=== PATIENT | male | born 1950 | race African-American/Black ===

== ENCOUNTER 2016-10-20 20:08 | Emergency (ER) | payer MEDICARE, MEDICAID ==
[2016-10-20 20:37] VITALS: BP 167/85
--- NOTE | 2016-10-20 22:05 | ED ---
Throat Pain/Nasal Congestion - HPI Summary HPI Summary: 66 y/o male with multiple comorbities as documented including renal failure presents with dry, itchy "tight" eyes x 3-4 days. patient denies copious drainage, + mild watery drainage. + blurred vision, difficult to open eyes due to pain, itchy sensation. + periorbital dryness of skin. Denies prior occurrance, no new drugs/ medications. Recent fistula formation R wrist, no complications. No other symptoms. - History of Current Complaint Chief Complaint: EDEyeProblem Time Seen by Provider: 10/20/16 21:17 Hx Obtained From: Patient Onset/Duration: Gradual Onset, Lasting Days, Still Present, Worse Since - worsening over time - Allergies/Home Medications Allergies/Adverse Reactions: Allergies Allergy/AdvReac Type Severity Reaction Status Date / Time Aspirin Allergy Unknown See Comment Verified 09/24/16 13:02 Hydromorphone [From Dilaudid] AdvReac Intermediate Nausea And Verified 09/24/16 13:02 Vomiting PMH/Surg Hx/FS Hx/Imm Hx Previously Healthy: No Endocrine/Hematology History: Reports: Hx Blood Transfusions, Hx Sickle Cell Disease - Was told had sickle cell at one point but denies, Hx Anemia Denies: Hx Anticoagulant Therapy, Hx Bone Marrow Disease, Hx Diabetes, Hx Thyroid Disease Cardiovascular History: Reports: Hx Angina, Hx Congestive Heart Failure, Hx Coronary Artery Disease, Hx Hypercholesterolemia, Hx Hypertension, Hx Peripheral Vascular Disease, Hx Syncope, Hx Valvular Heart Disease, Other Cardiovascular Problems/Disorders - IDDM W/DIALYSIS 3XPER WK Denies: Hx Cardiomegaly, Hx Pacemaker/ICD, Hx Rheumatic Fever Respiratory History: Reports: Hx Asthma, Hx Chronic Obstructive Pulmonary Disease (COPD), Hx Pleural Effusion, Hx Pneumonia, Other Respiratory Problems/ Disorders - SOB Denies: Hx Pulmonary Edema, Hx Pulmonary Embolism, Hx Sleep Apnea GI History: Reports: Hx Cirrhosis, Hx Ulcer, Other GI Disorders - peptic ulcer Denies: Hx Crohn's Disease, Hx Gastroesophageal Reflux Disease, Hx Hiatal Hernia, Hx Irritable Bowel, Hx Jaundice History: Reports: Hx Acute Renal Failure, Hx Chronic Renal Failure, Hx Dialysis, Hx Renal Disease - ON DIALYSIS, Other Problems/Disorders - end stage renal disease, on dialysis Denies: Hx Kidney Infection, Hx Kidney Stones Musculoskeletal History: Reports: Hx Arthritis, Hx Back Problems - chronic pain , Hx Orthopedic Injury Denies: Hx Rheumatoid Arthritis, Hx Bursitis, Hx Tendonitis, Other Musculoskeletal History Sensory History: Reports: Hx Contacts or Glasses, Hx Glaucoma, Hx Vision Problem Denies: Hx Cataracts Opthamlomology History: Reports: Hx Contacts or Glasses, Hx Glaucoma, Hx Vision Problem Denies: Hx Cataracts Neurological History: Reports: Hx Headaches, Hx Migraine, Other Neuro Impairments/Disorders - depression Denies: Hx Dementia, Hx Seizures Psychiatric History: Reports: Hx Anxiety, Hx Depression Denies: Hx Eating Disorder, Hx Panic Disorder, Hx of Violent Episodes Against Others, Hx Substance Abuse - Cancer History Hx Chemotherapy: No Hx Radiation Therapy: No Hx Palliative Cancer Treatment: No - Surgical History Surgery Procedure, Year, and Place: HERNIA REPAIR 2012. APPENDECTOMY 2000. LEFT ARM AV FISTULA/CAD - REMOVED. CABG 1 vessel, mitral & tricuspid valve repair March 02, 2014 AT [facility] CONDITIONAL 5 UPTO 3T. POWER PORT. Mitral and tricuspid valve repair Hx Anesthesia Reactions: No - Immunization History Date of Tetanus Vaccine: Unkown Date of Influenza Vaccine: 2015 Infectious Disease History: Yes Infectious Disease History: Reports: Hx Hepatitis, Hx of Known/Suspected MRSA - blood culture, thoracentesis, History Other Infectious Disease - Hepatitis C Denies: Hx Clostridium Difficile, Hx Human Immunodeficiency Virus (HIV), Hx Shingles, Hx Tuberculosis, Hx Known/Suspected VRE, Hx Known/Suspected VRSA, Traveled Outside the in Last 30 Days - Family History Known Family History: Positive: None, Cardiac Disease Family History: R & N/C - Social History Alcohol Use: None Alcohol Amount: former EtOH abuse Hx Substance Use: Yes Substance Use Type: Reports: Marijuana Substance Use Comment - Amount & Last Used: every day smokes one joint to help with back pain Hx Tobacco Use: Yes Smoking Status (MU): Former Smoker Type: Cigarettes Review of Systems Constitutional: Negative Positive: Photophobia, Blurred Vision, Drainage, Erythema ENT: Negative Cardiovascular: Negative Respiratory: Negative Gastrointestinal: Negative Genitourinary: Negative Musculoskeletal: Negative Skin: Negative Neurological: Negative Psychological: Normal All Other Systems Reviewed And Are Negative: Yes Physical Exam - Summary Physical Exam Summary: MCKAY PEN- 10 r EYE, 13 l EYE Fluroscein staining- negative B/L fundoscopic examination- minld AV nicking, no hemmorage, no papillodema Triage Information Reviewed: Yes Vital Signs On Initial Exam: Initial Vitals Temp Pulse Resp BP Pulse Ox 100 F 96 18 167/85 99 10/20/16 20:33 10/20/16 20:33 10/20/16 20:33 10/20/16 20:33 10/20/16 20:33 Vital Signs Reviewed: Yes Appearance: Positive: Well-Appearing, Well-Nourished, Pain Distress - mild Skin: Positive: Warm, Skin Color Reflects Adequate Perfusion Head/Face: Positive: Normal Head/Face Inspection Eyes: Positive: EOMI, KINGS, Conjunctiva Inflammed - diffuse bilateraly ENT: Positive: Hearing grossly normal Neck: Positive: Supple, Nontender, No Lymphadenopathy Diagnostics - Vital Signs Vital Signs Temp Pulse Resp BP Pulse Ox 10/20/16 20:33 100 F 96 18 167/85 99 - Laboratory Lab Statement: Any lab studies that have been ordered have been reviewed, and results considered in the medical decision making process. EENT Course/Dx - Course Course Of Treatment: negative fundo, fluro, mckay pen examination. Discussed with maged Call viral vs allergic conjunctivitis, tx with antihistamines ophtl. due to comorbitities and ophtl. ketoralac. Patient symptoms greatly inproved with medications, vision not blurred. Follow up with PCP within 2-3 days return to ER if symptoms return. - Differential Diagnoses Differential Diagnoses: Allergic Rhinitis, Glaucoma, Keratitis, Other - glaucoma - Diagnoses Provider Diagnoses: Conjunctivitis of both eyes Discharge - Discharge Plan Condition: Improved Disposition: HOME Prescriptions: Azelastine 0.05% (OPHTH)(NF) [Optivar 0.05% (NF)] 1 drop BOTH EYES BID #1 btl Ketorolac Tromethamine (Ophth) [Acuvail] 0.45 % OP Q8H PRN #1 woodrow PRN Reason: pain Patient Education Materials: Conjunctivitis (ED) Referrals: Octaviano Pratt MD [Primary Care Provider] - Additional Instructions: - Continue to use eye drops as directed - If symptoms worsen return to ER of follow up with primary physician - saline solution eye drops as needed for dry eye
[2016-10-21] MEDS ORDERED: KETOROLAC 0.4% BOTH EYES SCH (09:00)
[2016-10-21] MEDS ORDERED: Azelastine 0.05% (OPHTH)(NF) 6 ML BTL BOTH EYES SCH (09:00)
== END 2016-10-20 22:58 | disposition home or self-care (01) ==
LOC: ED 20:08
DX: H10.9 Unspecified conjunctivitis (principal); H53.149 Visual discomfort, unspecified; H53.8 Other visual disturbances; L53.9 Erythematous condition, unspecified; Z86.79 Personal history of other diseases of the circulatory system; Z87.09 Personal history of other diseases of the respiratory system; Z87.891 Personal history of nicotine dependence
CPT/HCPCS: 99282

== ENCOUNTER 2016-11-10 16:31 | Emergency (ER) | payer MEDICARE, MEDICAID ==
--- NOTE | 2016-11-10 17:29 | RAD ---
INDICATION: Short of breath COMPARISON: September 12, 2016 TECHNIQUE: An AP portable view obtained at 1725 hours is submitted. FINDINGS: Bones/Soft Tissues: There are no acute bony findings. There is sternotomy. There is a left-sided cardiac pacemaker. There is a double-lumen right-sided central venous catheter Cardiomediastinal: The cardiac silhouette is mildly prominent. Lungs: There is bibasilar airspace disease with small bilateral pleural effusions with worsening.. Pleura: Small bilateral pleural effusions as noted above.. Other: None IMPRESSION: BIBASILAR AIRSPACE DISEASE WITH SMALL BILATERAL PLEURAL EFFUSIONS. SUGGEST FOLLOW-UP.
[2016-11-10] MEDS ORDERED: hydrALAZINE IV* 20 MG/ML VIAL IV SLOW PU ONE (17:31)
[2016-11-10] MEDS ORDERED: Lisinopril TAB* 10 MG PO ONE (17:32)
[2016-11-10] MEDS ORDERED: Morphine INJ* 10 MG/ML 1 ML CARPUJECT IV ONE (17:32)
[2016-11-10 17:41] LABS: Hematocrit 23 % (42-52); Hemoglobin 7.3 g/dl (14.0-18.0); Mean Corpuscular HGB Conc 32 g/dl (31-36); Mean Corpuscular Hemoglobin 29 pg (27-31); Mean Corpuscular Volume 92 fL (80-94); Mean Platelet Volume 9 um3 (7.4-10.4); Red Cell Distribution Width 17 % (10.5-15); White Blood Count 3.6 10^3/ul (3.5-10.8)
[2016-11-10 17:53] LABS: Albumin 4.1 g/dL (3.2-5.2); BUN/Creatinine Ratio 3.8 (8-20); Calcium 8.9 mg/dL (8.6-10.3); EGFR African American 10.4 (>60); EGFR Non-African American 8.1 (>60); Globulin 3.6 g/dL (2-4); Potassium 4.4 mmol/L (3.5-5.0); Total Bilirubin 0.6 mg/dL (0.2-1.0); Total Protein 7.7 g/dL (6.4-8.9)
[2016-11-10 17:58] LABS: Troponin I 0.05 ng/mL (<0.04)
--- NOTE | 2016-11-10 19:09 | RAD ---
INDICATION: Pain and swelling. Right arm swelling. COMPARISON: None TECHNIQUE: Duplex interrogation of the upperextremity was performed. FINDINGS: Deep veins: The visualized jugular, visualized subclavian, axillary, brachial, radial, and ulnar veins are patent excluding deep venous thrombosis. There is normal compressibility, augmentation, and phasic flow. Superficial veins: There is thrombosis in the cephalic vein. This appears echogenic and may be chronic. The basilic vein is patent. Popliteal fossa:There is no evidence of a popliteal cyst. Soft tissues:There are no soft tissue abnormalities. Other: There is a new radial artery crossover dialysis fistula at the level of the wrist. The entire fistula is not interrogated. IMPRESSION: NO EVIDENCE OF DEEP VENOUS THROMBOSIS. ACUTE VERSUS CHRONIC SUPERFICIAL THROMBOPHLEBITIS.
[2016-11-10 20:03] VITALS: BP 164/112
[2016-11-10] MEDS ORDERED: Meclizine TAB* 12.5 MG PO ONE (20:26)
--- NOTE | 2016-11-10 21:46 | ED ---
Robbin Briones Michael, scribed for Favian Escalona MD on 11/10/16 at 1845 . HPI Chest Pain - HPI Summary HPI Summary: Prior records reviewed consolation with Dr. Messer February 2015 prior cardiac hx was reviewed in detail. CABG 2013 [facility] and cardiac catheterization february 2015. He had multiple admissions for chest pain. 66 y/o male was BIBA to the ED presenting with intermittent episodes of sharp chest pain that started today at 0900. The pt rates the chest pain as a 9 out of 10 on a pain assessment scale. The pain is aggravated with coughing and radiates to the right radial flank. He also c/o SOB, calf swelling and pain, migraine, fatigue, and photophobia. The pt denies bilat UE pain and jaw pain. The PMHx is significant for migraines and HTN. - History of Current Complaint Chief Complaint: EDChestPainROMI Time Seen by Provider: 11/10/16 16:50 Hx Obtained From: Patient, EMS, Medical Records Onset/Duration: Started Hours Ago, Still Present Timing: Intermittent Initial Severity: Moderate Current Severity: Moderate Pain Intensity: 7 Pain Scale Used: 0-10 Numeric Chest Pain Radiates: Yes Chest Pain Radiates To:: Flank Character: Sharp/Stabbing Aggravating Factor(s): Other: - coughing Alleviating Factor(s): Nothing Associated Signs and Symptoms: Positive: Negative - bilat UE pain. jaw pain., Chest Pain, Shortness of Breath, Calf Pain/Swelling, Other: - migraine. fatigue. photophobia. - Additional Pertinent History Primary Care Physician: [id number] - Allergy/Home Medications Allergies/Adverse Reactions: Allergies Allergy/AdvReac Type Severity Reaction Status Date / Time Aspirin Allergy Unknown See Comment Verified 09/24/16 13:02 Hydromorphone [From Dilaudid] AdvReac Intermediate Nausea And Verified 09/24/16 13:02 Vomiting PMH/Surg Hx/FS Hx/Imm Hx Endocrine/Hematology History: Reports: Hx Blood Transfusions, Hx Sickle Cell Disease - Was told had sickle cell at one point but denies, Hx Anemia Denies: Hx Anticoagulant Therapy, Hx Bone Marrow Disease, Hx Diabetes, Hx Thyroid Disease Cardiovascular History: Reports: Hx Angina, Hx Congestive Heart Failure, Hx Coronary Artery Disease, Hx Hypercholesterolemia, Hx Hypertension, Hx Peripheral Vascular Disease, Hx Syncope, Hx Valvular Heart Disease, Other Cardiovascular Problems/Disorders - IDDM W/DIALYSIS 3XPER WK Denies: Hx Cardiomegaly, Hx Pacemaker/ICD, Hx Rheumatic Fever Respiratory History: Reports: Hx Asthma, Hx Chronic Obstructive Pulmonary Disease (COPD), Hx Pleural Effusion, Hx Pneumonia, Other Respiratory Problems/ Disorders - SOB Denies: Hx Pulmonary Edema, Hx Pulmonary Embolism, Hx Sleep Apnea GI History: Reports: Hx Cirrhosis, Hx Ulcer, Other GI Disorders - peptic ulcer Denies: Hx Crohn's Disease, Hx Gastroesophageal Reflux Disease, Hx Hiatal Hernia, Hx Irritable Bowel, Hx Jaundice History: Reports: Hx Acute Renal Failure, Hx Chronic Renal Failure, Hx Dialysis, Hx Renal Disease - ON DIALYSIS, Other Problems/Disorders - end stage renal disease, on dialysis Denies: Hx Kidney Infection, Hx Kidney Stones Musculoskeletal History: Reports: Hx Arthritis, Hx Back Problems - chronic pain , Hx Orthopedic Injury Denies: Hx Rheumatoid Arthritis, Hx Bursitis, Hx Tendonitis, Other Musculoskeletal History Sensory History: Reports: Hx Contacts or Glasses, Hx Glaucoma, Hx Vision Problem Denies: Hx Cataracts Opthamlomology History: Reports: Hx Contacts or Glasses, Hx Glaucoma, Hx Vision Problem Denies: Hx Cataracts Neurological History: Reports: Hx Headaches, Hx Migraine, Other Neuro Impairments/Disorders - depression Denies: Hx Dementia, Hx Seizures Psychiatric History: Reports: Hx Anxiety, Hx Depression Denies: Hx Eating Disorder, Hx Panic Disorder, Hx of Violent Episodes Against Others, Hx Substance Abuse - Cancer History Hx Chemotherapy: No Hx Radiation Therapy: No Hx Palliative Cancer Treatment: No - Surgical History Surgery Procedure, Year, and Place: HERNIA REPAIR 2012. APPENDECTOMY 2000. LEFT ARM AV FISTULA/CAD - REMOVED. CABG 1 vessel, mitral & tricuspid valve repair March 02, 2014 AT [facility] CONDITIONAL 5 UPTO 3T. POWER PORT. Mitral and tricuspid valve repair Hx Anesthesia Reactions: No - Immunization History Date of Tetanus Vaccine: Unkown Date of Influenza Vaccine: 2015 Infectious Disease History: Yes Infectious Disease History: Reports: Hx Hepatitis, Hx of Known/Suspected MRSA - blood culture, thoracentesis, History Other Infectious Disease - Hepatitis C Denies: Hx Clostridium Difficile, Hx Human Immunodeficiency Virus (HIV), Hx Shingles, Hx Tuberculosis, Hx Known/Suspected VRE, Hx Known/Suspected VRSA, Traveled Outside the [place] in Last 30 Days - Family History Known Family History: Positive: Cardiac Disease, Hypertension, Other - CVA - Social History Occupation: Disabled Lives: Alone Alcohol Use: None Alcohol Amount: former EtOH abuse Hx Substance Use: Yes Substance Use Type: Reports: Marijuana Substance Use Comment - Amount & Last Used: every day smokes one joint to help with back pain Hx Tobacco Use: Yes Smoking Status (MU): Former Smoker Type: Cigarettes Review of Systems Positive: Fatigue. Negative: Fever Positive: Photophobia Positive: Chest Pain Positive: Shortness Of Breath Positive: Edema - calf and calf pain Neurological: Other - migraine All Other Systems Reviewed And Are Negative: Yes Physical Exam - Summary Physical Exam Summary: General: Comfortable, pleasant, alert HEENT: Moist mucosa Neck: soft, supple, no adenopathy, no edema Heart: S1, S2, RRR, no murmurs, rubs, or gallops Lungs: Clear to auscultation, breathing comfortable, no wheezes or rales Abdominal: Soft, flat, nontender Extremities: non pinning edema, diffuse right arm swelling-no erythema and not hot no calf tenderness Neuro: Alert and oriented x 3 Psych: Logical, coherent Triage Information Reviewed: Yes Vital Signs On Initial Exam: Initial Vitals Temp Pulse Resp BP Pulse Ox 98.7 F 87 20 166/115 100 11/10/16 16:50 11/10/16 16:50 11/10/16 16:50 11/10/16 16:50 11/10/16 16:50 Vital Signs Reviewed: Yes - [place] Coma Scale Coma Scale Total: 15 Diagnostics - Vital Signs Vital Signs Temp Pulse Resp BP Pulse Ox 11/10/16 17:06 88 20 166/115 100 11/10/16 17:00 88 24 100 11/10/16 16:51 91 21 100 11/10/16 16:50 98.7 F 87 20 166/115 100 - Laboratory Lab Results: Lab Results 11/10/16 11/10/16 Range/Units 16:55 16:55 WBC 3.6 (3.5-10.8) 10^3/ul RBC 2.50 L (4.0-5.4) 10^6/ul Hgb 7.3 L (14.0-18.0) g/dl Hct 23 L (42-52) % MCV 92 (80-94) fL MCH 29 (27-31) pg MCHC 32 (31-36) g/dl RDW 17 H (10.5-15) % Plt Count 112 L (150-450) 10^3/ul MPV 9 (7.4-10.4) um3 Neut % (Auto) 67.3 (38-83) % Lymph % (Auto) 15.5 L (25-47) % Fleming % (Auto) 14.9 H (1-9) % Eos % (Auto) 1.0 (0-6) % Baso % (Auto) 1.3 (0-2) % Absolute Neuts (auto) 2.4 (1.5-7.7) 10^3/ul Absolute Lymphs (auto) 0.6 L (1.0-4.8) 10^3/ul Absolute Monos (auto) 0.5 (0-0.8) 10^3/ul Absolute Eos (auto) 0 (0-0.6) 10^3/ul Absolute Basos (auto) 0 (0-0.2) 10^3/ul Absolute Nucleated RBC 0.01 10^3/ul Nucleated RBC % 0.2 Sodium 136 (133-145) mmol/L Potassium 4.4 (3.5-5.0) mmol/L Chloride 93 L (101-111) mmol/L Carbon Dioxide 35 H (22-32) mmol/L Anion Gap 8 (2-11) mmol/L BUN 26 H (6-24) mg/dL Creatinine 6.93 H (0.67-1.17) mg/dL Est GFR ( Amer) 10.4 (>60) Est GFR (Non-Af Amer) 8.1 (>60) BUN/Creatinine Ratio 3.8 L (8-20) Glucose 95 (70-100) mg/dL Calcium 8.9 (8.6-10.3) mg/dL Total Bilirubin 0.60 (0.2-1.0) mg/dL AST 29 (13-39) U/L ALT 13 (7-52) U/L Alkaline Phosphatase 81 (34-104) U/L Troponin I 0.05 H* (<0.04) ng/mL Total Protein 7.7 (6.4-8.9) g/dL Albumin 4.1 (3.2-5.2) g/dL Globulin 3.6 (2-4) g/dL Albumin/Globulin Ratio 1.1 (1-3) Result Diagrams: 11/10/16 16:55 11/10/16 16:55 Lab Statement: Any lab studies that have been ordered have been reviewed, and results considered in the medical decision making process. - Radiology CXR Xray Interpretation: Positive (See Comments) - BIBASILAR AIRSPACE DISEASE WITH SMALL BILATERAL PLEURAL EFFUSIONS. SUGGEST FOLLOW-UP. Radiology Interpretation Completed By: Radiologist - EKG EKG EKG Interpretation: lateral leads T wave inversion. Consistent with mulitple EKGs in past EKG 1706 EKG Interpretation: EKG is unchanged from previous on 11/10/16 - Additional Comments Diagnostic Additional Comments: Venous Doppler Study: Radiologist: NO EVIDENCE OF DEEP VENOUS THROMBOSIS. ACUTE VERSUS CHRONIC SUPERFICIAL THROMBOPHLEBITIS. Chest Pain Course/Dx - Course Assessment/Plan: presents with right diffuse chest pain and upon further exam and questioning there is diffuse muscular pain. Tender across most of his chest. Two EKGs and two Troponin were unchanged. He is safe for discharge and will follow up with PCP. He presents hypertensive and we are treating but states he is compliant with meds. - Chest Pain Differential Diagnosis/HQI/PQRI: Acute NC, Angina, Aortic Aneurysm, CHF, Lower Respiratory Infection, Pulmonary Edema, Pulmonary Embolism - Diagnoses Provider Diagnoses: Chest pain, HTN (hypertension) Discharge - Discharge Plan Condition: Good Disposition: HOME Patient Education Materials: Chest Wall Pain (ED) Referrals: Octaviano Pratt MD [Primary Care Provider] - The documentation as recorded by the Robbin casey Michael accurately reflects the service I personally performed and the decisions made by me, Favian Escalona MD.
== END 2016-11-10 21:38 | disposition home or self-care (01) ==
LOC: ED 16:31
DX: R07.9 Chest pain, unspecified (principal); I10 Essential (primary) hypertension; R06.02 Shortness of breath; M79.606 Pain in leg, unspecified; M79.89 Other specified soft tissue disorders
CPT/HCPCS: 36415; 71010; 80053; 84484; 85025; 93005; 96374; 96375; 99282; A9270-GY; J0360; J2270

== ENCOUNTER 2016-11-12 10:20 | Inpatient (IN) | payer MEDICARE, MEDICAID ==
[2016-11-12] MEDS ORDERED: Morphine INJ* 4 MG/ML 1 ML CARPUJECT IV ONE (10:29)
[2016-11-12] MEDS ORDERED: Ondansetron INJ* 2 MG/ML VIAL IV ONE (10:30)
[2016-11-12 10:41] LABS: Hematocrit 26 % (42-52); Hemoglobin 8.4 g/dl (14.0-18.0); Mean Corpuscular HGB Conc 32 g/dl (31-36); Mean Corpuscular Hemoglobin 30 pg (27-31); Mean Corpuscular Volume 92 fL (80-94); Mean Platelet Volume 8 um3 (7.4-10.4); Red Blood Count 2.84 10^6/ul (4.0-5.4); Red Cell Distribution Width 17 % (10.5-15); White Blood Count 5.2 10^3/ul (3.5-10.8)
[2016-11-12 11:07] LABS: Troponin I 0.05 ng/mL (<0.04)
--- NOTE | 2016-11-12 11:17 | RAD ---
Indication: Chest pain. Single frontal view of the chest performed at 1045 hours was reviewed. Comparison is made with previous exam dated November 10, 2016. Cardiomegaly is noted. Interstitial edema consistent with fracture congestion is noted. Likely bibasilar atelectasis and small pleural effusions are noted. Overall no changes noted since November 10, 2016. No pneumothorax is noted. IMPRESSION: CARDIOMEGALY AND INTERSTITIAL EDEMA WITHOUT SIGNIFICANT CHANGE SINCE NOVEMBER 10, 2016. BIBASILAR ATELECTASIS AND PLEURAL EFFUSIONS ARE NOTED.
[2016-11-12 11:30] LABS: Total Bilirubin 0.7 mg/dL (0.2-1.0)
[2016-11-12 11:34] LABS: Albumin 4.5 g/dL (3.2-5.2); BUN/Creatinine Ratio 3.2 (8-20); Calcium 9.6 mg/dL (8.6-10.3); EGFR African American 20.7 (>60); EGFR Non-African American 16.1 (>60); Globulin 4.4 g/dL (2-4); Magnesium 2.2 mg/dL (1.9-2.7); Potassium 3.7 mmol/L (3.5-5.0); Total Protein 8.9 g/dL (6.4-8.9)
[2016-11-12 11:40] LABS: TSH (Thyroid Stimulating Horm) 2.89 mcIU/mL (0.34-5.60)
[2016-11-12] MEDS ORDERED: Ondansetron INJ* 2 MG/ML VIAL IV PRN (12:51)
[2016-11-12] MEDS ORDERED: Acetaminophen TAB* 325 MG PO PRN (12:51)
[2016-11-12] MEDS ORDERED: Morphine VIAL* 10 MG/ML 1 ML VIAL IV ONE (13:34)
[2016-11-12] MEDS ORDERED: Zolpidem TAB* 10 MG PO PRN (13:39)
[2016-11-12] MEDS ORDERED: Cyclobenzaprine TAB* 10 MG PO PRN (13:39)
[2016-11-12] MEDS ORDERED: LORazepam TAB(*) 0.5 MG PO PRN (13:39)
[2016-11-12] MEDS ORDERED: Morphine INJ* 4 MG/ML 1 ML CARPUJECT ONE (13:41)
[2016-11-12] MEDS ORDERED: hydrALAZINE IV* 20 MG/ML VIAL IV SLOW PU ONE (15:45)
[2016-11-12] MEDS: Gabapentin CAP(*) 300 MG PO SCH ×2 (16:02→21:07)
[2016-11-12] MEDS: hydrALAZINE TAB* 25 MG PO SCH ×2 (16:03→21:01)
[2016-11-12] MEDS: Calcium Acetate CAP* 667 MG PO SCH ×3 (16:03→21:03)
[2016-11-12] MEDS: Morphine INJ* 2 MG/ML 1 ML CARPUJECT IV PRN ×2 (16:04→20:56)
[2016-11-12] MEDS: Pancrelipase CAP* 5,000 UNITS CAP PO SCH ×3 (16:33→21:04)
[2016-11-12] MEDS: Heparin VIAL(*) 5000 UNITS/ML VIAL (FIVE THOUSAND) SUBCUT SCH ×2 (16:33→21:19)
--- NOTE | 2016-11-12 18:51 | HP ---
ADMISSION HISTORY AND PHYSICAL: DATE OF ADMISSION: 11/12/16 PRIMARY CARE PROVIDER: Dr. Octaviano Pratt. PANEL GLUER: Dr. Dalal. ATTENDING PROVIDER: Erwin Alejandra MD *(DICTATED BY ELEAZAR RUSSELL) CHIEF COMPLAINT: Syncope. HISTORY OF PRESENT ILLNESS: This is a 66-year-old gentleman with history of end - stage renal disease, on hemodialysis 3 times weekly, as well as hypertension, coronary artery disease, peripheral vascular disease, GERD, hepatitis C, anemia , and ischemic cardiomyopathy with last ejection fraction estimated at 35% to 40 %, who was transferred to the emergency department following his dialysis session earlier today. The patient got up after dialysis and was found down on the ground by one of the nurses who initiated CPR. The patient regained consciousness and does not fully remember all of the details. He reports that over the last couple of weeks, he has had decreased exercise tolerance, increased shortness of breath, intermittent lower extremity swelling, and subjective feeling of leg weakness. He reports chronic orthopnea and has been having intermittent chest pain. He is unable to state whether this occurs with just exercise or rest; it seems to be sporadic. The patient states that he had similar symptoms experiencing a syncopal episode after hemodialysis approximately 9 months ago, but he was apparently at home at that time and spent a considerable amount of time on the floor before he was transported to the emergency department. The patient feels that most likely his weakness in his legs that caused his fall. He does not recall any chest pain or difficulty breathing during his dialysis session. Review of his prior admissions shows that he has had frequent admissions for fluid overload after generally associated with missing dialysis. His last admission as such was August 03 of this past year. 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 PAST MEDICAL HISTORY: 1. End-stage renal disease, on hemodialysis 3 times weekly. 2. Hypertension. 3. Coronary artery disease, status post CABG. 4. Peripheral vascular disease. 5. GERD. 6. Hepatitis C. 7. Anemia. PAST SURGICAL HISTORY: 1. CABG. 2. Mitral valve and tricuspid valve repairs. 3. Appendectomy. HOME MEDICATIONS: 1. Acetaminophen 650 mg p.o. q.4 hours as needed for pain. 2. PhosLo capsules 3335 mg p.o. t.i.d. with meals. 3. Albuterol sulfate 2 puffs inhaled q.4 hours as needed for shortness of breath. 4. Nebulized albuterol. 5. Astelin 0.05% ophthalmic drop, 1 drop in both eyes twice daily. 6. Vitamin B complex with folic acid 1 tablet p.o. daily. 7. Carvedilol 25 mg p.o. b.i.d. 8. Sensipar 30 mg p.o. daily. 9. Flexeril 5 mg p.o. t.i.d. as needed. 10. Duloxetine 30 mg p.o. daily. 11. Diclofenac gel 1% applied topically twice daily as needed for pain. 12. Docusate 100 mg p.o. b.i.d. 13. Lexapro 10 mg p.o. daily. 14. Famotidine 20 mg p.o. daily. 15. Folic acid 0.5 mg p.o. daily. 16. Furosemide 20 mg p.o. daily. 17. Gabapentin 300 mg p.o. t.i.d. 18. Iron sucrose 100 mg IV q.2 weeks with dialysis. 19. Ketorolac ophthalmic solution 0.45% 1 drop in each eye every 8 hours as needed. 20. Lorazepam 0.5 mg p.o. twice daily as needed for anxiety. 21. Lisinopril 10 mg p.o. daily. 22. Amitiza 24 mcg p.o. b.i.d. 23. Meclizine 25 mg p.o. q.8 hours p.r.n. dizziness. 24. Nitroglycerin 0.4 mg sublingual q.5 minutes as needed for chest pain. 25. Omeprazole 40 mg p.o. b.i.d. 26. Ondansetron 4 mg p.o. q.8 hours as needed for nausea. 27. Oxycodone 15 mg p.o. q.4 hours as needed for pain. 28. Creon 12,000 units p.o. four times a day with meals. 29. Zantac 150 mg p.o. daily. 30. Simethicone 80 mg p.o. q.6 hours as needed. 31. Simvastatin 5 mg p.o. daily. 32. Sucroferric oxyhydroxide 2000 mg p.o. with meals. 33. Zolpidem 10 mg p.o. at bedtime. 34. Amlodipine 10 mg p.o. daily. 35. Hydralazine 25 mg p.o. t.i.d. SOCIAL HISTORY: The patient is a former smoker. Denies any regular alcohol consumption. He is currently living alone, but feels that he requires 24-hour assistance. REVIEW OF SYSTEMS: As noted above in HPI, otherwise negative. PHYSICAL EXAMINATION GENERAL: This is a middle-aged gentleman, who appears slightly older than his stated age who was quite anxious upon entering the room complaining of shortness of breath with very high respiratory rate as well as chest pain. Symptoms resolved with application of oxygen via nasal cannula just at 2 L. VITAL SIGNS: Initial vitals show a temperature of 98.9 degrees Fahrenheit, pulse 109 beats per minute, respiratory rate 16 per minute, oxygen saturation 95% on room air, and blood pressure 183/113 mmHg. HEENT: Head is normocephalic, atraumatic. Mucous membranes are pink and moist. RESPIRATORY: Lungs are clear to auscultation without wheezes, crackles, or rhonchi. CARDIOVASCULAR: There is a trace murmur appreciated but heart has regular rate and rhythm. ABDOMEN: Soft and nontender to palpation. EXTREMITIES: No lower extremity edema. PSYCH: The patient is alert and appropriately oriented, but appears to be anxious. DIAGNOSTIC STUDIES/LAB DATA: White blood cell count 5200, hemoglobin 8.4 g/dL, platelet count of 144,000. INR 1.38. PTT of 38.1. Comprehensive metabolic panel shows sodium of 134 mmol/L, potassium 3.7 mmol/L, serum bicarb of 30, BUN of 12, creatinine of 3.8, and estimated GFR of 16. Glucose of 81. Lactic acid 1.2. Magnesium 2.2. Transaminases and total bilirubin within normal limits. Troponin is 0.05. TSH of 2.89. Imaging: EKG shows sinus rhythm, meets voltage criteria for LVH. Chest x-ray shows cardiomegaly and interstitial edema without significant change when compared to last chest x-ray from 2 days ago, bibasilar atelectasis , and pleural effusions are also noted. Review of echocardiogram from August of 2015 shows left ventricular ejection fraction of 35% to 40% with depressed right ventricular function as well as mild -to- moderate mitral regurg. ASSESSMENT AND PLAN: This is a 66-year-old gentleman with extensive medical history including end-stage renal disease, on hemodialysis 3 times weekly; as well as coronary artery disease, status post coronary artery bypass graft and percutaneous coronary intervention; hypertension, peripheral vascular disease; gastroesophageal reflux disease; hepatitis C; anemia, who experienced what sounds to be a syncopal event after dialysis, although chest compressions were initiated in a short period of time. 1. Syncope - this seems very unlikely to be a sudden cardiac arrest. Lactic acid is within normal limits perfusion was maintained throughout even with adequate chest compressions, this seems to be quite unlikely. It is more likely that he experienced some acute syncopal event which may have just been due to hypovolemic state or fluid shift following dialysis. 2. Complaints of decreased exercise tolerance, lower extremity edema, and intermittent chest pain - the patient's acute chest pain is most likely due to the chest compressions that he received but it is difficult to tell whether he was having chest pain prior to a syncopal event, although this does not seem to be the case. With these complaints though and his known cardiomyopathy, I would recommend repeating an echocardiogram and nuclear stress test. We will cycle troponins and maintain continuous telemetry monitoring. 3. End-stage renal disease, on hemodialysis 3 times weekly, completed earlier today. 4. Coronary artery disease, status post coronary artery bypass graft and percutaneous coronary intervention. 5. Peripheral vascular disease. 6. Hepatitis C with what appears to be chronic liver failure based on chronically elevated INRs and thrombocytopenia as well as chronic anemia, but that could also be related to his kidney disease as well. 7. Hypertension - continue home antihypertensives. He is acutely hypertensive in the emergency department as well. 8. Chronic anemia - hemoglobin over the last couple of days has been lower than what seems to be his baseline. No obvious signs of bleeding and he is hypertensive rather than hypotensive making a bleeding episode much less likely. We will check stool for Hemoccult blood, however. 9. Peripheral vascular disease - continue statin and aspirin. 10. Chronic pain - continue home opiates. 11. Code status - the patient is full code. 12. DVT prophylaxis - will be with heparin 5000 units q.8 hours. 13. Healthcare proxy is the patient's brother, Enrique Templeton. DISPOSITION: The patient is being admitted to observation for what sounds to be a syncopal event with complaints of chest pain. Anticipate discharge tomorrow. We will request a Social Work consult as well as he does seem to have some concerns about his current housing situation. Perhaps, he would be better suited in a long- term care facility depending on what is chronic needs are. ELEAZAR RUSSELL CC: Dr. Octaviano Pratt; Dr. Dalal * [id number]/[facility] #: [id number] MTDD
[2016-11-12] MEDS: oxyCODONE TAB* 5 MG TAB PO PRN (18:54)
[2016-11-12] MEDS: Carvedilol TAB* 25 MG PO SCH (21:05)
[2016-11-12] MEDS: Omeprazole CAP* 20 MG PO SCH (21:06)
[2016-11-12] MEDS: Docusate CAP* 100 MG PO SCH (21:19)
[2016-11-13] MEDS: Heparin VIAL(*) 5000 UNITS/ML VIAL (FIVE THOUSAND) SUBCUT SCH ×3 (05:57→22:00)
[2016-11-13 06:09] LABS: Hematocrit 22 % (42-52); Hemoglobin 6.9 g/dl (14.0-18.0); Mean Corpuscular HGB Conc 32 g/dl (31-36); Mean Corpuscular Hemoglobin 29 pg (27-31); Mean Corpuscular Volume 92 fL (80-94); Mean Platelet Volume 9 um3 (7.4-10.4); Red Blood Count 2.34 10^6/ul (4.0-5.4); Red Cell Distribution Width 17 % (10.5-15); White Blood Count 4.1 10^3/ul (3.5-10.8)
[2016-11-13 06:12] LABS: Add Diff/Slide Review? Slide Review Added; Comments Flag Yes
[2016-11-13 06:31] LABS: BUN/Creatinine Ratio 2.9 (8-20); Calcium 8.5 mg/dL (8.6-10.3); EGFR African American 11.5 (>60); Potassium 4.6 mmol/L (3.5-5.0)
[2016-11-13] MEDS: Pancrelipase CAP* 5,000 UNITS CAP PO SCH ×4 (07:21→21:40)
[2016-11-13] MEDS: oxyCODONE TAB* 5 MG TAB PO PRN ×2 (07:29→17:41)
[2016-11-13] MEDS: Omeprazole CAP* 20 MG PO SCH ×2 (07:30→21:41)
[2016-11-13] MEDS: DULoxetine DR CAP* 30 MG CAP.DR PO SCH (07:30)
[2016-11-13] MEDS: Citalopram TAB* 20 MG PO SCH (07:31)
[2016-11-13] MEDS: CMC:Simvastatin TAB(NF) 10 MG TAB PO SCH (07:31)
[2016-11-13] MEDS: Famotidine TAB* 20 MG PO SCH (07:32)
[2016-11-13] MEDS: Docusate CAP* 100 MG PO SCH ×2 (07:32→21:41)
[2016-11-13] MEDS: Folic Acid TAB* 1 MG PO SCH (07:33)
[2016-11-13] MEDS ORDERED: Magnesium Hydroxide LIQ* 30 ML UDC PO ONE (08:34)
[2016-11-13] MEDS: Calcium Acetate CAP* 667 MG PO SCH ×3 (09:53→21:42)
[2016-11-13] MEDS: Gabapentin CAP(*) 300 MG PO SCH ×3 (10:00→21:41)
[2016-11-13] MEDS: Lisinopril TAB* 10 MG PO SCH (10:01)
--- NOTE | 2016-11-13 11:40 | PN ---
Subjective Date of Service: 11/13/16 Interval History: Pt feels weak ever time he gets off dialysis. would prefer to have someone at home to "check on him and to have someone at home to cook for him". Doesn't like meals on wheels. Refused evaluation for rehab. Left sided CP had been ongoing x 3 weeks. C/o chronic rectal bleeding due to hemorrhoids Objective Active Medications: Acetaminophen (Tylenol Tab*) 650 mg PO Q4H PRN PRN Reason: FEVER/PAIN Amlodipine Besylate (Norvasc Tab*) 10 mg PO DAILY [facility] Calcium Acetate (Phoslo Cap*) 3,335 mg PO TID [facility] Last Admin: 11/13/16 09:53 Dose: Not Given Carvedilol (Coreg Tab*) 25 mg PO BID [facility] Last Admin: 11/12/16 21:05 Dose: 25 mg Cinacalcet (Sensipar Tab*) 30 mg PO DAILY [facility] Citalopram Hydrobromide (Celexa Tab*) 20 mg PO DAILY [facility] Last Admin: 11/13/16 07:31 Dose: 20 mg Cyclobenzaprine HCl (Flexeril Tab*) 5 mg PO TID PRN PRN Reason: SPASMS Docusate Sodium (Colace Cap*) 100 mg PO BID [facility] Last Admin: 11/13/16 07:32 Dose: 100 mg Duloxetine HCl (Cymbalta Cap*) 30 mg PO QAM [facility] Last Admin: 11/13/16 07:30 Dose: 30 mg Famotidine (Pepcid Tab*) 20 mg PO DAILY [facility] Last Admin: 11/13/16 07:32 Dose: 20 mg Folic Acid (Folvite Tab*) 0.5 mg PO DAILY [facility] Last Admin: 11/13/16 07:33 Dose: 0.5 mg Furosemide (Lasix Tab*) 20 mg PO DAILY [facility] Gabapentin (Neurontin Cap(*)) 300 mg PO TID [facility] Last Admin: 11/12/16 21:07 Dose: 300 mg Heparin Sodium (Porcine) (Heparin Vial(*)) 5,000 units SUBCUT Q8HR [facility] Last Admin: 11/13/16 05:57 Dose: Not Given Hydralazine HCl (Apresoline Tab*) 25 mg PO TID [facility] Last Admin: 11/12/16 21:01 Dose: 25 mg Lisinopril (Prinivil Tab*) 10 mg PO DAILY [facility] Last Admin: 11/13/16 10:01 Dose: 10 mg Lorazepam (Ativan Tab(*)) 0.5 mg PO BID PRN PRN Reason: ANXIETY Morphine Sulfate (Morphine Inj (Syringe)*) 2 mg IV Q4H PRN PRN Reason: PAIN Last Admin: 11/12/16 20:56 Dose: 2 mg Omeprazole (Prilosec Cap*) 40 mg PO BID [facility] Last Admin: 11/13/16 07:30 Dose: 40 mg Ondansetron HCl (Zofran Inj*) 4 mg IV Q4H PRN PRN Reason: NAUSEA/VOMITING Last Admin: 11/13/16 10:20 Dose: 4 mg Oxycodone HCl (Roxycodone Tab*) 15 mg PO Q4HR PRN PRN Reason: PAIN Last Admin: 11/13/16 07:29 Dose: 15 mg Pancrelipase (Zenpep Delayed Cap*) 10,000 units PO QID WITH FOOD [facility] Last Admin: 11/13/16 07:21 Dose: Not Given Simvastatin (Zocor(Nf)) 5 mg PO DAILY [facility] Last Admin: 11/13/16 07:31 Dose: 5 mg Zolpidem Tartrate (Ambien Tab*) 10 mg PO BEDTIME PRN PRN Reason: INSOMNIA Vital Signs 11/12/16 11/12/16 11/12/16 13:42 13:56 14:02 Temperature Pulse Rate 96 Respiratory 18 24 20 Rate Blood Pressure (mmHg) O2 Sat by Pulse 100 Oximetry 11/12/16 11/12/16 11/12/16 14:03 14:04 14:05 Temperature Pulse Rate 94 94 94 Respiratory 13 15 14 Rate Blood Pressure (mmHg) O2 Sat by Pulse 100 100 100 Oximetry 11/12/16 11/12/16 11/12/16 14:06 14:07 14:08 Temperature Pulse Rate 93 93 92 Respiratory 15 23 18 Rate Blood Pressure (mmHg) O2 Sat by Pulse 100 100 100 Oximetry 11/12/16 11/12/16 11/12/16 14:09 14:10 14:11 Temperature Pulse Rate 91 91 92 Respiratory 16 15 16 Rate Blood Pressure (mmHg) O2 Sat by Pulse 100 100 99 Oximetry 01/25/17 01/25/17 01/25/17 14:12 14:13 14:14 Temperature Pulse Rate 92 90 Respiratory 16 24 21 Rate Blood Pressure (mmHg) O2 Sat by Pulse 100 100 Oximetry 11/12/16 11/12/16 11/12/16 14:15 14:16 14:17 Temperature Pulse Rate 92 92 92 Respiratory 19 18 20 Rate Blood Pressure (mmHg) O2 Sat by Pulse 100 100 100 Oximetry 11/12/16 11/12/16 11/12/16 14:18 14:19 14:20 Temperature Pulse Rate 91 91 91 Respiratory 17 18 19 Rate Blood Pressure (mmHg) O2 Sat by Pulse 100 100 100 Oximetry 11/12/16 11/12/16 11/12/16 14:21 14:22 14:23 Temperature Pulse Rate 90 90 90 Respiratory 19 14 13 Rate Blood Pressure (mmHg) O2 Sat by Pulse 100 100 100 Oximetry 11/12/16 11/12/16 11/12/16 14:24 14:25 14:26 Temperature Pulse Rate 91 91 90 Respiratory 14 20 16 Rate Blood Pressure (mmHg) O2 Sat by Pulse 99 100 100 Oximetry 11/12/16 11/12/16 11/12/16 14:27 14:28 14:29 Temperature Pulse Rate 89 91 90 Respiratory 14 22 16 Rate Blood Pressure (mmHg) O2 Sat by Pulse 100 100 100 Oximetry 11/12/16 11/12/16 11/12/16 14:30 14:31 14:32 Temperature Pulse Rate 91 91 91 Respiratory 17 19 15 Rate Blood Pressure (mmHg) O2 Sat by Pulse 100 100 100 Oximetry 11/12/16 11/12/16 11/12/16 14:33 14:34 14:35 Temperature Pulse Rate 91 92 91 Respiratory 17 16 18 Rate Blood Pressure (mmHg) O2 Sat by Pulse 100 100 100 Oximetry 11/12/16 11/12/16 11/12/16 14:36 14:37 14:38 Temperature Pulse Rate 91 91 91 Respiratory 15 16 16 Rate Blood Pressure (mmHg) O2 Sat by Pulse 100 100 100 Oximetry 11/12/16 11/12/16 11/12/16 14:39 14:40 14:41 Temperature Pulse Rate 92 91 91 Respiratory 15 16 14 Rate Blood Pressure (mmHg) O2 Sat by Pulse 100 100 100 Oximetry 11/12/16 11/12/16 11/12/16 14:42 14:43 14:44 Temperature Pulse Rate 91 91 90 Respiratory 16 15 13 Rate Blood Pressure (mmHg) O2 Sat by Pulse 100 100 99 Oximetry 11/12/16 11/12/16 11/12/16 14:45 14:46 14:47 Temperature Pulse Rate 90 91 Respiratory 14 17 23 Rate Blood Pressure (mmHg) O2 Sat by Pulse 99 99 Oximetry 11/12/16 11/12/16 11/12/16 14:48 14:49 14:50 Temperature Pulse Rate 92 Respiratory 26 22 19 Rate Blood Pressure (mmHg) O2 Sat by Pulse 100 Oximetry 11/12/16 11/12/16 11/12/16 14:51 15:20 16:02 Temperature 98.4 F Pulse Rate 95 Respiratory 29 18 16 Rate Blood Pressure 188/126 (mmHg) O2 Sat by Pulse 95 Oximetry 11/12/16 11/12/16 11/12/16 16:04 17:04 18:02 Temperature Pulse Rate Respiratory 16 16 16 Rate Blood Pressure (mmHg) O2 Sat by Pulse Oximetry 11/12/16 11/12/16 11/12/16 18:54 19:32 19:45 Temperature 98.1 F Pulse Rate 90 88 Respiratory 16 17 Rate Blood Pressure 151/87 164/115 (mmHg) O2 Sat by Pulse 100 100 Oximetry 11/12/16 11/12/16 11/12/16 19:47 20:54 20:56 Temperature Pulse Rate 95 Respiratory 16 20 Rate Blood Pressure 170/110 (mmHg) O2 Sat by Pulse 95 Oximetry 11/12/16 11/12/16 11/12/16 21:07 21:56 23:07 Temperature Pulse Rate Respiratory 18 16 16 Rate Blood Pressure (mmHg) O2 Sat by Pulse Oximetry 11/13/16 11/13/16 11/13/16 00:16 04:41 07:18 Temperature 98.3 F 98.5 F 100.2 F Pulse Rate 78 79 82 Respiratory 20 20 20 Rate Blood Pressure 104/49 111/62 121/81 (mmHg) O2 Sat by Pulse 100 97 99 Oximetry 11/13/16 11/13/16 11/13/16 07:29 07:30 09:29 Temperature Pulse Rate Respiratory 16 16 16 Rate Blood Pressure (mmHg) O2 Sat by Pulse Oximetry 11/13/16 11/13/16 09:52 11:11 Temperature 99.3 F 99.6 F Pulse Rate 83 Respiratory 18 Rate Blood Pressure 139/105 145/95 (mmHg) O2 Sat by Pulse 100 Oximetry Result Diagrams: 11/13/16 05:26 11/13/16 05:26 Assess/Plan/Problems-Billing Assessment: 66 yo M with h/o ESRD, chronic pain, anxiety, , ICD placement, cardiomyopathy, mitral and tricuspid valve repair, MRSA bacteremia with negative PAKO in 2015 HTN, chronic hemorrhoidal/rectal bleeding, anemia presents with CP and syncope - Patient Problems (1) Pleuritic chest pain Comment: CTA shows no PE and small left pleural effusion that could be the source of the pain. Troponin of 0.05 is consistent with prior and chronic due to ESRD Echo shows unchanged EF of 40% Pain is not related to exercise. EKG shows progression of LVH and partial RBBB (2) ICD (implantable cardioverter-defibrillator) in place Comment: asked Dr. Messer to fill preop ICD information (3) Hemorrhoids with complication Comment: pt c/o chronic rectal bleed due to hemorrhoids. Dr. Finch consulted. Planned to OR in aM. Pt is medially optimized for the anticipated procedure. Plan to cont Coreg periop. (4) Anemia Comment: due to ESRD and blood loss as above-chronic with worsening today and Hb down to 6 Will transfuse 1 U PRBC (5) ESRF (end stage renal failure) Comment: Dialysis tomorrow post op (6) Syncope Comment: ICD interrogation ordered Suspect orthostasis post dialysis (7) Aortic valve calcification Comment: appears new, 0.9 cm. pt is non toxic appearing and has no symptoms of infection. will check ESR and CRP. OI suspect the lesion may be related to dystrophic calcification in pt with ESRD and MRSA bacteremia in 2014 will d/c Dr. Messer who is reviewing Echo. (8) Hypertension Comment: normotensive- cont carvedilol (9) DVT prophylaxis Comment: SCD's, no anticoagulation in light of ongoing rectal bleed Status and Disposition: OBV
--- NOTE | 2016-11-13 11:41 | ECHO ---
Patient: MARILYN GRANADOS [facility] Rec#: [id number] : 1950 Date: 11/13/2016 Age: 66y Height: 170.2 cm / 67.0 in Weight: 72.6 kg / 160.0 lbs Sex: M BSA: 1.84 Room#: 440 Admit Date#: 11/12/2016 Type: Inpatient Referring: Boogie Quinones Reading: Jonna Marques MD Clinical Therapist: Bety Fountain Clinical Therapist: Felecia Cardenas RN RDCS CC: Octaviano Pratt MD Transthoracic Echocardiogram Indication: Syncope BP: 121/81 HR: 81 Rhythm: NSR Findings History: S/P MV and TV repair, pacemaker, CAD, CABG, HTN, PVD, anemia, former smoker, ESRD, dialysis, Hep C. Technical Comments: The study quality is good. Completed at 0920. Left Ventricle: The left ventricular chamber size is normal. Moderate to severe concentric left ventricular hypertrophy is observed. There is moderately decreased left ventricular systolic function. The estimated ejection fraction is 40-45%. Ventricular septal wall motion has a post-operative appearance. The left ventricular diastolic filling pattern is consistent with pseudonormalization. Left Atrium: The left atrium is severely dilated. Right Ventricle: The right ventricle is moderately dilated. The right ventricular global systolic function is moderately reduced. A pacemaker wire is visualized in the right ventricle. Right Atrium: The right atrium is mildly dilated. A pacemaker wire is visualized in the right atrium. Aortic Valve: The aortic valve is trileaflet. The aortic valve leaflets are mildly thickened. There is trace to mild aortic regurgitation. There is no evidence of aortic stenosis. A mass is visualized on the aortic valve which appears consistent with a vegetation.0.9 x 0.9 cm, calcified well circumscribed on NCC, possible marantic lesion but vegetation or other etiology possible. Mitral Valve: There is moderate mitral regurgitation. There is no evidence of mitral stenosis. Mitral valve repair functioning abnormally. Tricuspid Valve: There is mild to moderate tricuspid regurgitation. There is evidence of mild to moderate pulmonary hypertension. There is no tricuspid stenosis. Tricuspid valve repair is functioning normally. Pulmonic Valve: The pulmonic valve appears normal. There is moderate pulmonic regurgitation. There is no pulmonic stenosis. Pericardium: There is a small pericardial effusion. The pericardial effusion is seen adjacent to the left ventricle. Aorta: There is mild dilatation of the ascending aorta. There is no dilatation of the aortic arch. There is mild dilatation of the aortic root. Pulmonary Artery: The main pulmonary artery appears normal. Venous: The inferior vena cava appears normal in size. There is an approximate 50% respiratory change in the inferior vena cava dimension. Conclusions Moderate to severe concentric left ventricular hypertrophy is observed. Global hypokinesis with septal dysychrony, estimated ejection fraction is 40%. The left ventricular diastolic filling pattern is consistent with pseudonormalization. The right ventricular global systolic function is moderately reduced and chamber diameter is moderately dilated.. Calcific aortic valve sclerosis with trace to mild aortic regurgitation. A calcified mass is visualized on the NCC of the aortic valve noted. See text. Mitral valve s/p repair with moderate mitral regurgitation. There is mild to moderate tricuspid regurgitation. There is evidence of mild to moderate pulmonary hypertension: 46 mmHg. There is moderate pulmonic regurgitation. There is mild dilatation of the ascending aorta: 3.6 cm. Compared with prior PAKO of 09/06/15, ventricular function not significantly changed, calcific aortic valve sclerosis noted but mass on NCC is newly described. The degree of MR and TR have increased. Aorta diameter previously 3.8 cm. Measurements Name Value Normal Range RVDdMajor (2D) 5.2 cm (2.2 - 4.4) RAd ISD 4CH 5.7 cm (3.4 - 4.9) RA (A4C)W 5.1 cm (2.9 - 4.6) IVSd (2D) 1.7 cm (0.6 - 1) LVPWd (2D) 1.4 cm (0.6 - 1) LVIDd (2D) 4.9 cm (3.6 - 5.4) LVIDs (2D) 3.8 cm - LV FS (2D) 23.4 % (25 - 45) Aortic Annulus 2.3 cm (1.4 - 2.6) Ao root diameter (2D) 3.6 cm (2.1 - 3.5) Ascending Ao 3.6 cm (2.1 - 3.4) Aortic arch 2.9 cm (1.8 - 3.4) LA dimension (AP) 2D 4.9 cm (2.3 - 3.8) LAd ISD 4CH 5.9 cm (2.9 - 5.3) LA ISD 4CH W 6.2 cm (2.5 - 4.5) Name Value Normal Range LA ESV SP 4CH (A/L) 108 ml - LA ESV SP 2CH (A/L) 86 ml - LA ESV BP (A/L) 98 ml - LA ESV BP (A/L) index 53 ml/m2 - LA ESV SP 4CH (MOD) 96 ml - LA ESV SP 2CH (MOD) 82 ml - Name Value Normal Range MV E-wave Vmax 1.5 m/sec - MV deceleration time 211 msec - MV A-wave Vmax 0.63 m/sec - MV E:A ratio 2.4 ratio - LV septal e' Vmax 0.04 m/sec - LV lateral e' Vmax 0.05 m/sec - LV E:e' septal ratio 37.5 ratio - LV E:e' lateral ratio 30 ratio - Name Value Normal Range AV Vmax 1.1 m/sec - AV VTI 20.7 cm - AV peak gradient 5.1 mmHg - AV mean gradient 4 mmHg - LVOT diameter 2.4 cm - LVOT Vmax 0.96 m/sec - LVOT VTI 15.7 cm - DAXA (continuity Vmax) 3.9 cm2 - DAXA (continuity VTI) 3.4 cm2 - Name Value Normal Range MV Vmax 1.6 m/sec - MV VTI 35 cm - MV peak gradient 10.5 mmHg - MV mean gradient 3.7 mmHg - MV PHT 60 msec - MVA (PHT) 3.7 cm2 - MVA (continuity VTI) 2 cm2 - Name Value Normal Range TV Vmax 0.82 m/sec - TV VTI 18.3 cm - TV peak gradient 2.68 mmHg - TV mean gradient 1.41 mmHg - TR Vmax 3.1 m/sec - TR peak gradient 38 mmHg - RAP 8 mmHg - RVSP 46 mmHg - IVC diameter 1.6 cm - Name Value Normal Range PV Vmax 0.83 m/sec - PV peak gradient 2.8 mmHg -
--- NOTE | 2016-11-13 12:11 | RAD ---
HISTORY: Chest pain, syncope, coronary disease COMPARISONS: None relevant TECHNIQUE: A 1 day rest myocardial perfusion study was performed. The stress portion was canceled by the referring physician. No CT attenuation correction was performed secondary to patient physical immobility DOSE: Rest: Technetium 99m tetrofosmin, 10.8 millicuries, injected at 9:44 AM on November 13, 2016 FINDINGS: PERFUSION: There is a moderate to large area of photopenia of the lateral wall OTHER: None IMPRESSION: LIMITED STUDY CONSISTING OF REST IMAGES ONLY DEMONSTRATES A MODERATE TO LARGE AREA OF HYPOPERFUSION OF THE LATERAL WALL.
[2016-11-13] MEDS: Morphine INJ* 2 MG/ML 1 ML CARPUJECT IV PRN ×2 (12:25→21:55)
[2016-11-13] MEDS: hydrALAZINE TAB* 25 MG PO SCH ×3 (13:29→21:41)
[2016-11-13] MEDS ORDERED: Iodixanol* (CONTRAST) 320 MG/ML 100 ML SDV IV ONE (13:48)
--- NOTE | 2016-11-13 14:39 | RAD ---
Indication: Evaluate for pulmonary emboli. CTA of the chest performed after IV contrast administration. Administered 70.9 ml of VISIPAQUE 320 mgi/ml was given according to hospital protocol. Coronal and sagittal reconstructed images were obtained. The pulmonary arterial tree is well opacified. No filling defects are noted to suggest pulmonary embolus. The heart is enlarged without evidence of pericardial effusion. The trachea and major bronchi appear patent. Bilateral pleural effusions are noted worse on the left than on the right. Atelectasis is noted in the left lung base. The mediastinum demonstrates no mediastinal or hilar adenopathy. Interstitial edema consistent with vascular congestion is noted. The liver is enlarged. No dilated loops of bowel are noted. IMPRESSION: NO EVIDENCE OF PULMONARY EMBOLUS IS NOTED. LEFT PLEURAL EFFUSION WITH LEFT BASILAR ATELECTASIS. CARDIOMEGALY WITHOUT EVIDENCE OF PERICARDIAL EFFUSION.
[2016-11-13] MEDS ORDERED: Iodixanol* (CONTRAST) 320 MG/ML 100 ML SDV IV SCH (15:00)
[2016-11-13] MEDS: Carvedilol TAB* 25 MG PO SCH ×2 (15:37→21:41)
[2016-11-13] MEDS: Cinacalcet TAB* 30 MG PO SCH (15:37)
[2016-11-13] MEDS: amLODIPine TAB* 5 MG PO SCH (15:37)
[2016-11-13] MEDS: Furosemide TAB* 20 MG PO SCH (15:37)
--- NOTE | 2016-11-13 15:59 | ED ---
Magnus Briones Karl, scribed for Zain Templeton MD on 11/12/16 at 1043 . HPI Chest Pain - HPI Summary HPI Summary: Pt is a 66 y/o male that presents to the ED c/o CP post syncopal event. Pt was reportedly here for a dialysis treatment earlier this morning and was found soon after unconscious/unresponsive in a hospital hallway. Pt reported in room that he is suffering from CP, mild SOB, and bilateral leg weakness. - History of Current Complaint Time Seen by Provider: 11/12/16 10:24 Hx Obtained From: Patient Onset/Duration: Started Minutes Ago, Still Present Timing: Constant Initial Severity: Moderate Current Severity: Moderate Pain Intensity: 10 - CP Pain Scale Used: 0-10 Numeric Chest Pain Location: Diffuse Aggravating Factor(s): Nothing Alleviating Factor(s): Nothing Associated Signs and Symptoms: Positive: Chest Pain, Weakness - bilateral legs, Shortness of Breath - Additional Pertinent History Primary Care Physician: [id number] - Allergy/Home Medications Allergies/Adverse Reactions: Allergies Allergy/AdvReac Type Severity Reaction Status Date / Time Aspirin Allergy Unknown See Comment Verified 09/24/16 13:02 Hydromorphone [From Dilaudid] AdvReac Intermediate Nausea And Verified 09/24/16 13:02 Vomiting Home Medications: Home Medications Ketorolac Tromethamine (Ophth) [Acuvail] 0.45 % OPHTHALMIC Q8H PRN 11/12/16 [ History Confirmed 11/12/16] PMH/Surg Hx/FS Hx/Imm Hx Endocrine/Hematology History: Reports: Hx Blood Transfusions, Hx Sickle Cell Disease - Was told had sickle cell at one point but denies, Hx Anemia Denies: Hx Anticoagulant Therapy, Hx Bone Marrow Disease, Hx Diabetes, Hx Thyroid Disease Cardiovascular History: Reports: Hx Angina, Hx Congestive Heart Failure, Hx Coronary Artery Disease, Hx Hypercholesterolemia, Hx Hypertension, Hx Peripheral Vascular Disease, Hx Syncope, Hx Valvular Heart Disease, Other Cardiovascular Problems/Disorders - IDDM W/DIALYSIS 3XPER WK Denies: Hx Cardiomegaly, Hx Pacemaker/ICD, Hx Rheumatic Fever Respiratory History: Reports: Hx Asthma, Hx Chronic Obstructive Pulmonary Disease (COPD), Hx Pleural Effusion, Hx Pneumonia, Other Respiratory Problems/ Disorders - SOB Denies: Hx Pulmonary Edema, Hx Pulmonary Embolism, Hx Sleep Apnea GI History: Reports: Hx Cirrhosis, Hx Ulcer, Other GI Disorders - peptic ulcer Denies: Hx Crohn's Disease, Hx Gastroesophageal Reflux Disease, Hx Hiatal Hernia, Hx Irritable Bowel, Hx Jaundice History: Reports: Hx Acute Renal Failure, Hx Chronic Renal Failure, Hx Dialysis, Hx Renal Disease - ON DIALYSIS, Other Problems/Disorders - end stage renal disease, on dialysis Denies: Hx Kidney Infection, Hx Kidney Stones Musculoskeletal History: Reports: Hx Arthritis, Hx Back Problems - chronic pain , Hx Orthopedic Injury Denies: Hx Rheumatoid Arthritis, Hx Bursitis, Hx Tendonitis, Other Musculoskeletal History Sensory History: Reports: Hx Contacts or Glasses, Hx Glaucoma, Hx Vision Problem Denies: Hx Cataracts Opthamlomology History: Reports: Hx Contacts or Glasses, Hx Glaucoma, Hx Vision Problem Denies: Hx Cataracts Neurological History: Reports: Hx Headaches, Hx Migraine, Other Neuro Impairments/Disorders - depression Denies: Hx Dementia, Hx Seizures Psychiatric History: Reports: Hx Anxiety, Hx Depression Denies: Hx Eating Disorder, Hx Panic Disorder, Hx of Violent Episodes Against Others, Hx Substance Abuse - Cancer History Hx Chemotherapy: No Hx Radiation Therapy: No Hx Palliative Cancer Treatment: No - Surgical History Surgery Procedure, Year, and Place: HERNIA REPAIR 2012. APPENDECTOMY 2000. LEFT ARM AV FISTULA/CAD - REMOVED. CABG 1 vessel, mitral & tricuspid valve repair March 02, 2014 AT [facility] CONDITIONAL 5 UPTO 3T. POWER PORT. Mitral and tricuspid valve repair Hx Anesthesia Reactions: No - Immunization History Date of Tetanus Vaccine: Unkown Date of Influenza Vaccine: 2015 Infectious Disease History: Reports: Hx Hepatitis, Hx of Known/Suspected MRSA - blood culture, thoracentesis, History Other Infectious Disease - Hepatitis C Denies: Hx Clostridium Difficile, Hx Human Immunodeficiency Virus (HIV), Hx Shingles, Hx Tuberculosis, Hx Known/Suspected VRE, Hx Known/Suspected VRSA - Family History Known Family History: Positive: Cardiac Disease, Hypertension, Other - CVA - Social History Alcohol Use: None Alcohol Amount: former EtOH abuse Hx Substance Use: Yes Substance Use Type: Reports: Marijuana Substance Use Comment - Amount & Last Used: every day smokes one joint to help with back pain Hx Tobacco Use: Yes Smoking Status (MU): Former Smoker Type: Cigarettes Review of Systems Constitutional: Negative Eyes: Negative ENT: Negative Positive: Chest Pain Positive: Shortness Of Breath - mild Gastrointestinal: Negative Genitourinary: Negative Musculoskeletal: Negative Skin: Negative Positive: Weakness - legs bilaterally, Syncope Psychological: Normal All Other Systems Reviewed And Are Negative: Yes Physical Exam Triage Information Reviewed: Yes Vital Signs On Initial Exam: Initial Vital Signs Temp 98.9 F 11/12/16 10:35 Pulse 109 11/12/16 10:35 Resp 16 11/12/16 10:35 BP 00/00 11/12/16 10:35 Pulse Ox 95 11/12/16 10:35 Vital Signs Reviewed: Yes Appearance: Positive: Well-Appearing, Pain Distress Skin: Positive: Warm, Skin Color Reflects Adequate Perfusion, Dry Head/Face: Positive: Normal Head/Face Inspection Eyes: Positive: Normal ENT: Positive: Normal ENT inspection Neck: Positive: Supple, Nontender Respiratory/Lung Sounds: Positive: Clear to Auscultation, Breath Sounds Present Cardiovascular: Positive: Tachycardia - at 109 bpm, Other - strong pulses in all extremities Abdomen Description: Positive: Nontender, Soft Bowel Sounds: Positive: Present Musculoskeletal: Positive: Normal Neurological: Positive: Normal Psychiatric: Positive: Normal, Affect/Mood Appropriate Diagnostics - Vital Signs Vital Signs Temp Pulse Resp BP Pulse Ox 11/12/16 10:47 99.5 F 96 23 183/113 96 11/12/16 10:43 20 11/12/16 10:35 98.9 F 109 16 183/113 95 - Laboratory Lab Results: Lab Results 11/12/16 11/12/16 11/12/16 Range/Units 10:30 10:30 10:30 WBC 5.2 (3.5-10.8) 10^3/ul RBC 2.84 L (4.0-5.4) 10^6/ul Hgb 8.4 L (14.0-18.0) g/dl Hct 26 L (42-52) % MCV 92 (80-94) fL MCH 30 (27-31) pg MCHC 32 (31-36) g/dl RDW 17 H (10.5-15) % Plt Count 144 L (150-450) 10^3/ul MPV 8 (7.4-10.4) um3 Neut % (Auto) 70.6 (38-83) % Lymph % (Auto) 14.0 L (25-47) % Rapides % (Auto) 13.5 H (1-9) % Eos % (Auto) 0.6 (0-6) % Baso % (Auto) 1.3 (0-2) % Absolute Neuts (auto) 3.7 (1.5-7.7) 10^3/ul Absolute Lymphs (auto) 0.7 L (1.0-4.8) 10^3/ul Absolute Monos (auto) 0.7 (0-0.8) 10^3/ul Absolute Eos (auto) 0 (0-0.6) 10^3/ul Absolute Basos (auto) 0.1 (0-0.2) 10^3/ul Absolute Nucleated RBC 0.01 10^3/ul Nucleated RBC % 0.1 INR (Anticoag Therapy) 1.38 H (0.89-1.11) APTT 38.1 H (26.0-36.3) seconds Sodium 134 (133-145) mmol/L Potassium 3.7 (3.5-5.0) mmol/L Chloride 93 L (101-111) mmol/L Carbon Dioxide 30 (22-32) mmol/L Anion Gap 11 (2-11) mmol/L BUN 12 (6-24) mg/dL Creatinine 3.80 H (0.67-1.17) mg/dL Est GFR ( Amer) 20.7 (>60) Est GFR (Non-Af Amer) 16.1 (>60) BUN/Creatinine Ratio 3.2 L (8-20) Glucose 81 (70-100) mg/dL Lactic Acid (0.5-2.0) mmol/L Calcium 9.6 (8.6-10.3) mg/dL Magnesium 2.2 (1.9-2.7) mg/dL Total Bilirubin 0.70 (0.2-1.0) mg/dL AST 35 (13-39) U/L ALT 8 (7-52) U/L Alkaline Phosphatase 81 (34-104) U/L Troponin I 0.05 H* (<0.04) ng/mL Total Protein 8.9 (6.4-8.9) g/dL Albumin 4.5 (3.2-5.2) g/dL Globulin 4.4 H (2-4) g/dL Albumin/Globulin Ratio 1.0 (1-3) TSH 2.89 (0.34-5.60) mcIU/mL 11/12/16 Range/Units 10:30 WBC (3.5-10.8) 10^3/ul RBC (4.0-5.4) 10^6/ul Hgb (14.0-18.0) g/dl Hct (42-52) % MCV (80-94) fL MCH (27-31) pg MCHC (31-36) g/dl RDW (10.5-15) % Plt Count (150-450) 10^3/ul MPV (7.4-10.4) um3 Neut % (Auto) (38-83) % Lymph % (Auto) (25-47) % Rapides % (Auto) (1-9) % Eos % (Auto) (0-6) % Baso % (Auto) (0-2) % Absolute Neuts (auto) (1.5-7.7) 10^3/ul Absolute Lymphs (auto) (1.0-4.8) 10^3/ul Absolute Monos (auto) (0-0.8) 10^3/ul Absolute Eos (auto) (0-0.6) 10^3/ul Absolute Basos (auto) (0-0.2) 10^3/ul Absolute Nucleated RBC 10^3/ul Nucleated RBC % INR (Anticoag Therapy) (0.89-1.11) APTT (26.0-36.3) seconds Sodium (133-145) mmol/L Potassium (3.5-5.0) mmol/L Chloride (101-111) mmol/L Carbon Dioxide (22-32) mmol/L Anion Gap (2-11) mmol/L BUN (6-24) mg/dL Creatinine (0.67-1.17) mg/dL Est GFR ( Amer) (>60) Est GFR (Non-Af Amer) (>60) BUN/Creatinine Ratio (8-20) Glucose (70-100) mg/dL Lactic Acid 1.2 (0.5-2.0) mmol/L Calcium (8.6-10.3) mg/dL Magnesium (1.9-2.7) mg/dL Total Bilirubin (0.2-1.0) mg/dL AST (13-39) U/L ALT (7-52) U/L Alkaline Phosphatase (34-104) U/L Troponin I (<0.04) ng/mL Total Protein (6.4-8.9) g/dL Albumin (3.2-5.2) g/dL Globulin (2-4) g/dL Albumin/Globulin Ratio (1-3) TSH (0.34-5.60) mcIU/mL Result Diagrams: 11/13/16 05:26 11/13/16 05:26 Lab Statement: Any lab studies that have been ordered have been reviewed, and results considered in the medical decision making process. - Radiology CXR Xray Interpretation: Positive (See Comments) Radiology Interpretation Completed By: Radiologist - IMPRESSION: CARDIOMEGALY AND INTERSTITIAL EDEMA WITHOUT SIGNIFICANT CHANGE SINCE NOVEMBER 10, 2016. BIBASILAR ATELECTASIS AND PLEURAL EFFUSIONS ARE NOTED. - EKG 10:18 Cardiac Rate: Tachycardia EKG Rhythm: Sinus Tachycardia - at 108 bpm EKG Interpretation: non-specific ST abnormalities, no change from prior EKG on 11/10/16 Chest Pain Course/Dx - Course Course Of Treatment: Mr. Pato Templeton had a syncopal episode in dialysis and was apparently unresponsive with out pulses briefly. He is C/O only of severe chest pain that is like the cp that he has frequently and leg weakness. His W/ U was negative here and he remained stable. A CTA of his aorta was considered although he has good pulses and a nontender abdomen but was deferred to inpatient W/U. - Diagnoses Provider Diagnoses: Syncope and collapse, Chest pain Discharge - Discharge Plan Condition: Stable Disposition: ADMITTED TO [facility] The documentation as recorded by the Magnus casey Karl accurately reflects the service I personally performed and the decisions made by , Zain Templeton MD.
[2016-11-13 17:07] LABS: Erythrocyte Sed Rate 22 mm/Hr (0-20)
[2016-11-14] MEDS: Heparin VIAL(*) 5000 UNITS/ML VIAL (FIVE THOUSAND) SUBCUT SCH ×3 (05:27→22:46)
[2016-11-14 06:11] LABS: Hematocrit 23 % (42-52); Hemoglobin 7.4 g/dl (14.0-18.0); Mean Corpuscular HGB Conc 32 g/dl (31-36); Mean Corpuscular Hemoglobin 29 pg (27-31); Mean Corpuscular Volume 91 fL (80-94); Mean Platelet Volume 9 um3 (7.4-10.4); Red Blood Count 2.52 10^6/ul (4.0-5.4); Red Cell Distribution Width 16 % (10.5-15); White Blood Count 4.2 10^3/ul (3.5-10.8)
[2016-11-14 06:38] LABS: BUN/Creatinine Ratio 3.5 (8-20); Calcium 8.5 mg/dL (8.6-10.3); EGFR African American 8.5 (>60); EGFR Non-African American 6.6 (>60); Potassium 5.3 mmol/L (3.5-5.0)
--- NOTE | 2016-11-14 07:55 | CONS ---
CC: Dr. Navarro; Dr. Dalal CARDIOLOGY CONSULTATION: DATE OF CONSULTATION: 11/13/16 PATIENT OF: Dr. Navarro and Dr. Dalal. CONSULTING PHYSICIAN: Dr. Marques. REASON FOR EVALUATION: Preoperative evaluation related to cardiac issues of abnormal echo, ICD, and abnormal stress test. HISTORY OF PRESENT ILLNESS: This is a very complex 66-year-old gentleman with a longstanding history of coronary artery disease, hypertension, peripheral vascular disease, end-stage renal disease. He was admitted yesterday with a syncopal episode after dialysis. He also reports that for the last 4 or 5 months, he thinks he is more short of breath, usually able to walk a block before getting short of breath. Of late, he has been getting short of breath and stopping several times in a block. He said he is also limited by cramping in his legs. He was admitted yesterday after standing up after dialysis and losing consciousness. His troponins have been mildly elevated but flat as in the past with troponins of 0.05, 0.05, and 0.04, which is consistent with previous. His EKG shows LVH with lateral ST-T changes similar to the previous in August, but slightly less pronounced T-wave inversions. He reports that he had sharp and achy chest pain, which is longstanding and is worse with taking deep breath. He does report he uses 4 pillows at home for comfort, but he is sleeping here at about 45 degrees and seems comfortable. He reports edema prior to admission, but that has resolved. After dialysis he also had a CT scan which did not show any pulmonary emboli. 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 Compared to PAKO of 09/06/16 it was felt to be similar. I did review the aortic valve which did appear to have a calcified lesion on the noncoronary cusp and perhaps was slightly less prominent due to the technique. PAST MEDICAL HISTORY: Includes end-stage renal disease, on dialysis. Hypertension, coronary artery disease, MR, anemia, depression, poorly- controlled hypertension. In January 2014, he underwent coronary bypass grafting, mitral valve and tricuspid valve repair. He had JAMES to the diagonal, hepatitis C, peripheral vascular disease, hyperlipidemia. PAST SURGICAL HISTORY: Includes appendectomy, tumor removed from his abdomen, and surgery in February 2014 which included a #32 three-dimensional ring annuloplasty as well as closure of two gaps of the posterior leaflet and tricuspid valve repair with a #30 Contour 3D band made by [employer], coronary bypass graft x1 from the JAMES to diagonal. His postop PAKO revealed competent mitral valve, no regurgitation, minimal TR, LV function preserved. Subsequently , he had an echocardiogram on May 10 with an EF of 50% to 55% with mild-to- moderate LVH, RV function was low normal, mild MR, and mild TR. He also had an ICD placed by Dr. Lei on 05/01/16; that was a [employer] device. ALLERGIES: Include ASPIRIN and HYDROMORPHONE. FAMILY HISTORY: No premature coronary artery disease in his family. His father in his 70s of unknown causes. SOCIAL HISTORY: He discontinued tobacco use in the past. He denies alcohol use. He was never , had seven children. Retired [employer]. REVIEW OF SYSTEMS: Review of systems times 10 was negative except as above. Medications: Please see his extensive medications listed in the MAR. PHYSICAL EXAM: He is a well-developed, well-nourished gentleman in no apparent distress. O2 sat is 100% on 2 L nasal cannula, pulse 78, blood pressure 116/ 94. No significant JVD. Carotids are 2+ without bruits. No cervical adenopathy. No thyromegaly. Atraumatic, normocephalic. Extraocular movements are intact. Sclerae anicteric. Cardiac Exam: S1, S2 with a 3/6 holosystolic murmur at the apex. PMI displaced laterally. Defibrillator site dry and intact. Skin turgor normal. Chest was clear. No CVAT. Abdomen: Bowel sounds present, nontender. Femoral pulses intact without bruits. Distal pulses intact. No edema. Motor strength 5/5 bilaterally. Deep tendon reflexes 2/4. Alert and oriented x3. Skin Exam: No obvious rashes. DIAGNOSTIC STUDIES/LAB DATA: Include the troponins of 0.05, 0.05, and 0.04. Sodium 135, potassium 4.6, BUN 18, creatinine 6.3. White count 4.1, hemoglobin 6.9, hematocrit 22, platelet count 133. Hematocrit is down from August when it was in the mid 30s. EKG revealed sinus rhythm with LVH and lateral ST-T changes, slightly less pronounced compared to August. IMPRESSION: My impression is that Mr. Templeton has multiple medical problems as outlined above and now had a syncopal episode after dialysis and is markedly anemic, attributed to hypotension/anemia . He is at increased risk for morbidity and mortality in a major operative procedure given his LV dysfunction , valvular dysfunction, and coronary artery disease. However, given his symptoms, which may be related to progressive anemia and a relatively low hemodynamic risk of the surgery, I have discussed the case with the patient and with Dr. Marques, and I have recommended proceeding with surgery. Specifically, I would recommend the followin. Would cautiously transfuse him as you are doing, watching for volume overload. 2. Given his anuric state, he may require dialysis to stabilize his volume status. 3. I reviewed the lesions on the aortic valve and they appear to be stable, old calcified lesions. I do not think he has an active process. It might be useful to have a baseline sed rate or CRP. 4. He had a nuclear stress test (resting images only, no stress) which revealed a new moderate to large lateral defect c/t 2015. If he fails to improve in terms of his shortness of breath after transfusion and obtain an euvolemic state, you might want to consider proceeding with the stress portion of the test to evaluate for ischemia. 5. At this point, I think we should try to manage him medically with correction of his bleeding diathesis with the hemorrhoid surgery and transfusion as you are doing. 6. His defibrillator is unlikely to sense the cautery given the remote location of the procedure; however, given his lack of ventricular tachycardia and the potential for ventricular tachycardia therapy for noise, I would recommend using a magnet over the defibrillator during the procedure. ADDENDUM: The pacemaker defibrillator was interrogated this afternoon; it shows adequate function. However, he did have five AF episodes, the longest of which was 10 minutes. This would increase his risk for cardioembolic event; however, given his anemia, renal failure, and bleeding problems, I think anticoagulation is relatively contraindicated at present. Further recommendations will depend on the clinical course. I recommend the patient follow up with Dr. Navarro as an outpatient after discharge. MEDICAL DECISION MAKING: Complex. addendum: nuclear resting study 11.13.16: moderate to large area of lateral hypoperfusion. [id number] #: [id number] MTDD
[2016-11-14] MEDS ORDERED: fentaNYL* 50 MCG/ML 2 ML VIAL (100 MCG VIAL) ONE (08:11)
[2016-11-14] MEDS ORDERED: Midazolam* 1 MG/ML 10 ML VIAL (10 MG) ONE (08:11)
[2016-11-14] MEDS ORDERED: KETAMINE HCL* 50 MG/ML 10 ML VIAL ONE (08:11)
[2016-11-14] MEDS ORDERED: Lidocaine 2% JELLY* 6 ML JELLY TOPICAL ONE (08:15)
[2016-11-14] MEDS ORDERED: Lidocaine 1% INJ* 10 MG/ML 30 ML SDV ONE (08:15)
[2016-11-14] MEDS ORDERED: Bupivacaine 0.5% W/EPI SDV* 30 ML VIAL ONE (08:15)
[2016-11-14] MEDS ORDERED: Flumazenil* 0.1 MG/ML 5 ML MDV ONE (09:36)
[2016-11-14] MEDS ORDERED: Metoprolol Tartrate IV* 1 MG/ML 5 ML VIAL ONE (09:46)
[2016-11-14] MEDS ORDERED: Propofol* 10 MG/ML 20 ML BTL IV PUSH ONE (09:46)
--- NOTE | 2016-11-14 09:53 | SURGPN ---
Brief Operative Note - Surgery Procedures: Procedures OPERATIVE REPORT PRE-OP: Rectal bleeding, anemia, internal hemorrhoids by history POST-OP: Same PROCEDURE: Anorectal exam under anesthesia with banding of two internal hemorrhoids, non-bleeding SURGEON: MD Austin ANESTHESIA:Local with MAC [place] ASST: none IVF: min EBL: min SPECIMEN:none DRAIN: none WOUND CLASS: N/A COMPLICATIONS: none TO PACU
[2016-11-14] MEDS ORDERED: Morphine INJ* 4 MG/ML 1 ML CARPUJECT IV ONE ×2 (10:35→23:15)
[2016-11-14] MEDS: Calcium Acetate CAP* 667 MG PO SCH ×3 (12:38→22:46)
[2016-11-14] MEDS: Citalopram TAB* 20 MG PO SCH (12:38)
[2016-11-14] MEDS: amLODIPine TAB* 5 MG PO SCH (12:38)
[2016-11-14] MEDS: Carvedilol TAB* 25 MG PO SCH ×2 (12:38→21:10)
[2016-11-14] MEDS: Cinacalcet TAB* 30 MG PO SCH (12:38)
[2016-11-14] MEDS: Pancrelipase CAP* 5,000 UNITS CAP PO SCH ×4 (12:38→22:46)
[2016-11-14] MEDS: Folic Acid TAB* 1 MG PO SCH (12:39)
[2016-11-14] MEDS: Docusate CAP* 100 MG PO SCH ×2 (12:39→22:49)
[2016-11-14] MEDS: hydrALAZINE TAB* 25 MG PO SCH ×3 (12:39→21:10)
[2016-11-14] MEDS: Lisinopril TAB* 10 MG PO SCH (12:39)
[2016-11-14] MEDS: Omeprazole CAP* 20 MG PO SCH ×2 (12:39→21:09)
[2016-11-14] MEDS: Furosemide TAB* 20 MG PO SCH (12:39)
[2016-11-14] MEDS: Gabapentin CAP(*) 300 MG PO SCH ×3 (12:39→21:09)
[2016-11-14] MEDS: Famotidine TAB* 20 MG PO SCH (12:39)
[2016-11-14] MEDS: DULoxetine DR CAP* 30 MG CAP.DR PO SCH (12:39)
[2016-11-14] MEDS: CMC:Simvastatin TAB(NF) 10 MG TAB PO SCH (12:40)
[2016-11-14] MEDS: Morphine INJ* 2 MG/ML 1 ML CARPUJECT IV PRN ×3 (13:50→21:06)
[2016-11-14] MEDS ORDERED: Epoetin Alfa* 20,000 UNITS/ML VIAL - TWENTY THOUSAND - SUBCUT ONE (15:00)
--- NOTE | 2016-11-14 16:26 | PN ---
Subjective Date of Service: 11/14/16 Interval History: Pt is seen post op during dialysis Objective Active Medications: Acetaminophen (Tylenol Tab*) 650 mg PO Q4H PRN PRN Reason: FEVER/PAIN Amlodipine Besylate (Norvasc Tab*) 10 mg PO DAILY [facility] Last Admin: 11/14/16 12:38 Dose: Not Given Calcium Acetate (Phoslo Cap*) 3,335 mg PO TID [facility] Last Admin: 11/14/16 14:47 Dose: Not Given Carvedilol (Coreg Tab*) 25 mg PO BID [facility] Last Admin: 11/14/16 12:38 Dose: Not Given Cinacalcet (Sensipar Tab*) 30 mg PO DAILY [facility] Last Admin: 11/14/16 12:38 Dose: Not Given Citalopram Hydrobromide (Celexa Tab*) 20 mg PO DAILY [facility] Last Admin: 11/14/16 12:38 Dose: Not Given Cyclobenzaprine HCl (Flexeril Tab*) 5 mg PO TID PRN PRN Reason: SPASMS Docusate Sodium (Colace Cap*) 100 mg PO BID [facility] Last Admin: 11/14/16 12:39 Dose: Not Given Duloxetine HCl (Cymbalta Cap*) 30 mg PO QAM [facility] Last Admin: 11/14/16 12:39 Dose: Not Given Famotidine (Pepcid Tab*) 20 mg PO DAILY [facility] Last Admin: 11/14/16 12:39 Dose: Not Given Folic Acid (Folvite Tab*) 0.5 mg PO DAILY [facility] Last Admin: 11/14/16 12:39 Dose: Not Given Furosemide (Lasix Tab*) 20 mg PO DAILY [facility] Last Admin: 11/14/16 12:39 Dose: Not Given Gabapentin (Neurontin Cap(*)) 300 mg PO TID [facility] Last Admin: 11/14/16 14:47 Dose: Not Given Heparin Sodium (Porcine) (Heparin Vial(*)) 5,000 units SUBCUT Q8HR [facility] Last Admin: 11/14/16 14:47 Dose: Not Given Hydralazine HCl (Apresoline Tab*) 25 mg PO TID [facility] Last Admin: 11/14/16 14:47 Dose: Not Given Iodixanol (Visipaque* 320 (Contrast)) 71 ml IV ONCE [facility] Stop: 11/15/16 23:59 Lisinopril (Prinivil Tab*) 10 mg PO DAILY [facility] Last Admin: 11/14/16 12:39 Dose: Not Given Lorazepam (Ativan Tab(*)) 0.5 mg PO BID PRN PRN Reason: ANXIETY Morphine Sulfate (Morphine Inj (Syringe)*) 2 mg IV Q4H PRN PRN Reason: PAIN Last Admin: 11/14/16 13:50 Dose: 2 mg Omeprazole (Prilosec Cap*) 40 mg PO BID [facility] Last Admin: 11/14/16 12:39 Dose: Not Given Ondansetron HCl (Zofran Inj*) 4 mg IV Q4H PRN PRN Reason: NAUSEA/VOMITING Last Admin: 11/13/16 10:20 Dose: 4 mg Oxycodone HCl (Roxycodone Tab*) 15 mg PO Q4HR PRN PRN Reason: PAIN Last Admin: 11/13/16 17:41 Dose: 15 mg Pancrelipase (Zenpep Delayed Cap*) 10,000 units PO QID WITH FOOD [facility] Last Admin: 11/14/16 12:50 Dose: Not Given Simvastatin (Zocor(Nf)) 5 mg PO DAILY [facility] Last Admin: 11/14/16 12:40 Dose: Not Given Zolpidem Tartrate (Ambien Tab*) 10 mg PO BEDTIME PRN PRN Reason: INSOMNIA Vital Signs 11/14/16 11/14/16 11/14/16 10:05 10:15 10:30 Temperature Pulse Rate 73 74 69 Respiratory 14 14 14 Rate Blood Pressure 163/98 170/98 174/98 (mmHg) O2 Sat by Pulse 100 100 100 Oximetry 11/14/16 11/14/16 11/14/16 10:45 11:00 11:15 Temperature Pulse Rate 70 69 66 Respiratory 14 14 14 Rate Blood Pressure 168/96 162/94 172/93 (mmHg) O2 Sat by Pulse 100 100 100 Oximetry 11/14/16 11/14/16 11/14/16 11:30 11:45 12:41 Temperature 97.6 F Pulse Rate 66 67 70 Respiratory 14 14 18 Rate Blood Pressure 162/96 162/96 150/112 (mmHg) O2 Sat by Pulse 100 100 100 Oximetry 11/14/16 13:50 Temperature Pulse Rate Respiratory 18 Rate Blood Pressure (mmHg) O2 Sat by Pulse Oximetry Oxygen Devices in Use Now: Simple Face Mask Appearance: 66 yo M in nAd, aAox3 Eyes: No Scleral Icterus, PERRLA Ears/Nose/Mouth/Throat: NL Teeth, Lips, Gums, Mucous Membranes Moist Neck: NL Appearance and Movements; NL JVP, Trachea Midline Respiratory: Symmetrical Chest Expansion and Respiratory Effort, Clear to Auscultation Cardiovascular: NL Sounds; No Murmurs; No JVD, RRR Abdominal: - - soft, mild tenderness diffuse, no rebound, no guarding Lymphatic: No Cervical Adenopathy Extremities: No Edema, No Clubbing, Cyanosis, - - R wrist HD fistula Skin: No Rash or Ulcers, No Nodules or Sclerosis, - - R subclavian HD cath in use Neurological: Alert and Oriented x 3, NL Muscle Strength and Tone Result Diagrams: 11/14/16 05:07 11/14/16 05:07 Additional Lab and Data: Lab Results 11/12/16 11/12/16 11/12/16 Range/Units 10:30 10:30 10:30 WBC 5.2 (3.5-10.8) 10^3/ul RBC 2.84 L (4.0-5.4) 10^6/ul Hgb 8.4 L (14.0-18.0) g/dl Hct 26 L (42-52) % MCV 92 (80-94) fL MCH 30 (27-31) pg MCHC 32 (31-36) g/dl RDW 17 H (10.5-15) % Plt Count 144 L (150-450) 10^3/ul MPV 8 (7.4-10.4) um3 Neut % (Auto) 70.6 (38-83) % Lymph % (Auto) 14.0 L (25-47) % [place] % (Auto) 13.5 H (1-9) % Eos % (Auto) 0.6 (0-6) % Baso % (Auto) 1.3 (0-2) % Absolute Neuts (auto) 3.7 (1.5-7.7) 10^3/ul Absolute Lymphs (auto) 0.7 L (1.0-4.8) 10^3/ul Absolute Monos (auto) 0.7 (0-0.8) 10^3/ul Absolute Eos (auto) 0 (0-0.6) 10^3/ul Absolute Basos (auto) 0.1 (0-0.2) 10^3/ul Absolute Nucleated RBC 0.01 10^3/ul Nucleated RBC % 0.1 INR (Anticoag Therapy) 1.38 H (0.89-1.11) APTT 38.1 H (26.0-36.3) seconds Sodium 134 (133-145) mmol/L Potassium 3.7 (3.5-5.0) mmol/L Chloride 93 L (101-111) mmol/L Carbon Dioxide 30 (22-32) mmol/L Anion Gap 11 (2-11) mmol/L BUN 12 (6-24) mg/dL Creatinine 3.80 H (0.67-1.17) mg/dL Est GFR ( Amer) 20.7 (>60) Est GFR (Non-Af Amer) 16.1 (>60) BUN/Creatinine Ratio 3.2 L (8-20) Glucose 81 (70-100) mg/dL Lactic Acid (0.5-2.0) mmol/L Calcium 9.6 (8.6-10.3) mg/dL Magnesium 2.2 (1.9-2.7) mg/dL Total Bilirubin 0.70 (0.2-1.0) mg/dL AST 35 (13-39) U/L ALT 8 (7-52) U/L Alkaline Phosphatase 81 (34-104) U/L Troponin I 0.05 H* (<0.04) ng/mL Total Protein 8.9 (6.4-8.9) g/dL Albumin 4.5 (3.2-5.2) g/dL Globulin 4.4 H (2-4) g/dL Albumin/Globulin Ratio 1.0 (1-3) TSH 2.89 (0.34-5.60) mcIU/mL 11/12/16 Range/Units 10:30 WBC (3.5-10.8) 10^3/ul RBC (4.0-5.4) 10^6/ul Hgb (14.0-18.0) g/dl Hct (42-52) % MCV (80-94) fL MCH (27-31) pg MCHC (31-36) g/dl RDW (10.5-15) % Plt Count (150-450) 10^3/ul MPV (7.4-10.4) um3 Neut % (Auto) (38-83) % Lymph % (Auto) (25-47) % [place] % (Auto) (1-9) % Eos % (Auto) (0-6) % Baso % (Auto) (0-2) % Absolute Neuts (auto) (1.5-7.7) 10^3/ul Absolute Lymphs (auto) (1.0-4.8) 10^3/ul Absolute Monos (auto) (0-0.8) 10^3/ul Absolute Eos (auto) (0-0.6) 10^3/ul Absolute Basos (auto) (0-0.2) 10^3/ul Absolute Nucleated RBC 10^3/ul Nucleated RBC % INR (Anticoag Therapy) (0.89-1.11) APTT (26.0-36.3) seconds Sodium (133-145) mmol/L Potassium (3.5-5.0) mmol/L Chloride (101-111) mmol/L Carbon Dioxide (22-32) mmol/L Anion Gap (2-11) mmol/L BUN (6-24) mg/dL Creatinine (0.67-1.17) mg/dL Est GFR ( Amer) (>60) Est GFR (Non-Af Amer) (>60) BUN/Creatinine Ratio (8-20) Glucose (70-100) mg/dL Lactic Acid 1.2 (0.5-2.0) mmol/L Calcium (8.6-10.3) mg/dL Magnesium (1.9-2.7) mg/dL Total Bilirubin (0.2-1.0) mg/dL AST (13-39) U/L ALT (7-52) U/L Alkaline Phosphatase (34-104) U/L Troponin I (<0.04) ng/mL Total Protein (6.4-8.9) g/dL Albumin (3.2-5.2) g/dL Globulin (2-4) g/dL Albumin/Globulin Ratio (1-3) TSH (0.34-5.60) mcIU/mL Assess/Plan/Problems-Billing Assessment: 66 yo M with h/o ESRD, chronic pain, anxiety, , ICD placement, cardiomyopathy, mitral and tricuspid valve repair, MRSA bacteremia with negative PAKO in 2015 HTN, chronic hemorrhoidal/rectal bleeding, anemia presents with CP and syncope - Patient Problems (1) Pleuritic chest pain Comment: CTA shows no PE and small left pleural effusion that could be the source of the pain. Troponin of 0.05 is consistent with prior and chronic due to ESRD Echo shows unchanged EF of 40% Pain is not related to exercise. EKG shows progression of LVH and partial RBBB appreciate Dr. Messer's consult. Pt's resting images of stress test show a new area of ischemia. He at that point felt too nauseated to complete the stress part of the study and it was stopped. At this point the recommendation it to cont BB and to treat pt's anemia. Stress test at a later date or as outpatient was recommended (2) ICD (implantable cardioverter-defibrillator) in place Comment: ICD interrogation shows bursts A. fib. for now anticoagulation is contraindicated (3) Hemorrhoids with complication Comment: pt c/o chronic rectal bleed due to hemorrhoids. two hemorrhoids were banded by Dr. Avila on 11/14/16 (4) Anemia Comment: due to ESRD and blood loss as above-chronic with worsening s/p 1 U PRBC transfusion on 11/13/16 (5) ESRF (end stage renal failure) Comment: Dialysis today (6) Syncope Comment: ICD did not demonstrate significant arrythmia apart for short bursts of a. fib Suspect orthostasis post dialysis (7) Aortic valve calcification Comment: suspect the lesion may be related to dystrophic calcification in pt with ESRD and MRSA bacteremia in 2015. As [address] Messer who reviewed prior Echo - it is chronic (8) Hypertension Comment: cont carvedilol SBP in 160's today prior dialysis, will monitor (9) DVT prophylaxis Comment: SCD's, no anticoagulation in light of ongoing rectal bleed Status and Disposition: OBV changed to inpatient. Cont to monitor anemia and possibly d/c home tomorrow
[2016-11-14] MEDS: oxyCODONE TAB* 5 MG TAB PO PRN (21:46)
[2016-11-15] MEDS: Morphine INJ* 2 MG/ML 1 ML CARPUJECT IV PRN (04:54)
[2016-11-15] MEDS: Heparin VIAL(*) 5000 UNITS/ML VIAL (FIVE THOUSAND) SUBCUT SCH (05:46)
--- NOTE | 2016-11-15 05:47 | OP ---
DATE OF OPERATION: 11/14/16 - ROOM #440 DATE OF : 54 SURGEON: Igor Avila MD ACID WASH OPERATOR: None. ANESTHESIOLOGIST: Dr. Hayes. ANESTHESIA: Local with monitored anesthesia care. PRE-OP DIAGNOSES: 1. Known internal hemorrhoids. 2. Rectal bleeding. 3. Anemia. POST-OP DIAGNOSES: 1. Known internal hemorrhoids. 2. Rectal bleeding. 3. Anemia. OPERATIVE PROCEDURE: Anorectal exam under anesthesia with internal hemorrhoidal banding x2. ESTIMATED BLOOD LOSS: Minimal. SPECIMENS: None. COMPLICATIONS: None. DRAINS: None. WOUND CALCIFICATION: Not applicable. FINDINGS: The patient had several internal hemorrhoids that were prominent anteriorly and slightly to the right, one of which was somewhat ulcerated. There was no active bleeding noted on initial examination. Also, he had episode of what appeared to be more reductant mucosa to the right lateral aspect without evidence of ulceration or bleeding. Posteriorly in the more distal portion of the rectum appeared to be some arteriovenous malformations, which were nonbleeding. There was a small superficial fissure in the posterior position at the more proximal anal canal, which was nonbleeding. The anterior hemorrhoids which were quite thin walled and bled easily, were both banded without difficulty. BRIEF HISTORY: Mr. Pato Templeton is a 66-year-old gentleman with multiple medical issues including chronic renal insufficiency, coronary artery disease on hemodialysis, hepatitis C, who has had longstanding problems with internal hemorrhoids per the patient. He has had banding procedures done in the past. He is on hemodialysis and was recently admitted for a syncopal event. He was noted to have a lower hemoglobin than he normally does and received 1 unit of packed red blood cells. He has been stabilized medically, not having any further bleeding and in evaluation and further workup of his rectal bleeding, decision and a request from the hospitalist service has been made for exam under anesthesia with possible banding and/or hemorrhoidectomy. In addition to his multiple medical issues including chronic renal insufficiency, the rectal bleeding is felt to contribute to his anemia. At this point, the procedure was discussed with the patient, the risks but not limited to bleeding, infection, perianal/perirectal abscess formation, sepsis, discomfort, incontinence and further stage procedure may need to be performed. He also understands the risks of anesthesia. He has no close family near by. There was no one else that he wanted to talk with and he did give permission for me to discuss with any of his family members postoperatively. DESCRIPTION OF PROCEDURE: Written informed consent was obtained, the patient was taken to the operating room, placed in the prone Jackknife position and sedation was administered intravenously. The perianal area was prepped and draped in usual sterile fashion. Time-out verification. A standard perianal block was then performed using 1% lidocaine mixed with 0.25 % Marcaine with epinephrine. On exam, the perianal skin was soft, supple. He did have some significant external hemorrhoidal skin tag and tissue without evidence of bleeding or ulceration. Digital rectal exam did show decreased tone. There was no obvious blood or ulcerated mass noted. Anoscopy showed superficial posterior proximal anal canal fissure without evidence of exposed sphincter. Also, posteriorly up into the rectal mucosa was what appeared to be several arteriovenous type malformations, which were not bleeding or ulcerated. More anteriorly and slightly to the right was a fairly, what appeared to be more of prolapsing portion of the distal rectal mucosa, which was not ulcerative bleeding. Just anterior to this at the midline were two larger thin walled internal hemorrhoids, which bled easily when grasped and I felt that these were most likely the source of the immediate bleeding and this would be a place to start, with plans for continued possible banding in the future. Thus, 2 bands were placed at the neck. Both the internal hemorrhoids with good result and hemostasis was noted. The anus was packed with a rolled up Telfa gauze and covered with gauze. The patient tolerated the procedure well, was taken to the recovery room in stable condition. CC: [facility]; Erwin Alejandra MD; Jose Eduardo Dalal MD* [id number]/[facility] #: [id number] [facility]
[2016-11-15 06:13] LABS: Hematocrit 28 % (42-52); Hemoglobin 8.9 g/dl (14.0-18.0); Mean Corpuscular HGB Conc 32 g/dl (31-36); Mean Corpuscular Hemoglobin 30 pg (27-31); Mean Corpuscular Volume 92 fL (80-94); Mean Platelet Volume 8 um3 (7.4-10.4); Red Cell Distribution Width 17 % (10.5-15); White Blood Count 8.1 10^3/ul (3.5-10.8)
[2016-11-15 06:28] LABS: BUN/Creatinine Ratio 3.4 (8-20); Calcium 8.9 mg/dL (8.6-10.3); EGFR African American 11.4 (>60); EGFR Non-African American 8.8 (>60); Potassium 4.3 mmol/L (3.5-5.0)
[2016-11-15 08:38] VITALS: BP 123/79
[2016-11-15] MEDS: Pancrelipase CAP* 5,000 UNITS CAP PO SCH (08:45)
[2016-11-15] MEDS: Cinacalcet TAB* 30 MG PO SCH (08:46)
[2016-11-15] MEDS: Gabapentin CAP(*) 300 MG PO SCH (08:47)
[2016-11-15] MEDS: Docusate CAP* 100 MG PO SCH (08:48)
[2016-11-15] MEDS: Calcium Acetate CAP* 667 MG PO SCH ×2 (08:49→09:08)
[2016-11-15] MEDS: amLODIPine TAB* 5 MG PO SCH (08:49)
[2016-11-15] MEDS: hydrALAZINE TAB* 25 MG PO SCH (08:49)
[2016-11-15] MEDS: Lisinopril TAB* 10 MG PO SCH (08:50)
[2016-11-15] MEDS: Carvedilol TAB* 25 MG PO SCH (08:50)
[2016-11-15] MEDS: Citalopram TAB* 20 MG PO SCH (08:51)
[2016-11-15] MEDS: Famotidine TAB* 20 MG PO SCH (08:51)
[2016-11-15] MEDS: Furosemide TAB* 20 MG PO SCH (08:51)
[2016-11-15] MEDS: Omeprazole CAP* 20 MG PO SCH (08:52)
[2016-11-15] MEDS: CMC:Simvastatin TAB(NF) 10 MG TAB PO SCH (08:52)
[2016-11-15] MEDS: DULoxetine DR CAP* 30 MG CAP.DR PO SCH (08:52)
[2016-11-15] MEDS: Folic Acid TAB* 1 MG PO SCH (08:54)
[2016-11-15] MEDS: oxyCODONE TAB* 5 MG TAB PO PRN (08:56)
--- NOTE | 2016-11-15 23:48 | DS ---
DISCHARGE SUMMARY: DATE OF ADMISSION: DATE OF DISCHARGE: 11/15/16 PRIMARY CARE PHYSICIAN: Dr. Pratt. DISCHARGE DIAGNOSES: 1. Syncope most likely a combination of a symptomatic anemia and orthostasis post hemodialysis treatment. 2. Macrocytic anemia due to end-stage renal disease and bleeding hemorrhoids. 3. Rectal hemorrhoids, status post banding by Dr. Avila on 11/14/16. 4. Pleuritic chest pain that had been ongoing for several weeks not related to exercise, with CT angiogram of the chest positive for small pleural effusion on the left, but negative for PE. 5. Bursts of paroxysmal a. fib noted on ICD interrogation PAST MEDICAL HISTORY: 1. End-stage renal disease, on hemodialysis 3 times a week. 2. Hypertension. 3. Coronary artery disease, status post coronary artery bypass grafting. 4. Peripheral vascular disease. 5. Gastroesophageal reflux disease. 6. Hepatitis C. 7. History of anemia. 8. History of chronic pain. 9. History of surgery in February 2014 which included three-dimensional ring annuloplasty. 10. In 2013 during his coronary artery bypass grafting surgery, the patient also had mitral valve annuloplasty and tricuspid valve repair. 11. Status post ICD placement by Dr. Lei and that was [employer] in 2016. 12. History of cardiomyopathy. Current echocardiogram showed EF of 40%. 13. History of calcified lesions on his aortic valve that appeared enlarged during current hospital stay. CONSULTATIONS DURING THE HOSPITAL STAY: Included: 1. Dr. Messer from Cardiology. 2. Dr. Avila from Surgery. MEDICATIONS ON DISCHARGE: Unchanged from admission and include: 1. Albuterol inhaler 2 puffs every 4 hours p.r.n. as well as nebulizers with albuterol every 6 hours p.r.n. 2. Azelastine 0.05% one drop both eyes b.i.d. 3. Parul-Dameon 1 tablet daily. 4. PhosLo 3335 mg 3 times a day. 5. Coreg 25 mg b.i.d. 6. Sensipar 30 mg daily. 7. Flexeril 5 mg 3 times a day p.r.n. 8. Cymbalta 30 mg daily. 9. Voltaren gel 1% one application topically to all the affected painful areas. 10. Colace 100 mg b.i.d. 11. Lexapro 10 mg daily, 12. Pepcid 20 mg daily. 13. Folvite 0.5 mg daily. 14. Lasix 20 mg daily. 15. Neurontin 300 mg 3 times a day. 16. The patient had been also on Venofer injections every 14 days with dialysis. 17. Ketorolac ophthalmic solution 0.45%, apply every 8 hours p.r.n. 18. Lorazepam 0.5 mg b.i.d. p.r.n. 19. Lisinopril 10 mg daily. 20. Lubiprostone 24 mcg b.i.d. 21. Meclizine on a p.r.n. basis. 22. Nitroglycerin on a p.r.n. basis sublingually at 0.4 mg. 23. Prilosec 40 mg b.i.d. 24. Zofran 4 mg every 8 hours p.r.n. 25. Oxycodone 15 mg every 4 hours p.r.n. 26. Creon 12,000 units p.o. 4 times a day with each meal. 27. Zantac 150 mg daily. 28. Simethicone 80 mg every 6 hours p.r.n. 29. Zocor 5 mg daily. 30. Sucroferric oxyhydroxide 2000 mg p.o. with each meal. 31. Ambien 10 mg at bedtime p.r.n. 32. Norvasc 10 mg daily. 33. Hydralazine 25 mg 3 times a day. LABORATORY DATA AND STUDIES PERFORMED DURING THE HOSPITAL STAY: Included: On 11/15/16 white blood cell count of 8.1, hemoglobin of 8.9, hematocrit of 28, and platelets of 152. The patient's ESR was obtained on 11/13/16 and was 22. On 11/15/16; Sodium of 134, potassium of 0.2, chloride 90, carbon dioxide 30, anion gap 14, BUN 22, creatinine 6.39. Troponins throughout the patient's hospital stay was 0.[address] angiogram of the chest obtained on 11/13/16. Impression: "No evidence of pulmonary embolus is noted. Left pleural effusion with left basilar atelectasis. Cardiomegaly without evidence of pericardial effusion." Transthoracic echocardiogram on 11/12/16. Impression: "Moderate to severe concentric left ventricular hypertrophy observed. Minimal hypokinesis . Estimated ejection fraction of 40%. Left ventricular diastolic filling pattern is consistent with pseudonormalization. The right ventricular global systolic function is moderately reduced and chamber diameter was moderately dilated. Calcific aortic valve sclerosis with trace to mild aortic regurgitation. The calcified mass is visualized at the noncoronary cusp of the aortic valve noted. Mitral valve status post repair with moderate mitral regurgitation. There was mild to moderate tricuspid regurgitation. There is evidence of mild to moderate pulmonary hypertension at 46 mmHg. There is moderate pulmonary regurgitation. There is mild dilatation of the ascending aorta at 3.6 cm. Compared with prior PAKO on 09/06/15 ventricular function not significantly changed. Calcific aortic valve sclerosis noted, but mass on noncoronary cusp is newly described. The degree of mitral regurgitation and tricuspid regurgitation has increased. Aorta diameter previously of 3.8 cm." The patient had resting portion of stress test performed on 11/13/16 with Impression: "Limited study consisting of rest images that demonstrate moderate to large area of hyperperfusion of the lateral wall." Unfortunately, the stress part of the stress test was not performed due to the patient feeling too nauseated to continue with the test. The patient also at that point was significantly anemic and undergoing transfusion and it was thought that it was safer for the patient to not undergo further testing. HOSPITALIZATION COURSE: Pato Templeton is a 66-year-old male with a history of multiple chronic medical conditions including end-stage renal disease, coronary artery disease, chronic pain who visits our hospital and our ER department frequently for multitude of issues and on 11/12/16, he presented after dialysis when he had an episode of syncope. The patient stated that he felt weak after getting up from dialysis and then he had a syncopal episode when he was coming to the ER to be evaluated for the generalized weakness. In the process of being evaluated, the patient also complained of left-sided pleuritic chest pain that had been ongoing for several weeks now. He states that the pain occurs only when he coughs or when he takes a deep breath. It is not exacerbated by exercise. Initially, the patient's troponins had been mildly elevated but it is consistent with his chronic mild troponin elevation due to end-stage renal disease. He was observed on sewing machine maintenance mechanic bed with no marked arrhythmia noted. His ICD was interrogated and showed short bursts of atrial fibrillation. The patient's echocardiogram showed possibility of new calcified lesion on the noncoronary cusp of his aortic valve. Dr. Messer was consulted due to that as to preop evaluation for hemorrhoidal banding. The reefer truck driver reviewed the patient's prior echocardiograms and it appeared that the patient had the calcification noted previously but right now it is just more pronounced. The patient does have a history of MRSA bacteremia back in 2014 for which he was treated with IV antibiotics. It is possible that some of the calcifications are dystrophic and related also to his end-stage renal disease. The patient's resting cardiac stress test was abnormal. Nevertheless, his current chest pain is pleuritic and not related to exercise and appears to be related to a small left sided pleural effusion that the patient has had. At this point, Dr. Messer recommended further management of the patient's anemia and fluid volume status and recommended further stress testing at a later date. The patient was noted to be significantly anemic. In the past his hemoglobin had been in the 10 range and at admission it was 8 and then later on dropped to 6. His anemia was a chronic progression of normocytic anemia most likely related to end- stage renal disease but also from what the patient reported chronic hemorrhoidal bleeding. The patient also is receiving Epogen and Venofer infusions at dialysis. At that point, the case was discussed with Dr. Avila who was a general surgeon, agreed to see the patient in consultation. The patient went to the OR on 11/14/16 and two nonbleeding hemorrhoids were banded. Postoperatively, the patient felt well although he did have significant pain in his rectal area. The patient also received 1 unit of packed red blood cell transfusion during his hospital stay and hemoglobin raised adequately to 8.9 by the time of discharge. At the time of discharge, the patient still complains of slight left-sided pleuritic chest pain. At this point, the plan is for the patient to be discharged home to follow up with his primary care provider. It is recommended for the patient to have an outpatient cardiac stress test performed once his anemia has improved hopefully after further does of Epogen and Venofer and hopefully no more bleeding from the hemorrhoids. His medications at discharge are unchanged from admission. PHYSICAL EXAMINATION: At the time of discharge; blood pressure of 123/79, heart rate of 74 and irregular, respiratory rate 16, oxygen saturation 100% on room air, and temperature 98.6. General Appearance: This is very pleasant 66- year-old male who is in no acute distress, awake, alert, and oriented x3. HEENT : Head is atraumatic and normocephalic. Eyes; pupils equal, round, reactive to light and accommodation. Oropharynx clear. Mucosa moist. Neck supple. No JVD, no bruits bilaterally. Cardiovascular: Regular rate and rhythm. No murmur. Respiratory: Clear to auscultation bilaterally. Abdomen: Soft and nontender. Bowel sounds present in all 4 quadrants. A ventral hernia present, reducible. Extremities: There is no edema. Pulses are +2 bilaterally. No clubbing or cyanosis. The patient has right wrist dialysis fistula in place with positive thrill. Neuro Evaluation: Cranial nerves II through XII are grossly intact. Motor strength is 5/5 bilaterally. On evaluation of the skin; the patient has right tunneled dialysis catheter in place with the entry area in the right subclavian area. There was no evidence of purulent discharge of the skin at the insertion site of the catheter. Please also note that ICD interrogation noted for the patient to have short bursts of atrial fibrillation. Due to those episodes being relatively short in minutes as well as due to that the patient has current problems with anemia and hemorrhoidal bleeding, anticoagulation was not initiated. The patient also was recommended to follow up with Dr. Navarro, his primary reefer truck driver. Please note this is a short summary of the patient's hospital stay. Please refer to further medical records for details. TIME SPENT: Approximately 45 minutes was spent at this patient's discharge. CC: Dr. Pratt; Dr. Dalal; Dr. Avila; Dr. Navarro; Dr. Messer * [id number]/[facility] #: [id number] MTDD
== END 2016-11-15 12:27 | disposition home or self-care (01) | DRG 347 ==
LOC: ED 10:20 → MEDTELE 12:51 → OBSVTOIN 11-14 10:04
PROVIDERS: ADMIT Internal Medicine; ATTEND Internal Medicine
PROC: 06LY4CC Occlusion of Hemorrhoidal Plexus with Extraluminal Device, Percutaneous Endoscopic Approach (ICD-10-PCS; 2016-11-14)
PROC: 5A1D60Z (ICD-10-PCS; 2016-11-14)
PROC: 4B02XTZ Measurement of Cardiac Defibrillator, External Approach (ICD-10-PCS; 2016-11-14)
PROC: 30233N1 Transfusion of Nonautologous Red Blood Cells into Peripheral Vein, Percutaneous Approach (ICD-10-PCS; 2016-11-14)
PROC: 5A12012 Performance of Cardiac Output, Single, Manual (ICD-10-PCS; principal; 2016-11-14 08:30)
DX: K64.8 Other hemorrhoids (principal); N18.6 End stage renal disease; I13.2 Hypertensive heart and chronic kidney disease with heart failure and with stage 5 chronic kidney disease, or end stage renal disease; J90 Pleural effusion, not elsewhere classified; I27.2 Other secondary pulmonary hypertension; R55 Syncope and collapse; K27.9 Peptic ulcer, site unspecified, unspecified as acute or chronic, without hemorrhage or perforation; I48.91 Unspecified atrial fibrillation; J98.11 Atelectasis; D50.0 Iron deficiency anemia secondary to blood loss (chronic); K74.60 Unspecified cirrhosis of liver; I25.10 Atherosclerotic heart disease of native coronary artery without angina pectoris; I73.9 Peripheral vascular disease, unspecified; K21.9 Gastro-esophageal reflux disease without esophagitis; B19.20 Unspecified viral hepatitis C without hepatic coma; I25.5 Ischemic cardiomyopathy; I50.9 Heart failure, unspecified; E78.00 Pure hypercholesterolemia, unspecified; J44.9 Chronic obstructive pulmonary disease, unspecified; J45.909 Unspecified asthma, uncomplicated; G89.29 Other chronic pain; M19.90 Unspecified osteoarthritis, unspecified site; G43.909 Migraine, unspecified, not intractable, without status migrainosus; F32.9 Major depressive disorder, single episode, unspecified; F41.9 Anxiety disorder, unspecified; M54.9 Dorsalgia, unspecified; F12.90 Cannabis use, unspecified, uncomplicated; D63.1 Anemia in chronic kidney disease; I35.8 Other nonrheumatic aortic valve disorders; R07.81 Pleurodynia; I08.1 Rheumatic disorders of both mitral and tricuspid valves; I77.819 Aortic ectasia, unspecified site; E78.5 Hyperlipidemia, unspecified; K60.2 Anal fissure, unspecified; K64.4 Residual hemorrhoidal skin tags; R53.1 Weakness; R79.89 Other specified abnormal findings of blood chemistry; Z99.2 Dependence on renal dialysis; Z95.1 Presence of aortocoronary bypass graft; Z87.891 Personal history of nicotine dependence; Z88.8 Allergy status to other drugs, medicaments and biological substances; Z88.5 Allergy status to narcotic agent; Z87.01 Personal history of pneumonia (recurrent); Z82.3 Family history of stroke; Z86.14 Personal history of Methicillin resistant Staphylococcus aureus infection; Z95.810 Presence of automatic (implantable) cardiac defibrillator
CPT/HCPCS: 36415; 71010; 71275; 78451; 80048; 80053; 83605; 83735; 84443; 84484; 84681; 85025; 85027; 85610; 85652; 85730; 86850; 86900; 86901; 86922; 90935; 93005; 93306; 96374; 96375; 99284; A9270-GY; A9502; G0257; G0378; J0360; J0885; J1644; J2250; J2270; J2405; J2704; J3010; J3490; P9040; Q9967

== ENCOUNTER 2016-11-26 14:31 | Emergency (ER) | payer MEDICARE, MEDICAID ==
[2016-11-26] MEDS ORDERED: Lidocaine 2% VISCOUS* 15 ML UDC PO ONE (15:00)
[2016-11-26] MEDS ORDERED: Acetaminophen TAB* 325 MG PO ONE (15:00)
[2016-11-26] MEDS ORDERED: Al Hydrox/Mg Hydrox/Simet LIQ* 30 ML UDC PO ONE (15:00)
--- NOTE | 2016-11-26 15:28 | RAD ---
HISTORY: Chest pain COMPARISONS: July 13, 2017 VIEWS: 2: Frontal dual-energy and lateral views of the chest. FINDINGS: CARDIOMEDIASTINAL SILHOUETTE: The cardiomediastinal silhouette is normal. Prosthetic heart valves are noted. ALICIA: The alicia are normal. PLEURA: There are small bilateral pleural effusions. LUNG PARENCHYMA: There is patchy alveolar opacifications of the lungs bilaterally. ABDOMEN: The upper abdomen is clear. There is no subphrenic gas. BONES AND SOFT TISSUES: The patient is status post median sternotomy. OTHER: A left-sided pacemaker is noted. A central venous catheter is noted from a right internal jugular vein approach with the tip overlying T2 vertebral junction. IMPRESSION: 1. LINES AND TUBES ABOVE. 2. SMALL BILATERAL PLEURAL EFFUSIONS WITH BIBASILAR ATELECTASIS VERSUS CONSOLIDATION.
--- NOTE | 2016-11-26 15:30 | RAD ---
HISTORY: Rib pain COMPARISONS: Chest x-ray dated November 26, 2016 VIEWS: 5, Frontal and oblique views of the left hemithorax. FINDINGS: There is a nondisplaced fracture of the left 10th rib. There is no appreciable pneumothorax . As noted on the chest x-ray, there is a left pleural effusion with left basilar atelectasis versus consolidation. IMPRESSION: NONDISPLACED FRACTURE OF THE LEFT 10TH RIB. NO APPRECIABLE PNEUMOTHORAX.
[2016-11-26] MEDS ORDERED: oxyCODONE TAB* 5 MG TAB PO ONE (15:44)
--- NOTE | 2016-11-26 15:53 | ED ---
Nehal Briones Erika, scribed for Oskar Reyes MD on 11/26/16 at 1507 . HPI Chest Pain - HPI Summary HPI Summary: Patient is a 66-year-old male presenting to the ED with a CC of chest pain. He reports that pain started during dialysis today, a few hours ago. Pain is located midsternal, which is similar to the pain he was here for in October 2016. He also reports new pain that is left anterior which radiates through to his back. Pt describes the pain as sharp, and currently rates it a 10/10. Pain is aggravated by coughing and palpation. Pt denies chills, nausea, vomiting, and phlegm with his cough. He does note SOB. - History of Current Complaint Chief Complaint: EDChestWallPain Time Seen by Provider: 11/26/16 14:44 Hx Obtained From: Patient Onset/Duration: Started Hours Ago, Atraumatic, Still Present Timing: Constant Initial Severity: Mild Current Severity: Moderate Pain Intensity: 10 Pain Scale Used: 0-10 Numeric Chest Pain Location: Mid Sternal, Left Anterior Chest Pain Radiates: Yes Chest Pain Radiates To:: Back - left Character: Sharp/Stabbing Aggravating Factor(s): Other: - coughing, palpation Alleviating Factor(s): Nothing Associated Signs and Symptoms: Positive: Shortness of Breath. Negative: Chills , Nausea, Vomiting - Additional Pertinent History Primary Care Physician: [id number] - Allergy/Home Medications Allergies/Adverse Reactions: Allergies Allergy/AdvReac Type Severity Reaction Status Date / Time Aspirin Allergy Unknown See Comment Verified 09/24/16 13:02 Hydromorphone [From Dilaudid] AdvReac Intermediate Nausea And Verified 09/24/16 13:02 Vomiting PMH/Surg Hx/FS Hx/Imm Hx Endocrine/Hematology History: Reports: Hx Blood Transfusions, Hx Sickle Cell Disease - Was told had sickle cell at one point but denies, Hx Anemia Denies: Hx Anticoagulant Therapy, Hx Bone Marrow Disease, Hx Diabetes, Hx Thyroid Disease Cardiovascular History: Reports: Hx Angina, Hx Congestive Heart Failure, Hx Coronary Artery Disease, Hx Hypercholesterolemia, Hx Hypertension, Hx Pacemaker/ ICD, Hx Peripheral Vascular Disease, Hx Syncope, Hx Valvular Heart Disease, Other Cardiovascular Problems/Disorders - IDDM W/DIALYSIS 3XPER WK Denies: Hx Cardiomegaly, Hx Rheumatic Fever Respiratory History: Reports: Hx Asthma, Hx Chronic Obstructive Pulmonary Disease (COPD), Hx Pleural Effusion, Hx Pneumonia, Other Respiratory Problems/ Disorders - SOB Denies: Hx Pulmonary Edema, Hx Pulmonary Embolism, Hx Sleep Apnea GI History: Reports: Hx Cirrhosis, Hx Ulcer, Other GI Disorders - peptic ulcer Denies: Hx Crohn's Disease, Hx Gastroesophageal Reflux Disease, Hx Hiatal Hernia, Hx Irritable Bowel, Hx Jaundice History: Reports: Hx Acute Renal Failure, Hx Chronic Renal Failure, Hx Dialysis, Hx Renal Disease - ON DIALYSIS, Other Problems/Disorders - end stage renal disease, on dialysis Denies: Hx Kidney Infection, Hx Kidney Stones Musculoskeletal History: Reports: Hx Arthritis, Hx Back Problems - chronic pain , Hx Orthopedic Injury Denies: Hx Rheumatoid Arthritis, Hx Bursitis, Hx Tendonitis, Other Musculoskeletal History Sensory History: Reports: Hx Contacts or Glasses, Hx Glaucoma, Hx Vision Problem Denies: Hx Cataracts Opthamlomology History: Reports: Hx Contacts or Glasses, Hx Glaucoma, Hx Vision Problem Denies: Hx Cataracts Neurological History: Reports: Hx Headaches, Hx Migraine, Other Neuro Impairments/Disorders - depression Denies: Hx Dementia, Hx Seizures Psychiatric History: Reports: Hx Anxiety, Hx Depression Denies: Hx Eating Disorder, Hx Panic Disorder, Hx of Violent Episodes Against Others, Hx Substance Abuse - Cancer History Hx Chemotherapy: No Hx Radiation Therapy: No Hx Palliative Cancer Treatment: No - Surgical History Surgery Procedure, Year, and Place: HERNIA REPAIR 2012. APPENDECTOMY 2000. LEFT ARM AV FISTULA/CAD - REMOVED. CABG 1 vessel, mitral & tricuspid valve repair March 02, 2014 AT [facility] CONDITIONAL 5 UPTO 3T. POWER PORT. Mitral and tricuspid valve repair Hx Anesthesia Reactions: No - Immunization History Date of Tetanus Vaccine: Unkown Date of Influenza Vaccine: 2016 Infectious Disease History: Reports: Hx Hepatitis, History Other Infectious Disease - Hepatitis C Denies: Hx Clostridium Difficile, Hx Human Immunodeficiency Virus (HIV), Hx of Known/Suspected MRSA, Hx Shingles, Hx Tuberculosis, Hx Known/Suspected VRE, Hx Known/Suspected VRSA - Family History Known Family History: Positive: Cardiac Disease, Hypertension, Other - CVA - Social History Alcohol Use: None Alcohol Amount: former EtOH abuse Hx Substance Use: Yes Substance Use Type: Reports: Marijuana Substance Use Comment - Amount & Last Used: every day smokes one joint to help with back pain Hx Tobacco Use: Yes Smoking Status (MU): Former Smoker Type: Cigarettes Have You Smoked in the Last Year: No Review of Systems Negative: Chills Positive: Chest Pain Positive: Shortness Of Breath Negative: Vomiting, Nausea Musculoskeletal: Other - back pain All Other Systems Reviewed And Are Negative: Yes Physical Exam - Summary Physical Exam Summary: VITAL SIGNS: Reviewed. GENERAL: Patient is a well developed and nourished male who is lying comfortable in the stretcher. Patient is not in any acute respiratory distress. HEAD AND FACE: No signs of trauma. No ecchymosis, hematomas or skull depressions. EYES: PERRLA, EOMI x 2, EARS: Hearing grossly intact. Ear canals and tympanic membranes are within normal limits. MOUTH: Oropharynx within normal limits. NECK: Supple, trachea is midline, no adenopathy, CHEST: Symmetric, Positive tenderness at palpation in the left side rib cage mid axillary line around the 9 [id number] rib. LUNGS: Clear to auscultation bilaterally. No wheezing or crackles. CVS: Regular rate and rhythm, S1 and S2 present, no murmurs or gallops appreciated. ABDOMEN: Soft, non-tender. No signs of distention. No rebound no guarding, and no masses palpated. Bowel sounds are normal. EXTREMITIES: FROM in all major joints, no edema, no cyanosis or clubbing. NEURO: Alert and oriented x 3. No acute neurological deficits. Speech is normal and follows commands. SKIN: Dry and warm Triage Information Reviewed: Yes Vital Signs On Initial Exam: Temp Pulse Resp BP Pulse Ox 98.6 F 79 18 130/104 99 11/26/16 15:00 11/26/16 15:00 11/26/16 15:00 11/26/16 15:00 11/26/16 15:00 Vital Signs Reviewed: Yes Diagnostics - Vital Signs Vital Signs Temp Pulse Resp BP Pulse Ox 11/26/16 15:00 98.6 F 79 18 130/104 99 - Laboratory Lab Statement: Any lab studies that have been ordered have been reviewed, and results considered in the medical decision making process. - Radiology Ribs XR Radiology Interpretation Completed By: Radiologist - IMPRESSION: NONDISPLACED FRACTURE OF THE LEFT 10TH RIB. NO APPRECIABLE PNEUMOTHORAX. CXR Radiology Interpretation Completed By: Radiologist - FINDINGS: CARDIOMEDIASTINAL SILHOUETTE: The cardiomediastinal silhouette is normal. Prosthetic heart valves are noted. ELIANE: The eliane are normal. PLEURA: There are small bilateral pleural effusions. LUNG PARENCHYMA: There is patchy alveolar opacifications of the lungs bilaterally. ABDOMEN: The upper abdomen is clear. There is no subphrenic gas. BONES AND SOFT TISSUES: The patient is status post median sternotomy. OTHER: A left-sided pacemaker is noted. A central venous catheter is noted from a right internal jugular vein approach with the tip overlying T2 vertebral junction. IMPRESSION: 1. LINES AND TUBES ABOVE. 2. SMALL BILATERAL PLEURAL EFFUSIONS WITH BIBASILAR ATELECTASIS VERSUS CONSOLIDATION. - EKG 14:34 Cardiac Rate: NL - at 77 bpm EKG Rhythm: Sinus Rhythm EKG Interpretation: T wave inversions in aVL and V6 Re-Evaluation - Re-Evaluation First Eval Re-Evaluation Time: 15:39 Comment: Discussed XR results with patient. Pt now reports that he fell when he had been admitted to the hospital for a syncopal episode recently. Chest Pain Course/Dx - Course Assessment/Plan: Patient is a 66-year-old male presenting to the ED with a CC of chest pain. He reports that pain started during dialysis today, a few hours ago. Pain is located midsternal, which is similar to the pain he was here for in October 2016. He also reports new pain that is left anterior which radiates through to his back. Pt describes the pain as sharp, and currently rates it a 10 /10. Pain is aggravated by coughing and palpation. Pt denies chills, nausea, vomiting, and phlegm with his cough. He does note SOB. CXR shows small bilateral pleural effusions with atelectasis. XR ribs shows a nondisplaced Fx of the left 10th rib, with no pneumothorax. In the ED course, he was given 1 tablet of oxycodone. I discussed all the findings and test results with the patient and he will follow up with his PCP. He reports that he has an appt with his PCP tomorrow morning. I did not do any blood work since the pain is around the 10th rib on the left side, where he has sustained the fracture. Pt is hemodynamically stable and A&Ox3. - Chest Pain Differential Diagnosis/HQI/PQRI: Chest Wall, Lower Respiratory Infection - Diagnoses Provider Diagnoses: Rib fracture Discharge - Discharge Plan Condition: Stable Disposition: HOME Patient Education Materials: Rib Fracture (ED) Referrals: Octaviano Pratt MD [Primary Care Provider] - The documentation as recorded by the Nehal casey Erika accurately reflects the service I personally performed and the decisions made by Eric washington Walter, MD.
[2016-11-26 15:58] VITALS: BP 143/82
== END 2016-11-26 15:56 | disposition home or self-care (01) ==
LOC: ED 14:31
DX: S22.32XA Fracture of one rib, left side, initial encounter for closed fracture (principal); I20.9 Angina pectoris, unspecified; I50.9 Heart failure, unspecified; I25.10 Atherosclerotic heart disease of native coronary artery without angina pectoris; E78.00 Pure hypercholesterolemia, unspecified; I10 Essential (primary) hypertension; Z95.810 Presence of automatic (implantable) cardiac defibrillator; J44.9 Chronic obstructive pulmonary disease, unspecified; J45.909 Unspecified asthma, uncomplicated; Z87.891 Personal history of nicotine dependence; F12.10 Cannabis abuse, uncomplicated; B19.20 Unspecified viral hepatitis C without hepatic coma; I12.0 Hypertensive chronic kidney disease with stage 5 chronic kidney disease or end stage renal disease; E11.22 Type 2 diabetes mellitus with diabetic chronic kidney disease; Z79.4 Long term (current) use of insulin; N18.6 End stage renal disease; Z99.2 Dependence on renal dialysis
CPT/HCPCS: 71020; 93005; 99283; A9270-GY

== ENCOUNTER 2016-12-01 10:23 | Emergency (ER) | payer MEDICARE, MEDICAID ==
[2016-12-01] MEDS ORDERED: oxyCODONE/Acetamin 5/325 MG* TAB PO ONE (11:48)
[2016-12-01 12:53] VITALS: BP 148/98
--- NOTE | 2016-12-01 15:06 | ED ---
Devon Briones Billy, scribed for Zain Templeton MD on 12/01/16 at 1146 . Complex/Multi-Sys Presentation - HPI Summary HPI Summary: Patient is a 66 year-old male coming to [facility] presenting with left-sided rib and pain pain s/p fall several weeks ago. Rib x-ray on 11/26/16 shows a nondisplaced fracture of the left tenth rib. He states that the pain is intermittent, worse with ambulation. He is taking oxycodone at home but has been in dialysis all morning. He has no other complaints at this time. - History Of Current Complaint Chief Complaint: EDBackInjuryPain Time Seen by Provider: 12/01/16 11:24 Hx Obtained From: Patient Onset/Duration: Gradual Onset, Lasting Weeks, Still Present Timing: Constant Severity Currently: Moderate Severity Initially: Moderate Location: Pain At: - left sided rib and back pain Aggravating Factor(s): ambulation Alleviating Factor(s): n/a - Allergies/Home Medications Allergies/Adverse Reactions: Allergies Allergy/AdvReac Type Severity Reaction Status Date / Time Aspirin Allergy Unknown See Comment Verified 12/01/16 10:37 Hydromorphone [From Dilaudid] AdvReac Intermediate Nausea And Verified 12/01/16 10:37 Vomiting PMH/Surg Hx/FS Hx/Imm Hx Endocrine/Hematology History: Reports: Hx Blood Transfusions, Hx Sickle Cell Disease - Was told had sickle cell at one point but denies, Hx Anemia Denies: Hx Anticoagulant Therapy, Hx Bone Marrow Disease, Hx Diabetes, Hx Thyroid Disease Cardiovascular History: Reports: Hx Angina, Hx Congestive Heart Failure, Hx Coronary Artery Disease, Hx Hypercholesterolemia, Hx Hypertension, Hx Pacemaker/ ICD, Hx Peripheral Vascular Disease, Hx Syncope, Hx Valvular Heart Disease, Other Cardiovascular Problems/Disorders - IDDM W/DIALYSIS 3XPER WK Denies: Hx Cardiomegaly, Hx Rheumatic Fever Respiratory History: Reports: Hx Asthma, Hx Chronic Obstructive Pulmonary Disease (COPD), Hx Pleural Effusion, Hx Pneumonia, Other Respiratory Problems/ Disorders - SOB Denies: Hx Pulmonary Edema, Hx Pulmonary Embolism, Hx Sleep Apnea GI History: Reports: Hx Cirrhosis, Hx Ulcer, Other GI Disorders - peptic ulcer Denies: Hx Crohn's Disease, Hx Gastroesophageal Reflux Disease, Hx Hiatal Hernia, Hx Irritable Bowel, Hx Jaundice History: Reports: Hx Acute Renal Failure, Hx Chronic Renal Failure, Hx Dialysis, Hx Renal Disease - ON DIALYSIS, Other Problems/Disorders - end stage renal disease, on dialysis Denies: Hx Kidney Infection, Hx Kidney Stones Musculoskeletal History: Reports: Hx Arthritis, Hx Back Problems - chronic pain , Hx Orthopedic Injury Denies: Hx Rheumatoid Arthritis, Hx Bursitis, Hx Tendonitis, Other Musculoskeletal History Sensory History: Reports: Hx Contacts or Glasses, Hx Glaucoma, Hx Vision Problem Denies: Hx Cataracts Opthamlomology History: Reports: Hx Contacts or Glasses, Hx Glaucoma, Hx Vision Problem Denies: Hx Cataracts Neurological History: Reports: Hx Headaches, Hx Migraine, Other Neuro Impairments/Disorders - depression Denies: Hx Dementia, Hx Seizures Psychiatric History: Reports: Hx Anxiety, Hx Depression Denies: Hx Eating Disorder, Hx Panic Disorder, Hx of Violent Episodes Against Others, Hx Substance Abuse - Cancer History Hx Chemotherapy: No Hx Radiation Therapy: No Hx Palliative Cancer Treatment: No - Surgical History Surgery Procedure, Year, and Place: HERNIA REPAIR 2012. APPENDECTOMY 2000. LEFT ARM AV FISTULA/CAD - REMOVED. CABG 1 vessel, mitral & tricuspid valve repair March 02, 2014 AT [facility] CONDITIONAL 5 UPTO 3T. POWER PORT. Mitral and tricuspid valve repair Hx Anesthesia Reactions: No - Immunization History Date of Tetanus Vaccine: Unkown Date of Influenza Vaccine: 2015 Infectious Disease History: No Infectious Disease History: Reports: Hx Hepatitis, History Other Infectious Disease - Hepatitis C Denies: Hx Clostridium Difficile, Hx Human Immunodeficiency Virus (HIV), Hx of Known/Suspected MRSA, Hx Shingles, Hx Tuberculosis, Hx Known/Suspected VRE, Hx Known/Suspected VRSA, Traveled Outside the in Last 30 Days - Family History Known Family History: Positive: Cardiac Disease, Hypertension, Other - CVA - Social History Alcohol Use: None Alcohol Amount: former EtOH abuse Hx Substance Use: Yes Substance Use Type: Reports: Marijuana Substance Use Comment - Amount & Last Used: every day smokes one joint to help with back pain Hx Tobacco Use: Yes Smoking Status (MU): Former Smoker Type: Cigarettes Have You Smoked in the Last Year: No Review of Systems Negative: Fever Positive: Other - left rib and back pain All Other Systems Reviewed And Are Negative: Yes Physical Exam Triage Information Reviewed: Yes Vital Signs On Initial Exam: Initial Vitals Temp Pulse Resp BP Pulse Ox 98.9 F 73 16 159/113 100 12/01/16 10:27 12/01/16 10:27 12/01/16 10:27 12/01/16 10:27 12/01/16 10:27 Vital Signs Reviewed: Yes Appearance: Positive: Well-Appearing, No Pain Distress Skin: Positive: Warm, Skin Color Reflects Adequate Perfusion, Dry Head/Face: Positive: Normal Head/Face Inspection Eyes: Positive: Normal Neck: Positive: Supple, Nontender Respiratory/Lung Sounds: Positive: Clear to Auscultation, Breath Sounds Present Cardiovascular: Positive: RRR Abdomen Description: Positive: Nontender, Soft Musculoskeletal: Positive: Pain @ - Tenderness to the left posterior lower chest and left paralumbar region. Neurological: Positive: Normal Psychiatric: Positive: Normal, Affect/Mood Appropriate AVPU Assessment: Alert - [place] Coma Scale Coma Scale Total: 15 Diagnostics - Vital Signs Vital Signs Temp Pulse Resp BP Pulse Ox 12/01/16 10:27 98.9 F 73 16 159/113 100 - Laboratory Lab Statement: Any lab studies that have been ordered have been reviewed, and results considered in the medical decision making process. Complex Multi-Symp Course/Dx Course Of Treatment: Mr. Templeton got some relief from his symptoms with percocet here and he has no new symptoms. - Diagnoses Provider Diagnoses: Rib fracture Discharge - Discharge Plan Condition: Stable Disposition: HOME Patient Education Materials: Rib Fracture (ED) Referrals: Octaviano Pratt MD [Primary Care Provider] - The documentation as recorded by the Devon casey Billy accurately reflects the service I personally performed and the decisions made by , Zain Templeton MD.
== END 2016-12-01 12:52 | disposition home or self-care (01) ==
LOC: ED 10:23
DX: S22.32XD Fracture of one rib, left side, subsequent encounter for fracture with routine healing (principal); W19.XXXD Unspecified fall, subsequent encounter; Z87.891 Personal history of nicotine dependence; I25.10 Atherosclerotic heart disease of native coronary artery without angina pectoris; E78.00 Pure hypercholesterolemia, unspecified; Z95.810 Presence of automatic (implantable) cardiac defibrillator; I13.2 Hypertensive heart and chronic kidney disease with heart failure and with stage 5 chronic kidney disease, or end stage renal disease; E11.22 Type 2 diabetes mellitus with diabetic chronic kidney disease; N18.6 End stage renal disease; Z99.2 Dependence on renal dialysis; Z79.4 Long term (current) use of insulin; J44.9 Chronic obstructive pulmonary disease, unspecified; J45.909 Unspecified asthma, uncomplicated; K74.60 Unspecified cirrhosis of liver; B19.20 Unspecified viral hepatitis C without hepatic coma
CPT/HCPCS: 99282; A9270-GY

== ENCOUNTER 2016-12-08 09:35 | Observation (INO) | payer MEDICARE, MEDICAID ==
[2016-12-08] MEDS ORDERED: Aspirin Low Dose CHEW TAB* 81 MG PO ONE (10:39)
[2016-12-08 11:01] LABS: Hematocrit 31 % (42-52); Hemoglobin 9.9 g/dl (14.0-18.0); Mean Corpuscular HGB Conc 32 g/dl (31-36); Mean Corpuscular Hemoglobin 28 pg (27-31); Mean Corpuscular Volume 88 fL (80-94); Mean Platelet Volume 8 um3 (7.4-10.4); Red Blood Count 3.51 10^6/ul (4.0-5.4); Red Cell Distribution Width 17 % (10.5-15); White Blood Count 3.4 10^3/ul (3.5-10.8)
[2016-12-08 11:02] LABS: Comments Flag Yes
[2016-12-08 11:03] LABS: Add Diff/Slide Review? Slide Review Added
[2016-12-08 11:15] LABS: Troponin I 0.03 ng/mL (<0.04)
--- NOTE | 2016-12-08 11:17 | RAD ---
INDICATION: Chest pain COMPARISON: November 26, 2016 TECHNIQUE: An AP portable view obtained at 1055 hours is submitted. FINDINGS: Bones/Soft Tissues: There are no acute bony findings. There is left-sided cardiac pacemaker. There are sternotomy. There is a right-sided dialysis catheter. Cardiomediastinal: The correct silhouette is mildly enlarged. Lungs: Basilar interstitial change perhaps reflecting interstitial edema.. Pleura: Small bilateral pleural effusions with worsening. Other: None IMPRESSION: VASCULAR CONGESTION WITH INTERVAL WORSENING. SMALL BILATERAL PLEURAL EFFUSIONS. POSTOPERATIVE CHANGES.
[2016-12-08 11:31] LABS: Albumin 4.1 g/dL (3.2-5.2); BUN/Creatinine Ratio 3.1 (8-20); Calcium 9.1 mg/dL (8.6-10.3); EGFR African American 12.9 (>60); Globulin 3.9 g/dL (2-4); Potassium 3.6 mmol/L (3.5-5.0); Total Bilirubin 0.6 mg/dL (0.2-1.0)
[2016-12-08] MEDS ORDERED: Morphine INJ* 4 MG/ML 1 ML CARPUJECT IV ONE (11:49)
[2016-12-08] MEDS ORDERED: Acetaminophen TAB* 325 MG PO PRN (12:24)
[2016-12-08] MEDS ORDERED: Ondansetron INJ* 2 MG/ML VIAL IV PRN (12:24)
[2016-12-08] MEDS ORDERED: Albuterol HFA INHALER* 8 gm MDI INH PRN (12:31)
[2016-12-08] MEDS ORDERED: Simethicone TAB* 80 MG TAB.CHEW PO PRN (12:31)
[2016-12-08] MEDS ORDERED: Zolpidem TAB* 10 MG PO PRN (12:31)
[2016-12-08] MEDS ORDERED: LORazepam TAB(*) 0.5 MG PO PRN (12:31)
[2016-12-08] MEDS ORDERED: Cyclobenzaprine TAB* 10 MG PO PRN (12:31)
[2016-12-08] MEDS ORDERED: Meclizine TAB* 12.5 MG PO PRN (12:31)
[2016-12-08] MEDS ORDERED: Pancrelipase (NF) 12,000 UNITS CAP.DR PO SCH (13:00)
--- NOTE | 2016-12-08 13:11 | RAD ---
HISTORY: Syncope COMPARISONS: August 25, 2016 TECHNIQUE: Multiple contiguous axial CT scans were obtained of the head without intravenous contrast. FINDINGS: HEMORRHAGE/INFARCT: There is no hemorrhage or acute infarct. MASSES/SHIFT: There is no mass or shift. EXTRA-AXIAL SPACES: There are no extra-axial fluid collections. SULCI AND VENTRICLES: The sulci and ventricles are normal in size and position for the patient's stated age. CEREBRUM: There are no focal parenchymal abnormalities. BRAINSTEM: There are no focal parenchymal abnormalities. CEREBELLUM: There are no focal parenchymal abnormalities. VESSELS: The vessels are grossly normal. PARANASAL SINUSES: The paranasal sinuses are clear. ORBITS: The orbits are unremarkable. BONES AND SOFT TISSUE: No bone or soft tissue abnormalities are noted. OTHER: None IMPRESSION: NO ACUTE INTRACRANIAL PATHOLOGY.
[2016-12-08] MEDS: Morphine INJ* 4 MG/ML 1 ML CARPUJECT IV PRN ×2 (13:24→21:46)
[2016-12-08] MEDS: hydrALAZINE TAB* 25 MG PO SCH ×2 (13:24→23:52)
[2016-12-08] MEDS: Gabapentin CAP(*) 300 MG PO SCH ×2 (15:35→23:53)
[2016-12-08] MEDS: Lidocaine PATCH 5%* 1 PATCH TRANSDERM SCH (15:35)
[2016-12-08] MEDS: Calcium Acetate CAP* 667 MG PO SCH ×2 (15:39→23:55)
[2016-12-08] MEDS: SUCROFERRIC OXYHYDROXIDE PO SCH (15:40)
[2016-12-08] MEDS: oxyCODONE TAB* 5 MG TAB PO PRN (15:44)
[2016-12-08] MEDS: diPHENhydraMINE PO* 25 MG PO PRN (17:45)
--- NOTE | 2016-12-08 19:01 | HP ---
HISTORY AND PHYSICAL: DATE OF ADMISSION: 12/08/16 PRIMARY CARE PROVIDER: Octaviano Pratt MD ATTENDING PHYSICIAN WHILE IN THE HOSPITAL: Erwin Alejandra MD * (report dictated by Rigoberto Rader NP) CHIEF COMPLAINT: 1. Chest pain. 2. Syncope. HISTORY OF PRESENT ILLNESS: Mr. Templeton is a 66-year-old male patient with multiple medical problems who comes in today stating that during the end of his session of dialysis, he started having left-sided rib and chest pain. The patient states that the discomfort radiated to his left rib area, where he recently had rib fractures radiated up into his chest and then down into his stomach and down to his legs. Dialysis was stopped because he started having chest discomfort. The patient states that he has not been recently ill. There has been no recent fever. There has been no recent vomiting or diarrhea. He states he has just aches all over. When he finished dialysis and he stood up and then he had an episode, where he said he passed out. Next thing he knew, he was on the ground. He was confused. He was not really sure where he was and ambulance had already been called because of the chest pain, so they brought him into the ER. He denies having any recent change in his blood pressure medication. Denies having any abdominal pain or any associated nausea. He does admit to feeling short of breath and he states that the symptoms again were not getting any better, so he came in. He was evaluated in the ER. There was concern this could represent acute coronary syndrome. There was concern because of the syncope. Hospitalist service was asked to evaluate for admission. PAST MEDICAL HISTORY: Significant for: 1. Atrial fibrillation. 2. End-state renal disease. 3. CAD. 4. PVD. 5. GERD. 6. Hepatitis C. 7. Anemia. 8. Chronic pain. 9. Cardiomyopathy. His last echo was less than month ago, which showed an EF of 40%. PAST SURGICAL HISTORY: 1. He has had hemorrhoidal banding. 2. CABG with mitral valve repair and tricuspid valve repair. 3. ICD placement, unknown vendor. 4. Appendectomy. 5. Fistula placement. HOME MEDICATIONS: Include: 1. Hydralazine 25 mg p.o. t.i.d. 2. Norvasc 10 mg daily. 3. Nexium 10 mg at bedtime as needed. 4. Velphoro 2000 mg p.o. a.c. 5. Simvastatin 5 mg a day. 6. Simethicone 80 mg every 6 hours as needed. 7. Zantac 150 mg p.o. daily. 8. Creon 12,000 units p.o. q.i.d. before meals. 9. Oxycodone 15 mg p.o. every 4 hours as needed. 10. Zofran 4 mg p.o. every 8 hours as needed. 11. Prilosec 40 mg p.o. b.i.d. 12. Nitro 0.4 mg sublingual q.5 minutes p.r.n. chest pain. 13. Meclizine 25 mg p.o. every 8 hours as needed. 14. Amitiza 24 mcg p.o. b.i.d. 15. Lisinopril 10 mg daily. 16. Ativan 0.5 mg p.o. b.i.d. as needed. 17. Toradol ophthalmic 0.45% ophthalmic "q.8 as needed". 18. Venofer 100 mg IV every 14 days. 19. Neurontin 300 mg p.o. t.i.d. 20. Lasix 20 mg daily. 21. Folic acid 0.5 mg p.o. daily. 22. Pepcid 20 mg a day. 23. Lexapro 10 mg a day. 24. Colace 100 mg p.o. b.i.d. 25. Voltaren gel 2 applications topical b.i.d. as needed. 25. Cymbalta 30 mg p.o. daily. 26. Flexeril 5 mg p.o. t.i.d. as needed. 27. Sensipar 30 mg p.o. daily. 28. Coreg 25 mg p.o. b.i.d. 29. PhosLo 3335 mg p.o. t.i.d. 30. Parul-Dameon 1 tablet p.o. daily. 31. Optivar 1 drop both eyes q.i.d. 32. Pro-Air 2 puffs inhaled every 4 hours as needed. 32. Albuterol 1.25 mg inhaled q.i.d. as needed. ALLERGIES TO MEDICATION: Include ASPIRIN and DILAUDID. SOCIAL HISTORY: He is a former smoker. He does not alcohol. He smokes marijuana occasionally. Surrogate decision maker is his brother. FAMILY HISTORY: Mother had an MO and stroke. Father's history reviewed and noncontributory. REVIEW OF SYSTEMS: There is no documented fever. He denied having double vision. No ear discharge. He denies having any rhinorrhea. There is no sore throat. No thyroid enlargement. There is chest pain per my HPI. There is shortness of breath. There is no orthopnea. No nocturnal dyspnea. There is no abdominal pain. There is no nausea. There is no vomiting. No dysuria. No frequency. There was no loss of consciousness. No pruritus. No skin ulcerations. Review of 14 systems completed, all others negative. PHYSICAL EXAMINATION GENERAL: At this time, Mr. Templeton is a 66-year-old male patient. He is chronically ill appearing. He is sitting in the ER stretcher. He does not appear to be in any acute distress. VITAL SIGNS: Reveals blood pressure 152/120, pulse is 77, respirations 20, O2 sat of 100%, and his temperature was 98.4. His last blood pressure was 150/ 100. Note, he did not take his blood pressure meds prior to dialysis. HEENT: Head is atraumatic, normocephalic. Eyes: EOMs are intact. Sclerae anicteric. NECK: Supple. Throat: Oral mucosa appears to be moist. No oropharyngeal erythema. LUNGS: Clear to auscultation. No wheezes, rales, or rhonchi. HEART: Sounds S1, S2. Regular rate and rhythm. No murmurs, rubs, or gallops. ABDOMEN: Soft, flat, and there was tenderness in the left upper quadrant. EXTREMITIES: Pulses were 2+ throughout. He is able to move all 4 extremities. He has 5/5 strength. NEUROLOGIC: The patient is awake, alert, and he is oriented x3. No gross focal deficits. SKIN: Intact. DIAGNOSTIC STUDIES/LAB DATA: The labs today revealed WBC of 3.4, RBC 3.51, hemoglobin 9.9, hematocrit 31, and platelet count 125. Sodium is 137, potassium 3.6, chloride of 94, his bicarb is 33, his BUN was 18, creatinine was 5.74, glucose 73, lactic 1.1, and calcium 9.1. Total bili is 0.6, AST 29, ALT 13, and alk phos 71. Troponin 0.03. Albumin of 4.1. He had an EKG obtained today, which shows a normal sinus rhythm at a rate of 78 , ST- wave inversions in lead 1, depressed in lead 2, biphasic T-wave in V4, inverted in V5 and 6. These are changes that have been noticed in the previous EKGs. There is no significant change in his LVH as well. He had an echo done last admission showed an EF of 40% with severe concentric left ventricular hypertrophy, global hypokinesis, calcified aortic valve sclerosis with trace-to- mild regurg. Calcified mass is visualized on the aortic valve noted. Compared to the PAKO from 3 years ago, LV function not significantly changed. Calcified aortic valve sclerosis. Notable mass is newly noted. The MR and TR have increased. Aorta diameter previously 3.8. He did have a CTA just less than a month ago, which showed no evidence of pulmonary embolism. Left pleural effusion with left bibasilar atelectasis and he had a resting nuclear stress, which showed limited study consisting of rest images only demonstrates a [id number] area of hyperperfusion of the lateral wall and he did have a chest x-ray obtained today, which in my review, there was some vascular congestion. Radiology read it as vascular congestion with worsening small bilateral pleural effusions, postoperative change. Old medical records reviewed. ASSESSMENT AND PLAN: Mr. Templeton is a 66-year-old male patient with multiple medical problems coming into the ER today with complaints of chest discomfort, pain all over, and syncope. He will be admitted under observation status for: 1. Chest pain: Again this maybe related to the fact that he recently had rib fractures. However, he has significant risk factors for acute coronary syndrome. In addition to this, he had a syncopal episode today. I think we should get a full stress test. Not going to repeat the echo. We will get orthostatic blood pressures and we will go ahead and do a CT of the brain. I am going to get an EEG because there was a period of confusion afterwards to make sure this was no seizure. We will interrogate the ICD and will continue to follow. 2. Syncope: Again, interrogate the ICD. Stress test. In addition to this EEG , orthostatic blood pressures and telemetry. 3. End-stage renal disease: We will continue dialysis as prescribed. 4. AFib: I would not place the patient on blood thinners at this point because of the falls and his other medical problems, certainly the risks of the anticoagulation outweigh the benefit of the anticoagulation at this point. In my opinion, we will hold off and I will defer it to his primary. He is in the sinus rhythm now. We will follow. 5. Coronary artery disease: Continue his meds as prescribed. Unfortunately, he is allergic to ASPIRIN. 6. Peripheral vascular disease: Continue meds as prescribed. 7. Gastroesophageal reflux disease: Continue PPI therapy, Zantac, and Pepcid and follow his primary. 8. Anemia: H and H is stable. 9. Chronic pain: Continue meds as described. 10. Cardiomyopathy. Again, last echo showed an EF of 40%. We will continue his medications as prescribed and if we do give any fluids, obviously we need to be careful. 11. DVT prophylaxis: He will be placed on heparin subcu as he is high risk. 12. Code status: He is full code. 13. Fluid, electrolytes, and nutrition: Heart healthy diet and is n.p.o. after midnight. TIME SPENT: Time spent on the admission was 60 minutes; greater than half the time was spent [id number] with the patient obtaining my history and physical, the other half time is spent going over the plan of care with the patient and implementing plan of care. I discussed the plan of care with my attending, Dr. Alejandra. He is in agreement. RIGOBERTO RADER NP CC: Octaviano Pratt MD * [id number]/[facility] #: [id number] STEPHANIE
[2016-12-08] MEDS ORDERED: Lidocaine Patch REMOVE* 1 NOTE MISC SCH (21:00)
[2016-12-08] MEDS: Carvedilol TAB* 25 MG PO SCH (23:52)
[2016-12-08] MEDS: Omeprazole CAP* 20 MG PO SCH (23:53)
[2016-12-08] MEDS: Docusate CAP* 100 MG PO SCH (23:54)
[2016-12-08] MEDS: Heparin VIAL(*) 5000 UNITS/ML VIAL (FIVE THOUSAND) SUBCUT SCH (23:59)
[2016-12-09] MEDS: Heparin VIAL(*) 5000 UNITS/ML VIAL (FIVE THOUSAND) SUBCUT SCH ×3 (00:07→13:46)
[2016-12-09] MEDS: LUBIPROSTONE 8 MCG PO SCH ×2 (00:08→10:25)
[2016-12-09] MEDS: Morphine INJ* 4 MG/ML 1 ML CARPUJECT IV PRN ×2 (05:15→10:04)
[2016-12-09 06:06] LABS: Comments Flag Yes; Hematocrit 28 % (42-52); Hemoglobin 9.1 g/dl (14.0-18.0); Mean Corpuscular HGB Conc 32 g/dl (31-36); Mean Corpuscular Hemoglobin 28 pg (27-31); Mean Corpuscular Volume 88 fL (80-94); Mean Platelet Volume 8 um3 (7.4-10.4); Red Blood Count 3.22 10^6/ul (4.0-5.4); Red Cell Distribution Width 17 % (10.5-15)
[2016-12-09 06:07] LABS: White Blood Count 3.2 10^3/ul (3.5-10.8)
[2016-12-09 06:25] LABS: BUN/Creatinine Ratio 3.3 (8-20); Calcium 8.4 mg/dL (8.6-10.3); EGFR African American 8.7 (>60); EGFR Non-African American 6.7 (>60); HDL Cholesterol 29.5 mg/dL
[2016-12-09] MEDS ORDERED: Regadenoson* 0.4 MG/5 ML SYRINGE ONE (08:40)
[2016-12-09] MEDS ORDERED: Aminophylline IV* 25 MG/ML 10 ML VIAL ONE (08:40)
[2016-12-09] MEDS: SUCROFERRIC OXYHYDROXIDE PO SCH ×2 (08:40→12:54)
[2016-12-09] MEDS ORDERED: Lisinopril TAB* 10 MG PO SCH (09:00)
[2016-12-09] MEDS ORDERED: Ranitidine TAB (NF) 150 MG TAB PO SCH (09:00)
[2016-12-09] MEDS ORDERED: Famotidine TAB* 20 MG PO SCH (09:00)
[2016-12-09] MEDS ORDERED: Folic Acid TAB* 1 MG PO SCH (09:00)
[2016-12-09] MEDS ORDERED: CMCS - Simvastatin TAB(NF) 10 MG TAB PO SCH (09:00)
[2016-12-09] MEDS ORDERED: amLODIPine TAB* 5 MG PO SCH (09:00)
[2016-12-09] MEDS ORDERED: Citalopram TAB* 20 MG PO SCH (09:00)
[2016-12-09] MEDS ORDERED: Furosemide TAB* 20 MG PO SCH (09:00)
[2016-12-09] MEDS ORDERED: DULoxetine DR CAP* 30 MG CAP.DR PO SCH (09:00)
[2016-12-09] MEDS ORDERED: Cinacalcet TAB* 30 MG PO SCH (09:00)
[2016-12-09] MEDS: Lidocaine PATCH 5%* 1 PATCH TRANSDERM SCH (10:06)
[2016-12-09] MEDS: Gabapentin CAP(*) 300 MG PO SCH ×2 (10:08→13:45)
[2016-12-09] MEDS: hydrALAZINE TAB* 25 MG PO SCH ×2 (10:14→13:45)
[2016-12-09] MEDS: Carvedilol TAB* 25 MG PO SCH (10:16)
[2016-12-09] MEDS: diPHENhydraMINE PO* 25 MG PO PRN (10:17)
[2016-12-09] MEDS: Docusate CAP* 100 MG PO SCH (10:19)
[2016-12-09] MEDS: Calcium Acetate CAP* 667 MG PO SCH ×2 (10:25→13:46)
[2016-12-09] MEDS: Omeprazole CAP* 20 MG PO SCH (10:31)
--- NOTE | 2016-12-09 10:50 | RAD ---
HISTORY: Chest pain, hypertension, coronary artery bypass COMPARISONS: November 13, 2016 TECHNIQUE: A 1 day stress/rest myocardial perfusion study was performed, with 6 stress. The stress portion was monitored by Dr. Ruff. Gated SPECT imaging was performed, with CT-based attenuation correction DOSE: Stress: Technetium 99m tetrofosmin, 25.6 millicuries, injected at 9:07 AM on December 09, 2016 Rest: Technetium 99m tetrofosmin, 10.6 millicuries, injected at 6:40 AM on December 09, 2016 Pharmacologic agent: Lexiscan FINDINGS: CARDIAC MONITORING: Nondiagnostic EKG portion secondary to baseline abnormalities EF: 47 % TID: 1.03 MOTION: There is diffuse upper PERFUSION: There is moderate to large area of photopenia of the lateral wall that is fixed. This partially resolves with attenuation correction. This is similar to the previous examination. There are small areas of reversible photopenia along the apex and along the margin of the perfusion defect on the attenuation corrected images, which may be an artifact of misregistration. OTHER: There is a small left pleural effusion IMPRESSION: MODERATE FIXED DEFECT CONSISTENT WITH INFARCT WITH QUESTIONABLE SMALL REVERSIBLE DEFECTS SUGGESTIVE OF ARTIFACT VERSUS SMALL AREAS OF ISCHEMIA, WITH DECREASED EJECTION FRACTION ASSESSMENT: INTERMEDIATE RISK. Based on imaging criteria from ACC/AHA 2002. Guideline Update for the Management of Patient's with Chronic Stable Angina, table 23. Noninvasive Risk Stratification.
--- NOTE | 2016-12-09 11:00 | PN ---
Subjective Date of Service: 12/09/16 Interval History: Patient seen and examined at bedside. He is very agitated this morning, stating that he "will pass out and end up in ICU" if he can't eat something. Patient produced and started eating david crackers, stating, "I can't go any longer without food." I did explain that I would prefer to keep him NPO in the event that a cardiac catheterization would be recommended today; he states, "I'm going to eat. I cannot make it without food for this long." The patient understands that eating may prevent him from further intervention today. He states if he needs it, he would rather wait until tomorrow to get it done so he can eat today. He reports occasional twinges of pain to the mid sternum but states that his legs are what always hurts and also his left flank, due to his broken ribs. Denies SOB, palpitations, focal weakness, abd pain, n/v. Tele: SR 70s Family History: Unchanged from Admission Social History: Unchanged from Admission Past Medical History: Unchanged from Admission Objective Active Medications: Acetaminophen (Tylenol Tab*) 650 mg PO Q4H PRN PRN Reason: FEVER/PAIN Albuterol (Ventolin Hfa Inhaler*) 2 puff INH Q4HR PRN PRN Reason: SHORTNESS OF BREATH Amlodipine Besylate (Norvasc Tab*) 10 mg PO DAILY [facility] Last Admin: 12/09/16 10:13 Dose: 10 mg Calcium Acetate (Phoslo Cap*) 3,335 mg PO TID [facility] Last Admin: 12/09/16 10:25 Dose: Not Given Carvedilol (Coreg Tab*) 25 mg PO BID [facility] Last Admin: 12/09/16 10:16 Dose: 25 mg Cinacalcet (Sensipar Tab*) 30 mg PO DAILY [facility] Last Admin: 12/09/16 10:19 Dose: 30 mg Citalopram Hydrobromide (Celexa Tab*) 20 mg PO DAILY [facility] Last Admin: 12/09/16 10:17 Dose: 20 mg Cyclobenzaprine HCl (Flexeril Tab*) 5 mg PO TID PRN PRN Reason: SPASMS Diphenhydramine HCl (Benadryl Po*) 25 mg PO Q6H PRN PRN Reason: ITCHING Last Admin: 12/09/16 10:17 Dose: 25 mg Docusate Sodium (Colace Cap*) 100 mg PO BID [facility] Last Admin: 12/09/16 10:19 Dose: 100 mg Duloxetine HCl (Cymbalta Cap*) 30 mg PO QAM [facility] Last Admin: 12/09/16 10:08 Dose: 30 mg Famotidine (Pepcid Tab*) 20 mg PO DAILY [facility] Last Admin: 12/09/16 10:18 Dose: 20 mg Folic Acid (Folvite Tab*) 0.5 mg PO DAILY [facility] Last Admin: 12/09/16 10:15 Dose: 0.5 mg Furosemide (Lasix Tab*) 20 mg PO DAILY [facility] Last Admin: 12/09/16 10:15 Dose: 20 mg Gabapentin (Neurontin Cap(*)) 300 mg PO TID [facility] Last Admin: 12/09/16 10:08 Dose: 300 mg Heparin Sodium (Porcine) (Heparin Vial(*)) 5,000 units SUBCUT Q8HR [facility] Last Admin: 12/09/16 06:35 Dose: Not Given Hydralazine HCl (Apresoline Tab*) 25 mg PO TID [facility] Last Admin: 12/09/16 10:14 Dose: 25 mg Lidocaine (Lidoderm 5% Patch*) 1 patch TRANSDERM 0900 [facility] Last Admin: 12/09/16 10:06 Dose: 1 patch Lisinopril (Prinivil Tab*) 10 mg PO DAILY [facility] Last Admin: 12/09/16 10:08 Dose: 10 mg Lorazepam (Ativan Tab(*)) 0.5 mg PO BID PRN PRN Reason: ANXIETY Lubiprostone (Amitiza (Nf)) 24 mcg PO BID [facility] Last Admin: 12/09/16 10:25 Dose: Not Given Meclizine HCl (Antivert Tab*) 25 mg PO Q8HR PRN PRN Reason: DIZZINESS Morphine Sulfate (Morphine Inj (Syringe)*) 4 mg IV Q4H PRN PRN Reason: PAIN Last Admin: 12/09/16 10:04 Dose: 4 mg Sucroferric Oxyhydroxide [ Velphoro] 2,000 Mg 2,000 mg PO AC [facility] Last Admin: 12/09/16 08:40 Dose: Not Given Omeprazole (Prilosec Cap*) 40 mg PO BID [facility] Last Admin: 12/09/16 10:31 Dose: Not Given Ondansetron HCl (Zofran Inj*) 4 mg IV Q6H PRN PRN Reason: NAUSEA Last Admin: 12/08/16 23:59 Dose: 4 mg Oxycodone HCl (Roxycodone Tab*) 15 mg PO Q4H PRN PRN Reason: PAIN Last Admin: 12/08/16 15:44 Dose: 15 mg Pancrelipase (Creon (Nf)) 12,000 units PO .QID AC [facility] Pharmacy Profile Note (Lidocaine Patch Remove*) 1 note N/A 2100 [facility] Last Admin: 12/09/16 00:06 Dose: 1 note Simethicone (Mylicon*) 80 mg PO Q6HR PRN PRN Reason: PAIN - ABDOMINAL Simvastatin (Zocor(Nf)) 5 mg PO DAILY [facility] Last Admin: 12/09/16 10:20 Dose: 5 mg Zolpidem Tartrate (Ambien Tab*) 10 mg PO BEDTIME PRN PRN Reason: INSOMNIA Vital Signs 12/08/16 12/08/16 12/08/16 13:24 13:25 13:40 Temperature 98.2 F 97.9 F Pulse Rate 80 78 Respiratory 24 24 18 Rate Blood Pressure 208/129 187/122 (mmHg) O2 Sat by Pulse 100 100 Oximetry 12/08/16 12/08/16 12/08/16 14:24 15:35 15:44 Temperature Pulse Rate Respiratory 20 20 20 Rate Blood Pressure (mmHg) O2 Sat by Pulse Oximetry 12/08/16 12/08/16 12/08/16 16:28 17:01 17:09 Temperature 97.9 F 98.6 F Pulse Rate 78 78 78 Respiratory 14 Rate Blood Pressure 187/122 199/122 188/138 (mmHg) O2 Sat by Pulse 100 100 Oximetry 12/08/16 12/08/16 12/08/16 17:35 17:44 17:45 Temperature Pulse Rate Respiratory 16 16 16 Rate Blood Pressure (mmHg) O2 Sat by Pulse Oximetry 12/08/16 12/08/16 12/08/16 17:59 19:45 20:00 Temperature Pulse Rate Respiratory 18 18 Rate Blood Pressure (mmHg) O2 Sat by Pulse 100 Oximetry 12/08/16 12/08/16 12/08/16 20:17 21:46 22:46 Temperature 98.4 F Pulse Rate 78 Respiratory 18 18 16 Rate Blood Pressure 149/89 (mmHg) O2 Sat by Pulse 100 Oximetry 12/08/16 12/08/16 12/09/16 23:10 23:53 00:46 Temperature 98.8 F Pulse Rate 83 78 Respiratory 18 16 Rate Blood Pressure 131/89 130/92 (mmHg) O2 Sat by Pulse 100 Oximetry 12/09/16 12/09/16 12/09/16 05:09 05:15 07:49 Temperature 99.1 F 98.1 F Pulse Rate 71 62 Respiratory 16 16 20 Rate Blood Pressure 105/67 151/91 (mmHg) O2 Sat by Pulse 100 98 Oximetry 12/09/16 12/09/16 12/09/16 10:04 10:08 10:17 Temperature Pulse Rate Respiratory 18 18 18 Rate Blood Pressure (mmHg) O2 Sat by Pulse Oximetry Oxygen Devices in Use Now: None Appearance: Male patient, OOB to chair, in NAD Eyes: PERRLA Ears/Nose/Mouth/Throat: Clear Oropharnyx, Mucous Membranes Moist Neck: NL Appearance and Movements; NL JVP Respiratory: Symmetrical Chest Expansion and Respiratory Effort, Clear to Auscultation Cardiovascular: NL Sounds; No Murmurs; No JVD, RRR Abdominal: NL Sounds; No Tenderness; No Distention Extremities: No Edema Skin: No Rash or Ulcers Neurological: Alert and Oriented x 3 Lines/Tubes/Other Access: Clean, Dry and Intact Peripheral IV Nutrition: Taking PO's Result Diagrams: 12/09/16 05:25 12/09/16 05:25 Additional Lab and Data: Lab Results 12/08/16 12/08/16 12/08/16 Range/Units 10:06 10:06 10:06 WBC 3.4 L (3.5-10.8) 10^3/ul RBC 3.51 L (4.0-5.4) 10^6/ul Hgb 9.9 L (14.0-18.0) g/dl Hct 31 L (42-52) % MCV 88 (80-94) fL MCH 28 (27-31) pg MCHC 32 (31-36) g/dl RDW 17 H (10.5-15) % Plt Count 125 L (150-450) 10^3/ul MPV 8 (7.4-10.4) um3 Neut % (Auto) 63.0 (38-83) % Lymph % (Auto) 17.9 L (25-47) % [place] % (Auto) 16.6 H (1-9) % Eos % (Auto) 1.4 (0-6) % Baso % (Auto) 1.1 (0-2) % Absolute Neuts (auto) 2.1 (1.5-7.7) 10^3/ul Absolute Lymphs (auto) 0.6 L (1.0-4.8) 10^3/ul Absolute Monos (auto) 0.6 (0-0.8) 10^3/ul Absolute Eos (auto) 0 (0-0.6) 10^3/ul Absolute Basos (auto) 0 (0-0.2) 10^3/ul Absolute Nucleated RBC 0.01 10^3/ul Nucleated RBC % 0.2 Sodium 137 (133-145) mmol/L Potassium 3.6 (3.5-5.0) mmol/L Chloride 94 L (101-111) mmol/L Carbon Dioxide 33 H (22-32) mmol/L Anion Gap 10 (2-11) mmol/L BUN 18 (6-24) mg/dL Creatinine 5.74 H (0.67-1.17) mg/dL Est GFR ( Amer) 12.9 (>60) Est GFR (Non-Af Amer) 10.0 (>60) BUN/Creatinine Ratio 3.1 L (8-20) Glucose 73 (70-100) mg/dL Lactic Acid 1.1 (0.5-2.0) mmol/L Calcium 9.1 (8.6-10.3) mg/dL Total Bilirubin 0.60 (0.2-1.0) mg/dL AST 29 (13-39) U/L ALT 13 (7-52) U/L Alkaline Phosphatase 71 (34-104) U/L Troponin I 0.03 (<0.04) ng/mL Total Protein 8.0 (6.4-8.9) g/dL Albumin 4.1 (3.2-5.2) g/dL Globulin 3.9 (2-4) g/dL Albumin/Globulin Ratio 1.1 (1-3) Microbiology and Other Data: Microbiology 12/08/16 14:20 Influenza Types A,B Antigen (PER) - Final Nasal Specimen received for Influenza A/B Molecular testing Assess/Plan/Problems-Billing Assessment: Mr. Templeton is a 66 yo male with a PMH of ESRD, CAD, afib, PVD, GERD, Hep C, anemia, chronic pain, and cardiomyopathy who presented to the ED on 12/08 with concern for chest pain and syncope. - Patient Problems (1) Chest pain Code(s): R07.9 - CHEST PAIN, UNSPECIFIED Comment: Stress test shows moderate fixed defect consistent with infarct and questionable small areas that may represent artifact vs reversible areas of ischemia, EF of 47% with stress. Discussed with Dr. Ruff who does not feel patient requires cardiac catheterization and that this is likely not ACS. Patient also with left rib fractures that are likely contributing to pain. Troponins relatively flat and improved from previous admissions at 0.03. (2) Syncope Code(s): R55 - SYNCOPE AND COLLAPSE Comment: ICD did not demonstrate any significant arrythmias. Orthostatic VS negative Suspect orthostasis post dialysis. Patient advised to review medication in relation to dialysis in order to prevent orthostasis. (3) End stage renal failure on dialysis Code(s): N18.6 - END STAGE RENAL DISEASE; Z99.2 - DEPENDENCE ON RENAL DIALYSIS Comment: Continue HD MWF. Follow up with Dr. Pratt and Dr. Dalal. (4) ICD (implantable cardioverter-defibrillator) in place Code(s): Z95.810 - PRESENCE OF AUTOMATIC (IMPLANTABLE) CARDIAC DEFIBRILLATOR Comment: ICD interrogation negative for any arrhythmias. (5) Coronary artery disease Code(s): I25.10 - ATHSCL HEART DISEASE OF [place] CORONARY ARTERY W/O ANG PCTRS Comment: Continue home medication regimen. (6) Hypertension Code(s): I10 - ESSENTIAL (PRIMARY) HYPERTENSION Comment: Controlled, SBP 120-150s. Continue amlodipine, carvedilol, lisinopril, furosemide. (7) DVT prophylaxis Code(s): OUL3782 - Comment: SQ heparin Status and Disposition: OBV admit. D/c to home.
--- NOTE | 2016-12-09 12:04 | EEG ---
ELECTROENCEPHALOGRAPHY: DATE OF STUDY: 12/08/16 - ROOM #452 REQUESTING PROVIDER: Rigoberto Rader NP PRIMARY CARE PHYSICIAN: Octaviano Pratt MD REASON FOR EEG: Syncope. CLINICAL PROBLEM: The patient is a 66-year-old male that was presented to the hospital, who was at dialysis today and developed sharp chest pain and he mentioned that "my legs went out." Complained of bilateral numbness in the legs. REPORT: This digital EEG was recorded using 21 scalp and ear, and 2 EKG electrodes. It was reviewed in referential and bipolar montages following reformatting in the 10-20 international electrode placement system. In the most awake state, the background consists of 10-20 microvolts, 10-11 Hz posterior dominant rhythm with adequate reactivity to eye opening. Faster frequencies including 5-15 microvolts, 16-24 Hz activities seen in the frontal leads. The patient remained awake during this study. CLINICAL IMPRESSION: This routine EEG in the awake state is within the range of normal range. CC: Octaviano Pratt MD * [id number]/[facility] #: [id number] [facility]
[2016-12-09 16:27] VITALS: BP 151/100
[2016-12-09] MEDS: oxyCODONE TAB* 5 MG TAB PO PRN (17:27)
--- NOTE | 2016-12-09 19:54 | CONS ---
INTERVENTIONAL CARDIOLOGY CONSULT REPORT: DATE OF CONSULT: 12/09/16 PRIMARY CARE PHYSICIAN: Tasneem Lucio MD TELEGRAPHIC TYPEWRITER MECHANIC: Lula Navarro MD HISTORY: A 66-year-old male with nonischemic cardiomyopathy; previous bypass grafting; mitral and tricuspid valve repair; and CKD, stage 5. He was admitted with Syncopal episode and chest pain, interventional cardiology was consulted after stress imaging. He is a fairly vague historian, has several symptoms. One is that his legs are weak, he had negative peripheral vascular imaging in 2014 without any ileofemoral stenosis. He does give a history of chronic back pain and presumably sciatica. He has apparently difficult to control hypertension, he is often in the 200s before dialysis, and sometimes after dialysis he is orthostatic and lightheaded, and yesterday he had a syncopal episode. He has a defibrillator for a nonischemic cardiomyopathy, it did not fire. According to the patient, he has no knowledge of his blood pressure when he has these orthostatic lightheadedness episodes with syncope. He usually has warning. He follows his defibrillator with Dr. Lei in [place]. He had a last cardiac cath in November, a year ago by Dr. Sweeney in [place] at which time, the diagonal had 70% ostial stenosis with an open JAMES graft and no other significant coronary disease. He did not have an LV gram, but 3 months later echo here showed global hypokinesis with LVEF of 25 to 30. Repeat echo last month showed improved LV function to 40 and again moderate pulmonary hypertension and moderate MR. He has had tricuspid and mitral valve repair in February 2014 in [place]. He tells me he fell several weeks ago when he had one of his orthostatic episodes, struck his chest and has had rib pain, since then that hurts when he takes a deep breath or coughs. He denies any other chest pain. Lexiscan today showed a mostly fixed lateral defect with some small area of reperfusion, which improved dramatically with attenuation correction. PAST MEDICAL HISTORY: CKD, stage 5; hypertension; history of atrial fibrillation; single-vessel disease; coronary artery disease post bypass; valvular heart disease, status post mitral and tricuspid repair with moderate pulmonary hypertension; nonischemic cardiomyopathy; chronic pain syndrome; status post ICD placement; hepatitis C; and chronic anemia. ALLERGIES: ASPIRIN AND DILAUDID. SOCIAL HISTORY: He is a former smoker. FAMILY HISTORY: Positive for heart disease. REVIEW OF SYSTEMS: Essentially noncontributory. PHYSICAL EXAM: He is not dyspneic or tachypnea, looks comfortable. His blood pressure today 151/91, heart rate in the 60s. His recorded blood pressure has been ranging widely from 208/129 to 99/68 over the past 3 to 4 weeks. His lungs are clear to percussion and auscultation, he has slightly bronchial breath sounds at the left base. There is no wheezing. JVP is not elevated. HEENT: Unremarkable. His cardiac exam is notable for a physiologic splitting of S2 and a very soft MR murmur. I do not hear a gallop. He has a ventral hernia, aorta is not palpable. Radial femoral pulses are palpable, pedals are somewhat diminished but palpable. He has no cyanosis, clubbing, or edema. LABORATORY DATA: EKG shows LVH, which is chronic. Nuclear medicine scan shows a fixed lateral defect with minimal reperfusion. His CBC shows chronic thrombocytopenia with a platelet count today of 106,000 and hemoglobin 9.1. Creatinine today is 8.1. Troponin is 0.03, 0.03, and 0.03. IMPRESSION: 1. Chest pain: His chest pain is musculoskeletal based on history. His imaging studies shows no ischemia. It shows a fixed defect consistent with his known nonischemic cardiomyopathy. He is not experiencing angina. A year ago, the JAMES graft to the diagonal was patent and he had no other obstructive disease. He does have known coronary artery disease, apparently he is allergic to aspirin. Plavix 75 mg daily would be a reasonable antiplatelet agent for long -term use. 2. Orthostatic lightheadedness with history of syncope: He is on a number of medications with potentially orthostatic side effects. He had a normal EEG. To better define the physiologic bases of his syncope and near syncope, it would be important to record his blood pressure when he is having one of these episodes in dialysis. Given his by history poorly-controlled hypertension, I would be reluctant to cut back on his antihypertensives without good reason. From a cardiac point of view, I do not think he needs any further testing presently. He can follow with Dr. Navarro as an outpatient. Thank you for the consultation. CC: Dr. Lucio; Dr. Navarro * [id number]/[facility] #: [id number] STEPHANIE
--- NOTE | 2016-12-10 04:52 | DS ---
MEDICINE DISCHARGE SUMMARY: DATE OF ADMISSION: 12/08/16 DATE OF DISCHARGE: 12/09/16 PROVIDER: Mel Park NP. ATTENDING PHYSICIAN: Dr. Natalia Peralta * (dictated by Mel Park NP). CONSULTING PHYSICIAN: Dr. Henrique Ruff, Cardiology. PRIMARY CARE PHYSICIAN: Dr. Octaviano Pratt. DIGITAL MANAGER: Dr. Dalal. PRIMARY DISCHARGE DIAGNOSES: 1. Chest pain. 2. Syncope. SECONDARY DISCHARGE DIAGNOSES: 1. End-stage renal disease. 2. Atrial fibrillation. 3. Coronary artery disease. 4. Peripheral vascular disease. 5. Gastroesophageal reflux disease. 6. Hepatitis C. 7. Anemia. 8. Chronic pain. 9. Cardiomyopathy. MEDICATIONS ON DISCHARGE: 1. PhosLo 3335 mg p.o. t.i.d. 2. Parul-Dameon 1 tab daily. 3. Azelastine 0.05% one drop both eyes b.i.d. 4. Albuterol 2 puffs inhaled q.4 hours p.r.n. 5. Albuterol nebulizer 1.25 mg inhaled four times a day p.r.n. 6. Gabapentin 300 mg t.i.d. 7. Furosemide 20 mg daily. 8. Folic acid 0.5 mg daily. 9. Famotidine 20 mg daily. 10. Lexapro 10 mg daily. 11. Docusate 100 mg b.i.d. 12. Voltaren 1% gel two applications topical b.i.d. p.r.n. 13. Cymbalta 30 mg q.a.m. 14. Flexeril 5 mg t.i.d. p.r.n. 15. Sensipar 30 mg daily. 16. Coreg 25 mg b.i.d. 17. Prilosec 40 mg b.i.d. 18. Nitroglycerin 0.4 mg sublingual q.5 minutes p.r.n. 19. Meclizine 25 mg q.8 hours p.r.n. 20. Amitiza 24 micrograms b.i.d. 21. Lisinopril 10 mg daily. 22. Lorazepam 0.5 mg b.i.d. p.r.n. 23. Acuvail 0.45% ophthalmic solution q.8 hours p.r.n. 24. Iron sucrose 100 mg IV q.14 days. 25. Amlodipine 10 mg daily. 26. Ambien 10 mg at bedtime p.r.n. 27. Velphoro 2000 mg before meals. 28. Simvastatin 5 mg daily. 29. Simethicone 80 mg q.6 hours p.r.n. 30. Ranitidine 150 mg daily. 31. Pancrelipase 93072 units four times a day before meals. 32. Oxycodone 15 mg q.4 hours p.r.n. 33. Zofran ODT 4 mg q.8 hours p.r.n. 34. Hydralazine 25 mg t.i.d. DIAGNOSTIC TESTING DURING THIS ADMISSION: CT brain on 12/08/16, showed no acute intracranial pathology. Chest x-ray from 12/08/16, impression: Vascular congestion with interval worsening. Small bilateral "pleural effusions." Postoperative changes. EEG 12/08/16, clinical impression: Routine EEG in the awake state is within the range of normal range. Nuclear med scan and stress test, impression: Moderate fixed defect consistent with infarct, with questionable small reversible defect suggestive of artifact versus small areas of ischemia with decreased ejection fraction. Assessment is intermediate risk. This stress test was discussed with Dr. Ruff, who thought this is mostly artifact, that there is no need for catheterization at this time. For full details please refer to the full report. HOSPITAL COURSE OF STAY: For full details please refer to the H and P provided by Rigoberto Rader NP. In summary, Mr. Templeton is a 66-year-old male with a past medical history as stated above, who presented to the ED after experiencing left -sided rib and chest pain as well as a syncopal episode during and after his dialysis. The patient was transported to the ER for further evaluation. The patient recently had an echocardiogram back on 11/12/16, estimated EF of 40%, and global hypokinesis with septal dyssynchrony. Due to his recent echo, another one was not repeated during this admission. However, he did have the following work up as previously noted. There was concern for potential seizure activity. The EEG was performed, as previously mentioned, and it was normal. The patient with negative orthostatic vital signs and his pacer interrogation showed no abnormal events and normal ICD function. During his stay the patient reported intermittent chest pain that is mostly at the left rib cage from previously known rib fractures. The patient has consistently stated that he feels that most of his problems stems from his leg weakness as his legs often give out; however, he cannot explain why he had a syncopal episode. He is felt and conveyed by Interventional Cardiology that the patient may have hypovolemia and may need to rearrange his medications relative to his hemodialysis, depending on his documented blood pressures, in order to avoid near syncopal and syncopal episodes. I did convey this to the patient who said that he will discuss this with his dialysis team. During this admission, the patient remained stable and was able to tolerate his testing. He declined to remain n.p.o. even when it was explained that the patient could require further cardiac intervention, stating that he needs to eat. Patient demonstrated a healthy appetite. He has been ambulating around the unit without difficulty using his walker and not requiring any assistance. He has requested to go home and states that he is no longer having any issues or chest pain and is ready for discharge. CONCERNS AT DISCHARGE: The patient will be discharged to home on 12/09/16, with a planned followup with Dr. Pratt. Discharge planning will help him obtain this appointment. The patient should also attend his dialysis session tomorrow morning, which he states that he has transportation in place to get him there. DIET: Renal diet. ACTIVITY: As tolerated. CONDITION: Stable. DISPOSITION: To home. TIME SPENT: Time spent on this discharge was approximately 45 minutes. Again, this is only a brief summary of the patient's hospital course of stay. For full details please refer to the full medical record. If you have any further questions or need further assistance, please feel free to contact me at [phone]. MEL PARK NP CC: Dr. Octaviano Pratt; Dr. Dalal * [id number]/[facility] #: [id number] STEPHANIE
--- NOTE | 2016-12-20 21:05 | ED ---
Aruna Briones Alok, scribed for Steven Kowalski MD on 12/08/16 at 1224 . HPI Chest Pain - HPI Summary HPI Summary: 66 y/o male presents to ED and c/o CP and leg pain. Pt states that the pain registers at a 10, and adds that he passed out a few weeks ago coming from dialysis and fractured several ribs. Pt took NTG with no effect and is allergic to aspirin and Dilaudid. Pt has a complicated PMHx, is a dialysis pt here, and has had multiple chest pain complaints in the past. - History of Current Complaint Chief Complaint: EDChestPainROMI Time Seen by Provider: 12/08/16 10:39 Hx Obtained From: Patient Onset/Duration: Atraumatic, Still Present Initial Severity: Moderate Current Severity: Moderate Pain Intensity: 10 Alleviating Factor(s): Nothing - NTG ineffective Associated Signs and Symptoms: Positive: Chest Pain, Other: - LE pain - Additional Pertinent History Primary Care Physician: [id number] - Allergy/Home Medications Allergies/Adverse Reactions: Allergies Allergy/AdvReac Type Severity Reaction Status Date / Time Aspirin Allergy Unknown See Comment Verified 12/01/16 10:37 Hydromorphone [From Dilaudid] AdvReac Intermediate Nausea And Verified 12/01/16 10:37 Vomiting PMH/Surg Hx/FS Hx/Imm Hx Endocrine/Hematology History: Reports: Hx Blood Transfusions, Hx Sickle Cell Disease - Was told had sickle cell at one point but denies, Hx Anemia Denies: Hx Anticoagulant Therapy, Hx Bone Marrow Disease, Hx Diabetes, Hx Thyroid Disease Cardiovascular History: Reports: Hx Angina, Hx Congestive Heart Failure, Hx Coronary Artery Disease, Hx Hypercholesterolemia, Hx Hypertension, Hx Pacemaker/ ICD, Hx Peripheral Vascular Disease, Hx Syncope, Hx Valvular Heart Disease, Other Cardiovascular Problems/Disorders - IDDM W/DIALYSIS 3XPER WK Denies: Hx Cardiomegaly, Hx Rheumatic Fever Respiratory History: Reports: Hx Asthma, Hx Chronic Obstructive Pulmonary Disease (COPD), Hx Pleural Effusion, Hx Pneumonia, Other Respiratory Problems/ Disorders - SOB Denies: Hx Pulmonary Edema, Hx Pulmonary Embolism, Hx Sleep Apnea GI History: Reports: Hx Cirrhosis, Hx Ulcer, Other GI Disorders - peptic ulcer Denies: Hx Crohn's Disease, Hx Gastroesophageal Reflux Disease, Hx Hiatal Hernia, Hx Irritable Bowel, Hx Jaundice History: Reports: Hx Acute Renal Failure, Hx Chronic Renal Failure, Hx Dialysis, Hx Renal Disease - ON DIALYSIS, Other Problems/Disorders - end stage renal disease, on dialysis Denies: Hx Kidney Infection, Hx Kidney Stones Musculoskeletal History: Reports: Hx Arthritis, Hx Back Problems - chronic pain , Hx Orthopedic Injury Denies: Hx Rheumatoid Arthritis, Hx Bursitis, Hx Tendonitis, Other Musculoskeletal History Sensory History: Reports: Hx Contacts or Glasses, Hx Glaucoma, Hx Vision Problem Denies: Hx Cataracts Opthamlomology History: Reports: Hx Contacts or Glasses, Hx Glaucoma, Hx Vision Problem Denies: Hx Cataracts Neurological History: Reports: Hx Headaches, Hx Migraine, Other Neuro Impairments/Disorders - depression Denies: Hx Dementia, Hx Seizures Psychiatric History: Reports: Hx Anxiety, Hx Depression Denies: Hx Eating Disorder, Hx Panic Disorder, Hx of Violent Episodes Against Others, Hx Substance Abuse - Cancer History Hx Chemotherapy: No Hx Radiation Therapy: No Hx Palliative Cancer Treatment: No - Surgical History Surgery Procedure, Year, and Place: HERNIA REPAIR 2012. APPENDECTOMY 2000. LEFT ARM AV FISTULA/CAD - REMOVED. CABG 1 vessel, mitral & tricuspid valve repair March 02, 2014 AT [facility] CONDITIONAL 5 UPTO 3T. POWER PORT. Mitral and tricuspid valve repair Hx Anesthesia Reactions: No - Immunization History Date of Tetanus Vaccine: Unkown Date of Influenza Vaccine: 2015 Infectious Disease History: No Infectious Disease History: Reports: Hx Hepatitis, History Other Infectious Disease - Hepatitis C Denies: Hx Clostridium Difficile, Hx Human Immunodeficiency Virus (HIV), Hx of Known/Suspected MRSA, Hx Shingles, Hx Tuberculosis, Hx Known/Suspected VRE, Hx Known/Suspected VRSA, Traveled Outside the in Last 30 Days - Family History Known Family History: Positive: None, Cardiac Disease, Hypertension, Other - CVA Family History: R & N/C - Social History Alcohol Use: None Alcohol Amount: former EtOH abuse Hx Substance Use: Yes Substance Use Type: Reports: Marijuana Substance Use Comment - Amount & Last Used: last used last night Hx Tobacco Use: Yes Smoking Status (MU): Former Smoker Type: Cigarettes Have You Smoked in the Last Year: No Review of Systems Negative: Fever, Chills Negative: Erythema Negative: Sore Throat Positive: Chest Pain Negative: Shortness Of Breath, Cough Negative: Abdominal Pain, Vomiting, Nausea Negative: dysuria, hematuria Negative: Myalgia, Edema Negative: Rash Neurological: Other - Negative: Dizziness All Other Systems Reviewed And Are Negative: Yes Physical Exam - Summary Physical Exam Summary: Constitutional: Well-developed, Well-nourished, Alert. (-) Distressed Skin: Warm, Dry HENT: Normocephalic; Atraumatic Eyes: Conjunctiva normal Neck: Musculoskeletal ROM normal neck. (-) JVD, (-) Stridor, (-) Tracheal deviation Cardio: Rhythm regular, rate normal, Heart sounds normal; Intact distal pulses; The pedal pulses are 2+ and symmetric. Radial pulses are 2+ and symmetric. (-) Murmur Pulmonary/Chest wall: Effort normal. (-) Respiratory distress, (-) Wheezes, (-) Rales Abd: Soft, (-) Tenderness, (-) Distension, (-) Guarding, (-) Rebound Musculoskeletal: (-) Edema Lymph: (-) Cervical adenopathy Neuro: Alert, Oriented x3 Psych: Mood and affect Normal Pt is tender to palpation all over Triage Information Reviewed: Yes Vital Signs On Initial Exam: Initial Vitals Temp Pulse Resp BP Pulse Ox 98.4 F 78 20 151/103 99 12/08/16 09:53 12/08/16 09:53 12/08/16 09:53 12/08/16 09:53 12/08/16 09:53 Vital Signs Reviewed: Yes Diagnostics - Vital Signs Vital Signs Temp Pulse Resp BP Pulse Ox 12/08/16 10:30 77 22 152/120 100 12/08/16 10:05 20 132/112 12/08/16 10:00 77 26 100 12/08/16 09:57 77 17 98 12/08/16 09:55 151/103 12/08/16 09:53 98.4 F 78 20 151/103 99 - Laboratory Lab Results: Lab Results 12/08/16 12/08/16 12/08/16 Range/Units 10:06 10:06 10:06 WBC 3.4 L (3.5-10.8) 10^3/ul RBC 3.51 L (4.0-5.4) 10^6/ul Hgb 9.9 L (14.0-18.0) g/dl Hct 31 L (42-52) % MCV 88 (80-94) fL MCH 28 (27-31) pg MCHC 32 (31-36) g/dl RDW 17 H (10.5-15) % Plt Count 125 L (150-450) 10^3/ul MPV 8 (7.4-10.4) um3 Neut % (Auto) 63.0 (38-83) % Lymph % (Auto) 17.9 L (25-47) % [place] % (Auto) 16.6 H (1-9) % Eos % (Auto) 1.4 (0-6) % Baso % (Auto) 1.1 (0-2) % Absolute Neuts (auto) 2.1 (1.5-7.7) 10^3/ul Absolute Lymphs (auto) 0.6 L (1.0-4.8) 10^3/ul Absolute Monos (auto) 0.6 (0-0.8) 10^3/ul Absolute Eos (auto) 0 (0-0.6) 10^3/ul Absolute Basos (auto) 0 (0-0.2) 10^3/ul Absolute Nucleated RBC 0.01 10^3/ul Nucleated RBC % 0.2 Sodium 137 (133-145) mmol/L Potassium 3.6 (3.5-5.0) mmol/L Chloride 94 L (101-111) mmol/L Carbon Dioxide 33 H (22-32) mmol/L Anion Gap 10 (2-11) mmol/L BUN 18 (6-24) mg/dL Creatinine 5.74 H (0.67-1.17) mg/dL Est GFR ( Amer) 12.9 (>60) Est GFR (Non-Af Amer) 10.0 (>60) BUN/Creatinine Ratio 3.1 L (8-20) Glucose 73 (70-100) mg/dL Lactic Acid 1.1 (0.5-2.0) mmol/L Calcium 9.1 (8.6-10.3) mg/dL Total Bilirubin 0.60 (0.2-1.0) mg/dL AST 29 (13-39) U/L ALT 13 (7-52) U/L Alkaline Phosphatase 71 (34-104) U/L Troponin I 0.03 (<0.04) ng/mL Total Protein 8.0 (6.4-8.9) g/dL Albumin 4.1 (3.2-5.2) g/dL Globulin 3.9 (2-4) g/dL Albumin/Globulin Ratio 1.1 (1-3) Result Diagrams: 12/09/16 05:25 12/09/16 05:25 Lab Statement: Any lab studies that have been ordered have been reviewed, and results considered in the medical decision making process. - Radiology CXR Xray Interpretation: Positive (See Comments) - IMPRESSION: VASCULAR CONGESTION WITH INTERVAL WORSENING. SMALL BILATERAL PLEURAL EFFUSIONS. POSTOPERATIVE CHANGES. Radiology Interpretation Completed By: Radiologist Chest Pain Course/Dx - Diagnoses Provider Diagnoses: CHEST PAIN Discharge - Discharge Plan Condition: Stable Disposition: ADMITTED TO [facility] The documentation as recorded by the Aruna casey Alok accurately reflects the service I personally performed and the decisions made by , Steven Kowalski MD.
== END 2016-12-09 17:41 | disposition home or self-care (01) ==
LOC: ED 09:35 → MEDTELE 12:22
PROVIDERS: ADMIT Internal Medicine; ATTEND Internal Medicine
DX: R07.9 Chest pain, unspecified (principal); R55 Syncope and collapse; I12.0 Hypertensive chronic kidney disease with stage 5 chronic kidney disease or end stage renal disease; N18.6 End stage renal disease; Z99.2 Dependence on renal dialysis; I25.10 Atherosclerotic heart disease of native coronary artery without angina pectoris; I73.9 Peripheral vascular disease, unspecified; K21.9 Gastro-esophageal reflux disease without esophagitis; B19.20 Unspecified viral hepatitis C without hepatic coma; D64.9 Anemia, unspecified; G89.29 Other chronic pain; I42.9 Cardiomyopathy, unspecified; Z95.1 Presence of aortocoronary bypass graft; Z95.810 Presence of automatic (implantable) cardiac defibrillator; I48.91 Unspecified atrial fibrillation; Z79.899 Other long term (current) drug therapy; Z87.891 Personal history of nicotine dependence; I45.10 Unspecified right bundle-branch block; R94.31 Abnormal electrocardiogram [ECG] [EKG]; Z88.6 Allergy status to analgesic agent; Z88.5 Allergy status to narcotic agent
CPT/HCPCS: 36415; 70450; 71010; 78452; 80048; 80053; 80061; 83036; 83605; 84484; 85025; 87502; 93005; 93017; 94760; 95816; 96374; 96375; 99284; A9270-GY; A9502; G0378; G8978-GP-CI; G8979-GP-CI; G8980-GP-CI; J0280; J1644; J2270; J2405; J2785

== ENCOUNTER 2016-12-15 09:55 | Emergency (ER) | payer MEDICARE, MEDICAID ==
[2016-12-15] MEDS ORDERED: Morphine INJ* 4 MG/ML 1 ML CARPUJECT IV ONE ×2 (12:24)
[2016-12-15 12:38] LABS: Hematocrit 32 % (42-52); Hemoglobin 10.2 g/dl (14.0-18.0); Mean Corpuscular HGB Conc 32 g/dl (31-36); Mean Corpuscular Hemoglobin 28 pg (27-31); Mean Corpuscular Volume 87 fL (80-94); Mean Platelet Volume 8 um3 (7.4-10.4); Red Cell Distribution Width 16 % (10.5-15); White Blood Count 3.9 10^3/ul (3.5-10.8)
[2016-12-15 12:56] LABS: Albumin 4.3 g/dL (3.2-5.2); BUN/Creatinine Ratio 3.4 (8-20); Calcium 9.5 mg/dL (8.6-10.3); EGFR African American 12.5 (>60); EGFR Non-African American 9.7 (>60); Globulin 4.1 g/dL (2-4); Magnesium 2.4 mg/dL (1.9-2.7); Potassium 4.2 mmol/L (3.5-5.0); Total Bilirubin 0.6 mg/dL (0.2-1.0); Total Protein 8.4 g/dL (6.4-8.9)
[2016-12-15 12:57] LABS: Troponin I 0.03 ng/mL (<0.04)
[2016-12-15 13:35] LABS: TSH (Thyroid Stimulating Horm) 2.6 mcIU/mL (0.34-5.60)
[2016-12-15] MEDS ORDERED: Metoprolol Tartrate IV* 1 MG/ML 5 ML VIAL IV ONE (15:06)
[2016-12-15 16:31] VITALS: BP 191/102
--- NOTE | 2016-12-16 07:59 | ED ---
Nawaf Briones Adam, scribed for Steven Kowalski MD on 12/15/16 at 1233 . Complex/Multi-Sys Presentation - HPI Summary HPI Summary: 66 year old male arrived to [facility] complaining of general pain and weakness everywhere in his body, particularly in his lower legs. His pain is chronic but was exacerbated after dialysis, which he was only able to tolerate for 30 minutes this morning. His weakness is further exacerbated by walking. Additionally, the patient reported very painful hemorrhoids and excessive hematochezia. He reports taking pain medication at home, and denies any PMHx of DM. - History Of Current Complaint Chief Complaint: EDGeneral Time Seen by Provider: 12/15/16 11:57 Hx Obtained From: Patient Onset/Duration: Gradual Onset Timing: Constant Severity Currently: Moderate Severity Initially: Moderate Associated Signs And Symptoms: Positive: Weakness - general bilateral lower extremity weakness (chronic), Other - hematochezia - Allergies/Home Medications Allergies/Adverse Reactions: Allergies Allergy/AdvReac Type Severity Reaction Status Date / Time Aspirin Allergy Unknown See Comment Verified 12/01/16 10:37 Hydromorphone [From Dilaudid] AdvReac Intermediate Nausea And Verified 12/01/16 10:37 Vomiting Home Medications: Home Medications Acetaminophen TAB* [Tylenol TAB*] 650 mg PO Q8HR PRN 12/15/16 [History Confirmed 12/15/16] B-Complex W/ C & Folic Acid [Nephro-Dameon] 1 tab PO DAILY 12/15/16 [History Confirmed 12/15/16] Simvastatin TAB(NF) [Zocor(NF)] 10 mg PO DAILY 12/15/16 [History Confirmed 12/15] Sodium Polystyrene Sulfonate [Kionex] 15 gm PO DAILY PRN 12/15/16 [History Confirmed 12/15/16] diPHENhydraMINE PO* [Benadryl PO*] 25 mg PO DAILY PRN 12/15/16 [History Confirmed 12/15/16] diPHENhydraMINE PO* [Benadryl PO*] 50 mg PO DAILY PRN 12/15/16 [History Confirmed 12/15/16] PMH/Surg Hx/FS Hx/Imm Hx Endocrine/Hematology History: Reports: Hx Blood Transfusions, Hx Sickle Cell Disease - Was told had sickle cell at one point but denies, Hx Anemia Denies: Hx Anticoagulant Therapy, Hx Bone Marrow Disease, Hx Diabetes, Hx Thyroid Disease Cardiovascular History: Reports: Hx Angina, Hx Congestive Heart Failure, Hx Coronary Artery Disease, Hx Hypertension, Hx Pacemaker/ICD, Hx Peripheral Vascular Disease, Hx Syncope, Other Cardiovascular Problems/Disorders - IDDM W/ DIALYSIS 3XPER WK Denies: Hx Cardiomegaly, Hx Hypercholesterolemia, Hx Myocardial Infarction, Hx Rheumatic Fever, Hx Valvular Heart Disease Respiratory History: Reports: Hx Asthma, Hx Chronic Obstructive Pulmonary Disease (COPD), Hx Pleural Effusion, Hx Pneumonia, Other Respiratory Problems/ Disorders - SOB Denies: Hx Pulmonary Edema, Hx Pulmonary Embolism, Hx Sleep Apnea GI History: Reports: Hx Cirrhosis, Hx Gastroesophageal Reflux Disease, Hx Ulcer , Other GI Disorders - peptic ulcer Denies: Hx Crohn's Disease, Hx Hiatal Hernia, Hx Irritable Bowel, Hx Jaundice History: Reports: Hx Acute Renal Failure, Hx Chronic Renal Failure, Hx Dialysis, Hx Renal Disease - ON DIALYSIS, Other Problems/Disorders - end stage renal disease, on dialysis Denies: Hx Kidney Infection, Hx Kidney Stones Musculoskeletal History: Reports: Hx Arthritis, Hx Back Problems - chronic pain , Hx Orthopedic Injury Denies: Hx Rheumatoid Arthritis, Hx Bursitis, Hx Tendonitis, Other Musculoskeletal History Sensory History: Reports: Hx Contacts or Glasses, Hx Glaucoma, Hx Vision Problem Denies: Hx Cataracts Opthamlomology History: Reports: Hx Contacts or Glasses, Hx Glaucoma, Hx Vision Problem Denies: Hx Cataracts Neurological History: Reports: Hx Headaches, Hx Migraine, Other Neuro Impairments/Disorders - depression Denies: Hx Dementia, Hx Seizures Psychiatric History: Reports: Hx Anxiety, Hx Depression Denies: Hx Eating Disorder, Hx Panic Disorder, Hx Suicide Attempt, Hx of Violent Episodes Against Others, Hx Substance Abuse - Cancer History Hx Chemotherapy: No Hx Radiation Therapy: No Hx Palliative Cancer Treatment: No - Surgical History Surgery Procedure, Year, and Place: HERNIA REPAIR 2012. APPENDECTOMY 2000. LEFT ARM AV FISTULA/CAD - REMOVED. CABG 1 vessel, mitral & tricuspid valve repair March 02, 2014 AT [facility] CONDITIONAL 5 UPTO 3T. POWER PORT. Mitral and tricuspid valve repair Hx Anesthesia Reactions: No - Immunization History Date of Tetanus Vaccine: 2014 Date of Influenza Vaccine: Fall 2015 Infectious Disease History: No Infectious Disease History: Reports: Hx Hepatitis, History Other Infectious Disease - Hepatitis C Denies: Hx Clostridium Difficile, Hx Human Immunodeficiency Virus (HIV), Hx of Known/Suspected MRSA, Hx Shingles, Hx Tuberculosis, Hx Known/Suspected VRE, Hx Known/Suspected VRSA, Traveled Outside the [place] in Last 30 Days - Family History Known Family History: Positive: Cardiac Disease, Hypertension, Other - CVA Family History: R & N/C - Social History Alcohol Use: None Alcohol Amount: former EtOH abuse Hx Substance Use: Yes Substance Use Type: Reports: Marijuana Substance Use Comment - Amount & Last Used: last used last night Hx Tobacco Use: Yes Smoking Status (MU): Former Smoker Type: Cigarettes Have You Smoked in the Last Year: No Review of Systems Negative: Fever, Chills Negative: Erythema Negative: Sore Throat Negative: Chest Pain Negative: Shortness Of Breath, Cough Negative: Abdominal Pain, Vomiting, Nausea Positive: other - hematochezia. Negative: dysuria, hematuria Negative: Myalgia, Edema Neurological: Other - no dizziness Positive: Weakness - generalized bilateral lower extremity weakness All Other Systems Reviewed And Are Negative: Yes Physical Exam - Summary Physical Exam Summary: Constitutional: Well-developed, Well-nourished, Alert. (-) Distressed Skin: Warm, Dry HENT: Normocephalic; Atraumatic Eyes: Conjunctiva normal Neck: Musculoskeletal ROM normal neck. (-) JVD, (-) Stridor, (-) Tracheal deviation Cardio: Rhythm regular, rate normal, Heart sounds normal; Intact distal pulses; The pedal pulses are 2+ and symmetric. Radial pulses are 2+ and symmetric. (-) Murmur Pulmonary/Chest wall: Effort normal. (-) Respiratory distress, (-) Wheezes, (-) Rales Abd: Soft, (-) Tenderness, (-) Distension, (-) Guarding, (-) Rebound Rectal Exam: External Hemorrhoids, no Thrombosis Musculoskeletal: (-) Edema Lymph: (-) Cervical adenopathy Neuro: Alert, Oriented x3 Psych: Mood and affect Normal Triage Information Reviewed: Yes Vital Signs On Initial Exam: Initial Vitals Temp Pulse Resp BP Pulse Ox 98.9 F 85 20 165/97 98 12/15/16 10:12/15/16 10:12/15/16 10:01 12/15/16 10:12/15/16 10:01 Vital Signs Reviewed: Yes Diagnostics - Vital Signs Vital Signs Temp Pulse Resp BP Pulse Ox 12/15/16 10:01 98.9 F 85 20 165/97 98 - Laboratory Lab Results: Lab Results 12/15/16 12/15/16 12/15/16 Range/Units 12:30 12:30 12:30 WBC 3.9 (3.5-10.8) 10^3/ul RBC 3.70 L (4.0-5.4) 10^6/ul Hgb 10.2 L (14.0-18.0) g/dl Hct 32 L (42-52) % MCV 87 (80-94) fL MCH 28 (27-31) pg MCHC 32 (31-36) g/dl RDW 16 H (10.5-15) % Plt Count 128 L (150-450) 10^3/ul MPV 8 (7.4-10.4) um3 Neut % (Auto) 62.3 (38-83) % Lymph % (Auto) 15.8 L (25-47) % [place] % (Auto) 18.6 H (1-9) % Eos % (Auto) 1.7 (0-6) % Baso % (Auto) 1.6 (0-2) % Absolute Neuts (auto) 2.4 (1.5-7.7) 10^3/ul Absolute Lymphs (auto) 0.6 L (1.0-4.8) 10^3/ul Absolute Monos (auto) 0.7 (0-0.8) 10^3/ul Absolute Eos (auto) 0.1 (0-0.6) 10^3/ul Absolute Basos (auto) 0.1 (0-0.2) 10^3/ul Absolute Nucleated RBC 0 10^3/ul Nucleated RBC % 0 Sodium 135 (133-145) mmol/L Potassium 4.2 (3.5-5.0) mmol/L Chloride 94 L (101-111) mmol/L Carbon Dioxide 35 H (22-32) mmol/L Anion Gap 6 (2-11) mmol/L BUN 20 (6-24) mg/dL Creatinine 5.91 H (0.67-1.17) mg/dL Est GFR ( Amer) 12.5 (>60) Est GFR (Non-Af Amer) 9.7 (>60) BUN/Creatinine Ratio 3.4 L (8-20) Glucose 84 (70-100) mg/dL Lactic Acid 0.7 (0.5-2.0) mmol/L Calcium 9.5 (8.6-10.3) mg/dL Magnesium 2.4 (1.9-2.7) mg/dL Total Bilirubin 0.60 (0.2-1.0) mg/dL AST 26 (13-39) U/L ALT 13 (7-52) U/L Alkaline Phosphatase 75 (34-104) U/L Troponin I 0.03 (<0.04) ng/mL Total Protein 8.4 (6.4-8.9) g/dL Albumin 4.3 (3.2-5.2) g/dL Globulin 4.1 H (2-4) g/dL Albumin/Globulin Ratio 1.0 (1-3) TSH 2.60 (0.34-5.60) mcIU/mL Result Diagrams: 12/15/16 12:30 12/15/16 12:30 Lab Statement: Any lab studies that have been ordered have been reviewed, and results considered in the medical decision making process. - Additional Comments Diagnostic Additional Comments: Troponin I - 0.03 Complex Multi-Symp Course/Dx - Diagnoses Provider Diagnoses: Uncontrolled hypertension, ESRD (end stage renal disease), Medication noncompliance - Physician Notifications Discussed Care Of Patient With: Hospitalist at 15:37. She states that the patient is regularly hypertensive due to noncompliance with his HTN medication and that he often becomes hypotensive when he takes his medication. He can manage his HTN at home. He does not have any chest pain or anginal symptoms. Discharge - Discharge Plan Condition: Stable Disposition: HOME Patient Education Materials: Hypertension (ED), End Stage Kidney Disease (ED) Referrals: Octaviano Pratt MD [Primary Care Provider] - Additional Instructions: Follow up with Dr. Pratt in 1-2 days. The documentation as recorded by the Nawaf casey Adam accurately reflects the service I personally performed and the decisions made by , Steven Kowalski MD.
== END 2016-12-15 16:31 | disposition home or self-care (01) ==
LOC: ED 09:55
DX: I10 Essential (primary) hypertension (principal); N18.6 End stage renal disease; R53.1 Weakness; K92.1 Melena; Z87.891 Personal history of nicotine dependence
CPT/HCPCS: 36415; 80053; 83605; 83735; 84443; 84484; 85025; 96374; 96376; 99283; J2270

== ENCOUNTER 2016-12-29 09:35 | Emergency (ER) | payer MEDICARE, MEDICAID ==
[2016-12-29] MEDS ORDERED: Ondansetron INJ* 2 MG/ML VIAL IV ONE (12:16)
[2016-12-29] MEDS ORDERED: Morphine INJ* 4 MG/ML 1 ML CARPUJECT IV ONE (12:25)
[2016-12-29 12:51] LABS: Hematocrit 26 % (42-52); Hemoglobin 8.4 g/dl (14.0-18.0); Mean Corpuscular HGB Conc 32 g/dl (31-36); Mean Corpuscular Hemoglobin 27 pg (27-31); Mean Corpuscular Volume 86 fL (80-94); Mean Platelet Volume 8 um3 (7.4-10.4); Red Blood Count 3.09 10^6/ul (4.0-5.4); Red Cell Distribution Width 18 % (10.5-15)
--- NOTE | 2016-12-29 13:00 | ED ---
Abdominal Pain/Male - HPI Summary HPI Summary: Patient presents with his usual symptoms of abdominal pain and bilateral leg pain, for which he has had multiple evaluations. He had dialysis this AM and came by the ED afterwards to discuss his symptoms. They have been present for months, and his PCP is treating him with oxycodone 15mg every 3 hours, which he says do not give him relief. Today his pain has not changed. He hurt his ribs a month ago after a fall, and they still hurt, but he denies new onset of SOB, CP or back pain. He ambulates with a walker at baseline, but says this has not prevented him from falling. He used to have a visiting nurse come to his house a few years ago but that conflicted with his 3 times a week dialysis, so it was cancelled. He is not interested in being placed where he can improve. - History of Current Complaint Chief Complaint: EDGeneral Stated Complaint: LEG PAIN, WEAKNESS , NEEDS TO GET BLOOD CHECK Time Seen by Provider: 12/29/16 10:14 Hx Obtained From: Patient Onset/Duration: Gradual Onset Timing: Constant Severity Initially: Mild Severity Currently: Severe Pain Intensity: 10 Location: Umbilical Radiates: No Character: Dull Aggravating Factor(s): Deep Breaths Alleviating Factor(s): Nothing Associated Signs And Symptoms: Positive: Negative - Allergies/Home Medications Allergies/Adverse Reactions: Allergies Allergy/AdvReac Type Severity Reaction Status Date / Time Aspirin Allergy Unknown See Comment Verified 12/01/16 10:37 Hydromorphone [From Dilaudid] AdvReac Intermediate Nausea And Verified 12/01/16 10:37 Vomiting Home Medications: Home Medications LORazepam TAB(*) [Ativan 1 MG TAB (*)] 0.5 - 1 mg PO BID PRN MDD 2 mg 12/29/16 [ History Confirmed 12/29/16] PMH/Surg Hx/FS Hx/Imm Hx Endocrine/Hematology History: Reports: Hx Blood Transfusions, Hx Sickle Cell Disease - Was told had sickle cell at one point but denies, Hx Anemia Denies: Hx Anticoagulant Therapy, Hx Bone Marrow Disease, Hx Diabetes, Hx Thyroid Disease Cardiovascular History: Reports: Hx Angina, Hx Congestive Heart Failure, Hx Coronary Artery Disease, Hx Hypertension, Hx Pacemaker/ICD, Hx Peripheral Vascular Disease, Hx Syncope, Other Cardiovascular Problems/Disorders - IDDM W/ DIALYSIS 3XPER WK Denies: Hx Cardiomegaly, Hx Hypercholesterolemia, Hx Myocardial Infarction, Hx Rheumatic Fever, Hx Valvular Heart Disease Respiratory History: Reports: Hx Asthma, Hx Chronic Obstructive Pulmonary Disease (COPD), Hx Pleural Effusion, Hx Pneumonia, Other Respiratory Problems/ Disorders - SOB Denies: Hx Pulmonary Edema, Hx Pulmonary Embolism, Hx Sleep Apnea GI History: Reports: Hx Cirrhosis, Hx Gastroesophageal Reflux Disease, Hx Ulcer , Other GI Disorders - peptic ulcer Denies: Hx Crohn's Disease, Hx Hiatal Hernia, Hx Irritable Bowel, Hx Jaundice History: Reports: Hx Acute Renal Failure, Hx Chronic Renal Failure, Hx Dialysis, Hx Renal Disease - ON DIALYSIS, Other Problems/Disorders - end stage renal disease, on dialysis Denies: Hx Kidney Infection, Hx Kidney Stones Musculoskeletal History: Reports: Hx Arthritis, Hx Back Problems - chronic pain , Hx Orthopedic Injury Denies: Hx Rheumatoid Arthritis, Hx Bursitis, Hx Tendonitis, Other Musculoskeletal History Sensory History: Reports: Hx Contacts or Glasses, Hx Glaucoma, Hx Vision Problem Denies: Hx Cataracts Opthamlomology History: Reports: Hx Contacts or Glasses, Hx Glaucoma, Hx Vision Problem Denies: Hx Cataracts Neurological History: Reports: Hx Headaches, Hx Migraine, Other Neuro Impairments/Disorders - depression Denies: Hx Dementia, Hx Seizures Psychiatric History: Reports: Hx Anxiety, Hx Depression Denies: Hx Eating Disorder, Hx Panic Disorder, Hx Suicide Attempt, Hx of Violent Episodes Against Others, Hx Substance Abuse - Cancer History Hx Chemotherapy: No Hx Radiation Therapy: No Hx Palliative Cancer Treatment: No - Surgical History Surgery Procedure, Year, and Place: HERNIA REPAIR 2012. APPENDECTOMY 2000. LEFT ARM AV FISTULA/CAD - REMOVED. CABG 1 vessel, mitral & tricuspid valve repair March 02, 2014 AT [facility] CONDITIONAL 5 UPTO 3T. POWER PORT. Mitral and tricuspid valve repair Hx Anesthesia Reactions: No - Immunization History Date of Tetanus Vaccine: 2014 Date of Influenza Vaccine: Fall 2015 Infectious Disease History: No Infectious Disease History: Reports: Hx Hepatitis, History Other Infectious Disease - Hepatitis C Denies: Hx Clostridium Difficile, Hx Human Immunodeficiency Virus (HIV), Hx of Known/Suspected MRSA, Hx Shingles, Hx Tuberculosis, Hx Known/Suspected VRE, Hx Known/Suspected VRSA, Traveled Outside the [place] in Last 30 Days - Family History Known Family History: Positive: None, Cardiac Disease, Hypertension, Other - CVA Family History: R & N/C - Social History Occupation: Unemployed Lives: Alone Alcohol Use: None Alcohol Amount: former EtOH abuse Hx Substance Use: Yes Substance Use Type: Reports: Marijuana Substance Use Comment - Amount & Last Used: last used last night Hx Tobacco Use: Yes Smoking Status (MU): Former Smoker Type: Cigarettes Have You Smoked in the Last Year: No Review of Systems Negative: Fever, Chills Negative: Chest Pain Negative: Shortness Of Breath Positive: Abdominal Pain - umbilical Positive: Myalgia Negative: Weakness, Paresthesia, Numbness All Other Systems Reviewed And Are Negative: Yes Physical Exam Triage Information Reviewed: Yes Vital Signs On Initial Exam: Initial Vitals Temp Pulse Resp BP Pulse Ox 98.6 F 87 20 73/54 96 12/29/16 09:41 12/29/16 09:41 12/29/16 09:41 12/29/16 09:41 12/29/16 09:41 Vital Signs Reviewed: Yes Appearance: Positive: Well-Appearing, Well-Nourished, Pain Distress Skin: Positive: Warm, Skin Color Reflects Adequate Perfusion, Dry, Tender Head/Face: Positive: Normal Head/Face Inspection Eyes: Positive: EOMI, KINGS, Conjunctiva Clear ENT: Positive: Hearing grossly normal Neck: Positive: Supple, Nontender, No Lymphadenopathy Respiratory/Lung Sounds: Positive: Clear to Auscultation, Breath Sounds Present Cardiovascular: Positive: RRR Abdomen Description: Positive: Soft. Negative: Nontender - TTP umbilical region , CVA Tenderness (R), Distended, Guarding, Hepatomegaly, McBurney's Point Tenderness, Peritoneal Signs, Pulsatile Mass, Splenomegaly Bowel Sounds: Positive: Present Musculoskeletal: Positive: Strength/ROM Intact - intact with pain to touch, Pain @ - TTP to light touch in bilateral lower extremities. Negative: Soledad Sign Left, Soledad Sign Right, Edema Left, Edema Right Neurological: Positive: Sensory/Motor Intact, Alert, Oriented to Person Place, Time, NV Bundle Intact Distally Psychiatric: Positive: Affect/Mood Appropriate AVPU Assessment: Alert - Ikan Coma Scale Coma Scale Total: 15 Diagnostics - Vital Signs Vital Signs Temp Pulse Resp BP Pulse Ox 12/29/16 12:30 18 12/29/16 11:34 81 18 160/97 94 12/29/16 09:41 98.6 F 87 20 73/54 96 - Laboratory Result Diagrams: 12/29/16 12:25 12/29/16 12:25 Lab Statement: Any lab studies that have been ordered have been reviewed, and results considered in the medical decision making process. Re-Evaluation - Re-Evaluation First Eval Re-Evaluation Time: 13:00 Change: Improved Comment: Pain has improved but patient feels he is getting a headache now and requests benadryl, which usually helps. Second Eval Re-Evaluation Time: 14:30 Change: Improved Comment: Headache has improved and he feels ready for discharge. Abdominal Pain Fem Course/Dx - Course Course Of Treatment: I recommended to the patient that he contact his PCP for better pain management. - Diagnoses Differential Diagnosis/HQI/PQRI: Benign Prostatic Hyperplasia, Bowel Obstruction , Constipation, Hepatitis, Pancreatitis, Other - chronic pain Provider Diagnoses: Abdominal pain, Bilateral leg pain Discharge - Discharge Plan Condition: Stable Disposition: HOME Patient Education Materials: Chronic Pain (ED), Abdominal Pain (ED) Referrals: Octaviano Pratt MD [Primary Care Provider] - Additional Instructions: Please contact your primary care provider to discuss your pain management options. You may need referral to a pain management service. Return to the emergency department if your symptoms worsen.
[2016-12-29 13:14] LABS: Troponin I 0.03 ng/mL (<0.04)
[2016-12-29 13:15] LABS: ALT 11 U/L (7-52); AST 21 U/L (13-39); Albumin 3.8 g/dL (3.2-5.2); Alkaline Phosphatase 72 U/L (34-104); Anion Gap 9 mmol/L (2-11); BUN/Creatinine Ratio 4.1 (8-20); Blood Urea Nitrogen 34 mg/dL (6-24); C Reactive Protein < 1.00 mg/L (< 5.00); CO2 Carbon Dioxide 33 mmol/L (22-32); Calcium 8.5 mg/dL (8.6-10.3); Chloride 94 mmol/L (101-111); EGFR African American 8.4 (>60); EGFR Non-African American 6.5 (>60); Globulin 3.8 g/dL (2-4); Glucose 71 mg/dL (70-100); Potassium 4.5 mmol/L (3.5-5.0); Sodium 136 mmol/L (133-145); Total Protein 7.6 g/dL (6.4-8.9)
[2016-12-29] MEDS ORDERED: diPHENhydraMINE IV* 50 MG/ML 1 ml VIAL (BENADRYL) IV ONE (13:25)
[2016-12-29 15:41] VITALS: BP 156/95
== END 2016-12-29 15:39 | disposition home or self-care (01) ==
LOC: ED 09:35
DX: R10.9 Unspecified abdominal pain (principal); M79.605 Pain in left leg; M79.604 Pain in right leg; Z87.891 Personal history of nicotine dependence; M79.1 Myalgia
CPT/HCPCS: 36415; 80053; 84484; 85025; 86140; 96374; 96375; 99282; J1200; J2270; J2405

== ENCOUNTER 2016-12-31 15:20 | Emergency (ER) | payer MEDICARE, MEDICAID ==
[2016-12-31 15:24] VITALS: BP 100/80
--- NOTE | 2016-12-31 20:43 | ED ---
Nehal Briones Erika, scribed for Zain Templeton MD on 12/31/16 at 1606 . Complex/Multi-Sys Presentation - HPI Summary HPI Summary: Patient is a 66-year-old male presenting to the ED for dialysis treatment. Patient reports that he was told to come to the ED to receive his dialysis, which he missed yesterday. He has no complaints. - History Of Current Complaint Chief Complaint: EDUrogenitalProblems Time Seen by Provider: 12/31/16 15:57 Hx Obtained From: Patient Severity Currently: None - Allergies/Home Medications Allergies/Adverse Reactions: Allergies Allergy/AdvReac Type Severity Reaction Status Date / Time Aspirin Allergy Unknown See Comment Verified 12/01/16 10:37 Hydromorphone [From Dilaudid] AdvReac Intermediate Nausea And Verified 12/01/16 10:37 Vomiting PMH/Surg Hx/FS Hx/Imm Hx Endocrine/Hematology History: Reports: Hx Blood Transfusions, Hx Sickle Cell Disease - Was told had sickle cell at one point but denies, Hx Anemia Denies: Hx Anticoagulant Therapy, Hx Bone Marrow Disease, Hx Diabetes, Hx Thyroid Disease Cardiovascular History: Reports: Hx Angina, Hx Congestive Heart Failure, Hx Coronary Artery Disease, Hx Hypertension, Hx Pacemaker/ICD, Hx Peripheral Vascular Disease, Hx Syncope, Other Cardiovascular Problems/Disorders - IDDM W/ DIALYSIS 3XPER WK Denies: Hx Cardiomegaly, Hx Hypercholesterolemia, Hx Myocardial Infarction, Hx Rheumatic Fever, Hx Valvular Heart Disease Respiratory History: Reports: Hx Asthma, Hx Chronic Obstructive Pulmonary Disease (COPD), Hx Pleural Effusion, Hx Pneumonia, Other Respiratory Problems/ Disorders - SOB Denies: Hx Pulmonary Edema, Hx Pulmonary Embolism, Hx Sleep Apnea GI History: Reports: Hx Cirrhosis, Hx Gastroesophageal Reflux Disease, Hx Ulcer , Other GI Disorders - peptic ulcer Denies: Hx Crohn's Disease, Hx Hiatal Hernia, Hx Irritable Bowel, Hx Jaundice History: Reports: Hx Acute Renal Failure, Hx Chronic Renal Failure, Hx Dialysis, Hx Renal Disease - ON DIALYSIS, Other Problems/Disorders - end stage renal disease, on dialysis Denies: Hx Kidney Infection, Hx Kidney Stones Musculoskeletal History: Reports: Hx Arthritis, Hx Back Problems - chronic pain , Hx Orthopedic Injury Denies: Hx Rheumatoid Arthritis, Hx Bursitis, Hx Tendonitis, Other Musculoskeletal History Sensory History: Reports: Hx Contacts or Glasses, Hx Glaucoma, Hx Vision Problem Denies: Hx Cataracts Opthamlomology History: Reports: Hx Contacts or Glasses, Hx Glaucoma, Hx Vision Problem Denies: Hx Cataracts Neurological History: Reports: Hx Headaches, Hx Migraine, Other Neuro Impairments/Disorders - depression Denies: Hx Dementia, Hx Seizures Psychiatric History: Reports: Hx Anxiety, Hx Depression Denies: Hx Eating Disorder, Hx Panic Disorder, Hx Suicide Attempt, Hx of Violent Episodes Against Others, Hx Substance Abuse - Cancer History Hx Chemotherapy: No Hx Radiation Therapy: No Hx Palliative Cancer Treatment: No - Surgical History Surgery Procedure, Year, and Place: HERNIA REPAIR 2012. APPENDECTOMY 2000. LEFT ARM AV FISTULA/CAD - REMOVED. CABG 1 vessel, mitral & tricuspid valve repair March 02, 2014 AT [facility] CONDITIONAL 5 UPTO 3T. POWER PORT. Mitral and tricuspid valve repair Hx Anesthesia Reactions: No - Immunization History Date of Tetanus Vaccine: 2014 Date of Influenza Vaccine: Fall 2015 Infectious Disease History: Yes Infectious Disease History: Reports: Hx Hepatitis, History Other Infectious Disease - Hepatitis C Denies: Hx Clostridium Difficile, Hx Human Immunodeficiency Virus (HIV), Hx of Known/Suspected MRSA, Hx Shingles, Hx Tuberculosis, Hx Known/Suspected VRE, Hx Known/Suspected VRSA, Traveled Outside the [place] in Last 30 Days - Family History Known Family History: Positive: Cardiac Disease, Hypertension, Other - CVA - Social History Alcohol Use: None Alcohol Amount: former EtOH abuse Hx Substance Use: Yes Substance Use Type: Reports: Marijuana Substance Use Comment - Amount & Last Used: last used last night Hx Tobacco Use: Yes Smoking Status (MU): Former Smoker Type: Cigarettes Have You Smoked in the Last Year: No Review of Systems Negative: Fever Negative: Arthralgia, Myalgia All Other Systems Reviewed And Are Negative: Yes Physical Exam Triage Information Reviewed: Yes Vital Signs On Initial Exam: Initial Vitals Temp Pulse Resp BP Pulse Ox 97.8 F 84 18 100/80 94 12/31/16 15:22 12/31/16 15:22 12/31/16 15:22 12/31/16 15:22 12/31/16 15:22 Vital Signs Reviewed: Yes Appearance: Positive: Well-Appearing, No Pain Distress, Well-Nourished Skin: Positive: Warm, Skin Color Reflects Adequate Perfusion, Dry, Other - Patient has a port that he is using temporarily. There is a new fistula in the right arm. Good thrill and bruit. Wound is clean. R hand is swollen Head/Face: Positive: Normal Head/Face Inspection Eyes: Positive: Normal ENT: Positive: Normal ENT inspection Neck: Positive: Supple, Nontender Respiratory/Lung Sounds: Positive: Clear to Auscultation, Breath Sounds Present Cardiovascular: Positive: RRR Abdomen Description: Positive: Nontender, Soft Bowel Sounds: Positive: Present Musculoskeletal: Positive: Normal Neurological: Positive: Normal Psychiatric: Positive: Affect/Mood Appropriate Diagnostics - Vital Signs Vital Signs Temp Pulse Resp BP Pulse Ox 12/31/16 15:22 97.8 F 84 18 100/80 94 - Laboratory Lab Statement: Any lab studies that have been ordered have been reviewed, and results considered in the medical decision making process. Complex Multi-Symp Course/Dx - Diagnoses Provider Diagnoses: ESRD (end stage renal disease) on dialysis Discharge - Discharge Plan Condition: Stable Disposition: HOME Referrals: Octaviano Pratt MD [Primary Care Provider] - Additional Instructions: Please follow up with your PCP. The documentation as recorded by the Nehal casey Erika accurately reflects the service I personally performed and the decisions made by , Zain Templeton MD.
== END 2016-12-31 19:52 | disposition home or self-care (01) ==
LOC: ED 15:20
DX: N18.6 End stage renal disease (principal); Z99.2 Dependence on renal dialysis
CPT/HCPCS: 99281

== ENCOUNTER 2017-01-08 | Emergency (ER) | payer MEDICARE, MEDICAID ==
[2017-01-08] MEDS ORDERED: Morphine INJ* 4 MG/ML 1 ML SYRINGE IV ONE (00:20)
[2017-01-08 00:54] LABS: Hematocrit 29 % (42-52); Mean Corpuscular HGB Conc 31 g/dl (31-36); Mean Corpuscular Hemoglobin 27 pg (27-31); Mean Corpuscular Volume 87 fL (80-94); Mean Platelet Volume 8 um3 (7.4-10.4); Red Blood Count 3.32 10^6/ul (4.0-5.4); Red Cell Distribution Width 18 % (10.5-15); White Blood Count 4.5 10^3/ul (3.5-10.8)
[2017-01-08 01:09] LABS: Albumin 3.9 g/dL (3.2-5.2); BUN/Creatinine Ratio 3.9 (8-20); Calcium 8.9 mg/dL (8.6-10.3); EGFR African American 12.5 (>60); EGFR Non-African American 9.7 (>60); Globulin 3.8 g/dL (2-4); Magnesium 2.3 mg/dL (1.9-2.7); Potassium 3.9 mmol/L (3.5-5.0); Total Bilirubin 0.4 mg/dL (0.2-1.0); Total Protein 7.7 g/dL (6.4-8.9)
--- NOTE | 2017-01-08 01:17 | ED ---
Robbin Briones Michael, scribed for Luis Fernando Jimenez MD on 01/08/17 at 0039 . HPI Chest Pain - HPI Summary HPI Summary: 66 y/o male comes to the ED presenting with constant chest wall pain that started this evening at 1930. The pt describes the chest pain as sharp. The pain is aggravated by a non-productive cough, and it was not alleviated by a breathing treatment. The pt also c/o sharp bilateral LE pain. He states his symptoms started suddenly today, and did not have any symptoms while at dialysis today. The PMHx is significant for CABG, HTN, and dialysis 3 times per week. - History of Current Complaint Chief Complaint: EDChestPainROMI Time Seen by Provider: 01/08/17 00:10 Hx Obtained From: Patient, EMS, Medical Records Onset/Duration: Started Hours Ago, Still Present Timing: Constant Initial Severity: Moderate Current Severity: Moderate Chest Pain Location: Diffuse Chest Pain Radiates: No Character: Sharp/Stabbing Aggravating Factor(s): Other: - cough Alleviating Factor(s): Nothing Associated Signs and Symptoms: Positive: Chest Pain, Cough, Other: - bilat LE pain - Additional Pertinent History Primary Care Physician: [id number] - Allergy/Home Medications Allergies/Adverse Reactions: Allergies Allergy/AdvReac Type Severity Reaction Status Date / Time Aspirin Allergy Unknown See Comment Verified 12/01/16 10:37 Hydromorphone [From Dilaudid] AdvReac Intermediate Nausea And Verified 12/01/16 10:37 Vomiting PMH/Surg Hx/FS Hx/Imm Hx Endocrine/Hematology History: Reports: Hx Blood Transfusions, Hx Sickle Cell Disease - Was told had sickle cell at one point but denies, Hx Anemia Denies: Hx Anticoagulant Therapy, Hx Bone Marrow Disease, Hx Diabetes, Hx Thyroid Disease Cardiovascular History: Reports: Hx Angina, Hx Congestive Heart Failure, Hx Coronary Artery Disease, Hx Hypertension, Hx Pacemaker/ICD, Hx Peripheral Vascular Disease, Hx Syncope, Other Cardiovascular Problems/Disorders - IDDM W/ DIALYSIS 3XPER WK Denies: Hx Cardiomegaly, Hx Hypercholesterolemia, Hx Myocardial Infarction, Hx Rheumatic Fever, Hx Valvular Heart Disease Respiratory History: Reports: Hx Asthma, Hx Chronic Obstructive Pulmonary Disease (COPD), Hx Pleural Effusion, Hx Pneumonia, Other Respiratory Problems/ Disorders - SOB Denies: Hx Pulmonary Edema, Hx Pulmonary Embolism, Hx Sleep Apnea GI History: Reports: Hx Cirrhosis, Hx Gastroesophageal Reflux Disease, Hx Ulcer , Other GI Disorders - peptic ulcer Denies: Hx Crohn's Disease, Hx Hiatal Hernia, Hx Irritable Bowel, Hx Jaundice History: Reports: Hx Acute Renal Failure, Hx Chronic Renal Failure, Hx Dialysis, Hx Renal Disease - ON DIALYSIS, Other Problems/Disorders - end stage renal disease, on dialysis Denies: Hx Kidney Infection, Hx Kidney Stones Musculoskeletal History: Reports: Hx Arthritis, Hx Back Problems - chronic pain , Hx Orthopedic Injury Denies: Hx Rheumatoid Arthritis, Hx Bursitis, Hx Tendonitis, Other Musculoskeletal History Sensory History: Reports: Hx Contacts or Glasses, Hx Glaucoma, Hx Vision Problem Denies: Hx Cataracts Opthamlomology History: Reports: Hx Contacts or Glasses, Hx Glaucoma, Hx Vision Problem Denies: Hx Cataracts Neurological History: Reports: Hx Headaches, Hx Migraine, Other Neuro Impairments/Disorders - depression Denies: Hx Dementia, Hx Seizures Psychiatric History: Reports: Hx Anxiety, Hx Depression Denies: Hx Eating Disorder, Hx Panic Disorder, Hx Suicide Attempt, Hx of Violent Episodes Against Others, Hx Substance Abuse - Cancer History Hx Chemotherapy: No Hx Radiation Therapy: No Hx Palliative Cancer Treatment: No - Surgical History Surgery Procedure, Year, and Place: HERNIA REPAIR 2012. APPENDECTOMY 2000. LEFT ARM AV FISTULA/CAD - REMOVED. CABG 1 vessel, mitral & tricuspid valve repair March 02, 2014 AT [facility] CONDITIONAL 5 UPTO 3T. POWER PORT. Mitral and tricuspid valve repair Hx Anesthesia Reactions: No - Immunization History Date of Tetanus Vaccine: 2014 Date of Influenza Vaccine: Fall 2015 Infectious Disease History: Reports: Hx Hepatitis, History Other Infectious Disease - Hepatitis C Denies: Hx Clostridium Difficile, Hx Human Immunodeficiency Virus (HIV), Hx of Known/Suspected MRSA, Hx Shingles, Hx Tuberculosis, Hx Known/Suspected VRE, Hx Known/Suspected VRSA - Family History Known Family History: Positive: Cardiac Disease, Hypertension, Other - CVA Family History: R & N/C - Social History Occupation: Disabled Lives: Alone Alcohol Use: None Alcohol Amount: former EtOH abuse Hx Substance Use: Yes Substance Use Type: Reports: Marijuana Substance Use Comment - Amount & Last Used: last used last night Hx Tobacco Use: Yes Smoking Status (MU): Former Smoker Type: Cigarettes Have You Smoked in the Last Year: No Review of Systems Positive: Chest Pain Positive: Cough Positive: Other - bilat LE pain All Other Systems Reviewed And Are Negative: Yes Physical Exam Triage Information Reviewed: Yes Vital Signs On Initial Exam: Initial Vitals BP 186/135 01/08/17 00:04 Vital Signs Reviewed: Yes Appearance: Positive: Well-Appearing, Well-Nourished, Pain Distress - mild discomfort, Thin Skin: Positive: Warm Head/Face: Positive: Normal Head/Face Inspection Eyes: Positive: KINGS ENT: Positive: Hearing grossly normal Neck: Positive: Supple Respiratory/Lung Sounds: Positive: Clear to Auscultation, Breath Sounds Present , Other - mild ant cwt to,palp Cardiovascular: Positive: RRR, Murmur Abdomen Description: Positive: Nontender, Soft Bowel Sounds: Positive: Present Musculoskeletal: Positive: Strength/ROM Intact Neurological: Positive: Alert, Oriented to Person Place, Time Psychiatric: Positive: Affect/Mood Appropriate Diagnostics - Vital Signs Vital Signs Temp Pulse Resp BP Pulse Ox 01/08/17 00:42 24 01/08/17 00:30 81 19 180/135 99 01/08/17 00:15 98.4 F 81 16 174/126 100 01/08/17 00:07 81 21 100 01/08/17 00:06 174/126 01/08/17 00:04 186/135 - Laboratory Lab Results: Lab Results 01/08/17 01/08/17 Range/Units 00:45 00:45 WBC 4.5 (3.5-10.8) 10^3/ul RBC 3.32 L (4.0-5.4) 10^6/ul Hgb 9.0 L (14.0-18.0) g/dl Hct 29 L (42-52) % MCV 87 (80-94) fL MCH 27 (27-31) pg MCHC 31 (31-36) g/dl RDW 18 H (10.5-15) % Plt Count 132 L (150-450) 10^3/ul MPV 8 (7.4-10.4) um3 Neut % (Auto) 68.4 (38-83) % Lymph % (Auto) 15.5 L (25-47) % Greenlee % (Auto) 14.1 H (1-9) % Eos % (Auto) 1.0 (0-6) % Baso % (Auto) 1.0 (0-2) % Absolute Neuts (auto) 3.1 (1.5-7.7) 10^3/ul Absolute Lymphs (auto) 0.7 L (1.0-4.8) 10^3/ul Absolute Monos (auto) 0.6 (0-0.8) 10^3/ul Absolute Eos (auto) 0 (0-0.6) 10^3/ul Absolute Basos (auto) 0 (0-0.2) 10^3/ul Absolute Nucleated RBC 0.01 10^3/ul Nucleated RBC % 0.2 Sodium 137 (133-145) mmol/L Potassium 3.9 (3.5-5.0) mmol/L Chloride 94 L (101-111) mmol/L Carbon Dioxide 35 H (22-32) mmol/L Anion Gap 8 (2-11) mmol/L BUN 23 (6-24) mg/dL Creatinine 5.88 H (0.67-1.17) mg/dL Est GFR ( Amer) 12.5 (>60) Est GFR (Non-Af Amer) 9.7 (>60) BUN/Creatinine Ratio 3.9 L (8-20) Glucose 93 (70-100) mg/dL Calcium 8.9 (8.6-10.3) mg/dL Magnesium 2.3 (1.9-2.7) mg/dL Total Bilirubin 0.40 (0.2-1.0) mg/dL AST 31 (13-39) U/L ALT 14 (7-52) U/L Alkaline Phosphatase 67 (34-104) U/L Total Protein 7.7 (6.4-8.9) g/dL Albumin 3.9 (3.2-5.2) g/dL Globulin 3.8 (2-4) g/dL Albumin/Globulin Ratio 1.0 (1-3) Result Diagrams: 01/08/17 00:45 01/08/17 00:45 Lab Statement: Any lab studies that have been ordered have been reviewed, and results considered in the medical decision making process. - Radiology CXR Xray Interpretation: No Acute Changes Radiology Interpretation Completed By: ED Physician - EKG EKG 0012 EKG Rhythm: Sinus Rhythm - 79 bpm EKG Interpretation: LVH Re-Evaluation - Re-Evaluation First Eval Change: Improved - results d/w pt Chest Pain Course/Dx - Diagnoses Provider Diagnoses: Chest pain, Whole body pain, ESRD (end stage renal disease) on dialysis Discharge - Discharge Plan Condition: Stable Disposition: HOME Patient Education Materials: Chest Pain (ED) Referrals: Octaviano Pratt MD [Primary Care Provider] - Additional Instructions: You should follow up with Dr. Pratt within the next 2-3 days. Please return to the ED if your symptoms worsen. The documentation as recorded by the Robbin casey Michael accurately reflects the service I personally performed and the decisions made by , Luis Fernando Jimenez MD.
[2017-01-08] MEDS ORDERED: cloNIDine TAB* 0.1 MG PO ONE (01:41)
[2017-01-08 03:30] VITALS: BP 191/131
--- NOTE | 2017-01-08 07:50 | RAD ---
HISTORY: Chest pain COMPARISONS: December 08, 2016 VIEWS: 2: Frontal dual-energy and lateral views of the chest. FINDINGS: CARDIOMEDIASTINAL SILHOUETTE: The cardiomediastinal silhouette is normal. ALICIA: The alicia are normal. PLEURA: There are small bilateral pleural effusions LUNG PARENCHYMA: There is confluent alveolar opacification of the right infrahilar lung ABDOMEN: The upper abdomen is clear. There is no subphrenic gas. BONES AND SOFT TISSUES: The patient is status post median sternotomy. OTHER: A left-sided pacemaker is noted. A central venous catheter is noted with the tip overlying the superior vena cava. IMPRESSION: SMALL BILATERAL PLEURAL EFFUSIONS WITH BIBASILAR CONSOLIDATION. RECOMMEND FOLLOW-UP UNTIL RESOLUTION TO EXCLUDE UNDERLYING PULMONARY PARENCHYMAL PATHOLOGY. IF THE CLINICAL PRESENTATION IS NOT CONSISTENT WITH INFECTION, CONSIDER FURTHER EVALUATION WITH CONTRAST-ENHANCED CT OF THE CHEST
== END 2017-01-08 03:28 | disposition home or self-care (01) ==
LOC: ED
DX: R07.89 Other chest pain (principal); N18.6 End stage renal disease; Z99.2 Dependence on renal dialysis; R05 Cough; Z87.891 Personal history of nicotine dependence
CPT/HCPCS: 36415; 71020; 80053; 83735; 85025; 93005; 96374; 99283; A9270-GY; J2270

== ENCOUNTER 2017-01-10 10:20 | Emergency (ER) | payer MEDICARE, MEDICAID ==
[2017-01-10] MEDS ORDERED: Ondansetron INJ* 2 MG/ML VIAL IV ONE (10:48)
[2017-01-10] MEDS: HYDROmorphone* 1 MG/ML 1 ML SYR IV ONE ×2 (11:20→11:22)
[2017-01-10 11:26] LABS: Hematocrit 31 % (42-52); Hemoglobin 9.7 g/dl (14.0-18.0); Mean Corpuscular HGB Conc 32 g/dl (31-36); Mean Corpuscular Hemoglobin 28 pg (27-31); Mean Corpuscular Volume 87 fL (80-94); Mean Platelet Volume 8 um3 (7.4-10.4); Red Blood Count 3.52 10^6/ul (4.0-5.4); Red Cell Distribution Width 19 % (10.5-15); White Blood Count 4.4 10^3/ul (3.5-10.8)
[2017-01-10] MEDS ORDERED: Morphine INJ* 4 MG/ML 1 ML SYRINGE IV ONE ×3 (11:37→16:40)
[2017-01-10 11:41] LABS: Albumin 4.3 g/dL (3.2-5.2); BUN/Creatinine Ratio 3.7 (8-20); EGFR African American 15.6 (>60); EGFR Non-African American 12.1 (>60); Globulin 4.2 g/dL (2-4); Potassium 3.8 mmol/L (3.5-5.0); Total Bilirubin 0.6 mg/dL (0.2-1.0); Total Protein 8.5 g/dL (6.4-8.9)
[2017-01-10] MEDS: LORazepam INJ* 2 MG/ML 1 ML VIAL IV PUSH ONE ×2 (11:49→12:32)
[2017-01-10 11:50] LABS: Troponin I 0.04 ng/mL (<0.04)
--- NOTE | 2017-01-10 12:38 | RAD ---
INDICATION: Chest pain COMPARISON: Most recent comparison chest x-rays dated January 08, 2017 TECHNIQUE: Single AP portable view of the chest was obtained. FINDINGS: Image quality is compromised due to the relative inferiority of a portable chest x-ray. Stable postoperative findings include a left upper chest single lead cardiac pacemaker, a right internal jugular vein hemodialysis catheter and sternotomy wires. There is persistent cardiomegaly. There has been increased density obscuring the bilateral lung bases and causing costophrenic angle blunting, worse on the left than the right. The pulmonary vasculature is engorged and indistinct. Density obscuring the mid-level right lung is similar to the previous chest x-ray. IMPRESSION: The constellation of findings is most consistent with cardiogenic pulmonary edema with bibasilar pleural effusions, potentially with pneumonia at the right mid level or lower lung.
--- NOTE | 2017-01-10 14:11 | RAD ---
INDICATION: Headache and the presence of high blood pressure COMPARISON: Multiple prior brain CTs, most recently dated December 08, 2016 TECHNIQUE: Contiguous axial sections of the brain were obtained from the skull base to the vertex without contrast. FINDINGS: The ventricles, cisterns and sulci are within normal limits. The kline-white matter differentiation is adequately maintained and there is no sulcal effacement. No significant focal abnormality or mass effect is present. There is no evidence for intracranial hemorrhage. Again seen is coarse atherosclerotic calcification at the bilateral petrous carotid arteries and left greater than right vertebral arteries. No significant focal osseous abnormality is present. The visualized portion of the paranasal sinuses and mastoid air cells appear clear. IMPRESSION: No acute intracranial abnormality.
--- NOTE | 2017-01-10 16:20 | RAD ---
CLINICAL HISTORY: Bilateral lower quadrant pain. Relevant surgical history includes appendectomy and hernia repair. COMPARISON: Similar CT examination dated 814 6 TECHNIQUE: Noncontrast CT examination of the abdomen and pelvis from the lung bases through the initial tuberosities. FINDINGS: VISUALIZED LUNG BASES: Similar to the previous CT examination there is cardiomegaly, coarse calcification of the coronary arteries and partially visualized cardiac pacer wires. There is a small right pleural effusion increased in size in the previous CT examination. There are bibasilar hypoventilatory changes and pleural-based linear densities most compatible with atelectasis. ABDOMEN AND PELVIS: Evaluation of the solid organs and vasculature is limited without intravenous contrast. The liver, spleen, pancreas and adrenal glands are grossly normal in appearance. The gallbladder is normal. The kidneys are atrophic bilaterally. The small and large bowel are not distended. There is no free peritoneal air. There is no gross retroperitoneal or mesenteric lymphadenopathy. The pelvic viscera is normal in appearance. The coarsely calcified abdominal aorta and iliac arteries are normal in course and diameter. Degenerative changes include multilevel loss of intervertebral disc height involving the lower thoracic and lumbar spine.There are no sinister bone lesions. IMPRESSION: Extensive chronic, degenerative and iatrogenic findings described in the body the report without acute abnormality identified that would account for lower abdominal pain.
[2017-01-10 16:58] VITALS: BP 171/130
--- NOTE | 2017-01-10 17:20 | ED ---
Robbin Briones Michael, scribed for Annie Boyd MD on 01/10/17 at 1059 . HPI Chest Pain - HPI Summary HPI Summary: 66 y/o male comes to the ED presenting with constant, diffuse CP that started this morning. The pt reports that the CP started after he finished with dialysis today. He also c/o groin pain, abd pain, blurred vision, and SELBY that started this morning at 0400 when the pt had a mechanical fall. The pt states that the groin pain is abnormal from his baseline. He also notes head trauma from hitting his head on a table when he fell. The head pain is on his right temporal lobe. The pt's bp was elevated to 218/124 today, but it was taken on his left ankle instead of his arm. The PMHx is significant for CABG. - History of Current Complaint Chief Complaint: EDChestPainROMI Time Seen by Provider: 01/10/17 10:35 Hx Obtained From: Patient, Medical Records Onset/Duration: Started Hours Ago, Still Present Timing: Constant Initial Severity: Moderate Current Severity: Moderate Pain Intensity: 10 Pain Scale Used: 0-10 Numeric Chest Pain Location: Diffuse Chest Pain Radiates: No Aggravating Factor(s): Nothing Alleviating Factor(s): Nothing Associated Signs and Symptoms: Positive: Chest Pain, Headaches, Other: - blurred vision. abd pain. groin pain. - Additional Pertinent History Primary Care Physician: [id number] - Allergy/Home Medications Allergies/Adverse Reactions: Allergies Allergy/AdvReac Type Severity Reaction Status Date / Time Aspirin Allergy Unknown See Comment Verified 01/10/17 10:26 Hydromorphone [From Dilaudid] AdvReac Intermediate Nausea And Verified 01/10/17 10:26 Vomiting PMH/Surg Hx/FS Hx/Imm Hx Endocrine/Hematology History: Reports: Hx Blood Transfusions, Hx Sickle Cell Disease - Was told had sickle cell at one point but denies, Hx Anemia Denies: Hx Anticoagulant Therapy, Hx Bone Marrow Disease, Hx Diabetes, Hx Thyroid Disease Cardiovascular History: Reports: Hx Angina, Hx Congestive Heart Failure, Hx Coronary Artery Disease, Hx Hypertension, Hx Pacemaker/ICD, Hx Peripheral Vascular Disease, Hx Syncope, Other Cardiovascular Problems/Disorders - IDDM W/ DIALYSIS 3XPER WK Denies: Hx Cardiomegaly, Hx Hypercholesterolemia, Hx Myocardial Infarction, Hx Rheumatic Fever, Hx Valvular Heart Disease Respiratory History: Reports: Hx Asthma, Hx Chronic Obstructive Pulmonary Disease (COPD), Hx Pleural Effusion, Hx Pneumonia, Other Respiratory Problems/ Disorders - SOB Denies: Hx Pulmonary Edema, Hx Pulmonary Embolism, Hx Sleep Apnea GI History: Reports: Hx Cirrhosis, Hx Gastroesophageal Reflux Disease, Hx Ulcer , Other GI Disorders - peptic ulcer Denies: Hx Crohn's Disease, Hx Hiatal Hernia, Hx Irritable Bowel, Hx Jaundice History: Reports: Hx Acute Renal Failure, Hx Chronic Renal Failure, Hx Dialysis, Hx Renal Disease - ON DIALYSIS, Other Problems/Disorders - end stage renal disease, on dialysis Denies: Hx Kidney Infection, Hx Kidney Stones Musculoskeletal History: Reports: Hx Arthritis, Hx Back Problems - chronic pain , Hx Orthopedic Injury Denies: Hx Rheumatoid Arthritis, Hx Bursitis, Hx Tendonitis, Other Musculoskeletal History Sensory History: Reports: Hx Contacts or Glasses, Hx Glaucoma, Hx Vision Problem Denies: Hx Cataracts Opthamlomology History: Reports: Hx Contacts or Glasses, Hx Glaucoma, Hx Vision Problem Denies: Hx Cataracts Neurological History: Reports: Hx Headaches, Hx Migraine, Other Neuro Impairments/Disorders - depression Denies: Hx Dementia, Hx Seizures Psychiatric History: Reports: Hx Anxiety, Hx Depression Denies: Hx Eating Disorder, Hx Panic Disorder, Hx Suicide Attempt, Hx of Violent Episodes Against Others, Hx Substance Abuse - Cancer History Hx Chemotherapy: No Hx Radiation Therapy: No Hx Palliative Cancer Treatment: No - Surgical History Surgery Procedure, Year, and Place: HERNIA REPAIR 2012. APPENDECTOMY 2000. LEFT ARM AV FISTULA/CAD - REMOVED. CABG 1 vessel, mitral & tricuspid valve repair March 02, 2014 AT [facility] CONDITIONAL 5 UPTO 3T. POWER PORT. Mitral and tricuspid valve repair Hx Anesthesia Reactions: No - Immunization History Date of Tetanus Vaccine: 2014 Date of Influenza Vaccine: Fall 2015 Infectious Disease History: Yes Infectious Disease History: Reports: Hx Hepatitis, History Other Infectious Disease - Hepatitis C Denies: Hx Clostridium Difficile, Hx Human Immunodeficiency Virus (HIV), Hx of Known/Suspected MRSA, Hx Shingles, Hx Tuberculosis, Hx Known/Suspected VRE, Hx Known/Suspected VRSA, Traveled Outside the [place] in Last 30 Days - Family History Known Family History: Positive: None, Cardiac Disease, Hypertension, Other - CVA Family History: R & N/C - Social History Occupation: Disabled Lives: Alone Alcohol Use: None Alcohol Amount: former EtOH abuse Hx Substance Use: Yes Substance Use Type: Reports: Marijuana Substance Use Comment - Amount & Last Used: last used last night Hx Tobacco Use: Yes Smoking Status (MU): Former Smoker Type: Cigarettes Have You Smoked in the Last Year: No Review of Systems Positive: Blurred Vision Positive: Chest Pain Positive: Abdominal Pain Positive: Other - groin pain Positive: Headache All Other Systems Reviewed And Are Negative: Yes Physical Exam Vital Signs On Initial Exam: Initial Vitals Temp Pulse Resp BP Pulse Ox 98 F 83 20 218/124 100 01/10/17 10:26 01/10/17 10:26 01/10/17 10:26 01/10/17 10:26 01/10/17 10:26 Appearance: Positive: Well-Appearing, Pain Distress Skin: Positive: Warm, Skin Color Reflects Adequate Perfusion, Dry Eyes: Positive: EOMI, KINGS ENT: Positive: Pharynx normal, TMs normal Neck: Positive: Supple, Nontender Respiratory/Lung Sounds: Positive: Clear to Auscultation, Breath Sounds Present. Negative: Rales, Rhonchi, Wheezes Cardiovascular: Positive: RRR, Other - no gallops. Negative: Murmur, Rub Abdomen Description: Positive: Soft, Other: - no rebound. Negative: Nontender - diffusely tender, Guarding Bowel Sounds: Positive: Present Musculoskeletal: Positive: Strength/ROM Intact. Negative: Edema Left, Edema Right Neurological: Positive: Sensory/Motor Intact, Alert, Oriented to Person Place, Time, CN Intact II-III Psychiatric: Positive: Affect/Mood Appropriate Diagnostics - Vital Signs Vital Signs Temp Pulse Resp BP Pulse Ox 01/10/17 10:26 98 F 83 20 218/124 100 - Laboratory Lab Results: Lab Results 01/10/17 01/10/17 01/10/17 Range/Units 11:16 11:16 11:16 WBC 4.4 (3.5-10.8) 10^3/ul RBC 3.52 L (4.0-5.4) 10^6/ul Hgb 9.7 L (14.0-18.0) g/dl Hct 31 L (42-52) % MCV 87 (80-94) fL MCH 28 (27-31) pg MCHC 32 (31-36) g/dl RDW 19 H (10.5-15) % Plt Count 132 L (150-450) 10^3/ul MPV 8 (7.4-10.4) um3 Neut % (Auto) 68.0 (38-83) % Lymph % (Auto) 14.7 L (25-47) % [place] % (Auto) 14.1 H (1-9) % Eos % (Auto) 2.0 (0-6) % Baso % (Auto) 1.2 (0-2) % Absolute Neuts (auto) 3.0 (1.5-7.7) 10^3/ul Absolute Lymphs (auto) 0.6 L (1.0-4.8) 10^3/ul Absolute Monos (auto) 0.6 (0-0.8) 10^3/ul Absolute Eos (auto) 0.1 (0-0.6) 10^3/ul Absolute Basos (auto) 0.1 (0-0.2) 10^3/ul Absolute Nucleated RBC 0.01 10^3/ul Nucleated RBC % 0.2 Sodium 136 (133-145) mmol/L Potassium 3.8 (3.5-5.0) mmol/L Chloride 92 L (101-111) mmol/L Carbon Dioxide 35 H (22-32) mmol/L Anion Gap 9 (2-11) mmol/L BUN 18 (6-24) mg/dL Creatinine 4.87 H (0.67-1.17) mg/dL Est GFR ( Amer) 15.6 (>60) Est GFR (Non-Af Amer) 12.1 (>60) BUN/Creatinine Ratio 3.7 L (8-20) Glucose 74 (70-100) mg/dL Lactic Acid 0.6 (0.5-2.0) mmol/L Calcium 9.0 (8.6-10.3) mg/dL Total Bilirubin 0.60 (0.2-1.0) mg/dL AST 37 (13-39) U/L ALT 18 (7-52) U/L Alkaline Phosphatase 70 (34-104) U/L Troponin I 0.04 H* (<0.04) ng/mL Total Protein 8.5 (6.4-8.9) g/dL Albumin 4.3 (3.2-5.2) g/dL Globulin 4.2 H (2-4) g/dL Albumin/Globulin Ratio 1.0 (1-3) Lipase 25 (11.0-82.0) U/L 01/10/17 Range/Units 14:20 WBC (3.5-10.8) 10^3/ul RBC (4.0-5.4) 10^6/ul Hgb (14.0-18.0) g/dl Hct (42-52) % MCV (80-94) fL MCH (27-31) pg MCHC (31-36) g/dl RDW (10.5-15) % Plt Count (150-450) 10^3/ul MPV (7.4-10.4) um3 Neut % (Auto) (38-83) % Lymph % (Auto) (25-47) % [place] % (Auto) (1-9) % Eos % (Auto) (0-6) % Baso % (Auto) (0-2) % Absolute Neuts (auto) (1.5-7.7) 10^3/ul Absolute Lymphs (auto) (1.0-4.8) 10^3/ul Absolute Monos (auto) (0-0.8) 10^3/ul Absolute Eos (auto) (0-0.6) 10^3/ul Absolute Basos (auto) (0-0.2) 10^3/ul Absolute Nucleated RBC 10^3/ul Nucleated RBC % Sodium (133-145) mmol/L Potassium (3.5-5.0) mmol/L Chloride (101-111) mmol/L Carbon Dioxide (22-32) mmol/L Anion Gap (2-11) mmol/L BUN (6-24) mg/dL Creatinine (0.67-1.17) mg/dL Est GFR ( Amer) (>60) Est GFR (Non-Af Amer) (>60) BUN/Creatinine Ratio (8-20) Glucose (70-100) mg/dL Lactic Acid (0.5-2.0) mmol/L Calcium (8.6-10.3) mg/dL Total Bilirubin (0.2-1.0) mg/dL AST (13-39) U/L ALT (7-52) U/L Alkaline Phosphatase (34-104) U/L Troponin I 0.04 H* (<0.04) ng/mL Total Protein (6.4-8.9) g/dL Albumin (3.2-5.2) g/dL Globulin (2-4) g/dL Albumin/Globulin Ratio (1-3) Lipase (11.0-82.0) U/L Result Diagrams: 01/10/17 11:16 01/10/17 11:16 Lab Statement: Any lab studies that have been ordered have been reviewed, and results considered in the medical decision making process. - Radiology CXR Xray Interpretation: Positive (See Comments) - The constellation of findings is most consistent with cardiogenic pulmonary edema with bibasilar pleural effusions, potentially with pneumonia at the right mid level or lower lung. Radiology Interpretation Completed By: Radiologist - CT Brain CT CT Interpretation: No Acute Changes CT Interpretation Completed By: Radiologist CT ABD/PEL CT Interpretation: No Acute Changes - Extensive chronic, degenerative and iatrogenic findings described in the body the report without acute abnormality identified that would account for lower abdominal pain. CT Interpretation Completed By: Radiologist - EKG EK EKG Rhythm: Sinus Rhythm - [address] Segment: Non-Specific EKG Interpretation: LVH EKG Comparison: No Significant Change - compared to EKG on 01/08/17 Chest Pain Course/Dx - Course Course Of Treatment: 66 yo esrd with elevated bp due to pain in chest and abdomen, serial trops unchanged and ct abd non acute bp came down with pain meds. Case discussed with Dr. Dalal who agreed with management of his bp with pain meds which did make the pressure come down to his norm - Diagnoses Provider Diagnoses: Hypertension, Chest pain Discharge - Discharge Plan Condition: Stable Disposition: HOME Patient Education Materials: Hypertension (ED), Chest Pain (ED) Referrals: Octaviano Pratt MD [Primary Care Provider] - Additional Instructions: Please follow up with Dr. Pratt within the next 2-3 days. Please return to the ED if your symptoms worsen. The documentation as recorded by the Robbin casey Michael accurately reflects the service I personally performed and the decisions made by me, Annie Boyd MD.
== END 2017-01-10 16:56 | disposition home or self-care (01) ==
LOC: ED 10:20
DX: I10 Essential (primary) hypertension (principal); R07.9 Chest pain, unspecified; R51 Headache; H53.8 Other visual disturbances; R10.9 Unspecified abdominal pain; Z87.891 Personal history of nicotine dependence
CPT/HCPCS: 36415; 70450; 71010; 74176; 80053; 83605; 83690; 84484; 85025; 93005; 96374; 96375; 99282; J1170; J2060; J2270; J2405

== ENCOUNTER 2017-01-12 05:37 | Emergency (ER) | payer MEDICARE, MEDICAID ==
--- NOTE | 2017-01-12 06:26 | ED ---
Devon Briones Billy, scribed for Luis Fernando Jimenez MD on 01/12/17 at 0612 . Complex/Multi-Sys Presentation - HPI Summary HPI Summary: Patient is a 66 y/o male coming to [facility] presenting with chest pain, nausea, vomiting, and epistaxis this morning. Nothing made his symptoms better/worse today. He states that he is due for his dialysis today. - History Of Current Complaint Chief Complaint: EDNauseaVomitDiarrh Time Seen by Provider: 01/12/17 06:09 Hx Obtained From: Patient Onset/Duration: Gradual Onset, Still Present Timing: Constant, Hours Severity Currently: Moderate Severity Initially: Moderate Aggravating Factor(s): none Alleviating Factor(s): none Associated Signs And Symptoms: Positive: Chest Pain, Nausea, Vomiting, Other - epistaxis - Allergies/Home Medications Allergies/Adverse Reactions: Allergies Allergy/AdvReac Type Severity Reaction Status Date / Time Aspirin Allergy Unknown See Comment Verified 01/10/17 10:26 Hydromorphone [From Dilaudid] AdvReac Intermediate Nausea And Verified 01/10/17 10:26 Vomiting PMH/Surg Hx/FS Hx/Imm Hx Endocrine/Hematology History: Reports: Hx Blood Transfusions, Hx Sickle Cell Disease - Was told had sickle cell at one point but denies, Hx Anemia Denies: Hx Anticoagulant Therapy, Hx Bone Marrow Disease, Hx Diabetes, Hx Thyroid Disease Cardiovascular History: Reports: Hx Angina, Hx Congestive Heart Failure, Hx Coronary Artery Disease, Hx Hypertension, Hx Pacemaker/ICD, Hx Peripheral Vascular Disease, Hx Syncope, Other Cardiovascular Problems/Disorders - IDDM W/ DIALYSIS 3XPER WK Denies: Hx Cardiomegaly, Hx Hypercholesterolemia, Hx Myocardial Infarction, Hx Rheumatic Fever, Hx Valvular Heart Disease Respiratory History: Reports: Hx Asthma, Hx Chronic Obstructive Pulmonary Disease (COPD), Hx Pleural Effusion, Hx Pneumonia, Other Respiratory Problems/ Disorders - SOB Denies: Hx Pulmonary Edema, Hx Pulmonary Embolism, Hx Sleep Apnea GI History: Reports: Hx Cirrhosis, Hx Gastroesophageal Reflux Disease, Hx Ulcer , Other GI Disorders - peptic ulcer Denies: Hx Crohn's Disease, Hx Hiatal Hernia, Hx Irritable Bowel, Hx Jaundice History: Reports: Hx Acute Renal Failure, Hx Chronic Renal Failure, Hx Dialysis, Hx Renal Disease - ON DIALYSIS, Other Problems/Disorders - end stage renal disease, on dialysis Denies: Hx Kidney Infection, Hx Kidney Stones Musculoskeletal History: Reports: Hx Arthritis, Hx Back Problems - chronic pain , Hx Orthopedic Injury Denies: Hx Rheumatoid Arthritis, Hx Bursitis, Hx Tendonitis, Other Musculoskeletal History Sensory History: Reports: Hx Contacts or Glasses, Hx Glaucoma, Hx Vision Problem Denies: Hx Cataracts Opthamlomology History: Reports: Hx Contacts or Glasses, Hx Glaucoma, Hx Vision Problem Denies: Hx Cataracts Neurological History: Reports: Hx Headaches, Hx Migraine, Other Neuro Impairments/Disorders - depression Denies: Hx Dementia, Hx Seizures Psychiatric History: Reports: Hx Anxiety, Hx Depression Denies: Hx Eating Disorder, Hx Panic Disorder, Hx Suicide Attempt, Hx of Violent Episodes Against Others, Hx Substance Abuse - Cancer History Hx Chemotherapy: No Hx Radiation Therapy: No Hx Palliative Cancer Treatment: No - Surgical History Surgery Procedure, Year, and Place: HERNIA REPAIR 2012. APPENDECTOMY 2000. LEFT ARM AV FISTULA/CAD - REMOVED. CABG 1 vessel, mitral & tricuspid valve repair March 02, 2014 AT [facility] CONDITIONAL 5 UPTO 3T. POWER PORT. Mitral and tricuspid valve repair Hx Anesthesia Reactions: No - Immunization History Date of Tetanus Vaccine: 2014 Date of Influenza Vaccine: Fall 2015 Infectious Disease History: No Infectious Disease History: Reports: Hx Hepatitis, History Other Infectious Disease - Hepatitis C Denies: Hx Clostridium Difficile, Hx Human Immunodeficiency Virus (HIV), Hx of Known/Suspected MRSA, Hx Shingles, Hx Tuberculosis, Hx Known/Suspected VRE, Hx Known/Suspected VRSA, Traveled Outside the in Last 30 Days - Family History Known Family History: Positive: None, Cardiac Disease, Hypertension, Other - CVA Family History: R & N/C - Social History Alcohol Use: None Alcohol Amount: former EtOH abuse Hx Substance Use: Yes Substance Use Type: Reports: Marijuana Substance Use Comment - Amount & Last Used: last used last night Hx Tobacco Use: Yes Smoking Status (MU): Former Smoker Type: Cigarettes Have You Smoked in the Last Year: No Review of Systems Positive: Epistaxis Positive: Chest Pain Positive: Vomiting, Nausea All Other Systems Reviewed And Are Negative: Yes Physical Exam Triage Information Reviewed: Yes Vital Signs On Initial Exam: Initial Vitals Temp Pulse Resp BP Pulse Ox 98.8 F 87 26 207/144 89 01/12/17 05:46 01/12/17 05:46 01/12/17 05:46 01/12/17 05:46 01/12/17 05:46 Vital Signs Reviewed: Yes Appearance: Positive: Well-Appearing, Pain Distress - mild discomfort Skin: Positive: Warm Head/Face: Positive: Normal Head/Face Inspection Eyes: Positive: KINGS ENT: Positive: Hearing grossly normal Neck: Positive: Supple Respiratory/Lung Sounds: Positive: Breath Sounds Present Cardiovascular: Positive: RRR Abdomen Description: Positive: Nontender, Soft Neurological: Positive: Sensory/Motor Intact Psychiatric: Positive: Affect/Mood Appropriate Diagnostics - Vital Signs Vital Signs Temp Pulse Resp BP Pulse Ox 01/12/17 05:46 98.8 F 87 26 207/144 89 - Laboratory Lab Statement: Any lab studies that have been ordered have been reviewed, and results considered in the medical decision making process. - EKG 0615 EKG Interpretation: NSR 87 bpm, LVH Re-Evaluation - Re-Evaluation First Eval Re-Evaluation Time: 06:15 - pt schedukled for dialysis this morning, ekg not acute, will send to dialysis Complex Multi-Symp Course/Dx - Diagnoses Provider Diagnoses: ESRD (end stage renal disease) on dialysis, Chest pain Discharge - Discharge Plan Condition: Stable Disposition: HOME Patient Education Materials: Hemodialysis (GEN) Referrals: Octaviano Pratt MD [Primary Care Provider] - The documentation as recorded by the Devon casey Billy accurately reflects the service I personally performed and the decisions made by me, Luis Fernando Jimenez MD.
[2017-01-12 06:39] VITALS: BP 184/134
== END 2017-01-12 06:36 | disposition home or self-care (01) ==
LOC: ED 05:37
DX: N18.6 End stage renal disease (principal); Z99.2 Dependence on renal dialysis; R07.9 Chest pain, unspecified; R11.2 Nausea with vomiting, unspecified
CPT/HCPCS: 93005; 99282

== ENCOUNTER 2017-01-12 10:57 | Inpatient (IN) | payer MEDICARE, MEDICAID ==
[2017-01-12] MEDS ORDERED: Morphine INJ* 4 MG/ML 1 ML SYRINGE IV ONE (12:50)
[2017-01-12] MEDS ORDERED: Ondansetron INJ* 2 MG/ML VIAL IV ONE (12:50)
[2017-01-12] MEDS ORDERED: NS 0.9% 1000 ML* 1,000 ML IV ONE (12:51)
[2017-01-12 13:15] LABS: Hematocrit 34 % (42-52); Hemoglobin 10.5 g/dl (14.0-18.0); Mean Corpuscular HGB Conc 31 g/dl (31-36); Mean Corpuscular Hemoglobin 27 pg (27-31); Mean Corpuscular Volume 87 fL (80-94); Mean Platelet Volume 9 um3 (7.4-10.4); Red Blood Count 3.86 10^6/ul (4.0-5.4); Red Cell Distribution Width 19 % (10.5-15); White Blood Count 4.1 10^3/ul (3.5-10.8)
[2017-01-12 13:36] LABS: Albumin 4.1 g/dL (3.2-5.2); BUN/Creatinine Ratio 3.8 (8-20); Calcium 9.1 mg/dL (8.6-10.3); EGFR African American 14.9 (>60); EGFR Non-African American 11.6 (>60); Globulin 3.8 g/dL (2-4); Total Bilirubin 0.6 mg/dL (0.2-1.0); Total Protein 7.9 g/dL (6.4-8.9)
[2017-01-12] MEDS ORDERED: Acetaminophen TAB* 325 MG PO PRN (14:13)
[2017-01-12] MEDS ORDERED: Nitroglycerin TAB 0.4 MG* 0.4 MG TAB SL PRN (14:13)
[2017-01-12] MEDS ORDERED: Albuterol HFA INHALER* 8 gm MDI INH PRN (14:13)
[2017-01-12] MEDS ORDERED: diPHENhydraMINE PO* 50 MG PO PRN (14:13)
[2017-01-12] MEDS ORDERED: diPHENhydraMINE PO* 25 MG PO PRN (14:13)
[2017-01-12] MEDS ORDERED: Zolpidem TAB* 10 MG PO PRN (14:13)
[2017-01-12] MEDS ORDERED: Labetalol IV* 5 MG/ML 20 ML VIAL IV PUSH ONE (14:15)
[2017-01-12] MEDS ORDERED: Levofloxacin 750 MG IVPREMIX(* 750 MG/150 ML BAG IVPB ONE (14:19)
[2017-01-12] MEDS ORDERED: PROCHLORPERAZINE INJ 5 MG/ML 2 ML VIAL IV PRN ×2 (14:20→19:53)
[2017-01-12 14:21] LABS: Troponin I 0.05 ng/mL (<0.04)
--- NOTE | 2017-01-12 14:21 | RAD ---
INDICATION: Vomiting COMPARISON: KUB February 20, 2016 TECHNIQUE: Erect and supine views of the abdomen are submitted. FINDINGS: Bones: There are no acute bony findings. Soft tissues: There are no acute soft tissue changes. There is valvular surgery with sternotomy and a cardiac pacemaker/to November. There are clips in left upper quadrant. Bowel gas pattern: Moderate retained stool. No obstruction or free intraperitoneal air Calcifications: There are no abnormal calcifications. Other: There are bibasilar lung abnormalities. Refer to concurrent chest x-ray IMPRESSION: MODERATE RETAINED STOOL. NO OBSTRUCTION OR FREE INTRAPERITONEAL AIR
--- NOTE | 2017-01-12 14:22 | RAD ---
Indication: Chest pain, vomiting, abdominal pain. History of peptic ulcer disease. On dialysis. Comparison: January 10, 2017 CT abdomen and January 10, 2017 chest radiograph. Technique: Sitting AP chest 1349 hours Report: Airspace consolidation at the RIGHT mid to lower lung zone is grossly new compared with the prior exam. Unchanged linear consolidation at the LEFT lung base. Small bilateral pleural effusions without change. Median sternotomy wires, cardiomegaly, prosthetic heart valves, RIGHT ventricular pacemaker leads, mediastinal vascular clips. Distal tip of tunneled dual-lumen RIGHT-sided central venous catheter is at the level of the superior vena cava RIGHT atrial junction. Mildly prominent and ill-defined central pulmonary vasculature. Negative for free air beneath the diaphragm. IMPRESSION: 1. New airspace consolidation at the RIGHT mid to lower lung zone is suspicious for potential pneumonia. Correlate with clinical assessment. 2. Mild pulmonary vascular congestion. 3. Unchanged small bilateral pleural effusions.
[2017-01-12] MEDS ORDERED: hydrALAZINE IV* 20 MG/ML VIAL IV SLOW PU ONE ×2 (14:24→23:00)
--- NOTE | 2017-01-12 14:51 | ED ---
Nawaf Briones Adam, scribed for Annie Boyd MD on 01/12/17 at 1251 . Complex/Multi-Sys Presentation - HPI Summary HPI Summary: Pt is a 66 year old male presenting with vomiting and multiple other complaints. He states that he came in for dialysis today but then began vomiting which is very unusual for him. He also c/o abdominal pain, CP, SOB, cough, and epistaxis. PMHx includes ESRD, CABG, and DM. - History Of Current Complaint Chief Complaint: EDChestPainROMI Time Seen by Provider: 01/12/17 12:12 Hx Obtained From: Patient Onset/Duration: Gradual Onset, Lasting Hours, Still Present Timing: Constant Severity Currently: Moderate Severity Initially: Moderate Aggravating Factor(s): Unknown Alleviating Factor(s): Nothing Associated Signs And Symptoms: Positive: SOB, Cough, Chest Pain, Vomiting, Abdominal Pain, Other - Epistaxis - Allergies/Home Medications Allergies/Adverse Reactions: Allergies Allergy/AdvReac Type Severity Reaction Status Date / Time Aspirin Allergy Unknown See Comment Verified 01/10/17 10:26 Hydromorphone [From Dilaudid] AdvReac Intermediate Nausea And Verified 01/10/17 10:26 Vomiting Home Medications: Home Medications Zolpidem TAB* [Ambien TAB*] 10 mg PO BEDTIME PRN 01/12/17 [History Confirmed ] traZODone TAB* [Desyrel TAB*] 100 mg PO BEDTIME 01/12/17 [History Confirmed ] PMH/Surg Hx/FS Hx/Imm Hx Endocrine/Hematology History: Reports: Hx Blood Transfusions, Hx Sickle Cell Disease - Was told had sickle cell at one point but denies, Hx Anemia Denies: Hx Anticoagulant Therapy, Hx Bone Marrow Disease, Hx Diabetes, Hx Thyroid Disease Cardiovascular History: Reports: Hx Angina, Hx Congestive Heart Failure, Hx Coronary Artery Disease, Hx Hypertension, Hx Pacemaker/ICD, Hx Peripheral Vascular Disease, Hx Syncope, Other Cardiovascular Problems/Disorders - IDDM W/ DIALYSIS 3XPER WK Denies: Hx Cardiomegaly, Hx Hypercholesterolemia, Hx Myocardial Infarction, Hx Rheumatic Fever, Hx Valvular Heart Disease Respiratory History: Reports: Hx Asthma, Hx Chronic Obstructive Pulmonary Disease (COPD), Hx Pleural Effusion, Hx Pneumonia, Other Respiratory Problems/ Disorders - SOB Denies: Hx Pulmonary Edema, Hx Pulmonary Embolism, Hx Sleep Apnea GI History: Reports: Hx Cirrhosis, Hx Gastroesophageal Reflux Disease, Hx Ulcer , Other GI Disorders - peptic ulcer Denies: Hx Crohn's Disease, Hx Hiatal Hernia, Hx Irritable Bowel, Hx Jaundice History: Reports: Hx Acute Renal Failure, Hx Chronic Renal Failure, Hx Dialysis, Hx Renal Disease - ON DIALYSIS, Other Problems/Disorders - end stage renal disease, on dialysis Denies: Hx Kidney Infection, Hx Kidney Stones Musculoskeletal History: Reports: Hx Arthritis, Hx Back Problems - chronic pain , Hx Orthopedic Injury Denies: Hx Rheumatoid Arthritis, Hx Bursitis, Hx Tendonitis, Other Musculoskeletal History Sensory History: Reports: Hx Contacts or Glasses, Hx Glaucoma, Hx Vision Problem Denies: Hx Cataracts Opthamlomology History: Reports: Hx Contacts or Glasses, Hx Glaucoma, Hx Vision Problem Denies: Hx Cataracts Neurological History: Reports: Hx Headaches, Hx Migraine, Other Neuro Impairments/Disorders - depression Denies: Hx Dementia, Hx Seizures Psychiatric History: Reports: Hx Anxiety, Hx Depression Denies: Hx Eating Disorder, Hx Panic Disorder, Hx Suicide Attempt, Hx of Violent Episodes Against Others, Hx Substance Abuse - Cancer History Hx Chemotherapy: No Hx Radiation Therapy: No Hx Palliative Cancer Treatment: No - Surgical History Surgery Procedure, Year, and Place: HERNIA REPAIR 2012. APPENDECTOMY 2000. LEFT ARM AV FISTULA/CAD - REMOVED. CABG 1 vessel, mitral & tricuspid valve repair March 02, 2014 AT [facility] CONDITIONAL 5 UPTO 3T. POWER PORT. Mitral and tricuspid valve repair Hx Anesthesia Reactions: No - Immunization History Date of Tetanus Vaccine: 2014 Date of Influenza Vaccine: Fall 2015 Infectious Disease History: Yes Infectious Disease History: Reports: Hx Hepatitis, History Other Infectious Disease - Hepatitis C Denies: Hx Clostridium Difficile, Hx Human Immunodeficiency Virus (HIV), Hx of Known/Suspected MRSA, Hx Shingles, Hx Tuberculosis, Hx Known/Suspected VRE, Hx Known/Suspected VRSA, Traveled Outside the [place] in Last 30 Days - Family History Known Family History: Positive: Cardiac Disease, Hypertension, Other - CVA Family History: R & N/C - Social History Occupation: Disabled Lives: Alone Alcohol Use: None Alcohol Amount: former EtOH abuse Hx Substance Use: Yes Substance Use Type: Reports: Marijuana Substance Use Comment - Amount & Last Used: last used last night Hx Tobacco Use: Yes Smoking Status (MU): Former Smoker Type: Cigarettes Have You Smoked in the Last Year: No Review of Systems Positive: Epistaxis Positive: Chest Pain Positive: Shortness Of Breath, Cough Positive: Abdominal Pain, Vomiting All Other Systems Reviewed And Are Negative: Yes Physical Exam Triage Information Reviewed: Yes Vital Signs On Initial Exam: Initial Vitals Temp Pulse Resp BP Pulse Ox 99.1 F 86 20 180/142 100 01/12/17 11:07 01/12/17 11:07 01/12/17 11:07 01/12/17 11:07 01/12/17 11:07 Vital Signs Reviewed: Yes Appearance: Positive: Well-Appearing, No Pain Distress Skin: Positive: Warm, Skin Color Reflects Adequate Perfusion, Dry Eyes: Positive: EOMI, KINGS ENT: Positive: TMs normal, Other - Gagging in room Neck: Positive: Supple, Nontender Respiratory/Lung Sounds: Positive: Clear to Auscultation, Breath Sounds Present. Negative: Rales, Rhonchi, Wheezes Cardiovascular: Positive: RRR. Negative: Murmur, Rub Abdomen Description: Positive: Soft, Other: - Diffuse tenderness. Negative: Distended, Guarding Bowel Sounds: Positive: Present Musculoskeletal: Positive: Strength/ROM Intact. Negative: Edema Left, Edema Right Neurological: Positive: Sensory/Motor Intact, Alert, Oriented to Person Place, Time, CN Intact II-III Psychiatric: Positive: Affect/Mood Appropriate - Kian Coma Scale Coma Scale Total: 15 Diagnostics - Vital Signs Vital Signs Temp Pulse Resp BP Pulse Ox 01/12/17 11:19 82 20 01/12/17 11:13 85 205/138 100 01/12/17 11:10 86 196/141 100 01/12/17 11:08 180/142 01/12/17 11:07 99.1 F 86 20 180/142 100 - Laboratory Lab Results: Lab Results 01/12/17 01/12/17 01/12/17 Range/Units 12:58 12:58 12:58 WBC 4.1 (3.5-10.8) 10^3/ul RBC 3.86 L (4.0-5.4) 10^6/ul Hgb 10.5 L (14.0-18.0) g/dl Hct 34 L (42-52) % MCV 87 (80-94) fL MCH 27 (27-31) pg MCHC 31 (31-36) g/dl RDW 19 H (10.5-15) % Plt Count 129 L (150-450) 10^3/ul MPV 9 (7.4-10.4) um3 Neut % (Auto) 65.0 (38-83) % Lymph % (Auto) 17.9 L (25-47) % [place] % (Auto) 15.2 H (1-9) % Eos % (Auto) 0.7 (0-6) % Baso % (Auto) 1.2 (0-2) % Absolute Neuts (auto) 2.7 (1.5-7.7) 10^3/ul Absolute Lymphs (auto) 0.7 L (1.0-4.8) 10^3/ul Absolute Monos (auto) 0.6 (0-0.8) 10^3/ul Absolute Eos (auto) 0 (0-0.6) 10^3/ul Absolute Basos (auto) 0 (0-0.2) 10^3/ul Absolute Nucleated RBC 0.01 10^3/ul Nucleated RBC % 0.3 Sodium 136 (133-145) mmol/L Potassium 4.0 (3.5-5.0) mmol/L Chloride 90 L (101-111) mmol/L Carbon Dioxide 36 H (22-32) mmol/L Anion Gap 10 (2-11) mmol/L BUN 19 (6-24) mg/dL Creatinine 5.06 H (0.67-1.17) mg/dL Est GFR ( Amer) 14.9 (>60) Est GFR (Non-Af Amer) 11.6 (>60) BUN/Creatinine Ratio 3.8 L (8-20) Glucose 71 (70-100) mg/dL Lactic Acid 1.1 (0.5-2.0) mmol/L Calcium 9.1 (8.6-10.3) mg/dL Total Bilirubin 0.60 (0.2-1.0) mg/dL AST 30 (13-39) U/L ALT 15 (7-52) U/L Alkaline Phosphatase 63 (34-104) U/L Troponin I 0.05 H* (<0.04) ng/mL Total Protein 7.9 (6.4-8.9) g/dL Albumin 4.1 (3.2-5.2) g/dL Globulin 3.8 (2-4) g/dL Albumin/Globulin Ratio 1.1 (1-3) Result Diagrams: 01/12/17 12:58 01/12/17 12:58 Lab Statement: Any lab studies that have been ordered have been reviewed, and results considered in the medical decision making process. - Radiology CXR Radiology Interpretation Completed By: Radiologist - IMPRESSION: 1. New airspace consolidation at the RIGHT mid to lower lung zone is suspicious for potential pneumonia. Correlate with clinical assessment. 2. Mild pulmonary vascular congestion. 3. Unchanged small bilateral pleural effusions. ABDOMEN XR Radiology Interpretation Completed By: Radiologist - IMPRESSION: MODERATE RETAINED STOOL. NO OBSTRUCTION OR FREE INTRAPERITONEAL AIR - EKG 13:58 Cardiac Rate: NL - 81 BPM EKG Interpretation: LVH. Nonspecific T wave changes. EKG Comparison: No Significant Change - compared to this morning - Additional Comments Diagnostic Additional Comments: Troponin I - 0.05 Complex Multi-Symp Course/Dx Course Of Treatment: 66 yo male with cp, abd pain and vomiting. pt taken by Dr. Brothers for obv admission with his new infiltrate on cxr - Diagnoses Provider Diagnoses: Chest pain, Vomiting - Physician Notifications Discussed Care Of Patient With: Dr. Drew at 13:15. Patient will be admitted. Discharge - Discharge Plan Condition: Stable Disposition: ADMITTED TO [facility] documentation as recorded by the Nawaf casey Adam accurately reflects the service I personally performed and the decisions made by me, Annie Boyd MD.
[2017-01-12] MEDS: oxyCODONE TAB* 5 MG TAB PO PRN (16:36)
[2017-01-12] MEDS: Pancrelipase (NF) 12,000 UNITS CAP.DR PO SCH ×3 (17:15→20:42)
[2017-01-12] MEDS: SUCROFERRIC OXYHYDROXIDE PO SCH (17:51)
[2017-01-12] MEDS ORDERED: hydrALAZINE IV* 20 MG/ML VIAL IV PRN (19:52)
[2017-01-12] MEDS: Carvedilol TAB* 25 MG PO SCH (20:30)
[2017-01-12] MEDS: Omeprazole CAP* 20 MG PO SCH (20:30)
[2017-01-12] MEDS: hydrALAZINE TAB* 25 MG PO SCH (20:30)
[2017-01-12] MEDS: Gabapentin CAP(*) 300 MG PO SCH (20:32)
[2017-01-12] MEDS: Heparin VIAL(*) 5000 UNITS/ML VIAL (FIVE THOUSAND) SUBCUT SCH (21:29)
--- NOTE | 2017-01-12 22:06 | HP ---
HISTORY AND PHYSICAL: DATE OF ADMISSION: 01/12/17 TIME OF EVALUATION: 02:00 p.m. PRIMARY CARE PROVIDER: Dr. Octaviano Pratt. CHIEF COMPLAINT: Chest pain. HISTORY OF PRESENT ILLNESS: Mr. Templeton is a 66-year-old male with a complex past medical history that includes atrial fibrillation; end-stage renal disease , on hemodialysis; coronary artery disease; peripheral vascular disease; GERD; hepatitis C; chronic anemia; chronic pain; cardiomyopathy with ejection fraction of 40%, status post CABG with mitral and tricuspid valve repair; status post ICD placement; status post appendectomy who presented to the emergency room with complaints of chest pain. Mr. Templeton states he was in his usual state of health until 3 days ago when he states he came down with the "flu." He describes chills, body aches, cough that was initially dry and now has whitish phlegm. He says that he was not feeling well today and actually thought about skipping dialysis. He was able to go and have it done, but he states that by the time it was completed, he was feeling worse with chest pain 10/10 in intensity and he decided to come to the emergency room. The patient was admitted on 12/08/16 with complaints of chest pain and syncope. He had a nuclear stress test that showed a moderate fixed defect consistent with infarct with questionable small reversible defect suggestive of artifact versus small area of ischemia with ejection fraction of 47%. This result was discussed with Cardiology (Dr. Ruff) and he felt that those changes represented mostly artifact and there was no indication for catheterization at that time. PAST MEDICAL HISTORY: 1. Atrial fibrillation. 2. End-stage renal disease, on hemodialysis. 3. Coronary artery disease, status post CABG. 4. Status post mitral valve and tricuspid valve repairs. 5. PVD. 6. GERD. 7. Hepatitis C. 8. Anemia. 9. Chronic pain. 10. Cardiomyopathy. 11. Status post ICD. 12. Status post appendectomy. MEDICATIONS: 1. Acetaminophen 650 mg p.o. q.8 hours p.r.n. pain or fever. 2. Albuterol HFA 2 puffs inhaled q.4 hours p.r.n. shortness of breath. 3. Amlodipine 10 mg p.o. daily. 4. Nephro-Dameon 1 tablet p.o. daily. 5. Coreg 25 mg p.o. b.i.d. 6. Cinacalcet 30 mg p.o. daily. 7. Benadryl 75 mg p.o. daily as needed for allergies. 8. Colace 100 mg p.o. daily. 9. Lexapro 10 mg p.o. daily. 10. Gabapentin 600 mg p.o. t.i.d. 11. Hydralazine 25 mg p.o. t.i.d. 12. Lisinopril 10 mg p.o. daily. 13. Ativan 0.5 to 1 mg p.o. b.i.d. as needed for anxiety. 14. Nitroglycerin 0.4 mg sublingual q.5 minutes p.r.n. chest pain. 15. Omeprazole 40 mg p.o. b.i.d. 16. Oxycodone 15 mg p.o. every 4 hours p.r.n., MDD 90 mg. 17. Pancrelipase 12 units p.o. 4 times a day before meals. 18. Simvastatin 10 mg p.o. daily. 19. Sodium polystyrene 15 g daily as needed, if patient misses dialysis. 20. Velphoro 2000 mg p.o. before meals. 21. Trazodone 100 mg p.o. at bedtime. 22. Zolpidem 10 mg p.o. at bedtime as needed for insomnia. ALLERGIES: The patient has reactions to ASPIRIN and DILAUDID. FAMILY HISTORY: Mother had a history of coronary artery disease and CVA. SOCIAL HISTORY: He is a former smoker. No history of alcohol use. He smokes marijuana occasionally. Surrogate decision maker is his brother, Joe Templeton, phone number is [phone]. REVIEW OF SYSTEMS: A 14-point review of system was performed and all the pertinent negative and positive findings are in the HPI. PHYSICAL EXAMINATION GENERAL: The patient is a pleasant gentleman, sitting up in the ER stretcher, in no acute distress. VITAL SIGNS: Temperature 99.1, heart rate is 82, respiratory rate is 22, oxygen saturation is 100% on 4 L nasal cannula, blood pressure is 210/110. HEENT: Pupils are equal. Moist mucous membranes. CVS: Normal S1, S2. Regular rate and rhythm. CHEST: There is a tunneled catheter on the right. Breath sounds are present bilaterally, coarse, but with no added sounds. ABDOMEN: Soft. Bowel sounds are present. EXTREMITIES: No edema. NEUROLOGIC: He is alert and oriented x3. Able to move all 4 extremities. LABORATORY AND IMAGING DATA: EKG done on 01/12/17 at 1358 shows sinus rhythm at 81 beats per minute with signs of LVH, T flattening in V5 and V6 and actually the patient had ST depressions on the same leads earlier today. Chest x-ray showed new air space consolidation at the right mid lower lung zone suspicion for pneumonia. Abdomen X-ray showed stool, but no obstruction or free intraperitoneal air. Laboratory and imaging data showed a WBC of 4.1, hemoglobin of 10.5, hematocrit of 44, platelets of 129 with 55% neutrophils. Chemistry showed a sodium 136, potassium 4, chloride 90, bicarb of 36, BUN of 19, creatinine of 5, glucose of 71, lactic acid of 1.1. LFTs are normal. Troponin 0.05. ASSESSMENT AND PLAN: Mr. Templeton is a 66-year-old male with past medical history of atrial fibrillation, end-stage renal disease, coronary artery disease, peripheral vascular disease, gastroesophageal reflux disease, hepatitis C, chronic anemia, and chronic pain who presents to the emergency room with complaints of chest pain with chills and cough and found to have pneumonia. 1. Chest pain, rule out acute coronary syndrome. The patient will be admitted as observation to the telemetry floor. We are going to check serial serial troponins to rule out acute coronary syndrome, but I believe a stress test is not indicated as he had one done a month ago. 2. Hypertensive urgency. The patient's blood pressure is always elevated, but it is severely higher now and this is probably because of pain. We are going to continue his antihypertensives, manage his pain and he will receive one dose of hydralazine now. 3. Pneumonia. I believe this is healthcare-associated pneumonia since the patient is on hemodialysis and is frequently admitted or in the emergency room. He will be started on levofloxacin adjusted to his renal function. Blood cultures will be sent and we are going to order sputum cultures too. Legionella and pneumococcal antigen, we will be ordering the urine and a rapid influenza test will also be performed. 4. End-stage renal disease. We will continue dialysis on the same schedule. 5. DVT prophylaxis. The patient has a score of 3 on the DVT Prophylaxis Risk Assessment Guide and he will be started on subcutaneous heparin. 6. Code status is full. TIME SPENT: Approximately 45 minutes were spent with the patient interview, medical records review, physical examination to complete the admission; more than the time was spent [id number] with the patient in coordination of care. CC: Octaviano Pratt MD; Dr. Dalal* [id number]/[facility] #: [id number] MTDD
[2017-01-13] MEDS ORDERED: niCARdipine 0.1MG/ML IVPREMIX* 20 MG/200 ML BAG ONE (00:18)
[2017-01-13] MEDS: niCARdipine 0.1MG/ML IVPREMIX* 20 MG/200 ML BAG IV SCH ×6 (00:30→22:45)
[2017-01-13] MEDS: traZODone TAB* 100 MG PO SCH ×2 (00:37→21:37)
[2017-01-13] MEDS: Heparin VIAL(*) 5000 UNITS/ML VIAL (FIVE THOUSAND) SUBCUT SCH ×4 (06:09→21:38)
[2017-01-13 06:21] LABS: Hematocrit 33 % (42-52); Hemoglobin 10.4 g/dl (14.0-18.0); Mean Corpuscular HGB Conc 31 g/dl (31-36); Mean Corpuscular Hemoglobin 27 pg (27-31); Mean Corpuscular Volume 87 fL (80-94); Mean Platelet Volume 9 um3 (7.4-10.4); Red Blood Count 3.81 10^6/ul (4.0-5.4); Red Cell Distribution Width 19 % (10.5-15); White Blood Count 4.9 10^3/ul (3.5-10.8)
[2017-01-13 06:33] LABS: Blood Urea Nitrogen 27 mg/dL (6-24); CO2 Carbon Dioxide 33 mmol/L (22-32); Calcium 8.8 mg/dL (8.6-10.3); Chloride 92 mmol/L (101-111); EGFR African American 10.7 (>60); EGFR Non-African American 8.3 (>60); Glucose 85 mg/dL (70-100); Sodium 134 mmol/L (133-145)
[2017-01-13] MEDS: Ondansetron INJ* 2 MG/ML VIAL IV PRN ×3 (08:25→20:32)
[2017-01-13] MEDS: Omeprazole CAP* 20 MG PO SCH ×2 (08:27→21:37)
[2017-01-13] MEDS: Lisinopril TAB* 10 MG PO SCH (08:28)
[2017-01-13] MEDS: amLODIPine TAB* 5 MG PO SCH (08:28)
[2017-01-13] MEDS: Gabapentin CAP(*) 300 MG PO SCH ×4 (08:28→21:37)
[2017-01-13] MEDS: Folic Acid TAB* 1 MG PO SCH (08:29)
[2017-01-13] MEDS: Docusate CAP* 100 MG PO SCH (08:29)
[2017-01-13] MEDS: hydrALAZINE TAB* 25 MG PO SCH ×3 (08:29→21:37)
[2017-01-13] MEDS: SUCROFERRIC OXYHYDROXIDE PO SCH ×3 (08:33→16:36)
[2017-01-13] MEDS: CMC:Escitalopram (NF) 10 MG TAB PO SCH (08:33)
[2017-01-13] MEDS: Cinacalcet TAB* 30 MG PO SCH (08:33)
[2017-01-13] MEDS: Pancrelipase (NF) 12,000 UNITS CAP.DR PO SCH ×4 (08:33→21:37)
[2017-01-13] MEDS: Vitamin B Complex TAB PO SCH (08:34)
[2017-01-13] MEDS: CMC:Simvastatin TAB(NF) 10 MG TAB PO SCH (08:34)
[2017-01-13] MEDS ORDERED: Isosorbide Mononitrate ER TAB* 30 MG PO ONE ×2 (10:28→15:58)
[2017-01-13] MEDS: Carvedilol TAB* 25 MG PO SCH ×2 (10:33→21:37)
--- NOTE | 2017-01-13 10:34 | PN ---
Subjective Date of Service: 01/13/17 Interval History: This is a 66 yo male with ESRD on HD MWF as well as ischemic cardiomyopathy with EF of 40% , PVD, GERD, chronic anemia and chronic pain who presented yesterday with complaints of CP. He had been complaining of chills and body aches for about 3 days prior and presented for dialysis yesterday. He reports he developed worsening CP during dialysis. CXR demonstrated a RML PNA. Initial trop 0.05 which has remained stable overnight and no acute EKG changes. He was quite hypertensive in the ER, initially treated with IV hydralazine. BP remained poorly controlled overnight and pt was transferred to the ICU for nicardipine drip. This am, patient denies CP. He denies SOB. No abd pain, n/v. No LE edema. No cough. States that he is feeling much better. Objective Active Medications: Acetaminophen (Tylenol Tab*) 650 mg PO Q8HR PRN PRN Reason: PAIN Albuterol (Ventolin Hfa Inhaler*) 2 puff INH Q4HR PRN PRN Reason: SHORTNESS OF BREATH Amlodipine Besylate (Norvasc Tab*) 10 mg PO DAILY [facility] Last Admin: 01/13/17 08:28 Dose: 10 mg Carvedilol (Coreg Tab*) 25 mg PO BID [facility] Last Admin: 01/12/17 20:30 Dose: 25 mg Cinacalcet (Sensipar Tab*) 30 mg PO DAILY [facility] Last Admin: 01/13/17 08:33 Dose: 30 mg Diphenhydramine HCl (Benadryl Po*) 50 mg PO DAILY PRN PRN Reason: Allergy Symptoms Diphenhydramine HCl (Benadryl Po*) 25 mg PO DAILY PRN PRN Reason: ITCHING Docusate Sodium (Colace Cap*) 100 mg PO DAILY [facility] Last Admin: 01/13/17 08:29 Dose: 100 mg Escitalopram Oxalate (Lexapro (Nf)) 10 mg PO DAILY [facility] Last Admin: 01/13/17 08:33 Dose: 10 mg Folic Acid (Folvite Tab*) 0.5 mg PO DAILY [facility] Last Admin: 01/13/17 08:29 Dose: 0.5 mg Gabapentin (Neurontin Cap(*)) 600 mg PO TID [facility] Last Admin: 03/28/17 08:28 Dose: 600 mg Heparin Sodium (Porcine) (Heparin Vial(*)) 5,000 units SUBCUT Q8HR [facility] Last Admin: 01/13/17 06:09 Dose: Not Given Hydralazine HCl (Apresoline Tab*) 25 mg PO TID [facility] Last Admin: 01/13/17 08:29 Dose: 25 mg Hydralazine HCl (Apresoline Iv*) 10 mg IV Q4H PRN PRN Reason: Systolic >180 Last Admin: 01/12/17 20:30 Dose: 10 mg Levofloxacin/Dextrose (Levaquin 500 Mg Ivpremix(*)) 500 mg in 100 mls @ 100 mls /hr IVPB Q48H [facility] Nicardipine/Sodium Chloride (Cardene 0.1mg/Ml Ivpremix*) 20 mg in 200 mls @ 50 mls/hr IV .(as Initial Rate) [facility] PRN Reason: 5 MG/HR Last Admin: 01/13/17 09:32 Dose: 50 mls/hr Lisinopril (Prinivil Tab*) 10 mg PO DAILY [facility] Last Admin: 01/13/17 08:28 Dose: 10 mg Nitroglycerin (Nitroglycerin Tab 0.4 Mg*) 0.4 mg SL Q5M PRN PRN Reason: PAIN - CHEST (Sucroferric Oxyhydroxide [ Velphoro] 2,000 Mg) 2,000 mg PO AC [facility] Last Admin: 01/13/17 08:33 Dose: Not Given Omeprazole (Prilosec Cap*) 40 mg PO BID [facility] Last Admin: 01/13/17 08:27 Dose: 40 mg Ondansetron HCl (Zofran Inj*) 4 mg IV Q6H PRN PRN Reason: NAUSEA Last Admin: 01/13/17 08:25 Dose: 4 mg Oxycodone HCl (Roxycodone Tab*) 15 mg PO Q4HR PRN PRN Reason: PAIN Last Admin: 01/12/17 16:36 Dose: 15 mg Pancrelipase (Creon (Nf)) 12,000 units PO QID ACHS [facility] Last Admin: 01/13/17 08:33 Dose: Not Given Prochlorperazine Edisylate (Compazine Inj*) 10 mg IV Q6H PRN PRN Reason: NAUSEA Simvastatin (Zocor(Nf)) 10 mg PO DAILY [facility] Last Admin: 01/13/17 08:34 Dose: 10 mg Trazodone HCl (Desyrel Tab*) 100 mg PO BEDTIME [facility] Last Admin: 01/13/17 00:37 Dose: Not Given Vitamin B Complex/Vitamin E (Complex B-100*) 1 tab PO DAILY [facility] Last Admin: 01/13/17 08:34 Dose: 1 tab Zolpidem Tartrate (Ambien Tab*) 10 mg PO BEDTIME PRN PRN Reason: SLEEP Vital Signs: Temp Pulse Resp BP Pulse Ox 97.8 F 69 10 196/109 97 01/13/17 07:30 01/13/17 09:15 01/13/17 09:15 01/13/17 09:15 01/13/17 09:15 Oxygen Devices in Use Now: None Appearance: Well appearing in NAD Respiratory: Symmetrical Chest Expansion and Respiratory Effort, Clear to Auscultation Cardiovascular: NL Sounds; No Murmurs; No JVD, RRR Abdominal: NL Sounds; No Tenderness; No Distention Extremities: No Edema Skin: No Rash or Ulcers Neurological: Alert and Oriented x 3 Result Diagrams: 01/13/17 06:01 01/13/17 06:01 Additional Lab and Data: . Diagnostic Imaging: CXR - RML consolidation EKG Data: sinus RBBB, LVH pattern Assess/Plan/Problems-Billing Assessment: This is a 66 yo gentleman with a long medical history including ESRD on HD with ischemic cardiomyopathy with EF 40% as well as afib, PVD, GERD, Hep C, chronic anemia, chronic pain, prior mitral/tricuspid valve repair who presents with c/o CP with PNA on CXR and hypertensive urgency. - Patient Problems (1) Hypertensive urgency Comment: Requiring nicardepine drip for BP control No c/o CP at this time Will add isosorbide to his antihypertensive regimen and work to titrate down his drip Can transfer to telemetry floor when sBP <180 mmHg without drip (2) PNA (pneumonia) Comment: Consider health care acquired pathogens Started on Levaquin No cough or fever Cont renally adjusted Levaquin (3) Chest pain Comment: Now asymptomatic No evidence of ACS Perhaps due to PNA (4) Anemia Comment: Chronic secondary to ESRD Stable (5) Cardiomyopathy Comment: LVEF 35-40% on TTE 09/05/15. Continue lisinopril, carvedilol. (6) Chronic pain Comment: Continue his outpt pain regimen. (7) Coronary artery disease Comment: Continue home medication regimen. (8) End stage renal failure on dialysis Comment: Continue HD MWF (9) Hepatitis C (10) ICD (implantable cardioverter-defibrillator) in place Comment: Status and Disposition: Patient requires continued hospital care. Will transfer to inpatient status. Anticipate dc in 1-2 days. Likely transfer back to tele floor this afternoon.
[2017-01-14] MEDS: Heparin VIAL(*) 5000 UNITS/ML VIAL (FIVE THOUSAND) SUBCUT SCH (07:02)
[2017-01-14] MEDS: Docusate CAP* 100 MG PO SCH (08:13)
[2017-01-14] MEDS: Lisinopril TAB* 10 MG PO SCH (08:13)
[2017-01-14] MEDS: Gabapentin CAP(*) 300 MG PO SCH ×2 (08:13→14:15)
[2017-01-14] MEDS: CMC:Escitalopram (NF) 10 MG TAB PO SCH (08:14)
[2017-01-14] MEDS: Omeprazole CAP* 20 MG PO SCH (08:14)
[2017-01-14] MEDS: Folic Acid TAB* 1 MG PO SCH (08:14)
[2017-01-14] MEDS: Vitamin B Complex TAB PO SCH (08:14)
[2017-01-14] MEDS: Cinacalcet TAB* 30 MG PO SCH (08:14)
[2017-01-14] MEDS: hydrALAZINE TAB* 25 MG PO SCH (08:15)
[2017-01-14] MEDS: CMC:Simvastatin TAB(NF) 10 MG TAB PO SCH (08:15)
[2017-01-14] MEDS: amLODIPine TAB* 5 MG PO SCH (08:15)
[2017-01-14] MEDS: Pancrelipase (NF) 12,000 UNITS CAP.DR PO SCH ×2 (08:32→12:54)
[2017-01-14] MEDS: SUCROFERRIC OXYHYDROXIDE PO SCH ×2 (08:32→12:54)
[2017-01-14] MEDS ORDERED: Isosorbide Mononitrate ER TAB* 60 MG PO SCH (09:00)
[2017-01-14] MEDS ORDERED: Isosorbide Mononitrate ER TAB* 30 MG PO SCH (09:00)
[2017-01-14] MEDS: Carvedilol TAB* 25 MG PO SCH (09:27)
[2017-01-14] MEDS: oxyCODONE TAB* 5 MG TAB PO PRN (09:27)
[2017-01-14] MEDS ORDERED: Epoetin Alfa* 10,000 UNITS/ML VIAL IV ONE (12:00)
[2017-01-14] MEDS ORDERED: Heparin DIALYSIS ONLY(*) 1,000 UNITS/ML VIAL DIALYSIS ONE (12:00)
[2017-01-14 12:21] VITALS: BP 120/84
[2017-01-14 12:29] LABS: BUN/Creatinine Ratio 4.7 (8-20); Calcium 8.4 mg/dL (8.6-10.3); EGFR African American 7.7 (>60); Potassium 4.8 mmol/L (3.5-5.0)
[2017-01-14] MEDS ORDERED: Levofloxacin 500 MG IVPREMIX(* 500 MG/100 ML BAG IVPB SCH (15:00)
--- NOTE | 2017-01-14 22:09 | DS ---
DISCHARGE SUMMARY: DATE OF ADMISSION: 01/12/17 DATE OF DISCHARGE: 01/14/17 PRIMARY CARE PROVIDER: Octaviano Pratt MD DISCHARGING PROVIDER: ELEAZAR Russell SUPERVISING PHYSICIAN: DO Sanjeev Gibson (dictated by ELEAZAR Russell) PRIMARY DISCHARGE DIAGNOSES: 1. Hypertensive urgency with chest pain. 2. Pneumonia. SECONDARY DISCHARGE DIAGNOSES: 1. End-stage renal failure, on hemodialysis on Thursday, Thursday, Thursday. 2. Chronic anemia secondary to end-stage renal disease. 3. Cardiomyopathy with left ventricular ejection fraction 35% to 40%. 4. Chronic pain. 5. Coronary artery disease without evidence of acute coronary syndrome. 6. History of hepatitis C. 7. ICD in place. DISCHARGE MEDICATIONS: 1. Acetaminophen 650 mg p.o. q.8 hours as needed for pain or fever. 2. Albuterol sulfate 2 puffs inhaled q.4 hours as needed for shortness of breath. 3. Vitamin B complex with folic acid 1 tablet p.o. daily. 4. Carvedilol 25 mg p.o. twice daily. 5. Sensipar 30 mg p.o. daily. 6. Docusate 100 mg p.o. daily. 7. Lexapro 10 mg p.o. daily. 8. Gabapentin 600 mg p.o. t.i.d. 9. Isosorbide mononitrate 60 mg p.o. daily. 10. Lorazepam 0.5 mg to 1 mg p.o. twice daily as needed for anxiety. 11. Lisinopril 10 mg p.o. daily. 12. Nitroglycerin tab 0.4 mg sublingual q.5 minutes as needed for chest pain. 13. Omeprazole 40 mg p.o. b.i.d. 14. Oxycodone 15 mg p.o. q.4 hours as needed for pain. 15. Pancrelipase 94519 units p.o. with meals. 16. Simvastatin 10 mg p.o. daily. 17. Kionex 15 g p.o. daily as directed by dialysis. 18. Sucroferric oxyhydroxide 2000 mg p.o. at mealtime. 19. Ambien 10 mg p.o. at bedtime. 20. Amlodipine 10 mg p.o. daily. 21. Diphenhydramine 25 mg p.o. daily as needed for itching. 22. Hydralazine 50 mg p.o. t.i.d. 23. Trazodone 100 mg p.o. at bedtime. MEDICATION CHANGES: 1. Start isosorbide. 2. Increase hydralazine. 3. Levaquin 250 mg p.o. daily x7 days. HOSPITAL IMAGIN. Abdominal x-ray shows moderate retained stool, no evidence of obstruction. 2. Chest x-ray shows right mid to lower lung zone consolidation suspicious for pneumonia and mild pulmonary vascular congestion. 3. EKG shows sinus rhythm with an incomplete right bundle branch block and LVH by voltage criteria without acute ischemic changes. HOSPITAL COURSE: This is a 66-year-old gentleman with frequent hospital admissions and end-stage renal disease, on hemodialysis as well as ischemic cardiomyopathy, atrial fibrillation, peripheral vascular disease, GERD, hepatitis C, chronic pain and chronic anemia, who presented to the emergency department with complaints of chest pain. The patient had been complaining of chills and body aches and a cough for about 3 days prior to his hospital admission. He states that he felt poorly and went to dialysis. During dialysis and following, the patient had increasingly severe chest pain and presented to the emergency department for evaluation. Initial troponin was 0.05 , which remained stable upon repeat at 0.06 and again at 0.06. His CBC was unremarkable with the exception of normocytic anemia with hemoglobin of 10.5, which is near his baseline. Chemistries were unremarkable only for creatinine of 5.06, this is not to be unexpected given his renal function and otherwise unremarkable. Influenza testing was negative. X-ray of his abdomen was performed, which showed no evidence of obstruction. A chest x-ray showed evidence of a right middle lobe pneumonia. Blood pressure at the time of admission was 180/142 mmHg and climbed as high as 221 systolic. The patient was treated with IV hydralazine in the emergency department and admitted to the telemetry floor. His blood pressure was unmanageable on the telemetry floor and the patient was subsequently transferred to the ICU on nicardipine drip. The patient's hydralazine was increased from 25 mg 3 times daily to 50 mg 3 times daily and started on isosorbide, titrated up to 60 mg daily and he remained on his typical dose of carvedilol. Blood pressure improved to systolic pressures in the 120s overnight last night since the nicardipine drip was discontinued and blood pressures continue in the 150 systolic in the morning today. The patient's complaints of chest pain have resolved. Nursing staff did note that the patient was pocketing some of his antihypertensive medications and when confronted about this, he was quite upset , but was eventually compliant with taking all his medications as directed. The importance of compliance with his medications especially his antihypertensives were stressed at the time of discharge. DISPOSITION: The patient is being discharged to home. He is receiving his typical dialysis therapy today prior to discharge and will resume his usual schedule of Thursday, Thursday, Thursday. Recommend continuing treatment for pneumonia at renally adjusted dose of Levaquin and follow up with primary care provider. Antihypertensives were dose adjusted as described above. ELEAZAR RUSSELL CC: Jose Eduardo Dalal MD; Octaviano Pratt MD* [id number]/[facility] #: [id number] MTDD
== END 2017-01-14 14:30 | disposition home or self-care (01) | DRG 193 ==
LOC: ED 10:57 → MEDTELE 13:21 → ICU 01-13 00:39 → OBSVTOIN 01-13 07:11
PROVIDERS: ADMIT Internal Medicine; ATTEND Hospitalist
PROC: 5A1D60Z (ICD-10-PCS; principal; 2017-01-14)
DX: J18.1 Lobar pneumonia, unspecified organism (principal); N18.6 End stage renal disease; I13.2 Hypertensive heart and chronic kidney disease with heart failure and with stage 5 chronic kidney disease, or end stage renal disease; E11.22 Type 2 diabetes mellitus with diabetic chronic kidney disease; E11.51 Type 2 diabetes mellitus with diabetic peripheral angiopathy without gangrene; I48.91 Unspecified atrial fibrillation; K27.9 Peptic ulcer, site unspecified, unspecified as acute or chronic, without hemorrhage or perforation; G43.909 Migraine, unspecified, not intractable, without status migrainosus; I16.0 Hypertensive urgency; I25.10 Atherosclerotic heart disease of native coronary artery without angina pectoris; J44.9 Chronic obstructive pulmonary disease, unspecified; K74.60 Unspecified cirrhosis of liver; K21.9 Gastro-esophageal reflux disease without esophagitis; M19.90 Unspecified osteoarthritis, unspecified site; G89.29 Other chronic pain; M54.9 Dorsalgia, unspecified; H40.9 Unspecified glaucoma; F32.9 Major depressive disorder, single episode, unspecified; F41.9 Anxiety disorder, unspecified; B19.20 Unspecified viral hepatitis C without hepatic coma; F12.90 Cannabis use, unspecified, uncomplicated; I25.5 Ischemic cardiomyopathy; D63.1 Anemia in chronic kidney disease; I50.9 Heart failure, unspecified; I45.10 Unspecified right bundle-branch block; Z99.2 Dependence on renal dialysis; Z95.1 Presence of aortocoronary bypass graft; Z88.8 Allergy status to other drugs, medicaments and biological substances; Z88.5 Allergy status to narcotic agent; Z87.01 Personal history of pneumonia (recurrent); Z82.49 Family history of ischemic heart disease and other diseases of the circulatory system; Z82.3 Family history of stroke; Z87.891 Personal history of nicotine dependence; Z95.810 Presence of automatic (implantable) cardiac defibrillator
CPT/HCPCS: 36415; 70450; 71010; 74020; 74176; 80048; 80053; 83605; 83690; 84484; 85025; 87040; 87502; 87641; 90935; 93005; 96374; 96375; 99282; A9270-GY; G0257; G0378; J0360; J0780; J0885; J1170; J1644; J1956; J2060; J2270; J2405

== ENCOUNTER 2017-01-29 23:34 | Emergency (ER) | payer MEDICARE, MEDICAID ==
[2017-01-29] MEDS ORDERED: cloNIDine TAB* 0.1 MG PO ONE (23:55)
[2017-01-29] MEDS ORDERED: Morphine INJ* 4 MG/ML 1 ML SYRINGE IV ONE (23:56)
[2017-01-30 00:04] LABS: Hematocrit 35 % (42-52); Hemoglobin 11.1 g/dl (14.0-18.0); Mean Corpuscular HGB Conc 32 g/dl (31-36); Mean Corpuscular Hemoglobin 28 pg (27-31); Mean Corpuscular Volume 87 fL (80-94); Mean Platelet Volume 8 um3 (7.4-10.4); Red Blood Count 4.05 10^6/ul (4.0-5.4); Red Cell Distribution Width 19 % (10.5-15); White Blood Count 4.1 10^3/ul (3.5-10.8)
[2017-01-30 00:14] LABS: Albumin 4.3 g/dL (3.2-5.2); BUN/Creatinine Ratio 3.9 (8-20); Calcium 8.9 mg/dL (8.6-10.3); EGFR African American 7.5 (>60); EGFR Non-African American 5.8 (>60); Globulin 4.3 g/dL (2-4); Magnesium 2.5 mg/dL (1.9-2.7); Total Bilirubin 0.5 mg/dL (0.2-1.0); Total Protein 8.6 g/dL (6.4-8.9)
[2017-01-30 00:23] LABS: Troponin I 0.04 ng/mL (<0.04)
--- NOTE | 2017-01-30 00:39 | ED ---
shruthi Briones Timothy, scribed for Luis Fernando Jimenez MD on 01/29/17 at 2345 . HPI Chest Pain - HPI Summary HPI Summary: Pato Templeton is a 66 yo male presenting to [facility] with 9/10 sharp CP upon waking up at 2340 today. He also had SOB with dizziness, and he states deep breaths increase the pain. He received 1 tab of NTG PC TECH.His MHx includes CAD, MVR, MT, CHF, angina, CABG 2x 02/2014, pacemaker, HTN, IDDM w/ dialysis 3x per week, syncope, COPD, asthma, pleural effusion, PNA, PUD, GERD, renal disease/ failure, Hep C, anemia, cirrhosis, MRSA depression, anxiety, substance use, tobacco use. - History of Current Complaint Time Seen by Provider: 01/29/17 23:52 Hx Obtained From: Patient Onset/Duration: Started Minutes Ago, Still Present Time of Onset: 23:40 Timing: Constant Initial Severity: Moderate Current Severity: Moderate Pain Intensity: 9 Pain Scale Used: 0-10 Numeric Chest Pain Location: Diffuse Character: Sharp/Stabbing Aggravating Factor(s): Deep Breaths Associated Signs and Symptoms: Positive: Chest Pain, Dizziness, Shortness of Breath - Additional Pertinent History Primary Care Physician: [id number] - Allergy/Home Medications Allergies/Adverse Reactions: Allergies Allergy/AdvReac Type Severity Reaction Status Date / Time Aspirin Allergy Unknown See Comment Verified 01/29/17 23:41 Hydromorphone [From Dilaudid] AdvReac Intermediate Nausea And Verified 01/29/17 23:41 Vomiting PMH/Surg Hx/FS Hx/Imm Hx Endocrine/Hematology History: Reports: Hx Blood Transfusions, Hx Sickle Cell Disease - Was told had sickle cell at one point but denies, Hx Anemia Denies: Hx Anticoagulant Therapy, Hx Bone Marrow Disease, Hx Diabetes, Hx Thyroid Disease Cardiovascular History: Reports: Hx Angina, Hx Congestive Heart Failure, Hx Coronary Artery Disease, Hx Hypertension, Hx Pacemaker/ICD, Hx Peripheral Vascular Disease, Hx Syncope, Other Cardiovascular Problems/Disorders - IDDM W/ DIALYSIS 3XPER WK Denies: Hx Cardiomegaly, Hx Hypercholesterolemia, Hx Myocardial Infarction, Hx Rheumatic Fever, Hx Valvular Heart Disease Respiratory History: Reports: Hx Asthma, Hx Chronic Obstructive Pulmonary Disease (COPD), Hx Pleural Effusion, Hx Pneumonia, Other Respiratory Problems/ Disorders - SOB Denies: Hx Pulmonary Edema, Hx Pulmonary Embolism, Hx Sleep Apnea GI History: Reports: Hx Cirrhosis, Hx Gastroesophageal Reflux Disease, Hx Ulcer , Other GI Disorders - peptic ulcer Denies: Hx Crohn's Disease, Hx Hiatal Hernia, Hx Irritable Bowel, Hx Jaundice History: Reports: Hx Acute Renal Failure, Hx Chronic Renal Failure, Hx Dialysis, Hx Renal Disease - ON DIALYSIS, Other Problems/Disorders - end stage renal disease, on dialysis Denies: Hx Kidney Infection, Hx Kidney Stones Musculoskeletal History: Reports: Hx Arthritis, Hx Back Problems - chronic pain , Hx Orthopedic Injury Denies: Hx Rheumatoid Arthritis, Hx Bursitis, Hx Tendonitis, Other Musculoskeletal History Sensory History: Reports: Hx Contacts or Glasses, Hx Glaucoma, Hx Vision Problem Denies: Hx Cataracts, Hx Hearing Aid Opthamlomology History: Reports: Hx Contacts or Glasses, Hx Glaucoma, Hx Vision Problem Denies: Hx Cataracts Neurological History: Reports: Hx Headaches, Hx Migraine, Other Neuro Impairments/Disorders - depression Denies: Hx Dementia, Hx Seizures Psychiatric History: Reports: Hx Anxiety, Hx Depression Denies: Hx Eating Disorder, Hx Panic Disorder, Hx Suicide Attempt, Hx of Violent Episodes Against Others, Hx Substance Abuse - Cancer History Hx Chemotherapy: No Hx Radiation Therapy: No Hx Palliative Cancer Treatment: No - Surgical History Surgery Procedure, Year, and Place: HERNIA REPAIR 2012. APPENDECTOMY 2000. LEFT ARM AV FISTULA/CAD - REMOVED. CABG 1 vessel, mitral & tricuspid valve repair March 02, 2014 AT [facility] CONDITIONAL 5 UPTO 3T. POWER PORT. Mitral and tricuspid valve repair Hx Anesthesia Reactions: No - Immunization History Date of Tetanus Vaccine: 2014 Date of Influenza Vaccine: Fall 2015 Infectious Disease History: No Infectious Disease History: Reports: Hx Hepatitis, History Other Infectious Disease - Hepatitis C Denies: Hx Clostridium Difficile, Hx Human Immunodeficiency Virus (HIV), Hx of Known/Suspected MRSA, Hx Shingles, Hx Tuberculosis, Hx Known/Suspected VRE, Hx Known/Suspected VRSA, Traveled Outside the [place] in Last 30 Days - Family History Known Family History: Positive: Cardiac Disease, Hypertension, Other - CVA Family History: R & N/C - Social History Alcohol Use: None Alcohol Amount: former EtOH abuse Hx Substance Use: Yes Substance Use Type: Reports: Marijuana Substance Use Comment - Amount & Last Used: 01/10/2017 Hx Tobacco Use: Yes Smoking Status (MU): Former Smoker Type: Cigarettes Have You Smoked in the Last Year: No Review of Systems Constitutional: Negative Eyes: Negative ENT: Negative Positive: Chest Pain Positive: Shortness Of Breath Gastrointestinal: Negative Genitourinary: Negative Musculoskeletal: Negative Skin: Negative Neurological: Other - dizziness Psychological: Normal All Other Systems Reviewed And Are Negative: Yes Physical Exam Triage Information Reviewed: Yes Vital Signs On Initial Exam: Initial Vitals Temp Pulse Resp BP Pulse Ox 98.3 F 76 18 190/96 99 01/29/17 23:40 01/29/17 23:40 01/29/17 23:40 01/29/17 23:40 01/29/17 23:40 Vital Signs Reviewed: Yes Appearance: Positive: Well-Appearing, Pain Distress - mild diffuse cp Skin: Positive: Warm Head/Face: Positive: Normal Head/Face Inspection Eyes: Positive: KINGS Neck: Positive: Supple Respiratory/Lung Sounds: Positive: Clear to Auscultation, Breath Sounds Present Cardiovascular: Positive: RRR, Murmur Abdomen Description: Positive: Nontender, Soft Bowel Sounds: Positive: Present Musculoskeletal: Positive: Strength/ROM Intact Neurological: Positive: Sensory/Motor Intact, Alert, Oriented to Person Place, Time, Normal Gait Diagnostics - Vital Signs Vital Signs Temp Pulse Resp BP Pulse Ox 01/29/17 23:40 98.3 F 76 18 190/96 99 - Laboratory Lab Results: Lab Results 01/29/17 01/29/17 Range/Units 23:45 23:45 WBC 4.1 (3.5-10.8) 10^3/ul RBC 4.05 (4.0-5.4) 10^6/ul Hgb 11.1 L (14.0-18.0) g/dl Hct 35 L (42-52) % MCV 87 (80-94) fL MCH 28 (27-31) pg MCHC 32 (31-36) g/dl RDW 19 H (10.5-15) % Plt Count 154 (150-450) 10^3/ul MPV 8 (7.4-10.4) um3 Neut % (Auto) 56.6 (38-83) % Lymph % (Auto) 21.8 L (25-47) % [place] % (Auto) 14.3 H (1-9) % Eos % (Auto) 2.5 (0-6) % Baso % (Auto) 4.8 H (0-2) % Absolute Neuts (auto) 2.3 (1.5-7.7) 10^3/ul Absolute Lymphs (auto) 0.9 L (1.0-4.8) 10^3/ul Absolute Monos (auto) 0.6 (0-0.8) 10^3/ul Absolute Eos (auto) 0.1 (0-0.6) 10^3/ul Absolute Basos (auto) 0.2 (0-0.2) 10^3/ul Absolute Nucleated RBC 0.01 10^3/ul Nucleated RBC % 0.2 Sodium 135 (133-145) mmol/L Potassium 5.0 (3.5-5.0) mmol/L Chloride 93 L (101-111) mmol/L Carbon Dioxide 33 H (22-32) mmol/L Anion Gap 9 (2-11) mmol/L BUN 36 H (6-24) mg/dL Creatinine 9.16 H (0.67-1.17) mg/dL Est GFR ( Amer) 7.5 (>60) Est GFR (Non-Af Amer) 5.8 (>60) BUN/Creatinine Ratio 3.9 L (8-20) Glucose 83 (70-100) mg/dL Calcium 8.9 (8.6-10.3) mg/dL Phosphorus 5.0 (2.5-5.0) mg/dL Magnesium 2.5 (1.9-2.7) mg/dL Total Bilirubin 0.50 (0.2-1.0) mg/dL AST 49 H (13-39) U/L ALT 21 (7-52) U/L Alkaline Phosphatase 75 (34-104) U/L Troponin I 0.04 H* (<0.04) ng/mL Total Protein 8.6 (6.4-8.9) g/dL Albumin 4.3 (3.2-5.2) g/dL Globulin 4.3 H (2-4) g/dL Albumin/Globulin Ratio 1.0 (1-3) Result Diagrams: 01/29/17 23:45 01/29/17 23:45 Lab Statement: Any lab studies that have been ordered have been reviewed, and results considered in the medical decision making process. - Radiology CXR Xray Interpretation: Positive (See Comments) - cardiomegaly and chronic lung changes Radiology Interpretation Completed By: ED Physician - EKG 2343 Cardiac Rate: NL - 73 BPM EKG Interpretation: NSR @73 BPM, LVH. Chest Pain Course/Dx - Course Assessment/Plan: Pato Templeton is a 66 yo male presenting to [facility] with 9/10 CP upon waking up at 2340 today. In the ED he was given Catapres for his high BP ( 190/96) and morphine to control his pain. After expressing some nausea to a nurse, he was given zofran. His CXR suggests cardiomegaly and chronic lung changes. His EKG shows NSR with LVH. After review of his CXR, EKG, and lab work , notably his troponin of 0.04, he will be discharged home with hypertension and chest pain. - Diagnoses Provider Diagnoses: Chest pain, Hypertension Discharge - Discharge Plan Condition: Stable Disposition: HOME Patient Education Materials: Chest Pain (ED), Chronic Hypertension (ED) Referrals: Octaviano Pratt MD [Primary Care Provider] - 2 Days Additional Instructions: Please follow up with your primary care physician regarding your visit to the emergency department today. Return to the emergency department with any new or recurring symptoms. The documentation as recorded by the shruthi casey Timothy accurately reflects the service I personally performed and the decisions made by me, Luis Fernando Jimenez MD.
[2017-01-30] MEDS ORDERED: Ondansetron INJ* 2 MG/ML VIAL IV ONE (00:43)
[2017-01-30] MEDS ORDERED: Ondansetron INJ* 2 MG/ML VIAL ONE (00:43)
[2017-01-30] MEDS ORDERED: oxyCODONE/Acetamin 5/325 MG* TAB PO ONE (02:07)
[2017-01-30 02:16] VITALS: BP 117/100
--- NOTE | 2017-01-30 07:47 | RAD ---
HISTORY: Chest pain, shortness of breath COMPARISONS: January 12, 2017 VIEWS: 2: Frontal dual-energy and lateral views of the chest. FINDINGS: CARDIOMEDIASTINAL SILHOUETTE: The cardiomediastinal silhouette is stable. A prosthetic heart valve is noted. ALICIA: The alicia are normal. PLEURA: There are small bilateral pleural effusions LUNG PARENCHYMA: There is persistent confluent alveolar opacification of the right lower lung. There is patchy linear and alveolar opacification of the left lower lung ABDOMEN: The upper abdomen is clear. There is no subphrenic gas. BONES AND SOFT TISSUES: The patient is status post median sternotomy. OTHER: A left-sided AICD is noted. A right-sided internal jugular venous catheter is noted with the tip overlying the cavoatrial junction. IMPRESSION: 1. LINES AND TUBES ABOVE. 2. PERSISTENT RIGHT BASILAR CONSOLIDATION. 3. PERSISTENT LEFT BASILAR ATELECTASIS VERSUS CONSOLIDATION. 4. SMALL BILATERAL PLEURAL EFFUSIONS. 5. RECOMMEND FOLLOW-UP UNTIL RESOLUTION TO EXCLUDE UNDERLYING PULMONARY PARENCHYMAL PATHOLOGY.
== END 2017-01-30 02:27 | disposition home or self-care (01) ==
LOC: ED 23:34
DX: R07.9 Chest pain, unspecified (principal); I10 Essential (primary) hypertension; R42 Dizziness and giddiness; R06.02 Shortness of breath; Z87.891 Personal history of nicotine dependence
CPT/HCPCS: 36415; 71020; 80053; 83735; 84100; 84484; 85025; 93005; 96374; 96375; 99283; A9270-GY; J2270; J2405

== ENCOUNTER 2017-02-01 00:03 | Emergency (ER) | payer MEDICARE, MEDICAID ==
[2017-02-01] MEDS ORDERED: cloNIDine TAB* 0.1 MG PO ONE (00:14)
--- NOTE | 2017-02-01 00:25 | ED ---
Robbin Briones Michael, scribed for Luis Fernando Jimenez MD on 02/01/17 at 0011 . HPI Chest Pain - HPI Summary HPI Summary: A 66 y/o male was BIBA to the ED presenting with constant and sharp substernal CP that started today at 2200. The CP woke the pt up from sleeping, and he rates the pain as a 10 out of 10 on a pain assessment scale. He was given 2 tab of NTG REFERRAL CLERK. He also c/o SOB at rest. The pt was seen at the ED on 01/29 for the similar sx. He was dx with CP and hypertension. The PMHx is significant for ID, CAD, and CABG. - History of Current Complaint Hx Obtained From: Patient, EMS, Medical Records Onset/Duration: Started Hours Ago, Still Present Timing: Constant Initial Severity: Moderate Current Severity: Moderate Pain Intensity: 10 Pain Scale Used: 0-10 Numeric Chest Pain Location: Lower Sternal Chest Pain Radiates: No Character: Sharp/Stabbing Aggravating Factor(s): Nothing Alleviating Factor(s): Nothing Associated Signs and Symptoms: Positive: Chest Pain, Shortness of Breath - Additional Pertinent History Primary Care Physician: [id number] - Allergy/Home Medications Allergies/Adverse Reactions: Allergies Allergy/AdvReac Type Severity Reaction Status Date / Time Aspirin Allergy Unknown See Comment Verified 02/01/17 00:57 Hydromorphone [From Dilaudid] AdvReac Intermediate Nausea And Verified 02/01/17 00:57 Vomiting PMH/Surg Hx/FS Hx/Imm Hx Endocrine/Hematology History: Reports: Hx Blood Transfusions, Hx Sickle Cell Disease - Was told had sickle cell at one point but denies, Hx Anemia Denies: Hx Anticoagulant Therapy, Hx Bone Marrow Disease, Hx Diabetes, Hx Thyroid Disease Cardiovascular History: Reports: Hx Angina, Hx Congestive Heart Failure, Hx Coronary Artery Disease, Hx Hypertension, Hx Pacemaker/ICD, Hx Peripheral Vascular Disease, Hx Syncope, Other Cardiovascular Problems/Disorders - IDDM W/ DIALYSIS 3XPER WK Denies: Hx Cardiomegaly, Hx Hypercholesterolemia, Hx Myocardial Infarction, Hx Rheumatic Fever, Hx Valvular Heart Disease Respiratory History: Reports: Hx Asthma, Hx Chronic Obstructive Pulmonary Disease (COPD), Hx Pleural Effusion, Hx Pneumonia, Other Respiratory Problems/ Disorders - SOB Denies: Hx Pulmonary Edema, Hx Pulmonary Embolism, Hx Sleep Apnea GI History: Reports: Hx Cirrhosis, Hx Gastroesophageal Reflux Disease, Hx Ulcer , Other GI Disorders - peptic ulcer Denies: Hx Crohn's Disease, Hx Hiatal Hernia, Hx Irritable Bowel, Hx Jaundice History: Reports: Hx Acute Renal Failure, Hx Chronic Renal Failure, Hx Dialysis, Hx Renal Disease - ON DIALYSIS, Other Problems/Disorders - end stage renal disease, on dialysis Denies: Hx Kidney Infection, Hx Kidney Stones Musculoskeletal History: Reports: Hx Arthritis, Hx Back Problems - chronic pain , Hx Orthopedic Injury Denies: Hx Rheumatoid Arthritis, Hx Bursitis, Hx Tendonitis, Other Musculoskeletal History Sensory History: Reports: Hx Contacts or Glasses, Hx Glaucoma, Hx Vision Problem Denies: Hx Cataracts, Hx Hearing Aid Opthamlomology History: Reports: Hx Contacts or Glasses, Hx Glaucoma, Hx Vision Problem Denies: Hx Cataracts Neurological History: Reports: Hx Headaches, Hx Migraine, Other Neuro Impairments/Disorders - depression Denies: Hx Dementia, Hx Seizures Psychiatric History: Reports: Hx Anxiety, Hx Depression Denies: Hx Eating Disorder, Hx Panic Disorder, Hx Suicide Attempt, Hx of Violent Episodes Against Others, Hx Substance Abuse - Cancer History Hx Chemotherapy: No Hx Radiation Therapy: No Hx Palliative Cancer Treatment: No - Surgical History Surgery Procedure, Year, and Place: HERNIA REPAIR 2012. APPENDECTOMY 2000. LEFT ARM AV FISTULA/CAD - REMOVED. CABG 1 vessel, mitral & tricuspid valve repair March 02, 2014 AT [facility] CONDITIONAL 5 UPTO 3T. POWER PORT. Mitral and tricuspid valve repair Hx Anesthesia Reactions: No - Immunization History Date of Tetanus Vaccine: 2014 Date of Influenza Vaccine: Fall 2015 Infectious Disease History: Reports: Hx Hepatitis, History Other Infectious Disease - Hepatitis C Denies: Hx Clostridium Difficile, Hx Human Immunodeficiency Virus (HIV), Hx of Known/Suspected MRSA, Hx Shingles, Hx Tuberculosis, Hx Known/Suspected VRE, Hx Known/Suspected VRSA - Family History Known Family History: Positive: Cardiac Disease, Hypertension, Other - CVA - Social History Occupation: Disabled Lives: Alone Alcohol Use: None Alcohol Amount: former EtOH abuse Hx Substance Use: Yes Substance Use Type: Reports: Marijuana Substance Use Comment - Amount & Last Used: 01/10/2017 Hx Tobacco Use: Yes Smoking Status (MU): Former Smoker Type: Cigarettes Have You Smoked in the Last Year: No Review of Systems Positive: Chest Pain Positive: Shortness Of Breath All Other Systems Reviewed And Are Negative: Yes Physical Exam Triage Information Reviewed: Yes Vital Signs On Initial Exam: Initial Vitals Temp Pulse Resp BP Pulse Ox 98.5 F 72 19 150/97 100 02/01/17 00:08 02/01/17 00:08 02/01/17 00:08 02/01/17 00:08 02/01/17 00:08 Vital Signs Reviewed: Yes Appearance: Positive: Well-Appearing, Pain Distress - mild discomfort Skin: Positive: Warm Head/Face: Positive: Normal Head/Face Inspection Eyes: Positive: KINGS ENT: Positive: Hearing grossly normal Neck: Positive: Supple Respiratory/Lung Sounds: Positive: Clear to Auscultation, Breath Sounds Present Cardiovascular: Positive: RRR Abdomen Description: Positive: Nontender, Soft Bowel Sounds: Positive: Present Musculoskeletal: Positive: Strength/ROM Intact Diagnostics - Vital Signs Vital Signs Temp Pulse Resp BP Pulse Ox 02/01/17 00:08 98.5 F 72 19 150/97 100 - Laboratory Result Diagrams: 02/01/17 00:15 02/01/17 00:15 Lab Statement: Any lab studies that have been ordered have been reviewed, and results considered in the medical decision making process. - Radiology CXR Xray Interpretation: No Acute Changes - cardiomegaly. no acute changes Radiology Interpretation Completed By: ED Physician - EKG EK EKG Rhythm: Sinus Rhythm - 72 EKG Interpretation: LVH w/ secondary repolarization abnormality Re-Evaluation - Re-Evaluation First Eval Change: Improved Chest Pain Course/Dx - Diagnoses Provider Diagnoses: Chest pain Discharge - Discharge Plan Condition: Stable Disposition: HOME Patient Education Materials: Chest Pain (ED) Referrals: Octaviano Pratt MD [Primary Care Provider] - Additional Instructions: Please follow up with Dr. Pratt within the next 2-3 days. The documentation as recorded by the Robbin casey Michael accurately reflects the service I personally performed and the decisions made by me, Luis Fernando Jimenez MD.
[2017-02-01 00:38] LABS: Hematocrit 32 % (42-52); Hemoglobin 10.3 g/dl (14.0-18.0); Mean Corpuscular HGB Conc 32 g/dl (31-36); Mean Corpuscular Hemoglobin 28 pg (27-31); Mean Corpuscular Volume 86 fL (80-94); Mean Platelet Volume 8 um3 (7.4-10.4); Red Blood Count 3.74 10^6/ul (4.0-5.4); Red Cell Distribution Width 19 % (10.5-15)
[2017-02-01 00:42] LABS: Albumin 4.1 g/dL (3.2-5.2); BUN/Creatinine Ratio 4.2 (8-20); Calcium 8.6 mg/dL (8.6-10.3); EGFR African American 7.4 (>60); EGFR Non-African American 5.8 (>60); Globulin 3.9 g/dL (2-4); Potassium 4.3 mmol/L (3.5-5.0); Total Bilirubin 0.5 mg/dL (0.2-1.0)
[2017-02-01 00:46] LABS: Troponin I 0.04 ng/mL (<0.04)
[2017-02-01] MEDS ORDERED: Morphine INJ* 4 MG/ML 1 ML SYRINGE IV ONE (01:29)
[2017-02-01] MEDS ORDERED: Ondansetron INJ* 2 MG/ML VIAL ONE (01:38)
[2017-02-01] MEDS ORDERED: Ondansetron INJ* 2 MG/ML VIAL IV ONE (01:45)
[2017-02-01 04:13] VITALS: BP 165/79
--- NOTE | 2017-02-01 07:39 | RAD ---
HISTORY: Chest pain COMPARISONS: January 30, 2017 VIEWS: 2: Frontal dual-energy and lateral views of the chest. FINDINGS: CARDIOMEDIASTINAL SILHOUETTE: The cardiomediastinal silhouette is normal. ALICIA: The alicia are normal. PLEURA: There are stable small bilateral pleural effusions. LUNG PARENCHYMA: There is persistent alveolar opacification of the right lower lung and to lesser extent of the left lower lung ABDOMEN: The upper abdomen is clear. There is no subphrenic gas. BONES AND SOFT TISSUES: The patient is status post median sternotomy. OTHER: There is left-sided ICD. There is a right-sided central venous catheter. IMPRESSION: 1. LINES AND TUBES ABOVE. 2. STABLE SMALL BILATERAL EFFUSIONS WITH STABLE BIBASILAR AIRSPACE DISEASE
== END 2017-02-01 04:25 | disposition home or self-care (01) ==
LOC: ED 00:03
DX: R07.9 Chest pain, unspecified (principal); R06.02 Shortness of breath; Z87.891 Personal history of nicotine dependence
CPT/HCPCS: 36415; 71020; 80053; 82550; 83605; 84484; 85025; 93005; 96374; 96375; 99283; A9270-GY; J2270; J2405

== ENCOUNTER 2017-02-06 09:49 | Inpatient (IN) | payer MEDICARE, MEDICAID ==
[2017-02-06] MEDS ORDERED: Ondansetron INJ* 2 MG/ML VIAL IV ONE (09:55)
[2017-02-06 10:02] LABS: Hematocrit 39 % (42-52); Hemoglobin 12.3 g/dl (14.0-18.0); Mean Corpuscular HGB Conc 32 g/dl (31-36); Mean Corpuscular Hemoglobin 27 pg (27-31); Mean Corpuscular Volume 86 fL (80-94); Mean Platelet Volume 8 um3 (7.4-10.4); Red Blood Count 4.53 10^6/ul (4.0-5.4); Red Cell Distribution Width 19 % (10.5-15); White Blood Count 5.2 10^3/ul (3.5-10.8)
[2017-02-06] MEDS: Morphine INJ* 4 MG/ML 1 ML SYRINGE IV ONE ×3 (10:12→10:52)
[2017-02-06 10:15] LABS: Albumin 4.5 g/dL (3.2-5.2); BUN/Creatinine Ratio 3.2 (8-20); Calcium 9.5 mg/dL (8.6-10.3); EGFR African American 16.4 (>60); EGFR Non-African American 12.7 (>60); Globulin 4.4 g/dL (2-4); Potassium 3.5 mmol/L (3.5-5.0); Total Bilirubin 0.6 mg/dL (0.2-1.0); Total Protein 8.9 g/dL (6.4-8.9)
[2017-02-06 10:22] LABS: Troponin I 0.04 ng/mL (<0.04)
--- NOTE | 2017-02-06 10:27 | RAD ---
HISTORY: Chest pain COMPARISONS: February 03, 2017 VIEWS:1: Single frontal portable view of the chest at 5:55 AM FINDINGS: LINES AND TUBES: There is a central venous catheter with the tip overlying the superior vena cava. There is left-sided ICD. A prosthetic heart valves are noted.. CARDIOMEDIASTINAL SILHOUETTE: The cardiomediastinal silhouette is normal for portable technique. PLEURA: There is a small left pleural effusion. LUNG PARENCHYMA: There is linear opacification of left lung base. There is improved aeration of the right lung base ABDOMEN: The upper abdomen is clear. There is no subphrenic gas. BONES AND SOFT TISSUES: The patient is status post median sternotomy. IMPRESSION: SMALL LEFT PLEURAL EFFUSION WITH LINEAR ATELECTASIS VERSUS PLEURAL PARENCHYMAL SCARRING OF LEFT LUNG BASE.
[2017-02-06] MEDS ORDERED: Iodixanol* (CONTRAST) 320 MG/ML 100 ML SDV IV ONE (10:57)
--- NOTE | 2017-02-06 11:49 | RAD ---
HISTORY: Abdominal distention, chest pain, abdominal pain COMPARISONS: CT chest dated November 02, 2015, CT dated posterior February 04, 2017 TECHNIQUE: Multiple contiguous axial CT scans were obtained of the chest, abdomen, and pelvis after the administration of intravenous contrast. Coronal and sagittal multiplanar reformations are submitted for review.. Oral contrast was not administered. Delayed images were obtained through the abdomen and pelvis. FINDINGS: CHEST NECK AND THYROID: There is a filling defect within the left internal jugular vein CHEST WALL: There are prominent right axillary lymph node measuring up to 1 cm in size. HEART AND PERICARDIUM: Prosthetic mitral and tricuspid valves are noted. AORTA AND PULMONARY VASCULATURE: There is enlargement of the pulmonary artery respectively aorta. MEDIASTINUM: There is no mediastinal lymphadenopathy by size criteria. ALICIA: There is no hilar lymphadenopathy by size criteria. AIRWAY AND ESOPHAGUS: The airway is unremarkable, without endobronchial filling defect. The esophagus is grossly normal. LUNG PARENCHYMA: There is linear and subsegmental atelectasis of left lung base. PLEURA: There is elevation of left hemidiaphragm BONES AND SOFT TISSUES: The patient is status post median sternotomy. ABDOMEN/PELVIS: LIVER: The liver is normal in shape, size, contour, and attenuation. BILE DUCTS: There is no intrahepatic or extrahepatic biliary dilatation. GALLBLADDER: The gallbladder is normal, without pericholecystic inflammatory change. PANCREAS: The pancreas is normal, without mass or ductal dilatation. SPLEEN: Normal in size and appearance. UPPER GI TRACT: Evaluation of the gastrointestinal tract is limited by incomplete gastric distention. The upper GI tract is unremarkable. SMALL BOWEL \T\ MESENTERY: There is diffuse distention and mild dilatation of proximal small bowel loops with decompressed loops distally. COLON: There is posttreatment change in the region of the cecum. There is large amount of stool within the colon and rectum ADRENALS: Normal bilaterally. KIDNEYS: The kidneys are atrophic. BLADDER: The bladder is collapsed and is not well evaluated. PELVIC ORGANS: The prostate gland is normal. The seminal vesicles are symmetric. AORTA: There is calcific atherosclerotic disease of the abdominal aorta and its branches, without aneurysmal dilatation IVC: Unremarkable LYMPH NODES: There is no lymphadenopathy by size criteria. ABDOMINAL WALL: There is no evidence for abdominal wall hernia. BONES: There are mild diffuse degenerative changes. OTHER: None IMPRESSION: 1. FILLING DEFECT WITHIN THE LEFT INTERNAL JUGULAR VEIN CONCERNING FOR LEFT IJ THROMBUS. 2. BORDERLINE ENLARGED AXILLARY LYMPH NODES. 3. ENLARGEMENT OF THE PULMONARY ARTERY WITH TO THE AORTA SUGGESTIVE ARTERIAL HYPERTENSION. 4. MILD DILATATION OF SMALL BOWEL LOOPS PROXIMALLY WITH DECOMPRESSED BOWEL DISTALLY SUGGESTIVE OF SMALL BOWEL OBSTRUCTION. 5. ATHEROSCLEROSIS.
[2017-02-06] MEDS ORDERED: Morphine INJ* 4 MG/ML 1 ML SYRINGE IV ONE (14:44)
--- NOTE | 2017-02-06 15:22 | RAD ---
INDICATION: CT chest shows left IJ thrombus COMPARISON: CT February 06, 2017 TECHNIQUE: Duplex interrogation of both jugular veins were performed. FINDINGS: There is occlusive thrombus in the right jugular vein which is imaged cephalad to the indwelling catheter. On the left the thrombus is not confirmed sonographically but the CT shows a filling defect centrally consistent with nonocclusive thrombus. IMPRESSION: JUGULAR VENOUS THROMBOSIS DESCRIBED.
[2017-02-06] MEDS ORDERED: Albuterol HFA INHALER* 8 gm MDI INH PRN (16:16)
[2017-02-06] MEDS ORDERED: Zolpidem TAB* 10 MG PO PRN (16:16)
[2017-02-06] MEDS ORDERED: LORazepam TAB(*) 1 MG PO PRN (16:16)
[2017-02-06] MEDS ORDERED: Nitroglycerin TAB 0.4 MG* 0.4 MG TAB SL PRN (16:16)
[2017-02-06] MEDS ORDERED: Acetaminophen TAB* 325 MG PO PRN (16:16)
[2017-02-06] MEDS ORDERED: Labetalol IV* 5 MG/ML 20 ML VIAL IV PUSH PRN (16:42)
[2017-02-06] MEDS ORDERED: Warfarin TAB(*) 5 MG PO ONE (17:00)
[2017-02-06] MEDS: Heparin DRIP 25,000 UNITS(*) 25,000 UNITS/500 ML BAG IV SCH (17:56)
[2017-02-06] MEDS: oxyCODONE TAB* 5 MG TAB PO PRN ×2 (18:06→22:33)
[2017-02-06] MEDS: Carvedilol TAB* 25 MG PO SCH (21:47)
[2017-02-06] MEDS: Gabapentin CAP(*) 300 MG PO SCH (21:48)
[2017-02-06] MEDS: hydrALAZINE TAB* 25 MG PO SCH (21:50)
[2017-02-06] MEDS: Omeprazole CAP* 20 MG PO SCH (21:51)
[2017-02-06] MEDS: Pancrelipase CAP* 5,000 UNITS CAP PO SCH (21:52)
[2017-02-06] MEDS: traZODone TAB* 50 MG TAB PO SCH (21:53)
[2017-02-06] MEDS: diPHENhydraMINE PO* 25 MG PO PRN (22:34)
--- NOTE | 2017-02-07 00:28 | HP ---
CC: Octaviano Pratt MD HISTORY AND PHYSICAL: DATE OF ADMISSION: 02/06/17 PRIMARY CARE PHYSICIAN: Octaviano Pratt MD CHIEF COMPLAINT: Chest pain and abdominal pain. HISTORY OF PRESENT ILLNESS: Mr. Templeton is a 66-year-old man with past medical history that is comple x including AFib; end-stage renal disease, on dialysis; CAD, status post CABG; peripheral vascular d isease; GERD; hepatitis C; anemia; chronic pain; cardiomyopathy, status post ICD placement who prese nts to the hospital after he developed worsening chest and abdominal pain at dialysis. The patient is a frequent visitor to the emergency department for these similar symptoms. He declined an ambula nce at dialysis and instead decided to try to walk across the hospital to the emergency room. He st ates his pain worsened and CAT team was called and he was brought to the ER on a stretcher. He curr ently seems comfortable, although still is complaining of pain. His EKG is within normal limits. H is troponins are at their baseline. The patient underwent CT abdomen and pelvis in the emergency de partment and there was some concern for possible bowel obstruction; however, the patient is declinin g any nausea, vomiting, and has been moving his bowels normally. However, the CT did indicate a pos sible filling defect in the left internal jugular vein concerning for a possible thrombus. After th is image, I ordered a venous Doppler study, which was done and the left IJ could not be confirmed so nographically; however, there was noted noted to be an occlusive thrombus in the right jugular vein. Due to these findings, the patient will be admitted to the hospital. PAST MEDICAL HISTORY: AFib; end-stage renal disease, on dialysis; CAD, status post CABG; status pos t mitral valve and tricuspid repair; peripheral vascular disease; GERD; hepatitis C; anemia; chronic pain; cardiomyopathy, status post ICD; status post appendectomy. HOME MEDICATIONS: 1. Hydralazine 50 mg by mouth 3 times daily. 2. Imdur 60 mg by mouth daily. 3. Trazodone 100 mg p.o. at bedtime. 4. Zolpidem 10 mg by mouth at bedtime as needed for insomnia. 5. Kayexalate 15 g by mouth daily as needed as directed by dialysis. 6. Simvastatin 10 mg by mouth daily. 7. Ativan 0.5 to 1 mg by mouth 2 times daily as needed for anxiety. 8. Nephro-Dameon 1 tab by mouth daily. 9. Sucroferric oxyhydroxide 2000 mg by mouth with meals. 10. Oxycodone 15 mg by mouth every 4 hours as needed for pain. 11. Coreg 25 mg by mouth 2 times daily. 12. Benadryl 25 mg by mouth daily as needed for allergies. 13. Tylenol 650 mg by mouth every 8 hours as needed for pain. 14. Lisinopril 10 mg by mouth daily. 15. Lexapro 10 mg by mouth daily. 16. Amlodipine 10 mg by mouth daily. 17. Pancrelipase 00775 units by mouth 4 times daily with meals. 18. Colace 100 mg by mouth daily. 19. Cinacalcet 30 mg by mouth daily. 20. Albuterol 2 puffs inhaled every 4 hours as needed for shortness of breath or wheezing. 21. Omeprazole 40 mg by mouth 2 times daily. 22. Nitroglycerin 0.4 mg sublingual every 5 minutes as needed for chest pain. 23. Gabapentin 600 mg by mouth 3 times daily. ALLERGIES: The patient reports allergies to ASPIRIN and DILAUDID. FAMILY HISTORY: Significant for mother with CAD and stroke. SOCIAL HISTORY: The patient is a former smoker. No alcohol abuse. Occasional marijuana smoker. S urrogate decision maker is his brother, Joe Templeton, phone number is [phone]. REVIEW OF SYSTEMS: 12-point review of systems is negative except for that is noted in the HPI. PHYSICAL EXAMINATION GENERAL: The patient is a middle-aged, -[place] man, sitting in bed, in no apparent distres s. VITAL SIGNS: On admission, temperature 97.5, heart rate of 97, respiratory rate of 21, O2 saturatio n 96% on room air, blood pressure 217/129. HEENT: Moist mucous membranes. No cervical adenopathy. Anicteric sclerae. LUNGS: Clear to auscultation bilaterally. No wheezes, rales, or rhonchi. CARDIOVASCULAR: Tachycardia. Regular rhythm. No murmurs, gallops, or rub. ABDOMEN: Soft, nontender, nondistended. Bowel sounds are positive. EXTREMITIES: No lower extremity edema. Right upper extremity is significantly more swollen than th e left with some superficial venous distention. LABORATORY DATA AND DIAGNOSTIC STUDIES: White blood cell count 5.2, hematocrit 39, platelets of 12 7. Sodium of 134, potassium 3.5, chloride of 91, carbon dioxide of 34, BUN of 15, creatinine of 4.6 6, glucose of 88. ALT is within normal limits. Troponin is 0.04 x2. Chest x-ray, personally review ed, show a small left pleural effusion, linear atelectasis versus pleural parenchymal scarring of th e left lung base. CT chest, abdomen, and pelvis, filling defect in the left internal jugular vein c oncerning for left IJ thrombus, borderline enlarged axillary lymph nodes and enlargement of the pulm onary artery to the aorta suggestive of arterial hypertension, mild dilatation of small bowel loops proximally with decompressed bowel distally suggestive of small bowel obstruction, atherosclerosis. Venous Doppler study, impression: There is occlusive thrombus of the right jugular vein, which is imaged cephalad to the indwelling catheter. On the left, the thrombus is not confirmed sonographica lly, but CT shows filling defect centrally consistent with nonocclusive thrombus. ASSESSMENT AND PLAN: Internal jugular vein thrombosis possibly bilaterally, but definitely on the r ight in 66-year-old man with a past medical history of atrial fibrillation; end-stage renal disease, on hemodialysis; coronary artery disease, status post CABG; chronic pain; cardiomyopathy. 1. Internal jugular vein thrombosis. We will start the patient on a heparin drip and also start th e patient on Coumadin tonight. He will need to stay in the hospital until his INR is therapeutic du e to location of the thrombus, which is likely due to his dialysis catheter and his renal dialysis. Coumadin is the only medication that we can use to treat this. 2. Chest and abdominal pain. This pain is chronic for the patient. We did not feel that it needs any further workup at this time. We will continue his home pain medications. 3. Elevated blood pressure. We will resume the patient's home medications for now. We will also w rite for p.r.n. labetalol. The patient needs additional medication changes. This can be done over the next days. 4. End-stage renal disease. We will continue previous dialysis session on Thursday, Thursday, y. Continue his home renal medications as well. 5. DVT prophylaxis, on heparin/Coumadin. TIME SPENT: Total time spent on this admission 45 minutes with over half the time spent face-to-fac e with the patient counseling and coordinating care. [id number]/[facility] #: [id number]
[2017-02-07 02:54] LABS: Hematocrit 35 % (42-52); Hemoglobin 10.9 g/dl (14.0-18.0); Mean Corpuscular HGB Conc 32 g/dl (31-36); Mean Corpuscular Hemoglobin 27 pg (27-31); Mean Corpuscular Volume 86 fL (80-94); Mean Platelet Volume 8 um3 (7.4-10.4); Red Cell Distribution Width 19 % (10.5-15); White Blood Count 3.7 10^3/ul (3.5-10.8)
[2017-02-07 02:55] LABS: Add Diff/Slide Review? Slide Review Added; Comments Flag Yes
--- NOTE | 2017-02-07 08:02 | PN ---
Subjective Date of Service: 02/07/17 Interval History: Patient seen this morning. Reports abdominal pain is improved. Good PO intake, moving bowels. No arm pain but still swollen. Neck is itchy, thinks he has ring worm. Family History: Unchanged from Admission Social History: Unchanged from Admission Past Medical History: Unchanged from Admission Objective Active Medications: Acetaminophen (Tylenol Tab*) 650 mg PO Q8HR PRN Albuterol (Ventolin Hfa Inhaler*) 2 puff INH Q4H PRN Amlodipine Besylate (Norvasc Tab*) 10 mg PO DAILY SO Atorvastatin Calcium (Lipitor*) 5 mg PO DAILY SO Carvedilol (Coreg Tab*) 25 mg PO BID WITH MEALS SO Cinacalcet (Sensipar Tab*) 30 mg PO DAILY SO Citalopram Hydrobromide (Celexa Tab*) 20 mg PO DAILY SO Diphenhydramine HCl (Benadryl Po*) 50 mg PO DAILY PRN Diphenhydramine HCl (Benadryl Po*) 25 mg PO DAILY PRN Docusate Sodium (Colace Cap*) 100 mg PO DAILY SO Folic Acid (Folvite Tab*) 0.5 mg PO DAILY SO Gabapentin (Neurontin Cap(*)) 600 mg PO TID SO Heparin Sodium (Porcine) (Heparin Vial(*)) 0 units IV .PER PROTOCOL SO Hydralazine HCl (Apresoline Tab*) 50 mg PO TID SO Heparin Sodium/Dextrose (Heparin Drip 25,000 Units(*)) 25,000 units in 500 mls @ 0 mls/hr IV .NO INITIAL BOLUS SO; As Directed Isosorbide Mononitrate (Imdur Er Tab*) 60 mg PO DAILY SO Labetalol HCl (Trandate Iv*) 10 mg IV PUSH Q6H PRN Lisinopril (Prinivil Tab*) 10 mg PO DAILY SO Lorazepam (Ativan Tab(*)) 1 mg PO BID PRN Morphine Sulfate (Morphine Inj (Syringe)*) 4 mg IV Q4H PRN Nitroglycerin (Nitroglycerin Tab 0.4 Mg*) 0.4 mg SL Q5M PRN Omeprazole (Prilosec Cap*) 40 mg PO BID SO Oxycodone HCl (Roxycodone Tab*) 15 mg PO Q4H PRN Pancrelipase (Zenpep Delayed Cap*) 10,000 units PO QID ACHS SO Pharmacy Profile Note (Coumadin Per Pharmacy*) 1 note FOLLOW UP .PER PHARMACY PROTOC SO Trazodone HCl (Desyrel Tab*) 100 mg PO BEDTIME SO Vitamin B Complex/Vitamin E (Complex B-100*) 1 tab PO DAILY [facility] Zolpidem Tartrate (Ambien Tab*) 10 mg PO BEDTIME PRN Vital Signs 02/06/17 02/06/17 02/06/17 16:00 17:00 17:07 Temperature 97.8 F Pulse Rate 86 Respiratory 18 20 Rate Blood Pressure 195/118 (mmHg) O2 Sat by Pulse 97 98 Oximetry 02/06/17 02/06/17 02/06/17 17:56 18:06 20:00 Temperature 97.6 F Pulse Rate 98 Respiratory 16 20 18 Rate Blood Pressure 214/140 (mmHg) O2 Sat by Pulse 92 Oximetry 02/07/17 04:31 Temperature 98.0 F Pulse Rate 65 Respiratory 16 Rate Blood Pressure 140/79 (mmHg) O2 Sat by Pulse 100 Oximetry Oxygen Devices in Use Now: Nasal Cannula Appearance: Middle-aged, AAM, laying in bed in NAD Eyes: No Scleral Icterus Ears/Nose/Mouth/Throat: Mucous Membranes Moist Neck: - - Circular, plaque-like lesions on B/L neck Respiratory: Symmetrical Chest Expansion and Respiratory Effort, Clear to Auscultation Cardiovascular: NL Sounds; No Murmurs; No JVD, RRR Abdominal: - - Soft, mild TTP in periumbilical area, BS+, no rebound/guarding Lymphatic: No Cervical Adenopathy Extremities: - - RUE swelling Neurological: Alert and Oriented x 3 Result Diagrams: 02/07/17 02:42 02/07/17 02:42 Microbiology and Other Data: Microbiology 02/06/17 15:55 Nasal Screen MRSA (PCR)(PER) - Final Nasal Mrsa Positive Assess/Plan/Problems-Billing Assessment: IJ vein thrombosis (likely catheter related) in a 66 yo M with hx of ESRD on HD , AFib, CAD s/p CABG, cardiomyopathy, chronic pain, s/p MV repair and TV repair - Patient Problems (1) Internal jugular vein thrombosis Current Visit: Yes Comment: Likely catheter related. Continue heparin gtt and coumadin until INR therapeutic (2) Hypertension Current Visit: No Comment: BPs improved after one dose of IV labetalol and resuming home medicatons. Continue Hydralazine, Imdur, Coreg, Lisinopril and Amlodipine (3) ESRF (end stage renal failure) Current Visit: No Comment: Last HD 02/06, did not complete fully. Will recheck BMP tomorrow. Plan for HD on 02/09 (4) DVT prophylaxis Current Visit: No Comment: Heparin
[2017-02-07] MEDS: Carvedilol TAB* 25 MG PO SCH ×2 (08:55→16:59)
[2017-02-07] MEDS: Pancrelipase CAP* 5,000 UNITS CAP PO SCH ×4 (08:55→21:32)
[2017-02-07] MEDS: amLODIPine TAB* 5 MG PO SCH (08:55)
[2017-02-07] MEDS: Atorvastatin* 10 MG TAB PO SCH (08:55)
[2017-02-07] MEDS: hydrALAZINE TAB* 25 MG PO SCH ×3 (08:56→21:30)
[2017-02-07] MEDS: Folic Acid TAB* 1 MG PO SCH (08:56)
[2017-02-07] MEDS: Gabapentin CAP(*) 300 MG PO SCH ×3 (08:56→21:29)
[2017-02-07] MEDS: Docusate CAP* 100 MG PO SCH (08:56)
[2017-02-07] MEDS: Citalopram TAB* 20 MG PO SCH (08:56)
[2017-02-07] MEDS: Isosorbide Mononitrate ER TAB* 60 MG PO SCH (08:56)
[2017-02-07] MEDS: Lisinopril TAB* 10 MG PO SCH (08:56)
[2017-02-07] MEDS: Vitamin B Complex TAB PO SCH (08:57)
[2017-02-07] MEDS: oxyCODONE TAB* 5 MG TAB PO PRN ×3 (08:57→22:50)
[2017-02-07] MEDS: Omeprazole CAP* 20 MG PO SCH ×2 (08:57→21:31)
[2017-02-07] MEDS: diPHENhydraMINE PO* 25 MG PO PRN ×2 (08:57→22:48)
[2017-02-07] MEDS ORDERED: NON FORMULARY MED* (B-Complex W/ C & Folic Acid [Nephro-Vite 0.8 Mg] 1 TAB) PO SCH (09:00)
[2017-02-07] MEDS ORDERED: Levofloxacin TAB* 250 MG PO SCH (09:00)
[2017-02-07] MEDS: Cinacalcet TAB* 30 MG PO SCH (09:51)
[2017-02-07] MEDS: Clotrimazole 1% CREAM* 45 GM TOPICAL SCH ×2 (09:51→21:51)
[2017-02-07 13:10] LABS: Hematocrit 38 % (42-52); Mean Corpuscular HGB Conc 32 g/dl (31-36); Mean Corpuscular Hemoglobin 28 pg (27-31); Mean Corpuscular Volume 86 fL (80-94); Mean Platelet Volume 8 um3 (7.4-10.4); Red Blood Count 4.34 10^6/ul (4.0-5.4); Red Cell Distribution Width 18 % (10.5-15); White Blood Count 3.9 10^3/ul (3.5-10.8)
[2017-02-07] MEDS: Heparin VIAL(*) 5000 UNITS/ML VIAL (FIVE THOUSAND) IV SCH (13:54)
[2017-02-07] MEDS: Heparin DRIP 25,000 UNITS(*) 25,000 UNITS/500 ML BAG IV SCH (16:02)
[2017-02-07] MEDS ORDERED: Warfarin TAB(*) 5 MG PO ONE (17:00)
[2017-02-07] MEDS: traZODone TAB* 50 MG TAB PO SCH (21:33)
--- NOTE | 2017-02-08 08:20 | PN ---
Subjective Date of Service: 02/08/17 Interval History: Patient seen this morning. Says he is feeling "a lot better" in terms of chronic abdominal pain. Still with R arm swelling. Improvement in itchiness of neck lesions. Has been eating, drinking, moving his bowels. Family History: Unchanged from Admission Social History: Unchanged from Admission Past Medical History: Unchanged from Admission Objective Active Medications: Acetaminophen (Tylenol Tab*) 650 mg PO Q8HR PRN Albuterol (Ventolin Hfa Inhaler*) 2 puff INH Q4H PRN Amlodipine Besylate (Norvasc Tab*) 10 mg PO DAILY SO Atorvastatin Calcium (Lipitor*) 5 mg PO DAILY SO Carvedilol (Coreg Tab*) 25 mg PO BID WITH MEALS [facility] Cinacalcet (Sensipar Tab*) 30 mg PO DAILY SO Citalopram Hydrobromide (Celexa Tab*) 20 mg PO DAILY SO Clotrimazole (Clotrimazole 1%*) 1 applic TOPICAL BID SO Diphenhydramine HCl (Benadryl Po*) 50 mg PO DAILY PRN Diphenhydramine HCl (Benadryl Po*) 25 mg PO DAILY PRN Docusate Sodium (Colace Cap*) 100 mg PO DAILY SO Folic Acid (Folvite Tab*) 0.5 mg PO DAILY SO Gabapentin (Neurontin Cap(*)) 600 mg PO TID SO Heparin Sodium (Porcine) (Heparin Vial(*)) 0 units IV .PER PROTOCOL SO Hydralazine HCl (Apresoline Tab*) 50 mg PO TID SO Heparin Sodium/Dextrose (Heparin Drip 25,000 Units(*)) 25,000 units in 500 mls @ 0 mls/hr IV .NO INITIAL BOLUS SO; As Directed Isosorbide Mononitrate (Imdur Er Tab*) 60 mg PO DAILY SO Labetalol HCl (Trandate Iv*) 10 mg IV PUSH Q6H PRN Lisinopril (Prinivil Tab*) 10 mg PO DAILY SO Lorazepam (Ativan Tab(*)) 1 mg PO BID PRN Morphine Sulfate (Morphine Inj (Syringe)*) 4 mg IV Q4H PRN Nitroglycerin (Nitroglycerin Tab 0.4 Mg*) 0.4 mg SL Q5M PRN Omeprazole (Prilosec Cap*) 40 mg PO BID SO Oxycodone HCl (Roxycodone Tab*) 15 mg PO Q4H PRN Pancrelipase (Zenpep Delayed Cap*) 10,000 units PO QID ACHS [facility] Pharmacy Profile Note (Coumadin Per Pharmacy*) 1 note FOLLOW UP .PER PHARMACY PROTOC [facility] Trazodone HCl (Desyrel Tab*) 100 mg PO BEDTIME [facility] Vitamin B Complex/Vitamin E (Complex B-100*) 1 tab PO DAILY [facility] Zolpidem Tartrate (Ambien Tab*) 10 mg PO BEDTIME PRN Vital Signs 02/07/17 02/07/17 02/07/17 08:17 08:56 08:57 Temperature 97.6 F Pulse Rate 69 Respiratory 16 18 18 Rate Blood Pressure 150/90 (mmHg) O2 Sat by Pulse 100 Oximetry 02/07/17 02/07/17 02/07/17 10:56 10:57 13:54 Temperature Pulse Rate Respiratory 16 16 18 Rate Blood Pressure (mmHg) O2 Sat by Pulse Oximetry 02/07/17 02/07/17 02/07/17 15:27 15:54 17:02 Temperature 97.4 F Pulse Rate 65 Respiratory 18 18 18 Rate Blood Pressure 125/81 (mmHg) O2 Sat by Pulse 93 Oximetry 02/07/17 02/07/17 02/07/17 19:02 19:59 20:00 Temperature 97.3 F Pulse Rate 66 Respiratory 16 16 16 Rate Blood Pressure 118/72 (mmHg) O2 Sat by Pulse 99 Oximetry 02/07/17 02/07/17 02/07/17 21:29 22:48 22:50 Temperature Pulse Rate Respiratory 16 16 16 Rate Blood Pressure (mmHg) O2 Sat by Pulse Oximetry 02/07/17 02/07/17 02/08/17 23:29 23:54 00:48 Temperature 97.7 F Pulse Rate 63 Respiratory 16 16 16 Rate Blood Pressure 134/71 (mmHg) O2 Sat by Pulse 94 Oximetry 02/08/17 00:50 Temperature Pulse Rate Respiratory 16 Rate Blood Pressure (mmHg) O2 Sat by Pulse Oximetry Oxygen Devices in Use Now: None Appearance: Middle-aged, AAM, laying in bed in NAD Eyes: No Scleral Icterus Ears/Nose/Mouth/Throat: Mucous Membranes Moist Neck: - - Neck lesions appear less scaly, a bit wrinkled Respiratory: Symmetrical Chest Expansion and Respiratory Effort, Clear to Auscultation Cardiovascular: NL Sounds; No Murmurs; No JVD, RRR Abdominal: - - Soft, NTND, ventral hernia, BS+ Lymphatic: No Cervical Adenopathy Extremities: No Edema Neurological: Alert and Oriented x 3 Result Diagrams: 02/07/17 13:00 02/07/17 02:42 Microbiology and Other Data: Microbiology 02/06/17 15:55 Nasal Screen MRSA (PCR)(PER) - Final Nasal Mrsa Positive Assess/Plan/Problems-Billing Assessment: IJ vein thrombosis (likely catheter related) in a 66 yo M with hx of ESRD on HD , AFib, CAD s/p CABG, cardiomyopathy, chronic pain, s/p MV repair and TV repair - Patient Problems (1) Internal jugular vein thrombosis Current Visit: Yes Comment: Likely catheter related. Continue heparin gtt and coumadin until INR therapeutic. INR 1.4 today. (2) Hypertension Current Visit: No Comment: BPs stable. Continue Hydralazine, Imdur, Coreg, Lisinopril and Amlodipine (3) ESRF (end stage renal failure) Current Visit: No Comment: Last HD 02/06, did not complete fully. Will recheck BMP tomorrow. Plan for HD on 02/09 (4) DVT prophylaxis Current Visit: No Comment: Heparin Status and Disposition: Inpatient until INR therapeutic
[2017-02-08] MEDS: hydrALAZINE TAB* 25 MG PO SCH ×3 (09:07→20:55)
[2017-02-08] MEDS: Gabapentin CAP(*) 300 MG PO SCH ×3 (09:07→20:54)
[2017-02-08] MEDS: Atorvastatin* 10 MG TAB PO SCH (09:08)
[2017-02-08] MEDS: amLODIPine TAB* 5 MG PO SCH (09:08)
[2017-02-08] MEDS: Pancrelipase CAP* 5,000 UNITS CAP PO SCH ×4 (09:08→20:56)
[2017-02-08] MEDS: Cinacalcet TAB* 30 MG PO SCH (09:08)
[2017-02-08] MEDS: Vitamin B Complex TAB PO SCH (09:08)
[2017-02-08] MEDS: Carvedilol TAB* 25 MG PO SCH ×2 (09:09→17:09)
[2017-02-08] MEDS: Omeprazole CAP* 20 MG PO SCH ×2 (09:10→20:55)
[2017-02-08] MEDS: Lisinopril TAB* 10 MG PO SCH (09:10)
[2017-02-08] MEDS: Docusate CAP* 100 MG PO SCH (09:10)
[2017-02-08] MEDS: Citalopram TAB* 20 MG PO SCH (09:11)
[2017-02-08] MEDS: Isosorbide Mononitrate ER TAB* 60 MG PO SCH (09:11)
[2017-02-08] MEDS: Folic Acid TAB* 1 MG PO SCH (09:11)
[2017-02-08] MEDS: Morphine INJ* 4 MG/ML 1 ML SYRINGE IV PRN ×2 (09:19→17:11)
[2017-02-08] MEDS: Clotrimazole 1% CREAM* 45 GM TOPICAL SCH ×2 (09:20→21:53)
[2017-02-08] MEDS: diPHENhydraMINE PO* 50 MG PO PRN (09:38)
[2017-02-08 11:34] LABS: BUN/Creatinine Ratio 3.8 (8-20); Calcium 8.1 mg/dL (8.6-10.3); EGFR Non-African American 6.2 (>60); Potassium 5.2 mmol/L (3.5-5.0)
[2017-02-08] MEDS: oxyCODONE TAB* 5 MG TAB PO PRN ×3 (12:14→21:47)
[2017-02-08] MEDS: Heparin DRIP 25,000 UNITS(*) 25,000 UNITS/500 ML BAG IV SCH (14:54)
[2017-02-08] MEDS ORDERED: Warfarin TAB(*) 5 MG PO ONE (17:00)
[2017-02-08 17:36] LABS: Hematocrit 35 % (42-52); Hemoglobin 11.1 g/dl (14.0-18.0); Mean Corpuscular HGB Conc 32 g/dl (31-36); Mean Corpuscular Hemoglobin 28 pg (27-31); Mean Corpuscular Volume 86 fL (80-94); Mean Platelet Volume 8 um3 (7.4-10.4); Red Blood Count 4.03 10^6/ul (4.0-5.4); Red Cell Distribution Width 19 % (10.5-15); White Blood Count 4.4 10^3/ul (3.5-10.8)
[2017-02-08] MEDS: Ondansetron INJ* 2 MG/ML VIAL IV PRN (19:15)
[2017-02-08] MEDS: traZODone TAB* 50 MG TAB PO SCH (20:56)
[2017-02-09] MEDS: Ondansetron INJ* 2 MG/ML VIAL IV PRN (01:53)
[2017-02-09] MEDS: Gabapentin CAP(*) 300 MG PO SCH ×3 (08:37→20:11)
[2017-02-09] MEDS: Pancrelipase CAP* 5,000 UNITS CAP PO SCH ×4 (08:37→20:15)
[2017-02-09] MEDS: Vitamin B Complex TAB PO SCH (08:38)
[2017-02-09] MEDS: Atorvastatin* 10 MG TAB PO SCH (08:38)
[2017-02-09] MEDS: Citalopram TAB* 20 MG PO SCH (08:38)
[2017-02-09] MEDS: Cinacalcet TAB* 30 MG PO SCH (08:38)
[2017-02-09] MEDS: Docusate CAP* 100 MG PO SCH ×2 (08:38→08:49)
[2017-02-09] MEDS: Folic Acid TAB* 1 MG PO SCH (08:41)
[2017-02-09] MEDS: Omeprazole CAP* 20 MG PO SCH ×2 (08:42→20:14)
[2017-02-09] MEDS: Carvedilol TAB* 25 MG PO SCH ×2 (08:42→16:51)
[2017-02-09] MEDS: hydrALAZINE TAB* 25 MG PO SCH ×3 (08:42→20:14)
[2017-02-09] MEDS: oxyCODONE TAB* 5 MG TAB PO PRN (08:43)
[2017-02-09] MEDS: Clotrimazole 1% CREAM* 45 GM TOPICAL SCH ×2 (08:53→20:13)
--- NOTE | 2017-02-09 10:52 | PN ---
Subjective Date of Service: 02/09/17 Interval History: Patient seen this morning at . Says he continues to feel well. No new complaints. Thinks arm is improving. Lesions on neck are improving. Family History: Unchanged from Admission Social History: Unchanged from Admission Past Medical History: Unchanged from Admission Objective Active Medications: Acetaminophen (Tylenol Tab*) 650 mg PO Q8HR PRN PRN Reason: PAIN Albuterol (Ventolin Hfa Inhaler*) 2 puff INH Q4H PRN PRN Reason: SHORTNESS OF BREATH Amlodipine Besylate (Norvasc Tab*) [address] [facility] Last Admin: 02/08/17 09:08 Dose: 10 mg Atorvastatin Calcium (Lipitor*) [address] [facility] Last Admin: 02/09/17 08:38 Dose: 5 mg Carvedilol (Coreg Tab*) 25 mg PO BID WITH MEALS [facility] Last Admin: 02/09/17 08:42 Dose: 25 mg Cinacalcet (Sensipar Tab*) [address] [facility] Last Admin: 02/09/17 08:38 Dose: 30 mg Citalopram Hydrobromide (Celexa Tab*) [address] [facility] Last Admin: 02/09/17 08:38 Dose: 20 mg Clotrimazole (Clotrimazole 1%*) [address] [facility] Last Admin: 02/09/17 08:53 Dose: 1 applic Diphenhydramine HCl (Benadryl Po*) 50 mg PO DAILY PRN PRN Reason: Allergy Symptoms Last Admin: 02/08/17 09:38 Dose: 50 mg Diphenhydramine HCl (Benadryl Po*) 25 mg PO DAILY PRN PRN Reason: ITCHING Last Admin: 02/07/17 22:48 Dose: 25 mg Docusate Sodium (Colace Cap*) [address] [facility] Last Admin: 02/09/17 08:49 Dose: Not Given Folic Acid (Folvite Tab*) 0.[address] [facility] Last Admin: 02/09/17 08:41 Dose: 0.5 mg Gabapentin (Neurontin Cap(*)) [address] [facility] Last Admin: 02/09/17 08:37 Dose: 600 mg Heparin Sodium (Porcine) (Heparin Vial(*)) 0 units IV .PER PR[address]OCOL [facility] PRN Reason: Protocol Last Admin: 02/07/17 13:54 Dose: 3,000 units Hydralazine HCl (Apresoline Tab*) [address] [facility] Last Admin: 02/09/17 08:42 Dose: 50 mg Heparin Sodium/Dextrose (Heparin Drip 25,000 Units(*)) 25,000 units in 500 mls @ 0 mls/hr IV .NO INITIAL BOLUS [facility]; As Directed PRN Reason: Protocol Last Admin: 02/08/17 14:54 Dose: 21 mls/hr Isosorbide Mononitrate (Imdur Er Tab*) [address] [facility] Last Admin: 02/08/17 09:11 Dose: 60 mg Labetalol HCl (Trandate Iv*) 10 mg IV PUSH Q6H PRN PRN Reason: SBP > 180 Last Admin: 02/06/17 17:55 Dose: 10 mg Lisinopril (Prinivil Tab*) [address] [facility] Last Admin: 02/08/17 09:10 Dose: 10 mg Lorazepam (Ativan Tab(*)) 1 mg PO BID PRN PRN Reason: ANXIETY Morphine Sulfate (Morphine Inj (Syringe)*) 4 mg IV Q4H PRN PRN Reason: PAIN Last Admin: 02/08/17 09:19 Dose: 4 mg Nitroglycerin (Nitroglycerin Tab 0.4 Mg*) 0.4 mg SL Q5M PRN PRN Reason: PAIN - CHEST Omeprazole (Prilosec Cap*) [address] [facility] Last Admin: 02/09/17 08:42 Dose: 40 mg Ondansetron HCl (Zofran Inj*) 4 mg IV Q4H PRN PRN Reason: NAUSEA Last Admin: 02/09/17 01:53 Dose: 4 mg Oxycodone HCl (Roxycodone Tab*) 15 mg PO Q4H PRN PRN Reason: PAIN Last Admin: 02/09/17 08:43 Dose: 15 mg Pancrelipase (Zenpep Delayed Cap*) 10,[address] [facility] Last Admin: 02/09/17 08:37 Dose: 10,000 units Pharmacy Profile Note (Coumadin Per Pharmacy*) 1 note FOLLOW UP .PER PHARMACY PROTOC [facility] PRN Reason: Protocol Trazodone HCl (Desyrel Tab*) [address] [facility] Last Admin: 02/08/17 20:56 Dose: 100 mg Vitamin B Complex/Vitamin E (Complex B-100*) [address] [facility] Last Admin: 02/09/17 08:38 Dose: 1 tab Warfarin Sodium (Coumadin Tab(*)) 6 mg PO ONCE ONE Stop: 02/09/17 17:01 Zolpidem Tartrate (Ambien Tab*) 10 mg PO BEDTIME PRN PRN Reason: SLEEP Vital Signs 02/08/17 02/08/17 02/08/17 14:14 14:58 16:52 Temperature 97.4 F Pulse Rate 65 Respiratory 16 16 18 Rate Blood Pressure 133/94 (mmHg) O2 Sat by Pulse 100 Oximetry 02/08/17 02/08/17 02/08/17 22:54 23:44 23:47 Temperature 97.9 F Pulse Rate 47 Respiratory 18 16 18 Rate Blood Pressure 131/82 (mmHg) O2 Sat by Pulse 98 Oximetry Oxygen Devices in Use Now: None Appearance: Middle-aged, AAM, laying in chair in NAD Eyes: No Scleral Icterus Ears/Nose/Mouth/Throat: Mucous Membranes Moist Neck: NL Appearance and Movements; NL JVP Respiratory: Symmetrical Chest Expansion and Respiratory Effort, Clear to Auscultation Cardiovascular: RRR, - - prominent s2 Abdominal: NL Sounds; No Tenderness; No Distention Lymphatic: No Cervical Adenopathy Extremities: - - RUE>LUE Skin: - - neck lesions improving Neurological: Alert and Oriented x 3 Result Diagrams: 02/08/17 17:29 02/08/17 17:29 Microbiology and Other Data: Microbiology 02/06/17 15:55 Nasal Screen MRSA (PCR)(PER) - Final Nasal Mrsa Positive Assess/Plan/Problems-Billing Assessment: IJ vein thrombosis (likely catheter related) in a 66 yo M with hx of ESRD on HD , AFib, CAD s/p CABG, cardiomyopathy, chronic pain, s/p MV repair and TV repair - Patient Problems (1) Internal jugular vein thrombosis Current Visit: Yes Comment: Likely catheter related. Continue heparin gtt and coumadin until INR therapeutic. INR 1.8 today. (2) Tinea corporis Current Visit: Yes Comment: Continue Clotrimazole (3) Hypertension Current Visit: No Comment: BPs stable. Continue Hydralazine, Imdur, Coreg, Lisinopril and Amlodipine (4) ESRF (end stage renal failure) Current Visit: No Comment: HD 02/09 (5) DVT prophylaxis Current Visit: No Comment: Heparin Status and Disposition: Inpatient until INR therapeutic
[2017-02-09] MEDS: amLODIPine TAB* 5 MG PO SCH (13:11)
[2017-02-09] MEDS: Lisinopril TAB* 10 MG PO SCH (13:11)
[2017-02-09] MEDS: Isosorbide Mononitrate ER TAB* 60 MG PO SCH (13:11)
[2017-02-09] MEDS: Morphine INJ* 4 MG/ML 1 ML SYRINGE IV PRN ×2 (13:47→20:21)
[2017-02-09] MEDS ORDERED: Warfarin TAB(*) 6 MG PO ONE (17:00)
[2017-02-09 19:17] LABS: Hematocrit 33 % (42-52); Hemoglobin 10.5 g/dl (14.0-18.0); Mean Corpuscular HGB Conc 32 g/dl (31-36); Mean Corpuscular Hemoglobin 28 pg (27-31); Mean Corpuscular Volume 86 fL (80-94); Mean Platelet Volume 9 um3 (7.4-10.4); Red Blood Count 3.83 10^6/ul (4.0-5.4); Red Cell Distribution Width 19 % (10.5-15); White Blood Count 3.5 10^3/ul (3.5-10.8)
[2017-02-09] MEDS: Heparin DRIP 25,000 UNITS(*) 25,000 UNITS/500 ML BAG IV SCH (19:50)
[2017-02-09] MEDS: Heparin VIAL(*) 5000 UNITS/ML VIAL (FIVE THOUSAND) IV SCH (19:51)
[2017-02-09] MEDS: traZODone TAB* 50 MG TAB PO SCH (20:15)
[2017-02-09] MEDS: diPHENhydraMINE PO* 50 MG PO PRN (20:20)
[2017-02-10 05:19] LABS: Hematocrit 32 % (42-52); Hemoglobin 10.1 g/dl (14.0-18.0); Mean Corpuscular HGB Conc 32 g/dl (31-36); Mean Corpuscular Hemoglobin 27 pg (27-31); Mean Corpuscular Volume 86 fL (80-94); Mean Platelet Volume 9 um3 (7.4-10.4); Red Blood Count 3.73 10^6/ul (4.0-5.4); Red Cell Distribution Width 19 % (10.5-15)
[2017-02-10 05:30] LABS: Comments Flag Yes
[2017-02-10 05:31] LABS: Add Diff/Slide Review? Slide Review Added
[2017-02-10] MEDS: Heparin DRIP 25,000 UNITS(*) 25,000 UNITS/500 ML BAG IV SCH (05:48)
[2017-02-10] MEDS: oxyCODONE TAB* 5 MG TAB PO PRN ×2 (08:31→20:42)
[2017-02-10] MEDS: Carvedilol TAB* 25 MG PO SCH ×2 (08:31→15:57)
[2017-02-10] MEDS: Pancrelipase CAP* 5,000 UNITS CAP PO SCH ×4 (08:32→20:41)
[2017-02-10] MEDS: Folic Acid TAB* 1 MG PO SCH (09:56)
[2017-02-10] MEDS: Atorvastatin* 10 MG TAB PO SCH (09:57)
[2017-02-10] MEDS: Vitamin B Complex TAB PO SCH (09:59)
[2017-02-10] MEDS: Morphine INJ* 4 MG/ML 1 ML SYRINGE IV PRN (09:59)
[2017-02-10] MEDS: Citalopram TAB* 20 MG PO SCH (10:00)
[2017-02-10] MEDS: Omeprazole CAP* 20 MG PO SCH ×2 (10:00→20:41)
[2017-02-10] MEDS: hydrALAZINE TAB* 25 MG PO SCH ×3 (10:01→20:40)
[2017-02-10] MEDS: Gabapentin CAP(*) 300 MG PO SCH ×3 (10:01→20:37)
[2017-02-10] MEDS: Lisinopril TAB* 10 MG PO SCH (10:02)
[2017-02-10] MEDS: Isosorbide Mononitrate ER TAB* 60 MG PO SCH (10:02)
[2017-02-10] MEDS: Cinacalcet TAB* 30 MG PO SCH (10:03)
[2017-02-10] MEDS: amLODIPine TAB* 5 MG PO SCH (10:03)
[2017-02-10] MEDS: Docusate CAP* 100 MG PO SCH (10:03)
[2017-02-10] MEDS: Clotrimazole 1% CREAM* 45 GM TOPICAL SCH ×2 (10:04→20:37)
[2017-02-10] MEDS ORDERED: Warfarin TAB(*) 3 MG PO ONE (17:00)
[2017-02-10] MEDS: traZODone TAB* 50 MG TAB PO SCH (20:42)
[2017-02-10] MEDS: diPHENhydraMINE PO* 50 MG PO PRN (20:43)
--- NOTE | 2017-02-10 22:58 | PN ---
Subjective Date of Service: 02/10/17 Interval History: Patient just feels uncomfortable today. Twitching alot. Family History: Unchanged from Admission Social History: Unchanged from Admission Past Medical History: Unchanged from Admission Objective Active Medications: Acetaminophen (Tylenol Tab*) 650 mg PO Q8HR PRN PRN Reason: PAIN Albuterol (Ventolin Hfa Inhaler*) 2 puff INH Q4H PRN PRN Reason: SHORTNESS OF BREATH Amlodipine Besylate (Norvasc Tab*) 10 mg PO DAILY [facility] Last Admin: 02/10/17 10:03 Dose: 10 mg Atorvastatin Calcium (Lipitor*) 5 mg PO DAILY [facility] Last Admin: 02/10/17 09:57 Dose: 5 mg Carvedilol (Coreg Tab*) 25 mg PO BID WITH MEALS [facility] Last Admin: 02/10/17 15:57 Dose: 25 mg Cinacalcet (Sensipar Tab*) 30 mg PO DAILY [facility] Last Admin: 02/10/17 10:03 Dose: 30 mg Citalopram Hydrobromide (Celexa Tab*) 20 mg PO DAILY [facility] Last Admin: 02/10/17 10:00 Dose: 20 mg Clotrimazole (Clotrimazole 1%*) 1 applic TOPICAL BID [facility] Last Admin: 02/10/17 20:37 Dose: 1 applic Diphenhydramine HCl (Benadryl Po*) 50 mg PO DAILY PRN PRN Reason: Allergy Symptoms Last Admin: 02/10/17 20:43 Dose: 50 mg Diphenhydramine HCl (Benadryl Po*) 25 mg PO DAILY PRN PRN Reason: ITCHING Last Admin: 02/07/17 22:48 Dose: 25 mg Docusate Sodium (Colace Cap*) 100 mg PO DAILY [facility] Last Admin: 02/10/17 10:03 Dose: 100 mg Folic Acid (Folvite Tab*) 0.5 mg PO DAILY [facility] Last Admin: 02/10/17 09:56 Dose: 0.5 mg Gabapentin (Neurontin Cap(*)) 600 mg PO TID [facility] Last Admin: 02/10/17 20:37 Dose: 600 mg Heparin Sodium (Porcine) (Heparin Vial(*)) 0 units IV .PER PROTOCOL [facility] PRN Reason: Protocol Last Admin: 02/09/17 19:51 Dose: 3,000 units Hydralazine HCl (Apresoline Tab*) 50 mg PO TID [facility] Last Admin: 02/10/17 20:40 Dose: 50 mg Heparin Sodium/Dextrose (Heparin Drip 25,000 Units(*)) 25,000 units in 500 mls @ 0 mls/hr IV .NO INITIAL BOLUS [facility]; As Directed PRN Reason: Protocol Last Admin: 02/10/17 05:48 Dose: 15 mls/hr Isosorbide Mononitrate (Imdur Er Tab*) 60 mg PO DAILY [facility] Last Admin: 02/10/17 10:02 Dose: 60 mg Labetalol HCl (Trandate Iv*) 10 mg IV PUSH Q6H PRN PRN Reason: SBP > 180 Last Admin: 02/06/17 17:55 Dose: 10 mg Lisinopril (Prinivil Tab*) 10 mg PO DAILY [facility] Last Admin: 02/10/17 10:02 Dose: 10 mg Lorazepam (Ativan Tab(*)) 1 mg PO BID PRN PRN Reason: ANXIETY Morphine Sulfate (Morphine Inj (Syringe)*) 4 mg IV Q4H PRN PRN Reason: PAIN Last Admin: 02/10/17 09:59 Dose: 4 mg Nitroglycerin (Nitroglycerin Tab 0.4 Mg*) 0.4 mg SL Q5M PRN PRN Reason: PAIN - CHEST Omeprazole (Prilosec Cap*) 40 mg PO BID [facility] Last Admin: 02/10/17 20:41 Dose: 40 mg Ondansetron HCl (Zofran Inj*) 4 mg IV Q4H PRN PRN Reason: NAUSEA Last Admin: 02/09/17 01:53 Dose: 4 mg Oxycodone HCl (Roxycodone Tab*) 15 mg PO Q4H PRN PRN Reason: PAIN Last Admin: 02/10/17 20:42 Dose: 15 mg Pancrelipase (Zenpep Delayed Cap*) 10,000 units PO QID ACHS [facility] Last Admin: 02/10/17 20:41 Dose: 10,000 units Pharmacy Profile Note (Coumadin Per Pharmacy*) 1 note FOLLOW UP .PER PHARMACY PROTOC [facility] PRN Reason: Protocol Trazodone HCl (Desyrel Tab*) 100 mg PO BEDTIME [facility] Last Admin: 02/10/17 20:42 Dose: 100 mg Vitamin B Complex/Vitamin E (Complex B-100*) 1 tab PO DAILY [facility] Last Admin: 02/10/17 09:59 Dose: 1 tab Zolpidem Tartrate (Ambien Tab*) 10 mg PO BEDTIME PRN PRN Reason: SLEEP Vital Signs 02/10/17 02/10/17 02/10/17 00:01 06:14 08:31 Temperature 98.8 F Pulse Rate 67 Respiratory 14 18 16 Rate Blood Pressure 108/68 (mmHg) O2 Sat by Pulse 99 Oximetry 02/10/17 02/10/17 02/10/17 09:13 09:59 10:01 Temperature 98.7 F Pulse Rate 66 Respiratory 16 18 16 Rate Blood Pressure 138/92 (mmHg) O2 Sat by Pulse 95 Oximetry 02/10/17 02/10/17 02/10/17 10:31 10:54 11:58 Temperature Pulse Rate Respiratory 18 18 18 Rate Blood Pressure (mmHg) O2 Sat by Pulse Oximetry 02/10/17 02/10/17 02/10/17 13:06 15:06 15:20 Temperature 98.1 F Pulse Rate 67 Respiratory 18 18 18 Rate Blood Pressure 130/88 (mmHg) O2 Sat by Pulse 95 Oximetry 02/10/17 02/10/17 02/10/17 20:01 20:37 20:42 Temperature 98.3 F Pulse Rate 60 Respiratory 16 17 17 Rate Blood Pressure 133/86 (mmHg) O2 Sat by Pulse 97 Oximetry 02/10/17 20:43 Temperature Pulse Rate Respiratory 17 Rate Blood Pressure (mmHg) O2 Sat by Pulse Oximetry Oxygen Devices in Use Now: None Appearance: Thin AA genleman sitting up in bed in NAD Eyes: No Scleral Icterus Ears/Nose/Mouth/Throat: Mucous Membranes Moist Neck: No Thyroid Enlargement, Masses Respiratory: Clear to Auscultation Cardiovascular: - - S1S2 liu Abdominal: NL Sounds; No Tenderness; No Distention, No Hepatosplenomegaly Lymphatic: No Cervical Adenopathy Extremities: No Edema Skin: No Rash or Ulcers Neurological: Alert and Oriented x 3 Result Diagrams: 02/10/17 04:27 02/08/17 17:29 Microbiology and Other Data: Microbiology 02/06/17 15:55 Nasal Screen MRSA (PCR)(PER) - Final Nasal Mrsa Positive Assess/Plan/Problems-Billing Assessment: IJ vein thrombosis (likely catheter related) in a 66 yo M with hx of ESRD on HD , AFib, CAD s/p CABG, cardiomyopathy, chronic pain, s/p MV repair and TV repair - Patient Problems (1) Internal jugular vein thrombosis Current Visit: Yes Status: Acute Code(s): I82.C19 - ACUTE EMBOLISM AND THROMBOSIS OF UNSP INTERNAL JUGULAR VEIN SNOMED Code(s): 128636117 Comment: Continue heparin gtt and coumadin until INR therapeutic. INR 2.44today. Can DC tomorrow if therapeutic. (2) Tinea corporis Current Visit: Yes Status: Acute Code(s): B35.4 - TINEA CORPORIS SNOMED Code(s): 37864800 Comment: Continue Clotrimazole (3) End stage renal failure on dialysis Current Visit: No Status: Chronic Priority: Medium Onset Date: 10/22/14 Code(s): N18.6 - END STAGE RENAL DISEASE; Z99.2 - DEPENDENCE ON RENAL DIALYSIS SNOMED Code(s): 674826263 Comment: Continue HD MWF (4) Twitching Current Visit: Yes Status: Acute Code(s): R25.3 - FASCICULATION SNOMED Code(s): 154710905 Comment: Likely from Morphine in ESRD patient (5) Hypertension Current Visit: No Status: Chronic Priority: High Code(s): I10 - ESSENTIAL (PRIMARY) HYPERTENSION SNOMED Code(s): 99429915 Comment: BPs stable. Continue Hydralazine, Imdur, Coreg, Lisinopril and Amlodipine (6) DVT prophylaxis Current Visit: No Status: Acute Priority: Medium Onset Date: 10/22/14 Code(s): MXX2239 - SNOMED Code(s): 280573541 Comment: Heparin drip Status and Disposition: Inpatient until INR therapeutic
[2017-02-11] MEDS: oxyCODONE TAB* 5 MG TAB PO PRN ×4 (08:10→22:00)
[2017-02-11] MEDS: Heparin DRIP 25,000 UNITS(*) 25,000 UNITS/500 ML BAG IV SCH (08:16)
[2017-02-11] MEDS: Pancrelipase CAP* 5,000 UNITS CAP PO SCH ×4 (08:23→21:58)
[2017-02-11 08:28] LABS: Albumin 3.8 g/dL (3.2-5.2); BUN/Creatinine Ratio 4.4 (8-20); Calcium 8.6 mg/dL (8.6-10.3); EGFR Non-African American 5.5 (>60); Globulin 3.7 g/dL (2-4); One Over Creatinine 0.1 mg/dL (0.67-1.17); Potassium 5.9 mmol/L (3.5-5.0); Total Bilirubin 0.5 mg/dL (0.2-1.0); Total Protein 7.5 g/dL (6.4-8.9)
[2017-02-11] MEDS ORDERED: Epoetin Alfa* 10,000 UNITS/ML VIAL IV ONE (09:00)
[2017-02-11] MEDS: Gabapentin CAP(*) 300 MG PO SCH ×3 (09:30→21:02)
[2017-02-11] MEDS: Omeprazole CAP* 20 MG PO SCH ×2 (12:41→21:05)
[2017-02-11] MEDS: Cinacalcet TAB* 30 MG PO SCH (12:41)
[2017-02-11] MEDS: Citalopram TAB* 20 MG PO SCH (12:41)
[2017-02-11] MEDS: Vitamin B Complex TAB PO SCH (12:41)
[2017-02-11] MEDS: Lisinopril TAB* 10 MG PO SCH (12:41)
[2017-02-11] MEDS: Isosorbide Mononitrate ER TAB* 60 MG PO SCH (12:42)
[2017-02-11] MEDS: Atorvastatin* 10 MG TAB PO SCH (12:42)
[2017-02-11] MEDS: Carvedilol TAB* 25 MG PO SCH ×2 (12:42→17:47)
[2017-02-11] MEDS: Folic Acid TAB* 1 MG PO SCH (12:42)
[2017-02-11] MEDS: amLODIPine TAB* 5 MG PO SCH (12:42)
[2017-02-11] MEDS: Clotrimazole 1% CREAM* 45 GM TOPICAL SCH ×2 (12:43→22:11)
[2017-02-11] MEDS: Docusate CAP* 100 MG PO SCH (12:43)
[2017-02-11] MEDS: hydrALAZINE TAB* 25 MG PO SCH ×3 (13:59→21:04)
[2017-02-11] MEDS ORDERED: Warfarin TAB(*) 3 MG PO ONE (17:00)
--- NOTE | 2017-02-11 18:57 | PN ---
Subjective Date of Service: 02/11/17 Interval History: Patient still shaking somewhat. Biggest concern. Family History: Unchanged from Admission Social History: Unchanged from Admission Past Medical History: Unchanged from Admission Objective Active Medications: Acetaminophen (Tylenol Tab*) 650 mg PO Q8HR PRN PRN Reason: PAIN Albuterol (Ventolin Hfa Inhaler*) 2 puff INH Q4H PRN PRN Reason: SHORTNESS OF BREATH Amlodipine Besylate (Norvasc Tab*) 10 mg PO DAILY [facility] Last Admin: 02/11/17 12:42 Dose: 10 mg Atorvastatin Calcium (Lipitor*) 5 mg PO DAILY [facility] Last Admin: 02/11/17 12:42 Dose: 5 mg Carvedilol (Coreg Tab*) 25 mg PO BID WITH MEALS [facility] Last Admin: 02/11/17 17:47 Dose: 25 mg Cinacalcet (Sensipar Tab*) 30 mg PO DAILY [facility] Last Admin: 02/11/17 12:41 Dose: 30 mg Citalopram Hydrobromide (Celexa Tab*) 20 mg PO DAILY [facility] Last Admin: 02/11/17 12:41 Dose: 20 mg Clotrimazole (Clotrimazole 1%*) 1 applic TOPICAL BID [facility] Last Admin: 02/11/17 12:43 Dose: 1 applic Diphenhydramine HCl (Benadryl Po*) 50 mg PO DAILY PRN PRN Reason: Allergy Symptoms Last Admin: 02/10/17 20:43 Dose: 50 mg Diphenhydramine HCl (Benadryl Po*) 25 mg PO DAILY PRN PRN Reason: ITCHING Last Admin: 02/07/17 22:48 Dose: 25 mg Docusate Sodium (Colace Cap*) 100 mg PO DAILY [facility] Last Admin: 02/11/17 12:43 Dose: 100 mg Folic Acid (Folvite Tab*) 0.5 mg PO DAILY [facility] Last Admin: 02/11/17 12:42 Dose: 0.5 mg Gabapentin (Neurontin Cap(*)) 600 mg PO TID [facility] Last Admin: 02/11/17 14:32 Dose: 600 mg Hydralazine HCl (Apresoline Tab*) 50 mg PO TID [facility] Last Admin: 02/11/17 14:31 Dose: 50 mg Isosorbide Mononitrate (Imdur Er Tab*) 60 mg PO DAILY [facility] Last Admin: 02/11/17 12:42 Dose: 60 mg Labetalol HCl (Trandate Iv*) 10 mg IV PUSH Q6H PRN PRN Reason: SBP > 180 Last Admin: 02/06/17 17:55 Dose: 10 mg Lisinopril (Prinivil Tab*) 10 mg PO DAILY [facility] Last Admin: 02/11/17 12:41 Dose: 10 mg Lorazepam (Ativan Tab(*)) 1 mg PO BID PRN PRN Reason: ANXIETY Morphine Sulfate (Morphine Inj (Syringe)*) 4 mg IV Q4H PRN PRN Reason: PAIN Last Admin: 02/10/17 09:59 Dose: 4 mg Nitroglycerin (Nitroglycerin Tab 0.4 Mg*) 0.4 mg SL Q5M PRN PRN Reason: PAIN - CHEST Omeprazole (Prilosec Cap*) 40 mg PO BID [facility] Last Admin: 02/11/17 12:41 Dose: 40 mg Ondansetron HCl (Zofran Inj*) 4 mg IV Q4H PRN PRN Reason: NAUSEA Last Admin: 02/09/17 01:53 Dose: 4 mg Oxycodone HCl (Roxycodone Tab*) 15 mg PO Q4H PRN PRN Reason: PAIN Last Admin: 02/11/17 17:46 Dose: 15 mg Pancrelipase (Zenpep Delayed Cap*) 10,000 units PO QID [facility] Last Admin: 02/11/17 17:47 Dose: 10,000 units Pharmacy Profile Note (Coumadin Per Pharmacy*) 1 note FOLLOW UP .PER PHARMACY PROTOC [facility] PRN Reason: Protocol Trazodone HCl (Desyrel Tab*) 100 mg PO BEDTIME [facility] Last Admin: 02/10/17 20:42 Dose: 100 mg Vitamin B Complex/Vitamin E (Complex B-100*) 1 tab PO DAILY [facility] Last Admin: 02/11/17 12:41 Dose: 1 tab Zolpidem Tartrate (Ambien Tab*) 10 mg PO BEDTIME PRN PRN Reason: SLEEP Vital Signs 02/10/17 02/10/17 02/10/17 20:00 20:01 20:37 Temperature 98.3 F Pulse Rate 60 Respiratory 17 16 17 Rate Blood Pressure 133/86 (mmHg) O2 Sat by Pulse 97 Oximetry 02/10/17 02/10/17 02/10/17 20:42 20:43 22:37 Temperature Pulse Rate Respiratory 17 17 17 Rate Blood Pressure (mmHg) O2 Sat by Pulse Oximetry 02/10/17 02/10/17 02/11/17 22:42 22:43 00:01 Temperature 97.5 F Pulse Rate 57 Respiratory 17 17 18 Rate Blood Pressure 133/82 (mmHg) O2 Sat by Pulse 96 Oximetry 02/11/17 02/11/17 02/11/17 07:42 08:00 08:10 Temperature 98.3 F Pulse Rate 62 Respiratory 18 18 16 Rate Blood Pressure 144/86 (mmHg) O2 Sat by Pulse 100 Oximetry 02/11/17 02/11/17 02/11/17 10:10 12:39 12:43 Temperature 99.6 F Pulse Rate 72 Respiratory 16 16 Rate Blood Pressure 143/94 (mmHg) O2 Sat by Pulse 93 Oximetry 02/11/17 02/11/17 02/11/17 14:32 14:43 17:46 Temperature Pulse Rate Respiratory 18 18 16 Rate Blood Pressure (mmHg) O2 Sat by Pulse Oximetry Oxygen Devices in Use Now: None Appearance: Thin gentleman sitting up in bed in NAD Eyes: PERRLA Ears/Nose/Mouth/Throat: Mucous Membranes Moist Neck: No Thyroid Enlargement, Masses Respiratory: Clear to Auscultation Cardiovascular: - - S1S2 liu Abdominal: NL Sounds; No Tenderness; No Distention, No Hepatosplenomegaly Lymphatic: No Cervical Adenopathy Extremities: No Edema Skin: No Rash or Ulcers Neurological: Alert and Oriented x 3 Result Diagrams: 02/10/17 04:27 02/11/17 06:52 Microbiology and Other Data: Microbiology 02/06/17 15:55 Nasal Screen MRSA (PCR)(PER) - Final Nasal Mrsa Positive Assess/Plan/Problems-Billing Assessment: IJ vein thrombosis (likely catheter related) in a 66 yo M with hx of ESRD on HD , AFib, CAD s/p CABG, cardiomyopathy, chronic pain, s/p MV repair and TV repair - Patient Problems (1) Internal jugular vein thrombosis Current Visit: Yes Status: Acute Code(s): I82.C19 - ACUTE EMBOLISM AND THROMBOSIS OF UNSP INTERNAL JUGULAR VEIN SNOMED Code(s): 599743932 Comment: INR therapeutic > 24 hours. DC heparin. (2) Tinea corporis Current Visit: Yes Status: Acute Code(s): B35.4 - TINEA CORPORIS SNOMED Code(s): 35335000 Comment: Continue Clotrimazole (3) End stage renal failure on dialysis Current Visit: No Status: Chronic Priority: Medium Onset Date: 10/22/14 Code(s): N18.6 - END STAGE RENAL DISEASE; Z99.2 - DEPENDENCE ON RENAL DIALYSIS SNOMED Code(s): 988906161 Comment: Continue HD MWF. Dialysis cath issue to be seen by surgery prior to discharge. (4) Twitching Current Visit: Yes Status: Acute Code(s): R25.3 - FASCICULATION SNOMED Code(s): 260381314 Comment: Likely from Morphine in ESRD patient. Dcd morphine. (5) Hypertension Current Visit: No Status: Chronic Priority: High Code(s): I10 - ESSENTIAL (PRIMARY) HYPERTENSION SNOMED Code(s): 29575099 Comment: BPs stable. Continue Hydralazine, Imdur, Coreg, Lisinopril and Amlodipine (6) DVT prophylaxis Current Visit: No Status: Acute Priority: Medium Onset Date: 10/22/14 Code(s): AQW0418 - SNOMED Code(s): 689569623 Comment: Coumadin Status and Disposition: Inpatient until INR therapeutic
[2017-02-11] MEDS: traZODone TAB* 50 MG TAB PO SCH (21:06)
[2017-02-12 06:58] LABS: Hematocrit 34 % (42-52); Hemoglobin 10.7 g/dl (14.0-18.0); Mean Platelet Volume 9 um3 (7.4-10.4)
[2017-02-12 06:59] LABS: Comments Flag Yes
[2017-02-12] MEDS: Carvedilol TAB* 25 MG PO SCH ×2 (08:34→19:12)
[2017-02-12] MEDS: Pancrelipase CAP* 5,000 UNITS CAP PO SCH ×4 (08:34→21:30)
[2017-02-12] MEDS: Cinacalcet TAB* 30 MG PO SCH (10:32)
[2017-02-12] MEDS: Vitamin B Complex TAB PO SCH (10:32)
[2017-02-12] MEDS: Gabapentin CAP(*) 300 MG PO SCH ×3 (10:33→21:31)
[2017-02-12] MEDS: Lisinopril TAB* 10 MG PO SCH (10:38)
[2017-02-12] MEDS: Isosorbide Mononitrate ER TAB* 60 MG PO SCH (10:40)
[2017-02-12] MEDS: amLODIPine TAB* 5 MG PO SCH (10:40)
[2017-02-12] MEDS: Citalopram TAB* 20 MG PO SCH (10:41)
[2017-02-12] MEDS: Omeprazole CAP* 20 MG PO SCH ×2 (10:43→21:33)
[2017-02-12] MEDS: hydrALAZINE TAB* 25 MG PO SCH ×3 (10:43→21:33)
[2017-02-12] MEDS: Atorvastatin* 10 MG TAB PO SCH (10:43)
[2017-02-12] MEDS: Folic Acid TAB* 1 MG PO SCH (10:44)
[2017-02-12] MEDS: Clotrimazole 1% CREAM* 45 GM TOPICAL SCH ×2 (10:45→21:37)
[2017-02-12] MEDS: Docusate CAP* 100 MG PO SCH (10:45)
[2017-02-12] MEDS ORDERED: Warfarin TAB(*) 3 MG PO ONE (17:00)
--- NOTE | 2017-02-12 18:00 | PN ---
Subjective Date of Service: 02/12/17 Interval History: Patient thinks he is still shaking from Morphine - wants to stay one more day. Pain improved. Family History: Unchanged from Admission Social History: Unchanged from Admission Past Medical History: Unchanged from Admission Objective Active Medications: Acetaminophen (Tylenol Tab*) 650 mg PO Q8HR PRN PRN Reason: PAIN Albuterol (Ventolin Hfa Inhaler*) 2 puff INH Q4H PRN PRN Reason: SHORTNESS OF BREATH Amlodipine Besylate (Norvasc Tab*) 10 mg PO DAILY [facility] Last Admin: 02/12/17 10:40 Dose: 10 mg Atorvastatin Calcium (Lipitor*) 5 mg PO DAILY [facility] Last Admin: 02/12/17 10:43 Dose: 5 mg Carvedilol (Coreg Tab*) 25 mg PO BID WITH MEALS [facility] Last Admin: 02/12/17 08:34 Dose: 25 mg Cinacalcet (Sensipar Tab*) 30 mg PO DAILY [facility] Last Admin: 02/12/17 10:32 Dose: 30 mg Citalopram Hydrobromide (Celexa Tab*) 20 mg PO DAILY [facility] Last Admin: 02/12/17 10:41 Dose: 20 mg Clotrimazole (Clotrimazole 1%*) 1 applic TOPICAL BID [facility] Last Admin: 02/12/17 10:45 Dose: 1 applic Diphenhydramine HCl (Benadryl Po*) 50 mg PO DAILY PRN PRN Reason: Allergy Symptoms Last Admin: 02/10/17 20:43 Dose: 50 mg Diphenhydramine HCl (Benadryl Po*) 25 mg PO DAILY PRN PRN Reason: ITCHING Last Admin: 02/07/17 22:48 Dose: 25 mg Docusate Sodium (Colace Cap*) 100 mg PO DAILY [facility] Last Admin: 02/12/17 10:45 Dose: 100 mg Folic Acid (Folvite Tab*) 0.5 mg PO DAILY [facility] Last Admin: 02/12/17 10:44 Dose: 0.5 mg Gabapentin (Neurontin Cap(*)) 600 mg PO TID [facility] Last Admin: 02/12/17 15:27 Dose: 600 mg Hydralazine HCl (Apresoline Tab*) 50 mg PO TID [facility] Last Admin: 02/12/17 15:27 Dose: 50 mg Isosorbide Mononitrate (Imdur Er Tab*) 60 mg PO DAILY [facility] Last Admin: 02/12/17 10:40 Dose: 60 mg Labetalol HCl (Trandate Iv*) 10 mg IV PUSH Q6H PRN PRN Reason: SBP > 180 Last Admin: 02/06/17 17:55 Dose: 10 mg Lisinopril (Prinivil Tab*) 10 mg PO DAILY [facility] Last Admin: 02/12/17 10:38 Dose: 10 mg Lorazepam (Ativan Tab(*)) 1 mg PO BID PRN PRN Reason: ANXIETY Nitroglycerin (Nitroglycerin Tab 0.4 Mg*) 0.4 mg SL Q5M PRN PRN Reason: PAIN - CHEST Omeprazole (Prilosec Cap*) 40 mg PO BID [facility] Last Admin: 02/12/17 10:43 Dose: 40 mg Ondansetron HCl (Zofran Inj*) 4 mg IV Q4H PRN PRN Reason: NAUSEA Last Admin: 02/09/17 01:53 Dose: 4 mg Oxycodone HCl (Roxycodone Tab*) 15 mg PO Q4H PRN PRN Reason: PAIN Last Admin: 02/11/17 22:00 Dose: 15 mg Pancrelipase (Zenpep Delayed Cap*) 10,000 units PO QID ACHS [facility] Last Admin: 02/12/17 15:28 Dose: 10,000 units Pharmacy Profile Note (Coumadin Per Pharmacy*) 1 note FOLLOW UP .PER PHARMACY PROTOC [facility] PRN Reason: Protocol Trazodone HCl (Desyrel Tab*) 100 mg PO BEDTIME [facility] Last Admin: 02/11/17 21:06 Dose: 100 mg Vitamin B Complex/Vitamin E (Complex B-100*) 1 tab PO DAILY [facility] Last Admin: 02/12/17 10:32 Dose: 1 tab Zolpidem Tartrate (Ambien Tab*) 10 mg PO BEDTIME PRN PRN Reason: SLEEP Last Admin: 02/11/17 22:00 Dose: 10 mg Vital Signs 02/11/17 02/11/17 02/11/17 19:46 20:00 20:53 Temperature 98.0 F Pulse Rate 63 Respiratory 16 16 16 Rate Blood Pressure 126/81 (mmHg) O2 Sat by Pulse 98 Oximetry 02/11/17 02/11/17 02/11/17 21:02 22:00 23:02 Temperature Pulse Rate Respiratory 16 16 16 Rate Blood Pressure (mmHg) O2 Sat by Pulse Oximetry 02/12/17 02/12/17 02/12/17 00:00 07:23 07:47 Temperature 97.9 F 98.4 F Pulse Rate 60 66 Respiratory 16 16 16 Rate Blood Pressure 97/62 116/67 (mmHg) O2 Sat by Pulse 97 100 Oximetry 02/12/17 02/12/17 10:33 15:27 Temperature Pulse Rate Respiratory 19 18 Rate Blood Pressure (mmHg) O2 Sat by Pulse Oximetry Oxygen Devices in Use Now: None Appearance: Thin gentleman lying in bed in NAD Eyes: No Scleral Icterus Ears/Nose/Mouth/Throat: Mucous Membranes Moist Neck: No Thyroid Enlargement, Masses Respiratory: Clear to Auscultation Cardiovascular: - - S1S2 liu Abdominal: NL Sounds; No Tenderness; No Distention, No Hepatosplenomegaly Extremities: No Clubbing, Cyanosis Skin: No Rash or Ulcers Neurological: Alert and Oriented x 3 Result Diagrams: 02/12/17 06:07 02/11/17 06:52 Microbiology and Other Data: Microbiology 02/06/17 15:55 Nasal Screen MRSA (PCR)(PER) - Final Nasal Mrsa Positive Assess/Plan/Problems-Billing Assessment: IJ vein thrombosis (likely catheter related) in a 66 yo M with hx of ESRD on HD , AFib, CAD s/p CABG, cardiomyopathy, chronic pain, s/p MV repair and TV repair - Patient Problems (1) Internal jugular vein thrombosis Current Visit: Yes Status: Acute Code(s): I82.C19 - ACUTE EMBOLISM AND THROMBOSIS OF UNSP INTERNAL JUGULAR VEIN SNOMED Code(s): 159414778 Comment: INR therapeutic > 24 hours. Can be discharged from this perspective. (2) Tinea corporis Current Visit: Yes Status: Acute Code(s): B35.4 - TINEA CORPORIS SNOMED Code(s): 06043634 Comment: Continue Clotrimazole (3) End stage renal failure on dialysis Current Visit: No Status: Chronic Priority: Medium Onset Date: 10/22/14 Code(s): N18.6 - END STAGE RENAL DISEASE; Z99.2 - DEPENDENCE ON RENAL DIALYSIS SNOMED Code(s): 065319398 Comment: Continue HD MWF. Dialysis cath repaired by surgery today. (4) Twitching Current Visit: Yes Status: Acute Code(s): R25.3 - FASCICULATION SNOMED Code(s): 920834804 Comment: Likely from Morphine in ESRD patient. Dcd morphine. Patient was not shaking when I first walked in the room while sleeping. He woke up spoketo me for a few minutes and then said he was shaking . I dont believe he was actually twitching. He will be dcd tomorrow am. (5) Hypertension Current Visit: No Status: Chronic Priority: High Code(s): I10 - ESSENTIAL (PRIMARY) HYPERTENSION SNOMED Code(s): 78900555 Comment: BPs stable. Continue Hydralazine, Imdur, Coreg, Lisinopril and Amlodipine (6) DVT prophylaxis Current Visit: No Status: Acute Priority: Medium Onset Date: 10/22/14 Code(s): XRY2091 - SNOMED Code(s): 959941200 Comment: Coumadin Status and Disposition: DC in AM 02/13/17
[2017-02-12] MEDS: traZODone TAB* 50 MG TAB PO SCH (21:31)
--- NOTE | 2017-02-13 00:04 | OP ---
DATE OF OPERATION: 02/12/17 - ROOM #451 DATE OF : 54 SURGEON: Luis Fernando Finch MD PRE-OP DIAGNOSIS: POST-OP DIAGNOSIS: OPERATIVE PROCEDURE: HISTORY: The patient is a 66-year-old chronic dialysis patient who has had a Tesio catheter in the right side for sometime now and the clamps have since broken off and had been lost in the dialysis unit and would like repair of the catheter. DESCRIPTION OF PROCEDURE: Therefore, the area was prepped with antiseptic, sterile drapes were utilized and the previous catheter connectors were removed. The tubing was again wiped with antiseptic and sterile gloves were utilized and new attachments and clamps were all put in place. The catheter had good blood return and flushed nicely. The dialysis nurses were to come and they wanted to do the final heparin flush. He tolerated this well without any difficulty. There was no blood loss. CC: Dr. Dalal* [id number]/CPS #: [id number] MTDD
[2017-02-13] MEDS: Carvedilol TAB* 25 MG PO SCH ×2 (09:36→17:13)
[2017-02-13] MEDS: hydrALAZINE TAB* 25 MG PO SCH (09:36)
[2017-02-13] MEDS: Gabapentin CAP(*) 300 MG PO SCH ×3 (09:36→22:06)
[2017-02-13] MEDS: Pancrelipase CAP* 5,000 UNITS CAP PO SCH ×4 (09:36→22:05)
[2017-02-13] MEDS: Omeprazole CAP* 20 MG PO SCH ×2 (09:36→22:05)
--- NOTE | 2017-02-13 09:58 | PN ---
Subjective Date of Service: 02/13/17 Interval History: CTSP due to unresponsiveness. When I arrived patient woke easily with sternal rub. Concerned as he feels like he continues to have twitching, does not think he can go home today. Has not yet had dialysis today. Complaining of his chronic abdominal pain. Family History: Unchanged from Admission Social History: Unchanged from Admission Past Medical History: Unchanged from Admission Objective Active Medications: Acetaminophen (Tylenol Tab*) 650 mg PO Q8HR PRN Albuterol (Ventolin Hfa Inhaler*) 2 puff INH Q4H PRN Amlodipine Besylate (Norvasc Tab*) 10 mg PO DAILY [facility] Atorvastatin Calcium (Lipitor*) 5 mg PO DAILY [facility] Carvedilol (Coreg Tab*) 25 mg PO BID WITH MEALS [facility] Cinacalcet (Sensipar Tab*) 30 mg PO DAILY [facility] Citalopram Hydrobromide (Celexa Tab*) 20 mg PO DAILY [facility] Clotrimazole (Clotrimazole 1%*) 1 applic TOPICAL BID [facility] Diphenhydramine HCl (Benadryl Po*) 50 mg PO DAILY [facility] Diphenhydramine HCl (Benadryl Po*) 25 mg PO DAILY [facility] Docusate Sodium (Colace Cap*) 100 mg PO DAILY [facility] Folic Acid (Folvite Tab*) 0.5 mg PO DAILY [facility] Gabapentin (Neurontin Cap(*)) 600 mg PO TID [facility] Hydralazine HCl (Apresoline Tab*) 50 mg PO TID [facility] Isosorbide Mononitrate (Imdur Er Tab*) 60 mg PO DAILY [facility] Labetalol HCl (Trandate Iv*) 10 mg IV PUSH Q6H PRN Lisinopril (Prinivil Tab*) 10 mg PO DAILY [facility] Lorazepam (Ativan Tab(*)) 1 mg PO BID PRN Nitroglycerin (Nitroglycerin Tab 0.4 Mg*) 0.4 mg SL Q5M PRN Omeprazole (Prilosec Cap*) 40 mg PO BID [facility] Ondansetron HCl (Zofran Inj*) 4 mg IV Q4H PRN Oxycodone HCl (Roxycodone Tab*) 15 mg PO Q4H PRN Pancrelipase (Zenpep Delayed Cap*) 10,000 units PO QID ACHS [facility] Pharmacy Profile Note (Coumadin Per Pharmacy*) 1 note FOLLOW UP .PER PHARMACY PROTOC [facility] Trazodone HCl (Desyrel Tab*) 100 mg PO BEDTIME [facility] Vitamin B Complex/Vitamin E (Complex B-100*) 1 tab PO DAILY [facility] Zolpidem Tartrate (Ambien Tab*) 10 mg PO BEDTIME PRN Vital Signs 02/12/17 02/12/17 02/12/17 10:33 13:59 15:27 Temperature Pulse Rate 62 Respiratory 19 16 18 Rate Blood Pressure 133/73 (mmHg) O2 Sat by Pulse 94 Oximetry 02/12/17 02/12/17 02/12/17 16:53 17:27 20:00 Temperature 98.3 F Pulse Rate 64 Respiratory 16 16 16 Rate Blood Pressure 122/78 (mmHg) O2 Sat by Pulse 93 Oximetry 02/12/17 02/12/17 02/13/17 21:31 23:31 00:20 Temperature 97.9 F Pulse Rate 58 Respiratory 14 14 20 Rate Blood Pressure 102/85 (mmHg) O2 Sat by Pulse 96 Oximetry Oxygen Devices in Use Now: Nasal Cannula Appearance: Middle-aged, AAM, laying in bed in NAD Eyes: No Scleral Icterus Ears/Nose/Mouth/Throat: - - Dry MM Neck: NL Appearance and Movements; NL JVP Respiratory: Symmetrical Chest Expansion and Respiratory Effort, Clear to Auscultation Cardiovascular: NL Sounds; No Murmurs; No JVD, RRR Abdominal: - - Soft, TTP in epigastric area, no rebound/guarding, BS+ Lymphatic: No Cervical Adenopathy Extremities: - - RUE edema, no LE edema Skin: - - Dry flaky skin Neurological: Alert and Oriented x 3 Result Diagrams: 02/12/17 06:07 02/11/17 06:52 Microbiology and Other Data: Microbiology 02/06/17 15:55 Nasal Screen MRSA (PCR)(PER) - Final Nasal Mrsa Positive Assess/Plan/Problems-Billing Assessment: IJ vein thrombosis (likely catheter related) in a 66 yo M with hx of ESRD on HD , AFib, CAD s/p CABG, cardiomyopathy, chronic pain, s/p MV repair and TV repair - Patient Problems (1) Internal jugular vein thrombosis Current Visit: Yes Comment: INR therapeutic > 24 hours. Can be discharged from this perspective. (2) Tinea corporis Current Visit: Yes Comment: Continue Clotrimazole (3) Hypertension Current Visit: No Comment: BPs stable. Continue Hydralazine, Imdur, Coreg, Lisinopril and Amlodipine (4) Twitching Current Visit: Yes Comment: Check CMP, Mg, Phos. (5) ESRF (end stage renal failure) Current Visit: No Comment: HD today, 02/13 (6) DVT prophylaxis Current Visit: No Comment: Coumadin
[2017-02-13 11:44] LABS: Albumin 3.8 g/dL (3.2-5.2); BUN/Creatinine Ratio 3.7 (8-20); Calcium 8.7 mg/dL (8.6-10.3); EGFR African American 10.1 (>60); EGFR Non-African American 7.9 (>60); Globulin 4.1 g/dL (2-4); Magnesium 2.4 mg/dL (1.9-2.7); Phosphorus 4.1 mg/dL (2.5-5.0); Potassium 4.5 mmol/L (3.5-5.0); Total Bilirubin 0.5 mg/dL (0.2-1.0); Total Protein 7.9 g/dL (6.4-8.9)
[2017-02-13] MEDS ORDERED: Epoetin Alfa* 10,000 UNITS/ML VIAL IV ONE (12:00)
--- NOTE | 2017-02-13 13:44 | PN ---
Hospitalist Progress Note Patient found to have empty Oxycodone bottle in his room. Rx was filled on 02/10 for Oxycodone 15 mg tabs, 75 pills. Patient states his sister brought them in to him and that he took all of them while here in the hospital. Patient has apparently had a lot of visitors in the past few days and there have been previous concerns about the patient selling his medications. Reiterated to the patient that he is not to take any medications other than those prescribed in the hospital and given by the nursing staff. Additionally, patient continues to have twitching. May be related to his narcotics, difficult to know how much he's actually taken in the past few days. Also, in speaking with another physician familiar with the patient, this could be related to relative hypotension. The patient's BPs have been well controlled and even low at times here in the hospital which is likely a drastic decrease from his usual outpatient BPs. Will hold his nitrates for now and re-evaluate the blood pressures.
[2017-02-13 14:11] LABS: Hematocrit 42 % (42-52); Hemoglobin 13.3 g/dl (14.0-18.0); Mean Corpuscular HGB Conc 32 g/dl (31-36); Mean Corpuscular Hemoglobin 27 pg (27-31); Mean Corpuscular Volume 85 fL (80-94); Mean Platelet Volume 8 um3 (7.4-10.4); Red Blood Count 4.97 10^6/ul (4.0-5.4); Red Cell Distribution Width 18 % (10.5-15)
[2017-02-13 14:14] LABS: Comments Flag Yes; White Blood Count 3.3 10^3/ul (3.5-10.8)
[2017-02-13 14:15] LABS: PCO2 Arterial 45 mmHg (35-45)
[2017-02-13] MEDS: oxyCODONE TAB* 5 MG TAB PO PRN (14:50)
[2017-02-13] MEDS: Lisinopril TAB* 10 MG PO SCH (14:50)
[2017-02-13] MEDS: Atorvastatin* 10 MG TAB PO SCH (14:51)
[2017-02-13] MEDS: Cinacalcet TAB* 30 MG PO SCH (14:51)
[2017-02-13] MEDS: Vitamin B Complex TAB PO SCH (14:51)
[2017-02-13] MEDS: amLODIPine TAB* 5 MG PO SCH (14:51)
[2017-02-13] MEDS: Citalopram TAB* 20 MG PO SCH (14:53)
[2017-02-13] MEDS: Folic Acid TAB* 1 MG PO SCH (14:53)
[2017-02-13] MEDS: Docusate CAP* 100 MG PO SCH (15:01)
[2017-02-13] MEDS: Clotrimazole 1% CREAM* 45 GM TOPICAL SCH ×2 (15:01→22:11)
[2017-02-13] MEDS ORDERED: Warfarin TAB(*) 3 MG PO ONE (17:00)
[2017-02-13] MEDS: Moisturizing CREAM* 113 GM JAR TOPICAL SCH ×2 (17:13→22:11)
[2017-02-13] MEDS: Isosorbide Mononitrate ER TAB* 60 MG PO SCH (17:52)
[2017-02-13] MEDS: traZODone TAB* 50 MG TAB PO SCH (22:05)
[2017-02-14] MEDS: diPHENhydraMINE PO* 25 MG PO PRN (02:30)
[2017-02-14] MEDS: Folic Acid TAB* 1 MG PO SCH (08:45)
[2017-02-14] MEDS: Atorvastatin* 10 MG TAB PO SCH (08:45)
[2017-02-14] MEDS: Gabapentin CAP(*) 300 MG PO SCH ×3 (08:46→21:22)
[2017-02-14] MEDS: Citalopram TAB* 20 MG PO SCH (08:46)
[2017-02-14] MEDS: Carvedilol TAB* 25 MG PO SCH ×2 (08:46→16:26)
[2017-02-14] MEDS: Omeprazole CAP* 20 MG PO SCH ×2 (08:46→21:24)
[2017-02-14] MEDS: Docusate CAP* 100 MG PO SCH (08:46)
[2017-02-14] MEDS: amLODIPine TAB* 5 MG PO SCH (08:46)
[2017-02-14] MEDS: Cinacalcet TAB* 30 MG PO SCH (08:46)
[2017-02-14] MEDS: Vitamin B Complex TAB PO SCH (08:46)
[2017-02-14] MEDS: Lisinopril TAB* 10 MG PO SCH (08:47)
[2017-02-14] MEDS: Clotrimazole 1% CREAM* 45 GM TOPICAL SCH ×2 (08:47→21:33)
[2017-02-14] MEDS: Pancrelipase CAP* 5,000 UNITS CAP PO SCH ×4 (08:49→21:25)
[2017-02-14] MEDS: Moisturizing CREAM* 113 GM JAR TOPICAL SCH ×3 (09:38→21:37)
[2017-02-14] MEDS: Warfarin TAB(*) 3 MG PO SCH (16:26)
--- NOTE | 2017-02-14 17:26 | PN ---
Subjective Date of Service: 02/14/17 Interval History: Patient now saying he can't walk which is a new complaint. Not pain he says but weakness. Family History: Unchanged from Admission Social History: Unchanged from Admission Past Medical History: Unchanged from Admission Objective Active Medications: Acetaminophen (Tylenol Tab*) 650 mg PO Q8HR PRN PRN Reason: PAIN Albuterol (Ventolin Hfa Inhaler*) 2 puff INH Q4H PRN PRN Reason: SHORTNESS OF BREATH Amlodipine Besylate (Norvasc Tab*) 10 mg PO DAILY [facility] Last Admin: 02/14/17 08:46 Dose: 10 mg Atorvastatin Calcium (Lipitor*) 5 mg PO DAILY [facility] Last Admin: 02/14/17 08:45 Dose: 5 mg Carvedilol (Coreg Tab*) 25 mg PO BID WITH MEALS [facility] Last Admin: 02/14/17 16:26 Dose: 25 mg Cinacalcet (Sensipar Tab*) 30 mg PO DAILY [facility] Last Admin: 02/14/17 08:46 Dose: 30 mg Citalopram Hydrobromide (Celexa Tab*) 20 mg PO DAILY [facility] Last Admin: 02/14/17 08:46 Dose: 20 mg Clotrimazole (Clotrimazole 1%*) 1 applic TOPICAL BID [facility] Last Admin: 02/14/17 08:47 Dose: 1 applic Diphenhydramine HCl (Benadryl Po*) 50 mg PO DAILY PRN PRN Reason: Allergy Symptoms Last Admin: 02/10/17 20:43 Dose: 50 mg Diphenhydramine HCl (Benadryl Po*) 25 mg PO DAILY PRN PRN Reason: ITCHING Last Admin: 02/14/17 02:30 Dose: 25 mg Docusate Sodium (Colace Cap*) 100 mg PO DAILY [facility] Last Admin: 02/14/17 08:46 Dose: 100 mg Folic Acid (Folvite Tab*) 0.5 mg PO DAILY [facility] Last Admin: 02/14/17 08:45 Dose: 0.5 mg Gabapentin (Neurontin Cap(*)) 600 mg PO TID [facility] Last Admin: 02/14/17 12:45 Dose: 600 mg Labetalol HCl (Trandate Iv*) 10 mg IV PUSH Q6H PRN PRN Reason: SBP > 180 Last Admin: 02/06/17 17:55 Dose: 10 mg Lisinopril (Prinivil Tab*) 10 mg PO DAILY [facility] Last Admin: 02/14/17 08:47 Dose: 10 mg Multi-Ingredient Ointment (Hydrocerin*) 1 applic TOPICAL TID [facility] Last Admin: 02/14/17 12:46 Dose: Not Given Nitroglycerin (Nitroglycerin Tab 0.4 Mg*) 0.4 mg SL Q5M PRN PRN Reason: PAIN - CHEST Omeprazole (Prilosec Cap*) 40 mg PO BID [facility] Last Admin: 02/14/17 08:46 Dose: 40 mg Ondansetron HCl (Zofran Inj*) 4 mg IV Q4H PRN PRN Reason: NAUSEA Last Admin: 02/09/17 01:53 Dose: 4 mg Oxycodone HCl (Roxycodone Tab*) 15 mg PO Q4H PRN PRN Reason: PAIN Last Admin: 02/13/17 14:50 Dose: 15 mg Pancrelipase (Zenpep Delayed Cap*) 10,000 units PO QID ACHS [facility] Last Admin: 02/14/17 16:25 Dose: 10,000 units Pharmacy Profile Note (Coumadin Per Pharmacy*) 1 note FOLLOW UP .PER PHARMACY PROTOC [facility] PRN Reason: Protocol Trazodone HCl (Desyrel Tab*) 100 mg PO BEDTIME [facility] Last Admin: 02/13/17 22:05 Dose: 100 mg Vitamin B Complex/Vitamin E (Complex B-100*) 1 tab PO DAILY [facility] Last Admin: 02/14/17 08:46 Dose: 1 tab Warfarin Sodium (Coumadin Tab(*)) 3 mg PO 1700 [facility] Stop: 02/15/17 17:01 Last Admin: 02/14/17 16:26 Dose: 3 mg Vital Signs 02/13/17 02/13/17 02/13/17 20:00 22:06 23:28 Temperature 98.8 F Pulse Rate 60 Respiratory 16 16 16 Rate Blood Pressure 128/77 (mmHg) O2 Sat by Pulse 100 Oximetry 02/14/17 02/14/17 02/14/17 00:06 02:30 04:30 Temperature Pulse Rate Respiratory 20 20 16 Rate Blood Pressure (mmHg) O2 Sat by Pulse Oximetry 02/14/17 02/14/17 02/14/17 05:03 07:35 08:00 Temperature 97.5 F 97.7 F Pulse Rate 93 56 Respiratory 16 20 18 Rate Blood Pressure 126/77 134/77 (mmHg) O2 Sat by Pulse 96 100 Oximetry 02/14/17 02/14/17 02/14/17 08:46 09:03 10:46 Temperature Pulse Rate 60 Respiratory 18 16 Rate Blood Pressure (mmHg) O2 Sat by Pulse Oximetry 02/14/17 02/14/17 02/14/17 12:45 14:45 15:33 Temperature 97.6 F Pulse Rate 58 Respiratory 18 18 17 Rate Blood Pressure 144/87 (mmHg) O2 Sat by Pulse 100 Oximetry Oxygen Devices in Use Now: Nasal Cannula Appearance: Thin man lying in bed in NAD Eyes: No Scleral Icterus Ears/Nose/Mouth/Throat: Mucous Membranes Moist Neck: No Thyroid Enlargement, Masses Respiratory: Clear to Auscultation Cardiovascular: - - S1S2 liu Abdominal: NL Sounds; No Tenderness; No Distention, No Hepatosplenomegaly Lymphatic: No Cervical Adenopathy Extremities: No Edema Skin: No Rash or Ulcers Neurological: Alert and Oriented x 3 Result Diagrams: 02/13/17 13:58 02/13/17 11:15 Microbiology and Other Data: Microbiology 02/06/17 15:55 Nasal Screen MRSA (PCR)(PER) - Final Nasal Mrsa Positive Assess/Plan/Problems-Billing Assessment: IJ vein thrombosis (likely catheter related) in a 66 yo M with hx of ESRD on HD , AFib, CAD s/p CABG, cardiomyopathy, chronic pain, s/p MV repair and TV repair - Patient Problems (1) Internal jugular vein thrombosis Current Visit: Yes Status: Acute Code(s): I82.C19 - ACUTE EMBOLISM AND THROMBOSIS OF UNSP INTERNAL JUGULAR VEIN SNOMED Code(s): 247339535 Comment: INR still therapeutic > 24 hours. Can be discharged from this perspective. I believe the patient may be malingering at this point. I will be aggressive in getting him to ambulate and get him discharged. (2) Tinea corporis Current Visit: Yes Status: Acute Code(s): B35.4 - TINEA CORPORIS SNOMED Code(s): 76953021 Comment: Continue Clotrimazole (3) End stage renal failure on dialysis Current Visit: No Status: Chronic Priority: Medium Onset Date: 10/22/14 Code(s): N18.6 - END STAGE RENAL DISEASE; Z99.2 - DEPENDENCE ON RENAL DIALYSIS SNOMED Code(s): 553858423 Comment: Continue HD MWF. (4) Twitching Current Visit: Yes Status: Acute Code(s): R25.3 - FASCICULATION SNOMED Code(s): 989536451 Comment: Appears resolved (5) Hypertension Current Visit: No Status: Chronic Priority: High Code(s): I10 - ESSENTIAL (PRIMARY) HYPERTENSION SNOMED Code(s): 40486251 Comment: BPs borderline. Continue Hydralazine, Imdur, Coreg, Lisinopril and Amlodipine (6) DVT prophylaxis Current Visit: No Status: Acute Priority: Medium Onset Date: 10/22/14 Code(s): LUC6912 - SNOMED Code(s): 956699146 Comment: Coumadin Status and Disposition: Patient is refusing every effort to discharge him. Will make every effort to discharge him as he is no longer benefitting from hospitalization.
[2017-02-14] MEDS: traZODone TAB* 50 MG TAB PO SCH (21:25)
[2017-02-14] MEDS: oxyCODONE TAB* 5 MG TAB PO PRN (21:26)
[2017-02-15] MEDS: oxyCODONE TAB* 5 MG TAB PO PRN (05:50)
[2017-02-15] MEDS: Gabapentin CAP(*) 300 MG PO SCH ×3 (09:23→20:42)
[2017-02-15] MEDS: Pancrelipase CAP* 5,000 UNITS CAP PO SCH ×4 (09:24→20:43)
[2017-02-15] MEDS: Vitamin B Complex TAB PO SCH (09:24)
[2017-02-15] MEDS: Citalopram TAB* 20 MG PO SCH (09:25)
[2017-02-15] MEDS: Docusate CAP* 100 MG PO SCH (09:25)
[2017-02-15] MEDS: Folic Acid TAB* 1 MG PO SCH (09:25)
[2017-02-15] MEDS: Omeprazole CAP* 20 MG PO SCH ×2 (09:26→20:41)
[2017-02-15] MEDS: Lisinopril TAB* 10 MG PO SCH (09:27)
[2017-02-15] MEDS: Atorvastatin* 10 MG TAB PO SCH (09:28)
[2017-02-15] MEDS: Carvedilol TAB* 25 MG PO SCH ×2 (09:28→16:58)
[2017-02-15] MEDS: Cinacalcet TAB* 30 MG PO SCH (09:28)
[2017-02-15] MEDS: amLODIPine TAB* 5 MG PO SCH (09:29)
[2017-02-15] MEDS: Clotrimazole 1% CREAM* 45 GM TOPICAL SCH ×2 (09:34→20:59)
[2017-02-15] MEDS: Moisturizing CREAM* 113 GM JAR TOPICAL SCH ×3 (09:35→20:59)
--- NOTE | 2017-02-15 14:44 | PN ---
Subjective Date of Service: 02/15/17 Interval History: Patient says pain too great for him to walk. Family History: Unchanged from Admission Social History: Unchanged from Admission Past Medical History: Unchanged from Admission Objective Active Medications: Acetaminophen (Tylenol Tab*) 650 mg PO Q8HR PRN PRN Reason: PAIN Albuterol (Ventolin Hfa Inhaler*) 2 puff INH Q4H PRN PRN Reason: SHORTNESS OF BREATH Amlodipine Besylate (Norvasc Tab*) 10 mg PO DAILY [facility] Last Admin: 02/15/17 09:29 Dose: 10 mg Atorvastatin Calcium (Lipitor*) 5 mg PO DAILY [facility] Last Admin: 02/15/17 09:28 Dose: 5 mg Carvedilol (Coreg Tab*) 25 mg PO BID WITH MEALS [facility] Last Admin: 02/15/17 09:28 Dose: 25 mg Cinacalcet (Sensipar Tab*) 30 mg PO DAILY [facility] Last Admin: 02/15/17 09:28 Dose: 30 mg Citalopram Hydrobromide (Celexa Tab*) 20 mg PO DAILY [facility] Last Admin: 02/15/17 09:25 Dose: 20 mg Clotrimazole (Clotrimazole 1%*) 1 applic TOPICAL BID [facility] Last Admin: 02/15/17 09:34 Dose: 1 applic Diphenhydramine HCl (Benadryl Po*) 50 mg PO DAILY PRN PRN Reason: Allergy Symptoms Last Admin: 02/10/17 20:43 Dose: 50 mg Diphenhydramine HCl (Benadryl Po*) 25 mg PO DAILY PRN PRN Reason: ITCHING Last Admin: 02/14/17 02:30 Dose: 25 mg Docusate Sodium (Colace Cap*) 100 mg PO DAILY [facility] Last Admin: 02/15/17 09:25 Dose: 100 mg Folic Acid (Folvite Tab*) 0.5 mg PO DAILY [facility] Last Admin: 02/15/17 09:25 Dose: 0.5 mg Gabapentin (Neurontin Cap(*)) 600 mg PO TID [facility] Last Admin: 02/15/17 14:12 Dose: 600 mg Labetalol HCl (Trandate Iv*) 10 mg IV PUSH Q6H PRN PRN Reason: SBP > 180 Last Admin: 02/06/17 17:55 Dose: 10 mg Lisinopril (Prinivil Tab*) 10 mg PO DAILY [facility] Last Admin: 02/15/17 09:27 Dose: 10 mg Multi-Ingredient Ointment (Hydrocerin*) 1 applic TOPICAL TID [facility] Last Admin: 02/15/17 14:14 Dose: 1 applic Nitroglycerin (Nitroglycerin Tab 0.4 Mg*) 0.4 mg SL Q5M PRN PRN Reason: PAIN - CHEST Omeprazole (Prilosec Cap*) 40 mg PO BID [facility] Last Admin: 02/15/17 09:26 Dose: 40 mg Ondansetron HCl (Zofran Inj*) 4 mg IV Q4H PRN PRN Reason: NAUSEA Last Admin: 02/09/17 01:53 Dose: 4 mg Oxycodone HCl (Roxycodone Tab*) 15 mg PO Q4H PRN PRN Reason: PAIN Last Admin: 02/15/17 05:50 Dose: 15 mg Pancrelipase (Zenpep Delayed Cap*) 10,000 units PO QID ACHS [facility] Last Admin: 02/15/17 12:12 Dose: 10,000 units Pharmacy Profile Note (Coumadin Per Pharmacy*) 1 note FOLLOW UP .PER PHARMACY PROTOC [facility] PRN Reason: Protocol Trazodone HCl (Desyrel Tab*) 100 mg PO BEDTIME [facility] Last Admin: 02/14/17 21:25 Dose: 100 mg Vitamin B Complex/Vitamin E (Complex B-100*) 1 tab PO DAILY [facility] Last Admin: 02/15/17 09:24 Dose: 1 tab Warfarin Sodium (Coumadin Tab(*)) 3 mg PO 1700 [facility] Stop: 02/15/17 17:01 Last Admin: 02/14/17 16:26 Dose: 3 mg Vital Signs 02/14/17 02/14/17 02/14/17 14:45 15:33 20:00 Temperature 97.6 F Pulse Rate 58 Respiratory 18 17 22 Rate Blood Pressure 144/87 (mmHg) O2 Sat by Pulse 100 Oximetry 02/14/17 02/14/17 02/14/17 21:22 21:26 23:22 Temperature Pulse Rate Respiratory 22 22 16 Rate Blood Pressure (mmHg) O2 Sat by Pulse Oximetry 02/14/17 02/14/17 02/15/17 23:26 23:42 05:50 Temperature 97.7 F Pulse Rate 57 Respiratory 16 16 16 Rate Blood Pressure 133/83 (mmHg) O2 Sat by Pulse 100 Oximetry 02/15/17 02/15/17 02/15/17 07:50 07:56 08:00 Temperature 98.4 F Pulse Rate 57 Respiratory 16 18 Rate Blood Pressure 117/73 (mmHg) O2 Sat by Pulse 100 Oximetry 02/15/17 02/15/17 09:23 14:12 Temperature Pulse Rate Respiratory 18 20 Rate Blood Pressure (mmHg) O2 Sat by Pulse Oximetry Oxygen Devices in Use Now: Nasal Cannula Appearance: Thin gentleman sitting up in bed in NAD Eyes: No Scleral Icterus Ears/Nose/Mouth/Throat: Mucous Membranes Moist Neck: No Thyroid Enlargement, Masses Respiratory: Clear to Auscultation Cardiovascular: - - S12S2 liu Abdominal: NL Sounds; No Tenderness; No Distention, No Hepatosplenomegaly Lymphatic: No Cervical Adenopathy Extremities: No Clubbing, Cyanosis Skin: No Rash or Ulcers Neurological: Alert and Oriented x 3 Result Diagrams: 02/13/17 13:58 02/13/17 11:15 Microbiology and Other Data: Microbiology 02/06/17 15:55 Nasal Screen MRSA (PCR)(PER) - Final Nasal Mrsa Positive Assess/Plan/Problems-Billing Assessment: IJ vein thrombosis (likely catheter related) in a 66 yo M with hx of ESRD on HD , AFib, CAD s/p CABG, cardiomyopathy, chronic pain, s/p MV repair and TV repair - Patient Problems (1) Internal jugular vein thrombosis Current Visit: Yes Status: Acute Code(s): I82.C19 - ACUTE EMBOLISM AND THROMBOSIS OF UNSP INTERNAL JUGULAR VEIN SNOMED Code(s): 310596204 Comment: INR therapeutic. Can be discharged from this perspective. I believe the patient may be malingering at this point. I will be aggressive in getting him to ambulate and get him discharged. He has agreed to go to SNF tomorrow and will dc him to [facility]. (2) Tinea corporis Current Visit: Yes Status: Acute Code(s): B35.4 - TINEA CORPORIS SNOMED Code(s): 39303891 Comment: Continue Clotrimazole (3) End stage renal failure on dialysis Current Visit: No Status: Chronic Priority: Medium Onset Date: 10/22/14 Code(s): N18.6 - END STAGE RENAL DISEASE; Z99.2 - DEPENDENCE ON RENAL DIALYSIS SNOMED Code(s): 598251401 Comment: Continue HD MWF. (4) Twitching Current Visit: Yes Status: Acute Code(s): R25.3 - FASCICULATION SNOMED Code(s): 536961732 Comment: Appears resolved (5) Hypertension Current Visit: No Status: Chronic Priority: High Code(s): I10 - ESSENTIAL (PRIMARY) HYPERTENSION SNOMED Code(s): 70555350 Comment: BPs adeqwuate today. Continue Hydralazine, Imdur, Coreg, Lisinopril and Amlodipine (6) DVT prophylaxis Current Visit: No Status: Acute Priority: Medium Onset Date: 10/22/14 Code(s): DZS1331 - SNOMED Code(s): 697040804 Comment: Coumadin Status and Disposition: Patient is refusing every effort to discharge him. Will make every effort to discharge him as he is no longer benefitting from hospitalization.
[2017-02-15] MEDS: Warfarin TAB(*) 3 MG PO SCH (16:58)
[2017-02-15] MEDS: traZODone TAB* 50 MG TAB PO SCH (20:41)
[2017-02-16] MEDS: oxyCODONE TAB* 5 MG TAB PO PRN ×2 (07:16→17:03)
[2017-02-16] MEDS: Omeprazole CAP* 20 MG PO SCH ×2 (08:37→20:52)
[2017-02-16] MEDS: Pancrelipase CAP* 5,000 UNITS CAP PO SCH ×4 (08:38→20:53)
[2017-02-16] MEDS: Gabapentin CAP(*) 300 MG PO SCH ×3 (08:38→20:51)
[2017-02-16] MEDS ORDERED: Heparin DIALYSIS ONLY(*) 1,000 UNITS/ML VIAL DIALYSIS ONE (10:00)
[2017-02-16] MEDS ORDERED: Epoetin Alfa* 10,000 UNITS/ML VIAL IV ONE (10:00)
[2017-02-16] MEDS: Moisturizing CREAM* 113 GM JAR TOPICAL SCH ×3 (12:00→20:50)
[2017-02-16] MEDS: Carvedilol TAB* 25 MG PO SCH ×2 (12:34→17:03)
[2017-02-16] MEDS: Lisinopril TAB* 10 MG PO SCH (12:34)
[2017-02-16] MEDS: amLODIPine TAB* 5 MG PO SCH (12:34)
[2017-02-16] MEDS: Docusate CAP* 100 MG PO SCH (12:37)
[2017-02-16] MEDS: Cinacalcet TAB* 30 MG PO SCH (12:37)
[2017-02-16] MEDS: Citalopram TAB* 20 MG PO SCH (12:37)
[2017-02-16] MEDS: Vitamin B Complex TAB PO SCH (12:37)
[2017-02-16] MEDS: Atorvastatin* 10 MG TAB PO SCH (12:38)
[2017-02-16] MEDS: Folic Acid TAB* 1 MG PO SCH (12:39)
[2017-02-16] MEDS: Clotrimazole 1% CREAM* 45 GM TOPICAL SCH ×2 (12:41→20:49)
--- NOTE | 2017-02-16 16:29 | PN ---
Subjective Date of Service: 02/16/17 Interval History: Patient says his legs still shake. Says they are painful too. Family History: Unchanged from Admission Social History: Unchanged from Admission Past Medical History: Unchanged from Admission Objective Active Medications: Acetaminophen (Tylenol Tab*) 650 mg PO Q8HR PRN PRN Reason: PAIN Albuterol (Ventolin Hfa Inhaler*) 2 puff INH Q4H PRN PRN Reason: SHORTNESS OF BREATH Amlodipine Besylate (Norvasc Tab*) 10 mg PO DAILY [facility] Last Admin: 02/16/17 12:34 Dose: 10 mg Atorvastatin Calcium (Lipitor*) 5 mg PO DAILY [facility] Last Admin: 02/16/17 12:38 Dose: 5 mg Carvedilol (Coreg Tab*) 25 mg PO BID WITH MEALS [facility] Last Admin: 02/16/17 12:34 Dose: 25 mg Cinacalcet (Sensipar Tab*) 30 mg PO DAILY [facility] Last Admin: 02/16/17 12:37 Dose: 30 mg Citalopram Hydrobromide (Celexa Tab*) 20 mg PO DAILY [facility] Last Admin: 02/16/17 12:37 Dose: 20 mg Clotrimazole (Clotrimazole 1%*) 1 applic TOPICAL BID [facility] Last Admin: 02/16/17 12:41 Dose: 1 applic Diphenhydramine HCl (Benadryl Po*) 50 mg PO DAILY PRN PRN Reason: Allergy Symptoms Last Admin: 02/10/17 20:43 Dose: 50 mg Diphenhydramine HCl (Benadryl Po*) 25 mg PO DAILY PRN PRN Reason: ITCHING Last Admin: 02/14/17 02:30 Dose: 25 mg Docusate Sodium (Colace Cap*) 100 mg PO DAILY [facility] Last Admin: 02/16/17 12:37 Dose: 100 mg Folic Acid (Folvite Tab*) 0.5 mg PO DAILY [facility] Last Admin: 02/16/17 12:39 Dose: 0.5 mg Gabapentin (Neurontin Cap(*)) 600 mg PO TID [facility] Last Admin: 02/16/17 14:13 Dose: Not Given Labetalol HCl (Trandate Iv*) 10 mg IV PUSH Q6H PRN PRN Reason: SBP > 180 Last Admin: 02/06/17 17:55 Dose: 10 mg Lisinopril (Prinivil Tab*) 10 mg PO DAILY [facility] Last Admin: 02/16/17 12:34 Dose: 10 mg Multi-Ingredient Ointment (Hydrocerin*) 1 applic TOPICAL TID [facility] Last Admin: 02/16/17 14:29 Dose: 1 applic Nitroglycerin (Nitroglycerin Tab 0.4 Mg*) 0.4 mg SL Q5M PRN PRN Reason: PAIN - CHEST Sucroferric Oxyhydroxide [ Velphoro] 2,000 Mg 2,000 mg PO [facility] Omeprazole (Prilosec Cap*) 40 mg PO BID [facility] Last Admin: 02/16/17 08:37 Dose: 40 mg Ondansetron HCl (Zofran Inj*) 4 mg IV Q4H PRN PRN Reason: NAUSEA Last Admin: 02/09/17 01:53 Dose: 4 mg Oxycodone HCl (Roxycodone Tab*) 15 mg PO Q4H PRN PRN Reason: PAIN Last Admin: 02/16/17 07:16 Dose: 15 mg Pancrelipase (Zenpep Delayed Cap*) 10,000 units PO QID ACHS [facility] Last Admin: 02/16/17 12:36 Dose: 10,000 units Pharmacy Profile Note (Coumadin Per Pharmacy*) 1 note FOLLOW UP .PER PHARMACY PROTOC [facility] PRN Reason: Protocol Trazodone HCl (Desyrel Tab*) 100 mg PO BEDTIME [facility] Last Admin: 02/15/17 20:41 Dose: 100 mg Vitamin B Complex/Vitamin E (Complex B-100*) 1 tab PO DAILY [facility] Last Admin: 02/16/17 12:37 Dose: 1 tab Warfarin Sodium (Coumadin Tab(*)) 3 mg PO DAILY@1700 [facility] Stop: 02/17/17 23:59 Vital Signs 02/15/17 02/15/17 02/15/17 20:00 20:42 23:48 Temperature 97.1 F Pulse Rate 61 Respiratory 16 14 16 Rate Blood Pressure 156/83 (mmHg) O2 Sat by Pulse 98 Oximetry 02/16/17 02/16/17 02/16/17 07:16 07:58 08:06 Temperature 98.1 F Pulse Rate 52 Respiratory 16 18 16 Rate Blood Pressure 136/75 (mmHg) O2 Sat by Pulse 100 Oximetry 02/16/17 02/16/17 08:38 12:38 Temperature Pulse Rate Respiratory 16 16 Rate Blood Pressure (mmHg) O2 Sat by Pulse Oximetry Oxygen Devices in Use Now: Nasal Cannula Appearance: Thin man lying in bed in NAD Eyes: No Scleral Icterus Ears/Nose/Mouth/Throat: NL Teeth, Lips, Gums, Mucous Membranes Moist Neck: No Thyroid Enlargement, Masses Respiratory: Clear to Auscultation Cardiovascular: - - S1S2 liu Abdominal: NL Sounds; No Tenderness; No Distention, No Hepatosplenomegaly Lymphatic: No Cervical Adenopathy Extremities: No Clubbing, Cyanosis Skin: No Rash or Ulcers Neurological: Alert and Oriented x 3 Result Diagrams: 02/13/17 13:58 02/13/17 11:15 Microbiology and Other Data: Microbiology 02/06/17 15:55 Nasal Screen MRSA (PCR)(PER) - Final Nasal Mrsa Positive Assess/Plan/Problems-Billing Assessment: IJ vein thrombosis (likely catheter related) in a 66 yo M with hx of ESRD on HD , AFib, CAD s/p CABG, cardiomyopathy, chronic pain, s/p MV repair and TV repair - Patient Problems (1) Internal jugular vein thrombosis Current Visit: Yes Status: Acute Code(s): I82.C19 - ACUTE EMBOLISM AND THROMBOSIS OF UNSP INTERNAL JUGULAR VEIN SNOMED Code(s): 908333619 Comment: INR therapeutic. Can be discharged from this perspective. It is unclear if the patient may be malingering at this point. He has agreed to go to SNF tomorrow and will dc him to [facility]. (2) Tinea corporis Current Visit: Yes Status: Acute Code(s): B35.4 - TINEA CORPORIS SNOMED Code(s): 77656563 Comment: Continue Clotrimazole (3) End stage renal failure on dialysis Current Visit: No Status: Chronic Priority: Medium Onset Date: 10/22/14 Code(s): N18.6 - END STAGE RENAL DISEASE; Z99.2 - DEPENDENCE ON RENAL DIALYSIS SNOMED Code(s): 162735779 Comment: Continue HD MWF. (4) Twitching Current Visit: Yes Status: Acute Code(s): R25.3 - FASCICULATION SNOMED Code(s): 966200401 Comment: Appears resolved (5) Hypertension Current Visit: No Status: Chronic Priority: High Code(s): I10 - ESSENTIAL (PRIMARY) HYPERTENSION SNOMED Code(s): 48708465 Comment: BPs adequate today. Continue Hydralazine, Imdur, Coreg, Lisinopril and Amlodipine (6) DVT prophylaxis Current Visit: No Status: Acute Priority: Medium Onset Date: 10/22/14 Code(s): GTQ0907 - SNOMED Code(s): 664506055 Comment: Coumadin Status and Disposition: Patient is refusing every effort to discharge him. Will make every effort to discharge him as he is no longer benefitting from hospitalization.
[2017-02-16] MEDS: SUCROFERRIC OXYHYDROXIDE PO SCH (16:55)
[2017-02-16] MEDS: Warfarin TAB(*) 3 MG PO SCH (17:03)
[2017-02-16] MEDS: traZODone TAB* 50 MG TAB PO SCH (20:52)
[2017-02-17] MEDS: oxyCODONE TAB* 5 MG TAB PO PRN ×3 (05:26→13:50)
[2017-02-17] MEDS: SUCROFERRIC OXYHYDROXIDE PO SCH ×2 (07:42→11:05)
[2017-02-17] MEDS: Vitamin B Complex TAB PO SCH (08:48)
[2017-02-17] MEDS: Pancrelipase CAP* 5,000 UNITS CAP PO SCH ×4 (08:48→21:09)
[2017-02-17] MEDS: Cinacalcet TAB* 30 MG PO SCH (08:48)
[2017-02-17] MEDS: Citalopram TAB* 20 MG PO SCH (08:49)
[2017-02-17] MEDS: Gabapentin CAP(*) 300 MG PO SCH ×3 (08:49→21:08)
[2017-02-17] MEDS: Lisinopril TAB* 10 MG PO SCH (08:52)
[2017-02-17] MEDS: Atorvastatin* 10 MG TAB PO SCH (08:53)
[2017-02-17] MEDS: Folic Acid TAB* 1 MG PO SCH (08:54)
[2017-02-17] MEDS: Omeprazole CAP* 20 MG PO SCH ×2 (08:55→21:09)
[2017-02-17] MEDS: Docusate CAP* 100 MG PO SCH (08:56)
[2017-02-17] MEDS: amLODIPine TAB* 5 MG PO SCH (08:57)
[2017-02-17] MEDS: Carvedilol TAB* 25 MG PO SCH ×2 (08:57→17:14)
[2017-02-17] MEDS: Clotrimazole 1% CREAM* 45 GM TOPICAL SCH ×2 (08:58→21:10)
[2017-02-17] MEDS: Moisturizing CREAM* 113 GM JAR TOPICAL SCH ×3 (08:58→21:10)
[2017-02-17 10:26] LABS: Calcium 8.9 mg/dL (8.6-10.3); Phosphorus 4.8 mg/dL (2.5-5.0)
[2017-02-17] MEDS: Ondansetron INJ* 2 MG/ML VIAL IV PRN (11:17)
[2017-02-17] MEDS: Warfarin TAB(*) 3 MG PO SCH (17:15)
[2017-02-17] MEDS: Calcium Acetate CAP* 667 MG PO SCH (17:17)
[2017-02-17] MEDS ORDERED: Naloxone* 0.4 MG/ML 1 ML VIAL IV PUSH ONE ×2 (20:42→20:54)
--- NOTE | 2017-02-17 20:44 | PN ---
Progress Note - Progress Note Note: Paged by RN for patient with RR: 6 and HR: low 40s.. Concern that he may have gotten extra narcotics from a visitor today. Awakes to tactile stimuli. Will give a dose of narcan and hold any further narcotics. Will follow up.
[2017-02-17] MEDS ORDERED: Naloxone* 0.4 MG/ML 1 ML VIAL ONE (20:47)
[2017-02-17] MEDS: traZODone TAB* 50 MG TAB PO SCH (21:10)
[2017-02-18] MEDS ORDERED: Naloxone* 0.4 MG/ML 1 ML VIAL IV PUSH ONE (00:58)
[2017-02-18 06:36] LABS: Hematocrit 33 % (42-52); Hemoglobin 10.6 g/dl (14.0-18.0); Mean Platelet Volume 8 um3 (7.4-10.4)
--- NOTE | 2017-02-18 07:41 | DS ---
DISCHARGE SUMMARY: DATE OF ADMISSION: 02/06/17 DATE OF DISCHARGE: 02/18/17 ADMISSION DIAGNOSES: 1. Internal jugular vein thrombosis. 2. Hypertension. 3. End-stage renal disease. DISCHARGE DIAGNOSES: 1. Internal jugular vein thrombosis. 2. Hypertension. 3. End-stage renal disease. 4. Twitching and leg weakness. HISTORY OF PRESENT ILLNESS: The patient is a 66-year-old gentleman who presented to [facility] with a chief complaint of chest pain, abdominal pain. Please see H and P for further details. The patient was found to have internal jugular vein thrombosis. The patient was started on heparin and Coumadin. The patient needed to be on that until his INR became therapeutic. However, the patient suffered from increased twitching and spasms while here. It was thought to be likely secondary to morphine. Morphine was discontinued. However, he still had some weakness and spasming in his legs. Again, it was unclear as to the reason for that. His electrolytes were not significantly different from prior results. He was off of his phosphate binders for a while, but they were restarted and again his calcium and phosphorus were not significantly different from past numbers. The patient did receive physical therapy and did improve some with that. Because the patient did require physical therapy, he has agreed to go to short-term rehab to get stronger before he can be discharged to home. It should be noted there was some concern that the patient had a bottle of oxycodone with 75 tablets and that was filled by a family member and brought to his room, and apparently also 75 tablets were gone within a day. The patient claims to have taken all 75 tablets, which seems unlikely as he was breathing, but there was also a wad of high right next to the bottle. It is suspected, although it cannot proven, that he may have been selling the medications and this should be monitored while in the other facility. PHYSICAL EXAM ON THE DATE OF DISCHARGE: Temperature 98.3 degrees, heart rate 60 beats per minute, respiratory rate 16 breaths per minute, pulse ox 99% and blood pressure 129/73. HEENT: Normocephalic, atraumatic. Pupils equal, round , and reactive to light. Moist mucous membranes. Neck: Supple. No JVD, bruits, palpable thyroid, or lymphadenopathy. Chest: Clear to auscultation and percussion bilaterally. Cardiovascular: S1 and S2 appreciated. Abdominal exam: Positive bowel sounds in all 4 quadrants. Soft, nontender, nondistended. Extremities: No cyanosis, clubbing or edema. +2 pulses bilaterally. Neuro: Alert and oriented x3. Moves all extremities. Skin: No rashes or abnormalities. STUDIES DONE WHILE IN THE HOSPITAL: 1. Chest x-ray 02/06/17, impression: Small left pleural effusion with linear atelectasis versus pleural parenchymal scarring of the left lung base. 2. Chest, abdomen and pelvic CT 02/06/17, impression: Filling defect within the left internal jugular vein, concerning for left upper IJ thrombus. Borderline enlarged axillary lymph nodes. Enlargement of the pulmonary artery to the aorta, suggestive of arterial hypertension. Mild dilatation of small bowel loops proximally with decompressed bowel distally, suggestive of small bowel obstruction. Atherosclerosis. 3. Venous Doppler 02/06/17, impression: Jugular venous thrombosis as described. DISCHARGE MEDICATIONS: 1. Hydralazine 50 mg three times a day. 2. Imdur 60 mg daily. 3. Trazodone 100 mg at bedtime. 4. Zolpidem 10 mg at bedtime as needed. 5. Kionex 15 g daily as needed. 6. Simvastatin 10 mg daily. 7. Lorazepam 0.5 to 1 mg p.o. twice a day as needed. 8. B-complex one tablet daily. 9. Velphoro [?1000 or 4000?] mg p.o. a.c. 10. Oxycodone [?15 or 50?] mg every 4 hours as needed, maximum daily dose 90 mg. 11. Carvedilol 25 mg twice daily. 12. Benadryl 75 mg daily as needed. 13. Acetaminophen 650 mg every 8 hours as needed. 14. Lisinopril 10 mg daily. 15. Lexapro 10 mg daily. 16. Amlodipine 10 mg daily. 17. Pancrelipase 12,000 units 4 times a day with meals. 18. Docusate 100 mg daily. 19. Sensipar 30 mg daily. 20. Albuterol sulfate two puffs every 4 hours as needed. 21. Omeprazole 40 mg twice daily. 22. Nitroglycerin tablet 0.4 mg as needed for chest pain. 23. Gabapentin 600 mg three times a day. 24. Coumadin 3 mg daily. DISCHARGE PLAN: The patient will be discharged to rehab. The patient should get his Coumadin daily and have his INR checked within 3 to 5 days of arriving at the care home facility. The patient should receive physical therapy there until he is able to ambulate without difficulty. TIME SPENT: Over 45 minutes were spent on this discharge, more than 25 minutes of which were spent in direct [id number] contact with the patient in evaluation, physical exam, counseling, and coordination of care. CC: Dr. Octaviano Pratt; Dr. Jose Eduardo Dalal * [id number]/[facility] #: [id number] [facility]
[2017-02-18] MEDS: amLODIPine TAB* 5 MG PO SCH ×2 (07:48→08:03)
[2017-02-18] MEDS: Docusate CAP* 100 MG PO SCH (07:48)
[2017-02-18] MEDS: Cinacalcet TAB* 30 MG PO SCH (07:48)
[2017-02-18] MEDS: Carvedilol TAB* 25 MG PO SCH ×3 (07:48→18:07)
[2017-02-18] MEDS: Pancrelipase CAP* 5,000 UNITS CAP PO SCH ×4 (07:48→21:21)
[2017-02-18] MEDS: Gabapentin CAP(*) 300 MG PO SCH ×3 (07:48→21:20)
[2017-02-18] MEDS: Citalopram TAB* 20 MG PO SCH (07:48)
[2017-02-18] MEDS: Atorvastatin* 10 MG TAB PO SCH (07:49)
[2017-02-18] MEDS: Vitamin B Complex TAB PO SCH (07:49)
[2017-02-18] MEDS: Folic Acid TAB* 1 MG PO SCH (07:49)
[2017-02-18] MEDS: Omeprazole CAP* 20 MG PO SCH ×2 (07:49→21:21)
[2017-02-18] MEDS: Calcium Acetate CAP* 667 MG PO SCH ×3 (07:49→18:07)
[2017-02-18] MEDS: Clotrimazole 1% CREAM* 45 GM TOPICAL SCH ×2 (07:49→21:22)
[2017-02-18] MEDS: Moisturizing CREAM* 113 GM JAR TOPICAL SCH ×3 (07:49→21:22)
[2017-02-18] MEDS: Lisinopril TAB* 10 MG PO SCH ×2 (07:49→08:03)
[2017-02-18] MEDS ORDERED: Heparin DRIP 25,000 UNITS(*) 25,000 UNITS/500 ML BAG IV SCH (08:30)
[2017-02-18] MEDS ORDERED: Heparin VIAL(*) 5000 UNITS/ML VIAL (FIVE THOUSAND) IV SCH (09:00)
[2017-02-18 09:24] LABS: Hematocrit 35 % (42-52); Hemoglobin 11.1 g/dl (14.0-18.0); Mean Corpuscular HGB Conc 32 g/dl (31-36); Mean Corpuscular Hemoglobin 27 pg (27-31); Mean Corpuscular Volume 85 fL (80-94); Mean Platelet Volume 8 um3 (7.4-10.4); Red Cell Distribution Width 18 % (10.5-15); White Blood Count 4.9 10^3/ul (3.5-10.8)
[2017-02-18] MEDS ORDERED: Sodium Bicarbonate 8.4%* 50 ML SYRINGE IV ONE (09:35)
[2017-02-18 09:49] LABS: BUN/Creatinine Ratio 4.4 (8-20); Calcium 8.2 mg/dL (8.6-10.3); EGFR Non-African American 5.4 (>60)
[2017-02-18 09:58] LABS: Potassium 7.6 mmol/L (3.5-5.0)
--- NOTE | 2017-02-18 11:16 | PN ---
Subjective Date of Service: 02/18/17 Interval History: Pt is feeling much better now (~1030) compared to earlier (~0930). I was called urgently by the patient's nurse that his HR is low at 30 and he is hypotensive. The patient states he did not take any extra narcotics yesterday though he did require narcan last evening and there was concern that a visitor brought him in something. He stated that he would not lie to me about taking meds that were not prescribed to him through the hospital. He denies any lightheadedness, chest pain or SOB at this time. He does c/o leg pain. The patient was seen urgently in dialysis with Josette Piña RN and Dariusz Rader RN. Dr. Marques was contacted due to the patient having a pacer/ICD that did not appear to be pacing the patient at an adequate HR. Upon interrogation of the patient's ICD it was found he was set to pace at 40bpm however it appeared the ventricular pacing function was competing with likely a junctional escape rhythm. The pacing function was reprogrammed to pace at 70bpm and the patient was transferred to the ICU. Objective Active Medications: Acetaminophen (Tylenol Tab*) 650 mg PO Q8HR PRN PRN Reason: PAIN Albuterol (Ventolin Hfa Inhaler*) 2 puff INH Q4H PRN PRN Reason: SHORTNESS OF BREATH Amlodipine Besylate (Norvasc Tab*) 10 mg PO DAILY [facility] Last Admin: 02/18/17 08:03 Dose: Not Given Atorvastatin Calcium (Lipitor*) 5 mg PO DAILY [facility] Last Admin: 02/18/17 07:49 Dose: 5 mg Calcium Acetate (Phoslo Cap*) 1,334 mg PO TID WITH MEALS [facility] Last Admin: 02/18/17 07:49 Dose: 1,334 mg Carvedilol (Coreg Tab*) 25 mg PO BID WITH MEALS [facility] Last Admin: 02/18/17 08:03 Dose: Not Given Cinacalcet (Sensipar Tab*) 30 mg PO DAILY [facility] Last Admin: 02/18/17 07:48 Dose: 30 mg Citalopram Hydrobromide (Celexa Tab*) 20 mg PO DAILY [facility] Last Admin: 02/18/17 07:48 Dose: 20 mg Clotrimazole (Clotrimazole 1%*) 1 applic TOPICAL BID [facility] Last Admin: 02/18/17 07:49 Dose: 1 applic Diphenhydramine HCl (Benadryl Po*) 50 mg PO DAILY PRN PRN Reason: Allergy Symptoms Last Admin: 02/10/17 20:43 Dose: 50 mg Diphenhydramine HCl (Benadryl Po*) 25 mg PO DAILY PRN PRN Reason: ITCHING Last Admin: 02/14/17 02:30 Dose: 25 mg Docusate Sodium (Colace Cap*) 100 mg PO DAILY [facility] Last Admin: 02/18/17 07:48 Dose: 100 mg Folic Acid (Folvite Tab*) 0.5 mg PO DAILY [facility] Last Admin: 02/18/17 07:49 Dose: 0.5 mg Gabapentin (Neurontin Cap(*)) 600 mg PO TID [facility] Last Admin: 02/18/17 07:48 Dose: 600 mg Heparin Sodium (Porcine) (Heparin Vial(*)) 0 units IV .PER PROTOCOL [facility] PRN Reason: Protocol Heparin Sodium/Dextrose (Heparin Drip 25,000 Units(*)) 25,000 units in 500 mls @ 0 mls/hr IV .NO INITIAL BOLUS [facility]; As Directed PRN Reason: Protocol Last Admin: 02/18/17 10:47 Dose: 23 mls/hr Labetalol HCl (Trandate Iv*) 10 mg IV PUSH Q6H PRN PRN Reason: SBP > 180 Last Admin: 02/06/17 17:55 Dose: 10 mg Lisinopril (Prinivil Tab*) 10 mg PO DAILY [facility] Last Admin: 02/18/17 08:03 Dose: Not Given Multi-Ingredient Ointment (Hydrocerin*) 1 applic TOPICAL TID [facility] Last Admin: 02/18/17 07:49 Dose: 1 applic Nitroglycerin (Nitroglycerin Tab 0.4 Mg*) 0.4 mg SL Q5M PRN PRN Reason: PAIN - CHEST Omeprazole (Prilosec Cap*) 40 mg PO BID [facility] Last Admin: 02/18/17 07:49 Dose: 40 mg Ondansetron HCl (Zofran Inj*) 4 mg IV Q4H PRN PRN Reason: NAUSEA Last Admin: 02/17/17 11:17 Dose: 4 mg Oxycodone HCl (Roxycodone Tab*) 15 mg PO Q4H PRN PRN Reason: PAIN Last Admin: 02/17/17 13:50 Dose: 15 mg Pancrelipase (Zenpep Delayed Cap*) 10,000 units PO QID ACHS [facility] Last Admin: 02/18/17 07:48 Dose: 10,000 units Pharmacy Profile Note (Coumadin Per Pharmacy*) 1 note FOLLOW UP .PER PHARMACY PROTOC [facility] PRN Reason: Protocol Trazodone HCl (Desyrel Tab*) 100 mg PO BEDTIME [facility] Last Admin: 02/17/17 21:10 Dose: 100 mg Vitamin B Complex/Vitamin E (Complex B-100*) 1 tab PO DAILY [facility] Last Admin: 02/18/17 07:49 Dose: 1 tab Warfarin Sodium (Coumadin Tab(*)) 4 mg PO 1700 ONE Stop: 02/18/17 17:01 Vital Signs 02/17/17 02/17/17 02/17/17 11:35 13:50 13:52 Temperature Pulse Rate Respiratory 15 16 16 Rate Blood Pressure (mmHg) O2 Sat by Pulse Oximetry 02/17/17 02/17/17 02/17/17 15:50 15:54 17:16 Temperature 98.3 F Pulse Rate 50 60 Respiratory 12 18 Rate Blood Pressure 129/73 (mmHg) O2 Sat by Pulse 99 Oximetry 02/17/17 02/17/17 02/17/17 20:41 21:00 21:08 Temperature 97.4 F Pulse Rate 39 Respiratory 6 6 12 Rate Blood Pressure 114/55 (mmHg) O2 Sat by Pulse 100 Oximetry 02/17/17 02/17/17 02/18/17 22:24 23:08 00:38 Temperature 98.4 F Pulse Rate 36 Respiratory 12 14 12 Rate Blood Pressure 105/59 (mmHg) O2 Sat by Pulse 94 Oximetry 02/18/17 02/18/17 02/18/17 00:54 01:14 01:20 Temperature Pulse Rate 34 Respiratory 6 14 14 Rate Blood Pressure (mmHg) O2 Sat by Pulse Oximetry 02/18/17 02/18/17 02/18/17 01:54 03:32 06:25 Temperature 98.9 F Pulse Rate 71 Respiratory 12 12 14 Rate Blood Pressure 127/66 (mmHg) O2 Sat by Pulse 98 Oximetry 02/18/17 02/18/17 02/18/17 07:48 07:58 08:00 Temperature 98.3 F Pulse Rate 31 66 Respiratory 12 18 14 Rate Blood Pressure 97/55 (mmHg) O2 Sat by Pulse 100 Oximetry 02/18/17 02/18/17 02/18/17 09:57 09:58 10:00 Temperature 98.6 F Pulse Rate 58 58 60 Respiratory 15 19 18 Rate Blood Pressure 159/69 (mmHg) O2 Sat by Pulse 97 95 97 Oximetry 02/18/17 02/18/17 02/18/17 10:15 10:30 10:33 Temperature Pulse Rate 52 58 60 Respiratory 20 12 12 Rate Blood Pressure 160/80 172/142 170/134 (mmHg) O2 Sat by Pulse 93 95 95 Oximetry 02/18/17 02/18/17 10:45 11:00 Temperature Pulse Rate 61 66 Respiratory 15 18 Rate Blood Pressure 175/138 182/91 (mmHg) O2 Sat by Pulse 94 99 Oximetry Oxygen Devices in Use Now: Nasal Cannula - 2L-99% Appearance: Middle aged male lying in dialysis bed appearing lethargic upon initial evaluation, improved once transferredt to the ICU, NAD Eyes: No Scleral Icterus Ears/Nose/Mouth/Throat: Mucous Membranes Moist Respiratory: Symmetrical Chest Expansion and Respiratory Effort, Clear to Auscultation Cardiovascular: NL Sounds; No Murmurs; No JVD, No Edema, - - bradycardic but regular Abdominal: - - BS+ soft, ND, markedly tender to palpation in the lower quadrants (chronic per pt) Extremities: No Clubbing, Cyanosis Skin: No Rash or Ulcers, No Nodules or Sclerosis Neurological: Alert and Oriented x 3 Result Diagrams: 02/18/17 09:00 02/18/17 09:00 Microbiology and Other Data: Microbiology 02/06/17 15:55 Nasal Screen MRSA (PCR)(PER) - Final Nasal Mrsa Positive Assess/Plan/Problems-Billing Mr Templeton is a 66 yo M with a very complicated PMHx who was admitted on 02/06/17 with an internal jugular vein thrombosis (likely catheter related) and was ready for d/c to [facility] on 02/18/17 when he suddenly became hypotensive and bradycardic secondary to marked hyperkalemia. - Patient Problems (1) Acute hyperkalemia Current Visit: Yes Status: Acute Code(s): E87.5 - HYPERKALEMIA SNOMED Code (s): 7517214 Comment: Unclear what has driven the patient's K up. He is receiving dialysis which should help with the hyperkalemia. Repeat electrolytes this evening. I believe his hyperkalemia is what has led to the junctional escape rhytym. His K will need to be monitored very closely through the rest of this hospitalization and as an outpatient. (2) Bradycardia Current Visit: Yes Status: Acute Code(s): R00.1 - BRADYCARDIA, UNSPECIFIED SNOMED Code(s): 54506552 Comment: Pt appeared to be having competing rhythms-junctional escape and ventricular pacing. I am hopeful that when his K has corrected that he will not have the competing rhythms but have a normal sinus intrinsic rhythm. Continue to monitor. (3) Hypotension Current Visit: Yes Status: Acute Comment: Improved with increating the pacer rate to 70. Continue to hold oral antihypertensives for now. Will need to resume these once the BP starts to climb. (4) Internal jugular vein thrombosis Current Visit: Yes Status: Acute Code(s): I82.C19 - ACUTE EMBOLISM AND THROMBOSIS OF UNSP INTERNAL JUGULAR VEIN SNOMED Code(s): 201548996 Comment: INR is subtherapeutic today. Will restart heparin drip and recheck INR tomorrow. Pharmacy has been dosing the coumadin and will need to increase the dose for tonight. (5) Anemia Current Visit: Yes Status: Acute Code(s): D64.9 - ANEMIA, UNSPECIFIED SNOMED Code(s): 165234824 Comment: Chronic secondary to CKD. H/H is stable. Continue to follow. (6) Abdominal pain Current Visit: Yes Status: Acute Code(s): R10.9 - UNSPECIFIED ABDOMINAL PAIN SNOMED Code(s): 54719088 Comment: Chronic issue. Nothing to do at this time. (7) ESRD (end stage renal disease) on dialysis Current Visit: Yes Status: Chronic Code(s): N18.6 - END STAGE RENAL DISEASE ; Z99.2 - DEPENDENCE ON RENAL DIALYSIS SNOMED Code(s): 457024075 Comment: Continue MWF dialysis. (8) DVT prophylaxis Current Visit: Yes Status: Acute Onset Date: 10/22/14 Code(s): FJT6785 - SNOMED Code(s): 494902277 Comment: Coumadin/heparin drip (9) Full code status Current Visit: Yes Status: Acute Onset Date: 10/22/14 Code(s): Z78.9 - OTHER SPECIFIED HEALTH STATUS SNOMED Code(s): 756361550 Status and Disposition: .
--- NOTE | 2017-02-18 12:19 | PN ---
PROGRESS NOTE: DATE OF VISIT: DATE OF DICTATION: 02/18/17 HISTORY: I was notified by the dialysis nurse that Mr. Templeton's blood pressure was much lower than usual and his pulse was only 32. I came up to the dialysis room and the patient was awake and alert, although complaining of pain to his legs. I was unable to feel his pulse in his dialysis fistula and I could barely hear heart tones. The blood pressure apparently, however, was in the low 100 range according to the automated blood pressure cuff associated with the dialysis machine. He was able to respond to questions. He was not complaining of chest pain or shortness of breath. We notified Dr. Azevedo, who was in attendance; she asked Dr. Marques to come by. His pacer defibrillator was interrogated. He was pacing his heart at a rate of approximately 40. He had some [place] junctional beats as well. In anticipation of our needing to dialyze him, Dr. Marques increased his paced rate. Stat electrolytes are pending at this time. We intend to move him to the intensive care unit. I notified Dr. Angel who was in attendance as well. [id number]/[facility] #: [id number] MTDD
[2017-02-18] MEDS ORDERED: Warfarin TAB(*) 4 MG PO ONE (17:00)
[2017-02-18 19:05] LABS: Potassium 4.3 mmol/L (3.5-5.0)
[2017-02-18] MEDS: traZODone TAB* 50 MG TAB PO SCH (21:21)
[2017-02-19 04:30] LABS: Hematocrit 33 % (42-52); Hemoglobin 10.5 g/dl (14.0-18.0); Mean Corpuscular HGB Conc 32 g/dl (31-36); Mean Corpuscular Hemoglobin 27 pg (27-31); Mean Corpuscular Volume 84 fL (80-94); Mean Platelet Volume 8 um3 (7.4-10.4); Red Cell Distribution Width 18 % (10.5-15); White Blood Count 4.3 10^3/ul (3.5-10.8)
[2017-02-19 04:44] LABS: BUN/Creatinine Ratio 4.6 (8-20); Calcium 7.9 mg/dL (8.6-10.3); EGFR African American 10.3 (>60); Potassium 4.5 mmol/L (3.5-5.0)
--- NOTE | 2017-02-19 08:10 | PN ---
Subjective Date of Service: 02/19/17 Interval History: Pt is feeling well this AM. He states he was afraid he was not going to wake up this morning after the events of yesterday. He continues to have his chronic abdominal pain. He feels weak. Objective Active Medications: Acetaminophen (Tylenol Tab*) 650 mg PO Q8HR PRN PRN Reason: PAIN Albuterol (Ventolin Hfa Inhaler*) 2 puff INH Q4H PRN PRN Reason: SHORTNESS OF BREATH Amlodipine Besylate (Norvasc Tab*) 10 mg PO DAILY [facility] Last Admin: 02/18/17 08:03 Dose: Not Given Atorvastatin Calcium (Lipitor*) 5 mg PO DAILY [facility] Last Admin: 02/18/17 07:49 Dose: 5 mg Calcium Acetate (Phoslo Cap*) 1,334 mg PO TID WITH MEALS [facility] Last Admin: 02/18/17 18:07 Dose: 1,334 mg Carvedilol (Coreg Tab*) 25 mg PO BID WITH MEALS [facility] Last Admin: 02/18/17 18:07 Dose: 25 mg Cinacalcet (Sensipar Tab*) 30 mg PO DAILY [facility] Last Admin: 02/18/17 07:48 Dose: 30 mg Citalopram Hydrobromide (Celexa Tab*) 20 mg PO DAILY [facility] Last Admin: 02/18/17 07:48 Dose: 20 mg Clotrimazole (Clotrimazole 1%*) 1 applic TOPICAL BID [facility] Last Admin: 02/18/17 21:22 Dose: 1 applic Diphenhydramine HCl (Benadryl Po*) 50 mg PO DAILY PRN PRN Reason: Allergy Symptoms Last Admin: 02/10/17 20:43 Dose: 50 mg Diphenhydramine HCl (Benadryl Po*) 25 mg PO DAILY PRN PRN Reason: ITCHING Last Admin: 02/14/17 02:30 Dose: 25 mg Docusate Sodium (Colace Cap*) 100 mg PO DAILY [facility] Last Admin: 02/18/17 07:48 Dose: 100 mg Folic Acid (Folvite Tab*) 0.5 mg PO DAILY [facility] Last Admin: 02/18/17 07:49 Dose: 0.5 mg Gabapentin (Neurontin Cap(*)) 600 mg PO TID [facility] Last Admin: 02/18/17 21:20 Dose: 600 mg Labetalol HCl (Trandate Iv*) 10 mg IV PUSH Q6H PRN PRN Reason: SBP > 180 Last Admin: 02/06/17 17:55 Dose: 10 mg Lisinopril (Prinivil Tab*) 10 mg PO DAILY [facility] Last Admin: 02/18/17 08:03 Dose: Not Given Multi-Ingredient Ointment (Hydrocerin*) 1 applic TOPICAL TID [facility] Last Admin: 02/18/17 21:22 Dose: 1 applic Nitroglycerin (Nitroglycerin Tab 0.4 Mg*) 0.4 mg SL Q5M PRN PRN Reason: PAIN - CHEST Omeprazole (Prilosec Cap*) 40 mg PO BID [facility] Last Admin: 02/18/17 21:21 Dose: 40 mg Ondansetron HCl (Zofran Inj*) 4 mg IV Q4H PRN PRN Reason: NAUSEA Last Admin: 02/17/17 11:17 Dose: 4 mg Oxycodone HCl (Roxycodone Tab*) 15 mg PO Q4H PRN PRN Reason: PAIN Last Admin: 02/17/17 13:50 Dose: 15 mg Pancrelipase (Zenpep Delayed Cap*) 10,000 units PO QID ACHS [facility] Last Admin: 02/18/17 21:21 Dose: 10,000 units Pharmacy Profile Note (Coumadin Per Pharmacy*) 1 note FOLLOW UP .PER PHARMACY PROTOC [facility] PRN Reason: Protocol Trazodone HCl (Desyrel Tab*) 100 mg PO BEDTIME [facility] Last Admin: 02/18/17 21:21 Dose: 100 mg Vitamin B Complex/Vitamin E (Complex B-100*) 1 tab PO DAILY [facility] Last Admin: 02/18/17 07:49 Dose: 1 tab Vital Signs 02/18/17 02/18/17 02/18/17 07:58 08:00 09:57 Temperature 98.3 F Pulse Rate 31 66 58 Respiratory 18 14 15 Rate Blood Pressure 97/55 (mmHg) O2 Sat by Pulse 100 97 Oximetry 02/18/17 02/18/17 02/18/17 09:58 10:00 10:15 Temperature 98.6 F Pulse Rate 58 60 52 Respiratory 19 18 20 Rate Blood Pressure 159/69 160/80 (mmHg) O2 Sat by Pulse 95 97 93 Oximetry 02/18/17 02/18/17 02/18/17 10:30 10:33 10:45 Temperature Pulse Rate 58 60 61 Respiratory 12 12 15 Rate Blood Pressure 172/142 170/134 175/138 (mmHg) O2 Sat by Pulse 95 95 94 Oximetry 02/18/17 02/18/17 02/18/17 11:00 11:15 11:31 Temperature Pulse Rate 66 64 Respiratory 18 15 Rate Blood Pressure 182/91 181/78 168/133 (mmHg) O2 Sat by Pulse 99 96 Oximetry 02/18/17 02/18/17 02/18/17 11:45 12:00 12:15 Temperature Pulse Rate 65 64 66 Respiratory 15 15 13 Rate Blood Pressure 167/137 164/106 151/82 (mmHg) O2 Sat by Pulse 95 95 95 Oximetry 02/18/17 02/18/17 02/18/17 12:30 12:33 12:45 Temperature 98.1 F Pulse Rate 70 70 Respiratory 12 16 Rate Blood Pressure 174/78 168/135 (mmHg) O2 Sat by Pulse 95 96 Oximetry 02/18/17 02/18/17 02/18/17 13:00 13:15 13:30 Temperature Pulse Rate 70 71 70 Respiratory 13 12 11 Rate Blood Pressure 189/152 192/165 192/95 (mmHg) O2 Sat by Pulse 96 98 97 Oximetry 02/18/17 02/18/17 02/18/17 13:45 14:00 15:00 Temperature Pulse Rate 70 70 66 Respiratory 11 9 13 Rate Blood Pressure 193/101 196/96 195/103 (mmHg) O2 Sat by Pulse 96 98 97 Oximetry 02/18/17 02/18/17 02/18/17 16:00 16:35 17:00 Temperature 98.0 F Pulse Rate 71 65 69 Respiratory 15 18 18 Rate Blood Pressure 193/163 181/160 (mmHg) O2 Sat by Pulse 95 88 98 Oximetry 02/18/17 02/18/17 02/18/17 18:00 18:44 18:56 Temperature Pulse Rate 68 72 71 Respiratory 15 20 20 Rate Blood Pressure 174/137 172/104 (mmHg) O2 Sat by Pulse 95 95 96 Oximetry 02/18/17 02/18/17 02/18/17 19:00 19:51 20:00 Temperature 98.9 F Pulse Rate 68 71 Respiratory 18 16 Rate Blood Pressure 167/105 151/99 (mmHg) O2 Sat by Pulse 96 97 Oximetry 02/18/17 02/18/17 02/18/17 20:59 21:00 22:00 Temperature Pulse Rate 70 68 Respiratory 17 18 19 Rate Blood Pressure 126/88 (mmHg) O2 Sat by Pulse 98 97 Oximetry 02/18/17 02/18/17 02/19/17 23:00 23:56 00:00 Temperature Pulse Rate 68 67 68 Respiratory 11 16 12 Rate Blood Pressure 109/74 (mmHg) O2 Sat by Pulse 94 94 94 Oximetry 02/19/17 02/19/17 02/19/17 00:01 01:00 02:00 Temperature Pulse Rate 66 69 69 Respiratory 11 12 11 Rate Blood Pressure 121/80 120/78 113/79 (mmHg) O2 Sat by Pulse 94 93 93 Oximetry 02/19/17 02/19/17 02/19/17 03:00 04:00 05:00 Temperature 97.1 F Pulse Rate 70 68 69 Respiratory 17 11 11 Rate Blood Pressure 120/79 120/81 119/76 (mmHg) O2 Sat by Pulse 93 93 94 Oximetry 02/19/17 02/19/17 02/19/17 05:44 06:00 07:00 Temperature Pulse Rate 66 70 Respiratory 12 17 14 Rate Blood Pressure 132/79 138/92 (mmHg) O2 Sat by Pulse 90 96 Oximetry 02/19/17 07:17 Temperature 97.9 F Pulse Rate Respiratory Rate Blood Pressure (mmHg) O2 Sat by Pulse Oximetry Oxygen Devices in Use Now: Nasal Cannula - 2L-96% Appearance: Middle aged male sitting up in bed, NAD Eyes: No Scleral Icterus Ears/Nose/Mouth/Throat: Mucous Membranes Moist Respiratory: Symmetrical Chest Expansion and Respiratory Effort, Clear to Auscultation Cardiovascular: NL Sounds; No Murmurs; No JVD, RRR, No Edema Abdominal: - - BS+ soft, ND, diffusely tender (chronic) Extremities: No Clubbing, Cyanosis Skin: No Rash or Ulcers, No Nodules or Sclerosis Neurological: Alert and Oriented x 3 Result Diagrams: 02/19/17 04:15 02/19/17 04:15 Microbiology and Other Data: Microbiology 02/06/17 15:55 Nasal Screen MRSA (PCR)(PER) - Final Nasal Mrsa Positive Assess/Plan/Problems-Billing Mr Templeton is a 66 yo M with a very complicated PMHx who was admitted on 02/06/17 with an internal jugular vein thrombosis (likely catheter related) and was ready for d/c to [facility] on 02/18/17 when he suddenly became hypotensive and bradycardic secondary to marked hyperkalemia. - Patient Problems (1) Acute hyperkalemia Current Visit: Yes Status: Acute Code(s): E87.5 - HYPERKALEMIA SNOMED Code (s): 0239695 Comment: Resolved with dialysis. Unclear what drove up his K-? if related to low flow state secondary to oversedation the night before possibly secondary to narcotic use (he required narcan). Follow up level tomorrow AM. (2) Bradycardia Current Visit: Yes Status: Acute Code(s): R00.1 - BRADYCARDIA, UNSPECIFIED SNOMED Code(s): 98433758 Comment: Currently the patient is appearing to be paced at 70bpm (pacer set at 70 yesterday to improve BP so he could undergo dialysis to improve his K). I have been in touch with Dr. Messer who reprogram his pacer to his back up rate of 40 and see if he is having intrinsic beats. (3) Hypotension Current Visit: Yes Status: Acute Comment: Resolved with improved HR. Continue home medication regimen and monitor the BP. (4) Internal jugular vein thrombosis Current Visit: Yes Status: Acute Code(s): I82.C19 - ACUTE EMBOLISM AND THROMBOSIS OF UNSP INTERNAL JUGULAR VEIN SNOMED Code(s): 791760664 Comment: INR is again therapeutic. Will need to determine an appropriate dose of coumadin to go out on. Stop the heparin drip again now that he is therapeutic. (5) Anemia Current Visit: Yes Status: Acute Code(s): D64.9 - ANEMIA, UNSPECIFIED SNOMED Code(s): 472401530 Comment: Chronic secondary to CKD. H/H is stable. Continue to follow. (6) Abdominal pain Current Visit: Yes Status: Acute Code(s): R10.9 - UNSPECIFIED ABDOMINAL PAIN SNOMED Code(s): 45675748 Comment: Chronic issue. Nothing to do at this time. (7) ESRD (end stage renal disease) on dialysis Current Visit: Yes Status: Chronic Code(s): N18.6 - END STAGE RENAL DISEASE ; Z99.2 - DEPENDENCE ON RENAL DIALYSIS SNOMED Code(s): 896378552 Comment: Continue MWF dialysis. (8) DVT prophylaxis Current Visit: Yes Status: Acute Onset Date: 10/22/14 Code(s): UXL8565 - SNOMED Code(s): 415493294 Comment: Coumadin (9) Full code status Current Visit: Yes Status: Acute Onset Date: 10/22/14 Code(s): Z78.9 - OTHER SPECIFIED HEALTH STATUS SNOMED Code(s): 512247317 Status and Disposition: .
[2017-02-19] MEDS: Lanthanum CHEW TAB* 500 MG PO SCH ×3 (08:55→16:00)
[2017-02-19] MEDS: Pancrelipase CAP* 5,000 UNITS CAP PO SCH ×4 (08:56→21:58)
[2017-02-19] MEDS: Omeprazole CAP* 20 MG PO SCH ×2 (08:56→22:00)
[2017-02-19] MEDS: Atorvastatin* 10 MG TAB PO SCH (08:56)
[2017-02-19] MEDS: Lisinopril TAB* 10 MG PO SCH (08:56)
[2017-02-19] MEDS: Gabapentin CAP(*) 300 MG PO SCH ×3 (08:56→21:59)
[2017-02-19] MEDS: Cinacalcet TAB* 30 MG PO SCH (08:56)
[2017-02-19] MEDS: Vitamin B Complex TAB PO SCH (08:56)
[2017-02-19] MEDS: amLODIPine TAB* 5 MG PO SCH (08:56)
[2017-02-19] MEDS: Docusate CAP* 100 MG PO SCH (08:57)
[2017-02-19] MEDS: Carvedilol TAB* 25 MG PO SCH ×2 (08:57→16:00)
[2017-02-19] MEDS: Citalopram TAB* 20 MG PO SCH (08:57)
[2017-02-19] MEDS: Folic Acid TAB* 1 MG PO SCH (08:57)
[2017-02-19] MEDS: Clotrimazole 1% CREAM* 45 GM TOPICAL SCH ×2 (09:12→22:00)
[2017-02-19] MEDS: oxyCODONE TAB* 5 MG TAB PO PRN ×2 (10:28→22:14)
[2017-02-19] MEDS: Moisturizing CREAM* 113 GM JAR TOPICAL SCH ×3 (10:28→22:00)
[2017-02-19] MEDS ORDERED: Artificial Tears* 15 ML BTL BOTH EYES PRN (12:07)
[2017-02-19] MEDS: Calcium Acetate CAP* 667 MG PO SCH (12:54)
--- NOTE | 2017-02-19 16:34 | CARD ---
PROCEDURE NOTE: DATE OF PROCEDURE: 02/19/17 PROCEDURE DONE: Defibrillator programming. SURGEON: Jonna Marques MD The pacemaker has a Medtronic Visia AF, MRI compatible, single-chamber defibrillator of which the lo wer rate had been programmed to 70 beats a minute with hyperkalemia and bradycardia (potassium level 7.4). Following dialysis, his potassium levels normalized and his underlying rhythm restored and I was asked to reprogram it back to his prior lower pacing rate of 40 beats a minute. No other setti ngs were changed and he is currently back in his normal sinus rhythm. CONCLUSION: Reprogrammed defibrillator pacer setting from 70 beats a minute back to 40 beats a angie te. [id number]/[facility] #: [id number]
--- NOTE | 2017-02-19 16:43 | CARD ---
PROCEDURE NOTE: DATE OF PROCEDURE: 02/18/17 PROCEDURE PERFORMED: Defibrillator interrogation and reprogramming. INDICATION: Concern for noncapture and bradycardia in a dialysis patient with presumptive hyperkalemia. I was asked to check the patient's defibrillator urgently due to concerns for bradycardia as above. The patient has a Medtronic Visia AF, MRI , it is a single-chamber device and the lower rate is programmed at 40 beats a minute. The device was working. He was pacing at a rate of 40 beats a minute with occasional echo beats. At the request of the attending physician, Dr. Dalal, we increased the lower pacing rate to 70 beats a minute. Incidentally, his OptiVol index was low, no evidence of volume overload. CONCLUSION: Appropriate capture and appropriate rate of 40 beats a minute for a pacer rate in a single-chamber defibrillator, reprogrammed to 70 beats a minute at attending request in the setting of hyperkalemia. [id number]/[facility] #: [id number] MTDD
[2017-02-19] MEDS ORDERED: Warfarin TAB(*) 4 MG PO ONE (17:00)
[2017-02-19] MEDS: traZODone TAB* 50 MG TAB PO SCH (21:59)
[2017-02-20] MEDS ORDERED: Naloxone* 0.4 MG/ML 1 ML VIAL IV PUSH ONE ×2 (03:52→09:59)
[2017-02-20] MEDS ORDERED: oxyCODONE TAB* 5 MG TAB PO PRN (03:53)
--- NOTE | 2017-02-20 03:55 | PN ---
Progress Note - Progress Note Note: Patient again noted to be more somnolent with decrease RR of 8. Other vitals within normal limits. Received oxycodone at 2200. Will give dose of narcan, check morning labs now and lower his does of oxycodone from 15 mg to 10 mg.
[2017-02-20 04:37] LABS: Hematocrit 34 % (42-52); Hemoglobin 10.7 g/dl (14.0-18.0)
[2017-02-20 04:50] LABS: Potassium 5.5 mmol/L (3.5-5.0)
[2017-02-20 04:51] LABS: Calcium 8.1 mg/dL (8.6-10.3); EGFR African American 7.9 (>60); EGFR Non-African American 6.2 (>60); Magnesium 2.3 mg/dL (1.9-2.7)
[2017-02-20] MEDS: Omeprazole CAP* 20 MG PO SCH ×2 (08:09→20:33)
[2017-02-20] MEDS: Gabapentin CAP(*) 300 MG PO SCH ×3 (08:09→20:33)
[2017-02-20] MEDS: Carvedilol TAB* 25 MG PO SCH ×2 (08:09→17:29)
[2017-02-20] MEDS: Lanthanum CHEW TAB* 500 MG PO SCH ×3 (08:09→17:30)
[2017-02-20] MEDS: Pancrelipase CAP* 5,000 UNITS CAP PO SCH ×4 (08:09→20:32)
[2017-02-20] MEDS: Clotrimazole 1% CREAM* 45 GM TOPICAL SCH ×2 (08:17→20:37)
[2017-02-20] MEDS: Moisturizing CREAM* 113 GM JAR TOPICAL SCH ×3 (08:18→20:38)
--- NOTE | 2017-02-20 10:15 | PN ---
Subjective Date of Service: 02/20/17 Interval History: Pt was difficult to awaken per his nurse. When I evaluated the patient he awakened easily but promptly fell asleep. He is able (after a dose of narcan) to tell me that he did not sleep well last night. He denies any pain more than usual. Objective Active Medications: Acetaminophen (Tylenol Tab*) 650 mg PO Q8HR PRN PRN Reason: PAIN Albuterol (Ventolin Hfa Inhaler*) 2 puff INH Q4H PRN PRN Reason: SHORTNESS OF BREATH Amlodipine Besylate (Norvasc Tab*) 10 mg PO DAILY [facility] Last Admin: 02/19/17 08:56 Dose: 10 mg Atorvastatin Calcium (Lipitor*) 5 mg PO DAILY [facility] Last Admin: 02/19/17 08:56 Dose: 5 mg Carvedilol (Coreg Tab*) 25 mg PO BID WITH MEALS [facility] Last Admin: 02/20/17 08:09 Dose: 25 mg Cinacalcet (Sensipar Tab*) 30 mg PO DAILY [facility] Last Admin: 02/19/17 08:56 Dose: 30 mg Citalopram Hydrobromide (Celexa Tab*) 20 mg PO DAILY [facility] Last Admin: 02/19/17 08:57 Dose: 20 mg Clotrimazole (Clotrimazole 1%*) 1 applic TOPICAL BID [facility] Last Admin: 02/20/17 08:17 Dose: 1 applic Diphenhydramine HCl (Benadryl Po*) 50 mg PO DAILY PRN PRN Reason: Allergy Symptoms Last Admin: 02/10/17 20:43 Dose: 50 mg Diphenhydramine HCl (Benadryl Po*) 25 mg PO DAILY PRN PRN Reason: ITCHING Last Admin: 02/14/17 02:30 Dose: 25 mg Docusate Sodium (Colace Cap*) 100 mg PO DAILY [facility] Last Admin: 02/19/17 08:57 Dose: 100 mg Folic Acid (Folvite Tab*) 0.5 mg PO DAILY [facility] Last Admin: 02/19/17 08:57 Dose: 0.5 mg Gabapentin (Neurontin Cap(*)) 600 mg PO TID [facility] Last Admin: 02/20/17 08:09 Dose: 600 mg Lanthanum Carbonate (Fosrenol Chew Tab*) 500 mg PO TID WITH MEALS [facility] Last Admin: 02/20/17 08:09 Dose: 500 mg Lisinopril (Prinivil Tab*) 10 mg PO DAILY [facility] Last Admin: 02/19/17 08:56 Dose: 10 mg Multi-Ingredient Ointment (Hydrocerin*) 1 applic TOPICAL TID [facility] Last Admin: 02/20/17 08:18 Dose: 1 applic Nitroglycerin (Nitroglycerin Tab 0.4 Mg*) 0.4 mg SL Q5M PRN PRN Reason: PAIN - CHEST Omeprazole (Prilosec Cap*) 40 mg PO BID [facility] Last Admin: 02/20/17 08:09 Dose: 40 mg Ondansetron HCl (Zofran Inj*) 4 mg IV Q4H PRN PRN Reason: NAUSEA Last Admin: 02/17/17 11:17 Dose: 4 mg Oxycodone HCl (Roxycodone Tab*) 10 mg PO Q4H PRN PRN Reason: PAIN Pancrelipase (Zenpep Delayed Cap*) 10,000 units PO QID ACHS [facility] Last Admin: 02/20/17 08:09 Dose: 10,000 units Pharmacy Profile Note (Coumadin Per Pharmacy*) 1 note FOLLOW UP .PER PHARMACY PROTOC [facility] PRN Reason: Protocol Polyvinyl Alcohol (Polyvinyl Alcohol 1.4% Opth*) 2 drop BOTH EYES Q2H PRN PRN Reason: DRY EYE Last Admin: 02/19/17 12:52 Dose: 2 drop Trazodone HCl (Desyrel Tab*) 100 mg PO BEDTIME [facility] Last Admin: 02/19/17 21:59 Dose: 100 mg Vitamin B Complex/Vitamin E (Complex B-100*) 1 tab PO DAILY [facility] Last Admin: 02/19/17 08:56 Dose: 1 tab Vital Signs 02/19/17 02/19/17 02/19/17 11:00 11:37 12:51 Temperature 98.0 F Pulse Rate 61 Respiratory 11 16 16 Rate Blood Pressure 144/86 (mmHg) O2 Sat by Pulse 100 Oximetry 02/19/17 02/19/17 02/19/17 13:59 20:00 21:55 Temperature 98.2 F 97.1 F Pulse Rate 59 57 Respiratory 16 12 12 Rate Blood Pressure 138/77 136/75 (mmHg) O2 Sat by Pulse 98 100 Oximetry 02/19/17 02/19/1702/19/17 21:59 22:14 23:59 Temperature Pulse Rate Respiratory 12 12 10 Rate Blood Pressure (mmHg) O2 Sat by Pulse Oximetry 02/20/17 02/20/17 02/20/17 00:14 00:25 03:51 Temperature 97.8 F 98.8 F Pulse Rate 58 61 Respiratory 10 12 8 Rate Blood Pressure 153/63 130/83 (mmHg) O2 Sat by Pulse 97 100 Oximetry 02/20/17 02/20/17 02/20/17 04:07 04:56 06:10 Temperature 98.1 F Pulse Rate 61 62 Respiratory 16 11 16 Rate Blood Pressure 139/77 (mmHg) O2 Sat by Pulse 91 Oximetry 02/20/17 02/20/17 08:00 08:09 Temperature Pulse Rate Respiratory 14 14 Rate Blood Pressure (mmHg) O2 Sat by Pulse Oximetry Oxygen Devices in Use Now: Nasal Cannula - 3L-91% Appearance: Middle aged male sitting up in bed, sleeping, awakens to voice, but promptly falls back asleep. Eyes: No Scleral Icterus Ears/Nose/Mouth/Throat: Mucous Membranes Moist Respiratory: Symmetrical Chest Expansion and Respiratory Effort, Clear to Auscultation - anteriorly Cardiovascular: NL Sounds; No Murmurs; No JVD, - - bradycardic, no edema of legs , + non pitting edema of the R UE Abdominal: - - BS+, ND Extremities: No Clubbing, Cyanosis Skin: No Rash or Ulcers, No Nodules or Sclerosis Neurological: - - lethargic, improves after dose of narcan Result Diagrams: 02/20/17 04:30 02/20/17 04:30 Microbiology and Other Data: Microbiology 02/06/17 15:55 Nasal Screen MRSA (PCR)(PER) - Final Nasal Mrsa Positive Assess/Plan/Problems-Billing Mr Templeton is a 66 yo M with a very complicated PMHx who was admitted on 02/06/17 with an internal jugular vein thrombosis (likely catheter related) and was ready for d/c to [facility] on 02/18/17 when he suddenly became hypotensive and bradycardic secondary to marked hyperkalemia. - Patient Problems (1) Acute hyperkalemia Current Visit: Yes Status: Acute Code(s): E87.5 - HYPERKALEMIA SNOMED Code (s): 9555144 Comment: K is up to 5.5 again today (pre-dialysis). He is bradycardic again this AM but in sinus bradycardia with occasional paced beats. Will get follow up K this AM to make sure he is not markedly hyperkalemic again. (2) Bradycardia Current Visit: Yes Status: Acute Code(s): R00.1 - BRADYCARDIA, UNSPECIFIED SNOMED Code(s): 10461746 Comment: After having the pacer settings decreased back to his baseline he appeared to be having intrinsic beats with a rate of 50's to 70. This AM I was alerted to the patient's HR decreasing to 40's with dips into the 30's. EKG shows sinus bradycardia with occasional paced beats. Despite having narcan which helped his level of alertness his HR did not improve. Will check stat K level as the last time this happened he was markedly hyperkalemic. Continue to monitor on tele-holding on dialysis for now until it is determined he is stable. (3) Hypotension Current Visit: Yes Status: Acute Comment: BP remains stable. Continue to monitor. (4) Internal jugular vein thrombosis Current Visit: Yes Status: Acute Code(s): I82.C19 - ACUTE EMBOLISM AND THROMBOSIS OF UNSP INTERNAL JUGULAR VEIN SNOMED Code(s): 795672183 Comment: INR remains therapeutic today. Continue to follow. (5) Anemia Current Visit: Yes Status: Acute Code(s): D64.9 - ANEMIA, UNSPECIFIED SNOMED Code(s): 639197279 Comment: Chronic secondary to CKD. H/H is stable. Continue to follow. (6) Abdominal pain Current Visit: Yes Status: Acute Code(s): R10.9 - UNSPECIFIED ABDOMINAL PAIN SNOMED Code(s): 85296565 Comment: Chronic issue. Nothing to do at this time. Hold oxycodone for now as it appears he has been getting to sedated with the current dose. (7) ESRD (end stage renal disease) on dialysis Current Visit: Yes Status: Chronic Code(s): N18.6 - END STAGE RENAL DISEASE ; Z99.2 - DEPENDENCE ON RENAL DIALYSIS SNOMED Code(s): 948467002 Comment: Continue MWF dialysis. (8) DVT prophylaxis Current Visit: Yes Status: Acute Onset Date: 10/22/14 Code(s): NMJ6496 - SNOMED Code(s): 447912790 Comment: Coumadin (9) Full code status Current Visit: Yes Status: Acute Onset Date: 10/22/14 Code(s): Z78.9 - OTHER SPECIFIED HEALTH STATUS SNOMED Code(s): 365465748 Status and Disposition: .
[2017-02-20] MEDS: Ondansetron INJ* 2 MG/ML VIAL IV PRN (12:39)
[2017-02-20] MEDS: amLODIPine TAB* 5 MG PO SCH (14:18)
[2017-02-20] MEDS: Atorvastatin* 10 MG TAB PO SCH (14:18)
[2017-02-20] MEDS: Citalopram TAB* 20 MG PO SCH (14:19)
[2017-02-20] MEDS: Cinacalcet TAB* 30 MG PO SCH (14:19)
[2017-02-20] MEDS: Folic Acid TAB* 1 MG PO SCH (14:19)
[2017-02-20] MEDS: Docusate CAP* 100 MG PO SCH (14:19)
[2017-02-20] MEDS: Lisinopril TAB* 10 MG PO SCH (14:20)
[2017-02-20] MEDS: Vitamin B Complex TAB PO SCH (14:20)
[2017-02-20] MEDS ORDERED: Warfarin TAB(*) 4 MG PO ONE (17:00)
[2017-02-20] MEDS: traZODone TAB* 50 MG TAB PO SCH (20:33)
[2017-02-20] MEDS: Polyethylene Glycol 3350* 17 GM PACKET PO PRN (20:34)
[2017-02-21 05:55] LABS: Hematocrit 29 % (42-52); Hemoglobin 9.5 g/dl (14.0-18.0); Mean Corpuscular HGB Conc 33 g/dl (31-36); Mean Corpuscular Hemoglobin 27 pg (27-31); Mean Corpuscular Volume 84 fL (80-94); Mean Platelet Volume 7 um3 (7.4-10.4); Red Blood Count 3.46 10^6/ul (4.0-5.4); Red Cell Distribution Width 18 % (10.5-15); White Blood Count 4.3 10^3/ul (3.5-10.8)
[2017-02-21 06:09] LABS: BUN/Creatinine Ratio 4.6 (8-20); Calcium 7.7 mg/dL (8.6-10.3); EGFR African American 10.7 (>60); EGFR Non-African American 8.3 (>60); Potassium 4.5 mmol/L (3.5-5.0)
[2017-02-21] MEDS: Atorvastatin* 10 MG TAB PO SCH (08:22)
[2017-02-21] MEDS: Omeprazole CAP* 20 MG PO SCH ×2 (08:22→21:36)
[2017-02-21] MEDS: Lanthanum CHEW TAB* 500 MG PO SCH ×3 (08:22→16:36)
[2017-02-21] MEDS: Carvedilol TAB* 25 MG PO SCH ×2 (08:22→16:36)
[2017-02-21] MEDS: amLODIPine TAB* 5 MG PO SCH (08:22)
[2017-02-21] MEDS: Pancrelipase CAP* 5,000 UNITS CAP PO SCH ×4 (08:22→21:35)
[2017-02-21] MEDS: Lisinopril TAB* 10 MG PO SCH (09:38)
[2017-02-21] MEDS: Docusate CAP* 100 MG PO SCH ×4 (09:38→21:41)
[2017-02-21] MEDS: Cinacalcet TAB* 30 MG PO SCH (09:38)
[2017-02-21] MEDS: Vitamin B Complex TAB PO SCH (09:38)
[2017-02-21] MEDS: Folic Acid TAB* 1 MG PO SCH (09:38)
[2017-02-21] MEDS: Citalopram TAB* 20 MG PO SCH (09:38)
[2017-02-21] MEDS: Clotrimazole 1% CREAM* 45 GM TOPICAL SCH ×2 (09:39→21:03)
[2017-02-21] MEDS: Gabapentin CAP(*) 300 MG PO SCH ×3 (09:39→21:35)
[2017-02-21] MEDS: Moisturizing CREAM* 113 GM JAR TOPICAL SCH ×3 (09:44→21:06)
--- NOTE | 2017-02-21 16:09 | PN ---
Subjective Date of Service: 02/21/17 Interval History: Pt is feeling sleepy currently. Overnight the patient states he had a very large bloody bowel movement and states he fell. It was described that he passed a baseball sized blood clot. He denies any issues at this time but he falls asleep very easily while I am talking to him. Objective Active Medications: Acetaminophen (Tylenol Tab*) 650 mg PO Q8HR PRN PRN Reason: PAIN Albuterol (Ventolin Hfa Inhaler*) 2 puff INH Q4H PRN PRN Reason: SHORTNESS OF BREATH Amlodipine Besylate (Norvasc Tab*) 10 mg PO DAILY [facility] Last Admin: 02/21/17 08:22 Dose: 10 mg Atorvastatin Calcium (Lipitor*) 5 mg PO DAILY [facility] Last Admin: 02/21/17 08:22 Dose: 5 mg Carvedilol (Coreg Tab*) 25 mg PO BID WITH MEALS [facility] Last Admin: 02/21/17 08:22 Dose: 25 mg Cinacalcet (Sensipar Tab*) 30 mg PO DAILY [facility] Last Admin: 02/21/17 09:38 Dose: 30 mg Citalopram Hydrobromide (Celexa Tab*) 20 mg PO DAILY [facility] Last Admin: 02/21/17 09:38 Dose: 20 mg Clotrimazole (Clotrimazole 1%*) 1 applic TOPICAL BID [facility] Last Admin: 02/21/17 09:39 Dose: 1 applic Diphenhydramine HCl (Benadryl Po*) 50 mg PO DAILY PRN PRN Reason: Allergy Symptoms Last Admin: 02/10/17 20:43 Dose: 50 mg Diphenhydramine HCl (Benadryl Po*) 25 mg PO DAILY PRN PRN Reason: ITCHING Last Admin: 02/14/17 02:30 Dose: 25 mg Docusate Sodium (Colace Cap*) 100 mg PO BID [facility] Last Admin: 02/21/17 09:43 Dose: Not Given Folic Acid (Folvite Tab*) 0.5 mg PO DAILY [facility] Last Admin: 02/21/17 09:38 Dose: 0.5 mg Gabapentin (Neurontin Cap(*)) 600 mg PO TID [facility] Last Admin: 02/21/17 14:37 Dose: Not Given Lanthanum Carbonate (Fosrenol Chew Tab*) 500 mg PO TID WITH MEALS [facility] Last Admin: 02/21/17 12:00 Dose: 500 mg Lisinopril (Prinivil Tab*) 10 mg PO DAILY [facility] Last Admin: 02/21/17 09:38 Dose: 10 mg Multi-Ingredient Ointment (Hydrocerin*) 1 applic TOPICAL TID [facility] Last Admin: 02/21/17 12:50 Dose: Not Given Nitroglycerin (Nitroglycerin Tab 0.4 Mg*) 0.4 mg SL Q5M PRN PRN Reason: PAIN - CHEST Omeprazole (Prilosec Cap*) 40 mg PO BID [facility] Last Admin: 02/21/17 08:22 Dose: 40 mg Ondansetron HCl (Zofran Inj*) 4 mg IV Q4H PRN PRN Reason: NAUSEA Last Admin: 02/20/17 12:39 Dose: 4 mg Pancrelipase (Zenpep Delayed Cap*) 10,000 units PO QID ACHS [facility] Last Admin: 02/21/17 12:00 Dose: 10,000 units Pharmacy Profile Note (Coumadin Per Pharmacy*) 1 note FOLLOW UP .PER PHARMACY PROTOC [facility] PRN Reason: Protocol Polyethylene Glycol/Electrolytes (Miralax*) 17 gm PO DAILY PRN PRN Reason: CONSTIPATION Last Admin: 02/20/17 20:34 Dose: 17 gm Polyvinyl Alcohol (Polyvinyl Alcohol 1.4% Opth*) 2 drop BOTH EYES Q2H PRN PRN Reason: DRY EYE Last Admin: 02/19/17 12:52 Dose: 2 drop Trazodone HCl (Desyrel Tab*) 100 mg PO BEDTIME [facility] Last Admin: 02/20/17 20:33 Dose: 100 mg Vitamin B Complex/Vitamin E (Complex B-100*) 1 tab PO DAILY [facility] Last Admin: 02/21/17 09:38 Dose: 1 tab Warfarin Sodium (Coumadin Tab(*)) 4 mg PO 1700 [facility] Stop: 02/22/17 23:00 Vital Signs 02/20/17 02/20/17 02/20/17 16:04 19:50 20:00 Temperature 98.6 F 98.5 F Pulse Rate 73 62 Respiratory 16 16 16 Rate Blood Pressure 170/85 160/87 (mmHg) O2 Sat by Pulse 92 91 Oximetry 02/20/17 02/20/17 02/20/17 20:33 22:20 22:33 Temperature 98.0 F Pulse Rate 62 Respiratory 16 16 16 Rate Blood Pressure 142/92 (mmHg) O2 Sat by Pulse 94 Oximetry 02/20/17 02/20/17 02/21/17 22:56 23:38 00:53 Temperature 98.0 F 98.2 F 98.5 F Pulse Rate 61 62 72 Respiratory 17 16 16 Rate Blood Pressure 137/76 143/73 133/69 (mmHg) O2 Sat by Pulse 91 92 88 Oximetry 02/21/17 02/21/17 02/21/17 01:21 03:29 05:47 Temperature 98.2 F 98.4 F 98.4 F Pulse Rate 60 60 59 Respiratory 16 16 16 Rate Blood Pressure 136/71 145/79 145/79 (mmHg) O2 Sat by Pulse 90 97 98 Oximetry 02/21/17 02/21/17 02/21/17 07:56 08:00 09:39 Temperature 98.1 F Pulse Rate 60 Respiratory 16 16 16 Rate Blood Pressure 139/83 (mmHg) O2 Sat by Pulse 99 Oximetry 02/21/17 02/21/17 11:39 11:47 Temperature 98.2 F Pulse Rate 59 Respiratory 16 18 Rate Blood Pressure 136/77 (mmHg) O2 Sat by Pulse 95 Oximetry Oxygen Devices in Use Now: None Appearance: Middle aged male sitting up in a chair, NAD Eyes: No Scleral Icterus Ears/Nose/Mouth/Throat: Mucous Membranes Moist Respiratory: Symmetrical Chest Expansion and Respiratory Effort, Clear to Auscultation Cardiovascular: NL Sounds; No Murmurs; No JVD, RRR, - - 1+ LE edema Abdominal: - - BS+ soft, ND Extremities: No Clubbing, Cyanosis Skin: No Rash or Ulcers, No Nodules or Sclerosis Neurological: - - lethargic but awakens to voice Result Diagrams: 02/21/17 05:37 02/21/17 05:37 Microbiology and Other Data: Microbiology 02/06/17 15:55 Nasal Screen MRSA (PCR)(PER) - Final Nasal Mrsa Positive Assess/Plan/Problems-Billing Mr Templeton is a 66 yo M with a very complicated PMHx who was admitted on 02/06/17 with an internal jugular vein thrombosis (likely catheter related) and was ready for d/c to [facility] on 02/18/17 when he suddenly became hypotensive and bradycardic secondary to marked hyperkalemia. - Patient Problems (1) Bright red blood per rectum Current Visit: Yes Status: Acute Code(s): K62.5 - HEMORRHAGE OF ANUS AND RECTUM SNOMED Code(s): 708262529 Comment: Overnight the patient was reported to have a very large bloody BM. He has not had any further BMs today. Will hold coumadin until I have a follow up H/H. If stable or improved will continue coumadin but if H/H down will hold coumadin. Will not reverse the INR unless the H/H continues to drop or if he becomes hemodynamically unstable. (2) Acute hyperkalemia Current Visit: Yes Status: Acute Code(s): E87.5 - HYPERKALEMIA SNOMED Code (s): 3171666 Comment: K improved after dialysis. Will continue to check daily labs. (3) Bradycardia Current Visit: Yes Status: Acute Code(s): R00.1 - BRADYCARDIA, UNSPECIFIED SNOMED Code(s): 99158412 Comment: Resolved for the time being. Will continue to monitor on tele. (4) Hypotension Current Visit: Yes Status: Acute Comment: Resolved. Continue current medication regimen. (5) Internal jugular vein thrombosis Current Visit: Yes Status: Acute Code(s): I82.C19 - ACUTE EMBOLISM AND THROMBOSIS OF UNSP INTERNAL JUGULAR VEIN SNOMED Code(s): 599047187 Comment: INR remains therapeutic however he had a bloody BM overnight. Will repeat H/H now and if down will hold coumadin. If stable or up will continue coumadin cautiously. (6) Anemia Current Visit: Yes Status: Acute Code(s): D64.9 - ANEMIA, UNSPECIFIED SNOMED Code(s): 033846453 Comment: H/H is down slightly today after possibly a very large bloody BM. Will get follow up H/H now. (7) Abdominal pain Current Visit: Yes Status: Acute Code(s): R10.9 - UNSPECIFIED ABDOMINAL PAIN SNOMED Code(s): 30716295 Comment: Chronic issue. Nothing to do at this time. Continue to hold oxycodone. (8) ESRD (end stage renal disease) on dialysis Current Visit: Yes Status: Chronic Code(s): N18.6 - END STAGE RENAL DISEASE ; Z99.2 - DEPENDENCE ON RENAL DIALYSIS SNOMED Code(s): 539951707 Comment: Continue MWF dialysis. (9) DVT prophylaxis Current Visit: Yes Status: Acute Onset Date: 10/22/14 Code(s): DEZ6923 - SNOMED Code(s): 793400606 Comment: Coumadin (10) Full code status Current Visit: Yes Status: Acute Onset Date: 10/22/14 Code(s): Z78.9 - OTHER SPECIFIED HEALTH STATUS SNOMED Code(s): 131950105 Status and Disposition: .
[2017-02-21 16:15] LABS: Hematocrit 34 % (42-52); Hemoglobin 10.9 g/dl (14.0-18.0); Mean Corpuscular HGB Conc 32 g/dl (31-36); Mean Corpuscular Hemoglobin 27 pg (27-31); Mean Corpuscular Volume 84 fL (80-94); Mean Platelet Volume 7 um3 (7.4-10.4); Red Blood Count 4.01 10^6/ul (4.0-5.4); Red Cell Distribution Width 18 % (10.5-15); White Blood Count 5.3 10^3/ul (3.5-10.8)
[2017-02-21] MEDS ORDERED: Warfarin TAB(*) 4 MG PO SCH (17:00)
[2017-02-21] MEDS: diPHENhydraMINE PO* 50 MG PO PRN (21:34)
[2017-02-21] MEDS: Polyethylene Glycol 3350* 17 GM PACKET PO PRN (21:40)
[2017-02-22] MEDS: traZODone TAB* 50 MG TAB PO SCH (01:02)
[2017-02-22 06:47] LABS: Hematocrit 33 % (42-52); Hemoglobin 10.6 g/dl (14.0-18.0); Mean Corpuscular HGB Conc 32 g/dl (31-36); Mean Corpuscular Hemoglobin 27 pg (27-31); Mean Corpuscular Volume 84 fL (80-94); Mean Platelet Volume 8 um3 (7.4-10.4); Red Blood Count 3.89 10^6/ul (4.0-5.4); Red Cell Distribution Width 18 % (10.5-15); White Blood Count 4.6 10^3/ul (3.5-10.8)
[2017-02-22 07:01] LABS: BUN/Creatinine Ratio 5.5 (8-20); Calcium 8.2 mg/dL (8.6-10.3); EGFR African American 8.7 (>60); EGFR Non-African American 6.8 (>60); Potassium 5.2 mmol/L (3.5-5.0)
[2017-02-22] MEDS: amLODIPine TAB* 5 MG PO SCH (08:26)
[2017-02-22] MEDS: Pancrelipase CAP* 5,000 UNITS CAP PO SCH ×4 (08:26→21:35)
[2017-02-22] MEDS: Lisinopril TAB* 10 MG PO SCH (08:27)
[2017-02-22] MEDS: Omeprazole CAP* 20 MG PO SCH ×2 (08:27→21:34)
[2017-02-22] MEDS: Vitamin B Complex TAB PO SCH (08:28)
[2017-02-22] MEDS: Lanthanum CHEW TAB* 500 MG PO SCH ×3 (08:28→17:12)
[2017-02-22] MEDS: Cinacalcet TAB* 30 MG PO SCH (08:28)
[2017-02-22] MEDS: Atorvastatin* 10 MG TAB PO SCH (08:30)
[2017-02-22] MEDS: Citalopram TAB* 20 MG PO SCH (08:30)
[2017-02-22] MEDS: Gabapentin CAP(*) 300 MG PO SCH ×3 (08:30→21:33)
[2017-02-22] MEDS: Carvedilol TAB* 25 MG PO SCH ×2 (08:30→17:11)
[2017-02-22] MEDS: Folic Acid TAB* 1 MG PO SCH (08:31)
[2017-02-22] MEDS: Clotrimazole 1% CREAM* 45 GM TOPICAL SCH ×2 (08:32→21:37)
[2017-02-22] MEDS: Docusate CAP* 100 MG PO SCH ×2 (08:32→21:37)
[2017-02-22] MEDS: Moisturizing CREAM* 113 GM JAR TOPICAL SCH ×3 (08:33→21:37)
[2017-02-22] MEDS ORDERED: Senna TAB PO ONE (08:38)
[2017-02-22] MEDS ORDERED: Sodium Polystyrene ORAL.SOL* 15 GM/60 ML BTL PO ONE (15:00)
--- NOTE | 2017-02-22 16:24 | PN ---
Subjective Date of Service: 02/22/17 Interval History: Pt is feeling ok. He just had a BM. He flushed it before anyone saw the stool- he states he did not know we wanted to see it though he was told by nursing not to flush. He states there was blood in the stool. He states less than previous however. He states he has pain in his legs but is trying to walk more. Objective Active Medications: Acetaminophen (Tylenol Tab*) 650 mg PO Q8HR PRN PRN Reason: PAIN Albuterol (Ventolin Hfa Inhaler*) 2 puff INH Q4H PRN PRN Reason: SHORTNESS OF BREATH Amlodipine Besylate (Norvasc Tab*) 10 mg PO DAILY [facility] Last Admin: 02/22/17 08:26 Dose: 10 mg Atorvastatin Calcium (Lipitor*) 5 mg PO DAILY [facility] Last Admin: 02/22/17 08:30 Dose: 5 mg Carvedilol (Coreg Tab*) 25 mg PO BID WITH MEALS [facility] Last Admin: 02/22/17 08:30 Dose: 25 mg Cinacalcet (Sensipar Tab*) 30 mg PO DAILY [facility] Last Admin: 02/22/17 08:28 Dose: 30 mg Citalopram Hydrobromide (Celexa Tab*) 20 mg PO DAILY [facility] Last Admin: 02/22/17 08:30 Dose: 20 mg Clotrimazole (Clotrimazole 1%*) 1 applic TOPICAL BID [facility] Last Admin: 02/22/17 08:32 Dose: Not Given Diphenhydramine HCl (Benadryl Po*) 50 mg PO DAILY PRN PRN Reason: Allergy Symptoms Last Admin: 02/21/17 21:34 Dose: 50 mg Diphenhydramine HCl (Benadryl Po*) 25 mg PO DAILY PRN PRN Reason: ITCHING Last Admin: 02/14/17 02:30 Dose: 25 mg Docusate Sodium (Colace Cap*) 100 mg PO BID [facility] Last Admin: 02/22/17 08:32 Dose: Not Given Folic Acid (Folvite Tab*) 0.5 mg PO DAILY [facility] Last Admin: 02/22/17 08:31 Dose: 0.5 mg Gabapentin (Neurontin Cap(*)) 600 mg PO TID [facility] Last Admin: 02/22/17 15:32 Dose: 600 mg Lanthanum Carbonate (Fosrenol Chew Tab*) 500 mg PO TID WITH MEALS [facility] Last Admin: 02/22/17 11:59 Dose: 500 mg Lisinopril (Prinivil Tab*) 10 mg PO DAILY [facility] Last Admin: 02/22/17 08:27 Dose: 10 mg Multi-Ingredient Ointment (Hydrocerin*) 1 applic TOPICAL TID [facility] Last Admin: 02/22/17 15:33 Dose: Not Given Nitroglycerin (Nitroglycerin Tab 0.4 Mg*) 0.4 mg SL Q5M PRN PRN Reason: PAIN - CHEST Omeprazole (Prilosec Cap*) 40 mg PO BID [facility] Last Admin: 02/22/17 08:27 Dose: 40 mg Ondansetron HCl (Zofran Inj*) 4 mg IV Q4H PRN PRN Reason: NAUSEA Last Admin: 02/20/17 12:39 Dose: 4 mg Pancrelipase (Zenpep Delayed Cap*) 10,000 units PO QID ACHS [facility] Last Admin: 02/22/17 11:59 Dose: 10,000 units Pharmacy Profile Note (Coumadin Per Pharmacy*) 1 note FOLLOW UP .PER PHARMACY PROTOC [facility] PRN Reason: Protocol Polyethylene Glycol/Electrolytes (Miralax*) 17 gm PO DAILY PRN PRN Reason: CONSTIPATION Last Admin: 02/21/17 21:40 Dose: 17 gm Polyvinyl Alcohol (Polyvinyl Alcohol 1.4% Opth*) 2 drop BOTH EYES Q2H PRN PRN Reason: DRY EYE Last Admin: 02/19/17 12:52 Dose: 2 drop Trazodone HCl (Desyrel Tab*) 100 mg PO BEDTIME [facility] Last Admin: 02/22/17 01:02 Dose: Not Given Vitamin B Complex/Vitamin E (Complex B-100*) 1 tab PO DAILY [facility] Last Admin: 02/22/17 08:28 Dose: 1 tab Warfarin Sodium (Coumadin Tab(*)) 5 mg PO 1700 [facility] Stop: 02/22/17 17:01 Vital Signs 02/21/17 02/21/17 02/21/17 16:32 20:00 21:34 Temperature 98.4 F Pulse Rate 53 Respiratory 18 16 16 Rate Blood Pressure 152/91 (mmHg) O2 Sat by Pulse 91 Oximetry 02/21/17 02/21/17 02/21/17 21:35 23:34 23:35 Temperature Pulse Rate Respiratory 16 16 16 Rate Blood Pressure (mmHg) O2 Sat by Pulse Oximetry 02/22/17 02/22/17 02/22/17 00:10 04:45 07:59 Temperature 98.3 F 98.4 F 98.4 F Pulse Rate 62 57 61 Respiratory 16 16 20 Rate Blood Pressure 163/90 181/89 172/88 (mmHg) O2 Sat by Pulse 93 95 91 Oximetry 02/22/17 02/22/17 02/22/17 08:00 08:30 10:30 Temperature Pulse Rate Respiratory 20 20 20 Rate Blood Pressure (mmHg) O2 Sat by Pulse Oximetry 02/22/17 02/22/17 02/22/17 12:12 15:32 15:51 Temperature 98.2 F 98.2 F Pulse Rate 58 58 Respiratory 20 20 18 Rate Blood Pressure 149/97 152/85 (mmHg) O2 Sat by Pulse 90 98 Oximetry Oxygen Devices in Use Now: None Appearance: Middle aged male sitting on delicia seat of his rolling walker, NAD Eyes: No Scleral Icterus Ears/Nose/Mouth/Throat: Mucous Membranes Moist Respiratory: Symmetrical Chest Expansion and Respiratory Effort, Clear to Auscultation - with bibasilar crackles Cardiovascular: NL Sounds; No Murmurs; No JVD, RRR, - - 2+ edema Abdominal: NL Sounds; No Tenderness; No Distention Extremities: No Clubbing, Cyanosis Skin: No Rash or Ulcers, No Nodules or Sclerosis Neurological: Alert and Oriented x 3 Result Diagrams: 02/22/17 06:10 02/22/17 06:10 Microbiology and Other Data: Microbiology 02/06/17 15:55 Nasal Screen MRSA (PCR)(PER) - Final Nasal Mrsa Positive Assess/Plan/Problems-Billing Mr Templeton is a 66 yo M with a very complicated PMHx who was admitted on 02/06/17 with an internal jugular vein thrombosis (likely catheter related) and was ready for d/c to [facility] on 02/18/17 when he suddenly became hypotensive and bradycardic secondary to marked hyperkalemia. - Patient Problems (1) Bright red blood per rectum Current Visit: Yes Status: Acute Code(s): K62.5 - HEMORRHAGE OF ANUS AND RECTUM SNOMED Code(s): 680931672 Comment: Pt flushed the stool today before anyone could see it. His H/H has been stable. I suspect this is hemorrhoidal bleeding. Continue to follow the H/ H. (2) Acute hyperkalemia Current Visit: Yes Status: Acute Code(s): E87.5 - HYPERKALEMIA SNOMED Code (s): 7454941 Comment: K is up to 5.2 today. Will give kayexalate 15g po now. Follow up K in AM. He may need daily kayexalate as his potassium is not staying normal. (3) Bradycardia Current Visit: Yes Status: Acute Code(s): R00.1 - BRADYCARDIA, UNSPECIFIED SNOMED Code(s): 07339008 Comment: Resolved for the time being. Will continue to monitor on tele. (4) Hypotension Current Visit: Yes Status: Acute Comment: Resolved. Continue current medication regimen. (5) Internal jugular vein thrombosis Current Visit: Yes Status: Acute Code(s): I82.C19 - ACUTE EMBOLISM AND THROMBOSIS OF UNSP INTERNAL JUGULAR VEIN SNOMED Code(s): 819787382 Comment: INR remains therapeutic-continue coumadin per pharmacy dosin. (6) Anemia Current Visit: Yes Status: Acute Code(s): D64.9 - ANEMIA, UNSPECIFIED SNOMED Code(s): 721409575 Comment: H/H is stable. Continue to monitor. (7) Abdominal pain Current Visit: Yes Status: Acute Code(s): R10.9 - UNSPECIFIED ABDOMINAL PAIN SNOMED Code(s): 80597069 Comment: Chronic issue. Nothing to do at this time. Continue to hold oxycodone. (8) ESRD (end stage renal disease) on dialysis Current Visit: Yes Status: Chronic Code(s): N18.6 - END STAGE RENAL DISEASE ; Z99.2 - DEPENDENCE ON RENAL DIALYSIS SNOMED Code(s): 579180848 Comment: Continue MWF dialysis. (9) DVT prophylaxis Current Visit: Yes Status: Acute Onset Date: 10/22/14 Code(s): WRV7447 - SNOMED Code(s): 316462665 Comment: Coumadin (10) Full code status Current Visit: Yes Status: Acute Onset Date: 10/22/14 Code(s): Z78.9 - OTHER SPECIFIED HEALTH STATUS SNOMED Code(s): 970792207 Status and Disposition: .
[2017-02-22] MEDS ORDERED: Warfarin TAB(*) 5 MG PO ONE (17:00)
[2017-02-22] MEDS: diPHENhydraMINE PO* 50 MG PO PRN (21:32)
[2017-02-23] MEDS: traZODone TAB* 50 MG TAB PO SCH ×2 (03:00→20:39)
[2017-02-23 05:49] LABS: Hematocrit 30 % (42-52); Hemoglobin 9.7 g/dl (14.0-18.0); Mean Platelet Volume 8 um3 (7.4-10.4)
[2017-02-23 06:03] LABS: BUN/Creatinine Ratio 5.9 (8-20); Calcium 7.7 mg/dL (8.6-10.3); EGFR African American 7.3 (>60); EGFR Non-African American 5.7 (>60)
[2017-02-23] MEDS: Lanthanum CHEW TAB* 500 MG PO SCH ×3 (08:54→18:01)
[2017-02-23] MEDS: amLODIPine TAB* 5 MG PO SCH (14:17)
[2017-02-23] MEDS: Atorvastatin* 10 MG TAB PO SCH (14:18)
[2017-02-23] MEDS: Gabapentin CAP(*) 300 MG PO SCH ×3 (14:19→20:37)
[2017-02-23] MEDS: Lisinopril TAB* 10 MG PO SCH (14:19)
[2017-02-23] MEDS: Folic Acid TAB* 1 MG PO SCH (14:20)
[2017-02-23] MEDS: Pancrelipase CAP* 5,000 UNITS CAP PO SCH ×4 (14:21→20:37)
[2017-02-23] MEDS: Cinacalcet TAB* 30 MG PO SCH (14:21)
[2017-02-23] MEDS: Citalopram TAB* 20 MG PO SCH (14:21)
[2017-02-23] MEDS: Moisturizing CREAM* 113 GM JAR TOPICAL SCH ×3 (14:22→20:40)
[2017-02-23] MEDS: Docusate CAP* 100 MG PO SCH ×2 (14:22→20:28)
[2017-02-23] MEDS: Vitamin B Complex TAB PO SCH (14:23)
[2017-02-23] MEDS: Carvedilol TAB* 25 MG PO SCH ×2 (14:25→20:42)
[2017-02-23] MEDS: Omeprazole CAP* 20 MG PO SCH ×2 (14:25→20:39)
[2017-02-23] MEDS: Clotrimazole 1% CREAM* 45 GM TOPICAL SCH ×2 (14:25→20:41)
[2017-02-23] MEDS ORDERED: oxyCODONE TAB* 5 MG TAB PO ONE (17:48)
[2017-02-23] MEDS: Warfarin TAB(*) 5 MG PO SCH (18:01)
--- NOTE | 2017-02-23 18:04 | PN ---
Subjective Date of Service: 02/23/17 Interval History: Pt is c/o low back pain. He states he is now having pain after his fall this past weekend. He also c/o his legs being swollen. The dialysis nurse noted his weight to be up 10kg. He states he had a BM this AM with a small amount of blood in it-again it was flushed before nursing could see the stool. Objective Active Medications: Acetaminophen (Tylenol Tab*) 650 mg PO Q8HR PRN PRN Reason: PAIN Albuterol (Ventolin Hfa Inhaler*) 2 puff INH Q4H PRN PRN Reason: SHORTNESS OF BREATH Amlodipine Besylate (Norvasc Tab*) 10 mg PO DAILY [facility] Last Admin: 02/23/17 14:17 Dose: 10 mg Atorvastatin Calcium (Lipitor*) 5 mg PO DAILY [facility] Last Admin: 02/23/17 14:18 Dose: 5 mg Carvedilol (Coreg Tab*) 25 mg PO BID WITH MEALS [facility] Last Admin: 02/23/17 14:25 Dose: 25 mg Cinacalcet (Sensipar Tab*) 30 mg PO DAILY [facility] Last Admin: 02/23/17 14:21 Dose: 30 mg Citalopram Hydrobromide (Celexa Tab*) 20 mg PO DAILY [facility] Last Admin: 02/23/17 14:21 Dose: 20 mg Clotrimazole (Clotrimazole 1%*) 1 applic TOPICAL BID [facility] Last Admin: 02/23/17 14:25 Dose: 1 applic Diphenhydramine HCl (Benadryl Po*) 50 mg PO DAILY PRN PRN Reason: Allergy Symptoms Last Admin: 02/22/17 21:32 Dose: 50 mg Diphenhydramine HCl (Benadryl Po*) 25 mg PO DAILY PRN PRN Reason: ITCHING Last Admin: 02/14/17 02:30 Dose: 25 mg Docusate Sodium (Colace Cap*) 100 mg PO BID [facility] Last Admin: 02/23/17 14:22 Dose: Not Given Folic Acid (Folvite Tab*) 0.5 mg PO DAILY [facility] Last Admin: 02/23/17 14:20 Dose: 0.5 mg Gabapentin (Neurontin Cap(*)) 600 mg PO TID [facility] Last Admin: 02/23/17 14:19 Dose: 600 mg Lanthanum Carbonate (Fosrenol Chew Tab*) 500 mg PO TID WITH MEALS [facility] Last Admin: 02/23/17 14:22 Dose: Not Given Lisinopril (Prinivil Tab*) 10 mg PO DAILY [facility] Last Admin: 02/23/17 14:19 Dose: 10 mg Multi-Ingredient Ointment (Hydrocerin*) 1 applic TOPICAL TID [facility] Last Admin: 02/23/17 14:25 Dose: Not Given Nitroglycerin (Nitroglycerin Tab 0.4 Mg*) 0.4 mg SL Q5M PRN PRN Reason: PAIN - CHEST Omeprazole (Prilosec Cap*) 40 mg PO BID [facility] Last Admin: 02/23/17 14:25 Dose: 40 mg Ondansetron HCl (Zofran Inj*) 4 mg IV Q4H PRN PRN Reason: NAUSEA Last Admin: 02/20/17 12:39 Dose: 4 mg Pancrelipase (Zenpep Delayed Cap*) 10,000 units PO QID ACHS [facility] Last Admin: 02/23/17 14:21 Dose: 10,000 units Pharmacy Profile Note (Coumadin Per Pharmacy*) 1 note FOLLOW UP .PER PHARMACY PROTOC [facility] PRN Reason: Protocol Polyethylene Glycol/Electrolytes (Miralax*) 17 gm PO DAILY PRN PRN Reason: CONSTIPATION Last Admin: 02/21/17 21:40 Dose: 17 gm Polyvinyl Alcohol (Polyvinyl Alcohol 1.4% Opth*) 2 drop BOTH EYES Q2H PRN PRN Reason: DRY EYE Last Admin: 02/19/17 12:52 Dose: 2 drop Trazodone HCl (Desyrel Tab*) 100 mg PO BEDTIME [facility] Last Admin: 02/23/17 03:00 Dose: Not Given Vitamin B Complex/Vitamin E (Complex B-100*) 1 tab PO DAILY [facility] Last Admin: 02/23/17 14:23 Dose: 1 tab Warfarin Sodium (Coumadin Tab(*)) 5 mg PO 1700 [facility] Stop: 02/24/17 23:00 Vital Signs 02/22/17 02/22/17 02/22/17 20:00 20:57 21:32 Temperature 98.5 F Pulse Rate 59 Respiratory 16 18 16 Rate Blood Pressure 148/94 (mmHg) O2 Sat by Pulse 95 Oximetry 02/22/17 02/22/17 02/22/17 21:33 23:32 23:33 Temperature Pulse Rate Respiratory 16 20 20 Rate Blood Pressure (mmHg) O2 Sat by Pulse Oximetry 02/22/17 02/23/17 02/23/17 23:36 03:18 07:37 Temperature 97.5 F 97.8 F 98.3 F Pulse Rate 58 57 59 Respiratory 16 16 16 Rate Blood Pressure 149/89 156/96 152/94 (mmHg) O2 Sat by Pulse 96 92 97 Oximetry 02/23/17 02/23/17 02/23/17 08:00 14:03 14:13 Temperature 98.1 F Pulse Rate 71 Respiratory 16 16 Rate Blood Pressure 249/144 189/97 (mmHg) O2 Sat by Pulse 97 Oximetry 02/23/17 02/23/17 14:19 15:45 Temperature 98.3 F Pulse Rate 71 Respiratory 18 16 Rate Blood Pressure 153/85 (mmHg) O2 Sat by Pulse 97 Oximetry Oxygen Devices in Use Now: None Appearance: Middle aged male sitting in a chair eating dinner, NAD Eyes: No Scleral Icterus Ears/Nose/Mouth/Throat: Mucous Membranes Moist Respiratory: Symmetrical Chest Expansion and Respiratory Effort, Clear to Auscultation Cardiovascular: NL Sounds; No Murmurs; No JVD, RRR, - - 1-2+ pitting edema of the B/L LE Abdominal: - - BS+ soft, ND Extremities: No Clubbing, Cyanosis Skin: No Rash or Ulcers, - - left anterior forearm with superficial thrombophlebitis at previous IV site Neurological: Alert and Oriented x 3 Result Diagrams: 02/23/17 05:34 02/23/17 05:34 Microbiology and Other Data: Microbiology 02/06/17 15:55 Nasal Screen MRSA (PCR)(PER) - Final Nasal Mrsa Positive Assess/Plan/Problems-Billing Mr Templeton is a 66 yo M with a very complicated PMHx who was admitted on 02/06/17 with an internal jugular vein thrombosis (likely catheter related) and was ready for d/c to [facility] on 02/18/17 when he suddenly became hypotensive and bradycardic secondary to marked hyperkalemia. - Patient Problems (1) Bright red blood per rectum Current Visit: Yes Status: Acute Code(s): K62.5 - HEMORRHAGE OF ANUS AND RECTUM SNOMED Code(s): 634469524 Comment: H/H remains stable. I suspect this has been hemorrhoidal bleeding. He reports having hemorroid (?) surgery about 6 months ago. After d/c he can be re-evaluated. (2) Acute hyperkalemia Current Visit: Yes Status: Acute Code(s): E87.5 - HYPERKALEMIA SNOMED Code (s): 3289668 Comment: K was 6.0 this AM despite having kayexalate yesterday. He received dialysis this AM. Will start kayexalate on all non-dialysis days. (3) Bradycardia Current Visit: Yes Status: Acute Code(s): R00.1 - BRADYCARDIA, UNSPECIFIED SNOMED Code(s): 85644949 Comment: Resolved for the time being. Will continue to monitor on tele. (4) Hypotension Current Visit: Yes Status: Acute Comment: Resolved. Continue current medication regimen. (5) Internal jugular vein thrombosis Current Visit: Yes Status: Acute Code(s): I82.C19 - ACUTE EMBOLISM AND THROMBOSIS OF UNSP INTERNAL JUGULAR VEIN SNOMED Code(s): 424929774 Comment: INR remains therapeutic-continue coumadin per pharmacy dosing. (6) Anemia Current Visit: Yes Status: Acute Code(s): D64.9 - ANEMIA, UNSPECIFIED SNOMED Code(s): 508547739 Comment: H/H is stable. Continue to monitor. (7) Abdominal pain Current Visit: Yes Status: Acute Code(s): R10.9 - UNSPECIFIED ABDOMINAL PAIN SNOMED Code(s): 04460405 Comment: Chronic issue. Nothing to do at this time. (8) ESRD (end stage renal disease) on dialysis Current Visit: Yes Status: Chronic Code(s): N18.6 - END STAGE RENAL DISEASE ; Z99.2 - DEPENDENCE ON RENAL DIALYSIS SNOMED Code(s): 377651321 Comment: Continue MWF dialysis. (9) DVT prophylaxis Current Visit: Yes Status: Acute Onset Date: 10/22/14 Code(s): ARV6690 - SNOMED Code(s): 919076212 Comment: Coumadin (10) Full code status Current Visit: Yes Status: Acute Onset Date: 10/22/14 Code(s): Z78.9 - OTHER SPECIFIED HEALTH STATUS SNOMED Code(s): 248463384 Status and Disposition: .
--- NOTE | 2017-02-23 18:54 | RAD ---
Indication: LEFT leg weakness and paresthesias post fall hitting back. Comparison: February 06, 2017 CT. Technique: AP, lateral, and oblique views lumbar sacral spine. Report: Scattered high density bowel contents limits image quality. Alignment is anatomic. No gross cortical disruption or trabecular impaction to indicate a vertebral body fracture. Oblique views without evidence for spondylolysis. Preserved disc spaces. L4-L5 and L5-S1 facet joint osteoarthritis. Unremarkable soft tissue contours. IMPRESSION: Limited exam without gross evidence for traumatic lumbar sacral spine injury.
[2017-02-23] MEDS: diPHENhydraMINE PO* 50 MG PO PRN (20:39)
[2017-02-24 05:58] LABS: Hematocrit 31 % (42-52); Hemoglobin 9.9 g/dl (14.0-18.0); Mean Corpuscular HGB Conc 32 g/dl (31-36); Mean Corpuscular Hemoglobin 27 pg (27-31); Mean Corpuscular Volume 83 fL (80-94); Mean Platelet Volume 8 um3 (7.4-10.4); Red Cell Distribution Width 18 % (10.5-15)
[2017-02-24 06:03] LABS: EGFR African American 9.7 (>60); EGFR Non-African American 7.5 (>60); Potassium 4.6 mmol/L (3.5-5.0)
[2017-02-24] MEDS: Pancrelipase CAP* 5,000 UNITS CAP PO SCH ×4 (08:54→20:44)
[2017-02-24] MEDS: Clotrimazole 1% CREAM* 45 GM TOPICAL SCH ×2 (08:59→20:47)
[2017-02-24] MEDS: Carvedilol TAB* 25 MG PO SCH (09:24)
[2017-02-24] MEDS: amLODIPine TAB* 5 MG PO SCH (09:24)
[2017-02-24] MEDS: Atorvastatin* 10 MG TAB PO SCH (09:24)
[2017-02-24] MEDS: Lanthanum CHEW TAB* 500 MG PO SCH ×3 (09:24→17:29)
[2017-02-24] MEDS: Cinacalcet TAB* 30 MG PO SCH (09:24)
[2017-02-24] MEDS: Folic Acid TAB* 1 MG PO SCH (09:25)
[2017-02-24] MEDS: Citalopram TAB* 20 MG PO SCH (09:25)
[2017-02-24] MEDS: Docusate CAP* 100 MG PO SCH ×2 (09:25→20:47)
[2017-02-24] MEDS: Gabapentin CAP(*) 300 MG PO SCH ×3 (09:25→20:43)
[2017-02-24] MEDS: Vitamin B Complex TAB PO SCH (09:26)
[2017-02-24] MEDS: Lisinopril TAB* 10 MG PO SCH (09:26)
[2017-02-24] MEDS: Omeprazole CAP* 20 MG PO SCH ×2 (09:26→20:47)
[2017-02-24] MEDS: Moisturizing CREAM* 113 GM JAR TOPICAL SCH ×3 (09:36→20:47)
--- NOTE | 2017-02-24 14:59 | PN ---
Subjective Date of Service: 02/24/17 Interval History: Complaining of back pain after fall in shower several days prior Reports about 1 teaspoon of blood in stool today. Reports this is much improved Does not want to go to inpatient rehab. Reports he signed out last time because they were not helping him. Family History: Unchanged from Admission Social History: Unchanged from Admission Past Medical History: Unchanged from Admission Objective Active Medications: Acetaminophen (Tylenol Tab*) 650 mg PO Q8HR PRN PRN Reason: PAIN Albuterol (Ventolin Hfa Inhaler*) 2 puff INH Q4H PRN PRN Reason: SHORTNESS OF BREATH Amlodipine Besylate (Norvasc Tab*) 10 mg PO DAILY [facility] Last Admin: 02/24/17 09:24 Dose: 10 mg Atorvastatin Calcium (Lipitor*) 5 mg PO DAILY [facility] Last Admin: 02/24/17 09:24 Dose: 5 mg Carvedilol (Coreg Tab*) 12.5 mg PO BID WITH MEALS [facility] Cinacalcet (Sensipar Tab*) 30 mg PO DAILY [facility] Last Admin: 02/24/17 09:24 Dose: 30 mg Citalopram Hydrobromide (Celexa Tab*) 20 mg PO DAILY [facility] Last Admin: 02/24/17 09:25 Dose: 20 mg Clotrimazole (Clotrimazole 1%*) 1 applic TOPICAL BID [facility] Last Admin: 02/24/17 08:59 Dose: 1 applic Diphenhydramine HCl (Benadryl Po*) 50 mg PO DAILY PRN PRN Reason: Allergy Symptoms Last Admin: 02/23/17 20:39 Dose: 50 mg Diphenhydramine HCl (Benadryl Po*) 25 mg PO DAILY PRN PRN Reason: ITCHING Last Admin: 02/14/17 02:30 Dose: 25 mg Docusate Sodium (Colace Cap*) 100 mg PO BID [facility] Last Admin: 02/24/17 09:25 Dose: 100 mg Folic Acid (Folvite Tab*) 0.5 mg PO DAILY [facility] Last Admin: 02/24/17 09:25 Dose: 0.5 mg Gabapentin (Neurontin Cap(*)) 600 mg PO TID [facility] Last Admin: 02/24/17 13:59 Dose: 600 mg Lanthanum Carbonate (Fosrenol Chew Tab*) 500 mg PO TID WITH MEALS [facility] Last Admin: 02/24/17 12:46 Dose: 500 mg Lisinopril (Prinivil Tab*) 10 mg PO DAILY [facility] Last Admin: 02/24/17 09:26 Dose: 10 mg Multi-Ingredient Ointment (Hydrocerin*) 1 applic TOPICAL TID [facility] Last Admin: 02/24/17 13:54 Dose: Not Given Nitroglycerin (Nitroglycerin Tab 0.4 Mg*) 0.4 mg SL Q5M PRN PRN Reason: PAIN - CHEST Omeprazole (Prilosec Cap*) 40 mg PO BID [facility] Last Admin: 02/24/17 09:26 Dose: 40 mg Ondansetron HCl (Zofran Inj*) 4 mg IV Q4H PRN PRN Reason: NAUSEA Last Admin: 02/20/17 12:39 Dose: 4 mg Pancrelipase (Zenpep Delayed Cap*) 10,000 units PO QID ACHS [facility] Last Admin: 02/24/17 12:46 Dose: 10,000 units Pharmacy Profile Note (Coumadin Per Pharmacy*) 1 note FOLLOW UP .PER PHARMACY PROTOC [facility] PRN Reason: Protocol Polyethylene Glycol/Electrolytes (Miralax*) 17 gm PO DAILY PRN PRN Reason: CONSTIPATION Last Admin: 02/21/17 21:40 Dose: 17 gm Polyvinyl Alcohol (Polyvinyl Alcohol 1.4% Opth*) 2 drop BOTH EYES Q2H PRN PRN Reason: DRY EYE Last Admin: 02/19/17 12:52 Dose: 2 drop Sodium Polystyrene Sulfonate (Kayexalate Oral.Joanna*) 15 gm PO SUTUTHSA [facility] Trazodone HCl (Desyrel Tab*) 100 mg PO BEDTIME [facility] Last Admin: 02/23/17 20:39 Dose: 100 mg Vitamin B Complex/Vitamin E (Complex B-100*) 1 tab PO DAILY [facility] Last Admin: 02/24/17 09:26 Dose: 1 tab Warfarin Sodium (Coumadin Tab(*)) 5 mg PO 1700 [facility] Stop: 02/24/17 23:00 Last Admin: 02/23/17 18:01 Dose: 5 mg Vital Signs 02/23/17 02/23/17 02/23/17 15:45 16:19 18:02 Temperature 98.3 F Pulse Rate 71 Respiratory 16 16 14 Rate Blood Pressure 153/85 (mmHg) O2 Sat by Pulse 97 Oximetry 02/23/17 02/23/17 02/23/17 20:00 20:04 20:20 Temperature 98.0 F Pulse Rate 69 66 Respiratory 18 18 20 Rate Blood Pressure 217/118 149/105 (mmHg) O2 Sat by Pulse 94 95 Oximetry 02/23/17 02/23/17 02/24/17 20:37 20:39 00:55 Temperature 98.9 F Pulse Rate 62 Respiratory 16 16 17 Rate Blood Pressure 144/80 (mmHg) O2 Sat by Pulse 96 Oximetry 02/24/17 02/24/17 02/24/17 05:12 08:06 09:25 Temperature 98.1 F 98.2 F Pulse Rate 63 63 Respiratory 16 20 18 Rate Blood Pressure 147/96 169/89 (mmHg) O2 Sat by Pulse 97 96 Oximetry 02/24/17 02/24/17 02/24/17 11:25 12:02 13:59 Temperature 98.6 F Pulse Rate 62 Respiratory 20 20 20 Rate Blood Pressure 137/88 (mmHg) O2 Sat by Pulse 95 Oximetry Oxygen Devices in Use Now: None Appearance: sitting in chair, NAD Eyes: No Scleral Icterus, PERRLA Ears/Nose/Mouth/Throat: Mucous Membranes Moist Neck: NL Appearance and Movements; NL JVP, Trachea Midline Respiratory: Symmetrical Chest Expansion and Respiratory Effort, Clear to Auscultation Cardiovascular: - - IRIR Abdominal: - - TTP throughout Extremities: - - 1+ edema in feet with trace edema in LE b/l Neurological: Alert and Oriented x 3 Result Diagrams: 02/24/17 05:34 02/24/17 05:33 Microbiology and Other Data: Microbiology 02/06/17 15:55 Nasal Screen MRSA (PCR)(PER) - Final Nasal Mrsa Positive Assess/Plan/Problems-Billing Mr Templeton is a 66 yo M with a very complicated PMHx who was admitted on 02/06/17 with an internal jugular vein thrombosis (likely catheter related) and was ready for d/c to [facility] on 02/18/17 when he suddenly became hypotensive and bradycardic suspected secondary to marked hyperkalemia. - Patient Problems (1) Bright red blood per rectum Comment: H/H stable. Suspected in setting of hemorrhoidal bleeding. repeat tomorrow (2) Acute hyperkalemia Comment: K 4.[address] Dalal. Will trial lower dose coreg (can cause hyperkalemia) c/w kayexalate (3) Bradycardia Comment: monitor on tele. PPM set at 40 (4) Internal jugular vein thrombosis Comment: INR remains therapeutic-continue coumadin per pharmacy dosing. (5) Abdominal pain Comment: Chronic issue. Nothing to do at this time. (6) DVT prophylaxis Comment: Coumadin (7) ESRF (end stage renal failure) Comment: HD Status and Disposition: .
[2017-02-24] MEDS: Carvedilol TAB* 6.25 MG PO SCH (17:29)
[2017-02-24] MEDS: Warfarin TAB(*) 5 MG PO SCH (17:30)
[2017-02-24] MEDS ORDERED: Sodium Polystyrene ORAL.SOL* 15 GM/60 ML BTL PO SCH (18:05)
[2017-02-24] MEDS: traZODone TAB* 50 MG TAB PO SCH (20:43)
[2017-02-24] MEDS: diPHENhydraMINE PO* 50 MG PO PRN (23:00)
[2017-02-25 05:44] LABS: Hematocrit 29 % (42-52); Hemoglobin 9.3 g/dl (14.0-18.0); Mean Corpuscular HGB Conc 32 g/dl (31-36); Mean Corpuscular Hemoglobin 27 pg (27-31); Mean Corpuscular Volume 83 fL (80-94); Mean Platelet Volume 7 um3 (7.4-10.4); Red Blood Count 3.46 10^6/ul (4.0-5.4); Red Cell Distribution Width 17 % (10.5-15); White Blood Count 4.1 10^3/ul (3.5-10.8)
[2017-02-25 06:00] LABS: BUN/Creatinine Ratio 5.4 (8-20); EGFR African American 8.2 (>60); EGFR Non-African American 6.4 (>60); Potassium 5.2 mmol/L (3.5-5.0)
[2017-02-25] MEDS: Pancrelipase CAP* 5,000 UNITS CAP PO SCH ×2 (08:43→13:33)
[2017-02-25] MEDS: Gabapentin CAP(*) 300 MG PO SCH ×2 (08:43→13:34)
[2017-02-25] MEDS: Lanthanum CHEW TAB* 500 MG PO SCH ×2 (08:44→13:34)
[2017-02-25] MEDS ORDERED: Epoetin Alfa* 10,000 UNITS/ML VIAL IV ONE (10:00)
[2017-02-25] MEDS: Moisturizing CREAM* 113 GM JAR TOPICAL SCH ×2 (13:24→13:36)
[2017-02-25] MEDS: Carvedilol TAB* 6.25 MG PO SCH (13:28)
[2017-02-25] MEDS: amLODIPine TAB* 5 MG PO SCH (13:29)
[2017-02-25] MEDS: Atorvastatin* 10 MG TAB PO SCH (13:30)
[2017-02-25] MEDS: Cinacalcet TAB* 30 MG PO SCH (13:31)
[2017-02-25] MEDS: Citalopram TAB* 20 MG PO SCH (13:31)
[2017-02-25] MEDS: Folic Acid TAB* 1 MG PO SCH (13:32)
[2017-02-25] MEDS: Lisinopril TAB* 10 MG PO SCH (13:32)
[2017-02-25] MEDS: Docusate CAP* 100 MG PO SCH (13:32)
[2017-02-25] MEDS: Vitamin B Complex TAB PO SCH (13:33)
[2017-02-25] MEDS: Omeprazole CAP* 20 MG PO SCH (13:33)
[2017-02-25 15:46] VITALS: BP 160/83
[2017-02-25] MEDS ORDERED: Warfarin TAB(*) 5 MG PO SCH (17:00)
--- NOTE | 2017-02-26 00:54 | DS ---
AMENDED REPORT NOW INCLUDES DATES OF ADMISSION AND DISCHARGE DISCHARGE SUMMARY: DATE OF ADMISSION: 02/06/17 DATE OF DISCHARGE: 02/25/17 PRIMARY CARE PHYSICIAN: Dr. Octaviano Pratt. PRIMARY DIAGNOSES: Internal jugular venous thrombosis. Other primary diagnoses include: 1. Hyperkalemia with resultant bradycardia. 2. Hypotension. SECONDARY DIAGNOSES: Include: 1. End-stage renal disease, on hemodialysis. 2. Hypertension. 3. Chronic abdominal pain. 4. History of coronary artery disease, status post CABG. 5. Peripheral vascular disease. 6. Gastroesophageal reflux disease. 7. Hepatitis C. 8. Anemia. 9. Chronic pain. 10. Cardiomyopathy. 11. ICD placement. MEDICATIONS AT DISCHARGE: Include: 1. Hydralazine 50 mg 3 times a day. 2. Imdur ER 60 mg daily. 3. Trazodone 100 mg at bedtime. 4. Zolpidem 10 mg at bedtime as needed. 5. Kayexalate 15 g Thursday, Thursday, , Thursday. 6. Simvastatin 10 mg daily. 7. Lorazepam 0.5 to 1 mg twice daily as needed. 8. B complex vitamin with folic acid 1 tab daily. 9. Velphoro 2000 mg daily with food. 10. Oxycodone 50 mg every 4 hours as needed for pain. 11. Diphenhydramine 50 mg daily as needed. 12. Acetaminophen 650 mg 3 times daily as needed. 12. Lisinopril 10 mg daily. 13. Citalopram 10 mg daily. 14. Amlodipine 10 mg daily. 15. Pancrelipase 12,000 units daily 4 times a day with meals. 16. Docusate 100 mg daily. 17. Sensipar 30 mg daily. 18. Albuterol 2 puffs inhaled every 4 hours as needed. 19. Omeprazole 40 mg twice daily. 20. Nitroglycerin sublingual 0.4 mg every 5 minutes as needed. 21. Gabapentin 600 mg 3 times a day. 22. Coumadin 5 mg daily. 23. MiraLAX 17 g daily as needed for constipation. 24. Carvedilol 12.5 mg twice daily with meals. Please note decreased from 25 mg twice daily. HISTORY OF PRESENT ILLNESS AND HOSPITAL COURSE: This 66-year-old man presented to [facility] from dialysis with abdominal pain. Originally, CAT scan was concerning for small bowel obstruction; however, the patient's abdominal pain had resolved. He had had no nausea, vomiting, had a bowel movement just minutes before interview. For unknown reasons, the patient underwent a gaona scan with contrast which elucidated possible filling defect occurring in his carotid artery. An ultrasound confirmed filling defect in the opposite carotid artery for which the patient was started on heparin, transitioned to Coumadin. During the course of the hospital stay, he was noted to have twitching, which was thought secondary to morphine, which was discontinued with significant improvement. The patient did go into a junctional escape rhythm, 40 beats per minute. His potassium at that time was noted to be 7.6. It is unclear why the patient became so hyperkalemic. He was consulted in conjunction with Dr. Dalal and we decreased his Coreg suspecting it could potentially be potentiating his hyperkalemia. He was on started on Kayexalate with the regimen as indicated above with improvement in his potassium. His pacemaker was interrogated and set at 40 beats per minute, it was temporarily turned to 70 beats and after resumption of his normal sinus rhythm, the pacemaker was returned to 40 beats per minute. Of important note, the patient had a recent prescription for oxycodone of 75 mg that was filled by a family member at the pharmacy and brought to the patient's room, had all been used when found in the patient's room. The patient claims that he had taken all 75 tabs and at one point where he was more lethargic during the hospital stay, he did receive Narcan with some relief; however, there was noted to be substantial amount of money with the empty narcotic bill and suspected without definitive proof that he may have been diverting this medication. Dr. Pratt notified and also notified appropriate authorities. On the day of discharge, the patient received dialysis, had 4 liters of fluid removed, which is substantially high for this patient. His INR on the day of discharge was 2.19. On the day of discharge, the patient was ambulating __around the unit___ with his walker. He was not discharged with any refills for any narcotics. Reasons to return to the hospital including, but not limited to recurrent or worsening of symptoms including chest pain, shortness of breath, nausea, vomiting, lightheadedness, loss of consciousness, near loss of consciousness, bleeding from any source, inability to obtain or tolerate medications were discussed with the patient at length, he acknowledged understanding. This was a complicated hospital stay. Please refer to complete medical record for further details surrounding this patient's hospital stay. TIME SPENT: Greater than 90 minutes were spent on the discharge of this patient , greater than half was spent [id number] with the patient. CC: Dr. Octaviano Pratt* [id number]/CPS #: [id number] STEPHANIE
--- NOTE | 2017-03-06 10:21 | ED ---
Reese Briones Matthew, scribed for Steven Kowalski MD on 02/06/17 at 0953 . HPI Chest Pain - HPI Summary HPI Summary: A 66 y/o male presents to the ED with constant chest pain since 05:00 this morning. The pain starts at the top of the chest and radiates down into the abdomen, but does not radiate into the back. The patient had the pain during dialysis, but did want to leave dialysis; however he left half an hour earlier than usually. Associated symptoms include headache, SOB, rhinorrhea, abdominal pain and bloating. The patient denies vomiting. He had a recent fistula placed into his right arm at [place] with associated swelling today. He has a Hx of valve repair. No Hx of [place]. The patient states he's taking 15mg of oxycontin and fentanly patches at home. The patient is not on anti-coagulants. I reviewed the CT A/P from February 04, which revealed no aortic aneurysm - History of Current Complaint Time Seen by Provider: 02/06/17 09:51 Hx Obtained From: Patient Onset/Duration: Started Hours Ago, Atraumatic, Still Present Time of Onset: 05:00 Timing: Constant Initial Severity: Moderate Current Severity: Moderate Pain Intensity: 10 Pain Scale Used: 0-10 Numeric Chest Pain Location: Diffuse - from the top of the chest mid sternal to the abdomen Chest Pain Radiates: No Associated Signs and Symptoms: Positive: Chest Pain, Headaches, Shortness of Breath, Abdominal Pain - and bloating, Other: - Rhinorrhea. Negative: Vomiting - Additional Pertinent History Primary Care Physician: [id number] - Allergy/Home Medications Allergies/Adverse Reactions: Allergies Allergy/AdvReac Type Severity Reaction Status Date / Time Aspirin Allergy Unknown See Comment Verified 02/04/17 10:40 Hydromorphone [From Dilaudid] AdvReac Intermediate Nausea And Verified 02/04/17 10:40 Vomiting PMH/Surg Hx/FS Hx/Imm Hx Endocrine/Hematology History: Reports: Hx Blood Transfusions, Hx Sickle Cell Disease - Was told had sickle cell at one point but denies, Hx Anemia Denies: Hx Anticoagulant Therapy, Hx Bone Marrow Disease, Hx Diabetes, Hx Thyroid Disease Cardiovascular History: Reports: Hx Angina, Hx Congestive Heart Failure, Hx Coronary Artery Disease, Hx Hypertension, Hx Pacemaker/ICD, Hx Peripheral Vascular Disease, Hx Syncope, Other Cardiovascular Problems/Disorders - IDDM W/ DIALYSIS 3XPER [facility]K Denies: Hx Cardiomegaly, Hx Hypercholesterolemia, Hx Myocardial Infarction, Hx Rheumatic Fever, Hx Valvular Heart Disease Respiratory History: Reports: Hx Asthma, Hx Chronic Obstructive Pulmonary Disease (COPD), Hx Pleural Effusion, Hx Pneumonia, Other Respiratory Problems/ Disorders - SOB Denies: Hx Pulmonary Edema, Hx Pulmonary Embolism, Hx Sleep Apnea GI History: Reports: Hx Cirrhosis, Hx Gastroesophageal Reflux Disease, Hx Ulcer , Other GI Disorders - peptic ulcer Denies: Hx Crohn's Disease, Hx Hiatal Hernia, Hx Irritable Bowel, Hx Jaundice History: Reports: Hx Acute Renal Failure, Hx Chronic Renal Failure, Hx Dialysis, Hx Renal Disease - ON DIALYSIS, Other Problems/Disorders - end stage renal disease, on dialysis Denies: Hx Kidney Infection, Hx Kidney Stones Musculoskeletal History: Reports: Hx Arthritis, Hx Back Problems - chronic pain , Hx Orthopedic Injury Denies: Hx Rheumatoid Arthritis, Hx Bursitis, Hx Tendonitis, Other Musculoskeletal History Sensory History: Reports: Hx Contacts or Glasses, Hx Glaucoma, Hx Vision Problem Denies: Hx Cataracts, Hx Hearing Aid Opthamlomology History: Reports: Hx Contacts or Glasses, Hx Glaucoma, Hx Vision Problem Denies: Hx Cataracts Neurological History: Reports: Hx Headaches, Hx Migraine, Other Neuro Impairments/Disorders - depression Denies: Hx Dementia, Hx Seizures Psychiatric History: Reports: Hx Anxiety, Hx Depression Denies: Hx Eating Disorder, Hx Panic Disorder, Hx Suicide Attempt, Hx of Violent Episodes Against Others, Hx Substance Abuse - Cancer History Hx Chemotherapy: No Hx Radiation Therapy: No Hx Palliative Cancer Treatment: No - Surgical History Surgery Procedure, Year, and Place: HERNIA REPAIR 2012. APPENDECTOMY 2000. LEFT ARM AV FISTULA/CAD - REMOVED. CABG 1 vessel, mitral & tricuspid valve repair March 02, 2014 AT [facility] CONDITIONAL 5 UPTO 3T. POWER PORT. Mitral and tricuspid valve repair Hx Anesthesia Reactions: No - Immunization History Date of Tetanus Vaccine: 2014 Date of Influenza Vaccine: Fall 2015 Infectious Disease History: Reports: Hx Hepatitis, History Other Infectious Disease - Hepatitis C Denies: Hx Clostridium Difficile, Hx Human Immunodeficiency Virus (HIV), Hx of Known/Suspected MRSA, Hx Shingles, Hx Tuberculosis, Hx Known/Suspected VRE, Hx Known/Suspected VRSA, Traveled Outside the [place] in Last 30 Days - Family History Known Family History: Positive: Cardiac Disease, Hypertension, Other - CVA - Social History Alcohol Use: None Alcohol Amount: former EtOH abuse Hx Substance Use: Yes Substance Use Type: Reports: Marijuana Substance Use Comment - Amount & Last Used: 01/10/2017 Hx Tobacco Use: Yes Smoking Status (MU): Former Smoker Type: Cigarettes Have You Smoked in the Last Year: No Review of Systems Constitutional: Negative Negative: Fever, Chills Eyes: Negative Negative: Erythema Positive: Nasal Discharge. Negative: Sore Throat Positive: Chest Pain Positive: Shortness Of Breath. Negative: Cough Positive: Abdominal Pain - and bloating. Negative: Vomiting Genitourinary: Negative Negative: dysuria, hematuria Musculoskeletal: Negative Negative: Myalgia, Edema Skin: Negative Negative: Rash Positive: Headache Psychological: Normal All Other Systems Reviewed And Are Negative: Yes Physical Exam Triage Information Reviewed: Yes Vital Signs On Initial Exam: Temp Pulse Resp BP Pulse Ox 97.5 F 85 23 224/102 100 02/06/17 10:06 02/06/17 10:13 02/06/17 10:52 02/06/17 10:13 02/06/17 10:13 Vital Signs Reviewed: Yes Appearance: Positive: Pain Distress - moderate Skin: Positive: Diaphoretic, Other - Midline surgical chest scar Head/Face: Positive: Other - Normocephalic; Atraumatic Eyes: Positive: Conjunctiva Clear Dental: Negative: Cervical Lymphadenopathy Neck: Positive: No Lymphadenopathy, Other: - Full ROM; No JVD Respiratory/Lung Sounds: Positive: Other - Normal Effort; No respiratory distress. Negative: Rales, Stridor, Tracheal Deviation, Wheezes Cardiovascular: Positive: RRR, Other - Rhythm regular, rate normal, Heart sounds normal; Intact distal pulses; The pedal pulses are 2+ and symmetric. Radial pulses are 2+ and symmetric. Negative: Murmur Abdomen Description: Positive: Soft, Other: - Tender epigastrium with abdominal distention.. Negative: Distended, Guarding Musculoskeletal: Negative: Edema Left, Edema Right Neurological: Positive: Alert, Oriented to Person Place, Time Psychiatric: Positive: Affect/Mood Appropriate Diagnostics - Laboratory Result Diagrams: 02/06/17 09:55 02/06/17 09:55 Lab Statement: Any lab studies that have been ordered have been reviewed, and results considered in the medical decision making process. - Radiology CXR Xray Interpretation: Positive (See Comments) - IMPRESSION: SMALL LEFT PLEURAL EFFUSION WITH LINEAR ATELECTASIS VERSUS PLEURAL PARENCHYMAL SCARRING OF LEFT LUNG BASE. Radiology Interpretation Completed By: Radiologist - CT Chest/Abdomen/Pelivs CT CT Interpretation: Positive (See Comments) - IMPRESSION: 1. FILLING DEFECT WITHIN THE LEFT INTERNAL JUGULAR VEIN CONCERNING FOR LEFT IJ THROMBUS. 2. BORDERLINE ENLARGED AXILLARY LYMPH NODES. 3. ENLARGEMENT OF THE PULMONARY ARTERY WITH TO THE AORTA SUGGESTIVE ARTERIAL HYPERTENSION. 4. MILD DILATATION OF SMALL BOWEL LOOPS PROXIMALLY WITH DECOMPRESSED BOWEL DISTALLY SUGGESTIVE OF SMALL BOWEL OBSTRUCTION. 5. ATHEROSCLEROSIS. CT Interpretation Completed By: Radiologist - EKG 09:34 Cardiac Rate: NL - 99 bpm EKG Rhythm: Sinus Rhythm EKG Interpretation: No STEMI EKG Comparison: No Significant Change Re-Evaluation - Re-Evaluation First Eval Re-Evaluation Time: 13:24 Change: Improved Comment: The patient states that the pain was relieved after morphine. Chest Pain Course/Dx - Course Assessment/Plan: A 66 y/o male presents to the ED with constant chest pain since 05:00 this morning. The pain starts at the top of the chest and radiates down into the abdomen, but does not radiate into the back. The patient had the pain during dialysis, but did want to leave dialysis; however he left half an hour earlier than usually. Associated symptoms include headache, SOB, rhinorrhea , abdominal pain and bloating. The patient denies vomiting. Labs were reviewed. CT shows 1. filling defect within the left internal jugular vein concerning for left ij thrombus. 2. borderline enlarged axillary lymph nodes. 3. enlargement of the pulmonary artery with to the aorta suggestive arterial hypertension. 4. mild dilatation of small bowel loops proximally with decompressed bowel distally suggestive of small bowel obstruction. 5. atherosclerosis. CXR shows small left pleural effusion with linear atelectasis versus pleural parenchymal scarring of left lung base. EKG shows sinus rhythm at 99 bpm. Discussed the case with Dr. Matute who will admit the patient into his care. - Diagnoses Provider Diagnoses: SBO (small bowel obstruction), Jugular vein thrombosis, Chest pain, unspecified - Provider Notifications Discussed Care Of Patient With: Dr. Matute (Hospitalist) at 13:08 -- Notified of patient's history and will admit the patient. Discharge - Discharge Plan Condition: Stable Disposition: ADMITTED TO [facility] Referrals: Octaviano Pratt MD [Primary Care Provider] - The documentation as recorded by the Reese casey Matthew accurately reflects the service I personally performed and the decisions made by me, Steven Kowalski MD.
== END 2017-02-25 16:00 | disposition home or self-care (01) | DRG 314 ==
LOC: ED 09:49 → MEDTELE 15:50 → ICU 02-18 09:43 → MEDTELE 02-19 08:26
PROVIDERS: ADMIT Hospitalist; ATTEND Internal Medicine
PROC: 5A1D60Z (ICD-10-PCS; 2017-02-09)
PROC: 05WYX3Z Revision of Infusion Device in Upper Vein, External Approach (ICD-10-PCS; principal; 2017-02-12)
PROC: 4B02XTZ Measurement of Cardiac Defibrillator, External Approach (ICD-10-PCS; 2017-02-19)
DX: T82.868A Thrombosis due to vascular prosthetic devices, implants and grafts, initial encounter (principal); N18.6 End stage renal disease; I12.0 Hypertensive chronic kidney disease with stage 5 chronic kidney disease or end stage renal disease; I95.9 Hypotension, unspecified; I82.C11 Acute embolism and thrombosis of right internal jugular vein; I42.9 Cardiomyopathy, unspecified; I80.8 Phlebitis and thrombophlebitis of other sites; K62.5 Hemorrhage of anus and rectum; I48.91 Unspecified atrial fibrillation; I25.10 Atherosclerotic heart disease of native coronary artery without angina pectoris; K21.9 Gastro-esophageal reflux disease without esophagitis; B19.20 Unspecified viral hepatitis C without hepatic coma; G89.29 Other chronic pain; R10.9 Unspecified abdominal pain; R07.9 Chest pain, unspecified; D63.1 Anemia in chronic kidney disease; B35.4 Tinea corporis; R25.3 Fasciculation; T40.2X5A Adverse effect of other opioids, initial encounter; E87.5 Hyperkalemia; I49.9 Cardiac arrhythmia, unspecified; Z79.01 Long term (current) use of anticoagulants; Z99.2 Dependence on renal dialysis; Z95.1 Presence of aortocoronary bypass graft; Z95.810 Presence of automatic (implantable) cardiac defibrillator; Z88.6 Allergy status to analgesic agent; Z88.5 Allergy status to narcotic agent; Z87.891 Personal history of nicotine dependence; Y92.9 Unspecified place or not applicable; Y73.1 Therapeutic (nonsurgical) and rehabilitative gastroenterology and urology devices associated with adverse incidents
CPT/HCPCS: 36415; 36600; 70450; 71010; 71020; 71260; 72110; 74176; 74177; 80048; 80051; 80053; 82272; 82310; 82550; 82803; 83605; 83615; 83690; 83735; 84100; 84132; 84484; 84520; 85014; 85018; 85025; 85027; 85049; 85610; 85730; 86140; 87641; 90935; 93005; 93970; 94760; 99283; A9270-GY; C1750; G0257; J0885; J1644; J2270; J2310; J2405; Q9967

== ENCOUNTER 2017-03-08 01:22 | Emergency (ER) | payer MEDICARE, MEDICAID ==
[2017-03-08] MEDS ORDERED: Morphine INJ* 4 MG/ML 1 ML SYRINGE IM ONE (03:55)
[2017-03-08 08:14] VITALS: BP 211/122
--- NOTE | 2017-03-08 08:27 | RAD ---
INDICATION: Pain and swelling. History of right jugular venous obstruction COMPARISON: Jugular duplex examination February 06, 2017; left upper extremity duplex examination March 10, 2016 TECHNIQUE: Duplex interrogation of the Lowerextremity was performed. FINDINGS: Deep veins: The visualized jugular is patent. There is stasis within the visualized subclavian vein. The remainder of the deep venous structures are patent. At the level of forearm there is superficial venous thrombosis compatible with thrombophlebitis. Soft tissues:There are no soft tissue abnormalities. IMPRESSION: No deep venous thrombosis. Subclavian stasis. Superficial thrombophlebitis of the forearm
--- NOTE | 2017-03-08 12:12 | ED ---
IDevon Billy, scribed for Oskar Reyes MD on 03/08/17 at 0915 . Progress - Progress Note Progress Note: Patient was signed out by Dr. Kowalski pending ultrasound of the left upper extremity, which shows a superficial thrombophlebitis. Patient is already taking Coumadin, therefore he will be discharged home to follow up with PCP. He has no further complaints at this time. He was instructed to return to the ED with fevers, chills, or increase in pain. - Results/Orders Results/Orders: YOLANDA ultrasound impression: No deep venous thrombosis. Subclavian stasis. Superficial thrombophlebitis of the forearm Re-Evaluation - Re-Evaluation First Eval Re-Evaluation Time: 09:19 Comment: Ultrasound findings reviewed with the patient. Course/Dx - Diagnoses Provider Diagnoses: Superficial thrombophlebitis Discharge - Discharge Plan Condition: Stable Disposition: HOME Patient Education Materials: Superficial Thrombophlebitis (ED) Referrals: Octaviano Pratt MD [Primary Care Provider] - The documentation as recorded by the Devon casey Billy accurately reflects the service I personally performed and the decisions made by , Oskar Reyes MD.
== END 2017-03-08 09:47 | disposition home or self-care (01) ==
LOC: ED 01:22
DX: I80.8 Phlebitis and thrombophlebitis of other sites (principal)
CPT/HCPCS: 96372; 99282; J2270

== ENCOUNTER 2017-03-09 09:27 | Emergency (ER) | payer MEDICARE, MEDICAID ==
[2017-03-09 09:35] VITALS: BP 1/1
[2017-03-09 12:13] LABS: Hematocrit 34 % (42-52); Mean Corpuscular HGB Conc 32 g/dl (31-36); Mean Corpuscular Hemoglobin 27 pg (27-31); Mean Corpuscular Volume 85 fL (80-94); Mean Platelet Volume 7 um3 (7.4-10.4); Red Blood Count 4.05 10^6/ul (4.0-5.4); Red Cell Distribution Width 18 % (10.5-15); White Blood Count 6.8 10^3/ul (3.5-10.8)
[2017-03-09] MEDS ORDERED: Acetaminophen TAB* 325 MG PO ONE (13:03)
[2017-03-09] MEDS ORDERED: Acetaminophen TAB* 325 MG ONE (13:05)
--- NOTE | 2017-03-09 13:13 | RAD ---
Indication: Left upper extremity edema with pain. Duplex Doppler sonography of the left upper kidney deep venous system was performed. Comparison is made with a prior left upper kidney venous ultrasound performed on March 08, 2017 as well as a recent jugular vein ultrasound performed on February 06, 2017. There is clot in the right internal jugular vein with some peripheral flow noted. Findings were present on February 06, 2017. There is also partial thrombosis of the right subclavian vein just adjacent to the internal jugular vein. In the left upper extremity the axillary vein, brachial vein and basilic vein appears patent. There is near total thrombosis of the left cephalic vein. The radial vein and ulnar vein are patent. There appears to be chronic thrombus involving the left brachial artery. IMPRESSION: Right internal jugular vein and right subclavian vein thrombosis with partial recanalization of the right subclavian vein. The left cephalic vein demonstrates stasis with near complete occlusion similar in extent to that seen on March 08, 2017. The deep venous system in the left upper extremity is patent.
[2017-03-09] MEDS ORDERED: oxyCODONE/Acetamin 5/325 MG* TAB PO ONE (14:49)
--- NOTE | 2017-03-22 14:39 | ED ---
Upper Extremity Pain - HPI Summary HPI Summary: Pt here w/ Lt arm pain, swelling and erythema for 7 days. He was in the hospital recently and had an IV line here - concerned it may be infected. Denies fever, chills. When seen yesterday, he had an U/S to asses for clot. He was dx'd w/ superficial thrombophlebitis. Since he is already taking coumadin, no further medications were ordered. Has a complex med hx including renal failure w/ dialysis QOD. Has tried heat/ice at home w/o relief. - History of Current Complaint Chief Complaint: EDExtremityUpper Stated Complaint: LT ARM PAIN Time Seen by Provider: 03/09/17 10:28 Hx Obtained From: Patient - Allergies/Home Medications Allergies/Adverse Reactions: Allergies Allergy/AdvReac Type Severity Reaction Status Date / Time Aspirin Allergy Unknown See Comment Verified 03/09/17 14:01 Hydromorphone [From Dilaudid] AdvReac Intermediate Nausea And Verified 03/09/17 14:01 Vomiting PMH/Surg Hx/FS Hx/Imm Hx Previously Healthy: No - pt struggles w/ multiple comorbidities, in/out of hospital Endocrine/Hematology History: Reports: Hx Blood Transfusions, Hx Sickle Cell Disease - Was told had sickle cell at one point but denies, Hx Anemia Denies: Hx Anticoagulant Therapy, Hx Bone Marrow Disease, Hx Diabetes, Hx Thyroid Disease Cardiovascular History: Reports: Hx Angina, Hx Auto Implanted Cardiovert Defib, Hx Congestive Heart Failure, Hx Coronary Artery Disease, Hx Hypertension, Hx Pacemaker/ICD, Hx Peripheral Vascular Disease, Hx Syncope, Other Cardiovascular Problems/Disorders - cardiomegaly, mitral valve and tricuspid valve repair Denies: Hx Cardiomegaly, Hx Hypercholesterolemia, Hx Myocardial Infarction, Hx Rheumatic Fever, Hx Valvular Heart Disease Respiratory History: Reports: Hx Asthma, Hx Chronic Obstructive Pulmonary Disease (COPD), Hx Pleural Effusion, Hx Pneumonia, Other Respiratory Problems/ Disorders - SOB Denies: Hx Pulmonary Edema, Hx Pulmonary Embolism, Hx Sleep Apnea GI History: Reports: Hx Cirrhosis, Hx Gastroesophageal Reflux Disease, Hx Ulcer - peptic ulcer, Other GI Disorders - hep C Denies: Hx Crohn's Disease, Hx Hiatal Hernia, Hx Irritable Bowel, Hx Jaundice History: Reports: Hx Acute Renal Failure, Hx Chronic Renal Failure, Hx Dialysis, Hx Renal Disease, Other Problems/Disorders - end stage renal disease, on dialysis Denies: Hx Kidney Infection, Hx Kidney Stones Musculoskeletal History: Reports: Hx Arthritis, Hx Back Problems - chronic pain , Hx Orthopedic Injury Denies: Hx Rheumatoid Arthritis, Hx Bursitis, Hx Tendonitis, Other Musculoskeletal History Sensory History: Reports: Hx Contacts or Glasses, Hx Glaucoma, Hx Vision Problem Denies: Hx Cataracts, Hx Hearing Aid Opthamlomology History: Reports: Hx Contacts or Glasses, Hx Glaucoma, Hx Vision Problem Denies: Hx Cataracts Neurological History: Reports: Hx Headaches, Hx Migraine, Other Neuro Impairments/Disorders - depression Denies: Hx Dementia, Hx Seizures Psychiatric History: Reports: Hx Anxiety, Hx Depression Denies: Hx Eating Disorder, Hx Panic Disorder, Hx Suicide Attempt, Hx of Violent Episodes Against Others, Hx Substance Abuse - Cancer History Hx Chemotherapy: No Hx Radiation Therapy: No Hx Palliative Cancer Treatment: No - Surgical History Surgery Procedure, Year, and Place: HERNIA REPAIR 2012. APPENDECTOMY 2000. LEFT ARM AV FISTULA/CAD - REMOVED. CABG 1 vessel, mitral & tricuspid valve repair March 02, 2014 AT [facility] CONDITIONAL 5 UPTO 3T. POWER PORT. Mitral and tricuspid valve repair Hx Anesthesia Reactions: No - Immunization History Date of Tetanus Vaccine: 2014 Date of Influenza Vaccine: Fall 2015 Infectious Disease History: No Infectious Disease History: Reports: Hx Hepatitis, Hx of Known/Suspected MRSA, History Other Infectious Disease - Hepatitis C Denies: Hx Clostridium Difficile, Hx Human Immunodeficiency Virus (HIV), Hx Shingles, Hx Tuberculosis, Hx Known/Suspected VRE, Hx Known/Suspected VRSA, Traveled Outside the in Last 30 Days - Family History Known Family History: Positive: Cardiac Disease, Hypertension, Other - CVA - Social History Occupation: Disabled Alcohol Use: None Alcohol Amount: former EtOH abuse Hx Substance Use: Yes Substance Use Type: Reports: None - currently Substance Use Comment - Amount & Last Used: 01/10/2017 Hx Tobacco Use: Yes Smoking Status (MU): Former Smoker Type: Cigarettes Have You Smoked in the Last Year: No Review of Systems Constitutional: Negative Negative: Fever, Chills Positive: no symptoms reported Positive: Edema - see HPI. Negative: Decreased ROM Skin: Other - see HPI Neurological: Negative Negative: Weakness, Paresthesia, Numbness Psychological: Normal All Other Systems Reviewed And Are Negative: Yes Physical Exam Triage Information Reviewed: Yes Vital Signs On Initial Exam: Initial Vitals Temp Pulse Resp Pulse Ox 98.7 F 83 16 98 03/09/17 09:29 03/09/17 09:29 03/09/17 09:29 03/09/17 09:29 Vital Signs Reviewed: Yes Appearance: Positive: Well-Appearing, Well-Nourished, Pain Distress - pt reports pain while in room - appears comfortable seated on stretcher Skin: Positive: Warm, Dry - focal 3cm area of raised firm erythema over Lt dorsal forearm - warm to touch, TTP - no fluctuance, no induration of surrounding skin, no d/c, no central pore Head/Face: Positive: Normal Head/Face Inspection Eyes: Positive: EOMI ENT: Positive: Hearing grossly normal Respiratory/Lung Sounds: Positive: Breath Sounds Present Cardiovascular: Positive: Pulses are Symmetrical in both Upper and Lower Extremities - Kian Coma Scale Coma Scale Total: 15 Diagnostics - Vital Signs Vital Signs Temp Pulse Resp BP Pulse Ox 03/09/17 15:30 99.1 F 03/09/17 15:06 18 03/09/17 11:30 99.4 F 03/09/17 09:34 98.7 F 82 20 1/1 98 03/09/17 09:29 98.7 F 83 16 98 - Laboratory Lab Results: Lab Results 03/09/17 03/09/17 03/09/17 Range/Units 12:00 12:00 12:00 WBC 6.8 (3.5-10.8) 10^3/ul RBC 4.05 (4.0-5.4) 10^6/ul Hgb 11.0 L (14.0-18.0) g/dl Hct 34 L (42-52) % MCV 85 (80-94) fL MCH 27 (27-31) pg MCHC 32 (31-36) g/dl RDW 18 H (10.5-15) % Plt Count 158 (150-450) 10^3/ul MPV 7 L (7.4-10.4) um3 Neut % (Auto) 75.7 (38-83) % Lymph % (Auto) 10.4 L (25-47) % [place] % (Auto) 10.9 H (1-9) % Eos % (Auto) 2.1 (0-6) % Baso % (Auto) 0.9 (0-2) % Absolute Neuts (auto) 5.1 (1.5-7.7) 10^3/ul Absolute Lymphs (auto) 0.7 L (1.0-4.8) 10^3/ul Absolute Monos (auto) 0.7 (0-0.8) 10^3/ul Absolute Eos (auto) 0.1 (0-0.6) 10^3/ul Absolute Basos (auto) 0.1 (0-0.2) 10^3/ul Absolute Nucleated RBC 0 10^3/ul Nucleated RBC % 0 INR (Anticoag Therapy) 1.56 H (0.89-1.11) Lactic Acid 0.8 (0.5-2.0) mmol/L C-Reactive Protein (< 5.00) mg/L 03/09/17 Range/Units 12:00 WBC (3.5-10.8) 10^3/ul RBC (4.0-5.4) 10^6/ul Hgb (14.0-18.0) g/dl Hct (42-52) % MCV (80-94) fL MCH (27-31) pg MCHC (31-36) g/dl RDW (10.5-15) % Plt Count (150-450) 10^3/ul MPV (7.4-10.4) um3 Neut % (Auto) (38-83) % Lymph % (Auto) (25-47) % [place] % (Auto) (1-9) % Eos % (Auto) (0-6) % Baso % (Auto) (0-2) % Absolute Neuts (auto) (1.5-7.7) 10^3/ul Absolute Lymphs (auto) (1.0-4.8) 10^3/ul Absolute Monos (auto) (0-0.8) 10^3/ul Absolute Eos (auto) (0-0.6) 10^3/ul Absolute Basos (auto) (0-0.2) 10^3/ul Absolute Nucleated RBC 10^3/ul Nucleated RBC % INR (Anticoag Therapy) (0.89-1.11) Lactic Acid (0.5-2.0) mmol/L C-Reactive Protein 1.08 (< 5.00) mg/L Result Diagrams: 05/22/17 12:00 Diagnostic Studies Comment: U/S REPORT LT UPPER EXTREMITY: 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 Lt cephalic v demonstrates stasis with near complete occlusion similar in extent to that seen on March 08, 2017. The deep venous system in the LUE is patent. Discussed w/ Dr. Durán - no change from previous - no abscess collection observed. Lab Statement: Any lab studies that have been ordered have been reviewed, and results considered in the medical decision making process. Course/Dx - Course Course Of Treatment: Discussed dx w/ pt and lack of abscess on U/S, so will defer I&D today. Started anbx and advised f/u if worse. Pt agrees w/ plan. - Diagnoses Provider Diagnoses: Superficial thrombophlebitis of left upper extremity Discharge - Discharge Plan Condition: Stable Disposition: HOME Prescriptions: Cephalexin CAP* [Keflex CAP*] 500 mg PO BID #14 cap Patient Education Materials: Superficial Thrombophlebitis (ED) Referrals: Octaviano Pratt MD [Primary Care Provider] - Additional Instructions: Warm compress Acetaminophen Elevate Complete antibiotics Follow-up with PCP in 2-3 days *If you develop fever, chills, streaking, return to ED NOTE: it was also identified that your coumadin level is lower than should be. Please call your PCP tomorrow to adjust medication and close follow-up for lab checks.
== END 2017-03-10 01:00 | disposition home or self-care (01) ==
LOC: ED 09:27
DX: I80.8 Phlebitis and thrombophlebitis of other sites (principal); M79.602 Pain in left arm; Z87.891 Personal history of nicotine dependence; Z88.6 Allergy status to analgesic agent; Z88.5 Allergy status to narcotic agent; D57.1 Sickle-cell disease without crisis; I25.119 Atherosclerotic heart disease of native coronary artery with unspecified angina pectoris; I11.0 Hypertensive heart disease with heart failure; I50.9 Heart failure, unspecified; J44.9 Chronic obstructive pulmonary disease, unspecified; R06.02 Shortness of breath; I60.9 Nontraumatic subarachnoid hemorrhage, unspecified; R07.9 Chest pain, unspecified
CPT/HCPCS: 36415; 71020; 80048; 83605; 83735; 84484; 85025; 85610; 86140; 96372; 99282; 99283; A9270-GY; J2270

== ENCOUNTER 2017-03-09 23:29 | Emergency (ER) | payer MEDICARE, MEDICAID ==
[2017-03-09] MEDS ORDERED: Morphine INJ* 10 MG/ML 1 ML SYRINGE SUBCUT ONE (23:45)
--- NOTE | 2017-03-09 23:54 | ED ---
I, Zana,Jack, scribed for Luis Fernando Jimenez MD on 03/09/17 at 2348 . HPI Chest Pain - HPI Summary HPI Summary: This 66 y/o male presents to ED for left lateral chest/abd pain and SOB since this morning. Pt has been dialyzed this morning without any complication. Pain is worse with deep breath, coughing, and movement. PMHx is complex with Hep C, CAD s/p CABG, cardiac valvular disease, HTN, chronic pain, PUD, and ESRD with MWF dialysis. - History of Current Complaint Chief Complaint: EDShortnessOfBreath Time Seen by Provider: 03/09/17 23:38 Hx Obtained From: Patient, Medical Records Onset/Duration: Started Hours Ago, Atraumatic, Still Present Timing: Constant Chest Pain Location: Left Lateral Chest Pain Radiates: No Character: Dull/Aching Aggravating Factor(s): Movement, Deep Breaths, Other: - coughing Alleviating Factor(s): Rest Associated Signs and Symptoms: Positive: Chest Pain, Shortness of Breath - Additional Pertinent History Primary Care Physician: [id number] - Allergy/Home Medications Allergies/Adverse Reactions: Allergies Allergy/AdvReac Type Severity Reaction Status Date / Time Aspirin Allergy Unknown See Comment Verified 03/09/17 14:01 Hydromorphone [From Dilaudid] AdvReac Intermediate Nausea And Verified 03/09/17 14:01 Vomiting PMH/Surg Hx/FS Hx/Imm Hx Endocrine/Hematology History: Reports: Hx Blood Transfusions, Hx Sickle Cell Disease - Was told had sickle cell at one point but denies, Hx Anemia Denies: Hx Anticoagulant Therapy, Hx Bone Marrow Disease, Hx Diabetes, Hx Thyroid Disease Cardiovascular History: Reports: Hx Angina, Hx Auto Implanted Cardiovert Defib, Hx Congestive Heart Failure, Hx Coronary Artery Disease, Hx Hypertension, Hx Pacemaker/ICD, Hx Peripheral Vascular Disease, Hx Syncope, Other Cardiovascular Problems/Disorders - cardiomegaly, mitral valve and tricuspid valve repair Denies: Hx Cardiomegaly, Hx Hypercholesterolemia, Hx Myocardial Infarction, Hx Rheumatic Fever, Hx Valvular Heart Disease Respiratory History: Reports: Hx Asthma, Hx Chronic Obstructive Pulmonary Disease (COPD), Hx Pleural Effusion, Hx Pneumonia, Other Respiratory Problems/ Disorders - SOB Denies: Hx Pulmonary Edema, Hx Pulmonary Embolism, Hx Sleep Apnea GI History: Reports: Hx Cirrhosis, Hx Gastroesophageal Reflux Disease, Hx Ulcer - peptic ulcer, Other GI Disorders - hep C Denies: Hx Crohn's Disease, Hx Hiatal Hernia, Hx Irritable Bowel, Hx Jaundice History: Reports: Hx Acute Renal Failure, Hx Chronic Renal Failure, Hx Dialysis, Hx Renal Disease, Other Problems/Disorders - end stage renal disease, on dialysis Denies: Hx Kidney Infection, Hx Kidney Stones Musculoskeletal History: Reports: Hx Arthritis, Hx Back Problems - chronic pain , Hx Orthopedic Injury Denies: Hx Rheumatoid Arthritis, Hx Bursitis, Hx Tendonitis, Other Musculoskeletal History Sensory History: Reports: Hx Contacts or Glasses, Hx Glaucoma, Hx Vision Problem Denies: Hx Cataracts, Hx Hearing Aid Opthamlomology History: Reports: Hx Contacts or Glasses, Hx Glaucoma, Hx Vision Problem Denies: Hx Cataracts Neurological History: Reports: Hx Headaches, Hx Migraine, Other Neuro Impairments/Disorders - depression Denies: Hx Dementia, Hx Seizures Psychiatric History: Reports: Hx Anxiety, Hx Depression Denies: Hx Eating Disorder, Hx Panic Disorder, Hx Suicide Attempt, Hx of Violent Episodes Against Others, Hx Substance Abuse - Cancer History Hx Chemotherapy: No Hx Radiation Therapy: No Hx Palliative Cancer Treatment: No - Surgical History Surgery Procedure, Year, and Place: HERNIA REPAIR 2012. APPENDECTOMY 2000. LEFT ARM AV FISTULA/CAD - REMOVED. CABG 1 vessel, mitral & tricuspid valve repair March 02, 2014 AT [facility] CONDITIONAL 5 UPTO 3T. POWER PORT. Mitral and tricuspid valve repair Hx Anesthesia Reactions: No - Immunization History Date of Tetanus Vaccine: 2014 Date of Influenza Vaccine: Fall 2015 Infectious Disease History: Reports: Hx Hepatitis, Hx of Known/Suspected MRSA, History Other Infectious Disease - Hepatitis C Denies: Hx Clostridium Difficile, Hx Human Immunodeficiency Virus (HIV), Hx Shingles, Hx Tuberculosis, Hx Known/Suspected VRE, Hx Known/Suspected VRSA, Traveled Outside the [place] in Last 30 Days - Family History Known Family History: Positive: Cardiac Disease, Hypertension, Other - CVA - Social History Alcohol Use: None Alcohol Amount: former EtOH abuse Hx Substance Use: Yes Substance Use Type: Reports: None Substance Use Comment - Amount & Last Used: 01/10/2017 Hx Tobacco Use: Yes Smoking Status (MU): Former Smoker Type: Cigarettes Have You Smoked in the Last Year: No Review of Systems Negative: Fever Positive: Chest Pain Positive: Shortness Of Breath All Other Systems Reviewed And Are Negative: Yes Physical Exam Triage Information Reviewed: Yes Vital Signs Reviewed: Yes Appearance: Positive: Well-Appearing, No Pain Distress Skin: Positive: Warm Head/Face: Positive: Normal Head/Face Inspection Eyes: Positive: KINGS ENT: Positive: Hearing grossly normal Neck: Positive: Supple Respiratory/Lung Sounds: Positive: Clear to Auscultation, Breath Sounds Present Cardiovascular: Positive: RRR, S4 Abdomen Description: Positive: Nontender, No Organomegaly, Soft Bowel Sounds: Positive: Present Musculoskeletal: Positive: Strength/ROM Intact Diagnostics - Laboratory Result Diagrams: 03/10/17 01:00 03/10/17 01:00 Lab Statement: Any lab studies that have been ordered have been reviewed, and results considered in the medical decision making process. - Radiology CXR Radiology Interpretation Completed By: ED Physician - See EMR for official reading Re-Evaluation - Re-Evaluation First Eval Change: Improved Chest Pain Course/Dx - Diagnoses Provider Diagnoses: Shortness of breath, Hypertensive urgency Discharge - Discharge Plan Condition: Stable Disposition: HOME Patient Education Materials: Dyspnea (ED) Referrals: [facility] [place] [facility] [Outside] - 2 Days Additional Instructions: Please continue your current treatment as instructed. The documentation as recorded by the Zana casey Soohyun accurately reflects the service I personally performed and the decisions made by , Luis Fernando Jimenez MD.
[2017-03-10 01:36] LABS: Hematocrit 31 % (42-52); Mean Corpuscular HGB Conc 32 g/dl (31-36); Mean Corpuscular Hemoglobin 27 pg (27-31); Mean Corpuscular Volume 85 fL (80-94); Mean Platelet Volume 8 um3 (7.4-10.4); Red Blood Count 3.64 10^6/ul (4.0-5.4); Red Cell Distribution Width 19 % (10.5-15); White Blood Count 6.2 10^3/ul (3.5-10.8)
[2017-03-10 01:49] LABS: BUN/Creatinine Ratio 4.8 (8-20); Calcium 9.8 mg/dL (8.6-10.3); EGFR African American 8.9 (>60); EGFR Non-African American 6.9 (>60); Magnesium 2.4 mg/dL (1.9-2.7)
[2017-03-10 01:54] LABS: Troponin I 0.04 ng/mL (<0.04)
[2017-03-10 04:41] VITALS: BP 172/121
--- NOTE | 2017-03-10 07:33 | RAD ---
INDICATION: Chest pain COMPARISON: Chest x-ray February 06, 2017 TECHNIQUE: PA and lateral dual-energy views were obtained. FINDINGS: Bones/Soft Tissues: There are no acute bony findings. There is sternotomy. There is a left-sided cardiac pacemaker. There is a right sided dialysis catheter. Cardiomediastinal: The cardiomediastinal silhouette is normal. There is valvular surgery with mitral valve replacement. There is minor interstitial congestion. Lungs: There is stable bibasilar infiltrate or atelectasis. Pleura: Small bilateral pleural effusions left greater than right.. Other: None IMPRESSION: POSTOPERATIVE CHANGES. MILD INTERSTITIAL CONGESTION WITH SMALL BASILAR INFILTRATES OR ATELECTASIS AND SMALL PLEURAL EFFUSIONS. NO SIGNIFICANT INTERVAL CHANGE.
== END 2017-03-10 04:43 | disposition home or self-care (01) ==
LOC: ED 23:29
DX: R06.02 Shortness of breath (principal); I16.0 Hypertensive urgency; R07.9 Chest pain, unspecified
CPT/HCPCS: 36415; 71020; 80048; 83735; 84484; 85025; 96372; 99283; J2270

== ENCOUNTER 2017-03-11 10:31 | Emergency (ER) | payer MEDICARE, MEDICAID ==
[2017-03-11] MEDS ORDERED: oxyCODONE/Acetamin 5/325 MG* TAB PO ONE (12:00)
[2017-03-11] MEDS ORDERED: cefTRIAXone VIAL(*) 1,000 MG in NS 0.9% 50 ML* 50 ML IVPB ONE (12:00)
[2017-03-11] MEDS ORDERED: Lidocaine 1%* 5 ML VIAL ONE (12:36)
[2017-03-11] MEDS ORDERED: cefTRIAXone VIAL(*) 1,000 MG VIAL IM ONE (12:41)
[2017-03-11 13:11] VITALS: BP 176/98
--- NOTE | 2017-03-11 21:09 | ED ---
Devon Briones Billy, scribed for Oskar Reyes MD on 03/11/17 at 1151 . Skin Complaint - HPI Summary HPI Summary: Patient is a 66 year-old male coming to [facility] for evaluation of an abscess on the left forearm that has been gradually worsening for the last week. Pain severity is 10/10, worse with any directly applied pressure. He has no other symptoms at this time. Patient has been taking Keflex. - History of Current Complaint Chief Complaint: EDRashSkinAbscess Time Seen by Provider: 03/11/17 10:57 Stated Complaint: ABSCESS Hx Obtained From: Patient Onset/Duration: Started Days Ago Timing: Constant Onset Severity: Moderate Current Severity: Moderate Pain Intensity: 10 Pain Scale Used: 0-10 Numeric Skin Location: Arm Character: Pain, Raised Aggravating Symptom(s): Touch Alleviating Symptom(s): Nothing Associated Signs & Symptoms: Negative - Additional Pertinent History Primary Care Physician: [id number] - Allergy/Home Medications Allergies/Adverse Reactions: Allergies Allergy/AdvReac Type Severity Reaction Status Date / Time Aspirin Allergy Unknown See Comment Verified 03/09/17 14:01 Hydromorphone [From Dilaudid] AdvReac Intermediate Nausea And Verified 03/09/17 14:01 Vomiting PMH/Surg Hx/FS Hx/Imm Hx Endocrine/Hematology History: Reports: Hx Blood Transfusions, Hx Sickle Cell Disease - Was told had sickle cell at one point but denies, Hx Anemia Denies: Hx Anticoagulant Therapy, Hx Bone Marrow Disease, Hx Diabetes, Hx Thyroid Disease Cardiovascular History: Reports: Hx Angina, Hx Auto Implanted Cardiovert Defib, Hx Congestive Heart Failure, Hx Coronary Artery Disease, Hx Hypertension, Hx Pacemaker/ICD, Hx Peripheral Vascular Disease, Hx Syncope, Other Cardiovascular Problems/Disorders - cardiomegaly, mitral valve and tricuspid valve repair Denies: Hx Cardiomegaly, Hx Hypercholesterolemia, Hx Myocardial Infarction, Hx Rheumatic Fever, Hx Valvular Heart Disease Respiratory History: Reports: Hx Asthma, Hx Chronic Obstructive Pulmonary Disease (COPD), Hx Pleural Effusion, Hx Pneumonia, Other Respiratory Problems/ Disorders - SOB Denies: Hx Pulmonary Edema, Hx Pulmonary Embolism, Hx Sleep Apnea GI History: Reports: Hx Cirrhosis, Hx Gastroesophageal Reflux Disease, Hx Ulcer - peptic ulcer, Other GI Disorders - hep C Denies: Hx Crohn's Disease, Hx Hiatal Hernia, Hx Irritable Bowel, Hx Jaundice History: Reports: Hx Acute Renal Failure, Hx Chronic Renal Failure, Hx Dialysis, Hx Renal Disease, Other Problems/Disorders - end stage renal disease, on dialysis Denies: Hx Kidney Infection, Hx Kidney Stones Musculoskeletal History: Reports: Hx Arthritis, Hx Back Problems - chronic pain , Hx Orthopedic Injury Denies: Hx Rheumatoid Arthritis, Hx Bursitis, Hx Tendonitis, Other Musculoskeletal History Sensory History: Reports: Hx Contacts or Glasses, Hx Glaucoma, Hx Vision Problem Denies: Hx Cataracts, Hx Hearing Aid Opthamlomology History: Reports: Hx Contacts or Glasses, Hx Glaucoma, Hx Vision Problem Denies: Hx Cataracts Neurological History: Reports: Hx Headaches, Hx Migraine, Other Neuro Impairments/Disorders - depression Denies: Hx Dementia, Hx Seizures Psychiatric History: Reports: Hx Anxiety, Hx Depression Denies: Hx Eating Disorder, Hx Panic Disorder, Hx Suicide Attempt, Hx of Violent Episodes Against Others, Hx Substance Abuse - Cancer History Hx Chemotherapy: No Hx Radiation Therapy: No Hx Palliative Cancer Treatment: No - Surgical History Surgery Procedure, Year, and Place: HERNIA REPAIR 2012. APPENDECTOMY 2000. LEFT ARM AV FISTULA/CAD - REMOVED. CABG 1 vessel, mitral & tricuspid valve repair March 02, 2014 AT [facility] CONDITIONAL 5 UPTO 3T. POWER PORT. Mitral and tricuspid valve repair Hx Anesthesia Reactions: No - Immunization History Date of Tetanus Vaccine: 2014 Date of Influenza Vaccine: Fall 2015 Infectious Disease History: No Infectious Disease History: Reports: Hx Hepatitis, Hx of Known/Suspected MRSA, History Other Infectious Disease - Hepatitis C Denies: Hx Clostridium Difficile, Hx Human Immunodeficiency Virus (HIV), Hx Shingles, Hx Tuberculosis, Hx Known/Suspected VRE, Hx Known/Suspected VRSA, Traveled Outside the in Last 30 Days - Family History Known Family History: Positive: Cardiac Disease, Hypertension, Other - CVA - Social History Alcohol Use: None Alcohol Amount: former EtOH abuse Hx Substance Use: Yes Substance Use Type: Reports: Marijuana Substance Use Comment - Amount & Last Used: 01/10/2017 Hx Tobacco Use: Yes Smoking Status (MU): Former Smoker Type: Cigarettes Have You Smoked in the Last Year: No Review of Systems Negative: Fever, Chills Skin: Other - abscess All Other Systems Reviewed And Are Negative: Yes Physical Exam - Summary Physical Exam Summary: VITAL SIGNS: Reviewed. GENERAL: Patient is a well-developed and nourished male who is in acute distress secondary to pain in the left forearm. Patient is not in any acute respiratory distress. HEAD AND FACE: No signs of trauma. No ecchymosis, hematomas or skull depressions. No sinus tenderness. EYES: PERRLA, EOMI x 2, No injected conjunctiva, no nystagmus. EARS: Hearing grossly intact. Ear canals and tympanic membranes are within normal limits. MOUTH: Oropharynx within normal limits. NECK: Supple, trachea is midline, no adenopathy, no JVD, no carotid bruit, no c- spine tenderness, neck with full ROM. CHEST: Symmetric, no tenderness at palpation LUNGS: Clear to auscultation bilaterally. No wheezing or crackles. CVS: Regular rate and rhythm, S1 and S2 present, no murmurs or gallops appreciated. ABDOMEN: Soft, non-tender. No signs of distention. No rebound no guarding, and no masses palpated. Bowel sounds are normal. EXTREMITIES: FROM in all major joints, no edema, no cyanosis or clubbing. NEURO: Alert and oriented x 3. No acute neurological deficits. Speech is normal and follows commands. SKIN: Dry and warm. There is a 3.5cm x 2cm area of induration, abscess to the dorsal aspect of the left forearm. Triage Information Reviewed: Yes Vital Signs On Initial Exam: Initial Vitals Temp Pulse Resp BP Pulse Ox 97.4 F 85 20 10/19 94 03/11/17 10:38 03/11/17 10:38 03/11/17 10:38 03/11/17 10:38 03/11/17 10:38 Vital Signs Reviewed: Yes - Gardner Coma Scale Coma Scale Total: 15 Procedures - Procedure Summary Procedure Summary: There was a copious amount of purulent material drained. Sterile techniques. 11 blade used. Packing iodoform was in place. Baccitracin and sterile bandages used. Timeout performed. Diagnostics - Vital Signs Vital Signs Temp Pulse Resp BP Pulse Ox 03/11/17 10:42 98.2 F 65 20 10/19 95 03/11/17 10:38 97.4 F 85 20 10/19 94 - Laboratory Lab Statement: Any lab studies that have been ordered have been reviewed, and results considered in the medical decision making process. Course/Dx - Course Assessment/Plan: Patient is a 66 year-old male coming to [facility] for evaluation of an abscess on the left forearm that has been gradually worsening for the last week. Pain severity is 10/10, worse with any directly applied pressure. He has no other symptoms at this time. Patient has been taking Keflex. The patient had an abscess on the dorsal aspect of the left forearm. Using sterile techniques, I I&D the abscess which produced a copious amount of purulent and serosanguinous secretions. I packed the wound, applied bacitracin, and an MARILYN bandage. Cultures were sent. I did give the patient one dose of Rocephin and he will continue taking Keflex. He was instructed to return to the ED in 1-2 days for wound check. The patient will return to the ED since he has no PCP at this point. The patient understands and agrees. He was also instructed to return to the ED if he develops increased pain, fever, chills, numbness, and erythema on the left forearm. Before discharge, the patient has good radial and ulnar pulses and good capillary refill. He reports improvement of pain. Upon checking the culture results at 1700, the cultures came back positive for MRSA and S. aureus. Therefore he will be sent a prescription for bactrim and he will discontinue bactrim. - Diagnoses Provider Diagnoses: Abscess, incision and drainage, Cellulitis Discharge - Discharge Plan Condition: Stable Disposition: HOME Prescriptions: Sulfamethox/Trimethoprim DS* [Bactrim DS 800/160 TAB*] 1 tab PO BID #20 tab Patient Education Materials: Incision and Drainage (ED), Abscess (ED), Cellulitis (ED) Referrals: Marielena Vargas MD [Primary Care Provider] - Additional Instructions: RETURN TO THE EMERGENCY ROOM ON THURSDAY AFTER DIALYSIS TO FOLLOW UP ON THE WOUND. The documentation as recorded by the Devon casey Billy accurately reflects the service I personally performed and the decisions made by , Oskar Reyes MD.
== END 2017-03-11 13:11 | disposition home or self-care (01) ==
LOC: ED 10:31
DX: L02.414 Cutaneous abscess of left upper limb (principal); L03.90 Cellulitis, unspecified; Z87.891 Personal history of nicotine dependence
CPT/HCPCS: 10060; 87070; 87205; 87640; 87641; 99282; A9270-GY; J0696

== ENCOUNTER 2017-03-13 10:17 | Emergency (ER) | payer MEDICARE, MEDICAID ==
--- NOTE | 2017-03-13 11:58 | RAD ---
HISTORY: Chest pain COMPARISONS: March 09, 2017 VIEWS:1: Single frontal portable view of the chest at 1 FINDINGS: LINES AND TUBES: There is a left-sided pacemaker. A dual-lumen central venous catheter is noted from a right jugular approach with the tip overlying the cavoatrial junction CARDIOMEDIASTINAL SILHOUETTE: The cardiomediastinal silhouette is normal for portable technique. PLEURA: There are small bilateral pleural effusions. LUNG PARENCHYMA: There is patchy linear opacities in the lung bases bilaterally, greater on the left on the right ABDOMEN: The upper abdomen is clear. There is no subphrenic gas. BONES AND SOFT TISSUES: The patient is status post median sternotomy IMPRESSION: SMALL BILATERAL PLEURAL EFFUSIONS WITH BIBASILAR ATELECTASIS VERSUS CONSOLIDATION
[2017-03-13] MEDS ORDERED: Morphine INJ* 4 MG/ML 1 ML SYRINGE IV ONE (12:12)
[2017-03-13 12:46] LABS: Hematocrit 31 % (42-52); Mean Corpuscular HGB Conc 32 g/dl (31-36); Mean Corpuscular Hemoglobin 27 pg (27-31); Mean Corpuscular Volume 85 fL (80-94); Mean Platelet Volume 7 um3 (7.4-10.4); Red Blood Count 3.69 10^6/ul (4.0-5.4); Red Cell Distribution Width 19 % (10.5-15); White Blood Count 5.3 10^3/ul (3.5-10.8)
[2017-03-13 13:03] LABS: Albumin 4.2 g/dL (3.2-5.2); BUN/Creatinine Ratio 4.2 (8-20); Calcium 9.4 mg/dL (8.6-10.3); EGFR African American 13.4 (>60); EGFR Non-African American 10.4 (>60); Globulin 4.7 g/dL (2-4); Magnesium 2.1 mg/dL (1.9-2.7); Potassium 4.4 mmol/L (3.5-5.0); Total Bilirubin 0.8 mg/dL (0.2-1.0); Total Protein 8.9 g/dL (6.4-8.9)
[2017-03-13 13:24] LABS: Troponin I 0.04 ng/mL (<0.04)
--- NOTE | 2017-03-13 14:32 | RAD ---
Indication: Right arm swelling. Duplex Doppler sonography of the right upper extremity deep venous system was performed. Comparison is made with previous exam dated November 10, 2016 and prior exam of the left upper extremity dated March 09, 2017. Prior internal jugular vein exam dated February 06, 2017 was also reviewed. There is thrombus in the right internal jugular vein. No phasicity is noted. This was noted on prior exam of March 09, 2017. The right subclavian vein demonstrates no evidence of phasic flow. There is echogenic material in the proximal subclavian vein. The right axillary vein demonstrates echogenic material at the valve consistent with partial thrombosis. The right brachial vein and basilic vein are patent and compressible. The right cephalic vein is noncompressible and represent superficial venous thrombosis of the cephalic vein from the mid to distal humerus. The radial vein and ulnar vein are patent. IMPRESSION: Right internal jugular vein thrombosis. This is similar to that seen on March 09, 2017 as well as previous exam of February 06, 2017. Thrombus in the right proximal subclavian vein has progressed since previous exam of February 06 2017. Echogenic material in the axillary vein is noted. Superficial venous thrombosis of the right cephalic vein is present.
--- NOTE | 2017-03-13 14:36 | RAD ---
Indication: Wound LEFT mid forearm from IV access. Abscess drained on Thursday. Comparison: March 09, 2017 ultrasound. Technique: Ultrasound of the mid volar LEFT forearm. Doppler utilized. REPORT AND IMPRESSION: Significant dermal and subcutaneous tissue plane edema in the region of clinical concern both proximal and distal to the wound site. No residual or new loculated abscess collection evident.
[2017-03-13] MEDS ORDERED: oxyCODONE TAB* 5 MG TAB PO ONE (15:17)
[2017-03-13 15:54] VITALS: BP 224/87
--- NOTE | 2017-03-13 17:52 | ED ---
Devon Briones Billy, scribed for Keegan Burden MD on 03/13/17 at 1154 . HPI Chest Pain - HPI Summary HPI Summary: Patient is a 66 year-old male coming to [facility] for evaluation of left-sided chest pain radiating to his lower back for the last several days. The pain is worse with cough and deep breath. There is also swelling to the right arm. He also complains of mild shortness of breath. - History of Current Complaint Chief Complaint: EDChestPainROMI Time Seen by Provider: 03/13/17 11:35 Hx Obtained From: Patient Onset/Duration: Started Days Ago Timing: Constant Initial Severity: Moderate Current Severity: Moderate Pain Intensity: 10 Pain Scale Used: 0-10 Numeric Chest Pain Location: Left Anterior Chest Pain Radiates: Yes Chest Pain Radiates To:: Back Aggravating Factor(s): Deep Breaths, Other: - cough Alleviating Factor(s): Nothing Associated Signs and Symptoms: Positive: Chest Pain, Shortness of Breath - mild , Swelling, Cough - Additional Pertinent History Primary Care Physician: [id number] - Allergy/Home Medications Allergies/Adverse Reactions: Allergies Allergy/AdvReac Type Severity Reaction Status Date / Time Aspirin Allergy Unknown See Comment Verified 03/09/17 14:01 Hydromorphone [From Dilaudid] AdvReac Intermediate Nausea And Verified 03/09/17 14:01 Vomiting PMH/Surg Hx/FS Hx/Imm Hx Endocrine/Hematology History: Reports: Hx Blood Transfusions, Hx Sickle Cell Disease - Was told had sickle cell at one point but denies, Hx Anemia Denies: Hx Anticoagulant Therapy, Hx Bone Marrow Disease, Hx Diabetes, Hx Thyroid Disease Cardiovascular History: Reports: Hx Angina, Hx Auto Implanted Cardiovert Defib, Hx Congestive Heart Failure, Hx Coronary Artery Disease, Hx Hypertension, Hx Pacemaker/ICD, Hx Peripheral Vascular Disease, Hx Syncope, Other Cardiovascular Problems/Disorders - cardiomegaly, mitral valve and tricuspid valve repair Denies: Hx Cardiomegaly, Hx Hypercholesterolemia, Hx Myocardial Infarction, Hx Rheumatic Fever, Hx Valvular Heart Disease Respiratory History: Reports: Hx Asthma, Hx Chronic Obstructive Pulmonary Disease (COPD), Hx Pleural Effusion, Hx Pneumonia, Other Respiratory Problems/ Disorders - SOB Denies: Hx Pulmonary Edema, Hx Pulmonary Embolism, Hx Sleep Apnea GI History: Reports: Hx Cirrhosis, Hx Gastroesophageal Reflux Disease, Hx Ulcer - peptic ulcer, Other GI Disorders - hep C Denies: Hx Crohn's Disease, Hx Hiatal Hernia, Hx Irritable Bowel, Hx Jaundice History: Reports: Hx Acute Renal Failure, Hx Chronic Renal Failure, Hx Dialysis, Hx Renal Disease, Other Problems/Disorders - end stage renal disease, on dialysis Denies: Hx Kidney Infection, Hx Kidney Stones Musculoskeletal History: Reports: Hx Arthritis, Hx Back Problems - chronic pain , Hx Orthopedic Injury Denies: Hx Rheumatoid Arthritis, Hx Bursitis, Hx Tendonitis, Other Musculoskeletal History Sensory History: Reports: Hx Contacts or Glasses, Hx Glaucoma, Hx Vision Problem Denies: Hx Cataracts, Hx Hearing Aid Opthamlomology History: Reports: Hx Contacts or Glasses, Hx Glaucoma, Hx Vision Problem Denies: Hx Cataracts Neurological History: Reports: Hx Headaches, Hx Migraine, Other Neuro Impairments/Disorders - depression Denies: Hx Dementia, Hx Seizures Psychiatric History: Reports: Hx Anxiety, Hx Depression Denies: Hx Eating Disorder, Hx Panic Disorder, Hx Suicide Attempt, Hx of Violent Episodes Against Others, Hx Substance Abuse - Cancer History Hx Chemotherapy: No Hx Radiation Therapy: No Hx Palliative Cancer Treatment: No - Surgical History Surgery Procedure, Year, and Place: HERNIA REPAIR 2012. APPENDECTOMY 2000. LEFT ARM AV FISTULA/CAD - REMOVED. CABG 1 vessel, mitral & tricuspid valve repair March 02, 2014 AT [facility] CONDITIONAL 5 UPTO 3T. POWER PORT. Mitral and tricuspid valve repair Hx Anesthesia Reactions: No - Immunization History Date of Tetanus Vaccine: 2014 Date of Influenza Vaccine: Fall 2015 Infectious Disease History: No Infectious Disease History: Reports: Hx Hepatitis, Hx of Known/Suspected MRSA, History Other Infectious Disease - Hepatitis C Denies: Hx Clostridium Difficile, Hx Human Immunodeficiency Virus (HIV), Hx Shingles, Hx Tuberculosis, Hx Known/Suspected VRE, Hx Known/Suspected VRSA, Traveled Outside the [place] in Last 30 Days - Family History Known Family History: Positive: Cardiac Disease, Hypertension, Other - CVA - Social History Alcohol Use: None Alcohol Amount: former EtOH abuse Hx Substance Use: Yes Substance Use Type: Reports: Marijuana Substance Use Comment - Amount & Last Used: 01/10/2017 Hx Tobacco Use: Yes Smoking Status (MU): Former Smoker Type: Cigarettes Have You Smoked in the Last Year: No Review of Systems Negative: Fever, Chills Positive: Chest Pain Positive: Shortness Of Breath, Cough Positive: Edema All Other Systems Reviewed And Are Negative: Yes Physical Exam - Summary Physical Exam Summary: The patient is well-nourished in no acute distress and in no acute pain. The skin is warm and dry and skin color reflects adequate perfusion. HEENT: The head is normocephalic and atraumatic. The pupils are equal and reactive. The conjunctivae are clear and without drainage. Nares are patent and without drainage. Mouth reveals moist mucous membranes and the throat is without erythema and exudate. The external ears are intact. The ear canals are patent and without drainage. The tympanic membranes are intact. Neck is supple with full range of motion and non-tender. There are no carotid bruits. There is neck vein distension. Respiratory: Chest is non-tender. Lungs are clear to auscultation and breath sounds are symmetrical and equal. Cardiovascular: Heart is regular rate and rhythm. There is no murmur or rub auscultated. Abdomen: The abdomen is distended and tender. There are normal bowel sounds heard in all four quadrants and there is no organomegaly palpated. Positive abdominojugular reflux. Musculoskeletal: There is no back pain noted. There is swelling to both feet. There is an area of induration and tenderness to the left forearm, pulses are intact distally, no packing noted. Right forearm swelling, positive bruit and thrill, pulses intact distally. There is good capillary refill. There is no peripheral edema or calf tenderness elicited. Neurological: Patient is alert and oriented to person, place and time. The patient has symmetrical motor strength in all four extremities. Cranial nerves are grossly intact. Deep tendon reflexes are symmetrical and equal in all four extremities. Psychiatric: The patient has an appropriate affect and does not exhibit any anxiety or depression. Triage Information Reviewed: Yes Vital Signs On Initial Exam: Initial Vitals Temp Pulse Resp BP Pulse Ox 98.3 F 93 20 232/138 96 03/13/17 10:21 03/13/17 10:21 03/13/17 10:21 03/13/17 10:21 03/13/17 10:21 Vital Signs Reviewed: Yes - Kian Coma Scale Coma Scale Total: 15 Diagnostics - Vital Signs Vital Signs Temp Pulse Resp BP Pulse Ox 03/13/17 10: 97.8 F 93 20 232/138 97 03/13/17 10:21 98.3 F 93 20 232/138 96 - Laboratory Lab Results: Lab Results 03/13/17 03/13/17 03/13/17 Range/Units 12:30 12:30 12:30 WBC 5.3 (3.5-10.8) 10^3/ul RBC 3.69 L (4.0-5.4) 10^6/ul Hgb 10.0 L (14.0-18.0) g/dl Hct 31 L (42-52) % MCV 85 (80-94) fL MCH 27 (27-31) pg MCHC 32 (31-36) g/dl RDW 19 H (10.5-15) % Plt Count 135 L (150-450) 10^3/ul MPV 7 L (7.4-10.4) um3 Neut % (Auto) 68.9 (38-83) % Lymph % (Auto) 15.1 L (25-47) % Independence % (Auto) 12.9 H (1-9) % Eos % (Auto) 1.9 (0-6) % Baso % (Auto) 1.2 (0-2) % Absolute Neuts (auto) 3.6 (1.5-7.7) 10^3/ul Absolute Lymphs (auto) 0.8 L (1.0-4.8) 10^3/ul Absolute Monos (auto) 0.7 (0-0.8) 10^3/ul Absolute Eos (auto) 0.1 (0-0.6) 10^3/ul Absolute Basos (auto) 0.1 (0-0.2) 10^3/ul Absolute Nucleated RBC 0 10^3/ul Nucleated RBC % 0.1 INR (Anticoag Therapy) (0.89-1.11) Sodium 136 (133-145) mmol/L Potassium 4.4 (3.5-5.0) mmol/L Chloride 91 L (101-111) mmol/L Carbon Dioxide 35 H (22-32) mmol/L Anion Gap 10 (2-11) mmol/L BUN 23 (6-24) mg/dL Creatinine 5.54 H (0.67-1.17) mg/dL Est GFR ( Amer) 13.4 (>60) Est GFR (Non-Af Amer) 10.4 (>60) BUN/Creatinine Ratio 4.2 L (8-20) Glucose 77 (70-100) mg/dL Lactic Acid 0.8 (0.5-2.0) mmol/L Calcium 9.4 (8.6-10.3) mg/dL Magnesium 2.1 (1.9-2.7) mg/dL Total Bilirubin 0.80 (0.2-1.0) mg/dL AST 28 (13-39) U/L ALT 15 (7-52) U/L Alkaline Phosphatase 71 (34-104) U/L Troponin I 0.04 H* (<0.04) ng/mL Total Protein 8.9 (6.4-8.9) g/dL Albumin 4.2 (3.2-5.2) g/dL Globulin 4.7 H (2-4) g/dL Albumin/Globulin Ratio 0.9 L (1-3) 05/26/17 Range/Units 12:30 WBC (3.5-10.8) 10^3/ul RBC (4.0-5.4) 10^6/ul Hgb (14.0-18.0) g/dl Hct (42-52) % MCV (80-94) fL MCH (27-31) pg MCHC (31-36) g/dl RDW (10.5-15) % Plt Count (150-450) 10^3/ul MPV (7.4-10.4) um3 Neut % (Auto) (38-83) % Lymph % (Auto) (25-47) % Independence % (Auto) (1-9) % Eos % (Auto) (0-6) % Baso % (Auto) (0-2) % Absolute Neuts (auto) (1.5-7.7) 10^3/ul Absolute Lymphs (auto) (1.0-4.8) 10^3/ul Absolute Monos (auto) (0-0.8) 10^3/ul Absolute Eos (auto) (0-0.6) 10^3/ul Absolute Basos (auto) (0-0.2) 10^3/ul Absolute Nucleated RBC 10^3/ul Nucleated RBC % INR (Anticoag Therapy) 1.48 H (0.89-1.11) Sodium (133-145) mmol/L Potassium (3.5-5.0) mmol/L Chloride (101-111) mmol/L Carbon Dioxide (22-32) mmol/L Anion Gap (2-11) mmol/L BUN (6-24) mg/dL Creatinine (0.67-1.17) mg/dL Est GFR ( Amer) (>60) Est GFR (Non-Af Amer) (>60) BUN/Creatinine Ratio (8-20) Glucose (70-100) mg/dL Lactic Acid (0.5-2.0) mmol/L Calcium (8.6-10.3) mg/dL Magnesium (1.9-2.7) mg/dL Total Bilirubin (0.2-1.0) mg/dL AST (13-39) U/L ALT (7-52) U/L Alkaline Phosphatase (34-104) U/L Troponin I (<0.04) ng/mL Total Protein (6.4-8.9) g/dL Albumin (3.2-5.2) g/dL Globulin (2-4) g/dL Albumin/Globulin Ratio (1-3) Result Diagrams: 03/13/17 12:30 03/13/17 12:30 Lab Statement: Any lab studies that have been ordered have been reviewed, and results considered in the medical decision making process. - Radiology CXR Radiology Interpretation Completed By: Radiologist - SMALL BILATERAL PLEURAL EFFUSIONS WITH BIBASILAR ATELECTASIS VERSUS CONSOLIDATION - Ultrasound No standard instances Ultrasound Interpretation Completed By: Radiologist - Right upper extremity Doppler: Right internal jugular vein thrombosis. This is similar to that seen on March 09, 2017 as well as previous exam of February 06, 2017. Thrombus in the right proximal subclavian vein has progressed since previous exam of February 06 2017. Echogenic material in the axillary vein is noted. Superficial venous thrombosis of the right cephalic vein is present. Soft tissue left upper extremity ultrasound: Significant dermal and subcutaneous tissue plane edema in the region of clinical concern both proximal and distal to the wound site. No residual or new loculated abscess collection evident. - EKG 1434 EKG Interpretation: NSR 83 bpm, TWI in I aVL V5 V6, nonspecific ST changes EKG Comparison: No Significant Change - Compared to 02/01/17 Re-Evaluation - Re-Evaluation First Eval Re-Evaluation Time: 15:28 Change: Improved Chest Pain Course/Dx - Course Assessment/Plan: 66 year-old male coming to the ED for evaluation of chest pain. Labs were reviewed, troponin is 0.04 which is his baseline. He was given oxycodone and morphine for pain in the ED. CXR shows small bilateral pleural effusions with bibasilar atelectasis versus consolidation. Imaging of the upper extremities reviewed. EKG shows NSR bpm with TWI in I, aVL, V5, and V6, and nonspecific ST changes. His symptoms improved after treatment in the ED. He will be discharged home with instructions for wound care for the abscess as well as for his blood clot. He will follow up with his PCP. - Chest Pain Differential Diagnosis/HQI/PQRI: Acute NH, ACS, Angina, Chest Wall, Lower Respiratory Infection, Other: - pneumonia, cellulitis, abscess, dvt rue - Diagnoses Provider Diagnoses: Chest pain, Arm abscess, DVT right arm Discharge - Discharge Plan Condition: Stable Disposition: HOME Prescriptions: oxyCODONE TAB* [Roxycodone TAB 5 mg*] 5 mg PO Q6H PRN #20 tab MDD 4 PRN Reason: pain Patient Education Materials: Chest Pain (ED) Referrals: Marielena Vargas MD [Primary Care Provider] - Additional Instructions: CONTINUE TO TAKE WARFARIN FOR YOUR BLOOD CLOT. CONTINUE TAKING BACTRIM FOR THE ABSCESS ON YOUR LEFT ARM, AND TREAT IT WITH WARM SOAKS TWICE A DAY. TAKE ALL MEDICATIONS DIRECTED. The documentation as recorded by the Devon casey Billy accurately reflects the service I personally performed and the decisions made by , Keegan Burden MD.
--- NOTE | 2017-03-14 08:37 | PN ---
Progress Note - Progress Note Note: Patient placed on bactrim which final cultures shows is sensitive to so no further action needed.
== END 2017-03-13 15:50 | disposition home or self-care (01) ==
LOC: ED 10:17
DX: I82.621 Acute embolism and thrombosis of deep veins of right upper extremity (principal); R07.9 Chest pain, unspecified; R06.02 Shortness of breath; R05 Cough; L02.419 Cutaneous abscess of limb, unspecified
CPT/HCPCS: 36415; 71010; 80053; 83605; 83735; 84484; 85025; 85610; 93005; 96374; 99283; A9270-GY; J2270

== ENCOUNTER 2017-03-18 05:39 | Emergency (ER) | payer MEDICARE, MEDICAID ==
--- NOTE | 2017-03-18 06:07 | ED ---
shruthi Briones Timothy, scribed for Luis Fernando Jimenez MD on 03/18/17 at 0606 . HPI Chest Pain - HPI Summary HPI Summary: Pato Templeton is a 66 yo male presenting to [facility] with 10/10 chest, abdominal, and right arm pain with rhinorrhea, diarrhea, and swelling in his right hand since 0300 today. HD is MWF, and he has not had HD today yet. He was unable to do dialysis due to the pain. His MHx includes CAD, MVR, HI, CHF, CAD, PVD, CABG, pacemaker, HTN, cardiomegaly, migraine, COPD, asthma, pleural effusion, PNA, PUD , end stage renal disease, renal failure, arthritis, sickle cell disease, hepatitis C, anemia, cirrhosis, MRSA, depression, anxiety, tobacco use. - History of Current Complaint Time Seen by Provider: 03/18/17 06:02 Onset/Duration: Started Hours Ago, Still Present Time of Onset: 03:00 Timing: Constant Initial Severity: Moderate Current Severity: Moderate Pain Intensity: 10 Pain Scale Used: 0-10 Numeric Chest Pain Location: Diffuse Chest Pain Radiates: Yes Chest Pain Radiates To:: Arm - right, Epigastric Associated Signs and Symptoms: Positive: Chest Pain, Nasal Congestion, Other: - diarrhea - Additional Pertinent History Primary Care Physician: [id number] - Allergy/Home Medications Allergies/Adverse Reactions: Allergies Allergy/AdvReac Type Severity Reaction Status Date / Time Aspirin Allergy Unknown See Comment Verified 03/09/17 14:01 Hydromorphone [From Dilaudid] AdvReac Intermediate Nausea And Verified 03/09/17 14:01 Vomiting PMH/Surg Hx/FS Hx/Imm Hx Endocrine/Hematology History: Reports: Hx Blood Transfusions, Hx Sickle Cell Disease - Was told had sickle cell at one point but denies, Hx Anemia Denies: Hx Anticoagulant Therapy, Hx Bone Marrow Disease, Hx Diabetes, Hx Thyroid Disease Cardiovascular History: Reports: Hx Angina, Hx Auto Implanted Cardiovert Defib, Hx Congestive Heart Failure, Hx Coronary Artery Disease, Hx Hypertension, Hx Pacemaker/ICD, Hx Peripheral Vascular Disease, Hx Syncope, Other Cardiovascular Problems/Disorders - cardiomegaly, mitral valve and tricuspid valve repair Denies: Hx Cardiomegaly, Hx Hypercholesterolemia, Hx Myocardial Infarction, Hx Rheumatic Fever, Hx Valvular Heart Disease Respiratory History: Reports: Hx Asthma, Hx Chronic Obstructive Pulmonary Disease (COPD), Hx Pleural Effusion, Hx Pneumonia, Other Respiratory Problems/ Disorders - SOB Denies: Hx Pulmonary Edema, Hx Pulmonary Embolism, Hx Sleep Apnea GI History: Reports: Hx Cirrhosis, Hx Gastroesophageal Reflux Disease, Hx Ulcer - peptic ulcer, Other GI Disorders - hep C Denies: Hx Crohn's Disease, Hx Hiatal Hernia, Hx Irritable Bowel, Hx Jaundice History: Reports: Hx Acute Renal Failure, Hx Chronic Renal Failure, Hx Dialysis, Hx Renal Disease, Other Problems/Disorders - end stage renal disease, on dialysis Denies: Hx Kidney Infection, Hx Kidney Stones Musculoskeletal History: Reports: Hx Arthritis, Hx Back Problems - chronic pain , Hx Orthopedic Injury Denies: Hx Rheumatoid Arthritis, Hx Bursitis, Hx Tendonitis, Other Musculoskeletal History Sensory History: Reports: Hx Contacts or Glasses, Hx Glaucoma, Hx Vision Problem Denies: Hx Cataracts, Hx Hearing Aid Opthamlomology History: Reports: Hx Contacts or Glasses, Hx Glaucoma, Hx Vision Problem Denies: Hx Cataracts Neurological History: Reports: Hx Headaches, Hx Migraine, Other Neuro Impairments/Disorders - depression Denies: Hx Dementia, Hx Seizures Psychiatric History: Reports: Hx Anxiety, Hx Depression Denies: Hx Eating Disorder, Hx Panic Disorder, Hx Suicide Attempt, Hx of Violent Episodes Against Others, Hx Substance Abuse - Cancer History Hx Chemotherapy: No Hx Radiation Therapy: No Hx Palliative Cancer Treatment: No - Surgical History Surgery Procedure, Year, and Place: HERNIA REPAIR 2012. APPENDECTOMY 2000. LEFT ARM AV FISTULA/CAD - REMOVED. CABG 1 vessel, mitral & tricuspid valve repair March 02, 2014 AT [facility] CONDITIONAL 5 UPTO 3T. POWER PORT. Mitral and tricuspid valve repair Hx Anesthesia Reactions: No - Immunization History Date of Tetanus Vaccine: 2014 Date of Influenza Vaccine: Fall 2015 Infectious Disease History: No Infectious Disease History: Reports: Hx Hepatitis, Hx of Known/Suspected MRSA, History Other Infectious Disease - Hepatitis C Denies: Hx Clostridium Difficile, Hx Human Immunodeficiency Virus (HIV), Hx Shingles, Hx Tuberculosis, Hx Known/Suspected VRE, Hx Known/Suspected VRSA, Traveled Outside the [place] in Last 30 Days - Family History Known Family History: Positive: Cardiac Disease, Hypertension, Other - CVA Family History: R & N/C - Social History Alcohol Use: None Alcohol Amount: former EtOH abuse Hx Substance Use: Yes Substance Use Type: Reports: Marijuana Substance Use Comment - Amount & Last Used: 01/10/2017 Hx Tobacco Use: Yes Smoking Status (MU): Former Smoker Type: Cigarettes Have You Smoked in the Last Year: No Review of Systems Constitutional: Negative Eyes: Negative Positive: Nasal Discharge Cardiovascular: Negative Positive: Chest Pain Respiratory: Negative Positive: Diarrhea Genitourinary: Negative Musculoskeletal: Other - right hand swelling Skin: Negative Neurological: Negative Psychological: Normal All Other Systems Reviewed And Are Negative: Yes Physical Exam Vital Signs On Initial Exam: Initial Vitals Temp Pulse Resp BP Pulse Ox 98 F 81 18 224/131 97 03/18/17 05:53 03/18/17 05:53 03/18/17 05:53 03/18/17 05:53 03/18/17 05:53 - Kian Coma Scale Coma Scale Total: 15 Diagnostics - Vital Signs Vital Signs Temp Pulse Resp BP Pulse Ox 03/18/17 05:53 98 F 81 18 224/131 97 - Laboratory Result Diagrams: 03/18/17 07:22 03/18/17 07:22 Lab Statement: Any lab studies that have been ordered have been reviewed, and results considered in the medical decision making process. - EKG 0615 Cardiac Rate: NL - 82 BPM EKG Interpretation: NSR @ 82 BPM, LVH Chest Pain Course/Dx - Course Assessment/Plan: Pato Templeton is a 66 yo male presenting to [facility] with 10/10 chest , abd, and right arm pain with rhinorrhea, diarrhea, and right hand swelling since 0300 this morning. His EKG suggests NSR with LVH. He will be signed out to Dr. Reyes pending further lab results. - Diagnoses Provider Diagnoses: Chest pain Discharge - Discharge Plan Condition: Stable Disposition: OTHER Discharge Disposition Comment: signed out to Dr. Reyes pending further lab results. Patient Education Materials: Chest Pain (ED) Referrals: Marielena Vargas MD [Primary Care Provider] - The documentation as recorded by the shruthi casey Timothy accurately reflects the service I personally performed and the decisions made by me, Luis Fernando Jimenez MD.
[2017-03-18 07:30] LABS: Hematocrit 30 % (42-52); Hemoglobin 9.5 g/dl (14.0-18.0); Mean Corpuscular HGB Conc 32 g/dl (31-36); Mean Corpuscular Hemoglobin 27 pg (27-31); Mean Corpuscular Volume 85 fL (80-94); Mean Platelet Volume 7 um3 (7.4-10.4); Red Blood Count 3.48 10^6/ul (4.0-5.4); Red Cell Distribution Width 20 % (10.5-15); White Blood Count 5.6 10^3/ul (3.5-10.8)
[2017-03-18 07:52] LABS: BUN/Creatinine Ratio 3.7 (8-20); C Reactive Protein 1.23 mg/L (< 5.00); Calcium 9.5 mg/dL (8.6-10.3); EGFR African American 7.3 (>60); EGFR Non-African American 5.7 (>60); Globulin 4.3 g/dL (2-4); Magnesium 2.4 mg/dL (1.9-2.7); Total Bilirubin 0.6 mg/dL (0.2-1.0); Total Protein 8.3 g/dL (6.4-8.9)
[2017-03-18 08:01] VITALS: BP 205/130
[2017-03-18] MEDS ORDERED: oxyCODONE/Acetamin 5/325 MG* TAB PO ONE (08:11)
[2017-03-18 08:50] LABS: Troponin I 0.06 ng/mL (<0.04)
--- NOTE | 2017-03-18 11:17 | ED ---
I, Hank Osorio, scribed for Oskar Reyes MD on 03/18/17 at 0906 . Progress - Progress Note Progress Note: Dr. Jimenez asked me to follow up the troponin, and if the troponin is at the patients baseline, he is to be discharged home or to dialysis. He was given 1x Percocet with resolution of his symptoms. Troponin is 0.06, which is his baseline, possibly secondary to ESRD. He is comfortable in the ED. He will be discharged home to go to dialysis. Course/Dx - Diagnoses Provider Diagnoses: Chest pain Discharge - Discharge Plan Condition: Stable Disposition: OTHER Discharge Disposition Comment: DIALYSIS Patient Education Materials: Chest Pain (ED) Referrals: Marielena Vargas MD [Primary Care Provider] - The documentation as recorded by the isabellaibDevon jacques Billy accurately reflects the service I personally performed and the decisions made by me, Oskar Reyes MD.
== END 2017-03-18 09:13 ==
LOC: ED 05:39
DX: R07.9 Chest pain, unspecified (principal); I25.10 Atherosclerotic heart disease of native coronary artery without angina pectoris; Z95.1 Presence of aortocoronary bypass graft; I25.2 Old myocardial infarction; I12.0 Hypertensive chronic kidney disease with stage 5 chronic kidney disease or end stage renal disease; N18.6 End stage renal disease; J44.9 Chronic obstructive pulmonary disease, unspecified; Z87.891 Personal history of nicotine dependence; Z99.2 Dependence on renal dialysis
CPT/HCPCS: 36415; 80053; 83605; 83690; 83735; 84484; 85025; 86140; 93005; 99282; A9270-GY

== ENCOUNTER 2017-03-26 00:29 | Emergency (ER) | payer MEDICARE, MEDICAID ==
[2017-03-26] MEDS ORDERED: Morphine INJ* 4 MG/ML 1 ML SYRINGE IV ONE ×2 (01:01→03:04)
[2017-03-26] MEDS ORDERED: Lidocaine 2% VISCOUS* 15 ML UDC PO ONE (01:02)
[2017-03-26] MEDS ORDERED: Al Hydrox/Mg Hydrox/Simet LIQ* 30 ML UDC PO ONE (01:02)
--- NOTE | 2017-03-26 05:44 | ED ---
Daryl Briones Salem, scribed for Rafa Reddy MD on 03/26/17 at 0105 . Abdominal Pain/Male - HPI Summary HPI Summary: Patient is a 66 y/o M who presents to the ED with recurrent RLQ pain. Pt denies fever or chills. He has a PMHx of renal failure, but states that he is able to make urine and BM, unchanged from baseline. PMHx of appendectomy. Pt is requesting GI cocktail and medication. Pt states that no labs or imaging are necessary cause sx are recurrent. - History of Current Complaint Chief Complaint: EDAbdPain Stated Complaint: ABD PAIN Time Seen by Provider: 03/26/17 00:50 Hx Obtained From: Patient Onset/Duration: Gradual Onset, Lasting Hours, Still Present Timing: Intermittent Severity Initially: Moderate Severity Currently: Moderate Pain Intensity: 10 Pain Scale Used: 0-10 Numeric Location: Discrete At: RLQ Radiates: No Aggravating Factor(s): Nothing Alleviating Factor(s): Nothing Associated Signs And Symptoms: Positive: Negative - Allergies/Home Medications Allergies/Adverse Reactions: Allergies Allergy/AdvReac Type Severity Reaction Status Date / Time Aspirin Allergy Unknown See Comment Verified 03/09/17 14:01 Hydromorphone [From Dilaudid] AdvReac Intermediate Nausea And Verified 03/09/17 14:01 Vomiting PMH/Surg Hx/FS Hx/Imm Hx Endocrine/Hematology History: Reports: Hx Blood Transfusions, Hx Sickle Cell Disease - Was told had sickle cell at one point but denies, Hx Anemia Denies: Hx Anticoagulant Therapy, Hx Bone Marrow Disease, Hx Diabetes, Hx Thyroid Disease Cardiovascular History: Reports: Hx Angina, Hx Auto Implanted Cardiovert Defib, Hx Congestive Heart Failure, Hx Coronary Artery Disease, Hx Hypertension, Hx Pacemaker/ICD, Hx Peripheral Vascular Disease, Hx Syncope, Other Cardiovascular Problems/Disorders - cardiomegaly, mitral valve and tricuspid valve repair Denies: Hx Cardiomegaly, Hx Hypercholesterolemia, Hx Myocardial Infarction, Hx Rheumatic Fever, Hx Valvular Heart Disease Respiratory History: Reports: Hx Asthma, Hx Chronic Obstructive Pulmonary Disease (COPD), Hx Pleural Effusion, Hx Pneumonia, Other Respiratory Problems/ Disorders - SOB Denies: Hx Pulmonary Edema, Hx Pulmonary Embolism, Hx Sleep Apnea GI History: Reports: Hx Cirrhosis, Hx Gastroesophageal Reflux Disease, Hx Ulcer - peptic ulcer, Other GI Disorders - hep C Denies: Hx Crohn's Disease, Hx Hiatal Hernia, Hx Irritable Bowel, Hx Jaundice History: Reports: Hx Acute Renal Failure, Hx Chronic Renal Failure, Hx Dialysis, Hx Renal Disease, Other Problems/Disorders - end stage renal disease, on dialysis Denies: Hx Kidney Infection, Hx Kidney Stones Musculoskeletal History: Reports: Hx Arthritis, Hx Back Problems - chronic pain , Hx Orthopedic Injury Denies: Hx Rheumatoid Arthritis, Hx Bursitis, Hx Tendonitis, Other Musculoskeletal History Sensory History: Reports: Hx Contacts or Glasses, Hx Glaucoma, Hx Vision Problem Denies: Hx Cataracts, Hx Hearing Aid Opthamlomology History: Reports: Hx Contacts or Glasses, Hx Glaucoma, Hx Vision Problem Denies: Hx Cataracts Neurological History: Reports: Hx Headaches, Hx Migraine, Other Neuro Impairments/Disorders - depression Denies: Hx Dementia, Hx Seizures Psychiatric History: Reports: Hx Anxiety, Hx Depression Denies: Hx Eating Disorder, Hx Panic Disorder, Hx Suicide Attempt, Hx of Violent Episodes Against Others, Hx Substance Abuse - Cancer History Hx Chemotherapy: No Hx Radiation Therapy: No Hx Palliative Cancer Treatment: No - Surgical History Surgery Procedure, Year, and Place: HERNIA REPAIR 2012. APPENDECTOMY 2000. LEFT ARM AV FISTULA/CAD - REMOVED. CABG 1 vessel, mitral & tricuspid valve repair March 02, 2014 AT [facility] CONDITIONAL 5 UPTO 3T. POWER PORT. Mitral and tricuspid valve repair Hx Anesthesia Reactions: No - Immunization History Date of Tetanus Vaccine: 2014 Date of Influenza Vaccine: Fall 2015 Infectious Disease History: No Infectious Disease History: Reports: Hx Hepatitis, Hx of Known/Suspected MRSA, History Other Infectious Disease - Hepatitis C Denies: Hx Clostridium Difficile, Hx Human Immunodeficiency Virus (HIV), Hx Shingles, Hx Tuberculosis, Hx Known/Suspected VRE, Hx Known/Suspected VRSA, Traveled Outside the [place] in Last 30 Days - Family History Known Family History: Positive: Cardiac Disease, Hypertension, Other - CVA Family History: R & N/C - Social History Alcohol Use: None Alcohol Amount: former EtOH abuse Hx Substance Use: Yes Substance Use Type: Reports: Marijuana Substance Use Comment - Amount & Last Used: 01/10/2017 Hx Tobacco Use: Yes Smoking Status (MU): Former Smoker Type: Cigarettes Have You Smoked in the Last Year: No Review of Systems Negative: Fever, Chills Positive: Abdominal Pain - RLQ. All Other Systems Reviewed And Are Negative: Yes Physical Exam Triage Information Reviewed: Yes Vital Signs On Initial Exam: Initial Vitals Temp Pulse Resp BP Pulse Ox 98 F 82 22 176/126 96 03/26/17 00:35 03/26/17 00:35 03/26/17 00:35 03/26/17 00:35 03/26/17 00:35 Vital Signs Reviewed: Yes Appearance: Positive: Well-Appearing, Pain Distress - Moderate. Skin: Positive: Warm, Skin Color Reflects Adequate Perfusion, Dry Head/Face: Positive: Normal Head/Face Inspection Eyes: Positive: EOMI, KINGS Neck: Positive: Supple, Nontender Respiratory/Lung Sounds: Positive: Clear to Auscultation, Breath Sounds Present Cardiovascular: Positive: RRR Abdomen Description: Positive: Soft, Other: - Mild tenderness to RLQ. Bowel Sounds: Positive: Present Musculoskeletal: Positive: Normal, Strength/ROM Intact Neurological: Positive: Normal, Sensory/Motor Intact, Alert, Oriented to Person Place, Time - Kian Coma Scale Coma Scale Total: 15 Diagnostics - Vital Signs Vital Signs Temp Pulse Resp BP Pulse Ox 03/26/17 00:35 98 F 82 22 176/126 96 - Laboratory Lab Statement: Any lab studies that have been ordered have been reviewed, and results considered in the medical decision making process. Re-Evaluation - Re-Evaluation First Eval Re-Evaluation Time: 03:03 Change: Improved Comment: Improved, but asked for more pain medication. Abdominal Pain Fem Course/Dx - Course Course Of Treatment: NO CRITICAL CARE TIME. DISCUSSED LABS/IMAGING WITH PATIENT. HE FEELS THAT THIS IS A CHRONIC RECURRENT PAIN AND ASKS FOR PAIN MEDS ONLY; DECLINES LABS/IMAGING AT THIS TIME. DISCHARGE HOME STABLE. - Diagnoses Provider Diagnoses: Abdominal pain Discharge - Discharge Plan Condition: Stable Disposition: HOME Patient Education Materials: Abdominal Pain (ED) Referrals: Marielena Vargas MD [Primary Care Provider] - Additional Instructions: FOLLOW UP WITH YOUR DOCTOR. RETURN TO THE EMERGENCY DEPARTMENT FOR ANY WORSENING OF YOUR CONDITION; PAIN, FEVER, YOU FEEL ILL OR QUESTIONS OR CONCERNS. The documentation as recorded by the Daryl casey Salem accurately reflects the service I personally performed and the decisions made by me, Rafa Reddy MD.
[2017-03-26 07:01] VITALS: BP 160/115
== END 2017-03-26 07:10 | disposition home or self-care (01) ==
LOC: ED 00:29
DX: R10.31 Right lower quadrant pain (principal); Z87.891 Personal history of nicotine dependence
CPT/HCPCS: 96374; 96376; 99282; A9270-GY; J2270

== ENCOUNTER 2017-03-30 04:01 | Emergency (ER) | payer MEDICARE, MEDICAID ==
[2017-03-30] MEDS ORDERED: Morphine INJ* 4 MG/ML 1 ML SYRINGE IV ONE (04:21)
[2017-03-30] MEDS ORDERED: Pantoprazole IV* 40 MG IV ONE (04:21)
[2017-03-30] MEDS ORDERED: Ondansetron INJ* 2 MG/ML VIAL IV ONE (04:21)
[2017-03-30 04:33] VITALS: BP 136/108
[2017-03-30 05:28] LABS: Hematocrit 25 % (42-52); Hemoglobin 8.2 g/dl (14.0-18.0); Mean Corpuscular HGB Conc 32 g/dl (31-36); Mean Corpuscular Hemoglobin 28 pg (27-31); Mean Corpuscular Volume 86 fL (80-94); Mean Platelet Volume 8 um3 (7.4-10.4); Red Blood Count 2.93 10^6/ul (4.0-5.4); Red Cell Distribution Width 21 % (10.5-15); White Blood Count 3.3 10^3/ul (3.5-10.8)
[2017-03-30 05:32] LABS: Comments Flag Yes
[2017-03-30 05:37] LABS: ALT 17 U/L (7-52); AST 33 U/L (13-39); Albumin 4.1 g/dL (3.2-5.2); Alkaline Phosphatase 63 U/L (34-104); Amylase 85 U/L (29-103); BUN/Creatinine Ratio 6.9 (8-20); Blood Urea Nitrogen 81 mg/dL (6-24); C Reactive Protein < 1.00 mg/L (< 5.00); CO2 Carbon Dioxide 26 mmol/L (22-32); Calcium 8.3 mg/dL (8.6-10.3); Chloride 98 mmol/L (101-111); EGFR African American 5.6 (>60); EGFR Non-African American 4.4 (>60); Globulin 4.1 g/dL (2-4); Glucose 81 mg/dL (70-100); Lipase 23 U/L (11.0-82.0); Sodium 131 mmol/L (133-145); Total Protein 8.2 g/dL (6.4-8.9)
[2017-03-30 05:40] LABS: Anion Gap 7 mmol/L (2-11); Potassium 6.5 mmol/L (3.5-5.0)
--- NOTE | 2017-03-30 06:33 | ED ---
I, Oh,Jack, scribed for Keegan Burden MD on 03/30/17 at 0422 . Abdominal Pain/Male - HPI Summary HPI Summary: This 66 y/o male presents to ED for acute on chronic buring epigastric pain since 2 hours ago. Positive nausea, dizziness, chronic CP, and near syncope. Pt has dialysis upcoming morning. Pt states that this abd pain is different from his usual pain. PMHx includes PUD, CAD, valvular disease s/p valve replacement, CKD with hemodialysis, and Hep C. He is currently on coumadin. - History of Current Complaint Chief Complaint: EDAbdPain Stated Complaint: STOMACHE PAIN Time Seen by Provider: 03/30/17 04:13 Hx Obtained From: Patient, Medical Records Onset/Duration: Sudden Onset, Still Present Timing: Constant, Lasting Hours Pain Intensity: 9 Pain Scale Used: 0-10 Numeric Location: Epigastric Radiates: Yes Radiates to: Chest Character: Burning Aggravating Factor(s): Nothing Alleviating Factor(s): Nothing Associated Signs And Symptoms: Positive: Urinary Symptoms - decreased urinary output, Nausea. Negative: Fever - Allergies/Home Medications Allergies/Adverse Reactions: Allergies Allergy/AdvReac Type Severity Reaction Status Date / Time Aspirin Allergy Unknown See Comment Verified 03/09/17 14:01 Hydromorphone [From Dilaudid] AdvReac Intermediate Nausea And Verified 03/09/17 14:01 Vomiting PMH/Surg Hx/FS Hx/Imm Hx Endocrine/Hematology History: Reports: Hx Blood Transfusions, Hx Sickle Cell Disease - Was told had sickle cell at one point but denies, Hx Anemia Denies: Hx Anticoagulant Therapy, Hx Bone Marrow Disease, Hx Diabetes, Hx Thyroid Disease Cardiovascular History: Reports: Hx Angina, Hx Auto Implanted Cardiovert Defib, Hx Congestive Heart Failure, Hx Coronary Artery Disease, Hx Hypertension, Hx Pacemaker/ICD, Hx Peripheral Vascular Disease, Hx Syncope, Other Cardiovascular Problems/Disorders - cardiomegaly, mitral valve and tricuspid valve repair Denies: Hx Cardiomegaly, Hx Hypercholesterolemia, Hx Myocardial Infarction, Hx Rheumatic Fever, Hx Valvular Heart Disease Respiratory History: Reports: Hx Asthma, Hx Chronic Obstructive Pulmonary Disease (COPD), Hx Pleural Effusion, Hx Pneumonia, Other Respiratory Problems/ Disorders - SOB Denies: Hx Pulmonary Edema, Hx Pulmonary Embolism, Hx Sleep Apnea GI History: Reports: Hx Cirrhosis, Hx Gastroesophageal Reflux Disease, Hx Ulcer - peptic ulcer, Other GI Disorders - hep C Denies: Hx Crohn's Disease, Hx Hiatal Hernia, Hx Irritable Bowel, Hx Jaundice History: Reports: Hx Acute Renal Failure, Hx Chronic Renal Failure, Hx Dialysis, Hx Renal Disease, Other Problems/Disorders - end stage renal disease, on dialysis Denies: Hx Kidney Infection, Hx Kidney Stones Musculoskeletal History: Reports: Hx Arthritis, Hx Back Problems - chronic pain , Hx Orthopedic Injury Denies: Hx Rheumatoid Arthritis, Hx Bursitis, Hx Tendonitis, Other Musculoskeletal History Sensory History: Reports: Hx Contacts or Glasses, Hx Glaucoma, Hx Vision Problem Denies: Hx Cataracts, Hx Hearing Aid Opthamlomology History: Reports: Hx Contacts or Glasses, Hx Glaucoma, Hx Vision Problem Denies: Hx Cataracts Neurological History: Reports: Hx Headaches, Hx Migraine, Other Neuro Impairments/Disorders - depression Denies: Hx Dementia, Hx Seizures Psychiatric History: Reports: Hx Anxiety, Hx Depression Denies: Hx Eating Disorder, Hx Panic Disorder, Hx Suicide Attempt, Hx of Violent Episodes Against Others, Hx Substance Abuse - Cancer History Hx Chemotherapy: No Hx Radiation Therapy: No Hx Palliative Cancer Treatment: No - Surgical History Surgery Procedure, Year, and Place: HERNIA REPAIR 2012. APPENDECTOMY 2000. LEFT ARM AV FISTULA/CAD - REMOVED. CABG 1 vessel, mitral & tricuspid valve repair March 02, 2014 AT [facility] CONDITIONAL 5 UPTO 3T. POWER PORT. Mitral and tricuspid valve repair Hx Anesthesia Reactions: No - Immunization History Date of Tetanus Vaccine: 2014 Date of Influenza Vaccine: Fall 2015 Infectious Disease History: Reports: Hx Hepatitis, Hx of Known/Suspected MRSA, History Other Infectious Disease - Hepatitis C Denies: Hx Clostridium Difficile, Hx Human Immunodeficiency Virus (HIV), Hx Shingles, Hx Tuberculosis, Hx Known/Suspected VRE, Hx Known/Suspected VRSA, Traveled Outside the [place] in Last 30 Days - Family History Known Family History: Positive: None, Cardiac Disease, Hypertension, Other - CVA Family History: R & N/C - Social History Alcohol Use: None Alcohol Amount: former EtOH abuse Hx Substance Use: Yes Substance Use Type: Reports: Marijuana Substance Use Comment - Amount & Last Used: 01/10/2017 Hx Tobacco Use: Yes Smoking Status (MU): Former Smoker Type: Cigarettes Have You Smoked in the Last Year: No Review of Systems Negative: Fever Positive: Chest Pain - chronic Positive: Abdominal Pain, Nausea Positive: other - Decreased urinary output Positive: Other - RUE swelling Neurological: Other - Positive for dizziness Positive: Syncope All Other Systems Reviewed And Are Negative: Yes Physical Exam - Summary Physical Exam Summary: The patient is well-nourished in no acute distress and in no acute pain. The skin is warm and dry and skin color reflects adequate perfusion. HEENT: The head is normocephalic and atraumatic. The pupils are equal and reactive. The conjunctivae are clear and without drainage. Nares are patent and without drainage. Mouth reveals moist mucous membranes and the throat is without erythema and exudate. The external ears are intact. The ear canals are patent and without drainage. The tympanic membranes are intact. Neck is supple with full range of motion and non-tender. There are no carotid bruits. There is no neck vein distension. Respiratory: Chest is non-tender. Lungs are clear to auscultation and breath sounds are symmetrical and equal. Cardiovascular: Hear is regular rate and rhythm. Positive murmur. Abdomen: The abdomen is noted with epigastric tenderness. There are normal bowel sounds heard in all four quadrants and there is no organomegaly palpated. Musculoskeletal: There is no back pain noted. Extremities are non-tender with full range of motion. There is good capillary refill. There is no peripheral edema or calf tenderness elicited. Pitting edema bilat Neurological: Patient is alert and oriented to person, place and time. The patient has symmetrical motor strength in all four extremities. Cranial nerves are grossly intact. Deep tendon reflexes are symmetrical and equal in all four extremities. Psychiatric: The patient has an appropriate affect and does not exhibit any anxiety or depression. Triage Information Reviewed: Yes Vital Signs On Initial Exam: Initial Vitals Temp Pulse Resp BP Pulse Ox 98 F 73 18 180/110 99 03/30/17 04:02 03/30/17 04:02 03/30/17 04:02 03/30/17 04:02 03/30/17 04:02 Vital Signs Reviewed: Yes Diagnostics - Vital Signs Vital Signs Temp Pulse Resp BP Pulse Ox 03/30/17 04:02 98 F 73 18 180/110 99 - Laboratory Lab Results: Lab Results 03/30/17 03/30/17 03/30/17 Range/Units 05:02 05:02 05:02 WBC 3.3 L (3.5-10.8) 10^3/ul RBC 2.93 L (4.0-5.4) 10^6/ul Hgb 8.2 L (14.0-18.0) g/dl Hct 25 L (42-52) % MCV 86 (80-94) fL MCH 28 (27-31) pg MCHC 32 (31-36) g/dl RDW 21 H (10.5-15) % Plt Count 111 L (150-450) 10^3/ul MPV 8 (7.4-10.4) um3 Neut % (Auto) 62.7 (38-83) % Lymph % (Auto) 17.5 L (25-47) % Bureau % (Auto) 14.5 H (1-9) % Eos % (Auto) 3.7 (0-6) % Baso % (Auto) 1.6 (0-2) % Absolute Neuts (auto) 2.1 (1.5-7.7) 10^3/ul Absolute Lymphs (auto) 0.6 L (1.0-4.8) 10^3/ul Absolute Monos (auto) 0.5 (0-0.8) 10^3/ul Absolute Eos (auto) 0.1 (0-0.6) 10^3/ul Absolute Basos (auto) 0.1 (0-0.2) 10^3/ul Absolute Nucleated RBC 0 10^3/ul Nucleated RBC % 0 INR (Anticoag Therapy) (0.89-1.11) Sodium 131 L (133-145) mmol/L Potassium 6.5 H* (3.5-5.0) mmol/L Chloride 98 L (101-111) mmol/L Carbon Dioxide 26 (22-32) mmol/L Anion Gap 7 (2-11) mmol/L BUN 81 H (6-24) mg/dL Creatinine 11.77 H (0.67-1.17) mg/dL Est GFR ( Amer) 5.6 (>60) Est GFR (Non-Af Amer) 4.4 (>60) BUN/Creatinine Ratio 6.9 L (8-20) Glucose 81 (70-100) mg/dL Lactic Acid 0.5 (0.5-2.0) mmol/L Calcium 8.3 L (8.6-10.3) mg/dL Total Bilirubin 0.50 (0.2-1.0) mg/dL AST 33 (13-39) U/L ALT 17 (7-52) U/L Alkaline Phosphatase 63 (34-104) U/L C-Reactive Protein < 1.00 (< 5.00) mg/L Total Protein 8.2 (6.4-8.9) g/dL Albumin 4.1 (3.2-5.2) g/dL Globulin 4.1 H (2-4) g/dL Albumin/Globulin Ratio 1.0 (1-3) Amylase 85 (29-103) U/L Lipase 23 (11.0-82.0) U/L 03/30/17 Range/Units 05:02 WBC (3.5-10.8) 10^3/ul RBC (4.0-5.4) 10^6/ul Hgb (14.0-18.0) g/dl Hct (42-52) % MCV (80-94) fL MCH (27-31) pg MCHC (31-36) g/dl RDW (10.5-15) % Plt Count (150-450) 10^3/ul MPV (7.4-10.4) um3 Neut % (Auto) (38-83) % Lymph % (Auto) (25-47) % Bureau % (Auto) (1-9) % Eos % (Auto) (0-6) % Baso % (Auto) (0-2) % Absolute Neuts (auto) (1.5-7.7) 10^3/ul Absolute Lymphs (auto) (1.0-4.8) 10^3/ul Absolute Monos (auto) (0-0.8) 10^3/ul Absolute Eos (auto) (0-0.6) 10^3/ul Absolute Basos (auto) (0-0.2) 10^3/ul Absolute Nucleated RBC 10^3/ul Nucleated RBC % INR (Anticoag Therapy) 4.43 H (0.89-1.11) Sodium (133-145) mmol/L Potassium (3.5-5.0) mmol/L Chloride (101-111) mmol/L Carbon Dioxide (22-32) mmol/L Anion Gap (2-11) mmol/L BUN (6-24) mg/dL Creatinine (0.67-1.17) mg/dL Est GFR ( Amer) (>60) Est GFR (Non-Af Amer) (>60) BUN/Creatinine Ratio (8-20) Glucose (70-100) mg/dL Lactic Acid (0.5-2.0) mmol/L Calcium (8.6-10.3) mg/dL Total Bilirubin (0.2-1.0) mg/dL AST (13-39) U/L ALT (7-52) U/L Alkaline Phosphatase (34-104) U/L C-Reactive Protein (< 5.00) mg/L Total Protein (6.4-8.9) g/dL Albumin (3.2-5.2) g/dL Globulin (2-4) g/dL Albumin/Globulin Ratio (1-3) Amylase (29-103) U/L Lipase (11.0-82.0) U/L Result Diagrams: 03/30/17 05:02 03/30/17 05:02 Lab Statement: Any lab studies that have been ordered have been reviewed, and results considered in the medical decision making process. - EKG 0601 Cardiac Rate: NL EKG Rhythm: Sinus Rhythm EKG Interpretation: Prolonged QT Re-Evaluation - Re-Evaluation First Eval Re-Evaluation Time: 05:57 Comment: Dr. Burden in room to re-evaluate the pt. As discharge plan is discusssed , pt reports dizziness and near syncope. EKG ordered. Abdominal Pain Fem Course/Dx - Course Assessment/Plan: This 66 y/o male presents to ED for new onset of abd pain since yesterday. Pt states that his epigastric pain is different from his chronic abd pain. He also reports positive dizziness. Blood work indicates his chronic hyperkalemia and anemia. Hgb of 8.2 and potassium of 6.5 are noted in blood work. LFT wnl. Pt is agreeable to discharge and expresses desire to go to his dialysis. However pt again reports dizziness and near syncope as discharge plan is discussed. EKG was ordered and noted with NSR and prolonged QT. Pt is to be sent for dialysis. - Diagnoses Provider Diagnoses: Abdominal pain, Renal failure, Anemia Discharge - Discharge Plan Condition: Stable Disposition: HOME Patient Education Materials: Anemia (ED), Abdominal Pain (ED), Chronic Kidney Disease (ED) Referrals: Marielena Vargas MD [Primary Care Provider] - 2 Days The documentation as recorded by the Zana casey Soohyun accurately reflects the service I personally performed and the decisions made by , Keegan Burden MD.
== END 2017-03-30 06:22 | disposition home or self-care (01) ==
LOC: ED 04:01
DX: R10.13 Epigastric pain (principal); N19 Unspecified kidney failure; D64.9 Anemia, unspecified; R07.9 Chest pain, unspecified; R11.0 Nausea; R60.0 Localized edema; R55 Syncope and collapse
CPT/HCPCS: 36415; 80053; 82150; 83605; 83690; 85025; 85610; 86140; 93005; 96374; 96375; 99282; J2270; J2405

== ENCOUNTER 2017-04-01 01:38 | Emergency (ER) | payer MEDICARE, MEDICAID ==
[2017-04-01] MEDS ORDERED: Al Hydrox/Mg Hydrox/Simet LIQ* 30 ML UDC PO ONE (02:01)
[2017-04-01] MEDS ORDERED: Lidocaine 2% VISCOUS* 15 ML UDC PO ONE (02:01)
[2017-04-01] MEDS ORDERED: Ondansetron ODT TAB* 4 MG SL ONE (02:19)
[2017-04-01] MEDS ORDERED: Ondansetron ODT TAB* 4 MG ONE (02:21)
--- NOTE | 2017-04-01 02:53 | ED ---
Harrison Briones Benjamin, scribed for Luis Fernando Jimenez MD on 04/01/17 at 0212 . Abdominal Pain/Male - HPI Summary HPI Summary: 66yo male c/o having abdominal pain, dizziness, and nausea for a couple of days that is now slightly worse than initially. Pt also reports diarrhea. - History of Current Complaint Chief Complaint: EDAbdPain Stated Complaint: DIZZY/RLQ PAIN Time Seen by Provider: 04/01/17 01:50 Hx Obtained From: Patient Onset/Duration: Gradual Onset, Lasting Days, Still Present Timing: Constant Severity Initially: Mild Severity Currently: Moderate Pain Intensity: 8 Pain Scale Used: 0-10 Numeric Location: Diffuse Radiates: No Aggravating Factor(s): Nothing Alleviating Factor(s): Nothing Associated Signs And Symptoms: Positive: Dizzy, Nausea - Allergies/Home Medications Allergies/Adverse Reactions: Allergies Allergy/AdvReac Type Severity Reaction Status Date / Time Aspirin Allergy Unknown See Comment Verified 03/09/17 14:01 Hydromorphone [From Dilaudid] AdvReac Intermediate Nausea And Verified 03/09/17 14:01 Vomiting PMH/Surg Hx/FS Hx/Imm Hx Endocrine/Hematology History: Reports: Hx Blood Transfusions, Hx Sickle Cell Disease - Was told had sickle cell at one point but denies, Hx Anemia Denies: Hx Anticoagulant Therapy, Hx Bone Marrow Disease, Hx Diabetes, Hx Thyroid Disease Cardiovascular History: Reports: Hx Angina, Hx Auto Implanted Cardiovert Defib, Hx Congestive Heart Failure, Hx Coronary Artery Disease, Hx Hypertension, Hx Pacemaker/ICD, Hx Peripheral Vascular Disease, Hx Syncope, Other Cardiovascular Problems/Disorders - cardiomegaly, mitral valve and tricuspid valve repair Denies: Hx Cardiomegaly, Hx Hypercholesterolemia, Hx Myocardial Infarction, Hx Rheumatic Fever, Hx Valvular Heart Disease Respiratory History: Reports: Hx Asthma, Hx Chronic Obstructive Pulmonary Disease (COPD), Hx Pleural Effusion, Hx Pneumonia, Other Respiratory Problems/ Disorders - SOB Denies: Hx Pulmonary Edema, Hx Pulmonary Embolism, Hx Sleep Apnea GI History: Reports: Hx Cirrhosis, Hx Gastroesophageal Reflux Disease, Hx Ulcer - peptic ulcer, Other GI Disorders - hep C Denies: Hx Crohn's Disease, Hx Hiatal Hernia, Hx Irritable Bowel, Hx Jaundice History: Reports: Hx Acute Renal Failure, Hx Chronic Renal Failure, Hx Dialysis, Hx Renal Disease, Other Problems/Disorders - end stage renal disease, on dialysis Denies: Hx Kidney Infection, Hx Kidney Stones Musculoskeletal History: Reports: Hx Arthritis, Hx Back Problems - chronic pain , Hx Orthopedic Injury Denies: Hx Rheumatoid Arthritis, Hx Bursitis, Hx Tendonitis, Other Musculoskeletal History Sensory History: Reports: Hx Contacts or Glasses, Hx Glaucoma, Hx Vision Problem Denies: Hx Cataracts, Hx Hearing Aid Opthamlomology History: Reports: Hx Contacts or Glasses, Hx Glaucoma, Hx Vision Problem Denies: Hx Cataracts Neurological History: Reports: Hx Headaches, Hx Migraine, Other Neuro Impairments/Disorders - depression Denies: Hx Dementia, Hx Seizures Psychiatric History: Reports: Hx Anxiety, Hx Depression Denies: Hx Eating Disorder, Hx Panic Disorder, Hx Suicide Attempt, Hx of Violent Episodes Against Others, Hx Substance Abuse - Cancer History Hx Chemotherapy: No Hx Radiation Therapy: No Hx Palliative Cancer Treatment: No - Surgical History Surgery Procedure, Year, and Place: HERNIA REPAIR 2012. APPENDECTOMY 2000. LEFT ARM AV FISTULA/CAD - REMOVED. CABG 1 vessel, mitral & tricuspid valve repair March 02, 2014 AT [facility] CONDITIONAL 5 UPTO 3T. POWER PORT. Mitral and tricuspid valve repair Hx Anesthesia Reactions: No - Immunization History Date of Tetanus Vaccine: 2014 Date of Influenza Vaccine: Fall 2015 Infectious Disease History: No Infectious Disease History: Reports: Hx Hepatitis, Hx of Known/Suspected MRSA, History Other Infectious Disease - Hepatitis C Denies: Hx Clostridium Difficile, Hx Human Immunodeficiency Virus (HIV), Hx Shingles, Hx Tuberculosis, Hx Known/Suspected VRE, Hx Known/Suspected VRSA, Traveled Outside the in Last 30 Days - Family History Known Family History: Positive: None, Cardiac Disease, Hypertension, Other - CVA Family History: R & N/C - Social History Occupation: Disabled Lives: Alone Alcohol Use: None Alcohol Amount: former EtOH abuse Hx Substance Use: Yes Substance Use Type: Reports: Marijuana Substance Use Comment - Amount & Last Used: 01/10/2017 Hx Tobacco Use: Yes Smoking Status (MU): Former Smoker Type: Cigarettes Have You Smoked in the Last Year: No Review of Systems Constitutional: Negative Eyes: Negative ENT: Negative Cardiovascular: Negative Respiratory: Negative Positive: Abdominal Pain, Diarrhea, Nausea Genitourinary: Negative Musculoskeletal: Negative Skin: Negative Neurological: Other - dizziness Psychological: Normal All Other Systems Reviewed And Are Negative: Yes Physical Exam Triage Information Reviewed: Yes Vital Signs On Initial Exam: Initial Vitals Temp Pulse Resp BP Pulse Ox 96.7 F 79 20 145/117 96 04/01/17 01:42 04/01/17 01:42 04/01/17 01:42 04/01/17 01:42 04/01/17 01:42 Vital Signs Reviewed: Yes Appearance: Positive: Well-Appearing, No Pain Distress Skin: Positive: Warm Head/Face: Positive: Normal Head/Face Inspection Eyes: Positive: KINGS ENT: Positive: Hearing grossly normal Neck: Positive: Supple Respiratory/Lung Sounds: Positive: Breath Sounds Present Cardiovascular: Positive: RRR Abdomen Description: Positive: Nontender, Soft Bowel Sounds: Positive: Present Musculoskeletal: Positive: Strength/ROM Intact Neurological: Positive: Alert, Oriented to Person Place, Time - [place] Coma Scale Coma Scale Total: 15 Diagnostics - Vital Signs Vital Signs Temp Pulse Resp BP Pulse Ox 04/01/17 01:57 96.7 F 79 20 174/89 96 04/01/17 01:42 96.7 F 79 20 145/117 96 - Laboratory Lab Statement: Any lab studies that have been ordered have been reviewed, and results considered in the medical decision making process. Re-Evaluation - Re-Evaluation First Eval Change: Improved - pt pain mayo after gi cocktail, seen in ed x 2 recently for same, pt requesting d/c as he has dialysis this am Abdominal Pain Fem Course/Dx - Diagnoses Provider Diagnoses: Abdominal pain Discharge - Discharge Plan Condition: Stable Disposition: HOME Patient Education Materials: Abdominal Pain (ED) Referrals: Marielena Vargas MD [Primary Care Provider] - The documentation as recorded by the Harrison casey Benjamin accurately reflects the service I personally performed and the decisions made by , Luis Fernando Jimenez MD.
[2017-04-01 04:40] VITALS: BP 177/86
== END 2017-04-01 04:40 | disposition home or self-care (01) ==
LOC: ED 01:38
DX: R10.9 Unspecified abdominal pain (principal); R42 Dizziness and giddiness; R19.7 Diarrhea, unspecified; R11.0 Nausea; Z87.891 Personal history of nicotine dependence
CPT/HCPCS: 99282; A9270-GY

== ENCOUNTER → 2017-04-01 10:34 | Emergency (ER) | payer MEDICARE, MEDICAID ==
[2017-04-01 12:00] VITALS: BP 158/115
== END | disposition left against medical advice (07) ==
LOC: ED 10:34
DX: R10.9 Unspecified abdominal pain (principal); Z53.21 Procedure and treatment not carried out due to patient leaving prior to being seen by health care provider

== ENCOUNTER 2017-04-27 14:47 | Inpatient (IN) | payer MEDICARE, MEDICAID ==
--- NOTE | 2017-04-27 15:39 | RAD ---
HISTORY: Chest pain COMPARISONS: March 13, 2017 VIEWS:1: Single frontal portable view of the chest at 3:10 PM FINDINGS: LINES AND TUBES: A left-sided AICD is noted. A dual-lumen catheter is noted from a right internal jugular vein approach with the tip overlying the superior vena cava. CARDIOMEDIASTINAL SILHOUETTE: Prosthetic heart valves are noted. The cardiomediastinal silhouette is stable. PLEURA: There are small bilateral pleural effusions, stable LUNG PARENCHYMA: There is patchy alveolar opacification lung bases bilaterally, similar to the previous examination. ABDOMEN: The upper abdomen is clear. There is no subphrenic gas. BONES AND SOFT TISSUES: The patient is status post median sternotomy. IMPRESSION: SMALL BILATERAL PLEURAL EFFUSIONS WITH BIBASILAR ATELECTASIS VERSUS CONSOLIDATION, SIMILAR TO THE PREVIOUS EXAMINATION.
[2017-04-27] MEDS: NS 0.9% 1000 ML* 1,000 ML IV ONE ×2 (15:44→17:05)
[2017-04-27 15:46] LABS: Hematocrit 34 % (42-52); Hemoglobin 10.6 g/dl (14.0-18.0); Mean Corpuscular HGB Conc 31 g/dl (31-36); Mean Corpuscular Hemoglobin 29 pg (27-31); Mean Corpuscular Volume 92 fL (80-94); Mean Platelet Volume 8 um3 (7.4-10.4); Red Cell Distribution Width 20 % (10.5-15); White Blood Count 3.5 10^3/ul (3.5-10.8)
[2017-04-27 16:07] LABS: Troponin I 0.04 ng/mL (<0.04)
[2017-04-27 16:09] LABS: Albumin 4.3 g/dL (3.2-5.2); BUN/Creatinine Ratio 4.7 (8-20); Calcium 9.6 mg/dL (8.6-10.3); EGFR African American 16.4 (>60); EGFR Non-African American 12.8 (>60); Globulin 4.9 g/dL (2-4); Magnesium 2.5 mg/dL (1.9-2.7); Potassium 4.9 mmol/L (3.5-5.0); Total Bilirubin 0.7 mg/dL (0.2-1.0); Total Protein 9.2 g/dL (6.4-8.9)
[2017-04-27 16:28] LABS: T4 11.29 mcg/mL (6.09-12.23)
[2017-04-27 16:29] LABS: TSH (Thyroid Stimulating Horm) 3.65 mcIU/mL (0.34-5.60)
[2017-04-27] MEDS ORDERED: Morphine INJ* 2 MG/ML 1 ML SYRINGE IV ONE (17:01)
[2017-04-27] MEDS ORDERED: Morphine INJ* 2 MG/ML 1 ML SYRINGE ONE (17:03)
[2017-04-27] MEDS ORDERED: Nitroglycerin TAB 0.4 MG* 0.4 MG TAB SL PRN (18:22)
[2017-04-27] MEDS ORDERED: diPHENhydraMINE PO* 50 MG PO PRN (18:22)
[2017-04-27] MEDS ORDERED: Acetaminophen TAB* 325 MG PO PRN (18:22)
[2017-04-27] MEDS ORDERED: Polyethylene Glycol 3350* 17 GM PACKET PO PRN (18:22)
[2017-04-27] MEDS ORDERED: LORazepam TAB(*) 1 MG PO PRN (18:22)
[2017-04-27] MEDS ORDERED: Pancrelipase (NF) 12,000 UNITS CAP.DR PO SCH (19:00)
[2017-04-27] MEDS ORDERED: oxyCODONE TAB* 5 MG TAB PO ONE (19:20)
--- NOTE | 2017-04-27 19:57 | RAD ---
INDICATION: Right lower quadrant pain COMPARISON: Similar exam dated January 12, 2017 TECHNIQUE: Supine and upright views of the abdomen were obtained. FINDINGS: Surgical clips overlying the right lower quadrant are unchanged from the previous radiograph. The small bowel and colon appear nondistended. No free intraperitoneal air is seen. No grossly abnormal or pathologic appearing calcifications are noted. Visualized bones are within normal limits for the patient's age. IMPRESSION: No radiographically apparent acute abnormality of the abdomen.
[2017-04-27] MEDS: Gabapentin CAP(*) 300 MG PO SCH (20:25)
[2017-04-27] MEDS: hydrALAZINE TAB* 25 MG PO SCH (20:26)
[2017-04-27] MEDS ORDERED: traZODone TAB* 50 MG TAB PO SCH (21:00)
[2017-04-27] MEDS ORDERED: Zolpidem TAB* 10 MG PO PRN (21:00)
[2017-04-27] MEDS: Omeprazole CAP* 20 MG PO SCH (21:51)
[2017-04-27] MEDS: Heparin VIAL(*) 5000 UNITS/ML VIAL (FIVE THOUSAND) SUBCUT SCH (21:53)
--- NOTE | 2017-04-27 22:28 | ED ---
Matthew Briones Alfonso, scribed for Soumya Mccracken MD on 04/27/17 at 1539 . Abdominal Pain/Male - HPI Summary HPI Summary: This patient is a 66 year old M presenting to [facility] with a chief complaint of sharp lower abdominal pain since earlier today. Pt rates the pain 10/10 in severity. Presents requesting a "GI cocktail". Symptoms aggravated by cough, sneezes, yawns, and pressure. Sx alleviated by nothing. Pt reports CP. Pt denies diarrhea. Reports two BM today. Pt had dialysis earlier today. States he is at his dry weight. Dialysis catheter in right anterior chest. Pt with fistula in right arm, but pt states it is clotted and cannot be used. PMHx of renal failure. PSHx of endarterectomy in right jugular. - History of Current Complaint Chief Complaint: EDChestPainROMI Stated Complaint: CHEST /ABD PAIN Time Seen by Provider: 04/27/17 15:04 Hx Obtained From: Patient Onset/Duration: Sudden Onset, Lasting Minutes - 1400 today, Still Present Timing: Constant Severity Initially: Severe Severity Currently: Severe Pain Intensity: 10 Pain Scale Used: 0-10 Numeric Location: Other - Lower abd Radiates: No Character: Sharp Aggravating Factor(s): Other: - cough, sneezes, yawns, and pressure Alleviating Factor(s): Nothing Associated Signs And Symptoms: Positive: Chest Pain. Negative: Diarrhea - Allergies/Home Medications Allergies/Adverse Reactions: Allergies Allergy/AdvReac Type Severity Reaction Status Date / Time Aspirin Allergy Unknown See Comment Verified 03/09/17 14:01 Hydromorphone [From Dilaudid] AdvReac Intermediate Nausea And Verified 03/09/17 14:01 Vomiting PMH/Surg Hx/FS Hx/Imm Hx Endocrine/Hematology History: Reports: Hx Blood Transfusions, Hx Sickle Cell Disease - Was told had sickle cell at one point but denies, Hx Anemia Denies: Hx Anticoagulant Therapy, Hx Bone Marrow Disease, Hx Diabetes, Hx Thyroid Disease Cardiovascular History: Reports: Hx Angina, Hx Auto Implanted Cardiovert Defib, Hx Congestive Heart Failure, Hx Coronary Artery Disease, Hx Hypertension, Hx Pacemaker/ICD, Hx Peripheral Vascular Disease, Hx Syncope, Other Cardiovascular Problems/Disorders - cardiomegaly, mitral valve and tricuspid valve repair Denies: Hx Cardiomegaly, Hx Hypercholesterolemia, Hx Myocardial Infarction, Hx Rheumatic Fever, Hx Valvular Heart Disease Respiratory History: Reports: Hx Asthma, Hx Chronic Obstructive Pulmonary Disease (COPD), Hx Pleural Effusion, Hx Pneumonia, Other Respiratory Problems/ Disorders Denies: Hx Pulmonary Edema, Hx Pulmonary Embolism, Hx Sleep Apnea GI History: Reports: Hx Cirrhosis, Hx Gastroesophageal Reflux Disease, Hx Ulcer - peptic ulcer, Other GI Disorders - hep C Denies: Hx Crohn's Disease, Hx Hiatal Hernia, Hx Irritable Bowel, Hx Jaundice History: Reports: Hx Chronic Renal Failure, Hx Dialysis, Hx Renal Disease Denies: Hx Kidney Infection, Hx Kidney Stones Musculoskeletal History: Reports: Hx Arthritis, Hx Back Problems - chronic pain , Hx Orthopedic Injury Denies: Hx Rheumatoid Arthritis, Hx Bursitis, Hx Tendonitis, Other Musculoskeletal History Sensory History: Reports: Hx Contacts or Glasses, Hx Glaucoma, Hx Vision Problem Denies: Hx Cataracts, Hx Hearing Aid Opthamlomology History: Reports: Hx Contacts or Glasses, Hx Glaucoma, Hx Vision Problem Denies: Hx Cataracts Neurological History: Reports: Hx Headaches, Hx Migraine Denies: Hx Dementia, Hx Seizures Psychiatric History: Reports: Hx Anxiety, Hx Depression Denies: Hx Eating Disorder, Hx Panic Disorder, Hx Suicide Attempt, Hx of Violent Episodes Against Others, Hx Substance Abuse - Cancer History Hx Chemotherapy: No Hx Radiation Therapy: No Hx Palliative Cancer Treatment: No - Surgical History Surgery Procedure, Year, and Place: HERNIA REPAIR 2012. APPENDECTOMY 2000. LEFT ARM AV FISTULA/CAD - REMOVED. CABG 1 vessel, mitral & tricuspid valve repair March 02, 2014 AT [facility] CONDITIONAL 5 UPTO 3T. POWER PORT. 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, Hx Known/Suspected VRSA, Traveled Outside the [place] in Last 30 Days - Family History Known Family History: Positive: Cardiac Disease, Hypertension, Other - CVA Family History: R & N/C - Social History Occupation: Disabled Alcohol Use: None Alcohol Amount: former EtOH abuse Hx Substance Use: Yes Substance Use Type: Reports: Marijuana Substance Use Comment - Amount & Last Used: 01/10/2017 Hx Tobacco Use: Yes Smoking Status (MU): Former Smoker Type: Cigarettes Have You Smoked in the Last Year: No Review of Systems Negative: Fever Positive: Chest Pain Respiratory: Negative Positive: Abdominal Pain - Sharp lower. Negative: Diarrhea Skin: Negative Neurological: Negative Psychological: Normal All Other Systems Reviewed And Are Negative: Yes Physical Exam Triage Information Reviewed: Yes Vital Signs On Initial Exam: Initial Vitals Temp Pulse Resp BP 97.8 F 81 20 198/109 04/27/17 14:47 04/27/17 14:47 04/27/17 14:47 04/27/17 14:47 Vital Signs Reviewed: Yes Appearance: Positive: Well-Nourished, Ill-Appearing, Pain Distress Skin: Positive: Warm, Skin Color Reflects Adequate Perfusion, Other - dialysis catheter right ant chest, fistula right arm (pt states clotted. but still with thrill and bruit). Head/Face: Positive: Normal Head/Face Inspection Eyes: Positive: Conjunctiva Clear ENT: Positive: Normal ENT inspection Neck: Positive: Supple, Nontender Respiratory/Lung Sounds: Positive: Clear to Auscultation, Breath Sounds Present Cardiovascular: Positive: RRR, Pulses are Symmetrical in both Upper and Lower Extremities. Negative: Murmur Abdomen Description: Positive: No Organomegaly, Soft, Other: - Exquisitely tender in abdomen. Maximum tenderness at umbilicus. Bowel Sounds: Positive: Present Musculoskeletal: Positive: Strength/ROM Intact. Negative: Soledad Sign Left, Soledad Sign Right, Edema Left, Edema Right Neurological: Positive: Sensory/Motor Intact, Alert, Oriented to Person Place, Time, CN Intact II-III Psychiatric: Positive: Normal - Kian Coma Scale Coma Scale Total: 15 Diagnostics - Vital Signs Vital Signs Temp Pulse Resp BP Pulse Ox 04/27/17 15:10 97.8 F 81 20 198/109 97 04/27/17 14:47 97.8 F 81 20 198/109 - Laboratory Lab Results: Lab Results 04/27/17 04/27/17 04/27/17 Range/Units 15:35 15:35 15:35 WBC 3.5 (3.5-10.8) 10^3/ul RBC 3.70 L (4.0-5.4) 10^6/ul Hgb 10.6 L (14.0-18.0) g/dl Hct 34 L (42-52) % MCV 92 (80-94) fL MCH 29 (27-31) pg MCHC 31 (31-36) g/dl RDW 20 H (10.5-15) % Plt Count 157 (150-450) 10^3/ul MPV 8 (7.4-10.4) um3 Neut % (Auto) 63.3 (38-83) % Lymph % (Auto) 17.3 L (25-47) % Slope % (Auto) 16.7 H (1-9) % Eos % (Auto) 1.3 (0-6) % Baso % (Auto) 1.4 (0-2) % Absolute Neuts (auto) 2.2 (1.5-7.7) 10^3/ul Absolute Lymphs (auto) 0.6 L (1.0-4.8) 10^3/ul Absolute Monos (auto) 0.6 (0-0.8) 10^3/ul Absolute Eos (auto) 0 (0-0.6) 10^3/ul Absolute Basos (auto) 0 (0-0.2) 10^3/ul Absolute Nucleated RBC 0.01 10^3/ul Nucleated RBC % 0.2 INR (Anticoag Therapy) 1.42 H (0.89-1.11) APTT 37.5 H (26.0-36.3) seconds D-Dimer, Quantitative 726 H (Less Than 230) ng/mL Sodium 136 (133-145) mmol/L Potassium 4.9 (3.5-5.0) mmol/L Chloride 92 L (101-111) mmol/L Carbon Dioxide 35 H (22-32) mmol/L Anion Gap 9 (2-11) mmol/L BUN 22 (6-24) mg/dL Creatinine 4.65 H (0.67-1.17) mg/dL Est GFR ( Amer) 16.4 (>60) Est GFR (Non-Af Amer) 12.8 (>60) BUN/Creatinine Ratio 4.7 L (8-20) Glucose 110 H (70-100) mg/dL Lactic Acid (0.5-2.0) mmol/L Calcium 9.6 (8.6-10.3) mg/dL Magnesium 2.5 (1.9-2.7) mg/dL Total Bilirubin 0.70 (0.2-1.0) mg/dL AST 50 H (13-39) U/L ALT 22 (7-52) U/L Alkaline Phosphatase 74 (34-104) U/L Total Creatine Kinase 162 (10-223) U/L CK-MB (CK-2) 3.1 (0.6-6.3) ng/mL Troponin I 0.04 H* (<0.04) ng/mL B-Natriuretic Peptide ( - 100) pg/mL Total Protein 9.2 H (6.4-8.9) g/dL Albumin 4.3 (3.2-5.2) g/dL Globulin 4.9 H (2-4) g/dL Albumin/Globulin Ratio 0.9 L (1-3) TSH 3.65 (0.34-5.60) mcIU/mL Thyroxine (T4) 11.29 (6.09-12.23) mcg/mL 04/27/17 04/27/17 Range/Units 15:35 15:35 WBC (3.5-10.8) 10^3/ul RBC (4.0-5.4) 10^6/ul Hgb (14.0-18.0) g/dl Hct (42-52) % MCV (80-94) fL MCH (27-31) pg MCHC (31-36) g/dl RDW (10.5-15) % Plt Count (150-450) 10^3/ul MPV (7.4-10.4) um3 Neut % (Auto) (38-83) % Lymph % (Auto) (25-47) % Slope % (Auto) (1-9) % Eos % (Auto) (0-6) % Baso % (Auto) (0-2) % Absolute Neuts (auto) (1.5-7.7) 10^3/ul Absolute Lymphs (auto) (1.0-4.8) 10^3/ul Absolute Monos (auto) (0-0.8) 10^3/ul Absolute Eos (auto) (0-0.6) 10^3/ul Absolute Basos (auto) (0-0.2) 10^3/ul Absolute Nucleated RBC 10^3/ul Nucleated RBC % INR (Anticoag Therapy) (0.89-1.11) APTT (26.0-36.3) seconds D-Dimer, Quantitative (Less Than 230) ng/mL Sodium (133-145) mmol/L Potassium (3.5-5.0) mmol/L Chloride (101-111) mmol/L Carbon Dioxide (22-32) mmol/L Anion Gap (2-11) mmol/L BUN (6-24) mg/dL Creatinine (0.67-1.17) mg/dL Est GFR ( Amer) (>60) Est GFR (Non-Af Amer) (>60) BUN/Creatinine Ratio (8-20) Glucose (70-100) mg/dL Lactic Acid 1.2 (0.5-2.0) mmol/L Calcium (8.6-10.3) mg/dL Magnesium (1.9-2.7) mg/dL Total Bilirubin (0.2-1.0) mg/dL AST (13-39) U/L ALT (7-52) U/L Alkaline Phosphatase (34-104) U/L Total Creatine Kinase (10-223) U/L CK-MB (CK-2) (0.6-6.3) ng/mL Troponin I (<0.04) ng/mL B-Natriuretic Peptide 5219 H ( - 100) pg/mL Total Protein (6.4-8.9) g/dL Albumin (3.2-5.2) g/dL Globulin (2-4) g/dL Albumin/Globulin Ratio (1-3) TSH (0.34-5.60) mcIU/mL Thyroxine (T4) (6.09-12.23) mcg/mL Result Diagrams: 04/27/17 15:35 04/27/17 15:35 Lab Statement: Any lab studies that have been ordered have been reviewed, and results considered in the medical decision making process. - Radiology CXR Radiology Interpretation Completed By: Radiologist - SMALL BILATERAL PLEURAL EFFUSIONS WITH BIBASILAR ATELECTASIS VERSUS CONSOLIDATION, SIMILAR TO THE PREVIOUS EXAMINATION. - EKG 1453 Cardiac Rate: NL - BPM 75 EKG Rhythm: Sinus Rhythm EKG Interpretation: Normal AV, IV, and QTc. Negative [place] -20. EKG Comparison: Other - T-wave inversion and ST depression in V5-V6 new compared to 03/30/17 Abdominal Pain Fem Course/Dx - Course Assessment/Plan: CXR reveals SMALL BILATERAL PLEURAL EFFUSIONS WITH BIBASILAR ATELECTASIS VERSUS CONSOLIDATION, SIMILAR TO THE PREVIOUS EXAMINATION. An EKG reveals T-wave inversion and ST depression in V5-V6 new compared to 03/30/17. Blood work shows troponin I of 0.04, d-dimer 726, and BNP 5219. We discussed patient care with Dr. Brothers and they recommended admission under their care for further evaluation of new EKG changes and abdominal pain. Pt is agreeable with this plan. Allergies noted. High blood pressure noted. Pt medications reviewed this visit. - Diagnoses Differential Diagnosis/HQI/PQRI: ACS, AMI, Constipation, Diverticulitis, Pancreatitis, Ureteral Stone Provider Diagnoses: Chest pain in adult, Abdominal pain in male, ESRD (end stage renal disease) on dialysis - Provider Notifications Discussed Care Of Patient With: Natalia Brothers Time Discussed With Above Provider: 17:10 Instructed by Provider To: Admit As Observation - Consulted Dr. Brothers ( hospitalist) who agrees to admit. - Critical Care Time Critical Care Time: 30-74 min - 30 minutes Discharge - Discharge Plan Condition: Stable Disposition: ADMITTED TO [facility] documentation as recorded by the Matthew casey Alfonso accurately reflects the service I personally performed and the decisions made by , Soumya Mccracken MD.
--- NOTE | 2017-04-28 00:33 | HP ---
CC: Dr. Marielena Vargas * [facility] MEDICINE HISTORY AND PHYSICAL: DATE OF ADMISSION: 04/27/17 PRIMARY CARE PHYSICIAN: Dr. Marielena Vargas ATTENDING PHYSICIAN: Dr. Natalia Martin * (dictation provided by Concepcion Barnes NP ). CHIEF COMPLAINT: Chest and abdominal pain. HISTORY OF PRESENT ILLNESS: Mr. Templeton is a 66-year-old male with a past medical history of end-stage renal disease, on hemodialysis, coronary artery bypass graft with CAD, pacemaker, AFib, peripheral vascular disease, chronic pain with multiple admissions for chest and abdominal pain, who presents again to the hospital today with chest pain and with abdominal pain. Mr. Templeton states that he went to dialysis today per his usual routine on Thursday, Thursday , and Thursday. He was having chest and abdominal discomfort, but thought that it would be alleviated after dialysis. However, he states it only grew worse. He reports pain in the right lower quadrant. He states that he has had pain there in the past, but he has also had pain on the other side and it seems to be variable. He also has mid sternal chest discomfort, again which is a chronic issue for him. He states that he came to the emergency room because the pain was much more severe than usual. He states that taking deep breath makes the abdominal pain worse as does coughing. He has had normal daily formed bowel movements. He has had no fever. He has been tolerating oral intake well. He has had no shortness of breath. In the emergency room, Mr. Templeton had mildly elevated troponin at 0.04, but this is consistent with his baseline chronic elevated troponin. It was repeated and again 0.04. His BNP is elevated at 5219, but again this is consistent with all of his previous BNPs for the past 5 years. Remainder of his labs are unremarkable. PAST MEDICAL HISTORY: 1. End-stage renal disease with hemodialysis on Thursday, Thursday, and Thursday. 2. 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 3. Coronary artery bypass graft. 4. Pacemaker with ICD. 5. Atrial fibrillation. 6. Peripheral vascular disease. 7. GERD. 8. Hep C. 9. Anemia. 10. History of mitral and tricuspid valve repairs. 11. Chronic pain. 12. Cardiomyopathy. 13. History of appendectomy. MEDICATIONS: The patient states that "all my medications are the same." Based on the previous medication reconciliation, the patient is on: 1. Albuterol sulfate 2 puffs inhaled q.4 hours p.r.n. 2. B complex with vitamin C 1 tab p.o. daily. 3. Sodium polystyrene 15 g p.o. daily p.r.n. 4. Tylenol 650 mg p.o. q.8 hours p.r.n. 5. Carvedilol 12.5 mg p.o. b.i.d. with meals. 6. Cinacalcet 30 mg p.o. daily. 7. Docusate 100 mg p.o. daily. 8. Lexapro 10 mg p.o. daily. 9. Gabapentin 600 mg p.o. t.i.d. 10. Isosorbide mononitrate ER 60 mg p.o. daily. 11. Lorazepam 0.5 to 1 mg p.o. b.i.d. p.r.n. 12. Lisinopril 10 mg p.o. daily. 13. Nitroglycerin tab 0.4 mg sublingual q.5 minutes p.r.n. 14. Omeprazole 40 mg p.o. b.i.d. 15. Oxycodone 15 mg p.o. q.4 hours p.r.n. 16. Pancrelipase 12,000 units p.o. q.i.d. a.c. with meals. 17. Polyethylene glycol 17 g p.o. daily p.r.n. 18. Simvastatin 10 mg p.o. daily. 19. Sodium polystyrene 15 g p.o. Thursday, Thursday, , Thursday. 20. Sucroferric oxyhydroxide 2000 mg p.o. with meals. 21. Zolpidem 10 mg p.o. bedtime p.r.n. 22. Amlodipine 10 mg p.o. daily. 23. Diphenhydramine 50 mg p.o. daily p.r.n. 24. Hydralazine 50 mg p.o. t.i.d. 25. Trazodone 100 mg p.o. bedtime. FAMILY HISTORY: The patient's mother had coronary artery disease and a stroke. SOCIAL HISTORY: No report of current alcohol, tobacco, or drug use. There has been a concern that perhaps the patient was diverting narcotic medication. He is currently receiving his narcotics through Dr. Marielena Vargas, his new primary care physician. REVIEW OF SYSTEMS: A 14-point review of systems was completed with Mr. Templeton. All those not mentioned above were negative. PHYSICAL EXAMINATION GENERAL: Mr. Templeton is sitting up in the chair, in no acute distress. VITAL SIGNS: Temperature 97.8, heart rate 81, respiratory rate 26, blood pressure 193/121, O2 saturation 97%. LUNGS: Clear to auscultation bilaterally. HEART: S1, S2. There is a murmur at the sternal border. ABDOMEN: Soft, nontender. Bowel sounds positive x4. EXTREMITIES: No cyanosis or edema. SKIN: Intact. NEUROLOGIC: He is alert. He is oriented x3. He moves all extremities equally. There is no facial asymmetry or focal weakness. Extraocular movements are intact. DIAGNOSTIC STUDIES/LAB DATA: WBC 3.5, hemoglobin 10.6, hematocrit 34, platelet count 157. INR 1.42. Sodium 136, potassium 4.9, chloride 92, serum bicarbonate 35, BUN 22, creatinine 4.65, glucose 110, lactic acid 1.2. Troponin 0.04, repeated again 0.04. BNP is 5219. Chest x-ray shows no acute process. EKG showed concern from some flattening or T- wave inversion in V5, V6, which is new from previous. ASSESSMENT: Mr. Templeton is a 66-year-old male with a past medical history of end - stage renal disease, on hemodialysis; as well as coronary artery disease; mitral and tricuspid valve repairs; pacemaker ICD; AFib; and cardiomyopathy, with multiple admissions for chest pain and abdominal pain, who presents again today with chest pain and abdominal pain. Our plans are for observation in the hospital based on the presence of EKG changes, which are subtle and nondiagnostic. Our plans are for the followin. Chest pain. Plan to cycle troponins. The patient's last stress test was in November 2016. I think the EKG changes are nondiagnostic, but we should monitor him overnight. 2. Abdominal pain. His main complaint seems to be of right lower quadrant abdominal pain. Plan to check an abdominal x-ray. I do note that in January, there was concern for possible small bowel obstruction. He will continue with his home oxycodone. 3. End-stage renal disease, on hemodialysis. Continue home medications and routine dialysis. 4. Hypertension. Continue home medications. 5. Anxiety. Continue home medications. 6. History of pancreatitis. Continue pancrelipase. 7. DVT prophylaxis with heparin subcu. 8. Disposition to telemetry. TIME SPENT: Approximately 60 minutes were spent on the admission of this patient, more than half the time was spent with the patient at the bedside reviewing the events leading up to this hospitalization, performing the physical examination, and reviewing the plan of care. CONCEPCION BARNES, ALISSON [id number]/CPS #: [id number] STEPHANIE
[2017-04-28] MEDS: Heparin VIAL(*) 5000 UNITS/ML VIAL (FIVE THOUSAND) SUBCUT SCH ×2 (06:19→15:37)
--- NOTE | 2017-04-28 08:19 | PN ---
Subjective Date of Service: 04/28/17 Interval History: Patient seen and examined at bedside. Mr. Templeton reports that he had severe RLQ abd pain last night but is now better. It still comes intermittently. Patient also reported increased midsternal chest pain that is intermittent. It does not radiate to neck, jaw, shoulders, back, or arm. Patient reports some chronic midsternal chest pain, but this has been worse. He reports movement and activity as an aggravating factor. He thought it would improve after dialysis but did not. 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 He denies any fever/chills, nausea/vomiting or other symptoms of concern. Family History: Unchanged from Admission Social History: Unchanged from Admission Past Medical History: Unchanged from Admission Objective Active Medications: Acetaminophen (Tylenol Tab*) 650 mg PO Q8HR PRN PRN Reason: PAIN Amlodipine Besylate (Norvasc Tab*) 10 mg PO DAILY [facility] Carvedilol (Coreg Tab*) 12.5 mg PO BID WITH MEALS [facility] Cinacalcet (Sensipar Tab*) 30 mg PO DAILY [facility] Citalopram Hydrobromide (Celexa Tab*) 20 mg PO DAILY [facility] Diphenhydramine HCl (Benadryl Po*) 50 mg PO DAILY PRN PRN Reason: Allergy Symptoms Docusate Sodium (Colace Cap*) 100 mg PO DAILY [facility] Gabapentin (Neurontin Cap(*)) 600 mg PO TID [facility] Last Admin: 04/27/17 20:25 Dose: 600 mg Heparin Sodium (Porcine) (Heparin Vial(*)) 5,000 units SUBCUT Q8HR [facility] Last Admin: 04/28/17 06:19 Dose: Not Given Hydralazine HCl (Apresoline Tab*) 50 mg PO TID [facility] Last Admin: 04/27/17 20:26 Dose: 50 mg Isosorbide Mononitrate (Imdur Er Tab*) 60 mg PO DAILY [facility] Lisinopril (Prinivil Tab*) 10 mg PO DAILY [facility] Lorazepam (Ativan Tab(*)) 1 mg PO BID PRN PRN Reason: ANXIETY Nitroglycerin (Nitroglycerin Tab 0.4 Mg*) 0.4 mg SL Q5M PRN PRN Reason: PAIN - CHEST Non-Formulary Medication (Sucroferric Oxyhydroxide [Velphoro]) 2,000 mg PO AC [facility] Omeprazole (Prilosec Cap*) 40 mg PO 0730,1630 [facility] Last Admin: 04/27/17 21:51 Dose: 40 mg Oxycodone HCl (Roxycodone Tab*) 15 mg PO Q4HR PRN PRN Reason: PAIN Pancrelipase (Creon (Nf)) 12,000 units PO .QID AC [facility] Polyethylene Glycol/Electrolytes (Miralax*) 17 gm PO DAILY PRN PRN Reason: CONSTIPATION Simvastatin (Zocor(Nf)) 10 mg PO DAILY [facility] Sodium Polystyrene Sulfonate (Kayexalate Oral.Joanna*) 15 gm PO SUTUTHSA [facility] Trazodone HCl (Desyrel Tab*) 100 mg PO BEDTIME [facility] Last Admin: 04/27/17 20:24 Dose: 100 mg Zolpidem Tartrate (Ambien Tab*) 10 mg PO BEDTIME PRN PRN Reason: SLEEP Vital Signs 04/27/17 04/27/17 04/27/17 17:18 17:39 20:23 Temperature 98.3 F Pulse Rate 74 78 Respiratory 20 18 16 Rate Blood Pressure 220/114 (mmHg) O2 Sat by Pulse 95 93 Oximetry 04/27/17 04/27/17 04/27/17 20:25 22:11 22:23 Temperature 97.4 F Pulse Rate 74 Respiratory 16 20 18 Rate Blood Pressure 171/103 (mmHg) O2 Sat by Pulse 100 Oximetry 04/27/17 04/28/17 04/28/17 22:25 01:03 02:14 Temperature 98.4 F Pulse Rate 77 Respiratory 18 16 Rate Blood Pressure 148/86 (mmHg) O2 Sat by Pulse 96 100 Oximetry Oxygen Devices in Use Now: None Appearance: Older male patient, lying in bed, NAD Eyes: PERRLA Ears/Nose/Mouth/Throat: Mucous Membranes Moist Neck: NL Appearance and Movements; NL JVP Respiratory: Symmetrical Chest Expansion and Respiratory Effort, Clear to Auscultation Cardiovascular: RRR - systolic murmur Abdominal: NL Sounds; No Tenderness; No Distention Extremities: - - trace edema to bilateral feet Neurological: Alert and Oriented x 3 Lines/Tubes/Other Access: Clean, Dry and Intact Peripheral IV Nutrition: Taking PO's Result Diagrams: 04/27/17 15:35 04/27/17 15:35 Additional Lab and Data: Lab Results 04/27/17 04/27/17 04/27/17 Range/Units 15:35 15:35 15:35 WBC 3.5 (3.5-10.8) 10^3/ul RBC 3.70 L (4.0-5.4) 10^6/ul Hgb 10.6 L (14.0-18.0) g/dl Hct 34 L (42-52) % MCV 92 (80-94) fL MCH 29 (27-31) pg MCHC 31 (31-36) g/dl RDW 20 H (10.5-15) % Plt Count 157 (150-450) 10^3/ul MPV 8 (7.4-10.4) um3 Neut % (Auto) 63.3 (38-83) % Lymph % (Auto) 17.3 L (25-47) % [place] % (Auto) 16.7 H (1-9) % Eos % (Auto) 1.3 (0-6) % Baso % (Auto) 1.4 (0-2) % Absolute Neuts (auto) 2.2 (1.5-7.7) 10^3/ul Absolute Lymphs (auto) 0.6 L (1.0-4.8) 10^3/ul Absolute Monos (auto) 0.6 (0-0.8) 10^3/ul Absolute Eos (auto) 0 (0-0.6) 10^3/ul Absolute Basos (auto) 0 (0-0.2) 10^3/ul Absolute Nucleated RBC 0.01 10^3/ul Nucleated RBC % 0.2 INR (Anticoag Therapy) 1.42 H (0.89-1.11) APTT 37.5 H (26.0-36.3) seconds D-Dimer, Quantitative 726 H (Less Than 230) ng/mL Sodium 136 (133-145) mmol/L Potassium 4.9 (3.5-5.0) mmol/L Chloride 92 L (101-111) mmol/L Carbon Dioxide 35 H (22-32) mmol/L Anion Gap 9 (2-11) mmol/L BUN 22 (6-24) mg/dL Creatinine 4.65 H (0.67-1.17) mg/dL Est GFR ( Amer) 16.4 (>60) Est GFR (Non-Af Amer) 12.8 (>60) BUN/Creatinine Ratio 4.7 L (8-20) Glucose 110 H (70-100) mg/dL Lactic Acid (0.5-2.0) mmol/L Calcium 9.6 (8.6-10.3) mg/dL Magnesium 2.5 (1.9-2.7) mg/dL Total Bilirubin 0.70 (0.2-1.0) mg/dL AST 50 H (13-39) U/L ALT 22 (7-52) U/L Alkaline Phosphatase 74 (34-104) U/L Total Creatine Kinase 162 (10-223) U/L CK-MB (CK-2) 3.1 (0.6-6.3) ng/mL Troponin I 0.04 H* (<0.04) ng/mL B-Natriuretic Peptide ( - 100) pg/mL Total Protein 9.2 H (6.4-8.9) g/dL Albumin 4.3 (3.2-5.2) g/dL Globulin 4.9 H (2-4) g/dL Albumin/Globulin Ratio 0.9 L (1-3) TSH 3.65 (0.34-5.60) mcIU/mL Thyroxine (T4) 11.29 (6.09-12.23) mcg/mL 04/27/17 04/27/17 Range/Units 15:35 15:35 WBC (3.5-10.8) 10^3/ul RBC (4.0-5.4) 10^6/ul Hgb (14.0-18.0) g/dl Hct (42-52) % MCV (80-94) fL MCH (27-31) pg MCHC (31-36) g/dl RDW (10.5-15) % Plt Count (150-450) 10^3/ul MPV (7.4-10.4) um3 Neut % (Auto) (38-83) % Lymph % (Auto) (25-47) % [place] % (Auto) (1-9) % Eos % (Auto) (0-6) % Baso % (Auto) (0-2) % Absolute Neuts (auto) (1.5-7.7) 10^3/ul Absolute Lymphs (auto) (1.0-4.8) 10^3/ul Absolute Monos (auto) (0-0.8) 10^3/ul Absolute Eos (auto) (0-0.6) 10^3/ul Absolute Basos (auto) (0-0.2) 10^3/ul Absolute Nucleated RBC 10^3/ul Nucleated RBC % INR (Anticoag Therapy) (0.89-1.11) APTT (26.0-36.3) seconds D-Dimer, Quantitative (Less Than 230) ng/mL Sodium (133-145) mmol/L Potassium (3.5-5.0) mmol/L Chloride (101-111) mmol/L Carbon Dioxide (22-32) mmol/L Anion Gap (2-11) mmol/L BUN (6-24) mg/dL Creatinine (0.67-1.17) mg/dL Est GFR ( Amer) (>60) Est GFR (Non-Af Amer) (>60) BUN/Creatinine Ratio (8-20) Glucose (70-100) mg/dL Lactic Acid 1.2 (0.5-2.0) mmol/L Calcium (8.6-10.3) mg/dL Magnesium (1.9-2.7) mg/dL Total Bilirubin (0.2-1.0) mg/dL AST (13-39) U/L ALT (7-52) U/L Alkaline Phosphatase (34-104) U/L Total Creatine Kinase (10-223) U/L CK-MB (CK-2) (0.6-6.3) ng/mL Troponin I (<0.04) ng/mL B-Natriuretic Peptide 5219 H ( - 100) pg/mL Total Protein (6.4-8.9) g/dL Albumin (3.2-5.2) g/dL Globulin (2-4) g/dL Albumin/Globulin Ratio (1-3) TSH (0.34-5.60) mcIU/mL Thyroxine (T4) (6.09-12.23) mcg/mL Assess/Plan/Problems-Billing Assessment: Mr. Templeton is a 66 yo male who presented to the ED on 04/27/17 with concern for chest and abdominal pain. - Patient Problems (1) Chest pain Code(s): R07.9 - CHEST PAIN, UNSPECIFIED Comment: Troponins 0.04, which is within patient's baseline Concern for EKG changes, new T wave inversions in V5, V6 and previous ST depressions seen in II, V5, V6 on ED EKG. When patient last stressed, no critical ischemia seen on stress test images. Patient has not had outpatient cardiology follow-up recently. Will increase patient's Imdur, start 30 mg this evening for total dose of 90 mg. Plan for stress test, patient in agreement with this plan. (2) Abdominal pain Code(s): R10.9 - UNSPECIFIED ABDOMINAL PAIN Comment: KUB negative for any acute abdominal pathology, including SBO. Will check abdominal US, but suspect this may be a chronic complaint. Patient with hx chronic abdominal pain. Continue prn oxycodone. (3) End stage renal failure on dialysis Code(s): N18.6 - END STAGE RENAL DISEASE; Z99.2 - DEPENDENCE ON RENAL DIALYSIS Comment: Continue HD MWF. (4) Hypertension Code(s): I10 - ESSENTIAL (PRIMARY) HYPERTENSION Comment: Previously hypertensive but improving. Continue home amlodipine, lisinopril, carvedilol, hydralazine, and isosorbide. (5) Coronary artery disease Code(s): I25.10 - ATHSCL HEART DISEASE OF [place] CORONARY ARTERY W/O ANG PCTRS Comment: Continue home medication regimen, as above. Continue simvastatin. (6) DVT prophylaxis Comment: SQ heparin Status and Disposition: OBV admit. Anticipate dc to home tomorrow.
[2017-04-28] MEDS ORDERED: Cinacalcet TAB* 30 MG PO SCH (09:00)
[2017-04-28] MEDS ORDERED: Citalopram TAB* 20 MG PO SCH (09:00)
[2017-04-28] MEDS ORDERED: Docusate CAP* 100 MG PO SCH (09:00)
[2017-04-28] MEDS ORDERED: Lisinopril TAB* 10 MG PO SCH (09:00)
[2017-04-28] MEDS ORDERED: amLODIPine TAB* 5 MG PO SCH (09:00)
[2017-04-28] MEDS ORDERED: CMCS:Simvastatin TAB(NF) 10 MG TAB PO SCH (09:00)
[2017-04-28] MEDS ORDERED: Isosorbide Mononitrate ER TAB* 60 MG PO SCH (09:00)
[2017-04-28] MEDS: SUCROFERRIC OXYHYDROXIDE PO SCH ×3 (09:08→16:22)
[2017-04-28] MEDS: Carvedilol TAB* 6.25 MG PO SCH ×2 (09:23→15:50)
[2017-04-28] MEDS: Gabapentin CAP(*) 300 MG PO SCH ×2 (09:23→15:50)
[2017-04-28] MEDS: hydrALAZINE TAB* 25 MG PO SCH ×2 (09:24→15:50)
[2017-04-28] MEDS: oxyCODONE TAB* 5 MG TAB PO PRN ×2 (09:24→16:00)
[2017-04-28] MEDS: Omeprazole CAP* 20 MG PO SCH ×2 (09:24→15:50)
[2017-04-28 15:37] VITALS: BP 178/82
[2017-04-28] MEDS ORDERED: Isosorbide Mononitrate ER TAB* 30 MG PO SCH (18:00)
[2017-04-28] MEDS ORDERED: Sodium Polystyrene ORAL.SOL* 15 GM/60 ML BTL PO SCH (18:22)
--- NOTE | 2017-04-29 12:22 | RAD ---
INDICATION: EKG changes. Rest only exam. Stress portion of exam canceled. COMPARISON: November 13, 2016 rest only exam. TECHNIQUE: 10.200 mCi of Tc-99m Myoview were administered IV. SPECT images of the heart were obtained. FINDINGS: Diaphragmatic attenuation noted with correction on the attenuation corrected series. Accounting for this the radiopharmaceutical uptake at the LEFT ventricle myocardium is within normal limits at rest. IMPRESSION: Limited rest only myocardial perfusion exam without evidence for presence of a significant perfusion defect at rest.
--- NOTE | 2017-04-29 12:33 | DS ---
DISCHARGE/AMA NOTE: DATE OF ADMISSION: 04/27/17 DATE OF LEAVING AGAINST MEDICAL ADVICE: 04/28/17 PRIMARY DIAGNOSIS: Chest pain. SECONDARY DIAGNOSES: Include: 1. End-stage renal disease. 2. History of internal jugular thrombus. 3. Coronary artery disease with bypass, permanent pacer with ICD. 4. Atrial fibrillation. 5. Peripheral vascular disease. 6. Hepatitis C. MEDICATIONS ON DISCHARGE: Medication reconciliation was not completed as the patient left prior to any paperwork being completed. The patient left prior to signing AMA paperwork. HISTORY OF PRESENT ILLNESS AND HOSPITAL COURSE: This is a 66-year-old man well known to the hospitalist service who was presented to the emergency room with chest pain, who was admitted to the hospitalist service with a planned stress test. His EKG was notable for new T-wave inversions inferolaterally. The patient remained chest pain free during the course of the day, however, had breakfast as well as caffeine and so stress test was postponed until tomorrow. Apparently during the course of the day, there was some concern that the patient was "pocketing" his narcotics and not taking them at the time. The patient apparently was confronted with this information, became irate and promptly left the hospital. He was seen by this author prior to when he was leaving. I did indicate the risks of leaving the hospital against medical advice at the time prior to his stress test including but not limited to sudden cardiac , respiratory failure, severe morbidity and/or mortality. The patient was given alternative of staying and attempting to alleviate his concerns. He was able to articulate the risks inherited in leaving against medical advice at this time and still chose to leave against medical advice. He was encouraged to return to the patient should he have any recurrent or worsening symptoms including chest pain. It is unclear to this author whether he was not taking or pocketing his medication, however, per RN report, it was very clear that he had attempted to store his narcotics either for later use consumption or distribution. TIME SPENT: Greater than 30 minutes was spent on the discharge of this patient ; greater than half was spent [id number] with the patient. [id number]/[facility] #: [id number] MTDD
== END 2017-04-28 18:30 | disposition left against medical advice (07) | DRG 313 ==
LOC: ED 14:47 → MEDTELE 17:10 → OBSVTOIN 04-28 14:44
PROVIDERS: ADMIT Internal Medicine; ATTEND Internal Medicine
DX: R07.9 Chest pain, unspecified (principal); I25.810 Atherosclerosis of coronary artery bypass graft(s) without angina pectoris; N18.6 End stage renal disease; I42.9 Cardiomyopathy, unspecified; I13.11 Hypertensive heart and chronic kidney disease without heart failure, with stage 5 chronic kidney disease, or end stage renal disease; Z99.2 Dependence on renal dialysis; Z95.1 Presence of aortocoronary bypass graft; I48.91 Unspecified atrial fibrillation; I73.9 Peripheral vascular disease, unspecified; K21.9 Gastro-esophageal reflux disease without esophagitis; B19.20 Unspecified viral hepatitis C without hepatic coma; R10.31 Right lower quadrant pain; D64.9 Anemia, unspecified; Z95.810 Presence of automatic (implantable) cardiac defibrillator; Z86.718 Personal history of other venous thrombosis and embolism; Z79.1 Long term (current) use of non-steroidal anti-inflammatories (NSAID); Z79.891 Long term (current) use of opiate analgesic; Z79.899 Other long term (current) drug therapy; Z82.49 Family history of ischemic heart disease and other diseases of the circulatory system; Z82.3 Family history of stroke
CPT/HCPCS: 36415; 71010; 74020; 78451; 80053; 82550; 82553; 83605; 83735; 83880; 84436; 84443; 84484; 85025; 85379; 85610; 85730; 93005; A9270-GY; A9502; G0378; J1644; J2270

== ENCOUNTER 2017-05-04 12:40 | Emergency (ER) | payer MEDICARE, MEDICAID ==
[2017-05-04] MEDS ORDERED: Aspirin Low Dose CHEW TAB* 81 MG PO ONE (14:30)
[2017-05-04] MEDS ORDERED: Nitroglycerin TAB 0.4 MG* 0.4 MG TAB SL ONE (14:30)
[2017-05-04 14:49] LABS: Hematocrit 34 % (42-52); Hemoglobin 10.7 g/dl (14.0-18.0); Mean Corpuscular HGB Conc 32 g/dl (31-36); Mean Corpuscular Hemoglobin 29 pg (27-31); Mean Corpuscular Volume 91 fL (80-94); Mean Platelet Volume 8 um3 (7.4-10.4); Red Blood Count 3.68 10^6/ul (4.0-5.4); Red Cell Distribution Width 19 % (10.5-15); White Blood Count 3.7 10^3/ul (3.5-10.8)
--- NOTE | 2017-05-04 14:58 | ED ---
HPI Chest Pain - HPI Summary HPI Summary: Patient presents with left sided chest pain radiating to his shoulder at 10/10 and requesting pain medication. Pain began while at dialysis this morning. He took 3 nitro without effect per patient, and states likely they did not work because they were . He has never had this pain before although has been seen several times for a similar complaint. He is in no acute distress on exam. Not worse with inspiration or exertion. Not better with rest. PMHx significant for CABG x 2 in 2014, pacemaker, dialysis 3x per week. Further evaluation of notes reveals similar complaints with request for IV morphine with relief. He is always subsequently discharged home after a negative workup. Pain is usually onset during dialysis. He is non-compliant with medications and appts per nursing staff. He recently left without being seen ( [facility]BS) this morning and returned several hours later, again asking for morphine on arrival. Denies diaphoresis, light headedness, SELBY, abdominal pain, N/V/C/D. Denies back pain. Family history significant for cardiac and kidney problems. - History of Current Complaint Chief Complaint: EDChestPainROMI Time Seen by Provider: 05/04/17 14:17 Hx Obtained From: Patient Onset/Duration: Started Hours Ago Time of Onset: 09:00 Timing: Constant Initial Severity: Severe Current Severity: Severe Pain Intensity: 10 Pain Scale Used: 0-10 Numeric Chest Pain Location: Discrete at:, Left Anterior, Left Lateral Chest Pain Radiates: Yes Chest Pain Radiates To:: Shoulder Associated Signs and Symptoms: Positive: Chest Pain - Risk Factors Pulmonary Embolism Risk Factors: Negative TAD Risk Factors: Negative AMI/ACS Risk Factors: Myocardial Infarction, Sedentary Lifestyle, Diabetes, Family History, Nitroglycerine Use, Hypertension, Dyslipidemia - Additional Pertinent History Primary Care Physician: YARIEL - Allergy/Home Medications Allergies/Adverse Reactions: Allergies Allergy/AdvReac Type Severity Reaction Status Date / Time Aspirin Allergy Unknown See Comment Verified 03/09/17 14:01 Hydromorphone [From Dilaudid] AdvReac Intermediate Nausea And Verified 03/09/17 14:01 Vomiting PMH/Surg Hx/FS Hx/Imm Hx Previously Healthy: No - see below Endocrine/Hematology History: Reports: Hx Blood Transfusions, Hx Sickle Cell Disease - Was told had sickle cell at one point but denies, Hx Anemia Denies: Hx Anticoagulant Therapy, Hx Bone Marrow Disease, Hx Diabetes, Hx Thyroid Disease Cardiovascular History: Reports: Hx Angina, Hx Auto Implanted Cardiovert Defib, Hx Congestive Heart Failure, Hx Coronary Artery Disease, Hx Hypertension, Hx Pacemaker/ICD, Hx Peripheral Vascular Disease, Hx Syncope, Other Cardiovascular Problems/Disorders - cardiomegaly, mitral valve and tricuspid valve repair Denies: Hx Cardiomegaly, Hx Hypercholesterolemia, Hx Myocardial Infarction, Hx Rheumatic Fever, Hx Valvular Heart Disease Respiratory History: Reports: Hx Asthma, Hx Chronic Obstructive Pulmonary Disease (COPD), Hx Pleural Effusion, Hx Pneumonia, Other Respiratory Problems/ Disorders Denies: Hx Pulmonary Edema, Hx Pulmonary Embolism, Hx Sleep Apnea GI History: Reports: Hx Cirrhosis, Hx Gastroesophageal Reflux Disease, Hx Ulcer - peptic ulcer, Other GI Disorders - hep C Denies: Hx Crohn's Disease, Hx Hiatal Hernia, Hx Irritable Bowel, Hx Jaundice History: Reports: Hx Acute Renal Failure, Hx Chronic Renal Failure, Hx Dialysis, Hx Renal Disease, Other Problems/Disorders - end stage renal disease, on dialysis Denies: Hx Kidney Infection, Hx Kidney Stones Musculoskeletal History: Reports: Hx Arthritis, Hx Back Problems - chronic pain , Hx Orthopedic Injury Denies: Hx Rheumatoid Arthritis, Hx Bursitis, Hx Tendonitis, Other Musculoskeletal History Sensory History: Reports: Hx Contacts or Glasses, Hx Glaucoma, Hx Vision Problem Denies: Hx Cataracts, Hx Hearing Aid Opthamlomology History: Reports: Hx Contacts or Glasses, Hx Glaucoma, Hx Vision Problem Denies: Hx Cataracts Neurological History: Reports: Hx Headaches, Hx Migraine, Other Neuro Impairments/Disorders - depression Denies: Hx Dementia, Hx Seizures Psychiatric History: Reports: Hx Anxiety, Hx Depression Denies: Hx Eating Disorder, Hx Panic Disorder, Hx Suicide Attempt, Hx of Violent Episodes Against Others, Hx Substance Abuse - Cancer History Hx Chemotherapy: No Hx Radiation Therapy: No Hx Palliative Cancer Treatment: No - Surgical History Surgery Procedure, Year, and Place: HERNIA REPAIR 2012. APPENDECTOMY 2000. LEFT ARM AV FISTULA/CAD - REMOVED. CABG 1 vessel, mitral & tricuspid valve repair March 02, 2014 AT [facility] CONDITIONAL 5 UPTO 3T. POWER PORT. Mitral and tricuspid valve repair Hx Anesthesia Reactions: No - Immunization History Date of Tetanus Vaccine: 2014 Date of Influenza Vaccine: Fall 2015 Hx Pertussis Vaccination: No Immunizations Up to Date: Unable to Obtain/Confirm Infectious Disease History: Yes Infectious Disease History: Reports: Hx Hepatitis - Hep C, Hx of Known/ Suspected MRSA, History Other Infectious Disease - Hepatitis C Denies: Hx Clostridium Difficile, Hx Human Immunodeficiency Virus (HIV), Hx Shingles, Hx Tuberculosis, Hx Known/Suspected VRE, Hx Known/Suspected VRSA, Traveled Outside the [place] in Last 30 Days - Family History Known Family History: Positive: None, Cardiac Disease, Hypertension, Other - CVA Family History: R & N/C - Social History Occupation: Unemployed Lives: With Family Alcohol Use: None Alcohol Amount: former EtOH abuse Hx Substance Use: Yes Substance Use Type: Reports: Marijuana Substance Use Comment - Amount & Last Used: 01/10/2017 Hx Tobacco Use: Yes Smoking Status (MU): Former Smoker Type: Cigarettes Amount Used/How Often: 1/2 ppd Length of Time of Smoking/Using Tobacco: 10 years Have You Smoked in the Last Year: No Review of Systems Constitutional: Negative Eyes: Negative Positive: Chest Pain Positive: no symptoms reported, see HPI Musculoskeletal: Negative Skin: Negative Psychological: Normal All Other Systems Reviewed And Are Negative: Yes Physical Exam Triage Information Reviewed: Yes Vital Signs On Initial Exam: Initial Vitals Temp Pulse Resp BP Pulse Ox 99.8 F 83 17 125/92 97 05/04/17 12:44 05/04/17 12:44 05/04/17 12:44 05/04/17 12:44 05/04/17 12:44 Vital Signs Reviewed: Yes Appearance: Positive: Ill-Appearing, Pain Distress Skin: Positive: Warm, Skin Color Reflects Adequate Perfusion Head/Face: Positive: Normal Head/Face Inspection Eyes: Positive: EOMI, KINGS, Conjunctiva Clear Neck: Positive: Supple, No Lymphadenopathy Respiratory/Lung Sounds: Positive: Clear to Auscultation, Breath Sounds Present Cardiovascular: Positive: Normal - pacemaker, Pulses are Symmetrical in both Upper and Lower Extremities Neurological: Positive: Normal, Sensory/Motor Intact, Alert, Oriented to Person Place, Time Psychiatric: Positive: Normal Diagnostics - Vital Signs Vital Signs Temp Pulse Resp BP Pulse Ox 05/04/17 14:30 144/119 05/04/17 14:20 76 96 05/04/17 14:18 138/114 05/04/17 13:17 97.5 F 78 18 125/92 97 05/04/17 12:44 99.8 F 83 17 125/92 97 - Laboratory Lab Results: Lab Results 05/04/17 05/04/17 Range/Units 14:38 14:38 WBC 3.7 (3.5-10.8) 10^3/ul RBC 3.68 L (4.0-5.4) 10^6/ul Hgb 10.7 L (14.0-18.0) g/dl Hct 34 L (42-52) % MCV 91 (80-94) fL MCH 29 (27-31) pg MCHC 32 (31-36) g/dl RDW 19 H (10.5-15) % Plt Count 137 L (150-450) 10^3/ul MPV 8 (7.4-10.4) um3 Neut % (Auto) 61.7 (38-83) % Lymph % (Auto) 18.7 L (25-47) % [place] % (Auto) 16.3 H (1-9) % Eos % (Auto) 1.9 (0-6) % Baso % (Auto) 1.4 (0-2) % Absolute Neuts (auto) 2.3 (1.5-7.7) 10^3/ul Absolute Lymphs (auto) 0.7 L (1.0-4.8) 10^3/ul Absolute Monos (auto) 0.6 (0-0.8) 10^3/ul Absolute Eos (auto) 0.1 (0-0.6) 10^3/ul Absolute Basos (auto) 0.1 (0-0.2) 10^3/ul Absolute Nucleated RBC 0 10^3/ul Nucleated RBC % 0 INR (Anticoag Therapy) 1.56 H (0.89-1.11) Result Diagrams: 05/04/17 14:38 05/04/17 14:38 Lab Statement: Any lab studies that have been ordered have been reviewed, and results considered in the medical decision making process. Chest Pain Course/Dx - Course Course Of Treatment: Patient evaluated for chest pain. EKG no changes from previous visit. Trop 0.04 which has remained consistent with no changes. Labs no changes. Myoglobin elevated but not other draw for comparison. chest xray shows bilateral pleural effusions with no changes. Patient feeling improved after 1 SL nitro. Denies other complaints at this time and requesting discharge. - Chest Pain Differential Diagnosis/HQI/PQRI: Acute OK, Angina, Chest Wall - Diagnoses Provider Diagnoses: Chest pain Discharge - Discharge Plan Condition: Stable Disposition: HOME Prescriptions: Nitroglycerin TAB 0.4 MG* 0.4 mg SL Q5M PRN #15 tab PRN Reason: Pain Patient Education Materials: Chest Pain (ED) Referrals: Marielena Vargas MD [Primary Care Provider] - Additional Instructions: Follow up with PCP Follow up with director quality systems notro has been prescribed to you if you develop acute chest pains You may take up to three every 5 minutes, but come to the ED immediately for evaluation
[2017-05-04 15:05] LABS: Albumin 4.5 g/dL (3.2-5.2); BUN/Creatinine Ratio 4.3 (8-20); Calcium 9.1 mg/dL (8.6-10.3); EGFR African American 12.7 (>60); EGFR Non-African American 9.9 (>60); Globulin 4.5 g/dL (2-4); Potassium 4.6 mmol/L (3.5-5.0); Total Bilirubin 0.7 mg/dL (0.2-1.0)
--- NOTE | 2017-05-04 15:06 | RAD ---
INDICATION: Chest pain. COMPARISON: Comparison is made with a prior chest x-ray study from April 27, 2017. TECHNIQUE: A portable view of the chest was obtained. FINDINGS: The patient is status post sternotomy and cardiac valve surgery. The heart is moderately enlarged and unchanged from the prior exam. There are small bilateral pleural effusions and bibasilar infiltrates which appear unchanged. IMPRESSION: SMALL BILATERAL PLEURAL EFFUSIONS AND BIBASILAR INFILTRATES, UNCHANGED.
[2017-05-04 15:07] LABS: Troponin I 0.04 ng/mL (<0.04)
[2017-05-04 15:23] LABS: Magnesium 2.2 mg/dL (1.9-2.7)
[2017-05-04 15:30] LABS: TSH (Thyroid Stimulating Horm) 3.23 mcIU/mL (0.34-5.60)
[2017-05-04 15:40] VITALS: BP 146/73
== END 2017-05-05 03:45 | disposition home or self-care (01) ==
LOC: ED 12:40
DX: R07.89 Other chest pain (principal); I50.9 Heart failure, unspecified; I25.119 Atherosclerotic heart disease of native coronary artery with unspecified angina pectoris; I10 Essential (primary) hypertension; Z95.810 Presence of automatic (implantable) cardiac defibrillator; J44.9 Chronic obstructive pulmonary disease, unspecified; K21.9 Gastro-esophageal reflux disease without esophagitis; N18.6 End stage renal disease; Z99.2 Dependence on renal dialysis; G43.909 Migraine, unspecified, not intractable, without status migrainosus; F41.9 Anxiety disorder, unspecified; F32.9 Major depressive disorder, single episode, unspecified; Z88.6 Allergy status to analgesic agent; Z88.5 Allergy status to narcotic agent; Z87.891 Personal history of nicotine dependence; R78.9 Finding of unspecified substance, not normally found in blood; Z95.1 Presence of aortocoronary bypass graft; F12.90 Cannabis use, unspecified, uncomplicated
CPT/HCPCS: 36415; 71010; 80053; 82550; 82553; 83605; 83735; 83874; 83880; 84443; 84484; 85025; 85610; 85730; 93005; 96374; 96375; 99282; 99283; A9270-GY; J2270; J2405

== ENCOUNTER 2017-05-04 23:39 | Emergency (ER) | payer MEDICARE, MEDICAID ==
[2017-05-05] MEDS ORDERED: Morphine INJ* 4 MG/ML 1 ML SYRINGE IV ONE (01:09)
[2017-05-05] MEDS ORDERED: Ondansetron INJ* 2 MG/ML VIAL IV ONE (01:09)
[2017-05-05 02:36] LABS: Hematocrit 33 % (42-52); Hemoglobin 10.5 g/dl (14.0-18.0); Mean Corpuscular HGB Conc 32 g/dl (31-36); Mean Corpuscular Hemoglobin 29 pg (27-31); Mean Corpuscular Volume 91 fL (80-94); Mean Platelet Volume 9 um3 (7.4-10.4); Red Blood Count 3.64 10^6/ul (4.0-5.4); Red Cell Distribution Width 19 % (10.5-15); White Blood Count 3.6 10^3/ul (3.5-10.8)
[2017-05-05 02:49] LABS: Albumin 4.1 g/dL (3.2-5.2); BUN/Creatinine Ratio 4.4 (8-20); Calcium 8.9 mg/dL (8.6-10.3); EGFR African American 10.9 (>60); EGFR Non-African American 8.5 (>60); Globulin 4.3 g/dL (2-4); Potassium 4.7 mmol/L (3.5-5.0); Total Bilirubin 0.6 mg/dL (0.2-1.0); Total Protein 8.4 g/dL (6.4-8.9)
[2017-05-05 03:00] LABS: Troponin I 0.04 ng/mL (<0.04)
--- NOTE | 2017-05-05 03:39 | ED ---
Harrison Briones Benjamin, scribed for Annie Boyd MD on 05/05/17 at 0222 . HPI Chest Pain - HPI Summary HPI Summary: 66yo male who was seen earlier today for returns with sharp CP that also li occasionally since yesterday. Pain is located at the mid sternum, and is triggered with cough. Also reports pain down his legs. Pt had dialysis done this morning. - History of Current Complaint Chief Complaint: EDChestPainROMI Time Seen by Provider: 05/05/17 00:05 Hx Obtained From: Patient Onset/Duration: Started Days Ago, Still Present Timing: Constant Initial Severity: Moderate Current Severity: Moderate Pain Scale Used: 0-10 Numeric Chest Pain Location: Mid Sternal Chest Pain Radiates: No Character: Burning, Sharp/Stabbing Aggravating Factor(s): Nothing Alleviating Factor(s): Nothing Associated Signs and Symptoms: Positive: Chest Pain - Additional Pertinent History Primary Care Physician: YARIEL - Allergy/Home Medications Allergies/Adverse Reactions: Allergies Allergy/AdvReac Type Severity Reaction Status Date / Time Aspirin Allergy Unknown See Comment Verified 03/09/17 14:01 Hydromorphone [From Dilaudid] AdvReac Intermediate Nausea And Verified 03/09/17 14:01 Vomiting PMH/Surg Hx/FS Hx/Imm Hx Endocrine/Hematology History: Reports: Hx Blood Transfusions, Hx Sickle Cell Disease - Was told had sickle cell at one point but denies, Hx Anemia Denies: Hx Anticoagulant Therapy, Hx Bone Marrow Disease, Hx Diabetes, Hx Thyroid Disease Cardiovascular History: Reports: Hx Angina, Hx Auto Implanted Cardiovert Defib, Hx Congestive Heart Failure, Hx Coronary Artery Disease, Hx Hypertension, Hx Pacemaker/ICD, Hx Peripheral Vascular Disease, Hx Syncope, Other Cardiovascular Problems/Disorders - cardiomegaly, mitral valve and tricuspid valve repair Denies: Hx Cardiomegaly, Hx Hypercholesterolemia, Hx Myocardial Infarction, Hx Rheumatic Fever, Hx Valvular Heart Disease Respiratory History: Reports: Hx Asthma, Hx Chronic Obstructive Pulmonary Disease (COPD), Hx Pleural Effusion, Hx Pneumonia, Other Respiratory Problems/ Disorders Denies: Hx Pulmonary Edema, Hx Pulmonary Embolism, Hx Sleep Apnea GI History: Reports: Hx Cirrhosis, Hx Gastroesophageal Reflux Disease, Hx Ulcer - peptic ulcer, Other GI Disorders - hep C Denies: Hx Crohn's Disease, Hx Hiatal Hernia, Hx Irritable Bowel, Hx Jaundice History: Reports: Hx Acute Renal Failure, Hx Chronic Renal Failure, Hx Dialysis, Hx Renal Disease, Other Problems/Disorders - end stage renal disease, on dialysis Denies: Hx Kidney Infection, Hx Kidney Stones Musculoskeletal History: Reports: Hx Arthritis, Hx Back Problems - chronic pain , Hx Orthopedic Injury Denies: Hx Rheumatoid Arthritis, Hx Bursitis, Hx Tendonitis, Other Musculoskeletal History Sensory History: Reports: Hx Contacts or Glasses, Hx Glaucoma, Hx Vision Problem Denies: Hx Cataracts, Hx Hearing Aid Opthamlomology History: Reports: Hx Contacts or Glasses, Hx Glaucoma, Hx Vision Problem Denies: Hx Cataracts Neurological History: Reports: Hx Headaches, Hx Migraine, Other Neuro Impairments/Disorders - depression Denies: Hx Dementia, Hx Seizures Psychiatric History: Reports: Hx Anxiety, Hx Depression Denies: Hx Eating Disorder, Hx Panic Disorder, Hx Suicide Attempt, Hx of Violent Episodes Against Others, Hx Substance Abuse - Cancer History Hx Chemotherapy: No Hx Radiation Therapy: No Hx Palliative Cancer Treatment: No - Surgical History Surgery Procedure, Year, and Place: HERNIA REPAIR 2012. APPENDECTOMY 2000. LEFT ARM AV FISTULA/CAD - REMOVED. CABG 1 vessel, mitral & tricuspid valve repair March 02, 2014 AT [facility] CONDITIONAL 5 UPTO 3T. POWER PORT. Mitral and tricuspid valve repair Hx Anesthesia Reactions: No - Immunization History Date of Tetanus Vaccine: 2014 Date of Influenza Vaccine: Fall 2015 Infectious Disease History: Yes Infectious Disease History: Reports: Hx Hepatitis - Hep C, Hx of Known/ Suspected MRSA, History Other Infectious Disease - Hepatitis C Denies: Hx Clostridium Difficile, Hx Human Immunodeficiency Virus (HIV), Hx Shingles, Hx Tuberculosis, Hx Known/Suspected VRE, Hx Known/Suspected VRSA, Traveled Outside the in Last 30 Days - Family History Known Family History: Positive: None, Cardiac Disease, Hypertension, Other - CVA Family History: R & N/C - Social History Alcohol Use: None Alcohol Amount: former EtOH abuse Hx Substance Use: Yes Substance Use Type: Reports: Marijuana Substance Use Comment - Amount & Last Used: today Hx Tobacco Use: Yes Smoking Status (MU): Former Smoker Type: Cigarettes Amount Used/How Often: 1/2 ppd Length of Time of Smoking/Using Tobacco: 10 years Have You Smoked in the Last Year: No Review of Systems Constitutional: Negative Eyes: Negative ENT: Negative Positive: Chest Pain. Negative: Palpitations Positive: Shortness Of Breath - chronic, Cough Gastrointestinal: Negative Genitourinary: Negative Positive: Myalgia - bilateral legs Skin: Negative Neurological: Negative Psychological: Normal All Other Systems Reviewed And Are Negative: Yes Physical Exam Vital Signs On Initial Exam: Initial Vitals Temp Pulse Resp BP Pulse Ox 97.8 F 65 16 144/107 100 05/04/17 23:49 05/04/17 23:49 05/04/17 23:49 05/04/17 23:49 05/04/17 23:49 - [place] Coma Scale Coma Scale Total: 15 Diagnostics - Vital Signs Vital Signs Temp Pulse Resp BP Pulse Ox 05/05/17 01:59 16 05/04/17 23:49 97.8 F 65 16 144/107 100 - Laboratory Lab Results: Lab Results 05/05/17 05/05/17 05/05/17 Range/Units 02:05 02:05 02:05 WBC 3.6 (3.5-10.8) 10^3/ul RBC 3.64 L (4.0-5.4) 10^6/ul Hgb 10.5 L (14.0-18.0) g/dl Hct 33 L (42-52) % MCV 91 (80-94) fL MCH 29 (27-31) pg MCHC 32 (31-36) g/dl RDW 19 H (10.5-15) % Plt Count 125 L (150-450) 10^3/ul MPV 9 (7.4-10.4) um3 Neut % (Auto) 57.1 (38-83) % Lymph % (Auto) 20.0 L (25-47) % Rogers % (Auto) 18.9 H (1-9) % Eos % (Auto) 2.6 (0-6) % Baso % (Auto) 1.4 (0-2) % Absolute Neuts (auto) 2.1 (1.5-7.7) 10^3/ul Absolute Lymphs (auto) 0.7 L (1.0-4.8) 10^3/ul Absolute Monos (auto) 0.7 (0-0.8) 10^3/ul Absolute Eos (auto) 0.1 (0-0.6) 10^3/ul Absolute Basos (auto) 0.1 (0-0.2) 10^3/ul Absolute Nucleated RBC 0 10^3/ul Nucleated RBC % 0.1 Sodium 134 (133-145) mmol/L Potassium 4.7 (3.5-5.0) mmol/L Chloride 93 L (101-111) mmol/L Carbon Dioxide 33 H (22-32) mmol/L Anion Gap 8 (2-11) mmol/L BUN 29 H (6-24) mg/dL Creatinine 6.64 H (0.67-1.17) mg/dL Est GFR ( Amer) 10.9 (>60) Est GFR (Non-Af Amer) 8.5 (>60) BUN/Creatinine Ratio 4.4 L (8-20) Glucose 74 (70-100) mg/dL Lactic Acid 0.5 (0.5-2.0) mmol/L Calcium 8.9 (8.6-10.3) mg/dL Total Bilirubin 0.60 (0.2-1.0) mg/dL AST 33 (13-39) U/L ALT 17 (7-52) U/L Alkaline Phosphatase 65 (34-104) U/L Troponin I 0.04 H* (<0.04) ng/mL Total Protein 8.4 (6.4-8.9) g/dL Albumin 4.1 (3.2-5.2) g/dL Globulin 4.3 H (2-4) g/dL Albumin/Globulin Ratio 1.0 (1-3) Result Diagrams: 05/05/17 02:05 05/05/17 02:05 Lab Statement: Any lab studies that have been ordered have been reviewed, and results considered in the medical decision making process. - Radiology CXR Xray Interpretation: No Acute Changes - IMPRESSION: SMALL BILATERAL PLEURAL EFFUSIONS AND BIBASILAR INFILTRATES, UNCHANGED. Radiology Interpretation Completed By: ED Physician - EKG 0004. Cardiac Rate: NL - 68bpm EKG Rhythm: Sinus Rhythm ST Segment: Non-Specific - T waves EKG Comparison: No Significant Change - compared to 04/27/17 Chest Pain Course/Dx - Course Course Of Treatment: pt seen earlier today with cp came into the ED again tonight for the same, labs are unchanged and pt is ready to go home - Diagnoses Provider Diagnoses: Chest pain Discharge - Discharge Plan Condition: Stable Disposition: HOME Patient Education Materials: Chest Pain (ED) Referrals: Marielena Vargas MD [Primary Care Provider] - 1 Day The documentation as recorded by the Harrison casey Benjamin accurately reflects the service I personally performed and the decisions made by me, Annie Boyd MD.
[2017-05-05 03:53] VITALS: BP 184/100
--- NOTE | 2017-05-05 07:55 | RAD ---
INDICATION: Chest pain. COMPARISON: Comparison is made with prior study from May 04, 2017. TECHNIQUE: A portable view of the chest was obtained. FINDINGS: The patient is status post sternotomy. The heart is mildly enlarged and unchanged. There is a transvenous pacemaker present. There is a central venous catheter present on the right side. There are small bilateral pleural effusions and bibasilar infiltrates which appear unchanged. IMPRESSION: SMALL BILATERAL PLEURAL EFFUSIONS AND BIBASILAR INFILTRATES, UNCHANGED.
== END 2017-05-05 03:45 | disposition home or self-care (01) ==
LOC: ED 23:39
DX: R78.9 Finding of unspecified substance, not normally found in blood (principal); Z88.6 Allergy status to analgesic agent; Z88.5 Allergy status to narcotic agent; I25.119 Atherosclerotic heart disease of native coronary artery with unspecified angina pectoris; I10 Essential (primary) hypertension; Z95.1 Presence of aortocoronary bypass graft; Z95.810 Presence of automatic (implantable) cardiac defibrillator; I50.9 Heart failure, unspecified; J44.9 Chronic obstructive pulmonary disease, unspecified; N18.6 End stage renal disease; Z99.2 Dependence on renal dialysis; G43.909 Migraine, unspecified, not intractable, without status migrainosus; F32.9 Major depressive disorder, single episode, unspecified; F12.90 Cannabis use, unspecified, uncomplicated; Z87.891 Personal history of nicotine dependence
CPT/HCPCS: 36415; 71010; 80053; 83605; 84484; 85025; 96374; 96375; 99283; J2270; J2405

== ENCOUNTER 2017-05-07 17:42 | Observation (INO) | payer MEDICARE, MEDICAID ==
[2017-05-07] MEDS ORDERED: Aspirin Low Dose CHEW TAB* 81 MG PO ONE (19:35)
[2017-05-07] MEDS ORDERED: cloNIDine TAB* 0.1 MG PO ONE (20:09)
[2017-05-07] MEDS ORDERED: Metolazone TAB* 5 MG PO ONE (20:11)
[2017-05-07] MEDS ORDERED: Furosemide IV* 10 MG/ML 10 ML VIAL (100 MG) IV ONE (20:11)
--- NOTE | 2017-05-07 20:15 | RAD ---
HISTORY: Shortness of breath COMPARISONS: May 05, 2017 VIEWS:1: Single frontal portable view of the chest at 8:04 PM FINDINGS: LINES AND TUBES: A left-sided pacemaker is noted. A right internal jugular venous catheter is noted with the tip overlying the cavoatrial junction. CARDIOMEDIASTINAL SILHOUETTE: The cardiac silhouette is enlarged. The cardiomediastinal silhouette is otherwise normal for portable technique. PLEURA: There are small bilateral pleural effusions. LUNG PARENCHYMA: There is patchy alveolar opacification of the lung bases bilaterally. ABDOMEN: The upper abdomen is clear. There is no subphrenic gas. BONES AND SOFT TISSUES: No bone or soft tissue abnormalities are noted. IMPRESSION: 1. LINES AND TUBES ABOVE. 2. CARDIOMEGALY. 3. SMALL BILATERAL PLEURAL EFFUSIONS. ALLOWING 4. PERSISTENT BASILAR ATELECTASIS VERSUS CONSOLIDATION
[2017-05-07 20:21] LABS: Hematocrit 35 % (42-52); Hemoglobin 11.3 g/dl (14.0-18.0); Mean Corpuscular HGB Conc 32 g/dl (31-36); Mean Corpuscular Hemoglobin 30 pg (27-31); Mean Corpuscular Volume 92 fL (80-94); Mean Platelet Volume 9 um3 (7.4-10.4); Red Blood Count 3.82 10^6/ul (4.0-5.4); Red Cell Distribution Width 19 % (10.5-15); White Blood Count 4.1 10^3/ul (3.5-10.8)
[2017-05-07 20:37] LABS: Albumin 4.5 g/dL (3.2-5.2); BUN/Creatinine Ratio 5.3 (8-20); Calcium 8.6 mg/dL (8.6-10.3); EGFR African American 6.6 (>60); EGFR Non-African American 5.1 (>60); Globulin 4.9 g/dL (2-4); Total Bilirubin 0.6 mg/dL (0.2-1.0); Total Protein 9.4 g/dL (6.4-8.9)
[2017-05-07 20:41] LABS: Troponin I 0.04 ng/mL (<0.04)
[2017-05-07] MEDS ORDERED: Sodium Polystyrene ORAL.SOL* 15 GM/60 ML BTL PO ONE (21:00)
[2017-05-07] MEDS ORDERED: Dextrose 50% Syringe 50 ML* 25 GM/50 ML SYRINGE IV PUSH ONE (21:00)
[2017-05-07] MEDS ORDERED: Ondansetron INJ* 2 MG/ML VIAL ONE (21:01)
[2017-05-07] MEDS ORDERED: Insulin REGULAR(*) 1 UNITS UNIT IV PUSH ONE (21:02)
[2017-05-07] MEDS ORDERED: Ondansetron INJ* 2 MG/ML VIAL IV ONE (21:23)
--- NOTE | 2017-05-07 22:12 | ED ---
shruthi Briones Timothy, scribed for ErmelindaNoah on 05/07/17 at 1929 . GI/ HPI - HPI Summary HPI Summary: Pato Templeton is a 66 yo male presenting to [facility] after missing his dialysis appointment on 05/06/[address] appointment, now feeling generally ill with 10/10 pain. He c/o CP, SOB, abd pain, decreased urination. His MHx includes CAD, MVR, IA, CHF, CABG, pacemaker/ICD, HTN, migraine, syncope, COPD, asthma, GERD, PUD, peptic ulcer, appendectomy, renal disease/failure, dialysis, arthritis, sickle cell disease, Hep C, anemia, cirrhosis, MRSA, depression, anxiety, tobacco use. His kidney dotor here is Dr. Dalal. - History of Current Complaint Chief Complaint: EDGeneral Time Seen by Provider: 05/07/17 19:25 Stated Complaint: DIZZINESS,WEAKNESS Hx Obtained From: Patient Onset/Duration: Started Hours Ago, Still Present Timing: Constant Severity: Moderate Current Severity: Moderate Pain Intensity: 10 - Additional Pertinent History Primary Care Physician: YARIEL - Allergy/Home Medications Allergies/Adverse Reactions: Allergies Allergy/AdvReac Type Severity Reaction Status Date / Time Aspirin Allergy Unknown See Comment Verified 03/09/17 14:01 Hydromorphone [From Dilaudid] AdvReac Intermediate Nausea And Verified 03/09/17 14:01 Vomiting PMH/Surg Hx/FS Hx/Imm Hx Endocrine/Hematology History: Reports: Hx Blood Transfusions, Hx Sickle Cell Disease - Was told had sickle cell at one point but denies, Hx Anemia Denies: Hx Anticoagulant Therapy, Hx Bone Marrow Disease, Hx Diabetes, Hx Thyroid Disease Cardiovascular History: Reports: Hx Angina, Hx Auto Implanted Cardiovert Defib, Hx Congestive Heart Failure, Hx Coronary Artery Disease, Hx Hypertension, Hx Pacemaker/ICD, Hx Peripheral Vascular Disease, Hx Syncope, Other Cardiovascular Problems/Disorders - cardiomegaly, mitral valve and tricuspid valve repair Denies: Hx Cardiomegaly, Hx Hypercholesterolemia, Hx Myocardial Infarction, Hx Rheumatic Fever, Hx Valvular Heart Disease Respiratory History: Reports: Hx Asthma, Hx Chronic Obstructive Pulmonary Disease (COPD), Hx Pleural Effusion, Hx Pneumonia, Other Respiratory Problems/ Disorders Denies: Hx Pulmonary Edema, Hx Pulmonary Embolism, Hx Sleep Apnea GI History: Reports: Hx Cirrhosis, Hx Gastroesophageal Reflux Disease, Hx Ulcer - peptic ulcer, Other GI Disorders - hep C Denies: Hx Crohn's Disease, Hx Hiatal Hernia, Hx Irritable Bowel, Hx Jaundice History: Reports: Hx Acute Renal Failure, Hx Chronic Renal Failure, Hx Dialysis, Hx Renal Disease, Other Problems/Disorders - end stage renal disease, on dialysis Denies: Hx Kidney Infection, Hx Kidney Stones Musculoskeletal History: Reports: Hx Arthritis, Hx Back Problems - chronic pain , Hx Orthopedic Injury Denies: Hx Rheumatoid Arthritis, Hx Bursitis, Hx Tendonitis, Other Musculoskeletal History Sensory History: Reports: Hx Contacts or Glasses, Hx Glaucoma, Hx Vision Problem Denies: Hx Cataracts, Hx Hearing Aid Opthamlomology History: Reports: Hx Contacts or Glasses, Hx Glaucoma, Hx Vision Problem Denies: Hx Cataracts Neurological History: Reports: Hx Headaches, Hx Migraine, Other Neuro Impairments/Disorders - depression Denies: Hx Dementia, Hx Seizures Psychiatric History: Reports: Hx Anxiety, Hx Depression Denies: Hx Eating Disorder, Hx Panic Disorder, Hx Suicide Attempt, Hx of Violent Episodes Against Others, Hx Substance Abuse - Cancer History Hx Chemotherapy: No Hx Radiation Therapy: No Hx Palliative Cancer Treatment: No - Surgical History Surgery Procedure, Year, and Place: HERNIA REPAIR 2012. APPENDECTOMY 2000. LEFT ARM AV FISTULA/CAD - REMOVED. CABG 1 vessel, mitral & tricuspid valve repair March 02, 2014 AT [facility] CONDITIONAL 5 UPTO 3T. POWER PORT. Mitral and tricuspid valve repair Hx Anesthesia Reactions: No - Immunization History Date of Tetanus Vaccine: 2014 Date of Influenza Vaccine: Fall 2015 Infectious Disease History: No Infectious Disease History: Reports: Hx Hepatitis - Hep C, Hx of Known/ Suspected MRSA, History Other Infectious Disease - Hepatitis C Denies: Hx Clostridium Difficile, Hx Human Immunodeficiency Virus (HIV), Hx Shingles, Hx Tuberculosis, Hx Known/Suspected VRE, Hx Known/Suspected VRSA, Traveled Outside the [place] in Last 30 Days - Family History Known Family History: Positive: Cardiac Disease, Hypertension, Other - CVA Family History: R & N/C - Social History Alcohol Use: None Alcohol Amount: former EtOH abuse Hx Substance Use: Yes Substance Use Type: Reports: Marijuana Substance Use Comment - Amount & Last Used: today Hx Tobacco Use: Yes Smoking Status (MU): Former Smoker Type: Cigarettes Amount Used/How Often: 1/2 ppd Length of Time of Smoking/Using Tobacco: 10 years Have You Smoked in the Last Year: No Review of Systems Constitutional: Negative Eyes: Negative ENT: Negative Positive: Chest Pain Positive: Shortness Of Breath Positive: Abdominal Pain Positive: other - less volume Musculoskeletal: Negative Skin: Negative Neurological: Negative Psychological: Normal All Other Systems Reviewed And Are Negative: Yes Physical Exam Triage Information Reviewed: Yes Vital Signs On Initial Exam: Initial Vitals Temp Pulse Resp BP Pulse Ox 97.7 F 78 22 196/136 99 05/07/17 18:17 05/07/17 18:17 05/07/17 18:17 05/07/17 18:17 05/07/17 18:17 Vital Signs Reviewed: Yes Appearance: Positive: No Pain Distress, Well-Nourished, Ill-Appearing Skin: Positive: Warm, Skin Color Reflects Adequate Perfusion, Dry, Other - Pt has tessio catheter in right chest, and a shunt in the right arm Head/Face: Positive: Normal Head/Face Inspection Eyes: Positive: EOMI, KINGS ENT: Positive: Normal ENT inspection, Hearing grossly normal. Negative: Muffled /hoarse voice Neck: Positive: Supple, Nontender Respiratory/Lung Sounds: Positive: Clear to Auscultation, Breath Sounds Present Cardiovascular: Positive: RRR, Pulses are Symmetrical in both Upper and Lower Extremities Abdomen Description: Positive: Soft. Negative: Nontender - diffuse Bowel Sounds: Positive: Present Musculoskeletal: Positive: Normal, Strength/ROM Intact Neurological: Positive: Normal, Sensory/Motor Intact, Alert, Oriented to Person Place, Time Psychiatric: Positive: Normal, Affect/Mood Appropriate - Kian Coma Scale Coma Scale Total: 15 Diagnostics - Vital Signs Vital Signs Temp Pulse Resp BP Pulse Ox 05/07/17 18:49 98.3 F 70 16 172/117 100 05/07/17 18:17 97.7 F 78 22 196/136 99 - Laboratory Result Diagrams: 05/07/17 20:10 05/07/17 20:10 Lab Statement: Any lab studies that have been ordered have been reviewed, and results considered in the medical decision making process. - Radiology CXR Xray Interpretation: No Acute Changes - IMPRESSION: 1. LINES AND TUBES ABOVE. 2. CARDIOMEGALY. 3. SMALL BILATERAL PLEURAL EFFUSIONS. ALLOWING 4. PERSISTENT BASILAR ATELECTASIS VERSUS CONSOLIDATION Radiology Interpretation Completed By: Radiologist - EKG 2012 Cardiac Rate: NL - 70 BPM EKG Interpretation: NSR @ 70 BPM, nonspecific T-wave changes. Re-Evaluation - Re-Evaluation First Eval Re-Evaluation Time: 21:04 Change: Unchanged Comment: Discussed lab and imaging results with Pt. He is agreeable to current course of Tx. GIGU Course/Dx - Course Assessment/Plan: Pato Templeton is a 66 yo male [facility] [place] S/P missing his dialysis appointment yesterday for an appointment with a doctor, currently experiencing 10/10 CP, SOB, abd pain, decreased urination. Pt medication list reviewed this visit. CT services were offered, which pt declines. In the ED course he received ASA, lasix, zaroxolyn, catapres. His CXR suggests a left-sided pacemaker and a right internal jugular venous catheter with the tip overlying the cavoatrial junction, cardiomegaly, small bilateral pleural effusions allowing persistent basilar atelectasis versus consolidation. His EKG suggests NSR with nonspecific T-wave changes. After clinical examination and review of his lab and imaging studies, as well as discussion with Dr. Dalal and Dr. Junior, he will be admitted to [facility] [place] with end-stage renal disease, missed dialysis, noncompliance, chest pain, abdominal pain, CHF, uncontrolled HTN, and hyperkalemia for further observatoin , evaluation, and treatment. [id number] - Dr. Junior (hospitalist) - discussed Pt condition, agrees to admit Pt. - Diagnoses Differential Diagnoses - Male: Other - renal disease Provider Diagnoses: End stage renal disease, missed dialysis, Noncompliance, Hyperkalemia, Chest pain, Abdominal pain, CHF (congestive heart failure), Uncontrolled hypertension - Physician Notifications Discussed Care Of Patient With: Jose Eduardo Dalal - Discussed Pt condition. Rec dialysis tomorrow and lasix/catapres/zaroxolyn Time Discussed With Above Provider: 20:10 - Critical Care Time Critical Care Time: 30-74 min - 30 Discharge - Discharge Plan Condition: Stable Disposition: ADMITTED TO [facility] Discharge Disposition Comment: admission to [facility] [place] The documentation as recorded by the shruthi casey Timothy accurately reflects the service I personally performed and the decisions made by me, Noah Wadsworth.
[2017-05-08] MEDS ORDERED: Polyethylene Glycol 3350* 17 GM PACKET PO PRN (01:54)
[2017-05-08] MEDS ORDERED: Acetaminophen TAB* 325 MG PO PRN (01:54)
[2017-05-08] MEDS ORDERED: Albuterol HFA INHALER* 8 gm MDI INH PRN (01:54)
[2017-05-08] MEDS ORDERED: Zolpidem TAB* 10 MG PO PRN (01:54)
[2017-05-08] MEDS ORDERED: LORazepam TAB(*) 0.5 MG PO PRN (01:54)
[2017-05-08] MEDS ORDERED: oxyCODONE TAB* 5 MG TAB PO PRN (01:54)
[2017-05-08] MEDS ORDERED: Morphine INJ* 2 MG/ML 1 ML SYRINGE IV ONE (02:08)
--- NOTE | 2017-05-08 02:11 | HP ---
H&P (Free Text) History and Physical: PCP: Lorena Vargas MD Nephrology: Dariusz Dalal MD Date/Time of Evaluation: 05/08/2017 0140 CC: abdominal pain HPI: Mr Templeton is a 66YO male HX ESRD-HD (MWF), CAD/CABG, cardiomyopathy/AICD, AFIB, PAOD who presents stating that he missed Thursday's dialysis due to being in [place], [place] for "another important appointment" which was cancelled once he arrived. He was in his usual health until yesterday afternoon when he began developing "a little" SOB & epigastric pain for which he presents. He denies N/ V palpitations, sweats, radiation of pain, or other issues. Evaluation reveals volume overload on CXR and a K of 6.0. His injection maintenance technician was consulted and can arrange hemodialysis in the AM. He was given insulin/dextrose & kayexalate in the ED for the hyperKalemia. PMedHx ESRD-HD (MWF) HX thrombosed internal jugular CAD/CABG cardiomyopathy AICD mitral and tricuspid valve repairs AFIB PAOD hepatitis C chronic pain syndrome Ambulatory Orders Nursing to reconcile. Omeprazole CAP* [Prilosec CAP* 20 MG] 40 mg PO BID 07/02/15 Albuterol Sulfate [Proair Respiclick] 2 puff INH Q4HR PRN 07/18/15 Gabapentin CAP(*) [Neurontin 300 CAP(*)] 600 mg PO TID 07/18/15 Pancrelipase (NF) [Creon (NF)] 12,000 units PO .QID AC 08/02/15 Docusate CAP* [Colace Cap*] 100 mg PO DAILY 09/03/15 amLODIPine TAB* [Norvasc 5 mg TAB*] 10 mg PO DAILY 09/03/15 Cinacalcet TAB* [Sensipar TAB*] 30 mg PO DAILY 11/06/15 Escitalopram (NF) [Lexapro 10 mg (NF)] 10 mg PO DAILY 02/20/16 Lisinopril TAB* [Prinivil TAB 10 MG*] 10 mg PO DAILY 04/07/16 Sucroferric Oxyhydroxide [Velphoro] 2,000 mg PO AC 05/27/16 Oxycodone HCl [Oxycodone HCl 15 mg tab] 15 mg PO Q4HR PRN MDD 90 mg 08/03/16 Acetaminophen TAB* [Tylenol TAB*] 650 mg PO Q8HR PRN 12/15/16 B-Complex W/ C & Folic Acid [Nephro-Dameon 0.8 mg] 1 tab PO DAILY 12/15/16 Simvastatin TAB(NF) [Zocor 10 MG (NF)] 10 mg PO DAILY 12/15/16 Sodium Polystyrene Sulfonate [Kionex] 15 gm PO DAILY PRN 12/15/16 diPHENhydraMINE PO* [Benadryl PO 50 MG CAP*] 50 mg PO DAILY PRN 12/15/16 LORazepam TAB(*) [Ativan 1 MG TAB (*)] 0.5 - 1 mg PO BID PRN MDD 2 mg 12/29/16 Zolpidem TAB* [Ambien*] 10 mg PO BEDTIME PRN 01/12/17 traZODone TAB* [Desyrel TAB*] 100 mg PO BEDTIME 01/12/17 Isosorbide Mononitrate ER TAB* [Imdur ER TAB*] 60 mg PO DAILY #30 tab.er hydrALAZINE TAB* [Apresoline TAB*] 50 mg PO TID #180 tab 01/14/17 Carvedilol TAB* [Coreg TAB*] 12.5 mg PO BID WITH MEALS tab 02/25/17 Polyethylene Glycol 3350* [Miralax*] 17 gm PO DAILY PRN #0 packet 02/25/17 Sodium Polystyrene ORAL.MIGUELITO* [Kayexalate ORAL.MIGUELITO*] 15 gm PO SUTUTHSA #1 btl 08/04 Nitroglycerin TAB 0.4 MG* 0.4 mg SL Q5M PRN #15 tab 05/04/17 Allergies Aspirin Allergy (Unknown, Verified 03/09/17 14:01) See Comment Patient states "Ever since I was a boy I was told not to take Aspirin." Hydromorphone [From Dilaudid] Adverse Reaction (Intermediate, Verified 03/09/17 14:01) Nausea And Vomiting SocHx: denies current tobacco, alcohol, or recreational drugs; full code status FamHx: positive for CAD, CVA, HTN ROS: as above, otherwise reviewed and all were negative Constitutional: NAD, normally developed, overweight black male vitals: Vital Signs Temp 36.8 C 05/08/17 02:17 Pulse 64 05/08/17 02:17 Resp 25 05/08/17 02:17 BP 194/122 05/08/17 02:17 Pulse Ox 100 05/08/17 02:17 Intake & Output 05/07/17 05/07/17 05/08/17 11:59 23:59 11:59 Intake Total 50 Balance 50 Weight 74.843 kg 77.474 kg Intake: IV Fluids 50 HEENM: atraumatic; sclera/conjunctiva: non-icteric/clear; hearing: clinically intact; oropharynx: clear, mucosa moist Neck: soft tissue: non-tender; thyroid: normal Pulmonary: clear to auscultation bilaterally, good aeration, no accessory muscle use CV: RR/RR, normal S1S2, no carotid bruit, no femoral bruit, no abdominal bruit, no jugular venous distention, 2+ B DP/PT, no edema Abdominal: soft, non-distended, non-tender, no rebound/guarding/rigidity, normoactive bowel sounds, no hepatosplenomegaly or masses, no costovertebral angle tenderness Musculoskeletal: general: grossly intact, diffusely tender to light palpation throughout torso Integumental: normal appearance and texture of exposed skin Psychiatric orientation: AA&O to PPS affect: calm mood: slightly irritable eye contact: poor content: reliable responses: timely insight: poor Testing: Lab Results 05/07/17 05/07/17 05/07/17 Range/Units 20:10 20:10 20:10 WBC 4.1 (3.5-10.8) 10^3/ul RBC 3.82 L (4.0-5.4) 10^6/ul Hgb 11.3 L (14.0-18.0) g/dl Hct 35 L (42-52) % MCV 92 (80-94) fL MCH 30 (27-31) pg MCHC 32 (31-36) g/dl RDW 19 H (10.5-15) % Plt Count 136 L (150-450) 10^3/ul MPV 9 (7.4-10.4) um3 Neut % (Auto) 71.7 (38-83) % Lymph % (Auto) 14.0 L (25-47) % Benson % (Auto) 12.6 H (1-9) % Eos % (Auto) 0.8 (0-6) % Baso % (Auto) 0.9 (0-2) % Absolute Neuts (auto) 2.9 (1.5-7.7) 10^3/ul Absolute Lymphs (auto) 0.6 L (1.0-4.8) 10^3/ul Absolute Monos (auto) 0.5 (0-0.8) 10^3/ul Absolute Eos (auto) 0 (0-0.6) 10^3/ul Absolute Basos (auto) 0 (0-0.2) 10^3/ul Absolute Nucleated RBC 0 10^3/ul Nucleated RBC % 0.1 INR (Anticoag Therapy) (0.89-1.11) APTT (26.0-36.3) seconds Sodium 137 (133-145) mmol/L Potassium 6.0 H (3.5-5.0) mmol/L Chloride 93 L (101-111) mmol/L Carbon Dioxide 29 (22-32) mmol/L Anion Gap 15 H (2-11) mmol/L BUN 54 H (6-24) mg/dL Creatinine 10.26 H (0.67-1.17) mg/dL Est GFR ( Amer) 6.6 (>60) Est GFR (Non-Af Amer) 5.1 (>60) BUN/Creatinine Ratio 5.3 L (8-20) Glucose 85 (70-100) mg/dL Calcium 8.6 (8.6-10.3) mg/dL Total Bilirubin 0.60 (0.2-1.0) mg/dL AST 30 (13-39) U/L ALT 15 (7-52) U/L Alkaline Phosphatase 71 (34-104) U/L Troponin I 0.04 H* (<0.04) ng/mL B-Natriuretic Peptide 3966 H ( - 100) pg/mL Total Protein 9.4 H (6.4-8.9) g/dL Albumin 4.5 (3.2-5.2) g/dL Globulin 4.9 H (2-4) g/dL Albumin/Globulin Ratio 0.9 L (1-3) //17 Range/Units 20:10 WBC (3.5-10.8) 10^3/ul RBC (4.0-5.4) 10^6/ul Hgb (14.0-18.0) g/dl Hct (42-52) % MCV (80-94) fL MCH (27-31) pg MCHC (31-36) g/dl RDW (10.5-15) % Plt Count (150-450) 10^3/ul MPV (7.4-10.4) um3 Neut % (Auto) (38-83) % Lymph % (Auto) (25-47) % Benson % (Auto) (1-9) % Eos % (Auto) (0-6) % Baso % (Auto) (0-2) % Absolute Neuts (auto) (1.5-7.7) 10^3/ul Absolute Lymphs (auto) (1.0-4.8) 10^3/ul Absolute Monos (auto) (0-0.8) 10^3/ul Absolute Eos (auto) (0-0.6) 10^3/ul Absolute Basos (auto) (0-0.2) 10^3/ul Absolute Nucleated RBC 10^3/ul Nucleated RBC % INR (Anticoag Therapy) 1.38 H (0.89-1.11) APTT 38.5 H (26.0-36.3) seconds Sodium (133-145) mmol/L Potassium (3.5-5.0) mmol/L Chloride (101-111) mmol/L Carbon Dioxide (22-32) mmol/L Anion Gap (2-11) mmol/L BUN (6-24) mg/dL Creatinine (0.67-1.17) mg/dL Est GFR ( Amer) (>60) Est GFR (Non-Af Amer) (>60) BUN/Creatinine Ratio (8-20) Glucose (70-100) mg/dL Calcium (8.6-10.3) mg/dL Total Bilirubin (0.2-1.0) mg/dL AST (13-39) U/L ALT (7-52) U/L Alkaline Phosphatase (34-104) U/L Troponin I (<0.04) ng/mL B-Natriuretic Peptide ( - 100) pg/mL Total Protein (6.4-8.9) g/dL Albumin (3.2-5.2) g/dL Globulin (2-4) g/dL Albumin/Globulin Ratio (1-3) ECG, personally reviewed: NSR rate 70, no ischemia CXR, personally reviewed: IMPRESSION: 1. LINES AND TUBES ABOVE. 2. CARDIOMEGALY. 3. SMALL BILATERAL PLEURAL EFFUSIONS. ALLOWING 4. PERSISTENT BASILAR ATELECTASIS VERSUS CONSOLIDATION Impression: 66M HX ESRD-HD (MWF) in volume overload and hyperKalemia 2nd missed dialysis Thursday DIAGNOSIS & PLAN Primary volume overload and hyperKalemia 2nd missed dialysis : insulin/dextrose & kayexalate given in ED : Dariusz Dalal MD nephrology consulted, will arrange HD in AM : telemetry : supportive care Secondary HX thrombosed internal jugular : no acute issues CAD/CABG : continue meds once reconciled cardiomyopathy AICD : continue meds once reconciled HX mitral and tricuspid valve repairs : no acute issues AFIB : continue meds once reconciled : currently NSR PAOD : continue meds once reconciled hepatitis C : no acute issues chronic pain syndrome : continue meds once reconciled Admission Rational: CDU observation for missed hemodialysis to be scheduled in AM DVTp: heparin SQ Code Status: full
[2017-05-08] MEDS ORDERED: Morphine INJ* 2 MG/ML 1 ML SYRINGE ONE (02:12)
[2017-05-08 06:06] LABS: Hematocrit 33 % (42-52); Hemoglobin 10.5 g/dl (14.0-18.0); Mean Corpuscular HGB Conc 32 g/dl (31-36); Mean Corpuscular Hemoglobin 29 pg (27-31); Mean Corpuscular Volume 92 fL (80-94); Mean Platelet Volume 9 um3 (7.4-10.4); Red Cell Distribution Width 19 % (10.5-15); White Blood Count 4.5 10^3/ul (3.5-10.8)
[2017-05-08 06:22] LABS: BUN/Creatinine Ratio 5.6 (8-20); Blood Urea Nitrogen 62 mg/dL (6-24); CO2 Carbon Dioxide 21 mmol/L (22-32); Calcium 8.1 mg/dL (8.6-10.3); Chloride 95 mmol/L (101-111); EGFR Non-African American 4.7 (>60); Glucose 72 mg/dL (70-100); Sodium 132 mmol/L (133-145)
[2017-05-08 06:26] LABS: Anion Gap 16 mmol/L (2-11)
[2017-05-08] MEDS ORDERED: Pancrelipase CAP* 5,000 UNITS CAP PO SCH (07:30)
[2017-05-08] MEDS ORDERED: Carvedilol TAB* 6.25 MG PO SCH (08:00)
[2017-05-08 08:57] VITALS: BP 174/112
[2017-05-08] MEDS ORDERED: Isosorbide Mononitrate ER TAB* 60 MG PO SCH (09:00)
[2017-05-08] MEDS ORDERED: Atorvastatin* 10 MG TAB PO SCH (09:00)
[2017-05-08] MEDS ORDERED: Lisinopril TAB* 10 MG PO SCH (09:00)
[2017-05-08] MEDS ORDERED: amLODIPine TAB* 5 MG PO SCH (09:00)
[2017-05-08] MEDS ORDERED: Omeprazole CAP* 20 MG PO SCH (09:00)
[2017-05-08] MEDS ORDERED: Citalopram TAB* 20 MG PO SCH (09:00)
[2017-05-08] MEDS ORDERED: Docusate CAP* 100 MG PO SCH (09:00)
[2017-05-08] MEDS ORDERED: hydrALAZINE TAB* 25 MG PO SCH (09:00)
[2017-05-08] MEDS ORDERED: Gabapentin CAP(*) 300 MG PO SCH (09:00)
[2017-05-08] MEDS ORDERED: Cinacalcet TAB* 30 MG PO SCH (09:00)
[2017-05-08 09:57] LABS: Magnesium 2.5 mg/dL (1.9-2.7)
[2017-05-08] MEDS ORDERED: Epoetin Alfa* 2,000 UNITS/ML VIAL IV ONE (11:00)
[2017-05-08] MEDS ORDERED: Heparin DIALYSIS ONLY(*) 1,000 UNITS/ML VIAL DIALYSIS ONE (11:00)
[2017-05-08] MEDS ORDERED: Epoetin Alfa* 10,000 UNITS/ML VIAL IV ONE (11:00)
[2017-05-08 14:30] LABS: BUN/Creatinine Ratio 5.1 (8-20); Calcium 8.7 mg/dL (8.6-10.3); EGFR African American 14.7 (>60); EGFR Non-African American 11.4 (>60); Potassium 3.8 mmol/L (3.5-5.0)
[2017-05-08] MEDS ORDERED: traZODone TAB* 100 MG PO SCH (21:00)
[2017-05-09] MEDS ORDERED: Sodium Polystyrene ORAL.SOL* 15 GM/60 ML BTL PO SCH (01:54)
[2017-05-09] MEDS ORDERED: Heparin VIAL(*) 5000 UNITS/ML VIAL (FIVE THOUSAND) SUBCUT SCH (18:00)
--- NOTE | 2017-05-10 08:20 | PN ---
Hospitalist Progress Note . HOSPITALIST DISCHARGE NOTE: See dc instructions and summary by me. Patient stable for dc dc instructions reviewed with the patient at the bedside. DC patient home today.
--- NOTE | 2017-05-10 16:02 | DS ---
CC: Marielena Vargas MD; Jose Eduardo Dalal MD * DISCHARGE SUMMARY: DATE OF ADMISSION: 05/08/17 DATE OF DISCHARGE: 05/08/17 PRIMARY CARE PROVIDER: Marielena Vargas MD CALL CENTER RECRUITER: Jose Eduardo Dalal MD DISCHARGE DIAGNOSIS: Missed dialysis and subsequent abdominal pain with need for urgent dialysis. DISCHARGE MEDICATION REGIMEN: Unchanged from admission. Please see admission history and physical on 05/08/17. SECONDARY DIAGNOSES: 1. End-stage renal disease - on hemodialysis, Thursday, Thursday, and Thursday. 2. History of thrombosed internal jugular. 3. Coronary disease/coronary artery bypass graft. 4. Cardiomyopathy/automatic implantable cardioverter-defibrillator in situ. 5. Mitral/tricuspid valve repairs. 6. Atrial fibrillation. 7. Peripheral arterial occlusive disease. 8. Hepatitis C. 9. Chronic pain syndrome. HISTORY OF PRESENT ILLNESS/HOSPITAL COURSE: Please see the H and P by Dr. Deandre Junior on 05/08/17. In brief, Mr. Templeton is a 66-year-old man with a past medical history detailed above, who missed his Thursday dialysis secondary to being in [place], [place] for "another appointment." The appointment was reportedly canceled when he arrived. The patient was in his usual state yesterday when he began having "a little" short of breath and epigastric pain, which caused him to come to the hospital. He was found to have a potassium of 6 and volume overload on chest x-ray. The patient was admitted for urgent dialysis as the outpatient unit was unavailable for staffing later in the day when the patient called. The patient received insulin and dextrose and Kayexalate in the emergency room for hyperkalemia. He continued to have abdominal pain. He proceeded with dialysis without difficulty. The patient was briefly monitored on telemetry until proceeding to dialysis. The patient did quite well. He had a repeat blood chemistry following dialysis which demonstrated a potassium decrease from 6.5 down to 3.8. His other values were consistent with post dialysis chemistries in an end- stage renal patient. The patient left the dialysis unit without receiving his discharge paper work which is consistent with his noncompliance and disruptive behavior in previous hospitalizations. There was a discharge order in and there were not any intended medication changes, so no harm was done ; however, the patient does seem to have a difficult time behaving compatibly with the healthcare system. TIME SPENT: Total time taken to discharge Mr. Templeton was 20 minutes with that time arranging his discharge paper work, though [id number] instructions were not given because of the patient's abscondence. CONDITION AT DISCHARGE: Stable. [id number]/[facility] #: [id number] MTDD
== END 2017-05-08 14:15 | disposition home or self-care (01) ==
LOC: ED 17:42 → MEDTELE 05-08 01:46
PROVIDERS: ADMIT Hospitalist; ATTEND Internal Medicine
DX: E87.79 Other fluid overload (principal); E87.5 Hyperkalemia; R06.02 Shortness of breath; R10.9 Unspecified abdominal pain; N18.6 End stage renal disease; I25.10 Atherosclerotic heart disease of native coronary artery without angina pectoris; Z95.1 Presence of aortocoronary bypass graft; J90 Pleural effusion, not elsewhere classified; J98.11 Atelectasis; I42.9 Cardiomyopathy, unspecified; Z95.810 Presence of automatic (implantable) cardiac defibrillator; I48.91 Unspecified atrial fibrillation; G89.4 Chronic pain syndrome; Z79.899 Other long term (current) drug therapy; I73.89 Other specified peripheral vascular diseases; B19.20 Unspecified viral hepatitis C without hepatic coma; Z99.2 Dependence on renal dialysis
CPT/HCPCS: 36415; 71010; 80048; 80053; 83735; 83880; 84100; 84484; 85025; 85027; 85610; 85730; 93005; 96365; 96375; 99291; A9270-GY; G0378; J0885; J1644; J1940; J2270; J2405

== ENCOUNTER 2017-05-13 00:05 | Emergency (ER) | payer MEDICARE, MEDICAID ==
[2017-05-13] MEDS ORDERED: oxyCODONE TAB* 5 MG TAB PO ONE ×2 (01:46→03:49)
[2017-05-13] MEDS ORDERED: Ondansetron ODT TAB* 4 MG PO ONE (01:57)
[2017-05-13 02:26] LABS: Hematocrit 34 % (42-52); Hemoglobin 11.1 g/dl (14.0-18.0); Mean Corpuscular HGB Conc 32 g/dl (31-36); Mean Corpuscular Hemoglobin 29 pg (27-31); Mean Corpuscular Volume 90 fL (80-94); Mean Platelet Volume 8 um3 (7.4-10.4); Red Cell Distribution Width 18 % (10.5-15); White Blood Count 4.8 10^3/ul (3.5-10.8)
[2017-05-13 02:44] LABS: BUN/Creatinine Ratio 3.7 (8-20); Calcium 8.4 mg/dL (8.6-10.3); EGFR African American 8.3 (>60); EGFR Non-African American 6.5 (>60); Globulin 4.5 g/dL (2-4); Potassium 4.5 mmol/L (3.5-5.0); Total Bilirubin 0.5 mg/dL (0.2-1.0); Total Protein 8.5 g/dL (6.4-8.9)
[2017-05-13 02:49] LABS: Troponin I 0.05 ng/mL (<0.04)
[2017-05-13 03:21] VITALS: BP 154/114
--- NOTE | 2017-05-13 03:58 | ED ---
Irineo Briones Rebecca, scribed for Keegan Burden MD on 05/13/17 at 0139 . HPI Chest Pain - HPI Summary HPI Summary: Pt is a 66 y/o M BIBA who presents to ED c/o CP. Pain began suddenly at 2100 while laying down and has been constant since onset. Pain is in the midsternal region without radiation and is currently severe, ranked 10/10. Sx aggravated and alleviated by nothing. Additionally c/o dizziness and nausea. Denies abd pain, vomiting and edema. Has dialysis scheduled for this morning. Undergoes dialysis every MWF. No PMHx ID. Is not on blood thinners - was previously on Coumadin but that has ceased. - History of Current Complaint Chief Complaint: EDChestPainROMI Time Seen by Provider: 05/13/17 01:20 Hx Obtained From: Patient Onset/Duration: Started Hours Ago, Still Present Time of Onset: 21:00 Timing: Constant Current Severity: Severe Pain Intensity: 10 Pain Scale Used: 0-10 Numeric Chest Pain Location: Mid Sternal Chest Pain Radiates: No Aggravating Factor(s): Nothing Alleviating Factor(s): Nothing Associated Signs and Symptoms: Positive: Dizziness, Nausea. Negative: Abdominal Pain, Vomiting, Edema - Additional Pertinent History Primary Care Physician: YARIEL - Allergy/Home Medications Allergies/Adverse Reactions: Allergies Allergy/AdvReac Type Severity Reaction Status Date / Time Aspirin Allergy Unknown See Comment Verified 03/09/17 14:01 Hydromorphone [From Dilaudid] AdvReac Intermediate Nausea And Verified 03/09/17 14:01 Vomiting PMH/Surg Hx/FS Hx/Imm Hx Endocrine/Hematology History: Reports: Hx Blood Transfusions, Hx Sickle Cell Disease - Was told had sickle cell at one point but denies, Hx Anemia Denies: Hx Anticoagulant Therapy, Hx Bone Marrow Disease, Hx Diabetes, Hx Thyroid Disease Cardiovascular History: Reports: Hx Angina, Hx Auto Implanted Cardiovert Defib, Hx Congestive Heart Failure, Hx Coronary Artery Disease, Hx Hypertension, Hx Pacemaker/ICD, Hx Peripheral Vascular Disease, Hx Syncope, Other Cardiovascular Problems/Disorders - cardiomegaly, mitral valve and tricuspid valve repair Denies: Hx Cardiomegaly, Hx Hypercholesterolemia, Hx Myocardial Infarction, Hx Rheumatic Fever, Hx Valvular Heart Disease Respiratory History: Reports: Hx Asthma, Hx Chronic Obstructive Pulmonary Disease (COPD), Hx Pleural Effusion, Hx Pneumonia, Other Respiratory Problems/ Disorders Denies: Hx Pulmonary Edema, Hx Pulmonary Embolism, Hx Sleep Apnea GI History: Reports: Hx Cirrhosis, Hx Gastroesophageal Reflux Disease, Hx Ulcer - peptic ulcer, Other GI Disorders - hep C Denies: Hx Crohn's Disease, Hx Hiatal Hernia, Hx Irritable Bowel, Hx Jaundice History: Reports: Hx Acute Renal Failure, Hx Chronic Renal Failure, Hx Dialysis, Hx Renal Disease, Other Problems/Disorders - end stage renal disease, on dialysis Denies: Hx Kidney Infection, Hx Kidney Stones Musculoskeletal History: Reports: Hx Arthritis, Hx Back Problems - chronic pain , Hx Orthopedic Injury Denies: Hx Rheumatoid Arthritis, Hx Bursitis, Hx Tendonitis, Other Musculoskeletal History Sensory History: Reports: Hx Contacts or Glasses, Hx Glaucoma, Hx Vision Problem Denies: Hx Cataracts, Hx Hearing Aid Opthamlomology History: Reports: Hx Contacts or Glasses, Hx Glaucoma, Hx Vision Problem Denies: Hx Cataracts Neurological History: Reports: Hx Headaches, Hx Migraine, Other Neuro Impairments/Disorders - depression Denies: Hx Dementia, Hx Seizures Psychiatric History: Reports: Hx Anxiety, Hx Depression Denies: Hx Eating Disorder, Hx Panic Disorder, Hx Suicide Attempt, Hx of Violent Episodes Against Others, Hx Substance Abuse - Cancer History Hx Chemotherapy: No Hx Radiation Therapy: No Hx Palliative Cancer Treatment: No - Surgical History Surgery Procedure, Year, and Place: HERNIA REPAIR 2012. APPENDECTOMY 2000. LEFT ARM AV FISTULA/CAD - REMOVED. CABG 1 vessel, mitral & tricuspid valve repair March 02, 2014 AT [facility] CONDITIONAL 5 UPTO 3T. POWER PORT. Mitral and tricuspid valve repair Hx Anesthesia Reactions: No - Immunization History Date of Tetanus Vaccine: 2014 Date of Influenza Vaccine: Fall 2015 Infectious Disease History: Yes Infectious Disease History: Reports: Hx Hepatitis - Hep C, Hx of Known/ Suspected MRSA, History Other Infectious Disease - Hepatitis C Denies: Hx Clostridium Difficile, Hx Human Immunodeficiency Virus (HIV), Hx Shingles, Hx Tuberculosis, Hx Known/Suspected VRE, Hx Known/Suspected VRSA, Traveled Outside the [place] in Last 30 Days - Family History Known Family History: Positive: Cardiac Disease, Hypertension, Other - CVA Family History: R & N/C - Social History Alcohol Use: None Alcohol Amount: former EtOH abuse Hx Substance Use: Yes Substance Use Type: Reports: Marijuana Substance Use Comment - Amount & Last Used: today Hx Tobacco Use: Yes Smoking Status (MU): Former Smoker Type: Cigarettes Amount Used/How Often: 1/2 ppd Length of Time of Smoking/Using Tobacco: 10 years Have You Smoked in the Last Year: No Review of Systems Positive: Chest Pain Positive: Nausea. Negative: Abdominal Pain, Vomiting Negative: Edema Neurological: Other - Dizziness All Other Systems Reviewed And Are Negative: Yes Physical Exam - Summary Physical Exam Summary: The patient is well-nourished in no acute distress and in no acute pain. He is asleep and difficult to keep awake. The skin is warm and dry and skin color reflects adequate perfusion. HEENT: The head is normocephalic and atraumatic. The pupils are equal and reactive. The conjunctivae are clear and without drainage. Nares are patent and without drainage. Mouth reveals moist mucous membranes and the throat is without erythema and exudate. The external ears are intact. The ear canals are patent and without drainage. The tympanic membranes are intact. Neck is supple with full range of motion and non-tender. There are no carotid bruits. There is no neck vein distension. Respiratory: Reproducible anterior chest wall pain. Lungs are clear to auscultation and breath sounds are symmetrical and equal. Cardiovascular: Hear is regular rate and rhythm. There is no murmur or rub auscultated. Pulses are symmetrical and equal. Abdomen: The abdomen is soft and non-tender. There are normal bowel sounds heard in all four quadrants and there is no organomegaly palpated. Neurological: Patient is alert and oriented to person, place and time. The patient has symmetrical motor strength in all four extremities. Psychiatric: The patient has an appropriate affect and does not exhibit any anxiety or depression. Triage Information Reviewed: Yes Vital Signs On Initial Exam: Initial Vitals Temp Pulse Resp BP Pulse Ox 98.3 F 75 16 151/96 100 05/13/17 00:14 05/13/17 00:14 05/13/17 00:14 05/13/17 00:14 05/13/17 00:14 Vital Signs Reviewed: Yes - Metz Coma Scale Coma Scale Total: 15 Diagnostics - Vital Signs Vital Signs Temp Pulse Resp BP Pulse Ox 05/13/17 01:00 70 15 136/105 100 05/13/17 00:30 73 17 156/99 100 05/13/17 00:27 74 18 99 05/13/17 00:26 162/107 05/13/17 00:14 98.3 F 75 16 151/96 100 - Laboratory Lab Results: Lab Results 05/13/17 05/13/17 Range/Units 02:10 02:10 WBC 4.8 (3.5-10.8) 10^3/ul RBC 3.80 L (4.0-5.4) 10^6/ul Hgb 11.1 L (14.0-18.0) g/dl Hct 34 L (42-52) % MCV 90 (80-94) fL MCH 29 (27-31) pg MCHC 32 (31-36) g/dl RDW 18 H (10.5-15) % Plt Count 140 L (150-450) 10^3/ul MPV 8 (7.4-10.4) um3 Neut % (Auto) 67.5 (38-83) % Lymph % (Auto) 16.3 L (25-47) % [place] % (Auto) 13.7 H (1-9) % Eos % (Auto) 1.2 (0-6) % Baso % (Auto) 1.3 (0-2) % Absolute Neuts (auto) 3.2 (1.5-7.7) 10^3/ul Absolute Lymphs (auto) 0.8 L (1.0-4.8) 10^3/ul Absolute Monos (auto) 0.7 (0-0.8) 10^3/ul Absolute Eos (auto) 0.1 (0-0.6) 10^3/ul Absolute Basos (auto) 0.1 (0-0.2) 10^3/ul Absolute Nucleated RBC 0.01 10^3/ul Nucleated RBC % 0.1 Sodium 135 (133-145) mmol/L Potassium 4.5 (3.5-5.0) mmol/L Chloride 94 L (101-111) mmol/L Carbon Dioxide 33 H (22-32) mmol/L Anion Gap 8 (2-11) mmol/L BUN 31 H (6-24) mg/dL Creatinine 8.39 H (0.67-1.17) mg/dL Est GFR ( Amer) 8.3 (>60) Est GFR (Non-Af Amer) 6.5 (>60) BUN/Creatinine Ratio 3.7 L (8-20) Glucose 100 (70-100) mg/dL Calcium 8.4 L (8.6-10.3) mg/dL Total Bilirubin 0.50 (0.2-1.0) mg/dL AST 33 (13-39) U/L ALT 17 (7-52) U/L Alkaline Phosphatase 68 (34-104) U/L Troponin I 0.05 H* (<0.04) ng/mL Total Protein 8.5 (6.4-8.9) g/dL Albumin 4.0 (3.2-5.2) g/dL Globulin 4.5 H (2-4) g/dL Albumin/Globulin Ratio 0.9 L (1-3) Result Diagrams: 05/13/17 02:10 05/13/17 02:10 Lab Statement: Any lab studies that have been ordered have been reviewed, and results considered in the medical decision making process. - EKG 0019 Cardiac Rate: NL - [address] Segment: Non-Specific - Non-Specific ST changes EKG Interpretation: Poor R wave progression, prolonged QT interval, no STEMI Re-Evaluation - Re-Evaluation First Eval Re-Evaluation Time: 03:24 Change: Improved Comment: Pain is improved, but still present. Chest Pain Course/Dx - Course Assessment/Plan: Pt is a 66 y/o M BIBA who presents to ED c/o sudden onset midsternal CP since 2100. Pain is currently severe, ranked 10/10. Additionally c /o dizziness and nausea. Denies abd pain, vomiting and edema. Has dialysis scheduled for this morning. Undergoes dialysis every MWF. No PMHx ID. Is not on blood thinners - was previously on Coumadin but that has ceased. EKG reveals no STEMI. Troponin of 0.05 which is consistent with previous visits. In the ED course, pt was administered Roxycodone and Zofran PO which improved sx. He will be D/C to home with Dx of chest pain and renal failure. He understands and agrees. - Chest Pain Differential Diagnosis/HQI/PQRI: Acute ID, Chest Wall - Diagnoses Provider Diagnoses: Chest pain, Renal failure Discharge - Discharge Plan Condition: Stable Disposition: HOME Patient Education Materials: Chest Pain (ED), End Stage Kidney Disease (ED) Referrals: Marielena Vargas MD [Primary Care Provider] - 3 Days The documentation as recorded by the Irineo casey Rebecca accurately reflects the service I personally performed and the decisions made by me, Keegan Burden MD.
== END 2017-05-13 04:10 | disposition home or self-care (01) ==
LOC: ED 00:05
DX: N19 Unspecified kidney failure (principal); R11.0 Nausea; R42 Dizziness and giddiness; R07.9 Chest pain, unspecified
CPT/HCPCS: 36415; 80053; 84484; 85025; 93005; 99284; A9270-GY

== ENCOUNTER 2017-06-24 23:43 | Emergency (ER) | payer MEDICARE, MEDICAID ==
[2017-06-25] MEDS ORDERED: Ondansetron INJ* 2 MG/ML VIAL IV ONE (01:18)
[2017-06-25] MEDS ORDERED: Morphine INJ* 4 MG/ML 1 ML SYRINGE IV ONE (01:18)
[2017-06-25 01:57] LABS: Hematocrit 31 % (42-52); Hemoglobin 9.7 g/dl (14.0-18.0); Mean Corpuscular HGB Conc 32 g/dl (31-36); Mean Corpuscular Hemoglobin 28 pg (27-31); Mean Corpuscular Volume 89 fL (80-94); Mean Platelet Volume 8 um3 (7.4-10.4); Red Blood Count 3.45 10^6/ul (4.0-5.4); Red Cell Distribution Width 18 % (10.5-15); White Blood Count 4.5 10^3/ul (3.5-10.8)
[2017-06-25 02:12] LABS: Albumin 4.5 g/dL (3.2-5.2); BUN/Creatinine Ratio 4.5 (8-20); Calcium 9.5 mg/dL (8.6-10.3); EGFR African American 11.1 (>60); EGFR Non-African American 8.7 (>60); Globulin 4.7 g/dL (2-4); Total Bilirubin 0.7 mg/dL (0.2-1.0); Total Protein 9.2 g/dL (6.4-8.9)
[2017-06-25 02:18] LABS: Troponin I 0.07 ng/mL (<0.04)
[2017-06-25] MEDS ORDERED: Sodium Polystyrene ORAL.SOL* 15 GM/60 ML BTL PO ONE (02:19)
--- NOTE | 2017-06-25 03:40 | ED ---
Irineo Briones Rebecca, scribed for Alisha Wadsworthuel on 06/25/17 at 0059 . HPI Chest Pain - HPI Summary HPI Summary: Pt is a 66 y/o M BIBA who presents to ED c/o CP and diffuse abdominal pain. Pain began today at approximately 2000 and has been constant since onset. Pain is currently severe, ranked 10/10. Sx aggravated and alleviated by nothing. Additionally c/o nausea. Denies edema. Pt is on dialysis with his last treatment being earlier today. No PMHx CA. Uses O2 at home and has not had a recent stress test. - History of Current Complaint Chief Complaint: EDChestPainROMI Time Seen by Provider: 06/25/17 00:38 Hx Obtained From: Patient Onset/Duration: Started Hours Ago, Still Present Current Severity: Severe Pain Intensity: 10 Pain Scale Used: 0-10 Numeric Aggravating Factor(s): Nothing Alleviating Factor(s): Nothing Associated Signs and Symptoms: Positive: Chest Pain, Nausea, Abdominal Pain - Additional Pertinent History Primary Care Physician: YARIEL - Allergy/Home Medications Allergies/Adverse Reactions: Allergies Allergy/AdvReac Type Severity Reaction Status Date / Time Aspirin Allergy Unknown See Comment Verified 03/09/17 14:01 Hydromorphone [From Dilaudid] AdvReac Intermediate Nausea And Verified 03/09/17 14:01 Vomiting PMH/Surg Hx/FS Hx/Imm Hx Endocrine/Hematology History: Reports: Hx Blood Transfusions, Hx Sickle Cell Disease - Was told had sickle cell at one point but denies, Hx Anemia Denies: Hx Anticoagulant Therapy, Hx Bone Marrow Disease, Hx Diabetes, Hx Thyroid Disease Cardiovascular History: Reports: Hx Angina, Hx Auto Implanted Cardiovert Defib, Hx Congestive Heart Failure, Hx Coronary Artery Disease, Hx Hypertension, Hx Pacemaker/ICD, Hx Peripheral Vascular Disease, Hx Syncope, Other Cardiovascular Problems/Disorders - cardiomegaly, mitral valve and tricuspid valve repair Denies: Hx Cardiomegaly, Hx Hypercholesterolemia, Hx Myocardial Infarction, Hx Rheumatic Fever, Hx Valvular Heart Disease Respiratory History: Reports: Hx Asthma, Hx Chronic Obstructive Pulmonary Disease (COPD), Hx Pleural Effusion, Hx Pneumonia, Other Respiratory Problems/ Disorders Denies: Hx Pulmonary Edema, Hx Pulmonary Embolism, Hx Sleep Apnea GI History: Reports: Hx Cirrhosis, Hx Gastroesophageal Reflux Disease, Hx Ulcer - peptic ulcer, Other GI Disorders - hep C Denies: Hx Crohn's Disease, Hx Hiatal Hernia, Hx Irritable Bowel, Hx Jaundice History: Reports: Hx Acute Renal Failure, Hx Chronic Renal Failure, Hx Dialysis, Hx Renal Disease, Other Problems/Disorders - end stage renal disease, on dialysis Denies: Hx Kidney Infection, Hx Kidney Stones Musculoskeletal History: Reports: Hx Arthritis, Hx Back Problems - chronic pain , Hx Orthopedic Injury Denies: Hx Rheumatoid Arthritis, Hx Bursitis, Hx Tendonitis, Other Musculoskeletal History Sensory History: Reports: Hx Contacts or Glasses, Hx Glaucoma, Hx Vision Problem Denies: Hx Cataracts, Hx Hearing Aid Opthamlomology History: Reports: Hx Contacts or Glasses, Hx Glaucoma, Hx Vision Problem Denies: Hx Cataracts Neurological History: Reports: Hx Headaches, Hx Migraine, Other Neuro Impairments/Disorders - depression Denies: Hx Dementia, Hx Seizures Psychiatric History: Reports: Hx Anxiety, Hx Depression Denies: Hx Eating Disorder, Hx Panic Disorder, Hx Suicide Attempt, Hx of Violent Episodes Against Others, Hx Substance Abuse - Cancer History Hx Chemotherapy: No Hx Radiation Therapy: No Hx Palliative Cancer Treatment: No - Surgical History Surgery Procedure, Year, and Place: HERNIA REPAIR 2012. APPENDECTOMY 2000. LEFT ARM AV FISTULA/CAD - REMOVED. CABG 1 vessel, mitral & tricuspid valve repair March 02, 2014 AT [facility] CONDITIONAL 5 UPTO 3T. POWER PORT. Mitral and tricuspid valve repair Hx Anesthesia Reactions: No - Immunization History Date of Tetanus Vaccine: 2014 Date of Influenza Vaccine: Fall 2015 Infectious Disease History: No Infectious Disease History: Reports: Hx Hepatitis - Hep C, Hx of Known/ Suspected MRSA, History Other Infectious Disease - Hepatitis C Denies: Hx Clostridium Difficile, Hx Human Immunodeficiency Virus (HIV), Hx Shingles, Hx Tuberculosis, Hx Known/Suspected VRE, Hx Known/Suspected VRSA, Traveled Outside the [place] in Last 30 Days - Family History Known Family History: Positive: Cardiac Disease, Hypertension, Other - CVA - Social History Alcohol Use: None Alcohol Amount: former EtOH abuse Hx Substance Use: Yes Substance Use Type: Reports: Marijuana Substance Use Comment - Amount & Last Used: today Hx Tobacco Use: Yes Smoking Status (MU): Former Smoker Type: Cigarettes Amount Used/How Often: 1/2 ppd Length of Time of Smoking/Using Tobacco: 10 years Have You Smoked in the Last Year: No Review of Systems Positive: Chest Pain Positive: Abdominal Pain, Nausea Negative: Edema All Other Systems Reviewed And Are Negative: Yes Physical Exam - Summary Physical Exam Summary: Appearance: Well appearing, no pain distress Skin: warm, dry, reflects adequate perfusion Head/face: normal Eyes: EOMI, KINGS ENT: normal Neck: supple, nontender Respiratory: CTA, breath sounds present Cardiovascular: RRR, pulses symmetrical, pacemaker Abdomen: diffuse abdominal tenderness, soft, tesio catheter on the R side Bowel: present Musculoskeletal: normal, strength/ROM intact Neuro: normal, sensory motor intact, A&Ox3 Triage Information Reviewed: Yes Vital Signs On Initial Exam: Initial Vitals Pulse Resp Pulse Ox 81 18 98 06/24/17 23:51 06/24/17 23:51 06/24/17 23:51 Vital Signs Reviewed: Yes - [place] Coma Scale Coma Scale Total: 15 Diagnostics - Vital Signs Vital Signs Temp Pulse Resp BP Pulse Ox 06/25/17 00:00 81 20 98 06/24/17 23:54 98.9 F 80 20 187/116 98 06/24/17 23:53 82 15 164/144 98 06/24/17 23:51 81 18 98 - Laboratory Result Diagrams: 06/25/17 01:45 06/25/17 01:45 Lab Statement: Any lab studies that have been ordered have been reviewed, and results considered in the medical decision making process. - Radiology CXR Xray Interpretation: No Acute Changes Radiology Interpretation Completed By: ED Physician - EKG 2349 Cardiac Rate: NL - 82 bpm EKG Rhythm: Sinus Rhythm EKG Interpretation: T wave inversions in lead 1 and aVL Chest Pain Course/Dx - Course Assessment/Plan: Pt is a 66 y/o M BIBA who presents to ED c/o CP and diffuse abdominal pain. Pain began today at approximately 2000 and has been constant since onset. Pain is currently severe, ranked 10/10. Sx aggravated and alleviated by nothing. Additionally c/o nausea. Denies edema. Pt is on dialysis with his last treatment being earlier today. No PMHx CA. Uses O2 at home and has not had a recent stress test. Blood work was done. EKG is sinus rhythm with T wave inversions in lead 1 and aVL. CXR is negative as read by ED physician. Lab work was done. Pt refuses CT Abd/Pel. Discussed care of pt with Dr. Erwin Alejandra who accepts pt for admission. He will be admitted with Dx of CP r/o CA, end stage renal disease on hemodialysis, hyperkalemia, elevated troponin. Upon hospitalist evaluation with the pt, he refuses to be admitted and wants to sign out AMA. The risks were explicitly explained to the pt but he continues to want to sign out AMA. - Diagnoses Provider Diagnoses: Chest pain, rule out acute myocardial infarction, End-stage renal disease on hemodialysis, Hyperkalemia, Elevated troponin - Provider Notifications Discussed Care Of Patient With: Erwin Alejandra Time Discussed With Above Provider: 02:45 Instructed by Provider To: Other - Accepts pt for admission. Discharge - Discharge Plan Condition: Fair Disposition: ADMITTED TO [facility] Referrals: Marielena Vargas MD [Primary Care Provider] - The documentation as recorded by the Irineo casey Rebecca accurately reflects the service I personally performed and the decisions made by , Noah Wadsworth.
[2017-06-25 03:54] VITALS: BP 189/134
--- NOTE | 2017-06-25 05:00 | CONS ---
CC: Dr. Vargas * CONSULTATION REPORT: DATE OF CONSULT: 06/25/17 PRIMARY CARE PROVIDER: Dr. Marielena Vargas. SERVICE REQUESTING CONSULT: Emergency room. REASON FOR CONSULT: Chest pain and hyperkalemia. HISTORY OF PRESENT ILLNESS: This 66-year-old man with complicated past medical history including end-stage renal disease, on hemodialysis, Thursday, Thursday, and Thursday; history of thrombosed internal jugular artery; history of CAD, status post CABG; cardiomyopathy, with ICD in place; mitral and tricuspid valve repair; AFib, peripheral artery disease; hepatitis C; chronic pain, who has been in his usual state of health, presented to the hospital after he developed chest pain at approximately 10 a.m. this morning after finding out that his son was hospitalized in [place]. He also indicated that he is having abdominal pain , which was noted to be a chronic problem for him. The pain continued throughout the day, throughout dialysis, which he did attend to today. For dinner, he had pasta which he said he knows he was not supposed to have. When he presented to the emergency room, he was found to have a potassium of 6.0 despite recent dialysis. He was seen by this author, I recommended a hospital stay to manage his hyperkalemia as well as further evaluation of his chest pain , although this author does know that he had a stress test in April of 2017. However, upon presentation of this information, Mr. Templeton indicates that he cannot stay in the hospital and has to return home to pay some bills. He reports that these bills are very important and only he can pay them. I indicated leaving the hospital will be against medical advice and he indicates he is going to do that and he is going to come back at noon today. He promised that he is going to come back at noon today, but I did indicate that that is not my intention as he should be monitored until his potassium is in the acceptable limit. His behavior is consistent with the patient's past behavior. Ultimately, the patient says he only came because he wanted the GI cocktail which he cannot buy [id number]. At the time I interviewed the patient, he was chest pain and abdominal pain free. PLAN: Plan will be for admission to the hospital for observation and management of his potassium as well as further evaluation of his chest pain, thought to be low risk in the setting of recent nuclear stress test. However, the patient has made it very clear that he is going to leave against medical advice, so no orders will be placed by this author. It is to note that the patient has already received at least 1 dose of Kayexalate prior to his departure. [id number]/[facility] #: [id number] MTDD
--- NOTE | 2017-06-25 08:02 | RAD ---
Indication: Chest pain. Single frontal view of the chest performed at 0210 hours was reviewed. Comparison is made with previous exam dated May 07, 2017. Cardiomegaly is noted. Patient is status post transsternal thoracotomy. Interstitial edema is improved since previous exam. Pacemaker leads and central line is in place. Right base atelectasis is noted. IMPRESSION: CARDIOMEGALY WITH RIGHT BASILAR ATELECTASIS. PACEMAKER LEADS AND CENTRAL LINE IN PLACE.
== END 2017-06-25 03:54 | disposition left against medical advice (07) ==
LOC: ED 23:43
DX: R07.9 Chest pain, unspecified (principal); N28.89 Other specified disorders of kidney and ureter; Z99.2 Dependence on renal dialysis; R11.0 Nausea; R10.9 Unspecified abdominal pain; Z87.891 Personal history of nicotine dependence; E87.5 Hyperkalemia
CPT/HCPCS: 36415; 71010; 80053; 83605; 83690; 83880; 84484; 85025; 85610; 85730; 93005; 99283; A9270-GY; J2270; J2405

== ENCOUNTER 2017-06-29 17:57 | Emergency (ER) | payer MEDICARE, MEDICAID ==
[2017-06-29] MEDS ORDERED: Al Hydrox/Mg Hydrox/Simet LIQ* 30 ML UDC PO ONE (19:23)
[2017-06-29] MEDS ORDERED: Lidocaine 2% VISCOUS* 15 ML UDC PO ONE (19:23)
--- NOTE | 2017-06-29 19:58 | RAD ---
INDICATION: Short of breath COMPARISON: June 25, 2017 TECHNIQUE: An AP portable view obtained at 1951 hours is submitted. FINDINGS: Bones/Soft Tissues: There are no acute bony findings. There is sternotomy. There is left-sided cardiac pacemaker. There is valvular surgery. There is a right-sided central venous catheter. These findings are stable Cardiomediastinal: The cardiac silhouette is top normal in size. There is mild interstitial congestion. Lungs: Mild bibasilar infiltrative change. The findings are essentially stable. Pleura: Small bilateral pleural effusions. Other: None IMPRESSION: POSTOPERATIVE CHANGES. MILD THORACIC CONGESTION SMALL BILATERAL PLEURAL EFFUSIONS.
[2017-06-29 20:04] LABS: Hematocrit 30 % (42-52); Hemoglobin 9.7 g/dl (14.0-18.0); Mean Corpuscular HGB Conc 33 g/dl (31-36); Mean Corpuscular Hemoglobin 29 pg (27-31); Mean Corpuscular Volume 89 fL (80-94); Mean Platelet Volume 8 um3 (7.4-10.4); Red Blood Count 3.32 10^6/ul (4.0-5.4); Red Cell Distribution Width 18 % (10.5-15); White Blood Count 4.2 10^3/ul (3.5-10.8)
[2017-06-29 20:07] LABS: Albumin 4.3 g/dL (3.2-5.2); Calcium 9.7 mg/dL (8.6-10.3); EGFR African American 5.1 (>60); Globulin 4.3 g/dL (2-4); Total Bilirubin 0.6 mg/dL (0.2-1.0); Total Protein 8.6 g/dL (6.4-8.9)
[2017-06-29 20:12] LABS: Troponin I 0.05 ng/mL (<0.04)
[2017-06-29 20:15] LABS: Potassium 6.3 mmol/L (3.5-5.0)
[2017-06-29] MEDS ORDERED: Sodium Polystyrene ORAL.SOL* 15 GM/60 ML BTL PO ONE (20:23)
[2017-06-29] MEDS: LORazepam INJ* 2 MG/ML 1 ML VIAL IV ONE ×2 (20:45→20:48)
[2017-06-29] MEDS ORDERED: LORazepam INJ* 2 MG/ML 1 ML VIAL IM ONE (20:49)
[2017-06-29] MEDS ORDERED: Ondansetron ODT TAB* 4 MG PO ONE (20:54)
--- NOTE | 2017-06-29 22:43 | ED ---
Higinio Briones Thomas, scribed for Zain Templeton MD on 06/29/17 at 1852 . HPI Chest Pain - HPI Summary HPI Summary: The pt is a 66 y/o M presenting to the ED c/o intermittent mid-sternal sharp CP and bilateral lower back pain. He has numerous prior visits to the emergency department for chest pain, and this chest pain stems from that chronic complaint. The pt rates the pain 10/10. The pain is aggravated by nothing and is alleviated by sitting upright. The patient has treated the pain with nothing TAPER PRINTED CIRCUIT LAYOUT. Pt denies any other complaints at this time. His last dialysis appointment was this AM. PMHx: Dialysis, HTN, chronic pain. PSHx: CABG, pacemaker. He is on 2L NC Oxygen at time of examination. - History of Current Complaint Chief Complaint: EDChestPainROMI Time Seen by Provider: 06/29/17 18:16 Hx Obtained From: Patient Onset/Duration: Still Present Timing: Intermittent Current Severity: Severe Pain Intensity: 10 Pain Scale Used: 0-10 Numeric Chest Pain Location: Mid Sternal Aggravating Factor(s): Nothing Alleviating Factor(s): Nothing Associated Signs and Symptoms: Positive: Other: - POS: bilateral lower back pain Related History: Similar Episode/Dx as: - Similar to numerous prior visits - Additional Pertinent History Primary Care Physician: YARIEL - Allergy/Home Medications Allergies/Adverse Reactions: Allergies Allergy/AdvReac Type Severity Reaction Status Date / Time Aspirin Allergy Unknown See Comment Verified 03/09/17 14:01 Hydromorphone [From Dilaudid] AdvReac Intermediate Nausea And Verified 03/09/17 14:01 Vomiting PMH/Surg Hx/FS Hx/Imm Hx Previously Healthy: No Endocrine/Hematology History: Reports: Hx Blood Transfusions, Hx Sickle Cell Disease - Was told had sickle cell at one point but denies, Hx Anemia Denies: Hx Anticoagulant Therapy, Hx Bone Marrow Disease, Hx Diabetes, Hx Thyroid Disease Cardiovascular History: Reports: Hx Angina, Hx Auto Implanted Cardiovert Defib, Hx Congestive Heart Failure, Hx Coronary Artery Disease, Hx Hypertension, Hx Pacemaker/ICD, Hx Peripheral Vascular Disease, Hx Syncope, Other Cardiovascular Problems/Disorders - cardiomegaly, mitral valve and tricuspid valve repair Denies: Hx Cardiomegaly, Hx Hypercholesterolemia, Hx Myocardial Infarction, Hx Rheumatic Fever, Hx Valvular Heart Disease Respiratory History: Reports: Hx Asthma, Hx Chronic Obstructive Pulmonary Disease (COPD), Hx Pleural Effusion, Hx Pneumonia, Other Respiratory Problems/ Disorders Denies: Hx Pulmonary Edema, Hx Pulmonary Embolism, Hx Sleep Apnea GI History: Reports: Hx Cirrhosis, Hx Gastroesophageal Reflux Disease, Hx Ulcer - peptic ulcer, Other GI Disorders - hep C Denies: Hx Crohn's Disease, Hx Hiatal Hernia, Hx Irritable Bowel, Hx Jaundice History: Reports: Hx Acute Renal Failure, Hx Chronic Renal Failure, Hx Dialysis, Hx Renal Disease, Other Problems/Disorders - end stage renal disease, on dialysis Denies: Hx Kidney Infection, Hx Kidney Stones Musculoskeletal History: Reports: Hx Arthritis, Hx Back Problems - chronic pain , Hx Orthopedic Injury Denies: Hx Rheumatoid Arthritis, Hx Bursitis, Hx Tendonitis, Other Musculoskeletal History Sensory History: Reports: Hx Contacts or Glasses, Hx Glaucoma, Hx Vision Problem Denies: Hx Cataracts, Hx Hearing Aid Opthamlomology History: Reports: Hx Contacts or Glasses, Hx Glaucoma, Hx Vision Problem Denies: Hx Cataracts Neurological History: Reports: Hx Headaches, Hx Migraine, Other Neuro Impairments/Disorders - depression Denies: Hx Dementia, Hx Seizures Psychiatric History: Reports: Hx Anxiety, Hx Depression Denies: Hx Eating Disorder, Hx Panic Disorder, Hx Suicide Attempt, Hx of Violent Episodes Against Others, Hx Substance Abuse - Cancer History Hx Chemotherapy: No Hx Radiation Therapy: No Hx Palliative Cancer Treatment: No - Surgical History Surgery Procedure, Year, and Place: HERNIA REPAIR 2012. APPENDECTOMY 2000. LEFT ARM AV FISTULA/CAD - REMOVED. CABG 1 vessel, mitral & tricuspid valve repair March 02, 2014 AT [facility] CONDITIONAL 5 UPTO 3T. POWER PORT. Mitral and tricuspid valve repair Hx Anesthesia Reactions: No - Immunization History Date of Tetanus Vaccine: 2014 Date of Influenza Vaccine: Fall 2015 Infectious Disease History: Yes Infectious Disease History: Reports: Hx Hepatitis - Hep C, Hx of Known/ Suspected MRSA, History Other Infectious Disease - Hepatitis C Denies: Hx Clostridium Difficile, Hx Human Immunodeficiency Virus (HIV), Hx Shingles, Hx Tuberculosis, Hx Known/Suspected VRE, Hx Known/Suspected VRSA, Traveled Outside the [place] in Last 30 Days - Family History Known Family History: Positive: None, Cardiac Disease, Hypertension, Other - CVA Family History: R & N/C - Social History Alcohol Use: None Alcohol Amount: former EtOH abuse Hx Substance Use: Yes Substance Use Type: Reports: Marijuana Substance Use Comment - Amount & Last Used: today Hx Tobacco Use: Yes Smoking Status (MU): Former Smoker Type: Cigarettes Amount Used/How Often: 1/2 ppd Length of Time of Smoking/Using Tobacco: 10 years Have You Smoked in the Last Year: No Review of Systems Negative: Fever Positive: Chest Pain - intermittent mid-sternal Positive: Other - POS: bilateral lower back pain All Other Systems Reviewed And Are Negative: Yes Physical Exam Triage Information Reviewed: Yes Vital Signs On Initial Exam: Initial Vitals Temp Pulse Resp BP Pulse Ox 98.4 F 74 20 175/120 96 06/29/17 17:58 06/29/17 17:58 06/29/17 17:58 06/29/17 17:58 06/29/17 17:58 Vital Signs Reviewed: Yes Appearance: Positive: Well-Appearing, No Pain Distress, Well-Nourished Skin: Positive: Warm, Skin Color Reflects Adequate Perfusion, Dry Head/Face: Positive: Normal Head/Face Inspection Eyes: Positive: Normal ENT: Positive: Normal ENT inspection Neck: Positive: Supple, Nontender Respiratory/Lung Sounds: Positive: Clear to Auscultation, Breath Sounds Present Cardiovascular: Positive: RRR Abdomen Description: Positive: Nontender, Soft Bowel Sounds: Positive: Present Musculoskeletal: Positive: Normal Neurological: Positive: Normal Psychiatric: Positive: Normal, Affect/Mood Appropriate - [place] Coma Scale Coma Scale Total: 15 Diagnostics - Vital Signs Vital Signs Temp Pulse Resp BP Pulse Ox 06/29/17 18:16 77 97 06/29/17 18:14 135/119 06/29/17 18:13 98.1 F 76 14 135/119 98 06/29/17 17:58 98.4 F 74 20 175/120 96 - Laboratory Lab Results: Lab Results 06/29/17 06/29/17 06/29/17 Range/Units 19:38 19:38 19:38 WBC 4.2 (3.5-10.8) 10^3/ul RBC 3.32 L (4.0-5.4) 10^6/ul Hgb 9.7 L (14.0-18.0) g/dl Hct 30 L (42-52) % MCV 89 (80-94) fL MCH 29 (27-31) pg MCHC 33 (31-36) g/dl RDW 18 H (10.5-15) % Plt Count 164 (150-450) 10^3/ul MPV 8 (7.4-10.4) um3 Neut % (Auto) 64.2 (38-83) % Lymph % (Auto) 19.4 L (25-47) % [place] % (Auto) 13.6 H (1-9) % Eos % (Auto) 1.5 (0-6) % Baso % (Auto) 1.3 (0-2) % Absolute Neuts (auto) 2.7 (1.5-7.7) 10^3/ul Absolute Lymphs (auto) 0.8 L (1.0-4.8) 10^3/ul Absolute Monos (auto) 0.6 (0-0.8) 10^3/ul Absolute Eos (auto) 0.1 (0-0.6) 10^3/ul Absolute Basos (auto) 0.1 (0-0.2) 10^3/ul Absolute Nucleated RBC 0.01 10^3/ul Nucleated RBC % 0.1 Sodium 135 (133-145) mmol/L Potassium 6.3 H* (3.5-5.0) mmol/L Chloride 92 L (101-111) mmol/L Carbon Dioxide 30 (22-32) mmol/L Anion Gap 13 H (2-11) mmol/L BUN 63 H (6-24) mg/dL Creatinine 12.72 H (0.67-1.17) mg/dL Est GFR ( Amer) 5.1 (>60) Est GFR (Non-Af Amer) 4.0 (>60) BUN/Creatinine Ratio 5.0 L (8-20) Glucose 69 L (70-100) mg/dL Lactic Acid 0.6 (0.5-2.0) mmol/L Calcium 9.7 (8.6-10.3) mg/dL Total Bilirubin 0.60 (0.2-1.0) mg/dL AST 37 (13-39) U/L ALT 15 (7-52) U/L Alkaline Phosphatase 64 (34-104) U/L Troponin I 0.05 H* (<0.04) ng/mL Total Protein 8.6 (6.4-8.9) g/dL Albumin 4.3 (3.2-5.2) g/dL Globulin 4.3 H (2-4) g/dL Albumin/Globulin Ratio 1.0 (1-3) Result Diagrams: 06/29/17 19:38 06/29/17 19:38 Lab Statement: Any lab studies that have been ordered have been reviewed, and results considered in the medical decision making process. - Radiology CXR Xray Interpretation: Positive (See Comments) - POSTOPERATIVE CHANGES. MILD THORACIC CONGESTION SMALL BILATERAL PLEURAL EFFUSIONS. ED Physician has read this report and agrees. Radiology Interpretation Completed By: Radiologist - EKG 18:12 Cardiac Rate: NL - 72 BPM EKG Interpretation: Sinus rhythm. LVH with strain pattern. EKG Comparison: No Significant Change - from previous EKG on 06/24/17. Chest Pain Course/Dx - Course Course Of Treatment: Mr. Templeton's low back pain was treated with ativan as muscle relaxer. He was R/O with two troponins and D/C'd home. His K was 6.[address] Dalal suggested a dose of Kayexalate now and one HS and dialysis tomorrow. - Diagnoses Provider Diagnoses: Chest pain, Hyperkalemia - Provider Notifications Discussed Care Of Patient With: Jose Eduardo Dalal Time Discussed With Above Provider: 20:22 Instructed by Provider To: Other - I consulted regarding patient care. Discharge - Discharge Plan Condition: Stable Disposition: HOME Patient Education Materials: Chest Pain (ED), Hyperkalemia (ED) Referrals: Marielena Vargas MD [Primary Care Provider] - 5 Days Additional Instructions: Follow up tomorrow afternoon at the dialysis center for dialysis. Follow up with your primary care provider in 3-5 days. Return to the emergency department for any new or worsening symptoms. The documentation as recorded by the Higinio casey Thomas accurately reflects the service I personally performed and the decisions made by me, Zain Templeton MD.
[2017-06-29] MEDS: Sodium Polystyrene ORAL.SOL* 15 GM/60 ML BTL PO ONE ×2 (23:16→23:21)
[2017-06-29 23:20] VITALS: BP 176/116
== END 2017-06-29 23:20 | disposition home or self-care (01) ==
LOC: ED 17:57
DX: R07.9 Chest pain, unspecified (principal); E87.5 Hyperkalemia; M54.5 Low back pain; Z87.891 Personal history of nicotine dependence
CPT/HCPCS: 36415; 71010; 80053; 83605; 84484; 85025; 93005; 96372; 96374; 99284; A9270-GY; J2060

== ENCOUNTER 2017-06-30 12:46 | Inpatient (IN) | payer MEDICARE, MEDICAID ==
[2017-06-30] MEDS ORDERED: Morphine INJ* 4 MG/ML 1 ML CARPUJECT IV ONE ×2 (14:45→15:59)
[2017-06-30] MEDS: Ondansetron INJ* 2 MG/ML VIAL IV ONE (15:23)
[2017-06-30 15:46] LABS: Hematocrit 30 % (42-52); Hemoglobin 9.6 g/dl (14.0-18.0); Mean Corpuscular HGB Conc 32 g/dl (31-36); Mean Corpuscular Hemoglobin 29 pg (27-31); Mean Corpuscular Volume 89 fL (80-94); Mean Platelet Volume 8 um3 (7.4-10.4); Red Blood Count 3.31 10^6/ul (4.0-5.4); Red Cell Distribution Width 18 % (10.5-15); White Blood Count 4.3 10^3/ul (3.5-10.8)
[2017-06-30 16:06] LABS: Albumin 4.3 g/dL (3.2-5.2); BUN/Creatinine Ratio 5.1 (8-20); Calcium 9.3 mg/dL (8.6-10.3); EGFR African American 4.8 (>60); EGFR Non-African American 3.7 (>60); Globulin 4.3 g/dL (2-4); Total Bilirubin 0.6 mg/dL (0.2-1.0); Total Protein 8.6 g/dL (6.4-8.9)
[2017-06-30 16:09] LABS: Troponin I 0.06 ng/mL (<0.04)
[2017-06-30] MEDS ORDERED: Ondansetron INJ* 2 MG/ML VIAL ONE (16:10)
[2017-06-30] MEDS ORDERED: Ondansetron INJ* 2 MG/ML VIAL IV ONE (16:11)
[2017-06-30] MEDS ORDERED: Iodixanol* (CONTRAST) 320 MG/ML 100 ML SDV IV ONE (16:35)
--- NOTE | 2017-06-30 16:48 | RAD ---
INDICATION: Chest pain. Short of breath. Evaluate for pulmonary embolus. Vascular congestion. COMPARISON: Chest x-ray June 29, 2017 TECHNIQUE: Axial source images were obtained from the thoracic inlet to the hemidiaphragms following administration of [address] angiographic technique was utilized. Coronal and sagittal reconstructed images were acquired. CHEST FINDINGS: Neck/thyroid: The visualized neck to include the thyroid appear normal. Chest wall: There are no acute abnormalities of the bony thorax or chest wall. There is sternotomy. There is a left-sided cardiac pacemaker/defibrillator. There is no supraclavicular, infraclavicular, or axillary lymphadenopathy. Lungs : There is bibasilar airspace disease which is linear and most consistent with atelectasis. In addition, there is an area of consolidation left lung base which appears chronic. The pulmonary interstitium appears prominent consistent with interstitial edema. There are no endobronchial lesions. Cardiomediastinal structures: There is no CT evidence of acute pulmonary embolic disease. The heart is enlarged. There is no pericardial effusion. There is no evidence of aortic aneurysm or dissection. There are coronary artery calcifications. There is prior mitral valvular surgery. There is no mediastinal or hilar adenopathy. The esophagus appears normal. Pleura : There are no significant effusions. Other: None. IMPRESSION: 1. No CT evidence of acute pulmonary embolic disease. 2. Cardiomegaly with interstitial edema. 3. Bibasilar atelectasis. Chronic consolidative change medial left lung base.
[2017-06-30] MEDS ORDERED: Albuterol 2.5 MG/3 ML NEB.SOL* (0.083%) INH ONE (17:14)
[2017-06-30] MEDS ORDERED: Sodium Polystyrene ORAL.SOL* 15 GM/60 ML BTL PO ONE ×2 (17:14→20:00)
[2017-06-30] MEDS ORDERED: Nitroglycerin 2% OINT* 1 GM PAK TOPICAL ONE (17:16)
[2017-06-30] MEDS ORDERED: Insulin REGULAR(*) 1 UNITS UNIT IV PUSH ONE (17:32)
[2017-06-30] MEDS ORDERED: Calcium Gluconate INJ* 1 GM in NS 0.9% 50 ML* 50 ML IVPB ONE (17:32)
[2017-06-30] MEDS ORDERED: Dextrose 50% Syringe 50 ML* 25 GM/50 ML SYRINGE IV PUSH ONE (17:33)
[2017-06-30] MEDS ORDERED: Zolpidem TAB* 10 MG PO PRN (17:36)
[2017-06-30] MEDS ORDERED: Meclizine TAB* 12.5 MG PO PRN (17:36)
[2017-06-30] MEDS ORDERED: Simethicone CHEW TAB* 80 MG PO PRN (17:36)
[2017-06-30] MEDS ORDERED: Albuterol HFA INHALER* 8 gm MDI INH PRN (17:36)
[2017-06-30] MEDS ORDERED: LORazepam TAB(*) 0.5 MG PO PRN (17:36)
[2017-06-30] MEDS ORDERED: Morphine INJ* 4 MG/ML 1 ML CARPUJECT IV PRN (18:43)
[2017-06-30] MEDS ORDERED: Labetalol IV* 200 MG in NS 0.9% 250 ML* 160 ML IVPB SCH (19:00)
[2017-06-30] MEDS: oxyCODONE TAB* 5 MG TAB PO PRN (19:32)
[2017-06-30] MEDS: amLODIPine TAB* 5 MG PO SCH (19:33)
[2017-06-30] MEDS: Carvedilol TAB* 25 MG PO SCH (20:09)
[2017-06-30 20:14] LABS: Troponin I 0.06 ng/mL (<0.04)
[2017-06-30 20:23] LABS: BUN/Creatinine Ratio 5.3 (8-20); Calcium 9.2 mg/dL (8.6-10.3); EGFR African American 4.8 (>60); EGFR Non-African American 3.8 (>60)
--- NOTE | 2017-06-30 21:15 | RAD ---
INDICATION: Pleuritic chest pain COMPARISON: CTA chest same day; abdomen April 27, 2017; CT abdomen pelvis February 06, 2017 TECHNIQUE: Nonintravenous contrast axial source images were acquired from the level hemidiaphragms to the symphysis pubis. Oral contrast was administered. Lung bases: There is chronic consolidative changes in the left lung base. There is sternotomy with prior cardiothoracic surgery. There is a left-sided cardiac pacemaker/defibrillator. Liver: The liver is normal in size. Noncontrast imaging shows no evidence of a hepatic mass or ductal dilatation. Gallbladder: There are no calcified gallstones. There is no evidence of wall thickening or pericholecystic fluid.. Spleen: The spleen is normal in size. The noncontrast CT appearance is normal. Pancreas: Limited evaluation due to poor oral contrast opacification and lack of intravenous contrast. Adrenal glands: No masses are identified. Kidneys/Bladder: Atrophic kidneys. No mass or obstructive findings. Adenopathy: There is no evidence of intraperitoneal or retroperitoneal adenopathy. Evaluation is limited without oral contrast. Fluid collections: There are no free or localized fluid collections. Vessels: There are atherosclerotic changes of the aorta and iliac vessels. There is no focal aneurysm. The IVC appears normal Pelvic organs: The prostate and seminal vesicles appear normal GI tract: Limited evaluation due to poor oral contrast opacification. There is mild small bowel distention with multiple air-fluid loops of small bowel. There is also air within the colon. The findings may relate to mild ileus. Similar findings were present previously. Soft tissues: No soft tissue abnormalities of the extraperitoneal abdomen or pelvis are identified. Osseous structures: There are no acute osseous findings. IMPRESSION: 1. Cardiomegaly with prior cardiothoracic surgery. 2. Chronic left basilar consolidative changes. 3. Mild bowel distention without acute change. Suggest a follow-up abdominal series is indicated. 4. Atrophic kidneys
--- NOTE | 2017-07-01 00:29 | HP ---
CC: Dr. Dalal; Dr. Vargas * HISTORY AND PHYSICAL: DATE OF ADMISSION: 06/30/17 PRIMARY CARE PROVIDER: Marielena Vargas MD ELECTRICAL MECHANIC: Dr. Dalal. CHIEF COMPLAINT: Abdominal pain. HISTORY OF PRESENT ILLNESS: Pato Templeton is a 66-year-old male with history of end - stage renal disease and chronic medical noncompliance as well as hypertension , chronically uncontrolled who presented to the hospital complaining of abdominal pain. The patient stated that he missed it. He is usually Thursday, Thursday, Thursday dialysis patient, but he missed his Thursday dialysis yesterday because he did not feel well. Today, he also did not come to be dialyzed, instead came to the ER for evaluation. He was noted to have potassium of 7. He complained of diffuse abdominal pain, which usually happens when he misses dialysis. The patient was at [facility] today for outpatient removal of his tunneled dialysis catheter on the right side of his chest. His systolic pressures currently are in the 240s range. He is going to be admitted to the intensive care unit with diagnosis of hyperkalemia. PAST MEDICAL HISTORY: 1. End-stage renal disease, on hemodialysis, Mondays, Wednesdays and Fridays. 2. Hypertension, chronically uncontrolled. 3. History of coronary artery disease, status post coronary artery bypass grafting. 4. History of peripheral vascular disease. 5. 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 6. History of gastroesophageal reflux disease. 7. Hepatitis C. 8. History of anemia. 9. History of chronic pain with history of abdominal pain and chest pain chronically. 10. History of mitral valve annuloplasty and tricuspid valve repair in 2013. 11. Status post ICD placement by Dr. Lei in 2015. 12. History of cardiomyopathy with recent echo of 40% EF. CURRENT MEDICATIONS: Include 1. Ambien 10 mg at bedtime p.r.n. 2. Trazodone 100 mg at bedtime. 3. Simvastatin 5 mg daily. 4. Simethicone 80 mg every 8 hours p.r.n. 5. Zantac 150 mg daily. 6. Vitamin B complex 1 tablet daily. 7. PhosLo 1334 mg t.i.d. 8. Oxycodone 50 mg every 6 hours p.r.n. 9. Zofran 4 mg every 8 hours p.r.n. 10. Omeprazole 40 mg b.i.d. 11. Nitroglycerin on a p.r.n. basis. 12. Meclizine 25 mg every 8 hours p.r.n. 13. Hydralazine 25 mg 3 times a day. 14. Lorazepam 0.5 mg p.r.n. 15. Gabapentin 300 mg 3 times a day. 16. Furosemide 20 mg daily. 17. Folic acid 0.5 mg daily. 18. Lexapro 10 mg daily. 19. Colace 100 mg b.i.d. 20. Voltaren gel 1% applied topically to for affected areas twice a day. 21. Flexeril 5 mg every 8 hours p.r.n. 22. Sensipar 30 mg daily. 23. Coreg 25 mg b.i.d. 24. Amlodipine 10 mg a day. 25. Albuterol inhaler 2 puffs every 4 hours p.r.n. ALLERGIES: Include ASPIRIN and DILAUDID. FAMILY HISTORY: Positive for mother with history of heart disease and stroke. SOCIAL HISTORY: The patient is a former smoker. There is no history of alcohol abuse. Occasional marijuana smoker. His surrogate decision maker is his brother, Joe Templeton, phone number [phone]. REVIEW OF SYSTEMS: Please see history of present illness. In addition to the abovementioned, the patient denies, chest pain. Complains of shortness of breath, but that was alleviated with application of oxygen. Complains of abdominal pain that had been ongoing for five days. He states also that he has been having loose stools approximately 5 times a day for the past couple of days. He missed his dialysis yesterday due to "not feeling well." He denies any fevers. All the remaining 14 systems were reviewed with the patient and were otherwise negative. PHYSICAL EXAMINATION VITAL SIGNS: Blood pressure , heart rate of 76 and regular, respiratory rate 14, oxygen saturation 99% on 3L of oxygen nasal cannula, temperature of 97.0. GENERAL: The patient is a very pleasant 66-year-old male, who is in no acute distress. Alert, awake, and oriented x3. HEENT: Head: Atraumatic, normocephalic. Eyes: Pupils equal and reactive to light and accommodation. Oropharynx clear. Mucosa moist. NECK: Supple. Positive for JVD bilaterally. No bruits. RESPIRATORY: Faint crackles at bilateral bases. CARDIOVASCULAR: Regular rate and rhythm with 2/6 diastolic murmur noted in the right upper sternal border. ABDOMEN: Protuberant and tympanic to percussion. Soft and diffusely tender specifically over the area of visible through his skin loop of bowel in the left periumbilical area. The ventral hernia is tender to palpation with no rebound. Positive for voluntary guarding. Bowel sounds are hypoactive. EXTREMITIES: There is no edema. Pulses are 2+ bilaterally. No clubbing or cyanosis. There is an AV fistula placed in the right forearm with positive thrill. NEURO EVALUATION: Cranial nerves II through XII are grossly intact. Speech is clear. Motor strength is 5/5 bilaterally. SKIN: The patient has a puncture site in the right upper chest after removal of his catheter. No other lesions noted. PSYCHIATRIC EVALUATION: The patient is alert and oriented x3, with no evidence of anxiety or depression. LABORATORY DATA/DIAGNOSTIC DATA: Laboratory data showed white blood cell count of 4.3, hemoglobin of 9.6, hematocrit of 30 and platelets of 131. Sodium was 137, potassium 7.0, chloride 93, carbon dioxide 33, BUN 70, creatinine 13. Liver function tests were unremarkable apart from AST mildly elevated at 40 and troponin of 0.06. The patient's EKG showed sinus rhythm with a heart rate of 73 beats per minute with no significant ST changes. CT angiogram of the chest obtained today, impression: "No CT evidence of acute pulmonary embolic disease, cardiomegaly with interstitial edema, bibasilar atelectasis. Chronic consolidative change in medial lung base." ASSESSMENT AND PLAN: 1. The patient has hyperkalemia due to medical noncompliance and missing his dialysis. The patient is going to be observed in the intensive care unit. I discussed the case with Dr. Dalal, the patient's steam oven operator. Dr. Dalal recommended 2 doses of Kayexalate today and repeat basic metabolic panel in the evening. If it continues to be elevated, we need to notify Dr. Dalal. Otherwise, if his potassium is lower than 7, the patient is going to be observed in the intensive care unit for hemodialysis in the morning. 2. In regards to the patient's hypertensive urgency, the patient frequently comes in hypertensive emergency. Mostly, due to medical noncompliance. We will place him back on his p.o. medications and started labetalol drip. 3. In regards to the patient's abdominal pain. Concerned about his abdominal hernia. An abdominal CT with p.o. contrast is going to be obtained. For the time being, the patient is going to be placed on clears. 4. For DVT prophylaxis, the patient is going to be placed on heparin subcutaneously. 5. The patient's code status is full. TIME SPENT: Approximately 65 minutes were spent on admission of this patient, more than half of the time was spent [id number] with the patient during the interview, physical exam. [id number]/[facility] #: [id number] STEPHANIE
[2017-07-01] MEDS: Gabapentin CAP(*) 300 MG PO SCH ×4 (02:45→21:53)
[2017-07-01] MEDS: Albuterol 2.5 MG/3 ML NEB.SOL* (0.083%) INH SCH ×2 (02:45→18:19)
[2017-07-01] MEDS: Docusate CAP* 100 MG PO SCH ×3 (02:45→22:39)
[2017-07-01] MEDS: Omeprazole CAP* 20 MG PO SCH ×3 (02:47→17:00)
[2017-07-01] MEDS: hydrALAZINE TAB* 25 MG PO SCH ×4 (02:47→21:53)
[2017-07-01] MEDS: Heparin VIAL(*) 5000 UNITS/ML VIAL (FIVE THOUSAND) SUBCUT SCH ×4 (02:47→22:39)
[2017-07-01] MEDS: traZODone TAB* 50 MG TAB PO SCH ×2 (02:47→21:53)
[2017-07-01] MEDS: Ondansetron INJ* 2 MG/ML VIAL IV ONE (05:32)
[2017-07-01] MEDS ORDERED: Ondansetron INJ* 2 MG/ML VIAL IV PRN (05:36)
[2017-07-01 05:40] LABS: Hematocrit 26 % (42-52); Hemoglobin 8.5 g/dl (14.0-18.0); Mean Corpuscular HGB Conc 33 g/dl (31-36); Mean Corpuscular Hemoglobin 29 pg (27-31); Mean Corpuscular Volume 90 fL (80-94); Mean Platelet Volume 8 um3 (7.4-10.4); Red Blood Count 2.89 10^6/ul (4.0-5.4); Red Cell Distribution Width 18 % (10.5-15); White Blood Count 3.8 10^3/ul (3.5-10.8)
[2017-07-01 05:58] LABS: BUN/Creatinine Ratio 5.6 (8-20); Blood Urea Nitrogen 76 mg/dL (6-24); CO2 Carbon Dioxide 27 mmol/L (22-32); Calcium 8.9 mg/dL (8.6-10.3); Chloride 94 mmol/L (101-111); EGFR African American 4.7 (>60); EGFR Non-African American 3.7 (>60); Glucose 106 mg/dL (70-100); Sodium 132 mmol/L (133-145)
[2017-07-01 06:12] LABS: Anion Gap 11 mmol/L (2-11)
[2017-07-01] MEDS ORDERED: Calcium Gluconate INJ* 1 GM in NS 0.9% 50 ML* 50 ML IVPB ONE (07:25)
[2017-07-01] MEDS ORDERED: CALCIUM GLUCONATE* 1 GM/10 ML VIAL (in Pyxis) ONE (07:29)
[2017-07-01 07:59] LABS: BUN/Creatinine Ratio 5.5 (8-20); Calcium 9.1 mg/dL (8.6-10.3); EGFR African American 4.6 (>60); EGFR Non-African American 3.5 (>60)
[2017-07-01 08:24] LABS: Potassium 7.9 mmol/L (3.5-5.0)
[2017-07-01] MEDS ORDERED: Epoetin Alfa* 10,000 UNITS/ML VIAL IV ONE (09:00)
[2017-07-01] MEDS ORDERED: Heparin DIALYSIS ONLY(*) 1,000 UNITS/ML VIAL DIALYSIS ONE (09:00)
[2017-07-01] MEDS: Carvedilol TAB* 25 MG PO SCH ×2 (12:10→17:30)
[2017-07-01] MEDS: Calcium Acetate CAP* 667 MG PO SCH ×4 (12:10→17:48)
[2017-07-01] MEDS: amLODIPine TAB* 5 MG PO SCH (12:11)
[2017-07-01] MEDS: Folic Acid TAB* 1 MG PO SCH (12:12)
[2017-07-01] MEDS: Citalopram TAB* 20 MG PO SCH (12:12)
[2017-07-01] MEDS: Furosemide TAB* 20 MG PO SCH (12:13)
--- NOTE | 2017-07-01 14:15 | PN ---
Progress Note - Progress Note Date of Service: 07/01/17 Note: Palliative care Consult note: Apto was upset when I entered that I had woken him up. States he hasn't slept and finally fell asleep. He did not want to be bothered and had asked me to leave. I will try again later today to speak with Pato.
[2017-07-01] MEDS: Cinacalcet TAB* 30 MG PO SCH (14:32)
[2017-07-01] MEDS: oxyCODONE TAB* 5 MG TAB PO PRN ×2 (15:30→18:15)
--- NOTE | 2017-07-01 16:07 | PN ---
Subjective Date of Service: 07/01/17 Interval History: pt had dialysis in AM and his pacer was adjusted (was oversensing T waves and not pacing pt's HR of 30 BPM prior dialysis). Since his dialysis he refused his blood to be drawn and his PO meds. Told me that he wants to be left alone and sleep Objective Active Medications: Albuterol (Ventolin 2.5 Mg/3 Ml Neb.Joanna*) 1.25 mg INH QID [facility] Last Admin: 07/01/17 02:45 Dose: Not Given Albuterol (Ventolin Hfa Inhaler*) 2 puff INH Q4H PRN PRN Reason: SHORTNESS OF BREATH Amlodipine Besylate (Norvasc Tab*) 10 mg PO DAILY [facility] Last Admin: 07/01/17 12:11 Dose: 10 mg Calcium Acetate (Phoslo Cap*) 1,334 mg PO TID WITH MEALS [facility] Last Admin: 07/01/17 15:32 Dose: Not Given Carvedilol (Coreg Tab*) 25 mg PO BID WITH MEALS [facility] Last Admin: 07/01/17 12:10 Dose: 25 mg Cinacalcet (Sensipar Tab*) 30 mg PO DAILY [facility] Last Admin: 07/01/17 14:32 Dose: 30 mg Citalopram Hydrobromide (Celexa Tab*) 20 mg PO DAILY [facility] Last Admin: 07/01/17 12:12 Dose: 20 mg Docusate Sodium (Colace Cap*) 100 mg PO BID [facility] Last Admin: 07/01/17 12:12 Dose: Not Given Folic Acid (Folvite Tab*) 0.5 mg PO DAILY [facility] Last Admin: 07/01/17 12:12 Dose: 0.5 mg Furosemide (Lasix Tab*) 20 mg PO DAILY [facility] Last Admin: 07/01/17 12:13 Dose: 20 mg Gabapentin (Neurontin Cap(*)) 300 mg PO TID [facility] Last Admin: 07/01/17 14:33 Dose: 300 mg Heparin Sodium (Porcine) (Heparin Vial(*)) 5,000 units SUBCUT Q8HR [facility] Last Admin: 07/01/17 15:33 Dose: Not Given Hydralazine HCl (Apresoline Tab*) 25 mg PO TID [facility] Last Admin: 07/01/17 14:32 Dose: 25 mg Labetalol HCl 200 mg/ Sodium (Chloride) 200 mls @ 60 mls/hr IVPB .(Initial Rate ) SO PRN Reason: 1 MG/MIN Last Admin: 06/30/17 20:08 Dose: 30 mls/hr Lorazepam (Ativan Tab(*)) 0.5 mg PO Q6HR PRN PRN Reason: ANXIETY Meclizine HCl (Antivert Tab*) 25 mg PO Q8HR PRN PRN Reason: DIZZINESS Omeprazole (Prilosec Cap*) 40 mg PO BID AC [facility] Last Admin: 07/01/17 10:35 Dose: Not Given Ondansetron HCl (Zofran Inj*) 4 mg IV Q6H PRN PRN Reason: NAUSEA/VOMITING Oxycodone HCl (Roxycodone Tab*) 15 mg PO Q6HR PRN PRN Reason: PAIN Last Admin: 07/01/17 15:30 Dose: 15 mg Simethicone (Mylicon*) 80 mg PO Q8HR PRN PRN Reason: NAUSEA/VOMITING Last Admin: 07/01/17 04:54 Dose: 80 mg Trazodone HCl (Desyrel Tab*) 100 mg PO BEDTIME [facility] Last Admin: 07/01/17 02:47 Dose: Not Given Zolpidem Tartrate (Ambien Tab*) 10 mg PO BEDTIME PRN PRN Reason: SLEEP Vital Signs 06/30/17 06/30/17 06/30/17 17:36 18:00 18:08 Temperature 97.8 F Pulse Rate 76 75 80 Respiratory 14 14 16 Rate Blood Pressure 231/141 (mmHg) O2 Sat by Pulse 100 99 100 Oximetry 06/30/17 06/30/17 06/30/17 18:33 18:39 18:51 Temperature Pulse Rate 76 80 82 Respiratory 20 15 28 Rate Blood Pressure 249/132 (mmHg) O2 Sat by Pulse 99 100 99 Oximetry 06/30/17 06/30/17 06/30/17 18:59 19:00 19:02 Temperature Pulse Rate 89 86 86 Respiratory 25 29 22 Rate Blood Pressure 260/130 260/126 (mmHg) O2 Sat by Pulse 96 96 99 Oximetry 06/30/17 06/30/17 06/30/17 19:15 19:30 19:45 Temperature Pulse Rate 83 98 86 Respiratory 15 21 17 Rate Blood Pressure 259/135 261/119 242/115 (mmHg) O2 Sat by Pulse 98 98 96 Oximetry 06/30/17 06/30/17 06/30/17 20:00 20:16 20:25 Temperature 97.8 F Pulse Rate 82 93 Respiratory 14 29 Rate Blood Pressure 213/115 261/132 (mmHg) O2 Sat by Pulse 93 99 Oximetry 06/30/17 06/30/17 06/30/17 20:30 20:37 20:40 Temperature Pulse Rate 75 Respiratory 11 14 14 Rate Blood Pressure 183/106 (mmHg) O2 Sat by Pulse 93 Oximetry 06/30/17 06/30/17 06/30/17 20:45 21:12 21:15 Temperature Pulse Rate 73 71 71 Respiratory 12 18 19 Rate Blood Pressure 205/115 168/104 (mmHg) O2 Sat by Pulse 90 96 98 Oximetry 06/30/17 06/30/17 06/30/17 21:30 21:45 22:00 Temperature Pulse Rate 67 67 67 Respiratory 9 7 13 Rate Blood Pressure 192/105 187/103 174/107 (mmHg) O2 Sat by Pulse 98 98 100 Oximetry 06/30/17 06/30/17 06/30/17 22:15 22:30 22:45 Temperature Pulse Rate 65 64 66 Respiratory 16 10 19 Rate Blood Pressure 195/100 194/101 175/101 (mmHg) O2 Sat by Pulse 99 92 96 Oximetry 06/30/17 06/30/17 06/30/17 23:00 23:16 23:30 Temperature Pulse Rate 64 64 66 Respiratory 6 15 10 Rate Blood Pressure 168/93 173/93 186/101 (mmHg) O2 Sat by Pulse 98 95 98 Oximetry 06/30/17 07/01/17 07/01/17 23:45 00:00 00:15 Temperature Pulse Rate 65 65 64 Respiratory 19 7 9 Rate Blood Pressure 181/93 179/100 172/99 (mmHg) O2 Sat by Pulse 89 91 93 Oximetry 07/01/17 07/01/17 07/01/17 00:18 00:30 00:45 Temperature Pulse Rate 73 70 64 Respiratory 7 7 3 Rate Blood Pressure 172/103 189/92 (mmHg) O2 Sat by Pulse 81 98 98 Oximetry 07/01/17 07/01/17 07/01/17 01:00 01:15 01:30 Temperature Pulse Rate 66 62 62 Respiratory 10 6 10 Rate Blood Pressure 166/95 178/89 144/84 (mmHg) O2 Sat by Pulse 90 92 96 Oximetry 07/01/17 07/01/17 07/01/17 01:45 02:00 02:15 Temperature Pulse Rate 62 61 59 Respiratory 6 19 9 Rate Blood Pressure 166/96 158/90 186/83 (mmHg) O2 Sat by Pulse 100 97 100 Oximetry 07/01/17 07/01/17 07/01/17 02:30 02:45 03:00 Temperature Pulse Rate 59 58 55 Respiratory 8 10 9 Rate Blood Pressure 156/101 171/107 175/92 (mmHg) O2 Sat by Pulse 100 99 99 Oximetry 07/01/17 07/01/17 07/01/17 03:16 03:31 03:45 Temperature Pulse Rate 50 52 49 Respiratory 9 7 7 Rate Blood Pressure 167/82 156/93 165/80 (mmHg) O2 Sat by Pulse 97 98 100 Oximetry 07/01/17 07/01/17 07/01/17 04:00 05:00 05:15 Temperature 98 F Pulse Rate 64 67 Respiratory 22 9 31 Rate Blood Pressure 179/150 (mmHg) O2 Sat by Pulse 90 96 Oximetry 07/01/17 07/01/17 07/01/17 05:31 05:45 06:00 Temperature Pulse Rate 60 56 58 Respiratory 10 18 15 Rate Blood Pressure 234/160 176/103 194/97 (mmHg) O2 Sat by Pulse 95 91 98 Oximetry 07/01/17 07/01/17 07/01/17 06:15 06:30 06:45 Temperature Pulse Rate 59 62 54 Respiratory 16 12 12 Rate Blood Pressure 176/101 185/97 177/102 (mmHg) O2 Sat by Pulse 88 92 99 Oximetry 07/01/17 07/01/17 07/01/17 07:00 07:15 07:18 Temperature Pulse Rate 48 41 41 Respiratory 7 7 6 Rate Blood Pressure 163/109 164/81 146/75 (mmHg) O2 Sat by Pulse 96 98 98 Oximetry 07/01/17 07/01/17 07/01/17 07:31 07:45 08:00 Temperature 96.6 F Pulse Rate 56 58 59 Respiratory 13 7 11 Rate Blood Pressure 202/108 210/116 (mmHg) O2 Sat by Pulse 95 100 99 Oximetry 07/01/17 07/01/17 07/01/17 08:01 08:15 08:31 Temperature Pulse Rate 59 59 55 Respiratory 18 15 16 Rate Blood Pressure 210/104 188/137 122/105 (mmHg) O2 Sat by Pulse 100 100 100 Oximetry 07/01/17 07/01/17 07/01/17 08:46 08:52 09:00 Temperature Pulse Rate 56 56 59 Respiratory 15 17 16 Rate Blood Pressure 203/104 193/90 210/104 (mmHg) O2 Sat by Pulse 71 91 100 Oximetry 07/01/17 07/01/17 07/01/17 09:15 09:30 09:45 Temperature Pulse Rate 66 68 69 Respiratory 19 16 15 Rate Blood Pressure 207/112 209/105 204/108 (mmHg) O2 Sat by Pulse 100 100 98 Oximetry 07/01/17 07/01/17 07/01/17 10:00 10:15 10:30 Temperature Pulse Rate 70 72 73 Respiratory 16 18 17 Rate Blood Pressure 207/105 205/106 201/112 (mmHg) O2 Sat by Pulse 100 100 100 Oximetry 07/01/17 07/01/17 07/01/17 10:45 11:00 11:15 Temperature Pulse Rate 73 72 74 Respiratory 16 13 12 Rate Blood Pressure 212/103 215/111 206/113 (mmHg) O2 Sat by Pulse 100 100 100 Oximetry 07/01/17 07/01/17 07/01/17 11:30 11:45 11:58 Temperature Pulse Rate 74 70 73 Respiratory 13 12 10 Rate Blood Pressure 214/111 213/101 205/108 (mmHg) O2 Sat by Pulse 100 99 99 Oximetry 07/01/17 07/01/17 07/01/17 12:00 12:15 12:30 Temperature Pulse Rate 73 74 75 Respiratory 12 12 10 Rate Blood Pressure 222/107 212/109 221/109 (mmHg) O2 Sat by Pulse 98 99 99 Oximetry 07/01/17 07/01/17 07/01/17 12:45 13:00 13:15 Temperature Pulse Rate 76 75 74 Respiratory 14 11 11 Rate Blood Pressure 218/106 234/109 214/109 (mmHg) O2 Sat by Pulse 100 99 99 Oximetry 07/01/17 07/01/17 07/01/17 13:30 13:45 14:00 Temperature Pulse Rate 71 70 70 Respiratory 10 10 8 Rate Blood Pressure 222/106 219/106 220/106 (mmHg) O2 Sat by Pulse 100 100 98 Oximetry 07/01/17 07/01/17 07/01/17 14:15 14:30 15:00 Temperature Pulse Rate 70 69 Respiratory 9 11 14 Rate Blood Pressure 215/103 207/101 (mmHg) O2 Sat by Pulse 100 100 Oximetry Oxygen Devices in Use Now: Nasal Cannula - at 2 L Appearance: 66 yo M in nAD, aAOx3 Eyes: No Scleral Icterus, PERRLA Ears/Nose/Mouth/Throat: NL Teeth, Lips, Gums, Mucous Membranes Moist Neck: NL Appearance and Movements; NL JVP, Trachea Midline Respiratory: Symmetrical Chest Expansion and Respiratory Effort, - - crackles at b/l bases Cardiovascular: NL Sounds; No Murmurs; No JVD, RRR Abdominal: - - disteneded, palpable ventral hernia, mild tenderness in epigastrium , no rebound, no guarding, BS+ Lymphatic: No Cervical Adenopathy Extremities: No Edema, No Clubbing, Cyanosis Skin: No Rash or Ulcers Neurological: Alert and Oriented x 3, NL Muscle Strength and Tone Result Diagrams: 07/01/17 05:30 07/01/17 07:34 Assess/Plan/Problems-Billing Assessment: 66 yo M with h/o ESRD, medical noncompliance presents after missing dialysis with hyperkalemia - Patient Problems (1) Hyperkalemia Comment: Patient admitted with K+ 7 and who refused Kayexalate and Ca gluconate- the result was bradycardia and K of 7.9 this aM. S/p HD today, but refused to have his potassium rechecked after dialysis. SW consult pending Due to h/o noncompliance with dialysis and frequent hospital stays, Dr. Mendoza was asked to see pt from palliative care-pt refused to be seen. He has been seen at [facility] for approx 28 visits this year. (2) Bradycardia Comment: Pacer was oversensing T's and was adjusted by josy Palma to monitor (3) Abdominal pain Comment: Suspect this may be a chronic complaint. Patient with hx chronic abdominal pain. CT abd shows no caute abnormality (4) Hypertensive urgency Comment: Off Labetalol gtt, refusing PO meds, will restart gtt (5) ESRF (end stage renal failure) Comment: HD (6) Troponin I above reference range Comment: 0.06.Troponin chronically elevated due to ESRD. (7) DVT prophylaxis Comment: SQ heparin Status and Disposition: OBV will be changed to inpatient due to continuation of extremely high BP
[2017-07-01 18:03] LABS: Calcium 9.4 mg/dL (8.6-10.3); EGFR African American 5.8 (>60); EGFR Non-African American 4.5 (>60); Potassium 5.8 mmol/L (3.5-5.0)
[2017-07-01] MEDS ORDERED: Sodium Polystyrene ORAL.SOL* 15 GM/60 ML BTL PO ONE (18:08)
--- NOTE | 2017-07-02 01:18 | CARD ---
DEFIBRILLATOR INTERROGATION AND REPROGRAMMING: DATE OF INTERROGATION AND REPROGRAMMING: Today, 07/01/17 - ROOM #ICU-04 INDICATION: The patient has a defibrillator reprogramed in February to a lower rate of 40 beats a minute. On the monitor this morning, he showed ventricular pacing at 30 beats of minute in the setting of hyperkalemia. The device was interrogated and confirms he has a [employer] Visia AF MRI compatible device model #HEA34D3 serial #[id number]. Kris programming VVI at 40. Tachy programming VF is on at rates of 220 beats a minute or greater with ATP initially followed by defibrillator at 30 joules, then 35 joules x5. Fast VT and VT zones are off. Interrogation of the device revealed that he did confirm that at 5:56 this morning, interrogation showed he had been in congestive heart failure with a high OptiVol index in September and March of this year, but not currently. He is in normal sinus rhythm 99% of the time. No recent AF episodes. Intracardiac electrogram show that he does sense T-waves and he has documented episodes of T- wave oversensing leading to ventricular pacing at 30 beats a minute. To summarize, the ICD shows normal function. Actually, the kris pacing at 30 beats a minute is due to oversensing of T-waves. The device was therefore reprogramed from biventricular pacing tip-to-tip to biventricular pacing tip-to - coil. RV sensitivity was changed from 0.3 millivolts to 0.45 millivolts. The lower rates of pacing remained at 40 beats a minute and detection treatment for ventricular dysrhythmias was less unchanged. [id number]/[facility] #: [id number] STEPHANIE
[2017-07-02] MEDS: Heparin VIAL(*) 5000 UNITS/ML VIAL (FIVE THOUSAND) SUBCUT SCH ×3 (06:33→21:53)
[2017-07-02] MEDS: Carvedilol TAB* 25 MG PO SCH ×2 (08:16→20:14)
[2017-07-02] MEDS: hydrALAZINE TAB* 25 MG PO SCH ×3 (08:16→20:59)
[2017-07-02] MEDS: Furosemide TAB* 20 MG PO SCH (08:16)
[2017-07-02] MEDS: Gabapentin CAP(*) 300 MG PO SCH ×3 (08:23→20:59)
--- NOTE | 2017-07-02 08:23 | ED ---
Higinio Briones Thomas, scribed for Steven Kowalski MD on 06/30/17 at 1441 . HPI Chest Pain - HPI Summary HPI Summary: The pt is a 66 y/o M presenting to the ED c/o R-sided chest pain as well as pain all over his back that began today. However, he is inconsistent with the location of his pain. Today, he went to Dr. Acosta (in [place]) office to have his port-a-cath removed because the patient says it was no longer need. It is unclear whether or not his pain is associated with this removal, as he has chronic pain over his sternum. He also complains of pains with breathing and fever every now and then. He has an AV Fistula that was put in last month and is now being used for dialysis. He was a patient at [facility] yesterday and he has many prior visits. At home, he takes Oxycontin 15mg at home, though it is unclear whether he takes more or less medication that directed. PMHx: CHF, HTN, COPD, CRF, dialysis. PSHx: defibrillator, CABG, AV fistula. SHx: former smoker, marijuana use, no alcohol use. FHx: CVA, CAD, HTN. - History of Current Complaint Chief Complaint: EDChestPainROMI Time Seen by Provider: 06/30/17 14:11 Hx Obtained From: Patient Onset/Duration: Started Days Ago - onset today, Still Present Timing: Constant Current Severity: Severe Pain Intensity: 10 Pain Scale Used: 0-10 Numeric Chest Pain Location: Discrete at: - R-sided Chest Pain Radiates: No Aggravating Factor(s): Nothing Alleviating Factor(s): Nothing Associated Signs and Symptoms: Positive: Chest Pain, Other: - POS: painful breathing, back pain. Negative: Fever Related History: Similar Episode/Dx as: - Many prior visits - Additional Pertinent History Primary Care Physician: YARIEL - Allergy/Home Medications Allergies/Adverse Reactions: Allergies Allergy/AdvReac Type Severity Reaction Status Date / Time Aspirin Allergy Unknown See Comment Verified 03/09/17 14:01 Hydromorphone [From Dilaudid] AdvReac Intermediate Nausea And Verified 03/09/17 14:01 Vomiting Home Medications: Home Medications Albuterol HFA INHALER* [Ventolin HFA Inhaler*] 2 puff INH Q4H PRN 06/30/17 [ History Confirmed 06/30/17] Albuterol Sulfate 1.25 mg INH QID 06/30/17 [History Confirmed 06/30/17] B-Complex W/ C & Folic Acid [Parul-Dameon Rx] 1 tab PO DAILY 06/30/17 [History Confirmed 06/30/17] Calcium Acetate CAP* [Phoslo CAP*] 1,334 mg PO TID WITH MEALS 06/30/17 [History Confirmed 06/30/17] Carvedilol TAB* [Coreg TAB*] 25 mg PO BID WITH MEALS 06/30/17 [History Confirmed 06/30/17] Cyclobenzaprine (NF) [Cyclobenzaprine 5 MG (NF)] 5 mg PO Q8HR PRN 06/30/17 [ History Confirmed 06/30/17] Diclofenac 1% GEL (NF) [Voltaren 1% GEL (NF)] 1 applic TOPICAL BID PRN 06/30/17 [History Confirmed 06/30/17] Folic Acid TAB* [Folvite TAB*] 0.5 mg PO DAILY 06/30/17 [History Confirmed 06/30] Furosemide TAB* [Lasix TAB*] 20 mg PO DAILY 06/30/17 [History Confirmed 06/30/17 ] Meclizine TAB* [Antivert 12.5 TAB*] 25 mg PO Q8HR PRN 06/30/17 [History Confirmed 06/30/17] Ondansetron TAB* [Zofran 4 MG Tab*] 4 mg PO Q8HR PRN 06/30/17 [History Confirmed 06/30/17] Ranitidine TAB (NF) [Zantac TAB (NF)] 150 mg PO DAILY 06/30/17 [History Confirmed 06/30/17] Simethicone CHEW TAB* [Mylicon*] 80 mg PO Q8HR PRN 06/30/17 [History Confirmed 06/30/17] Simvastatin [Zocor 5 MG-] 5 mg PO DAILY 06/30/17 [History Confirmed 06/30/17] hydrALAZINE TAB* [Apresoline TAB*] 25 mg PO TID 06/30/17 [History Confirmed 10/04] PMH/Surg Hx/FS Hx/Imm Hx Previously Healthy: No Endocrine/Hematology History: Reports: Hx Blood Transfusions, Hx Sickle Cell Disease - Was told had sickle cell at one point but denies, Hx Anemia Denies: Hx Anticoagulant Therapy, Hx Bone Marrow Disease, Hx Diabetes, Hx Thyroid Disease Cardiovascular History: Reports: Hx Angina, Hx Auto Implanted Cardiovert Defib, Hx Congestive Heart Failure, Hx Coronary Artery Disease, Hx Hypertension, Hx Pacemaker/ICD, Hx Peripheral Vascular Disease, Hx Syncope, Other Cardiovascular Problems/Disorders - cardiomegaly, mitral valve and tricuspid valve repair Denies: Hx Cardiomegaly, Hx Hypercholesterolemia, Hx Myocardial Infarction, Hx Rheumatic Fever, Hx Valvular Heart Disease Respiratory History: Reports: Hx Asthma, Hx Chronic Obstructive Pulmonary Disease (COPD), Hx Pleural Effusion, Hx Pneumonia, Other Respiratory Problems/ Disorders Denies: Hx Pulmonary Edema, Hx Pulmonary Embolism, Hx Sleep Apnea GI History: Reports: Hx Cirrhosis, Hx Gastroesophageal Reflux Disease, Hx Ulcer - peptic ulcer, Other GI Disorders - hep C Denies: Hx Crohn's Disease, Hx Hiatal Hernia, Hx Irritable Bowel, Hx Jaundice History: Reports: Hx Acute Renal Failure, Hx Chronic Renal Failure, Hx Dialysis, Hx Renal Disease, Other Problems/Disorders - end stage renal disease, on dialysis Denies: Hx Kidney Infection, Hx Kidney Stones Musculoskeletal History: Reports: Hx Arthritis, Hx Back Problems - chronic pain , Hx Orthopedic Injury Denies: Hx Rheumatoid Arthritis, Hx Bursitis, Hx Tendonitis, Other Musculoskeletal History Sensory History: Reports: Hx Contacts or Glasses, Hx Glaucoma, Hx Vision Problem Denies: Hx Cataracts, Hx Hearing Aid Opthamlomology History: Reports: Hx Contacts or Glasses, Hx Glaucoma, Hx Vision Problem Denies: Hx Cataracts Neurological History: Reports: Hx Headaches, Hx Migraine, Other Neuro Impairments/Disorders - depression Denies: Hx Dementia, Hx Seizures Psychiatric History: Reports: Hx Anxiety, Hx Depression Denies: Hx Eating Disorder, Hx Panic Disorder, Hx Suicide Attempt, Hx of Violent Episodes Against Others, Hx Substance Abuse - Cancer History Hx Chemotherapy: No Hx Radiation Therapy: No Hx Palliative Cancer Treatment: No - Surgical History Surgery Procedure, Year, and Place: HERNIA REPAIR 2012. APPENDECTOMY 2000. LEFT ARM AV FISTULA/CAD - REMOVED. CABG 1 vessel, mitral & tricuspid valve repair March 02, 2014 AT [facility] CONDITIONAL 5 UPTO 3T. POWER PORT. Mitral and tricuspid valve repair Hx Anesthesia Reactions: No - Immunization History Date of Tetanus Vaccine: 2014 Date of Influenza Vaccine: Fall 2015 Infectious Disease History: Reports: Hx Hepatitis - Hep C, Hx of Known/ Suspected MRSA, History Other Infectious Disease - Hepatitis C Denies: Hx Clostridium Difficile, Hx Human Immunodeficiency Virus (HIV), Hx Shingles, Hx Tuberculosis, Hx Known/Suspected VRE, Hx Known/Suspected VRSA, Traveled Outside the [place] in Last 30 Days - Family History Known Family History: Positive: Cardiac Disease, Hypertension, Other - CVA - Social History Alcohol Use: None Alcohol Amount: former EtOH abuse Hx Substance Use: Yes Substance Use Type: Reports: Marijuana Substance Use Comment - Amount & Last Used: today Hx Tobacco Use: Yes Smoking Status (MU): Former Smoker Type: Cigarettes Amount Used/How Often: 1/2 ppd Length of Time of Smoking/Using Tobacco: 10 years Have You Smoked in the Last Year: No Review of Systems Positive: Fever Negative: Erythema - eyes Negative: Ear Ache Positive: Chest Pain - R-sided Positive: Other - POS: painful breathing. Negative: Shortness Of Breath, Cough Negative: Abdominal Pain, Vomiting, Nausea Negative: dysuria, hematuria Positive: Other - POS: back pain. Negative: Myalgia, Edema - leg Negative: Rash Neurological: Other - NEG: dizziness All Other Systems Reviewed And Are Negative: Yes Physical Exam - Summary Physical Exam Summary: He is inconsistent with the location of his pain. Constitutional: Well-developed, Well-nourished, Alert. (-) Distressed Skin: Warm, Dry HENT: Normocephalic; Atraumatic Eyes: Conjunctiva normal Neck: Musculoskeletal ROM normal neck. (-) JVD, (-) Stridor, (-) Tracheal deviation Cardio: Rhythm regular, rate normal, Heart sounds normal; Intact distal pulses; The pedal pulses are 2+ and symmetric. Radial pulses are 2+ and symmetric. (-) Murmur Pulmonary/Chest wall: Effort normal. (-) Respiratory distress, (-) Wheezes, (-) Rales Abd: Soft, (-) Tenderness, (-) Distension, (-) Guarding, (-) Rebound Musculoskeletal: (-) Edema Lymph: (-) Cervical adenopathy Neuro: Alert, Oriented x3 Psych: Mood and affect Normal Triage Information Reviewed: Yes Vital Signs On Initial Exam: Initial Vitals Temp Pulse Resp BP Pulse Ox 98.6 F 75 20 216/184 100 06/30/17 13:13 06/30/17 13:13 06/30/17 13:13 06/30/17 13:13 06/30/17 13:13 Vital Signs Reviewed: Yes - Yale Coma Scale Coma Scale Total: 15 Diagnostics - Vital Signs Vital Signs Temp Pulse Resp BP Pulse Ox 06/30/17 13:45 97.0 F 73 17 158/104 100 06/30/17 13:13 98.6 F 75 20 216/184 100 - Laboratory Lab Results: Lab Results 06/30/17 06/30/17 06/30/17 Range/Units 15:29 15:29 15:29 WBC 4.3 (3.5-10.8) 10^3/ul RBC 3.31 L (4.0-5.4) 10^6/ul Hgb 9.6 L (14.0-18.0) g/dl Hct 30 L (42-52) % MCV 89 (80-94) fL MCH 29 (27-31) pg MCHC 32 (31-36) g/dl RDW 18 H (10.5-15) % Plt Count 131 L (150-450) 10^3/ul MPV 8 (7.4-10.4) um3 Neut % (Auto) 67.3 (38-83) % Lymph % (Auto) 18.1 L (25-47) % [place] % (Auto) 12.5 H (1-9) % Eos % (Auto) 1.0 (0-6) % Baso % (Auto) 1.1 (0-2) % Absolute Neuts (auto) 2.9 (1.5-7.7) 10^3/ul Absolute Lymphs (auto) 0.8 L (1.0-4.8) 10^3/ul Absolute Monos (auto) 0.5 (0-0.8) 10^3/ul Absolute Eos (auto) 0 (0-0.6) 10^3/ul Absolute Basos (auto) 0 (0-0.2) 10^3/ul Absolute Nucleated RBC 0.01 10^3/ul Nucleated RBC % 0.1 Sodium 137 (133-145) mmol/L Potassium 7.0 H* (3.5-5.0) mmol/L Chloride 93 L (101-111) mmol/L Carbon Dioxide 33 H (22-32) mmol/L Anion Gap 11 (2-11) mmol/L BUN 70 H (6-24) mg/dL Creatinine 13.60 H (0.67-1.17) mg/dL Est GFR ( Amer) 4.8 (>60) Est GFR (Non-Af Amer) 3.7 (>60) BUN/Creatinine Ratio 5.1 L (8-20) Glucose 78 (70-100) mg/dL Lactic Acid 1.3 (0.5-2.0) mmol/L Calcium 9.3 (8.6-10.3) mg/dL Total Bilirubin 0.60 (0.2-1.0) mg/dL AST 40 H (13-39) U/L ALT 18 (7-52) U/L Alkaline Phosphatase 66 (34-104) U/L Troponin I 0.06 H* (<0.04) ng/mL Total Protein 8.6 (6.4-8.9) g/dL Albumin 4.3 (3.2-5.2) g/dL Globulin 4.3 H (2-4) g/dL Albumin/Globulin Ratio 1.0 (1-3) 06/30/17 07/01/17 07/01/17 Range/Units 17:44 05:30 05:30 WBC 3.8 (3.5-10.8) 10^3/ul RBC 2.89 L (4.0-5.4) 10^6/ul Hgb 8.5 L (14.0-18.0) g/dl Hct 26 L (42-52) % MCV 90 (80-94) fL MCH 29 (27-31) pg MCHC 33 (31-36) g/dl RDW 18 H (10.5-15) % Plt Count 107 L (150-450) 10^3/ul MPV 8 (7.4-10.4) um3 Neut % (Auto) (38-83) % Lymph % (Auto) (25-47) % [place] % (Auto) (1-9) % Eos % (Auto) (0-6) % Baso % (Auto) (0-2) % Absolute Neuts (auto) (1.5-7.7) 10^3/ul Absolute Lymphs (auto) (1.0-4.8) 10^3/ul Absolute Monos (auto) (0-0.8) 10^3/ul Absolute Eos (auto) (0-0.6) 10^3/ul Absolute Basos (auto) (0-0.2) 10^3/ul Absolute Nucleated RBC 10^3/ul Nucleated RBC % Sodium 136 132 L (133-145) mmol/L Potassium 7.0 H* TNP (3.5-5.0) mmol/L Chloride 93 L 94 L (101-111) mmol/L Carbon Dioxide 32 27 (22-32) mmol/L Anion Gap 11 11 (2-11) mmol/L BUN 71 H 76 H (6-24) mg/dL Creatinine 13.39 H 13.67 H (0.67-1.17) mg/dL Est GFR ( Amer) 4.8 4.7 (>60) Est GFR (Non-Af Amer) 3.8 3.7 (>60) BUN/Creatinine Ratio 5.3 L 5.6 L (8-20) Glucose 88 106 H (70-100) mg/dL Lactic Acid (0.5-2.0) mmol/L Calcium 9.2 8.9 (8.6-10.3) mg/dL Total Bilirubin (0.2-1.0) mg/dL AST (13-39) U/L ALT (7-52) U/L Alkaline Phosphatase (34-104) U/L Troponin I 0.06 H* (<0.04) ng/mL Total Protein (6.4-8.9) g/dL Albumin (3.2-5.2) g/dL Globulin (2-4) g/dL Albumin/Globulin Ratio (1-3) 07/01/17 Range/Units 07:34 WBC (3.5-10.8) 10^3/ul RBC (4.0-5.4) 10^6/ul Hgb (14.0-18.0) g/dl Hct (42-52) % MCV (80-94) fL MCH (27-31) pg MCHC (31-36) g/dl RDW (10.5-15) % Plt Count (150-450) 10^3/ul MPV (7.4-10.4) um3 Neut % (Auto) (38-83) % Lymph % (Auto) (25-47) % [place] % (Auto) (1-9) % Eos % (Auto) (0-6) % Baso % (Auto) (0-2) % Absolute Neuts (auto) (1.5-7.7) 10^3/ul Absolute Lymphs (auto) (1.0-4.8) 10^3/ul Absolute Monos (auto) (0-0.8) 10^3/ul Absolute Eos (auto) (0-0.6) 10^3/ul Absolute Basos (auto) (0-0.2) 10^3/ul Absolute Nucleated RBC 10^3/ul Nucleated RBC % Sodium 134 (133-145) mmol/L Potassium 7.9 H* (3.5-5.0) mmol/L Chloride 92 L (101-111) mmol/L Carbon Dioxide 28 (22-32) mmol/L Anion Gap 14 H (2-11) mmol/L BUN 78 H (6-24) mg/dL Creatinine 14.12 H (0.67-1.17) mg/dL Est GFR ( Amer) 4.6 (>60) Est GFR (Non-Af Amer) 3.5 (>60) BUN/Creatinine Ratio 5.5 L (8-20) Glucose 91 (70-100) mg/dL Lactic Acid (0.5-2.0) mmol/L Calcium 9.1 (8.6-10.3) mg/dL Total Bilirubin (0.2-1.0) mg/dL AST (13-39) U/L ALT (7-52) U/L Alkaline Phosphatase (34-104) U/L Troponin I (<0.04) ng/mL Total Protein (6.4-8.9) g/dL Albumin (3.2-5.2) g/dL Globulin (2-4) g/dL Albumin/Globulin Ratio (1-3) Result Diagrams: 07/01/17 05:30 07/01/17 17:06 Lab Statement: Any lab studies that have been ordered have been reviewed, and results considered in the medical decision making process. - CT CTA Chest/Thorax CT Interpretation: No Acute Changes - CTA Chest/Thorax shows 1. No CT evidence of acute pulmonary embolic disease. 2. Cardiomegaly with interstitial edema. 3. Bibasilar atelectasis. Chronic consolidative change medial left lung base. ED Physician has reviewed this report and agrees. CT Interpretation Completed By: Radiologist - EKG 15:41 Cardiac Rate: NL EKG Interpretation: Peaked T waves. No STEMI. Chest Pain Course/Dx - Course Assessment/Plan: The pt is a 66 y/o M presenting to the ED c/o R-sided chest pain as well as pain all over his back that began today. However, he is inconsistent with the location of his pain. Today, he went to Dr. Acosta (in [place]) office to have his port-a-cath removed because the patient says it was no longer need. It is unclear whether or not his pain is associated with this removal, as he has chronic pain over his sternum. He also complains of pains with breathing and fever every now and then. He has an AV Fistula that was put in last month and is now being used for dialysis. He was a patient at [facility] yesterday and he has many prior visits. At home, he takes Oxycontin 15mg at home , though it is unclear whether he takes more or less medication that directed. PMHx: CHF, HTN, COPD, CRF, dialysis. PSHx: defibrillator, CABG, AV fistula. SHx : former smoker, marijuana use, no alcohol use. FHx: CVA, CAD, HTN. In the ED course the patient was given Albuterol, Morphine, NTG, Zofran, and Sodium polystyrene. Bloodwork shows RBC 3.31, Hgb 9.6, Hct 30, Plt 131, potassium 7.0, chloride 93, CO2 33, BUN 70, creatinine 13.6, AST 40, Troponin 0.06. EKG shows peaked T wave with no STEMI. CTA Chest/Thorax shows 1. No CT evidence of acute pulmonary embolic disease. 2. Cardiomegaly with interstitial edema. 3. Bibasilar atelectasis. Chronic consolidative change medial left lung base. ED Physician has reviewed this report and agrees. I consulted with Dr. Dalal, machine dyer, at 17:59. Dr. Marques, hospitalist, admits the patient to [facility] at 17: 33. - Diagnoses Provider Diagnoses: Hyperkalemia, Interstitial edema - Provider Notifications Discussed Care Of Patient With: Kim Marques Time Discussed With Above Provider: 17:33 Instructed by Provider To: Other - Dr. Marques, hospitalist, admits the patient to [facility] at 17:33. I consulted with Dr. Dalal, machine dyer, at 17:59. - Critical Care Time Critical Care Time: 30-74 min Discharge - Discharge Plan Condition: Guarded Disposition: ADMITTED TO [facility] documentation as recorded by the Higinio casey Thomas accurately reflects the service I personally performed and the decisions made by me, Steven Kowalski MD.
[2017-07-02] MEDS: Citalopram TAB* 20 MG PO SCH (08:24)
[2017-07-02] MEDS: Folic Acid TAB* 1 MG PO SCH (08:25)
[2017-07-02] MEDS: Omeprazole CAP* 20 MG PO SCH ×2 (08:58→18:33)
[2017-07-02] MEDS: Docusate CAP* 100 MG PO SCH ×3 (08:59→21:53)
[2017-07-02] MEDS: Cinacalcet TAB* 30 MG PO SCH (08:59)
[2017-07-02] MEDS: amLODIPine TAB* 5 MG PO SCH (08:59)
[2017-07-02] MEDS: oxyCODONE TAB* 5 MG TAB PO PRN ×3 (09:04→20:59)
[2017-07-02] MEDS: Calcium Acetate CAP* 667 MG PO SCH ×4 (09:04→17:30)
[2017-07-02 09:06] LABS: BUN/Creatinine Ratio 5.6 (8-20); Calcium 9.3 mg/dL (8.6-10.3); EGFR African American 5.3 (>60); EGFR Non-African American 4.1 (>60)
[2017-07-02 09:07] LABS: Potassium 6.7 mmol/L (3.5-5.0)
[2017-07-02] MEDS ORDERED: Sodium Polystyrene ORAL.SOL* 15 GM/60 ML BTL PO ONE (10:47)
--- NOTE | 2017-07-02 12:13 | PN ---
Subjective Date of Service: 07/02/17 Interval History: Mr. Templeton only reports diarrhea as a complaint today. He does report that he has abdominal pain is falling asleep during conversation with me and states, "oh , it will get better." He denies chest pain, SOB, or nausea. He is tolerating oral intake well. He is cooperating to have blood drawn as needed and for medication administration. Objective Active Medications: Albuterol (Ventolin 2.5 Mg/3 Ml Neb.Joanna*) 1.25 mg INH QID SO Albuterol (Ventolin Hfa Inhaler*) 2 puff INH Q4H PRN Amlodipine Besylate (Norvasc Tab*) 10 mg PO DAILY SO Calcium Acetate (Phoslo Cap*) 1,334 mg PO TID WITH MEALS SO Carvedilol (Coreg Tab*) 25 mg PO BID WITH MEALS SO Cinacalcet (Sensipar Tab*) 30 mg PO DAILY SO Citalopram Hydrobromide (Celexa Tab*) 20 mg PO DAILY SO Docusate Sodium (Colace Cap*) 100 mg PO BID SO Folic Acid (Folvite Tab*) 0.5 mg PO DAILY SO Furosemide (Lasix Tab*) 20 mg PO DAILY SO Gabapentin (Neurontin Cap(*)) 300 mg PO TID SO Heparin Sodium (Porcine) (Heparin Vial(*)) 5,000 units SUBCUT Q8HR SO Hydralazine HCl (Apresoline Tab*) 25 mg PO TID SO Labetalol HCl 200 mg/ Sodium (Chloride) 200 mls @ 60 mls/hr IVPB .(Initial Rate ) SO Lorazepam (Ativan Tab(*)) 0.5 mg PO Q6HR PRN Meclizine HCl (Antivert Tab*) 25 mg PO Q8HR PRN Omeprazole (Prilosec Cap*) 40 mg PO BID AC SO Ondansetron HCl (Zofran Inj*) 4 mg IV Q6H PRN Oxycodone HCl (Roxycodone Tab*) 15 mg PO Q6H PRN Simethicone (Mylicon*) 80 mg PO Q8HR PRN Sodium Polystyrene Sulfonate (Kayexalate Oral.Joanna*) 30 gm PO 1700 SO Trazodone HCl (Desyrel Tab*) 100 mg PO BEDTIME SO Zolpidem Tartrate (Ambien Tab*) 10 mg PO BEDTIME PRN Vital Signs 07/01/17 07/01/17 07/01/17 16:15 16:49 17:00 Temperature Pulse Rate 70 70 67 Respiratory 15 12 0 Rate Blood Pressure 187/153 216/113 229/111 (mmHg) O2 Sat by Pulse 100 98 100 Oximetry 07/01/17 07/01/17 07/01/17 17:31 17:54 18:00 Temperature Pulse Rate 70 68 68 Respiratory 13 30 38 Rate Blood Pressure 186/143 208/108 (mmHg) O2 Sat by Pulse 99 99 99 Oximetry 07/01/17 07/01/17 07/01/17 18:01 18:25 18:30 Temperature Pulse Rate Respiratory 15 18 9 Rate Blood Pressure 202/162 190/115 186/112 (mmHg) O2 Sat by Pulse Oximetry 07/01/17 07/01/17 07/01/17 18:45 19:00 19:15 Temperature Pulse Rate 68 68 68 Respiratory 8 10 8 Rate Blood Pressure 185/112 179/116 180/113 (mmHg) O2 Sat by Pulse 100 99 99 Oximetry 07/01/17 07/01/17 07/01/17 20:00 20:15 21:00 Temperature 97.8 F Pulse Rate 70 69 69 Respiratory 12 12 7 Rate Blood Pressure 161/102 191/113 174/114 (mmHg) O2 Sat by Pulse 99 97 Oximetry 07/01/17 07/01/17 07/01/17 21:09 21:15 21:30 Temperature Pulse Rate 67 62 Respiratory 12 12 11 Rate Blood Pressure 166/102 165/106 (mmHg) O2 Sat by Pulse 98 98 Oximetry 07/01/17 07/01/17 07/01/17 21:45 22:00 22:15 Temperature Pulse Rate 64 68 68 Respiratory 7 9 7 Rate Blood Pressure 161/106 170/115 149/99 (mmHg) O2 Sat by Pulse 95 99 97 Oximetry 07/01/17 07/01/17 07/01/17 22:30 22:45 23:00 Temperature Pulse Rate 68 65 64 Respiratory 9 10 7 Rate Blood Pressure 153/88 136/95 126/85 (mmHg) O2 Sat by Pulse 97 97 97 Oximetry 07/01/17 07/01/17 07/01/17 23:15 23:30 23:45 Temperature 98.4 F Pulse Rate 62 62 65 Respiratory 7 6 12 Rate Blood Pressure 134/82 132/88 137/85 (mmHg) O2 Sat by Pulse 97 98 99 Oximetry 07/01/17 07/02/17 07/02/17 23:50 00:00 00:06 Temperature Pulse Rate 62 61 Respiratory 6 10 10 Rate Blood Pressure 143/86 (mmHg) O2 Sat by Pulse 98 97 Oximetry 07/02/17 07/02/17 07/02/17 00:15 00:30 00:45 Temperature Pulse Rate 62 62 62 Respiratory 6 12 7 Rate Blood Pressure 141/81 130/78 133/79 (mmHg) O2 Sat by Pulse 98 97 97 Oximetry 07/02/17 07/02/17 07/02/17 01:00 01:15 01:30 Temperature Pulse Rate 63 62 64 Respiratory 7 10 10 Rate Blood Pressure 130/85 133/79 143/91 (mmHg) O2 Sat by Pulse 95 96 95 Oximetry 07/02/17 07/02/17 07/02/17 01:45 02:00 02:30 Temperature Pulse Rate 63 63 63 Respiratory 10 13 7 Rate Blood Pressure 146/90 140/88 149/88 (mmHg) O2 Sat by Pulse 97 96 97 Oximetry 07/02/17 07/02/17 07/02/17 03:00 03:30 04:00 Temperature 97.3 F Pulse Rate 63 62 64 Respiratory 7 7 10 Rate Blood Pressure 146/91 155/97 155/93 (mmHg) O2 Sat by Pulse 96 96 96 Oximetry 07/02/17 07/02/17 07/02/17 04:30 05:00 05:30 Temperature Pulse Rate 65 64 64 Respiratory 10 8 6 Rate Blood Pressure 156/101 156/106 165/91 (mmHg) O2 Sat by Pulse 95 97 96 Oximetry 07/02/17 07/02/17 07/02/17 06:00 06:30 07:00 Temperature Pulse Rate 64 66 64 Respiratory 12 9 8 Rate Blood Pressure 159/102 162/95 146/85 (mmHg) O2 Sat by Pulse 94 95 96 Oximetry 07/02/17 07/02/17 07/02/17 07:30 07:46 08:00 Temperature 98.1 F Pulse Rate 64 65 Respiratory 8 8 Rate Blood Pressure 141/86 160/98 (mmHg) O2 Sat by Pulse 96 95 Oximetry 07/02/17 07/02/1707/02/17 08:21 08:30 08:46 Temperature Pulse Rate 72 72 Respiratory 20 16 15 Rate Blood Pressure 168/108 167/100 (mmHg) O2 Sat by Pulse 100 95 Oximetry 07/02/17 07/02/17 07/02/17 09:00 09:01 09:10 Temperature Pulse Rate 71 73 Respiratory 27 21 23 Rate Blood Pressure 174/103 (mmHg) O2 Sat by Pulse 93 92 Oximetry 07/02/17 07/02/17 07/02/17 09:30 10:00 10:05 Temperature Pulse Rate 72 77 Respiratory 16 20 Rate Blood Pressure 161/86 144/94 (mmHg) O2 Sat by Pulse 88 83 Oximetry 07/02/17 07/02/17 07/02/17 10:30 11:00 11:30 Temperature Pulse Rate 71 68 66 Respiratory Rate Blood Pressure 134/85 124/85 117/85 (mmHg) O2 Sat by Pulse 84 92 92 Oximetry 07/02/17 07/02/17 07/02/17 11:51 11:52 12:00 Temperature 98.5 F Pulse Rate Respiratory 18 15 Rate Blood Pressure 132/86 (mmHg) O2 Sat by Pulse Oximetry 07/02/17 12:03 Temperature Pulse Rate Respiratory 16 Rate Blood Pressure (mmHg) O2 Sat by Pulse Oximetry Oxygen Devices in Use Now: Nasal Cannula - at 2 L Appearance: Male lying in bed in NAD Eyes: No Scleral Icterus Ears/Nose/Mouth/Throat: Mucous Membranes Moist Neck: Trachea Midline Respiratory: Symmetrical Chest Expansion and Respiratory Effort, Clear to Auscultation Cardiovascular: NL Sounds; No Murmurs; No JVD, No Edema Abdominal: NL Sounds; No Tenderness; No Distention Lymphatic: No Cervical Adenopathy Extremities: No Edema Skin: No Rash or Ulcers Neurological: NL Muscle Strength and Tone, - - Falling asleep during my conversation but awakens easily and is oriented x 3 Nutrition: Taking PO's Result Diagrams: 07/01/17 05:30 07/02/17 08:44 Additional Lab and Data: Lab Results 06/30/17 06/30/17 06/30/17 Range/Units 15:29 15:29 15:29 WBC 4.3 (3.5-10.8) 10^3/ul RBC 3.31 L (4.0-5.4) 10^6/ul Hgb 9.6 L (14.0-18.0) g/dl Hct 30 L (42-52) % MCV 89 (80-94) fL MCH 29 (27-31) pg MCHC 32 (31-36) g/dl RDW 18 H (10.5-15) % Plt Count 131 L (150-450) 10^3/ul MPV 8 (7.4-10.4) um3 Neut % (Auto) 67.3 (38-83) % Lymph % (Auto) 18.1 L (25-47) % [place] % (Auto) 12.5 H (1-9) % Eos % (Auto) 1.0 (0-6) % Baso % (Auto) 1.1 (0-2) % Absolute Neuts (auto) 2.9 (1.5-7.7) 10^3/ul Absolute Lymphs (auto) 0.8 L (1.0-4.8) 10^3/ul Absolute Monos (auto) 0.5 (0-0.8) 10^3/ul Absolute Eos (auto) 0 (0-0.6) 10^3/ul Absolute Basos (auto) 0 (0-0.2) 10^3/ul Absolute Nucleated RBC 0.01 10^3/ul Nucleated RBC % 0.1 Sodium 137 (133-145) mmol/L Potassium 7.0 H* (3.5-5.0) mmol/L Chloride 93 L (101-111) mmol/L Carbon Dioxide 33 H (22-32) mmol/L Anion Gap 11 (2-11) mmol/L BUN 70 H (6-24) mg/dL Creatinine 13.60 H (0.67-1.17) mg/dL Est GFR ( Amer) 4.8 (>60) Est GFR (Non-Af Amer) 3.7 (>60) BUN/Creatinine Ratio 5.1 L (8-20) Glucose 78 (70-100) mg/dL Lactic Acid 1.3 (0.5-2.0) mmol/L Calcium 9.3 (8.6-10.3) mg/dL Total Bilirubin 0.60 (0.2-1.0) mg/dL AST 40 H (13-39) U/L ALT 18 (7-52) U/L Alkaline Phosphatase 66 (34-104) U/L Troponin I 0.06 H* (<0.04) ng/mL Total Protein 8.6 (6.4-8.9) g/dL Albumin 4.3 (3.2-5.2) g/dL Globulin 4.3 H (2-4) g/dL Albumin/Globulin Ratio 1.0 (1-3) 06/30/17 07/01/17 07/01/17 Range/Units 17:44 05:30 05:30 WBC 3.8 (3.5-10.8) 10^3/ul RBC 2.89 L (4.0-5.4) 10^6/ul Hgb 8.5 L (14.0-18.0) g/dl Hct 26 L (42-52) % MCV 90 (80-94) fL MCH 29 (27-31) pg MCHC 33 (31-36) g/dl RDW 18 H (10.5-15) % Plt Count 107 L (150-450) 10^3/ul MPV 8 (7.4-10.4) um3 Neut % (Auto) (38-83) % Lymph % (Auto) (25-47) % [place] % (Auto) (1-9) % Eos % (Auto) (0-6) % Baso % (Auto) (0-2) % Absolute Neuts (auto) (1.5-7.7) 10^3/ul Absolute Lymphs (auto) (1.0-4.8) 10^3/ul Absolute Monos (auto) (0-0.8) 10^3/ul Absolute Eos (auto) (0-0.6) 10^3/ul Absolute Basos (auto) (0-0.2) 10^3/ul Absolute Nucleated RBC 10^3/ul Nucleated RBC % Sodium 136 132 L (133-145) mmol/L Potassium 7.0 H* TNP (3.5-5.0) mmol/L Chloride 93 L 94 L (101-111) mmol/L Carbon Dioxide 32 27 (22-32) mmol/L Anion Gap 11 11 (2-11) mmol/L BUN 71 H 76 H (6-24) mg/dL Creatinine 13.39 H 13.67 H (0.67-1.17) mg/dL Est GFR ( Amer) 4.8 4.7 (>60) Est GFR (Non-Af Amer) 3.8 3.7 (>60) BUN/Creatinine Ratio 5.3 L 5.6 L (8-20) Glucose 88 106 H (70-100) mg/dL Lactic Acid (0.5-2.0) mmol/L Calcium 9.2 8.9 (8.6-10.3) mg/dL Total Bilirubin (0.2-1.0) mg/dL AST (13-39) U/L ALT (7-52) U/L Alkaline Phosphatase (34-104) U/L Troponin I 0.06 H* (<0.04) ng/mL Total Protein (6.4-8.9) g/dL Albumin (3.2-5.2) g/dL Globulin (2-4) g/dL Albumin/Globulin Ratio (1-3) 07/01/17 Range/Units 07:34 WBC (3.5-10.8) 10^3/ul RBC (4.0-5.4) 10^6/ul Hgb (14.0-18.0) g/dl Hct (42-52) % MCV (80-94) fL MCH (27-31) pg MCHC (31-36) g/dl RDW (10.5-15) % Plt Count (150-450) 10^3/ul MPV (7.4-10.4) um3 Neut % (Auto) (38-83) % Lymph % (Auto) (25-47) % [place] % (Auto) (1-9) % Eos % (Auto) (0-6) % Baso % (Auto) (0-2) % Absolute Neuts (auto) (1.5-7.7) 10^3/ul Absolute Lymphs (auto) (1.0-4.8) 10^3/ul Absolute Monos (auto) (0-0.8) 10^3/ul Absolute Eos (auto) (0-0.6) 10^3/ul Absolute Basos (auto) (0-0.2) 10^3/ul Absolute Nucleated RBC 10^3/ul Nucleated RBC % Sodium 134 (133-145) mmol/L Potassium 7.9 H* (3.5-5.0) mmol/L Chloride 92 L (101-111) mmol/L Carbon Dioxide 28 (22-32) mmol/L Anion Gap 14 H (2-11) mmol/L BUN 78 H (6-24) mg/dL Creatinine 14.12 H (0.67-1.17) mg/dL Est GFR ( Amer) 4.6 (>60) Est GFR (Non-Af Amer) 3.5 (>60) BUN/Creatinine Ratio 5.5 L (8-20) Glucose 91 (70-100) mg/dL Lactic Acid (0.5-2.0) mmol/L Calcium 9.1 (8.6-10.3) mg/dL Total Bilirubin (0.2-1.0) mg/dL AST (13-39) U/L ALT (7-52) U/L Alkaline Phosphatase (34-104) U/L Troponin I (<0.04) ng/mL Total Protein (6.4-8.9) g/dL Albumin (3.2-5.2) g/dL Globulin (2-4) g/dL Albumin/Globulin Ratio (1-3) Assess/Plan/Problems-Billing Assessment: Mr Templeton is a 66 yo M with h/o ESRD, medical noncompliance presents after missing dialysis with hyperkalemia. - Patient Problems (1) Acute hyperkalemia Comment: - K 5.8 after dialysis but now 6.7. - Discussed case with Dr. Dalal. Plan for additional doses of kayexalate and to restrict diet to 2000mg K+. - Dialysis per routine in AM. (2) Bradycardia Comment: - Pacer was oversensing T's and was adjusted by Dr. Marques. - Cont to monitor in ICU. (3) Hypertensive urgency Comment: - Resume home meds as patient is willing to take them today. - D/C labetalol gtt. (4) Abdominal pain Comment: - Patient with hx chronic abdominal pain. - Suspect related to missing dialysis. - CT abd on arrival with no acute concerning changes. (5) Anemia Comment: - H/H near baseline. Continue to monitor. (6) Troponin I above reference range Comment: - 0.06. - Troponin chronically elevated due to ESRD. No further workup indicated. (7) ESRF (end stage renal failure) Current Visit: No Status: Acute Code(s): N18.6 - END STAGE RENAL DISEASE SNOMED Code(s): 45442522 Comment: HD (8) DVT prophylaxis Comment: - SQ heparin. Status and Disposition: Inpatient with persistent hyperkalemia. Anticipate discharge to home after dialysis tomorrow.
[2017-07-02 16:06] LABS: BUN/Creatinine Ratio 5.5 (8-20); Calcium 8.9 mg/dL (8.6-10.3); EGFR Non-African American 3.9 (>60)
[2017-07-02 16:12] LABS: Potassium 6.7 mmol/L (3.5-5.0)
[2017-07-02] MEDS ORDERED: Sodium Polystyrene ORAL.SOL* 15 GM/60 ML BTL PO SCH (17:00)
[2017-07-02] MEDS: Albuterol 2.5 MG/3 ML NEB.SOL* (0.083%) INH SCH ×2 (17:33→17:59)
[2017-07-02] MEDS ORDERED: Albuterol 2.5 MG/3 ML NEB.SOL* (0.083%) INH SCH (18:34)
[2017-07-02] MEDS: traZODone TAB* 50 MG TAB PO SCH (20:59)
[2017-07-03] MEDS ORDERED: Albuterol 2.5 MG/3 ML NEB.SOL* (0.083%) INH PRN (05:16)
[2017-07-03] MEDS: Heparin VIAL(*) 5000 UNITS/ML VIAL (FIVE THOUSAND) SUBCUT SCH (06:27)
[2017-07-03 06:44] LABS: Hematocrit 26 % (42-52); Hemoglobin 8.3 g/dl (14.0-18.0)
[2017-07-03 06:56] LABS: BUN/Creatinine Ratio 5.6 (8-20); Calcium 8.3 mg/dL (8.6-10.3); EGFR African American 4.6 (>60); EGFR Non-African American 3.6 (>60)
[2017-07-03] MEDS ORDERED: Albuterol 2.5 MG/3 ML NEB.SOL* (0.083%) INH SCH (07:00)
--- NOTE | 2017-07-03 08:01 | PN ---
Subjective Date of Service: 07/03/17 Interval History: Mr. Templeton complains of abdominal pain this morning and states, "I need something stronger." He denies other complaint including chest pain, SOB, or nausea. Objective Active Medications: Albuterol (Ventolin Hfa Inhaler*) 2 puff INH Q4H PRN Albuterol (Ventolin 2.5 Mg/3 Ml Neb.Joanna*) 2.5 mg INH Q4H PRN Amlodipine Besylate (Norvasc Tab*) 10 mg PO DAILY SO Calcium Acetate (Phoslo Cap*) 1,334 mg PO TID WITH MEALS SO Carvedilol (Coreg Tab*) 25 mg PO BID WITH MEALS SO Cinacalcet (Sensipar Tab*) 30 mg PO DAILY SO Citalopram Hydrobromide (Celexa Tab*) 20 mg PO DAILY SO Docusate Sodium (Colace Cap*) 100 mg PO BID SO Folic Acid (Folvite Tab*) 0.5 mg PO DAILY SO Furosemide (Lasix Tab*) 20 mg PO DAILY SO Gabapentin (Neurontin Cap(*)) 300 mg PO TID SO Heparin Sodium (Porcine) (Heparin Vial(*)) 5,000 units SUBCUT Q8HR SO Hydralazine HCl (Apresoline Tab*) 25 mg PO TID SO Lorazepam (Ativan Tab(*)) 0.5 mg PO Q6HR PRN Meclizine HCl (Antivert Tab*) 25 mg PO Q8HR PRN Omeprazole (Prilosec Cap*) 40 mg PO BID AC SO Ondansetron HCl (Zofran Inj*) 4 mg IV Q6H PRN Oxycodone HCl (Roxycodone Tab*) 15 mg PO Q6H PRN Simethicone (Mylicon*) 80 mg PO Q8HR PRN Trazodone HCl (Desyrel Tab*) 100 mg PO BEDTIME SO Zolpidem Tartrate (Ambien Tab*) 10 mg PO BEDTIME PRN Vital Signs 07/02/17 07/02/17 07/02/17 08:00 08:21 08:30 Temperature Pulse Rate 65 72 Respiratory 8 20 16 Rate Blood Pressure 160/98 168/108 (mmHg) O2 Sat by Pulse 95 100 Oximetry 07/02/17 07/02/17 07/02/17 08:46 09:00 09:01 Temperature Pulse Rate 72 71 73 Respiratory 15 27 21 Rate Blood Pressure 167/100 174/103 (mmHg) O2 Sat by Pulse 95 93 92 Oximetry 07/02/17 07/02/17 07/02/17 09:10 09:30 10:00 Temperature Pulse Rate 72 77 Respiratory 23 16 Rate Blood Pressure 161/86 144/94 (mmHg) O2 Sat by Pulse 88 83 Oximetry 07/02/17 07/02/17 07/02/17 10:05 10:30 11:00 Temperature Pulse Rate 71 68 Respiratory 20 Rate Blood Pressure 134/85 124/85 (mmHg) O2 Sat by Pulse 84 92 Oximetry 07/02/17 07/02/17 07/02/17 11:30 11:51 11:52 Temperature 98.5 F Pulse Rate 66 Respiratory 18 Rate Blood Pressure 117/85 (mmHg) O2 Sat by Pulse 92 Oximetry 07/02/17 07/02/17 07/02/17 12:00 12:03 12:35 Temperature Pulse Rate 67 Respiratory 15 16 23 Rate Blood Pressure 132/86 138/87 (mmHg) O2 Sat by Pulse 95 Oximetry 07/02/17 07/02/17 07/02/17 13:00 13:30 14:00 Temperature Pulse Rate 66 63 69 Respiratory 9 5 13 Rate Blood Pressure 121/76 135/80 145/94 (mmHg) O2 Sat by Pulse 97 94 96 Oximetry 07/02/17 07/02/17 07/02/17 14:07 14:30 15:00 Temperature Pulse Rate 66 Respiratory 16 17 18 Rate Blood Pressure 130/89 126/77 (mmHg) O2 Sat by Pulse 92 Oximetry 07/02/17 07/02/17 07/02/17 15:19 15:25 15:30 Temperature 97.9 F Pulse Rate Respiratory 16 13 Rate Blood Pressure 129/80 (mmHg) O2 Sat by Pulse Oximetry 07/02/17 07/02/17 07/02/17 16:00 16:30 16:43 Temperature Pulse Rate Respiratory 15 6 14 Rate Blood Pressure 116/81 103/69 (mmHg) O2 Sat by Pulse Oximetry 07/02/17 07/02/17 07/02/17 17:00 17:08 17:30 Temperature Pulse Rate Respiratory 12 8 7 Rate Blood Pressure 109/68 110/74 (mmHg) O2 Sat by Pulse Oximetry 07/02/17 07/02/17 07/02/17 18:00 18:07 18:30 Temperature Pulse Rate Respiratory 10 10 7 Rate Blood Pressure 107/78 112/74 (mmHg) O2 Sat by Pulse Oximetry 07/02/17 07/02/17 07/02/17 19:00 19:10 19:19 Temperature 100.2 F Pulse Rate 64 Respiratory 6 12 Rate Blood Pressure 108/74 (mmHg) O2 Sat by Pulse 100 Oximetry 07/02/17 07/02/17 07/02/17 19:31 20:00 20:30 Temperature Pulse Rate 66 Respiratory 16 17 Rate Blood Pressure 142/90 139/87 140/82 (mmHg) O2 Sat by Pulse 96 Oximetry 07/02/17 07/02/17 07/02/17 20:41 21:00 21:30 Temperature Pulse Rate Respiratory 16 17 8 Rate Blood Pressure 140/82 115/73 (mmHg) O2 Sat by Pulse Oximetry 07/02/17 07/02/17 07/02/17 21:58 22:00 22:32 Temperature Pulse Rate Respiratory 18 13 10 Rate Blood Pressure 118/73 131/77 (mmHg) O2 Sat by Pulse Oximetry 07/02/17 07/02/17 07/02/17 23:00 23:30 23:45 Temperature Pulse Rate Respiratory 10 14 8 Rate Blood Pressure 125/79 122/75 (mmHg) O2 Sat by Pulse Oximetry 07/02/17 07/03/17 07/03/17 23:47 00:00 00:30 Temperature 99.9 F Pulse Rate Respiratory 16 14 23 Rate Blood Pressure 126/80 117/72 (mmHg) O2 Sat by Pulse Oximetry 07/03/17 07/03/17 07/03/17 01:00 01:30 02:00 Temperature Pulse Rate Respiratory 16 8 10 Rate Blood Pressure 115/73 89/54 88/53 (mmHg) O2 Sat by Pulse Oximetry 07/03/17 07/03/17 07/03/17 02:30 03:00 03:30 Temperature Pulse Rate Respiratory 8 10 13 Rate Blood Pressure 109/67 109/66 105/70 (mmHg) O2 Sat by Pulse Oximetry 07/03/17 07/03/17 07/03/17 03:47 04:00 05:00 Temperature 99.2 F Pulse Rate 60 60 Respiratory 10 9 9 Rate Blood Pressure (mmHg) O2 Sat by Pulse 97 97 Oximetry 07/03/17 07/03/17 05:44 06:00 Temperature Pulse Rate 60 Respiratory 9 6 Rate Blood Pressure (mmHg) O2 Sat by Pulse 95 Oximetry Oxygen Devices in Use Now: None - at 2 L Appearance: Male lying in bed in NAD Eyes: No Scleral Icterus Ears/Nose/Mouth/Throat: Mucous Membranes Moist Neck: Trachea Midline Respiratory: Symmetrical Chest Expansion and Respiratory Effort, Clear to Auscultation Cardiovascular: NL Sounds; No Murmurs; No JVD, No Edema Abdominal: NL Sounds; No Tenderness; No Distention Lymphatic: No Cervical Adenopathy Extremities: No Edema Skin: No Rash or Ulcers Neurological: Alert and Oriented x 3, NL Muscle Strength and Tone Nutrition: Taking PO's Result Diagrams: 07/03/17 06:30 07/03/17 06:30 Additional Lab and Data: Lab Results 06/30/17 06/30/17 06/30/17 Range/Units 15:29 15:29 15:29 WBC 4.3 (3.5-10.8) 10^3/ul RBC 3.31 L (4.0-5.4) 10^6/ul Hgb 9.6 L (14.0-18.0) g/dl Hct 30 L (42-52) % MCV 89 (80-94) fL MCH 29 (27-31) pg MCHC 32 (31-36) g/dl RDW 18 H (10.5-15) % Plt Count 131 L (150-450) 10^3/ul MPV 8 (7.4-10.4) um3 Neut % (Auto) 67.3 (38-83) % Lymph % (Auto) 18.1 L (25-47) % [place] % (Auto) 12.5 H (1-9) % Eos % (Auto) 1.0 (0-6) % Baso % (Auto) 1.1 (0-2) % Absolute Neuts (auto) 2.9 (1.5-7.7) 10^3/ul Absolute Lymphs (auto) 0.8 L (1.0-4.8) 10^3/ul Absolute Monos (auto) 0.5 (0-0.8) 10^3/ul Absolute Eos (auto) 0 (0-0.6) 10^3/ul Absolute Basos (auto) 0 (0-0.2) 10^3/ul Absolute Nucleated RBC 0.01 10^3/ul Nucleated RBC % 0.1 Sodium 137 (133-145) mmol/L Potassium 7.0 H* (3.5-5.0) mmol/L Chloride 93 L (101-111) mmol/L Carbon Dioxide 33 H (22-32) mmol/L Anion Gap 11 (2-11) mmol/L BUN 70 H (6-24) mg/dL Creatinine 13.60 H (0.67-1.17) mg/dL Est GFR ( Amer) 4.8 (>60) Est GFR (Non-Af Amer) 3.7 (>60) BUN/Creatinine Ratio 5.1 L (8-20) Glucose 78 (70-100) mg/dL Lactic Acid 1.3 (0.5-2.0) mmol/L Calcium 9.3 (8.6-10.3) mg/dL Total Bilirubin 0.60 (0.2-1.0) mg/dL AST 40 H (13-39) U/L ALT 18 (7-52) U/L Alkaline Phosphatase 66 (34-104) U/L Troponin I 0.06 H* (<0.04) ng/mL Total Protein 8.6 (6.4-8.9) g/dL Albumin 4.3 (3.2-5.2) g/dL Globulin 4.3 H (2-4) g/dL Albumin/Globulin Ratio 1.0 (1-3) 06/30/17 07/01/17 07/01/17 Range/Units 17:44 05:30 05:30 WBC 3.8 (3.5-10.8) 10^3/ul RBC 2.89 L (4.0-5.4) 10^6/ul Hgb 8.5 L (14.0-18.0) g/dl Hct 26 L (42-52) % MCV 90 (80-94) fL MCH 29 (27-31) pg MCHC 33 (31-36) g/dl RDW 18 H (10.5-15) % Plt Count 107 L (150-450) 10^3/ul MPV 8 (7.4-10.4) um3 Neut % (Auto) (38-83) % Lymph % (Auto) (25-47) % [place] % (Auto) (1-9) % Eos % (Auto) (0-6) % Baso % (Auto) (0-2) % Absolute Neuts (auto) (1.5-7.7) 10^3/ul Absolute Lymphs (auto) (1.0-4.8) 10^3/ul Absolute Monos (auto) (0-0.8) 10^3/ul Absolute Eos (auto) (0-0.6) 10^3/ul Absolute Basos (auto) (0-0.2) 10^3/ul Absolute Nucleated RBC 10^3/ul Nucleated RBC % Sodium 136 132 L (133-145) mmol/L Potassium 7.0 H* TNP (3.5-5.0) mmol/L Chloride 93 L 94 L (101-111) mmol/L Carbon Dioxide 32 27 (22-32) mmol/L Anion Gap 11 11 (2-11) mmol/L BUN 71 H 76 H (6-24) mg/dL Creatinine 13.39 H 13.67 H (0.67-1.17) mg/dL Est GFR ( Amer) 4.8 4.7 (>60) Est GFR (Non-Af Amer) 3.8 3.7 (>60) BUN/Creatinine Ratio 5.3 L 5.6 L (8-20) Glucose 88 106 H (70-100) mg/dL Lactic Acid (0.5-2.0) mmol/L Calcium 9.2 8.9 (8.6-10.3) mg/dL Total Bilirubin (0.2-1.0) mg/dL AST (13-39) U/L ALT (7-52) U/L Alkaline Phosphatase (34-104) U/L Troponin I 0.06 H* (<0.04) ng/mL Total Protein (6.4-8.9) g/dL Albumin (3.2-5.2) g/dL Globulin (2-4) g/dL Albumin/Globulin Ratio (1-3) 07/01/ Range/Units 07:34 WBC (3.5-10.8) 10^3/ul RBC (4.0-5.4) 10^6/ul Hgb (14.0-18.0) g/dl Hct (42-52) % MCV (80-94) fL MCH (27-31) pg MCHC (31-36) g/dl RDW (10.5-15) % Plt Count (150-450) 10^3/ul MPV (7.4-10.4) um3 Neut % (Auto) (38-83) % Lymph % (Auto) (25-47) % [place] % (Auto) (1-9) % Eos % (Auto) (0-6) % Baso % (Auto) (0-2) % Absolute Neuts (auto) (1.5-7.7) 10^3/ul Absolute Lymphs (auto) (1.0-4.8) 10^3/ul Absolute Monos (auto) (0-0.8) 10^3/ul Absolute Eos (auto) (0-0.6) 10^3/ul Absolute Basos (auto) (0-0.2) 10^3/ul Absolute Nucleated RBC 10^3/ul Nucleated RBC % Sodium 134 (133-145) mmol/L Potassium 7.9 H* (3.5-5.0) mmol/L Chloride 92 L (101-111) mmol/L Carbon Dioxide 28 (22-32) mmol/L Anion Gap 14 H (2-11) mmol/L BUN 78 H (6-24) mg/dL Creatinine 14.12 H (0.67-1.17) mg/dL Est GFR ( Amer) 4.6 (>60) Est GFR (Non-Af Amer) 3.5 (>60) BUN/Creatinine Ratio 5.5 L (8-20) Glucose 91 (70-100) mg/dL Lactic Acid (0.5-2.0) mmol/L Calcium 9.1 (8.6-10.3) mg/dL Total Bilirubin (0.2-1.0) mg/dL AST (13-39) U/L ALT (7-52) U/L Alkaline Phosphatase (34-104) U/L Troponin I (<0.04) ng/mL Total Protein (6.4-8.9) g/dL Albumin (3.2-5.2) g/dL Globulin (2-4) g/dL Albumin/Globulin Ratio (1-3) Assess/Plan/Problems-Billing Assessment: Mr Templeton is a 66 yo M with h/o ESRD, medical noncompliance presents after missing dialysis with hyperkalemia. - Patient Problems (1) Acute hyperkalemia Comment: - K 6.0 after kayexalate yesterday. - Plan for routine dialysis today. (2) Bradycardia Comment: - HR 60s. - Pacer was oversensing T's and was adjusted by Dr. Marques. (3) Hypertensive urgency Comment: - Resolved. - Continue home meds. (4) Abdominal pain Comment: - Patient with hx chronic abdominal pain. - Suspect related to missing dialysis. - CT abd on arrival with no acute concerning changes. - Continue oxycodone per routine. (5) Anemia Comment: - H/H near baseline. Continue to monitor. (6) Troponin I above reference range Comment: - 0.06. - Troponin chronically elevated due to ESRD. No further workup indicated. (7) ESRF (end stage renal failure) Comment: - Continue HD per recommendations per Dr. Dalal. (8) DVT prophylaxis Comment: - SQ heparin. Status and Disposition: Inpatient with persistent hyperkalemia. Anticipate discharge to home after dialysis today.
[2017-07-03] MEDS ORDERED: amLODIPine TAB* 5 MG PO SCH (09:00)
[2017-07-03] MEDS ORDERED: Heparin DIALYSIS ONLY(*) 1,000 UNITS/ML VIAL DIALYSIS ONE (11:00)
[2017-07-03] MEDS ORDERED: Epoetin Alfa* 10,000 UNITS/ML VIAL IV ONE (11:00)
[2017-07-03] MEDS: hydrALAZINE TAB* 25 MG PO SCH (12:47)
[2017-07-03] MEDS: Gabapentin CAP(*) 300 MG PO SCH (12:47)
[2017-07-03] MEDS: Citalopram TAB* 20 MG PO SCH (12:47)
[2017-07-03] MEDS: Folic Acid TAB* 1 MG PO SCH (12:48)
[2017-07-03] MEDS: Furosemide TAB* 20 MG PO SCH (12:48)
[2017-07-03] MEDS: amLODIPine TAB* 5 MG PO SCH (12:48)
[2017-07-03] MEDS: Omeprazole CAP* 20 MG PO SCH (12:55)
[2017-07-03] MEDS: Carvedilol TAB* 25 MG PO SCH (12:56)
[2017-07-03] MEDS: Cinacalcet TAB* 30 MG PO SCH (12:56)
[2017-07-03] MEDS: Calcium Acetate CAP* 667 MG PO SCH (12:56)
[2017-07-03] MEDS: Docusate CAP* 100 MG PO SCH (12:56)
[2017-07-03 13:07] VITALS: BP 150/72
--- NOTE | 2017-07-04 02:18 | DS ---
CC: Dr. Vargas; Dr. Dalal * [facility] MEDICINE DISCHARGE SUMMARY: DATE OF ADMISSION: 06/30/17 DATE OF DISCHARGE: 07/03/17 PRIMARY CARE PROVIDER: Dr. Vargas ATTENDING PHYSICIAN: Dr. Jose Alberto White * (dictation provided by Concepcion Barnes NP). PRIMARY DIAGNOSES: 1. Hyperkalemia. 2. Abdominal pain, chronic. 3. Bradycardia, with pacemaker adjustment and resolution. SECONDARY DIAGNOSES: 1. End-stage renal disease, on hemodialysis Thursday, Thursday, and Thursday. 2. Hypertension. 3. Coronary artery disease, status post coronary artery bypass graft in the past. 4. History of peripheral vascular disease. 5. History of internal jugular venous thrombosis, February 2017. 6. History of gastroesophageal reflux disease. 7. Hepatitis C. 8. History of anemia. 9. History of chronic pain (abdominal and chest pain). 10. History of mitral valve annuloplasty and tricuspid valve repair in 2013. 11. Status post ICD placement by Dr. Lei in 2015. 12. History of cardiomyopathy with recent echo showing 40% ejection fraction. MEDICATIONS: At the time of discharge, there are no medication changes. 1. Ambien 10 mg at bedtime p.r.n. 2. Trazodone 100 mg at bedtime. 3. Simvastatin 5 mg p.o. daily. 4. Simethicone 80 mg q.8 hours p.r.n. 5. Zantac 150 mg daily. 6. Vitamin B complex 1 tablet daily. 7. PhosLo 1334 mg t.i.d.. 8. Oxycodone 15 mg q.6 hours p.r.n. 9. Zofran 4 mg q.8 hours p.r.n. 10. Omeprazole 40 mg p.o. b.i.d. 11. Nitroglycerin as needed. 12. Meclizine as needed. 13. Hydralazine 25 mg p.o. 3 times a day. 14. Lorazepam 0.5 mg as needed. 15. Gabapentin 300 mg 3 times a day. 16. Furosemide 20 mg daily. 17. Folic acid 0.5 mg daily. 18. Lexapro 10 mg p.o. daily. 19. Colace 100 mg p.o. b.i.d. 20. Voltaren gel 1% apply topically as needed. 21. Flexeril 5 mg as needed. 22. Sensipar 30 mg daily. 23. Coreg 25 mg p.o. b.i.d. 24. Amlodipine 10 mg a day. 25. Albuterol inhaler 2 puffs q.4 hours p.r.n. HOSPITAL COURSE: Mr. Pato Templeton is a 66-year-old male with a known history of end- stage renal disease and chronic medical noncompliance as well as hypertension, who presented to the hospital, on 06/30/17, with concern for abdominal pain. Mr. Templeton reported that he had missed dialysis. He is frequently noncompliant with treatment. In the emergency room, he was found to have potassium of 7. He complained of diffuse abdominal pain, which happens typically when he misses dialysis. However, he did have a chest/thorax CTA, which showed the following: "No CT evidence of acute pulmonary embolic disease" and an abdomen and pelvis CT, which showed the following: "Cardiomegaly with prior cardiothoracic surgery, chronic left basilar consolidative changes, mild bowel distention without acute change, atrophic kidneys." Mr. Templeton had dialysis on 07/01/17, this initially corrected his potassium to 5.8; however, by the following morning, his potassium was up to 6.7, it was not clear why his potassium had risen so dramatically overnight. Regardless, he was monitored in the hospital and treated with Kayexalate. By this morning, his potassium is down to 6.0. He is scheduled to have dialysis again today, which will be per his routine and then be discharged home. Mr. Templeton's only complaint today is abdominal pain, again this is a chronic complaint. He is asking for additional oxycodone, but based on his history of misuse of oxycodone, I am not planning to prescribe any additional oxycodone. I will check I-STOP, but this can be managed by his primary care physician, Dr. Vargas. DISPOSITION: Home. DIET: Renal. ACTIVITY: As tolerated. FOLLOWUP PLANS: 1. Please follow up with Dr. Vargas per routine within the next week. 2. Please follow up with Dr. Dalal per routine within the next week. TIME SPENT: Approximately 60 minutes was spent in the discharge of this patient ; more than half of the time was spent with the patient at the bedside, reviewing the events leading up to this hospitalization, performing the physical examination, and reviewing my plan of care. CONCEPCION BARNES NP [id number]/[facility] #: [id number] STEPHANIE
== END 2017-07-03 13:20 | disposition home or self-care (01) | DRG 640 ==
LOC: ED 12:46 → ICU 17:33 → OBSVTOIN 07-01 16:07
PROVIDERS: ADMIT Internal Medicine; ATTEND Internal Medicine
PROC: 5A1D60Z (ICD-10-PCS; principal; 2017-07-01)
PROC: 4A02XFZ Measurement of Cardiac Rhythm, External Approach (ICD-10-PCS; 2017-07-01)
DX: E87.5 Hyperkalemia (principal); N18.6 End stage renal disease; I42.9 Cardiomyopathy, unspecified; I13.11 Hypertensive heart and chronic kidney disease without heart failure, with stage 5 chronic kidney disease, or end stage renal disease; I16.0 Hypertensive urgency; I25.10 Atherosclerotic heart disease of native coronary artery without angina pectoris; R00.1 Bradycardia, unspecified; I73.9 Peripheral vascular disease, unspecified; K21.9 Gastro-esophageal reflux disease without esophagitis; B19.20 Unspecified viral hepatitis C without hepatic coma; G89.29 Other chronic pain; Z95.810 Presence of automatic (implantable) cardiac defibrillator; Z95.1 Presence of aortocoronary bypass graft; Z99.2 Dependence on renal dialysis; Z91.15 Patient's noncompliance with renal dialysis; Z79.891 Long term (current) use of opiate analgesic; Z79.899 Other long term (current) drug therapy; Z88.6 Allergy status to analgesic agent; Z91.09 Other allergy status, other than to drugs and biological substances; Z82.3 Family history of stroke; Z82.49 Family history of ischemic heart disease and other diseases of the circulatory system; Z87.891 Personal history of nicotine dependence; Z91.14 Patient's other noncompliance with medication regimen; D64.9 Anemia, unspecified
CPT/HCPCS: 36415; 71010; 71275; 74176; 80048; 80053; 83605; 84484; 85014; 85018; 85025; 85027; 87040; 87077; 87150; 87205; 90935; 93005; 94640; 94760; A9270-GY; G0257; G0378; J0610; J0885; J1644; J2060; J2270; J2405; Q9967

== ENCOUNTER 2017-07-27 14:40 | Emergency (ER) | payer MEDICARE, MEDICAID ==
[2017-07-27] MEDS ORDERED: Nitroglycerin TAB 0.4 MG* 0.4 MG TAB SL ONE (16:26)
[2017-07-27 16:49] LABS: Hematocrit 26 % (42-52); Hemoglobin 8.4 g/dl (14.0-18.0); Mean Corpuscular HGB Conc 33 g/dl (31-36); Mean Corpuscular Hemoglobin 29 pg (27-31); Mean Corpuscular Volume 88 fL (80-94); Mean Platelet Volume 8 um3 (7.4-10.4); Red Blood Count 2.89 10^6/ul (4.0-5.4); Red Cell Distribution Width 18 % (10.5-15); White Blood Count 3.7 10^3/ul (3.5-10.8)
--- NOTE | 2017-07-27 16:51 | RAD ---
Indication: Chest pain. Cardiomyopathy. Congestive heart failure. Chronic obstructive pulmonary disease. Comparison: June 30, [address] June 29, 2017 chest radiograph. Technique: Upright AP 1632 hours Report: Median sternotomy wires, mediastinal vascular clips, RIGHT ventricular level pacemaker leads. Cardiomegaly. Prominent ill-defined central pulmonary vasculature and perihilar alveolar opacities. Small pleural effusions. Mild prominence of the mid to inferior interstitial markings. Negative for pneumothorax. IMPRESSION: Alveolar and interstitial pulmonary edema similar to the prior exam.
[2017-07-27 17:06] LABS: Albumin 4.1 g/dL (3.2-5.2); BUN/Creatinine Ratio 3.2 (8-20); Calcium 8.8 mg/dL (8.6-10.3); EGFR African American 9.8 (>60); EGFR Non-African American 7.6 (>60); Globulin 3.9 g/dL (2-4); Magnesium 2.2 mg/dL (1.9-2.7); Potassium 4.4 mmol/L (3.5-5.0); Total Bilirubin 0.6 mg/dL (0.2-1.0)
[2017-07-27 17:10] LABS: Troponin I 0.04 ng/mL (<0.04)
[2017-07-27 17:32] VITALS: BP 210/124
--- NOTE | 2017-07-28 02:19 | ED ---
Jenny Briones Edward, scribed for Soumya Mccracken MD on 07/27/17 at 1535 . HPI Chest Pain - HPI Summary HPI Summary: 66 y/o male presents to the ED c/o CP rated 10/10 in severity at triage starting at around 09:00 this morning while on dialysis. The CP is located in the mid-sternal region described as a burning, pounding pain. The pain is aggravated with coughs and not alleviated with 2 NTG. Associated sx: cough, SOB , nausea, intermittent bilateral calf pain, bloody nasal discharge intermittently for the last few days. Pt also c/o migraine SELBY on both sides of the head rated 10/10. Pt is on dialysis 3x a week. Pt had dialysis today. Dry weight 166 lbs. Pt states he missed the last 30 minutes of his dialysis. - History of Current Complaint Chief Complaint: EDChestPainROMI Hx Obtained From: Patient Onset/Duration: Started Hours Ago, Still Present Timing: Constant Initial Severity: Severe Current Severity: Severe Pain Intensity: 10 Pain Scale Used: 0-10 Numeric Chest Pain Location: Mid Sternal Character: Burning, Pounding Aggravating Factor(s): Deep Breaths Alleviating Factor(s): Nothing Associated Signs and Symptoms: Positive: Chest Pain, Headaches, Shortness of Breath, Nausea, Cough, Calf Pain/Swelling, Other: - bloody nasal discharge intermittently. Negative: Fever - Additional Pertinent History Primary Care Physician: YARIEL - Allergy/Home Medications Allergies/Adverse Reactions: Allergies Allergy/AdvReac Type Severity Reaction Status Date / Time Aspirin Allergy Unknown See Comment Verified 07/27/17 15:31 Hydromorphone [From Dilaudid] AdvReac Intermediate Nausea And Verified 07/27/17 15:31 Vomiting PMH/Surg Hx/FS Hx/Imm Hx Previously Healthy: No Endocrine/Hematology History: Reports: Hx Blood Transfusions, Hx Sickle Cell Disease - Was told had sickle cell at one point but denies, Hx Anemia Denies: Hx Anticoagulant Therapy, Hx Bone Marrow Disease, Hx Diabetes, Hx Thyroid Disease Cardiovascular History: Reports: Hx Angina, Hx Auto Implanted Cardiovert Defib, Hx Congestive Heart Failure, Hx Coronary Artery Disease, Hx Deep Vein Thrombosis , Hx Hypertension, Hx Pacemaker/ICD, Hx Peripheral Vascular Disease, Hx Syncope , Other Cardiovascular Problems/Disorders - cardiomegaly, mitral valve and tricuspid valve repair Denies: Hx Cardiomegaly, Hx Hypercholesterolemia, Hx Myocardial Infarction, Hx Rheumatic Fever, Hx Valvular Heart Disease Respiratory History: Reports: Hx Asthma, Hx Chronic Obstructive Pulmonary Disease (COPD), Hx Pleural Effusion, Hx Pneumonia, Other Respiratory Problems/ Disorders Denies: Hx Pulmonary Edema, Hx Pulmonary Embolism, Hx Sleep Apnea GI History: Reports: Hx Cirrhosis, Hx Gastroesophageal Reflux Disease, Hx Ulcer - peptic ulcer, Other GI Disorders - hep C Denies: Hx Crohn's Disease, Hx Hiatal Hernia, Hx Irritable Bowel, Hx Jaundice History: Reports: Hx Acute Renal Failure, Hx Chronic Renal Failure, Hx Dialysis, Hx Renal Disease, Other Problems/Disorders - end stage renal disease, on dialysis Denies: Hx Kidney Infection, Hx Kidney Stones Musculoskeletal History: Reports: Hx Arthritis, Hx Back Problems - chronic pain , Hx Orthopedic Injury Denies: Hx Rheumatoid Arthritis, Hx Bursitis, Hx Tendonitis, Other Musculoskeletal History Sensory History: Reports: Hx Contacts or Glasses, Hx Glaucoma, Hx Vision Problem Denies: Hx Cataracts, Hx Hearing Aid Opthamlomology History: Reports: Hx Contacts or Glasses, Hx Glaucoma, Hx Vision Problem Denies: Hx Cataracts Neurological History: Reports: Hx Headaches, Hx Migraine, Other Neuro Impairments/Disorders - depression Denies: Hx Dementia, Hx Seizures Psychiatric History: Reports: Hx Anxiety, Hx Depression Denies: Hx Eating Disorder, Hx Panic Disorder, Hx Suicide Attempt, Hx of Violent Episodes Against Others, Hx Substance Abuse - Cancer History Hx Chemotherapy: No Hx Radiation Therapy: No Hx Palliative Cancer Treatment: No - Surgical History Surgery Procedure, Year, and Place: HERNIA REPAIR 2012. APPENDECTOMY 2000. LEFT ARM AV FISTULA/CAD - REMOVED. CABG 1 vessel, mitral & tricuspid valve repair March 02, 2014 AT [facility] CONDITIONAL 5 UPTO 3T. POWER PORT. Mitral and tricuspid valve repair Hx Anesthesia Reactions: No - Immunization History Date of Tetanus Vaccine: 2014 Date of Influenza Vaccine: Fall 2015 Infectious Disease History: Yes Infectious Disease History: Reports: Hx Hepatitis - Hep C, Hx of Known/ Suspected MRSA, History Other Infectious Disease - Hepatitis C Denies: Hx Clostridium Difficile, Hx Human Immunodeficiency Virus (HIV), Hx Shingles, Hx Tuberculosis, Hx Known/Suspected VRE, Hx Known/Suspected VRSA, Traveled Outside the [place] in Last 30 Days - Family History Known Family History: Positive: Cardiac Disease, Hypertension, Other - CVA - Social History Alcohol Use: None Alcohol Amount: former EtOH abuse Hx Substance Use: Yes Substance Use Type: Reports: Marijuana Substance Use Comment - Amount & Last Used: today Hx Tobacco Use: Yes Smoking Status (MU): Former Smoker Type: Cigarettes Amount Used/How Often: 1/2 ppd Length of Time of Smoking/Using Tobacco: 10 years Have You Smoked in the Last Year: No Review of Systems Constitutional: Negative Negative: Fever Eyes: Negative Positive: Nasal Discharge - bloody intermittently for the past few days Positive: Chest Pain Positive: Shortness Of Breath, Cough Positive: Nausea Genitourinary: Negative Positive: Myalgia - Intermittent calf pain Skin: Negative Positive: Headache Psychological: Normal All Other Systems Reviewed And Are Negative: Yes Physical Exam - Summary Physical Exam Summary: Appearance: Well-appearing, no pain distress, Well-nourished Skin: Warm, color reflects adequate perfusion Head: Normal Head/Face Eyes: Conjunctiva clear ENT: Normal Neck: Supple Respiratory: Lungs clear, Normal breath sounds, no respiratory distress Cardio: RRR, No murmur, pulses normal, brisk capillary refill Musculoskeletal: Strength Intact/ ROM intact Extremities: Fistula on R arm with good thrill and bruit Neuro: Alert, muscle tone normal, facial symmetry, tongue deviates to the L, dysarthria, furniture polisher equal, Motor function 5/5, Sensations intact, Gait WNL. Negative: speech normal, CN II-XII intact, sensory/motor intact Triage Information Reviewed: Yes Vital Signs On Initial Exam: Initial Vitals Temp Pulse Resp BP Pulse Ox 97.7 F 83 19 194/144 95 07/27/17 14:41 07/27/17 14:41 07/27/17 14:41 07/27/17 14:41 07/27/17 14:41 Vital Signs Reviewed: Yes - [place] Coma Scale Coma Scale Total: 15 Diagnostics - Vital Signs Vital Signs Temp Pulse Resp BP Pulse Ox 07/27/17 15:25 82 16 97 07/27/17 15:24 208/143 07/27/17 14:41 97.7 F 83 19 194/144 95 - Laboratory Lab Results: Lab Results 07/27/17 07/27/17 07/27/17 Range/Units 16:39 16:39 16:39 WBC (3.5-10.8) 10^3/ul RBC (4.0-5.4) 10^6/ul Hgb (14.0-18.0) g/dl Hct (42-52) % MCV (80-94) fL MCH (27-31) pg MCHC (31-36) g/dl RDW (10.5-15) % Plt Count (150-450) 10^3/ul MPV (7.4-10.4) um3 Neut % (Auto) (38-83) % Lymph % (Auto) (25-47) % Gallia % (Auto) (1-9) % Eos % (Auto) (0-6) % Baso % (Auto) (0-2) % Absolute Neuts (auto) (1.5-7.7) 10^3/ul Absolute Lymphs (auto) (1.0-4.8) 10^3/ul Absolute Monos (auto) (0-0.8) 10^3/ul Absolute Eos (auto) (0-0.6) 10^3/ul Absolute Basos (auto) (0-0.2) 10^3/ul Absolute Nucleated RBC 10^3/ul Nucleated RBC % INR (Anticoag Therapy) 1.47 H (0.89-1.11) APTT 36.5 H (26.0-36.3) seconds Sodium 136 (133-145) mmol/L Potassium 4.4 (3.5-5.0) mmol/L Chloride 94 L (101-111) mmol/L Carbon Dioxide 34 H (22-32) mmol/L Anion Gap 8 (2-11) mmol/L BUN 23 (6-24) mg/dL Creatinine 7.29 H (0.67-1.17) mg/dL Est GFR ( Amer) 9.8 (>60) Est GFR (Non-Af Amer) 7.6 (>60) BUN/Creatinine Ratio 3.2 L (8-20) Glucose 85 (70-100) mg/dL Lactic Acid (0.5-2.0) mmol/L Calcium 8.8 (8.6-10.3) mg/dL Magnesium 2.2 (1.9-2.7) mg/dL Total Bilirubin 0.60 (0.2-1.0) mg/dL AST 27 (13-39) U/L ALT 11 (7-52) U/L Alkaline Phosphatase 52 (34-104) U/L Total Creatine Kinase 154 (10-223) U/L CK-MB (CK-2) 2.5 (0.6-6.3) ng/mL Troponin I 0.04 H* (<0.04) ng/mL B-Natriuretic Peptide 6858 H ( - 100) pg/mL Total Protein 8.0 (6.4-8.9) g/dL Albumin 4.1 (3.2-5.2) g/dL Globulin 3.9 (2-4) g/dL Albumin/Globulin Ratio 1.1 (1-3) 07/27/17 07/27/17 Range/Units 16:39 16:39 WBC 3.7 (3.5-10.8) 10^3/ul RBC 2.89 L (4.0-5.4) 10^6/ul Hgb 8.4 L (14.0-18.0) g/dl Hct 26 L (42-52) % MCV 88 (80-94) fL MCH 29 (27-31) pg MCHC 33 (31-36) g/dl RDW 18 H (10.5-15) % Plt Count 119 L (150-450) 10^3/ul MPV 8 (7.4-10.4) um3 Neut % (Auto) 60.4 (38-83) % Lymph % (Auto) 21.9 L (25-47) % Gall[place] % (Auto) 14.7 H (1-9) % Eos % (Auto) 1.2 (0-6) % Baso % (Auto) 1.8 (0-2) % Absolute Neuts (auto) 2.2 (1.5-7.7) 10^3/ul Absolute Lymphs (auto) 0.8 L (1.0-4.8) 10^3/ul Absolute Monos (auto) 0.5 (0-0.8) 10^3/ul Absolute Eos (auto) 0 (0-0.6) 10^3/ul Absolute Basos (auto) 0.1 (0-0.2) 10^3/ul Absolute Nucleated RBC 0 10^3/ul Nucleated RBC % 0.1 INR (Anticoag Therapy) (0.89-1.11) APTT (26.0-36.3) seconds Sodium (133-145) mmol/L Potassium (3.5-5.0) mmol/L Chloride (101-111) mmol/L Carbon Dioxide (22-32) mmol/L Anion Gap (2-11) mmol/L BUN (6-24) mg/dL Creatinine (0.67-1.17) mg/dL Est GFR ( Amer) (>60) Est GFR (Non-Af Amer) (>60) BUN/Creatinine Ratio (8-20) Glucose (70-100) mg/dL Lactic Acid 0.9 (0.5-2.0) mmol/L Calcium (8.6-10.3) mg/dL Magnesium (1.9-2.7) mg/dL Total Bilirubin (0.2-1.0) mg/dL AST (13-39) U/L ALT (7-52) U/L Alkaline Phosphatase (34-104) U/L Total Creatine Kinase (10-223) U/L CK-MB (CK-2) (0.6-6.3) ng/mL Troponin I (<0.04) ng/mL B-Natriuretic Peptide ( - 100) pg/mL Total Protein (6.4-8.9) g/dL Albumin (3.2-5.2) g/dL Globulin (2-4) g/dL Albumin/Globulin Ratio (1-3) Result Diagrams: 07/27/17 16:39 07/27/17 16:39 Lab Statement: Any lab studies that have been ordered have been reviewed, and results considered in the medical decision making process. - Radiology CXR Xray Interpretation: No Acute Changes - Alveolar and interstitial pulmonary edema similar to the prior exam. Radiology Interpretation Completed By: Radiologist - Additional Comments Diagnostic Additional Comments: EKG - 15:11 - SR @ 81 BPM. NORMAL AV, IV and QTC. NEGATIVE AXIS. LVH. INVERTED T 's in I and aVL. DOWNSLOPING ST's IN V5 and V6, new from 07/01/17. Re-Evaluation - Re-Evaluation 1 Re-Evaluation Time: 17:13 Comment: Pt c/o of ear pain and swollen lymph nodes 2 Re-Evaluation Time: 17:30 Comment: Discuss plan of care. Pt c/o swollen lymph nodes under both ears. Last BP was 210/124 taken at 17:30. Requested pt take last BP measurement, but pt refused. Pt states "I am in pain and you're not doing anything for me". Chest Pain Course/Dx - Course Assessment/Plan: 66 y/o male presents to the ED c/o CP rated 10/10 in severity at triage starting at around 09:00 this morning while on dialysis. The CP is located in the mid-sternal region described as a burning, pounding pain. The pain is aggravated with coughs and not alleviated with 2 NTG. Associated sx: cough, SOB, nausea, intermittent bilateral calf pain, bloody nasal discharge intermittently for the last few days. Pt also c/o migraine SELBY on both sides of the head rated 10/10. Pt is on dialysis 3x a week. Pt had dialysis today. Dry weight 166 lbs. Pt states he missed the last 30 minutes of his dialysis. EKG - 15:11 - SR @ 81 BPM. NORMAL AV, IV and QTC. NEGATIVE AXIS. LVH. INVERTED T's in I and aVL. DOWNSLOPING ST's IN V5 and V6, new from 07/01/17. CXR Alveolar and interstitial pulmonary edema similar to the prior exam. Pt had a negative nuclear medicine stress test on 04/28/17 and 12/09/16. Made aware of first Troponin 0.04 at 17:12. Hospitalist will consult for inverted T waves. Discussed with Marcie Barnes and Dr. Alejandra @ 17:25. Pt had an EKG done on that was the same as it is now. Pt also had a negative stress test done then. Therefore, we believe the pt can be safely d/c home. On re-eval, pt c/o swollen lymph nodes under both ears. Last BP was 210/124 taken at 17:30. Requested pt take last BP measurement, but pt refused. Pt states "I am in pain and you're not doing anything for me". - Diagnoses Provider Diagnoses: Chest pain, End stage renal disease - Provider Notifications Discussed Care Of Patient With: Erwin Alejandra Time Discussed With Above Provider: 17:00 Instructed by Provider To: MD Will See In ED Discharge - Discharge Plan Condition: Stable Disposition: HOME Patient Education Materials: Chest Pain (ED), End Stage Kidney Disease (ED) Referrals: Marielena Vargas MD [Primary Care Provider] - 2 Days (PLEASE F/U IN 2 DAYS) Additional Instructions: PLEASE RETURN TO THE ED FOR RETURN OR WORSENING SYMPTOMS The documentation as recorded by the Jenny casey Edward accurately reflects the service I personally performed and the decisions made by , Soumya Mccracken MD.
== END 2017-07-27 17:49 | disposition home or self-care (01) ==
LOC: ED 14:40
DX: R07.9 Chest pain, unspecified (principal); R51 Headache; R06.02 Shortness of breath; R11.0 Nausea; Z87.891 Personal history of nicotine dependence
CPT/HCPCS: 36415; 71010; 80053; 82550; 82553; 83605; 83735; 83880; 84484; 85025; 85610; 85730; 93005; 99283; A9270-GY

== ENCOUNTER → 2017-07-31 00:22 | Emergency (ER) | payer MEDICARE, MEDICAID ==
[~2017-07-31 00:22] MED LIST: Albuterol/Ipratropium NEB.SOL* Albuterol 2.5 MG/Ipratropium 0.5 MG 3 ML INH ONE; Albuterol/Ipratropium NEB.SOL* Albuterol 2.5 MG/Ipratropium 0.5 MG 3 ML ONE; Morphine INJ* 4 MG/ML 1 ML CARPUJECT IM ONE; Ondansetron ODT TAB* 4 MG ONE; Ondansetron ODT TAB* 4 MG PO ONE
[2017-07-31 02:36] VITALS: BP 189/102
--- NOTE | 2017-08-01 00:39 | ED ---
Siva Briones Angela, scribed for Bonita Gongora MD on 07/31/17 at 0054 . Shortness of Breath - HPI Summary HPI Summary: This pt is a 66 y/o male presenting to [facility] c/o increased SOB, chest pain, and cough since last night. Pt reports he was seen in the ED here on 07/27/17 for the same symptoms. He states he was discharged home and was not given any pain medication. He states he has a mild headache and has mild dizziness. Pt reports little urine output but denies hematuria, dysuria. Pt denies abd pain, back pain , rashes, bruises, anxiety, depression. He states he has dialysis today 0530. PMHx: asthma, COPD, chronic renal failure. - History of Current Complaint Chief Complaint: EDShortnessOfBreath Hx Obtained From: Patient Onset/Duration: Lasting Hours Aggrevating Factors: Nothing Associated Signs & Symptoms: Cough (Nonproductive), Chest Pain w/Cough, Dizzy - Allergy/Home Medications Allergies/Adverse Reactions: Allergies Allergy/AdvReac Type Severity Reaction Status Date / Time Aspirin Allergy Unknown See Comment Verified 07/27/17 15:31 Hydromorphone [From Dilaudid] AdvReac Intermediate Nausea And Verified 07/27/17 15:31 Vomiting PMH/Surg Hx/FS Hx/Imm Hx Endocrine/Hematology History: Reports: Hx Blood Transfusions, Hx Sickle Cell Disease - Was told had sickle cell at one point but denies, Hx Anemia Denies: Hx Anticoagulant Therapy, Hx Bone Marrow Disease, Hx Diabetes, Hx Thyroid Disease Cardiovascular History: Reports: Hx Angina, Hx Auto Implanted Cardiovert Defib, Hx Congestive Heart Failure, Hx Coronary Artery Disease, Hx Deep Vein Thrombosis , Hx Hypertension, Hx Pacemaker/ICD, Hx Peripheral Vascular Disease, Hx Syncope , Other Cardiovascular Problems/Disorders - cardiomegaly, mitral valve and tricuspid valve repair Denies: Hx Cardiomegaly, Hx Hypercholesterolemia, Hx Myocardial Infarction, Hx Rheumatic Fever, Hx Valvular Heart Disease Respiratory History: Reports: Hx Asthma, Hx Chronic Obstructive Pulmonary Disease (COPD), Hx Pleural Effusion, Hx Pneumonia, Other Respiratory Problems/ Disorders Denies: Hx Pulmonary Edema, Hx Pulmonary Embolism, Hx Sleep Apnea GI History: Reports: Hx Cirrhosis, Hx Gastroesophageal Reflux Disease, Hx Ulcer - peptic ulcer, Other GI Disorders - hep C Denies: Hx Crohn's Disease, Hx Hiatal Hernia, Hx Irritable Bowel, Hx Jaundice History: Reports: Hx Acute Renal Failure, Hx Chronic Renal Failure, Hx Dialysis, Hx Renal Disease, Other Problems/Disorders - end stage renal disease, on dialysis Denies: Hx Kidney Infection, Hx Kidney Stones Musculoskeletal History: Reports: Hx Arthritis, Hx Back Problems - chronic pain , Hx Orthopedic Injury Denies: Hx Rheumatoid Arthritis, Hx Bursitis, Hx Tendonitis, Other Musculoskeletal History Sensory History: Reports: Hx Contacts or Glasses, Hx Glaucoma, Hx Vision Problem Denies: Hx Cataracts, Hx Hearing Aid Opthamlomology History: Reports: Hx Contacts or Glasses, Hx Glaucoma, Hx Vision Problem Denies: Hx Cataracts Neurological History: Reports: Hx Headaches, Hx Migraine, Other Neuro Impairments/Disorders - depression Denies: Hx Dementia, Hx Seizures Psychiatric History: Reports: Hx Anxiety, Hx Depression Denies: Hx Eating Disorder, Hx Panic Disorder, Hx Suicide Attempt, Hx of Violent Episodes Against Others, Hx Substance Abuse - Cancer History Hx Chemotherapy: No Hx Radiation Therapy: No Hx Palliative Cancer Treatment: No - Surgical History Surgery Procedure, Year, and Place: HERNIA REPAIR 2012. APPENDECTOMY 2000. LEFT ARM AV FISTULA/CAD - REMOVED. CABG 1 vessel, mitral & tricuspid valve repair March 02, 2014 AT [facility] CONDITIONAL 5 UPTO 3T. POWER PORT. Mitral and tricuspid valve repair Hx Anesthesia Reactions: No - Immunization History Date of Tetanus Vaccine: 2014 Date of Influenza Vaccine: Fall 2015 Infectious Disease History: No Infectious Disease History: Reports: Hx Hepatitis - Hep C, Hx of Known/ Suspected MRSA, History Other Infectious Disease - Hepatitis C Denies: Hx Clostridium Difficile, Hx Human Immunodeficiency Virus (HIV), Hx Shingles, Hx Tuberculosis, Hx Known/Suspected VRE, Hx Known/Suspected VRSA, Traveled Outside the [place] in Last 30 Days - Family History Known Family History: Positive: Cardiac Disease, Hypertension, Other - CVA Family History: R & N/C - Social History Alcohol Use: None Alcohol Amount: former EtOH abuse Hx Substance Use: Yes Substance Use Type: Reports: Marijuana Substance Use Comment - Amount & Last Used: today Hx Tobacco Use: Yes Smoking Status (MU): Former Smoker Type: Cigarettes Amount Used/How Often: 1/2 ppd Length of Time of Smoking/Using Tobacco: 10 years Have You Smoked in the Last Year: No Review of Systems Negative: Fever, Chills Negative: Blurred Vision Negative: Ear Ache Positive: Chest Pain - secondary to cough Positive: Shortness Of Breath, Cough Negative: Abdominal Pain Positive: other - little urine output. Negative: dysuria, hematuria Negative: Other - back pain Negative: Rash, Bruising Neurological: Other - dizziness Positive: Headache Negative: Anxious, Depressed All Other Systems Reviewed And Are Negative: Yes Physical Exam Triage Information Reviewed: Yes Vital Signs On Initial Exam: Initial Vitals Pulse Resp Pulse Ox 85 19 100 07/31/17 00:32 07/31/17 00:32 07/31/17 00:32 Vital Signs Reviewed: Yes Appearance: Positive: Well-Nourished Skin: Positive: Warm, Skin Color Reflects Adequate Perfusion, Dry Head/Face: Positive: Normal Head/Face Inspection Eyes: Positive: Normal ENT: Positive: Normal ENT inspection Neck: Positive: Supple, Nontender Respiratory/Lung Sounds: Positive: Breath Sounds Present Cardiovascular: Positive: Normal, RRR Abdomen Description: Positive: Nontender, Soft Musculoskeletal: Positive: Normal. Negative: Edema Left, Edema Right Neurological: Positive: Normal, Sensory/Motor Intact, Alert, Oriented to Person Place, Time Psychiatric: Positive: Normal - [place]ian Coma Scale Coma Scale Total: 15 Diagnostics - Vital Signs Vital Signs Temp Pulse Resp BP Pulse Ox 07/31/17 00:51 86 27 100 07/31/17 00:36 98.1 F 83 20 155/115 100 07/31/17 00:32 85 19 100 - Laboratory Lab Statement: Any lab studies that have been ordered have been reviewed, and results considered in the medical decision making process. - EKG 0146 Cardiac Rate: NL - 97 bpm EKG Rhythm: Sinus Rhythm EKG Interpretation: QTc is normal. QT is slightly prolonged. Inverted T wave in I and aVF. EKG Comparison: No Significant Change - no change from prior EKG on 07/27/17. Course/Dx - Course Assessment/Plan: Pt is a 66 y/o male presenting with increased SOB, chest pain, and cough since last night. In the ED course, the pt was given albuterol treatments, morphine, and zofran. Pt reports feeling much better after the breathing treatment. Pt will be discharged and is advised to follow up with his PCP. Pt had dialysis this morning at 0530. - Diagnoses Provider Diagnoses: COPD (chronic obstructive pulmonary disease), End stage chronic kidney disease Discharge - Discharge Plan Condition: Stable Disposition: HOME Patient Education Materials: COPD (Chronic Obstructive Pulmonary Disease) (ED) , End Stage Kidney Disease (ED) Referrals: Marielena Vargas MD [Primary Care Provider] - Additional Instructions: Keep your dialysis appt at 5:30am this morning. return if worse or any new symptoms. Return if worse or any new symptoms. The documentation as recorded by the Siva casey Angela accurately reflects the service I personally performed and the decisions made by , Bonita Gongora MD.
== END | disposition home or self-care (01) ==
LOC: ED 00:22
DX: J44.9 Chronic obstructive pulmonary disease, unspecified (principal); N18.6 End stage renal disease; R51 Headache; R05 Cough; R07.9 Chest pain, unspecified; R42 Dizziness and giddiness; Z87.891 Personal history of nicotine dependence
CPT/HCPCS: 93005; 94640; 96372; 99283; A9270-GY; J2270

== ENCOUNTER 2017-08-19 05:30 | Emergency (ER) | payer MEDICARE, MEDICAID ==
[2017-08-19] MEDS ORDERED: HYDROmorphone INJ* 2 MG/ML CARPUJECT SYRINGE IV SLOW PU ONE (08:28)
[2017-08-19] MEDS ORDERED: Ondansetron INJ* 2 MG/ML VIAL IV ONE (08:31)
[2017-08-19] MEDS ORDERED: Labetalol IV* 5 MG/ML 20 ML VIAL IV PUSH ONE (08:32)
[2017-08-19 09:12] LABS: Hematocrit 23 % (42-52); Hemoglobin 7.2 g/dl (14.0-18.0); Mean Corpuscular HGB Conc 32 g/dl (31-36); Mean Corpuscular Hemoglobin 29 pg (27-31); Mean Corpuscular Volume 93 fL (80-94); Mean Platelet Volume 8 um3 (7.4-10.4); Red Blood Count 2.47 10^6/ul (4.0-5.4); Red Cell Distribution Width 18 % (10.5-15); White Blood Count 5.7 10^3/ul (3.5-10.8)
--- NOTE | 2017-08-19 09:20 | RAD ---
INDICATION: Chest pain. COMPARISON: Comparison is made with prior study from July 27, 2017. TECHNIQUE: A portable view of the chest was obtained. FINDINGS: The patient appears to be status post coronary artery bypass surgery. There are multiple sternal sutures present. There is a transvenous pacemaker present. The heart is moderately enlarged and unchanged. There is prominence of the interstitial markings with more focal alveolar infiltrates in the mid and lower lung gruber which has progressed from the prior exam. There are small bilateral pleural effusions which also increased in size. IMPRESSION: FINDINGS MOST CONSISTENT WITH CONGESTIVE HEART FAILURE LESS LIKELY PNEUMONIA DEMONSTRATING INTERVAL PROGRESSION.
[2017-08-19 09:23] LABS: BUN/Creatinine Ratio 4.3 (8-20); Calcium 10.1 mg/dL (8.6-10.3); EGFR African American 5.6 (>60); EGFR Non-African American 4.4 (>60); Globulin 3.9 g/dL (2-4); Magnesium 2.9 mg/dL (1.9-2.7); Total Bilirubin 0.7 mg/dL (0.2-1.0); Total Protein 7.9 g/dL (6.4-8.9)
[2017-08-19 09:28] LABS: Troponin I 0.07 ng/mL (<0.04)
[2017-08-19 10:39] LABS: Potassium 6.7 mmol/L (3.5-5.0)
[2017-08-19] MEDS ORDERED: Dextrose 50% Syringe 50 ML* 25 GM/50 ML SYRINGE IV PUSH ONE (10:40)
[2017-08-19] MEDS ORDERED: Albuterol 2.5 MG/3 ML NEB.SOL* (0.083%) INH ONE (10:40)
[2017-08-19] MEDS ORDERED: Insulin REGULAR(*) 1 UNITS UNIT IV PUSH ONE (10:40)
--- NOTE | 2017-08-19 12:40 | ED ---
Siva Briones Angela, scribed for Sav Vale MD on 08/19/17 at 0749 . HPI Chest Pain - HPI Summary HPI Summary: This pt is a 67 y/o male presenting to [facility] c/o intermittent chest pain and SOB for months. Pt reports he is on dialysis 3 times a week on Mondays, Wednesdays, and Fridays. Pt was not able to make it to dialysis this morning. He states his pain is located in the middle of his chest. His pain is aggravated with coughing and deep breathing. Pt notes his pain feels like the pain he had before his bypass surgery. He has had chest pain before but he states "not like today." Pt reports he has pain when taking a deep breath. He additionally c/o cough, weakness in legs, pain in LE, nausea, vomiting, abd pain. LE pain starts from his knees down and "it feels like someone is squeezing them really hard." Pt denies fever. Pt is on anticoagulants. 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 - History of Current Complaint Chief Complaint: EDChestPainROMI Hx Obtained From: Patient Onset/Duration: Started Weeks Ago, Still Present Timing: Lasting Weeks Chest Pain Location: Mid Sternal Chest Pain Radiates: No Character: Cough, Non-Productive, Dyspnea at Rest Aggravating Factor(s): Deep Breaths, Other: - cough Alleviating Factor(s): Nothing Associated Signs and Symptoms: Positive: Chest Pain, Weakness - in LE, Shortness of Breath, Nausea, Cough, Abdominal Pain, Vomiting, Other: - LE pain. Negative: Fever - Additional Pertinent History Primary Care Physician: YARIEL - Allergy/Home Medications Allergies/Adverse Reactions: Allergies Allergy/AdvReac Type Severity Reaction Status Date / Time Aspirin Allergy Unknown See Comment Verified 08/18/17 16:40 Hydromorphone [From Dilaudid] AdvReac Intermediate Unknown Verified 08/19/17 08: 58 Reaction Details PMH/Surg Hx/FS Hx/Imm Hx Endocrine/Hematology History: Reports: Hx Blood Transfusions, Hx Sickle Cell Disease - Was told had sickle cell at one point but denies, Hx Anemia Denies: Hx Anticoagulant Therapy, Hx Bone Marrow Disease, Hx Diabetes, Hx Thyroid Disease Cardiovascular History: Reports: Hx Angina, Hx Auto Implanted Cardiovert Defib, Hx Congestive Heart Failure, Hx Coronary Artery Disease, Hx Deep Vein Thrombosis , Hx Hypertension, Hx Pacemaker/ICD, Hx Peripheral Vascular Disease, Hx Syncope , Other Cardiovascular Problems/Disorders - cardiomegaly, mitral valve and tricuspid valve repair Denies: Hx Cardiomegaly, Hx Hypercholesterolemia, Hx Myocardial Infarction, Hx Rheumatic Fever, Hx Valvular Heart Disease Respiratory History: Reports: Hx Asthma, Hx Chronic Obstructive Pulmonary Disease (COPD), Hx Pleural Effusion, Hx Pneumonia, Other Respiratory Problems/ Disorders Denies: Hx Pulmonary Edema, Hx Pulmonary Embolism, Hx Sleep Apnea GI History: Reports: Hx Cirrhosis, Hx Gastroesophageal Reflux Disease, Hx Ulcer - peptic ulcer, Other GI Disorders - hep C Denies: Hx Crohn's Disease, Hx Hiatal Hernia, Hx Irritable Bowel, Hx Jaundice History: Reports: Hx Acute Renal Failure, Hx Chronic Renal Failure, Hx Dialysis, Hx Renal Disease, Other Problems/Disorders - end stage renal disease, on dialysis Denies: Hx Kidney Infection, Hx Kidney Stones Musculoskeletal History: Reports: Hx Arthritis, Hx Back Problems - chronic pain , Hx Orthopedic Injury Denies: Hx Rheumatoid Arthritis, Hx Bursitis, Hx Tendonitis, Other Musculoskeletal History Sensory History: Reports: Hx Contacts or Glasses, Hx Glaucoma, Hx Vision Problem Denies: Hx Cataracts, Hx Hearing Aid Opthamlomology History: Reports: Hx Contacts or Glasses, Hx Glaucoma, Hx Vision Problem Denies: Hx Cataracts Neurological History: Reports: Hx Headaches, Hx Migraine, Other Neuro Impairments/Disorders - depression Denies: Hx Dementia, Hx Seizures Psychiatric History: Reports: Hx Anxiety, Hx Depression Denies: Hx Eating Disorder, Hx Panic Disorder, Hx Suicide Attempt, Hx of Violent Episodes Against Others, Hx Substance Abuse - Cancer History Hx Chemotherapy: No Hx Radiation Therapy: No Hx Palliative Cancer Treatment: No - Surgical History Surgery Procedure, Year, and Place: HERNIA REPAIR 2012. APPENDECTOMY 2000. LEFT ARM AV FISTULA/CAD - REMOVED. CABG 1 vessel, mitral & tricuspid valve repair March 02, 2014 AT [facility] CONDITIONAL 5 UPTO 3T. POWER PORT. Mitral and tricuspid valve repair Hx Anesthesia Reactions: No - Immunization History Date of Tetanus Vaccine: 2014 Date of Influenza Vaccine: Fall 2015 Infectious Disease History: Reports: Hx Hepatitis - Hep C, Hx of Known/ Suspected MRSA, History Other Infectious Disease - Hepatitis C Denies: Hx Clostridium Difficile, Hx Human Immunodeficiency Virus (HIV), Hx Shingles, Hx Tuberculosis, Hx Known/Suspected VRE, Hx Known/Suspected VRSA, Traveled Outside the [place] in Last 30 Days - Family History Known Family History: Positive: Cardiac Disease, Hypertension, Other - CVA - Social History Alcohol Use: None Alcohol Amount: former EtOH abuse Hx Substance Use: Yes Substance Use Type: Reports: Marijuana Substance Use Comment - Amount & Last Used: today Hx Tobacco Use: Yes Smoking Status (MU): Former Smoker Type: Cigarettes Amount Used/How Often: 1/2 ppd Length of Time of Smoking/Using Tobacco: 10 years Have You Smoked in the Last Year: No Review of Systems Negative: Fever, Chills Positive: Chest Pain Positive: Shortness Of Breath, Cough Positive: Abdominal Pain, Vomiting, Nausea Positive: Other - LE pain Positive: Weakness - in LE All Other Systems Reviewed And Are Negative: Yes Physical Exam - Summary Physical Exam Summary: Appearance: Well-appearing, Well-nourished Skin: Warm Eyes: Normal ENT: Normal Neck: Supple, nontender Respiratory: Diminished breath sounds bilaterally. Chest: Diffuse tenderness. Cardiovascular: Normal heart sounds Abdomen: Soft. Diffuse tenderness Bowel: Normal bowel sounds Musculoskeletal: Normal, Strength/ROM Intact. Fistula on R arm. Diffuse tenderness in LE from the knees down. Mild pedal edema 1+. Neurological: Normal, A&Ox3 Psychiatric: Normal Triage Information Reviewed: Yes Vital Signs On Initial Exam: Initial Vitals Pulse Pulse Ox 94 94 08/19/17 05:56 08/19/17 05:56 Vital Signs Reviewed: Yes - [place] Coma Scale Coma Scale Total: 15 Diagnostics - Vital Signs Vital Signs Pulse Resp BP Pulse Ox 08/19/17 07:00 88 19 193/130 98 08/19/17 06:30 89 17 195/142 98 08/19/17 06:00 91 26 190/152 92 08/19/17 05:56 94 94 - Laboratory Lab Results: Lab Results 08/19/17 08/19/17 08/19/17 Range/Units 08:50 08:50 08:50 WBC 5.7 (3.5-10.8) 10^3/ul RBC 2.47 L (4.0-5.4) 10^6/ul Hgb 7.2 L (14.0-18.0) g/dl Hct 23 L (42-52) % MCV 93 (80-94) fL MCH 29 (27-31) pg MCHC 32 (31-36) g/dl RDW 18 H (10.5-15) % Plt Count 163 (150-450) 10^3/ul MPV 8 (7.4-10.4) um3 Neut % (Auto) 77.2 (38-83) % Lymph % (Auto) 11.8 L (25-47) % [place] % (Auto) 9.9 H (1-9) % Eos % (Auto) 0 (0-6) % Baso % (Auto) 1.1 (0-2) % Absolute Neuts (auto) 4.4 (1.5-7.7) 10^3/ul Absolute Lymphs (auto) 0.7 L (1.0-4.8) 10^3/ul Absolute Monos (auto) 0.6 (0-0.8) 10^3/ul Absolute Eos (auto) 0 (0-0.6) 10^3/ul Absolute Basos (auto) 0.1 (0-0.2) 10^3/ul Absolute Nucleated RBC 0.01 10^3/ul Nucleated RBC % 0.2 INR (Anticoag Therapy) 1.48 H (0.89-1.11) APTT 33.7 (26.0-36.3) seconds D-Dimer, Quantitative 216 (Less Than 230) ng/mL Sodium (133-145) mmol/L Potassium (3.5-5.0) mmol/L Chloride (101-111) mmol/L Carbon Dioxide (22-32) mmol/L Anion Gap (2-11) mmol/L BUN (6-24) mg/dL Creatinine (0.67-1.17) mg/dL Est GFR ( Amer) (>60) Est GFR (Non-Af Amer) (>60) BUN/Creatinine Ratio (8-20) Glucose (70-100) mg/dL Lactic Acid (0.5-2.0) mmol/L Calcium (8.6-10.3) mg/dL Magnesium (1.9-2.7) mg/dL Total Bilirubin (0.2-1.0) mg/dL AST (13-39) U/L ALT (7-52) U/L Alkaline Phosphatase (34-104) U/L Troponin I (<0.04) ng/mL B-Natriuretic Peptide 6532 H ( - 100) pg/mL Total Protein (6.4-8.9) g/dL Albumin (3.2-5.2) g/dL Globulin (2-4) g/dL Albumin/Globulin Ratio (1-3) Amylase (29-103) U/L Lipase (11.0-82.0) U/L Blood Type Antibody Screen Crossmatch 08/19/17 08/19/17 08/19/17 Range/Units 08:50 08:50 08:50 WBC (3.5-10.8) 10^3/ul RBC (4.0-5.4) 10^6/ul Hgb (14.0-18.0) g/dl Hct (42-52) % MCV (80-94) fL MCH (27-31) pg MCHC (31-36) g/dl RDW (10.5-15) % Plt Count (150-450) 10^3/ul MPV (7.4-10.4) um3 Neut % (Auto) (38-83) % Lymph % (Auto) (25-47) % [place] % (Auto) (1-9) % Eos % (Auto) (0-6) % Baso % (Auto) (0-2) % Absolute Neuts (auto) (1.5-7.7) 10^3/ul Absolute Lymphs (auto) (1.0-4.8) 10^3/ul Absolute Monos (auto) (0-0.8) 10^3/ul Absolute Eos (auto) (0-0.6) 10^3/ul Absolute Basos (auto) (0-0.2) 10^3/ul Absolute Nucleated RBC 10^3/ul Nucleated RBC % INR (Anticoag Therapy) (0.89-1.11) APTT (26.0-36.3) seconds D-Dimer, Quantitative (Less Than 230) ng/mL Sodium 134 (133-145) mmol/L Potassium 6.7 H* (3.5-5.0) mmol/L Chloride 94 L (101-111) mmol/L Carbon Dioxide 29 (22-32) mmol/L Anion Gap 11 (2-11) mmol/L BUN 51 H (6-24) mg/dL Creatinine 11.75 H (0.67-1.17) mg/dL Est GFR ( Amer) 5.6 (>60) Est GFR (Non-Af Amer) 4.4 (>60) BUN/Creatinine Ratio 4.3 L (8-20) Glucose 77 (70-100) mg/dL Lactic Acid 1.5 (0.5-2.0) mmol/L Calcium 10.1 (8.6-10.3) mg/dL Magnesium 2.9 H (1.9-2.7) mg/dL Total Bilirubin 0.70 (0.2-1.0) mg/dL AST 30 (13-39) U/L ALT 15 (7-52) U/L Alkaline Phosphatase 75 (34-104) U/L Troponin I 0.07 H* (<0.04) ng/mL B-Natriuretic Peptide ( - 100) pg/mL Total Protein 7.9 (6.4-8.9) g/dL Albumin 4.0 (3.2-5.2) g/dL Globulin 3.9 (2-4) g/dL Albumin/Globulin Ratio 1.0 (1-3) Amylase 64 (29-103) U/L Lipase 13 (11.0-82.0) U/L Blood Type O Positive Antibody Screen Negative Crossmatch See Detail Result Diagrams: 08/19/17 08:50 08/19/17 08:50 Lab Statement: Any lab studies that have been ordered have been reviewed, and results considered in the medical decision making process. - Radiology Chest XR Xray Interpretation: Positive (See Comments) - IMPRESSION: Findings most consistent with congestive heart failure less likely pneumonia demonstrating interval progression. ED physician has reviewed this radiology report and agrees. 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 Chest Pain Course/Dx - Course Assessment/Plan: will get dialysis immeidately after discharge, iunsturcted to return to ED for any wrosening or concerning sxs. - Diagnoses Provider Diagnoses: Abdominal pain, Chest pain, ESRF (end stage renal failure) - Provider Notifications Discussed Care Of Patient With: Jose Eduardo Dalal Time Discussed With Above Provider: 08:43 Instructed by Provider To: Other - I discussed the pt's case and prior visits with Dr. Dalal. He reports the pt is appropriate for dialysis. After labs are sent and medications are given [10:59] I spoke with Dr. Azevedo, hospitalist, who will consult with the pt. Discharge - Discharge Plan Condition: Improved Disposition: OTHER Discharge Disposition Comment: dialysis, then home if improved and stable Patient Education Materials: End Stage Kidney Disease (ED) Referrals: Marielena Vargas MD [Primary Care Provider] - Jose Eduardo Dalal MD [Medical Doctor] - Additional Instructions: PLEASE MAKE AN APPOINTMENT FIRST THING IN THE MORNING TO BE SEEN BY DR DIXON WITHIN 1 WEEK PLEASE RETURN TO THE EMERGENCY ROOM IF YOU HAVE ANY WORSENING OR CONCERNING SYMPTOMS The documentation as recorded by the Siva casey Angela accurately reflects the service I personally performed and the decisions made by me, Sav Vale MD.
[2017-08-19 12:41] VITALS: BP 178/143
[2017-08-19] MEDS ORDERED: Heparin DIALYSIS ONLY(*) 1,000 UNITS/ML VIAL ONE (13:40)
[2017-08-19] MEDS ORDERED: Epoetin Alfa* 10,000 UNITS/ML VIAL IV ONE (13:40)
--- NOTE | 2017-08-19 16:51 | CONS ---
AMENDED REPORT NOW INCLUDES COSIGNER DESIGNATION - ESIGNED BEFORE ADJUSTMENT CC: Dr. Marielena Vargas; Dr. Jose Eduardo Dalal * CONSULTATION REPORT: DATE OF CONSULT: 08/19/17 PRIMARY CARE PROVIDER: Dr. Marielena Vargas. ATTENDING PHYSICIAN: Dr. Maria Ines Azevedo * (dictated by Bety Holt NP). PHYSICIAN REQUESTING CONSULT: Dr. Sav Vale. REASON FOR CONSULT: Fluid overload, chest pain, and shortness of breath. HISTORY OF PRESENT ILLNESS: Mr. Templeton is a 67-year-old male with past medical history significant for end-stage renal disease, on hemodialysis, Thursday, Thursday, Thursday; chronically uncontrolled hypertension; CAD; peripheral vascular disease; cardiomyopathy; internal jugular vein thrombus; atrial fibrillation; chronic pain, who presents to the emergency room today with complaints of intermittent chest pain and shortness of breath for months. The patient has dialysis 3 times a week on Thursday, Thursday, and Fridays. He states that he was at dialysis on Thursday, but was unable to make it to dialysis this morning due to feeling so poorly. He reports pain in the middle of his chest, in addition to difficulty walking more than about half a block due to pain in his back and legs. The patient also reports some shortness of breath. The patient feels as though his chest pain is his typical chest pain. The patient also reports not following his fluid restriction and recently eating salty diet. The patient denies any recent fever, chills, constipation. He reports that he still makes a small amount of urine. He reports a cough for the last few days in addition to some nausea and vomiting. He also feels that his legs are more swollen than normal over the past week. Due to the patient's persistent symptoms, he had presented to the emergency room for further evaluation of his symptoms. While in the emergency room, the patient had a chest x-ray showing fluid volume overload. He had an EKG showing a sinus rhythm, rate of 99 and LVH. He had labs that were remarkable for hyperkalemia with potassium of 6.7, elevated BUN of 51, and creatinine of 11.75. The patient was also noted to be anemic with hemoglobin of 7.2, hematocrit of 23. The patient had a troponin of 0.07. He was also found to have an elevated BNP of 6532. The patient reports that he has not taken his blood pressure this morning, he has been on hypertensive while in the emergency room. The hospitalists were asked to evaluate the patient for possible admission. PAST MEDICAL HISTORY: 1. End-stage renal disease, on hemodialysis Thursday, Thursday, Thursday. 2. Chronically uncontrolled hypertension. 3. Coronary artery disease. 4. Peripheral vascular disease. 5. Cardiomyopathy. 6. Internal jugular vein thrombus. 7. GERD. 8. Hep C. 9. Chronic back pain. 10. Atrial fibrillation. PAST SURGICAL HISTORY: 1. Status post CABG with mitral valve and tricuspid valve repair. 2. ICD placement. 3. Status post appendectomy. 4. Status post hemorrhoidal banding. 5. Hernia repair. MEDICATIONS: Home medications include: 1. Lexapro 10 mg oral daily. 2. B complex with C and folic acid 1 tablet oral daily. 3. Albuterol sulfate 1.25 mg inhalation 4 times daily as needed for shortness of breath. 4. Albuterol HFA 2 puffs inhalation every 4 hours as needed for shortness of breath or wheeze. 5. Gabapentin 300 mg oral 3 times daily. 6. Furosemide 20 mg oral every morning. 7. Folic acid 0.5 mg oral daily. 8. Colace 100 mg oral twice daily. 9. Diclofenac 1% gel apply topical twice daily as needed for pain. 10. Cyclobenzaprine 5 mg oral every 8 hours as needed for muscle spasms. 11. Sensipar 30 mg oral every evening. 12. Carvedilol 25 mg oral twice daily with meals. 13. Calcium acetate 1334 mg 3 times daily with meals. 14. Simethicone 80 mg oral every 8 hours as needed for gas pain. 15. Ranitidine 150 mg oral daily. 16. Oxycodone 15 mg oral every 6 hours as needed for pain. 17. Ondansetron 4 mg oral every 8 hours as needed for nausea. 18. Omeprazole 40 mg oral twice daily. 19. Nitroglycerin 0.4 mg sublingual every 5 minutes as needed for chest pain. 20. Meclizine 25 mg oral every 8 hours as needed for vertigo. 21. Lorazepam 0.5 to 1 mg oral every 6 hours as needed for anxiety. 22. Amlodipine 10 mg oral every evening as needed for hypertension. 23. Ambien 10 mg oral daily at bedtime as needed for sleep. 24. Zocor 5 mg oral every morning. ALLERGIES: Include ASPIRIN and HYDROMORPHONE. FAMILY HISTORY: The patient's mother had a history of cerebrovascular accident and coronary artery disease. He denies any family history of diabetes mellitus or cancer. SOCIAL HISTORY: The patient is a former smoker smoking half a pack a day for approximately 10 years. He denies alcohol use. He occasionally smokes marijuana. The patient's brother, Joe Templeton, will be his surrogate decision maker in the event he is unable to make decisions for himself. Joe's phone number is [phone]. REVIEW OF SYSTEMS: I performed a 14-point review of systems. All the pertinent positives and negatives are mentioned in the history of present illness. Remaining review of systems is negative. PHYSICAL EXAM: Vital Signs: Temperature 98.2, heart rate 73, respiratory rate 19, O2 sat 96% on 2 L via nasal cannula, blood pressure 178/143. General Appearance: The patient is alert, pleasant, appears to be in no acute distress. HEENT: Normocephalic, atraumatic. Pupils are equal, round, and reactive to light. Extraocular movements are intact. Neck: Supple. There is no lymphadenopathy noted. Cardiovascular: Regular rate and rhythm. S1 and S2 present. There are no murmurs, rubs, or gallops heard. Extremities: There is 2+ bilateral lower extremity and upper extremity edema from above the knees distal, DP and PT pulses are 1+ and symmetric. Respiratory: There is no accessory muscle use. The lungs are clear, but diminished to auscultation bilateral. Abdomen: Soft, nontender, and nondistended. There are bowel sounds present x4. Musculoskeletal: There is no clubbing or cyanosis noted. The patient exhibits good strength in all extremities. Skin: There are no rashes or abnormalities seen. Neurological: Cranial nerves II through XII are grossly intact. The patient moves all extremities. Psychological: The patient is calm and cooperative. DIAGNOSTIC STUDIES/LAB DATA: Sodium 134, potassium 6.7, chloride 94, CO2 29, BUN 51, creatinine 11.75, glucose 77. White blood cell count 5.7, hemoglobin 7.2, hematocrit 23, and platelet count 163,000. Troponin 0.07. D-dimer 216. BNP 6532. EKG from today shows sinus rhythm with a rate of 99 and LVH. There are no acute signs of ischemia. This EKG is similar to previous EKG from 07/31/17. Chest x-ray from today. Radiologist's impression: Findings most consistent with congestive heart failure, less likely pneumonia. Demonstrating interval progression. IMPRESSION: Mr. Templeton is a 67-year-old male with past medical significant for end- stage renal disease, on hemodialysis, Thursday, Thursday, Thursday; chronically uncontrolled hypertension; coronary artery disease; peripheral vascular disease; cardiomyopathy; gastroesophageal reflux disease; hepatitis C; paroxysmal atrial fibrillation; internal jugular vein thrombus; chronic pain, who presents to the emergency room with complaints of chest discomfort, shortness of breath, and generally feeling lousy. Hospitalists were asked to consult on the patient regarding possible admission for fluid overload. ASSESSMENT/PLAN: 1. Volume overload and hyperkalemia. I suspect the patient is volume overloaded and needs dialysis today per his usual schedule. I did touch base with Dr. Dalal who agrees that the patient needs dialysis and may be able to go home afterwards. I suspect the dialysis will resolve the hyperkalemia in addition to the volume overload. The plan will be to discharge the patient from the emergency room and hospitalist will reassess him later towards the end of his treatment session. 2. Chest pain. This is chronic issue for the patient. His last stress test was in November of 2016. His troponin is elevated at 0.07. I suspect this is close to the patient's baseline with his end-stage renal disease. His EKG shows no significant changes from previous ones. 3. Abdominal pain. I suspect this is possibly chronic pancreatitis. The patient can continue taking his home medications. 4. History of coronary artery disease, status post coronary artery bypass graft. The patient is allergic to ASPIRIN, so he is not on aspirin. He should be continued on his home carvedilol. 5. Cardiomyopathy. The patient should be continued on his home carvedilol and furosemide. 6. Atrial fibrillation. The patient is currently in normal sinus rhythm. He will be continued on his home carvedilol. He is not currently anticoagulated. 7. History of hepatitis C. No acute issue. 8. Chronic pain. The patient should be continued on his home medications of oxycodone and diclofenac gel and Neurontin. 9. Gastroesophageal reflux disease. The patient should be continued on his home ranitidine and omeprazole. 10. Hypertension. The patient's hypertension is chronically uncontrolled. For now, he will be continued on his home as needed amlodipine and carvedilol. I suspect the patient's hypertension will also improve after he is no longer fluid overloaded after his dialysis session. He reports not taking his home medications this morning. 11. Fluids, electrolytes, and nutrition. The patient will be on a renal diet. 12. Code status. Full code. 13. DVT prophylaxis. The patient is encouraged to ambulate. 14. Disposition. The patient will be discharged from the emergency room to the dialysis room on for dialysis. Hospitalist will reevaluate the patient. He currently does not want to stay and would like to go home after dialysis. TIME SPENT: Time for this consultation was 60 minutes, greater than half of that was spent with the patient discussing medications, past medical history, events leading up to his arrival today. The case has been reviewed with the attending, Dr. Azevedo, who agrees with the plan of care. Reviewed by TRACE BEAN 08/19/17 [id number]/[facility] #: [id number] STEPHANIE
== END 2017-08-19 13:06 ==
LOC: ED 05:30
DX: R07.89 Other chest pain (principal); R10.9 Unspecified abdominal pain; N18.6 End stage renal disease; Z99.2 Dependence on renal dialysis; R53.1 Weakness; R06.02 Shortness of breath; R05 Cough; R11.2 Nausea with vomiting, unspecified; I25.119 Atherosclerotic heart disease of native coronary artery with unspecified angina pectoris; I10 Essential (primary) hypertension; Z95.1 Presence of aortocoronary bypass graft; I50.9 Heart failure, unspecified; I73.9 Peripheral vascular disease, unspecified; J44.9 Chronic obstructive pulmonary disease, unspecified; K21.9 Gastro-esophageal reflux disease without esophagitis; G43.909 Migraine, unspecified, not intractable, without status migrainosus; F41.9 Anxiety disorder, unspecified; F32.9 Major depressive disorder, single episode, unspecified; Z86.718 Personal history of other venous thrombosis and embolism; Z95.810 Presence of automatic (implantable) cardiac defibrillator; Z88.6 Allergy status to analgesic agent; Z88.5 Allergy status to narcotic agent; F12.90 Cannabis use, unspecified, uncomplicated; Z87.891 Personal history of nicotine dependence
CPT/HCPCS: 36415; 71010; 80053; 82150; 83605; 83690; 83735; 83880; 84484; 85025; 85379; 85610; 85730; 86850; 86900; 86901; 86922; 87040; 93005; 94640; 96374; 96375; 99283; J0885; J1170; J1644; J2405

== ENCOUNTER 2017-08-30 01:13 | Emergency (ER) | payer MEDICARE, MEDICAID ==
[2017-08-30] MEDS ORDERED: Albuterol (2.5 MG) 0.5 % CONC 2.5 MG/0.5 ML NEB.SOLN (ICU and ED only) INH ONE (03:33)
[2017-08-30] MEDS ORDERED: Albuterol 0.5% CONC NEB.SOL* 5 MG/ML 20 ml BOT ONE (03:47)
[2017-08-30 04:28] LABS: Hematocrit 26 % (42-52); Mean Corpuscular HGB Conc 31 g/dl (31-36); Mean Corpuscular Hemoglobin 28 pg (27-31); Mean Corpuscular Volume 91 fL (80-94); Mean Platelet Volume 9 um3 (7.4-10.4); Red Blood Count 2.89 10^6/ul (4.0-5.4); Red Cell Distribution Width 19 % (10.5-15); White Blood Count 4.5 10^3/ul (3.5-10.8)
[2017-08-30 04:38] LABS: Albumin 4.1 g/dL (3.2-5.2); BUN/Creatinine Ratio 4.6 (8-20); Calcium 10.1 mg/dL (8.6-10.3); EGFR African American 6.8 (>60); EGFR Non-African American 5.3 (>60); Globulin 3.7 g/dL (2-4); Total Bilirubin 0.6 mg/dL (0.2-1.0); Total Protein 7.8 g/dL (6.4-8.9)
[2017-08-30 04:49] LABS: Potassium 6.2 mmol/L (3.5-5.0)
[2017-08-30 05:50] VITALS: BP 190/110
--- NOTE | 2017-08-30 07:59 | RAD ---
INDICATION: Cough COMPARISON: Chest x-ray August 19, 2017 TECHNIQUE: PA and lateral dual-energy views were obtained. FINDINGS: Bones/Soft Tissues: There are no acute bony findings. There is sternotomy. There is left-sided cardiac pacemaker Cardiomediastinal: The heart is enlarged. There is prior valvular surgery. Lungs: Bilateral airspace disease likely interstitial and alveolar edema. This is mildly improved Pleura: There are no pleural effusions. Other: None IMPRESSION: POST SURGICAL CHANGES WITH MODERATE VASCULAR CONGESTION WITH MILD IMPROVEMENT
--- NOTE | 2017-09-07 02:32 | ED ---
Gogo Briones Emily, scribed for Otoniel Nelson MD on 08/30/17 at 0333 . Shortness of Breath - HPI Summary HPI Summary: This patient is a 67 year old M BIBA to [facility] with a chief complaint of SOB that began 1 week ago. The patient rates the pain 9/10 in severity. Symptoms aggravated by deep breaths. Symptoms alleviated by nothing. Patient reports mid- sternal CP, cough, abd pain, and feeling shaky. Pt is on oxygen at home. Pt reports hx of pneumonia and COPD. Pt reports last dialysis treatment was 2 days ago. Patients medications reviewed this visit. - History of Current Complaint Chief Complaint: EDUpperRespComplaint Time Seen by Provider: 08/30/17 03:17 Hx Obtained From: Patient Onset/Duration: Sudden Onset, Lasting Weeks, Still Present Timing: Constant Current Severity: Severe Aggrevating Factors: Deep Breaths Alleviating Factors: Nothing - Allergy/Home Medications Allergies/Adverse Reactions: Allergies Allergy/AdvReac Type Severity Reaction Status Date / Time Aspirin Allergy Unknown See Comment Verified 08/18/17 16:40 Hydromorphone [From Dilaudid] AdvReac Intermediate Unknown Verified 08/19/17 08: 58 Reaction Details PMH/Surg Hx/FS Hx/Imm Hx Previously Healthy: No Endocrine/Hematology History: Reports: Hx Blood Transfusions, Hx Sickle Cell Disease - Was told had sickle cell at one point but denies, Hx Anemia Denies: Hx Anticoagulant Therapy, Hx Bone Marrow Disease, Hx Diabetes, Hx Thyroid Disease Cardiovascular History: Reports: Hx Angina, Hx Auto Implanted Cardiovert Defib, Hx Congestive Heart Failure, Hx Coronary Artery Disease, Hx Deep Vein Thrombosis , Hx Hypertension, Hx Pacemaker/ICD, Hx Peripheral Vascular Disease, Hx Syncope , Other Cardiovascular Problems/Disorders - cardiomegaly, mitral valve and tricuspid valve repair Denies: Hx Cardiomegaly, Hx Hypercholesterolemia, Hx Myocardial Infarction, Hx Rheumatic Fever, Hx Valvular Heart Disease Respiratory History: Reports: Hx Asthma, Hx Chronic Obstructive Pulmonary Disease (COPD), Hx Pleural Effusion, Hx Pneumonia, Other Respiratory Problems/ Disorders Denies: Hx Pulmonary Edema, Hx Pulmonary Embolism, Hx Sleep Apnea GI History: Reports: Hx Cirrhosis, Hx Gastroesophageal Reflux Disease, Hx Ulcer - peptic ulcer, Other GI Disorders - hep C Denies: Hx Crohn's Disease, Hx Hiatal Hernia, Hx Irritable Bowel, Hx Jaundice History: Reports: Hx Acute Renal Failure, Hx Chronic Renal Failure, Hx Dialysis, Hx Renal Disease, Other Problems/Disorders - end stage renal disease, on dialysis Denies: Hx Kidney Infection, Hx Kidney Stones Musculoskeletal History: Reports: Hx Arthritis, Hx Back Problems - chronic pain , Hx Orthopedic Injury Denies: Hx Rheumatoid Arthritis, Hx Bursitis, Hx Tendonitis, Other Musculoskeletal History Sensory History: Reports: Hx Contacts or Glasses, Hx Glaucoma, Hx Vision Problem Denies: Hx Cataracts, Hx Hearing Aid Opthamlomology History: Reports: Hx Contacts or Glasses, Hx Glaucoma, Hx Vision Problem Denies: Hx Cataracts Neurological History: Reports: Hx Headaches, Hx Migraine, Other Neuro Impairments/Disorders - depression Denies: Hx Dementia, Hx Seizures Psychiatric History: Reports: Hx Anxiety, Hx Depression Denies: Hx Eating Disorder, Hx Panic Disorder, Hx Suicide Attempt, Hx of Violent Episodes Against Others, Hx Substance Abuse - Cancer History Hx Chemotherapy: No Hx Radiation Therapy: No Hx Palliative Cancer Treatment: No - Surgical History Surgery Procedure, Year, and Place: HERNIA REPAIR 2012. APPENDECTOMY 2000. LEFT ARM AV FISTULA/CAD - REMOVED. CABG 1 vessel, mitral & tricuspid valve repair March 02, 2014 AT [facility] CONDITIONAL 5 UPTO 3T. POWER PORT. Mitral and tricuspid valve repair Hx Anesthesia Reactions: No - Immunization History Date of Tetanus Vaccine: 2014 Date of Influenza Vaccine: Fall 2015 Infectious Disease History: No Infectious Disease History: Reports: Hx Hepatitis - Hep C, Hx of Known/ Suspected MRSA, History Other Infectious Disease - Hepatitis C Denies: Hx Clostridium Difficile, Hx Human Immunodeficiency Virus (HIV), Hx Shingles, Hx Tuberculosis, Hx Known/Suspected VRE, Hx Known/Suspected VRSA, Traveled Outside the in Last 30 Days - Family History Known Family History: Positive: None, Cardiac Disease, Hypertension, Other - CVA Family History: R & N/C - Social History Occupation: Disabled Lives: With Family Alcohol Use: None Alcohol Amount: former EtOH abuse Hx Substance Use: Yes Substance Use Type: Reports: Marijuana Substance Use Comment - Amount & Last Used: today Hx Tobacco Use: Yes Smoking Status (MU): Former Smoker Type: Cigarettes Amount Used/How Often: 1/2 ppd Length of Time of Smoking/Using Tobacco: 10 years Have You Smoked in the Last Year: No Review of Systems Positive: Shortness Of Breath, Cough Positive: Abdominal Pain Neurological: Other - Positive feeling "shaky" All Other Systems Reviewed And Are Negative: Yes Physical Exam - Summary Physical Exam Summary: Appearance: Well-appearing, Well-nourished Skin: Warm, Dry, No rash, fistula in R arm Eyes: Normal, PERRL, EOMI, sclera anicteric ENT: Normal Neck: Supple, nontender Respiratory: Clear to auscultation Cardiovascular: S1, S2, no murmur, no rub, no gallop, LV heave Abdomen: Soft, no organomegaly, tenderness in upper abdomen Bowel sounds: Present Musculoskeletal: Normal, Strength/ROM Intact, no edema, pulses symmetrical Neurological: Normal, A&Ox3, cranial nerves 2-12 wnl, follows commands, gait not tested, sensation intact to pin and light touch Psychiatric: affect normal, behavior appropriate, dressed appropriately, judgment intact Triage Information Reviewed: Yes Vital Signs On Initial Exam: Initial Vitals Temp Pulse Resp BP Pulse Ox 98.5 F 85 15 200/110 100 08/30/17 01:14 08/30/17 01:14 08/30/17 01:14 08/30/17 01:14 08/30/17 01:14 Vital Signs Reviewed: Yes Diagnostics - Vital Signs Vital Signs Temp Pulse Resp BP Pulse Ox 08/30/17 01:14 98.5 F 85 15 200/110 100 - Laboratory Result Diagrams: 08/30/17 04:12 08/30/17 04:12 Lab Statement: Any lab studies that have been ordered have been reviewed, and results considered in the medical decision making process. - Radiology CXR Radiology Interpretation Completed By: ED Physician - CXR read by ED physician reveals fluid overload with bilateral pleural effusion. - EKG 0485 Cardiac Rate: NL EKG Rhythm: Sinus Rhythm - 83 BPM EKG Interpretation: LVH Course/Dx - Course Assessment/Plan: This patient is a 67 year old M BIBA to [facility] with a chief complaint of SOB that began 1 week ago. The patient rates the pain 9/10 in severity. Symptoms aggravated by deep breaths. Symptoms alleviated by nothing. Patient reports mid-sternal CP, cough, abd pain, and feeling shaky. Pt is on oxygen at home. Pt reports hx of pneumonia and COPD. Pt reports last dialysis treatment was 2 days ago. Patients medications reviewed this visit. PMHx includes CoPD. Physical Exam Findings. LV heave, tenderness in upper abdomen, fistula in R arm. Medical Decision Making. An EKG taken at 0485 reveals normal sinus rhythm at 83 BPM with LVH. CXR read by ED physician reveals fluid overload with bilateral pleural effusion. In the ED course pt was gen albuterol. Patient will be discharged with follow up from PCP. The patient is agreeable with this plan. - Diagnoses Provider Diagnoses: Fluid overload Discharge - Discharge Plan Condition: Fair Disposition: HOME Patient Education Materials: End Stage Kidney Disease (ED) Referrals: Marielena Vargas MD [Primary Care Provider] - Additional Instructions: follow up Thursday, limit fluid intake The documentation as recorded by the Gogo casey Emily accurately reflects the service I personally performed and the decisions made by me, Otoniel Nelson MD.
== END 2017-08-30 05:57 | disposition home or self-care (01) ==
LOC: ED 01:13
DX: E87.70 Fluid overload, unspecified (principal); R06.02 Shortness of breath; R05 Cough; R10.9 Unspecified abdominal pain; Z87.891 Personal history of nicotine dependence
CPT/HCPCS: 36415; 71020; 80053; 85025; 93005; 94640; 99282; J7611

== ENCOUNTER → 2017-09-02 10:10 | Emergency (ER) | payer MEDICARE, MEDICAID ==
[~2017-09-02 10:10] MED LIST changes: -Albuterol/Ipratropium NEB.SOL* Albuterol 2.5 MG/Ipratropium 0.5 MG 3 ML ONE; +Cephalexin CAP* 500 MG PO ONE; -Morphine INJ* 4 MG/ML 1 ML CARPUJECT IM ONE; -Ondansetron ODT TAB* 4 MG ONE; -Ondansetron ODT TAB* 4 MG PO ONE
[2017-09-02 11:21] LABS: Hematocrit 26 % (42-52); Hemoglobin 8.3 g/dl (14.0-18.0); Mean Corpuscular HGB Conc 32 g/dl (31-36); Mean Corpuscular Hemoglobin 28 pg (27-31); Mean Corpuscular Volume 89 fL (80-94); Mean Platelet Volume 8 um3 (7.4-10.4); Red Blood Count 2.92 10^6/ul (4.0-5.4); Red Cell Distribution Width 19 % (10.5-15); White Blood Count 4.3 10^3/ul (3.5-10.8)
[2017-09-02 11:41] LABS: Albumin 4.4 g/dL (3.2-5.2); BUN/Creatinine Ratio 4.9 (8-20); EGFR African American 6.5 (>60); Globulin 3.9 g/dL (2-4); Potassium 4.9 mmol/L (3.5-5.0); Total Bilirubin 0.7 mg/dL (0.2-1.0); Total Protein 8.3 g/dL (6.4-8.9)
--- NOTE | 2017-09-02 11:43 | RAD ---
INDICATION: Cough COMPARISON: Chest x-ray August 30, 2017 TECHNIQUE: PA and lateral dual-energy views were obtained. FINDINGS: Bones/Soft Tissues: There are no acute bony findings. There is sternotomy with left-sided cardiac pacemaker. There is valvular surgery Cardiomediastinal: The heart is moderately the central pulmonary vessels and interstitium are prominent compatible with moderate interstitial congestion, unchanged. Lungs: Alveolar change right lung base, unchanged. This could represent pleural fluid, alveolar edema, infiltrate or combination of the three. Pleura: Moderate bilateral effusions, unchanged. Other: None IMPRESSION: MODERATE VASCULAR CONGESTION WITH EFFUSIONS. CONSOLIDATIVE CHANGES IN RIGHT LUNG BASE, UNCHANGED
[2017-09-02 11:49] LABS: Troponin I 0.06 ng/mL (<0.04)
[2017-09-02 12:49] VITALS: BP 150/100
--- NOTE | 2017-09-02 20:44 | ED ---
Celine Briones Nilda, scribed for Oskar Galvan MD on 09/02/17 at 1051 . Shortness of Breath - HPI Summary HPI Summary: This patient is a 67 year old M presenting to [facility] with a chief complaint of SOB since 0515 this morning. He states he began having difficulty breathing while being dialyzed today. The patient rates the pain 7/10 in severity. Symptoms aggravated and alleviated by nothing. Patient reports painful abscess on left underarm (past few days) and mild edema. Patient denies fever, chills, and new cough. PMHx includes asthma and kidney failure. PSHx CABG (2004). Pt states he is a non-smoker. - History of Current Complaint Chief Complaint: EDShortnessOfBreath Time Seen by Provider: 09/02/17 10:33 Hx Obtained From: Patient Onset/Duration: Sudden Onset, Lasting Hours - approx 5 hours, Still Present Dyspnea At: Rest Aggrevating Factors: Nothing Alleviating Factors: Nothing Associated Signs & Symptoms: Edema - Allergy/Home Medications Allergies/Adverse Reactions: Allergies Allergy/AdvReac Type Severity Reaction Status Date / Time Aspirin Allergy Unknown See Comment Verified 08/18/17 16:40 Hydromorphone [From Dilaudid] AdvReac Intermediate Unknown Verified 08/19/17 08: 58 Reaction Details Home Medications: Home Medications Isosorbide Mononitrate ER TAB* [Imdur ER TAB*] 60 mg PO DAILY 09/02/17 [History Confirmed 09/02/17] Lisinopril TAB* [Prinivil TAB*] 10 mg PO DAILY 09/02/17 [History Confirmed 09/02] Lubiprostone 24 MCG CAP (NF) [Amitiza (NF)] 24 mcg PO BID 09/02/17 [History Confirmed 09/02/17] Pancrelipase (NF) [Creon (NF)] 1 cap PO QID 09/02/17 [History Confirmed 09/02/17 ] Simvastatin TAB(NF) [Zocor(NF)] 10 mg PO DAILY 09/02/17 [History Confirmed 09/02] Sodium Polystyrene ORAL.MIGUELITO* [Kayexalate ORAL.MIGUELITO*] 15 gm PO DAILY 09/02/17 [ History Confirmed 09/02/17] Sucroferric Oxyhydroxide [Velphoro] 1,000 mg PO .WITH SNACKS 09/02/17 [History Confirmed 09/02/17] Sucroferric Oxyhydroxide [Velphoro] 1,000 mg PO TID WITH MEALS 09/02/17 [ History Confirmed 09/02/17] hydrALAZINE TAB* [Apresoline TAB*] 25 mg PO TID 09/02/17 [History Confirmed ] PMH/Surg Hx/FS Hx/Imm Hx Endocrine/Hematology History: Reports: Hx Blood Transfusions, Hx Sickle Cell Disease - Was told had sickle cell at one point but denies, Hx Anemia Denies: Hx Anticoagulant Therapy, Hx Bone Marrow Disease, Hx Diabetes, Hx Thyroid Disease Cardiovascular History: Reports: Hx Angina, Hx Auto Implanted Cardiovert Defib, Hx Congestive Heart Failure, Hx Coronary Artery Disease, Hx Deep Vein Thrombosis , Hx Hypertension, Hx Pacemaker/ICD, Hx Peripheral Vascular Disease, Hx Syncope , Other Cardiovascular Problems/Disorders - cardiomegaly, mitral valve and tricuspid valve repair Denies: Hx Cardiomegaly, Hx Hypercholesterolemia, Hx Myocardial Infarction, Hx Rheumatic Fever, Hx Valvular Heart Disease Respiratory History: Reports: Hx Asthma, Hx Chronic Obstructive Pulmonary Disease (COPD), Hx Pleural Effusion, Hx Pneumonia, Other Respiratory Problems/ Disorders Denies: Hx Pulmonary Edema, Hx Pulmonary Embolism, Hx Sleep Apnea GI History: Reports: Hx Cirrhosis, Hx Gastroesophageal Reflux Disease, Hx Ulcer - peptic ulcer, Other GI Disorders - hep C Denies: Hx Crohn's Disease, Hx Hiatal Hernia, Hx Irritable Bowel, Hx Jaundice History: Reports: Hx Acute Renal Failure, Hx Chronic Renal Failure, Hx Dialysis, Hx Renal Disease, Other Problems/Disorders - end stage renal disease, on dialysis Denies: Hx Kidney Infection, Hx Kidney Stones Musculoskeletal History: Reports: Hx Arthritis, Hx Back Problems - chronic pain , Hx Orthopedic Injury Denies: Hx Rheumatoid Arthritis, Hx Bursitis, Hx Tendonitis, Other Musculoskeletal History Sensory History: Reports: Hx Contacts or Glasses, Hx Glaucoma, Hx Vision Problem Denies: Hx Cataracts, Hx Hearing Aid Opthamlomology History: Reports: Hx Contacts or Glasses, Hx Glaucoma, Hx Vision Problem Denies: Hx Cataracts Neurological History: Reports: Hx Headaches, Hx Migraine, Other Neuro Impairments/Disorders - depression Denies: Hx Dementia, Hx Seizures Psychiatric History: Reports: Hx Anxiety, Hx Depression Denies: Hx Eating Disorder, Hx Panic Disorder, Hx Suicide Attempt, Hx of Violent Episodes Against Others, Hx Substance Abuse - Cancer History Hx Chemotherapy: No Hx Radiation Therapy: No Hx Palliative Cancer Treatment: No - Surgical History Surgery Procedure, Year, and Place: HERNIA REPAIR 2012. APPENDECTOMY 2000. LEFT ARM AV FISTULA/CAD - REMOVED. CABG 1 vessel, mitral & tricuspid valve repair March 02, 2014 AT [facility] CONDITIONAL 5 UPTO 3T. POWER PORT. Mitral and tricuspid valve repair Hx Anesthesia Reactions: No - Immunization History Date of Tetanus Vaccine: 2014 Date of Influenza Vaccine: Fall 2015 Infectious Disease History: No Infectious Disease History: Reports: Hx Hepatitis - Hep C, Hx of Known/ Suspected MRSA, History Other Infectious Disease - Hepatitis C Denies: Hx Clostridium Difficile, Hx Human Immunodeficiency Virus (HIV), Hx Shingles, Hx Tuberculosis, Hx Known/Suspected VRE, Hx Known/Suspected VRSA, Traveled Outside the in Last 30 Days - Family History Known Family History: Positive: Cardiac Disease, Hypertension, Other - CVA Family History: R & N/C - Social History Alcohol Use: None Alcohol Amount: former EtOH abuse Hx Substance Use: Yes Substance Use Type: Reports: Marijuana Substance Use Comment - Amount & Last Used: today Hx Tobacco Use: Yes Smoking Status (MU): Former Smoker Type: Cigarettes Amount Used/How Often: 1/2 ppd Length of Time of Smoking/Using Tobacco: 10 years Have You Smoked in the Last Year: No Review of Systems Negative: Fever, Chills Positive: Shortness Of Breath. Negative: Cough Positive: Edema Positive: Other - painful abscess on left underarm All Other Systems Reviewed And Are Negative: Yes Physical Exam Triage Information Reviewed: Yes Vital Signs On Initial Exam: Initial Vitals Temp Pulse Resp BP Pulse Ox 97.8 F 89 23 141/109 96 09/02/17 10:26 09/02/17 10:26 09/02/17 10:26 09/02/17 10:26 09/02/17 10:26 Vital Signs Reviewed: Yes Appearance: Positive: Well-Appearing, No Pain Distress Skin: Positive: Warm, Skin Color Reflects Adequate Perfusion, Other - left axilla with a 1 cm enlarged lymp node that is tender. No abcess palpated. Head/Face: Positive: Normal Head/Face Inspection Respiratory/Lung Sounds: Positive: Breath Sounds Present - bilateral with coughing Cardiovascular: Positive: RRR. Negative: Murmur Abdomen Description: Positive: Nontender Musculoskeletal: Positive: Strength/ROM Intact, Edema Left, Edema Right Neurological: Positive: Sensory/Motor Intact, Alert, Oriented to Person Place, Time, CN Intact II-III - [place] Coma Scale Best Eye Response: 4 - Spontaneous Best Motor Response: 6 - Obeys Commands Best Verbal Response: 5 - Oriented Coma Scale Total: 15 Diagnostics - Vital Signs Vital Signs Temp Pulse Resp BP Pulse Ox 09/02/17 10:26 97.8 F 89 23 141/109 96 - Laboratory Result Diagrams: 09/02/17 11:10 09/02/17 11:10 Lab Statement: Any lab studies that have been ordered have been reviewed, and results considered in the medical decision making process. - Radiology CXR Radiology Interpretation Completed By: Radiologist - CXR reveals moderate vascular congestion with effusions. Consolidative changes in right lung base, unchanged. ED physician has reviewed this radiology report and agrees. - EKG 1212 Cardiac Rate: NL EKG Rhythm: Sinus Rhythm - 91 bpm EKG Interpretation: nl IL interval, No STEMI EKG Comparison: No Significant Change Re-Evaluation - Re-Evaluation First Eval Re-Evaluation Time: 12:03 Change: Improved Comment: The patient is comfortable and states relief after breathing treatment. He wants to eat a lunch tray prior to leaving here. Course/Dx - Course Assessment/Plan: This patient is a 67 year old M presenting to [facility] with a chief complaint of SOB since 0515 this morning. He states he began having difficulty breathing while being dialyzed today. The patient rates the pain 7/ 10 in severity. Symptoms aggravated and alleviated by nothing. Patient reports painful abscess on left underarm (past few days) and mild edema. Patient denies fever, chills, and new cough. PMHx includes asthma and kidney failure. Pt given albuterol breathing treatment in ED. Pending labs, EKG, and CXR. An EKG [1212] reveals NSR, 91bpm, nl IL interval, No STEMI, no change compared to last EKG. CXR reveals moderate vascular congestion with effusions. Consolidative changes in right lung base, unchanged. He has chronic mild troponin elevation, and with 6 hours of sob it is at its baseline. He has complete relief after one neb. DC to home in improved condition. Dx: Acute lymphadenitis of arm, COPD (chronic obstructive pulmonary disease), Hypertension - Diagnoses Provider Diagnoses: Acute lymphadenitis of arm, COPD (chronic obstructive pulmonary disease), Hypertension Discharge - Discharge Plan Condition: Good Disposition: HOME Prescriptions: Cephalexin CAP* [Keflex CAP*] 250 mg PO BID #20 cap Patient Education Materials: COPD (Chronic Obstructive Pulmonary Disease) (ED) , Hypertension (ED), Adenitis (ED) Referrals: Marielena Vagras MD [Primary Care Provider] - 2 Days The documentation as recorded by the Celine casey Nilda accurately reflects the service I personally performed and the decisions made by Mandy washington Walter, MD.
== END | disposition home or self-care (01) ==
LOC: ED 10:10
DX: J44.9 Chronic obstructive pulmonary disease, unspecified (principal); I88.9 Nonspecific lymphadenitis, unspecified; Z87.891 Personal history of nicotine dependence; R06.02 Shortness of breath; R60.9 Edema, unspecified; I10 Essential (primary) hypertension
CPT/HCPCS: 36415; 71020; 80053; 83605; 84484; 85025; 85610; 87502; 93005; 94640; 99282; A9270-GY

== ENCOUNTER 2017-09-06 02:54 | Observation (INO) | payer MEDICARE, MEDICAID ==
[2017-09-06] MEDS ORDERED: Morphine INJ* 4 MG/ML 1 ML CARPUJECT IV ONE ×2 (03:30→05:01)
[2017-09-06] MEDS ORDERED: Albuterol/Ipratropium NEB.SOL* Albuterol 2.5 MG/Ipratropium 0.5 MG 3 ML INH ONE (03:30)
[2017-09-06 04:03] LABS: Hematocrit 24 % (42-52); Hemoglobin 7.6 g/dl (14.0-18.0); Mean Corpuscular HGB Conc 32 g/dl (31-36); Mean Corpuscular Hemoglobin 28 pg (27-31); Mean Corpuscular Volume 89 fL (80-94); Mean Platelet Volume 8 um3 (7.4-10.4); Red Cell Distribution Width 18 % (10.5-15); White Blood Count 4.1 10^3/ul (3.5-10.8)
[2017-09-06 04:14] LABS: BUN/Creatinine Ratio 4.3 (8-20); Calcium 9.8 mg/dL (8.6-10.3); EGFR African American 4.9 (>60); EGFR Non-African American 3.8 (>60); Globulin 3.5 g/dL (2-4); Total Bilirubin 0.6 mg/dL (0.2-1.0); Total Protein 7.5 g/dL (6.4-8.9)
[2017-09-06 04:17] LABS: Potassium 5.3 mmol/L (3.5-5.0)
[2017-09-06] MEDS ORDERED: Enalaprilat IV* 1.25 MG/ML 1 ML VIAL (1.25 MG) IV ONE (06:39)
[2017-09-06] MEDS ORDERED: Enalaprilat IV* 1.25 MG/ML 2 ML VIAL (2.5 MG) IV ONE (06:39)
[2017-09-06] MEDS ORDERED: LORazepam TAB(*) 0.5 MG PO PRN (07:50)
[2017-09-06] MEDS ORDERED: Ondansetron TAB* 4 MG PO PRN (07:50)
[2017-09-06] MEDS ORDERED: Meclizine TAB* 12.5 MG PO PRN (07:50)
[2017-09-06] MEDS ORDERED: Nitroglycerin TAB 0.4 MG* 0.4 MG TAB SL PRN (07:50)
[2017-09-06] MEDS ORDERED: Simethicone TAB* 80 MG TAB.CHEW PO PRN (07:50)
[2017-09-06] MEDS ORDERED: Cyclobenzaprine TAB* 10 MG PO PRN (07:50)
[2017-09-06] MEDS ORDERED: Albuterol HFA INHALER* 8 gm MDI INH PRN (07:50)
[2017-09-06] MEDS ORDERED: Acetaminophen TAB* 325 MG PO PRN (07:55)
[2017-09-06] MEDS ORDERED: Carvedilol TAB* 6.25 MG PO SCH (08:00)
--- NOTE | 2017-09-06 08:09 | ED ---
Matthew Briones Alfonso, scribed for Sav Vale MD on 09/06/17 at 0308 . Shortness of Breath - HPI Summary HPI Summary: This patient is a 67 year old M BIBA to [facility] with a chief complaint of acute on chronic SOB worse since yesterday. Symptoms aggravated and alleviated by nothing. Patient reports cough (mainly nonproductive), streaks of blood in sputum, throat foreign body sensation, insomnia, RLE swelling (ankle and foot). Patient denies fever. He sleeps on 8 pillows. He gets dialysis MWF. COPD for which his always on NC 3L. - History of Current Complaint Hx Obtained From: Patient Onset/Duration: Gradual Onset, Still Present, Worse Since - yesterday Timing: Constant Aggrevating Factors: Nothing Alleviating Factors: Nothing Associated Signs & Symptoms: Cough (Nonproductive) - Allergy/Home Medications Allergies/Adverse Reactions: Allergies Allergy/AdvReac Type Severity Reaction Status Date / Time Aspirin Allergy Unknown See Comment Verified 08/18/17 16:40 Hydromorphone [From Dilaudid] AdvReac Intermediate Unknown Verified 08/19/17 08: 58 Reaction Details PMH/Surg Hx/FS Hx/Imm Hx Endocrine/Hematology History: Reports: Hx Blood Transfusions, Hx Sickle Cell Disease - Was told had sickle cell at one point but denies, Hx Anemia Denies: Hx Anticoagulant Therapy, Hx Bone Marrow Disease, Hx Diabetes, Hx Thyroid Disease Cardiovascular History: Reports: Hx Angina, Hx Auto Implanted Cardiovert Defib, Hx Congestive Heart Failure, Hx Coronary Artery Disease, Hx Deep Vein Thrombosis , Hx Hypertension, Hx Pacemaker/ICD, Hx Peripheral Vascular Disease, Hx Syncope , Other Cardiovascular Problems/Disorders - cardiomegaly, mitral valve and tricuspid valve repair Denies: Hx Cardiomegaly, Hx Hypercholesterolemia, Hx Myocardial Infarction, Hx Rheumatic Fever, Hx Valvular Heart Disease Respiratory History: Reports: Hx Asthma, Hx Chronic Obstructive Pulmonary Disease (COPD), Hx Pleural Effusion, Hx Pneumonia, Other Respiratory Problems/ Disorders Denies: Hx Pulmonary Edema, Hx Pulmonary Embolism, Hx Sleep Apnea GI History: Reports: Hx Cirrhosis, Hx Gastroesophageal Reflux Disease, Hx Ulcer - peptic ulcer, Other GI Disorders - hep C Denies: Hx Crohn's Disease, Hx Hiatal Hernia, Hx Irritable Bowel, Hx Jaundice History: Reports: Hx Acute Renal Failure, Hx Chronic Renal Failure, Hx Dialysis, Hx Renal Disease, Other Problems/Disorders - end stage renal disease, on dialysis Denies: Hx Kidney Infection, Hx Kidney Stones Musculoskeletal History: Reports: Hx Arthritis, Hx Back Problems - chronic pain , Hx Orthopedic Injury Denies: Hx Rheumatoid Arthritis, Hx Bursitis, Hx Tendonitis, Other Musculoskeletal History Sensory History: Reports: Hx Contacts or Glasses, Hx Glaucoma, Hx Vision Problem Denies: Hx Cataracts, Hx Hearing Aid Opthamlomology History: Reports: Hx Contacts or Glasses, Hx Glaucoma, Hx Vision Problem Denies: Hx Cataracts Neurological History: Reports: Hx Headaches, Hx Migraine, Other Neuro Impairments/Disorders - depression Denies: Hx Dementia, Hx Seizures Psychiatric History: Reports: Hx Anxiety, Hx Depression Denies: Hx Eating Disorder, Hx Panic Disorder, Hx Suicide Attempt, Hx of Violent Episodes Against Others, Hx Substance Abuse - Cancer History Hx Chemotherapy: No Hx Radiation Therapy: No Hx Palliative Cancer Treatment: No - Surgical History Surgery Procedure, Year, and Place: HERNIA REPAIR 2012. APPENDECTOMY 2000. LEFT ARM AV FISTULA/CAD - REMOVED. CABG 1 vessel, mitral & tricuspid valve repair March 02, 2014 AT [facility] CONDITIONAL 5 UPTO 3T. POWER PORT. Mitral and tricuspid valve repair Hx Anesthesia Reactions: No - Immunization History Date of Tetanus Vaccine: 2014 Date of Influenza Vaccine: Fall 2015 Infectious Disease History: Yes Infectious Disease History: Reports: Hx Hepatitis - Hep C, Hx of Known/ Suspected MRSA, History Other Infectious Disease - Hepatitis C Denies: Hx Clostridium Difficile, Hx Human Immunodeficiency Virus (HIV), Hx Shingles, Hx Tuberculosis, Hx Known/Suspected VRE, Hx Known/Suspected VRSA, Traveled Outside the in Last 30 Days - Family History Known Family History: Positive: Cardiac Disease, Hypertension, Other - CVA - Social History Alcohol Use: None Alcohol Amount: former EtOH abuse Hx Substance Use: Yes Substance Use Type: Reports: Marijuana Substance Use Comment - Amount & Last Used: today Hx Tobacco Use: Yes Smoking Status (MU): Former Smoker Type: Cigarettes Amount Used/How Often: 1/2 ppd Length of Time of Smoking/Using Tobacco: 10 years Have You Smoked in the Last Year: No Review of Systems Negative: Fever Positive: Other - throat foreign body sensation Positive: Shortness Of Breath, Cough, Other - streaks of blood in sputum Positive: Other - RLE swelling (ankle and foot). Neurological: Other - insomnia All Other Systems Reviewed And Are Negative: Yes Physical Exam - Summary Physical Exam Summary: Appearance: Well-appearing, Well-nourished Skin: Warm Eyes: Normal ENT: Normal Neck: Supple, nontender Respiratory: Bilateral rhonchi inspiratory and expiratory Cardiovascular: Normal Abdomen: Soft, nontender Bowel: Present Musculoskeletal: Strength/ROM Intact, +1 edema bilateral lower extremities, his baseline Neurological: Normal, A&Ox3 Psychiatric: Normal Triage Information Reviewed: Yes Vital Signs On Initial Exam: Initial Vitals Temp Pulse Resp BP Pulse Ox 98.1 F 86 21 185/119 99 09/06/17 02:57 09/06/17 02:57 09/06/17 02:57 09/06/17 02:57 09/06/17 02:57 Vital Signs Reviewed: Yes Diagnostics - Vital Signs Vital Signs Temp Pulse Resp BP Pulse Ox 09/06/17 02:57 98.1 F 86 21 185/119 99 - Laboratory Lab Results: Lab Results 09/06/17 09/06/17 Range/Units 03:50 03:50 WBC 4.1 (3.5-10.8) 10^3/ul RBC 2.70 L (4.0-5.4) 10^6/ul Hgb 7.6 L (14.0-18.0) g/dl Hct 24 L (42-52) % MCV 89 (80-94) fL MCH 28 (27-31) pg MCHC 32 (31-36) g/dl RDW 18 H (10.5-15) % Plt Count 110 L (150-450) 10^3/ul MPV 8 (7.4-10.4) um3 Neut % (Auto) 71.1 (38-83) % Lymph % (Auto) 14.8 L (25-47) % Coke % (Auto) 12.5 H (1-9) % Eos % (Auto) 0.5 (0-6) % Baso % (Auto) 1.1 (0-2) % Absolute Neuts (auto) 2.9 (1.5-7.7) 10^3/ul Absolute Lymphs (auto) 0.6 L (1.0-4.8) 10^3/ul Absolute Monos (auto) 0.5 (0-0.8) 10^3/ul Absolute Eos (auto) 0 (0-0.6) 10^3/ul Absolute Basos (auto) 0 (0-0.2) 10^3/ul Absolute Nucleated RBC 0 10^3/ul Nucleated RBC % 0.1 Sodium 134 (133-145) mmol/L Potassium 5.3 H (3.5-5.0) mmol/L Chloride 98 L (101-111) mmol/L Carbon Dioxide 28 (22-32) mmol/L Anion Gap 8 (2-11) mmol/L BUN 57 H (6-24) mg/dL Creatinine 13.24 H (0.67-1.17) mg/dL Est GFR ( Amer) 4.9 (>60) Est GFR (Non-Af Amer) 3.8 (>60) BUN/Creatinine Ratio 4.3 L (8-20) Glucose 92 (70-100) mg/dL Calcium 9.8 (8.6-10.3) mg/dL Total Bilirubin 0.60 (0.2-1.0) mg/dL AST 33 (13-39) U/L ALT 14 (7-52) U/L Alkaline Phosphatase 68 (34-104) U/L Total Protein 7.5 (6.4-8.9) g/dL Albumin 4.0 (3.2-5.2) g/dL Globulin 3.5 (2-4) g/dL Albumin/Globulin Ratio 1.1 (1-3) Result Diagrams: 09/06/17 03:50 09/06/17 03:50 Lab Statement: Any lab studies that have been ordered have been reviewed, and results considered in the medical decision making process. - Radiology Neck XR Radiology Interpretation Completed By: ED Physician - No evidence of prevertebral soft tissue swelling. No foreign body visualized., Radiologist - Pending official interpretation from radiologist. See [employer]. CXR Radiology Interpretation Completed By: ED Physician - Diffuse pulmonary congestion, stable from prior XR. Stable cardiomegaly., Radiologist - Pending official interpretation from radiologist. See [employer]. - EKG 0431 Cardiac Rate: NL EKG Rhythm: Sinus Rhythm - BPM 89 EKG Interpretation: T-Wave inversions seen in prior Course/Dx - Course Assessment/Plan: pt required bipap for increased work of breathing likely from fluid overload similar to prior hospitalizations. Patient admitted to icu for further treatment - Diagnoses Provider Diagnoses: ESRF (end stage renal failure), Pulmonary edema - Critical Care Time Critical Care Time: 30-74 min Discharge - Discharge Plan Condition: Stable Disposition: ADMITTED TO [facility] Referrals: Marielena Vargas MD [Primary Care Provider] - The documentation as recorded by the Matthew casey Alfonso accurately reflects the service I personally performed and the decisions made by , Sav Vale MD.
[2017-09-06 08:25] LABS: Troponin I 0.06 ng/mL (<0.04)
[2017-09-06] MEDS: oxyCODONE TAB* 5 MG TAB PO PRN (08:43)
[2017-09-06] MEDS ORDERED: Pancrelipase (NF) 12,000 UNITS CAP.DR PO SCH (09:00)
--- NOTE | 2017-09-06 09:09 | RAD ---
Indication: Throat pain. Comparison: None. Technique: AP and lateral views of the neck with soft tissue technique. Report: Unremarkable soft tissue contours. Pharyngeal, laryngeal, and tracheal air columns are normal in contour. The epiglottis is normal. Degenerative changes of the cervical spine includes reversal of the normal cervical lordosis at the upper level, multilevel intervertebral disc height loss with sclerotic change at the articulating services of C4/C5. IMPRESSION: No acute abnormality. If the patient's symptoms persist, follow-up imaging is recommended.
--- NOTE | 2017-09-06 09:10 | RAD ---
INDICATION: Shortness of breath COMPARISON: Most recent comparison chest x-ray September 02, 2017 TECHNIQUE: Single AP view of the chest was obtained. FINDINGS: Stable postoperative findings include a left upper chest cardiac pacemaker and sternotomy wires. There is moderate cardiomegaly similar in appearance to the prior chest x-ray. There are patchy densities overlying the mid-level and bilateral lower lungs with obscuration of the bilateral hemidiaphragm and costophrenic angles. The pulmonary vasculature is engorged and indistinct. IMPRESSION: CHEST X-RAY FINDINGS ARE CONSISTENT WITH CARDIOGENIC PULMONARY EDEMA WITH LIKELY BIBASILAR PLEURAL EFFUSIONS. THE DEGREE OF AERATION IS NOT GREATLY CHANGED SINCE SEPTEMBER 02, 2017 CHEST X-RAY.
[2017-09-06] MEDS: Calcium Acetate CAP* 667 MG PO SCH ×5 (11:15→18:28)
[2017-09-06] MEDS: hydrALAZINE TAB* 25 MG PO SCH ×3 (11:16→20:52)
[2017-09-06] MEDS: Sodium Polystyrene ORAL.SOL* 15 GM/60 ML BTL PO SCH ×2 (11:30→11:48)
[2017-09-06] MEDS: Isosorbide Mononitrate ER TAB* 60 MG PO SCH (11:30)
[2017-09-06] MEDS: amLODIPine TAB* 5 MG PO SCH (11:30)
[2017-09-06] MEDS: Omeprazole CAP* 20 MG PO SCH ×2 (11:31→20:52)
[2017-09-06] MEDS: Folic Acid TAB* 1 MG PO SCH (11:34)
[2017-09-06] MEDS: Furosemide TAB* 40 MG PO SCH (11:35)
[2017-09-06] MEDS: Docusate CAP* 100 MG PO SCH ×2 (11:36→20:53)
[2017-09-06] MEDS: Famotidine TAB* 20 MG PO SCH (11:36)
[2017-09-06] MEDS: CMC:Simvastatin TAB(NF) 10 MG TAB PO SCH (11:45)
[2017-09-06] MEDS: Heparin VIAL(*) 5000 UNITS/ML VIAL (FIVE THOUSAND) SUBCUT SCH ×3 (13:33→21:08)
[2017-09-06] MEDS: Pancrelipase CAP* 5,000 UNITS CAP PO SCH ×3 (13:35→20:51)
--- NOTE | 2017-09-06 13:44 | HP ---
CC: Dr. Marielena Vargas; Dr. Dalal * HISTORY AND PHYSICAL: DATE OF ADMISSION: 09/06/17 TIME OF EVALUATION: 07:20 a.m. PRIMARY CARE PROVIDER: Dr. Marielena Vargas. ENVIRONMENTAL REMEDIATION ENGINEER: Dr. Dalal. CHIEF COMPLAINT: Shortness of breath. HISTORY OF PRESENT ILLNESS: Mr. Templeton is a 67-year-old male well known to the hospitalist service with a complex past medical history that includes end-stage renal disease on hemodialysis on Mondays, Wednesdays, and Fridays; chronic hypertension; coronary artery disease, status post CABG; peripheral vascular disease; history of internal jugular vein thrombosis; GERD; hep C; anemia of chronic disease; chronic pain; status post mitral valve annuloplasty and tricuspid valve repair, status post ICD; cardiomyopathy with ejection fraction of 40% that presented to the emergency room with complaints of shortness of breath. The patient is chronically noncompliant with his medications and diet, but he states that at this time, he did not deviate from his diet and took his medications as indicated. He had his last dialysis on September 04 and he states that he received his full treatment. He states that he follow his diet as prescribed, took his medications as prescribed, but last night he woke up with a "heaviness" in his chest that did not allow him to breath. He denies chest pain, but states that he has pressure and he feels like he cannot get enough air in. He states that his primary care provider has referred him to obtain "throat doctor" to see if he has any problems going on in the area. In the emergency room, the patient was started on BiPAP and at the time of my interview, he states that he is feeling much improved. He denies fever, chills, palpitations, or other complaints. PAST MEDICAL HISTORY: 1. End-stage renal disease, on hemodialysis Mondays, Wednesdays, and Fridays. 2. Hypertension. 3. Coronary artery disease, status post CABG. 4. Peripheral vascular disease. 5. 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 6. GERD. 7. Hepatitis C. 8. Anemia of chronic disease. 9. Chronic pain. 10. Status post mitral valve annuloplasty and tricuspid valve repair in 2013. 11. Status post ICD placement in 2015. 12. Cardiomyopathy with last EF 40%. MEDICATION LIST: The patient states that he does not recall all the names of his medications, but he was recently seen in the emergency room 4 days ago and he states that that list is his accurate list as follows: 1. Albuterol HFA 1 puff inhaled q.4 hours p.r.n. shortness of breath. 2. Albuterol sulfate 1.25 mg inhaled q.i.d. 3. Amlodipine 10 mg p.o. daily. 4. Parul-Dameon 1 tablet p.o. daily. 5. PhosLo 1334 mg p.o. t.i.d. with meals. 6. Carvedilol 25 mg p.o. b.i.d. with meals. 7. Cyclobenzaprine 5 mg p.o. q.8 hours p.r.n. pain. 8. Colace 100 mg p.o. b.i.d. 9. Folic acid 0.5 mg p.o. daily. 10. Furosemide 10 mg p.o. q.a.m. 11. Hydralazine 25 mg p.o. t.i.d. 12. Imdur ER 60 mg p.o. daily. 13. Lorazepam 0.5 to 1 mg p.o. q.6 hours p.r.n. anxiety. 14. Amitiza 24 mcg p.o. b.i.d. 15. Meclizine 25 mg p.o. q.8 hours p.r.n. dizziness. 16. Nitroglycerin 0.4 mg sublingual q.5 minutes p.r.n. chest pain. 17. Omeprazole 40 mg p.o. b.i.d. 18. Ondansetron 4 mg p.o. q.6 hours p.r.n. nausea. 19. Pancrelipase 1 capsule p.o. q.i.d. 20. Ranitidine 150 mg p.o. daily. 21. Simethicone 80 mg p.o. q.8 hours p.r.n., nausea. 22. Simvastatin 5 mg p.o. q.a.m. 23. Kayexalate 15 g p.o. daily. 24. Sucroferric oxyhydroxide 1000 mg p.o. t.i.d. with meals. ALLERGIES: With ASPIRIN, the patient has unknown reaction and with HYDROMORPHONE, the patient "felt like a junky." FAMILY HISTORY: Mother had a history of heart disease and stroke. SOCIAL HISTORY: The patient is a former smoker. No history of alcohol abuse. He occasionally smokes marijuana. Surrogate decision maker is his partner, Marjorie Rubio, phone number is [phone] and his brother, Joe Templeton, [phone]. REVIEW OF SYSTEMS: A 14-point review of systems was performed and all other pertinent negatives and positives findings are in the HPI. PHYSICAL EXAMINATION GENERAL: The patient is an -[place] male, sitting up in the ER stretcher with BiPAP in place, in no acute distress. VITAL SIGNS: Temperature 98.1, heart rate 85, respiratory rate is 20, oxygen saturation is 100% on BiPAP, blood pressure on ER arrival was 185/119 and it is now 178/121. HEENT: Pupils are equal. Moist mucous membranes. CVS: Normal S1, S2. Regular rate and rhythm. Systolic murmur. CHEST: Breath sounds present bilaterally with no added sounds. ABDOMEN: Soft. Bowel sounds are present. EXTREMITIES: No edema. NEURO: He is alert and oriented x3. Able to move all 4 extremities. LABORATORY AND IMAGING DATA: The patient had a CBC that showed a WBC of 4.1, hemoglobin of 7.6, hematocrit of 24, platelets of 110 with 71% neutrophils. Chemistry showed a sodium of 134, potassium 5.3, chloride of 98, bicarbonate of 28, BUN of 57, creatinine of 13.2, glucose of 92, calcium 9.8. LFTs are normal. Troponin is pending at the time of this dictation. EKG done on September 06 at 4:31 a.m. showed sinus rhythm at 89 beats per minute with signs of LVH. No significant change when compared to his prior EKG from September 02. Chest x-ray was not officially read yet, but to my read it shows moderate vascular congestion with bilateral effusions, but this does not appear to be significantly changed from his prior chest x-ray from September 02. Soft tissue neck x-ray report is also pending at this time. I do not see any growth, masses, but we will follow the official report. ASSESSMENT AND PLAN: Mr. Templeton is a 67-year-old male with a past medical history of end-stage renal disease with hemodialysis, noncompliance; hypertension; coronary artery disease, status post CABG; peripheral vascular disease; internal jugular vein thrombosis, status post treatment with Coumadin; gastroesophageal reflux disease; hepatitis C; anemia of chronic disease; chronic pain; status post mitral valve annuloplasty and tricuspid valve repair in 2013; status post ICD placement in 2016; cardiomyopathy with ejection fraction of 40% that presented to the emergency room with complaints of chest pressure and shortness of breath. 1. Acute respiratory failure. I believe this is secondary to fluid overload and knowing this patient history, the most likely cause is noncompliance with medication and diet. The patient denies both, but he has denied this in the past also. He will be continued on BiPAP. He will be admitted to the intensive care unit and he will receive all his usual antihypertensives. If his blood pressure remains uncontrolled, I may start him on a drip (Cardene or nitro drip) for blood pressure control. His last dialysis was on Thursday and he does not appear to be severely fluid overloaded at this time, but if he does not respond to blood pressure control, we will contact Dr. Dalal and see if he feels urgent dialysis is indicated. His complaints of shortness of breath are frequent and this is his third visit this week with similar complaints. His EKG shows no new changes. I am going to check serial troponins to rule out acute coronary syndrome, but I believe the source of his symptoms at this point is noncompliance with uncontrolled hypertension. 2. End-stage renal disease. For now, we will continue dialysis as scheduled on Thursday, Thursday, Fridays unless he does not respond to current treatment and requires urgent dialysis today. 3. Mild hyperkalemia. The patient will receive Kayexalate. 4. History of coronary artery disease. The patient will be continued on beta- chris, long-acting nitrate, and statin. 5. Uncontrolled hypertension. The patient will receive amlodipine, carvedilol , furosemide, hydralazine, Imdur and we will monitor his blood pressure. 6. DVT prophylaxis. The patient has a score of 5 on the DVT prophylaxis assessment guide and he will be started on subcutaneous heparin. 7. Code status is full. TIME SPENT: Approximately 60 minutes were spent with the patient interview, medical records review, physical examination to complete this admission; more than half of this time was spent [id number] with the patient and coordination of care. [id number]/[facility] #: [id number] STEPHANIE
[2017-09-06] MEDS: niCARdipine 0.1MG/ML IVPREMIX* 20 MG/200 ML BAG IV SCH ×2 (15:14→20:52)
[2017-09-06] MEDS: Albuterol/Ipratropium NEB.SOL* Albuterol 2.5 MG/Ipratropium 0.5 MG 3 ML INH PRN (17:19)
[2017-09-06] MEDS: Carvedilol TAB* 25 MG PO SCH (18:25)
[2017-09-07] MEDS: Albuterol/Ipratropium NEB.SOL* Albuterol 2.5 MG/Ipratropium 0.5 MG 3 ML INH PRN (00:28)
[2017-09-07] MEDS: niCARdipine 0.1MG/ML IVPREMIX* 20 MG/200 ML BAG IV SCH (05:10)
[2017-09-07] MEDS: Heparin VIAL(*) 5000 UNITS/ML VIAL (FIVE THOUSAND) SUBCUT SCH ×2 (06:05→13:58)
[2017-09-07 06:12] LABS: Hematocrit 21 % (42-52); Hemoglobin 6.8 g/dl (14.0-18.0); Mean Corpuscular HGB Conc 32 g/dl (31-36); Mean Corpuscular Hemoglobin 28 pg (27-31); Mean Corpuscular Volume 88 fL (80-94); Mean Platelet Volume 8 um3 (7.4-10.4); Red Blood Count 2.42 10^6/ul (4.0-5.4); Red Cell Distribution Width 19 % (10.5-15); White Blood Count 4.3 10^3/ul (3.5-10.8)
[2017-09-07 06:14] LABS: Comments Flag Yes
[2017-09-07 06:34] LABS: BUN/Creatinine Ratio 4.8 (8-20); Calcium 9.4 mg/dL (8.6-10.3); EGFR African American 4.5 (>60); EGFR Non-African American 3.5 (>60)
[2017-09-07 06:51] LABS: Potassium 6.7 mmol/L (3.5-5.0)
[2017-09-07] MEDS ORDERED: Sodium Polystyrene ORAL.SOL* 15 GM/60 ML BTL PO STA (07:14)
[2017-09-07] MEDS ORDERED: Insulin REGULAR(*) 1 UNITS UNIT IV PUSH ONE (07:19)
[2017-09-07] MEDS ORDERED: Dextrose 50% Syringe 50 ML* 25 GM/50 ML SYRINGE IV PUSH ONE (08:00)
[2017-09-07] MEDS ORDERED: Calcium Gluconate INJ* 1 GM in NS 0.9% 50 ML* 50 ML IVPB ONE (08:00)
[2017-09-07] MEDS: Furosemide TAB* 40 MG PO SCH (09:00)
[2017-09-07] MEDS: Docusate CAP* 100 MG PO SCH ×2 (09:00→09:12)
[2017-09-07] MEDS: Famotidine TAB* 20 MG PO SCH (09:01)
[2017-09-07] MEDS: Isosorbide Mononitrate ER TAB* 60 MG PO SCH (09:01)
[2017-09-07] MEDS: Omeprazole CAP* 20 MG PO SCH (09:01)
[2017-09-07] MEDS: amLODIPine TAB* 5 MG PO SCH (09:01)
[2017-09-07] MEDS: hydrALAZINE TAB* 25 MG PO SCH (09:01)
[2017-09-07] MEDS: Folic Acid TAB* 1 MG PO SCH (09:01)
[2017-09-07] MEDS: Sodium Polystyrene ORAL.SOL* 15 GM/60 ML BTL PO SCH (09:09)
[2017-09-07] MEDS: Pancrelipase CAP* 5,000 UNITS CAP PO SCH ×2 (09:09→14:07)
[2017-09-07] MEDS: Calcium Acetate CAP* 667 MG PO SCH ×2 (09:09→12:25)
[2017-09-07] MEDS: Carvedilol TAB* 25 MG PO SCH (09:12)
[2017-09-07] MEDS: oxyCODONE TAB* 5 MG TAB PO PRN (09:23)
[2017-09-07] MEDS: CMC:Simvastatin TAB(NF) 10 MG TAB PO SCH (11:20)
[2017-09-07] MEDS ORDERED: Heparin DIALYSIS ONLY(*) 1,000 UNITS/ML VIAL DIALYSIS ONE (13:00)
[2017-09-07] MEDS ORDERED: Epoetin Alfa* 10,000 UNITS/ML VIAL IV ONE (13:00)
--- NOTE | 2017-09-07 13:30 | PN ---
Subjective Date of Service: 09/07/17 Interval History: Admitted with SOB, chronic chest discomforts and hypertensive urgency requiring nicardipine gtt since 1500 yesterday. Hyperkalemia much worse with K to 6.7 from 5.3 (refused kayexalate on admission and then again this AM). Bumped buttock on toilet this AM and noticed some blood per rectum. Hx of hemorroids. Hgb 6.8 (8.3 few days ago). getting 1 u pRBC with dialysis. This AM said he felt better breathing neal and asking if he will discharge today. Objective Active Medications: Acetaminophen (Tylenol Tab*) 650 mg PO Q6H PRN PRN Reason: pain/fever Albuterol (Ventolin Hfa Inhaler*) 1 puff INH Q4H PRN PRN Reason: SHORTNESS OF BREATH Last Admin: 09/06/17 14:01 Dose: 1 puff Albuterol/Ipratropium (Duoneb (Albuterol 2.5 Mg/Ipratropium 0.5 Mg)) 1 neb INH Q4H PRN PRN Reason: SOB/WHEEZING Last Admin: 09/07/17 00:28 Dose: 1 neb Amlodipine Besylate (Norvasc Tab*) 10 mg PO DAILY [facility] Last Admin: 09/07/17 09:01 Dose: 10 mg Calcium Acetate (Phoslo Cap*) 1,334 mg PO TID WITH MEALS [facility] Last Admin: 09/07/17 12:25 Dose: Not Given Carvedilol (Coreg Tab*) 25 mg PO BID WITH MEALS [facility] Last Admin: 09/07/17 09:12 Dose: 25 mg Cyclobenzaprine HCl (Flexeril Tab*) 5 mg PO Q8HR PRN PRN Reason: PAIN Last Admin: 09/06/17 13:34 Dose: 5 mg Docusate Sodium (Colace Cap*) 100 mg PO BID [facility] Last Admin: 09/07/17 09:12 Dose: Not Given Famotidine (Pepcid Tab*) 20 mg PO DAILY [facility] PRN Reason: Protocol Last Admin: 09/07/17 09:01 Dose: 20 mg Folic Acid (Folvite Tab*) 0.5 mg PO DAILY [facility] Last Admin: 09/07/17 09:01 Dose: 0.5 mg Furosemide (Lasix Tab*) 20 mg PO QAM [facility] Last Admin: 09/07/17 09:00 Dose: 20 mg Heparin Sodium (Porcine) (Heparin Vial(*)) 5,000 units SUBCUT Q8HR [facility] Last Admin: 09/07/17 06:05 Dose: Not Given Hydralazine HCl (Apresoline Tab*) 25 mg PO TID [facility] Last Admin: 09/07/17 09:01 Dose: 25 mg Nicardipine/Sodium Chloride (Cardene 0.1mg/Ml Ivpremix*) 20 mg in 200 mls @ 50 mls/hr IV .(as Initial Rate) [facility] PRN Reason: 5 MG/HR Last Admin: 09/07/17 05:10 Dose: 50 mls/hr Isosorbide Mononitrate (Imdur Er Tab*) 60 mg PO DAILY [facility] Last Admin: 09/07/17 09:01 Dose: 60 mg Lorazepam (Ativan Tab(*)) 0.5 mg PO Q6H PRN PRN Reason: ANXIETY Last Admin: 09/06/17 13:33 Dose: 0.5 mg Meclizine HCl (Antivert Tab*) 25 mg PO Q8HR PRN PRN Reason: DIZZINESS Nitroglycerin (Nitroglycerin Tab 0.4 Mg*) 0.4 mg SL Q5M PRN PRN Reason: PAIN - CHEST Omeprazole (Prilosec Cap*) 40 mg PO BID [facility] Last Admin: 09/07/17 09:01 Dose: 40 mg Ondansetron HCl (Zofran Tab*) 4 mg PO Q6HR PRN PRN Reason: NAUSEA Oxycodone HCl (Roxycodone Tab*) 15 mg PO Q6H PRN PRN Reason: PAIN Last Admin: 09/07/17 09:23 Dose: 15 mg Pancrelipase (Zenpep Delayed Cap*) 10,000 units PO QID [facility] Last Admin: 09/07/17 09:09 Dose: 10,000 units Simethicone (Mylicon Tab*) 80 mg PO Q8HR PRN PRN Reason: NAUSEA/VOMITING Simvastatin (Zocor(Nf)) 5 mg PO QAM [facility] Last Admin: 09/07/17 11:20 Dose: 5 mg Sodium Polystyrene Sulfonate (Kayexalate Oral.Joanna*) 15 gm PO DAILY [facility] Last Admin: 09/07/17 09:09 Dose: Not Given Vital Signs 09/06/17 09/06/17 09/06/17 13:33 14:00 14:01 Temperature Pulse Rate 91 89 Respiratory 15 26 22 Rate Blood Pressure 179/120 (mmHg) O2 Sat by Pulse 96 93 Oximetry 09/06/17 09/06/17 09/06/17 14:43 15:00 15:25 Temperature Pulse Rate 89 86 90 Respiratory 20 10 12 Rate Blood Pressure 158/118 161/107 175/116 (mmHg) O2 Sat by Pulse 96 96 97 Oximetry 09/06/17 09/06/17 09/06/17 15:30 15:35 15:40 Temperature Pulse Rate 86 86 86 Respiratory 12 11 10 Rate Blood Pressure 169/111 152/106 124/98 (mmHg) O2 Sat by Pulse 96 95 95 Oximetry 09/06/17 09/06/17 09/06/17 15:45 15:50 15:55 Temperature Pulse Rate 85 85 84 Respiratory 11 16 7 Rate Blood Pressure 128/86 124/94 136/94 (mmHg) O2 Sat by Pulse 94 94 95 Oximetry 09/06/17 09/06/17 09/06/17 16:00 16:15 16:30 Temperature Pulse Rate 84 83 83 Respiratory 13 11 15 Rate Blood Pressure 134/89 134/87 143/87 (mmHg) O2 Sat by Pulse 94 94 94 Oximetry 09/06/17 09/06/17 09/06/17 16:45 17:00 17:15 Temperature Pulse Rate 82 80 89 Respiratory 10 12 11 Rate Blood Pressure 147/96 145/92 144/94 (mmHg) O2 Sat by Pulse 95 96 96 Oximetry 09/06/17 09/06/17 09/06/17 17:19 17:30 17:45 Temperature Pulse Rate 88 90 88 Respiratory 14 16 9 Rate Blood Pressure 149/98 149/99 (mmHg) O2 Sat by Pulse 97 96 96 Oximetry 09/06/17 09/06/17 09/06/17 18:00 18:15 18:23 Temperature Pulse Rate 84 89 90 Respiratory 12 14 12 Rate Blood Pressure 137/91 158/104 152/98 (mmHg) O2 Sat by Pulse 95 96 97 Oximetry 09/06/17 09/06/17 09/06/17 18:31 18:45 19:00 Temperature Pulse Rate 96 93 89 Respiratory 21 12 12 Rate Blood Pressure 162/101 153/95 154/99 (mmHg) O2 Sat by Pulse 89 93 94 Oximetry 09/06/17 09/06/17 09/06/17 19:15 19:30 19:44 Temperature 98.2 F Pulse Rate 84 84 Respiratory 8 13 Rate Blood Pressure 133/89 132/91 (mmHg) O2 Sat by Pulse 94 95 Oximetry 09/06/17 09/06/17 09/06/17 19:45 20:00 20:15 Temperature Pulse Rate 82 81 79 Respiratory 8 9 10 Rate Blood Pressure 131/85 138/90 127/83 (mmHg) O2 Sat by Pulse 94 94 96 Oximetry 09/06/17 09/06/17 09/06/17 20:23 20:30 20:45 Temperature Pulse Rate 82 80 82 Respiratory 13 11 16 Rate Blood Pressure 127/83 140/94 143/90 (mmHg) O2 Sat by Pulse 94 95 95 Oximetry 09/06/17 09/06/17 09/06/17 21:00 21:15 21:30 Temperature Pulse Rate 81 80 81 Respiratory 15 10 16 Rate Blood Pressure 129/89 122/88 126/82 (mmHg) O2 Sat by Pulse 94 95 96 Oximetry 09/06/17 09/06/17 09/06/17 21:45 22:00 22:15 Temperature Pulse Rate 80 79 81 Respiratory 13 23 10 Rate Blood Pressure 125/79 134/83 133/82 (mmHg) O2 Sat by Pulse 97 96 95 Oximetry 09/06/17 09/06/17 09/06/17 22:30 22:44 22:45 Temperature Pulse Rate 81 80 82 Respiratory 10 17 14 Rate Blood Pressure 129/79 116/75 (mmHg) O2 Sat by Pulse 97 97 89 Oximetry 09/06/17 09/06/17 09/06/17 23:00 23:15 23:30 Temperature Pulse Rate 82 80 80 Respiratory 15 17 4 Rate Blood Pressure 131/78 125/81 136/86 (mmHg) O2 Sat by Pulse 89 87 92 Oximetry 09/06/17 09/06/17 09/07/17 23:45 23:46 00:00 Temperature 99.2 F Pulse Rate 78 81 Respiratory 9 20 Rate Blood Pressure 135/89 126/86 (mmHg) O2 Sat by Pulse 93 90 Oximetry 09/07/17 09/07/17 09/07/17 00:15 00:29 00:35 Temperature Pulse Rate 78 76 76 Respiratory 17 20 19 Rate Blood Pressure 135/88 140/98 (mmHg) O2 Sat by Pulse 92 97 97 Oximetry 09/07/17 09/07/17 09/07/17 00:45 01:00 01:15 Temperature Pulse Rate 73 72 69 Respiratory 11 14 15 Rate Blood Pressure 140/97 144/91 136/88 (mmHg) O2 Sat by Pulse 97 95 97 Oximetry 09/07/17 09/07/17 09/07/17 01:30 01:45 02:00 Temperature Pulse Rate 68 65 65 Respiratory 12 14 14 Rate Blood Pressure 132/91 140/87 134/92 (mmHg) O2 Sat by Pulse 99 99 98 Oximetry 09/07/17 09/07/17 09/07/17 02:15 02:30 02:45 Temperature Pulse Rate 64 63 62 Respiratory 16 10 12 Rate Blood Pressure 134/88 133/84 125/87 (mmHg) O2 Sat by Pulse 99 100 99 Oximetry 09/07/17 09/07/17 09/07/17 03:00 03:15 03:30 Temperature Pulse Rate 61 63 61 Respiratory 10 13 11 Rate Blood Pressure 128/90 128/83 120/82 (mmHg) O2 Sat by Pulse 98 99 97 Oximetry 09/07/17 09/07/17 09/07/17 03:45 04:00 05:00 Temperature 97.1 F Pulse Rate 61 65 68 Respiratory 12 12 14 Rate Blood Pressure 125/82 127/83 141/93 (mmHg) O2 Sat by Pulse 100 100 94 Oximetry 09/07/17 09/07/17 09/07/17 05:02 05:15 05:30 Temperature Pulse Rate 66 66 63 Respiratory 14 13 18 Rate Blood Pressure 145/93 149/99 (mmHg) O2 Sat by Pulse 93 100 Oximetry 09/07/17 09/07/17 09/07/17 06:00 06:22 07:00 Temperature Pulse Rate 63 64 53 Respiratory 18 13 14 Rate Blood Pressure 127/86 131/87 (mmHg) O2 Sat by Pulse 100 98 99 Oximetry 09/07/17 09/07/17 09/07/17 07:33 08:00 09:00 Temperature 98.8 F Pulse Rate 54 60 Respiratory 16 16 Rate Blood Pressure 137/84 144/84 (mmHg) O2 Sat by Pulse 98 93 Oximetry 09/07/17 09/07/1709/07/17 09:38 10:00 11:00 Temperature Pulse Rate 60 72 68 Respiratory 16 11 13 Rate Blood Pressure 154/102 143/81 (mmHg) O2 Sat by Pulse 93 96 96 Oximetry 09/07/17 09/07/17 09/07/17 11:34 11:45 12:00 Temperature 97.3 F Pulse Rate 60 60 59 Respiratory 12 12 20 Rate Blood Pressure 127/78 124/76 121/78 (mmHg) O2 Sat by Pulse 92 93 94 Oximetry 09/07/17 12:02 Temperature Pulse Rate 60 Respiratory 7 Rate Blood Pressure 125/79 (mmHg) O2 Sat by Pulse 95 Oximetry Oxygen Devices in Use Now: Nasal Cannula Appearance: NAD Eyes: No Scleral Icterus, PERRLA Ears/Nose/Mouth/Throat: NL Teeth, Lips, Gums, Mucous Membranes Moist Neck: NL Appearance and Movements; NL JVP, Trachea Midline Respiratory: - - decreased at left base. Cardiovascular: - - s1 s2 slightly bradycardic. no m/r/g Abdominal: - - distended, slightly tender. no rebound or guarding Extremities: No Edema, No Clubbing, Cyanosis Skin: No Rash or Ulcers, No Nodules or Sclerosis Neurological: Alert and Oriented x 3, NL Sensation, NL Muscle Strength and Tone Result Diagrams: 09/07/17 05:54 09/07/17 05:54 Additional Lab and Data: Lab Results Laboratory Results - last 24 hr 09/06/17 09/07/17 09/07/17 18:18 05:54 05:54 WBC 4.3 RBC 2.42 L Hgb 6.8 L Hct 21 L MCV 88 MCH 28 MCHC 32 RDW 19 H Plt Count 108 L MPV 8 Sodium 134 Potassium 6.7 H* Chloride 100 L Carbon Dioxide 27 Anion Gap 7 BUN 68 H Creatinine 14.15 H Est GFR ( Amer) 4.5 Est GFR (Non-Af Amer) 3.5 BUN/Creatinine Ratio 4.8 L Glucose 85 Calcium 9.4 Influenza A (Rapid) Negative Influenza B (Rapid) Negative Blood Type Antibody Screen Crossmatch 09/07/17 05:54 WBC RBC Hgb Hct MCV MCH MCHC RDW Plt Count MPV Sodium Potassium Chloride Carbon Dioxide Anion Gap BUN Creatinine Est GFR ( Amer) Est GFR (Non-Af Amer) BUN/Creatinine Ratio Glucose Calcium Influenza A (Rapid) Influenza B (Rapid) Blood Type O Positive Antibody Screen Negative Crossmatch See Detail Microbiology and Other Data: Microbiology 09/06/17 18:04 Nasal Nasal Screen MRSA (PCR)(PER) - Final Mrsa Positive 09/06/17 18:04 Nasal Influenza Types A,B Antigen (PER) - Final Specimen received for Influenza A/B Molecular testing Assess/Plan/Problems-Billing Assessment: 67 yo male PMH ESRD (HD MWF), Hep C, drug use, multiple admissions/ED visits, HTN, CAD s/p CABG, Anemia of Chronic Disease, hemorrhoids, medication noncompliance p/w with SOB for 3rd time in 8 days(2 ED d/c). Hypertensive urgency on nicardipine gtt. Worsening hyperkalemia to 6.7, refusing meds. blood per rectum with Hgb to 6.8, getting emergent dialysis and 1 u pRBC - Patient Problems (1) Hypertensive urgency Current Visit: No Status: Acute Code(s): I16.0 - HYPERTENSIVE URGENCY SNOMED Code(s): 968338953 Comment: nicardipine gtt for 21 hours, now off after dialysis. Asked to take off as much fluid as possible regardless of baseline "dry weight" as he has been volume overloaded entire week increase hydralazine to 50mg TID from 25mg TID. coreg 25mg BID. amlodipine 10mg imdur 60mg [lasix 20mg] but not clear making urine or what the utility at this dose would be, consider d/c. (2) Acute hyperkalemia Current Visit: No Status: Acute Code(s): E87.5 - HYPERKALEMIA SNOMED Code( s): 8910506 Comment: K to 6.7. Stat EKG no peaked T waves and refused kayexalate (twice now). s/p 50g dextrose and 10U regular insulin. repeat BMP this afternoon after dialysis. (3) Bright red blood per rectum Current Visit: No Status: Acute Code(s): K62.5 - HEMORRHAGE OF ANUS AND RECTUM SNOMED Code(s): 547771930 Comment: H/H falling to 6.8. Type and screen. Transfuse 1 u pRBC. Hx of hemorrhoids. Had surgery ~ 1yr ago. Readdress as outpatient. (4) ESRF (end stage renal failure) Current Visit: No Status: Acute Code(s): N18.6 - END STAGE RENAL DISEASE SNOMED Code(s): 16432048 Comment: Emergent Dialysis indicated for hyperkalemia, SOB, volume overload, hypertensive urgency (5) SOB (shortness of breath) Current Visit: No Status: Acute Priority: High Onset Date: 10/22/14 Code (s): R06.02 - SHORTNESS OF BREATH SNOMED Code(s): 094967433 Comment: Fluid overload. (6) Coronary artery disease Current Visit: No Status: Chronic Priority: Medium Code(s): I25.10 - ATHSCL HEART DISEASE OF [place] CORONARY ARTERY W/O ANG PCTRS SNOMED Code(s): 65835990 Comment: Continue simvastatin. (7) Opioid abuse Current Visit: Yes Status: Acute Code(s): F11.10 - OPIOID ABUSE, UNCOMPLICATED SNOMED Code(s): 7211321 Comment: reports of chronic chest pains. reports of drugs in house making unsafe for home services. also on flexeril Status and Disposition: medicine, currently observation status. switch to inpatient if stays another day. depending on HTN, repeat BMP. Attending: Jorge Alberto Johnson
[2017-09-07] MEDS ORDERED: hydrALAZINE TAB* 25 MG PO SCH (13:51)
[2017-09-07 14:58] LABS: Hematocrit 25 % (42-52); Hemoglobin 8.1 g/dl (14.0-18.0); Mean Corpuscular HGB Conc 32 g/dl (31-36); Mean Corpuscular Hemoglobin 28 pg (27-31); Mean Corpuscular Volume 88 fL (80-94); Mean Platelet Volume 8 um3 (7.4-10.4); Red Blood Count 2.87 10^6/ul (4.0-5.4); Red Cell Distribution Width 19 % (10.5-15); White Blood Count 4.7 10^3/ul (3.5-10.8)
[2017-09-07 15:14] LABS: BUN/Creatinine Ratio 4.5 (8-20); Calcium 9.2 mg/dL (8.6-10.3); EGFR African American 7.3 (>60); EGFR Non-African American 5.7 (>60); Potassium 4.3 mmol/L (3.5-5.0)
[2017-09-07 15:16] VITALS: BP 156/96
--- NOTE | 2017-09-08 05:41 | DS ---
DISCHARGE SUMMARY: DATE OF ADMISSION: 09/06/17 DATE OF DISCHARGE: (Leaving Against Medical Advice) 09/07/17. ATTENDING PHYSICIAN: Natalia Martin MD; Jorge Alberto Johnson MD PRIMARY CARE PHYSICIAN: Marielena Vargas MD RD PROJECT MANAGER: Dr. Dalal. 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 He is a frequent utilizer of hospital and history of reported noncompliance with medications, diet, and reported exposure to drugs in the household which make it difficult to set him up with home services. On the night prior to admission he says he woke with heaviness in his chest that did not allow him to breathe. His last dialysis was as scheduled on Thursday, September 04. [place] [facility] [place], was started on BiPAP and was feeling improved. He was noted to be in hypertensive urgency/emergency with blood pressures initially 185/119 but creeping up to high of 228/119 and diastolics as high as 139. Started on a nicardipine drip once he got to the ICU. Initial laboratories evaluated which were significant for potassium of 5.3 , creatinine of 13.2, troponins were 0.06, then 0.05 on repeat. He was flu negative. He refused initial Kayexalate treatment on the day of admission. By the morning of day #2 his potassium had risen to 6.7 and stat EKG was obtained. No peaked T-waves. He got 10 units of regular insulin and 50 mg of dextrose. He again refused Kayexalate and the emergent dialysis was requested. His hemoglobin on admission was 7.6, downtrended to 6.8 on hospital day #2 and had been 8.3 on the . He has been mostly in the mid 's in early June downtrending to the mid 8's. He has a history of internal hemorrhoids and reported that he bumped his buttocks on the toilet on the morning of discharge and had some bright red blood per rectum. He got 1 unit of blood transfused with hemodialysis after type and screen and consent. The patient was feeling improved. His blood pressures stabilized after hemodialysis and nicardipine drip was able to be weaned off. He, the moment hemodialysis finished, demanded to leave against medical advice, calling himself a cab. The risks involved with disposition were explained to him and repeat BMP is still pending. His hemoglobin after dialysis did improve to 8.1 from 6.8. He was recommended to follow up with his primary care provider Dr. Vargas and Dr. Avila to address as an outpatient possible return of his hemorrhoids for possible banding or other . The patient was asked if there are any other resources that would be available to him that would help him stay out of the hospital and could not provide any thoughts of that matter. DISCHARGE MEDICATIONS: Include: 1. Coreg 25 mg p.o. b.i.d. 2. PhosLo 1334 mg p.o. t.i.d. with meals. 3. Amlodipine 10 mg daily. 4. Albuterol inhaler MDI q.4 hours p.r.n. 5. Flexeril 5 mg p.o. q.8 hours p.r.n. 6. Docusate 100 mg p.o. b.i.d. 7. Folic acid 0.5 mg p.o. daily. 8. Furosemide 20 mg p.o. q.a.m. 9. Hydralazine 50 mg p.o. t.i.d. increased from 25 mg p.o. t.i.d. 10. Imdur 60 mg p.o. daily. 11. Ativan 0.5 to 1 mg p.o. q.6 hours p.r.n. 12. Meclizine 25 mg p.o. q.8 hours. 13. Nitroglycerin tab 0.4 mg sublingual q.5 minutes p.r.n. chest pain. 14. Omeprazole 40 mg p.o. b.i.d. 15. Zofran 4 mg p.o. q.6 hours p.r.n. 16. Pancrelipase 12,000 unit capsule p.o. q.i.d. 17. Ranitidine 150 mg p.o. daily. 18. Simethicone 80 mg p.o. q.8 hours. 19. Simvastatin 5 mg p.o. q.a.m. 20. B-complex 1 tab p.o. daily. 21. Amitiza 24 mcg p.o. b.i.d. 22. Sucroferric oxyhydroxide 1000 mg p.o. t.i.d. DISCHARGE DIET: Heart healthy renal diet, unchanged. ACTIVITY LEVEL: No restrictions, unchanged. FOLLOWUP: Please follow up with Dr. Vargas and Dr. Avila. TIME SPENT: On discharge 35 minutes. [id number]/[facility] #: [id number] MTDD
== END 2017-09-07 15:30 | disposition left against medical advice (07) ==
LOC: ED 02:54 → ICU 07:38
PROVIDERS: ADMIT Internal Medicine; ATTEND Internal Medicine
DX: J96.00 Acute respiratory failure, unspecified whether with hypoxia or hypercapnia (principal); R06.02 Shortness of breath; I13.2 Hypertensive heart and chronic kidney disease with heart failure and with stage 5 chronic kidney disease, or end stage renal disease; I50.9 Heart failure, unspecified; N18.6 End stage renal disease; Z99.2 Dependence on renal dialysis; E87.5 Hyperkalemia; K62.5 Hemorrhage of anus and rectum; I25.119 Atherosclerotic heart disease of native coronary artery with unspecified angina pectoris; Z95.1 Presence of aortocoronary bypass graft; I73.9 Peripheral vascular disease, unspecified; B19.20 Unspecified viral hepatitis C without hepatic coma; K21.9 Gastro-esophageal reflux disease without esophagitis; D63.8 Anemia in other chronic diseases classified elsewhere; G89.29 Other chronic pain; I42.9 Cardiomyopathy, unspecified; Z95.810 Presence of automatic (implantable) cardiac defibrillator; Z79.899 Other long term (current) drug therapy; Z87.891 Personal history of nicotine dependence; Z86.718 Personal history of other venous thrombosis and embolism; F11.10 Opioid abuse, uncomplicated; R94.31 Abnormal electrocardiogram [ECG] [EKG]
CPT/HCPCS: 36415; 36430; 70360; 71010; 80048; 80053; 84484; 85025; 85027; 86850; 86900; 86901; 86922; 87502; 87641; 93005; 94640; 94660; 96374; 96375; 96376; 99291; A9270-GY; G0378; J0610; J0885; J1644; J2270; P9040

== ENCOUNTER 2017-09-10 03:04 | Emergency (ER) | payer MEDICARE, MEDICAID ==
[2017-09-10] MEDS ORDERED: LORazepam INJ* 2 MG/ML 1 ML VIAL IV PUSH ONE (03:34)
[2017-09-10] MEDS ORDERED: Albuterol/Ipratropium NEB.SOL* Albuterol 2.5 MG/Ipratropium 0.5 MG 3 ML INH ONE (03:35)
[2017-09-10 04:13] LABS: Hematocrit 29 % (42-52); Hemoglobin 9.1 g/dl (14.0-18.0); Mean Corpuscular HGB Conc 32 g/dl (31-36); Mean Corpuscular Hemoglobin 28 pg (27-31); Mean Corpuscular Volume 89 fL (80-94); Mean Platelet Volume 8 um3 (7.4-10.4); Red Blood Count 3.25 10^6/ul (4.0-5.4); Red Cell Distribution Width 18 % (10.5-15); White Blood Count 4.5 10^3/ul (3.5-10.8)
[2017-09-10 04:21] LABS: BUN/Creatinine Ratio 4.7 (8-20); Calcium 9.3 mg/dL (8.6-10.3); EGFR African American 6.9 (>60); EGFR Non-African American 5.3 (>60); Globulin 3.7 g/dL (2-4); Magnesium 2.4 mg/dL (1.9-2.7); Potassium 4.6 mmol/L (3.5-5.0); Total Bilirubin 0.5 mg/dL (0.2-1.0); Total Protein 7.7 g/dL (6.4-8.9)
[2017-09-10 04:34] LABS: Troponin I 0.05 ng/mL (<0.04)
[2017-09-10 05:02] VITALS: BP 165/113
--- NOTE | 2017-09-10 05:16 | ED ---
Celine Briones Nilda, scribcarlyle for Yuly Ponce MD on 09/10/17 at 0329 . Shortness of Breath - HPI Summary HPI Summary: This patient is a 67 year old M BIBA presenting to [facility] with a chief complaint of waking up to constant severe SOB that began 1.5 hours ago. Pt states he received dialysis yesterday morning. Symptoms aggravated and alleviated by nothing. Patient reports chest wall pain and minimal urination but denies N/V. Pt states he is on 3L O2 at home. He notes 2 leaky valves in heart. No PMHx anxiety or panic attacks. - History of Current Complaint Chief Complaint: EDShortnessOfBreath Time Seen by Provider: 09/10/17 03:15 Hx Obtained From: Patient Onset/Duration: Sudden Onset, Lasting Hours, Still Present Timing: Constant Current Severity: Moderate Dyspnea At: Rest Aggrevating Factors: Nothing Alleviating Factors: Nothing Associated Signs & Symptoms: Chest Pain Unrelated to Cough - Allergy/Home Medications Allergies/Adverse Reactions: Allergies Allergy/AdvReac Type Severity Reaction Status Date / Time Aspirin Allergy Unknown See Comment Verified 08/18/17 16:40 Hydromorphone [From Dilaudid] AdvReac Intermediate Unknown Verified 08/19/17 08: 58 Reaction Details PMH/Surg Hx/FS Hx/Imm Hx Endocrine/Hematology History: Reports: Hx Blood Transfusions, Hx Sickle Cell Disease - Was told had sickle cell at one point but denies, Hx Anemia Denies: Hx Anticoagulant Therapy, Hx Bone Marrow Disease, Hx Diabetes, Hx Thyroid Disease Cardiovascular History: Reports: Hx Angina, Hx Auto Implanted Cardiovert Defib, Hx Congestive Heart Failure, Hx Coronary Artery Disease, Hx Deep Vein Thrombosis , Hx Hypertension, Hx Pacemaker/ICD, Hx Peripheral Vascular Disease, Hx Syncope , Other Cardiovascular Problems/Disorders - cardiomegaly, mitral valve and tricuspid valve repair Denies: Hx Cardiomegaly, Hx Hypercholesterolemia, Hx Myocardial Infarction, Hx Rheumatic Fever, Hx Valvular Heart Disease Respiratory History: Reports: Hx Asthma, Hx Chronic Obstructive Pulmonary Disease (COPD), Hx Pleural Effusion, Hx Pneumonia, Other Respiratory Problems/ Disorders Denies: Hx Pulmonary Edema, Hx Pulmonary Embolism, Hx Sleep Apnea GI History: Reports: Hx Cirrhosis, Hx Gastroesophageal Reflux Disease, Hx Ulcer - peptic ulcer, Other GI Disorders - hep C Denies: Hx Crohn's Disease, Hx Hiatal Hernia, Hx Irritable Bowel, Hx Jaundice History: Reports: Hx Acute Renal Failure, Hx Chronic Renal Failure, Hx Dialysis, Hx Renal Disease, Other Problems/Disorders - end stage renal disease, on dialysis Denies: Hx Kidney Infection, Hx Kidney Stones Musculoskeletal History: Reports: Hx Arthritis, Hx Back Problems - chronic pain , Hx Orthopedic Injury Denies: Hx Rheumatoid Arthritis, Hx Bursitis, Hx Tendonitis, Other Musculoskeletal History Sensory History: Reports: Hx Glaucoma, Hx Vision Problem Denies: Hx Cataracts, Hx Contacts or Glasses, Hx Hearing Aid Opthamlomology History: Reports: Hx Glaucoma, Hx Vision Problem Denies: Hx Cataracts, Hx Contacts or Glasses Neurological History: Reports: Hx Headaches, Hx Migraine, Other Neuro Impairments/Disorders - depression Denies: Hx Dementia, Hx Seizures Psychiatric History: Reports: Hx Anxiety, Hx Depression Denies: Hx Eating Disorder, Hx Panic Disorder, Hx Suicide Attempt, Hx of Violent Episodes Against Others, Hx Substance Abuse - Cancer History Hx Chemotherapy: No Hx Radiation Therapy: No Hx Palliative Cancer Treatment: No - Surgical History Surgery Procedure, Year, and Place: HERNIA REPAIR 2012. APPENDECTOMY 2000. LEFT ARM AV FISTULA/CAD - REMOVED. CABG 1 vessel, mitral & tricuspid valve repair March 02, 2014 AT [facility] CONDITIONAL 5 UPTO 3T. POWER PORT. Mitral and tricuspid valve repair Hx Anesthesia Reactions: No - Immunization History Date of Tetanus Vaccine: 2014 Date of Influenza Vaccine: Fall 2015 Infectious Disease History: No Infectious Disease History: Reports: Hx Hepatitis - Hep C, Hx of Known/ Suspected MRSA, History Other Infectious Disease - Hepatitis C Denies: Hx Clostridium Difficile, Hx Human Immunodeficiency Virus (HIV), Hx Shingles, Hx Tuberculosis, Hx Known/Suspected VRE, Hx Known/Suspected VRSA, Traveled Outside the [place] in Last 30 Days - Family History Known Family History: Positive: Cardiac Disease, Hypertension, Other - CVA Family History: R & N/C - Social History Alcohol Use: None Alcohol Amount: former EtOH abuse Hx Substance Use: Yes Substance Use Type: Reports: Marijuana Substance Use Comment - Amount & Last Used: today Hx Tobacco Use: Yes Smoking Status (MU): Former Smoker Type: Cigarettes Amount Used/How Often: 1/2 ppd Length of Time of Smoking/Using Tobacco: 10 years Have You Smoked in the Last Year: No Review of Systems Positive: Chest Pain Positive: Shortness Of Breath Negative: Vomiting, Nausea Positive: other - minimal urination All Other Systems Reviewed And Are Negative: Yes Physical Exam - Summary Physical Exam Summary: GENERAL: Patient is a well-developed and nourished male. Patient is anxious. HEAD AND FACE: No signs of trauma. No ecchymosis, hematomas or skull depressions. No sinus tenderness. EYES: PERRLA, EOMI x 2, No injected conjunctiva, no nystagmus. EARS: Hearing grossly intact. Ear canals and tympanic membranes are within normal limits. MOUTH: Oropharynx within normal limits. NECK: Supple, trachea is midline, no adenopathy, Bilat JVD in neck, no carotid bruit, no c-spine tenderness, neck with full ROM. CHEST: Symmetric, no tenderness at palpation LUNGS: Clear to auscultation bilaterally. No wheezing or crackles. CVS: Regular rate and rhythm, S1 and S2 present, no gallops appreciated. Systolic murmur over base 2/6. ABDOMEN: Soft, non-tender. No signs of distention. No rebound no guarding, and no masses palpated. Bowel sounds are normal. EXTREMITIES: FROM in all major joints, no edema, no cyanosis or clubbing. AV shunt on right forearm with good thrill NEURO: Alert and oriented x 3. No acute neurological deficits. Speech is normal and follows commands. SKIN: Dry and warm Triage Information Reviewed: Yes Vital Signs On Initial Exam: Initial Vitals Temp Pulse Resp BP Pulse Ox 99.4 F 75 18 180/124 100 09/10/17 03:09 09/10/17 03:09 09/10/17 03:09 09/10/17 03:09 09/10/17 03:09 Vital Signs Reviewed: Yes - [place] Coma Scale Coma Scale Total: 15 Diagnostics - Vital Signs Vital Signs Temp Pulse Resp BP Pulse Ox 09/10/17 03:10 18 09/10/17 03:09 99.4 F 75 18 180/124 100 - Laboratory Result Diagrams: 09/10/17 03:55 09/10/17 03:55 Lab Statement: Any lab studies that have been ordered have been reviewed, and results considered in the medical decision making process. - Radiology CXR Radiology Interpretation Completed By: ED Physician - mild bilateral venous congestion. - EKG 0410 Cardiac Rate: NL EKG Rhythm: Sinus Rhythm - 73 bpm EKG Interpretation: nl axis, LVH, nonspecific T wave changes EKG Comparison: No Significant Change Re-Evaluation - Re-Evaluation First Eval Re-Evaluation Time: 04:59 Change: Improved Comment: Pt was sleeping comfortably with O2 Sat at 100% on 3 L O2 which is what patient uses at home. Discussed labs. Pt feels better after breathing treatment and would like to go home. Course/Dx - Course Course Of Treatment: This patient is a 67 year old M BIBA presenting to [facility] with a chief complaint of waking up to constant severe SOB that began 1.5 hours ago. Pt states he received dialysis yesterday morning. Symptoms aggravated and alleviated by nothing. Patient reports chest wall pain and minimal urination but denies N/V. Pt states he is on 3L O2 at home. He notes 2 leaky valves in heart. No PMHx anxiety or panic attacks. Pending EKG, CXR, and labs. Trop 0.05 most likely due to renal insufficiency and is at the same level as labs during visit to ED 3 days ago. EKG reveals NSR, 73 bpm, nl axis, LVH, nonspecific T wave changes, and no difference from previous EKG. CXR reveals mild bilateral venous congestion. Symptoms most likely secondary to anxiety. Patient responded well to Ativan. Pt was sleeping comfortably with O2 Sat at 100 % on 3 L O2 which is what pt uses at home. Pt is stable and will be D/C with a diagnosis of anxiety and end stage renal disease with follow up with PMD and Medical Certification Specialist in 2 days. - Diagnoses Provider Diagnoses: End stage renal disease, Anxiety Discharge - Discharge Plan Condition: Stable Disposition: HOME Patient Education Materials: Anxiety (ED), End Stage Kidney Disease (ED) Referrals: Marielena Vargas MD [Primary Care Provider] - 2 Days Additional Instructions: Follow up with PCP and Medical Certification Specialist in 2 days. RETURN TO THE EMERGENCY DEPARTMENT FOR CHANGING OR WORSENING SYMPTOMS. The documentation as recorded by the Celine casey Nilda accurately reflects the service I personally performed and the decisions made by me, Yuly Ponce MD.
--- NOTE | 2017-09-10 10:02 | RAD ---
INDICATION: Respiratory distress COMPARISON: Most recent comparison chest x-rays dated September 06, 2017 TECHNIQUE: Single AP portable view of the chest was obtained. FINDINGS: Image quality is compromised due to the relative inferiority of a portable chest x-ray. Again seen is a left upper chest cardiac pacemaker with one lead overlying the heart and sternotomy wires. Similar the prior chest x-ray there is mild cardiomegaly. There is patchy density obscuring the medial right lower lung and left lung base. There is obscuration of the left hemidiaphragm. Visualized bones are normal for the patient's age. IMPRESSION: Chest x-ray findings could be due to cardiogenic pulmonary edema and/or bibasilar patchy infiltrate. There is likely a left lung base pleural effusion unchanged from the prior chest x-ray. Overall aeration of the lungs is improved when compared to the September 06, 2017 chest x-ray.
== END 2017-09-10 05:44 | disposition home or self-care (01) ==
LOC: ED 03:04
DX: N18.6 End stage renal disease (principal); Z99.2 Dependence on renal dialysis; R07.9 Chest pain, unspecified; R05 Cough; R06.02 Shortness of breath; Z87.891 Personal history of nicotine dependence
CPT/HCPCS: 36415; 71010; 80053; 83735; 84484; 85025; 85610; 85730; 93005; 94640; 96374; 99283; A9270-GY; J2060

== ENCOUNTER 2017-09-15 01:33 | Emergency (ER) | payer MEDICARE, MEDICAID ==
[2017-09-15] MEDS ORDERED: Morphine INJ* 4 MG/ML 1 ML CARPUJECT IV ONE ×2 (03:27→05:15)
[2017-09-15] MEDS ORDERED: Ondansetron INJ* 2 MG/ML VIAL IV ONE (03:27)
[2017-09-15 04:17] LABS: Hematocrit 29 % (42-52); Hemoglobin 9.2 g/dl (14.0-18.0); Mean Corpuscular HGB Conc 31 g/dl (31-36); Mean Corpuscular Hemoglobin 28 pg (27-31); Mean Corpuscular Volume 88 fL (80-94); Mean Platelet Volume 8 um3 (7.4-10.4); Red Blood Count 3.34 10^6/ul (4.0-5.4); Red Cell Distribution Width 19 % (10.5-15); White Blood Count 4.7 10^3/ul (3.5-10.8)
[2017-09-15 04:28] LABS: Albumin 4.1 g/dL (3.2-5.2); BUN/Creatinine Ratio 3.3 (8-20); Calcium 10.2 mg/dL (8.6-10.3); EGFR African American 7.2 (>60); EGFR Non-African American 5.6 (>60); Globulin 3.9 g/dL (2-4); Total Bilirubin 0.6 mg/dL (0.2-1.0)
[2017-09-15 04:45] LABS: Potassium 4.8 mmol/L (3.5-5.0)
[2017-09-15 05:55] VITALS: BP 198/134
--- NOTE | 2017-09-15 06:50 | ED ---
Justin Briones Gabriel scribcarlyle for Noah Wadsworth on 09/15/17 at 0510 . Abdominal Pain/Male - HPI Summary HPI Summary: This patient is a 67 year old M presenting to [facility] with a chief complaint of kidney pain since 3 hours earlier. The patient rates the pain 7/10 in severity. Patient denies fever. Patient had dialysis earlier this morning. - History of Current Complaint Chief Complaint: EDFlankPain Stated Complaint: FLANK PAIN Time Seen by Provider: 09/15/17 03:08 Hx Obtained From: Patient Onset/Duration: Still Present Timing: Constant Severity Currently: Moderate Pain Intensity: 7 Pain Scale Used: 0-10 Numeric Radiates to: Flank Associated Signs And Symptoms: Negative: Fever - Allergies/Home Medications Allergies/Adverse Reactions: Allergies Allergy/AdvReac Type Severity Reaction Status Date / Time Aspirin Allergy Unknown See Comment Verified 08/18/17 16:40 Hydromorphone [From Dilaudid] AdvReac Intermediate Unknown Verified 08/19/17 08: 58 Reaction Details PMH/Surg Hx/FS Hx/Imm Hx Previously Healthy: No Endocrine/Hematology History: Reports: Hx Blood Transfusions, Hx Sickle Cell Disease - Was told had sickle cell at one point but denies, Hx Anemia Denies: Hx Anticoagulant Therapy, Hx Bone Marrow Disease, Hx Diabetes, Hx Thyroid Disease Cardiovascular History: Reports: Hx Angina, Hx Auto Implanted Cardiovert Defib, Hx Congestive Heart Failure, Hx Coronary Artery Disease, Hx Deep Vein Thrombosis , Hx Hypertension, Hx Pacemaker/ICD, Hx Peripheral Vascular Disease, Hx Syncope , Other Cardiovascular Problems/Disorders - cardiomegaly, mitral valve and tricuspid valve repair Denies: Hx Cardiomegaly, Hx Hypercholesterolemia, Hx Myocardial Infarction, Hx Rheumatic Fever, Hx Valvular Heart Disease Respiratory History: Reports: Hx Asthma, Hx Chronic Obstructive Pulmonary Disease (COPD), Hx Pleural Effusion, Hx Pneumonia, Other Respiratory Problems/ Disorders Denies: Hx Pulmonary Edema, Hx Pulmonary Embolism, Hx Sleep Apnea GI History: Reports: Hx Cirrhosis, Hx Gastroesophageal Reflux Disease, Hx Ulcer - peptic ulcer, Other GI Disorders - hep C Denies: Hx Crohn's Disease, Hx Hiatal Hernia, Hx Irritable Bowel, Hx Jaundice History: Reports: Hx Acute Renal Failure, Hx Chronic Renal Failure, Hx Dialysis, Hx Renal Disease, Other Problems/Disorders - end stage renal disease, on dialysis Denies: Hx Kidney Infection, Hx Kidney Stones Musculoskeletal History: Reports: Hx Arthritis, Hx Back Problems - chronic pain , Hx Orthopedic Injury Denies: Hx Rheumatoid Arthritis, Hx Bursitis, Hx Tendonitis, Other Musculoskeletal History Sensory History: Reports: Hx Glaucoma, Hx Vision Problem Denies: Hx Cataracts, Hx Contacts or Glasses, Hx Hearing Aid Opthamlomology History: Reports: Hx Glaucoma, Hx Vision Problem Denies: Hx Cataracts, Hx Contacts or Glasses Neurological History: Reports: Hx Headaches, Hx Migraine, Other Neuro Impairments/Disorders - depression Denies: Hx Dementia, Hx Seizures Psychiatric History: Reports: Hx Anxiety, Hx Depression Denies: Hx Eating Disorder, Hx Panic Disorder, Hx Suicide Attempt, Hx of Violent Episodes Against Others, Hx Substance Abuse - Cancer History Hx Chemotherapy: No Hx Radiation Therapy: No Hx Palliative Cancer Treatment: No - Surgical History Surgery Procedure, Year, and Place: HERNIA REPAIR 2012. APPENDECTOMY 2000. LEFT ARM AV FISTULA/CAD - REMOVED. CABG 1 vessel, mitral & tricuspid valve repair March 02, 2014 AT [facility] CONDITIONAL 5 UPTO 3T. POWER PORT. Mitral and tricuspid valve repair Hx Anesthesia Reactions: No - Immunization History Date of Tetanus Vaccine: 2014 Date of Influenza Vaccine: Fall 2015 Infectious Disease History: No Infectious Disease History: Reports: Hx Hepatitis - Hep C, Hx of Known/ Suspected MRSA, History Other Infectious Disease - Hepatitis C Denies: Hx Clostridium Difficile, Hx Human Immunodeficiency Virus (HIV), Hx Shingles, Hx Tuberculosis, Hx Known/Suspected VRE, Hx Known/Suspected VRSA, Traveled Outside the in Last 30 Days - Family History Known Family History: Positive: None, Cardiac Disease, Hypertension, Other - CVA Family History: R & N/C - Social History Alcohol Use: None Alcohol Amount: former EtOH abuse Hx Substance Use: Yes Substance Use Type: Reports: Marijuana Substance Use Comment - Amount & Last Used: today Hx Tobacco Use: Yes Smoking Status (MU): Former Smoker Type: Cigarettes Amount Used/How Often: 1/2 ppd Length of Time of Smoking/Using Tobacco: 10 years Have You Smoked in the Last Year: No Review of Systems Negative: Fever Positive: flank pain All Other Systems Reviewed And Are Negative: Yes Physical Exam - Summary Physical Exam Summary: Appearance: Well appearing, no pain distress Skin: warm, dry, reflects adequate perfusion Head/face: normal Eyes: EOMI, KINGS ENT: normal Neck: supple, non-tender Respiratory: CTA, breath sounds present Cardiovascular: RRR, pulses symmetrical Abdomen: Mild tenderness in the left flank, soft Bowel: present Musculoskeletal: normal, strength/ROM intact Extremities: Patient has a shunt in his right arm Neuro: normal, sensory motor intact, A&Ox3 Triage Information Reviewed: Yes Vital Signs On Initial Exam: Initial Vitals Temp Pulse Resp BP Pulse Ox 98.7 F 88 20 141/102 96 09/15/17 01:35 09/15/17 01:35 09/15/17 01:35 09/15/17 01:35 09/15/17 01:35 Vital Signs Reviewed: Yes - [place] Coma Scale Coma Scale Total: 15 Diagnostics - Vital Signs Vital Signs Temp Pulse Resp BP Pulse Ox 09/15/17 03:54 18 09/15/17 03:10 82 97 09/15/17 03:08 155/117 09/15/17 01:35 98.7 F 88 20 141/102 96 - Laboratory Lab Results: Lab Results 09/15/17 09/15/17 09/15/17 Range/Units 04:00 04:00 04:00 WBC 4.7 (3.5-10.8) 10^3/ul RBC 3.34 L (4.0-5.4) 10^6/ul Hgb 9.2 L (14.0-18.0) g/dl Hct 29 L (42-52) % MCV 88 (80-94) fL MCH 28 (27-31) pg MCHC 31 (31-36) g/dl RDW 19 H (10.5-15) % Plt Count 139 L (150-450) 10^3/ul MPV 8 (7.4-10.4) um3 Neut % (Auto) 66.1 (38-83) % Lymph % (Auto) 14.6 L (25-47) % [place] % (Auto) 17.6 H (1-9) % Eos % (Auto) 0.9 (0-6) % Baso % (Auto) 0.8 (0-2) % Absolute Neuts (auto) 3.1 (1.5-7.7) 10^3/ul Absolute Lymphs (auto) 0.7 L (1.0-4.8) 10^3/ul Absolute Monos (auto) 0.8 (0-0.8) 10^3/ul Absolute Eos (auto) 0 (0-0.6) 10^3/ul Absolute Basos (auto) 0 (0-0.2) 10^3/ul Absolute Nucleated RBC 0.01 10^3/ul Nucleated RBC % 0.1 INR (Anticoag Therapy) 1.44 H (0.89-1.11) APTT 41.0 H (26.0-36.3) seconds Sodium 136 (133-145) mmol/L Potassium 4.8 (3.5-5.0) mmol/L Chloride 94 L (101-111) mmol/L Carbon Dioxide 32 (22-32) mmol/L Anion Gap 10 (2-11) mmol/L BUN 31 H (6-24) mg/dL Creatinine 9.43 H (0.67-1.17) mg/dL Est GFR ( Amer) 7.2 (>60) Est GFR (Non-Af Amer) 5.6 (>60) BUN/Creatinine Ratio 3.3 L (8-20) Glucose 93 (70-100) mg/dL Lactic Acid (0.5-2.0) mmol/L Calcium 10.2 (8.6-10.3) mg/dL Total Bilirubin 0.60 (0.2-1.0) mg/dL AST 43 H (13-39) U/L ALT 21 (7-52) U/L Alkaline Phosphatase 81 (34-104) U/L Total Protein 8.0 (6.4-8.9) g/dL Albumin 4.1 (3.2-5.2) g/dL Globulin 3.9 (2-4) g/dL Albumin/Globulin Ratio 1.1 (1-3) Lipase 19 (11.0-82.0) U/L 09/15/17 Range/Units 04:00 WBC (3.5-10.8) 10^3/ul RBC (4.0-5.4) 10^6/ul Hgb (14.0-18.0) g/dl Hct (42-52) % MCV (80-94) fL MCH (27-31) pg MCHC (31-36) g/dl RDW (10.5-15) % Plt Count (150-450) 10^3/ul MPV (7.4-10.4) um3 Neut % (Auto) (38-83) % Lymph % (Auto) (25-47) % [place] % (Auto) (1-9) % Eos % (Auto) (0-6) % Baso % (Auto) (0-2) % Absolute Neuts (auto) (1.5-7.7) 10^3/ul Absolute Lymphs (auto) (1.0-4.8) 10^3/ul Absolute Monos (auto) (0-0.8) 10^3/ul Absolute Eos (auto) (0-0.6) 10^3/ul Absolute Basos (auto) (0-0.2) 10^3/ul Absolute Nucleated RBC 10^3/ul Nucleated RBC % INR (Anticoag Therapy) (0.89-1.11) APTT (26.0-36.3) seconds Sodium (133-145) mmol/L Potassium (3.5-5.0) mmol/L Chloride (101-111) mmol/L Carbon Dioxide (22-32) mmol/L Anion Gap (2-11) mmol/L BUN (6-24) mg/dL Creatinine (0.67-1.17) mg/dL Est GFR ( Amer) (>60) Est GFR (Non-Af Amer) (>60) BUN/Creatinine Ratio (8-20) Glucose (70-100) mg/dL Lactic Acid 0.6 (0.5-2.0) mmol/L Calcium (8.6-10.3) mg/dL Total Bilirubin (0.2-1.0) mg/dL AST (13-39) U/L ALT (7-52) U/L Alkaline Phosphatase (34-104) U/L Total Protein (6.4-8.9) g/dL Albumin (3.2-5.2) g/dL Globulin (2-4) g/dL Albumin/Globulin Ratio (1-3) Lipase (11.0-82.0) U/L Result Diagrams: 09/15/17 04:00 09/15/17 04:00 Lab Statement: Any lab studies that have been ordered have been reviewed, and results considered in the medical decision making process. - CT CT ABD/Pelvis CT Interpretation Completed By: Radiologist - Splenomegaly is noted besides that no acute findings ED physician has reviewed this radiology report and agrees. Abdominal Pain Fem Course/Dx - Course Assessment/Plan: This patient is a 67 year old M presenting to [facility] with a chief complaint of kidney pain since 3 hours earlier. Blood was drawn with no significant abnormalities. CT ABD/Pelvis reveals, per radiologist, Splenomegaly is noted besides that no acute findings. In the ED course the patient was given morphine and ondansetron. pt feels better at present. Patient will be discharged with follow up from PCP. The patient is agreeable with this plan. - Diagnoses Differential Diagnosis/HQI/PQRI: Appendicitis, Bowel Obstruction, Diverticulitis , Renal Colic, Ureteral Stone Provider Diagnoses: Flank pain, end stage renal disease Discharge - Discharge Plan Condition: Stable Disposition: HOME Patient Education Materials: Flank Pain (ED) Referrals: Marielena Vargas MD [Primary Care Provider] - 3 Days Additional Instructions: RETURN TO THE EMERGENCY DEPARTMENT FOR CHANGING OR WORSENING SYMPTOMS. The documentation as recorded by the Justin casey Gabriel accurately reflects the service I personally performed and the decisions made by Ermelinda washington Emmanuel.
--- NOTE | 2017-09-15 09:24 | RAD ---
Indication: Flank pain. CT of the abdomen and pelvis was performed without oral or IV contrast administration. Coronal and sagittal reconstructed images were obtained. Lung bases demonstrate left basilar atelectasis. Heart is enlarged without pericardial effusion. Pacemaker leads are in place. The liver is normal in size. No focal lesions or intrahepatic duct dilatation is noted. The small bowel demonstrates no abnormal dilatation. No adrenal lesions are noted. The kidneys appear atrophic. No dilated loops of bowel are noted. The colon is filled with stool. No hernias are noted. The urinary bladder is collapsed. The prostate is enlarged. The visualized pancreas is unremarkable. The gallbladder demonstrates no calcified gallstones. No evidence of abdominal aortic aneurysm is noted, although atherosclerotic aorta is noted. The bony structures are grossly unremarkable. IMPRESSION: No abnormal masses or fluid collections are noted. No free air is noted. Left basilar atelectasis is noted.
== END 2017-09-15 05:55 | disposition home or self-care (01) ==
LOC: ED 01:33
DX: N23 Unspecified renal colic (principal); N18.6 End stage renal disease; Z99.2 Dependence on renal dialysis; Z88.6 Allergy status to analgesic agent; Z88.5 Allergy status to narcotic agent; I25.119 Atherosclerotic heart disease of native coronary artery with unspecified angina pectoris; I10 Essential (primary) hypertension; Z95.810 Presence of automatic (implantable) cardiac defibrillator; I50.9 Heart failure, unspecified; Z86.718 Personal history of other venous thrombosis and embolism; J44.9 Chronic obstructive pulmonary disease, unspecified; K21.9 Gastro-esophageal reflux disease without esophagitis; K74.60 Unspecified cirrhosis of liver; G43.909 Migraine, unspecified, not intractable, without status migrainosus; F41.9 Anxiety disorder, unspecified; F32.9 Major depressive disorder, single episode, unspecified; F12.90 Cannabis use, unspecified, uncomplicated; Z87.891 Personal history of nicotine dependence
CPT/HCPCS: 36415; 74176; 80053; 83605; 83690; 85025; 85610; 85730; 96374; 96375; 96376; 99283; J2270; J2405

== ENCOUNTER 2017-09-16 10:31 | Emergency (ER) | payer MEDICARE, MEDICAID ==
[2017-09-16] MEDS ORDERED: Morphine INJ* 4 MG/ML 1 ML CARPUJECT IV ONE (11:05)
[2017-09-16] MEDS ORDERED: Ondansetron INJ* 2 MG/ML VIAL IV ONE (11:05)
[2017-09-16 11:54] LABS: Hematocrit 31 % (42-52); Hemoglobin 9.8 g/dl (14.0-18.0); Mean Corpuscular HGB Conc 32 g/dl (31-36); Mean Corpuscular Hemoglobin 28 pg (27-31); Mean Corpuscular Volume 88 fL (80-94); Mean Platelet Volume 7 um3 (7.4-10.4); Red Blood Count 3.53 10^6/ul (4.0-5.4); Red Cell Distribution Width 18 % (10.5-15); White Blood Count 5.5 10^3/ul (3.5-10.8)
[2017-09-16 12:07] LABS: ALT 20 U/L (7-52); AST 41 U/L (13-39); Albumin 4.2 g/dL (3.2-5.2); Alkaline Phosphatase 66 U/L (34-104); Amylase 72 U/L (29-103); Anion Gap 7 mmol/L (2-11); BUN/Creatinine Ratio 3.5 (8-20); Blood Urea Nitrogen 27 mg/dL (6-24); C Reactive Protein < 1.00 mg/L (< 5.00); CO2 Carbon Dioxide 35 mmol/L (22-32); Calcium 9.5 mg/dL (8.6-10.3); Chloride 92 mmol/L (101-111); EGFR African American 9.3 (>60); EGFR Non-African American 7.2 (>60); Globulin 3.8 g/dL (2-4); Glucose 78 mg/dL (70-100); Lipase 21 U/L (11.0-82.0); Potassium 4.4 mmol/L (3.5-5.0); Sodium 134 mmol/L (133-145)
--- NOTE | 2017-09-16 12:38 | ED ---
Harrison Briones Benjamin, scribed for Yuly Ponce MD on 09/16/17 at 1107 . Abdominal Pain/Male - HPI Summary HPI Summary: 67yo male c/o RUQ pain, reporting its my pancreas. Pt states that the pain started during his dialysis this morning, and pt had to end dialysis 10 minutes early. Hx of CABG. Last BM was this morning, before his dialysis. - History of Current Complaint Chief Complaint: EDAbdPain Stated Complaint: ABD PAIN Time Seen by Provider: 09/16/17 10:50 Hx Obtained From: Patient Onset/Duration: Sudden Onset, Lasting Hours, Still Present Timing: Constant Severity Initially: Severe Severity Currently: Severe Pain Intensity: 10 Pain Scale Used: 0-10 Numeric Location: Discrete At: RUQ Radiates: No Aggravating Factor(s): Nothing Alleviating Factor(s): Nothing Associated Signs And Symptoms: Positive: Other - distention - Allergies/Home Medications Allergies/Adverse Reactions: Allergies Allergy/AdvReac Type Severity Reaction Status Date / Time Aspirin Allergy Unknown See Comment Verified 08/18/17 16:40 Hydromorphone [From Dilaudid] AdvReac Intermediate Unknown Verified 08/19/17 08: 58 Reaction Details PMH/Surg Hx/FS Hx/Imm Hx Endocrine/Hematology History: Reports: Hx Blood Transfusions, Hx Sickle Cell Disease - Was told had sickle cell at one point but denies, Hx Anemia Denies: Hx Anticoagulant Therapy, Hx Bone Marrow Disease, Hx Diabetes, Hx Thyroid Disease Cardiovascular History: Reports: Hx Angina, Hx Auto Implanted Cardiovert Defib, Hx Congestive Heart Failure, Hx Coronary Artery Disease, Hx Deep Vein Thrombosis , Hx Hypertension, Hx Pacemaker/ICD, Hx Peripheral Vascular Disease, Hx Syncope , Other Cardiovascular Problems/Disorders - cardiomegaly, mitral valve and tricuspid valve repair Denies: Hx Cardiomegaly, Hx Hypercholesterolemia, Hx Myocardial Infarction, Hx Rheumatic Fever, Hx Valvular Heart Disease Respiratory History: Reports: Hx Asthma, Hx Chronic Obstructive Pulmonary Disease (COPD), Hx Pleural Effusion, Hx Pneumonia, Other Respiratory Problems/ Disorders Denies: Hx Pulmonary Edema, Hx Pulmonary Embolism, Hx Sleep Apnea GI History: Reports: Hx Cirrhosis, Hx Gastroesophageal Reflux Disease, Hx Ulcer - peptic ulcer, Other GI Disorders - hep C Denies: Hx Crohn's Disease, Hx Hiatal Hernia, Hx Irritable Bowel, Hx Jaundice History: Reports: Hx Acute Renal Failure, Hx Chronic Renal Failure, Hx Dialysis, Hx Renal Disease, Other Problems/Disorders - end stage renal disease, on dialysis Denies: Hx Kidney Infection, Hx Kidney Stones Musculoskeletal History: Reports: Hx Arthritis, Hx Back Problems - chronic pain , Hx Orthopedic Injury Denies: Hx Rheumatoid Arthritis, Hx Bursitis, Hx Tendonitis, Other Musculoskeletal History Sensory History: Reports: Hx Glaucoma, Hx Vision Problem Denies: Hx Cataracts, Hx Contacts or Glasses, Hx Hearing Aid Opthamlomology History: Reports: Hx Glaucoma, Hx Vision Problem Denies: Hx Cataracts, Hx Contacts or Glasses Neurological History: Reports: Hx Headaches, Hx Migraine, Other Neuro Impairments/Disorders - depression Denies: Hx Dementia, Hx Seizures Psychiatric History: Reports: Hx Anxiety, Hx Depression Denies: Hx Eating Disorder, Hx Panic Disorder, Hx Suicide Attempt, Hx of Violent Episodes Against Others, Hx Substance Abuse - Cancer History Hx Chemotherapy: No Hx Radiation Therapy: No Hx Palliative Cancer Treatment: No - Surgical History Surgery Procedure, Year, and Place: HERNIA REPAIR 2012. APPENDECTOMY 2000. LEFT ARM AV FISTULA/CAD - REMOVED. CABG 1 vessel, mitral & tricuspid valve repair March 02, 2014 AT [facility] CONDITIONAL 5 UPTO 3T. POWER PORT. Mitral and tricuspid valve repair Hx Anesthesia Reactions: No - Immunization History Date of Tetanus Vaccine: 2014 Date of Influenza Vaccine: Fall 2015 Infectious Disease History: No Infectious Disease History: Reports: Hx Hepatitis - Hep C, Hx of Known/ Suspected MRSA, History Other Infectious Disease - Hepatitis C Denies: Hx Clostridium Difficile, Hx Human Immunodeficiency Virus (HIV), Hx Shingles, Hx Tuberculosis, Hx Known/Suspected VRE, Hx Known/Suspected VRSA, Traveled Outside the in Last 30 Days - Family History Known Family History: Positive: None, Cardiac Disease, Hypertension, Other - CVA Family History: R & N/C - Social History Alcohol Use: None Alcohol Amount: former EtOH abuse Hx Substance Use: Yes Substance Use Type: Reports: Marijuana Substance Use Comment - Amount & Last Used: today Hx Tobacco Use: Yes Smoking Status (MU): Former Smoker Type: Cigarettes Amount Used/How Often: 1/2 ppd Length of Time of Smoking/Using Tobacco: 10 years Have You Smoked in the Last Year: No Review of Systems Constitutional: Negative Eyes: Negative ENT: Negative Cardiovascular: Negative Respiratory: Negative Positive: Abdominal Pain - RUQ, Other - abdominal distention Genitourinary: Negative Musculoskeletal: Negative Skin: Negative Neurological: Negative Psychological: Normal All Other Systems Reviewed And Are Negative: Yes Physical Exam - Summary Physical Exam Summary: VITAL SIGNS: Reviewed. GENERAL: Patient is a well-developed and nourished MALE who is lying comfortable in the stretcher. Patient is not in any acute respiratory distress. HEAD AND FACE: No signs of trauma. No ecchymosis, hematomas or skull depressions. No sinus tenderness. EYES: PERRLA, EOMI x 2, No injected conjunctiva, no nystagmus. EARS: Hearing grossly intact. Ear canals and tympanic membranes are within normal limits. MOUTH: Oropharynx within normal limits. NECK: Supple, trachea is midline, no adenopathy, no JVD, no carotid bruit, no c- spine tenderness, neck with full ROM. CHEST: Symmetric, no tenderness at palpation LUNGS: Clear to auscultation bilaterally. No wheezing or crackles. CVS: Regular rate and rhythm, S1 and S2 present, no murmurs or gallops appreciated. ABDOMEN: Soft, diffusely tender. Abdominal Distention. No rebound no guarding, and no masses palpated. Bowel sounds are hypoactive. EXTREMITIES: FROM in all major joints, no edema, no cyanosis or clubbing. NEURO: Alert and oriented x 3. No acute neurological deficits. Speech is normal and follows commands. SKIN: Dry and warm Triage Information Reviewed: Yes Vital Signs On Initial Exam: Initial Vitals Temp Pulse Resp BP Pulse Ox 98.7 F 90 18 130/102 96 09/16/17 10:32 09/16/17 10:32 09/16/17 10:32 09/16/17 10:32 09/16/17 10:32 Vital Signs Reviewed: Yes Diagnostics - Vital Signs Vital Signs Temp Pulse Resp BP Pulse Ox 09/16/17 10:32 98.7 F 90 18 130/102 96 - Laboratory Result Diagrams: 09/16/17 11:33 09/16/17 11:33 Lab Statement: Any lab studies that have been ordered have been reviewed, and results considered in the medical decision making process. Re-Evaluation - Re-Evaluation First Eval Re-Evaluation Time: 12:36 Comment: Pt is feeling better. Pt will be discharged. Abdominal Pain Fem Course/Dx - Course Course Of Treatment: 67yo male c/o RUQ pain, reporting its my pancreas. Pt states that the pain started during his dialysis this morning, and pt had to end dialysis 10 minutes early. Hx of CABG. Last BM was this morning, before his dialysis. Pt was here at the ED yesterday, with kidney pain and had a CT A/P that was negative. - Diagnoses Provider Diagnoses: Abdominal pain Discharge - Discharge Plan Condition: Stable Disposition: HOME Referrals: Marielena Vargas MD [Primary Care Provider] - Additional Instructions: RETURN TO EMERGENCY DEPARTMENT FOR ANY NEW OR WORSENING SYMPTOMS The documentation as recorded by the Harrison casey Benjamin accurately reflects the service I personally performed and the decisions made by me, Yuly Ponce MD.
[2017-09-16 12:50] VITALS: BP 168/100
== END 2017-09-16 12:51 | disposition home or self-care (01) ==
LOC: ED 10:31
DX: R10.11 Right upper quadrant pain (principal)
CPT/HCPCS: 36415; 80053; 82150; 83690; 85025; 85610; 85730; 86140; 96374; 96375; 99282; J2270; J2405

== ENCOUNTER 2017-09-18 04:33 | Emergency (ER) | payer MEDICARE, MEDICAID ==
[2017-09-18] MEDS ORDERED: Albuterol/Ipratropium NEB.SOL* Albuterol 2.5 MG/Ipratropium 0.5 MG 3 ML INH ONE (04:43)
[2017-09-18] MEDS ORDERED: Lidocaine 2% VISCOUS* 15 ML UDC PO ONE (04:45)
[2017-09-18] MEDS ORDERED: Al Hydrox/Mg Hydrox/Simet LIQ* 30 ML UDC PO ONE (04:46)
[2017-09-18 05:02] VITALS: BP 162/95
--- NOTE | 2017-09-18 05:22 | ED ---
Higinio Briones Thomas, scribed for Keagan Copeland MD on 09/18/17 at 0449 . Complex/Multi-Sys Presentation - HPI Summary HPI Summary: The pt is a 67 y/o M presenting to the ED with chief complaints of wanting a GI cocktail and a breathing treatment. He also has complaints of problems breathing , abdominal pain, and mild chest pain described as soreness. He receives dialysis on //. He is on home oxygen and he gets around with a scooter. - History Of Current Complaint Chief Complaint: EDGeneral Time Seen by Provider: 09/18/17 04:43 Hx Obtained From: Patient Onset/Duration: Still Present Timing: Constant Severity Currently: Moderate Location: Pain At: - chest, abdomen Associated Signs And Symptoms: Positive: Other - Problems breathing, abdominal pain, chest pain - Allergies/Home Medications Allergies/Adverse Reactions: Allergies Allergy/AdvReac Type Severity Reaction Status Date / Time Aspirin Allergy Unknown See Comment Verified 09/18/17 04:38 Hydromorphone [From Dilaudid] AdvReac Intermediate Unknown Verified 09/18/17 04: 38 Reaction Details PMH/Surg Hx/FS Hx/Imm Hx Previously Healthy: No Endocrine/Hematology History: Reports: Hx Blood Transfusions, Hx Sickle Cell Disease - Was told had sickle cell at one point but denies, Hx Anemia Denies: Hx Anticoagulant Therapy, Hx Bone Marrow Disease, Hx Diabetes, Hx Thyroid Disease Cardiovascular History: Reports: Hx Angina, Hx Auto Implanted Cardiovert Defib, Hx Congestive Heart Failure, Hx Coronary Artery Disease, Hx Deep Vein Thrombosis , Hx Hypertension, Hx Pacemaker/ICD, Hx Peripheral Vascular Disease, Hx Syncope , Other Cardiovascular Problems/Disorders - cardiomegaly, mitral valve and tricuspid valve repair Denies: Hx Cardiomegaly, Hx Hypercholesterolemia, Hx Myocardial Infarction, Hx Rheumatic Fever, Hx Valvular Heart Disease Respiratory History: Reports: Hx Asthma, Hx Chronic Obstructive Pulmonary Disease (COPD), Hx Pleural Effusion, Hx Pneumonia, Other Respiratory Problems/ Disorders Denies: Hx Pulmonary Edema, Hx Pulmonary Embolism, Hx Sleep Apnea GI History: Reports: Hx Cirrhosis, Hx Gastroesophageal Reflux Disease, Hx Ulcer - peptic ulcer, Other GI Disorders - hep C Denies: Hx Crohn's Disease, Hx Hiatal Hernia, Hx Irritable Bowel, Hx Jaundice History: Reports: Hx Acute Renal Failure, Hx Chronic Renal Failure, Hx Dialysis, Hx Renal Disease, Other Problems/Disorders - end stage renal disease, on dialysis Denies: Hx Kidney Infection, Hx Kidney Stones Musculoskeletal History: Reports: Hx Arthritis, Hx Back Problems - chronic pain , Hx Orthopedic Injury Denies: Hx Rheumatoid Arthritis, Hx Bursitis, Hx Tendonitis, Other Musculoskeletal History Sensory History: Reports: Hx Glaucoma, Hx Vision Problem Denies: Hx Cataracts, Hx Contacts or Glasses, Hx Hearing Aid Opthamlomology History: Reports: Hx Glaucoma, Hx Vision Problem Denies: Hx Cataracts, Hx Contacts or Glasses Neurological History: Reports: Hx Headaches, Hx Migraine, Other Neuro Impairments/Disorders - depression Denies: Hx Dementia, Hx Seizures Psychiatric History: Reports: Hx Anxiety, Hx Depression Denies: Hx Eating Disorder, Hx Panic Disorder, Hx Suicide Attempt, Hx of Violent Episodes Against Others, Hx Substance Abuse - Cancer History Hx Chemotherapy: No Hx Radiation Therapy: No Hx Palliative Cancer Treatment: No - Surgical History Surgery Procedure, Year, and Place: HERNIA REPAIR 2012. APPENDECTOMY 2000. LEFT ARM AV FISTULA/CAD - REMOVED. CABG 1 vessel, mitral & tricuspid valve repair March 02, 2014 AT [facility] CONDITIONAL 5 UPTO 3T. POWER PORT. Mitral and tricuspid valve repair Hx Anesthesia Reactions: No - Immunization History Date of Tetanus Vaccine: 2014 Date of Influenza Vaccine: Fall 2015 Infectious Disease History: No Infectious Disease History: Reports: Hx Hepatitis - Hep C, Hx of Known/ Suspected MRSA, History Other Infectious Disease - Hepatitis C Denies: Hx Clostridium Difficile, Hx Human Immunodeficiency Virus (HIV), Hx Shingles, Hx Tuberculosis, Hx Known/Suspected VRE, Hx Known/Suspected VRSA, Traveled Outside the in Last 30 Days - Family History Known Family History: Positive: Cardiac Disease, Hypertension, Other - CVA - Social History Alcohol Use: None Alcohol Amount: former EtOH abuse Hx Substance Use: Yes Substance Use Type: Reports: Marijuana Substance Use Comment - Amount & Last Used: today Hx Tobacco Use: Yes Smoking Status (MU): Former Smoker Type: Cigarettes Amount Used/How Often: 1/2 ppd Length of Time of Smoking/Using Tobacco: 10 years Have You Smoked in the Last Year: No Review of Systems Positive: Chest Pain - mild Positive: Other - Difficulty breathing Positive: Abdominal Pain All Other Systems Reviewed And Are Negative: Yes Physical Exam Triage Information Reviewed: Yes Vital Signs On Initial Exam: Initial Vitals Temp Pulse Resp BP Pulse Ox 98.2 F 88 16 157/78 97 09/18/17 04:34 09/18/17 04:34 09/18/17 04:34 09/18/17 04:34 09/18/17 04:34 Vital Signs Reviewed: Yes Appearance: Positive: Well-Appearing, No Pain Distress Skin: Positive: Warm, Skin Color Reflects Adequate Perfusion, Dry, Other - He has a sternotomy scar with some tenderness. Head/Face: Positive: Normal Head/Face Inspection Eyes: Positive: EOMI, KINGS ENT: Positive: Normal ENT inspection Neck: Positive: Supple, Nontender Respiratory/Lung Sounds: Positive: Breath Sounds Present, Other - Diminished lung sounds. Cardiovascular: Positive: RRR, Other - There are prominent mitral and aortic sounds without murmur. He has a right upper extremity fistula with a palpable thrill. Abdomen Description: Positive: Nontender, Soft Bowel Sounds: Positive: Present Musculoskeletal: Positive: Strength/ROM Intact, Other - He has a sternotomy scar with some tenderness Neurological: Positive: Normal, Sensory/Motor Intact, Alert, Oriented to Person Place, Time Diagnostics - Vital Signs Vital Signs Temp Pulse Resp BP Pulse Ox 09/18/17 04:34 98.2 F 88 16 157/78 97 - Laboratory Lab Statement: Any lab studies that have been ordered have been reviewed, and results considered in the medical decision making process. Complex Multi-Symp Course/Dx Course Of Treatment: pt presents requesting particular tx rather than for a complaint. He is a well known/freq visitor of the ER. He has ESRD and his SOB is chronic, related to fluid overload. He is discharged to dialysis now. - Diagnoses Provider Diagnoses: Chronic dyspnea, End stage renal disease on dialysis, Pleural effusion, bilateral Discharge - Discharge Plan Condition: Stable Disposition: OTHER Discharge Disposition Comment: to dialysis Patient Education Materials: Dyspnea (ED) Referrals: Marielena Vargas MD [Primary Care Provider] - Additional Instructions: Go directly to Dialysis Unit for treatment. Return if worse, new symptoms or other concerns. The documentation as recorded by the Higinio casey Thomas accurately reflects the service I personally performed and the decisions made by me, Keagan Copeland MD.
== END 2017-09-18 05:20 ==
LOC: ED 04:33
DX: N18.6 End stage renal disease (principal); Z99.2 Dependence on renal dialysis; J90 Pleural effusion, not elsewhere classified; R06.00 Dyspnea, unspecified; R10.9 Unspecified abdominal pain; R07.9 Chest pain, unspecified; Z87.891 Personal history of nicotine dependence
CPT/HCPCS: 94640; 99282; A9270-GY

== ENCOUNTER 2017-09-21 10:51 | Emergency (ER) | payer MEDICARE, MEDICAID ==
[2017-09-21 12:45] LABS: Hematocrit 31 % (42-52); Hemoglobin 9.8 g/dl (14.0-18.0); Mean Corpuscular HGB Conc 32 g/dl (31-36); Mean Corpuscular Hemoglobin 28 pg (27-31); Mean Corpuscular Volume 87 fL (80-94); Mean Platelet Volume 7 um3 (7.4-10.4); Red Blood Count 3.53 10^6/ul (4.0-5.4); Red Cell Distribution Width 19 % (10.5-15); White Blood Count 5.5 10^3/ul (3.5-10.8)
[2017-09-21 12:59] LABS: Albumin 4.4 g/dL (3.2-5.2); EGFR African American 9.2 (>60); EGFR Non-African American 7.1 (>60); Potassium 4.4 mmol/L (3.5-5.0); Total Bilirubin 1.4 mg/dL (0.2-1.0); Total Protein 8.4 g/dL (6.4-8.9)
[2017-09-21 13:17] LABS: Troponin I 0.06 ng/mL (<0.04)
--- NOTE | 2017-09-21 13:28 | RAD ---
HISTORY: Chest pain COMPARISONS: September 10, 2017 VIEWS: 1: frontal portable view of the chest at 1:05 PM FINDINGS: LINES AND TUBES: A left-sided AICD is noted CARDIOMEDIASTINAL SILHOUETTE: The cardiomediastinal silhouette is normal for portable technique. PLEURA: There is a small left pleural effusion versus chronic pleural thickening. LUNG PARENCHYMA: There is patchy alveolar opacification of left lung base. There has been improved aeration of the right lung base. ABDOMEN: The upper abdomen is clear. There is no subphrenic gas. BONES AND SOFT TISSUES: The patient is status post median sternotomy. IMPRESSION: LEFT BASILAR ATELECTASIS VERSUS CONSOLIDATION, WITH A SMALL LEFT PLEURAL EFFUSION VERSUS CHRONIC PLEURAL THICKENING. THERE HAS BEEN IMPROVED AERATION OF THE RIGHT LUNG BASE.
[2017-09-21] MEDS ORDERED: oxyCODONE/Acetamin 5/325 MG* TAB PO ONE (13:36)
[2017-09-21 14:13] VITALS: BP 186/124
--- NOTE | 2017-09-22 15:31 | ED ---
Jenny Briones Edward, scribed for Oskar Reyes MD on 09/21/17 at 1311 . Abdominal Pain/Male - HPI Summary HPI Summary: 67 y/o male presents to the ED c/o severe CP starting at around 08:30 today. The pain is located in the mid-sternal region. Pt also c/o ABD pain in the LUQ. Pt states he finished dialysis today at around 10:30 today. The pt has been seen in the ED previously for similar symptoms. The symptoms are not aggravated or alleviated with anything. - History of Current Complaint Chief Complaint: EDAbdPain Stated Complaint: CHEST AND ABD PAIN Time Seen by Provider: 09/21/17 13:05 Hx Obtained From: Patient Onset/Duration: Lasting Hours, Still Present Timing: Constant Severity Currently: Severe Pain Intensity: 10 Pain Scale Used: 0-10 Numeric Location: Discrete At: LUQ Aggravating Factor(s): Nothing Alleviating Factor(s): Nothing Associated Signs And Symptoms: Positive: Other - CP - Allergies/Home Medications Allergies/Adverse Reactions: Allergies Allergy/AdvReac Type Severity Reaction Status Date / Time Aspirin Allergy Unknown See Comment Verified 09/18/17 04:38 Hydromorphone [From Dilaudid] AdvReac Intermediate Unknown Verified 09/18/17 04: 38 Reaction Details Home Medications: Home Medications Cinacalcet TAB* [Sensipar TAB*] 30 mg PO DAILY 09/21/17 [History Confirmed 09/21] Escitalopram (NF) [Lexapro 10 mg (NF)] 10 mg PO DAILY 09/21/17 [History Confirmed 09/21/17] Gabapentin CAP(*) [Neurontin 300 CAP(*)] 600 mg PO TID 09/21/17 [History Confirmed 09/21/17] Lidocaine-Prilocaine [Agoneaze 2.5-2.5 %] 1 applic TOPICAL ONCE 09/21/17 [ History Confirmed 09/21/17] Lisinopril TAB* [Prinivil TAB*] 10 mg PO DAILY 09/21/17 [History Confirmed 09/21] oxyCODONE TAB* [Roxycodone TAB 5 mg*] 15 mg PO Q6H PRN 09/21/17 [History Confirmed 09/21/17] PMH/Surg Hx/FS Hx/Imm Hx Previously Healthy: No Endocrine/Hematology History: Reports: Hx Blood Transfusions, Hx Sickle Cell Disease - Was told had sickle cell at one point but denies, Hx Anemia Denies: Hx Anticoagulant Therapy, Hx Bone Marrow Disease, Hx Diabetes, Hx Thyroid Disease Cardiovascular History: Reports: Hx Angina, Hx Auto Implanted Cardiovert Defib, Hx Congestive Heart Failure, Hx Coronary Artery Disease, Hx Deep Vein Thrombosis , Hx Hypertension, Hx Pacemaker/ICD, Hx Peripheral Vascular Disease, Hx Syncope , Other Cardiovascular Problems/Disorders - cardiomegaly, mitral valve and tricuspid valve repair Denies: Hx Cardiomegaly, Hx Hypercholesterolemia, Hx Myocardial Infarction, Hx Rheumatic Fever, Hx Valvular Heart Disease Respiratory History: Reports: Hx Asthma, Hx Chronic Obstructive Pulmonary Disease (COPD), Hx Pleural Effusion, Hx Pneumonia, Other Respiratory Problems/ Disorders Denies: Hx Pulmonary Edema, Hx Pulmonary Embolism, Hx Sleep Apnea GI History: Reports: Hx Cirrhosis, Hx Gastroesophageal Reflux Disease, Hx Ulcer - peptic ulcer, Other GI Disorders - hep C Denies: Hx Crohn's Disease, Hx Hiatal Hernia, Hx Irritable Bowel, Hx Jaundice History: Reports: Hx Acute Renal Failure, Hx Chronic Renal Failure, Hx Dialysis, Hx Renal Disease, Other Problems/Disorders - end stage renal disease, on dialysis Denies: Hx Kidney Infection, Hx Kidney Stones Musculoskeletal History: Reports: Hx Arthritis, Hx Back Problems - chronic pain , Hx Orthopedic Injury Denies: Hx Rheumatoid Arthritis, Hx Bursitis, Hx Tendonitis, Other Musculoskeletal History Sensory History: Reports: Hx Glaucoma, Hx Vision Problem Denies: Hx Cataracts, Hx Contacts or Glasses, Hx Hearing Aid Opthamlomology History: Reports: Hx Glaucoma, Hx Vision Problem Denies: Hx Cataracts, Hx Contacts or Glasses Neurological History: Reports: Hx Headaches, Hx Migraine, Other Neuro Impairments/Disorders - depression Denies: Hx Dementia, Hx Seizures Psychiatric History: Reports: Hx Anxiety, Hx Depression Denies: Hx Eating Disorder, Hx Panic Disorder, Hx Suicide Attempt, Hx of Violent Episodes Against Others, Hx Substance Abuse - Cancer History Hx Chemotherapy: No Hx Radiation Therapy: No Hx Palliative Cancer Treatment: No - Surgical History Surgery Procedure, Year, and Place: HERNIA REPAIR 2012. APPENDECTOMY 2000. LEFT ARM AV FISTULA/CAD - REMOVED. CABG 1 vessel, mitral & tricuspid valve repair March 02, 2014 AT [facility] CONDITIONAL 5 UPTO 3T. POWER PORT. Mitral and tricuspid valve repair Hx Anesthesia Reactions: No - Immunization History Date of Tetanus Vaccine: 2014 Date of Influenza Vaccine: Fall 2015 Infectious Disease History: No Infectious Disease History: Reports: Hx Hepatitis - Hep C, Hx of Known/ Suspected MRSA, History Other Infectious Disease - Hepatitis C Denies: Hx Clostridium Difficile, Hx Human Immunodeficiency Virus (HIV), Hx Shingles, Hx Tuberculosis, Hx Known/Suspected VRE, Hx Known/Suspected VRSA, Traveled Outside the [place] in Last 30 Days - Family History Known Family History: Positive: Cardiac Disease, Hypertension, Other - CVA - Social History Alcohol Use: None Alcohol Amount: former EtOH abuse Hx Substance Use: Yes Substance Use Type: Reports: Marijuana Substance Use Comment - Amount & Last Used: today Hx Tobacco Use: Yes Smoking Status (MU): Former Smoker Type: Cigarettes Amount Used/How Often: 1/2 ppd Length of Time of Smoking/Using Tobacco: 10 years Have You Smoked in the Last Year: No Review of Systems Constitutional: Negative Eyes: Negative ENT: Negative Positive: Chest Pain Respiratory: Negative Positive: Abdominal Pain Genitourinary: Negative Musculoskeletal: Negative Skin: Negative Neurological: Negative Psychological: Normal All Other Systems Reviewed And Are Negative: Yes Physical Exam - Summary Physical Exam Summary: VITAL SIGNS: Reviewed. GENERAL: ~Patient is a well-developed and nourished male who is sitting comfortably in a wheelchair. ~Patient is not in any acute respiratory distress. HEAD AND FACE: No signs of trauma. ~No ecchymosis, hematomas or skull depressions. No sinus tenderness. EYES: PERRLA, EOMI x 2, No injected conjunctiva, no nystagmus. EARS: Hearing grossly intact. Ear canals and tympanic membranes are within normal limits. MOUTH: Oropharynx within normal limits. NECK: Supple, trachea is midline, no adenopathy, no JVD, no carotid bruit, no c- spine tenderness, neck with full ROM. CHEST: Symmetric, positive tenderness. LUNGS: Clear to auscultation bilaterally. No wheezing or crackles. CVS: Regular rate and rhythm, S1 and S2 present, no murmurs or gallops appreciated. ABDOMEN: Soft, non-tender. No signs of distention. No rebound no guarding, and no masses palpated. Bowel sounds are normal. EXTREMITIES: FROM in all major joints, no edema, no cyanosis or clubbing. NEURO: Alert and oriented x 3. No acute neurological deficits. Speech is normal and follows commands. SKIN: Dry and warm Triage Information Reviewed: Yes Vital Signs On Initial Exam: Initial Vitals Temp Pulse Resp BP Pulse Ox 98.3 F 90 15 184/113 98 09/21/17 10:58 09/21/17 10:58 09/21/17 10:58 09/21/17 10:58 09/21/17 10:58 Vital Signs Reviewed: Yes - Kian Coma Scale Coma Scale Total: 15 Diagnostics - Vital Signs Vital Signs Temp Pulse Resp BP Pulse Ox 09/21/17 10:58 98.3 F 90 15 184/113 98 - Laboratory Lab Results: Lab Results 09/21/17 09/21/17 09/21/17 Range/Units 12:15 12:15 12:15 WBC 5.5 (3.5-10.8) 10^3/ul RBC 3.53 L (4.0-5.4) 10^6/ul Hgb 9.8 L (14.0-18.0) g/dl Hct 31 L (42-52) % MCV 87 (80-94) fL MCH 28 (27-31) pg MCHC 32 (31-36) g/dl RDW 19 H (10.5-15) % Plt Count 110 L (150-450) 10^3/ul MPV 7 L (7.4-10.4) um3 Neut % (Auto) 68.4 (38-83) % Lymph % (Auto) 11.7 L (25-47) % [place] % (Auto) 16.9 H (1-9) % Eos % (Auto) 0.3 (0-6) % Baso % (Auto) 2.7 H (0-2) % Absolute Neuts (auto) 3.8 (1.5-7.7) 10^3/ul Absolute Lymphs (auto) 0.6 L (1.0-4.8) 10^3/ul Absolute Monos (auto) 0.9 H (0-0.8) 10^3/ul Absolute Eos (auto) 0 (0-0.6) 10^3/ul Absolute Basos (auto) 0.1 (0-0.2) 10^3/ul Absolute Nucleated RBC 0 10^3/ul Nucleated RBC % 0.1 Sodium 133 (133-145) mmol/L Potassium 4.4 (3.5-5.0) mmol/L Chloride 91 L (101-111) mmol/L Carbon Dioxide 34 H (22-32) mmol/L Anion Gap 8 (2-11) mmol/L BUN 31 H (6-24) mg/dL Creatinine 7.69 H (0.67-1.17) mg/dL Est GFR ( Amer) 9.2 (>60) Est GFR (Non-Af Amer) 7.1 (>60) BUN/Creatinine Ratio 4.0 L (8-20) Glucose 77 (70-100) mg/dL Lactic Acid 0.8 (0.5-2.0) mmol/L Calcium 10.0 (8.6-10.3) mg/dL Total Bilirubin 1.40 H (0.2-1.0) mg/dL AST 48 H (13-39) U/L ALT 21 (7-52) U/L Alkaline Phosphatase 73 (34-104) U/L Troponin I Pending Total Protein 8.4 (6.4-8.9) g/dL Albumin 4.4 (3.2-5.2) g/dL Globulin 4.0 (2-4) g/dL Albumin/Globulin Ratio 1.1 (1-3) Amylase 86 (29-103) U/L Lipase 27 (11.0-82.0) U/L Result Diagrams: 17 12:15 1217 12:15 Lab Statement: Any lab studies that have been ordered have been reviewed, and results considered in the medical decision making process. - Radiology CXR Xray Interpretation: Positive (See Comments) - LEFT BASILAR ATELECTASIS VERSUS CONSOLIDATION, WITH A SMALL LEFT PLEURAL EFFUSION VERSUS CHRONIC PLEURAL THICKENING. THERE HAS BEEN IMPROVED AERATION OF THE RIGHT LUNG BASE. Radiology Interpretation Completed By: Radiologist - ED PHYSICIAN REVIEWS AND AGREES Re-Evaluation - Re-Evaluation 1 Re-Evaluation Time: 14:17 Comment: Pt will be d/c home Abdominal Pain Fem Course/Dx - Course Assessment/Plan: 67 y/o male presents to the ED c/o severe CP starting at around 08:30 today. The pain is located in the mid-sternal region. Pt also c/o ABD pain in the LUQ. Pt states he finished dialysis today at around 10:30 today. The pt has been seen in the ED previously for similar symptoms. The symptoms are not aggravated or alleviated with anything. Test results are at his baseline. The pt was given 1 percocet and the pain and sx improved. The pt requested to be d/c immediately b/c he needs to go home. At this point the pts BP is elevated. I asked the pt to wait to be evaluated for his elevated BP and he refused. I asked the pt whether he should sign out AMA and he refused. At this point he walked out of the room. He reports that this is his normal BP. Pt is A&Ox3 and ambulating out of the ED. - Diagnoses Provider Diagnoses: Atypical chest pain Discharge - Discharge Plan Condition: Stable Disposition: HOME Patient Education Materials: Chest Pain (ED) Referrals: Marielena Vargas MD [Primary Care Provider] - 5 Days (PLEASE F/U IN 3-5 DAYS) The documentation as recorded by the Jenny casey Edward accurately reflects the service I personally performed and the decisions made by me, Oskar Reyes MD.
== END 2017-09-21 14:39 | disposition home or self-care (01) ==
LOC: ED 10:51
DX: R07.89 Other chest pain (principal); Z87.891 Personal history of nicotine dependence; I25.10 Atherosclerotic heart disease of native coronary artery without angina pectoris; Z86.718 Personal history of other venous thrombosis and embolism; Z95.0 Presence of cardiac pacemaker; I50.9 Heart failure, unspecified
CPT/HCPCS: 36415; 71010; 80053; 82150; 83605; 83690; 84484; 85025; 93005; 99283; A9270-GY

== ENCOUNTER 2017-10-06 08:57 | Emergency (ER) | payer MEDICARE, MEDICAID ==
[2017-10-06] MEDS ORDERED: oxyCODONE TAB* 5 MG TAB PO ONE (10:13)
--- NOTE | 2017-10-06 11:39 | RAD ---
HISTORY: Fall, left shoulder pain COMPARISONS: MRI dated February 14, 2011 VIEWS: 4, Frontal internal rotation, external rotation, outlet, and axillary views of the left shoulder FINDINGS: BONE DENSITY: Normal. BONES: There is no displaced fracture. JOINTS: There is mild osteoarthritis of the a.c. and glenohumeral joints ALIGNMENT: There is no dislocation. SOFT TISSUES: Unremarkable. OTHER FINDINGS: A left-sided pacemaker is noted. IMPRESSION: NO ACUTE OSSEOUS INJURY. IF SYMPTOMS PERSIST, RECOMMEND REPEAT IMAGING.
[2017-10-06 12:10] VITALS: BP 00/00
--- NOTE | 2017-10-22 10:32 | ED ---
Siva Briones Angela, scribed for Steven Kowalski MD on 10/06/17 at 1014 . Abdominal Pain/Male - HPI Summary HPI Summary: This pt is a 67 y/o male presenting to [facility] c/o "pancreas" pain. Pt additionally reports left shoulder pain s/p he fell from his scooter a couple of days ago. He notes he landed on his left shoulder and his scooter fell on top of him. Pt is currently on dialysis and denies drinking alochol. Pt takes oxycodone, strength 15, for the pain. He states it is prescribed by his PCP, Dr. Vargas. - History of Current Complaint Chief Complaint: EDAbdPain Stated Complaint: PANCREAS PAIN Hx Obtained From: Patient Onset/Duration: Lasting Days, Still Present Timing: Lasting Days Pain Intensity: 9 Pain Scale Used: 0-10 Numeric Location: Other - pancreas pain Radiates: No Associated Signs And Symptoms: Positive: Other - additionally c/o left shoulder pain s/p fall - Allergies/Home Medications Allergies/Adverse Reactions: Allergies Allergy/AdvReac Type Severity Reaction Status Date / Time Aspirin Allergy Unknown See Comment Verified 09/18/17 04:38 Hydromorphone [From Dilaudid] AdvReac Intermediate Unknown Verified 09/18/17 04: 38 Reaction Details PMH/Surg Hx/FS Hx/Imm Hx Endocrine/Hematology History: Reports: Hx Blood Transfusions, Hx Sickle Cell Disease - Was told had sickle cell at one point but denies, Hx Anemia Denies: Hx Anticoagulant Therapy, Hx Bone Marrow Disease, Hx Diabetes, Hx Thyroid Disease Cardiovascular History: Reports: Hx Angina, Hx Auto Implanted Cardiovert Defib, Hx Congestive Heart Failure, Hx Coronary Artery Disease, Hx Deep Vein Thrombosis , Hx Hypertension, Hx Pacemaker/ICD, Hx Peripheral Vascular Disease, Hx Syncope , Other Cardiovascular Problems/Disorders - cardiomegaly, mitral valve and tricuspid valve repair Denies: Hx Cardiomegaly, Hx Hypercholesterolemia, Hx Myocardial Infarction, Hx Rheumatic Fever, Hx Valvular Heart Disease Respiratory History: Reports: Hx Asthma, Hx Chronic Obstructive Pulmonary Disease (COPD), Hx Pleural Effusion, Hx Pneumonia, Other Respiratory Problems/ Disorders Denies: Hx Pulmonary Edema, Hx Pulmonary Embolism, Hx Sleep Apnea GI History: Reports: Hx Cirrhosis, Hx Gastroesophageal Reflux Disease, Hx Ulcer - peptic ulcer, Other GI Disorders - hep C Denies: Hx Crohn's Disease, Hx Hiatal Hernia, Hx Irritable Bowel, Hx Jaundice History: Reports: Hx Acute Renal Failure, Hx Chronic Renal Failure, Hx Dialysis, Hx Renal Disease, Other Problems/Disorders - end stage renal disease, on dialysis Denies: Hx Kidney Infection, Hx Kidney Stones Musculoskeletal History: Reports: Hx Arthritis, Hx Back Problems - chronic pain , Hx Orthopedic Injury Denies: Hx Rheumatoid Arthritis, Hx Bursitis, Hx Tendonitis, Other Musculoskeletal History Sensory History: Reports: Hx Glaucoma, Hx Vision Problem Denies: Hx Cataracts, Hx Contacts or Glasses, Hx Hearing Aid Opthamlomology History: Reports: Hx Glaucoma, Hx Vision Problem Denies: Hx Cataracts, Hx Contacts or Glasses Neurological History: Reports: Hx Headaches, Hx Migraine, Other Neuro Impairments/Disorders - depression Denies: Hx Dementia, Hx Seizures Psychiatric History: Reports: Hx Anxiety, Hx Depression Denies: Hx Eating Disorder, Hx Panic Disorder, Hx Suicide Attempt, Hx of Violent Episodes Against Others, Hx Substance Abuse - Cancer History Hx Chemotherapy: No Hx Radiation Therapy: No Hx Palliative Cancer Treatment: No - Surgical History Surgery Procedure, Year, and Place: HERNIA REPAIR 2012. APPENDECTOMY 2000. LEFT ARM AV FISTULA/CAD - REMOVED. CABG 1 vessel, mitral & tricuspid valve [facility] CONDITION[facility] 5 UPTO 3T. POWER PORT. Mitral and tricuspid valve repair Hx Anesthesia Reactions: No - Immunization History Date of Tetanus Vaccine: 2014 Date of Influenza Vaccine: Fall 2015 Infectious Disease History: No Infectious Disease History: Reports: Hx Hepatitis - Hep C, Hx of Known/ Suspected MRSA, History Other Infectious Disease - Hepatitis C Denies: Hx Clostridium Difficile, Hx Human Immunodeficiency Virus (HIV), Hx Shingles, Hx Tuberculosis, Hx Known/Suspected VRE, Hx Known/Suspected VRSA, Traveled Outside the [place] in Last 30 Days - Family History Known Family History: Positive: Cardiac Disease, Hypertension, Other - CVA - Social History Alcohol Use: None Alcohol Amount: former EtOH abuse Hx Substance Use: Yes Substance Use Type: Reports: Marijuana Substance Use Comment - Amount & Last Used: today Hx Tobacco Use: Yes Smoking Status (MU): Former Smoker Type: Cigarettes Amount Used/How Often: 1/2 ppd Length of Time of Smoking/Using Tobacco: 10 years Have You Smoked in the Last Year: No Review of Systems Negative: Fever, Chills Negative: Erythema Negative: Sore Throat Negative: Chest Pain Negative: Shortness Of Breath, Cough Positive: Abdominal Pain - "pancreas" pain. Negative: Vomiting, Nausea Negative: dysuria, hematuria Negative: Myalgia, Edema Negative: Rash Neurological: Other - NEG: dizziness All Other Systems Reviewed And Are Negative: Yes Physical Exam - Summary Physical Exam Summary: Constitutional: Well-developed, Well-nourished, Alert, Cooperative Skin: Warm, Dry HENT: Normocephalic; No Racoons eyes; No battles sign; No abrasion; No contusion ; No hemotympanum; No maxilla facial tenderness or instability; Dentition are smooth; No dental trauma; No trismus Eyes: EOM normal, PERRL Neck: Trachea is midline. No stridor; No JVD; No step off; No posterior cervical spine tenderness Cardio: Rhythm regular, rate normal Heart sounds normal; Intact distal pulses; The pedal pulses are 2+ and symmetric. Radial pulses are 2+ and symmetric. Pulmonary/Chest wall: Effort normal; Breath sounds normal; Equal chest rise; No flail segment; No rib tenderness; No sternal tenderness Abd: Soft, Appearance normal. No distension; No tenderness; No palpable pulsatile mass; No Cullens sign; No Barry-Turners sign Musculoskeletal: Full ROM and no tenderness at hips, ankles and knees; There is decreased ROM on left shoulder. No joint swelling; No vertebral body tenderness ; No paraspinal tenderness; No step off or deformity of the spine; Pelvis is stable to lateral compression and rock Neuro: Alert, Oriented x3, Strength 5/5 all extremities. : No blood at urethral meatus Psych: Mood and affect Normal Triage Information Reviewed: Yes Vital Signs On Initial Exam: Initial Vitals Temp Pulse Resp BP Pulse Ox 98.2 F 75 20 0/0 97 10/06/17 09:15 10/06/17 09:15 10/06/17 09:15 10/06/17 09:15 10/06/17 09:15 Vital Signs Reviewed: Yes - [place] Coma Scale Coma Scale Total: 14 Diagnostics - Vital Signs Vital Signs Temp Pulse Resp BP Pulse Ox 10/06/17 09:27 177/110 10/06/17 09:15 98.2 F 75 20 0/0 97 - Laboratory Lab Statement: Any lab studies that have been ordered have been reviewed, and results considered in the medical decision making process. - Radiology Left shoulder XR Xray Interpretation: No Acute Changes - IMPRESSION: No acute osseous injury. If symptoms persist, recommend repeat imaging. Dr. Kowalski has reviewed this radiology report. Radiology Interpretation Completed By: Radiologist Abdominal Pain Fem Course/Dx - Course Course Of Treatment: This pt is a 67 y/o male presenting to [facility] c/o "pancreas " pain. Pt additionally reports left shoulder pain s/p he fell from his scooter a couple of days ago. He notes he landed on his left shoulder and his scooter fell on top of him. Pt is currently on dialysis and denies drinking alochol. Pt takes oxycodone, strength 15, for the pain. He states it is prescribed by his PCP, Dr. Vargas. Left shoulder XR shows no acute osseous injury. If symptoms persist, recommend repeat imaging. In the ED course, the pt was given oxycodone. Pt was placed in a sling. He will be discharged to home with follow up from his PCP in 2 days. - Diagnoses Provider Diagnoses: Fall, Chronic pain Discharge - Discharge Plan Condition: Stable Disposition: HOME Patient Education Materials: Chronic Pain (ED), Fall Prevention (ED) Referrals: Marielena Vargas MD [Primary Care Provider] - 2 Days Additional Instructions: Please follow up with your primary care provider in 2 days. RETURN TO THE EMERGENCY DEPARTMENT FOR CHANGING OR WORSENING SYMPTOMS. The documentation as recorded by the Siva casey Angela accurately reflects the service I personally performed and the decisions made by me, Steven Kowalski MD.
== END 2017-10-06 12:10 | disposition home or self-care (01) ==
LOC: ED 08:57
DX: G89.29 Other chronic pain (principal); M25.512 Pain in left shoulder; I25.119 Atherosclerotic heart disease of native coronary artery with unspecified angina pectoris; Z95.810 Presence of automatic (implantable) cardiac defibrillator; I50.9 Heart failure, unspecified; Z95.1 Presence of aortocoronary bypass graft; Z86.718 Personal history of other venous thrombosis and embolism; I73.9 Peripheral vascular disease, unspecified; Z95.2 Presence of prosthetic heart valve; J44.9 Chronic obstructive pulmonary disease, unspecified; K74.60 Unspecified cirrhosis of liver; K21.9 Gastro-esophageal reflux disease without esophagitis; I13.11 Hypertensive heart and chronic kidney disease without heart failure, with stage 5 chronic kidney disease, or end stage renal disease; N18.6 End stage renal disease; Z99.2 Dependence on renal dialysis; G43.909 Migraine, unspecified, not intractable, without status migrainosus; Z88.6 Allergy status to analgesic agent; Z88.5 Allergy status to narcotic agent; F12.90 Cannabis use, unspecified, uncomplicated; Z87.891 Personal history of nicotine dependence; N17.9 Acute kidney failure, unspecified
CPT/HCPCS: 99282; A9270-GY

== ENCOUNTER 2017-10-14 17:52 | Emergency (ER) | payer MEDICARE, MEDICAID ==
[2017-10-14] MEDS ORDERED: Morphine INJ* 4 MG/ML 1 ML CARPUJECT IM ONE (19:53)
[2017-10-14] MEDS ORDERED: Famotidine TAB 40 MG(NF) 40 MG TAB PO ONE (19:54)
[2017-10-14] MEDS ORDERED: Famotidine TAB* 20 MG ONE (20:03)
--- NOTE | 2017-10-14 20:48 | RAD ---
INDICATION: Chest pain. COMPARISON: Comparison is made with a prior chest x-ray study from September 21, 2017. TECHNIQUE: Dual-energy PA and lateral views of the chest were obtained. FINDINGS: The patient appears to be status post coronary artery bypass surgery. There is a transvenous pacemaker present. The heart is within normal limits in size. There are small infiltrates at both lung bases and small bilateral pleural effusions versus pleural thickening which is unchanged. IMPRESSION: SMALL BIBASILAR INFILTRATES AND SMALL PLEURAL EFFUSIONS VERSUS PLEURAL THICKENING, UNCHANGED.
[2017-10-14] MEDS ORDERED: Cyclobenzaprine TAB* 10 MG PO ONE (20:56)
--- NOTE | 2017-10-14 21:26 | ED ---
Justin Briones Gabriel, scribed for Keagan Copeland MD on 10/14/17 at 1954 . Complex/Multi-Sys Presentation - HPI Summary HPI Summary: This patient is a 67 year old M presenting to [facility] with a chief complaint of chest and abd pain since earlier today. The patient rates the pain 7/10 in severity. Patient denies fever. - History Of Current Complaint Chief Complaint: EDChestPainROMI Time Seen by Provider: 10/14/17 19:34 Hx Obtained From: Patient Onset/Duration: Lasting Hours - earlier today, Still Present Timing: Constant Severity Currently: Severe Severity Initially: Severe Associated Signs And Symptoms: Positive: Other - cp and abd pain. Negative: Fever - Allergies/Home Medications Allergies/Adverse Reactions: Allergies Allergy/AdvReac Type Severity Reaction Status Date / Time Aspirin Allergy Unknown See Comment Verified 09/18/17 04:38 Hydromorphone [From Dilaudid] AdvReac Intermediate Unknown Verified 09/18/17 04: 38 Reaction Details PMH/Surg Hx/FS Hx/Imm Hx Previously Healthy: No Endocrine/Hematology History: Reports: Hx Blood Transfusions, Hx Sickle Cell Disease - Was told had sickle cell at one point but denies, Hx Anemia Denies: Hx Anticoagulant Therapy, Hx Bone Marrow Disease, Hx Diabetes, Hx Thyroid Disease Cardiovascular History: Reports: Hx Angina, Hx Auto Implanted Cardiovert Defib, Hx Congestive Heart Failure, Hx Coronary Artery Disease, Hx Deep Vein Thrombosis , Hx Hypertension, Hx Pacemaker/ICD, Hx Peripheral Vascular Disease, Hx Syncope , Other Cardiovascular Problems/Disorders - cardiomegaly, mitral valve and tricuspid valve repair Denies: Hx Cardiomegaly, Hx Hypercholesterolemia, Hx Myocardial Infarction, Hx Rheumatic Fever, Hx Valvular Heart Disease Respiratory History: Reports: Hx Asthma, Hx Chronic Obstructive Pulmonary Disease (COPD), Hx Pleural Effusion, Hx Pneumonia, Other Respiratory Problems/ Disorders Denies: Hx Pulmonary Edema, Hx Pulmonary Embolism, Hx Sleep Apnea GI History: Reports: Hx Cirrhosis, Hx Gastroesophageal Reflux Disease, Hx Ulcer - peptic ulcer, Other GI Disorders - hep C Denies: Hx Crohn's Disease, Hx Hiatal Hernia, Hx Irritable Bowel, Hx Jaundice History: Reports: Hx Acute Renal Failure, Hx Chronic Renal Failure, Hx Dialysis, Hx Renal Disease, Other Problems/Disorders - end stage renal disease, on dialysis Denies: Hx Kidney Infection, Hx Kidney Stones Musculoskeletal History: Reports: Hx Arthritis, Hx Back Problems - chronic pain , Hx Orthopedic Injury Denies: Hx Rheumatoid Arthritis, Hx Bursitis, Hx Tendonitis, Other Musculoskeletal History Sensory History: Reports: Hx Glaucoma, Hx Vision Problem Denies: Hx Cataracts, Hx Contacts or Glasses, Hx Hearing Aid Opthamlomology History: Reports: Hx Glaucoma, Hx Vision Problem Denies: Hx Cataracts, Hx Contacts or Glasses Neurological History: Reports: Hx Headaches, Hx Migraine, Other Neuro Impairments/Disorders - depression Denies: Hx Dementia, Hx Seizures Psychiatric History: Reports: Hx Anxiety, Hx Depression Denies: Hx Eating Disorder, Hx Panic Disorder, Hx Suicide Attempt, Hx of Violent Episodes Against Others, Hx Substance Abuse - Cancer History Hx Chemotherapy: No Hx Radiation Therapy: No Hx Palliative Cancer Treatment: No - Surgical History Surgery Procedure, Year, and Place: HERNIA REPAIR 2012. APPENDECTOMY 2000. LEFT ARM AV FISTULA/CAD - REMOVED. CABG 1 vessel, mitral & tricuspid valve repair March 02, 2014 AT [facility] CONDITIONAL 5 UPTO 3T. POWER PORT. Mitral and tricuspid valve repair Hx Anesthesia Reactions: No - Immunization History Date of Tetanus Vaccine: 2014 Date of Influenza Vaccine: Fall 2015 Infectious Disease History: No Infectious Disease History: Reports: Hx Hepatitis - Hep C, Hx of Known/ Suspected MRSA, History Other Infectious Disease - Hepatitis C Denies: Hx Clostridium Difficile, Hx Human Immunodeficiency Virus (HIV), Hx Shingles, Hx Tuberculosis, Hx Known/Suspected VRE, Hx Known/Suspected VRSA, Traveled Outside the in Last 30 Days - Family History Known Family History: Positive: Cardiac Disease, Hypertension, Other - CVA Family History: R & N/C - Social History Alcohol Use: None Alcohol Amount: former EtOH abuse Hx Substance Use: Yes Substance Use Type: Reports: Marijuana Substance Use Comment - Amount & Last Used: today Hx Tobacco Use: Yes Smoking Status (MU): Former Smoker Type: Cigarettes Amount Used/How Often: 1/2 ppd Length of Time of Smoking/Using Tobacco: 10 years Have You Smoked in the Last Year: No Review of Systems Negative: Fever Positive: Chest Pain Positive: Other - back pain All Other Systems Reviewed And Are Negative: Yes Physical Exam - Summary Physical Exam Summary: Appearance: Well appearing, no pain distress walks with a cane Skin: warm, dry, reflects adequate perfusion Head/face: normal Eyes: EOMI, KINGS ENT: normal Neck: supple, non-tender Respiratory: CTA, breath sounds present Diminished breath sounds Cardiovascular: RRR, pulses symmetrical Abdomen: non-tender, soft Bowel: present Musculoskeletal: normal, strength/ROM intact Some swelling in the right hand Neuro: normal, sensory motor intact, A&Ox3 Triage Information Reviewed: Yes Vital Signs On Initial Exam: Initial Vitals Temp Pulse Resp BP Pulse Ox 98.6 F 86 18 157/93 94 10/14/17 17:52 10/14/17 17:52 10/14/17 17:52 10/14/17 17:52 10/14/17 17:52 Vital Signs Reviewed: Yes Diagnostics - Vital Signs Vital Signs Temp Pulse Resp BP Pulse Ox 10/14/17 17:52 98.6 F 86 18 157/93 94 - Laboratory Lab Statement: Any lab studies that have been ordered have been reviewed, and results considered in the medical decision making process. - EKG 1958 Cardiac Rate: NL EKG Rhythm: Sinus Rhythm - 80 BPM EKG Interpretation: Diffuse flipped T waves without st depression, incomplete rbbb EKG Comparison: No Significant Change - in comparison to EKG from 09/21/17 Re-Evaluation - Re-Evaluation First Eval Re-Evaluation Time: 20:57 Change: Improved Comment: Patient's pain has improved and he would like to go home. Complex Multi-Symp Course/Dx Course Of Treatment: Pato is a well known, freq visitor to the ED. He has mult comorbidities but often presents with pain complaints. Today, its largely his chronic low back pain and GERD. Pepcid and IM morphine given with relief. CXR and ECG unchanged. D/C to f/u PMD. Had dialysis today. - Diagnoses Provider Diagnoses: End stage renal disease on dialysis, Chronic chest pain, Chronic back pain Discharge - Discharge Plan Condition: Good Disposition: HOME Patient Education Materials: Chronic Back Pain (ED) Referrals: Marielena Vargas MD [Primary Care Provider] - Additional Instructions: Call in the morning for a follow up with your doctor. Return if worse, new symptoms or other concerns as discussed. The documentation as recorded by the Justin casey Gabriel accurately reflects the service I personally performed and the decisions made by me, Keagan Copeland MD.
[2017-10-14 21:31] VITALS: BP 197/118
== END 2017-10-14 21:25 | disposition home or self-care (01) ==
LOC: ED 17:52
DX: R07.9 Chest pain, unspecified (principal); G89.29 Other chronic pain; E11.22 Type 2 diabetes mellitus with diabetic chronic kidney disease; I13.2 Hypertensive heart and chronic kidney disease with heart failure and with stage 5 chronic kidney disease, or end stage renal disease; I50.9 Heart failure, unspecified; N18.6 End stage renal disease; Z99.2 Dependence on renal dialysis; R91.8 Other nonspecific abnormal finding of lung field; J98.8 Other specified respiratory disorders; M54.9 Dorsalgia, unspecified; Z88.6 Allergy status to analgesic agent; Z88.5 Allergy status to narcotic agent; Z87.891 Personal history of nicotine dependence
CPT/HCPCS: 71020; 93005; 96372; 99283; A9270-GY; J2270

== ENCOUNTER 2017-10-18 11:38 | Emergency (ER) | payer MEDICARE, MEDICAID ==
[2017-10-18] MEDS ORDERED: Morphine INJ* 4 MG/ML 1 ML CARPUJECT IM ONE (13:50)
[2017-10-18] MEDS ORDERED: LORazepam INJ* 2 MG/ML 1 ML VIAL IM ONE (13:50)
[2017-10-18 17:05] VITALS: BP 230/130
--- NOTE | 2017-10-18 21:11 | ED ---
Sumaya Briones Julia, scribed for Zain Templeton MD on 10/18/17 at 1343 . Back Pain - HPI Summary HPI Summary: This patient is a 67 year old M presenting to [facility] with a chief complaint of lower back pain radiating into his legs since 21:00 on 10/17/17. The patient rates the pain 10/10 in severity. Symptoms aggravated by movement. Symptoms alleviated by nothing. Patient reports a swollen lower back, chest pain, and sores on top of his head. Patient claims he originally hurt his back in 1999 and has had similar episodes of pain since. - History of Current Complaint Chief Complaint: EDBackInjuryPain Stated Complaint: BACK & CHEST PAIN Time Seen by Provider: 10/18/17 13:16 Hx Obtained From: Patient Onset/Duration: Still Present Onset/Duration: Started Days Ago - 1 Timing: Constant Back Pain Location: Radiates To - legs Severity Currently: Severe Pain Intensity: 10 Pain Scale Used: 0-10 Numeric Aggravating Symptom(s): Movement Alleviating Symptom(s): Nothing Associated Signs And Symptoms: Positive: Other - swollen lower back, chest pain , and sores on top of his head - Allergies/Home Medications Allergies/Adverse Reactions: Allergies Allergy/AdvReac Type Severity Reaction Status Date / Time Aspirin Allergy Unknown See Comment Verified 09/18/17 04:38 Hydromorphone [From Dilaudid] AdvReac Intermediate Unknown Verified 09/18/17 04: 38 Reaction Details PMH/Surg Hx/FS Hx/Imm Hx Endocrine/Hematology History: Reports: Hx Blood Transfusions, Hx Sickle Cell Disease - Was told had sickle cell at one point but denies, Hx Anemia Denies: Hx Anticoagulant Therapy, Hx Bone Marrow Disease, Hx Diabetes, Hx Thyroid Disease Cardiovascular History: Reports: Hx Angina, Hx Auto Implanted Cardiovert Defib, Hx Congestive Heart Failure, Hx Coronary Artery Disease, Hx Deep Vein Thrombosis , Hx Hypertension, Hx Pacemaker/ICD, Hx Peripheral Vascular Disease, Hx Syncope , Other Cardiovascular Problems/Disorders - cardiomegaly, mitral valve and tricuspid valve repair Denies: Hx Cardiomegaly, Hx Hypercholesterolemia, Hx Myocardial Infarction, Hx Rheumatic Fever, Hx Valvular Heart Disease Respiratory History: Reports: Hx Asthma, Hx Chronic Obstructive Pulmonary Disease (COPD), Hx Pleural Effusion, Hx Pneumonia, Other Respiratory Problems/ Disorders Denies: Hx Pulmonary Edema, Hx Pulmonary Embolism, Hx Sleep Apnea GI History: Reports: Hx Cirrhosis, Hx Gastroesophageal Reflux Disease, Hx Ulcer - peptic ulcer, Other GI Disorders - hep C Denies: Hx Crohn's Disease, Hx Hiatal Hernia, Hx Irritable Bowel, Hx Jaundice History: Reports: Hx Acute Renal Failure, Hx Chronic Renal Failure, Hx Dialysis, Hx Renal Disease, Other Problems/Disorders - end stage renal disease, on dialysis Denies: Hx Kidney Infection, Hx Kidney Stones Musculoskeletal History: Reports: Hx Arthritis, Hx Back Problems - chronic pain , Hx Orthopedic Injury Denies: Hx Rheumatoid Arthritis, Hx Bursitis, Hx Tendonitis, Other Musculoskeletal History Sensory History: Reports: Hx Glaucoma, Hx Vision Problem Denies: Hx Cataracts, Hx Contacts or Glasses, Hx Hearing Aid Opthamlomology History: Reports: Hx Glaucoma, Hx Vision Problem Denies: Hx Cataracts, Hx Contacts or Glasses Neurological History: Reports: Hx Headaches, Hx Migraine, Other Neuro Impairments/Disorders - depression Denies: Hx Dementia, Hx Seizures Psychiatric History: Reports: Hx Anxiety, Hx Depression Denies: Hx Eating Disorder, Hx Panic Disorder, Hx Suicide Attempt, Hx of Violent Episodes Against Others, Hx Substance Abuse - Cancer History Hx Chemotherapy: No Hx Radiation Therapy: No Hx Palliative Cancer Treatment: No - Surgical History Surgery Procedure, Year, and Place: HERNIA REPAIR 2012. APPENDECTOMY 2000. LEFT ARM AV FISTULA/CAD - REMOVED. CABG 1 vessel, mitral & tricuspid valve repair March 02, 2014 AT [facility] CONDITIONAL 5 UPTO 3T. POWER PORT. Mitral and tricuspid valve repair Hx Anesthesia Reactions: No - Immunization History Date of Tetanus Vaccine: 2014 Date of Influenza Vaccine: Fall 2015 Infectious Disease History: Yes Infectious Disease History: Reports: Hx Hepatitis - Hep C, Hx of Known/ Suspected MRSA, History Other Infectious Disease - Hepatitis C Denies: Hx Clostridium Difficile, Hx Human Immunodeficiency Virus (HIV), Hx Shingles, Hx Tuberculosis, Hx Known/Suspected VRE, Hx Known/Suspected VRSA, Traveled Outside the [place] in Last 30 Days - Family History Known Family History: Positive: Cardiac Disease, Hypertension, Other - CVA Family History: R & N/C - Social History Alcohol Use: None Alcohol Amount: former EtOH abuse Hx Substance Use: Yes Substance Use Type: Reports: Marijuana Substance Use Comment - Amount & Last Used: today Hx Tobacco Use: Yes Smoking Status (MU): Former Smoker Type: Cigarettes Amount Used/How Often: 1/2 ppd Length of Time of Smoking/Using Tobacco: 10 years Have You Smoked in the Last Year: No Review of Systems Positive: Chest Pain Positive: Other - lower back pain Positive: Other - sores on head All Other Systems Reviewed And Are Negative: Yes Physical Exam - Summary Physical Exam Summary: Appearance: The patient is well-nourished in no acute distress and in no acute pain. Skin: The skin is warm and dry and skin color reflects adequate perfusion. HEENT: The head is normocephalic and atraumatic. The pupils are equal and reactive. The conjunctivae are clear and without drainage. Nares are patent and without drainage. Mouth reveals moist mucous membranes and the throat is without erythema and exudate. The external ears are intact. The ear canals are patent and without drainage. The tympanic membranes are intact. Neck: the neck is supple with full range of motion and non-tender. There are no carotid bruits. There is no neck vein distension. Respiratory: Chest is non-tender. Lungs are clear to auscultation and breath sounds are symmetrical and equal. Cardiovascular: Heart is regular rate and rhythm. There is no murmur or rub auscultated. There is no peripheral edema and pulses are symmetrical and equal. Abdomen: The abdomen is soft and non-tender. There are normal bowel sounds heard in all four quadrants and there is no organomegaly palpated. Musculoskeletal: There is R reymundo-lumbar tenderness noted. Extremities are non- tender with full range of motion. There is good capillary refill. There is no peripheral edema or calf tenderness elicited. Neurological: Patient is alert and oriented to person, place and time. The patient has symmetrical motor strength in all four extremities. Cranial nerves are grossly intact. Deep tendon reflexes are symmetrical and equal in all four extremities. Psychiatric: The patient has an appropriate affect and does not exhibit any anxiety or depression. Triage Information Reviewed: Yes Vital Signs On Initial Exam: Initial Vitals Temp Pulse Resp BP Pulse Ox 98.0 F 88 18 207/115 99 10/18/17 11:39 10/18/17 11:39 10/18/17 11:39 10/18/17 11:39 10/18/17 11:39 Vital Signs Reviewed: Yes - [place] Coma Scale Coma Scale Total: 15 Diagnostics - Vital Signs Vital Signs Temp Pulse Resp BP Pulse Ox 10/18/17 13:13 89 24 97 10/18/17 13:12 178/132 10/18/17 11:39 98.0 F 88 18 207/115 99 - Laboratory Lab Statement: Any lab studies that have been ordered have been reviewed, and results considered in the medical decision making process. - EKG 11:48 Cardiac Rate: NL EKG Rhythm: Sinus Rhythm - at 85 BPM EKG Interpretation: reveals LVH and left axis deviation EKG Comparison: No Significant Change Back Pain Course/Dx - Course Course Of Treatment: Mr. Templeton presented with a flair up of his right sided sciatica. He improved with pain meds and muscle relaxers. - Diagnoses Provider Diagnoses: Sciatica Discharge - Discharge Plan Condition: Stable Disposition: HOME Patient Education Materials: Sciatica (ED) Referrals: Marielena Vargas MD [Primary Care Provider] - Additional Instructions: Patient is instructed to follow up with primary care provider, Dr. Vargas. RETURN TO THE EMERGENCY DEPARTMENT FOR CHANGING OR WORSENING SYMPTOMS. The documentation as recorded by the Sumaya casey Julia accurately reflects the service I personally performed and the decisions made by Jareth washington Richard L, MD.
== END 2017-10-18 17:05 | disposition home or self-care (01) ==
LOC: ED 11:38
DX: M54.31 Sciatica, right side (principal); R07.9 Chest pain, unspecified; M54.5 Low back pain; Z87.891 Personal history of nicotine dependence
CPT/HCPCS: 93005; 96372; 99282; J2060; J2270

== ENCOUNTER → 2017-10-21 11:26 | Emergency (ER) | payer MEDICARE, MEDICAID ==
[~2017-10-21 11:26] MED LIST changes: -Albuterol/Ipratropium NEB.SOL* Albuterol 2.5 MG/Ipratropium 0.5 MG 3 ML INH ONE; -Cephalexin CAP* 500 MG PO ONE; +Morphine INJ* 4 MG/ML 1 ML CARPUJECT IM ONE
--- NOTE | 2017-10-21 12:21 | RAD ---
CLINICAL HISTORY: Fall, flank pain, hip pain COMPARISON: September 15, [address] dated June 30, 2017 TECHNIQUE: Multiple contiguous axial CT scans were obtained of the abdomen and pelvis, without intravenous contrast enhancement. Coronal and sagittal multiplanar reformations are submitted for review. Oral contrast was not administered. FINDINGS: The study is limited by the lack of intravenous contrast. This limits evaluation of the solid organs and vasculature. LUNG BASES: Prosthetic heart valves are noted. There is consolidation in the periphery of the left lower lobe. There is focal thickening along the minor fissure on the right. LIVER: The liver is normal in shape, size, contour, and attenuation. BILE DUCTS: There is no intrahepatic or extrahepatic biliary dilatation. GALLBLADDER: The gallbladder is normal, without pericholecystic inflammatory change. PANCREAS: The pancreas is normal, without mass or ductal dilatation. SPLEEN: Normal in size and appearance. UPPER GI TRACT: Evaluation of the gastrointestinal tract is limited by incomplete gastric distention. The upper GI tract is unremarkable. SMALL BOWEL AND MESENTERY: The small bowel is normal in contour, course, and caliber. There is no obstruction or dilatation. COLON: The colon is normal in contour, course, caliber. There is no pericolonic inflammatory change. ADRENALS: Normal bilaterally. KIDNEYS: The kidneys are atrophic. BLADDER: The bladder is collapsed and is not well evaluated. PELVIC ORGANS: The prostate is diffusely enlarged. The seminal vesicles are symmetric. AORTA: There is calcific atherosclerotic disease of the abdominal aorta and its branches, without aneurysmal dilatation IVC: Unremarkable LYMPH NODES: There is no lymphadenopathy by size criteria. ABDOMINAL WALL: There is no evidence for abdominal wall hernia. BONES AND SOFT TISSUES: Mild degenerative changes are noted. OTHER: None IMPRESSION: 1. CONSOLIDATION OF THE PERIPHERY OF THE LEFT LOWER LOBE. 2. ATROPHIC KIDNEYS. 3. FOCAL THICKENING OF THE MINOR FISSURE ON THE RIGHT. RECOMMEND CONSIDERATION OF DEDICATED IMAGING OF THE CHEST IN THE NONACUTE SETTING.
--- NOTE | 2017-10-21 13:45 | ED ---
Davion Briones Tecjoon, scribed for Oskar Galvan MD on 10/21/17 at 1150 . Back Pain - HPI Summary HPI Summary: This patient is a 67 year old male BIBA to [facility] with a chief complaint of lower back pain since 2 days ago, worsening s/p a fall earlier today. Patient was found on floor after his dialysis treatment. Patient states he was getting off scale, fell backwards, and couldnt get up. Patient denies LOC or head trauma in fall. At time of exam, patient is unable to ambulate or change position. The pain is rated 10/10 in severity. Symptoms aggravated by movement and palpation. Symptoms alleviated by nothing. Patient additionally reports right hip pain. Patient denies neck pain - History of Current Complaint Stated Complaint: FALLL Time Seen by Provider: 10/21/17 11:34 Hx Obtained From: Patient Onset/Duration: Lasting Days - 2, Still Present - 2 days ago, Worse Since - earlier today s/p fall Onset/Duration: Started Days Ago - 2, Worse Since - earlier today s/p fall Timing: Constant Back Pain Location: Is Discrete @ - lower back, Radiates To - right hip Pain Intensity: 10 Pain Scale Used: 0-10 Numeric Aggravating Symptom(s): Movement, Other - palpation Alleviating Symptom(s): Nothing Associated Signs And Symptoms: Positive: Negative - neck pain, Other - right hip pain - Allergies/Home Medications Allergies/Adverse Reactions: Allergies Allergy/AdvReac Type Severity Reaction Status Date / Time Aspirin Allergy Unknown See Comment Verified 09/18/17 04:38 Hydromorphone [From Dilaudid] AdvReac Intermediate Unknown Verified 09/18/17 04: 38 Reaction Details PMH/Surg Hx/FS Hx/Imm Hx Previously Healthy: No Endocrine/Hematology History: Reports: Hx Blood Transfusions, Hx Sickle Cell Disease - Was told had sickle cell at one point but denies, Hx Anemia Denies: Hx Anticoagulant Therapy, Hx Bone Marrow Disease, Hx Diabetes, Hx Thyroid Disease Cardiovascular History: Reports: Hx Angina, Hx Auto Implanted Cardiovert Defib, Hx Congestive Heart Failure, Hx Coronary Artery Disease, Hx Deep Vein Thrombosis , Hx Hypertension, Hx Pacemaker/ICD, Hx Peripheral Vascular Disease, Hx Syncope , Other Cardiovascular Problems/Disorders - cardiomegaly, mitral valve and tricuspid valve repair Denies: Hx Cardiomegaly, Hx Hypercholesterolemia, Hx Myocardial Infarction, Hx Rheumatic Fever, Hx Valvular Heart Disease Respiratory History: Reports: Hx Asthma, Hx Chronic Obstructive Pulmonary Disease (COPD), Hx Pleural Effusion, Hx Pneumonia, Other Respiratory Problems/ Disorders Denies: Hx Pulmonary Edema, Hx Pulmonary Embolism, Hx Sleep Apnea GI History: Reports: Hx Cirrhosis, Hx Gastroesophageal Reflux Disease, Hx Ulcer - peptic ulcer, Other GI Disorders - hep C Denies: Hx Crohn's Disease, Hx Hiatal Hernia, Hx Irritable Bowel, Hx Jaundice History: Reports: Hx Acute Renal Failure, Hx Chronic Renal Failure, Hx Dialysis, Hx Renal Disease, Other Problems/Disorders - end stage renal disease, on dialysis Denies: Hx Kidney Infection, Hx Kidney Stones Musculoskeletal History: Reports: Hx Arthritis, Hx Back Problems - chronic pain , Hx Orthopedic Injury Denies: Hx Rheumatoid Arthritis, Hx Bursitis, Hx Tendonitis, Other Musculoskeletal History Sensory History: Reports: Hx Glaucoma, Hx Vision Problem Denies: Hx Cataracts, Hx Contacts or Glasses, Hx Hearing Aid Opthamlomology History: Reports: Hx Glaucoma, Hx Vision Problem Denies: Hx Cataracts, Hx Contacts or Glasses Neurological History: Reports: Hx Headaches, Hx Migraine, Other Neuro Impairments/Disorders - depression Denies: Hx Dementia, Hx Seizures Psychiatric History: Reports: Hx Anxiety, Hx Depression Denies: Hx Eating Disorder, Hx Panic Disorder, Hx Suicide Attempt, Hx of Violent Episodes Against Others, Hx Substance Abuse - Cancer History Hx Chemotherapy: No Hx Radiation Therapy: No Hx Palliative Cancer Treatment: No - Surgical History Surgery Procedure, Year, and Place: HERNIA REPAIR 2012. APPENDECTOMY 2000. LEFT ARM AV FISTULA/CAD - REMOVED. CABG 1 vessel, mitral & tricuspid [facility] CONDITION[facility] 5 UPTO 3T. POWER PORT. Mitral and tricuspid valve repair Hx Anesthesia Reactions: No - Immunization History Date of Tetanus Vaccine: 2014 Date of Influenza Vaccine: Fall 2015 Infectious Disease History: Reports: Hx Hepatitis - Hep C, Hx of Known/ Suspected MRSA, History Other Infectious Disease - Hepatitis C Denies: Hx Clostridium Difficile, Hx Human Immunodeficiency Virus (HIV), Hx Shingles, Hx Tuberculosis, Hx Known/Suspected VRE, Hx Known/Suspected VRSA - Family History Known Family History: Positive: Cardiac Disease, Hypertension, Other - CVA Family History: R & N/C - Social History Alcohol Use: None Alcohol Amount: former EtOH abuse Hx Substance Use: Yes Substance Use Type: Reports: Marijuana Substance Use Comment - Amount & Last Used: today Hx Tobacco Use: Yes Smoking Status (MU): Former Smoker Type: Cigarettes Amount Used/How Often: 1/2 ppd Length of Time of Smoking/Using Tobacco: 10 years Have You Smoked in the Last Year: No Review of Systems Negative: Fever Positive: Other - lower back pain, right hip pain Neurological: Negative - neck pain All Other Systems Reviewed And Are Negative: Yes Physical Exam Triage Information Reviewed: Yes Vital Signs On Initial Exam: Initial Vitals Temp Pulse Resp BP Pulse Ox 97.6 F 89 22 179/98 100 10/21/17 11:45 10/21/17 11:45 10/21/17 11:45 10/21/17 11:45 10/21/17 11:45 Vital Signs Reviewed: Yes Appearance: Positive: Well-Appearing, No Pain Distress Skin: Positive: Warm, Skin Color Reflects Adequate Perfusion Head/Face: Positive: Normal Head/Face Inspection Eyes: Positive: EOMI Neck: Positive: Supple, Nontender Respiratory/Lung Sounds: Positive: Clear to Auscultation, Breath Sounds Present Cardiovascular: Positive: RRR. Negative: Murmur Abdomen Description: Positive: Nontender Musculoskeletal: Positive: Other - some tenderness right lower back, and right hip/pelvis Neurological: Positive: Sensory/Motor Intact, Alert, Oriented to Person Place, Time, CN Intact II-III Psychiatric: Positive: Normal - [place] Coma Scale Best Eye Response: 4 - Spontaneous Best Motor Response: 6 - Obeys Commands Best Verbal Response: 5 - Oriented Diagnostics - Vital Signs Vital Signs Temp Pulse Resp BP Pulse Ox 10/21/17 11:45 97.6 F 89 22 179/98 100 - Laboratory Lab Statement: Any lab studies that have been ordered have been reviewed, and results considered in the medical decision making process. - CT CT Abd/Pel CT Interpretation: Positive (See Comments) - IMPRESSION: 1. CONSOLIDATION OF THE PERIPHERY OF THE LEFT LOWER LOBE. 2. ATROPHIC KIDNEYS. 3. FOCAL THICKENING OF THE MINOR FISSURE ON THE RIGHT. RECOMMEND CONSIDERATION OF DEDICATED IMAGING OF THE CHEST IN THE NONACUTE SETTING. ED physician has reviewed this radiology report. CT Interpretation Completed By: Radiologist Back Pain Course/Dx - Course Course Of Treatment: This patient is a 67 year old male BIBA to [facility] with a chief complaint of lower back pain since 2 days ago, worsening s/p a fall earlier today. Patient was found on floor after his dialysis treatment. Patient states he was getting off scale, fell backwards, and couldnt get up. Patient denies LOC or head trauma in fall. At time of exam, patient is unable to ambulate or change position. The pain is rated 10/10 in severity. Symptoms aggravated by movement and palpation. Symptoms alleviated by nothing. Patient additionally reports right hip pain. Patient denies neck pain. CT Abd/Pel reveals, per radiologist, IMPRESSION: 1. CONSOLIDATION OF THE PERIPHERY OF THE LEFT LOWER LOBE. 2. ATROPHIC KIDNEYS. 3. FOCAL THICKENING OF THE MINOR FISSURE ON THE RIGHT. RECOMMEND CONSIDERATION OF DEDICATED IMAGING OF THE CHEST IN THE NONACUTE SETTING. ED physician has reviewed this radiology report. In the ED course the patient was given Morphine. 67 yr old sp fall without any fractures. He has chronic consolidation of the left lung base by prior ct. DC home. - Diagnoses Provider Diagnoses: Back pain Discharge - Discharge Plan Condition: Good Disposition: HOME Patient Education Materials: Contusion in Adults (ED), Hypertension (ED) Referrals: Marielena Vargas MD [Primary Care Provider] - 1 Day The documentation as recorded by the Davion casey Tecjoon accurately reflects the service I personally performed and the decisions made by , Oskar Galvan MD.
[2017-10-21 14:14] VITALS: BP 172/88
== END | disposition home or self-care (01) ==
LOC: ED 11:26
DX: M54.5 Low back pain (principal); M25.551 Pain in right hip; Z87.891 Personal history of nicotine dependence; Z86.79 Personal history of other diseases of the circulatory system; Z84.1 Family history of disorders of kidney and ureter
CPT/HCPCS: 74176; 96372; 99282; J2270

== ENCOUNTER 2017-11-03 01:17 | Emergency (ER) | payer MEDICARE, MEDICAID ==
[2017-11-03] MEDS ORDERED: Albuterol/Ipratropium NEB.SOL* Albuterol 2.5 MG/Ipratropium 0.5 MG 3 ML INH ONE (02:01)
[2017-11-03 02:28] LABS: ABS Basophils 0.1 10^3/ul (0-0.2); ABS Eosinophils 0 10^3/ul (0-0.6); ABS Lymphocytes 0.7 10^3/ul (1.0-4.8); ABS Monocytes 0.9 10^3/ul (0-0.8); ABS Neutrophils 2.6 10^3/ul (1.5-7.7); ABS Nucleated RBC 0 10^3/ul; Eosinophil % 0.9 % (0-6); Hematocrit 36 % (42-52); Hemoglobin 11.5 g/dl (14.0-18.0); Lymphocyte % 17.3 % (25-47); Mean Corpuscular HGB Conc 32 g/dl (31-36); Mean Corpuscular Hemoglobin 28 pg (27-31); Mean Corpuscular Volume 86 fL (80-94); Mean Platelet Volume 8 um3 (7.4-10.4); Nucleated Red Blood Cells % 0.2; Platelet Count 116 10^3/ul (150-450); Red Blood Count 4.14 10^6/ul (4.0-5.4); Red Cell Distribution Width 17 % (10.5-15); White Blood Count 4.3 10^3/ul (3.5-10.8)
[2017-11-03 02:32] LABS: INR 1.34 (0.77-1.02)
[2017-11-03 03:20] LABS: EGFR Non-African American 7.1 (>60)
[2017-11-03 03:31] VITALS: BP 160/103
--- NOTE | 2017-11-03 04:46 | ED ---
Celine Briones Nilda, scribed for Yuly Ponce MD on 11/03/17 at 0258 . HPI Chest Pain - HPI Summary HPI Summary: This patient is a 67 year old M presenting to [facility] with a chief complaint of constant severe non-radiating left-sided CP that began a couple hours ago. Pt is concerned his potassium is elevated. Pt reports dizziness. The patient rates the pain 9/10 in severity. Symptoms aggravated and alleviated by nothing. Patient denies eating salt. Pt requests breathing treatment. He states he is on O2 at home. Pt had dialysis 1030 yesterday morning. - History of Current Complaint Chief Complaint: EDChestPainROMI Time Seen by Provider: 11/03/17 01:33 Hx Obtained From: Patient Onset/Duration: Started Hours Ago, Atraumatic, Still Present Timing: Constant Current Severity: Severe Pain Intensity: 9 Pain Scale Used: 0-10 Numeric Chest Pain Location: Left Lateral Chest Pain Radiates: No Aggravating Factor(s): Nothing Alleviating Factor(s): Nothing Associated Signs and Symptoms: Positive: Dizziness - Additional Pertinent History Primary Care Physician: YARIEL - Allergy/Home Medications Allergies/Adverse Reactions: Allergies Allergy/AdvReac Type Severity Reaction Status Date / Time Aspirin Allergy Unknown See Comment Verified 11/03/17 01:42 Hydromorphone [From Dilaudid] AdvReac Intermediate Unknown Verified 11/03/17 01: 42 Reaction Details PMH/Surg Hx/FS Hx/Imm Hx Endocrine/Hematology History: Reports: Hx Blood Transfusions, Hx Sickle Cell Disease - Was told had sickle cell at one point but denies, Hx Anemia Denies: Hx Anticoagulant Therapy, Hx Bone Marrow Disease, Hx Diabetes, Hx Thyroid Disease Cardiovascular History: Reports: Hx Angina, Hx Auto Implanted Cardiovert Defib, Hx Congestive Heart Failure, Hx Coronary Artery Disease, Hx Deep Vein Thrombosis , Hx Hypertension, Hx Pacemaker/ICD, Hx Peripheral Vascular Disease, Hx Syncope , Other Cardiovascular Problems/Disorders - cardiomegaly, mitral valve and tricuspid valve repair Denies: Hx Cardiomegaly, Hx Hypercholesterolemia, Hx Myocardial Infarction, Hx Rheumatic Fever, Hx Valvular Heart Disease Respiratory History: Reports: Hx Asthma, Hx Chronic Obstructive Pulmonary Disease (COPD), Hx Pleural Effusion, Hx Pneumonia, Other Respiratory Problems/ Disorders Denies: Hx Pulmonary Edema, Hx Pulmonary Embolism, Hx Sleep Apnea GI History: Reports: Hx Cirrhosis, Hx Gastroesophageal Reflux Disease, Hx Ulcer - peptic ulcer, Other GI Disorders - hep C Denies: Hx Crohn's Disease, Hx Hiatal Hernia, Hx Irritable Bowel, Hx Jaundice History: Reports: Hx Acute Renal Failure, Hx Chronic Renal Failure, Hx Dialysis, Hx Renal Disease, Other Problems/Disorders - end stage renal disease, on dialysis Denies: Hx Kidney Infection, Hx Kidney Stones Musculoskeletal History: Reports: Hx Arthritis, Hx Back Problems - chronic pain , Hx Orthopedic Injury Denies: Hx Rheumatoid Arthritis, Hx Bursitis, Hx Tendonitis, Other Musculoskeletal History Sensory History: Reports: Hx Glaucoma, Hx Vision Problem Denies: Hx Cataracts, Hx Contacts or Glasses, Hx Hearing Aid Opthamlomology History: Reports: Hx Glaucoma, Hx Vision Problem Denies: Hx Cataracts, Hx Contacts or Glasses Neurological History: Reports: Hx Headaches, Hx Migraine, Other Neuro Impairments/Disorders - depression Denies: Hx Dementia, Hx Seizures Psychiatric History: Reports: Hx Anxiety, Hx Depression Denies: Hx Eating Disorder, Hx Panic Disorder, Hx Suicide Attempt, Hx of Violent Episodes Against Others, Hx Substance Abuse - Cancer History Hx Chemotherapy: No Hx Radiation Therapy: No Hx Palliative Cancer Treatment: No - Surgical History Surgery Procedure, Year, and Place: HERNIA REPAIR 2012. APPENDECTOMY 2000. LEFT ARM AV FISTULA/CAD - REMOVED. CABG 1 vessel, mitral & tricuspid valve repair March 02, 2014 AT [facility] CONDITIONAL 5 UPTO 3T. POWER PORT. Mitral and tricuspid valve repair Hx Anesthesia Reactions: No - Immunization History Date of Tetanus Vaccine: 2014 Date of Influenza Vaccine: Fall 2015 Infectious Disease History: No Infectious Disease History: Reports: Hx Hepatitis - Hep C, Hx of Known/ Suspected MRSA, History Other Infectious Disease - Hepatitis C Denies: Hx Clostridium Difficile, Hx Human Immunodeficiency Virus (HIV), Hx Shingles, Hx Tuberculosis, Hx Known/Suspected VRE, Hx Known/Suspected VRSA, Traveled Outside the [place] in Last 30 Days - Family History Known Family History: Positive: Cardiac Disease, Hypertension, Other - CVA Family History: R & N/C - Social History Alcohol Use: None Alcohol Amount: former EtOH abuse Hx Substance Use: Yes Substance Use Type: Reports: Marijuana Substance Use Comment - Amount & Last Used: today Hx Tobacco Use: Yes Smoking Status (MU): Former Smoker Type: Cigarettes Amount Used/How Often: 1/2 ppd Length of Time of Smoking/Using Tobacco: 10 years Have You Smoked in the Last Year: No Review of Systems Positive: Chest Pain - left sided Neurological: Other - dizziness All Other Systems Reviewed And Are Negative: Yes Physical Exam - Summary Physical Exam Summary: VITAL SIGNS: Reviewed. GENERAL: Patient is a well-developed and nourished male who seems anxious. HEAD AND FACE: No signs of trauma. No ecchymosis, hematomas or skull depressions. No sinus tenderness. EYES: PERRLA, EOMI x 2, No injected conjunctiva, no nystagmus. EARS: Hearing grossly intact. Ear canals and tympanic membranes are within normal limits. MOUTH: Oropharynx within normal limits. NECK: Supple, trachea is midline, no adenopathy, no JVD, no carotid bruit, no c- spine tenderness, neck with full ROM. CHEST: Shiley dialysis catheter over left upper chest. LUNGS: Clear to auscultation bilaterally. No wheezing or crackles. CVS: Regular rate and rhythm, S1 and S2 present, no murmurs or gallops appreciated. ABDOMEN: Soft, non-tender. No signs of distention. No rebound no guarding, and no masses palpated. Bowel sounds are normal. EXTREMITIES: FROM in all major joints, no edema, no cyanosis or clubbing. Pt has old non-working dialysis catheter on right forearm. NEURO: Alert and oriented x 3. No acute neurological deficits. Speech is normal and follows commands. SKIN: Dry and warm Triage Information Reviewed: Yes Vital Signs On Initial Exam: Initial Vitals Temp Pulse Resp BP Pulse Ox 99.3 F 80 16 153/105 100 11/03/17 01:19 11/03/17 01:19 11/03/17 01:19 11/03/17 01:19 11/03/17 01:19 Vital Signs Reviewed: Yes - [place] Coma Scale Coma Scale Total: 15 Diagnostics - Vital Signs Vital Signs Temp Pulse Resp BP Pulse Ox 11/03/17 01:19 99.3 F 80 16 153/105 100 - Laboratory Result Diagrams: 11/03/17 02:12 11/03/17 02:12 Lab Statement: Any lab studies that have been ordered have been reviewed, and results considered in the medical decision making process. - Radiology CXR Radiology Interpretation Completed By: ED Physician - HUY. - EKG 134 Cardiac Rate: NL EKG Rhythm: Sinus Rhythm - 77bpm EKG Interpretation: T wave inversion in lead 1 and AVL, LVH Re-Evaluation - Re-Evaluation First Eval Re-Evaluation Time: 03:18 Comment: Reviewed lab and imaging results with pt. Pt agreeable to D/C Chest Pain Course/Dx - Course Assessment/Plan: Pt is a 67 y/o M who has visted ED multiple times with same symptoms. Pt requested breathing treatment and had own fan in room. CXR was unremarkable. Labs WNL at his baseline, no hyperkalemia. Pt feels better after one breathing treatment. Pt is stable and was D/C home w/ Dx of anxiety. Pt understands and is agreeable with plan. - Diagnoses Provider Diagnoses: Anxiety Discharge - Discharge Plan Condition: Stable Disposition: HOME Patient Education Materials: Anxiety (ED) Referrals: Marielena Vargas MD [Primary Care Provider] - 3 Days Additional Instructions: RETURN TO THE EMERGENCY DEPARTMENT FOR CHANGING OR WORSENING SYMPTOMS The documentation as recorded by the Celine casey Nilda accurately reflects the service I personally performed and the decisions made by me, Yuly Ponce MD.
--- NOTE | 2017-11-03 07:47 | RAD ---
HISTORY: Shortness of breath COMPARISONS: October 14, 2017 VIEWS: 1: frontal portable view of the chest at 2:47 AM FINDINGS: LINES AND TUBES: A left-sided pacemaker is noted. A left-sided central venous catheter is noted from a left internal jugular vein approach with the tip overlying the cavoatrial junction. CARDIOMEDIASTINAL SILHOUETTE: The cardiomediastinal silhouette is normal for portable technique. PLEURA: There is blunting of left costophrenic angle. LUNG PARENCHYMA: There is patchy alveolar opacification of the left lung base. ABDOMEN: The upper abdomen is clear. There is no subphrenic gas. BONES AND SOFT TISSUES: The patient is status post median sternotomy. IMPRESSION: 1. LINES AND TUBES ABOVE. 2. SMALL LEFT PLEURAL EFFUSION WITH LEFT BASILAR ATELECTASIS VERSUS CONSOLIDATION
== END 2017-11-03 03:34 | disposition home or self-care (01) ==
LOC: ED 01:17
DX: F41.9 Anxiety disorder, unspecified (principal); R42 Dizziness and giddiness; Z87.09 Personal history of other diseases of the respiratory system; Z87.891 Personal history of nicotine dependence; R07.9 Chest pain, unspecified
CPT/HCPCS: 36415; 71045; 80053; 84484; 85025; 85610; 85730; 93005; 94640; 99282; A9270-GY

== ENCOUNTER 2017-11-12 20:34 | Emergency (ER) | payer MEDICARE ==
[2017-11-12] MEDS ORDERED: Morphine INJ* 4 MG/ML 1 ML CARPUJECT IV ONE (20:48)
[2017-11-12 21:16] VITALS: BP 174/114
--- NOTE | 2017-11-13 06:56 | ED ---
Siva Briones Angela, scribed for Keagan Copeland MD on 11/12/17 at 2053 . Abdominal Pain/Male - HPI Summary HPI Summary: This pt is a 67 y/o male presenting to [facility] via EMS c/o bilateral flank pain. He denies fever, SOB, nausea, vomiting. Pt reports he has not had difficulty moving his bowels. Pt is a dialysis patient and states the last time he was dialyzed was yesterday. He has dialysis tomorrow at 05:00. Pt has multiple visits to the ED for pain. He would like a shot of morphine. - History of Current Complaint Chief Complaint: EDFlankPain Stated Complaint: CHEST PAIN Time Seen by Provider: 11/12/17 20:43 Hx Obtained From: Patient Onset/Duration: Still Present Timing: Lasting Hours Severity Currently: Moderate Pain Intensity: 6 Pain Scale Used: 0-10 Numeric Location: Flank Radiates: No Aggravating Factor(s): Nothing Alleviating Factor(s): Nothing Associated Signs And Symptoms: Positive: Negative - Allergies/Home Medications Allergies/Adverse Reactions: Allergies Allergy/AdvReac Type Severity Reaction Status Date / Time Aspirin Allergy Unknown See Comment Verified 11/03/17 01:42 Hydromorphone [From Dilaudid] AdvReac Intermediate Unknown Verified 11/03/17 01: 42 Reaction Details PMH/Surg Hx/FS Hx/Imm Hx Endocrine/Hematology History: Reports: Hx Blood Transfusions, Hx Sickle Cell Disease - Was told had sickle cell at one point but denies, Hx Anemia Denies: Hx Anticoagulant Therapy, Hx Bone Marrow Disease, Hx Diabetes, Hx Thyroid Disease Cardiovascular History: Reports: Hx Angina, Hx Auto Implanted Cardiovert Defib, Hx Congestive Heart Failure, Hx Coronary Artery Disease, Hx Deep Vein Thrombosis , Hx Hypertension, Hx Pacemaker/ICD, Hx Peripheral Vascular Disease, Hx Syncope , Other Cardiovascular Problems/Disorders - cardiomegaly, mitral valve and tricuspid valve repair Denies: Hx Cardiomegaly, Hx Hypercholesterolemia, Hx Myocardial Infarction, Hx Rheumatic Fever, Hx Valvular Heart Disease Respiratory History: Reports: Hx Asthma, Hx Chronic Obstructive Pulmonary Disease (COPD), Hx Pleural Effusion, Hx Pneumonia, Other Respiratory Problems/ Disorders Denies: Hx Pulmonary Edema, Hx Pulmonary Embolism, Hx Sleep Apnea GI History: Reports: Hx Cirrhosis, Hx Gastroesophageal Reflux Disease, Hx Ulcer - peptic ulcer, Other GI Disorders - hep C Denies: Hx Crohn's Disease, Hx Hiatal Hernia, Hx Irritable Bowel, Hx Jaundice History: Reports: Hx Acute Renal Failure, Hx Chronic Renal Failure, Hx Dialysis, Hx Renal Disease, Other Problems/Disorders - end stage renal disease, on dialysis Denies: Hx Kidney Infection, Hx Kidney Stones Musculoskeletal History: Reports: Hx Arthritis, Hx Back Problems - chronic pain , Hx Orthopedic Injury Denies: Hx Rheumatoid Arthritis, Hx Bursitis, Hx Tendonitis, Other Musculoskeletal History Sensory History: Reports: Hx Glaucoma, Hx Vision Problem Denies: Hx Cataracts, Hx Contacts or Glasses, Hx Hearing Aid Opthamlomology History: Reports: Hx Glaucoma, Hx Vision Problem Denies: Hx Cataracts, Hx Contacts or Glasses Neurological History: Reports: Hx Headaches, Hx Migraine, Other Neuro Impairments/Disorders - depression Denies: Hx Dementia, Hx Seizures Psychiatric History: Reports: Hx Anxiety, Hx Depression Denies: Hx Eating Disorder, Hx Panic Disorder, Hx Suicide Attempt, Hx of Violent Episodes Against Others, Hx Substance Abuse - Cancer History Hx Chemotherapy: No Hx Radiation Therapy: No Hx Palliative Cancer Treatment: No - Surgical History Surgery Procedure, Year, and Place: HERNIA REPAIR 2012. APPENDECTOMY 2000. LEFT ARM AV FISTULA/CAD - REMOVED. CABG 1 vessel, mitral & tricuspid valve repair March 02, 2014 AT [facility] CONDITIONAL 5 UPTO 3T. POWER PORT. Mitral and tricuspid valve repair Hx Anesthesia Reactions: No - Immunization History Date of Tetanus Vaccine: 2014 Date of Influenza Vaccine: Fall 2015 Infectious Disease History: Yes Infectious Disease History: Reports: Hx Hepatitis - Hep C, Hx of Known/ Suspected MRSA, History Other Infectious Disease - Hepatitis C Denies: Hx Clostridium Difficile, Hx Human Immunodeficiency Virus (HIV), Hx Shingles, Hx Tuberculosis, Hx Known/Suspected VRE, Hx Known/Suspected VRSA, Traveled Outside the [place] in Last 30 Days - Family History Known Family History: Positive: None, Cardiac Disease, Hypertension, Other - CVA Family History: R & N/C - Social History Alcohol Use: None Alcohol Amount: former EtOH abuse Hx Substance Use: Yes Substance Use Type: Reports: Marijuana Substance Use Comment - Amount & Last Used: today Hx Tobacco Use: Yes Smoking Status (MU): Former Smoker Type: Cigarettes Amount Used/How Often: 1/2 ppd Length of Time of Smoking/Using Tobacco: 10 years Have You Smoked in the Last Year: No Review of Systems Negative: Fever, Chills Negative: Shortness Of Breath Negative: Diarrhea, Other - constipation Positive: flank pain All Other Systems Reviewed And Are Negative: Yes Physical Exam - Summary Physical Exam Summary: Appearance: Well appearing, no pain distress Skin: warm, dry, reflects adequate perfusion Head/face: normal Eyes: EOMI, KINGS ENT: normal. Moist mucous membranes. Neck: supple, non-tender Respiratory: A little diminished breath sounds, breath sounds present Chest: Tesio catheter in the left chest. Pacemaker on the left chest. Cardiovascular: RRR, pulses symmetrical. No LE edema. Abdomen: non-tender, soft, guards a little. Bowel: present Musculoskeletal: normal, strength/ROM intact. No LE edema. Neuro: normal, sensory motor intact, A&Ox3 Triage Information Reviewed: Yes Vital Signs On Initial Exam: Initial Vitals Temp Pulse Resp BP Pulse Ox 98.1 F 79 18 172/115 97 11/12/17 20:35 11/12/17 20:35 11/12/17 20:35 11/12/17 20:35 11/12/17 20:35 Vital Signs Reviewed: Yes Diagnostics - Vital Signs Vital Signs Temp Pulse Resp BP Pulse Ox 11/12/17 20:35 98.1 F 79 18 172/115 97 - Laboratory Lab Statement: Any lab studies that have been ordered have been reviewed, and results considered in the medical decision making process. Abdominal Pain Fem Course/Dx - Course Course Of Treatment: near daily visitor to ED here for shot for pain. Tx and d/ c in good condition - Diagnoses Provider Diagnoses: Chronic pain syndrome, End stage renal disease on dialysis, Opiate dependence Discharge - Discharge Plan Condition: Good Disposition: HOME Patient Education Materials: Chronic Abdominal Pain (ED) Referrals: Marielena Vargas MD [Primary Care Provider] - Additional Instructions: Call your doctor for pain problems. Do not use ambulance for non-emergencies. Return if worse or other concerns. The documentation as recorded by the Siva casey Angela accurately reflects the service I personally performed and the decisions made by me, Keagan Copeland MD.
== END 2017-11-12 21:18 | disposition home or self-care (01) ==
LOC: ED 20:34
DX: G89.4 Chronic pain syndrome (principal); N18.6 End stage renal disease; F11.20 Opioid dependence, uncomplicated; R10.84 Generalized abdominal pain; Z87.891 Personal history of nicotine dependence; Z99.2 Dependence on renal dialysis
CPT/HCPCS: 96374; 99282; J2270

== ENCOUNTER 2017-11-13 03:26 | Emergency (ER) | payer MEDICARE ==
[2017-11-13] MEDS ORDERED: Lidocaine 1% MPF wEPI 200,000* 30 ML SDV INJ ONE (03:33)
[2017-11-13] MEDS ORDERED: Lidocaine 2% EPI 1:200000 MPF* 20 ML VIAL ONE (03:34)
--- NOTE | 2017-11-13 04:40 | ED ---
Medical Screening - HPI Summary HPI Summary: 67yo M well known, nearly daily visitor to the ER presents with bleeding from his dialysis catheter site that occurred intermittently tonight, but awoke him from sleep 1hr ago. He is due for dialysis at 5am today and is heparinized for dialysis. - History of Current Complaint Chief Complaint: EDGeneral Stated Complaint: BLEEDING FROM PORT Time Seen by Provider: 11/13/17 03:27 PMH/Surg Hx/FS Hx/Imm Hx Endocrine/Hematology History: Reports: Hx Blood Transfusions, Hx Sickle Cell Disease - Was told had sickle cell at one point but denies, Hx Anemia Denies: Hx Anticoagulant Therapy, Hx Bone Marrow Disease, Hx Diabetes, Hx Thyroid Disease Cardiovascular History: Reports: Hx Angina, Hx Auto Implanted Cardiovert Defib, Hx Congestive Heart Failure, Hx Coronary Artery Disease, Hx Deep Vein Thrombosis , Hx Hypertension, Hx Pacemaker/ICD, Hx Peripheral Vascular Disease, Hx Syncope , Other Cardiovascular Problems/Disorders - cardiomegaly, mitral valve and tricuspid valve repair Denies: Hx Cardiomegaly, Hx Hypercholesterolemia, Hx Myocardial Infarction, Hx Rheumatic Fever, Hx Valvular Heart Disease Respiratory History: Reports: Hx Asthma, Hx Chronic Obstructive Pulmonary Disease (COPD), Hx Pleural Effusion, Hx Pneumonia, Other Respiratory Problems/ Disorders Denies: Hx Pulmonary Edema, Hx Pulmonary Embolism, Hx Sleep Apnea GI History: Reports: Hx Cirrhosis, Hx Gastroesophageal Reflux Disease, Hx Ulcer - peptic ulcer, Other GI Disorders - hep C Denies: Hx Crohn's Disease, Hx Hiatal Hernia, Hx Irritable Bowel, Hx Jaundice History: Reports: Hx Acute Renal Failure, Hx Chronic Renal Failure, Hx Dialysis, Hx Renal Disease, Other Problems/Disorders - end stage renal disease, on dialysis Denies: Hx Kidney Infection, Hx Kidney Stones Musculoskeletal History: Reports: Hx Arthritis, Hx Back Problems - chronic pain , Hx Orthopedic Injury Denies: Hx Rheumatoid Arthritis, Hx Bursitis, Hx Tendonitis, Other Musculoskeletal History Sensory History: Reports: Hx Glaucoma, Hx Vision Problem Denies: Hx Cataracts, Hx Contacts or Glasses, Hx Hearing Aid Opthamlomology History: Reports: Hx Glaucoma, Hx Vision Problem Denies: Hx Cataracts, Hx Contacts or Glasses Neurological History: Reports: Hx Headaches, Hx Migraine, Other Neuro Impairments/Disorders - depression Denies: Hx Dementia, Hx Seizures Psychiatric History: Reports: Hx Anxiety, Hx Depression Denies: Hx Eating Disorder, Hx Panic Disorder, Hx Suicide Attempt, Hx of Violent Episodes Against Others, Hx Substance Abuse - Cancer History Hx Chemotherapy: No Hx Radiation Therapy: No Hx Palliative Cancer Treatment: No - Surgical History Surgery Procedure, Year, and Place: HERNIA REPAIR 2012. APPENDECTOMY 2000. LEFT ARM AV FISTULA/CAD - REMOVED. CABG 1 vessel, mitral & tricuspid valve repair March 02, 2014 AT [facility] CONDITIONAL 5 UPTO 3T. POWER PORT. Mitral and tricuspid valve repair Hx Anesthesia Reactions: No - Immunization History Date of Tetanus Vaccine: 2014 Date of Influenza Vaccine: Fall 2015 Infectious Disease History: No Infectious Disease History: Reports: Hx Hepatitis - Hep C, Hx of Known/ Suspected MRSA, History Other Infectious Disease - Hepatitis C Denies: Hx Clostridium Difficile, Hx Human Immunodeficiency Virus (HIV), Hx Shingles, Hx Tuberculosis, Hx Known/Suspected VRE, Hx Known/Suspected VRSA, Traveled Outside the in Last 30 Days - Family History Known Family History: Positive: None, Cardiac Disease, Hypertension, Other - CVA Family History: R & N/C - Social History Alcohol Use: None Alcohol Amount: former EtOH abuse Hx Substance Use: Yes Substance Use Type: Reports: Marijuana Substance Use Comment - Amount & Last Used: today Hx Tobacco Use: Yes Smoking Status (MU): Former Smoker Type: Cigarettes Amount Used/How Often: 1/2 ppd Length of Time of Smoking/Using Tobacco: 10 years Have You Smoked in the Last Year: No Review of Systems Negative: Fatigue Negative: Chest Pain Negative: Shortness Of Breath Positive: Other - bleeding Psychological: Normal All Other Systems Reviewed And Are Negative: Yes Physical Exam Triage Information Reviewed: Yes Vital Signs On Initial Exam: Initial Vitals Temp Pulse Resp BP Pulse Ox 36.9 C 77 16 174/130 95 11/13/17 03:40 11/13/17 03:40 11/13/17 03:40 11/13/17 03:40 11/13/17 03:40 Vital Signs Reviewed: Yes Appearance: Positive: Well-Appearing, No Pain Distress Skin: Positive: Warm, Dry, Other - Tessio dialysis catheter in the L chest with small opening in skin and slow oozing of red blood. Dried piece of surgical glue in the area from prior attempt to stop ENT: Positive: Normal ENT inspection Respiratory/Lung Sounds: Positive: Clear to Auscultation Cardiovascular: Positive: Normal, Other - pacer L chest Abdomen Description: Positive: Nontender Musculoskeletal: Positive: Other - RUE edema, fistula Neurological: Positive: Normal, Sensory/Motor Intact Psychiatric: Positive: Normal Procedures - Procedure Summary Procedure Summary: Bleeding Control R chest: I attempted to stop bleeding with surgical foam and pressure without success. Skin in area cleaned with alcohol and I then placed 1cc of Lidocaine 2% with epi in the skin surrounding the skin opening and placed a single horizontal mattress suture of 4-0 Prolene. I pulled this tight and placed Surgicel over the area and a pressure dressing. This stopped bleeding. Tolerated well, no complications. Diagnostics - Vital Signs Vital Signs Temp Pulse Resp BP Pulse Ox 11/13/17 03:40 36.9 C 77 16 174/130 95 - Laboratory Lab Statement: Any lab studies that have been ordered have been reviewed, and results considered in the medical decision making process. Re-Evaluation - Re-Evaluation First Eval Re-Evaluation Time: 04:00 Change: Improved Course/Dx - Course Course Of Treatment: area stopped bleeding with a stitch and surgicel. Pt d/c to dialysis. - Diagnoses Provider Diagnoses: Hemorrhage from dialysis catheter, ESRF (end stage renal failure) Discharge - Discharge Plan Condition: Good Disposition: HOME Referrals: Marielena Vargas MD [Primary Care Provider] - Additional Instructions: Go to dialysis at 5am.
[2017-11-13 04:43] VITALS: BP 159/118
== END 2017-11-13 04:42 | disposition home or self-care (01) ==
LOC: ED 03:26
DX: T82.838A Hemorrhage due to vascular prosthetic devices, implants and grafts, initial encounter (principal); I12.0 Hypertensive chronic kidney disease with stage 5 chronic kidney disease or end stage renal disease; N18.6 End stage renal disease; Z99.2 Dependence on renal dialysis; Z87.891 Personal history of nicotine dependence
CPT/HCPCS: 99283; J2001

== ENCOUNTER 2017-11-18 12:42 | Emergency (ER) | payer MEDICARE ==
[2017-11-18] MEDS ORDERED: oxyCODONE/Acetamin 5/325 MG* TAB PO ONE ×2 (13:27→15:33)
[2017-11-18 13:58] LABS: Hematocrit 32 % (42-52); Hemoglobin 10.5 g/dl (14.0-18.0); Mean Corpuscular HGB Conc 33 g/dl (31-36); Mean Corpuscular Hemoglobin 28 pg (27-31); Mean Corpuscular Volume 87 fL (80-94); Mean Platelet Volume 8 um3 (7.4-10.4); Platelet Count 92 10^3/ul (150-450); Red Blood Count 3.72 10^6/ul (4.0-5.4); Red Cell Distribution Width 18 % (10.5-15); White Blood Count 4.3 10^3/ul (3.5-10.8)
[2017-11-18 13:59] LABS: EGFR Non-African American 8.2 (>60)
--- NOTE | 2017-11-18 14:11 | RAD ---
INDICATION: Chest pain COMPARISON: November 03, 2017 TECHNIQUE: An AP portable view obtained at 1340 hours is submitted. FINDINGS: Bones/Soft Tissues: There are no acute bony findings. There is sternotomy. There is a left-sided cardiac pacemaker. There is a left-sided port catheter. Cardiomediastinal: The cardiac silhouette is prominent as are the central pulmonary vessels and interstitium. Lungs: Mild bibasilar airspace disease consistent with infiltrate or atelectasis.. Pleura: Small bilateral pleural effusions. Other: None IMPRESSION: VASCULAR CONGESTIVE FINDINGS. BIBASAL AIRSPACE DISEASE. SUGGEST FOLLOW-UP.
[2017-11-18 14:17] LABS: ABS Basophils 0 10^3/ul (0-0.2); ABS Eosinophils 0 10^3/ul (0-0.6); ABS Lymphocytes 0.6 10^3/ul (1.0-4.8); ABS Monocytes 0.7 10^3/ul (0-0.8); ABS Neutrophils 2.8 10^3/ul (1.5-7.7); ABS Nucleated RBC 0 10^3/ul; Eosinophil % 0.9 % (0-6); Lymphocyte % 14.7 % (25-47); Nucleated Red Blood Cells % 0.1
[2017-11-18 15:24] VITALS: BP 148/88
[2017-11-18] MEDS ORDERED: Levofloxacin TAB* 250 MG PO ONE (15:33)
--- NOTE | 2017-11-20 11:38 | ED ---
Siva Briones Angela, scribed for Oskar Reyes MD on 11/18/17 at 1309 . HPI Chest Pain - HPI Summary HPI Summary: This pt is a 67 y/o male presenting to [facility] [place] [place] c/o chest pain 1 hour [employer]. Pt reports he had dialysis this morning. He states he then went home and took a nap. Pt notes his chest pain began at approximately noon today. He describes it as a burning pain. Pt additionally notes lower extremity pain. Pt is a frequent visitor to the ED. - History of Current Complaint Chief Complaint: EDChestPainROMI Time Seen by Provider: 11/18/17 13:03 Hx Obtained From: Patient Onset/Duration: Started Hours Ago, Atraumatic, Still Present Timing: Constant, Lasting Hours Current Severity: Severe Pain Intensity: 10 Pain Scale Used: 0-10 Numeric Chest Pain Location: Diffuse Chest Pain Radiates: No Character: Burning Aggravating Factor(s): Nothing Alleviating Factor(s): Nothing Associated Signs and Symptoms: Positive: Chest Pain - Additional Pertinent History Primary Care Physician: YARIEL - Allergy/Home Medications Allergies/Adverse Reactions: Allergies Allergy/AdvReac Type Severity Reaction Status Date / Time MS Aspirin [Aspirin] Allergy Unknown See Comment Verified 11/03/17 01:42 MS Hydromorphone AdvReac Intermediate Unknown Verified 11/03/17 01:42 [From Dilaudid] Reaction Details PMH/Surg Hx/FS Hx/Imm Hx Endocrine/Hematology History: Reports: Hx Blood Transfusions, Hx Sickle Cell Disease - Was told had sickle cell at one point but denies, Hx Anemia Denies: Hx Anticoagulant Therapy, Hx Bone Marrow Disease, Hx Diabetes, Hx Thyroid Disease Cardiovascular History: Reports: Hx Angina, Hx Auto Implanted Cardiovert Defib, Hx Congestive Heart Failure, Hx Coronary Artery Disease, Hx Deep Vein Thrombosis , Hx Hypertension, Hx Pacemaker/ICD, Hx Peripheral Vascular Disease, Hx Syncope , Other Cardiovascular Problems/Disorders - cardiomegaly, mitral valve and tricuspid valve repair Denies: Hx Cardiomegaly, Hx Hypercholesterolemia, Hx Myocardial Infarction, Hx Rheumatic Fever, Hx Valvular Heart Disease Respiratory History: Reports: Hx Asthma, Hx Chronic Obstructive Pulmonary Disease (COPD), Hx Pleural Effusion, Hx Pneumonia, Other Respiratory Problems/ Disorders Denies: Hx Pulmonary Edema, Hx Pulmonary Embolism, Hx Sleep Apnea GI History: Reports: Hx Cirrhosis, Hx Gastroesophageal Reflux Disease, Hx Ulcer - peptic ulcer, Other GI Disorders - hep C Denies: Hx Crohn's Disease, Hx Hiatal Hernia, Hx Irritable Bowel, Hx Jaundice History: Reports: Hx Acute Renal Failure, Hx Chronic Renal Failure, Hx Dialysis, Hx Renal Disease, Other Problems/Disorders - end stage renal disease, on dialysis Denies: Hx Kidney Infection, Hx Kidney Stones Musculoskeletal History: Reports: Hx Arthritis, Hx Back Problems - chronic pain , Hx Orthopedic Injury Denies: Hx Rheumatoid Arthritis, Hx Bursitis, Hx Tendonitis, Other Musculoskeletal History Sensory History: Reports: Hx Glaucoma, Hx Vision Problem Denies: Hx Cataracts, Hx Contacts or Glasses, Hx Hearing Aid Opthamlomology History: Reports: Hx Glaucoma, Hx Vision Problem Denies: Hx Cataracts, Hx Contacts or Glasses Neurological History: Reports: Hx Headaches, Hx Migraine, Other Neuro Impairments/Disorders - depression Denies: Hx Dementia, Hx Seizures Psychiatric History: Reports: Hx Anxiety, Hx Depression Denies: Hx Eating Disorder, Hx Panic Disorder, Hx Suicide Attempt, Hx of Violent Episodes Against Others, Hx Substance Abuse - Cancer History Hx Chemotherapy: No Hx Radiation Therapy: No Hx Palliative Cancer Treatment: No - Surgical History Surgery Procedure, Year, and Place: HERNIA REPAIR 2012. APPENDECTOMY 2000. LEFT ARM AV FISTULA/CAD - REMOVED. CABG 1 vessel, mitral & tricuspid valve repair March 02, 2014 AT [facility] CONDITIONAL 5 UPTO 3T. POWER PORT. Mitral and tricuspid valve repair Hx Anesthesia Reactions: No - Immunization History Date of Tetanus Vaccine: 2014 Date of Influenza Vaccine: Fall 2015 Infectious Disease History: Unable to Obtain/Confirm Infectious Disease History: Reports: Hx Hepatitis - Hep C, Hx of Known/ Suspected MRSA, History Other Infectious Disease - Hepatitis C Denies: Hx Clostridium Difficile, Hx Human Immunodeficiency Virus (HIV), Hx Shingles, Hx Tuberculosis, Hx Known/Suspected VRE, Hx Known/Suspected VRSA, Traveled Outside the [place] in Last 30 Days - Family History Known Family History: Positive: Cardiac Disease, Hypertension, Other - CVA - Social History Alcohol Use: None Alcohol Amount: former EtOH abuse Hx Substance Use: Yes Substance Use Type: Reports: Marijuana Substance Use Comment - Amount & Last Used: today Hx Tobacco Use: Yes Smoking Status (MU): Former Smoker Type: Cigarettes Amount Used/How Often: 1/2 ppd Length of Time of Smoking/Using Tobacco: 10 years Have You Smoked in the Last Year: No Review of Systems Negative: Fever, Chills Eyes: Negative ENT: Negative Positive: Chest Pain Musculoskeletal: Other - LE pain All Other Systems Reviewed And Are Negative: Yes Physical Exam - Summary Physical Exam Summary: VITAL SIGNS: Reviewed. GENERAL: Patient is a well-developed and nourished male who is lying comfortable in the stretcher. Patient is not in any acute respiratory distress. HEAD AND FACE: No signs of trauma. No ecchymosis, hematomas or skull depressions. No sinus tenderness. EYES: PERRLA, EOMI x 2, No injected conjunctiva, no nystagmus. EARS: Hearing grossly intact. Ear canals and tympanic membranes are within normal limits. MOUTH: Oropharynx within normal limits. NECK: Supple, trachea is midline, no adenopathy, no JVD, no carotid bruit, no c- spine tenderness, neck with full ROM. CHEST: Symmetric, no tenderness at palpation LUNGS: Clear to auscultation bilaterally. No wheezing or crackles. CVS: Regular rate and rhythm, S1 and S2 present, no murmurs or gallops appreciated. ABDOMEN: Soft, non-tender. No signs of distention. No rebound no guarding, and no masses palpated. Bowel sounds are normal. EXTREMITIES: FROM in all major joints, no edema, no cyanosis or clubbing. NEURO: Alert and oriented x 3. No acute neurological deficits. Speech is normal and follows commands. SKIN: Dry and warm Triage Information Reviewed: Yes Vital Signs On Initial Exam: Initial Vitals Temp Pulse Resp BP Pulse Ox 99.9 F 51 16 106/55 97 11/18/17 12:44 11/18/17 12:44 11/18/17 12:44 11/18/17 12:44 11/18/17 12:44 Vital Signs Reviewed: Yes Diagnostics - Vital Signs Vital Signs Temp Pulse Resp BP Pulse Ox 11/18/17 12:44 99.9 F 51 16 106/55 97 - Laboratory Lab Results: Lab Results 11/18/17 11/18/17 Range/Units 13:30 13:30 WBC 4.3 (3.5-10.8) 10^3/ul RBC 3.72 L (4.0-5.4) 10^6/ul Hgb 10.5 L (14.0-18.0) g/dl Hct 32 L (42-52) % MCV 87 (80-94) fL MCH 28 (27-31) pg MCHC 33 (31-36) g/dl RDW 18 H (10.5-15) % Plt Count 92 L (150-450) 10^3/ul MPV 8 (7.4-10.4) um3 Neut % (Auto) 66.2 (38-83) % Lymph % (Auto) 14.7 L (25-47) % Levy % (Auto) 17.3 H (1-9) % Eos % (Auto) 0.9 (0-6) % Baso % (Auto) 0.9 (0-2) % Absolute Neuts (auto) 2.8 (1.5-7.7) 10^3/ul Absolute Lymphs (auto) 0.6 L (1.0-4.8) 10^3/ul Absolute Monos (auto) 0.7 (0-0.8) 10^3/ul Absolute Eos (auto) 0 (0-0.6) 10^3/ul Absolute Basos (auto) 0 (0-0.2) 10^3/ul Absolute Nucleated RBC 0 10^3/ul Nucleated RBC % 0.1 Hem Pathologist Commnt Sodium 135 (133-145) mmol/L Potassium 4.7 (3.5-5.0) mmol/L Chloride 95 L (101-111) mmol/L Carbon Dioxide 32 (22-32) mmol/L Anion Gap 8 (2-11) mmol/L BUN 26 H (6-24) mg/dL Creatinine 6.84 H (0.67-1.17) mg/dL Est GFR ( Amer) 10.5 (>60) Est GFR (Non-Af Amer) 8.2 (>60) BUN/Creatinine Ratio 3.8 L (8-20) Glucose 75 (70-100) mg/dL Calcium 9.1 (8.6-10.3) mg/dL Total Bilirubin 0.80 (0.2-1.0) mg/dL AST 40 H (13-39) U/L ALT 29 (7-52) U/L Alkaline Phosphatase 75 (34-104) U/L Total Creatine Kinase 157 (10-223) U/L Troponin I 0.07 H* (<0.04) ng/mL Total Protein 8.2 (6.4-8.9) g/dL Albumin 4.1 (3.2-5.2) g/dL Globulin 4.1 H (2-4) g/dL Albumin/Globulin Ratio 1.0 (1-3) Result Diagrams: 11/18/17 13:30 11/18/17 13:30 Lab Statement: Any lab studies that have been ordered have been reviewed, and results considered in the medical decision making process. - Radiology Chest XR Xray Interpretation: Positive (See Comments) - IMPRESSION: Vascular congestive findings. Bibasal airspace disease. Suggest follow-up. Dr. Reyes has reviewed this radiology report. Radiology Interpretation Completed By: Radiologist - EKG 12:54 Cardiac Rate: NL EKG Rhythm: Sinus Rhythm - at 81 bpm EKG Interpretation: No ST elevation. EKG Comparison: No Significant Change - similar to prior EKG on 11/03/17. Chest Pain Course/Dx - Course Assessment/Plan: This pt is a 67 y/o male presenting to [facility] [place] [place] c/o chest pain 1 hour [employer]. Pt reports he had dialysis this morning. He states he then went home and took a nap. Pt notes his chest pain began at approximately noon today. He describes it as a burning pain. Pt additionally notes lower extremity pain. Test results without any significant abnormalities, except for slight anemia, chronic renal failure, troponin is 0.07 which is his usual. Chest XR shows bilateral consolidations, for which he was treated with Levaquin. I offered the pt admission but he declines. His vital signs are stable, saturating at 97, heart rate is 83, and blood pressure is 148/88. Therefore, he will be discharged home with a prescription for Levaquin. Pt is hemodynamically stable , alert and oriented x3. - Chest Pain Differential Diagnosis/HQI/PQRI: Acute NV, ACS, Angina, CHF, Chest Wall, GI Disease, Lower Respiratory Infection - Diagnoses Provider Diagnoses: Atypical chest pain, Pneumonia Discharge - Discharge Plan Condition: Stable Disposition: HOME Prescriptions: Levofloxacin TAB* [Levaquin TAB*] 750 mg PO DAILY #9 tab Patient Education Materials: Chest Pain (ED), Pneumonia (ED) Referrals: Marielena Vargas MD [Primary Care Provider] - 3 Days Additional Instructions: Please follow up with your primary care provider. RETURN TO THE ED FOR ANY WORSENING SYMPTOMS. The documentation as recorded by the Siva casey Angela accurately reflects the service I personally performed and the decisions made by me, Oskar Reyes MD.
== END 2017-11-18 15:48 | disposition home or self-care (01) ==
LOC: ED 12:42
DX: R07.89 Other chest pain (principal); J18.9 Pneumonia, unspecified organism; Z87.891 Personal history of nicotine dependence
CPT/HCPCS: 36415; 71045; 80053; 82550; 84484; 85025; 85060; 93005; 99282; A9270-GY

== ENCOUNTER 2017-11-19 01:51 | Inpatient (IN) | payer MEDICARE ==
[2017-11-19] MEDS ORDERED: Lidocaine 2% VISCOUS* 15 ML UDC PO ONE (03:39)
[2017-11-19] MEDS ORDERED: Al Hydrox/Mg Hydrox/Simet LIQ* 30 ML UDC PO ONE (03:39)
[2017-11-19] MEDS ORDERED: Morphine INJ* 4 MG/ML 1 ML CARPUJECT IV ONE ×3 (03:41→06:56)
[2017-11-19] MEDS ORDERED: Ondansetron INJ* 2 MG/ML VIAL IV ONE ×3 (03:41→08:25)
[2017-11-19 04:33] LABS: ABS Basophils 0 10^3/ul (0-0.2); ABS Eosinophils 0.1 10^3/ul (0-0.6); ABS Lymphocytes 0.7 10^3/ul (1.0-4.8); ABS Monocytes 0.7 10^3/ul (0-0.8); ABS Neutrophils 2.1 10^3/ul (1.5-7.7); ABS Nucleated RBC 0 10^3/ul; Eosinophil % 1.4 % (0-6); Hematocrit 32 % (42-52); Hemoglobin 10.4 g/dl (14.0-18.0); Lymphocyte % 19.8 % (25-47); Mean Corpuscular HGB Conc 32 g/dl (31-36); Mean Corpuscular Hemoglobin 28 pg (27-31); Mean Corpuscular Volume 88 fL (80-94); Mean Platelet Volume 9 um3 (7.4-10.4); Nucleated Red Blood Cells % 0.1; Platelet Count 99 10^3/ul (150-450); Red Blood Count 3.69 10^6/ul (4.0-5.4); Red Cell Distribution Width 18 % (10.5-15); White Blood Count 3.6 10^3/ul (3.5-10.8)
[2017-11-19 04:39] LABS: EGFR Non-African American 6.5 (>60); INR 1.37 (0.77-1.02)
[2017-11-19] MEDS ORDERED: Ondansetron INJ* 2 MG/ML VIAL ONE (05:35)
[2017-11-19] MEDS ORDERED: Lisinopril TAB* 10 MG PO ONE (06:36)
[2017-11-19] MEDS ORDERED: Carvedilol TAB* 25 MG PO ONE (06:37)
[2017-11-19] MEDS ORDERED: Isosorbide Mononitrate ER TAB* 60 MG PO ONE (06:37)
--- NOTE | 2017-11-19 07:23 | ED ---
Higinio Briones Thomas, scribed for Rafa Reddy MD on 11/19/17 at 0357 . HPI Chest Pain - HPI Summary HPI Summary: The patient is a 67 year old male presenting to the emergency department complaining of chest pain that began earlier today. The pain is severe. The patient additionally complains of pain throughout his entire body. He is on MWF dialysis. He is a frequent visitor to the emergency department. - History of Current Complaint Chief Complaint: EDChestPainROMI Time Seen by Provider: 11/19/17 03:36 Hx Obtained From: Patient Onset/Duration: Started Hours Ago - onset earlier today, Still Present Timing: Constant Current Severity: Severe Pain Intensity: 7 Pain Scale Used: 0-10 Numeric Chest Pain Radiates: No Aggravating Factor(s): Nothing Alleviating Factor(s): Nothing Associated Signs and Symptoms: Positive: Other: - Pain throughout entire body. Negative: Fever - Additional Pertinent History Primary Care Physician: YARIEL - Allergy/Home Medications Allergies/Adverse Reactions: Allergies Allergy/AdvReac Type Severity Reaction Status Date / Time MS Aspirin [Aspirin] Allergy Unknown See Comment Verified 11/03/17 01:42 MS Hydromorphone AdvReac Intermediate Unknown Verified 11/03/17 01:42 [From Dilaudid] Reaction Details PMH/Surg Hx/FS Hx/Imm Hx Endocrine/Hematology History: Reports: Hx Blood Transfusions, Hx Sickle Cell Disease - Was told had sickle cell at one point but denies, Hx Anemia Denies: Hx Anticoagulant Therapy, Hx Bone Marrow Disease, Hx Diabetes, Hx Thyroid Disease Cardiovascular History: Reports: Hx Angina, Hx Auto Implanted Cardiovert Defib, Hx Congestive Heart Failure, Hx Coronary Artery Disease, Hx Deep Vein Thrombosis , Hx Hypertension, Hx Pacemaker/ICD, Hx Peripheral Vascular Disease, Hx Syncope , Other Cardiovascular Problems/Disorders - cardiomegaly, mitral valve and tricuspid valve repair Denies: Hx Cardiomegaly, Hx Hypercholesterolemia, Hx Myocardial Infarction, Hx Rheumatic Fever, Hx Valvular Heart Disease Respiratory History: Reports: Hx Asthma, Hx Chronic Obstructive Pulmonary Disease (COPD), Hx Pleural Effusion, Hx Pneumonia, Other Respiratory Problems/ Disorders Denies: Hx Pulmonary Edema, Hx Pulmonary Embolism, Hx Sleep Apnea GI History: Reports: Hx Cirrhosis, Hx Gastroesophageal Reflux Disease, Hx Ulcer - peptic ulcer, Other GI Disorders - hep C Denies: Hx Crohn's Disease, Hx Hiatal Hernia, Hx Irritable Bowel, Hx Jaundice History: Reports: Hx Acute Renal Failure, Hx Chronic Renal Failure, Hx Dialysis, Hx Renal Disease, Other Problems/Disorders - end stage renal disease, on dialysis Denies: Hx Kidney Infection, Hx Kidney Stones Musculoskeletal History: Reports: Hx Arthritis, Hx Back Problems - chronic pain , Hx Orthopedic Injury Denies: Hx Rheumatoid Arthritis, Hx Bursitis, Hx Tendonitis, Other Musculoskeletal History Sensory History: Reports: Hx Glaucoma, Hx Vision Problem Denies: Hx Cataracts, Hx Contacts or Glasses, Hx Hearing Aid Opthamlomology History: Reports: Hx Glaucoma, Hx Vision Problem Denies: Hx Cataracts, Hx Contacts or Glasses Neurological History: Reports: Hx Headaches, Hx Migraine, Other Neuro Impairments/Disorders - depression Denies: Hx Dementia, Hx Seizures Psychiatric History: Reports: Hx Anxiety, Hx Depression Denies: Hx Eating Disorder, Hx Panic Disorder, Hx Suicide Attempt, Hx of Violent Episodes Against Others, Hx Substance Abuse - Cancer History Hx Chemotherapy: No Hx Radiation Therapy: No Hx Palliative Cancer Treatment: No - Surgical History Surgery Procedure, Year, and Place: HERNIA REPAIR 2012. APPENDECTOMY 2000. LEFT ARM AV FISTULA/CAD - REMOVED. CABG 1 vessel, mitral & tricuspid valve repair March 02, 2014 AT [facility] CONDITIONAL 5 UPTO 3T. POWER PORT. Mitral and tricuspid valve repair Hx Anesthesia Reactions: No - Immunization History Date of Tetanus Vaccine: 2014 Date of Influenza Vaccine: Fall 2015 Infectious Disease History: No Infectious Disease History: Reports: Hx Hepatitis - Hep C, Hx of Known/ Suspected MRSA, History Other Infectious Disease - Hepatitis C Denies: Hx Clostridium Difficile, Hx Human Immunodeficiency Virus (HIV), Hx Shingles, Hx Tuberculosis, Hx Known/Suspected VRE, Hx Known/Suspected VRSA, Traveled Outside the [place] in Last 30 Days - Family History Known Family History: Positive: Cardiac Disease, Hypertension, Other - CVA - Social History Alcohol Use: None Alcohol Amount: former EtOH abuse Hx Substance Use: Yes Substance Use Type: Reports: Marijuana Substance Use Comment - Amount & Last Used: today Hx Tobacco Use: Yes Smoking Status (MU): Former Smoker Type: Cigarettes Amount Used/How Often: 1/2 ppd Length of Time of Smoking/Using Tobacco: 10 years Have You Smoked in the Last Year: No Review of Systems Negative: Fever Positive: Chest Pain Positive: Other - Pain through entire body All Other Systems Reviewed And Are Negative: Yes Physical Exam - Summary Physical Exam Summary: General: well-appearing, moderate pain distress Skin: warm, color reflects adequate perfusion, dry Head: normal Eyes: EOMI, KINGS ENT: normal Neck: supple, nontender Respiratory: He has crackles in the lungs. Cardiovascular: Tachycardia. Regular rhythm. Abdomen: soft, nontender Bowel: present Musculoskeletal: normal, strength/ROM intact Neurological: normal, sensory/motor intact, A&O x3 Psychological: affect/mood appropriate Triage Information Reviewed: Yes Vital Signs On Initial Exam: Initial Vitals Temp Pulse Resp BP Pulse Ox 97.6 F 87 20 180/117 98 11/19/17 01:57 11/19/17 01:57 11/19/17 01:57 11/19/17 01:57 11/19/17 01:57 Vital Signs Reviewed: Yes Diagnostics - Vital Signs Vital Signs Temp Pulse Resp BP Pulse Ox 11/19/17 01:57 97.6 F 87 20 180/117 98 - Laboratory Lab Results: Lab Results 11/19/17 11/19/17 11/19/17 Range/Units 04:11 04:11 04:11 WBC 3.6 (3.5-10.8) 10^3/ul RBC 3.69 L (4.0-5.4) 10^6/ul Hgb 10.4 L (14.0-18.0) g/dl Hct 32 L (42-52) % MCV 88 (80-94) fL MCH 28 (27-31) pg MCHC 32 (31-36) g/dl RDW 18 H (10.5-15) % Plt Count 99 L (150-450) 10^3/ul MPV 9 (7.4-10.4) um3 Neut % (Auto) 58.6 (38-83) % Lymph % (Auto) 19.8 L (25-47) % Slope % (Auto) 19.1 H (1-9) % Eos % (Auto) 1.4 (0-6) % Baso % (Auto) 1.1 (0-2) % Absolute Neuts (auto) 2.1 (1.5-7.7) 10^3/ul Absolute Lymphs (auto) 0.7 L (1.0-4.8) 10^3/ul Absolute Monos (auto) 0.7 (0-0.8) 10^3/ul Absolute Eos (auto) 0.1 (0-0.6) 10^3/ul Absolute Basos (auto) 0 (0-0.2) 10^3/ul Absolute Nucleated RBC 0 10^3/ul Nucleated RBC % 0.1 INR (Anticoag Therapy) 1.37 H (0.77-1.02) APTT 39.9 H (26.0-36.3) seconds Sodium 134 (133-145) mmol/L Potassium TNP Chloride 93 L (101-111) mmol/L Carbon Dioxide 31 (22-32) mmol/L Anion Gap 10 (2-11) mmol/L BUN 35 H (6-24) mg/dL Creatinine 8.31 H (0.67-1.17) mg/dL Est GFR ( Amer) 8.4 (>60) Est GFR (Non-Af Amer) 6.5 (>60) BUN/Creatinine Ratio 4.2 L (8-20) Glucose 80 (70-100) mg/dL Lactic Acid (0.5-2.0) mmol/L Calcium 9.7 (8.6-10.3) mg/dL Total Bilirubin 0.70 (0.2-1.0) mg/dL AST TNP ALT 28 (7-52) U/L Alkaline Phosphatase 75 (34-104) U/L Troponin I 0.09 H* (<0.04) ng/mL Total Protein 8.5 (6.4-8.9) g/dL Albumin 4.4 (3.2-5.2) g/dL Globulin 4.1 H (2-4) g/dL Albumin/Globulin Ratio 1.1 (1-3) Lipase 12 (11.0-82.0) U/L TSH 6.69 H (0.34-5.60) mcIU/mL Influenza A (Rapid) (Negative) Influenza B (Rapid) (Negative) 11/19/17 11/19/17 11/19/17 Range/Units 04:11 04:34 07:00 WBC (3.5-10.8) 10^3/ul RBC (4.0-5.4) 10^6/ul Hgb (14.0-18.0) g/dl Hct (42-52) % MCV (80-94) fL MCH (27-31) pg MCHC (31-36) g/dl RDW (10.5-15) % Plt Count (150-450) 10^3/ul MPV (7.4-10.4) um3 Neut % (Auto) (38-83) % Lymph % (Auto) (25-47) % Slope % (Auto) (1-9) % Eos % (Auto) (0-6) % Baso % (Auto) (0-2) % Absolute Neuts (auto) (1.5-7.7) 10^3/ul Absolute Lymphs (auto) (1.0-4.8) 10^3/ul Absolute Monos (auto) (0-0.8) 10^3/ul Absolute Eos (auto) (0-0.6) 10^3/ul Absolute Basos (auto) (0-0.2) 10^3/ul Absolute Nucleated RBC 10^3/ul Nucleated RBC % INR (Anticoag Therapy) (0.77-1.02) APTT (26.0-36.3) seconds Sodium (133-145) mmol/L Potassium Pending Chloride (101-111) mmol/L Carbon Dioxide (22-32) mmol/L Anion Gap (2-11) mmol/L BUN (6-24) mg/dL Creatinine (0.67-1.17) mg/dL Est GFR ( Amer) (>60) Est GFR (Non-Af Amer) (>60) BUN/Creatinine Ratio (8-20) Glucose (70-100) mg/dL Lactic Acid 0.8 (0.5-2.0) mmol/L Calcium (8.6-10.3) mg/dL Total Bilirubin (0.2-1.0) mg/dL AST 38 ALT (7-52) U/L Alkaline Phosphatase (34-104) U/L Troponin I Pending (<0.04) ng/mL Total Protein (6.4-8.9) g/dL Albumin (3.2-5.2) g/dL Globulin (2-4) g/dL Albumin/Globulin Ratio (1-3) Lipase (11.0-82.0) U/L TSH (0.34-5.60) mcIU/mL Influenza A (Rapid) Negative (Negative) Influenza B (Rapid) Negative (Negative) Result Diagrams: 11/19/17 04:11 11/19/17 04:11 Lab Statement: Any lab studies that have been ordered have been reviewed, and results considered in the medical decision making process. - Radiology CXR Xray Interpretation: No Acute Changes - Mild vascular congestion, improved from yesterday's 11/18/17 chest x-ray. Radiology Interpretation Completed By: ED Physician - Additional Comments Diagnostic Additional Comments: ULTRASOUND UPPER EXTREMITY -- Ordered, See Jamba!. Chest Pain Course/Dx - Course Course Of Treatment: Medications reviewed. BP noted and patient urged primary care follow-up. Allergies noted. PAIN IMPROVED IN THE ED. US IMAGING OF RUE PENDING AND DISPOSITION PENDING AT SHIFT CHANGE - Diagnoses Provider Diagnoses: Uncontrolled hypertension, Chest pain, Swelling of right upper extremity Discharge - Discharge Plan Condition: Stable Disposition: OTHER Discharge Disposition Comment: . Referrals: Marielena Vargas MD [Primary Care Provider] - The documentation as recorded by the Higinio casey Thomas accurately reflects the service I personally performed and the decisions made by me, Rafa Reddy MD.
--- NOTE | 2017-11-19 08:03 | RAD ---
INDICATION: Chest pain COMPARISON: Chest x-ray November 18, 2017 TECHNIQUE: An AP portable view obtained at 0422 hours is submitted. FINDINGS: Bones/Soft Tissues: There are no acute bony findings. There are sternotomy. There is a dialysis catheter. There is a cardiac pacemaker/defibrillator Cardiomediastinal: Enlarged cardiac silhouette and prominent central pulmonary vessels, unchanged. Lungs: Bibasal infiltrates or atelectasis. Suspect mild component of interstitial congestion. Pleura: Small bilateral pleural effusions. Other: None IMPRESSION: BIBASAL INFILTRATES OR ATELECTASIS WITH SUSPECTED MILD PASSIVE CONGESTIVE FINDINGS AND SMALL BILATERAL PLEURAL EFFUSIONS
--- NOTE | 2017-11-19 08:31 | RAD ---
HISTORY: Right arm swelling, failed AV fistula COMPARISONS: March 13, 2017 TECHNIQUE: Multiple transverse and longitudinal ultrasound images were obtained of the right upper extremity from the level of the internal jugular vein inferiorly through to the infra-cubital veins using grayscale, color Doppler, and spectral Doppler imaging with and without compression and with augmentation. Comparison images were obtained of the contralateral internal jugular vein and subclavian vein. FINDINGS: VEINS: Again noted is nonocclusive thrombus of the right internal jugular vein and subclavian vein. The clot burden is decreased when compared to March 13, 2017. Again noted is occlusive thrombus within the right cephalic vein extending from the anterior middle fossa to the forearm. The axillary vein thrombus noted on the previous examination is not visualized on the current examination.. SOFT TISSUES: Unremarkable. OTHER FINDINGS: Again noted is an AV fistula/dialysis graft that appears at least partially thrombosed. IMPRESSION: 1. AGAIN NOTED IS NONOCCLUSIVE THROMBUS OF THE RIGHT INTERNAL JUGULAR VEIN AND PROXIMAL SUPERIOR VENA VEIN. THE OPERATIVE HAS DECREASED COMPARED TO MARCH 13, 2017. 2. THERE IS OCCLUSIVE THROMBUS WITHIN THE RIGHT CEPHALIC VEIN FROM THE ANTECUBITAL FOSSA TO THE FOREARM. 3. AGAIN NOTED IS A FAILED DIALYSIS GRAFT.
[2017-11-19] MEDS ORDERED: Metoclopramide IV* 5 MG/ML 2 ML VIAL IV SLOW PU ONE (10:32)
[2017-11-19] MEDS ORDERED: Albuterol HFA INHALER* 8 gm MDI INH PRN (11:58)
[2017-11-19] MEDS ORDERED: Nitroglycerin TAB 0.4 MG* 0.4 MG TAB SL PRN (11:58)
[2017-11-19] MEDS ORDERED: Sodium Polystyrene ORAL.SOL* 15 GM/60 ML BTL PO ONE (12:14)
[2017-11-19] MEDS: PANCRELIPASE 12000 UNIT PO SCH ×3 (12:32→22:46)
[2017-11-19] MEDS: Gabapentin CAP(*) 300 MG PO SCH ×2 (12:44→20:50)
[2017-11-19] MEDS: hydrALAZINE TAB* 25 MG PO SCH ×2 (12:45→20:50)
[2017-11-19] MEDS: oxyCODONE TAB* 5 MG TAB PO PRN ×2 (12:46→20:57)
[2017-11-19] MEDS: Heparin DRIP 25,000 UNITS(*) 25,000 UNITS/500 ML BAG IVPB SCH (12:49)
[2017-11-19] MEDS ORDERED: Simethicone TAB* 80 MG TAB.CHEW PO PRN (13:15)
[2017-11-19] MEDS ORDERED: amLODIPine TAB* 5 MG PO ONE (13:17)
[2017-11-19] MEDS: Warfarin TAB(*) 5 MG PO SCH (17:45)
[2017-11-19] MEDS: Carvedilol TAB* 25 MG PO SCH (17:45)
--- NOTE | 2017-11-19 20:15 | HP ---
ADMISSION HISTORY AND PHYSICAL: DATE OF ADMISSION: 11/19/17 ATTENDING PHYSICIAN: Dr. Deandre White.* (DICTATED BY LAILA BRADY NP) PRIMARY CARE PROVIDER: Marielena Vargas MD LABEL PINKER: Dr. Dalal. CHIEF COMPLAINT: Some chest and arm pain. HISTORY OF PRESENT ILLNESS: This is a 67-year-old male patient known to our service. He is a chronic renal patient. He is an end-stage renal disease. He has a very complex medical history. He is on hemodialysis Thursday, Thursday, and Fridays. He has chronic accelerated hypertension, coronary artery disease, peripheral vascular disease, history of internal jugular vein thrombosis, GERD, hepatitis C, anemia of chronic disease, chronic pain. Surgical history is mitral valve annuloplasty, coronary artery bypass graft, tricuspid valve repair , ICD placement and also failed AV fistula in the right upper extremity. The patient stated he was having some pain in the chest and the arm when he was in the emergency department. He was sent for venous Doppler, which showed a nonocclusive thrombus in the right internal jugular vein and proximal superior vena cava and also noted is an occlusive thrombus within the right cephalic vein from the antecubital fossa to the forearm and his failed dialysis graft. So for his new thrombus, the patient was admitted. The patient does not want to be admitted; however, he agreed to be admitted for his chest pain and swelling of the right upper extremity and the new DVT also in the right upper extremity. PAST MEDICAL HISTORY: As above. PAST SURGICAL HISTORY: As above. MEDICATIONS: At home include: 1. Albuterol 1 puff every 4 hours as needed. 2. Amlodipine 10 mg daily. 3. Parul-Dameon 1 tablet daily. 4. PhosLo 1334 mg t.i.d. with meals. 5. Carvedilol 25 mg b.i.d. 6. Cyclobenzaprine 5 mg every 8 hours as needed. 7. Colace b.i.d. 8. Folic acid 0.5 mg daily. 9. Furosemide 10 mg daily. 10. Hydralazine 25 mg 3 times a day. 11. Imdur 60 mg daily. 12. Lorazepam 0.5 to 1 mg every 6 hours as needed. 13. Amitiza 24 mcg b.i.d. 14. Meclizine 25 mg every 8 hours as needed. 15. Nitroglycerin 0.4 mg as needed. 16. Omeprazole 40 mg 2 times a day. 17. Zofran 4 mg as needed. 18. Pancrelipase 1 capsule 4 times a day. 19. Ranitidine 150 mg daily. 20. Simethicone 80 mg daily. 21. Simvastatin 5 mg in the morning. 22. Kayexalate 15 g a day. 23. Sucroferric oxyhydroxide 1000 mg p.o. 3 times a day. ALLERGIES: The patient has an allergy to ASPIRIN and HYDROMORPHONE. FAMILY HISTORY: Mother with heart disease and stroke. SOCIAL HISTORY: The patient is a former smoker, reports no EtOH abuse. Says he occasionally smokes marijuana. He does have chronic pain. I think there is some question whether the patient had further pain issues and was dependent on narcotics. However, this has not been discussed with him on this admission. REVIEW OF SYSTEMS: A 10-point review of systems is negative except as noted in the HPI. PHYSICAL EXAMINATION GENERAL: The patient is awake and alert, in no acute distress. VITAL SIGNS: Blood pressure 185/106, O2 sat is 99% on room air, respiratory rate 17, heart rate 78, temperature 97.9. HEENT: The patient is atraumatic, normocephalic. PERRLA with nonicteric sclerae. NECK: Supple, nontender. No JVD noted. He does appear to have increased vascular volume, some edema around the eyes and around the jaw line. No carotid bruit auscultated. LUNGS: Clear bilaterally at the apices to auscultation. He has some very fine crackles at the bases. CARDIOVASCULAR: S1, S2 are present. He does have a grade 2/6 murmur. Rate and rhythm are regular. ABDOMEN: Soft, nontender, and nondistended. He has hyperactive bowel sounds. : Deferred. MUSCULOSKELETAL: There is no clubbing and no cyanosis. He has a significant amount of edema to the right upper extremity. He has delayed cap refill on that side. This I think is his baseline secondary to his failed vascular graft. Reports pain is controlled at this time. No pain with palpation. He is ambulatory. NEUROLOGIC: Grossly intact with no focal deficits. PSYCHIATRIC: He is cooperative and appropriate. LABORATORY DATA: WBCs 3.6, RBCs 3.69, hemoglobin 10.4, hematocrit 32, MCV 88, MCH 28, platelets 99. Sodium 134, potassium 5.7, chloride 93, CO2 31, BUN 35, creatinine 8.31, GFR is 8.4, glucose 80. Liver function within normal. Troponins are chronically elevated at 0.09 and 0.09. His TSH is 6.69 as well. IMAGING: His ultrasound of the right upper extremity as stated above. IMPRESSION: The patient has been admitted for his new DVT, occlusive thrombus. He has been heparinized. He received bolus, he is on 18 mcg/kg/hour. He will have Coumadin bridging. The patient states his understanding. He will go for dialysis tomorrow. He has also had Kayexalate 30 g for his elevated potassium. He did have his dialysis yesterday and I suppose this potassium will go down after he is dialyzed tomorrow. We will continue to monitor his laboratories. His PT/INR as soon as he is therapeutic, he will be discharged to home. This plan has been discussed with Dr. White, who is in agreement with the plan. Of significant note, the patient is a full code and has not told me, who his healthcare proxy is. According to his former notes, I cannot find a medical proxy on his last admission. This will be discussed further with him later in the day. LAILA BRADY, [place] [id number]/[facility] #: [id number] J[facility] MEDICAL CENTERJosette
[2017-11-20] MEDS ORDERED: Pancrelipase CAP* 5,000 UNITS CAP PO SCH
[2017-11-20] MEDS: Pancrelipase CAP* 5,000 UNITS CAP PO SCH ×5 (00:28→21:00)
[2017-11-20 05:57] LABS: ABS Basophils 0 10^3/ul (0-0.2); ABS Eosinophils 0.1 10^3/ul (0-0.6); ABS Lymphocytes 0.8 10^3/ul (1.0-4.8); ABS Monocytes 0.6 10^3/ul (0-0.8); ABS Neutrophils 2.2 10^3/ul (1.5-7.7); ABS Nucleated RBC 0 10^3/ul; Eosinophil % 2.5 % (0-6); Hematocrit 29 % (42-52); Hemoglobin 9.6 g/dl (14.0-18.0); Lymphocyte % 22.2 % (25-47); Mean Corpuscular HGB Conc 34 g/dl (31-36); Mean Corpuscular Hemoglobin 29 pg (27-31); Mean Corpuscular Volume 88 fL (80-94); Mean Platelet Volume 8 um3 (7.4-10.4); Nucleated Red Blood Cells % 0.1; Platelet Count 88 10^3/ul (150-450); Red Blood Count 3.27 10^6/ul (4.0-5.4); Red Cell Distribution Width 18 % (10.5-15); White Blood Count 3.7 10^3/ul (3.5-10.8)
[2017-11-20 06:07] LABS: EGFR Non-African American 5.5 (>60)
[2017-11-20] MEDS: Gabapentin CAP(*) 300 MG PO SCH ×3 (07:40→21:00)
[2017-11-20] MEDS: oxyCODONE TAB* 5 MG TAB PO PRN ×2 (07:40→15:54)
[2017-11-20] MEDS: Folic Acid TAB* 1 MG PO SCH (07:41)
[2017-11-20] MEDS: hydrALAZINE TAB* 25 MG PO SCH ×3 (07:41→21:00)
[2017-11-20] MEDS: Famotidine TAB* 20 MG PO SCH (07:41)
[2017-11-20] MEDS: Carvedilol TAB* 25 MG PO SCH ×2 (07:41→17:18)
[2017-11-20] MEDS: Ascorbic Acid TAB* 500 MG PO SCH (07:41)
[2017-11-20] MEDS: Citalopram TAB* 20 MG PO SCH (07:41)
[2017-11-20] MEDS: Isosorbide Mononitrate ER TAB* 60 MG PO SCH (07:42)
[2017-11-20] MEDS: CMC:Simvastatin TAB(NF) 10 MG TAB PO SCH (07:44)
[2017-11-20] MEDS: Cinacalcet TAB* 30 MG PO SCH (07:44)
[2017-11-20] MEDS ORDERED: Lisinopril TAB* 10 MG PO SCH (09:00)
[2017-11-20] MEDS ORDERED: Sodium Polystyrene ORAL.SOL* 15 GM/60 ML BTL PO SCH (09:00)
[2017-11-20] MEDS: Heparin DRIP 25,000 UNITS(*) 25,000 UNITS/500 ML BAG IVPB SCH (09:38)
[2017-11-20] MEDS: Vitamin B Complex TAB PO SCH (09:39)
[2017-11-20] MEDS: Epoetin Alfa* 4,000 UNITS/ML VIAL IV ONE ×2 (15:05→15:59)
--- NOTE | 2017-11-20 16:33 | PN ---
Subjective Date of Service: 11/20/17 Interval History: C/O pain R arm from thumb to shoulder. No SOB. He refuses to take sodium polystyrene. Objective Active Medications: Albuterol (Ventolin Hfa Inhaler*) 1 puff INH Q4H PRN PRN Reason: SHORTNESS OF BREATH Ascorbic Acid (Vitamin C Tab*) 500 mg PO DAILY [facility] Last Admin: 11/20/17 07:41 Dose: 500 mg Carvedilol (Coreg Tab*) 25 mg PO BID WITH MEALS [facility] Last Admin: 11/20/17 07:41 Dose: 25 mg Cinacalcet (Sensipar Tab*) 30 mg PO DAILY [facility] Last Admin: 11/20/17 07:44 Dose: 30 mg Citalopram Hydrobromide (Celexa Tab*) 20 mg PO DAILY [facility] Last Admin: 11/20/17 07:41 Dose: 20 mg Famotidine (Pepcid Tab*) 20 mg PO DAILY [facility] PRN Reason: Protocol Last Admin: 11/20/17 07:41 Dose: 20 mg Folic Acid (Folvite Tab*) 1 mg PO DAILY [facility] Last Admin: 11/20/17 07:41 Dose: 1 mg Gabapentin (Neurontin Cap(*)) 600 mg PO TID [facility] Last Admin: 11/20/17 15:06 Dose: 600 mg Heparin Sodium (Porcine) (Heparin Vial(*)) 0 units IV .PER PROTOCOL [facility] PRN Reason: Protocol Hydralazine HCl (Apresoline Tab*) 25 mg PO TID [facility] Last Admin: 11/20/17 15:06 Dose: 25 mg Heparin Sodium/Dextrose (Heparin Drip 25,000 Units(*)) 25,000 units in 500 mls @ 0 mls/hr IVPB .PER RATE [facility]; Per Protocol PRN Reason: Protocol Last Admin: 11/20/17 09:38 Dose: 21 mls/hr Isosorbide Mononitrate (Imdur Er Tab*) 60 mg PO DAILY [facility] Last Admin: 11/20/17 07:42 Dose: 60 mg Lisinopril (Prinivil Tab*) 10 mg PO BID [facility] Nitroglycerin (Nitroglycerin Tab 0.4 Mg*) 0.4 mg SL Q5M PRN PRN Reason: PAIN - CHEST Ondansetron HCl (Zofran Tab*) 4 mg PO Q6HR PRN PRN Reason: NAUSEA Oxycodone HCl (Roxycodone Tab*) 15 mg PO Q6H PRN PRN Reason: PAIN Last Admin: 11/20/17 15:54 Dose: 15 mg Pancrelipase (Zenpep Delayed Cap*) 10,000 units PO QID [facility] Last Admin: 11/20/17 14:11 Dose: Not Given Simethicone (Mylicon Tab*) 80 mg PO Q6H PRN PRN Reason: DYSPEPSIA Simvastatin (Zocor(Nf)) 10 mg PO DAILY [facility] Last Admin: 11/20/17 07:44 Dose: 10 mg Vitamin B Complex/Vitamin E (Complex B-100*) 1 tab PO DAILY [facility] Last Admin: 11/20/17 09:39 Dose: 1 tab Warfarin Sodium (Coumadin Tab(*)) 5 mg PO DAILY@1700 [facility] PRN Reason: Protocol Last Admin: 11/19/17 17:45 Dose: 5 mg Vital Signs - 8 hr 11/20/17 11/20/17 11/20/17 09:41 09:42 15:06 Respiratory 18 18 18 Rate 11/20/17 15:54 Respiratory 18 Rate Oxygen Devices in Use Now: None Appearance: Alert, in a chair. In fair spirits. Looks comfortable. Eyes: No Scleral Icterus Neck: NL Appearance and Movements; NL JVP, No Thyroid Enlargement, Masses Respiratory: Symmetrical Chest Expansion and Respiratory Effort, Clear to Auscultation, Clear to Percussion Result Diagrams: 11/20/17 05:41 11/20/17 05:41 Additional Lab and Data: Lab Results 11/19/17 11/19/17 11/19/17 Range/Units 04:11 04:11 04:11 WBC 3.6 (3.5-10.8) 10^3/ul RBC 3.69 L (4.0-5.4) 10^6/ul Hgb 10.4 L (14.0-18.0) g/dl Hct 32 L (42-52) % MCV 88 (80-94) fL MCH 28 (27-31) pg MCHC 32 (31-36) g/dl RDW 18 H (10.5-15) % Plt Count 99 L (150-450) 10^3/ul MPV 9 (7.4-10.4) um3 Neut % (Auto) 58.6 (38-83) % Lymph % (Auto) 19.8 L (25-47) % Sibley % (Auto) 19.1 H (1-9) % Eos % (Auto) 1.4 (0-6) % Baso % (Auto) 1.1 (0-2) % Absolute Neuts (auto) 2.1 (1.5-7.7) 10^3/ul Absolute Lymphs (auto) 0.7 L (1.0-4.8) 10^3/ul Absolute Monos (auto) 0.7 (0-0.8) 10^3/ul Absolute Eos (auto) 0.1 (0-0.6) 10^3/ul Absolute Basos (auto) 0 (0-0.2) 10^3/ul Absolute Nucleated RBC 0 10^3/ul Nucleated RBC % 0.1 INR (Anticoag Therapy) 1.37 H (0.77-1.02) APTT 39.9 H (26.0-36.3) seconds Sodium 134 (133-145) mmol/L Potassium TNP Chloride 93 L (101-111) mmol/L Carbon Dioxide 31 (22-32) mmol/L Anion Gap 10 (2-11) mmol/L BUN 35 H (6-24) mg/dL Creatinine 8.31 H (0.67-1.17) mg/dL Est GFR ( Amer) 8.4 (>60) Est GFR (Non-Af Amer) 6.5 (>60) BUN/Creatinine Ratio 4.2 L (8-20) Glucose 80 (70-100) mg/dL Lactic Acid (0.5-2.0) mmol/L Calcium 9.7 (8.6-10.3) mg/dL Total Bilirubin 0.70 (0.2-1.0) mg/dL AST TNP ALT 28 (7-52) U/L Alkaline Phosphatase 75 (34-104) U/L Troponin I 0.09 H* (<0.04) ng/mL Total Protein 8.5 (6.4-8.9) g/dL Albumin 4.4 (3.2-5.2) g/dL Globulin 4.1 H (2-4) g/dL Albumin/Globulin Ratio 1.1 (1-3) Lipase 12 (11.0-82.0) U/L TSH 6.69 H (0.34-5.60) mcIU/mL Influenza A (Rapid) (Negative) Influenza B (Rapid) (Negative) 11/19/17 11/19/17 11/19/17 Range/Units 04:11 04:34 07:00 WBC (3.5-10.8) 10^3/ul RBC (4.0-5.4) 10^6/ul Hgb (14.0-18.0) g/dl Hct (42-52) % MCV (80-94) fL MCH (27-31) pg MCHC (31-36) g/dl RDW (10.5-15) % Plt Count (150-450) 10^3/ul MPV (7.4-10.4) um3 Neut % (Auto) (38-83) % Lymph % (Auto) (25-47) % Sibley % (Auto) (1-9) % Eos % (Auto) (0-6) % Baso % (Auto) (0-2) % Absolute Neuts (auto) (1.5-7.7) 10^3/ul Absolute Lymphs (auto) (1.0-4.8) 10^3/ul Absolute Monos (auto) (0-0.8) 10^3/ul Absolute Eos (auto) (0-0.6) 10^3/ul Absolute Basos (auto) (0-0.2) 10^3/ul Absolute Nucleated RBC 10^3/ul Nucleated RBC % INR (Anticoag Therapy) (0.77-1.02) APTT (26.0-36.3) seconds Sodium (133-145) mmol/L Potassium Pending Chloride (101-111) mmol/L Carbon Dioxide (22-32) mmol/L Anion Gap (2-11) mmol/L BUN (6-24) mg/dL Creatinine (0.67-1.17) mg/dL Est GFR ( Amer) (>60) Est GFR (Non-Af Amer) (>60) BUN/Creatinine Ratio (8-20) Glucose (70-100) mg/dL Lactic Acid 0.8 (0.5-2.0) mmol/L Calcium (8.6-10.3) mg/dL Total Bilirubin (0.2-1.0) mg/dL AST 38 ALT (7-52) U/L Alkaline Phosphatase (34-104) U/L Troponin I Pending (<0.04) ng/mL Total Protein (6.4-8.9) g/dL Albumin (3.2-5.2) g/dL Globulin (2-4) g/dL Albumin/Globulin Ratio (1-3) Lipase (11.0-82.0) U/L TSH (0.34-5.60) mcIU/mL Influenza A (Rapid) Negative (Negative) Influenza B (Rapid) Negative (Negative) Assess/Plan/Problems-Billing Assessment: - Patient Problems (1) Hypertension Current Visit: No Status: Chronic Priority: High Code(s): I10 - ESSENTIAL (PRIMARY) HYPERTENSION SNOMED Code(s): 03844212 Comment: Lisinopril increased to 10 mg bid on 11/20/17. (2) DVT (deep venous thrombosis) Current Visit: Yes Status: Acute Code(s): I82.409 - ACUTE EMBOLISM AND THOMBOS UNSP DEEP VN UNSP LOWER EXTREMITY SNOMED Code(s): 717585586 Comment: R arm cephalic vein. Heparin bridge to warfarin. (3) Aortic valve calcification Current Visit: No Status: Acute Code(s): I35.9 - NONRHEUMATIC AORTIC VALVE DISORDER, UNSPECIFIED SNOMED Code(s): 252033908 Comment: suspect the lesion may be related to dystrophic calcification in pt with ESRD and MRSA bacteremia in [address]. [address] Messer who reviewed prior Echo - it is chronic (4) ESRD (end stage renal disease) on dialysis Current Visit: No Status: Chronic Code(s): N18.6 - END STAGE RENAL DISEASE; Z99.2 - DEPENDENCE ON RENAL DIALYSIS SNOMED Code(s): 453353027 Comment: Continue MWF dialysis. Pt refuses to take kayexalate at home or in the hospital. Med d/c'd. Likely with hospital renal diet will not need it in the hospital but I told him he should take it at home. (5) Hepatitis C Current Visit: No Status: Chronic Priority: Medium Comment: High hep C RNA 12/08/2012.
[2017-11-20] MEDS: Warfarin TAB(*) 5 MG PO SCH (17:18)
[2017-11-20] MEDS: Lisinopril TAB* 10 MG PO SCH (21:00)
[2017-11-21] MEDS: oxyCODONE TAB* 5 MG TAB PO PRN ×3 (00:14→17:18)
[2017-11-21] MEDS: Pancrelipase CAP* 5,000 UNITS CAP PO SCH ×4 (09:17→22:26)
[2017-11-21] MEDS: Folic Acid TAB* 1 MG PO SCH (09:17)
[2017-11-21] MEDS: Cinacalcet TAB* 30 MG PO SCH (09:17)
[2017-11-21] MEDS: Vitamin B Complex TAB PO SCH (09:17)
[2017-11-21] MEDS: Gabapentin CAP(*) 300 MG PO SCH ×3 (09:18→22:25)
[2017-11-21] MEDS: hydrALAZINE TAB* 25 MG PO SCH ×3 (09:18→22:26)
[2017-11-21] MEDS: Isosorbide Mononitrate ER TAB* 60 MG PO SCH (09:18)
[2017-11-21] MEDS: Citalopram TAB* 20 MG PO SCH (09:18)
[2017-11-21] MEDS: Famotidine TAB* 20 MG PO SCH (09:19)
[2017-11-21] MEDS: Carvedilol TAB* 25 MG PO SCH ×2 (09:19→17:18)
[2017-11-21] MEDS: CMC:Simvastatin TAB(NF) 10 MG TAB PO SCH (09:19)
[2017-11-21] MEDS: Ascorbic Acid TAB* 500 MG PO SCH (09:19)
[2017-11-21] MEDS: Lisinopril TAB* 10 MG PO SCH ×2 (09:19→22:26)
[2017-11-21 09:20] LABS: ABS Basophils 0 10^3/ul (0-0.2); ABS Eosinophils 0.1 10^3/ul (0-0.6); ABS Lymphocytes 0.7 10^3/ul (1.0-4.8); ABS Monocytes 0.6 10^3/ul (0-0.8); ABS Neutrophils 1.2 10^3/ul (1.5-7.7); ABS Nucleated RBC 0 10^3/ul; Eosinophil % 2.9 % (0-6); Hematocrit 31 % (42-52); Hemoglobin 10.1 g/dl (14.0-18.0); Lymphocyte % 27.3 % (25-47); Mean Corpuscular HGB Conc 32 g/dl (31-36); Mean Corpuscular Hemoglobin 28 pg (27-31); Mean Corpuscular Volume 88 fL (80-94); Mean Platelet Volume 9 um3 (7.4-10.4); Nucleated Red Blood Cells % 0.2; Platelet Count 109 10^3/ul (150-450); Red Blood Count 3.56 10^6/ul (4.0-5.4); Red Cell Distribution Width 18 % (10.5-15); White Blood Count 2.6 10^3/ul (3.5-10.8)
[2017-11-21 09:34] LABS: EGFR Non-African American 7.4 (>60)
[2017-11-21 09:43] LABS: INR 1.35 (0.77-1.02)
[2017-11-21] MEDS: Heparin VIAL(*) 5000 UNITS/ML VIAL (FIVE THOUSAND) IV SCH (09:59)
[2017-11-21] MEDS: Ondansetron TAB* 4 MG PO PRN (11:34)
[2017-11-21] MEDS: Heparin DRIP 25,000 UNITS(*) 25,000 UNITS/500 ML BAG IVPB SCH (11:35)
[2017-11-21] MEDS ORDERED: Warfarin TAB(*) 7.5 MG PO SCH (17:00)
--- NOTE | 2017-11-21 17:19 | PN ---
Subjective Date of Service: 11/21/17 Interval History: R arm and hand feel a little better today. No new c/o. Objective Active Medications: Albuterol (Ventolin Hfa Inhaler*) 1 puff INH Q4H PRN PRN Reason: SHORTNESS OF BREATH Ascorbic Acid (Vitamin C Tab*) 500 mg PO DAILY [facility] Last Admin: 11/21/17 09:19 Dose: 500 mg Carvedilol (Coreg Tab*) 25 mg PO BID WITH MEALS [facility] Last Admin: 11/21/17 09:19 Dose: 25 mg Cinacalcet (Sensipar Tab*) 30 mg PO DAILY [facility] Last Admin: 11/21/17 09:17 Dose: 30 mg Citalopram Hydrobromide (Celexa Tab*) 20 mg PO DAILY [facility] Last Admin: 11/21/17 09:18 Dose: 20 mg Famotidine (Pepcid Tab*) 20 mg PO DAILY [facility] PRN Reason: Protocol Last Admin: 11/21/17 09:19 Dose: 20 mg Folic Acid (Folvite Tab*) 1 mg PO DAILY [facility] Last Admin: 11/21/17 09:17 Dose: 1 mg Gabapentin (Neurontin Cap(*)) 600 mg PO TID [facility] Last Admin: 11/21/17 14:12 Dose: 600 mg Heparin Sodium (Porcine) (Heparin Vial(*)) 0 units IV .PER PROTOCOL [facility] PRN Reason: Protocol Last Admin: 11/21/17 09:59 Dose: 3,000 units Hydralazine HCl (Apresoline Tab*) 25 mg PO TID [facility] Last Admin: 11/21/17 14:11 Dose: 25 mg Heparin Sodium/Dextrose (Heparin Drip 25,000 Units(*)) 25,000 units in 500 mls @ 0 mls/hr IVPB .PER RATE [facility]; Per Protocol PRN Reason: Protocol Last Admin: 11/21/17 11:35 Dose: 19 mls/hr Isosorbide Mononitrate (Imdur Er Tab*) 60 mg PO DAILY [facility] Last Admin: 11/21/17 09:18 Dose: 60 mg Lisinopril (Prinivil Tab*) 10 mg PO BID [facility] Last Admin: 11/21/17 09:19 Dose: 10 mg Nitroglycerin (Nitroglycerin Tab 0.4 Mg*) 0.4 mg SL Q5M PRN PRN Reason: PAIN - CHEST Ondansetron HCl (Zofran Tab*) 4 mg PO Q6HR PRN PRN Reason: NAUSEA Last Admin: 11/21/17 11:34 Dose: 4 mg Oxycodone HCl (Roxycodone Tab*) 15 mg PO Q6H PRN PRN Reason: PAIN Last Admin: 11/21/17 07:20 Dose: 15 mg Pancrelipase (Zenpep Delayed Cap*) 10,000 units PO QID [facility] Last Admin: 11/21/17 14:12 Dose: 10,000 units Simethicone (Mylicon Tab*) 80 mg PO Q6H PRN PRN Reason: DYSPEPSIA Simvastatin (Zocor(Nf)) 10 mg PO DAILY [facility] Last Admin: 11/21/17 09:19 Dose: 10 mg Vitamin B Complex/Vitamin E (Complex B-100*) 1 tab PO DAILY [facility] Last Admin: 11/21/17 09:17 Dose: 1 tab Warfarin Sodium (Coumadin Tab(*)) 7.5 mg PO DAILY@1700 [facility] PRN Reason: Protocol Vital Signs - 8 hr 11/21/17 11/21/17 11/21/17 09:18 09:20 11:37 Temperature Pulse Rate Respiratory 16 16 16 Rate Blood Pressure (mmHg) O2 Sat by Pulse Oximetry 11/21/17 11/21/17 11/21/17 11:55 14:12 15:22 Temperature 97.7 F 98.2 F Pulse Rate 64 65 Respiratory 16 16 17 Rate Blood Pressure 150/77 190/79 (mmHg) O2 Sat by Pulse 99 98 Oximetry 11/21/17 16:42 Temperature Pulse Rate Respiratory 18 Rate Blood Pressure (mmHg) O2 Sat by Pulse Oximetry Oxygen Devices in Use Now: None Appearance: Alert, partly up in bed. In good spirits. Looks comfortable. Eyes: No Scleral Icterus Extremities: No Edema, No Clubbing, Cyanosis, - Skin: No Rash or Ulcers, No Nodules or Sclerosis, - Neurological: Alert and Oriented x 3, NL Sensation Result Diagrams: 11/21/17 09:03 11/21/17 09:03 Additional Lab and Data: Lab Results 11/19/17 11/19/17 11/19/17 Range/Units 04:11 04:11 04:11 WBC 3.6 (3.5-10.8) 10^3/ul RBC 3.69 L (4.0-5.4) 10^6/ul Hgb 10.4 L (14.0-18.0) g/dl Hct 32 L (42-52) % MCV 88 (80-94) fL MCH 28 (27-31) pg MCHC 32 (31-36) g/dl RDW 18 H (10.5-15) % Plt Count 99 L (150-450) 10^3/ul MPV 9 (7.4-10.4) um3 Neut % (Auto) 58.6 (38-83) % Lymph % (Auto) 19.8 L (25-47) % [place] % (Auto) 19.1 H (1-9) % Eos % (Auto) 1.4 (0-6) % Baso % (Auto) 1.1 (0-2) % Absolute Neuts (auto) 2.1 (1.5-7.7) 10^3/ul Absolute Lymphs (auto) 0.7 L (1.0-4.8) 10^3/ul Absolute Monos (auto) 0.7 (0-0.8) 10^3/ul Absolute Eos (auto) 0.1 (0-0.6) 10^3/ul Absolute Basos (auto) 0 (0-0.2) 10^3/ul Absolute Nucleated RBC 0 10^3/ul Nucleated RBC % 0.1 INR (Anticoag Therapy) 1.37 H (0.77-1.02) APTT 39.9 H (26.0-36.3) seconds Sodium 134 (133-145) mmol/L Potassium TNP Chloride 93 L (101-111) mmol/L Carbon Dioxide 31 (22-32) mmol/L Anion Gap 10 (2-11) mmol/L BUN 35 H (6-24) mg/dL Creatinine 8.31 H (0.67-1.17) mg/dL Est GFR ( Amer) 8.4 (>60) Est GFR (Non-Af Amer) 6.5 (>60) BUN/Creatinine Ratio 4.2 L (8-20) Glucose 80 (70-100) mg/dL Lactic Acid (0.5-2.0) mmol/L Calcium 9.7 (8.6-10.3) mg/dL Total Bilirubin 0.70 (0.2-1.0) mg/dL AST TNP ALT 28 (7-52) U/L Alkaline Phosphatase 75 (34-104) U/L Troponin I 0.09 H* (<0.04) ng/mL Total Protein 8.5 (6.4-8.9) g/dL Albumin 4.4 (3.2-5.2) g/dL Globulin 4.1 H (2-4) g/dL Albumin/Globulin Ratio 1.1 (1-3) Lipase 12 (11.0-82.0) U/L TSH 6.69 H (0.34-5.60) mcIU/mL Influenza A (Rapid) (Negative) Influenza B (Rapid) (Negative) 11/19/17 11/19/17 11/19/17 Range/Units 04:11 04:34 07:00 WBC (3.5-10.8) 10^3/ul RBC (4.0-5.4) 10^6/ul Hgb (14.0-18.0) g/dl Hct (42-52) % MCV (80-94) fL MCH (27-31) pg MCHC (31-36) g/dl RDW (10.5-15) % Plt Count (150-450) 10^3/ul MPV (7.4-10.4) um3 Neut % (Auto) (38-83) % Lymph % (Auto) (25-47) % [place] % (Auto) (1-9) % Eos % (Auto) (0-6) % Baso % (Auto) (0-2) % Absolute Neuts (auto) (1.5-7.7) 10^3/ul Absolute Lymphs (auto) (1.0-4.8) 10^3/ul Absolute Monos (auto) (0-0.8) 10^3/ul Absolute Eos (auto) (0-0.6) 10^3/ul Absolute Basos (auto) (0-0.2) 10^3/ul Absolute Nucleated RBC 10^3/ul Nucleated RBC % INR (Anticoag Therapy) (0.77-1.02) APTT (26.0-36.3) seconds Sodium (133-145) mmol/L Potassium Pending Chloride (101-111) mmol/L Carbon Dioxide (22-32) mmol/L Anion Gap (2-11) mmol/L BUN (6-24) mg/dL Creatinine (0.67-1.17) mg/dL Est GFR ( Amer) (>60) Est GFR (Non-Af Amer) (>60) BUN/Creatinine Ratio (8-20) Glucose (70-100) mg/dL Lactic Acid 0.8 (0.5-2.0) mmol/L Calcium (8.6-10.3) mg/dL Total Bilirubin (0.2-1.0) mg/dL AST 38 ALT (7-52) U/L Alkaline Phosphatase (34-104) U/L Troponin I Pending (<0.04) ng/mL Total Protein (6.4-8.9) g/dL Albumin (3.2-5.2) g/dL Globulin (2-4) g/dL Albumin/Globulin Ratio (1-3) Lipase (11.0-82.0) U/L TSH (0.34-5.60) mcIU/mL Influenza A (Rapid) Negative (Negative) Influenza B (Rapid) Negative (Negative) Assess/Plan/Problems-Billing Assessment: - Patient Problems (1) Hypertension Current Visit: No Status: Chronic Priority: High Code(s): I10 - ESSENTIAL (PRIMARY) HYPERTENSION SNOMED Code(s): 31230045 Comment: Lisinopril increased to 10 mg bid on 11/20/17. Start diltiazem CD 180 mg 11/22. (2) DVT (deep venous thrombosis) Current Visit: Yes Status: Acute Code(s): I82.409 - ACUTE EMBOLISM AND THOMBOS UNSP DEEP VN UNSP LOWER EXTREMITY SNOMED Code(s): 732210388 Comment: R arm cephalic vein. Heparin bridge to warfarin. Warfarin increased to 7.5 mg 11/21. (3) ESRD (end stage renal disease) on dialysis Current Visit: No Status: Chronic Code(s): N18.6 - END STAGE RENAL DISEASE; Z99.2 - DEPENDENCE ON RENAL DIALYSIS SNOMED Code(s): 948753209 Comment: Continue MWF dialysis. Pt refuses to take kayexalate at home or in the hospital. Med d/c'd. Likely with hospital renal diet will not need it in the hospital but I told him he should take it at home. (4) Hepatitis C Current Visit: No Status: Chronic Priority: Medium Comment: High hep C RNA 12/08/2012.
[2017-11-22] MEDS: oxyCODONE TAB* 5 MG TAB PO PRN ×3 (02:36→17:42)
[2017-11-22 04:59] LABS: INR 1.66 (0.77-1.02)
[2017-11-22] MEDS: Heparin VIAL(*) 5000 UNITS/ML VIAL (FIVE THOUSAND) IV SCH (05:22)
[2017-11-22] MEDS ORDERED: Diltiazem CD CAP* 180 MG PO SCH (09:00)
[2017-11-22] MEDS: Isosorbide Mononitrate ER TAB* 60 MG PO SCH (09:14)
[2017-11-22] MEDS: Vitamin B Complex TAB PO SCH (09:14)
[2017-11-22] MEDS: Gabapentin CAP(*) 300 MG PO SCH ×3 (09:14→20:13)
[2017-11-22] MEDS: Cinacalcet TAB* 30 MG PO SCH (09:14)
[2017-11-22] MEDS: Pancrelipase CAP* 5,000 UNITS CAP PO SCH ×4 (09:14→20:13)
[2017-11-22] MEDS: Lisinopril TAB* 10 MG PO SCH ×2 (09:15→20:13)
[2017-11-22] MEDS: Carvedilol TAB* 25 MG PO SCH ×2 (09:15→17:42)
[2017-11-22] MEDS: CMC:Simvastatin TAB(NF) 10 MG TAB PO SCH (09:15)
[2017-11-22] MEDS: Citalopram TAB* 20 MG PO SCH (09:15)
[2017-11-22] MEDS: hydrALAZINE TAB* 25 MG PO SCH ×3 (09:15→20:13)
[2017-11-22] MEDS: Folic Acid TAB* 1 MG PO SCH (09:15)
[2017-11-22] MEDS: Ascorbic Acid TAB* 500 MG PO SCH (09:15)
[2017-11-22] MEDS: Famotidine TAB* 20 MG PO SCH (09:15)
--- NOTE | 2017-11-22 12:59 | PN ---
Subjective Date of Service: 11/22/17 Interval History: No new c/o. No chest pain, cough, SOB. Chronic intermittent pain both arms. Objective Active Medications: Albuterol (Ventolin Hfa Inhaler*) 1 puff INH Q4H PRN PRN Reason: SHORTNESS OF BREATH Ascorbic Acid (Vitamin C Tab*) 500 mg PO DAILY [facility] Last Admin: 11/22/17 09:15 Dose: 500 mg Carvedilol (Coreg Tab*) 25 mg PO BID WITH MEALS [facility] Last Admin: 11/22/17 09:15 Dose: 25 mg Cinacalcet (Sensipar Tab*) 30 mg PO DAILY [facility] Last Admin: 11/22/17 09:14 Dose: 30 mg Citalopram Hydrobromide (Celexa Tab*) 20 mg PO DAILY [facility] Last Admin: 11/22/17 09:15 Dose: 20 mg Diltiazem HCl (Cardizem Cd Cap*) 180 mg PO DAILY [facility] Last Admin: 11/22/17 09:15 Dose: 180 mg Famotidine (Pepcid Tab*) 20 mg PO DAILY [facility] PRN Reason: Protocol Last Admin: 11/22/17 09:15 Dose: 20 mg Folic Acid (Folvite Tab*) 1 mg PO DAILY [facility] Last Admin: 11/22/17 09:15 Dose: 1 mg Gabapentin (Neurontin Cap(*)) 600 mg PO TID [facility] Last Admin: 11/22/17 09:14 Dose: 600 mg Heparin Sodium (Porcine) (Heparin Vial(*)) 0 units IV .PER PROTOCOL [facility] PRN Reason: Protocol Last Admin: 11/22/17 05:22 Dose: 3,000 units Hydralazine HCl (Apresoline Tab*) 25 mg PO TID [facility] Last Admin: 11/22/17 09:15 Dose: 25 mg Heparin Sodium/Dextrose (Heparin Drip 25,000 Units(*)) 25,000 units in 500 mls @ 0 mls/hr IVPB .PER RATE [facility]; Per Protocol PRN Reason: Protocol Last Admin: 11/21/17 11:35 Dose: 19 mls/hr Isosorbide Mononitrate (Imdur Er Tab*) 60 mg PO DAILY [facility] Last Admin: 11/22/17 09:14 Dose: 60 mg Lisinopril (Prinivil Tab*) 10 mg PO BID [facility] Last Admin: 11/22/17 09:15 Dose: 10 mg Nitroglycerin (Nitroglycerin Tab 0.4 Mg*) 0.4 mg SL Q5M PRN PRN Reason: PAIN - CHEST Ondansetron HCl (Zofran Tab*) 4 mg PO Q6HR PRN PRN Reason: NAUSEA Last Admin: 11/21/17 11:34 Dose: 4 mg Oxycodone HCl (Roxycodone Tab*) 15 mg PO Q6H PRN PRN Reason: PAIN Last Admin: 11/22/17 09:15 Dose: 15 mg Pancrelipase (Zenpep Delayed Cap*) 10,000 units PO QID [facility] Last Admin: 11/22/17 09:14 Dose: 10,000 units Simethicone (Mylicon Tab*) 80 mg PO Q6H PRN PRN Reason: DYSPEPSIA Simvastatin (Zocor(Nf)) 10 mg PO DAILY [facility] Last Admin: 11/22/17 09:15 Dose: 10 mg Vitamin B Complex/Vitamin E (Complex B-100*) 1 tab PO DAILY [facility] Last Admin: 11/22/17 09:14 Dose: 1 tab Warfarin Sodium (Coumadin Tab(*)) 6 mg PO DAILY@1700 [facility] PRN Reason: Protocol Vital Signs - 8 hr 11/22/17 11/22/17 11/22/17 07:22 07:51 09:14 Temperature 98.0 F Pulse Rate 64 Respiratory 16 14 16 Rate Blood Pressure 158/79 (mmHg) O2 Sat by Pulse 99 Oximetry 11/22/17 11/22/17 09:15 11:46 Temperature 98.1 F Pulse Rate 67 Respiratory 16 14 Rate Blood Pressure 166/139 (mmHg) O2 Sat by Pulse 95 Oximetry Oxygen Devices in Use Now: None Appearance: Alert, sitting on the edge of his bed. In good spirits. Looks comfortable. Eyes: No Scleral Icterus Extremities: No Edema, No Clubbing, Cyanosis, - Skin: No Rash or Ulcers, No Nodules or Sclerosis, - Neurological: Alert and Oriented x 3, NL Sensation Result Diagrams: 11/21/17 09:03 11/21/17 09:03 Additional Lab and Data: Lab Results 11/19/17 11/19/17 11/19/17 Range/Units 04:11 04:11 04:11 WBC 3.6 (3.5-10.8) 10^3/ul RBC 3.69 L (4.0-5.4) 10^6/ul Hgb 10.4 L (14.0-18.0) g/dl Hct 32 L (42-52) % MCV 88 (80-94) fL MCH 28 (27-31) pg MCHC 32 (31-36) g/dl RDW 18 H (10.5-15) % Plt Count 99 L (150-450) 10^3/ul MPV 9 (7.4-10.4) um3 Neut % (Auto) 58.6 (38-83) % Lymph % (Auto) 19.8 L (25-47) % [place] % (Auto) 19.1 H (1-9) % Eos % (Auto) 1.4 (0-6) % Baso % (Auto) 1.1 (0-2) % Absolute Neuts (auto) 2.1 (1.5-7.7) 10^3/ul Absolute Lymphs (auto) 0.7 L (1.0-4.8) 10^3/ul Absolute Monos (auto) 0.7 (0-0.8) 10^3/ul Absolute Eos (auto) 0.1 (0-0.6) 10^3/ul Absolute Basos (auto) 0 (0-0.2) 10^3/ul Absolute Nucleated RBC 0 10^3/ul Nucleated RBC % 0.1 INR (Anticoag Therapy) 1.37 H (0.77-1.02) APTT 39.9 H (26.0-36.3) seconds Sodium 134 (133-145) mmol/L Potassium TNP Chloride 93 L (101-111) mmol/L Carbon Dioxide 31 (22-32) mmol/L Anion Gap 10 (2-11) mmol/L BUN 35 H (6-24) mg/dL Creatinine 8.31 H (0.67-1.17) mg/dL Est GFR ( Amer) 8.4 (>60) Est GFR (Non-Af Amer) 6.5 (>60) BUN/Creatinine Ratio 4.2 L (8-20) Glucose 80 (70-100) mg/dL Lactic Acid (0.5-2.0) mmol/L Calcium 9.7 (8.6-10.3) mg/dL Total Bilirubin 0.70 (0.2-1.0) mg/dL AST TNP ALT 28 (7-52) U/L Alkaline Phosphatase 75 (34-104) U/L Troponin I 0.09 H* (<0.04) ng/mL Total Protein 8.5 (6.4-8.9) g/dL Albumin 4.4 (3.2-5.2) g/dL Globulin 4.1 H (2-4) g/dL Albumin/Globulin Ratio 1.1 (1-3) Lipase 12 (11.0-82.0) U/L TSH 6.69 H (0.34-5.60) mcIU/mL Influenza A (Rapid) (Negative) Influenza B (Rapid) (Negative) 11/19/17 11/19/17 11/19/17 Range/Units 04:11 04:34 07:00 WBC (3.5-10.8) 10^3/ul RBC (4.0-5.4) 10^6/ul Hgb (14.0-18.0) g/dl Hct (42-52) % MCV (80-94) fL MCH (27-31) pg MCHC (31-36) g/dl RDW (10.5-15) % Plt Count (150-450) 10^3/ul MPV (7.4-10.4) um3 Neut % (Auto) (38-83) % Lymph % (Auto) (25-47) % [place] % (Auto) (1-9) % Eos % (Auto) (0-6) % Baso % (Auto) (0-2) % Absolute Neuts (auto) (1.5-7.7) 10^3/ul Absolute Lymphs (auto) (1.0-4.8) 10^3/ul Absolute Monos (auto) (0-0.8) 10^3/ul Absolute Eos (auto) (0-0.6) 10^3/ul Absolute Basos (auto) (0-0.2) 10^3/ul Absolute Nucleated RBC 10^3/ul Nucleated RBC % INR (Anticoag Therapy) (0.77-1.02) APTT (26.0-36.3) seconds Sodium (133-145) mmol/L Potassium Pending Chloride (101-111) mmol/L Carbon Dioxide (22-32) mmol/L Anion Gap (2-11) mmol/L BUN (6-24) mg/dL Creatinine (0.67-1.17) mg/dL Est GFR ( Amer) (>60) Est GFR (Non-Af Amer) (>60) BUN/Creatinine Ratio (8-20) Glucose (70-100) mg/dL Lactic Acid 0.8 (0.5-2.0) mmol/L Calcium (8.6-10.3) mg/dL Total Bilirubin (0.2-1.0) mg/dL AST 38 ALT (7-52) U/L Alkaline Phosphatase (34-104) U/L Troponin I Pending (<0.04) ng/mL Total Protein (6.4-8.9) g/dL Albumin (3.2-5.2) g/dL Globulin (2-4) g/dL Albumin/Globulin Ratio (1-3) Lipase (11.0-82.0) U/L TSH (0.34-5.60) mcIU/mL Influenza A (Rapid) Negative (Negative) Influenza B (Rapid) Negative (Negative) Assess/Plan/Problems-Billing Assessment: - Patient Problems (1) Hypertension Current Visit: No Status: Chronic Priority: High Code(s): I10 - ESSENTIAL (PRIMARY) HYPERTENSION SNOMED Code(s): 12965913 Comment: Lisinopril increased to 10 mg bid on 11/20/17. Started diltiazem CD 180 mg 11/22. All BP's her are done at his ankle. In the dialysis clinic they are done at his Left wrist. (2) DVT (deep venous thrombosis) Current Visit: Yes Status: Acute Code(s): I82.409 - ACUTE EMBOLISM AND THOMBOS UNSP DEEP VN UNSP LOWER EXTREMITY SNOMED Code(s): 196079999 Comment: R arm cephalic vein. Heparin bridge to warfarin. Warfarin increased to 7.5 mg 11/21. (3) ESRD (end stage renal disease) on dialysis Current Visit: No Status: Chronic Code(s): N18.6 - END STAGE RENAL DISEASE; Z99.2 - DEPENDENCE ON RENAL DIALYSIS SNOMED Code(s): 519959630 Comment: Continue MWF dialysis. Pt refuses to take kayexalate at home or in the hospital. Med d/c'd. Likely with hospital renal diet will not need it in the hospital but I told him he should take it at home. (4) Hepatitis C Current Visit: No Status: Chronic Priority: Medium Comment: High hep C RNA 12/08/2012.
--- NOTE | 2017-11-22 13:25 | ED ---
Ruddy Briones Stephanie, scribed for Steven Kowalski MD on 11/19/17 at 0917 . Progress - Results/Orders Results/Orders: Venous Doppler Study shows: 1. AGAIN NOTED IS NONOCCLUSIVE THROMBUS OF THE RIGHT INTERNAL JUGULAR VEIN AND PROXIMAL SUPERIOR VENA VEIN. THE OPERATIVE HAS DECREASED COMPARED TO MARCH 13, 2017. 2. THERE IS OCCLUSIVE THROMBUS WITHIN THE RIGHT CEPHALIC VEIN FROM THE ANTECUBITAL FOSSA TO THE FOREARM. 3. AGAIN NOTED IS A FAILED DIALYSIS GRAFT. Re-Evaluation - Re-Evaluation First Eval Re-Evaluation Time: 09:47 Change: Unchanged - ED physician advised the pt that he will be admitted for IV heparin. High risk for PE given UE DVT on dialysis. No active bleeding from site. Second Eval Re-Evaluation Time: 10:11 Change: Unchanged - Pt states that he does not want to be admitted but will accept admission. Course/Dx - Course Course Of Treatment: Medications reviewed. BP noted and patient urged primary care follow-up. Allergies noted. PAIN IMPROVED IN THE ED. The pt will be admitted into the hospital. - Diagnoses Provider Diagnoses: Uncontrolled hypertension, Chest pain, Swelling of right upper extremity, Deep vein thrombosis (DVT) of right upper extremity - Provider Notifications Discussed Care Of Patient With: Lalo White Time Discussed With Above Provider: 10:46 The documentation as recorded by the Ruddy casey Stephanie accurately reflects the service I personally performed and the decisions made by Dex washington Jerry, MD.
[2017-11-22] MEDS: Warfarin TAB(*) 6 MG PO SCH (17:42)
[2017-11-22] MEDS: Ondansetron TAB* 4 MG PO PRN (19:47)
[2017-11-22] MEDS: Heparin DRIP 25,000 UNITS(*) 25,000 UNITS/500 ML BAG IVPB SCH (20:12)
[2017-11-22] MEDS ORDERED: Albuterol 2.5 MG/3 ML NEB.SOL* (0.083%) INH PRN (21:24)
[2017-11-22] MEDS ORDERED: Albuterol 2.5 MG/3 ML NEB.SOL* (0.083%) ONE (21:28)
[2017-11-23 00:15] LABS: EGFR Non-African American 5.3 (>60)
[2017-11-23] MEDS ORDERED: Insulin REGULAR(*) 1 UNITS UNIT SUBCUT ONE (00:22)
[2017-11-23] MEDS ORDERED: Calcium Gluconate INJ* 1 GM in NS 0.9% 50 ML* 50 ML IVPB ONE (00:22)
[2017-11-23 00:24] LABS: ABS Basophils 0 10^3/ul (0-0.2); ABS Eosinophils 0.1 10^3/ul (0-0.6); ABS Lymphocytes 1.1 10^3/ul (1.0-4.8); ABS Monocytes 0.5 10^3/ul (0-0.8); ABS Neutrophils 2.3 10^3/ul (1.5-7.7); ABS Nucleated RBC 0 10^3/ul; Eosinophil % 1.6 % (0-6); Hematocrit 29 % (42-52); Hemoglobin 9.6 g/dl (14.0-18.0); Lymphocyte % 27.3 % (25-47); Mean Corpuscular HGB Conc 33 g/dl (31-36); Mean Corpuscular Hemoglobin 29 pg (27-31); Mean Corpuscular Volume 88 fL (80-94); Mean Platelet Volume 9 um3 (7.4-10.4); Nucleated Red Blood Cells % 0.4; Platelet Count 114 10^3/ul (150-450); Red Cell Distribution Width 18 % (10.5-15); White Blood Count 3.9 10^3/ul (3.5-10.8)
[2017-11-23] MEDS ORDERED: Insulin REGULAR(*) 1 UNITS UNIT ONE (00:37)
--- NOTE | 2017-11-23 00:41 | PN ---
Progress Note - Progress Note Date of Service: 11/23/17 Note: CAT call called at 1103 for bradycardia. I was summoned to the patient's room as he reported to the nurse he did not feel well. He was found to be diaphoretic and had a pulse in the low 30's. The patient was drowsy upon arrival to his room. The patient complained of severe abdominal pain. He states it is different from his usual pain. He denies any chest pain or SOB/difficult taking a deep breath. The patient was found to be requiring more O2 than his baseline 3L. At times he seemed to follow commands without difficulty, other times he appeared to be "zoned out." He had questionable seizure activity for several seconds but came back to the drowsy, not his baseline mental status. EKG obtained and revealed a ?paced rhythm with few intrinsic narrow complex beats. STAT CBC, CMP and INR obtained. K elevated at 6.3 (he last had dialysis 11/20/17). THe patient continues to state he feels lousy. His mental status is not at baseline. STAT pCXR obtained and shows possible pulmonary edema. STAT AXR obtained and no free air was identified. Will send pt for CT brain to r/o bleed given AMS (neuro exam non-focal). Will also get CTA chest to r/o PE as cause of new bradycardia and worsened hypoxia. Of note the patient had an episode very similar to this in 02/2018 where I was called urgently to the dialysis unit as he was found to be hypotensive with a HR in the low 30's. At that time it was found he was markedly hyperkalemic with a K of 7.6 and it was felt that the hyperkalemia lead to a junctional escape rhythm that was competing with his pacer leading to the bradycardia. His pacer rate was turned up from 40 to 70 so his BP would improve and he could receive urgent dialysis. At the time of that event the patient was on heparin for an IJ thrombus. I spoke with Dr. Navarro who recommended getting the pacer/ICD rep here early this AM to interrogate his pacer. For the hyperkalemia now will give calcium gluconate 1g IV, regular insulin 10units IV and dextrose 25g IV. I have also spoken with Dr. Angel who recommended starting dopamine at 5mcg/kg/min.
[2017-11-23] MEDS ORDERED: Dextrose 50% Syringe 50 ML* 25 GM/50 ML SYRINGE ONE (00:42)
[2017-11-23] MEDS ORDERED: Dextrose 50% Syringe 50 ML* 25 GM/50 ML SYRINGE IV PUSH SCH (01:00)
[2017-11-23] MEDS ORDERED: Metoclopramide IV* 5 MG/ML 2 ML VIAL IV SLOW PU ONE (01:23)
[2017-11-23] MEDS ORDERED: Sodium Polystyrene ORAL.SOL* 15 GM/60 ML BTL PO ONE (01:23)
[2017-11-23] MEDS ORDERED: Metoclopramide IV* 5 MG/ML 2 ML VIAL ONE (01:38)
[2017-11-23] MEDS: DOPAMINE IV SCH ×4 (01:50→08:49)
[2017-11-23] MEDS: NS 0.9% IV SCH ×4 (01:50→08:49)
[2017-11-23] MEDS ORDERED: Iodixanol* (CONTRAST) 320 MG/ML 100 ML SDV IV ONE (02:32)
--- NOTE | 2017-11-23 06:40 | PN ---
Progress Note - Progress Note Date of Service: 11/23/17 Note: At time of recheck of potassium the patient was sitting on the toilet having a BM as he took a dose of kayexalate 15g (he had so far refused the other 15g). His potassium remains elevated at 6.7. He is to get dialysis this AM. Additionally the patient has been taken off the heparin drip as of the time of the CAT call given his AMS and severe abdominal pain. The plan was to get imaging of his head prior to resuming the heparin to ensure he did not have a bleed however he can not lie flat.
--- NOTE | 2017-11-23 07:56 | RAD ---
INDICATION: Cardiomegaly. Valvular surgery COMPARISON: November 19, 2017 TECHNIQUE: An AP portable view obtained at 0025 hours is submitted. FINDINGS: Bones/Soft Tissues: There are no acute bony findings. There is sternotomy. There is valvular surgery. There is a left-sided dialysis catheter. There is a cardiac pacemaker/defibrillator. Cardiomediastinal: Enlarged cardiac silhouette, unchanged. Prominent central pulmonary vessels and interstitial markings. Moderate vascular congestion. Lungs: Interstitial and alveolar infiltrates consistent with interstitial congestion.. Pleura: Small bilateral pleural effusions. Other: No subdiaphragmatic free air is identified IMPRESSION: POST SURGICAL CHANGES. MODERATE VASCULAR CONGESTION.
--- NOTE | 2017-11-23 07:58 | RAD ---
INDICATION: Evaluate for free air. COMPARISON: Comparison is made with a prior CT of the abdomen and pelvis from October 21, 2017. TECHNIQUE: A single frontal supine film of the abdomen was obtained. The patient also had an upright chest x-ray approximately the same time. FINDINGS: The small bowel and colon appear nondistended. No free to peritoneal air is seen on the upright chest x-ray study. IMPRESSION: NO EVIDENCE FOR OBSTRUCTION.
[2017-11-23 08:44] LABS: Hematocrit 32 % (42-52); Hemoglobin 10.5 g/dl (14.0-18.0); Mean Corpuscular HGB Conc 33 g/dl (31-36); Mean Corpuscular Hemoglobin 29 pg (27-31); Mean Corpuscular Volume 87 fL (80-94); Mean Platelet Volume 9 um3 (7.4-10.4); Platelet Count 112 10^3/ul (150-450); Red Blood Count 3.68 10^6/ul (4.0-5.4); Red Cell Distribution Width 18 % (10.5-15); White Blood Count 4.9 10^3/ul (3.5-10.8)
[2017-11-23 08:56] LABS: EGFR Non-African American 5.1 (>60)
[2017-11-23] MEDS ORDERED: Epoetin Alfa* 4,000 UNITS/ML VIAL IV ONE (11:00)
[2017-11-23] MEDS ORDERED: hydrALAZINE IV* 20 MG/ML VIAL IV SLOW PU PRN (12:21)
[2017-11-23] MEDS: Pancrelipase CAP* 5,000 UNITS CAP PO SCH ×4 (13:10→20:19)
[2017-11-23] MEDS: Famotidine TAB* 20 MG PO SCH (13:10)
[2017-11-23] MEDS: Gabapentin CAP(*) 300 MG PO SCH ×3 (13:10→20:16)
[2017-11-23] MEDS: hydrALAZINE TAB* 25 MG PO SCH ×3 (13:10→20:16)
[2017-11-23] MEDS: Lisinopril TAB* 10 MG PO SCH ×2 (13:10→20:16)
[2017-11-23] MEDS: Folic Acid TAB* 1 MG PO SCH (13:11)
[2017-11-23] MEDS: Isosorbide Mononitrate ER TAB* 60 MG PO SCH (13:11)
[2017-11-23] MEDS: Vitamin B Complex TAB PO SCH (13:11)
[2017-11-23] MEDS: Cinacalcet TAB* 30 MG PO SCH (13:11)
[2017-11-23] MEDS: CMC:Simvastatin TAB(NF) 10 MG TAB PO SCH (13:11)
[2017-11-23] MEDS: Ascorbic Acid TAB* 500 MG PO SCH (13:11)
[2017-11-23] MEDS: Citalopram TAB* 20 MG PO SCH (13:11)
[2017-11-23] MEDS: oxyCODONE TAB* 5 MG TAB PO PRN (13:20)
[2017-11-23] MEDS: Carvedilol TAB* 25 MG PO SCH ×2 (13:30→17:50)
--- NOTE | 2017-11-23 13:50 | PN ---
Progress Note - Progress Note Date of Service: 11/23/17 Note: CRITICAL CARE MEDICINE Date: 11/23/17 Time: 1300 SUBJECTIVE: Patient seen and examined. PHYSICAL EXAM: Vital Signs: Reviewed. Hr 70s. BP up now ~170. 6L O2 coming down Neurologic: awake communicating well. HEENT: pupils equal. Sclera anicteric. Trachea midline. Cardiovascular: distant, S1 S2, 3/6 garcia. tunnel catheter and pacer intact on left Respiratory: dec, mild rhonchi. Abdomen: Soft, nt. No r/g/r. Extremities: Warm. LABS: Reviewed. IMAGING: Reviewed. MEDICATIONS: Reviewed. ASSESSMENT/PLAN: 67 M Acute on chronic renal failure ailments with hyperkalemia inducing junctional kris and relative hypotension from his baselines. Dopamine utilized overnight and Needing urgent HD which was obtained this am and vastly improved. off dopa. Has dvt/clot burden and INR pending, but if >1.8 can hold off on further heparin since there was a concern for heparin induced hyperk. Continued coumadin. can hold off on cta. Resume outpt rx. Nephro following electrolyte disequilibrium. Wean off O2. PO diet. labs tomorrow am He is already saying he wants out of hospital tomorrow Supportive and preventative care as ordered. Disposition: ICU today. hospitalist care tomorrow Code Status: Full Critical Care Time: 25min Rustam Angel DO
[2017-11-23 13:58] LABS: EGFR Non-African American 11.9 (>60); INR 2.86 (0.77-1.02)
[2017-11-23] MEDS: Warfarin TAB(*) 6 MG PO SCH (17:50)
[2017-11-23] MEDS: MinoXIDil TAB* 2.5 MG TAB PO SCH (18:06)
[2017-11-24] MEDS: oxyCODONE TAB* 5 MG TAB PO PRN ×2 (01:59→08:24)
[2017-11-24] MEDS: hydrALAZINE IV* 20 MG/ML VIAL IV SLOW PU PRN ×2 (02:20→06:54)
[2017-11-24 05:48] LABS: Hematocrit 32 % (42-52); Hemoglobin 10.6 g/dl (14.0-18.0); Mean Corpuscular HGB Conc 33 g/dl (31-36); Mean Corpuscular Hemoglobin 29 pg (27-31); Mean Corpuscular Volume 88 fL (80-94); Mean Platelet Volume 8 um3 (7.4-10.4); Platelet Count 145 10^3/ul (150-450); Red Cell Distribution Width 18 % (10.5-15); White Blood Count 4.4 10^3/ul (3.5-10.8)
[2017-11-24 05:57] LABS: INR 4.52 (0.77-1.02)
[2017-11-24 06:01] LABS: EGFR Non-African American 7.2 (>60)
[2017-11-24] MEDS: Pancrelipase CAP* 5,000 UNITS CAP PO SCH (08:25)
[2017-11-24] MEDS: Carvedilol TAB* 25 MG PO SCH (08:25)
[2017-11-24] MEDS: Cinacalcet TAB* 30 MG PO SCH (08:25)
[2017-11-24] MEDS: CMC:Simvastatin TAB(NF) 10 MG TAB PO SCH (08:26)
[2017-11-24] MEDS: MinoXIDil TAB* 2.5 MG TAB PO SCH (08:26)
[2017-11-24] MEDS: Isosorbide Mononitrate ER TAB* 60 MG PO SCH (08:26)
[2017-11-24] MEDS: hydrALAZINE TAB* 25 MG PO SCH (08:27)
[2017-11-24] MEDS: Gabapentin CAP(*) 300 MG PO SCH (08:27)
[2017-11-24] MEDS: Folic Acid TAB* 1 MG PO SCH (08:28)
[2017-11-24] MEDS: Ascorbic Acid TAB* 500 MG PO SCH (08:28)
[2017-11-24] MEDS: Vitamin B Complex TAB PO SCH (08:28)
[2017-11-24] MEDS: Famotidine TAB* 20 MG PO SCH (08:28)
[2017-11-24] MEDS: Citalopram TAB* 20 MG PO SCH (08:28)
[2017-11-24] MEDS: Lisinopril TAB* 10 MG PO SCH (08:29)
[2017-11-24 11:28] VITALS: BP 92/49
--- NOTE | 2017-11-24 23:24 | DS ---
CC: Dr. Dalal * DISCHARGE SUMMARY: DATE OF ADMISSION: 11/19/17 DATE OF DISCHARGE: 11/24/17 PRINCIPAL DISCHARGE DIAGNOSES: Internal jugular vein deep venous thrombosis and proximal SVC deep venous thrombosis as well as occlusive thrombus in the right cephalic vein. SECONDARY DIAGNOSES: 1. End-stage renal disease. 2. Hyperkalemia. 3. Aortic valve calcification. 4. HCV. PHYSICAL EXAMINATION: Vital Signs: On the day of discharge, heart rate 77; respiratory rate 16; blood pressure 92/49; pulse ox 100% on 2 L. General: Alert, thin, well appearing man, sitting up in the chair, in no distress. HEENT: Pupils equal, round and reactive to light. Moist mucosa. Neck: No JVP. No lymphadenopathy. Chest: Regular rate and rhythm. No murmurs. PMI nondisplaced. No S3. A PermCath is in place on the left chest wall. Lungs: Clear bilaterally. Sternotomy insertion well healed. Abdomen: Soft, nontender, and nondistended. Extremities : Fistula in the left upper extremity without a thrill. No lower extremity edema or rashes. HOSPITAL COURSE BY PROBLEM: 1. IJ cephalic and SVC thrombosis. 2. The cephalic vein DVT would not warrant anticoagulation; however, the other locations do, so he was started on heparin on admission and bridged with Coumadin due to his end-stage renal disease. On the day of discharge, his INR is 4.5. This was on 6 mg daily, so he is being instructed to hold the warfarin for the next 2 days, have it rechecked and dialysis on Thursday and then the plan will be for Dr. Dalal to tell him whether or not to resume his warfarin if he falls into a therapeutic range. 3. Hyperkalemia. He developed hyperkalemia during his admission to 7.7. He was found to be in junctional bradycardia at that time, so he was transferred to the ICU for urgent dialysis. He also received Kayexalate. On the day of discharge, his potassium is 4.2. He was educated on low potassium diet. 4. End-stage renal disease. He is continued on his home schedule of Thursday, Thursday, and Thursday. He is euvolemic at the time of discharge. 5. Hyponatremia. This is chronic and unchanged from baseline and likely related to his end-stage renal disease. He is euvolemic. 6. Hypertension. His medications were titrated during this admission. His lisinopril was increased and Cardizem was started due to difficult to control blood pressure. 7. HCV. He has not received treatment for this. 8. Follow if needed. Mr. Templeton is being discharged to home on 11/24/17 with a plan for an INR check on Thursday. He is instructed not to take his warfarin until he is told to resume it. [id number]/[facility] #: [id number] [facility]
== END 2017-11-24 12:30 | disposition home or self-care (01) | DRG 299 ==
LOC: ED 01:51 → MEDTELE 10:06 → SSU 12:00 → ICU 11-22 23:58
PROVIDERS: ADMIT Internal Medicine; ATTEND Internal Medicine
PROC: 5A1D70Z Performance of Urinary Filtration, Intermittent, Less than 6 Hours Per Day (ICD-10-PCS; principal; 2017-11-20)
PROC: 5A1D70Z Performance of Urinary Filtration, Intermittent, Less than 6 Hours Per Day (ICD-10-PCS; 2017-11-23)
DX: I82.C11 Acute embolism and thrombosis of right internal jugular vein (principal); N18.6 End stage renal disease; N17.9 Acute kidney failure, unspecified; E87.1 Hypo-osmolality and hyponatremia; E87.5 Hyperkalemia; I13.11 Hypertensive heart and chronic kidney disease without heart failure, with stage 5 chronic kidney disease, or end stage renal disease; I82.621 Acute embolism and thrombosis of deep veins of right upper extremity; Z99.2 Dependence on renal dialysis; I25.10 Atherosclerotic heart disease of native coronary artery without angina pectoris; I82.210 Acute embolism and thrombosis of superior vena cava; Z95.1 Presence of aortocoronary bypass graft; I73.9 Peripheral vascular disease, unspecified; K21.9 Gastro-esophageal reflux disease without esophagitis; B19.20 Unspecified viral hepatitis C without hepatic coma; D63.1 Anemia in chronic kidney disease; G89.29 Other chronic pain; Z95.810 Presence of automatic (implantable) cardiac defibrillator; Z79.899 Other long term (current) drug therapy; Z88.6 Allergy status to analgesic agent; Z88.8 Allergy status to other drugs, medicaments and biological substances; Z82.3 Family history of stroke; Z82.49 Family history of ischemic heart disease and other diseases of the circulatory system; Z87.891 Personal history of nicotine dependence
CPT/HCPCS: 36415; 71045; 74018; 80048; 80051; 80053; 82550; 83605; 83690; 83735; 84100; 84443; 84484; 85025; 85027; 85060; 85610; 85730; 87502; 93005; 96374; 96375; 96376; 99283; A9270-GY; J0360; J0610; J0885; J1265; J1644; J2270; J2405; J2765

== ENCOUNTER 2017-11-26 16:50 | Inpatient (IN) | payer MEDICARE ==
[2017-11-26] MEDS ORDERED: LORazepam INJ* 2 MG/ML 1 ML VIAL ONE (16:57)
[2017-11-26 17:13] LABS: ABS Basophils 0.1 10^3/ul (0-0.2); ABS Eosinophils 0.1 10^3/ul (0-0.6); ABS Lymphocytes 0.8 10^3/ul (1.0-4.8); ABS Monocytes 1.2 10^3/ul (0-0.8); ABS Nucleated RBC 0 10^3/ul; Eosinophil % 1.2 % (0-6); Hematocrit 32 % (42-52); Hemoglobin 10.3 g/dl (14.0-18.0); Lymphocyte % 12.7 % (25-47); Mean Corpuscular HGB Conc 33 g/dl (31-36); Mean Corpuscular Hemoglobin 29 pg (27-31); Mean Corpuscular Volume 88 fL (80-94); Mean Platelet Volume 7 um3 (7.4-10.4); Nucleated Red Blood Cells % 0; Platelet Count 147 10^3/ul (150-450); Red Cell Distribution Width 18 % (10.5-15); White Blood Count 6.1 10^3/ul (3.5-10.8)
[2017-11-26 17:27] LABS: INR 2.07 (0.77-1.02)
[2017-11-26 17:28] LABS: EGFR Non-African American 4.3 (>60)
--- NOTE | 2017-11-26 18:19 | RAD ---
HISTORY: Seizure COMPARISONS: February 04, 2017 TECHNIQUE: Multiple contiguous axial CT scans were obtained of the head without intravenous contrast. FINDINGS: HEMORRHAGE/INFARCT: There is no hemorrhage or acute infarct. MASSES/SHIFT: There is no mass or shift. EXTRA-AXIAL SPACES: There are no extra-axial fluid collections. SULCI AND VENTRICLES: The sulci and ventricles are normal in size and position for the patient's stated age. CEREBRUM: There are no focal parenchymal abnormalities. BRAINSTEM: There are no focal parenchymal abnormalities. CEREBELLUM: There are no focal parenchymal abnormalities. VESSELS: The vessels are grossly normal. PARANASAL SINUSES: The paranasal sinuses are clear. ORBITS: The orbits are unremarkable. BONES AND SOFT TISSUE: No bone or soft tissue abnormalities are noted. OTHER: None IMPRESSION: NO ACUTE INTRACRANIAL PATHOLOGY.
--- NOTE | 2017-11-26 19:58 | ED ---
Siva Briones Angela, scribed for Yuly Ponce MD on 11/26/17 at 1955 . Progress - Progress Note Progress Note: This pt was signed out by Dr. Reyes, pending admission from the hospitalist. [19:48] I discussed pt's case with Dr. Azevedo, hospitalist, who has agreed to admit the pt. Condition: Stable Disposition: Admit to [facility] [place] Course/Dx - Diagnoses Provider Diagnoses: Altered mental status vs seizures, Uncontrolled hypertension - Provider Notifications Discussed Care Of Patient With: Maria Ines Azevedo Time Discussed With Above Provider: 19:48 Instructed by Provider To: Other - I discussed pt care with Dr. Azevedo who has agreed to admit the pt. The documentation as recorded by the Siva casey Angela accurately reflects the service I personally performed and the decisions made by , Yuly Ponce MD.
[2017-11-26] MEDS ORDERED: LORazepam INJ* 2 MG/ML 1 ML VIAL IV PUSH PRN (20:38)
[2017-11-26] MEDS ORDERED: Albuterol HFA INHALER* 8 gm MDI INH PRN (20:41)
[2017-11-26] MEDS ORDERED: Warfarin TAB(*) 5 MG PO ONE (20:47)
[2017-11-26] MEDS: hydrALAZINE TAB* 25 MG PO SCH (22:16)
[2017-11-26] MEDS: Gabapentin CAP(*) 300 MG PO SCH (22:17)
[2017-11-26] MEDS: Pancrelipase (NF) 12,000 UNITS CAP.DR PO SCH (22:18)
[2017-11-26] MEDS: oxyCODONE TAB* 5 MG TAB PO PRN (22:20)
--- NOTE | 2017-11-26 23:37 | HP ---
HISTORY AND PHYSICAL: DATE OF ADMISSION: 11/26/17 PRIMARY CARE PROVIDER: Dr. Vargas. HAND BOOTMAKER: Dr. Dalal. CHIEF COMPLAINT: Shortness of breath and convulsions. HISTORY OF PRESENT ILLNESS: Mr. Templeton is a 67-year-old male well known to the hospitalist service from multiple previous hospitalizations who presented to the emergency room for what I believe was shortness of breath; however, while in the waiting room, the patient reportedly began shaking all over and fell to the floor. At this point, the patient is sleeping in the ER. At one point, I ask him why he is so sleepy, he states because he wants to be and then he will not answer any of my other questions including why he is in the emergency room. The patient will not even respond if he is having any pain. Nursing in the emergency room was able to document that the patient reported dropping items and not holding on to even his own money. It was also noted that the patient complained of shaking uncontrollably and falling to the ground to the nurse in the ER. PAST MEDICAL HISTORY: 1. End-stage renal disease, on hemodialysis Thursday, Thursday, and Thursday. 2. Hypertension. 3. Coronary artery disease, status post CABG. 4. Peripheral vascular disease. 5. Internal jugular vein thrombosis in february 2017 and right upper extremity DVT in November 2017. 6. GERD. 7. History of hepatitis C. 8. Anemia of chronic kidney disease. 9. Chronic pain. 10. Status post mitral valve annuloplasty and tricuspid valve repair in 2013. 11. Status post ICD placement in 2015. 12. Cardiomyopathy with last EF 40%. ALLERGIES: HYDROMORPHONE and ASPIRIN. FAMILY HISTORY: Mom had a history of heart disease and stroke. This is documented on prior H and P. SOCIAL HISTORY: The patient is a reported former smoker. No history of alcohol abuse. He occasionally smokes marijuana. At this point, the patient is unable to indicate a healthcare proxy. REVIEW OF SYSTEMS: Unobtainable as the patient will not answer my questions. PHYSICAL EXAMINATION GENERAL: The patient is a well-developed middle-aged male lying in the stretcher sleeping, briefly opens his eyes to voice and light touch, appears to have some, perhaps voluntary twitching when I address him as when he is at rest there is no twitching noted. He is in no acute distress. VITAL SIGNS: Blood pressure 146/80, pulse 74, respirations 11, temp 98, O2 sat 99% on room air. HEENT: The patient tries to forcefully close his eyelids when I try to lift them to look at his pupils. His pupils are round, there are what appeared to be cataracts. Extraocular muscles are not tested as the patient again closes his eyes despite me trying to lift his eyelids. He will not open his mouth. NECK: There is no submandibular, cervical, or supraclavicular adenopathy. Thyroid is not enlarged. No thyroid nodules noted. PULMONARY: Lungs are clear to auscultation anteriorly. CARDIAC: Normal S1, S2. Regular rate and rhythm. I do not appreciate any murmurs. There is trace lower extremity edema. ABDOMEN: Bowel sounds are present. Abdomen is soft, nontender. It is fairly protuberant in the upper abdomen. This is unchanged from my last encounter with the patient on 11/22/17. MUSCULOSKELETAL: There is no obvious joint deformities. SKIN: Warm and dry. There are no rashes. NEURO: Unable to be tested as the patient is not cooperative. PSYCH: Unable to be tested as the patient is not cooperative. LABORATORY DATA: WBC 6.1, hemoglobin 10.3, hematocrit 32, platelets 147,000. INR 2.07. Sodium 138, potassium 5.1, chloride 96, CO2 of 28, BUN 63, creatinine 11.96, glucose 81, lactic acid 1.2, calcium 8.4, magnesium 2.7, bilirubin 0.5. AST 33, ALT 26, alk phos 72. Troponin 0.08. Albumin 4.1. TSH 1.19. Serum alcohol less than 10. DIAGNOSTIC STUDIES: EKG reveals normal sinus rhythm with inverted T waves in the lateral leads and lead 2 and aVL. This is changed in that leads 2 and V5 were upright T waves on 11/19/17, T-wave in V6 on 11/19/[address] brain, no acute intracranial pathology. ASSESSMENT AND PLAN: Mr. 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 1. Shortness of breath. At this point, the patient has a normal respiratory rate and is saturating well on room air. He will not awaken to answer my questions. He will be monitored overnight. 2. Possible convulsions. The patient reportedly was seen twitching quite significantly in the emergency room. He reportedly fell to the floor. The patient did have twitching when he tried to open his eyes to look at me; however , at rest there was no twitching noted. I will put him for an EEG. The patient 's potassium is mildly elevated at 5.1; however, the rest of his electrolytes are within acceptable range. We will continue to monitor for symptoms. 3. Elevated troponin. The troponin is elevated but at the patient's baseline. 4. Hypertension. The patient's blood pressure is under decent control at this point. He will be maintained on his Coreg, hydralazine, Imdur, and lisinopril. 5. Right upper extremity deep venous thrombosis. The patient will continue on Coumadin. His INR is therapeutic today. We will recheck the INR tomorrow. 6. History of chronic pancreatitis. Continue pancrelipase. 7. Hyperlipidemia. Continue simvastatin. 8. Coronary artery disease. The patient will be maintained on his Coreg, Imdur , and lisinopril. 9. End stage renal disease. Continue dialysis Thursday, Thursday and Thursday. 10. DVT prophylaxis. According to the Adult Thrombosis Prophylaxis Risk Factor Assessment Guide, the patient has a total risk factor score of 3, making him high risk. He will be maintained on Coumadin as his DVT prophylaxis. 11. Code status is full. TIME SPENT: 50 minutes was spent admitting this patient, of which half was spent attempting to get the patient to respond to me and performing physical exam. [id number]/[facility] [place] #: [id number] STEPHANIE
[2017-11-27] MEDS: oxyCODONE TAB* 5 MG TAB PO PRN ×3 (06:06→20:51)
[2017-11-27 06:48] LABS: Hematocrit 30 % (42-52); Hemoglobin 10.2 g/dl (14.0-18.0); Mean Corpuscular HGB Conc 34 g/dl (31-36); Mean Corpuscular Hemoglobin 30 pg (27-31); Mean Corpuscular Volume 87 fL (80-94); Mean Platelet Volume 8 um3 (7.4-10.4); Platelet Count 133 10^3/ul (150-450); Red Blood Count 3.46 10^6/ul (4.0-5.4); Red Cell Distribution Width 18 % (10.5-15); White Blood Count 5.9 10^3/ul (3.5-10.8)
[2017-11-27 06:55] LABS: INR 1.81 (0.77-1.02)
[2017-11-27 07:13] LABS: EGFR Non-African American 4.1 (>60)
[2017-11-27] MEDS: Famotidine TAB* 20 MG PO SCH (08:46)
[2017-11-27] MEDS: Cinacalcet TAB* 30 MG PO SCH (08:46)
[2017-11-27] MEDS: Gabapentin CAP(*) 300 MG PO SCH ×3 (08:46→20:52)
[2017-11-27] MEDS: Carvedilol TAB* 25 MG PO SCH ×2 (08:47→16:37)
[2017-11-27] MEDS: Lisinopril TAB* 10 MG PO SCH (08:47)
[2017-11-27] MEDS: Atorvastatin* 10 MG TAB PO SCH (08:47)
[2017-11-27] MEDS: Isosorbide Mononitrate ER TAB* 60 MG PO SCH (08:47)
[2017-11-27] MEDS: Pancrelipase (NF) 12,000 UNITS CAP.DR PO SCH ×2 (08:48→16:47)
[2017-11-27] MEDS: hydrALAZINE TAB* 25 MG PO SCH ×3 (08:48→20:53)
[2017-11-27] MEDS ORDERED: Citalopram TAB* 20 MG PO SCH (09:00)
[2017-11-27] MEDS ORDERED: Epoetin Alfa* 4,000 UNITS/ML VIAL IV ONE (11:00)
[2017-11-27] MEDS ORDERED: Heparin DIALYSIS ONLY(*) 1,000 UNITS/ML VIAL DIALYSIS ONE (11:00)
--- NOTE | 2017-11-27 14:16 | PN ---
Subjective Date of Service: 11/27/17 Interval History: C/O pain both legs from hips to toes, makes it nearly impossible for him to walk. Also c/o difficulty using both hands. Objective Active Medications: Albuterol (Ventolin Hfa Inhaler*) 2 puff INH Q4H PRN PRN Reason: SHORTNESS OF BREATH Atorvastatin Calcium (Lipitor*) 5 mg PO DAILY [facility] Last Admin: 11/27/17 08:47 Dose: 5 mg Carvedilol (Coreg Tab*) 25 mg PO BID WITH MEALS [facility] Last Admin: 11/27/17 08:47 Dose: 25 mg Cinacalcet (Sensipar Tab*) 30 mg PO DAILY [facility] Last Admin: 11/27/17 08:46 Dose: 30 mg Citalopram Hydrobromide (Celexa Tab*) 10 mg PO DAILY [facility] Famotidine (Pepcid Tab*) 20 mg PO DAILY [facility] PRN Reason: Protocol Last Admin: 11/27/17 08:46 Dose: 20 mg Gabapentin (Neurontin Cap(*)) 300 mg PO TID [facility] Hydralazine HCl (Apresoline Tab*) 25 mg PO TID [facility] Last Admin: 11/27/17 08:48 Dose: 25 mg Isosorbide Mononitrate (Imdur Er Tab*) 60 mg PO DAILY [facility] Last Admin: 11/27/17 08:47 Dose: 60 mg Lisinopril (Prinivil Tab*) 10 mg PO DAILY [facility] Last Admin: 11/27/17 08:47 Dose: 10 mg Minoxidil (Loniten Tab*) 5 mg PO DAILY [facility] Ondansetron HCl (Zofran Inj*) 4 mg IV Q6H PRN PRN Reason: NAUSEA Oxycodone HCl (Roxycodone Tab*) 20 mg PO Q4H PRN PRN Reason: PAIN Pancrelipase (Zenpep Delayed Cap*) 1,000 units PO QID [facility] Sodium Polystyrene Sulfonate (Kayexalate Oral.Joanna*) 15 gm PO DAILY [facility] Warfarin Sodium (Coumadin Tab(*)) 5 mg PO 1700 [facility] PRN Reason: Protocol Vital Signs - 8 hr 11/27/17 11/27/17 11/27/17 07:27 08:17 08:46 Temperature 98.7 F Pulse Rate 81 Respiratory 16 12 Rate Blood Pressure 193/94 200/108 (mmHg) O2 Sat by Pulse 100 Oximetry Oxygen Devices in Use Now: None, Nasal Cannula Appearance: Alert, supine in bed. Anxious, looks uncomfortable. Eyes: No Scleral Icterus Respiratory: Symmetrical Chest Expansion and Respiratory Effort, Clear to Auscultation, Clear to Percussion Cardiovascular: NL Sounds; No Murmurs; No JVD, RRR, No Edema, - Extremities: No Clubbing, Cyanosis, - - edema R hand. tender both LE. Skin: No Rash or Ulcers, No Nodules or Sclerosis, - Neurological: Alert and Oriented x 3, NL Sensation Result Diagrams: 11/27/17 05:54 11/27/17 05:54 Assess/Plan/Problems-Billing Assessment: - Patient Problems (1) ESRF (end stage renal failure) Current Visit: No Status: Acute Code(s): N18.6 - END STAGE RENAL DISEASE SNOMED Code(s): 42194861 Comment: Continue HD MWF, cinacalcet. Pt refuses Kayexalate. (2) Hypertension Current Visit: No Status: Chronic Priority: High Code(s): I10 - ESSENTIAL (PRIMARY) HYPERTENSION SNOMED Code(s): 29888490 Comment: Lisinopril increased to 10 mg bid on 11/20/17. Diltiazem may have caused unacceptable bradycardia. Re-start minoxidil 11/27. Continue lisinopril, carvedilol, hydralazine, nitrate. All BP's her are done at his ankle. In the dialysis clinic they are done at his Left wrist. (3) Cardiomyopathy Current Visit: No Status: Chronic Code(s): I42.9 - CARDIOMYOPATHY, UNSPECIFIED SNOMED Code(s): 25321688 Comment: LVEF 40-45 % on TTE 11/13/16. Continue lisinopril, carvedilol, hydralazine, nitrate. (4) Leg pain Current Visit: Yes Status: Acute Comment: Patient first requested IV MS, then requested large dose oxycodone. 20 mg q 4 hr PRN ordered. Pt refused APAP. ?? med effect. Citalopram and gabapnetin doses reduced.
[2017-11-27] MEDS: Sodium Polystyrene ORAL.SOL* 15 GM/60 ML BTL PO SCH ×2 (14:22→14:24)
[2017-11-27] MEDS: Warfarin TAB(*) 5 MG PO SCH (16:38)
[2017-11-27] MEDS: MinoXIDil TAB* 2.5 MG TAB PO SCH (16:38)
[2017-11-27] MEDS ORDERED: Pancrelipase CAP* 5,000 UNITS CAP PO SCH (17:00)
[2017-11-27] MEDS: Pancrelipase CAP* 5,000 UNITS CAP PO SCH ×2 (17:04→20:53)
[2017-11-28] MEDS: Citalopram TAB* 10 MG PO SCH (08:41)
[2017-11-28] MEDS: Lisinopril TAB* 10 MG PO SCH (08:41)
[2017-11-28] MEDS: Gabapentin CAP(*) 300 MG PO SCH (08:41)
[2017-11-28] MEDS: Pancrelipase CAP* 5,000 UNITS CAP PO SCH ×4 (08:42→21:02)
[2017-11-28] MEDS: Famotidine TAB* 20 MG PO SCH (08:42)
[2017-11-28] MEDS: oxyCODONE TAB* 5 MG TAB PO PRN ×3 (08:42→21:01)
[2017-11-28] MEDS: Cinacalcet TAB* 30 MG PO SCH (08:42)
[2017-11-28] MEDS: hydrALAZINE TAB* 25 MG PO SCH ×3 (08:42→21:03)
[2017-11-28] MEDS: Carvedilol TAB* 25 MG PO SCH ×2 (08:42→18:25)
[2017-11-28] MEDS: MinoXIDil TAB* 2.5 MG TAB PO SCH (08:42)
--- NOTE | 2017-11-28 08:42 | ED ---
Higinio Briones Thomas, scribed for Oskar Reyes MD on 11/26/17 at 1836 . Complex/Multi-Sys Presentation - HPI Summary HPI Summary: The patient is a 67 year old male presenting with shortness of breath. The patient was coming out a store prior to arrival and he was having weakness in his legs, which caused him to fall down. Since then, the patient has been having difficulty ambulating. The patient got here but does not know what happened until he was in the emergency department for some time. He is nonresponsive but he does follow commands. - History Of Current Complaint Chief Complaint: EDShortnessOfBreath Time Seen by Provider: 11/26/17 17:00 Hx Obtained From: Patient Onset/Duration: Still Present Timing: Constant Severity Initially: Moderate Alleviating Factor(s): Nothing Associated Signs And Symptoms: Positive: Other - Weakness, difficulty ambulating. Negative: Fever - Allergies/Home Medications Allergies/Adverse Reactions: Allergies Allergy/AdvReac Type Severity Reaction Status Date / Time hydromorphone Allergy Intermediate Unknown Verified 11/22/17 12:54 Reaction Details aspirin Allergy See Comment Verified 11/22/17 12:52 PMH/Surg Hx/FS Hx/Imm Hx Endocrine/Hematology History: Reports: Hx Blood Transfusions, Hx Sickle Cell Disease - Was told had sickle cell at one point but denies, Hx Anemia Denies: Hx Anticoagulant Therapy, Hx Bone Marrow Disease, Hx Diabetes, Hx Thyroid Disease Cardiovascular History: Reports: Hx Angina, Hx Auto Implanted Cardiovert Defib, Hx Congestive Heart Failure, Hx Coronary Artery Disease, Hx Deep Vein Thrombosis , Hx Hypertension, Hx Pacemaker/ICD, Hx Peripheral Vascular Disease, Hx Syncope , Other Cardiovascular Problems/Disorders - cardiomegaly, mitral valve and tricuspid valve repair Denies: Hx Cardiomegaly, Hx Hypercholesterolemia, Hx Myocardial Infarction, Hx Rheumatic Fever, Hx Valvular Heart Disease Respiratory History: Reports: Hx Asthma, Hx Chronic Obstructive Pulmonary Disease (COPD), Hx Pleural Effusion, Hx Pneumonia, Other Respiratory Problems/ Disorders Denies: Hx Pulmonary Edema, Hx Pulmonary Embolism, Hx Sleep Apnea GI History: Reports: Hx Cirrhosis, Hx Gastroesophageal Reflux Disease, Hx Ulcer - peptic ulcer, Other GI Disorders - hep C Denies: Hx Crohn's Disease, Hx Hiatal Hernia, Hx Irritable Bowel, Hx Jaundice History: Reports: Hx Acute Renal Failure, Hx Chronic Renal Failure, Hx Dialysis, Hx Renal Disease, Other Problems/Disorders - end stage renal disease, on dialysis Denies: Hx Kidney Infection, Hx Kidney Stones Musculoskeletal History: Reports: Hx Arthritis, Hx Back Problems - chronic pain , Hx Orthopedic Injury Denies: Hx Rheumatoid Arthritis, Hx Bursitis, Hx Tendonitis, Other Musculoskeletal History Sensory History: Reports: Hx Glaucoma, Hx Vision Problem Denies: Hx Cataracts, Hx Contacts or Glasses, Hx Hearing Aid Opthamlomology History: Reports: Hx Glaucoma, Hx Vision Problem Denies: Hx Cataracts, Hx Contacts or Glasses Neurological History: Reports: Hx Headaches, Hx Migraine, Other Neuro Impairments/Disorders - depression Denies: Hx Dementia, Hx Seizures Psychiatric History: Reports: Hx Anxiety, Hx Depression Denies: Hx Eating Disorder, Hx Panic Disorder, Hx Suicide Attempt, Hx of Violent Episodes Against Others, Hx Substance Abuse - Cancer History Hx Chemotherapy: No Hx Radiation Therapy: No Hx Palliative Cancer Treatment: No - Surgical History Surgery Procedure, Year, and Place: HERNIA REPAIR 2012. APPENDECTOMY 2000. LEFT ARM AV FISTULA/CAD - REMOVED. CABG 1 vessel, mitral & tricuspid valve repair March 02, 2014 AT [facility] CONDITIONAL 5 UPTO 3T. POWER PORT. Mitral and tricuspid valve repair Hx Anesthesia Reactions: No - Immunization History Date of Tetanus Vaccine: 2014 Date of Influenza Vaccine: Fall 2015 Infectious Disease History: No Infectious Disease History: Reports: Hx Hepatitis - Hep C, Hx of Known/ Suspected MRSA, History Other Infectious Disease - Hepatitis C Denies: Hx Clostridium Difficile, Hx Human Immunodeficiency Virus (HIV), Hx Shingles, Hx Tuberculosis, Hx Known/Suspected VRE, Hx Known/Suspected VRSA, Traveled Outside the in Last 30 Days - Family History Known Family History: Positive: Cardiac Disease, Hypertension, Other - CVA - Social History Alcohol Use: None Alcohol Amount: former EtOH abuse Hx Substance Use: Yes Substance Use Type: Reports: Marijuana Substance Use Comment - Amount & Last Used: today Hx Tobacco Use: Yes Smoking Status (MU): Former Smoker Type: Cigarettes Amount Used/How Often: 1/2 ppd Length of Time of Smoking/Using Tobacco: 10 years Have You Smoked in the Last Year: No Review of Systems Positive: Other - Difficulty ambulating. Negative: Fever Positive: Shortness Of Breath Positive: Weakness All Other Systems Reviewed And Are Negative: Yes Physical Exam - Summary Physical Exam Summary: VITAL SIGNS: Reviewed. GENERAL: Patient is a well-developed and nourished male who is lying comfortable in the stretcher. Patient is not in any acute respiratory distress. He is mostly nonresponsive but he does respond to commands. HEAD AND FACE: No signs of trauma. No ecchymosis, hematomas or skull depressions. No sinus tenderness. EYES: PERRLA, EOMI x 2, No injected conjunctiva, no nystagmus. EARS: Hearing grossly intact. Ear canals and tympanic membranes are within normal limits. MOUTH: Oropharynx within normal limits. NECK: Supple, trachea is midline, no adenopathy, no JVD, no carotid bruit, no c- spine tenderness, neck with full ROM. CHEST: Symmetric, no tenderness at palpation LUNGS: Clear to auscultation bilaterally. No wheezing or crackles. CVS: Regular rate and rhythm, S1 and S2 present, no murmurs or gallops appreciated. ABDOMEN: Soft, non-tender. No signs of distention. No rebound no guarding, and no masses palpated. Bowel sounds are normal. EXTREMITIES: FROM in all major joints, no edema, no cyanosis or clubbing. NEURO: Alert and oriented x 3. He has a myoclonic jerk in his upper and lower extremities. SKIN: Dry and warm Triage Information Reviewed: Yes Vital Signs On Initial Exam: Initial Vitals Temp Pulse Resp Pulse Ox 98 F 80 14 92 11/26/17 17:03 11/26/17 17:03 11/26/17 17:03 11/26/17 17:03 Vital Signs Reviewed: Yes Diagnostics - Vital Signs Vital Signs Temp Pulse Resp BP Pulse Ox 11/26/17 17:13 74 15 96 11/26/17 17:09 177/147 11/26/17 17:03 98 F 80 14 92 - Laboratory Lab Results: Lab Results 11/26/17 11/26/17 11/26/17 Range/Units 17:00 17:00 17:00 WBC 6.1 (3.5-10.8) 10^3/ul RBC 3.60 L (4.0-5.4) 10^6/ul Hgb 10.3 L (14.0-18.0) g/dl Hct 32 L (42-52) % MCV 88 (80-94) fL MCH 29 (27-31) pg MCHC 33 (31-36) g/dl RDW 18 H (10.5-15) % Plt Count 147 L (150-450) 10^3/ul MPV 7 L (7.4-10.4) um3 Neut % (Auto) 65.6 (38-83) % Lymph % (Auto) 12.7 L (25-47) % [place] % (Auto) 19.3 H (1-9) % Eos % (Auto) 1.2 (0-6) % Baso % (Auto) 1.2 (0-2) % Absolute Neuts (auto) 4.0 (1.5-7.7) 10^3/ul Absolute Lymphs (auto) 0.8 L (1.0-4.8) 10^3/ul Absolute Monos (auto) 1.2 H (0-0.8) 10^3/ul Absolute Eos (auto) 0.1 (0-0.6) 10^3/ul Absolute Basos (auto) 0.1 (0-0.2) 10^3/ul Absolute Nucleated RBC 0 10^3/ul Nucleated RBC % 0 INR (Anticoag Therapy) 2.07 H (0.77-1.02) APTT 47.4 H (26.0-36.3) seconds Sodium 138 D (133-145) mmol/L Potassium 5.1 H (3.5-5.0) mmol/L Chloride 96 L (101-111) mmol/L Carbon Dioxide 28 (22-32) mmol/L Anion Gap 14 H (2-11) mmol/L BUN 63 H (6-24) mg/dL Creatinine 11.96 H (0.67-1.17) mg/dL Est GFR ( Amer) 5.5 (>60) Est GFR (Non-Af Amer) 4.3 (>60) BUN/Creatinine Ratio 5.3 L (8-20) Glucose 81 (70-100) mg/dL Lactic Acid (0.5-2.0) mmol/L Calcium 8.4 L (8.6-10.3) mg/dL Magnesium 2.7 (1.9-2.7) mg/dL Total Bilirubin 0.50 (0.2-1.0) mg/dL AST 33 (13-39) U/L ALT 26 (7-52) U/L Alkaline Phosphatase 72 (34-104) U/L Troponin I 0.08 H* (<0.04) ng/mL Total Protein 7.9 (6.4-8.9) g/dL Albumin 4.1 (3.2-5.2) g/dL Globulin 3.8 (2-4) g/dL Albumin/Globulin Ratio 1.1 (1-3) TSH 1.19 (0.34-5.60) mcIU/mL Serum Alcohol < 10 (<10) mg/dL 11/26/17 Range/Units 17:00 WBC (3.5-10.8) 10^3/ul RBC (4.0-5.4) 10^6/ul Hgb (14.0-18.0) g/dl Hct (42-52) % MCV (80-94) fL MCH (27-31) pg MCHC (31-36) g/dl RDW (10.5-15) % Plt Count (150-450) 10^3/ul MPV (7.4-10.4) um3 Neut % (Auto) (38-83) % Lymph % (Auto) (25-47) % [place] % (Auto) (1-9) % Eos % (Auto) (0-6) % Baso % (Auto) (0-2) % Absolute Neuts (auto) (1.5-7.7) 10^3/ul Absolute Lymphs (auto) (1.0-4.8) 10^3/ul Absolute Monos (auto) (0-0.8) 10^3/ul Absolute Eos (auto) (0-0.6) 10^3/ul Absolute Basos (auto) (0-0.2) 10^3/ul Absolute Nucleated RBC 10^3/ul Nucleated RBC % INR (Anticoag Therapy) (0.77-1.02) APTT (26.0-36.3) seconds Sodium (133-145) mmol/L Potassium (3.5-5.0) mmol/L Chloride (101-111) mmol/L Carbon Dioxide (22-32) mmol/L Anion Gap (2-11) mmol/L BUN (6-24) mg/dL Creatinine (0.67-1.17) mg/dL Est GFR ( Amer) (>60) Est GFR (Non-Af Amer) (>60) BUN/Creatinine Ratio (8-20) Glucose (70-100) mg/dL Lactic Acid 1.2 (0.5-2.0) mmol/L Calcium (8.6-10.3) mg/dL Magnesium (1.9-2.7) mg/dL Total Bilirubin (0.2-1.0) mg/dL AST (13-39) U/L ALT (7-52) U/L Alkaline Phosphatase (34-104) U/L Troponin I (<0.04) ng/mL Total Protein (6.4-8.9) g/dL Albumin (3.2-5.2) g/dL Globulin (2-4) g/dL Albumin/Globulin Ratio (1-3) TSH (0.34-5.60) mcIU/mL Serum Alcohol (<10) mg/dL Result Diagrams: 11/26/17 17:00 11/26/17 17:00 Lab Statement: Any lab studies that have been ordered have been reviewed, and results considered in the medical decision making process. - CT CT Brain CT Interpretation: No Acute Changes - No acute intracranial pathology. Dr. Reyes has reviewed this report. CT Interpretation Completed By: Radiologist - EKG 17:05 Cardiac Rate: NL - at 75 BPM EKG Rhythm: Sinus Rhythm EKG Interpretation: TWI in leads I, II, AVL, and V4-V6, which is changed from EKG on 11/19/17. Complex Multi-Symp Course/Dx Assessment/Plan: The patient is a 67 year old male presenting with shortness of breath. The patient was coming out a store prior to arrival and he was having weakness in his legs, which caused him to fall down. Since then, the patient has been having difficulty ambulating. The patient got here but does not know what happened until he was in the emergency department for some time. He is nonresponsive but he does follow commands. He has a myoclonic jerk in his upper and lower extremities. Test results show a slight anemia and CRF. CT Head shows no acute intracranial pathology. In the ED course, the patient was with altered mental status initially, possibly secondary to a seizure. At this point , I am unable to determine the etiology of the altered mental status. However, right now the patient is alert and oriented x3 and he is hypertensive. The patient will be signed out to Dr. Ponce to do the admission to the hospitalists because Dr. White is in an emergency at the moment. - Diagnoses Provider Diagnoses: Altered mental status vs seizures, Uncontrolled hypertension Discharge - Discharge Plan Condition: Fair Disposition: OTHER Discharge Disposition Comment: Sign out to Dr. Ponce to do the admission. Referrals: Marielena Vargas MD [Primary Care Provider] - The documentation as recorded by the Higinio casey Thomas accurately reflects the service I personally performed and the decisions made by , Oskar Reyes MD.
[2017-11-28] MEDS: Atorvastatin* 10 MG TAB PO SCH (08:43)
[2017-11-28] MEDS: Isosorbide Mononitrate ER TAB* 60 MG PO SCH (08:43)
[2017-11-28 09:18] LABS: INR 1.94 (0.77-1.02)
[2017-11-28] MEDS: Sodium Polystyrene ORAL.SOL* 15 GM/60 ML BTL PO SCH (09:18)
--- NOTE | 2017-11-28 11:22 | PN ---
Subjective Date of Service: 11/28/17 Interval History: Pt c/o L flank pain, received po oxycodone 20 mg at 0842 hrs today. No change in his bowels. Objective Active Medications: Albuterol (Ventolin Hfa Inhaler*) 2 puff INH Q4H PRN PRN Reason: SHORTNESS OF BREATH Last Admin: 11/28/17 04:31 Dose: 2 puff Atorvastatin Calcium (Lipitor*) 5 mg PO DAILY [facility] Last Admin: 11/28/17 08:43 Dose: 5 mg Carvedilol (Coreg Tab*) 25 mg PO BID WITH MEALS [facility] Last Admin: 11/28/17 08:42 Dose: 25 mg Cinacalcet (Sensipar Tab*) 30 mg PO DAILY [facility] Last Admin: 11/28/17 08:42 Dose: 30 mg Citalopram Hydrobromide (Celexa Tab*) 10 mg PO DAILY [facility] Last Admin: 11/28/17 08:41 Dose: 10 mg Famotidine (Pepcid Tab*) 20 mg PO DAILY [facility] PRN Reason: Protocol Last Admin: 11/28/17 08:42 Dose: 20 mg Gabapentin (Neurontin Cap(*)) 300 mg PO TID [facility] Last Admin: 11/28/17 08:41 Dose: 300 mg Hydralazine HCl (Apresoline Tab*) 25 mg PO TID [facility] Last Admin: 11/28/17 08:42 Dose: 25 mg Isosorbide Mononitrate (Imdur Er Tab*) 60 mg PO DAILY [facility] Last Admin: 11/28/17 08:43 Dose: 60 mg Lisinopril (Prinivil Tab*) 10 mg PO DAILY [facility] Last Admin: 11/28/17 08:41 Dose: 10 mg Minoxidil (Loniten Tab*) 5 mg PO DAILY [facility] Last Admin: 11/28/17 08:42 Dose: 5 mg Ondansetron HCl (Zofran Inj*) 4 mg IV Q6H PRN PRN Reason: NAUSEA Oxycodone HCl (Roxycodone Tab*) 20 mg PO Q4H PRN PRN Reason: PAIN Last Admin: 11/28/17 08:42 Dose: 20 mg Pancrelipase (Zenpep Delayed Cap*) 10,000 units PO QID [facility] Last Admin: 02/10/18 08:42 Dose: 10,000 units Simethicone (Mylicon Tab*) 80 mg PO Q6H PRN PRN Reason: DYSPEPSIA Sodium Polystyrene Sulfonate (Kayexalate Oral.Joanna*) 15 gm PO DAILY [facility] Last Admin: 11/28/17 09:18 Dose: Not Given Warfarin Sodium (Coumadin Tab(*)) 5 mg PO 1700 SO PRN Reason: Protocol Last Admin: 11/27/17 16:38 Dose: 5 mg Vital Signs - 8 hr 11/28/17 11/28/17 11/28/17 03:37 08:39 08:41 Temperature 98.7 F 98.3 F Pulse Rate 79 68 Respiratory 14 18 18 Rate Blood Pressure 135/66 131/74 (mmHg) O2 Sat by Pulse 95 100 Oximetry 11/28/17 08:42 Temperature Pulse Rate Respiratory 18 Rate Blood Pressure (mmHg) O2 Sat by Pulse Oximetry Oxygen Devices in Use Now: Nasal Cannula Appearance: Alert, partly up in bed. Holding his L flank, appears uncomfortable Eyes: No Scleral Icterus Abdominal: NL Sounds; No Tenderness; No Distention, No Hepatosplenomegaly, - - some L flank tenderness Extremities: No Edema, No Clubbing, Cyanosis, - Skin: No Rash or Ulcers, No Nodules or Sclerosis, - Neurological: Alert and Oriented x 3, NL Sensation Result Diagrams: 11/27/17 05:54 11/27/17 05:54 Additional Lab and Data: Lab Results 11/26/17 11/26/17 11/26/17 Range/Units 17:00 17:00 17:00 WBC 6.1 (3.5-10.8) 10^3/ul RBC 3.60 L (4.0-5.4) 10^6/ul Hgb 10.3 L (14.0-18.0) g/dl Hct 32 L (42-52) % MCV 88 (80-94) fL MCH 29 (27-31) pg MCHC 33 (31-36) g/dl RDW 18 H (10.5-15) % Plt Count 147 L (150-450) 10^3/ul MPV 7 L (7.4-10.4) um3 Neut % (Auto) 65.6 (38-83) % Lymph % (Auto) 12.7 L (25-47) % [place] % (Auto) 19.3 H (1-9) % Eos % (Auto) 1.2 (0-6) % Baso % (Auto) 1.2 (0-2) % Absolute Neuts (auto) 4.0 (1.5-7.7) 10^3/ul Absolute Lymphs (auto) 0.8 L (1.0-4.8) 10^3/ul Absolute Monos (auto) 1.2 H (0-0.8) 10^3/ul Absolute Eos (auto) 0.1 (0-0.6) 10^3/ul Absolute Basos (auto) 0.1 (0-0.2) 10^3/ul Absolute Nucleated RBC 0 10^3/ul Nucleated RBC % 0 INR (Anticoag Therapy) 2.07 H (0.77-1.02) APTT 47.4 H (26.0-36.3) seconds Sodium 138 D (133-145) mmol/L Potassium 5.1 H (3.5-5.0) mmol/L Chloride 96 L (101-111) mmol/L Carbon Dioxide 28 (22-32) mmol/L Anion Gap 14 H (2-11) mmol/L BUN 63 H (6-24) mg/dL Creatinine 11.96 H (0.67-1.17) mg/dL Est GFR ( Amer) 5.5 (>60) Est GFR (Non-Af Amer) 4.3 (>60) BUN/Creatinine Ratio 5.3 L (8-20) Glucose 81 (70-100) mg/dL Lactic Acid (0.5-2.0) mmol/L Calcium 8.4 L (8.6-10.3) mg/dL Magnesium 2.7 (1.9-2.7) mg/dL Total Bilirubin 0.50 (0.2-1.0) mg/dL AST 33 (13-39) U/L ALT 26 (7-52) U/L Alkaline Phosphatase 72 (34-104) U/L Troponin I 0.08 H* (<0.04) ng/mL Total Protein 7.9 (6.4-8.9) g/dL Albumin 4.1 (3.2-5.2) g/dL Globulin 3.8 (2-4) g/dL Albumin/Globulin Ratio 1.1 (1-3) TSH 1.19 (0.34-5.60) mcIU/mL Serum Alcohol < 10 (<10) mg/dL 11/26/17 Range/Units 17:00 WBC (3.5-10.8) 10^3/ul RBC (4.0-5.4) 10^6/ul Hgb (14.0-18.0) g/dl Hct (42-52) % MCV (80-94) fL MCH (27-31) pg MCHC (31-36) g/dl RDW (10.5-15) % Plt Count (150-450) 10^3/ul MPV (7.4-10.4) um3 Neut % (Auto) (38-83) % Lymph % (Auto) (25-47) % [place] % (Auto) (1-9) % Eos % (Auto) (0-6) % Baso % (Auto) (0-2) % Absolute Neuts (auto) (1.5-7.7) 10^3/ul Absolute Lymphs (auto) (1.0-4.8) 10^3/ul Absolute Monos (auto) (0-0.8) 10^3/ul Absolute Eos (auto) (0-0.6) 10^3/ul Absolute Basos (auto) (0-0.2) 10^3/ul Absolute Nucleated RBC 10^3/ul Nucleated RBC % INR (Anticoag Therapy) (0.77-1.02) APTT (26.0-36.3) seconds Sodium (133-145) mmol/L Potassium (3.5-5.0) mmol/L Chloride (101-111) mmol/L Carbon Dioxide (22-32) mmol/L Anion Gap (2-11) mmol/L BUN (6-24) mg/dL Creatinine (0.67-1.17) mg/dL Est GFR ( Amer) (>60) Est GFR (Non-Af Amer) (>60) BUN/Creatinine Ratio (8-20) Glucose (70-100) mg/dL Lactic Acid 1.2 (0.5-2.0) mmol/L Calcium (8.6-10.3) mg/dL Magnesium (1.9-2.7) mg/dL Total Bilirubin (0.2-1.0) mg/dL AST (13-39) U/L ALT (7-52) U/L Alkaline Phosphatase (34-104) U/L Troponin I (<0.04) ng/mL Total Protein (6.4-8.9) g/dL Albumin (3.2-5.2) g/dL Globulin (2-4) g/dL Albumin/Globulin Ratio (1-3) TSH (0.34-5.60) mcIU/mL Serum Alcohol (<10) mg/dL Assess/Plan/Problems-Billing Assessment: - Patient Problems (1) ESRF (end stage renal failure) Current Visit: No Status: Acute Code(s): N18.6 - END STAGE RENAL DISEASE SNOMED Code(s): 90505330 Comment: Continue HD MWF, cinacalcet. Pt refuses Kayexalate. (2) Hypertension Current Visit: No Status: Chronic Priority: High Code(s): I10 - ESSENTIAL (PRIMARY) HYPERTENSION SNOMED Code(s): 67164662 Comment: Lisinopril increased to 10 mg bid on 11/20/17. Diltiazem may have caused unacceptable bradycardia. BP better since minoxidil started 11/27. Continue lisinopril, carvedilol, hydralazine, nitrate, minoxidil. All BP's her are done at his ankle. In the dialysis clinic they are done at his Left wrist. (3) Cardiomyopathy Current Visit: No Status: Chronic Code(s): I42.9 - CARDIOMYOPATHY, UNSPECIFIED SNOMED Code(s): 47902631 Comment: LVEF 40-45 % on TTE 11/13/16. Continue lisinopril, carvedilol, hydralazine, nitrate. (4) Leg pain Current Visit: Yes Status: Acute Comment: Patient first requested IV MS, then requested large dose oxycodone. 20 mg q 4 hr PRN ordered. Pt refused APAP. ?? med effect. Citalopram and gabapnetin doses reduced. (5) Left flank pain Current Visit: Yes Status: Acute Code(s): R10.9 - UNSPECIFIED ABDOMINAL PAIN SNOMED Code(s): 585433081 Comment: US L kidney/ureter ordered. (6) Acute thrombosis of deep vein of right upper extremity Current Visit: Yes Status: Acute Code(s): I82.621 - ACUTE EMBOLISM AND THROMBOSIS OF DEEP VEINS OF R UP EXTREM SNOMED Code(s): 272586262600138 Comment: INR 1.94 on 11/28. INR ordered for 11/30. Continue warfarin.
[2017-11-28] MEDS ORDERED: Gabapentin CAP(*) 300 MG PO SCH (11:39)
[2017-11-28] MEDS: Simethicone TAB* 80 MG TAB.CHEW PO PRN (11:46)
[2017-11-28] MEDS: Ondansetron INJ* 2 MG/ML VIAL IV PRN (11:46)
--- NOTE | 2017-11-28 13:19 | RAD ---
Indication: Bilateral leg pain. Comparison: November 23, 2017 Technique: AP pelvis. Report: No pelvic fracture or joint diastases evident. Normal alignment of the hips in the AP projection. Only minimal arthropathic osteophytic lipping at the hips. Unremarkable soft tissue contours. Peripheral vascular calcifications. IMPRESSION: No radiographic evidence for an acute pathologic process at the pelvis.
--- NOTE | 2017-11-28 13:22 | RAD ---
Indication: Bilateral lower extremity pain. Comparison: January 09, 2009 LEFT knee radiographs. Technique: AP and cross table lateral views of the knees. Report: Normal articular alignment. Physiologic small volume of fluid noted at the superior joint recess is without suggestion of significant joint effusions. Negative for fracture. Preserved joint spaces. Peripheral vascular calcifications. Unremarkable soft tissue contours. IMPRESSION: Evidence for peripheral vascular disease. Otherwise unremarkable limited bilateral knee radiographs.
--- NOTE | 2017-11-28 13:43 | EEG ---
ELECTROENCEPHALOGRAPHY: DATE OF STUDY: 11/27/17 LOCATION: He is in room 412. REFERRING PHYSICIAN: Dr. Azevedo. CLINICAL PROBLEM: The patient is on dialysis with generalized twitching and shaking. Extensive medication list includes Coumadin, Prinivil, Imdur, gabapentin, Celexa, Lipitor, Roxicodone, Coreg. REPORT: This 16-channel EEG is remarkable for background activity consisting of abundant beta activity of fairly high voltage. A low abundance alpha rhythm is seen intermittently just barely approaching 8 cycles per second occipitally. Vertex slowing and vertex sharp waves are seen frequently. Muscle and movement artifact was also seen frequently. Very high frequency spikes are seen diffusely at times consistent with some type of artifact. Spikes are sometimes paired with central slow waves but appeared to be coincidental and not true spike and wave discharges. The patient has head twitches intermittently during the recording producing additional movement artifact. CLINICAL IMPRESSION: Abnormal EEG due to generalized disorganization, slowing, and excessive beta rhythms consistent with diffuse cerebral dysfunction and possible drug effect. There is no clearly defined epileptiform discharges during this recording. [id number]/[facility] #: [id number] [facility]
--- NOTE | 2017-11-28 14:03 | RAD ---
Indication: LEFT flank pain. Known atrophic kidneys. Comparison: October 21, 2017 CT. Technique: LEFT renal fossa ultrasound. Report: 13.1 cm mildly enlarged spleen. No perisplenic fluid evident. The LEFT kidney is not visualized with bowel gas limiting assessment. IMPRESSION: The atrophic LEFT kidney as documented on October 21, 2017 CT could not be visualized with bowel gas limiting assessment.
[2017-11-28] MEDS: Gabapentin CAP(*) 100 MG PO SCH ×2 (15:40→21:00)
[2017-11-28] MEDS: Warfarin TAB(*) 5 MG PO SCH (18:25)
[2017-11-29 08:18] LABS: ABS Basophils 0 10^3/ul (0-0.2); ABS Eosinophils 0.1 10^3/ul (0-0.6); ABS Lymphocytes 0.8 10^3/ul (1.0-4.8); ABS Neutrophils 2.7 10^3/ul (1.5-7.7); ABS Nucleated RBC 0 10^3/ul; Eosinophil % 2.3 % (0-6); Hematocrit 29 % (42-52); Hemoglobin 9.9 g/dl (14.0-18.0); Lymphocyte % 16.8 % (25-47); Mean Corpuscular HGB Conc 34 g/dl (31-36); Mean Corpuscular Hemoglobin 29 pg (27-31); Mean Corpuscular Volume 87 fL (80-94); Mean Platelet Volume 8 um3 (7.4-10.4); Nucleated Red Blood Cells % 0; Platelet Count 104 10^3/ul (150-450); Red Blood Count 3.38 10^6/ul (4.0-5.4); Red Cell Distribution Width 18 % (10.5-15); White Blood Count 4.7 10^3/ul (3.5-10.8)
[2017-11-29] MEDS: oxyCODONE TAB* 5 MG TAB PO PRN (09:21)
[2017-11-29] MEDS: Pancrelipase CAP* 5,000 UNITS CAP PO SCH ×4 (09:21→21:41)
[2017-11-29] MEDS: Gabapentin CAP(*) 100 MG PO SCH ×4 (09:22→21:41)
[2017-11-29] MEDS: Famotidine TAB* 20 MG PO SCH ×2 (09:22→14:28)
[2017-11-29] MEDS: Cinacalcet TAB* 30 MG PO SCH ×2 (09:22→14:35)
[2017-11-29] MEDS: MinoXIDil TAB* 2.5 MG TAB PO SCH ×2 (09:22→14:28)
[2017-11-29] MEDS: Sodium Polystyrene ORAL.SOL* 15 GM/60 ML BTL PO SCH (09:23)
[2017-11-29] MEDS: Ondansetron INJ* 2 MG/ML VIAL IV PRN ×2 (09:42→20:02)
[2017-11-29] MEDS: Simethicone TAB* 80 MG TAB.CHEW PO PRN (09:43)
[2017-11-29] MEDS: Carvedilol TAB* 25 MG PO SCH ×2 (12:00→18:19)
[2017-11-29] MEDS: Isosorbide Mononitrate ER TAB* 60 MG PO SCH (12:00)
[2017-11-29] MEDS: Citalopram TAB* 10 MG PO SCH (12:00)
[2017-11-29] MEDS: Lisinopril TAB* 10 MG PO SCH (12:00)
[2017-11-29] MEDS: hydrALAZINE TAB* 25 MG PO SCH ×3 (12:00→21:41)
[2017-11-29] MEDS: Atorvastatin* 10 MG TAB PO SCH (12:00)
[2017-11-29] MEDS ORDERED: oxyCODONE TAB* 5 MG TAB PO PRN (12:38)
--- NOTE | 2017-11-29 16:37 | PN ---
Subjective Date of Service: 11/29/17 Interval History: Feels "crappy" Abdomen hurts and legs hurt but says this is usual for him Objective Active Medications: Albuterol (Ventolin Hfa Inhaler*) 2 puff INH Q4H PRN PRN Reason: SHORTNESS OF BREATH Last Admin: 11/28/17 04:31 Dose: 2 puff Atorvastatin Calcium (Lipitor*) 5 mg PO DAILY [facility] Last Admin: 11/29/17 12:00 Dose: 5 mg Carvedilol (Coreg Tab*) 25 mg PO BID WITH MEALS [facility] Last Admin: 11/29/17 12:00 Dose: 25 mg Cinacalcet (Sensipar Tab*) 30 mg PO DAILY [facility] Last Admin: 11/29/17 14:35 Dose: Not Given Citalopram Hydrobromide (Celexa Tab*) 10 mg PO DAILY [facility] Last Admin: 11/29/17 12:00 Dose: 10 mg Famotidine (Pepcid Tab*) 20 mg PO DAILY [facility] PRN Reason: Protocol Last Admin: 11/29/17 14:28 Dose: Not Given Gabapentin (Neurontin Cap(*)) 200 mg PO TID [facility] Last Admin: 11/29/17 14:27 Dose: Not Given Hydralazine HCl (Apresoline Tab*) 25 mg PO TID [facility] Last Admin: 11/29/17 14:50 Dose: Not Given Isosorbide Mononitrate (Imdur Er Tab*) 60 mg PO DAILY [facility] Last Admin: 11/29/17 12:00 Dose: 60 mg Lisinopril (Prinivil Tab*) 10 mg PO DAILY [facility] Last Admin: 11/29/17 12:00 Dose: 10 mg Minoxidil (Loniten Tab*) 5 mg PO DAILY [facility] Last Admin: 11/29/17 14:28 Dose: Not Given Ondansetron HCl (Zofran Inj*) 4 mg IV Q6H PRN PRN Reason: NAUSEA Last Admin: 11/29/17 09:42 Dose: 4 mg Oxycodone HCl (Roxycodone Tab*) 15 mg PO Q8H PRN PRN Reason: PAIN Pancrelipase (Zenpep Delayed Cap*) 10,000 units PO QID [facility] Last Admin: 11/29/17 14:27 Dose: Not Given Simethicone (Mylicon Tab*) 80 mg PO Q6H PRN PRN Reason: DYSPEPSIA Last Admin: 11/29/17 09:43 Dose: 80 mg Sodium Polystyrene Sulfonate (Kayexalate Oral.Joanna*) 15 gm PO DAILY SO Last Admin: 11/29/17 09:23 Dose: Not Given Warfarin Sodium (Coumadin Tab(*)) 5 mg PO 1700 SO PRN Reason: Protocol Last Admin: 11/28/17 18:25 Dose: 5 mg Vital Signs - 8 hr 11/29/17 11/29/17 11/29/17 09:21 12:33 14:54 Temperature 99.0 F Pulse Rate 60 Respiratory 18 19 18 Rate Blood Pressure 163/86 (mmHg) O2 Sat by Pulse 100 Oximetry 11/29/17 15:43 Temperature 98.5 F Pulse Rate 64 Respiratory 12 Rate Blood Pressure 146/89 (mmHg) O2 Sat by Pulse 97 Oximetry Oxygen Devices in Use Now: Nasal Cannula Appearance: NAD Eyes: No Scleral Icterus, PERRLA Ears/Nose/Mouth/Throat: Clear Oropharnyx, Mucous Membranes Moist Neck: NL Appearance and Movements; NL JVP, Trachea Midline Respiratory: Symmetrical Chest Expansion and Respiratory Effort Cardiovascular: RRR Abdominal: - - TTP throughout Neurological: Alert and Oriented x 3 Result Diagrams: 11/29/17 08:09 11/27/17 05:54 Additional Lab and Data: Lab Results 11/26/17 11/26/17 11/26/17 Range/Units 17:00 17:00 17:00 WBC 6.1 (3.5-10.8) 10^3/ul RBC 3.60 L (4.0-5.4) 10^6/ul Hgb 10.3 L (14.0-18.0) g/dl Hct 32 L (42-52) % MCV 88 (80-94) fL MCH 29 (27-31) pg MCHC 33 (31-36) g/dl RDW 18 H (10.5-15) % Plt Count 147 L (150-450) 10^3/ul MPV 7 L (7.4-10.4) um3 Neut % (Auto) 65.6 (38-83) % Lymph % (Auto) 12.7 L (25-47) % [place] % (Auto) 19.3 H (1-9) % Eos % (Auto) 1.2 (0-6) % Baso % (Auto) 1.2 (0-2) % Absolute Neuts (auto) 4.0 (1.5-7.7) 10^3/ul Absolute Lymphs (auto) 0.8 L (1.0-4.8) 10^3/ul Absolute Monos (auto) 1.2 H (0-0.8) 10^3/ul Absolute Eos (auto) 0.1 (0-0.6) 10^3/ul Absolute Basos (auto) 0.1 (0-0.2) 10^3/ul Absolute Nucleated RBC 0 10^3/ul Nucleated RBC % 0 INR (Anticoag Therapy) 2.07 H (0.77-1.02) APTT 47.4 H (26.0-36.3) seconds Sodium 138 D (133-145) mmol/L Potassium 5.1 H (3.5-5.0) mmol/L Chloride 96 L (101-111) mmol/L Carbon Dioxide 28 (22-32) mmol/L Anion Gap 14 H (2-11) mmol/L BUN 63 H (6-24) mg/dL Creatinine 11.96 H (0.67-1.17) mg/dL Est GFR ( Amer) 5.5 (>60) Est GFR (Non-Af Amer) 4.3 (>60) BUN/Creatinine Ratio 5.3 L (8-20) Glucose 81 (70-100) mg/dL Lactic Acid (0.5-2.0) mmol/L Calcium 8.4 L (8.6-10.3) mg/dL Magnesium 2.7 (1.9-2.7) mg/dL Total Bilirubin 0.50 (0.2-1.0) mg/dL AST 33 (13-39) U/L ALT 26 (7-52) U/L Alkaline Phosphatase 72 (34-104) U/L Troponin I 0.08 H* (<0.04) ng/mL Total Protein 7.9 (6.4-8.9) g/dL Albumin 4.1 (3.2-5.2) g/dL Globulin 3.8 (2-4) g/dL Albumin/Globulin Ratio 1.1 (1-3) TSH 1.19 (0.34-5.60) mcIU/mL Serum Alcohol < 10 (<10) mg/dL 11/26/17 Range/Units 17:00 WBC (3.5-10.8) 10^3/ul RBC (4.0-5.4) 10^6/ul Hgb (14.0-18.0) g/dl Hct (42-52) % MCV (80-94) fL MCH (27-31) pg MCHC (31-36) g/dl RDW (10.5-15) % Plt Count (150-450) 10^3/ul MPV (7.4-10.4) um3 Neut % (Auto) (38-83) % Lymph % (Auto) (25-47) % [place] % (Auto) (1-9) % Eos % (Auto) (0-6) % Baso % (Auto) (0-2) % Absolute Neuts (auto) (1.5-7.7) 10^3/ul Absolute Lymphs (auto) (1.0-4.8) 10^3/ul Absolute Monos (auto) (0-0.8) 10^3/ul Absolute Eos (auto) (0-0.6) 10^3/ul Absolute Basos (auto) (0-0.2) 10^3/ul Absolute Nucleated RBC 10^3/ul Nucleated RBC % INR (Anticoag Therapy) (0.77-1.02) APTT (26.0-36.3) seconds Sodium (133-145) mmol/L Potassium (3.5-5.0) mmol/L Chloride (101-111) mmol/L Carbon Dioxide (22-32) mmol/L Anion Gap (2-11) mmol/L BUN (6-24) mg/dL Creatinine (0.67-1.17) mg/dL Est GFR ( Amer) (>60) Est GFR (Non-Af Amer) (>60) BUN/Creatinine Ratio (8-20) Glucose (70-100) mg/dL Lactic Acid 1.2 (0.5-2.0) mmol/L Calcium (8.6-10.3) mg/dL Magnesium (1.9-2.7) mg/dL Total Bilirubin (0.2-1.0) mg/dL AST (13-39) U/L ALT (7-52) U/L Alkaline Phosphatase (34-104) U/L Troponin I (<0.04) ng/mL Total Protein (6.4-8.9) g/dL Albumin (3.2-5.2) g/dL Globulin (2-4) g/dL Albumin/Globulin Ratio (1-3) TSH (0.34-5.60) mcIU/mL Serum Alcohol (<10) mg/dL Assess/Plan/Problems-Billing Assessment: 67 yo M h/o ESRD, HTN, CAD, chronic pain p/w SOB then witnessed convulsive episode in ED - Patient Problems (1) Abdominal pain Comment: - Patient with hx chronic abdominal pain. -c/w home dose oxycodone (2) Acute thrombosis of deep vein of right upper extremity Comment: Continue warfarin. INR tomorrow (3) Cardiomyopathy Comment: LVEF 40-45 % on TTE 11/13/16. Continue lisinopril, carvedilol, hydralazine, nitrate. (4) ESRD (end stage renal disease) on dialysis Comment: Continue MWF dialysis. Pt refuses to take kayexalate at home or in the hospital. (5) Hypertension Comment: Lisinopril increased to 10 mg bid on 11/20/17. Diltiazem may have caused unacceptable bradycardia. BP better since minoxidil started 11/27. Continue lisinopril, carvedilol, hydralazine, nitrate, minoxidil. All BP's her are done at his ankle. In the dialysis clinic they are done at his Left wrist.
[2017-11-29] MEDS: Warfarin TAB(*) 5 MG PO SCH (18:18)
[2017-11-30 06:30] LABS: INR 2.38 (0.77-1.02)
[2017-11-30] MEDS: hydrALAZINE TAB* 25 MG PO SCH ×2 (09:06→14:24)
[2017-11-30] MEDS: Pancrelipase CAP* 5,000 UNITS CAP PO SCH ×2 (09:07→12:32)
[2017-11-30] MEDS: Cinacalcet TAB* 30 MG PO SCH (09:07)
[2017-11-30] MEDS: Isosorbide Mononitrate ER TAB* 60 MG PO SCH (09:08)
[2017-11-30] MEDS: Citalopram TAB* 10 MG PO SCH (09:08)
[2017-11-30] MEDS: Carvedilol TAB* 25 MG PO SCH (09:08)
[2017-11-30] MEDS: Famotidine TAB* 20 MG PO SCH (09:09)
[2017-11-30] MEDS: Lisinopril TAB* 10 MG PO SCH (09:10)
[2017-11-30] MEDS: Atorvastatin* 10 MG TAB PO SCH (09:10)
[2017-11-30] MEDS: Gabapentin CAP(*) 100 MG PO SCH ×2 (09:11→14:24)
[2017-11-30] MEDS: Sodium Polystyrene ORAL.SOL* 15 GM/60 ML BTL PO SCH (09:12)
[2017-11-30] MEDS: MinoXIDil TAB* 2.5 MG TAB PO SCH (09:12)
[2017-11-30 09:22] VITALS: BP 153/92
[2017-11-30] MEDS ORDERED: Heparin DIALYSIS ONLY(*) 1,000 UNITS/ML VIAL DIALYSIS ONE (13:00)
[2017-11-30] MEDS ORDERED: Epoetin Alfa* 4,000 UNITS/ML VIAL IV ONE (13:00)
--- NOTE | 2017-11-30 22:56 | DS ---
CC: Dr. Vargas * DISCHARGE SUMMARY: DATE OF ADMISSION: 11/26/17 DATE OF DISCHARGE: 11/30/17 PRIMARY CARE PROVIDER: Marielena Vargas MD PRIMARY DIAGNOSES: 1. Convulsions. 2. Abdominal pain. 3. Leg pain. SECONDARY DIAGNOSES: Include: 1. End-stage renal disease. 2. Hypertension. 3. Coronary artery disease. 4. Chronic pain. 5. History of compensated systolic heart failure. 6. History of venous thromboembolism. 7. Hepatitis C. 8. Anemia of chronic disease. MEDICATIONS ON DISCHARGE: Unchanged from admission except for the addition of minoxidil 5 mg daily. Home medications include: 1. Oxycodone 15 mg 3 times daily. 2. Lidocaine prilocaine patch. 3. Imdur 60 mg daily. 4. Gabapentin 600 mg 3 times daily. 5. Lexapro 10 mg daily. 6. Sensipar 30 mg daily. 7. Carvedilol 25 mg twice daily with meals. 8. Albuterol inhaler every 4 hours as needed. 9. Simvastatin 10 mg daily. 10. Ranitidine 150 mg daily. 11. Pancrelipase 1 cap every 4 hours. 12. Ondansetron 4 mg every 6 hours as needed for nausea. 13. Nitroglycerin sublingual tabs 0.4 mg every 5 minutes up to 3 times as needed for chest pain. 14. Amitiza 24 mcg twice daily. 15. Lisinopril 10 mg daily. 16. Hydralazine 25 mg 3 times daily. 17. Coumadin 5 mg daily. 18. Parul-Dameon Rx 1 tab daily. 19. Sucroferric oxyhydroxide (Velphoro) 1000 mg 3 times a day with meals. 20. Kayexalate 15 g. 21. Minoxidil 5 mg daily. PERTINENT LABORATORY DATA: INR on the day of discharge 2.38. PERTINENT IMAGING: Procedures performed during hospital stay: EEG, impression : Abnormal EEG due to generalized disorganization, slowing and excessive beta rhythms consistent with diffuse cerebral dysfunction and possible drug effect. There are no clearly defined epileptiform discharges during this recording. HISTORY OF PRESENT ILLNESS AND HOSPITAL COURSE: This is a 67-year-old man with a past medical history as outlined in the history of present illness on the day of admission whose presentation to the hospital is not entirely clear as outlined in the history of present illness on the day of admission. It appears that he presented with shortness of breath; however, while awaiting in the emergency room reportedly had an episode of shaking all over and fell to the floor. When evaluated by Dr. Azevedo in the emergency room, he stated he was sleepy and would not participate with the H and P. He was admitted to the hospital, underwent EEG as noted above and had no epileptiform activity. After admitted, the patient indicated that his legs had been weak and that is why he presented to the hospital and they gave out from under him. He did not give the timeline for the development of this weakness. His hospital stay was complicated by abdominal pain as well as lower extremity pain. However, on his home medication on the day of discharge, his lower extremity pain as well as his abdominal pain felt controlled and back to his baseline. He noted that he could not walk on the day of presentation. On the day of discharge, he ambulated around the unit 1 time and was noting that he could go further to both this author and Physical Therapy during the course of his ambulation. He felt back to his baseline and informed his nurse that he would be leaving against the medical advice if his discharge paperwork was not completed by the time he finished dialysis on the day of discharge. Ultimately, it is unclear what precipitated his shaking on the floor. It does seem this is less likely to be a seizure. No urine toxicology was at the time of that event. His pain is consistent with his chronic pain, which was controlled on his chronic medication. No prescriptions were given for his chronic pain. His blood pressure was well controlled with the addition of minoxidil. He can consider increased hydralazine instead of the addition of minoxidil if well controlled. At followup, please; 1. Evaluate for continued resolution of lower extremity pain and weakness. 2. Continue blood pressure management with particular attention to increasing hydralazine versus continuing minoxidil. 3. Continue to follow INRs as you are. Reasons to return to the hospital including but not limited to recurrent or worsening symptoms, chest pain, shortness of breath, nausea, vomiting, lightheadedness, loss of consciousness, near loss of consciousness, weakness, inability to walk, seizure-like activity discussed with the patient. He acknowledged understanding. TIME SPENT: Greater than 60 minutes were spent on discharge of this patient of which greater than half was spent [id number] with the patient. [id number]/[facility] #: [id number] [facility]OCKER HOSPITALJosette
== END 2017-11-30 14:30 | disposition home or self-care (01) | DRG 100 ==
LOC: ED 16:50 → MED 20:38 → OBSVTOIN 11-27 14:08
PROVIDERS: ADMIT Hospitalist; ATTEND Internal Medicine
PROC: 5A1D70Z Performance of Urinary Filtration, Intermittent, Less than 6 Hours Per Day (ICD-10-PCS; principal; 2017-11-27)
PROC: 5A1D70Z Performance of Urinary Filtration, Intermittent, Less than 6 Hours Per Day (ICD-10-PCS; 2017-11-27)
DX: R56.9 Unspecified convulsions (principal); N18.6 End stage renal disease; I13.2 Hypertensive heart and chronic kidney disease with heart failure and with stage 5 chronic kidney disease, or end stage renal disease; I42.9 Cardiomyopathy, unspecified; K86.1 Other chronic pancreatitis; I50.20 Unspecified systolic (congestive) heart failure; R10.9 Unspecified abdominal pain; I25.10 Atherosclerotic heart disease of native coronary artery without angina pectoris; M79.605 Pain in left leg; M79.604 Pain in right leg; M25.552 Pain in left hip; M25.551 Pain in right hip; G89.29 Other chronic pain; B19.20 Unspecified viral hepatitis C without hepatic coma; D63.1 Anemia in chronic kidney disease; I73.9 Peripheral vascular disease, unspecified; K21.9 Gastro-esophageal reflux disease without esophagitis; Z99.2 Dependence on renal dialysis; Z95.810 Presence of automatic (implantable) cardiac defibrillator; Z95.1 Presence of aortocoronary bypass graft; Z88.6 Allergy status to analgesic agent; Z88.8 Allergy status to other drugs, medicaments and biological substances; Z82.49 Family history of ischemic heart disease and other diseases of the circulatory system; Z82.3 Family history of stroke; Z87.891 Personal history of nicotine dependence; Z86.718 Personal history of other venous thrombosis and embolism; Z79.01 Long term (current) use of anticoagulants; E78.5 Hyperlipidemia, unspecified; Z79.891 Long term (current) use of opiate analgesic; Z79.899 Other long term (current) drug therapy
CPT/HCPCS: 36415; 70450; 72170; 76775; 80048; 80053; 80320; 82550; 83605; 83735; 84443; 84484; 85025; 85027; 85610; 85652; 85730; 86140; 90935; 93005; 95819; 99284; A9270-GY; G0257; G0480; J0885; J1644; J2060; J2405

== ENCOUNTER 2017-12-16 12:35 | Emergency (ER) | payer MEDICARE ==
[2017-12-16] MEDS ORDERED: Ondansetron INJ* 2 MG/ML VIAL IV ONE ×2 (13:39→16:14)
[2017-12-16] MEDS ORDERED: Morphine INJ* 4 MG/ML 1 ML CARPUJECT IV ONE ×2 (13:39→16:02)
[2017-12-16] MEDS ORDERED: Morphine INJ* 4 MG/ML 1 ML SYRINGE (NEW SYRINGE VERSION) ONE (14:03)
--- NOTE | 2017-12-16 14:13 | RAD ---
INDICATION: Chest pain COMPARISON: November 23, 2017 TECHNIQUE: An AP portable view obtained at 1346 hours is submitted. FINDINGS: Bones/Soft Tissues: There are no acute bony findings. There is again a left-sided central venous catheter. There is cardiac pacemaker/defibrillator. There are sternotomy with valvular surgery Cardiomediastinal: The cardiomediastinal silhouette is normal in size. Lungs: Mild interstitial congestion demonstrating interval improvement. Pleura: Small bilateral pleural effusions. Other: None IMPRESSION: Mild interstitial congestion with small bilateral pleural effusions with improvement
[2017-12-16 15:09] LABS: ABS Basophils 0 10^3/ul (0-0.2); ABS Eosinophils 0 10^3/ul (0-0.6); ABS Lymphocytes 0.7 10^3/ul (1.0-4.8); ABS Monocytes 0.5 10^3/ul (0-0.8); ABS Neutrophils 2.3 10^3/ul (1.5-7.7); ABS Nucleated RBC 0 10^3/ul; Eosinophil % 1.4 % (0-6); Hematocrit 41 % (42-52); Hemoglobin 13.4 g/dl (14.0-18.0); Lymphocyte % 18.9 % (25-47); Mean Corpuscular HGB Conc 33 g/dl (31-36); Mean Corpuscular Hemoglobin 29 pg (27-31); Mean Corpuscular Volume 89 fL (80-94); Mean Platelet Volume 8 um3 (7.4-10.4); Nucleated Red Blood Cells % 0.1; Platelet Count 119 10^3/ul (150-450); Red Cell Distribution Width 19 % (10.5-15); White Blood Count 3.5 10^3/ul (3.5-10.8)
[2017-12-16 15:28] LABS: INR 2.18 (0.77-1.02)
[2017-12-16 15:34] LABS: EGFR Non-African American 7.2 (>60)
[2017-12-16] MEDS ORDERED: Ondansetron INJ* 2 MG/ML VIAL ONE (16:12)
--- NOTE | 2017-12-16 17:09 | ED ---
Higinio Briones Thomas, scribed for Rafa Reddy MD on 12/16/17 at 1408 . HPI Chest Pain - HPI Summary HPI Summary: The patient is a 67 year old male presenting to the emergency department complaining of chest pain. The pain is located in the center of his chest and is similar to prior episodes of chest pain. He says the pain is constant and severe. He rates the pain 9/10. He is frequently a patient at [facility]. - History of Current Complaint Chief Complaint: EDChestPainROMI Time Seen by Provider: 12/16/17 13:37 Hx Obtained From: Patient Onset/Duration: Still Present Timing: Constant Current Severity: Severe Pain Intensity: 9 Pain Scale Used: 0-10 Numeric Alleviating Factor(s): Nothing Associated Signs and Symptoms: Positive: Chest Pain - Additional Pertinent History Primary Care Physician: YARIEL - Allergy/Home Medications Allergies/Adverse Reactions: Allergies Allergy/AdvReac Type Severity Reaction Status Date / Time hydromorphone Allergy Intermediate Unknown Verified 11/26/17 21:11 Reaction Details aspirin Allergy See Comment Verified 11/26/17 21:11 Home Medications: Home Medications LORazepam TAB(*) [Ativan 1 MG TAB (*)] 1 mg PO BEDTIME PRN 12/16/17 [History Confirmed 12/16/17] Zolpidem TAB* [Ambien TAB*] 10 mg PO BEDTIME PRN 12/16/17 [History Confirmed ] PMH/Surg Hx/FS Hx/Imm Hx Endocrine/Hematology History: Reports: Hx Blood Transfusions, Hx Sickle Cell Disease - Was told had sickle cell at one point but denies, Hx Anemia Denies: Hx Anticoagulant Therapy, Hx Bone Marrow Disease, Hx Diabetes, Hx Thyroid Disease Cardiovascular History: Reports: Hx Angina, Hx Auto Implanted Cardiovert Defib, Hx Congestive Heart Failure, Hx Coronary Artery Disease, Hx Deep Vein Thrombosis , Hx Hypertension, Hx Pacemaker/ICD, Hx Peripheral Vascular Disease, Hx Syncope , Other Cardiovascular Problems/Disorders - cardiomegaly, mitral valve and tricuspid valve repair Denies: Hx Cardiomegaly, Hx Hypercholesterolemia, Hx Myocardial Infarction, Hx Rheumatic Fever, Hx Valvular Heart Disease Respiratory History: Reports: Hx Asthma, Hx Chronic Obstructive Pulmonary Disease (COPD), Hx Pleural Effusion, Hx Pneumonia, Other Respiratory Problems/ Disorders Denies: Hx Pulmonary Edema, Hx Pulmonary Embolism, Hx Sleep Apnea GI History: Reports: Hx Cirrhosis, Hx Gastroesophageal Reflux Disease, Hx Ulcer - peptic ulcer, Other GI Disorders - hep C Denies: Hx Crohn's Disease, Hx Hiatal Hernia, Hx Irritable Bowel, Hx Jaundice History: Reports: Hx Acute Renal Failure, Hx Chronic Renal Failure, Hx Dialysis, Hx Renal Disease, Other Problems/Disorders - end stage renal disease, on dialysis Denies: Hx Kidney Infection, Hx Kidney Stones Musculoskeletal History: Reports: Hx Arthritis, Hx Back Problems - chronic pain , Hx Orthopedic Injury Denies: Hx Rheumatoid Arthritis, Hx Bursitis, Hx Tendonitis, Other Musculoskeletal History Sensory History: Reports: Hx Glaucoma, Hx Vision Problem Denies: Hx Cataracts, Hx Contacts or Glasses, Hx Hearing Aid Opthamlomology History: Reports: Hx Glaucoma, Hx Vision Problem Denies: Hx Cataracts, Hx Contacts or Glasses Neurological History: Reports: Hx Headaches, Hx Migraine, Other Neuro Impairments/Disorders - depression Denies: Hx Dementia, Hx Seizures Psychiatric History: Reports: Hx Anxiety, Hx Depression Denies: Hx Eating Disorder, Hx Panic Disorder, Hx Suicide Attempt, Hx of Violent Episodes Against Others, Hx Substance Abuse - Cancer History Hx Chemotherapy: No Hx Radiation Therapy: No Hx Palliative Cancer Treatment: No - Surgical History Surgery Procedure, Year, and Place: HERNIA REPAIR 2012. APPENDECTOMY 2000. LEFT ARM AV FISTULA/CAD - REMOVED. CABG 1 vessel, mitral & tricuspid valve repair March 02, 2014 AT [facility] CONDITIONAL 5 UPTO 3T. POWER PORT. Mitral and tricuspid valve repair Hx Anesthesia Reactions: No - Immunization History Date of Tetanus Vaccine: 2014 Date of Influenza Vaccine: Fall 2015 Infectious Disease History: No Infectious Disease History: Reports: Hx Hepatitis - Hep C, Hx of Known/ Suspected MRSA, History Other Infectious Disease - Hepatitis C Denies: Hx Clostridium Difficile, Hx Human Immunodeficiency Virus (HIV), Hx Shingles, Hx Tuberculosis, Hx Known/Suspected VRE, Hx Known/Suspected VRSA, Traveled Outside the [place] in Last 30 Days - Family History Known Family History: Positive: Cardiac Disease, Hypertension, Other - CVA - Social History Alcohol Use: None Alcohol Amount: former EtOH abuse Hx Substance Use: Yes Substance Use Type: Reports: Marijuana Substance Use Comment - Amount & Last Used: Daily use "for chronic pain" Hx Tobacco Use: Yes Smoking Status (MU): Former Smoker Type: Cigarettes Amount Used/How Often: 1/2 ppd Length of Time of Smoking/Using Tobacco: 10 years Have You Smoked in the Last Year: No Review of Systems Negative: Fever Positive: Chest Pain All Other Systems Reviewed And Are Negative: Yes Physical Exam - Summary Physical Exam Summary: General: well-appearing, no pain distress Skin: warm, color reflects adequate perfusion, dry Head: normal Eyes: EOMI, KINGS ENT: normal Neck: supple, nontender Respiratory: CTA, breath sounds present Cardiovascular: RRR Abdomen: soft, nontender Bowel: present Musculoskeletal: normal, strength/ROM intact Neurological: normal, sensory/motor intact, A&O x3 Psychological: affect/mood appropriate Triage Information Reviewed: Yes Vital Signs On Initial Exam: Initial Vitals Temp Pulse Resp BP Pulse Ox 98.1 F 72 14 203/114 98 12/16/17 12:48 12/16/17 12:48 12/16/17 12:48 12/16/17 12:48 12/16/17 12:48 Vital Signs Reviewed: Yes Diagnostics - Vital Signs Vital Signs Temp Pulse Resp BP Pulse Ox 12/16/17 13:14 22 12/16/17 13:13 206/122 12/16/17 12:48 98.1 F 72 14 203/114 98 - Laboratory Lab Results: Lab Results 12/16/17 12/16/17 12/16/17 Range/Units 14:59 14:59 14:59 WBC 3.5 (3.5-10.8) 10^3/ul RBC 4.60 (4.0-5.4) 10^6/ul Hgb 13.4 L (14.0-18.0) g/dl Hct 41 L (42-52) % MCV 89 (80-94) fL MCH 29 (27-31) pg MCHC 33 (31-36) g/dl RDW 19 H (10.5-15) % Plt Count 119 L (150-450) 10^3/ul MPV 8 (7.4-10.4) um3 Neut % (Auto) 65.4 (38-83) % Lymph % (Auto) 18.9 L (25-47) % [place] % (Auto) 13.3 H (0-7) % Eos % (Auto) 1.4 (0-6) % Baso % (Auto) 1.0 (0-2) % Absolute Neuts (auto) 2.3 (1.5-7.7) 10^3/ul Absolute Lymphs (auto) 0.7 L (1.0-4.8) 10^3/ul Absolute Monos (auto) 0.5 (0-0.8) 10^3/ul Absolute Eos (auto) 0 (0-0.6) 10^3/ul Absolute Basos (auto) 0 (0-0.2) 10^3/ul Absolute Nucleated RBC 0 10^3/ul Nucleated RBC % 0.1 INR (Anticoag Therapy) 2.18 H (0.77-1.02) APTT 48.7 H (26.0-36.3) seconds Sodium 133 (133-145) mmol/L Potassium 5.2 H (3.5-5.0) mmol/L Chloride 92 L (101-111) mmol/L Carbon Dioxide 30 (22-32) mmol/L Anion Gap 11 (2-11) mmol/L BUN 28 H (6-24) mg/dL Creatinine 7.64 H (0.67-1.17) mg/dL Est GFR ( Amer) 9.2 (>60) Est GFR (Non-Af Amer) 7.2 (>60) BUN/Creatinine Ratio 3.7 L (8-20) Glucose 70 (70-100) mg/dL Lactic Acid (0.5-2.0) mmol/L Calcium 9.6 (8.6-10.3) mg/dL Magnesium 2.3 (1.9-2.7) mg/dL Total Bilirubin 0.60 (0.2-1.0) mg/dL AST 67 H (13-39) U/L ALT 40 (7-52) U/L Alkaline Phosphatase 79 (34-104) U/L Troponin I 0.04 H* (<0.04) ng/mL Total Protein 9.8 H (6.4-8.9) g/dL Albumin 4.8 (3.2-5.2) g/dL Globulin 5.0 H (2-4) g/dL Albumin/Globulin Ratio 1.0 (1-3) TSH 4.79 (0.34-5.60) mcIU/mL 12/16/17 Range/Units 14:59 WBC (3.5-10.8) 10^3/ul RBC (4.0-5.4) 10^6/ul Hgb (14.0-18.0) g/dl Hct (42-52) % MCV (80-94) fL MCH (27-31) pg MCHC (31-36) g/dl RDW (10.5-15) % Plt Count (150-450) 10^3/ul MPV (7.4-10.4) um3 Neut % (Auto) (38-83) % Lymph % (Auto) (25-47) % [place] % (Auto) (0-7) % Eos % (Auto) (0-6) % Baso % (Auto) (0-2) % Absolute Neuts (auto) (1.5-7.7) 10^3/ul Absolute Lymphs (auto) (1.0-4.8) 10^3/ul Absolute Monos (auto) (0-0.8) 10^3/ul Absolute Eos (auto) (0-0.6) 10^3/ul Absolute Basos (auto) (0-0.2) 10^3/ul Absolute Nucleated RBC 10^3/ul Nucleated RBC % INR (Anticoag Therapy) (0.77-1.02) APTT (26.0-36.3) seconds Sodium (133-145) mmol/L Potassium (3.5-5.0) mmol/L Chloride (101-111) mmol/L Carbon Dioxide (22-32) mmol/L Anion Gap (2-11) mmol/L BUN (6-24) mg/dL Creatinine (0.67-1.17) mg/dL Est GFR ( Amer) (>60) Est GFR (Non-Af Amer) (>60) BUN/Creatinine Ratio (8-20) Glucose (70-100) mg/dL Lactic Acid 0.8 (0.5-2.0) mmol/L Calcium (8.6-10.3) mg/dL Magnesium (1.9-2.7) mg/dL Total Bilirubin (0.2-1.0) mg/dL AST (13-39) U/L ALT (7-52) U/L Alkaline Phosphatase (34-104) U/L Troponin I (<0.04) ng/mL Total Protein (6.4-8.9) g/dL Albumin (3.2-5.2) g/dL Globulin (2-4) g/dL Albumin/Globulin Ratio (1-3) TSH (0.34-5.60) mcIU/mL Result Diagrams: 12/16/17 14:59 12/16/17 14:59 Lab Statement: Any lab studies that have been ordered have been reviewed, and results considered in the medical decision making process. - Radiology CXR Xray Interpretation: No Acute Changes - Mild interstitial congestion with small bilateral pleural effusions with improvement. Dr. Reddy has reviewed this report. Radiology Interpretation Completed By: Radiologist - EKG 12:58 Cardiac Rate: NL - at 73 BPM EKG Rhythm: Sinus Rhythm ST Segment: Normal Ectopy: None Chest Pain Course/Dx - Course Course Of Treatment: Medications reviewed. Allergies noted. BP noted and patient urged to follow up with primary care. AFTER PAIN MEDICATION, PAIN IMPROVED. BP STILL ELEVATED. THIS WAS DISCUSSED WITH THE PATIENT. I DISCUSSED THE CASE WITH THE HOSPITALIST, DR SOLIS, WHO RECOMMENDED GIVING HIS PO BP MEDS AND LABETOLOL 10MG IV AND THEN REEVALUATE. I DISCUSSED THIS WITH MR GRANADOS. HE REFUSED ANY BP MEDS IN THE ED, STATED HE HAS HIS BP MEDS AT HOME, WOULD TAKE THEM THERE AND WANTS TO LEAVE THE ED NOW. F/U WITH PMD/DIALYSIS; RETURN IF WORSE. - Diagnoses Provider Diagnoses: Uncontrolled hypertension, End stage chronic kidney disease, Chest pain Discharge - Discharge Plan Condition: Stable Disposition: HOME Patient Education Materials: Chest Pain (ED), Hypertension (ED), End Stage Kidney Disease (ED) Referrals: Marielena Vargas MD [Primary Care Provider] - Jose Eduardo Dalal MD [Medical Doctor] - Additional Instructions: FOLLOW UP WITH YOUR DOCTOR. TAKE YOUR BLOOD PRESSURE MEDICATIONS DIRECTED. RETURN TO THE EMERGENCY DEPARTMENT FOR ANY WORSENING OF YOUR CONDITION OR QUESTIONS OR CONCERNS. YOUR BLOOD PRESSURE WAS ELEVATED TODAY; FOLLOW UP WITH YOUR PRIMARY CARE DOCTOR WITHIN THE NEXT 1 WEEK. The documentation as recorded by the Higinio casey Thomas accurately reflects the service I personally performed and the decisions made by me, Rafa Reddy MD.
[2017-12-16 17:19] VITALS: BP 211/194
== END 2017-12-16 17:20 | disposition home or self-care (01) ==
LOC: ED 12:35
DX: R07.9 Chest pain, unspecified (principal); I12.0 Hypertensive chronic kidney disease with stage 5 chronic kidney disease or end stage renal disease; N18.6 End stage renal disease; Z99.2 Dependence on renal dialysis; R09.89 Other specified symptoms and signs involving the circulatory and respiratory systems; J90 Pleural effusion, not elsewhere classified; Z87.891 Personal history of nicotine dependence
CPT/HCPCS: 36415; 71045; 80053; 83605; 83735; 84443; 84484; 85025; 85610; 85730; 93005; 96374; 96375; 96376; 99285; J2270; J2405

== ENCOUNTER 2017-12-23 09:44 | Emergency (ER) | payer MEDICARE ==
--- NOTE | 2017-12-23 11:05 | RAD ---
INDICATION: RIGHT fourth and fifth metacarpal pain and lump. Dialysis patient. COMPARISON: No relevant prior exams available on the [facility] [place]. TECHNIQUE: AP, lateral, and oblique views RIGHT hand. REPORT: Vascular clips at the radial aspect of the distal forearm and wrist. Peripheral vascular calcifications. Diffuse soft tissue edema. Heterogeneous sclerosis at the head of the fifth metacarpal with partial flattening of the articular surface which may represent sequela previous osteochondral impaction fracture or avascular necrosis. No acute fracture evident. Normal articular alignment. Suggestion of small erosions at the margins of the metacarpal and phalangeal bones. Mild periarticular osteopenia. Negative for significant osteophytosis. Moderate interphalangeal joint space narrowing. IMPRESSION: 1. Negative for acute fracture. 2. Probable sequela of previous osteochondral impaction fracture or avascular necrosis at the fifth metacarpal head. 3. Correlate for potential inflammatory arthropathy/rheumatoid arthritis.
[2017-12-23 11:18] LABS: EGFR Non-African American 6.7 (>60)
[2017-12-23 11:35] LABS: Hematocrit 38 % (42-52); Hemoglobin 12.6 g/dl (14.0-18.0); Mean Corpuscular HGB Conc 33 g/dl (31-36); Mean Corpuscular Hemoglobin 29 pg (27-31); Mean Corpuscular Volume 89 fL (80-94); Red Cell Distribution Width 18 % (10.5-15)
--- NOTE | 2017-12-23 11:56 | RAD ---
INDICATION: Abdominal pain. COMPARISON: Comparison is made with a prior KUB study from November 23, [address] of the abdomen and pelvis from October 21, 2017. TECHNIQUE: Supine and decubitus views of the abdomen were obtained. FINDINGS: The small bowel and colon appear nondistended. No free intraperitoneal air is seen. There are several surgical clips in the right lower quadrant. IMPRESSION: NO EVIDENCE FOR OBSTRUCTION.
[2017-12-23 11:58] LABS: White Blood Count 3.2 10^3/ul (3.5-10.8)
[2017-12-23 12:02] LABS: Platelet Count Platelets clumped. 10^3/ul (150-450)
[2017-12-23 12:25] LABS: Monocytes % 9 % (0-7)
[2017-12-23 12:27] VITALS: BP 211/136
--- NOTE | 2017-12-30 23:38 | ED ---
Sumaya Briones Julia, scribed for Otoniel Nelson MD on 12/23/17 at 1027 . Complex/Multi-Sys Presentation - HPI Summary HPI Summary: This patient is a 67 year old M presenting to [facility] with a chief complaint of constant lower abdominal pain and new right hand edema and pain for the past few days. Patient reports right hand pain at baseline. The patient rates the pain 9/10 in severity. Patient denies trauma to his right hand. Patient denies a history of gout. - History Of Current Complaint Chief Complaint: EDExtremityUpper Time Seen by Provider: 12/23/17 10:12 Hx Obtained From: Patient Onset/Duration: Lasting Days, Still Present Timing: Constant Location: Pain At: - abdomen and R hand Associated Signs And Symptoms: Positive: Edema - R hand, Abdominal Pain Related History: Recent Hospitalization - Allergies/Home Medications Allergies/Adverse Reactions: Allergies Allergy/AdvReac Type Severity Reaction Status Date / Time hydromorphone Allergy Intermediate Unknown Verified 11/26/17 21:11 Reaction Details aspirin Allergy See Comment Verified 11/26/17 21:11 PMH/Surg Hx/FS Hx/Imm Hx Endocrine/Hematology History: Reports: Hx Blood Transfusions, Hx Sickle Cell Disease - Was told had sickle cell at one point but denies, Hx Anemia Denies: Hx Anticoagulant Therapy, Hx Bone Marrow Disease, Hx Diabetes, Hx Thyroid Disease Cardiovascular History: Reports: Hx Angina, Hx Auto Implanted Cardiovert Defib, Hx Congestive Heart Failure, Hx Coronary Artery Disease, Hx Deep Vein Thrombosis , Hx Hypertension, Hx Pacemaker/ICD, Hx Peripheral Vascular Disease, Hx Syncope , Other Cardiovascular Problems/Disorders - cardiomegaly, mitral valve and tricuspid valve repair Denies: Hx Cardiomegaly, Hx Hypercholesterolemia, Hx Myocardial Infarction, Hx Rheumatic Fever, Hx Valvular Heart Disease Respiratory History: Reports: Hx Asthma, Hx Chronic Obstructive Pulmonary Disease (COPD), Hx Pleural Effusion, Hx Pneumonia, Other Respiratory Problems/ Disorders Denies: Hx Pulmonary Edema, Hx Pulmonary Embolism, Hx Sleep Apnea GI History: Reports: Hx Cirrhosis, Hx Gastroesophageal Reflux Disease, Hx Ulcer - peptic ulcer, Other GI Disorders - hep C Denies: Hx Crohn's Disease, Hx Hiatal Hernia, Hx Irritable Bowel, Hx Jaundice History: Reports: Hx Acute Renal Failure, Hx Chronic Renal Failure, Hx Dialysis, Hx Renal Disease, Other Problems/Disorders - end stage renal disease, on dialysis Denies: Hx Kidney Infection, Hx Kidney Stones Musculoskeletal History: Reports: Hx Arthritis, Hx Back Problems - chronic pain , Hx Orthopedic Injury Denies: Hx Rheumatoid Arthritis, Hx Bursitis, Hx Tendonitis, Other Musculoskeletal History Sensory History: Reports: Hx Glaucoma, Hx Vision Problem Denies: Hx Cataracts, Hx Contacts or Glasses, Hx Hearing Aid Opthamlomology History: Reports: Hx Glaucoma, Hx Vision Problem Denies: Hx Cataracts, Hx Contacts or Glasses Neurological History: Reports: Hx Headaches, Hx Migraine, Other Neuro Impairments/Disorders - depression Denies: Hx Dementia, Hx Seizures Psychiatric History: Reports: Hx Anxiety, Hx Depression Denies: Hx Eating Disorder, Hx Panic Disorder, Hx Suicide Attempt, Hx of Violent Episodes Against Others, Hx Substance Abuse - Cancer History Hx Chemotherapy: No Hx Radiation Therapy: No Hx Palliative Cancer Treatment: No - Surgical History Surgery Procedure, Year, and Place: HERNIA REPAIR 2012. APPENDECTOMY 2000. LEFT ARM AV FISTULA/CAD - REMOVED. CABG 1 vessel, mitral & tricuspid valve repair March 02, 2014 AT [facility] CONDITIONAL 5 UPTO 3T. POWER PORT. Mitral and tricuspid valve repair Hx Anesthesia Reactions: No - Immunization History Date of Tetanus Vaccine: 2014 Date of Influenza Vaccine: Fall 2015 Infectious Disease History: Yes Infectious Disease History: Reports: Hx Hepatitis - Hep C, Hx of Known/ Suspected MRSA, History Other Infectious Disease - Hepatitis C Denies: Hx Clostridium Difficile, Hx Human Immunodeficiency Virus (HIV), Hx Shingles, Hx Tuberculosis, Hx Known/Suspected VRE, Hx Known/Suspected VRSA, Traveled Outside the in Last 30 Days - Family History Known Family History: Positive: Cardiac Disease, Hypertension, Other - CVA - Social History Alcohol Use: None Alcohol Amount: former EtOH abuse Hx Substance Use: Yes Substance Use Type: Reports: Marijuana Substance Use Comment - Amount & Last Used: Daily use "for chronic pain" Hx Tobacco Use: Yes Smoking Status (MU): Former Smoker Type: Cigarettes Amount Used/How Often: 1/2 ppd Length of Time of Smoking/Using Tobacco: 10 years Have You Smoked in the Last Year: No Review of Systems Positive: Abdominal Pain Positive: Myalgia - R hand, Edema - R hand All Other Systems Reviewed And Are Negative: Yes Physical Exam - Summary Physical Exam Summary: Appearance: Well appearing, no pain distress Skin: warm, dry, reflects adequate perfusion Head/face: normal Eyes: EOMI, KINGS ENT: normal Neck: supple, non-tender Respiratory: CTA, breath sounds present Cardiovascular: RRR, pulses symmetrical, S1 S2 Abdomen: mild diffuse tenderness, soft, Bowel: present Musculoskeletal:, strength/ROM intact, patent fistula of R arm with present bruit and thrill and mild swelling without erythema, fingers slightly cool to touch on R Neuro: normal, sensory motor intact, A&Ox3 Triage Information Reviewed: Yes Vital Signs On Initial Exam: Initial Vitals Temp Pulse Resp BP Pulse Ox 97.5 F 79 15 195/125 97 12/23/17 09:56 12/23/17 09:56 12/23/17 09:56 12/23/17 09:56 12/23/17 09:56 Vital Signs Reviewed: Yes Diagnostics - Vital Signs Vital Signs Temp Pulse Resp BP Pulse Ox 12/23/17 09:56 97.5 F 79 15 195/125 97 - Laboratory Lab Results: Lab Results 12/23/17 12/23/17 Range/Units 10:49 10:49 WBC 3.2 L (3.5-10.8) 10^3/ul RBC 4.30 (4.0-5.4) 10^6/ul Hgb 12.6 L (14.0-18.0) g/dl Hct 38 L (42-52) % MCV 89 (80-94) fL MCH 29 (27-31) pg MCHC 33 (31-36) g/dl RDW 18 H (10.5-15) % Plt Count Platelets clumped. H (150-450) 10^3/ul MPV Not Reportable Neut % (Auto) Not Reportable Lymph % (Auto) Not Reportable [place] % (Auto) Not Reportable Eos % (Auto) Not Reportable Baso % (Auto) Not Reportable Absolute Neuts (auto) Not Reportable Absolute Lymphs (auto) Not Reportable Absolute Monos (auto) Not Reportable Absolute Eos (auto) Not Reportable Absolute Basos (auto) Not Reportable Absolute Nucleated RBC Not Reportable Neutrophils % 69 (38-83) % Lymphocytes % 19 L (25-47) % Reactive Lymphs % 1 (0-6) % Monocytes % 9 H (0-7) % Eosinophils % 2 (0-6) % Basophils % 0 (0-2) % Nucleated RBC % Not Reportable Abs Neuts (Manual) 2.2 (1.5-7.7) 10^3/ul Abs Monocytes (Manual) 0.3 (0-0.8) 10^3/ul Absolute Eos (Manual) 0.1 (0-0.6) 10^3/ul Abs Basophils (Manual) 0 (0-0.2) 10^3/ul Clumped Platelets Present Normal RBC Morphology Normal (Normal) Sodium 133 (133-145) mmol/L Potassium 4.2 (3.5-5.0) mmol/L Chloride 93 L (101-111) mmol/L Carbon Dioxide 30 (22-32) mmol/L Anion Gap 10 (2-11) mmol/L BUN 32 H (6-24) mg/dL Creatinine 8.15 H (0.67-1.17) mg/dL Est GFR ( Amer) 8.6 (>60) Est GFR (Non-Af Amer) 6.7 (>60) BUN/Creatinine Ratio 3.9 L (8-20) Glucose 88 (70-100) mg/dL Calcium 9.6 (8.6-10.3) mg/dL Total Bilirubin 0.50 (0.2-1.0) mg/dL AST 46 H (13-39) U/L ALT 29 (7-52) U/L Alkaline Phosphatase 73 (34-104) U/L Total Protein 8.8 (6.4-8.9) g/dL Albumin 4.5 (3.2-5.2) g/dL Globulin 4.3 H (2-4) g/dL Albumin/Globulin Ratio 1.0 (1-3) Amylase 134 H (29-103) U/L Lipase 69 (11.0-82.0) U/L Result Diagrams: 12/23/17 10:49 12/23/17 10:49 Lab Statement: Any lab studies that have been ordered have been reviewed, and results considered in the medical decision making process. - Radiology R Hand XR Radiology Interpretation Completed By: Radiologist - 1. Negative for acute fracture. 2. Probable sequela of previous osteochondral impaction fracture or avascular necrosis at the fifth metacarpal head. 3. Correlate for potential inflammatory arthropathy/rheumatoid arthritis. ED Physician has reviewed this report. Abdomen XR Radiology Interpretation Completed By: Radiologist - NO EVIDENCE FOR OBSTRUCTION. ED Physician has reviewed this report. Complex Multi-Symp Course/Dx Course Of Treatment: Patient presents with constant lower abdominal pain and new right hand edema and pain for the past few days. Patient denies trauma to his right hand. Patient is in chronic renal failure. An X-ray of the right hand reveals: 1. Negative for acute fracture. 2. Probable sequela of previous osteochondral impaction fracture or avascular necrosis at the fifth metacarpal head. 3. Correlate for potential inflammatory arthropathy/rheumatoid arthritis, as per radiologist. An abdominal X-ray is unremarkable. Bloodwork is collected and is unremarkable. Abdominal pain is most likely secondary to constipation. Patient is discharged and referred to an orthopedist to follow up with. - Diagnoses Provider Diagnoses: impacted fracture of MCP joint, Abdominal pain, Constipation Discharge - Discharge Plan Condition: Good Disposition: HOME Discharge Disposition Comment: discharge to home Patient Education Materials: Hand Fracture (ED) Referrals: Anuj Tai MD [Medical Doctor] - Marielena Vargas MD [Primary Care Provider] - The documentation as recorded by the Sumaya casey Julia accurately reflects the service I personally performed and the decisions made by , Otoniel Nelson MD.
== END 2017-12-23 12:26 | disposition home or self-care (01) ==
LOC: ED 09:44
DX: S62.306A Unspecified fracture of fifth metacarpal bone, right hand, initial encounter for closed fracture (principal); R10.9 Unspecified abdominal pain; M79.641 Pain in right hand; K59.00 Constipation, unspecified; Z87.19 Personal history of other diseases of the digestive system; Z87.891 Personal history of nicotine dependence; X58.XXXA Exposure to other specified factors, initial encounter; Y92.9 Unspecified place or not applicable
CPT/HCPCS: 36415; 74019; 80053; 82150; 83690; 85025; 99282

== ENCOUNTER 2018-02-09 02:13 | Emergency (ER) | payer MEDICARE, MEDICAID ==
[2018-02-09] MEDS ORDERED: Morphine VIAL* 4 MG/ML VIAL (1 ml vial) IV ONE (02:43)
[2018-02-09] MEDS ORDERED: hydrALAZINE IV* 20 MG/ML VIAL IV SLOW PU ONE ×2 (02:43→04:19)
[2018-02-09] MEDS ORDERED: Ondansetron INJ* 2 MG/ML VIAL IV ONE (03:00)
[2018-02-09] MEDS ORDERED: Ondansetron INJ* 2 MG/ML VIAL ONE (03:01)
[2018-02-09] MEDS ORDERED: LORazepam INJ* 2 MG/ML 1 ML VIAL IV PUSH ONE (04:19)
[2018-02-09] MEDS ORDERED: diPHENhydraMINE IV* 50 MG/ML 1 ml VIAL (BENADRYL) IV ONE (04:21)
[2018-02-09] MEDS ORDERED: Haloperidol INJ IV/IM* 5 MG/ML AMP IV SLOW PU ONE (04:21)
[2018-02-09 04:39] LABS: ABS Basophils 0 10^3/ul (0-0.2); ABS Eosinophils 0.1 10^3/ul (0-0.6); ABS Lymphocytes 0.7 10^3/ul (1.0-4.8); ABS Monocytes 0.5 10^3/ul (0-0.8); ABS Neutrophils 2.2 10^3/ul (1.5-7.7); ABS Nucleated RBC 0 10^3/ul; Eosinophil % 2.6 % (0-6); Hematocrit 28 % (42-52); Hemoglobin 8.9 g/dl (14.0-18.0); Lymphocyte % 20.4 % (25-47); Mean Corpuscular HGB Conc 32 g/dl (31-36); Mean Corpuscular Hemoglobin 30 pg (27-31); Mean Corpuscular Volume 92 fL (80-94); Mean Platelet Volume 8.7 um3 (7.4-10.4); Nucleated Red Blood Cells % 0; Platelet Count 113 10^3/ul (150-450); Red Cell Distribution Width 18 % (10.5-15); White Blood Count 3.5 10^3/ul (3.5-10.8)
[2018-02-09 04:48] LABS: EGFR Non-African American 3.8 (>60)
[2018-02-09] MEDS ORDERED: Sucralfate TAB* 1 GM PO ONE (05:48)
[2018-02-09] MEDS ORDERED: Famotidine TAB* 20 MG PO ONE (05:48)
--- NOTE | 2018-02-09 06:22 | ED ---
Irineo Briones Rebecca, scribed for Keagan Copeland MD on 02/09/18 at 0243 . HPI Chest Pain - HPI Summary HPI Summary: Pt is a 67 y/o M BIBA who presents to ED c/o CP. Pain began at 0130 this morning and is located in the central chest. On triage, pain was severe, ranked 9/10. Pain radiates into the bilateral LE and was unchanged by 2 SL NTG given en route by EMS. Additionally c/o diarrhea and mild SOB. Denies fever, cough. PMHx chronic renal failure with dialysis 3x a week - last treatment was Thursday ( yesterday). While at dialysis yesterday, his systolic BP was 150. - History of Current Complaint Chief Complaint: EDChestPainROMI Time Seen by Provider: 02/09/18 02:22 Hx Obtained From: Patient Onset/Duration: Started Hours Ago, Still Present Time of Onset: 01:30 Current Severity: Severe Pain Intensity: 9 Pain Scale Used: 0-10 Numeric Chest Pain Location: Mid Sternal Aggravating Factor(s): Nothing Alleviating Factor(s): Nothing Associated Signs and Symptoms: Negative: Fever, Cough - Additional Pertinent History Primary Care Physician: YARIEL - Allergy/Home Medications Allergies/Adverse Reactions: Allergies Allergy/AdvReac Type Severity Reaction Status Date / Time aspirin Allergy "Ever Verified 01/13/18 04:47 since i was a boy i was told not to take aspirin" hydromorphone AdvReac Pt states Verified 01/13/18 04:47 "he feels like a junky" PMH/Surg Hx/FS Hx/Imm Hx Endocrine/Hematology History: Reports: Hx Blood Transfusions, Hx Sickle Cell Disease - Was told had sickle cell at one point but denies, Hx Anemia Denies: Hx Anticoagulant Therapy, Hx Bone Marrow Disease, Hx Diabetes, Hx Thyroid Disease Cardiovascular History: Reports: Hx Angina, Hx Auto Implanted Cardiovert Defib, Hx Congestive Heart Failure, Hx Coronary Artery Disease, Hx Deep Vein Thrombosis , Hx Hypertension, Hx Pacemaker/ICD, Hx Peripheral Vascular Disease, Hx Syncope , Other Cardiovascular Problems/Disorders - cardiomegaly, mitral valve and tricuspid valve repair Denies: Hx Cardiomegaly, Hx Hypercholesterolemia, Hx Myocardial Infarction, Hx Rheumatic Fever, Hx Valvular Heart Disease Respiratory History: Reports: Hx Asthma, Hx Chronic Obstructive Pulmonary Disease (COPD), Hx Pleural Effusion, Hx Pneumonia, Other Respiratory Problems/ Disorders Denies: Hx Pulmonary Edema, Hx Pulmonary Embolism, Hx Sleep Apnea GI History: Reports: Hx Cirrhosis, Hx Gastroesophageal Reflux Disease, Hx Ulcer - peptic ulcer, Other GI Disorders - hep C Denies: Hx Crohn's Disease, Hx Hiatal Hernia, Hx Irritable Bowel, Hx Jaundice History: Reports: Hx Acute Renal Failure, Hx Chronic Renal Failure, Hx Dialysis, Hx Renal Disease, Other Problems/Disorders - end stage renal disease, on dialysis Denies: Hx Kidney Infection, Hx Kidney Stones Musculoskeletal History: Reports: Hx Arthritis, Hx Back Problems - chronic pain , Hx Orthopedic Injury Denies: Hx Rheumatoid Arthritis, Hx Bursitis, Hx Tendonitis, Other Musculoskeletal History Sensory History: Reports: Hx Contacts or Glasses, Hx Glaucoma, Hx Vision Problem Denies: Hx Cataracts, Hx Hearing Aid Opthamlomology History: Reports: Hx Contacts or Glasses, Hx Glaucoma, Hx Vision Problem Denies: Hx Cataracts Neurological History: Reports: Hx Headaches, Hx Migraine, Other Neuro Impairments/Disorders - depression Denies: Hx Dementia, Hx Seizures Psychiatric History: Reports: Hx Anxiety, Hx Depression Denies: Hx Eating Disorder, Hx Panic Disorder, Hx Suicide Attempt, Hx of Violent Episodes Against Others, Hx Substance Abuse - Cancer History Hx Chemotherapy: No Hx Radiation Therapy: No Hx Palliative Cancer Treatment: No - Surgical History Surgery Procedure, Year, and Place: HERNIA REPAIR 2012. APPENDECTOMY 2000. LEFT ARM AV FISTULA/CAD - REMOVED. CABG 1 vessel, mitral & tricuspid valve repair March 02, 2014 AT [facility] CONDITIONAL 5 UPTO 3T. POWER PORT. Mitral and tricuspid valve repair Hx Anesthesia Reactions: No - Immunization History Date of Tetanus Vaccine: 2014 Date of Influenza Vaccine: Fall 2015 Infectious Disease History: Yes Infectious Disease History: Reports: Hx Hepatitis - Hep C, Hx of Known/ Suspected MRSA, History Other Infectious Disease - Hepatitis C Denies: Hx Clostridium Difficile, Hx Human Immunodeficiency Virus (HIV), Hx Shingles, Hx Tuberculosis, Hx Known/Suspected VRE, Hx Known/Suspected VRSA, Traveled Outside the [place] in Last 30 Days - Family History Known Family History: Positive: Cardiac Disease, Hypertension, Other - CVA - Social History Alcohol Use: None Alcohol Amount: former EtOH abuse Hx Substance Use: Yes Substance Use Type: Reports: Marijuana Substance Use Comment - Amount & Last Used: for pain Hx Tobacco Use: Yes Smoking Status (MU): Former Smoker Type: Cigarettes Amount Used/How Often: 1/2 ppd Length of Time of Smoking/Using Tobacco: 10 years Have You Smoked in the Last Year: No Review of Systems Negative: Fever Positive: Chest Pain Positive: Shortness Of Breath. Negative: Cough Positive: Diarrhea All Other Systems Reviewed And Are Negative: Yes Physical Exam - Summary Physical Exam Summary: Appearance: Well appearing, no pain distress Skin: warm, dry, reflects adequate perfusion Head/face: normal Eyes: EOMI, KINGS ENT: normal Neck: supple, non-tender, JVD on both sides Respiratory: CTA, breath sounds diminished at the bases Cardiovascular: RRR, pulses symmetrical, dialysis catheter in the left chest, pacemaker in the left chest Abdomen: non-tender, soft, pulsatile mass in the abdomen Bowel Sounds: present Musculoskeletal: normal, strength/ROM intact Neuro: normal, sensory motor intact, A&Ox3 Triage Information Reviewed: Yes Vital Signs On Initial Exam: Initial Vitals Pulse BP Pulse Ox 82 226/156 93 02/09/18 02:19 02/09/18 02:19 02/09/18 02:19 Vital Signs Reviewed: Yes Procedures - Procedure Summary Procedure Summary: Bedside US: No AAA was visualized. Diagnostics - Vital Signs Vital Signs Temp Pulse Resp BP Pulse Ox 02/09/18 02:20 98.2 F 76 12 226/156 96 02/09/18 02:19 82 226/156 93 - Laboratory Lab Results: Lab Results 02/09/18 02/09/18 Range/Units 02:50 02:50 WBC 3.5 (3.5-10.8) 10^3/ul RBC 3.00 L (4.0-5.4) 10^6/ul Hgb 8.9 L (14.0-18.0) g/dl Hct 28 L (42-52) % MCV 92 (80-94) fL MCH 30 (27-31) pg MCHC 32 (31-36) g/dl RDW 18 H (10.5-15) % Plt Count 113 L (150-450) 10^3/ul MPV 8.7 (7.4-10.4) um3 Neut % (Auto) 62.1 (38-83) % Lymph % (Auto) 20.4 L (25-47) % [place] % (Auto) 13.7 H (0-7) % Eos % (Auto) 2.6 (0-6) % Baso % (Auto) 1.2 (0-2) % Absolute Neuts (auto) 2.2 (1.5-7.7) 10^3/ul Absolute Lymphs (auto) 0.7 L (1.0-4.8) 10^3/ul Absolute Monos (auto) 0.5 (0-0.8) 10^3/ul Absolute Eos (auto) 0.1 (0-0.6) 10^3/ul Absolute Basos (auto) 0 (0-0.2) 10^3/ul Absolute Nucleated RBC 0 10^3/ul Nucleated RBC % 0 Sodium 136 L (139-145) mmol/L Potassium TNP Chloride 98 L (101-111) mmol/L Carbon Dioxide 24 (22-32) mmol/L Anion Gap 14 H (2-11) mmol/L BUN 73 H (6-24) mg/dL Creatinine 13.12 H (0.67-1.17) mg/dL Est GFR ( Amer) 4.9 (>60) Est GFR (Non-Af Amer) 3.8 (>60) BUN/Creatinine Ratio 5.6 L (8-20) Glucose 78 (70-100) mg/dL Calcium 9.7 (8.6-10.3) mg/dL Total Bilirubin 0.60 (0.2-1.0) mg/dL AST TNP ALT 26 (7-52) U/L Alkaline Phosphatase 72 (34-104) U/L Total Protein 8.7 (6.4-8.9) g/dL Albumin 4.5 (3.2-5.2) g/dL Globulin 4.2 H (2-4) g/dL Albumin/Globulin Ratio 1.1 (1-3) Lipase 35 (11.0-82.0) U/L Result Diagrams: 02/09/18 02:50 02/09/18 02:50 Lab Statement: Any lab studies that have been ordered have been reviewed, and results considered in the medical decision making process. - Radiology CXR Xray Interpretation: No Acute Changes - No change from previous Radiology Interpretation Completed By: ED Physician - EKG 0219 Cardiac Rate: NL - 75 bpm EKG Rhythm: Sinus Rhythm EKG Interpretation: Normal axis, flipped T waves in aVL and lead I,no acute ST changes, long QT Re-Evaluation - Re-Evaluation First Eval Re-Evaluation Time: 02:58 Comment: Bedside US was done. No AAA visualized. Second Eval Re-Evaluation Time: 03:28 Comment: Updated pt on results thus far. Third Eval Re-Evaluation Time: 03:36 Change: Improved Comment: BP has improved, has come down. Pt states that once he feels better, he will want to be discharged. Fourth Eval Re-Evaluation Time: 04:19 Comment: Pt continues to feel unwell with nausea and vomiting. Chest Pain Course/Dx - Course Course Of Treatment: Pato is a very frequent visitor to the ER for both pain related complaints and his myriad of comorbidities. He has chest pain nearly every visit -- usually amenable to a shot of morphine. Today his pressures are somewhat higher than usual, especially after dialysis yesterday. CXR and EKG are unchanged. He is ASA allergic. Bedside US was used to examine his abd aorta. No AAA was seen in a limited exam by me. Labs are at baseline. He developed an episode of nausea and vomiting after morphine, but this was improved with haldol/benadryl. He still wasnt feeling well and wished to be admitted. Will add GI tx and discuss with hospitalist. Dr Junior accepted for admission. BPs were improved with 2 doses of IV hydralazine. - Chest Pain Differential Diagnosis/HQI/PQRI: Acute TX, ACS, Chest Wall, GI Disease, Lower Respiratory Infection, Other: - AAA, SBO - Diagnoses Provider Diagnoses: Intractable nausea and vomiting, Chronic chest pain, Hypertensive emergency, End stage renal disease on dialysis - Provider Notifications Discussed Care Of Patient With: Deandre Junior Time Discussed With Above Provider: 06:09 Instructed by Provider To: Other - Accepts pt for admission. - Critical Care Time Critical Care Time: 30-74 min - CCT is exclusive of separately billable procedures Discharge - Sign-Out/Discharge Documenting (check all that apply): Discharge/Admit/Transfer - Admit - Discharge Plan Condition: Guarded Disposition: ADMITTED TO [facility] Referrals: Marielena Vargas MD [Primary Care Provider] - - Billing Disposition and Condition Condition: GUARDED Disposition: [facility]P-[facility] [place] The documentation as recorded by the Irineo casey Rebecca accurately reflects the service I personally performed and the decisions made by , Keagan Copeland MD.
--- NOTE | 2018-02-09 08:10 | RAD ---
INDICATION: Chest pain with radiation to the legs. Cardiomegaly, CHF, valvular cardiac disease. COPD. COMPARISON: January 13, [address] January 13, 2018 chest radiograph. TECHNIQUE: Dual energy PA and routine lateral views of the chest were obtained. REPORT: Elevated lung volumes. Small bilateral dependent pleural effusions with associated basilar atelectasis. Diffuse moderate prominence of interstitial markings. Trace fluid at the RIGHT minor fissure. Postsurgical change of median sternotomy and multiple cardiac valve replacement. Negative for cardiomegaly. Prominent ill-defined central pulmonary vasculature and mild perihilar opacities. Negative for pneumothorax. Tip of tunneled central venous catheter at level of RIGHT atrium. RIGHT ventricular level pacemaker lead. IMPRESSION: Pulmonary vascular congestion and interstitial edema with associated small pleural effusions without significant interval change.
[2018-02-09] MEDS ORDERED: Isosorbide Mononitrate ER TAB* 60 MG PO ONE (08:21)
[2018-02-09] MEDS ORDERED: MinoXIDil TAB* 2.5 MG TAB PO ONE (08:21)
[2018-02-09] MEDS ORDERED: Carvedilol TAB* 25 MG PO ONE (08:21)
[2018-02-09] MEDS ORDERED: Labetalol IV* 5 MG/ML 20 ML VIAL IV PUSH ONE (08:33)
[2018-02-09 10:24] LABS: INR 1.56 (0.77-1.02)
--- NOTE | 2018-02-09 10:59 | CONS ---
CC: Dr. Dalal; Dr. Copeland; Dr. Vargas; Dr. Kowalski* CONSULTATION REPORT: DATE OF CONSULT: 02/09/18 PRIMARY CARE PROVIDER: Dr. Vargas. CHIEF COMPLAINT: Chest pain. HISTORY OF PRESENT ILLNESS: Pato Templeton is a 67-year-old male with history of end - stage renal disease, with medical noncompliance history, who usually has his hemodialysis Mondays, Wednesdays, and Fridays. The patient stated he developed diarrhea this Thursday, which was yesterday, and he did not go to dialysis. Subsequently, he developed chest pain, which is according to medical records, his usual presentation to the emergency department whenever he misses dialysis. In fact, in the past 5 months, he has been to the emergency department with complaints of chest pain 16 times and that is looking at the date since July of 2017. The patient himself though denies that this is his frequent presentation. He stated the chest pain feels like "it's hard to breathe." He had nausea and vomiting in the emergency department with systolic pressures in the 200s. That is also not unusual for this patient, who has had history of very high blood pressures in the past, especially when he misses morning medications. I discussed the case with Dr. Dalal, who agreed for the patient to be dialyzed in the dialysis unit today. I discussed also the case with Dr. Kowalski. We will stabilize the patient's blood pressure, the patient is going to be given his morning oral medications as well as 10 of labetalol IV. The patient's diet will be restarted and he is going to go to outpatient dialysis unit. If Dr. Dalal deems it necessary, the patient may need to come back to the emergency department for reevaluation. PAST MEDICAL HISTORY: For past medical history, please see previous multiple hospitalizations with this patient; this is a very short consultation in regards to the patient's current management. PHYSICAL EXAM: Blood pressure of 197/128, heart rate of 79, respiratory rate 18 , oxygen saturation 99% on room air, temperature of 98.2. General: The patient is a very pleasant 67-year-old male, who is in no acute distress. Alert , awake, and oriented x3. HEENT: Head: Atraumatic, normocephalic. Eyes: Pupils are equal, reactive to light and accommodation. Oropharynx clear. Mucosa moist. Neck: Supple. Positive for JVD bilaterally. Respiratory: Coarse breath sounds bilaterally. Cardiovascular: Regular rate and rhythm. No murmur. Abdomen: Distended. The patient did not want to be tested his abdomen, but it appears distended and when I listened to his abdomen, his bowel sounds were present in all 4 quadrants. Extremities: There is no edema. Pulses are +2 bilaterally. No clubbing or cyanosis. Upon evaluation of skin, no ecchymotic areas or rashes noted. The patient has left subclavian port in place that was accessed from the ED. Neurologically, the patient is intact. Cranial nerves II through XII grossly intact. Motor strength is 5/5 bilaterally. Speech is clear. DIAGNOSTIC STUDIES/LAB DATA: Shows sodium of 136, potassium was hemolyzed, chloride of 98, carbon dioxide 24, BUN 14, creatinine of 13.1. Liver function tests are unremarkable. Troponin was not obtained today. White cell count of 3.5, hemoglobin of 8.9, hematocrit of 28, and platelets of 113. The patient's EKG showed sinus rhythm 175 beats per minute with LVH and QT calculated 503 milliseconds, which is slightly prolonged. Comparing with an EKG from December of 2017, the changes were similar. At that point, the patient's QT was even more prolonged. The patient's portable chest x-ray showed impression "pulmonary vascular congestion and interstitial edema with associated small pleural effusions without significant interval change comparing with 01/13/18 chest radiograph." ASSESSMENT AND PLAN: 1. Chest pain: In regards to the patient's chest pain, this is, as above mentioned, the patient's frequent presentation. At this point, I do not see any acute EKG changes. The patient has chronically elevated troponin due to his history of end-stage renal disease. Nevertheless, his troponin was not obtained today and I am going to add it to the patient's current lab work. 2. In regards to uncontrolled hypertension, the patient at this point, will be given his oral medications that he usually takes in the morning. He is going to receive 10 mg of IV labetalol and hopefully his pressure will be controlled enough for him to go to outpatient dialysis. 3. The case was discussed with Dr. Kowalski and Dr. Dalal, who are in agreement. 4. If further evaluation or admission is needed, please call back the hospitalist service. Thank you very much for allowing me to see your patient in consultation. TIME SPENT: Approximately 25 minutes was spent on the patient's consultation. [id number]/ANNETTE #: [id number] STEPHANIE
[2018-02-09 11:10] VITALS: BP 195/131
--- NOTE | 2018-02-11 13:54 | ED ---
Sumaya Briones Julia, scribed for Steven Kowalski MD on 02/09/18 at 1047 . Progress - Progress Note Progress Note: This patient is pending admission at shift change. Instead, patient will be discharged to dialysis and will return to ED if needed. Re-Evaluation - Re-Evaluation First Eval Re-Evaluation Time: 02:58 Comment: Bedside US was done. No AAA visualized. Second Eval Re-Evaluation Time: 03:28 Comment: Updated pt on results thus far. Third Eval Re-Evaluation Time: 03:36 Change: Improved Comment: BP has improved, has come down. Pt states that once he feels better, he will want to be discharged. Fourth Eval Re-Evaluation Time: 04:19 Comment: Pt continues to feel unwell with nausea and vomiting. Course/Dx - Course Course Of Treatment: Discussed patient with Austen. Pt's chest pain is chronic in nature. Dr. Marques will reassess after dialysis.Pt will be sent bak to ED as needed. Dr. Dalal is agreeable with this plan. - Diagnoses Provider Diagnoses: Chronic chest pain, End stage renal disease on dialysis - Critical Care Time Critical Care Time: 30-74 min - CCT is exclusive of separately billable procedures Discharge - Sign-Out/Discharge Documenting (check all that apply): Discharge/Admit/Transfer - discharge immediately to dialysis - Discharge Plan Condition: Guarded Disposition: HOME Patient Education Materials: Chest Pain (ED), End Stage Kidney Disease (ED) Referrals: Marielena Vargas MD [Primary Care Provider] - 1 Week Additional Instructions: RETURN TO THE EMERGENCY DEPARTMENT FOR CHANGING OR WORSENING SYMPTOMS The documentation as recorded by the Sumaya casey Julia accurately reflects the service I personally performed and the decisions made by , Steven Kowalski MD.
== END 2018-02-09 11:08 | disposition home or self-care (01) ==
LOC: ED 02:13
DX: R07.9 Chest pain, unspecified (principal); I16.0 Hypertensive urgency; I12.0 Hypertensive chronic kidney disease with stage 5 chronic kidney disease or end stage renal disease; N18.6 End stage renal disease; G89.29 Other chronic pain; R06.02 Shortness of breath; R19.7 Diarrhea, unspecified; Z87.891 Personal history of nicotine dependence; R11.2 Nausea with vomiting, unspecified
CPT/HCPCS: 36415; 71046; 80053; 83690; 84484; 85025; 85610; 93005; 96374; 96375; 99284; A9270-GY; J0360; J1200; J1630; J2270; J2405

== ENCOUNTER 2018-02-15 09:42 | Emergency (ER) | payer MEDICARE, MEDICAID ==
[2018-02-15] MEDS ORDERED: oxyCODONE TAB* 5 MG TAB PO ONE (10:54)
[2018-02-15] MEDS ORDERED: LORazepam TAB(*) 1 MG PO ONE (12:16)
[2018-02-15 14:01] VITALS: BP 210/111
--- NOTE | 2018-02-15 16:04 | ED ---
Celine Briones Nilda, scribed for Zain Templeton MD on 02/15/18 at 1156 . Complex/Multi-Sys Presentation - HPI Summary HPI Summary: This patient is a 67 year old M presenting to [facility] with a chief complaint of constant painful muscle spasms in RLE radiating to right gluteal, RUE, and lower back since 0700 this morning during dialysis treatment. The patient rates the pain 10/10 in severity. Symptoms aggravated by movement and ambulation and alleviated by rest. Patient reports SELBY. He states painful area of vascular swelling secondary to blood clot in upper LUE s/p procedure in [facility]. He notes there is no longer a function fistula in either arm. Pt notes he was unable to ambulate at onset of spasms. Pt states he had previous episode of constant muscle spasms during which he was told he was having a CVA. - History Of Current Complaint Chief Complaint: EDBackInjuryPain Time Seen by Provider: 02/15/18 09:47 Hx Obtained From: Patient Onset/Duration: Sudden Onset, Lasting Hours, Still Present Timing: Constant Severity Currently: Severe Severity Initially: Severe Location: Pain At: - RLE radiating to right gluteal, RUE, and lower back, SELBY, arm Character: Sharp - spasm Aggravating Factor(s): movement and ambulation Alleviating Factor(s): nothing Associated Signs And Symptoms: Positive: Other - painful muscle spasms in RLE radiating to right gluteal, RUE, and lower back, SELBY, painful blood clot in upper LUE. - Allergies/Home Medications Allergies/Adverse Reactions: Allergies Allergy/AdvReac Type Severity Reaction Status Date / Time aspirin Allergy "Ever Verified 01/13/18 04:47 since i was a boy i was told not to take aspirin" hydromorphone AdvReac Pt states Verified 01/13/18 04:47 "he feels like a junky" PMH/Surg Hx/FS Hx/Imm Hx Endocrine/Hematology History: Reports: Hx Blood Transfusions, Hx Sickle Cell Disease - Was told had sickle cell at one point but denies, Hx Anemia Denies: Hx Anticoagulant Therapy, Hx Bone Marrow Disease, Hx Diabetes, Hx Thyroid Disease Cardiovascular History: Reports: Hx Angina, Hx Auto Implanted Cardiovert Defib, Hx Congestive Heart Failure, Hx Coronary Artery Disease, Hx Deep Vein Thrombosis , Hx Hypertension, Hx Pacemaker/ICD, Hx Peripheral Vascular Disease, Hx Syncope , Other Cardiovascular Problems/Disorders - cardiomegaly, mitral valve and tricuspid valve repair Denies: Hx Cardiomegaly, Hx Hypercholesterolemia, Hx Myocardial Infarction, Hx Rheumatic Fever, Hx Valvular Heart Disease Respiratory History: Reports: Hx Asthma, Hx Chronic Obstructive Pulmonary Disease (COPD), Hx Pleural Effusion, Hx Pneumonia, Other Respiratory Problems/ Disorders Denies: Hx Pulmonary Edema, Hx Pulmonary Embolism, Hx Sleep Apnea GI History: Reports: Hx Cirrhosis, Hx Gastroesophageal Reflux Disease, Hx Ulcer - peptic ulcer, Other GI Disorders - hep C Denies: Hx Crohn's Disease, Hx Hiatal Hernia, Hx Irritable Bowel, Hx Jaundice History: Reports: Hx Acute Renal Failure, Hx Chronic Renal Failure, Hx Dialysis, Hx Renal Disease, Other Problems/Disorders - end stage renal disease, on dialysis Denies: Hx Kidney Infection, Hx Kidney Stones Musculoskeletal History: Reports: Hx Arthritis, Hx Back Problems - chronic pain , Hx Orthopedic Injury Denies: Hx Rheumatoid Arthritis, Hx Bursitis, Hx Tendonitis, Other Musculoskeletal History Sensory History: Reports: Hx Contacts or Glasses, Hx Glaucoma, Hx Vision Problem Denies: Hx Cataracts, Hx Hearing Aid Opthamlomology History: Reports: Hx Contacts or Glasses, Hx Glaucoma, Hx Vision Problem Denies: Hx Cataracts Neurological History: Reports: Hx Headaches, Hx Migraine, Other Neuro Impairments/Disorders - depression Denies: Hx Dementia, Hx Seizures Psychiatric History: Reports: Hx Anxiety, Hx Depression Denies: Hx Eating Disorder, Hx Panic Disorder, Hx Suicide Attempt, Hx of Violent Episodes Against Others, Hx Substance Abuse - Cancer History Hx Chemotherapy: No Hx Radiation Therapy: No Hx Palliative Cancer Treatment: No - Surgical History Surgery Procedure, Year, and Place: HERNIA REPAIR 2012. APPENDECTOMY 2000. LEFT ARM AV FISTULA/CAD - REMOVED. CABG 1 vessel, mitral & tricuspid valve repair March 02, 2014 AT [facility] CONDITIONAL 5 UPTO 3T. POWER PORT. Mitral and tricuspid valve repair Hx Anesthesia Reactions: No - Immunization History Date of Tetanus Vaccine: 2014 Date of Influenza Vaccine: Fall 2015 Infectious Disease History: No Infectious Disease History: Reports: Hx Hepatitis - Hep C, Hx of Known/ Suspected MRSA, History Other Infectious Disease - Hepatitis C Denies: Hx Clostridium Difficile, Hx Human Immunodeficiency Virus (HIV), Hx Shingles, Hx Tuberculosis, Hx Known/Suspected VRE, Hx Known/Suspected VRSA, Traveled Outside the [place] in Last 30 Days - Family History Known Family History: Positive: Cardiac Disease, Hypertension, Other - CVA Family History: R & N/C - Social History Alcohol Use: None Alcohol Amount: former EtOH abuse Hx Substance Use: Yes Substance Use Type: Reports: Marijuana Substance Use Comment - Amount & Last Used: for pain Hx Tobacco Use: Yes Smoking Status (MU): Former Smoker Type: Cigarettes Amount Used/How Often: 1/2 ppd Length of Time of Smoking/Using Tobacco: 10 years Have You Smoked in the Last Year: No Review of Systems Positive: Other - constant painful muscle spasms in RLE radiating to right gluteal, RUE, and lower back; vascular swelling secondary to blood clot in upper LUE Positive: Headache All Other Systems Reviewed And Are Negative: Yes Physical Exam - Summary Physical Exam Summary: Appearance: The patient is well-nourished in no acute distress and in no acute pain. Skin: The skin is warm and dry and skin color reflects adequate perfusion. HEENT: The head is normocephalic and atraumatic. The pupils are equal and reactive. The conjunctivae are clear and without drainage. Nares are patent and without drainage. Mouth reveals moist mucous membranes and the throat is without erythema and exudate. The external ears are intact. The ear canals are patent and without drainage. The tympanic membranes are intact. Neck: the neck is supple with full range of motion and non-tender. There are no carotid bruits. There is no neck vein distension. Respiratory: Chest is non-tender. Lungs are clear to auscultation and breath sounds are symmetrical and equal. Cardiovascular: Heart is regular rate and rhythm. There is no murmur or rub auscultated. There is no peripheral edema and pulses are symmetrical and equal. Abdomen: The abdomen is soft and non-tender. There are normal bowel sounds heard in all four quadrants and there is no organomegaly palpated. Musculoskeletal:Tender right sciatica area. Positive straight leg raise. Strong pulse in anterior medial left upper arm that was tender with pulsatile mass. Neurological: Patient is alert and oriented to person, place and time. The patient has symmetrical motor strength in all four extremities. Cranial nerves are grossly intact. Deep tendon reflexes are symmetrical and equal in all four extremities. Psychiatric: The patient has an appropriate affect and does not exhibit any anxiety or depression. Triage Information Reviewed: Yes Vital Signs On Initial Exam: Initial Vitals Temp Pulse Resp BP Pulse Ox 98.8 F 78 20 213/114 97 02/15/18 09:43 02/15/18 09:43 02/15/18 09:43 02/15/18 09:43 02/15/18 09:43 Vital Signs Reviewed: Yes Diagnostics - Vital Signs Vital Signs Temp Pulse Resp BP Pulse Ox 02/15/18 10:51 80 221/113 100 02/15/18 10:21 78 211/108 99 02/15/18 10:08 220/126 02/15/18 10:00 77 97 02/15/18 09:51 78 193/135 97 02/15/18 09:43 98.8 F 78 20 213/114 97 - Laboratory Lab Statement: Any lab studies that have been ordered have been reviewed, and results considered in the medical decision making process. Re-Evaluation - Re-Evaluation First Eval Re-Evaluation Time: 13:37 Comment: Pt feels better and is agreeable to D/C. Complex Multi-Symp Course/Dx Course Of Treatment: Mr. Templeton presented with a C/O right low back pain and ' spasms' and left upper arm pain. these are both pains he has had many times and they flared up today while in dialysis. He was given symptomatic treatment and improved. - Diagnoses Provider Diagnoses: Sciatica Discharge - Sign-Out/Discharge Documenting (check all that apply): Discharge/Admit/Transfer - Discharge Plan Condition: Stable Disposition: HOME Patient Education Materials: Sciatica (ED) Referrals: Marielena Vargas MD [Primary Care Provider] - 2 Days Additional Instructions: RETURN TO THE EMERGENCY DEPARTMENT FOR CHANGING OR WORSENING SYMPTOMS. - Billing Disposition and Condition Condition: STABLE Disposition: HOME The documentation as recorded by the Celine casey Nilda accurately reflects the service I personally performed and the decisions made by , Zain Templeton MD.
== END 2018-02-15 14:04 | disposition home or self-care (01) ==
LOC: ED 09:42
DX: M54.30 Sciatica, unspecified side (principal); Z87.891 Personal history of nicotine dependence; Z88.6 Allergy status to analgesic agent; Z88.5 Allergy status to narcotic agent
CPT/HCPCS: 99283; A9270-GY

== ENCOUNTER 2018-02-26 09:53 | Emergency (ER) | payer MEDICARE, MEDICAID ==
[2018-02-26] MEDS ORDERED: Morphine VIAL* 10 MG/ML 1 ML VIAL IM ONE (11:01)
[2018-02-26] MEDS ORDERED: Morphine VIAL* 4 MG/ML VIAL (1 ml vial) IV ONE ×2 (11:35→11:37)
[2018-02-26 12:35] VITALS: BP 184/131
--- NOTE | 2018-02-26 15:18 | ED ---
Gustavo Briones Natalie, scribed for Zain Templeton MD on 02/26/18 at 1114 . Abdominal Pain/Male - HPI Summary HPI Summary: The pt is a 67 y/o M presenting to the ED c/o bilateral flank pain gradual onset this morning s/p dialysis. The pain radiates to back and diffuse lower abd. Pt states, I havent had pain like this before, it hurts so bad. The pain is rated 9/10 in severity. The pain is aggravated when he moves or lies down. Pt denies N/V/D and constipation. He has hx of sciatica. - History of Current Complaint Chief Complaint: EDFlankPain Stated Complaint: FLANK PAIN Time Seen by Provider: 02/26/18 10:34 Hx Obtained From: Patient Onset/Duration: Gradual Onset, Still Present Timing: Constant Severity Initially: Moderate Severity Currently: Severe Pain Intensity: 9 Pain Scale Used: 0-10 Numeric Location: Flank - bilateral Radiates: Yes Radiates to: Back, Other - diffuse lower abd Aggravating Factor(s): Movement, Other: - lying down Alleviating Factor(s): Nothing Associated Signs And Symptoms: Negative: Constipation, Nausea, Vomiting, Diarrhea - Allergies/Home Medications Allergies/Adverse Reactions: Allergies Allergy/AdvReac Type Severity Reaction Status Date / Time aspirin Allergy "Ever Verified 01/13/18 04:47 since i was a boy i was told not to take aspirin" hydromorphone AdvReac Pt states Verified 01/13/18 04:47 "he feels like a junky" PMH/Surg Hx/FS Hx/Imm Hx Endocrine/Hematology History: Reports: Hx Blood Transfusions, Hx Sickle Cell Disease - Was told had sickle cell at one point but denies, Hx Anemia Denies: Hx Anticoagulant Therapy, Hx Bone Marrow Disease, Hx Diabetes, Hx Thyroid Disease Cardiovascular History: Reports: Hx Angina, Hx Auto Implanted Cardiovert Defib, Hx Congestive Heart Failure, Hx Coronary Artery Disease, Hx Deep Vein Thrombosis , Hx Hypertension, Hx Pacemaker/ICD, Hx Peripheral Vascular Disease, Hx Syncope , Other Cardiovascular Problems/Disorders - cardiomegaly, mitral valve and tricuspid valve repair Denies: Hx Cardiomegaly, Hx Hypercholesterolemia, Hx Myocardial Infarction, Hx Rheumatic Fever, Hx Valvular Heart Disease Respiratory History: Reports: Hx Asthma, Hx Chronic Obstructive Pulmonary Disease (COPD), Hx Pleural Effusion, Hx Pneumonia, Other Respiratory Problems/ Disorders Denies: Hx Pulmonary Edema, Hx Pulmonary Embolism, Hx Sleep Apnea GI History: Reports: Hx Cirrhosis, Hx Gastroesophageal Reflux Disease, Hx Ulcer - peptic ulcer, Other GI Disorders - hep C Denies: Hx Crohn's Disease, Hx Hiatal Hernia, Hx Irritable Bowel, Hx Jaundice History: Reports: Hx Acute Renal Failure, Hx Chronic Renal Failure, Hx Dialysis, Hx Renal Disease, Other Problems/Disorders - end stage renal disease, on dialysis Denies: Hx Kidney Infection, Hx Kidney Stones Musculoskeletal History: Reports: Hx Arthritis, Hx Back Problems - chronic pain , Hx Orthopedic Injury Denies: Hx Rheumatoid Arthritis, Hx Bursitis, Hx Tendonitis, Other Musculoskeletal History Sensory History: Reports: Hx Contacts or Glasses, Hx Glaucoma, Hx Vision Problem Denies: Hx Cataracts, Hx Hearing Aid Opthamlomology History: Reports: Hx Contacts or Glasses, Hx Glaucoma, Hx Vision Problem Denies: Hx Cataracts Neurological History: Reports: Hx Headaches, Hx Migraine, Other Neuro Impairments/Disorders - depression Denies: Hx Dementia, Hx Seizures Psychiatric History: Reports: Hx Anxiety, Hx Depression Denies: Hx Eating Disorder, Hx Panic Disorder, Hx Suicide Attempt, Hx of Violent Episodes Against Others, Hx Substance Abuse - Cancer History Hx Chemotherapy: No Hx Radiation Therapy: No Hx Palliative Cancer Treatment: No - Surgical History Surgery Procedure, Year, and Place: HERNIA REPAIR 2012. APPENDECTOMY 2000. LEFT ARM AV FISTULA/CAD - REMOVED. CABG 1 vessel, mitral & tricuspid valve repair March 02, 2014 AT [facility] CONDITIONAL 5 UPTO 3T. POWER PORT. Mitral and tricuspid valve repair Hx Anesthesia Reactions: No - Immunization History Date of Tetanus Vaccine: 2014 Date of Influenza Vaccine: Fall 2015 Infectious Disease History: No Infectious Disease History: Reports: Hx Hepatitis - Hep C, Hx of Known/ Suspected MRSA, History Other Infectious Disease - Hepatitis C Denies: Hx Clostridium Difficile, Hx Human Immunodeficiency Virus (HIV), Hx Shingles, Hx Tuberculosis, Hx Known/Suspected VRE, Hx Known/Suspected VRSA, Traveled Outside the [place] in Last 30 Days - Family History Known Family History: Positive: Cardiac Disease, Hypertension, Other - CVA Family History: R & N/C - Social History Alcohol Use: None Alcohol Amount: former EtOH abuse Hx Substance Use: Yes Substance Use Type: Reports: Marijuana Substance Use Comment - Amount & Last Used: for pain Hx Tobacco Use: Yes Smoking Status (MU): Former Smoker Type: Cigarettes Amount Used/How Often: 1/2 ppd Length of Time of Smoking/Using Tobacco: 10 years Have You Smoked in the Last Year: No Review of Systems Gastrointestinal: Negative - constipation Negative: Vomiting, Diarrhea, Nausea Positive: flank pain - bilateral, radiates to back and diffuse abd All Other Systems Reviewed And Are Negative: Yes Physical Exam - Summary Physical Exam Summary: Appearance: The patient is well-nourished in no acute distress and in no acute pain. Skin: The skin is warm and dry and skin color reflects adequate perfusion. HEENT: The head is normocephalic and atraumatic. The pupils are equal and reactive. The conjunctivae are clear and without drainage. Nares are patent and without drainage. Mouth reveals moist mucous membranes and the throat is without erythema and exudate. The external ears are intact. The ear canals are patent and without drainage. The tympanic membranes are intact. Neck: the neck is supple with full range of motion and non-tender. There are no carotid bruits. There is no neck vein distension. Respiratory: Chest is non-tender. Lungs are clear to auscultation and breath sounds are symmetrical and equal. Cardiovascular: Heart is regular rate and rhythm. There is no murmur or rub auscultated. There is no peripheral edema and pulses are symmetrical and equal. Abdomen: The abdomen is soft and non-tender. There are normal bowel sounds heard in all four quadrants and there is no organomegaly palpated. Musculoskeletal: There tenderness in the paralumbar region. Extremities are non- tender with full range of motion. There is good capillary refill. There is no peripheral edema or calf tenderness elicited. Neurological: Patient is alert and oriented to person, place and time. The patient has symmetrical motor strength in all four extremities. Cranial nerves are grossly intact. Deep tendon reflexes are symmetrical and equal in all four extremities. Psychiatric: The patient has an appropriate affect and does not exhibit any anxiety or depression. Triage Information Reviewed: Yes Vital Signs On Initial Exam: Initial Vitals Temp Pulse Resp BP Pulse Ox 98.3 F 77 16 169/114 100 02/26/18 10:02/26/18 10:02/26/18 10:00 02/26/18 10:02/26/18 10:00 Vital Signs Reviewed: Yes Diagnostics - Vital Signs Vital Signs Temp Pulse Resp BP Pulse Ox 02/26/18 10:00 98.3 F 77 16 169/114 100 - Laboratory Lab Statement: Any lab studies that have been ordered have been reviewed, and results considered in the medical decision making process. Re-Evaluation - Re-Evaluation First Eval Re-Evaluation Time: 12:08 Change: Improved Comment: The pt's back pain has been relieved. The pt will be discharged home. He is aggreeable with this plan. Abdominal Pain Fem Course/Dx - Course Course Of Treatment: Mr Templeton presented C/O bilateral low back pain. He has known lumbar pathology. He was tender on both sides. His abdomen was soft and nontender. He improved a lot with a shot of morphine which is his pattern. - Diagnoses Provider Diagnoses: Back pain Discharge - Sign-Out/Discharge Documenting (check all that apply): Discharge/Admit/Transfer - Discharge Plan Condition: Stable Disposition: HOME Referrals: Marielena aVrgas MD [Primary Care Provider] - 3 Days Additional Instructions: Follow up with your primary care provider in 2-3 days Please return to the emergency department for any new or worsening symptoms. - Billing Disposition and Condition Condition: STABLE Disposition: HOME The documentation as recorded by the Gustavo casey Natalie accurately reflects the service I personally performed and the decisions made by me, Zain Templeton MD.
== END 2018-02-26 12:33 | disposition home or self-care (01) ==
LOC: ED 09:53
DX: M54.9 Dorsalgia, unspecified (principal); D64.9 Anemia, unspecified; I25.119 Atherosclerotic heart disease of native coronary artery with unspecified angina pectoris; I11.0 Hypertensive heart disease with heart failure; I50.9 Heart failure, unspecified; Z95.810 Presence of automatic (implantable) cardiac defibrillator; Z95.1 Presence of aortocoronary bypass graft; Z86.718 Personal history of other venous thrombosis and embolism; J44.9 Chronic obstructive pulmonary disease, unspecified; K21.9 Gastro-esophageal reflux disease without esophagitis; K74.60 Unspecified cirrhosis of liver; I13.2 Hypertensive heart and chronic kidney disease with heart failure and with stage 5 chronic kidney disease, or end stage renal disease; N18.6 End stage renal disease; N17.9 Acute kidney failure, unspecified; Z99.2 Dependence on renal dialysis; G43.909 Migraine, unspecified, not intractable, without status migrainosus; F41.9 Anxiety disorder, unspecified; F32.9 Major depressive disorder, single episode, unspecified; Z87.891 Personal history of nicotine dependence
CPT/HCPCS: 99282; J2270

== ENCOUNTER 2018-04-06 16:46 | Observation (INO) | payer MEDICARE, MEDICAID ==
[2018-04-06] MEDS ORDERED: Albuterol 2.5 MG/3 ML NEB.SOL* (0.083%) INH ONE ×2 (18:05→20:29)
[2018-04-06] MEDS ORDERED: Ondansetron ODT TAB* 4 MG PO ONE (19:13)
[2018-04-06] MEDS ORDERED: Morphine VIAL* 4 MG/ML VIAL (1 ml vial) IV ONE ×2 (19:13→20:29)
--- NOTE | 2018-04-06 20:00 | RAD ---
INDICATION: Chest pain and shortness of breath COMPARISON: Chest x-ray dated February 09, 2018 TECHNIQUE: 2 AP views of the chest and 2 AP views of the abdomen were obtained. FINDINGS: Stable postsurgical findings include a single lead left upper chest cardiac pacemaker, a prostatic aortic valve, sternotomy wires and a left internal jugular vein tunneled hemodialysis catheter with the tip terminating over the right atrium. There is cardiomegaly. There has been relative increase in the patchy densities overlying the bilateral lungs as well as the densities obscuring the hemidiaphragm and causing costophrenic angle blunting. Gas and stool is seen overlying the bowel. There is no definite pathologic distention. There is no free air beneath the diaphragm. IMPRESSION: 1. RELATIVE TO THE MOST RECENT CHEST X-RAY DATED FEBRUARY 09, 2018, CHEST X-RAY FINDINGS ARE CONSISTENT WITH WORSENING CARDIOGENIC PULMONARY EDEMA. 2. THERE ARE NO RADIOGRAPHICALLY APPARENT ACUTE ABNORMALITIES OF THE ABDOMEN.
[2018-04-06 20:28] LABS: ABS Basophils 0 10^3/ul (0-0.2); ABS Eosinophils 0.1 10^3/ul (0-0.6); ABS Lymphocytes 0.7 10^3/ul (1.0-4.8); ABS Monocytes 0.4 10^3/ul (0-0.8); ABS Neutrophils 2.4 10^3/ul (1.5-7.7); ABS Nucleated RBC 0 10^3/ul; Hematocrit 30 % (42-52); Lymphocyte % 20.2 % (25-47); Mean Corpuscular HGB Conc 33 g/dl (31-36); Mean Corpuscular Hemoglobin 31 pg (27-31); Mean Corpuscular Volume 93 fL (80-94); Mean Platelet Volume 8.3 um3 (7.4-10.4); Nucleated Red Blood Cells % 0.3; Platelet Count 120 10^3/ul (150-450); Red Blood Count 3.28 10^6/ul (4.00-5.40); Red Cell Distribution Width 17 % (10.5-15); White Blood Count 3.6 10^3/ul (3.5-10.8)
[2018-04-06 20:30] LABS: INR 2.63 (0.77-1.02)
[2018-04-06] MEDS ORDERED: Warfarin TAB(*) 5 MG PO ONE (20:51)
[2018-04-06] MEDS ORDERED: Lisinopril TAB* 10 MG PO ONE (20:52)
[2018-04-06] MEDS ORDERED: Carvedilol TAB* 6.25 MG PO ONE (20:52)
[2018-04-06] MEDS ORDERED: hydrALAZINE TAB* 25 MG PO ONE (20:53)
--- NOTE | 2018-04-06 21:31 | RAD ---
INDICATION: Abdominal pain COMPARISON: Similar examination November 23, 2017 TECHNIQUE: 2 views the abdomen were obtained. FINDINGS: Again seen are surgical clips overlying the right hemiabdomen. There are no acute bony or soft tissue abnormalities. The bowel gas pattern is normal. There is a moderate amount of stool overlying the renal shadows. There are no obvious coarse calcifications overlying the expected location of the bilateral collecting systems or ureters. IMPRESSION:NO RADIOGRAPHICALLY APPARENT ACUTE ABNORMALITY OF THE ABDOMEN.
[2018-04-06] MEDS ORDERED: Sodium Polystyrene ORAL.SOL* 15 GM/60 ML BTL PO ONE (21:36)
[2018-04-06] MEDS ORDERED: Dextrose 50% Syringe 50 ML* 25 GM/50 ML SYRINGE IV PUSH ONE (22:12)
[2018-04-06] MEDS ORDERED: Insulin REGULAR(*) 1 UNITS UNIT IV PUSH ONE (22:14)
[2018-04-06] MEDS ORDERED: Calcium CHLORIDE 10% SYRINGE* 1 GM in D5W 100 ML BAG* 100 ML IV ONE (22:16)
[2018-04-06] MEDS ORDERED: Calcium CHLORIDE 10% SYRINGE* 1 GM/10 ML ONE (22:26)
[2018-04-06] MEDS ORDERED: Acetaminophen TAB* 325 MG PO PRN (22:29)
[2018-04-06] MEDS ORDERED: Senna TAB PO PRN (22:29)
[2018-04-06] MEDS ORDERED: Al Hydrox/Mg Hydrox/Simet LIQ* 30 ML UDC PO PRN (22:29)
[2018-04-06] MEDS ORDERED: Ondansetron 40 MG VIAL* 2 MG/ML 20 ML VIAL IV PRN (22:29)
[2018-04-06] MEDS ORDERED: Docusate CAP* 100 MG PO PRN (22:29)
--- NOTE | 2018-04-06 22:33 | ED ---
Dusty Briones Simon, scribed for Rafa Reddy MD on 04/06/18 at 1823 . Shortness of Breath - HPI Summary HPI Summary: This patient is a 67 year old M presenting to [facility] with a chief complaint of SOB since 0000. Endorses breathing problems/hoarseness and other similar sx last year, for which he recieved breathing treatment (albuterol). Endorses CP, Abd pain, throat tight and hoarse, SOB, cough, and diarrhea. - History of Current Complaint Chief Complaint: EDShortnessOfBreath Time Seen by Provider: 04/06/18 18:05 Hx Obtained From: Patient Onset/Duration: Lasting Hours, Still Present Timing: Constant Current Severity: Moderate Dyspnea At: Rest Aggrevating Factors: Nothing Alleviating Factors: Bronchodilators - albuterol Associated Signs & Symptoms: Cough (Nonproductive), Chest Pain w/Cough - Allergy/Home Medications Allergies/Adverse Reactions: Allergies Allergy/AdvReac Type Severity Reaction Status Date / Time aspirin Allergy "Ever Verified 04/06/18 16:57 since i was a boy i was told not to take aspirin" hydromorphone AdvReac Pt states Verified 04/06/18 16:57 "he feels like a junky" PMH/Surg Hx/FS Hx/Imm Hx Endocrine/Hematology History: Reports: Hx Blood Transfusions, Hx Sickle Cell Disease - Was told had sickle cell at one point but denies, Hx Anemia Denies: Hx Anticoagulant Therapy, Hx Bone Marrow Disease, Hx Diabetes, Hx Thyroid Disease Cardiovascular History: Reports: Hx Angina, Hx Auto Implanted Cardiovert Defib, Hx Congestive Heart Failure, Hx Coronary Artery Disease, Hx Deep Vein Thrombosis , Hx Hypertension, Hx Pacemaker/ICD, Hx Peripheral Vascular Disease, Hx Syncope , Other Cardiovascular Problems/Disorders - cardiomegaly, mitral valve and tricuspid valve repair Denies: Hx Cardiomegaly, Hx Hypercholesterolemia, Hx Myocardial Infarction, Hx Rheumatic Fever, Hx Valvular Heart Disease Respiratory History: Reports: Hx Asthma, Hx Chronic Obstructive Pulmonary Disease (COPD), Hx Pleural Effusion, Hx Pneumonia, Other Respiratory Problems/ Disorders Denies: Hx Pulmonary Edema, Hx Pulmonary Embolism, Hx Sleep Apnea GI History: Reports: Hx Cirrhosis, Hx Gastroesophageal Reflux Disease, Hx Ulcer - peptic ulcer, Other GI Disorders - hep C Denies: Hx Crohn's Disease, Hx Hiatal Hernia, Hx Irritable Bowel, Hx Jaundice History: Reports: Hx Acute Renal Failure, Hx Chronic Renal Failure, Hx Dialysis, Hx Renal Disease, Other Problems/Disorders - end stage renal disease, on dialysis Denies: Hx Kidney Infection, Hx Kidney Stones Musculoskeletal History: Reports: Hx Arthritis, Hx Back Problems - chronic pain , Hx Orthopedic Injury Denies: Hx Rheumatoid Arthritis, Hx Bursitis, Hx Tendonitis, Other Musculoskeletal History Sensory History: Reports: Hx Contacts or Glasses, Hx Glaucoma, Hx Vision Problem Denies: Hx Cataracts, Hx Hearing Aid Opthamlomology History: Reports: Hx Contacts or Glasses, Hx Glaucoma, Hx Vision Problem Denies: Hx Cataracts Neurological History: Reports: Hx Headaches, Hx Migraine, Other Neuro Impairments/Disorders - depression Denies: Hx Dementia, Hx Seizures Psychiatric History: Reports: Hx Anxiety, Hx Depression Denies: Hx Eating Disorder, Hx Panic Disorder, Hx Suicide Attempt, Hx of Violent Episodes Against Others, Hx Substance Abuse - Cancer History Hx Chemotherapy: No Hx Radiation Therapy: No Hx Palliative Cancer Treatment: No - Surgical History Surgery Procedure, Year, and Place: HERNIA REPAIR 2012. APPENDECTOMY 2000. LEFT ARM AV FISTULA/CAD - REMOVED. CABG 1 vessel, mitral & tricuspid valve repair March 02, 2014 AT [facility] CONDITIONAL 5 UPTO 3T. POWER PORT. Mitral and tricuspid valve repair Hx Anesthesia Reactions: No - Immunization History Date of Tetanus Vaccine: 2014 Date of Influenza Vaccine: Fall 2015 Infectious Disease History: No Infectious Disease History: Reports: Hx Hepatitis - Hep C, Hx of Known/ Suspected MRSA, History Other Infectious Disease - Hepatitis C Denies: Hx Clostridium Difficile, Hx Human Immunodeficiency Virus (HIV), Hx Shingles, Hx Tuberculosis, Hx Known/Suspected VRE, Hx Known/Suspected VRSA, Traveled Outside the in Last 30 Days - Family History Known Family History: Positive: None, Cardiac Disease, Hypertension, Other - CVA Family History: R & N/C - Social History Alcohol Use: None Alcohol Amount: former EtOH abuse Hx Substance Use: Yes Substance Use Type: Reports: Marijuana Substance Use Comment - Amount & Last Used: for pain Hx Tobacco Use: Yes Smoking Status (MU): Former Smoker Type: Cigarettes Amount Used/How Often: 1/2 ppd Length of Time of Smoking/Using Tobacco: 10 years Have You Smoked in the Last Year: No Review of Systems Negative: Fever Positive: Sore Throat, Other - Hoarse throat Positive: Chest Pain - from cough Positive: Shortness Of Breath - "tightness", Cough Positive: Abdominal Pain, Diarrhea All Other Systems Reviewed And Are Negative: Yes Physical Exam - Summary Physical Exam Summary: General: well-appearing, mild pain distress Skin: warm, color reflects adequate perfusion, dry Head: normal Eyes: EOMI, KINGS ENT: normal, hoarse voice Neck: supple, nontender Respiratory: CTA, breath sounds present Cardiovascular: RRR Abdomen: soft, upper abd mildly TTP Bowel: present Musculoskeletal: normal, strength/ROM intact Neurological: sensory/motor intact, A&O x3 Psychological: affect/mood appropriate Triage Information Reviewed: Yes Vital Signs On Initial Exam: Initial Vitals Temp Pulse Resp BP Pulse Ox 98.5 F 73 16 175/126 99 04/06/18 16:52 04/06/18 16:52 04/06/18 16:52 04/06/18 16:52 04/06/18 16:52 Vital Signs Reviewed: Yes Diagnostics - Vital Signs Vital Signs Temp Pulse Resp BP Pulse Ox 04/06/18 16:52 98.5 F 73 16 175/126 99 - Laboratory Lab Results: Lab Results 04/06/18 04/06/18 04/06/18 Range/Units 20:10 20:10 20:10 WBC 3.6 (3.5-10.8) 10^3/ul RBC 3.28 L (4.00-5.40) 10^6/ul Hgb 10.0 L (14.0-18.0) g/dl Hct 30 L (42-52) % MCV 93 (80-94) fL MCH 31 (27-31) pg MCHC 33 (31-36) g/dl RDW 17 H (10.5-15) % Plt Count 120 L (150-450) 10^3/ul MPV 8.3 (7.4-10.4) um3 Neut % (Auto) 65.2 (38-83) % Lymph % (Auto) 20.2 L (25-47) % [place] % (Auto) 11.5 H (0-7) % Eos % (Auto) 2.0 (0-6) % Baso % (Auto) 1.1 (0-2) % Absolute Neuts (auto) 2.4 (1.5-7.7) 10^3/ul Absolute Lymphs (auto) 0.7 L (1.0-4.8) 10^3/ul Absolute Monos (auto) 0.4 (0-0.8) 10^3/ul Absolute Eos (auto) 0.1 (0-0.6) 10^3/ul Absolute Basos (auto) 0 (0-0.2) 10^3/ul Absolute Nucleated RBC 0 10^3/ul Nucleated RBC % 0.3 INR (Anticoag Therapy) 2.63 H (0.77-1.02) APTT 45.7 H (26.0-36.3) seconds Sodium 137 (135-145) mmol/L Potassium TNP Chloride 96 L (101-111) mmol/L Carbon Dioxide 29 (22-32) mmol/L Anion Gap 12 H (2-11) mmol/L BUN 76 H (6-24) mg/dL Creatinine 12.62 H (0.67-1.17) mg/dL Est GFR ( Amer) 5.2 (>60) Est GFR (Non-Af Amer) 4.0 (>60) BUN/Creatinine Ratio 6.0 L (8-20) Glucose 95 (70-100) mg/dL Lactic Acid (0.5-2.0) mmol/L Calcium 10.2 (8.6-10.3) mg/dL Total Bilirubin 0.70 (0.2-1.0) mg/dL AST TNP ALT 18 (7-52) U/L Alkaline Phosphatase 73 (34-104) U/L Troponin I 0.05 H* (<0.04) ng/mL C-Reactive Protein < 1.00 (<8.01) mg/L Total Protein 8.7 (6.4-8.9) g/dL Albumin 4.5 (3.2-5.2) g/dL Globulin 4.2 H (2-4) g/dL Albumin/Globulin Ratio 1.1 (1-3) Lipase 26 (11.0-82.0) U/L 04/06/18 04/06/18 Range/Units 20:10 21:01 WBC (3.5-10.8) 10^3/ul RBC (4.00-5.40) 10^6/ul Hgb (14.0-18.0) g/dl Hct (42-52) % MCV (80-94) fL MCH (27-31) pg MCHC (31-36) g/dl RDW (10.5-15) % Plt Count (150-450) 10^3/ul MPV (7.4-10.4) um3 Neut % (Auto) (38-83) % Lymph % (Auto) (25-47) % [place] % (Auto) (0-7) % Eos % (Auto) (0-6) % Baso % (Auto) (0-2) % Absolute Neuts (auto) (1.5-7.7) 10^3/ul Absolute Lymphs (auto) (1.0-4.8) 10^3/ul Absolute Monos (auto) (0-0.8) 10^3/ul Absolute Eos (auto) (0-0.6) 10^3/ul Absolute Basos (auto) (0-0.2) 10^3/ul Absolute Nucleated RBC 10^3/ul Nucleated RBC % INR (Anticoag Therapy) (0.77-1.02) APTT (26.0-36.3) seconds Sodium (135-145) mmol/L Potassium 7.0 H* Chloride (101-111) mmol/L Carbon Dioxide (22-32) mmol/L Anion Gap (2-11) mmol/L BUN (6-24) mg/dL Creatinine (0.67-1.17) mg/dL Est GFR ( Amer) (>60) Est GFR (Non-Af Amer) (>60) BUN/Creatinine Ratio (8-20) Glucose (70-100) mg/dL Lactic Acid 1.2 (0.5-2.0) mmol/L Calcium (8.6-10.3) mg/dL Total Bilirubin (0.2-1.0) mg/dL AST 29 ALT (7-52) U/L Alkaline Phosphatase (34-104) U/L Troponin I (<0.04) ng/mL C-Reactive Protein (<8.01) mg/L Total Protein (6.4-8.9) g/dL Albumin (3.2-5.2) g/dL Globulin (2-4) g/dL Albumin/Globulin Ratio (1-3) Lipase (11.0-82.0) U/L Result Diagrams: 04/06/18 20:10 04/06/18 21:01 Lab Statement: Any lab studies that have been ordered have been reviewed, and results considered in the medical decision making process. - Radiology CXR Xray Interpretation: Positive (See Comments) - RELATIVE TO THE MOST RECENT CHEST X-RAY DATED FEBRUARY 09, 2018, CHEST X-RAY FINDINGS ARE CONSISTENT WITH WORSENING CARDIOGENIC PULMONARY EDEMA. Radiology Interpretation Completed By: Radiologist - 1. RELATIVE TO THE MOST RECENT CHEST X-RAY DATED FEBRUARY 09, 2018, CHEST X-RAY FINDINGS ARE CONSISTENT WITH WORSENING CARDIOGENIC PULMONARY EDEMA. 2. THERE ARE NO RADIOGRAPHICALLY APPARENT ACUTE ABNORMALITIES OF THE ABDOMEN. Dr. Reddy has reviewed this radiology report. abd XR Xray Interpretation: No Acute Changes Radiology Interpretation Completed By: Radiologist - No radiographically apparent acute abnormality of the abdomen. Dr. Reddy has reviewed this radiology report. - EKG 2128 Cardiac Rate: NL - 74 EKG Rhythm: Sinus Rhythm ST Segment: Non-Specific - peaked T-waves in lateal and anterior leads EKG Interpretation: left ventricular hypertrophy Re-Evaluation - Re-Evaluation First Eval Re-Evaluation Time: 20:25 Change: Unchanged Comment: Discuss breathing treatment, wont be effective because it was found that pt has CHF not COPD. Second Eval Re-Evaluation Time: 21:13 Change: Improved - Pt endorses breathing better. Course/Dx - Course Course Of Treatment: Medications reviewed. Allergies noted. DISCUSSED WITH DR ALARCON. ADMIT HOSPITALIST. - Diagnoses Provider Diagnoses: Hyperkalemia, Chest pain, Abdominal pain, Dyspnea - Physician Notifications Discussed Care of Patient With: Bernarda Mendoza Time Discussed With Above Provider: 21:41 Instructed by Provider To: Other - discuss pt sx, results, and care, recommended speaking with Dr. Alarcon. - Critical Care Time Critical Care Time: 30-74 min Discharge - Sign-Out/Discharge Documenting (check all that apply): Discharge/Admit/Transfer - Discharge Plan Condition: Stable Disposition: ADMITTED TO [facility] Referrals: Marielena Vargas MD [Primary Care Provider] - Jose Eduardo Alarcon MD [Medical Doctor] - Additional Instructions: FOLLOW UP WITH YOUR PRIMARY CARE DOCTOR AND DR ALARCON. RETURN TO THE EMERGENCY DEPARTMENT FOR ANY WORSENING OF YOUR CONDITION OR QUESTIONS OR CONCERNS. - Billing Disposition and Condition Condition: STABLE Disposition: Admitted to [facility] Consult Consult: Dr. Alarcon nursing staffing coordinator at 2147, discussed elevated K+ levels, EKG, treatment in ED so far, possible further treatment with kayexalate. Dr. Alarcon recommended admission. The documentation as recorded by the Dusty casey Simon accurately reflects the service I personally performed and the decisions made by me, Rafa Reddy MD.
[2018-04-06] MEDS ORDERED: Albuterol inh POWDER (NF) 1 PUFF MDI INH PRN (22:34)
[2018-04-06] MEDS ORDERED: LORazepam TAB(*) 0.5 MG PO PRN (22:34)
[2018-04-06] MEDS ORDERED: Polyethylene Glycol 3350* 17 GM PACKET PO PRN (22:34)
[2018-04-06] MEDS ORDERED: SCOP/HYOS/ATR/PB(NF) 10 ML UDC PO PRN (22:34)
[2018-04-06] MEDS ORDERED: Ibuprofen TAB* 600 MG PO PRN (22:34)
[2018-04-06] MEDS ORDERED: Ondansetron TAB* 4 MG PO PRN (22:34)
[2018-04-06] MEDS ORDERED: amLODIPine TAB* 5 MG PO SCH (23:00)
[2018-04-06] MEDS ORDERED: Nitroglycerin 0.1 mg/Hr PATCH* (2.5 MG) TRANSDERM SCH (23:00)
[2018-04-06] MEDS ORDERED: traZODone TAB* 100 MG PO SCH (23:00)
[2018-04-06] MEDS ORDERED: Albuterol 2.5 MG/3 ML NEB.SOL* (0.083%) INH PRN (23:01)
[2018-04-07] MEDS: Omeprazole CAP* 20 MG PO SCH ×2 (00:21→08:05)
[2018-04-07] MEDS: hydrALAZINE TAB* 25 MG PO SCH ×3 (00:21→12:50)
[2018-04-07] MEDS: Cyclobenzaprine TAB* 10 MG PO PRN ×2 (00:23→08:05)
[2018-04-07] MEDS: Heparin VIAL(*) 5000 UNITS/ML VIAL (FIVE THOUSAND) SUBCUT SCH ×2 (05:48→12:50)
[2018-04-07] MEDS ORDERED: Benzocaine/Menthol LOZ* 1 LOZENGE PO PRN (05:56)
[2018-04-07 06:36] LABS: Hematocrit 28 % (42-52); Hemoglobin 9.4 g/dl (14.0-18.0); Mean Corpuscular HGB Conc 34 g/dl (31-36); Mean Corpuscular Hemoglobin 31 pg (27-31); Mean Corpuscular Volume 92 fL (80-94); Red Cell Distribution Width 17 % (10.5-15); White Blood Count 3.8 10^3/ul (3.5-10.8)
[2018-04-07 06:49] LABS: EGFR Non-African American 3.7 (>60)
[2018-04-07 06:57] LABS: ABS Basophils 0 10^3/ul (0-0.2); ABS Eosinophils 0.1 10^3/ul (0-0.6); ABS Lymphocytes 0.7 10^3/ul (1.0-4.8); ABS Monocytes 0.5 10^3/ul (0-0.8); ABS Neutrophils 2.5 10^3/ul (1.5-7.7); ABS Nucleated RBC 0 10^3/ul; Eosinophil % 1.7 % (0-6); Lymphocyte % 18.1 % (25-47); Mean Platelet Volume 8.2 um3 (7.4-10.4); Nucleated Red Blood Cells % 0; Platelet Count 89 10^3/ul (150-450)
[2018-04-07] MEDS: Carvedilol TAB* 6.25 MG PO SCH ×3 (08:05→20:00)
[2018-04-07] MEDS: Gabapentin CAP(*) 300 MG PO SCH ×2 (08:05→12:51)
[2018-04-07] MEDS: Pancrelipase CAP* 5,000 UNITS CAP PO SCH ×3 (08:05→17:57)
[2018-04-07] MEDS ORDERED: Nitro Patch/OINT Remove PATCH OFF SCH (09:00)
[2018-04-07] MEDS ORDERED: Sodium Polystyrene ORAL.SOL* 15 GM/60 ML BTL PO SCH (09:00)
[2018-04-07] MEDS ORDERED: Econazole 1% CREAM (NF) 1 TUBE TOPICAL SCH (09:00)
[2018-04-07] MEDS ORDERED: Folic Acid TAB* 1 MG PO SCH (09:00)
[2018-04-07] MEDS: Calcium Acetate CAP* 667 MG PO SCH ×4 (09:27→19:59)
--- NOTE | 2018-04-07 10:17 | HP ---
CC: Marielena Vargas MD; Jose Eduardo Dalal MD* HISTORY AND PHYSICAL: DATE OF ADMISSION: 04/06/18 TIME OF EVALUATION: 0. PRIMARY CARE PHYSICIAN: Marielena Vargas MD SLOT EDITOR: Jose Eduardo Dalal MD CHIEF COMPLAINT: Shortness of breath and chest pain. HISTORY OF PRESENT ILLNESS: Mr. Templeton is a 67-year-old male with a past medical history of end-stage renal disease, on hemodialysis; coronary disease; COPD, who is well known to the hospital, who presents to the emergency room with shortness of breath, chest pain, and diarrhea. The patient was receiving nebulizer treatment with improvement in his breathing. He had labs done that showed potassium of 7 and he was notified by Dr. Dalal and recommendation for admission in the setting of peaked T waves and for dialysis. The patient states he missed 04/05/18, yesterday for dialysis because he has been having a lot of diarrhea. In the emergency room, they gave him calcium carbonate , insulin, glucose, and attempted to give him Kayexalate, but he refused stating he poops enough, he does not need it, he does not take Kayexalate at home. When asked how much diarrhea he is having, he says too many to count. He states he takes all of his other medications as prescribed. He denies any changes in his medications. He states his breathing has improved since his nebulizer treatment. He still has some mild chest discomfort. He has a dry cough. No nausea, vomiting. No abdominal pain and no fevers or chills. No changes in his weight. Otherwise, review of systems is negative. PAST MEDICAL HISTORY: 1. This is his 14th emergency room visit, his fourth admission this year. 2. End-stage renal disease, on hemodialysis, Thursday, Thursday, and Thursday. 3. History of thrombosed internal jugular and separate right upper extremity DVT, on anticoagulation. 4. History of coronary artery disease, status post bypass. 5. History of cardiomyopathy, status post AICD, EF of 40%. 6. History of mitral and tricuspid valve repairs. 7. History of atrial fibrillation. 8. Peripheral arterial disease. 9. History of hepatitis C. 10. GERD. 11. Anemia of chronic disease. 12. Chronic pain. MEDICATIONS: According to the med rec, the patient does not take his Kayexalate. 1. Hydralazine 25 mg p.o. t.i.d. 2. Ambien 10 mg at bedtime as needed. 3. Coumadin 5 mg daily. 4. Parul-Dameon 1 mg daily. 5. Triamcinolone apply topically b.i.d. 6. Trazodone 100 mg at bedtime. 7. Velphoro 1000 mg p.o. t.i.d. with meals. 8. Zocor 5 mg p.o. at bedtime. 9. Simethicone 1 tab t.i.d. as needed for gas. 10. Zantac 150 mg daily. 11. MiraLAX 17 g daily as needed. 12. 10 mL daily as needed. 13. Zofran 4 mg every 6 hours as needed. 14. Omeprazole 40 mg p.o. b.i.d. 15. Nitro 0.4 mg sublingual q.5 minutes as needed. 16. Topical nitro patch. 17. Mupirocin as needed. 18. Meclizine 25 mg as needed. 19. Amitiza 1 cap p.o. daily. 20. Lisinopril 10 mg daily. 21. Zenpep 15,000 units p.o. t.i.d. 22. Lorazepam 0.5 mg at bedtime as needed. 23. Venofer 100 mg IV as instructed. 24. Ibuprofen 600 mg t.i.d. as needed. 25. Hydrocortisone cream b.i.d. 26. Gabapentin 300 mg p.o. t.i.d. 27. Lasix 20 mg in the morning. 28. Nephro-Dameon tablet 25 mg daily. 29. Folic acid 0.5 mg daily. 30. Lexapro 10 mg daily. 31. Epogen as needed. 32. Econazole b.i.d. 33. Duloxetine 30 mg in the morning. 34. Colace 100 mg p.o. b.i.d. 35. Voltaren as needed. 36. Cyclobenzaprine 5 mg p.o. t.i.d. as needed. 37. Sensipar 30 mg daily. 38. Coreg 12.5 mg p.o. b.i.d. with meals. 39. PhosLo caps 667 mg p.o. t.i.d. with meals. 40. Norvasc 10 mg daily. 41. Albuterol inhaler as needed. ALLERGIES: ASPIRIN, HYDROMORPHONE. FAMILY HISTORY: Reviewed, noncontributory. SOCIAL HISTORY: The patient does live with his girlfriend, Seble. He states he tries to ambulate, but often uses a motorized scooter. He smokes marijuana daily for pain. No alcohol or illicit drug use. His healthcare proxy is his girlfriend, Seble. CODE STATUS: Full code. REVIEW OF SYSTEMS: A 14-point review of systems as mentioned in the HPI, otherwise negative. PHYSICAL EXAMINATION GENERAL: No acute distress, sitting upright. VITAL SIGNS: Temp 98.5, pulse rate 74, respiratory rate 16, oxygen saturation 100% on 3 L, blood pressure is 206/143. HEENT: Head: Normocephalic. Pupils are equal and reactive. Conjunctivae are injected. Oropharynx: Mucous membranes are moist. NECK: Supple. RESPIRATORY: Diminished breath sounds. Bilateral expiratory wheezing. No increased work of breathing. No retractions. CARDIAC: Regular rate and rhythm. Systolic murmur most prominent over the left sternal base. ABDOMEN: Soft, nontender, nondistended. EXTREMITIES: Trace pretibial edema. NEUROLOGICAL: Alert and oriented x3. No gross focal neurologic deficits. DIAGNOSTIC STUDIES/LAB DATA: White count 3.6, hemoglobin 10, hematocrit 30, platelets 120. INR 2.63. Sodium 137, potassium 7, chloride 96, bicarb 29, anion gap of 12, BUN 76, creatinine 12, glucose 95. Troponin 0.05. Radiographic data: Most recent chest x-ray on 02/09/18, chest x-ray findings are consistent with worsening cardiogenic pulmonary edema. There are no radiographically apparent acute abnormalities of the abdomen. EKG shows normal sinus rhythm with peaked T waves in the lateral leads and nonspecific T-wave changes in the lateral leads as well. ASSESSMENT AND PLAN: This is a 67-year-old male, who is well known to the hospitalist service with a past medical history of end-stage renal disease, on dialysis; coronary artery disease, who presents to the emergency room with shortness of breath and diarrhea, found to have potassium of 7. 1. Hyperkalemia. Assessment: The patient missed his Thursday dialysis due to diarrhea, which one would suspect that this would bring his potassium down. I am not sure how forthcoming he is. He refused his Kayexalate because he had a lot of diarrhea at home. Dr. Dalal was notified. The plan is to go to dialysis in the morning. We will continue to try to encourage him to take the Kayexalate if he is not starting to have bowel movements here. We will monitor his I's and O's and repeat his labs in the morning. 2. Diarrhea. Assessment: The patient is on a number of bowel medications for constipation. I wonder if he is taking too many bowel meds causing him to have diarrhea. Plan: We will hold his Amitiza and resume his bowel meds as needed for constipation. His abdominal exam is benign. 3. Chest pain, shortness of breath. Assessment: The patient smokes marijuana daily. His chest x-ray also suggests pulmonary edema could be multifactorial from chronic obstructive pulmonary disease related and volume overload. He improved with the nebulizer treatment. We will continue these and the patient to get dialysis in the morning. CHRONIC MEDICAL PROBLEMS: We will resume his home medications. According to the med rec, he is also on a number of sleep aids, I am going to hold his Ambien as he is already getting trazodone and Ativan. Recommend the patient to have a full VNS visit to review his medications, so he is educated on what are scheduled and what are as needed medications. FEN: Place the patient on a renal diet. DVT prophylaxis: The patient scores moderate risk. He is on Coumadin. Code status: Full code. PATIENT TIME: Greater than 60 minutes was spent doing history and physical, more than half the time was spent in direct patient contact. [id number]/[facility] #: [id number] STEPHANIE
[2018-04-07 12:22] VITALS: BP 178/130
[2018-04-07] MEDS ORDERED: Heparin DIALYSIS ONLY(*) 1,000 UNITS/ML VIAL DIALYSIS ONE (16:00)
[2018-04-07] MEDS ORDERED: Epoetin Alfa* 4,000 UNITS/ML VIAL IV ONE (16:00)
[2018-04-07] MEDS ORDERED: Warfarin TAB(*) 5 MG PO SCH (17:00)
[2018-04-07] MEDS: Cinacalcet TAB* 30 MG PO SCH ×2 (17:56→19:58)
[2018-04-07] MEDS: Lisinopril TAB* 10 MG PO SCH ×2 (17:56→19:58)
[2018-04-07] MEDS: Citalopram TAB* 20 MG PO SCH ×2 (17:56→19:58)
[2018-04-07] MEDS: Famotidine TAB* 20 MG PO SCH ×2 (17:57→19:58)
[2018-04-07] MEDS: DULoxetine DR CAP* 30 MG CAP.DR PO SCH ×2 (17:57→19:58)
[2018-04-07] MEDS: Furosemide TAB* 20 MG PO SCH ×2 (17:57→19:58)
[2018-04-07] MEDS ORDERED: hydrALAZINE IV* 20 MG/ML VIAL IV SLOW PU ONE (18:02)
[2018-04-07] MEDS ORDERED: CMCS: Simvastatin TAB(NF) 10 MG TAB PO SCH (21:00)
--- NOTE | 2018-04-08 16:22 | DS ---
CC: Dr. Dalal; Dr. Vargas * DISCHARGE SUMMARY: DATE OF ADMISSION: 04/06/18 DATE OF DISCHARGE: 04/07/18 PRIMARY CARE PROVIDER: Dr. Vargas. DISCHARGE DIAGNOSIS: Chest pain and hyperkalemia in the patient who missed dialysis. MEDICATIONS AT DISCHARGE: Unchanged from admission and include: 1. Albuterol inhaler on a p.r.n. basis. 2. Norvasc 10 mg daily. 3. PhosLo 667 mg 3 times a day. 4. Coreg 12.5 mg b.i.d. 5. Sensipar 30 mg daily. 6. Flexeril 5 mg 3 times a day p.r.n. 7. Voltaren gel on a p.r.n. basis. 8. Colace 100 mg b.i.d. 9. Duloxetine 30 mg daily. 10. Econazole 1% cream b.i.d. to affected areas on the skin. 11. Lexapro 10 mg daily. 12. Folic acid 0.5 mg daily. 13. Folic acid with vitamin B complex 25 mg daily. 14. Furosemide 20 mg daily. 15. Neurontin 300 mg 2 times a day. 16. Hydralazine 25 mg 3 times a day. 17. Hydrocortisone cream 1% 1 application topically b.i.d. to affected areas on the skin. 18. Ibuprofen on a p.r.n. basis. 19. Venofer with dialysis as per Dr. Dalal. 20. Zenpep 15,000 units 3 times a day. 21. Lisinopril 10 mg daily. 22. Lorazepam 0.5 mg at bedtime. 23. Lubiprostone 24 mcg daily. 24. Meclizine 25 mg on a p.r.n. basis. 25. Nitroglycerin patch 0.2 mg topically at bedtime. 26. Omeprazole 40 mg b.i.d. 27. Zofran on a p.r.n. basis. 28. Elixir 16.2 mg/5 mL, the patient to take 10 mL daily p.r.n. 29. MiraLax 17 g daily p.r.n. 30. Zantac 150 mg daily. 31. Simethicone 80 mg 3 times a day p.r.n. 32. Zocor 5 mg at bedtime. 33. Kayexalate 15 g daily p.r.n. as recommended by Dr. Dalal. 34. Trazodone 100 mg q.p.m. 35. Coumadin 5 mg daily. 36. Ambien 10 mg at bedtime p.r.n. LABORATORY DATA AND STUDIES PERFORMED DURING THE HOSPITAL STAY: On 04/07/18, white blood cell count 3.8, hemoglobin 9.4, hematocrit of 28, and platelets of 89,000. The patient's INR was 2.63. Sodium 137, potassium 6.5, chloride 99, carbon dioxide 27, BUN 81, creatinine 13.5. That was prior to the patient's hemodialysis today. Troponin was 0.04. PROCEDURE PERFORMED DURING THE HOSPITAL STAY: Included hemodialysis. HOSPITALIZATION COURSE: Pato Templeton is a 67-year-old male known to us from multiple admissions to the hospital for hyperkalemia and hypertension, who has history of noncompliance and who presented after missing his dialysis on Thursday with systolic pressure 222. The patient has known hypertension and infarct when his blood pressure is lowered too much, which for him would be in the 160s , 150s range systolic blood pressures. He occasionally in the past became encephalopathic. The patient was noted to have significant hyperkalemia and admitted to the hospital for dialysis. He was dialyzed on the day of discharge. Per Dr. Dalal , the patient was dialyzed with low potassium solution and his potassium after dialysis did not need to be checked. He is due for dialysis on 04/09/18. After the patient's dialysis, the patient's chest pain that he usually experiences from fluid overload resolved. The patient's troponins continued to be indeterminate, which is chronic in this patient. He had 1 episode of stool with blood streaking due to his history of hemorrhoids, which was also chronic. At discharge, the patient's systolic pressures are still markedly elevated with 170/102 recorded by the dialysis nurse. Nevertheless, he is still due to receive his oral medications prior to discharge tonight. Also, from the discussion with the dialysis unit nurse, the patient usually has blood pressures in this range. PHYSICAL EXAM: At the time of discharge, blood pressure 170/102, heart rate of 72 and regular, respiratory rate 16, oxygen saturation 95% on room air. General : The patient is a very pleasant 67-year-old male who is in no acute distress. Alert and oriented x3. HEENT: Head: Atraumatic, normocephalic. Eyes: Pupils are equal, reactive to light and accommodation. Oropharynx is clear. Mucosa moist. Neck: Supple. No JVD. No bruits bilaterally. Cardiovascular: Regular rate and rhythm. No murmur. Respiratory: Clear to auscultation bilaterally. Abdomen: Soft, nontender. Bowel sounds are present in all 4 quadrants. Extremities: There is no edema. Pulses are +2 bilaterally. There is no clubbing or cyanosis. Neuro Evaluation: Speech is clear. Cranial nerves II through XII are grossly intact. Motor strength is 5/5 bilaterally. Please note that this a short summary of the patient's hospitalization. Please refer to further medical records for details. The patient is recommended to follow with his primary care provider, Dr. Vargas , with an appointment scheduled on 04/09/18 at 10 a.m. [id number]/[facility] #: [id number] STEPHANIE
== END 2018-04-07 19:15 | disposition home or self-care (01) ==
LOC: ED 16:46 → ICU 22:29 → MED 04-07 11:15
PROVIDERS: ADMIT Pediatrics; ATTEND Internal Medicine
DX: R07.9 Chest pain, unspecified (principal); R06.02 Shortness of breath; E87.5 Hyperkalemia; R19.7 Diarrhea, unspecified; I12.0 Hypertensive chronic kidney disease with stage 5 chronic kidney disease or end stage renal disease; N18.6 End stage renal disease; Z99.2 Dependence on renal dialysis; Z91.15 Patient's noncompliance with renal dialysis; Z86.718 Personal history of other venous thrombosis and embolism; Z79.01 Long term (current) use of anticoagulants; I25.10 Atherosclerotic heart disease of native coronary artery without angina pectoris; Z95.1 Presence of aortocoronary bypass graft; I42.9 Cardiomyopathy, unspecified; Z95.810 Presence of automatic (implantable) cardiac defibrillator; I48.91 Unspecified atrial fibrillation; I73.9 Peripheral vascular disease, unspecified; B19.20 Unspecified viral hepatitis C without hepatic coma; D63.1 Anemia in chronic kidney disease; K21.9 Gastro-esophageal reflux disease without esophagitis; G89.29 Other chronic pain; Z88.5 Allergy status to narcotic agent; Z79.899 Other long term (current) drug therapy; Z87.891 Personal history of nicotine dependence; R94.31 Abnormal electrocardiogram [ECG] [EKG]
CPT/HCPCS: 36415; 71045; 74018; 80048; 80053; 83605; 83690; 84484; 85025; 85610; 85730; 86140; 87641; 93005; 94640; 96374; 96375; 96376; 99285; A9270-GY; G0378; J0360; J0885; J1644; J2270

== ENCOUNTER 2018-04-20 19:36 | Inpatient (IN) | payer MEDICARE, OTHER ==
[2018-04-20] MEDS ORDERED: Morphine VIAL* 4 MG/ML VIAL (1 ml vial) IV ONE (20:12)
[2018-04-20] MEDS ORDERED: Metoclopramide IV* 5 MG/ML 2 ML VIAL IV SLOW PU ONE (20:13)
[2018-04-20] MEDS ORDERED: Albuterol/Ipratropium NEB.SOL* Albuterol 2.5 MG/Ipratropium 0.5 MG 3 ML INH ONE (20:14)
[2018-04-20] MEDS ORDERED: Diphenoxylat/Atrop 2.5-0.025M* 1 TAB PO ONE (20:14)
[2018-04-20 20:39] LABS: ABS Basophils 0.1 10^3/ul (0-0.2); ABS Eosinophils 0 10^3/ul (0-0.6); ABS Lymphocytes 0.6 10^3/ul (1.0-4.8); ABS Monocytes 0.6 10^3/ul (0-0.8); ABS Neutrophils 2.6 10^3/ul (1.5-7.7); ABS Nucleated RBC 0 10^3/ul; Eosinophil % 1.2 % (0-6); Hematocrit 31 % (42-52); Hemoglobin 10.4 g/dl (14.0-18.0); Lymphocyte % 16.2 % (25-47); Mean Corpuscular HGB Conc 33 g/dl (31-36); Mean Corpuscular Hemoglobin 31 pg (27-31); Mean Corpuscular Volume 93 fL (80-94); Mean Platelet Volume 8.2 um3 (7.4-10.4); Nucleated Red Blood Cells % 0; Platelet Count 102 10^3/ul (150-450); Red Blood Count 3.39 10^6/ul (4.00-5.40); Red Cell Distribution Width 17 % (10.5-15); White Blood Count 3.9 10^3/ul (3.5-10.8)
[2018-04-20 21:03] LABS: EGFR Non-African American 3.9 (>60)
--- NOTE | 2018-04-20 21:55 | RAD ---
Indication: Abdominal pain. CT of the abdomen and pelvis was performed without oral or IV contrast administration. Coronal and sagittal reconstructed images were obtained. There is cardiomegaly noted. Bibasilar airspace disease is noted. Liver is enlarged. No focal lesions or intrahepatic ductal dilatation is noted. The spleen is at the upper limits of normal size. The gallbladder is partially contracted with no calcified gallstones. The pancreas is poorly defined shows no focal mass. Small bowel demonstrates no abnormal dilatation. The colon is filled with stool. Both kidneys appear to be atrophic. No obvious adrenal masses are noted. Mild diffuse edema is noted throughout the mesentery and subcutaneous tissue. The prostate is enlarged. The urinary bladder is collapsed. Patient status post appendectomy. Atherosclerotic aorta is noted. IMPRESSION: Mild diffuse edema in the subcutaneous tissue in the mesentery. No abnormal masses or fluid collections are identified. End-stage renal disease. Enlarged liver. The study is limited due to lack of oral and IV contrast. Overall no significant change is noted since January 13, 2018. There appears to be chronic airspace disease in the lung bases with pleural thickening and/or scarring findings are similar to that identified on previous exam.
--- NOTE | 2018-04-20 22:04 | RAD ---
Indication: Shortness of breath. Single frontal view of the chest performed at 2056 hours was reviewed. Comparison is made with previous exam dated April 06, 2018. Cardiomegaly is noted. Persistent chronic pleural changes are noted in the left costophrenic angle with persistent left basilar airspace disease. Interstitial edema is noted. Hemodialysis catheter is in place. Patient is status post transsternal thoracotomy. IMPRESSION: CARDIOMEGALY WITH CHRONIC INTERSTITIAL DISEASE AND CHRONIC LEFT BASILAR ATELECTASIS AND SCARRING WITH LEFT PLEURAL EFFUSION. OVERALL NO SIGNIFICANT CHANGE IS NOTED SINCE APRIL 06, 2018.
[2018-04-20] MEDS ORDERED: Labetalol IV* 5 MG/ML 20 ML VIAL IV PUSH ONE (22:28)
[2018-04-20] MEDS: Labetalol IV* 5 MG/ML 20 ML VIAL IV PUSH PRN (23:28)
[2018-04-20] MEDS ORDERED: niCARdipine 0.1MG/ML IVPREMIX* 20 MG/200 ML BAG IV ONE (23:47)
[2018-04-21] MEDS ORDERED: oxyCODONE TAB* 5 MG TAB PO PRN (00:40)
[2018-04-21] MEDS ORDERED: Albuterol HFA INHALER* 8 gm MDI INH PRN (00:40)
[2018-04-21] MEDS ORDERED: Nitroglycerin TAB 0.4 MG* 0.4 MG TAB SL PRN (00:40)
[2018-04-21] MEDS ORDERED: Cyclobenzaprine TAB* 10 MG PO PRN (00:40)
[2018-04-21] MEDS ORDERED: Ibuprofen TAB* 600 MG PO PRN (00:40)
[2018-04-21] MEDS ORDERED: Simethicone TAB* 80 MG TAB.CHEW PO PRN (00:40)
[2018-04-21] MEDS ORDERED: Ondansetron TAB* 4 MG PO PRN (00:40)
[2018-04-21] MEDS ORDERED: Zolpidem TAB* 10 MG PO PRN (00:40)
[2018-04-21] MEDS ORDERED: LORazepam TAB(*) 0.5 MG PO PRN (00:40)
[2018-04-21] MEDS ORDERED: SCOP/HYOS/ATR/PB(NF) 10 ML UDC PO PRN (00:40)
[2018-04-21] MEDS ORDERED: Diclofenac 1% GEL (NF) 100 GM TUBE TOPICAL PRN (00:40)
[2018-04-21 00:52] LABS: INR 1.78 (0.77-1.02)
[2018-04-21] MEDS ORDERED: Al Hydrox/Mg Hydrox/Simet LIQ* 30 ML UDC PO PRN (02:24)
[2018-04-21] MEDS: Labetalol IV* 5 MG/ML 20 ML VIAL IV PUSH PRN (03:19)
[2018-04-21] MEDS ORDERED: Benzocaine/Menthol LOZ* 1 LOZENGE PO PRN (03:42)
[2018-04-21] MEDS ORDERED: niCARdipine 0.1MG/ML IVPREMIX* 20 MG/200 ML BAG IV SCH (04:00)
--- NOTE | 2018-04-21 04:33 | HP ---
CC: Dr. Vargas* ADMISSION HISTORY AND PHYSICAL: DATE OF ADMISSION: 04/21/2018. PRIMARY CARE PROVIDER: Marielena Vargas MD. HEALTHCARE PROXY: The patient does not want to identify healthcare proxy at this time. CODE STATUS: Full. SOURCE OF INFORMATION: History is obtained from interview with Mr. Templeton as well as review of past medical records. RELIABILITY: Fair to poor. CHIEF COMPLAINT: Diarrhea and chest pain, abdominal pain. HISTORY OF PRESENT ILLNESS: This is a 67-year-old man with multiple admissions and visits to [facility] [place], presenting to the hospital with chest pain started yesterday as well as pain in the stomach as well as diarrhea since yesterday. He gives a vague history of each of the above with difficult to elucidate details. He does note that the chest pain has been on and off, nothing makes it better or worse. He describes as aching, substernal, and nonradiating. He notes he has shortness of breath that is not associated with chest pain. Additionally, he notes abdominal pain. It was noted as aching in midline, noted as constant, feels different than the chest pain that he had in March, but cannot detail how it is different. He notes diarrhea since yesterday so many times, he cannot count, one time since presenting to the emergency room. It was noted that when he was discharged from March he is prescribed multiple medications for constipation. He notes he has been taking his medications appropriately and has not missed any doses, which may indicate he is still taking medications for constipation. Upon presentation to the emergency room, he was noted with systolic blood pressure of 216, peaked as high as 232/171. He received a total of 60 mg of IV labetalol without any improvement in his blood pressure for starting a nicardipine drip and the hospitalist service was consulted for admission. When seen by this author, his systolic blood pressures were 170. He noted that he felt "a lot better." He noted that his chest pain resolved. His diarrhea has improved, although he does still have abdominal pain upon palpation. Of note, he receives hemodialysis on Thursday, Thursday, and Thursday and he missed his last dialysis session, which would have been on Thursday. PAST MEDICAL HISTORY: Includes end-stage renal disease, on hemodialysis Thursday , Thursday, Thursday. 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 INR is currently pending. He has history of CAD, status post CABG. He has a systolic cardiomyopathy, status post ICD. Last EF 40%. He has mitral and tricuspid valve repairs. He has history of atrial fibrillation, on Coumadin. He has peripheral vascular disease , hepatitis C, GERD, chronic anemia, and chronic pain. MEDICATIONS: Unchanged from previous admission in March include: 1. Oxycodone 15 mg every 4 hours. 2. Hydralazine 25 mg 3 times a day. 3. Trazodone 100 mg at bedtime. 4. Zolpidem 10 mg at bedtime. 5. Coumadin 5 mg in the evening. 6. Parul-Dameon Rx one tab daily. 7. Triamcinolone cream topically twice daily. 8. Velphoro 1000 mg 3 times a day with meals. 9. Kayexalate 15 g daily. 10. Simvastatin 5 mg at bedtime. 11. Simethicone 80 mg 3 times a day as needed. 12. Zantac 150 mg daily. 13. MiraLAX 17 g in the evening. 14. 10 mL daily as needed. 15. Zofran 4 mg every 6 hours as needed. 16. Omeprazole 40 mg twice daily. 17. Nitroglycerin patch 5 mg transdermally daily. 18. Nitroglycerin 0.4 mg sublingual every 5 minutes as needed. 19. Bactroban 2% topically daily as needed. 20. Meclizine 25 mg daily. 21. Lubiprostone 24 mcg daily. 22. Lisinopril 10 mg daily. 23[address] Zenpep [address] 3 times a day. 24. Lorazepam 0.5 mg at bedtime as needed. 25. Venofer 100 mg IV. 26. Ibuprofen 600 mg 3 times a day as needed. 27. Hydrocortisone topically twice daily as needed. 28. Gabapentin 300 mg 3 times a day. 29. Lasix 20 mg in the morning. 30. Nephro Dameon tablet 25 mg daily. 31. Folic acid 0.5 mg daily. 32. Lexapro 10 mg daily. 33. Epogen as prescribed by Nephrology. 34. Econazole topically twice daily. 35. Duloxetine 30 mg daily. 36. Docusate 100 mg twice daily as needed. 37. Diclofenac topically twice daily. 38. Cyclobenzaprine 5 mg 3 times daily as needed. 39. Sensipar 30 mg daily. 40. Carvedilol 12.5 mg twice daily. 41. Calcium acetate 667 mg 3 times a day with meals. 42. Amlodipine 10 mg daily. 43. Albuterol 180 mcg every 4 hours as needed. ALLERGIES: To ASPIRIN and HYDROMORPHONE. FAMILY HISTORY: Reviewed and noncontributory to this admission. SOCIAL HISTORY: Smokes marijuana daily. No alcohol, no illicits. Previously identified his girlfriend, Seble, as healthcare proxy, however, he does not need a healthcare proxy today. REVIEW OF SYSTEMS: A 14-point review of systems was negative. PHYSICAL EXAMINATION GENERAL: Sitting on the edge of bed, interactive, in no apparent distress. Does appear sleepy, however, is interactive. VITAL SIGNS: When seen by this author, 170/105, heart rate 70, respiratory rate is 12, 97% on room air, T-max 98.3. HEENT: His oropharynx is clear. He has moist mucous membranes. Sclerae is anicteric. LUNGS: Rales in the right base, otherwise clear. HEART: He has regular rate and rhythm. No murmurs, rubs, or gallops. ABDOMEN: Soft. He has tenderness most prominent in the left lower quadrant and suprapubic areas. No rebound or guarding. EXTREMITIES: Warm and well perfused. He has very trace lower extremity edema. NEUROLOGIC: He is alert and oriented x3. His cranial nerves are intact. He has no apparent anxiety, agitation, or depression. DIAGNOSTIC STUDIES/LAB DATA: Data reviewed, notable for hemoglobin 10.4. His INR is 1.78. Potassium 5.7, BUN 67, creatinine 2.9, lactic acid 1.5. CRP less than 1. BNP 6851. Troponin I is pending. Data reviewed, CT of his abdomen and pelvis, mild diffuse edema in the subcutaneous tissue and the mesentery. No abnormal masses or fluid collections are identified and enlarged liver. The study is limited due to lack of oral and IV contrast. No significant changes noticed since 01/13/18. There does appear to be chronic airspace disease in the lung base with pleural thickening and/or scarring. Findings are similar to that identified on previous exam. EKG, sinus tachycardia, left axis of the anterior fascicular block. T-wave inversions in V2 alone. No ST or T-wave changes. ASSESSMENT AND PLAN: This is a 67-year-old man with complicated past medical history including coronary artery disease as well as cardiomyopathy, end-stage renal disease, on hemodialysis, presenting with chest pain, abdominal pain, and diarrhea similar to his previous presentation, found with systolic blood pressures greater than 220. Hypertensive urgency. Blood pressure not responsive to 60 mg of IV labetalol. Started on nicardipine drip in the emergency room with good response. Emergency room discussed with Dr. Dalal. He is to be dialyzed tomorrow. Restarted all home oral medications, hopefully in conjunction with dialysis we will titrate off the nicardipine. He may need some adjustments to his blood pressure medications. It was noted in his previous discharge that he has had adverse outcomes with decreasing his blood pressure too low. Chest pain, resolved with blood pressure management. We will check troponin likely to be elevated. Repeat once for stability. Suspect in the setting of hypertensive urgency. Abdominal pain, has been longstanding. No changes on his CAT scan. I do agree his diarrhea is likely in the setting of his complicated medication regimen. I have discontinued all medications that are GI-active except for that which supplement his pancreas including lubiprostone for irritable bowel with constipation predominant symptoms. End-stage renal disease. Continue with dialysis starting tomorrow as noted above. Chronic medical problems. Continue all home medications without change except for those as mentioned above. History of Deep vein thrombosis. Continue Coumadin, repeat INR in the morning as he is subtherapeutic at this time. [id number]/[facility] #: [id number] KALEIDA HEALTHJosette
--- NOTE | 2018-04-21 05:23 | PN ---
Progress Note - Progress Note Date of Service: 04/21/18 Note: Addendum to admission: Transferred to ICU on admission but nicardipine gtt never started (was running in the ED). Blood pressure have been 140-170s. Plan for HD today and resume PO home antihypertensives this AM Will transfer to now
--- NOTE | 2018-04-21 06:04 | ED ---
Wilmer Briones Tiffany, scribed for Yuly Ponce MD on 04/20/18 at 2013 . HPI Chest Pain - HPI Summary HPI Summary: 67 year old M presenting to [facility] complains of mid-sternal chest pain since 12: 00 yesterday. The patient rates the pain 10/10 in severity. Symptoms aggravated by nothing. Symptoms alleviated by nothing. Patient reports shortness of breath. Additionally complains of diffuse abdominal pain, diarrhea, vomiting. He states that he couldn't be dialyzed yesterday. Uses O2 at home. - History of Current Complaint Chief Complaint: EDChestPainROMI Time Seen by Provider: 04/20/18 19:53 Hx Obtained From: Patient Onset/Duration: Started Hours Ago - 12:00 yesterday, Still Present Timing: Constant Current Severity: Severe Pain Intensity: 10 Pain Scale Used: 0-10 Numeric Chest Pain Location: Mid Sternal Aggravating Factor(s): Nothing Alleviating Factor(s): Nothing Associated Signs and Symptoms: Positive: Other: - shortness of breath, diffuse abdominal pain, diarrhea, vomiting - Additional Pertinent History Primary Care Physician: YARIEL - Allergy/Home Medications Allergies/Adverse Reactions: Allergies Allergy/AdvReac Type Severity Reaction Status Date / Time aspirin Allergy "Ever Verified 04/20/18 19:45 since i was a boy i was told not to take aspirin" hydromorphone AdvReac Pt states Verified 04/20/18 19:45 "he feels like a junky" Home Medications: Home Medications Ibuprofen TAB* [Motrin TAB* 600 MG] 600 mg PO TID PRN 04/20/18 [History Confirmed 04/20/18] Lubiprostone 24 MCG CAP (NF) [Amitiza (NF)] 24 mcg PO DAILY 04/20/18 [History Confirmed 04/20/18] Meclizine TAB* [Antivert 12.5 TAB*] 25 mg PO BEDTIME 04/20/18 [History Confirmed 04/20/18] Mupirocin 2% CREAM* [Bactroban 2% CREAM*] 1 applic TOPICAL BID PRN 04/20/18 [ History Confirmed 04/20/18] Nitroglycerin 0.2 MG/HR PATCH* [Nitroglycerin 5 MG PATCH*] 1 patch TRANSDERM DAILY 04/20/18 [History Confirmed 04/20/18] Omeprazole CAP* [Prilosec CAP* 20 MG] 40 mg PO BID 04/20/18 [History Confirmed 04/20/18] Oxycodone HCl [Roxicodone] 15 mg PO Q4HR PRN 04/20/18 [History Confirmed ] Polyethylene Glycol 3350* [Miralax*] 17 gm PO DAILY PRN 04/20/18 [History Confirmed 04/20/18] Scop/Hyos/Atr/Pb(Nf) [ Equivalent Liquid(NF)] 10 ml PO DAILY PRN [History Confirmed 04/20/18] Simethicone TAB* [Mylicon TAB*] 80 mg PO TID PRN 04/20/18 [History Confirmed 01/03] traZODone TAB* [Desyrel TAB*] 100 mg PO BEDTIME 04/20/18 [History Confirmed 01/03] PMH/Surg Hx/FS Hx/Imm Hx Previously Healthy: No Endocrine/Hematology History: Reports: Hx Blood Transfusions, Hx Sickle Cell Disease - Was told had sickle cell at one point but denies, Hx Anemia Denies: Hx Anticoagulant Therapy, Hx Bone Marrow Disease, Hx Diabetes, Hx Thyroid Disease Cardiovascular History: Reports: Hx Angina, Hx Auto Implanted Cardiovert Defib, Hx Congestive Heart Failure, Hx Coronary Artery Disease, Hx Deep Vein Thrombosis , Hx Hypertension, Hx Pacemaker/ICD, Hx Peripheral Vascular Disease, Hx Syncope , Other Cardiovascular Problems/Disorders - cardiomegaly, mitral valve and tricuspid valve repair Denies: Hx Cardiomegaly, Hx Hypercholesterolemia, Hx Myocardial Infarction, Hx Rheumatic Fever, Hx Valvular Heart Disease Respiratory History: Reports: Hx Asthma, Hx Chronic Obstructive Pulmonary Disease (COPD), Hx Pleural Effusion, Hx Pneumonia, Other Respiratory Problems/ Disorders Denies: Hx Pulmonary Edema, Hx Pulmonary Embolism, Hx Sleep Apnea GI History: Reports: Hx Cirrhosis, Hx Gastroesophageal Reflux Disease, Hx Ulcer - peptic ulcer, Other GI Disorders - hep C Denies: Hx Crohn's Disease, Hx Hiatal Hernia, Hx Irritable Bowel, Hx Jaundice History: Reports: Hx Acute Renal Failure, Hx Chronic Renal Failure, Hx Dialysis, Hx Renal Disease, Other Problems/Disorders - end stage renal disease, on dialysis Denies: Hx Kidney Infection, Hx Kidney Stones Musculoskeletal History: Reports: Hx Arthritis, Hx Back Problems - chronic pain , Hx Orthopedic Injury Denies: Hx Rheumatoid Arthritis, Hx Bursitis, Hx Tendonitis, Other Musculoskeletal History Sensory History: Reports: Hx Contacts or Glasses, Hx Glaucoma, Hx Vision Problem Denies: Hx Cataracts, Hx Hearing Aid Opthamlomology History: Reports: Hx Contacts or Glasses, Hx Glaucoma, Hx Vision Problem Denies: Hx Cataracts Neurological History: Reports: Hx Headaches, Hx Migraine, Other Neuro Impairments/Disorders - depression Denies: Hx Dementia, Hx Seizures Psychiatric History: Reports: Hx Anxiety, Hx Depression, Hx Substance Abuse - ETOH Denies: Hx Eating Disorder, Hx Panic Disorder, Hx Suicide Attempt, Hx of Violent Episodes Against Others - Cancer History Hx Chemotherapy: No Hx Radiation Therapy: No Hx Palliative Cancer Treatment: No - Surgical History Surgery Procedure, Year, and Place: HERNIA REPAIR 2012. APPENDECTOMY 2000. LEFT ARM AV FISTULA/CAD - REMOVED. CABG 1 vessel, mitral & tricuspid valve repair March 02, 2014 AT [facility] CONDITIONAL 5 UPTO 3T. POWER PORT. Mitral and tricuspid valve repair Hx Anesthesia Reactions: No - Immunization History Date of Tetanus Vaccine: 2014 Date of Influenza Vaccine: Fall 2015 Infectious Disease History: No Infectious Disease History: Reports: Hx Hepatitis - Hep C, Hx of Known/ Suspected MRSA, History Other Infectious Disease - Hepatitis C Denies: Hx Clostridium Difficile, Hx Human Immunodeficiency Virus (HIV), Hx Shingles, Hx Tuberculosis, Hx Known/Suspected VRE, Hx Known/Suspected VRSA, Traveled Outside the in Last 30 Days - Family History Known Family History: Positive: Cardiac Disease, Hypertension, Other - CVA Family History: R & N/C - Social History Alcohol Use: None Alcohol Amount: former EtOH abuse Hx Substance Use: Yes Substance Use Type: Reports: Marijuana Substance Use Comment - Amount & Last Used: for pain Hx Tobacco Use: Yes Smoking Status (MU): Former Smoker Type: Cigarettes Amount Used/How Often: 1/2 ppd Length of Time of Smoking/Using Tobacco: 10 years Have You Smoked in the Last Year: No Review of Systems Positive: Chest Pain - mid-sternal Positive: Shortness Of Breath Positive: Abdominal Pain - diffuse, Vomiting, Diarrhea All Other Systems Reviewed And Are Negative: Yes Physical Exam - Summary Physical Exam Summary: VITAL SIGNS: Reviewed. GENERAL: Patient is a well-developed and nourished male who is lying comfortable in the stretcher. Patient is not in any acute respiratory distress. HEAD AND FACE: No signs of trauma. No ecchymosis, hematomas or skull depressions. No sinus tenderness. EYES: PERRLA, EOMI x 2, No injected conjunctiva, no nystagmus. EARS: Hearing grossly intact. Ear canals and tympanic membranes are within normal limits. MOUTH: Oropharynx within normal limits. NECK: JVD bilaterally CHEST: Dialysis catheter in his left upper chest LUNGS: Decreased breath sounds bilaterally. Mild rales in bases. CVS: Regular rate and rhythm, S1 and S2 present, no murmurs or gallops appreciated. ABDOMEN: Diffuse abdominal tenderness EXTREMITIES: Bilateral trace edema of legs NEURO: Alert and oriented x 3. No acute neurological deficits. Speech is normal and follows commands. SKIN: Dry and warm Triage Information Reviewed: Yes Vital Signs On Initial Exam: Initial Vitals Temp Pulse Resp BP Pulse Ox 98.3 F 83 20 216/151 95 04/20/18 19:39 04/20/18 19:39 04/20/18 19:39 04/20/18 19:39 04/20/18 19:39 Vital Signs Reviewed: Yes Diagnostics - Vital Signs Vital Signs Temp Pulse Resp BP Pulse Ox 04/20/18 19:39 98.3 F 83 20 216/151 95 - Laboratory Result Diagrams: 04/20/18 20:27 04/20/18 20:28 Lab Statement: Any lab studies that have been ordered have been reviewed, and results considered in the medical decision making process. - Radiology CXR Radiology Interpretation Completed By: Radiologist - CARDIOMEGALY WITH CHRONIC INTERSTITIAL DISEASE AND CHRONIC LEFT BASILAR ATELECTASIS AND SCARRING WITH LEFT PLEURAL EFFUSION. OVERALL NO SIGNIFICANT CHANGE IS NOTED SINCE APRIL 06, 2018. ED physician has reviewed this report. - CT Abd/Pel CT Interpretation Completed By: Radiologist - Mild diffuse edema in the subcutaneous tissue in the mesentery. No abnormal masses or fluid collections are identified. End-stage renal disease. Enlarged liver. The study is limited due to lack of oral and IV contrast. Overall no significant change is noted since January 13, 2018. There appears to be chronic airspace disease in the lung bases with pleural thickening and/or scarring findings are similar to that identified on previous exam. ED physician has reviewed this report. - EKG 1940 Cardiac Rate: NL - 98 bpm EKG Rhythm: Sinus Rhythm EKG Interpretation: LVH. Non-specific T wave changes. Chest Pain Course/Dx - Course Course Of Treatment: 67 year old M presenting to [facility] complains of mid-sternal chest pain since 12:00 yesterday. Bloodwork/UA obatined. EKG, CXR, CT Abd/Pel obtained. In ED course, patient given Lomotil, Reglan, and Morphine. Received Duoneb treatment. Patient will be admitted to [facility], for further evaluation. - Diagnoses Provider Diagnoses: Hypertension, Volume overload - Provider Notifications Discussed Care Of Patient With: Erwin Alejandra Time Discussed With Above Provider: 00:10 Instructed by Provider To: Other - [facility], agrees to admit patient. Discharge - Sign-Out/Discharge Documenting (check all that apply): Discharge/Admit/Transfer - Admit to [facility] - Discharge Plan Condition: Stable Disposition: ADMITTED TO [facility] Referrals: Marielena Vargas MD [Primary Care Provider] - The documentation as recorded by the Wilmer casey Tiffany accurately reflects the service I personally performed and the decisions made by , Yuly Ponce MD.
[2018-04-21 06:54] LABS: INR 1.96 (0.77-1.02)
[2018-04-21] MEDS ORDERED: Labetalol IV* 5 MG/ML 20 ML VIAL IV PUSH ONE (08:32)
[2018-04-21] MEDS: DULoxetine DR CAP* 30 MG CAP.DR PO SCH ×2 (08:42→15:37)
[2018-04-21] MEDS: Omeprazole CAP* 20 MG PO SCH ×2 (08:42→15:40)
[2018-04-21] MEDS: Folic Acid TAB* 1 MG PO SCH ×2 (08:42→15:38)
[2018-04-21] MEDS: Famotidine TAB* 20 MG PO SCH ×2 (08:42→15:36)
[2018-04-21] MEDS: Citalopram TAB* 20 MG PO SCH ×2 (08:42→15:37)
[2018-04-21] MEDS: SUCROFERRIC OXYHYDROXIDE 1000 MG PO SCH ×3 (08:42→16:05)
[2018-04-21] MEDS: Calcium Acetate CAP* 667 MG PO SCH ×4 (08:42→16:05)
[2018-04-21] MEDS: Pancrelipase CAP* 5,000 UNITS CAP PO SCH ×2 (08:43→15:43)
[2018-04-21] MEDS: Gabapentin CAP(*) 300 MG PO SCH ×2 (08:43→15:37)
[2018-04-21] MEDS ORDERED: Lisinopril TAB* 10 MG PO SCH (09:00)
[2018-04-21] MEDS ORDERED: Furosemide TAB* 20 MG PO SCH (09:00)
[2018-04-21] MEDS ORDERED: Nitroglycerin 0.2 MG/HR PATCH* (5 MG) TRANSDERM SCH (09:00)
[2018-04-21] MEDS ORDERED: amLODIPine TAB* 5 MG PO SCH (09:00)
[2018-04-21] MEDS ORDERED: Cinacalcet TAB* 30 MG PO SCH (09:00)
--- NOTE | 2018-04-21 11:48 | PN ---
Subjective Date of Service: 04/21/18 Interval History: Pt just returned from dialysis. He reports "I feel great, I want to eat a double meal and go home". He denies any CP, SOB. He reports he is compliant with his home medications. Denies abdominal pain or diarrhea Objective Active Medications: Al Hydrox/Mg Hydrox/Simethicone (Maalox Plus*) 30 ml PO Q6H PRN PRN Reason: INDIGESTION Albuterol (Ventolin Hfa Inhaler*) 2 puff INH Q4H PRN PRN Reason: WHEEZING Amlodipine Besylate (Norvasc Tab*) 10 mg PO DAILY [facility] Calcium Acetate (Phoslo Cap*) 667 mg PO TID WITH MEALS [facility] Last Admin: 04/21/18 08:42 Dose: Not Given Carvedilol (Coreg Tab*) 12.5 mg PO BID WITH MEALS [facility] Cinacalcet (Sensipar Tab*) 30 mg PO DAILY [facility] Last Admin: 04/21/18 08:42 Dose: Not Given Citalopram Hydrobromide (Celexa Tab*) 20 mg PO DAILY [facility] Last Admin: 04/21/18 08:42 Dose: Not Given Cyclobenzaprine HCl (Flexeril Tab*) 5 mg PO TID PRN PRN Reason: SPASMS Last Admin: 04/21/18 03:14 Dose: 5 mg Diclofenac Sodium (Voltaren 1% Gel (Nf)) 1 applic TOPICAL BID PRN; Protocol PRN Reason: PAIN Duloxetine HCl (Cymbalta Cap*) 30 mg PO QAM [facility] Last Admin: 04/21/18 08:42 Dose: Not Given Famotidine (Pepcid Tab*) 20 mg PO DAILY [facility]; Protocol Last Admin: 04/21/18 08:42 Dose: Not Given Folic Acid (Folvite Tab*) 0.5 mg PO DAILY [facility] Last Admin: 04/21/18 08:42 Dose: Not Given Furosemide (Lasix Tab*) 20 mg PO QAM [facility] Gabapentin (Neurontin Cap(*)) 300 mg PO TID [facility] Last Admin: 04/21/18 08:43 Dose: Not Given Hydralazine HCl (Apresoline Tab*) 25 mg PO TID [facility] Nicardipine/Sodium Chloride (Cardene 0.1mg/Ml Ivpremix*) 20 mg in 200 mls @ 50 mls/hr IV .(as Initial Rate) [facility] Ibuprofen (Motrin Tab*) 600 mg PO TID PRN PRN Reason: PAIN Last Admin: 04/21/18 03:14 Dose: 600 mg Lisinopril (Prinivil Tab*) 10 mg PO DAILY [facility] Lorazepam (Ativan Tab(*)) 0.5 mg PO BEDTIME PRN PRN Reason: ANXIETY Last Admin: 04/21/18 03:13 Dose: 0.5 mg Meclizine HCl (Antivert Tab*) 25 mg PO BEDTIME [facility] Nitroglycerin (Nitroglycerin 5 Mg Patch*) 1 patch TRANSDERM DAILY [facility] Nitroglycerin (Nitroglycerin Tab 0.4 Mg*) 0.4 mg SL Q5M PRN PRN Reason: PAIN - CHEST Non-Formulary Medication (Sucroferric Oxyhydroxide [Velphoro]) 1,000 mg PO TID WITH MEALS [facility] Last Admin: 04/21/18 08:42 Dose: Not Given Omeprazole (Prilosec Cap*) 40 mg PO BID AC [facility] Last Admin: 04/21/18 08:42 Dose: Not Given Ondansetron HCl (Zofran Tab*) 4 mg PO Q6HR PRN PRN Reason: NAUSEA Oxycodone HCl (Roxycodone Tab*) 15 mg PO Q4H PRN PRN Reason: PAIN Pancrelipase (Zenpep Delayed Cap*) 15,000 units PO TID [facility] Last Admin: 04/21/18 08:43 Dose: Not Given Pharmacy Profile Note (Nitro Patch/Oint Remove*) 1 note PATCH OFF DAILY@2100 [facility] Simethicone (Mylicon Tab*) 80 mg PO TID PRN PRN Reason: PAIN - ABDOMINAL Simvastatin (Zocor(Nf)) 5 mg PO BEDTIME [facility] Throat Lozenges (Chloraseptic Lobo*) 1 lobo PO Q6H PRN PRN Reason: SORE THROAT Trazodone HCl (Desyrel Tab*) 100 mg PO BEDTIME [facility] Warfarin Sodium (Coumadin Tab(*)) 5 mg PO 1700 [facility]; Protocol Zolpidem Tartrate (Ambien Tab*) 10 mg PO BEDTIME PRN PRN Reason: SLEEP Vital Signs - 8 hr 04/21/18 04/21/18 04/21/18 03:45 03:48 04:00 Temperature Pulse Rate 64 65 Respiratory 10 17 16 Rate Blood Pressure 170/113 171/114 (mmHg) O2 Sat by Pulse 97 95 Oximetry 04/21/18 04/21/18 04/21/18 04:15 04:19 04:30 Temperature Pulse Rate 65 66 66 Respiratory 18 17 20 Rate Blood Pressure 171/112 174/112 186/117 (mmHg) O2 Sat by Pulse 95 94 95 Oximetry 04/21/18 04/21/18 04/21/18 04:45 05:00 05:15 Temperature Pulse Rate 65 65 65 Respiratory 13 12 15 Rate Blood Pressure 167/106 157/102 166/105 (mmHg) O2 Sat by Pulse 95 95 96 Oximetry 04/21/18 04/21/18 04/21/18 05:30 05:45 06:00 Temperature Pulse Rate 65 66 66 Respiratory 14 23 19 Rate Blood Pressure 163/104 181/115 172/111 (mmHg) O2 Sat by Pulse 96 96 96 Oximetry 04/21/18 04/21/18 04/21/18 06:15 07:17 08:00 Temperature 98.4 F Pulse Rate 66 67 Respiratory 17 15 16 Rate Blood Pressure 158/109 203/92 (mmHg) O2 Sat by Pulse 97 97 Oximetry Oxygen Devices in Use Now: Nasal Cannula Appearance: 67 yo male sitting up in bed in NAD, A+Ox3 Eyes: No Scleral Icterus, PERRLA Ears/Nose/Mouth/Throat: NL Teeth, Lips, Gums, Mucous Membranes Moist Respiratory: Symmetrical Chest Expansion and Respiratory Effort, Clear to Auscultation Cardiovascular: RRR Abdominal: NL Sounds; No Tenderness; No Distention Neurological: Alert and Oriented x 3, NL Muscle Strength and Tone Lines/Tubes/Other Access: Clean, Dry and Intact Peripheral IV Nutrition: Taking PO's Result Diagrams: 04/20/18 20:27 04/20/18 20:28 Assess/Plan/Problems-Billing Assessment: 67 yo male with complicated PMH including CAD, cardiomyopathy, ESRD on HD, noncompliance, frequent hospitalizations who presented on 04/20 with C/O CP , abdominal pain and diarrhea found to have a systolic BP > 220 - Patient Problems (1) Hypertensive urgency Comment: Continue home medications, hydralazine 25 mg TID, coreg 25mg BID, amlodipine 10mg lasix 20mg, lisinopril 10 mg daily (2) Chest pain Comment: - resolved in ED after blood pressure was better controlled. Trops around baseline. No further symptoms. No EKG changes (3) Cardiomyopathy Comment: LVEF 40-45 % on TTE 11/13/16. Continue lisinopril, carvedilol, hydralazine, nitrate. (4) Coronary artery disease Comment: Continue simvastatin. (5) ESRD (end stage renal disease) on dialysis Comment: Pt to get Dialysis today Continue MWF dialysis. Pt refuses to take kayexalate at home or in the hospital. (6) DVT prophylaxis Comment: Warfarin, monitor INR (7) Full code status Status and Disposition: OBV. DC to home
[2018-04-21] MEDS ORDERED: Heparin DIALYSIS ONLY(*) 1,000 UNITS/ML VIAL DIALYSIS ONE (12:00)
[2018-04-21 15:04] VITALS: BP 188/94
[2018-04-21] MEDS: Carvedilol TAB* 6.25 MG PO SCH ×2 (15:32)
[2018-04-21] MEDS: hydrALAZINE TAB* 25 MG PO SCH ×2 (15:38→15:39)
[2018-04-21] MEDS ORDERED: Warfarin TAB(*) 5 MG PO SCH (17:00)
[2018-04-21] MEDS ORDERED: traZODone TAB* 100 MG PO SCH (21:00)
[2018-04-21] MEDS ORDERED: CMCS:Simvastatin TAB(NF) 10 MG TAB PO SCH (21:00)
[2018-04-21] MEDS ORDERED: Nitro Patch/OINT Remove PATCH OFF SCH (21:00)
[2018-04-21] MEDS ORDERED: Meclizine TAB* 12.5 MG PO SCH (21:00)
--- NOTE | 2018-04-21 23:23 | DS ---
CC: Dr. Marielena Vargas* DISCHARGE SUMMARY: DATE OF ADMISSION: 04/21/18 DATE OF DISCHARGE: 04/21/18 HOSPITAL STATUS: Observation. PROVIDER: Tamiko Ribeiro NP. ATTENDING PHYSICIAN: Dr. Marques* (report dictated by Tamiko Ribeiro NP). PRIMARY CARE PROVIDER: Dr. Marielena Vargas. DISCHARGE DIAGNOSES: 1. Hypertensive urgency. 2. Diarrhea and abdominal pain, unclear etiology. This resolved prior to hospitalization. 3. Chest pain. 4. Endstage renal disease, on hemodialysis Thursday, Thursday, Thursday. SECONDARY DIAGNOSES: 1. 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 2. Coronary artery disease, status post coronary artery bypass grafting. 3. Systolic cardiomyopathy, status post implantable cardioverter-defibrillator , last ejection fraction 40%. 4. Status post mitral and tricuspid valve repairs. 5. Atrial fibrillation, on Coumadin. 6. Peripheral vascular disease. 7. Hepatitis C. 8. Gastroesophageal reflux disease. 9. Chronic anemia. 10. Chronic pain. DISCHARGE MEDICATIONS: 1. Oxycodone 15 mg p.o. q. 4 hours. 2. Hydralazine 25 mg p.o. t.i.d. 3. Trazodone 100 mg p.o. at bedtime. 4. Zolpidem 10 mg p.o. at bedtime. 5. Coumadin 5 mg p.o. daily. 6. Parul-Dameon Rx 1 tab p.o. daily. 7. Triamcinolone cream topical b.i.d. p.r.n. 8. Velphoro 1000 mg t.i.d. with meals. 9. Kayexalate 15 g daily. 10. Simvastatin 5 mg p.o. at bedtime. 11. Simethicone 80 mg t.i.d. p.r.n. 12. Zantac 150 mg p.o. daily. 13. MiraLAX 17 g in the evening. 14. 10 mL daily p.r.n. 15. Zofran 4 mg p.o. q. 6 hours p.r.n. 16. Omeprazole 40 mg p.o. b.i.d. 17. Nitroglycerin patch 5 mg transdermal daily. 18. Nitroglycerin 0.4 mg sublingual q. 5 minutes p.r.n. 19. Bactroban 2% topically daily p.r.n. 20. Meclizine 25 mg p.o. daily p.r.n. 21. Lubiprostone 24 mcg p.o. daily. 22. Lisinopril 10 mg p.o. daily. 23. Lorazepam 0.5 mg p.o. bedtime p.r.n. 24. Venofer 100 mg IV? 25. Ibuprofen 600 mg p.o. t.i.d. p.r.n. 26. Hydrocortisone topical b.i.d. p.r.n. 27. Gabapentin 300 mg p.o. t.i.d. 28. Lasix 20 mg p.o. daily. 29. Nephro-Dameon tablet 25 mg p.o. daily. 30. Folic acid 0.5 mg p.o. daily. 31. Lexapro 10 mg p.o. daily. 32. Epogen as prescribed by Nephrology. 33. Econazole topical b.i.d. 34. Duloxetine 30 mg p.o. daily. 35. Docusate 100 mg p.o. b.i.d. p.r.n. 36. Diclofenac topical b.i.d. 37. Cyclobenzaprine 5 mg t.i.d. p.r.n. 38. Sensipar 30 mg p.o. daily. 39. Coreg 12.5 mg b.i.d. 40. Calcium acetate 667 mg t.i.d. with meals. 41. Amlodipine 10 mg p.o. daily. 42. Albuterol 180 mcg puff q. 4 hours p.r.n. HISTORY OF PRESENT ILLNESS AND HOSPITAL COURSE: Please see history and physical by Dr. Alejandra for full admission details but in summary, this is a 67- year-old male with multiple complex past medical history as stated above with frequent multiple admissions to the [facility], who presents to the emergency department on the evening of 04/20/18 with complaints of chest pain starting the day prior as well as abdominal pain and diarrhea, again starting the day prior. On admission, he was noted to have a blood pressure of 232/171 and was admitted for hypertensive urgency. Initially, he was going to be started on nicardipine but prior to the dripping started, his blood pressures did trend down. He was given IV labetalol as well as his oral home medications. In regards to his diarrhea and abdominal pain, they report on admission, he states that he had multiple loose stools for multiple days. Since his arrival to the emergency department, he has had no further loose stools and reports that his abdominal pain has resolved. In regards to his chest pain, this resolved after his blood pressure was controlled. Dr. Dalal was spoken to on admission and the patient underwent dialysis today, due to that he missed his last dialysis session, which would have been Thursday. He reports that he missed his last dialysis session due to that he had diarrhea. Currently, after dialysis, the patient's blood pressure is well controlled. He reports that he feels at his baseline and would like to be discharged home. He denies any further chest pain , abdominal pain, diarrhea. His troponins were trended, which all appeared to be around his baseline of 0.15 and 0.16. This is noted to be consistent with his prior elevated troponins. His EKG showed sinus tachycardia with left axis anterior fascicular block. No ST or T wave changes. CONDITION ON DISCHARGE: The patient is stable for discharge home. REVIEW OF SYSTEMS: A 14-point review of systems was performed. All the pertinent positives and negatives are mentioned in the history of present illness. Otherwise, were negative. PHYSICAL EXAMINATION: Vital Signs: Temperature 98.4, heart rate 67, respirations 16, O2 sats 97%, blood pressure 158/90. Appearance: Chronically ill appearing 67- year-old male, alert and oriented x3, sitting up in his bed, in no acute distress. HEENT: Head is normocephalic, atraumatic. Pupils are equal and reactive to light. Oropharynx is clear. Moist mucous membranes. Neck : Supple. Cardiac: S1, S2. 2/6 soft systolic murmur heard best at the left lower sternal border. No lower extremity edema. Lungs: Clear to auscultation bilaterally. Good aeration throughout. Abdomen: Soft, nontender, and nondistended. Normal bowel sounds throughout. Extremities: No clubbing, cyanosis, or edema. Neuro: Alert and oriented x3. No focal deficits. DISCHARGE PLAN: 1. The patient will be discharged to home. He was strongly encouraged to continue his oral medications as prescribed, especially important for his blood pressure. He states understanding. He is to follow up with Dialysis on Thursday. 2. Follow up with PCP within 3 to 5 days. 3. It was discussed with the patient if he had any worsening or concerning symptoms, to return to the emergency department. TIME SPENT: Approximately 60 minutes were spent on this discharge. TAMIKO RIBEIRO NP [id number]/[facility] #: [id number] STEPHANIE
== END 2018-04-21 17:05 | disposition home or self-care (01) | DRG 304 ==
LOC: ED 19:36 → ICU 04-21 00:47 → MEDTELE 04-21 07:15
PROVIDERS: ADMIT Internal Medicine; ATTEND Internal Medicine
PROC: 5A1D70Z Performance of Urinary Filtration, Intermittent, Less than 6 Hours Per Day (ICD-10-PCS; principal; 2018-04-21)
DX: I16.0 Hypertensive urgency (principal); N18.6 End stage renal disease; I42.8 Other cardiomyopathies; I13.2 Hypertensive heart and chronic kidney disease with heart failure and with stage 5 chronic kidney disease, or end stage renal disease; R07.9 Chest pain, unspecified; I50.9 Heart failure, unspecified; I25.10 Atherosclerotic heart disease of native coronary artery without angina pectoris; J44.9 Chronic obstructive pulmonary disease, unspecified; K21.9 Gastro-esophageal reflux disease without esophagitis; K74.60 Unspecified cirrhosis of liver; M19.90 Unspecified osteoarthritis, unspecified site; G89.29 Other chronic pain; H40.9 Unspecified glaucoma; G43.909 Migraine, unspecified, not intractable, without status migrainosus; F32.9 Major depressive disorder, single episode, unspecified; F41.9 Anxiety disorder, unspecified; I44.4 Left anterior fascicular block; I48.91 Unspecified atrial fibrillation; D63.1 Anemia in chronic kidney disease; I73.9 Peripheral vascular disease, unspecified; R10.9 Unspecified abdominal pain; Z79.1 Long term (current) use of non-steroidal anti-inflammatories (NSAID); Z88.6 Allergy status to analgesic agent; Z88.5 Allergy status to narcotic agent; Z95.810 Presence of automatic (implantable) cardiac defibrillator; Z87.01 Personal history of pneumonia (recurrent); Z87.11 Personal history of peptic ulcer disease; Z99.2 Dependence on renal dialysis; Z86.19 Personal history of other infectious and parasitic diseases; Z86.14 Personal history of Methicillin resistant Staphylococcus aureus infection; Z82.3 Family history of stroke; Z82.49 Family history of ischemic heart disease and other diseases of the circulatory system; Z91.15 Patient's noncompliance with renal dialysis; Z87.891 Personal history of nicotine dependence; Z86.718 Personal history of other venous thrombosis and embolism; Z95.1 Presence of aortocoronary bypass graft; Z79.82 Long term (current) use of aspirin; Z99.81 Dependence on supplemental oxygen
CPT/HCPCS: 36415; 71045; 74176; 80053; 82150; 83605; 83690; 83735; 83880; 84484; 85025; 85610; 85730; 86140; 93005; 99284; A9270-GY; J1644; J2270; J2765

== ENCOUNTER 2018-04-26 12:50 | Inpatient (IN) | payer MEDICARE, MEDICAID ==
[2018-04-26] MEDS ORDERED: Loperamide CAP* 2 MG PO ONE (13:26)
[2018-04-26 13:50] LABS: ABS Basophils 0 10^3/ul (0-0.2); ABS Eosinophils 0.1 10^3/ul (0-0.6); ABS Lymphocytes 0.7 10^3/ul (1.0-4.8); ABS Monocytes 0.6 10^3/ul (0-0.8); ABS Neutrophils 2.8 10^3/ul (1.5-7.7); ABS Nucleated RBC 0 10^3/ul; Eosinophil % 1.5 % (0-6); Hematocrit 36 % (42-52); Hemoglobin 11.7 g/dl (14.0-18.0); Lymphocyte % 16.2 % (25-47); Mean Corpuscular HGB Conc 33 g/dl (31-36); Mean Corpuscular Hemoglobin 30 pg (27-31); Mean Corpuscular Volume 92 fL (80-94); Nucleated Red Blood Cells % 0.1; Platelet Count 114 10^3/ul (150-450); Red Cell Distribution Width 17 % (10.5-15); White Blood Count 4.2 10^3/ul (3.5-10.8)
[2018-04-26 14:10] LABS: EGFR Non-African American 4.5 (>60)
[2018-04-26] MEDS ORDERED: Albuterol/Ipratropium NEB.SOL* Albuterol 2.5 MG/Ipratropium 0.5 MG 3 ML INH ONE (14:14)
--- NOTE | 2018-04-26 14:34 | RAD ---
INDICATION: Short of breath COMPARISON: April 20, 2018 TECHNIQUE: PA and lateral views were obtained. FINDINGS: Bones/Soft Tissues: There are no acute bony findings. There is double lumen subclavian catheter. There is a cardiac pacemaker/defibrillator. There are sternotomy Cardiomediastinal: The cardiac silhouette remains enlarged with interstitial and alveolar edema Lungs: There are no infiltrates. Pleura: Interstitial and alveolar infiltrates consistent with interstitial edema. Given these diffuse findings, a superimposed postinfectious pneumonitis is not excluded.. Other: None IMPRESSION: MODERATE VASCULAR CONGESTION WITH MILD WORSENING
[2018-04-26] MEDS ORDERED: Labetalol IV* 5 MG/ML 20 ML VIAL IV PUSH ONE (17:00)
--- NOTE | 2018-04-26 17:11 | ED ---
Siva Briones Angela, scribed for Zain Templeton MD on 04/26/18 at 1325 . Shortness of Breath - HPI Summary HPI Summary: This pt is a 67 y/o male presenting to [facility] after missing dialysis today. Pt reports he missed dialysis today because he was "sick." He states he had chest pain and diarrhea today. He called the dialysis office and was told to come to the ED for dialysis. Pt currently notes he feels "wheezy," dizzy, and SOB. He states "I really need to go to dialysis." PMHx includes ESRD on dialysis (Mon, Thu, Thu), COPD, HTN, CHF. - History of Current Complaint Chief Complaint: EDShortnessOfBreath Time Seen by Provider: 04/26/18 13:18 Hx Obtained From: Patient Onset/Duration: Lasting Hours, Still Present Timing: Constant Dyspnea At: Rest Associated Signs & Symptoms: Wheezing, Dizzy - Allergy/Home Medications Allergies/Adverse Reactions: Allergies Allergy/AdvReac Type Severity Reaction Status Date / Time aspirin Allergy "Ever Verified 04/26/18 13:09 since i was a boy i was told not to take aspirin" hydromorphone AdvReac Pt states Verified 04/26/18 13:09 "he feels like a junky" PMH/Surg Hx/FS Hx/Imm Hx Endocrine/Hematology History: Reports: Hx Blood Transfusions, Hx Sickle Cell Disease - Was told had sickle cell at one point but denies, Hx Anemia Denies: Hx Anticoagulant Therapy, Hx Bone Marrow Disease, Hx Diabetes, Hx Thyroid Disease Cardiovascular History: Reports: Hx Angina, Hx Auto Implanted Cardiovert Defib, Hx Congestive Heart Failure, Hx Coronary Artery Disease, Hx Deep Vein Thrombosis , Hx Hypertension, Hx Pacemaker/ICD, Hx Peripheral Vascular Disease, Hx Syncope , Other Cardiovascular Problems/Disorders - cardiomegaly, mitral valve and tricuspid valve repair Denies: Hx Cardiomegaly, Hx Hypercholesterolemia, Hx Myocardial Infarction, Hx Rheumatic Fever, Hx Valvular Heart Disease Respiratory History: Reports: Hx Asthma, Hx Chronic Obstructive Pulmonary Disease (COPD), Hx Pleural Effusion, Hx Pneumonia, Other Respiratory Problems/ Disorders Denies: Hx Pulmonary Edema, Hx Pulmonary Embolism, Hx Sleep Apnea GI History: Reports: Hx Cirrhosis, Hx Gastroesophageal Reflux Disease, Hx Ulcer - peptic ulcer, Other GI Disorders - hep C Denies: Hx Crohn's Disease, Hx Hiatal Hernia, Hx Irritable Bowel, Hx Jaundice History: Reports: Hx Acute Renal Failure, Hx Chronic Renal Failure, Hx Dialysis, Hx Renal Disease, Other Problems/Disorders - end stage renal disease, on dialysis Denies: Hx Kidney Infection, Hx Kidney Stones Musculoskeletal History: Reports: Hx Arthritis, Hx Back Problems - chronic pain , Hx Orthopedic Injury Denies: Hx Rheumatoid Arthritis, Hx Bursitis, Hx Tendonitis, Other Musculoskeletal History Sensory History: Reports: Hx Contacts or Glasses, Hx Glaucoma, Hx Vision Problem Denies: Hx Cataracts, Hx Hearing Aid Opthamlomology History: Reports: Hx Contacts or Glasses, Hx Glaucoma, Hx Vision Problem Denies: Hx Cataracts Neurological History: Reports: Hx Headaches, Hx Migraine, Other Neuro Impairments/Disorders - depression Denies: Hx Dementia, Hx Seizures Psychiatric History: Reports: Hx Anxiety, Hx Depression, Hx Substance Abuse - ETOH Denies: Hx Eating Disorder, Hx Panic Disorder, Hx Suicide Attempt, Hx of Violent Episodes Against Others - Cancer History Hx Chemotherapy: No Hx Radiation Therapy: No Hx Palliative Cancer Treatment: No - Surgical History Surgery Procedure, Year, and Place: HERNIA REPAIR 2012. APPENDECTOMY 2000. LEFT ARM AV FISTULA/CAD - REMOVED. CABG 1 vessel, mitral & tricuspid valve repair March 02, 2014 AT [facility] CONDITIONAL 5 UPTO 3T. POWER PORT. Mitral and tricuspid valve repair Hx Anesthesia Reactions: No - Immunization History Date of Tetanus Vaccine: 2014 Date of Influenza Vaccine: Fall 2015 Infectious Disease History: No Infectious Disease History: Reports: Hx Hepatitis - Hep C, Hx of Known/ Suspected MRSA, History Other Infectious Disease - Hepatitis C Denies: Hx Clostridium Difficile, Hx Human Immunodeficiency Virus (HIV), Hx Shingles, Hx Tuberculosis, Hx Known/Suspected VRE, Hx Known/Suspected VRSA, Traveled Outside the [place] in Last 30 Days - Family History Known Family History: Positive: Cardiac Disease, Hypertension, Other - CVA - Social History Alcohol Use: None Alcohol Amount: former EtOH abuse Hx Substance Use: Yes Substance Use Type: Reports: Marijuana Substance Use Comment - Amount & Last Used: for pain Hx Tobacco Use: Yes Smoking Status (MU): Former Smoker Type: Cigarettes Amount Used/How Often: 1/2 ppd Length of Time of Smoking/Using Tobacco: 10 years Have You Smoked in the Last Year: No Review of Systems Negative: Fever, Chills Positive: Chest Pain Respiratory: Other - "wheezy" Positive: Shortness Of Breath Positive: Diarrhea Neurological: Other - POS: dizziness All Other Systems Reviewed And Are Negative: Yes Physical Exam - Summary Physical Exam Summary: Appearance: The patient is well-nourished in no acute distress and in no acute pain. Skin: The skin is warm and dry and skin color reflects adequate perfusion. HEENT: The head is normocephalic and atraumatic. The pupils are equal and reactive. The conjunctivae are clear and without drainage. Nares are patent and without drainage. Mouth reveals moist mucous membranes and the throat is without erythema and exudate. The external ears are intact. The ear canals are patent and without drainage. The tympanic membranes are intact. Neck: the neck is supple with full range of motion and non-tender. There are no carotid bruits. There is no neck vein distension. Respiratory: Chest is non-tender. Lungs are clear to auscultation and breath sounds are symmetrical and equal. Cardiovascular: Heart is regular rate and rhythm. There is no murmur or rub auscultated. There is no peripheral edema and pulses are symmetrical and equal. Abdomen: The abdomen is soft and non-tender. There are normal bowel sounds heard in all four quadrants and there is no organomegaly palpated. Musculoskeletal: There is no back tenderness noted. Extremities are non-tender with full range of motion. There is good capillary refill. There is no peripheral edema or calf tenderness elicited. Neurological: Patient is alert and oriented to person, place and time. Psychiatric: The patient has an appropriate affect and does not exhibit any anxiety or depression. Triage Information Reviewed: Yes Vital Signs On Initial Exam: Initial Vitals Temp Pulse Resp BP Pulse Ox 97.9 F 84 22 214/137 99 04/26/18 13:07 04/26/18 13:07 04/26/18 13:07 04/26/18 13:07 04/26/18 13:07 Vital Signs Reviewed: Yes Diagnostics - Vital Signs Vital Signs Temp Pulse Resp BP Pulse Ox 04/26/18 13:07 97.9 F 84 22 214/137 99 - Laboratory Lab Results: Lab Results 04/26/18 04/26/18 04/26/18 Range/Units 13:40 13:40 16:32 WBC 4.2 (3.5-10.8) 10^3/ul RBC 3.90 L (4.00-5.40) 10^6/ul Hgb 11.7 L (14.0-18.0) g/dl Hct 36 L (42-52) % MCV 92 (80-94) fL MCH 30 (27-31) pg MCHC 33 (31-36) g/dl RDW 17 H (10.5-15) % Plt Count 114 L (150-450) 10^3/ul MPV 9.0 (7.4-10.4) um3 Neut % (Auto) 66.5 (38-83) % Lymph % (Auto) 16.2 L (25-47) % [place] % (Auto) 14.9 H (0-7) % Eos % (Auto) 1.5 (0-6) % Baso % (Auto) 0.9 (0-2) % Absolute Neuts (auto) 2.8 (1.5-7.7) 10^3/ul Absolute Lymphs (auto) 0.7 L (1.0-4.8) 10^3/ul Absolute Monos (auto) 0.6 (0-0.8) 10^3/ul Absolute Eos (auto) 0.1 (0-0.6) 10^3/ul Absolute Basos (auto) 0 (0-0.2) 10^3/ul Absolute Nucleated RBC 0 10^3/ul Nucleated RBC % 0.1 Sodium 138 (135-145) mmol/L Potassium 5.7 H (3.5-5.0) mmol/L Chloride 97 L (101-111) mmol/L Carbon Dioxide 27 (22-32) mmol/L Anion Gap 14 H (2-11) mmol/L BUN 57 H (6-24) mg/dL Creatinine 11.40 H (0.67-1.17) mg/dL Est GFR ( Amer) 5.5 (>60) Est GFR (Non-Af Amer) 4.5 (>60) BUN/Creatinine Ratio 5.0 L (8-20) Glucose 80 (70-100) mg/dL Calcium 10.0 (8.6-10.3) mg/dL Total Bilirubin 0.60 (0.2-1.0) mg/dL AST 35 (13-39) U/L ALT 18 (7-52) U/L Alkaline Phosphatase 65 (34-104) U/L Troponin I 0.05 H* 0.05 H* (<0.04) ng/mL C-Reactive Protein < 1.00 (<8.01) mg/L Total Protein 8.1 (6.4-8.9) g/dL Albumin 4.2 (3.2-5.2) g/dL Globulin 3.9 (2-4) g/dL Albumin/Globulin Ratio 1.1 (1-3) Result Diagrams: 04/26/18 13:40 04/26/18 13:40 Lab Statement: Any lab studies that have been ordered have been reviewed, and results considered in the medical decision making process. - Radiology Chest XR Xray Interpretation: Positive (See Comments) - IMPRESSION: Moderate vascular congestion with mild worsening. Dr. Templeton has reviewed this radiology report. Radiology Interpretation Completed By: Radiologist Course/Dx - Course Course Of Treatment: Mr. Templeton presented to the emergency department stating that he had missed his dialysis this morning because of diarrhea. He is requesting medication for his diarrhea. He wishes to be admitted for dialysis. His laboratory workup was reasonable for having been over the weekend without dialysis and his exam was unremarkable aside from a dramatic increased blood pressure. Dr. Miguel felt that his blood pressure was consistent with his past results and recommended that Mr. Templeton be compliant with his outpatient medications. He did agreed to dialyze the patient and the patient is being admitted to the hospitalist service. - Diagnoses Provider Diagnoses: Dialysis patient, noncompliant - Physician Notifications Discussed Care of Patient With: Jose Eduardo Dalal Time Discussed With Above Provider: 13:54 Instructed by Provider To: Other - Discussed pt care with Dr. Dalal, continuous dryout operator. [16:58] I discussed with Dr. Brothers, hospitalist, who accepted the pt for admission. Discharge - Sign-Out/Discharge Documenting (check all that apply): Discharge/Admit/Transfer - Admit - Discharge Plan Condition: Stable Disposition: ADMITTED TO [facility] Referrals: Marielena Vargas MD [Primary Care Provider] - - Billing Disposition and Condition Condition: STABLE Disposition: Admitted to [facility] The documentation as recorded by the Siva casey Angela accurately reflects the service I personally performed and the decisions made by , Zain Templeton MD.
[2018-04-26] MEDS ORDERED: Albuterol/Ipratropium NEB.SOL* Albuterol 2.5 MG/Ipratropium 0.5 MG 3 ML INH PRN (18:06)
[2018-04-26] MEDS ORDERED: Morphine INJ* 2 MG/ML 1 ML CARPUJECT IV PRN (18:06)
[2018-04-26] MEDS ORDERED: Al Hydrox/Mg Hydrox/Simet LIQ* 30 ML UDC PO PRN (18:06)
[2018-04-26] MEDS ORDERED: Albuterol HFA INHALER* 8 gm MDI INH PRN (18:12)
[2018-04-26] MEDS ORDERED: Nitroglycerin TAB 0.4 MG* 0.4 MG TAB SL PRN (18:12)
[2018-04-26] MEDS ORDERED: LORazepam TAB(*) 0.5 MG PO PRN (18:12)
[2018-04-26] MEDS ORDERED: Zolpidem TAB* 10 MG PO PRN (18:18)
[2018-04-26] MEDS ORDERED: NS 0.9% 100 ML* 100 ML IV PRN (18:30)
[2018-04-26] MEDS ORDERED: Heparin DIALYSIS ONLY(*) 1,000 UNITS/ML VIAL DIALYSIS ONE (18:30)
[2018-04-26] MEDS ORDERED: Epoetin Alfa* 10,000 UNITS/ML VIAL IV ONE (18:30)
[2018-04-26] MEDS: Gabapentin CAP(*) 300 MG PO SCH (22:19)
[2018-04-26] MEDS: Omeprazole CAP* 20 MG PO SCH (22:20)
[2018-04-26] MEDS: Meclizine TAB* 12.5 MG PO SCH (22:20)
[2018-04-26] MEDS: traZODone TAB* 100 MG PO SCH (22:20)
[2018-04-26] MEDS: hydrALAZINE TAB* 25 MG PO SCH (22:20)
[2018-04-26] MEDS: CMCS Simvastatin TAB(NF) 10 MG TAB PO SCH (22:24)
[2018-04-26] MEDS: oxyCODONE TAB* 5 MG TAB PO PRN (22:32)
--- NOTE | 2018-04-26 22:48 | HP ---
HISTORY AND PHYSICAL: DATE OF ADMISSION: 04/26/18 PATIENT OF: Attending hospitalist, Dr. Natalia Martin * (DICTATED BY ELEAZAR FONTAINE) PRIMARY CARE PROVIDER: Marielena Vargas MD PRIMARY TUCKPOINTER: Jose Eduardo Dalal MD CHIEF COMPLAINT: Diarrhea, abdominal pain, and intermittent chest pain. HISTORY OF PRESENT ILLNESS: Mr. Templeton is a 67-year-old gentleman who is well known to us from many multiple admissions in the past, who presented to the emergency room at [facility] with complaints similar to his prior admission back on April 21. The patient noted that he had some abdominal pain as well as diarrhea given a vague history of each of this 3 other complaints. Upon questioning more about his chest pain, he describes as aching, substernal, nonradiating, as well as generalized abdominal pain with associated diarrhea since last week. He noted that because of his diarrhea, he had missed out on his dialysis session earlier this morning and presented to the emergency room with these complaints in addition to his desire to undergo his next dialysis session earlier today. During his ED visit, he was noted to have a significantly elevated systolic blood pressure of 220, 230. He received multiple doses of 10 mg of IV labetalol with no improvement. The patient reports similar presentation that usually resolved after dialysis session. Given his presentation and ongoing symptoms, we were asked to see the patient to consider admission for observation to undergo a dialysis session this evening. The patient denies eating any high source of potassium or drinking alcohol. He denies any persistent substernal chest pain, headache, dizziness, blurred vision, weakness, or syncope. PAST MEDICAL HISTORY: Includes: 1. End-stage renal dialysis, on hemodialysis, which was due earlier today. 2. 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 3. Coronary artery disease, status post CABG. 4. Systolic cardiomyopathy, status post ICD with last EF of 40%. 5. Mitral and tricuspid valve repairs. 6. History of atrial fibrillation for which he has been on Coumadin. 7. Peripheral vascular disease. 8. Hepatitis C. 9. GERD. 10. Chronic anemia. 11. Chronic pain. CURRENT MEDICATIONS: His medication list, unchanged from prior admission includin. Albuterol MDI 108 mcg 1 puff inhaled q.4 hours as needed for shortness of breath. 2. Albuterol nebulizer 1.25 mg per 3 mL inhaled q.i.d. 3. Norvasc 10 mg p.o. daily. 4. PhosLo 667 mg p.o. t.i.d. 5. Coreg 12.5 mg p.o. b.i.d. 6. Cyclobenzaprine 5 mg p.o. t.i.d. 7. Colace 100 mg p.o. b.i.d. 8. Econazole cream topical application as prescribed. 9. Epogen 11,000 units subcu every dialysis session. 10. Lexapro 10 mg p.o. daily. 11. Folic acid 0.5 mg p.o. daily. 12. Vitamin B complex 25 mg p.o. daily. 13. Lasix 20 mg p.o. daily. 14. Neurontin 300 mg p.o. t.i.d. 15. Hydrocortisone cream topical application as prescribed. 16. Ibuprofen 600 mg p.o. t.i.d. as needed for pain. 17. Iron complex 100 mg IV as prescribed. 18. Lorazepam 0.5 mg p.o. q.h.s. as needed for anxiety. 19. Antivert 25 mg p.o. q.h.s. as needed for dizziness. 20. Nitroglycerin patch 0.2 mg per hour transdermal every day. 21. Nitroglycerin tablets 0.4 mg sublingual q.5 minutes as needed for chest pain. 22. Prilosec 40 mg p.o. b.i.d. 23. Zofran 4 mg p.o. q.6 hours as needed for nausea. 24. Oxycodone 15 mg p.o. q.4 hours as needed for pain. 25. MiraLax 17 g p.o. daily. 26. Zocor 5 mg p.o. q.h.s. 27. Desyrel 100 mg p.o. q.h.s. 28. Ambien 10 mg p.o. q.h.s. as needed for insomnia. 29. Lisinopril 10 mg p.o. daily. 30. Zantac 150 mg p.o. daily. 31. Coumadin 5 mg p.o. q.h.s. 32. Hydralazine 25 mg p.o. t.i.d. ALLERGIES: Include ASPIRIN and HYDROMORPHONE. FAMILY HISTORY: Noncontributory. SOCIAL HISTORY: He smokes marijuana daily. No alcohol or illicit drug use. His girlfriend, Seble, he identified as the healthcare proxy carrier. REVIEW OF SYSTEMS: A 14-point review of systems was evaluated and was essentially negative except whatever mentioned in the HPI. PHYSICAL EXAMINATION GENERAL: He is a healthy-appearing upper middle-aged gentleman in no acute distress or discomfort at the time of admission. VITAL SIGNS: Revealed a blood pressure of 219/155, pulse of 78, temperature of 97.9, respirations of 20, with O2 sats of 99% on room air. HEENT: Head is normocephalic, atraumatic. Sclerae anicteric. PERRLA. EOMs intact. Oropharynx is pink and moist. NECK: Supple. Trachea midline. No cervical adenopathy, thyromegaly, or JVD. LUNGS: Clear to auscultation bilaterally. HEART: Regular rate and rhythm. Normal S1 and S2 without rubs, murmurs, or gallops. There is a left subclavian central catheter secured in place. No evidence of any discharge or bleeding. BACK: With normal curvature. No CVA tenderness. ABDOMEN: Soft, nontender, and nondistended. No hernias, masses, or hepatosplenomegaly. There is an old scar, upper epigastric area, appears to be well healed. EXTREMITIES: Without cyanosis, clubbing, or edema. There is AV fistula on both sides of the forearm, both appear to be intact. No evidence of skin ulceration or bleeding. RECTAL: Exam deferred at this time. NEUROLOGIC: He is awake, alert, and oriented. Neuro exam was grossly normal. LABORATORY DATA: CBC with a white count of 4000, hemoglobin of 11.7, hematocrit of 36, and platelets of 114. Chemistry with sodium of 138, potassium 5.7, chloride of 97, CO2 of 27, BUN 57, creatinine of 11.4. His LFTs essentially within normal limits. Glucose of 80. Troponin of 0.05, which was repeated again and was the same value and it appears to be less than his baseline from prior visit at 0.16. IMPRESSION: A 67-year-old gentleman with a history of end-stage renal disease, who presented to the emergency room today after he missed his hemodialysis session earlier this morning due to complaints of abdominal pain and frequent diarrhea, for which he preferred to stay home. He was found on evaluation to have an elevated systolic blood pressure that was resistant to medical management and will be admitted for observation and to undergo a hemodialysis session this evening. ASSESSMENT AND PLAN: 1. End-stage renal disease. The patient will be admitted to telemetry unit for observation overnight. I have contacted the dialysis clinic staff and he will undergo a session this evening at room 409 and then to be moved to telemetry unit for overnight. We will continue his dialysis-related medication , include Epogen and Kayexalate to be taken orally to maintain his potassium level low. 2. Hypertension. We will continue all his medication as taken at home. I anticipate after his dialysis that we will somehow normalize his blood pressure. Also, his normal baseline blood pressure has been running high in the past couple of visits to the hospital. 3. Hypertensive emergency. Again, the patient will be dialyzed this evening and we will restart him on all his home oral medication and we will review in the morning if he needs any further adjustment of his blood pressure medication before discharge to home. 4. Chest pain, has been resolved with medical management and his troponin actually is less than his baseline from last visit. 5. Diarrhea. It is unclear etiology; however, I expect it is probably functional and should resolve with his hemodialysis. 6. History of deep vein thrombosis. We will continue his Coumadin and repeat INR in the morning. 7. DVT prophylaxis: He is on oral Coumadin. We will check INR. 8. Code status: He is a full code. TIME SPENT: Approximately 55 minutes was spent admitting this patient with greater than 50% spent taking history and performing physical exam. I discussed the case with my attending, who was agreeable to plan of care. ELEAZAR FONTAINE [id number]/[facility] #: [id number] STEPHANIE
[2018-04-27] MEDS ORDERED: Metoprolol Tartrate IV* 1 MG/ML 5 ML VIAL IV ONE (04:00)
[2018-04-27 06:18] LABS: ABS Basophils 0 10^3/ul (0-0.2); ABS Eosinophils 0.1 10^3/ul (0-0.6); ABS Lymphocytes 0.8 10^3/ul (1.0-4.8); ABS Monocytes 0.7 10^3/ul (0-0.8); ABS Neutrophils 2.3 10^3/ul (1.5-7.7); ABS Nucleated RBC 0 10^3/ul; Eosinophil % 1.4 % (0-6); Hematocrit 32 % (42-52); Hemoglobin 10.6 g/dl (14.0-18.0); Lymphocyte % 19.5 % (25-47); Mean Corpuscular HGB Conc 33 g/dl (31-36); Mean Corpuscular Hemoglobin 30 pg (27-31); Mean Corpuscular Volume 91 fL (80-94); Mean Platelet Volume 8.4 um3 (7.4-10.4); Nucleated Red Blood Cells % 0.1; Platelet Count 109 10^3/ul (150-450); Red Blood Count 3.54 10^6/ul (4.00-5.40); Red Cell Distribution Width 17 % (10.5-15); White Blood Count 3.9 10^3/ul (3.5-10.8)
[2018-04-27 06:37] LABS: EGFR Non-African American 6.1 (>60)
--- NOTE | 2018-04-27 07:40 | PN ---
Subjective Date of Service: 04/27/18 Interval History: Patine c/o SOB, abd pain. He is concerned about his rectal bleeding and hemorrhoids, but has had no BM since admission. He states he took all his meds at home as prescribed. Objective Active Medications: Al Hydrox/Mg Hydrox/Simethicone (Maalox Plus*) 30 ml PO Q6H PRN PRN Reason: INDIGESTION Albuterol (Ventolin Hfa Inhaler*) 1 puff INH Q4H PRN PRN Reason: WHEEZING Albuterol/Ipratropium (Duoneb (Albuterol 2.5 Mg/Ipratropium 0.5 Mg)) 1 neb INH [id number] AWAKE PRN PRN Reason: sob/wheexing Amlodipine Besylate (Norvasc Tab*) 10 mg PO DAILY [facility] Calcium Acetate (Phoslo Cap*) 667 mg PO TID WITH MEALS SO Carvedilol (Coreg Tab*) 25 mg PO BID WITH MEALS SO Cinacalcet (Sensipar Tab*) 30 mg PO DAILY SO Citalopram Hydrobromide (Celexa Tab*) 20 mg PO DAILY SO Duloxetine HCl (Cymbalta Cap*) 30 mg PO QAM SO Famotidine (Pepcid Tab*) 20 mg PO DAILY SO; Protocol Folic Acid (Folvite Tab*) 0.5 mg PO DAILY SO Furosemide (Lasix Tab*) 20 mg PO QAM SO Gabapentin (Neurontin Cap(*)) 300 mg PO TID [facility] Last Admin: 04/26/18 22:19 Dose: 300 mg Hydralazine HCl (Apresoline Tab*) 25 mg PO TID [facility] Last Admin: 04/26/18 22:20 Dose: 25 mg Sodium Chloride (Ns 0.9% 100 Ml*) 100 mls @ 0 mls/hr IV ONCE PRN PRN Reason: CRAMPS OR SBP <90 Lisinopril (Prinivil Tab*) 20 mg PO DAILY SO Lorazepam (Ativan Tab(*)) 0.5 mg PO BEDTIME PRN PRN Reason: ANXIETY Meclizine HCl (Antivert Tab*) 25 mg PO BEDTIME [facility] Last Admin: 04/26/18 22:20 Dose: 25 mg Nitroglycerin (Nitroglycerin 5 Mg Patch*) 1 patch TRANSDERM DAILY [facility] Nitroglycerin (Nitroglycerin Tab 0.4 Mg*) 0.4 mg SL Q5M PRN PRN Reason: PAIN - CHEST Omeprazole (Prilosec Cap*) 40 mg PO BID [facility] Last Admin: 04/26/18 22:20 Dose: 40 mg Ondansetron HCl (Zofran Inj*) 4 mg IV Q4H PRN PRN Reason: NAUSEA/VOMITING Oxycodone HCl (Roxycodone Tab*) 15 mg PO Q4HR PRN PRN Reason: PAIN Last Admin: 04/26/18 22:32 Dose: 15 mg Pharmacy Profile Note (Nitro Patch/Oint Remove*) 1 note PATCH OFF 2100 [facility] Simvastatin (Zocor(Nf)) 5 mg PO BEDTIME [facility] Last Admin: 04/26/18 22:24 Dose: 5 mg Sodium Polystyrene Sulfonate (Kayexalate Oral.Joanna*) 15 gm PO DAILY [facility] Trazodone HCl (Desyrel Tab*) 100 mg PO BEDTIME [facility] Last Admin: 04/26/18 22:20 Dose: 100 mg Warfarin Sodium (Coumadin Tab(*)) 5 mg PO 1700 SO; Protocol Zolpidem Tartrate (Ambien Tab*) 10 mg PO BEDTIME PRN PRN Reason: SLEEP Last Admin: 04/26/18 22:33 Dose: 10 mg Vital Signs - 8 hr 04/27/18 04/27/18 04/27/18 00:30 00:38 03:22 Temperature 100.8 F Pulse Rate 90 Respiratory 16 16 20 Rate Blood Pressure 190/111 (mmHg) O2 Sat by Pulse 97 Oximetry Oxygen Devices in Use Now: Nasal Cannula Appearance: Alert, supine in bed. In fair spirits. Pt c/o abd pain. Eyes: No Scleral Icterus Neck: NL Appearance and Movements; NL JVP, No Thyroid Enlargement, Masses Respiratory: Symmetrical Chest Expansion and Respiratory Effort, Clear to Auscultation, Clear to Percussion Cardiovascular: NL Sounds; No Murmurs; No JVD, RRR, No Edema, - Abdominal: No Hepatosplenomegaly, - - BS nl. Obese. Tender to minimal touch but soft. Extremities: No Edema, No Clubbing, Cyanosis, - Skin: No Rash or Ulcers, No Nodules or Sclerosis, - Neurological: Alert and Oriented x 3, NL Sensation Result Diagrams: 04/27/18 06:00 04/27/18 06:00 Additional Lab and Data: Lab Results 04/26/18 04/26/18 04/26/18 Range/Units 13:40 13:40 16:32 WBC 4.2 (3.5-10.8) 10^3/ul RBC 3.90 L (4.00-5.40) 10^6/ul Hgb 11.7 L (14.0-18.0) g/dl Hct 36 L (42-52) % MCV 92 (80-94) fL MCH 30 (27-31) pg MCHC 33 (31-36) g/dl RDW 17 H (10.5-15) % Plt Count 114 L (150-450) 10^3/ul MPV 9.0 (7.4-10.4) um3 Neut % (Auto) 66.5 (38-83) % Lymph % (Auto) 16.2 L (25-47) % [place] % (Auto) 14.9 H (0-7) % Eos % (Auto) 1.5 (0-6) % Baso % (Auto) 0.9 (0-2) % Absolute Neuts (auto) 2.8 (1.5-7.7) 10^3/ul Absolute Lymphs (auto) 0.7 L (1.0-4.8) 10^3/ul Absolute Monos (auto) 0.6 (0-0.8) 10^3/ul Absolute Eos (auto) 0.1 (0-0.6) 10^3/ul Absolute Basos (auto) 0 (0-0.2) 10^3/ul Absolute Nucleated RBC 0 10^3/ul Nucleated RBC % 0.1 Sodium 138 (135-145) mmol/L Potassium 5.7 H (3.5-5.0) mmol/L Chloride 97 L (101-111) mmol/L Carbon Dioxide 27 (22-32) mmol/L Anion Gap 14 H (2-11) mmol/L BUN 57 H (6-24) mg/dL Creatinine 11.40 H (0.67-1.17) mg/dL Est GFR ( Amer) 5.5 (>60) Est GFR (Non-Af Amer) 4.5 (>60) BUN/Creatinine Ratio 5.0 L (8-20) Glucose 80 (70-100) mg/dL Calcium 10.0 (8.6-10.3) mg/dL Total Bilirubin 0.60 (0.2-1.0) mg/dL AST 35 (13-39) U/L ALT 18 (7-52) U/L Alkaline Phosphatase 65 (34-104) U/L Troponin I 0.05 H* 0.05 H* (<0.04) ng/mL C-Reactive Protein < 1.00 (<8.01) mg/L Total Protein 8.1 (6.4-8.9) g/dL Albumin 4.2 (3.2-5.2) g/dL Globulin 3.9 (2-4) g/dL Albumin/Globulin Ratio 1.1 (1-3) Assess/Plan/Problems-Billing Assessment: - Patient Problems (1) Abdominal pain Current Visit: No Status: Acute Code(s): R10.9 - UNSPECIFIED ABDOMINAL PAIN SNOMED Code(s): 99008717 Comment: Chronic. Lipase, CBC, CMP stat 04/27, KUB also. (2) ESRF (end stage renal failure) Current Visit: No Status: Acute Code(s): N18.6 - END STAGE RENAL DISEASE SNOMED Code(s): 99546010 Comment: Continue HD MWF, cinacalcet. (3) Hypertension Current Visit: No Status: Chronic Priority: High Code(s): I10 - ESSENTIAL (PRIMARY) HYPERTENSION SNOMED Code(s): 16389441 Comment: Increase lisinopril and carvedilol 04/27, continue hydralazine, nitrate. Uncertain why he is no longer on minoxidil. (4) Acute thrombosis of deep vein of right upper extremity Current Visit: No Status: Acute Code(s): I82.621 - ACUTE EMBOLISM AND THROMBOSIS OF DEEP VEINS OF R UP EXTREM SNOMED Code(s): 941355468850845 Comment: Continue warfarin. INR stat 04/27.
[2018-04-27] MEDS ORDERED: Carvedilol TAB* 6.25 MG PO SCH (08:00)
[2018-04-27 08:06] LABS: INR 3.44 (0.77-1.02)
[2018-04-27] MEDS: Folic Acid TAB* 1 MG PO SCH (08:31)
[2018-04-27] MEDS: Sodium Polystyrene ORAL.SOL* 15 GM/60 ML BTL PO SCH (08:31)
[2018-04-27] MEDS: Nitroglycerin 0.2 MG/HR PATCH* (5 MG) TRANSDERM SCH (08:32)
[2018-04-27] MEDS: oxyCODONE TAB* 5 MG TAB PO PRN (08:32)
[2018-04-27] MEDS: Calcium Acetate CAP* 667 MG PO SCH ×4 (08:33→17:30)
[2018-04-27] MEDS: Gabapentin CAP(*) 300 MG PO SCH ×2 (08:34→13:19)
[2018-04-27] MEDS: hydrALAZINE TAB* 25 MG PO SCH ×3 (08:34→19:35)
[2018-04-27] MEDS: Famotidine TAB* 20 MG PO SCH (08:35)
[2018-04-27] MEDS: DULoxetine DR CAP* 30 MG CAP.DR PO SCH (08:35)
[2018-04-27] MEDS: Citalopram TAB* 20 MG PO SCH (08:36)
[2018-04-27] MEDS: Furosemide TAB* 20 MG PO SCH (08:37)
[2018-04-27] MEDS: Cinacalcet TAB* 30 MG PO SCH (08:37)
[2018-04-27] MEDS: Lisinopril TAB* 10 MG PO SCH (08:38)
[2018-04-27] MEDS: amLODIPine TAB* 5 MG PO SCH (08:39)
[2018-04-27] MEDS: Carvedilol TAB* 25 MG PO SCH ×2 (08:44→17:07)
[2018-04-27] MEDS: Omeprazole CAP* 20 MG PO SCH ×2 (08:50→19:35)
[2018-04-27] MEDS ORDERED: Lisinopril TAB* 10 MG PO SCH (09:00)
--- NOTE | 2018-04-27 10:57 | RAD ---
HISTORY: abdominal pain COMPARISONS: CT dated April 20, 2018 VIEWS: Frontal views of the abdomen. FINDINGS: BOWEL: There is a nonspecific bowel gas pattern, with nondilated small bowel gas noted. There is a large amount of stool within the colon. CALCULI: There are no abnormal calculi. BONES AND SOFT TISSUES: There is diffuse osteopenia. Degenerative changes are noted. OTHER FINDINGS: There is cardiomegaly. Prosthetic heart valves are noted. An AICD is noted. A central venous catheter is noted with the tip overlying the cavoatrial junction. There are bilateral pleural effusions. There is no subphrenic gas. IMPRESSION: 1. NONSPECIFIC BOWEL GAS PATTERN. LARGE AMOUNT OF STOOL THROUGHOUT THE COLON. 2. BILATERAL PLEURAL EFFUSIONS.
[2018-04-27] MEDS ORDERED: Magnesium CITRATE* 300 ML BTL PO ONE (11:30)
[2018-04-27] MEDS ORDERED: Zolpidem TAB* 5 MG PO PRN (16:17)
[2018-04-27] MEDS ORDERED: Warfarin TAB(*) 5 MG PO SCH (17:00)
[2018-04-27] MEDS ORDERED: Bisacodyl EC TAB* 5 MG PO ONE (18:24)
[2018-04-27] MEDS: Ondansetron INJ* 2 MG/ML VIAL IV PRN (19:10)
[2018-04-27] MEDS: Meclizine TAB* 12.5 MG PO SCH (19:16)
[2018-04-27] MEDS: traZODone TAB* 100 MG PO SCH (19:35)
[2018-04-27] MEDS: CMCS Simvastatin TAB(NF) 10 MG TAB PO SCH (19:42)
[2018-04-27] MEDS ORDERED: Gabapentin CAP(*) 300 MG PO SCH (21:00)
[2018-04-27] MEDS: Nitro Patch/OINT Remove PATCH OFF SCH (21:14)
[2018-04-28] MEDS: Calcium Acetate CAP* 667 MG PO SCH ×3 (09:52→19:24)
[2018-04-28] MEDS: hydrALAZINE TAB* 25 MG PO SCH (09:53)
[2018-04-28] MEDS: Omeprazole CAP* 20 MG PO SCH ×2 (09:53→19:20)
[2018-04-28] MEDS: Carvedilol TAB* 25 MG PO SCH ×2 (09:53→16:59)
[2018-04-28] MEDS: Citalopram TAB* 20 MG PO SCH (09:53)
[2018-04-28] MEDS: Famotidine TAB* 20 MG PO SCH (09:53)
[2018-04-28] MEDS ORDERED: Heparin DIALYSIS ONLY(*) 1,000 UNITS/ML VIAL DIALYSIS ONE (12:00)
[2018-04-28] MEDS ORDERED: Epoetin Alfa* 4,000 UNITS/ML VIAL IV ONE (12:00)
[2018-04-28] MEDS ORDERED: Magnesium CITRATE* 300 ML BTL PO ONE (14:03)
--- NOTE | 2018-04-28 14:10 | PN ---
Subjective Date of Service: 04/28/18 Interval History: C/O diffuse abdominal pain pain behind both knees He states he has not had a BM since admission, but often had diarrhea at home. Objective Active Medications: Al Hydrox/Mg Hydrox/Simethicone (Maalox Plus*) 30 ml PO Q6H PRN PRN Reason: INDIGESTION Albuterol (Ventolin Hfa Inhaler*) 1 puff INH Q4H PRN PRN Reason: WHEEZING Albuterol/Ipratropium (Duoneb (Albuterol 2.5 Mg/Ipratropium 0.5 Mg)) 1 neb INH [id number] AWAKE PRN PRN Reason: sob/wheexing Last Admin: 04/27/18 09:06 Dose: 1 neb Amlodipine Besylate (Norvasc Tab*) 10 mg PO DAILY [facility] Last Admin: 04/27/18 08:39 Dose: 10 mg Calcium Acetate (Phoslo Cap*) 667 mg PO TID WITH MEALS [facility] Last Admin: 04/28/18 09:52 Dose: Not Given Carvedilol (Coreg Tab*) 25 mg PO BID WITH MEALS [facility] Last Admin: 04/28/18 09:53 Dose: 25 mg Cinacalcet (Sensipar Tab*) 30 mg PO DAILY [facility] Last Admin: 04/27/18 08:37 Dose: 30 mg Citalopram Hydrobromide (Celexa Tab*) 20 mg PO DAILY [facility] Last Admin: 04/28/18 09:53 Dose: 20 mg Duloxetine HCl (Cymbalta Cap*) 30 mg PO QAM [facility] Last Admin: 04/27/18 08:35 Dose: 30 mg Famotidine (Pepcid Tab*) 20 mg PO DAILY [facility]; Protocol Last Admin: 04/28/18 09:53 Dose: 20 mg Folic Acid (Folvite Tab*) 0.5 mg PO DAILY [facility] Last Admin: 04/27/18 08:31 Dose: 0.5 mg Furosemide (Lasix Tab*) 20 mg PO QAM [facility] Last Admin: 04/27/18 08:37 Dose: 20 mg Hydralazine HCl (Apresoline Tab*) 25 mg PO TID [facility] Last Admin: 04/28/18 09:53 Dose: 25 mg Sodium Chloride (Ns 0.9% 100 Ml*) 100 mls @ 0 mls/hr IV ONCE PRN PRN Reason: CRAMPS OR SBP <90 Lisinopril (Prinivil Tab*) 20 mg PO DAILY [facility] Last Admin: 04/27/18 08:38 Dose: 20 mg Lorazepam (Ativan Tab(*)) 0.5 mg PO BEDTIME PRN PRN Reason: ANXIETY Magnesium Citrate (Citrate Of Magnesia*) 300 ml PO ONCE ONE Stop: 04/28/18 14:04 Meclizine HCl (Antivert Tab*) 25 mg PO BEDTIME [facility] Last Admin: 04/27/18 19:16 Dose: 25 mg Nitroglycerin (Nitroglycerin 5 Mg Patch*) 1 patch TRANSDERM DAILY [facility] Last Admin: 04/27/18 08:32 Dose: 1 patch Nitroglycerin (Nitroglycerin Tab 0.4 Mg*) 0.4 mg SL Q5M PRN PRN Reason: PAIN - CHEST Omeprazole (Prilosec Cap*) 40 mg PO BID [facility] Last Admin: 04/28/18 09:53 Dose: 40 mg Ondansetron HCl (Zofran Inj*) 4 mg IV Q4H PRN PRN Reason: NAUSEA/VOMITING Last Admin: 04/27/18 19:10 Dose: 4 mg Oxycodone HCl (Roxycodone Tab*) 10 mg PO Q4HR PRN PRN Reason: PAIN Pharmacy Profile Note (Nitro Patch/Oint Remove*) 1 note PATCH OFF 2100 [facility] Last Admin: 04/27/18 21:14 Dose: 1 patch Simvastatin (Zocor(Nf)) 5 mg PO BEDTIME [facility] Last Admin: 04/27/18 19:42 Dose: 5 mg Sodium Polystyrene Sulfonate (Kayexalate Oral.Joanna*) 15 gm PO DAILY [facility] Last Admin: 04/27/18 08:31 Dose: Not Given Trazodone HCl (Desyrel Tab*) 100 mg PO BEDTIME [facility] Last Admin: 04/27/18 19:35 Dose: 100 mg Zolpidem Tartrate (Ambien Tab*) 5 mg PO BEDTIME PRN PRN Reason: SLEEP Vital Signs - 8 hr 04/28/18 04/28/18 07:57 08:00 Temperature 98.5 F Pulse Rate 64 Respiratory 16 16 Rate Blood Pressure 147/100 (mmHg) O2 Sat by Pulse 100 Oximetry Oxygen Devices in Use Now: Nasal Cannula Appearance: Alert in dialysis chair. Appears fatigued. Eyes: No Scleral Icterus Abdominal: - - obese, soft, diffusely tender. nl BS. Extremities: No Edema, No Clubbing, Cyanosis, - Skin: No Rash or Ulcers, No Nodules or Sclerosis, - Neurological: Alert and Oriented x 3, NL Sensation Result Diagrams: 04/27/18 06:00 04/27/18 06:00 Additional Lab and Data: Lab Results 04/26/18 04/26/18 04/26/18 Range/Units 13:40 13:40 16:32 WBC 4.2 (3.5-10.8) 10^3/ul RBC 3.90 L (4.00-5.40) 10^6/ul Hgb 11.7 L (14.0-18.0) g/dl Hct 36 L (42-52) % MCV 92 (80-94) fL MCH 30 (27-31) pg MCHC 33 (31-36) g/dl RDW 17 H (10.5-15) % Plt Count 114 L (150-450) 10^3/ul MPV 9.0 (7.4-10.4) um3 Neut % (Auto) 66.5 (38-83) % Lymph % (Auto) 16.2 L (25-47) % Sibley % (Auto) 14.9 H (0-7) % Eos % (Auto) 1.5 (0-6) % Baso % (Auto) 0.9 (0-2) % Absolute Neuts (auto) 2.8 (1.5-7.7) 10^3/ul Absolute Lymphs (auto) 0.7 L (1.0-4.8) 10^3/ul Absolute Monos (auto) 0.6 (0-0.8) 10^3/ul Absolute Eos (auto) 0.1 (0-0.6) 10^3/ul Absolute Basos (auto) 0 (0-0.2) 10^3/ul Absolute Nucleated RBC 0 10^3/ul Nucleated RBC % 0.1 Sodium 138 (135-145) mmol/L Potassium 5.7 H (3.5-5.0) mmol/L Chloride 97 L (101-111) mmol/L Carbon Dioxide 27 (22-32) mmol/L Anion Gap 14 H (2-11) mmol/L BUN 57 H (6-24) mg/dL Creatinine 11.40 H (0.67-1.17) mg/dL Est GFR ( Amer) 5.5 (>60) Est GFR (Non-Af Amer) 4.5 (>60) BUN/Creatinine Ratio 5.0 L (8-20) Glucose 80 (70-100) mg/dL Calcium 10.0 (8.6-10.3) mg/dL Total Bilirubin 0.60 (0.2-1.0) mg/dL AST 35 (13-39) U/L ALT 18 (7-52) U/L Alkaline Phosphatase 65 (34-104) U/L Troponin I 0.05 H* 0.05 H* (<0.04) ng/mL C-Reactive Protein < 1.00 (<8.01) mg/L Total Protein 8.1 (6.4-8.9) g/dL Albumin 4.2 (3.2-5.2) g/dL Globulin 3.9 (2-4) g/dL Albumin/Globulin Ratio 1.1 (1-3) Assess/Plan/Problems-Billing Assessment: - Patient Problems (1) Abdominal pain Current Visit: No Status: Acute Code(s): R10.9 - UNSPECIFIED ABDOMINAL PAIN SNOMED Code(s): 68293367 Comment: Chronic. 300 ml mag citreate 04/28. Request for conultation from Dr. Ng. (2) ESRF (end stage renal failure) Current Visit: No Status: Acute Code(s): N18.6 - END STAGE RENAL DISEASE SNOMED Code(s): 13039508 Comment: Continue HD MWF, cinacalcet. (3) Hypertension Current Visit: No Status: Chronic Priority: High Code(s): I10 - ESSENTIAL (PRIMARY) HYPERTENSION SNOMED Code(s): 72284061 Comment: Increased lisinopril and carvedilol 04/27, increase hydralazine on , continue nitrate. Uncertain why he is no longer on minoxidil. (4) Acute thrombosis of deep vein of right upper extremity Current Visit: No Status: Acute Code(s): I82.621 - ACUTE EMBOLISM AND THROMBOSIS OF DEEP VEINS OF R UP EXTREM SNOMED Code(s): 323683973299516 Comment: Warfarin on hold 04/28. INR 04/29.
[2018-04-28] MEDS: Cinacalcet TAB* 30 MG PO SCH (14:32)
[2018-04-28] MEDS: Lisinopril TAB* 10 MG PO SCH (14:33)
[2018-04-28] MEDS: amLODIPine TAB* 5 MG PO SCH (14:33)
[2018-04-28] MEDS: Furosemide TAB* 20 MG PO SCH (14:33)
[2018-04-28] MEDS: DULoxetine DR CAP* 30 MG CAP.DR PO SCH (14:33)
[2018-04-28] MEDS: Folic Acid TAB* 1 MG PO SCH (14:33)
[2018-04-28] MEDS: Nitroglycerin 0.2 MG/HR PATCH* (5 MG) TRANSDERM SCH (14:35)
[2018-04-28] MEDS: oxyCODONE TAB* 5 MG TAB PO PRN ×2 (14:45→19:26)
[2018-04-28] MEDS: Sodium Polystyrene ORAL.SOL* 15 GM/60 ML BTL PO SCH (14:46)
[2018-04-28] MEDS: Nitro Patch/OINT Remove PATCH OFF SCH (19:19)
[2018-04-28] MEDS: traZODone TAB* 100 MG PO SCH (19:19)
[2018-04-28] MEDS: Meclizine TAB* 12.5 MG PO SCH (19:19)
[2018-04-28] MEDS: CMCS Simvastatin TAB(NF) 10 MG TAB PO SCH (19:22)
[2018-04-28] MEDS: Ondansetron INJ* 2 MG/ML VIAL IV PRN (19:30)
[2018-04-28] MEDS ORDERED: hydrALAZINE TAB* 25 MG PO SCH (21:00)
[2018-04-29 03:28] VITALS: BP 121/70
[2018-04-29 06:04] LABS: INR 2.6 (0.77-1.02)
--- NOTE | 2018-04-29 09:02 | PN ---
Progress Note - Progress Note Date of Service: 04/29/18 Note: Time spent on discharge 45 minutes. Face to face physical exam and discussion: 10 minutes. Review of records and documentation and dictation: 35 minutes.
--- NOTE | 2018-04-29 12:54 | DS ---
CC: Dr. Dalal DISCHARGE SUMMARY: DATE OF ADMISSION: DATE OF DISCHARGE: 04/29/18 HOSPITAL COURSE: This 67-year-old man presented with diarrhea, abdominal pain, and intermittent ches t pain. He did not have any bowel movements in the hospital. A KUB showed lot of stool in the colon . I gave him some laxatives. He had a bowel movement. He felt better. It was 2 days before he had a bowel movement in the hospital. On the morning of discharge, he felt much better and really was q uite anxious to go home. At one point in this hospital stay, he was very obtunded in the afternoon; it was after he had a visitor. It is not clear if he ingested some non-prescribed medication I stop ped his gabapentin. He seemed to do just as well without it. I told him he was taking too much medi cations; he agreed. I told him to discuss with Dr. Dalal possibly reducing or eliminating some of h is medications. During his hospital stay, his carvedilol and hydralazine doses were increased to help control his blo od pressure. I encouraged him to take his polyethylene glycol every day rather than p.r.n., in fact, I put down for twice a day to encourage him to take enough. He had dialysis 2 sessions while he was here. FINAL DIAGNOSES: 1. Constipation. 2. End-stage renal disease. 3. Hypertension. 4. Recent thrombosis of right upper extremity. DISCHARGE MEDICATIONS: 1. Carvedilol 25 mg b.i.d. 2. Hydralazine 50 mg t.i.d. 3. Warfarin 2 mg 2 tablets daily at 4 p.m. 4. Ondansetron 4 mg every 6 hours p.r.n. 5. Sucroferric oxyhydroxide 1000 mg t.i.d. with meals. 6. Nitroglycerin 4 mg sublingual every 5 minutes p.r.n. 7. Zolpidem 10 mg h.s. p.r.n. 8. Lorazepam 0.5 mg h.s. p.r.n. 9. Cinacalcet 30 mg daily. 10. Lisinopril 10 mg daily. 11. Ranitidine 150 mg daily. 12. Kayexalate 15 g daily. 13. Albuterol inhaler every 4 hours p.r.n. 14. Iron sucrose complex as prescribed. 15. Albuterol 1 puff four times a day. 16. Epoetin matt 11,000 units as prescribed. 17. Triamcinolone 0.1% ointment t.i.d. to affected areas. 18. Diclofenac 1% gel b.i.d. p.r.n. 19. Duloxetine 30 mg daily. 20. Hydrocortisone 1% cream b.i.d. to affected areas. 21. Parul-Dameon 1 daily. 22. Calcium acetate 660 mg t.i.d. 23. Furosemide 20 mg daily. 24. Folic acid 0.5 mg daily. 25. Docusate 100 mg b.i.d. p.r.n. 26. Cyclobenzaprine 5 mg t.i.d. 27. Amlodipine 10 mg daily. 28. Econazole 1% cream b.i.d. to affected areas. 29. Escitalopram 10 mg daily. 30. Zenpep enzymes 15,000 units t.i.d. 31. Simvastatin 5 mg h.s. 32. Oxycodone 15 mg every 4 hours p.r.n. 33. Trazodone mg h.s. 34. Simethicone 80 mg t.i.d. p.r.n. 35. equivalent 10 mL daily p.r.n. 36. Omeprazole 40 mg b.i.d. 37. Nitroglycerin 0.2 mg per hour patch daily. 38. Ba ctroban b.i.d. p.r.n. 39. Meclizine 25 mg h.s. 40. Lubiprostone 24 mcg daily. 41. Ibuprofen 600 mg t.i.d. p.r.n. 42. Polyethylene glycol 17 g b.i.d. [id number]/[facility] #: [id number]
[2018-04-29] MEDS ORDERED: Warfarin TAB(*) 4 MG PO SCH (17:00)
== END 2018-04-29 10:54 | disposition home or self-care (01) | DRG 391 ==
LOC: ED 12:50 → MEDTELE 18:06 → OBSVTOIN 04-27 14:48
PROVIDERS: ADMIT Internal Medicine; ATTEND Internal Medicine
PROC: 5A1D70Z Performance of Urinary Filtration, Intermittent, Less than 6 Hours Per Day (ICD-10-PCS; principal; 2018-04-26)
PROC: 5A1D70Z Performance of Urinary Filtration, Intermittent, Less than 6 Hours Per Day (ICD-10-PCS; 2018-04-28)
DX: K59.00 Constipation, unspecified (principal); N18.6 End stage renal disease; I42.8 Other cardiomyopathies; I16.1 Hypertensive emergency; I13.2 Hypertensive heart and chronic kidney disease with heart failure and with stage 5 chronic kidney disease, or end stage renal disease; I82.621 Acute embolism and thrombosis of deep veins of right upper extremity; I25.10 Atherosclerotic heart disease of native coronary artery without angina pectoris; I48.91 Unspecified atrial fibrillation; I73.9 Peripheral vascular disease, unspecified; Z99.2 Dependence on renal dialysis; Z79.01 Long term (current) use of anticoagulants; Z86.718 Personal history of other venous thrombosis and embolism; Z95.1 Presence of aortocoronary bypass graft; Z95.810 Presence of automatic (implantable) cardiac defibrillator; D63.1 Anemia in chronic kidney disease; G89.29 Other chronic pain; K21.9 Gastro-esophageal reflux disease without esophagitis; Z86.19 Personal history of other infectious and parasitic diseases; Z88.6 Allergy status to analgesic agent; Z88.5 Allergy status to narcotic agent; F12.90 Cannabis use, unspecified, uncomplicated; J44.9 Chronic obstructive pulmonary disease, unspecified; I50.9 Heart failure, unspecified; Z87.01 Personal history of pneumonia (recurrent); K74.60 Unspecified cirrhosis of liver; M19.90 Unspecified osteoarthritis, unspecified site; H40.9 Unspecified glaucoma; G43.909 Migraine, unspecified, not intractable, without status migrainosus; F32.9 Major depressive disorder, single episode, unspecified; Z82.49 Family history of ischemic heart disease and other diseases of the circulatory system; Z82.3 Family history of stroke; Z87.891 Personal history of nicotine dependence; Z91.15 Patient's noncompliance with renal dialysis; K64.9 Unspecified hemorrhoids
CPT/HCPCS: 36415; 71046; 74018; 80053; 83690; 84484; 85025; 85610; 86140; 90935; 94640; 99283; A9270-GY; G0257; G0378; J0885; J1644; J2405; J3490

== ENCOUNTER 2018-05-10 03:48 | Emergency (ER) | payer MEDICARE, MEDICAID ==
[2018-05-10] MEDS ORDERED: Ondansetron ODT TAB* 4 MG SL PRN (04:13)
[2018-05-10] MEDS ORDERED: Morphine VIAL* 4 MG/ML VIAL (1 ml vial) IV ONE (04:13)
[2018-05-10] MEDS ORDERED: Labetalol IV* 5 MG/ML 20 ML VIAL IV PUSH ONE ×2 (04:14→05:18)
[2018-05-10] MEDS ORDERED: Ondansetron ODT TAB* 4 MG ONE (04:42)
[2018-05-10] MEDS ORDERED: Morphine VIAL* 10 MG/ML 1 ML VIAL ONE ×4 (04:44→07:18)
--- NOTE | 2018-05-10 05:19 | ED ---
Complex/Multi-Sys Presentation - HPI Summary HPI Summary: This is jacinto Chambers documenting for attending Dr. Yuly Ponce MD. A 67 y/o male NICK presents to ED c/o lower flank pain. As per triage, "Left flank pain with chest pain - rates flank pain 10/10, chest pain 8/10. c/o dizziness". According to the patient, the lower flank pain started today and he took his Oxycodone medication for it. It was noted that the patient has dialysis today at 0600. Pt denies any vomiting or any other symptoms. He stated that he feels like he is going to throw up. - History Of Current Complaint Chief Complaint: EDFlankPain Time Seen by Provider: 05/10/18 03:58 Hx Obtained From: Patient Onset/Duration: Sudden Onset, Lasting Hours, Still Present Timing: Constant Severity Currently: Severe Severity Initially: Severe Location: Pain At: - Left flank pain and chest pain Aggravating Factor(s): NOTHING Alleviating Factor(s): NOTHING Associated Signs And Symptoms: Positive: Dizziness, Chest Pain, Nausea, Abdominal Pain - Flank pain. Negative: Vomiting - Allergies/Home Medications Allergies/Adverse Reactions: Allergies Allergy/AdvReac Type Severity Reaction Status Date / Time aspirin Allergy "Ever Verified 04/26/18 13:09 since i was a boy i was told not to take aspirin" hydromorphone AdvReac Pt states Verified 04/26/18 13:09 "he feels like a junky" PMH/Surg Hx/FS Hx/Imm Hx Endocrine/Hematology History: Reports: Hx Blood Transfusions, Hx Sickle Cell Disease - Was told had sickle cell at one point but denies, Hx Anemia Denies: Hx Anticoagulant Therapy, Hx Bone Marrow Disease, Hx Diabetes, Hx Thyroid Disease Cardiovascular History: Reports: Hx Angina, Hx Auto Implanted Cardiovert Defib, Hx Congestive Heart Failure, Hx Coronary Artery Disease, Hx Deep Vein Thrombosis , Hx Hypertension, Hx Pacemaker/ICD, Hx Peripheral Vascular Disease, Hx Syncope , Other Cardiovascular Problems/Disorders - cardiomegaly, mitral valve and tricuspid valve repair Denies: Hx Cardiomegaly, Hx Hypercholesterolemia, Hx Myocardial Infarction, Hx Rheumatic Fever, Hx Valvular Heart Disease Respiratory History: Reports: Hx Asthma, Hx Chronic Obstructive Pulmonary Disease (COPD), Hx Pleural Effusion, Hx Pneumonia, Other Respiratory Problems/ Disorders Denies: Hx Pulmonary Edema, Hx Pulmonary Embolism, Hx Sleep Apnea GI History: Reports: Hx Cirrhosis, Hx Gastroesophageal Reflux Disease, Hx Ulcer - peptic ulcer, Other GI Disorders - hep C Denies: Hx Crohn's Disease, Hx Hiatal Hernia, Hx Irritable Bowel, Hx Jaundice History: Reports: Hx Acute Renal Failure, Hx Chronic Renal Failure, Hx Dialysis, Hx Renal Disease, Other Problems/Disorders - end stage renal disease, on dialysis Denies: Hx Kidney Infection, Hx Kidney Stones Musculoskeletal History: Reports: Hx Arthritis, Hx Back Problems - chronic pain , Hx Orthopedic Injury Denies: Hx Rheumatoid Arthritis, Hx Bursitis, Hx Tendonitis, Other Musculoskeletal History Sensory History: Reports: Hx Contacts or Glasses - did not bring however, Hx Glaucoma, Hx Vision Problem Denies: Hx Cataracts, Hx Hearing Aid Opthamlomology History: Reports: Hx Contacts or Glasses - did not bring however , Hx Glaucoma, Hx Vision Problem Denies: Hx Cataracts Neurological History: Reports: Hx Headaches, Hx Migraine, Other Neuro Impairments/Disorders - depression Denies: Hx Dementia, Hx Seizures Psychiatric History: Reports: Hx Anxiety, Hx Depression, Hx Substance Abuse - ETOH Denies: Hx Eating Disorder, Hx Panic Disorder, Hx Suicide Attempt, Hx of Violent Episodes Against Others - Cancer History Hx Chemotherapy: No Hx Radiation Therapy: No Hx Palliative Cancer Treatment: No - Surgical History Surgery Procedure, Year, and Place: HERNIA REPAIR 2012. APPENDECTOMY 2000. LEFT ARM AV FISTULA/CAD - REMOVED. CABG 1 vessel, mitral & tricuspid valve repair March 02, 2014 AT [facility] CONDITIONAL 5 UPTO 3T. POWER PORT. Mitral and tricuspid valve repair Hx Anesthesia Reactions: No - Immunization History Date of Tetanus Vaccine: 2014 Date of Influenza Vaccine: Fall 2015 Infectious Disease History: No Infectious Disease History: Reports: Hx Hepatitis - Hep C, Hx of Known/ Suspected MRSA, History Other Infectious Disease - Hepatitis C Denies: Hx Clostridium Difficile, Hx Human Immunodeficiency Virus (HIV), Hx Shingles, Hx Tuberculosis, Hx Known/Suspected VRE, Hx Known/Suspected VRSA, Traveled Outside the in Last 30 Days - Family History Known Family History: Positive: Cardiac Disease, Hypertension, Other - CVA Family History: R & N/C - Social History Alcohol Use: None Alcohol Amount: former EtOH abuse Hx Substance Use: Yes Substance Use Type: Reports: Marijuana Substance Use Comment - Amount & Last Used: for pain Hx Tobacco Use: Yes Smoking Status (MU): Former Smoker Type: Cigarettes Amount Used/How Often: 1/2 ppd Length of Time of Smoking/Using Tobacco: 10 years Have You Smoked in the Last Year: No Review of Systems Negative: Fever Positive: Chest Pain Positive: Abdominal Pain - Flank pain, Nausea. Negative: Vomiting Psychological: Other - POSITIVE: Dizziness All Other Systems Reviewed And Are Negative: Yes Physical Exam - Summary Physical Exam Summary: VITAL SIGNS: Reviewed. GENERAL: Patient is a well-developed and nourished MALE who is lying comfortable in the stretcher. Patient is not in any acute respiratory distress. Patient has dialysis catheter in right forearm. Patient has dialysis catheter in right forearm which is not functioning. Shiley catheter over the left chest. HEAD AND FACE: No signs of trauma. No ecchymosis, hematomas or skull depressions. No sinus tenderness. EYES: PERRLA, EOMI x 2, No injected conjunctiva, no nystagmus. EARS: Hearing grossly intact. Ear canals and tympanic membranes are within normal limits. MOUTH: Oropharynx within normal limits. NECK: Supple, trachea is midline, no adenopathy, no JVD, no carotid bruit, no c- spine tenderness, neck with full ROM. CHEST: Symmetric, no tenderness at palpation LUNGS: Clear to auscultation bilaterally. No wheezing or crackles. CVS: Regular rate and rhythm, S1 and S2 present, no murmurs or gallops appreciated. ABDOMEN: Soft, non-tender. No signs of distention. No rebound no guarding, and no masses palpated. Bowel sounds are normal. EXTREMITIES: FROM in all major joints, no edema, no cyanosis or clubbing. NEURO: Alert and oriented x 3. No acute neurological deficits. Speech is normal and follows commands. SKIN: Dry and warm Triage Information Reviewed: Yes Vital Signs On Initial Exam: Initial Vitals Temp Pulse Resp BP Pulse Ox 99.1 F 80 12 224/152 99 05/10/18 03:57 05/10/18 03:57 05/10/18 03:57 05/10/18 03:57 05/10/18 03:57 Vital Signs Reviewed: Yes Diagnostics - Vital Signs Vital Signs Temp Pulse Resp BP Pulse Ox 05/10/18 04:50 20 05/10/18 04:03 80 21 203/150 100 05/10/18 04:02 98.6 F 81 134 203/150 100 05/10/18 03:57 99.1 F 80 12 224/152 99 - Laboratory Result Diagrams: 05/10/18 05:40 05/10/18 05:40 Lab Statement: Any lab studies that have been ordered have been reviewed, and results considered in the medical decision making process. Re-Evaluation - Re-Evaluation First Eval Re-Evaluation Time: 05:20 Comment: Initially, patient told nursing staff that he wants to leave because he has dialysis at 0600 and wanted to sign-out AMA. Even when patient was advised he could have abdominal abnormality patient still insisted on signing out AMA. However, when the physician came to speak to the patient, the patient decided to stay in ED. Complex Multi-Symp Course/Dx Course Of Treatment: A 67 y/o male with history of HTN has frequent visits to ED. Chronic pain patient. Patient came because he has LLQ abdominal pain. Patient had CAT scan recently, however, it came back negative. Today, BIBA to ED c/o lower flank pain. As per triage, "Left flank pain with chest pain - rates flank pain 10/10, chest pain 8/10. c/o dizziness". According to the patient, the lower flank pain started today and he took his Oxycodone medication for it. It was noted that the patient has dialysis today at 0600. Pt denies any vomiting or any other symptoms. He stated that he feels like he is going to throw up. No laboratory scans were done. In the ED course, the patient recieved Transdate, Morphine and Zofran. During reevaluation, patient feels much better and would like to go to dialysis. Pt will be discharged with a diagnosis of abdominal pain. Pt is to follow up with PCP in 1-2 days. Pt is agreeable with this plan. - Diagnoses Provider Diagnoses: Abdominal pain Discharge - Sign-Out/Discharge Documenting (check all that apply): Patient Departure - DISCHARGE - Discharge Plan Condition: Stable Disposition: HOME Patient Education Materials: Abdominal Pain (ED) Referrals: Marielena Vargas MD [Primary Care Provider] - 2 Days Additional Instructions: FOLLOW UP WITH PRIMARY CARE PHYSICIAN IN 1-2 DAYS. RETURN TO ED FOR ANY NEW OR WORSENING SYMPTOMS.
[2018-05-10 05:53] LABS: ABS Basophils 0.1 10^3/ul (0-0.2); ABS Eosinophils 0.1 10^3/ul (0-0.6); ABS Lymphocytes 0.7 10^3/ul (1.0-4.8); ABS Monocytes 0.5 10^3/ul (0-0.8); ABS Neutrophils 1.7 10^3/ul (1.5-7.7); ABS Nucleated RBC 0 10^3/ul; Eosinophil % 2.9 % (0-6); Hematocrit 35 % (42-52); Hemoglobin 11.5 g/dl (14.0-18.0); Lymphocyte % 22.5 % (25-47); Mean Corpuscular HGB Conc 32 g/dl (31-36); Mean Corpuscular Hemoglobin 30 pg (27-31); Mean Corpuscular Volume 91 fL (80-94); Mean Platelet Volume 8.1 um3 (7.4-10.4); Nucleated Red Blood Cells % 0.1; Platelet Count 100 10^3/ul (150-450); Red Blood Count 3.87 10^6/ul (4.00-5.40); Red Cell Distribution Width 17 % (10.5-15); White Blood Count 2.9 10^3/ul (3.5-10.8)
[2018-05-10 06:05] LABS: EGFR Non-African American 5.2 (>60)
[2018-05-10 06:23] VITALS: BP 184/123
== END 2018-05-10 06:23 | disposition home or self-care (01) ==
LOC: ED 03:48
DX: R10.32 Left lower quadrant pain (principal); R42 Dizziness and giddiness; R07.9 Chest pain, unspecified; R11.0 Nausea; Z87.891 Personal history of nicotine dependence
CPT/HCPCS: 36415; 80053; 83690; 85025; 86140; 96374; 96375; 99283; A9270-GY; J2270

== ENCOUNTER 2018-05-14 09:07 | Emergency (ER) | payer MEDICARE, MEDICAID ==
[2018-05-14] MEDS ORDERED: Morphine VIAL* 10 MG/ML 1 ML VIAL ONE (09:49)
[2018-05-14] MEDS ORDERED: Morphine VIAL* 10 MG/ML 1 ML VIAL IM ONE (09:53)
[2018-05-14] MEDS ORDERED: Ondansetron ODT TAB* 4 MG PO ONE (09:53)
[2018-05-14] MEDS ORDERED: Ondansetron ODT TAB* 4 MG ONE (09:55)
--- NOTE | 2018-05-14 10:39 | ED ---
Back Pain - HPI Summary HPI Summary: This is jacinto Haider documenting for Dr. Noah Wadsworth MD. Pt is a 67 y/o M who presents to ED c/o back pains. He was in the middle of dialysis with 37 minutes left when he felt this strong pain and was brought here. He rated the pain as a 10/10 in severity at triage. The pain is in his lower back and radiates down both legs. Denies chest pain and abdominal pain. Has pain medication at home. - History of Current Complaint Chief Complaint: EDBackInjuryPain Stated Complaint: BACK PAIN,LEG CRAMPS Time Seen by Provider: 05/14/18 09:36 Hx Obtained From: Patient Onset/Duration: Sudden Onset, Still Present Back Pain Location: Radiates To - Both legs Severity Initially: Severe Severity Currently: Severe Pain Intensity: 10 Pain Scale Used: 0-10 Numeric Associated Signs And Symptoms: Negative: Abdominal Pain - Allergies/Home Medications Allergies/Adverse Reactions: Allergies Allergy/AdvReac Type Severity Reaction Status Date / Time aspirin Allergy "Ever Verified 05/14/18 09:24 since i was a boy i was told not to take aspirin" hydromorphone AdvReac Pt states Verified 05/14/18 09:24 "he feels like a junky" PMH/Surg Hx/FS Hx/Imm Hx Endocrine/Hematology History: Reports: Hx Blood Transfusions, Hx Sickle Cell Disease - Was told had sickle cell at one point but denies, Hx Anemia Denies: Hx Anticoagulant Therapy, Hx Bone Marrow Disease, Hx Diabetes, Hx Thyroid Disease Cardiovascular History: Reports: Hx Angina, Hx Auto Implanted Cardiovert Defib, Hx Congestive Heart Failure, Hx Coronary Artery Disease, Hx Deep Vein Thrombosis , Hx Hypertension, Hx Pacemaker/ICD, Hx Peripheral Vascular Disease, Hx Syncope , Other Cardiovascular Problems/Disorders - cardiomegaly, mitral valve and tricuspid valve repair Denies: Hx Cardiomegaly, Hx Hypercholesterolemia, Hx Myocardial Infarction, Hx Rheumatic Fever, Hx Valvular Heart Disease Respiratory History: Reports: Hx Asthma, Hx Chronic Obstructive Pulmonary Disease (COPD), Hx Pleural Effusion, Hx Pneumonia, Other Respiratory Problems/ Disorders Denies: Hx Pulmonary Edema, Hx Pulmonary Embolism, Hx Sleep Apnea GI History: Reports: Hx Cirrhosis, Hx Gastroesophageal Reflux Disease, Hx Ulcer - peptic ulcer, Other GI Disorders - hep C Denies: Hx Crohn's Disease, Hx Hiatal Hernia, Hx Irritable Bowel, Hx Jaundice History: Reports: Hx Acute Renal Failure, Hx Chronic Renal Failure, Hx Dialysis, Hx Renal Disease, Other Problems/Disorders - end stage renal disease, on dialysis Denies: Hx Kidney Infection, Hx Kidney Stones Musculoskeletal History: Reports: Hx Arthritis, Hx Back Problems - chronic pain , Hx Orthopedic Injury Denies: Hx Rheumatoid Arthritis, Hx Bursitis, Hx Tendonitis, Other Musculoskeletal History Sensory History: Reports: Hx Contacts or Glasses - did not bring however, Hx Glaucoma, Hx Vision Problem Denies: Hx Cataracts, Hx Hearing Aid Opthamlomology History: Reports: Hx Contacts or Glasses - did not bring however , Hx Glaucoma, Hx Vision Problem Denies: Hx Cataracts Neurological History: Reports: Hx Headaches, Hx Migraine, Other Neuro Impairments/Disorders - depression Denies: Hx Dementia, Hx Seizures Psychiatric History: Reports: Hx Anxiety, Hx Depression, Hx Substance Abuse - ETOH Denies: Hx Eating Disorder, Hx Panic Disorder, Hx Suicide Attempt, Hx of Violent Episodes Against Others - Cancer History Hx Chemotherapy: No Hx Radiation Therapy: No Hx Palliative Cancer Treatment: No - Surgical History Surgery Procedure, Year, and Place: HERNIA REPAIR 2012. APPENDECTOMY 2000. LEFT ARM AV FISTULA/CAD - REMOVED. CABG 1 vessel, mitral & tricuspid valve repair March 02, 2014 AT [facility] CONDITIONAL 5 UPTO 3T. POWER PORT. Mitral and tricuspid valve repair Hx Anesthesia Reactions: No - Immunization History Date of Tetanus Vaccine: 2014 Date of Influenza Vaccine: Fall 2015 Infectious Disease History: No Infectious Disease History: Reports: Hx Hepatitis - Hep C, Hx of Known/ Suspected MRSA, History Other Infectious Disease - Hepatitis C Denies: Hx Clostridium Difficile, Hx Human Immunodeficiency Virus (HIV), Hx Shingles, Hx Tuberculosis, Hx Known/Suspected VRE, Hx Known/Suspected VRSA, Traveled Outside the [place] in Last 30 Days - Family History Known Family History: Positive: Cardiac Disease, Hypertension, Other - CVA - Social History Alcohol Use: None Alcohol Amount: former EtOH abuse Hx Substance Use: Yes Substance Use Type: Reports: Marijuana, Prescribed Substance Use Comment - Amount & Last Used: for pain Hx Tobacco Use: Yes Smoking Status (MU): Former Smoker Type: Cigarettes Amount Used/How Often: 1/2 ppd Length of Time of Smoking/Using Tobacco: 10 years Have You Smoked in the Last Year: No Review of Systems Negative: Chest Pain Negative: Abdominal Pain Positive: Other - Back pain that radiates down both legs All Other Systems Reviewed And Are Negative: Yes Physical Exam - Summary Physical Exam Summary: Appearance: Well appearing, no pain distress Skin: warm, dry, reflects adequate perfusion Head/face: normal Eyes: EOMI, KINGS ENT: normal Neck: supple, non-tender Respiratory: CTA, breath sounds present Cardiovascular: RRR, pulses symmetrical Abdomen: Tessio catheter in left chest, non-tender, soft Bowel: present Musculoskeletal: spasm in lumbar spine area, strength/ROM intact Neuro: normal, sensory motor intact, A&Ox3 Triage Information Reviewed: Yes Vital Signs On Initial Exam: Initial Vitals Temp Pulse Resp BP Pulse Ox 98.5 F 73 20 153/86 96 05/14/18 09:20 05/14/18 09:20 05/14/18 09:20 05/14/18 09:20 05/14/18 09:20 Vital Signs Reviewed: Yes Diagnostics - Vital Signs Vital Signs Temp Pulse Resp BP Pulse Ox 05/14/18 09:53 20 05/14/18 09:20 98.5 F 73 20 153/86 96 - Laboratory Lab Statement: Any lab studies that have been ordered have been reviewed, and results considered in the medical decision making process. Re-Evaluation - Re-Evaluation First Eval Re-Evaluation Time: 11:15 Change: Improved - Pt says he feels better with morphine. Back Pain Course/Dx - Course Course Of Treatment: Pt is a 67 y/o M who presents to ED c/o lower back pain that radiates down both legs and he rates as 10/10 in severity. He was in the middle of dialysis with 37 minutes left when he felt this strong pain and was brought here. Denies chest pain and abdominal pain. Was given Morphine 4 mg IM and Ondansetron 4 mg PO. Spoke to pt again at 11:15 and he said he was feeling better after morphine. He has been diagnosed with back pain and ESRD. He was discharged home and told to follow up with PCP in 3 days. Pt is agreeable with this plan. - Diagnoses Differential Diagnosis/HQI/PQRI: Positive: Fracture, Strain, Sprain Provider Diagnoses: End stage renal disease, Back pain Discharge - Sign-Out/Discharge Documenting (check all that apply): Patient Departure - Discharge - Discharge Plan Condition: Stable Disposition: HOME Patient Education Materials: Back Pain (ED), End Stage Kidney Disease (ED) Referrals: Marielena Vargas MD [Primary Care Provider] - 3 Days Additional Instructions: RETURN TO ED FOR ANY NEW OR WORSENING SYMPTOMS. - Billing Disposition and Condition Condition: STABLE Disposition: Home
[2018-05-14 11:51] VITALS: BP 163/81
== END 2018-05-14 11:49 | disposition home or self-care (01) ==
LOC: ED 09:07
DX: I12.0 Hypertensive chronic kidney disease with stage 5 chronic kidney disease or end stage renal disease (principal); M54.9 Dorsalgia, unspecified; N18.6 End stage renal disease; Z99.2 Dependence on renal dialysis; J44.9 Chronic obstructive pulmonary disease, unspecified; I50.9 Heart failure, unspecified; D57.1 Sickle-cell disease without crisis; I25.10 Atherosclerotic heart disease of native coronary artery without angina pectoris; I25.2 Old myocardial infarction
CPT/HCPCS: 96372; 99282; A9270-GY; J2270

== ENCOUNTER 2018-05-19 08:18 | Emergency (ER) | payer MEDICARE, MEDICAID ==
[2018-05-19] MEDS ORDERED: Morphine VIAL* 4 MG/ML VIAL (1 ml vial) IV ONE (08:45)
[2018-05-19] MEDS ORDERED: Ondansetron ODT TAB* 4 MG PO ONE (08:45)
--- NOTE | 2018-05-19 08:51 | ED ---
Complex/Multi-Sys Presentation - HPI Summary HPI Summary: This is jacinto Montano documenting for attending Dr. Dinorah Gomez This patient is a 67 year old M presenting to [facility] with a chief complaint of left flank pain since this AM. Pt just came from dialysis. Pt endorses pain in back of leg, and left flank pain radiating to his back. Pt endorses he was supposed to have stress test today, so he could not eat/drink/take meds today. - History Of Current Complaint Hx Obtained From: Patient Onset/Duration: Sudden Onset, Still Present Timing: Constant Severity Currently: Mild Severity Initially: Mild Location: Pain At: - left flank, posterior thighs Alleviating Factor(s): Morphine Associated Signs And Symptoms: Positive: Abdominal Pain, Back Pain. Negative: Fever Related History: Recent Hospitalization - Allergies/Home Medications Allergies/Adverse Reactions: Allergies Allergy/AdvReac Type Severity Reaction Status Date / Time aspirin Allergy "Ever Verified 05/19/18 08:25 since i was a boy i was told not to take aspirin" hydromorphone AdvReac Pt states Verified 05/19/18 08:25 "he feels like a junky" PMH/Surg Hx/FS Hx/Imm Hx Endocrine/Hematology History: Reports: Hx Blood Transfusions, Hx Sickle Cell Disease - Was told had sickle cell at one point but denies, Hx Anemia Denies: Hx Anticoagulant Therapy, Hx Bone Marrow Disease, Hx Diabetes, Hx Thyroid Disease Cardiovascular History: Reports: Hx Angina, Hx Auto Implanted Cardiovert Defib, Hx Congestive Heart Failure, Hx Coronary Artery Disease, Hx Deep Vein Thrombosis , Hx Hypertension, Hx Pacemaker/ICD, Hx Peripheral Vascular Disease, Hx Syncope , Other Cardiovascular Problems/Disorders - cardiomegaly, mitral valve and tricuspid valve repair Denies: Hx Cardiomegaly, Hx Hypercholesterolemia, Hx Myocardial Infarction, Hx Rheumatic Fever, Hx Valvular Heart Disease Respiratory History: Reports: Hx Asthma, Hx Chronic Obstructive Pulmonary Disease (COPD), Hx Pleural Effusion, Hx Pneumonia, Other Respiratory Problems/ Disorders Denies: Hx Pulmonary Edema, Hx Pulmonary Embolism, Hx Sleep Apnea GI History: Reports: Hx Cirrhosis, Hx Gastroesophageal Reflux Disease, Hx Ulcer - peptic ulcer, Other GI Disorders - hep C Denies: Hx Crohn's Disease, Hx Hiatal Hernia, Hx Irritable Bowel, Hx Jaundice History: Reports: Hx Acute Renal Failure, Hx Chronic Renal Failure, Hx Dialysis, Hx Renal Disease, Other Problems/Disorders - end stage renal disease, on dialysis Denies: Hx Kidney Infection, Hx Kidney Stones Musculoskeletal History: Reports: Hx Arthritis, Hx Back Problems - chronic pain , Hx Orthopedic Injury Denies: Hx Rheumatoid Arthritis, Hx Bursitis, Hx Tendonitis, Other Musculoskeletal History Sensory History: Reports: Hx Contacts or Glasses - did not bring however, Hx Glaucoma, Hx Vision Problem Denies: Hx Cataracts, Hx Hearing Aid Opthamlomology History: Reports: Hx Contacts or Glasses - did not bring however , Hx Glaucoma, Hx Vision Problem Denies: Hx Cataracts Neurological History: Reports: Hx Headaches, Hx Migraine, Other Neuro Impairments/Disorders - depression Denies: Hx Dementia, Hx Seizures Psychiatric History: Reports: Hx Anxiety, Hx Depression, Hx Substance Abuse - ETOH Denies: Hx Eating Disorder, Hx Panic Disorder, Hx Suicide Attempt, Hx of Violent Episodes Against Others - Cancer History Hx Chemotherapy: No Hx Radiation Therapy: No Hx Palliative Cancer Treatment: No - Surgical History Surgery Procedure, Year, and Place: HERNIA REPAIR 2012. APPENDECTOMY 2000. LEFT ARM AV FISTULA/CAD - REMOVED. CABG 1 vessel, mitral & tricuspid valve repair March 02, 2014 AT [facility] CONDITIONAL 5 UPTO 3T. POWER PORT. Mitral and tricuspid valve repair Hx Anesthesia Reactions: No - Immunization History Date of Tetanus Vaccine: 2014 Date of Influenza Vaccine: Fall 2015 Infectious Disease History: No Infectious Disease History: Reports: Hx Hepatitis - Hep C, Hx of Known/ Suspected MRSA, History Other Infectious Disease - Hepatitis C Denies: Hx Clostridium Difficile, Hx Human Immunodeficiency Virus (HIV), Hx Shingles, Hx Tuberculosis, Hx Known/Suspected VRE, Hx Known/Suspected VRSA, Traveled Outside the in Last 30 Days - Family History Known Family History: Positive: Cardiac Disease, Hypertension, Other - CVA Family History: R & N/C - Social History Alcohol Use: None Alcohol Amount: former EtOH abuse Hx Substance Use: Yes Substance Use Type: Reports: Marijuana, Prescribed Substance Use Comment - Amount & Last Used: for pain Hx Tobacco Use: Yes Smoking Status (MU): Former Smoker Type: Cigarettes Amount Used/How Often: 1/2 ppd Length of Time of Smoking/Using Tobacco: 10 years Have You Smoked in the Last Year: No Review of Systems Negative: Fever Positive: flank pain Positive: Myalgia - lower back, posterior thighs, Edema All Other Systems Reviewed And Are Negative: Yes Physical Exam - Summary Physical Exam Summary: Appearance: Well appearing, no pain distress Skin: warm, dry, reflects adequate perfusion Head/face: normal Eyes: EOMI, KINGS ENT: normal Neck: supple, non-tender Respiratory: CTA, breath sounds present Cardiovascular: slight systolic murmur, pulses symmetrical Abdomen: non-tender, soft Bowel Sounds: present Musculoskeletal: strength/ROM intact, edema in right hand, trace edema in legs Neuro: normal, sensory motor intact, A&Ox3 Triage Information Reviewed: Yes Vital Signs On Initial Exam: Initial Vitals Temp Pulse Resp BP Pulse Ox 98.7 F 78 18 218/142 94 05/19/18 08:22 05/19/18 08:22 05/19/18 08:22 05/19/18 08:22 05/19/18 08:22 Vital Signs Reviewed: Yes Diagnostics - Vital Signs Vital Signs Temp Pulse Resp BP Pulse Ox 05/19/18 08:22 98.7 F 78 18 218/142 94 - Laboratory Lab Statement: Any lab studies that have been ordered have been reviewed, and results considered in the medical decision making process. Re-Evaluation - Re-Evaluation First Eval Change: Improved Complex Multi-Symp Course/Dx Course Of Treatment: Patient is a very frequent visitor of the ER often with pain related complaints. He is usually remedied within injection of morphine. Today this is also true. He was unable to take his oral pain medication as he was supposed to be nothing by mouth for a stress test this morning. Pain was relieved with morphine. - Diagnoses Provider Diagnoses: Opioid dependence, Chronic pain, ESRD (end stage renal disease) on dialysis Discharge - Sign-Out/Discharge Documenting (check all that apply): Patient Departure - discharge - Discharge Plan Condition: Improved Disposition: HOME Patient Education Materials: Chronic Pain (ED) Referrals: Marielena Vargas MD [Primary Care Provider] - Additional Instructions: Go to your appointments as needed. Return if worse, new symptoms or other concerns. - Billing Disposition and Condition Condition: IMPROVED Disposition: Home
[2018-05-19] MEDS ORDERED: Morphine VIAL* 10 MG/ML 1 ML VIAL ONE (08:52)
[2018-05-19 09:20] VITALS: BP 0/0
== END 2018-05-19 09:18 | disposition home or self-care (01) ==
LOC: ED 08:18
DX: F11.20 Opioid dependence, uncomplicated (principal); I12.0 Hypertensive chronic kidney disease with stage 5 chronic kidney disease or end stage renal disease; N18.6 End stage renal disease; Z99.2 Dependence on renal dialysis; G89.29 Other chronic pain; Z82.3 Family history of stroke; Z82.49 Family history of ischemic heart disease and other diseases of the circulatory system; Z88.6 Allergy status to analgesic agent; Z88.8 Allergy status to other drugs, medicaments and biological substances; Z87.891 Personal history of nicotine dependence; F41.9 Anxiety disorder, unspecified
CPT/HCPCS: 96374; 99282; A9270-GY; J2270

== ENCOUNTER 2018-05-19 23:50 | Emergency (ER) | payer MEDICARE ==
[2018-05-20] MEDS ORDERED: oxyCODONE/Acetamin 5/325 MG* TAB PO ONE (00:50)
--- NOTE | 2018-05-20 02:14 | ED ---
Abdominal Pain/Male - HPI Summary HPI Summary: This is isabellaesvin Booker Reyes documenting for attending Dr. Yuly Ponce MD. A 67 y/o male presents to ED c/o abdominal pain reaching 10/10 in severity. As per triage, "Pt in with c/o left flank pain tonight. Pt also states needing a "breathing treatment". According to the patient, he experiences left flank abdominal pain since yesterday. Additionally c/o pain in legs. He noted that the pain he is experiences is different then what he feels during dialysis ( treatment yesterday). Additional symptoms include vomiting. Patient took oxycodone around 1900. - History of Current Complaint Chief Complaint: EDFlankPain Stated Complaint: LT FLANK PAIN Time Seen by Provider: 05/20/18 00:18 Hx Obtained From: Patient Onset/Duration: Sudden Onset, Lasting Days, Still Present Timing: Constant Severity Initially: Severe Severity Currently: Severe Pain Intensity: 10 Pain Scale Used: 0-10 Numeric Location: Flank - Left Radiates: Yes Radiates to: Other - Legs Aggravating Factor(s): Nothing Alleviating Factor(s): Nothing Associated Signs And Symptoms: Positive: Vomiting. Negative: Fever - Allergies/Home Medications Allergies/Adverse Reactions: Allergies Allergy/AdvReac Type Severity Reaction Status Date / Time aspirin Allergy "Ever Verified 05/19/18 08:25 since i was a boy i was told not to take aspirin" hydromorphone AdvReac Pt states Verified 05/19/18 08:25 "he feels like a junky" PMH/Surg Hx/FS Hx/Imm Hx Endocrine/Hematology History: Reports: Hx Blood Transfusions, Hx Sickle Cell Disease - Was told had sickle cell at one point but denies, Hx Anemia Denies: Hx Anticoagulant Therapy, Hx Bone Marrow Disease, Hx Diabetes, Hx Thyroid Disease Cardiovascular History: Reports: Hx Angina, Hx Auto Implanted Cardiovert Defib, Hx Congestive Heart Failure, Hx Coronary Artery Disease, Hx Deep Vein Thrombosis , Hx Hypertension, Hx Pacemaker/ICD, Hx Peripheral Vascular Disease, Hx Syncope , Other Cardiovascular Problems/Disorders - cardiomegaly, mitral valve and tricuspid valve repair Denies: Hx Cardiomegaly, Hx Hypercholesterolemia, Hx Myocardial Infarction, Hx Rheumatic Fever, Hx Valvular Heart Disease Respiratory History: Reports: Hx Asthma, Hx Chronic Obstructive Pulmonary Disease (COPD), Hx Pleural Effusion, Hx Pneumonia, Other Respiratory Problems/ Disorders Denies: Hx Pulmonary Edema, Hx Pulmonary Embolism, Hx Sleep Apnea GI History: Reports: Hx Cirrhosis, Hx Gastroesophageal Reflux Disease, Hx Ulcer - peptic ulcer, Other GI Disorders - hep C Denies: Hx Crohn's Disease, Hx Hiatal Hernia, Hx Irritable Bowel, Hx Jaundice History: Reports: Hx Acute Renal Failure, Hx Chronic Renal Failure, Hx Dialysis, Hx Renal Disease, Other Problems/Disorders - end stage renal disease, on dialysis Denies: Hx Kidney Infection, Hx Kidney Stones Musculoskeletal History: Reports: Hx Arthritis, Hx Back Problems - chronic pain , Hx Orthopedic Injury Denies: Hx Rheumatoid Arthritis, Hx Bursitis, Hx Tendonitis, Other Musculoskeletal History Sensory History: Reports: Hx Contacts or Glasses - did not bring however, Hx Glaucoma, Hx Vision Problem Denies: Hx Cataracts, Hx Hearing Aid Opthamlomology History: Reports: Hx Contacts or Glasses - did not bring however , Hx Glaucoma, Hx Vision Problem Denies: Hx Cataracts Neurological History: Reports: Hx Headaches, Hx Migraine, Other Neuro Impairments/Disorders - depression Denies: Hx Dementia, Hx Seizures Psychiatric History: Reports: Hx Anxiety, Hx Depression, Hx Substance Abuse - ETOH Denies: Hx Eating Disorder, Hx Panic Disorder, Hx Suicide Attempt, Hx of Violent Episodes Against Others - Cancer History Hx Chemotherapy: No Hx Radiation Therapy: No Hx Palliative Cancer Treatment: No - Surgical History Surgery Procedure, Year, and Place: HERNIA REPAIR 2012. APPENDECTOMY 2000. LEFT ARM AV FISTULA/CAD - REMOVED. CABG 1 vessel, mitral & tricuspid valve repair March 02, 2014 AT [facility] CONDITIONAL 5 UPTO 3T. POWER PORT. Mitral and tricuspid valve repair Hx Anesthesia Reactions: No - Immunization History Date of Tetanus Vaccine: 2014 Date of Influenza Vaccine: Fall 2015 Infectious Disease History: No Infectious Disease History: Reports: Hx Hepatitis - Hep C, Hx of Known/ Suspected MRSA, History Other Infectious Disease - Hepatitis C Denies: Hx Clostridium Difficile, Hx Human Immunodeficiency Virus (HIV), Hx Shingles, Hx Tuberculosis, Hx Known/Suspected VRE, Hx Known/Suspected VRSA, Traveled Outside the [place] in Last 30 Days - Family History Known Family History: Positive: Cardiac Disease, Hypertension, Other - CVA Family History: R & N/C - Social History Alcohol Use: None Alcohol Amount: former EtOH abuse Hx Substance Use: Yes Substance Use Type: Reports: Marijuana, Prescribed Substance Use Comment - Amount & Last Used: for pain Hx Tobacco Use: Yes Smoking Status (MU): Former Smoker Type: Cigarettes Amount Used/How Often: 1/2 ppd Length of Time of Smoking/Using Tobacco: 10 years Have You Smoked in the Last Year: No Review of Systems Negative: Fever Positive: Abdominal Pain, Vomiting Positive: Other - POSITIVE: Leg pain All Other Systems Reviewed And Are Negative: Yes Physical Exam - Summary Physical Exam Summary: VITAL SIGNS: Reviewed. GENERAL: Patient is a male who has a dialysis catheter in the left upper chest and is lying comfortable in the stretcher. Patient is not in any acute respiratory distress. Patient is not vomiting or has no difficulty breathing. Patient is somewhat anxious. Patient is at baseline. HEAD AND FACE: No signs of trauma. No ecchymosis, hematomas or skull depressions. No sinus tenderness. EYES: PERRLA, EOMI x 2, No injected conjunctiva, no nystagmus. EARS: Hearing grossly intact. Ear canals and tympanic membranes are within normal limits. MOUTH: Oropharynx within normal limits. NECK: Supple, trachea is midline, no adenopathy, no JVD, no carotid bruit, no c- spine tenderness, neck with full ROM. CHEST: Symmetric, no tenderness at palpation LUNGS: Clear to auscultation bilaterally. No wheezing or crackles. CVS: Regular rate and rhythm, S1 and S2 present, no murmurs or gallops appreciated. ABDOMEN: Soft, non-tender. No signs of distention. No rebound no guarding, and no masses palpated. Bowel sounds are normal. EXTREMITIES: FROM in all major joints, no edema, no cyanosis or clubbing. NEURO: Alert and oriented x 3. No acute neurological deficits. Speech is normal and follows commands. SKIN: Dry and warm Triage Information Reviewed: Yes Vital Signs On Initial Exam: Initial Vitals Temp Pulse Resp BP Pulse Ox 98 F 88 22 150/106 88 05/19/18 23:51 05/19/18 23:51 05/19/18 23:51 05/19/18 23:51 05/19/18 23:51 Vital Signs Reviewed: Yes Diagnostics - Vital Signs Vital Signs Temp Pulse Resp BP Pulse Ox 05/20/18 01:03 16 05/20/18 01:00 86 99 05/20/18 00:50 86 237/160 99 05/19/18 23:51 98 F 88 22 150/106 88 - Laboratory Lab Statement: Any lab studies that have been ordered have been reviewed, and results considered in the medical decision making process. Abdominal Pain Fem Course/Dx - Course Course Of Treatment: A 67 y/o male with renal disease presents to ED c/o abdominal pain reaching 10/10 in severity. Patient has multiple visits to the ED because of chronic pain. Patient came in today for abdominal pain and bilateral leg pain. Patient was here yesterday for the same symptoms. Patient always want oxygen. No laboratory scans were done. In the ED course, the patient recieved Percocet. Patient will be discharged with chronic abdominal pain and anxiety. Patient is to follow up with PCP in 1-2 days. Pt is agreeable with this plan. - Diagnoses Provider Diagnoses: Anxiety, Chronic abdominal pain Discharge - Sign-Out/Discharge Documenting (check all that apply): Patient Departure - DISCHARGE - Discharge Plan Condition: Stable Disposition: HOME Patient Education Materials: Acute Abdominal Pain (ED), Anxiety (ED) Referrals: Marielena Vargas MD [Primary Care Provider] - 2 Days Additional Instructions: RETURN TO ED FOR ANY NEW OR WORSENING SYMPTOMS.
[2018-05-20 02:42] VITALS: BP 234/157
== END 2018-05-20 02:45 | disposition home or self-care (01) ==
LOC: ED 23:50
DX: R10.9 Unspecified abdominal pain (principal); G89.29 Other chronic pain; F41.9 Anxiety disorder, unspecified; M79.605 Pain in left leg; M79.604 Pain in right leg; Z99.2 Dependence on renal dialysis; Z87.891 Personal history of nicotine dependence; Z88.6 Allergy status to analgesic agent; Z88.5 Allergy status to narcotic agent
CPT/HCPCS: 99282; A9270-GY

== ENCOUNTER 2018-05-21 17:52 | Emergency (ER) | payer MEDICARE, MEDICAID ==
[2018-05-21] MEDS ORDERED: Ondansetron ODT TAB* 4 MG SL ONE (18:13)
[2018-05-21] MEDS ORDERED: Morphine VIAL* 10 MG/ML 1 ML VIAL IM ONE (18:13)
--- NOTE | 2018-05-21 18:20 | ED ---
HPI Chest Pain - HPI Summary HPI Summary: This is jacinto Martins documenting for attending Zain Ramirez MD. This patient is a 67 year old M presenting to [facility] with a chief complaint of CP since 90 minutes ago. The patient rates the pain 10/10 in severity. Patient reports lower back pain and edema, back spasms, and difficulty taking deep breaths. Pt was treated here for the same thing 2 days ago. Pt usually gets a shot of morphine for his pain. - History of Current Complaint Chief Complaint: EDBackInjuryPain Time Seen by Provider: 05/21/18 18:06 Hx Obtained From: Patient Onset/Duration: Started Hours Ago - 1.5 Timing: Constant Initial Severity: Severe Current Severity: Severe Pain Intensity: 10 Pain Scale Used: 0-10 Numeric Chest Pain Location: Diffuse Chest Pain Radiates: Yes Chest Pain Radiates To:: Back Character: Sharp/Stabbing - Additional Pertinent History Primary Care Physician: YARIEL - Allergy/Home Medications Allergies/Adverse Reactions: Allergies Allergy/AdvReac Type Severity Reaction Status Date / Time aspirin Allergy "Ever Verified 05/21/18 17:59 since i was a boy i was told not to take aspirin" hydromorphone AdvReac Pt states Verified 05/19/18 08:25 "he feels like a junky" PMH/Surg Hx/FS Hx/Imm Hx Endocrine/Hematology History: Reports: Hx Blood Transfusions, Hx Sickle Cell Disease - Was told had sickle cell at one point but denies, Hx Anemia Denies: Hx Anticoagulant Therapy, Hx Bone Marrow Disease, Hx Diabetes, Hx Thyroid Disease Cardiovascular History: Reports: Hx Angina, Hx Auto Implanted Cardiovert Defib, Hx Congestive Heart Failure, Hx Coronary Artery Disease, Hx Deep Vein Thrombosis , Hx Hypertension, Hx Pacemaker/ICD, Hx Peripheral Vascular Disease, Hx Syncope , Other Cardiovascular Problems/Disorders - cardiomegaly, mitral valve and tricuspid valve repair Denies: Hx Cardiomegaly, Hx Hypercholesterolemia, Hx Myocardial Infarction, Hx Rheumatic Fever, Hx Valvular Heart Disease Respiratory History: Reports: Hx Asthma, Hx Chronic Obstructive Pulmonary Disease (COPD), Hx Pleural Effusion, Hx Pneumonia, Other Respiratory Problems/ Disorders Denies: Hx Pulmonary Edema, Hx Pulmonary Embolism, Hx Sleep Apnea GI History: Reports: Hx Cirrhosis, Hx Gastroesophageal Reflux Disease, Hx Ulcer - peptic ulcer, Other GI Disorders - hep C Denies: Hx Crohn's Disease, Hx Hiatal Hernia, Hx Irritable Bowel, Hx Jaundice History: Reports: Hx Acute Renal Failure, Hx Chronic Renal Failure, Hx Dialysis, Hx Renal Disease, Other Problems/Disorders - end stage renal disease, on dialysis Denies: Hx Kidney Infection, Hx Kidney Stones Musculoskeletal History: Reports: Hx Arthritis, Hx Back Problems - chronic pain , Hx Orthopedic Injury Denies: Hx Rheumatoid Arthritis, Hx Bursitis, Hx Tendonitis, Other Musculoskeletal History Sensory History: Reports: Hx Contacts or Glasses - did not bring however, Hx Glaucoma, Hx Vision Problem Denies: Hx Cataracts, Hx Hearing Aid Opthamlomology History: Reports: Hx Contacts or Glasses - did not bring however , Hx Glaucoma, Hx Vision Problem Denies: Hx Cataracts Neurological History: Reports: Hx Headaches, Hx Migraine, Other Neuro Impairments/Disorders - depression Denies: Hx Dementia, Hx Seizures Psychiatric History: Reports: Hx Anxiety, Hx Depression, Hx Substance Abuse - ETOH Denies: Hx Eating Disorder, Hx Panic Disorder, Hx Suicide Attempt, Hx of Violent Episodes Against Others - Cancer History Hx Chemotherapy: No Hx Radiation Therapy: No Hx Palliative Cancer Treatment: No - Surgical History Surgery Procedure, Year, and Place: HERNIA REPAIR 2012. APPENDECTOMY 2000. LEFT ARM AV FISTULA/CAD - REMOVED. CABG 1 vessel, mitral & tricuspid valve repair March 02, 2014 AT [facility] CONDITIONAL 5 UPTO 3T. POWER PORT. Mitral and tricuspid valve repair Hx Anesthesia Reactions: No - Immunization History Date of Tetanus Vaccine: 2014 Date of Influenza Vaccine: Fall 2015 Infectious Disease History: No Infectious Disease History: Reports: Hx Hepatitis - Hep C, Hx of Known/ Suspected MRSA, History Other Infectious Disease - Hepatitis C Denies: Hx Clostridium Difficile, Hx Human Immunodeficiency Virus (HIV), Hx Shingles, Hx Tuberculosis, Hx Known/Suspected VRE, Hx Known/Suspected VRSA, Traveled Outside the [place] in Last 30 Days - Family History Known Family History: Positive: Cardiac Disease, Hypertension, Other - CVA Family History: R & N/C - Social History Alcohol Use: None Alcohol Amount: former EtOH abuse Hx Substance Use: Yes Substance Use Type: Reports: Marijuana, Prescribed Substance Use Comment - Amount & Last Used: for pain Hx Tobacco Use: Yes Smoking Status (MU): Former Smoker Type: Cigarettes Amount Used/How Often: 1/2 ppd Length of Time of Smoking/Using Tobacco: 10 years Have You Smoked in the Last Year: No Review of Systems Positive: Chest Pain Positive: Shortness Of Breath Positive: Edema - low back, Other - lower back pain All Other Systems Reviewed And Are Negative: Yes Physical Exam - Summary Physical Exam Summary: Appearance: Well-appearing, Well-nourished, lying in bed comfortably Skin: Warm, dry, no obvious rash Eyes: sclera anicteric, no conjunctival pallor ENT: mucous membranes moist, pharynx appears normal Neck: Supple, nontender Respiratory: Clear to auscultation, no signs of respiratory distress Cardiovascular: Normal S1, S2. No murmurs. Normal distal pulses in tibial and radial bilaterally. Abdomen: Soft, normal active bowel sounds present. Tenderness in the lower abd. Musculoskeletal: Strength/ROM Intact. Tenderness in the anterior chest wall. Neurological: A&Ox3, awake and alert, mentation is normal, speech is fluent and appropriate Psychiatric: affect is normal, does not appear anxious or depressed Triage Information Reviewed: Yes Vital Signs On Initial Exam: Initial Vitals Temp Pulse Resp BP Pulse Ox 98.2 F 97 18 161/138 95 05/21/18 17:54 05/21/18 17:54 05/21/18 17:54 05/21/18 17:54 05/21/18 17:54 Vital Signs Reviewed: Yes Diagnostics - Vital Signs Vital Signs Temp Pulse Resp BP Pulse Ox 05/21/18 17:54 98.2 F 97 18 161/138 95 - Laboratory Lab Statement: Any lab studies that have been ordered have been reviewed, and results considered in the medical decision making process. - EKG 18:02 Cardiac Rate: NL EKG Rhythm: Sinus Rhythm - 83 bpm EKG Interpretation: P waves, QRS complex, and T waves WNL. Int nml. No ischemic changes. Chest Pain Course/Dx - Diagnoses Provider Diagnoses: Chronic back pain, Chest wall pain Discharge - Sign-Out/Discharge Documenting (check all that apply): Patient Departure - Discharge Plan Condition: Good Disposition: HOME Patient Education Materials: Chronic Back Pain (ED), Chest Wall Pain (ED) Referrals: Marielena Vargas MD [Primary Care Provider] - - Billing Disposition and Condition Condition: GOOD Disposition: Home
[2018-05-21 19:19] VITALS: BP 224/148
== END 2018-05-21 19:20 | disposition home or self-care (01) ==
LOC: ED 17:52
DX: R07.89 Other chest pain (principal); M54.5 Low back pain; I45.2 Bifascicular block; N18.6 End stage renal disease; Z99.2 Dependence on renal dialysis; Z95.1 Presence of aortocoronary bypass graft; Z88.6 Allergy status to analgesic agent; Z88.5 Allergy status to narcotic agent; Z82.49 Family history of ischemic heart disease and other diseases of the circulatory system; Z87.891 Personal history of nicotine dependence
CPT/HCPCS: 93005; 96372; 99283; A9270-GY; J2270

== ENCOUNTER 2018-05-23 03:25 | Emergency (ER) | payer MEDICARE, MEDICAID ==
[2018-05-23] MEDS ORDERED: Labetalol IV* 5 MG/ML 20 ML VIAL IV PUSH ONE ×2 (03:56→04:38)
[2018-05-23] MEDS ORDERED: Morphine INJ* 2 MG/ML 1 ML SYRINGE (TWO MG - NEW SYRINGE VERSION) IV ONE ×2 (03:57→04:54)
[2018-05-23] MEDS ORDERED: Metoclopramide IV* 5 MG/ML 2 ML VIAL IV SLOW PU ONE (03:57)
[2018-05-23] MEDS ORDERED: LORazepam INJ* 2 MG/ML 1 ML VIAL IV PUSH ONE (03:58)
--- NOTE | 2018-05-23 04:09 | ED ---
HPI Chest Pain - HPI Summary HPI Summary: This is jacinto Haider documenting for Dr. Yuly Ponce. Pt is 67 y/o M who presents to ED c/o chest pain that began 1.5 hours ago. Rates his pain intensity as 10/10 in severity. Says hes been feeling bad all weekend. Last dialysis was yesterday. Pt has had multiple visits to ED for same complaint before. - History of Current Complaint Chief Complaint: EDChestPainROMI Time Seen by Provider: 05/23/18 03:29 Hx Obtained From: Patient Onset/Duration: Started Hours Ago Current Severity: Severe Pain Intensity: 10 Pain Scale Used: 0-10 Numeric Alleviating Factor(s): Nothing - Additional Pertinent History Primary Care Physician: YARIEL - Allergy/Home Medications Allergies/Adverse Reactions: Allergies Allergy/AdvReac Type Severity Reaction Status Date / Time aspirin Allergy "Ever Verified 05/21/18 17:59 since i was a boy i was told not to take aspirin" hydromorphone AdvReac Pt states Verified 05/19/18 08:25 "he feels like a junky" PMH/Surg Hx/FS Hx/Imm Hx Endocrine/Hematology History: Reports: Hx Blood Transfusions, Hx Sickle Cell Disease - Was told had sickle cell at one point but denies, Hx Anemia Denies: Hx Anticoagulant Therapy, Hx Bone Marrow Disease, Hx Diabetes, Hx Thyroid Disease Cardiovascular History: Reports: Hx Angina, Hx Auto Implanted Cardiovert Defib, Hx Congestive Heart Failure, Hx Coronary Artery Disease, Hx Deep Vein Thrombosis , Hx Hypertension, Hx Pacemaker/ICD, Hx Peripheral Vascular Disease, Hx Syncope , Other Cardiovascular Problems/Disorders - cardiomegaly, mitral valve and tricuspid valve repair Denies: Hx Cardiomegaly, Hx Hypercholesterolemia, Hx Myocardial Infarction, Hx Rheumatic Fever, Hx Valvular Heart Disease Respiratory History: Reports: Hx Asthma, Hx Chronic Obstructive Pulmonary Disease (COPD), Hx Pleural Effusion, Hx Pneumonia, Other Respiratory Problems/ Disorders Denies: Hx Pulmonary Edema, Hx Pulmonary Embolism, Hx Sleep Apnea GI History: Reports: Hx Cirrhosis, Hx Gastroesophageal Reflux Disease, Hx Ulcer - peptic ulcer, Other GI Disorders - hep C Denies: Hx Crohn's Disease, Hx Hiatal Hernia, Hx Irritable Bowel, Hx Jaundice History: Reports: Hx Acute Renal Failure, Hx Chronic Renal Failure, Hx Dialysis, Hx Renal Disease, Other Problems/Disorders - end stage renal disease, on dialysis Denies: Hx Kidney Infection, Hx Kidney Stones Musculoskeletal History: Reports: Hx Arthritis, Hx Back Problems - chronic pain , Hx Orthopedic Injury Denies: Hx Rheumatoid Arthritis, Hx Bursitis, Hx Tendonitis, Other Musculoskeletal History Sensory History: Reports: Hx Contacts or Glasses - did not bring however, Hx Glaucoma, Hx Vision Problem Denies: Hx Cataracts, Hx Hearing Aid Opthamlomology History: Reports: Hx Contacts or Glasses - did not bring however , Hx Glaucoma, Hx Vision Problem Denies: Hx Cataracts Neurological History: Reports: Hx Headaches, Hx Migraine, Other Neuro Impairments/Disorders - depression Denies: Hx Dementia, Hx Seizures Psychiatric History: Reports: Hx Anxiety, Hx Depression, Hx Substance Abuse - ETOH Denies: Hx Eating Disorder, Hx Panic Disorder, Hx Suicide Attempt, Hx of Violent Episodes Against Others - Cancer History Hx Chemotherapy: No Hx Radiation Therapy: No Hx Palliative Cancer Treatment: No - Surgical History Surgery Procedure, Year, and Place: HERNIA REPAIR 2012. APPENDECTOMY 2000. LEFT ARM AV FISTULA/CAD - REMOVED. CABG 1 vessel, mitral & tricuspid valve repair March 02, 2014 AT [facility] CONDITIONAL 5 UPTO 3T. POWER PORT. Mitral and tricuspid valve repair Hx Anesthesia Reactions: No - Immunization History Date of Tetanus Vaccine: 2014 Date of Influenza Vaccine: Fall 2015 Infectious Disease History: No Infectious Disease History: Reports: Hx Hepatitis - Hep C, Hx of Known/ Suspected MRSA, History Other Infectious Disease - Hepatitis C Denies: Hx Clostridium Difficile, Hx Human Immunodeficiency Virus (HIV), Hx Shingles, Hx Tuberculosis, Hx Known/Suspected VRE, Hx Known/Suspected VRSA, Traveled Outside the in Last 30 Days - Family History Known Family History: Positive: Cardiac Disease, Hypertension, Other - CVA Family History: R & N/C - Social History Alcohol Use: None Alcohol Amount: former EtOH abuse Hx Substance Use: Yes Substance Use Type: Reports: Marijuana, Prescribed Substance Use Comment - Amount & Last Used: for pain Hx Tobacco Use: Yes Smoking Status (MU): Former Smoker Type: Cigarettes Amount Used/How Often: 1/2 ppd Length of Time of Smoking/Using Tobacco: 10 years Have You Smoked in the Last Year: No Review of Systems Positive: Chest Pain All Other Systems Reviewed And Are Negative: Yes Physical Exam - Summary Physical Exam Summary: VITAL SIGNS: Reviewed. GENERAL: Patient is a well-developed and nourished male who is lying comfortable in the stretcher. Patient is not in any acute respiratory distress. HEAD AND FACE: No signs of trauma. No ecchymosis, hematomas or skull depressions. No sinus tenderness. EYES: PERRLA, EOMI x 2, No injected conjunctiva, no nystagmus. EARS: Hearing grossly intact. Ear canals and tympanic membranes are within normal limits. MOUTH: Oropharynx within normal limits. NECK: Supple, trachea is midline, no adenopathy, no JVD, no carotid bruit, no c- spine tenderness, neck with full ROM. CHEST: Dialysis catheter in left upper chest. Systolic murmur 2 over 6 over base of heart. Symmetric, no tenderness at palpation LUNGS: Clear to auscultation bilaterally. No wheezing or crackles. CVS: Regular rate and rhythm, S1 and S2 present, no murmurs or gallops appreciated. ABDOMEN: Soft, non-tender. No signs of distention. No rebound no guarding, and no masses palpated. Bowel sounds are normal. EXTREMITIES: FROM in all major joints, no edema, no cyanosis or clubbing. NEURO: Alert and oriented x 3. No acute neurological deficits. Speech is normal and follows commands. SKIN: Dry and warm Triage Information Reviewed: Yes Vital Signs On Initial Exam: Initial Vitals Resp 8 05/23/18 03:31 Vital Signs Reviewed: Yes Diagnostics - Vital Signs Vital Signs Temp Pulse Resp BP Pulse Ox 05/23/18 03:35 98.4 F 74 20 196/137 100 05/23/18 03:34 74 16 196/137 100 05/23/18 03:31 8 - Laboratory Result Diagrams: 05/23/18 04:00 05/23/18 04:00 Lab Statement: Any lab studies that have been ordered have been reviewed, and results considered in the medical decision making process. - EKG 03:27 Cardiac Rate: NL - 72 bpm EKG Rhythm: Sinus Rhythm EKG Interpretation: Non-specific ST changes Re-Evaluation - Re-Evaluation First Eval Re-Evaluation Time: 05:00 Change: Improved - Pt is sleeping comfortably and BP is down. Chest Pain Course/Dx - Course Course Of Treatment: Pt is 67 y/o M who presents to ED c/o chest pain that began 1.5 hours ago. Rates his pain intensity as 10/10 in severity. Has had multiple visits to ED for same complaint before. Physical exam reveals dialysis catheter in left upper chest and systolic murmur 2 over 6 over base of heart. EKG taken at 03:27 shows normal sinus rhythm at 72 bpm with non-specific ST changes. Mildly elevated troponin is attributed to his kidney function. In the ED course pt is given Trandate, Ativan, Reglan, and morphine. Pt is diagnosed with atypical chest pain and anxiety. He is discharged home and pt is agreeable with this plan. - Diagnoses Provider Diagnoses: Atypical chest pain, Anxiety Discharge - Sign-Out/Discharge Documenting (check all that apply): Patient Departure - Discharge - Discharge Plan Condition: Stable Disposition: HOME Patient Education Materials: Chest Pain (ED), Anxiety (ED) Referrals: Marielena Vargas MD [Primary Care Provider] - 2 Days Additional Instructions: RETURN TO ED FOR ANY NEW OR WORSENING SYMPTOMS.
[2018-05-23] MEDS ORDERED: Morphine INJ* 2 MG/ML 1 ML SYRINGE (TWO MG - NEW SYRINGE VERSION) ONE (04:13)
[2018-05-23 04:16] LABS: ABS Basophils 0 10^3/ul (0-0.2); ABS Eosinophils 0.1 10^3/ul (0-0.6); ABS Lymphocytes 0.7 10^3/ul (1.0-4.8); ABS Monocytes 0.6 10^3/ul (0-0.8); ABS Neutrophils 1.7 10^3/ul (1.5-7.7); ABS Nucleated RBC 0 10^3/ul; Eosinophil % 2.6 % (0-6); Hematocrit 35 % (42-52); Hemoglobin 11.2 g/dl (14.0-18.0); Lymphocyte % 22.5 % (25-47); Mean Corpuscular HGB Conc 32 g/dl (31-36); Mean Corpuscular Hemoglobin 29 pg (27-31); Mean Corpuscular Volume 89 fL (80-94); Mean Platelet Volume 9.2 um3 (7.4-10.4); Nucleated Red Blood Cells % 0; Platelet Count 102 10^3/ul (150-450); Red Blood Count 3.88 10^6/ul (4.00-5.40); Red Cell Distribution Width 17 % (10.5-15); White Blood Count 3.1 10^3/ul (3.5-10.8)
[2018-05-23 04:18] LABS: INR 2.33 (0.77-1.02)
[2018-05-23 04:27] LABS: EGFR Non-African American 5.4 (>60)
[2018-05-23] MEDS ORDERED: Morphine VIAL* 10 MG/ML 1 ML VIAL ONE (04:59)
[2018-05-23 08:50] VITALS: BP 202/142
== END 2018-05-23 08:49 | disposition home or self-care (01) ==
LOC: ED 03:25
DX: R07.89 Other chest pain (principal); F41.9 Anxiety disorder, unspecified; R07.9 Chest pain, unspecified; Z87.891 Personal history of nicotine dependence
CPT/HCPCS: 36415; 80053; 83735; 84484; 85025; 85610; 85730; 93005; 96374; 96375; 99284; J2060; J2270; J2765

== ENCOUNTER 2018-05-26 09:36 | Emergency (ER) | payer MEDICARE, MEDICAID ==
[2018-05-26] MEDS ORDERED: Labetalol IV* 5 MG/ML 20 ML VIAL IV PUSH PRN ×2 (10:20→12:31)
[2018-05-26] MEDS ORDERED: Morphine VIAL* 10 MG/ML 1 ML VIAL IM ONE (10:31)
[2018-05-26] MEDS ORDERED: Nitroglycerin TAB 0.4 MG* 0.4 MG TAB SL ONE ×2 (10:31→11:28)
--- NOTE | 2018-05-26 10:31 | RAD ---
INDICATION: Chest pain COMPARISON: Chest x-ray dated April 26, 2018 TECHNIQUE: Single AP portable view of the chest was obtained. FINDINGS: Image quality is compromised due to the relative inferiority of a portable chest x-ray. Postsurgical changes include a single lead cardiac pacemaker overlying the left upper chest, a left internal jugular vein hemodialysis catheter with the distal tip terminating at the SVC and sternotomy wires. There is a mild degree of cardiomegaly. The pulmonary vasculature is engorged and indistinct. There is density obscuring the bilateral lung bases and causing bilateral costophrenic angle blunting. Visualized bones are normal for the patient's age. IMPRESSION: Chest x-ray findings are most consistent with cardiogenic pulmonary edema with likely bibasilar pleural effusions. The degree of aeration is slightly improved when compared to the April 26, 2018 chest x-ray.
[2018-05-26] MEDS: Ondansetron ODT TAB* 4 MG SL ONE ×2 (10:43→10:44)
--- NOTE | 2018-05-26 11:07 | ED ---
HPI Chest Pain - HPI Summary HPI Summary: Patient is a 67-year-old male with a PMH of ESRD on HD M.W.F., HTN, HLD, Hep C presents to ER via EMS from HD center where he had a full 3.5hrs of HD with a total of 0.9l removed for c/c of CP and elevated BP. He states this happens frequently. He is a frequent visitor to the ED with last visit 3 days ago for same. He states he consistently has midsternal chest pain, worse during dialysis. On arrival he is requesting morphine. He states he has not taken his medications today as he was still in dialysis when the chest pain began. He is denying any abdominal pain or back pain. Pain is currently rated a 10/10 , constant and aching. He states this is similar to his previous episodes of chest pain which are normally relieved with some nitroglycerin and morphine. He states his BP medications do not change the amount of chest pain he has. He denies any recent illness, fevers, sweats, chills. - History of Current Complaint Chief Complaint: EDChestWallPain Time Seen by Provider: 05/26/18 10:01 Hx Obtained From: Patient Onset/Duration: Started Minutes Ago Timing: Constant Initial Severity: Severe Current Severity: Severe Pain Intensity: 6 Pain Scale Used: 0-10 Numeric Chest Pain Location: Mid Sternal Chest Pain Radiates: No Character: Dull/Aching Aggravating Factor(s): Nothing Alleviating Factor(s): Nothing Associated Signs and Symptoms: Positive: Chest Pain. Negative: Vision Changes, Recent Stress, Headaches, Numbness, Lightheadedness, Palpitations, Calf Pain/ Swelling - Risk Factors Pulmonary Embolism Risk Factors: Recent Bedrest TAD Risk Factors: Smoking, Hypertension, Family Hx AMI/ACS Risk Factors: Myocardial Infarction, Sedentary Lifestyle, Diabetes, Family History, Nitroglycerine Use, Hypertension, Smoking, Dyslipidemia - Additional Pertinent History Primary Care Physician: YARIEL - Allergy/Home Medications Allergies/Adverse Reactions: Allergies Allergy/AdvReac Type Severity Reaction Status Date / Time aspirin Allergy "Ever Verified 05/23/18 08:26 since i was a boy i was told not to take aspirin" hydromorphone AdvReac Pt states Verified 05/23/18 08:26 "he feels like a junky" Home Medications: Home Medications Cyclobenzaprine TAB* [Flexeril 10 MG TAB*] 5 mg PO TID PRN 05/26/18 [History Confirmed 05/26/18] Docusate CAP* [Colace Cap*] 100 mg PO BID 05/26/18 [History Confirmed 05/26/18] Escitalopram (NF) [Lexapro 10 mg (NF)] 10 mg PO DAILY 05/26/18 [History Confirmed 05/26/18] Furosemide TAB* [Lasix TAB*] 20 mg PO QAM 05/26/18 [History Confirmed 05/26/18] Gabapentin CAP(*) [Neurontin 300 CAP(*)] 300 mg PO TID 05/26/18 [History Confirmed 05/26/18] amLODIPine TAB* [Norvasc 5 mg TAB*] 10 mg PO DAILY 05/26/18 [History Confirmed 05/26/18] PMH/Surg Hx/FS Hx/Imm Hx Previously Healthy: No Endocrine/Hematology History: Reports: Hx Blood Transfusions, Hx Sickle Cell Disease - Was told had sickle cell at one point but denies, Hx Anemia Denies: Hx Anticoagulant Therapy, Hx Bone Marrow Disease, Hx Diabetes, Hx Thyroid Disease Cardiovascular History: Reports: Hx Angina, Hx Auto Implanted Cardiovert Defib, Hx Congestive Heart Failure, Hx Coronary Artery Disease, Hx Deep Vein Thrombosis , Hx Hypertension, Hx Pacemaker/ICD, Hx Peripheral Vascular Disease, Hx Syncope , Other Cardiovascular Problems/Disorders - cardiomegaly, mitral valve and tricuspid valve repair Denies: Hx Cardiomegaly, Hx Hypercholesterolemia, Hx Myocardial Infarction, Hx Rheumatic Fever, Hx Valvular Heart Disease Respiratory History: Reports: Hx Asthma, Hx Chronic Obstructive Pulmonary Disease (COPD), Hx Pleural Effusion, Hx Pneumonia, Other Respiratory Problems/ Disorders Denies: Hx Pulmonary Edema, Hx Pulmonary Embolism, Hx Sleep Apnea GI History: Reports: Hx Cirrhosis, Hx Gastroesophageal Reflux Disease, Hx Ulcer - peptic ulcer, Other GI Disorders - hep C Denies: Hx Crohn's Disease, Hx Hiatal Hernia, Hx Irritable Bowel, Hx Jaundice History: Reports: Hx Acute Renal Failure, Hx Chronic Renal Failure, Hx Dialysis, Hx Renal Disease, Other Problems/Disorders - end stage renal disease, on dialysis Denies: Hx Kidney Infection, Hx Kidney Stones Musculoskeletal History: Reports: Hx Arthritis, Hx Back Problems - chronic pain , Hx Orthopedic Injury Denies: Hx Rheumatoid Arthritis, Hx Bursitis, Hx Tendonitis, Other Musculoskeletal History Sensory History: Reports: Hx Contacts or Glasses - did not bring however, Hx Glaucoma, Hx Vision Problem Denies: Hx Cataracts, Hx Hearing Aid Opthamlomology History: Reports: Hx Contacts or Glasses - did not bring however , Hx Glaucoma, Hx Vision Problem Denies: Hx Cataracts Neurological History: Reports: Hx Headaches, Hx Migraine, Other Neuro Impairments/Disorders - depression Denies: Hx Dementia, Hx Seizures Psychiatric History: Reports: Hx Anxiety, Hx Depression, Hx Substance Abuse - ETOH Denies: Hx Eating Disorder, Hx Panic Disorder, Hx Suicide Attempt, Hx of Violent Episodes Against Others - Cancer History Hx Chemotherapy: No Hx Radiation Therapy: No Hx Palliative Cancer Treatment: No - Surgical History Surgery Procedure, Year, and Place: HERNIA REPAIR 2012. APPENDECTOMY 2000. LEFT ARM AV FISTULA/CAD - REMOVED. CABG 1 vessel, mitral & tricuspid valve repair March 02, 2014 AT [facility] CONDITIONAL 5 UPTO 3T. POWER PORT. Mitral and tricuspid valve repair Hx Anesthesia Reactions: No - Immunization History Date of Tetanus Vaccine: 2014 Date of Influenza Vaccine: Fall 2015 Hx Pertussis Vaccination: No Immunizations Up to Date: Unable to Obtain/Confirm Infectious Disease History: No Infectious Disease History: Reports: Hx Hepatitis - Hep C, Hx of Known/ Suspected MRSA, History Other Infectious Disease - Hepatitis C Denies: Hx Clostridium Difficile, Hx Human Immunodeficiency Virus (HIV), Hx Shingles, Hx Tuberculosis, Hx Known/Suspected VRE, Hx Known/Suspected VRSA, Traveled Outside the in Last 30 Days - Family History Known Family History: Positive: Cardiac Disease, Hypertension, Other - CVA Family History: R & N/C - Social History Occupation: Unemployed Lives: Alone Alcohol Use: None Alcohol Amount: former EtOH abuse Hx Substance Use: Yes Substance Use Type: Reports: Marijuana, Prescribed Substance Use Comment - Amount & Last Used: for pain Hx Tobacco Use: Yes Smoking Status (MU): Former Smoker Type: Cigarettes Amount Used/How Often: 1/2 ppd Length of Time of Smoking/Using Tobacco: 10 years Have You Smoked in the Last Year: No Review of Systems Constitutional: Negative Negative: Fever, Chills, Fatigue, Skin Diaphoresis Negative: Photophobia, Blurred Vision, Diplopia, Drainage Positive: Chest Pain. Negative: Palpitations Negative: Shortness Of Breath, Cough Genitourinary: Negative Positive: no symptoms reported, see HPI Negative: Arthralgia, Myalgia Skin: Negative Negative: Headache, Weakness, Paresthesia, Numbness Negative: Anxious, Depressed All Other Systems Reviewed And Are Negative: Yes Physical Exam Triage Information Reviewed: Yes Vital Signs On Initial Exam: Initial Vitals Temp Pulse Resp BP Pulse Ox 97.6 F 79 19 231/147 96 05/26/18 09:54 05/26/18 09:54 05/26/18 09:54 05/26/18 09:54 05/26/18 09:54 Vital Signs Reviewed: Yes Appearance: Positive: Well-Appearing, Well-Nourished Skin: Positive: Warm, Skin Color Reflects Adequate Perfusion Head/Face: Positive: Normal Head/Face Inspection Eyes: Positive: EOMI, KINGS, Conjunctiva Clear Neck: Positive: Supple, No Lymphadenopathy Respiratory/Lung Sounds: Positive: Clear to Auscultation Cardiovascular: Positive: RRR. Negative: Leg Edema Left, Leg Edema Right Neurological: Positive: Sensory/Motor Intact, Speech Normal Psychiatric: Positive: Normal, Affect/Mood Appropriate AVPU Assessment: Alert Diagnostics - Vital Signs Vital Signs Temp Pulse Resp BP Pulse Ox 05/26/18 10:44 18 05/26/18 09:54 97.6 F 79 19 231/147 96 - Laboratory Result Diagrams: 05/26/18 11:05 05/26/18 11:06 Lab Statement: Any lab studies that have been ordered have been reviewed, and results considered in the medical decision making process. Chest Pain Course/Dx - Course Course Of Treatment: During the course of treatment, the patient is refusing labs on arrival. He is requesting morphine and nitroglycerin. He states this is his typical chest pain associated with dialysis. Nitroglycerin and morphine typically resolve his symptoms he states, however he did not have these with him at the time as he was at dialysis. Obtained 3.5 hours of HD. Patient originally refusing IV, and his at home blood pressure medications were given. BP decreases only slightly and remains at a hypertensive urgency level. He eventually agrees to an IV and labetalol 40 mg given. Total meds given in ED: Norvasc 10mg, lisinopril 10mg, 40mg IV labetolol, 2 nitros. BP dropped from 231 /147 to 206/134. Sxs improved with morphine and nitro. He will follow up closely with Dr. Ortez and continue dialysis. Pleural effusions bilaterally improved from [facility] admission. BNP 12795. Likely secondary to needing additional dialysis. Sxs improved so he will be discharged at this time. - Chest Pain Differential Diagnosis/HQI/PQRI: Acute AL, ACS, Angina, CHF, Chest Wall, Pulmonary Edema - Diagnoses Provider Diagnoses: Chest pain, Hypertension Discharge - Sign-Out/Discharge Documenting (check all that apply): Patient Departure - Discharge Plan Condition: Improved Disposition: HOME Referrals: Marielena Vargas MD [Primary Care Provider] - - Billing Disposition and Condition Condition: IMPROVED Disposition: Home
[2018-05-26] MEDS ORDERED: Lisinopril TAB* 10 MG PO ONE (11:27)
[2018-05-26] MEDS ORDERED: amLODIPine TAB* 5 MG PO ONE (11:27)
[2018-05-26 11:28] LABS: ABS Basophils 0 10^3/ul (0-0.2); ABS Eosinophils 0 10^3/ul (0-0.6); ABS Lymphocytes 0.5 10^3/ul (1.0-4.8); ABS Monocytes 0.7 10^3/ul (0-0.8); ABS Neutrophils 3.1 10^3/ul (1.5-7.7); ABS Nucleated RBC 0 10^3/ul; Eosinophil % 0.4 % (0-6); Hematocrit 38 % (42-52); Hemoglobin 12.3 g/dl (14.0-18.0); Lymphocyte % 11.3 % (25-47); Mean Corpuscular HGB Conc 33 g/dl (31-36); Mean Corpuscular Hemoglobin 29 pg (27-31); Mean Corpuscular Volume 89 fL (80-94); Mean Platelet Volume 8.5 um3 (7.4-10.4); Nucleated Red Blood Cells % 0.2; Platelet Count 116 10^3/ul (150-450); Red Blood Count 4.24 10^6/ul (4.00-5.40); Red Cell Distribution Width 17 % (10.5-15); White Blood Count 4.4 10^3/ul (3.5-10.8)
[2018-05-26 11:39] LABS: EGFR Non-African American 8.7 (>60)
[2018-05-26 15:29] VITALS: BP 199/142
== END 2018-05-26 15:28 | disposition home or self-care (01) ==
LOC: ED 09:36
DX: R07.9 Chest pain, unspecified (principal); I12.0 Hypertensive chronic kidney disease with stage 5 chronic kidney disease or end stage renal disease; N18.6 End stage renal disease; Z99.2 Dependence on renal dialysis; J90 Pleural effusion, not elsewhere classified; I51.7 Cardiomegaly; E78.5 Hyperlipidemia, unspecified; Z87.891 Personal history of nicotine dependence; Z95.0 Presence of cardiac pacemaker; Z88.6 Allergy status to analgesic agent; Z88.5 Allergy status to narcotic agent
CPT/HCPCS: 36415; 71045; 80053; 82550; 83605; 83880; 84484; 85025; 93005; 96372; 99283; A9270-GY; J2270

== ENCOUNTER 2018-05-28 08:12 | Observation (INO) | payer MEDICARE, MEDICAID ==
[2018-05-28] MEDS ORDERED: Labetalol IV* 5 MG/ML 20 ML VIAL IV PUSH ONE (08:20)
--- NOTE | 2018-05-28 08:34 | ED ---
HPI Chest Pain - HPI Summary HPI Summary: This is scribe eKnneth Montano documenting for attending Dr. Eric Gomez This patient is a 67 year old M presenting to [facility] with a chief complaint of 9/10 chest pain since yesterday, 05/27/2018. Pt was in dialysis this AM and his systolic blood pressure was observed to be in the 200s. Pt was given NTG with no alleviation of sx. He endorses the pressure is located in the center of his chest. Pt notes a medication patch on left shoulder blade for pains, but cannot endorse what medication it contains. He denies radiation and N/V, and endorses mild SOB. Pt endorses taking all BP meds this morning. I, Dr. Reyes personally performed the services described in this documentation as scribed in my presence and it is both accurate and complete. - History of Current Complaint Chief Complaint: EDChestPainROMI Time Seen by Provider: 05/28/18 08:20 Hx Obtained From: Patient Onset/Duration: Started Days Ago, Still Present, Worse Since - This AM Timing: Constant, Lasting Days Initial Severity: Moderate Current Severity: Severe Pain Intensity: 9 Pain Scale Used: 0-10 Numeric Chest Pain Location: Mid Sternal Chest Pain Radiates: No Character: Pressure/Squeezing Aggravating Factor(s): Nothing Alleviating Factor(s): Nothing Associated Signs and Symptoms: Positive: Chest Pain, Shortness of Breath. Negative: Nausea, Vomiting - Additional Pertinent History Primary Care Physician: YARIEL - Allergy/Home Medications Allergies/Adverse Reactions: Allergies Allergy/AdvReac Type Severity Reaction Status Date / Time aspirin Allergy "Ever Verified 05/23/18 08:26 since i was a boy i was told not to take aspirin" hydromorphone AdvReac Pt states Verified 05/23/18 08:26 "he feels like a junky" Home Medications: Home Medications Acetaminophen TAB* [Tylenol TAB*] 650 mg PO Q4H PRN 05/28/18 [History Confirmed 05/28/18] Albuterol HFA INHALER* [Ventolin HFA Inhaler*] 2 puff INH Q4H PRN 05/28/18 [ History Confirmed 05/28/18] Carvedilol TAB* [Coreg TAB*] 25 mg PO BID 05/28/18 [History Confirmed 05/28/18] Cinacalcet TAB* [Sensipar TAB*] 60 mg PO DAILY 05/28/18 [History Confirmed 05/28] Folic Acid/Vit B Complex and C [Nephro-Dameon Tablet] 1 mg PO DAILY 05/28/18 [ History Confirmed 05/28/18] Isosorbide Mononitrate ER TAB* [Imdur ER TAB*] 60 mg PO DAILY 05/28/18 [History Confirmed 05/28/18] Lubiprostone 24 MCG CAP (NF) [Amitiza (NF)] 24 mcg PO BID 05/28/18 [History Confirmed 05/28/18] Pancrelipase (NF) [Creon (NF)] 12,000 units PO TID WITH MEALS 05/28/18 [History Confirmed 05/28/18] Sodium Polystyrene ORAL.MIGUELITO* [Kayexalate ORAL.MIGUELITO*] 15 gm PO SEE INSTRUCTIONS PRN 05/28/18 [History Confirmed 05/28/18] Sucroferric Oxyhydroxide [Velphoro] 1,000 mg PO .WITH SNACKS 05/28/18 [History Confirmed 05/28/18] Sucroferric Oxyhydroxide [Velphoro] 1,000 mg PO TID WITH MEALS 05/28/18 [ History Confirmed 05/28/18] PMH/Surg Hx/FS Hx/Imm Hx Endocrine/Hematology History: Reports: Hx Blood Transfusions, Hx Sickle Cell Disease - Was told had sickle cell at one point but denies, Hx Anemia Denies: Hx Anticoagulant Therapy, Hx Bone Marrow Disease, Hx Diabetes, Hx Thyroid Disease Cardiovascular History: Reports: Hx Angina, Hx Auto Implanted Cardiovert Defib, Hx Congestive Heart Failure, Hx Coronary Artery Disease, Hx Deep Vein Thrombosis , Hx Hypertension, Hx Pacemaker/ICD, Hx Peripheral Vascular Disease, Hx Syncope , Other Cardiovascular Problems/Disorders - cardiomegaly, mitral valve and tricuspid valve repair Denies: Hx Cardiomegaly, Hx Hypercholesterolemia, Hx Myocardial Infarction, Hx Rheumatic Fever, Hx Valvular Heart Disease Respiratory History: Reports: Hx Asthma, Hx Chronic Obstructive Pulmonary Disease (COPD), Hx Pleural Effusion, Hx Pneumonia, Other Respiratory Problems/ Disorders Denies: Hx Pulmonary Edema, Hx Pulmonary Embolism, Hx Sleep Apnea GI History: Reports: Hx Cirrhosis, Hx Gastroesophageal Reflux Disease, Hx Ulcer - peptic ulcer, Other GI Disorders - hep C Denies: Hx Crohn's Disease, Hx Hiatal Hernia, Hx Irritable Bowel, Hx Jaundice History: Reports: Hx Acute Renal Failure, Hx Chronic Renal Failure, Hx Dialysis, Hx Renal Disease, Other Problems/Disorders - end stage renal disease, on dialysis Denies: Hx Kidney Infection, Hx Kidney Stones Musculoskeletal History: Reports: Hx Arthritis, Hx Back Problems - chronic pain , Hx Orthopedic Injury Denies: Hx Rheumatoid Arthritis, Hx Bursitis, Hx Tendonitis, Other Musculoskeletal History Sensory History: Reports: Hx Contacts or Glasses - did not bring however, Hx Glaucoma, Hx Vision Problem Denies: Hx Cataracts, Hx Hearing Aid Opthamlomology History: Reports: Hx Contacts or Glasses - did not bring however , Hx Glaucoma, Hx Vision Problem Denies: Hx Cataracts Neurological History: Reports: Hx Headaches, Hx Migraine, Other Neuro Impairments/Disorders - depression Denies: Hx Dementia, Hx Seizures Psychiatric History: Reports: Hx Anxiety, Hx Depression, Hx Substance Abuse - ETOH Denies: Hx Eating Disorder, Hx Panic Disorder, Hx Suicide Attempt, Hx of Violent Episodes Against Others - Cancer History Hx Chemotherapy: No Hx Radiation Therapy: No Hx Palliative Cancer Treatment: No - Surgical History Surgery Procedure, Year, and Place: HERNIA REPAIR 2012. APPENDECTOMY 2000. LEFT ARM AV FISTULA/CAD - REMOVED. CABG 1 vessel, mitral & tricuspid valve repair March 02, 2014 AT [facility] CONDITIONAL 5 UPTO 3T. POWER PORT. Mitral and tricuspid valve repair Hx Anesthesia Reactions: No - Immunization History Date of Tetanus Vaccine: 2014 Date of Influenza Vaccine: Fall 2015 Infectious Disease History: No Infectious Disease History: Reports: Hx Hepatitis - Hep C, Hx of Known/ Suspected MRSA, History Other Infectious Disease - Hepatitis C Denies: Hx Clostridium Difficile, Hx Human Immunodeficiency Virus (HIV), Hx Shingles, Hx Tuberculosis, Hx Known/Suspected VRE, Hx Known/Suspected VRSA, Traveled Outside the [place] in Last 30 Days - Family History Known Family History: Positive: Cardiac Disease, Hypertension, Other - CVA Family History: R & N/C - Social History Alcohol Use: None Alcohol Amount: former EtOH abuse Hx Substance Use: Yes Substance Use Type: Reports: Marijuana, Prescribed Substance Use Comment - Amount & Last Used: for pain Hx Tobacco Use: Yes Smoking Status (MU): Former Smoker Type: Cigarettes Amount Used/How Often: 1/2 ppd Length of Time of Smoking/Using Tobacco: 10 years Have You Smoked in the Last Year: No Review of Systems Negative: Fever Positive: Chest Pain Positive: Shortness Of Breath Negative: Vomiting, Nausea Positive: no symptoms reported All Other Systems Reviewed And Are Negative: Yes Physical Exam - Summary Physical Exam Summary: VITAL SIGNS: Reviewed. GENERAL: Patient is a elderly male who is lying comfortable in the stretcher. Patient is not in any acute respiratory distress. HEAD AND FACE: No signs of trauma. No ecchymosis, hematomas or skull depressions. No sinus tenderness. EYES: PERRLA, EOMI x 2, No injected conjunctiva, no nystagmus. EARS: Hearing grossly intact. Ear canals and tympanic membranes are within normal limits. MOUTH: Oropharynx within normal limits. NECK: Supple, trachea is midline, no adenopathy, no JVD, no carotid bruit, no c- spine tenderness, neck with full ROM. CHEST: No tenderness at palpation. Port for dialysis in left side of chest. LUNGS: Clear to auscultation bilaterally. No wheezing or crackles. Decreased breath sounds bilaterally. CVS: Regular rate and rhythm, S1 and S2 present, no murmurs or gallops appreciated. ABDOMEN: Soft, non-tender. No signs of distention. No rebound no guarding, and no masses palpated. Bowel sounds are normal. EXTREMITIES: FROM in all major joints, no edema, no cyanosis or clubbing. NEURO: Alert and oriented x 3. No acute neurological deficits. Speech is normal and follows commands. SKIN: Dry and warm. Port for dialysis in left side of chest. Triage Information Reviewed: Yes Vital Signs On Initial Exam: Initial Vitals Temp Pulse Resp BP Pulse Ox 98.1 F 72 18 196/133 100 05/28/18 08:13 05/28/18 08:13 05/28/18 08:13 05/28/18 08:13 05/28/18 08:13 Vital Signs Reviewed: Yes Diagnostics - Vital Signs Vital Signs Temp Pulse Resp BP Pulse Ox 05/28/18 08:13 98.1 F 72 18 196/133 100 - Laboratory Result Diagrams: 05/30/18 07:16 05/30/18 07:16 Lab Statement: Any lab studies that have been ordered have been reviewed, and results considered in the medical decision making process. - Radiology CXR Xray Interpretation: No Acute Changes Radiology Interpretation Completed By: Radiologist - MODERATE VASCULAR CONGESTIVE CHANGES. FINDINGS ARE STABLE IN THE SHORT INTERVAL. - EKG 0912 Cardiac Rate: NL - 62 EKG Rhythm: Sinus Rhythm ST Segment: Normal Ectopy: None EKG Interpretation: T wave inversions in leads I, aVL, V5, and V6. Re-Evaluation - Re-Evaluation First Eval Re-Evaluation Time: 09:08 Change: Worse Comment: Per RN Dinora, pt blood pressure elevated to 218/145. Chest Pain Course/Dx - Course Assessment/Plan: This patient is a 67-year-old male very well known to the emergency department presents to the emergency room with chief complaint of having chest pain. He reports that he was not feeling well however the patient went to get his dialysis. He reports that in the middle of dialysis he developed chest pain. He reports that the chest pain similar as when he has chest pain. He was given nitroglycerin without any relief of symptoms therefore the patient was sent to the emergency department. Patient has a long past medical history significant for pancreatitis, end-stage renal disease on hemodialysis, coronary artery disease, PUD, hepatitis C, chronic anemia, V. tach , hypokalemia, cardiomyopathy, syncope, and chronic chest pain. He seems that every time he comes to the emergency department the patient is found to be very hypertensive. He reports that he takes his medications as indicated however, his blood pressure never control of the emergency department. With the patient is admitted to the hospital the blood pressure pain is controlled since the patient was given medications BIP. This makes me think that the patient is not compliant to his medications. Initially when he comes to the emergency department he reports that has chest pain and is not resolved by Nitroglycerin. However after he was given a couple doses of morphine or Percocet he reports the pain improves and he wants to immediately leave or he walks out or signs AMA. Today the blood pressure is 196/133 manually. Therefore the patient was placed in a desktop support technician, blood work was sent to the lab, IV access was obtained and the patient was given Labetalol IV. For the chest pain the patient was given nitroglycerin and he declined aspirin. Blood test results shows an slight chronic anemia, INR is 3.20, creatinine is 7.95, CPK 256, troponin 0.06, BNP 8357. Basically and most of the blood work is at his baseline however I believe that he can improve on this abnormal findings by finishing the hemodialysis. Also he would improve his blood pressure by taking his medications as indicated. I think he will also benefit of a meeting jillian pedroza specialtis involeved as markel as comp field case manager and visiting nurse and socially responsible investment adviser to formulate a plan . In addition, I believe that if the patient comes to the emergency room he should not be giving narcotics unless is absolutely is needed. I also believe that the patient would benefit FROM pain management evaluation. I discussed my physical exam, findings and test results with Dr. Brothers who accepted the patient for admission. I believe that the patient would benefit from a conference from all his a specialist, hospitalist, socially responsible investment adviser to improve his quality of life and also to decrease the risk of comorbidities and adherence to his medications. - Chest Pain Differential Diagnosis/HQI/PQRI: Acute CA, ACS, Angina, CHF, Chest Wall, GI Disease, Lower Respiratory Infection - Diagnoses Provider Diagnoses: Hypertensive urgency, Chest pain, CHF (congestive heart failure), ESRD (end stage renal disease) - Provider Notifications Discussed Care Of Patient With: Natalia Brothers Time Discussed With Above Provider: 12:06 Instructed by Provider To: Other - Accepts admission. - Critical Care Time Critical Care Time: 75-104 min Discharge - Sign-Out/Discharge Documenting (check all that apply): Patient Departure - admit - Discharge Plan Condition: Fair Disposition: ADMITTED TO [facility] - Billing Disposition and Condition Condition: FAIR Disposition: Admitted to [facility] Attestation Statement User Type: Provider - IDr. Reyes personally performed the services described in this documentation as scribed in my presence and it is both accurate and complete.
[2018-05-28 09:24] LABS: ABS Basophils 0.1 10^3/ul (0-0.2); ABS Eosinophils 0.1 10^3/ul (0-0.6); ABS Lymphocytes 0.4 10^3/ul (1.0-4.8); ABS Monocytes 0.6 10^3/ul (0-0.8); ABS Neutrophils 2.5 10^3/ul (1.5-7.7); ABS Nucleated RBC 0 10^3/ul; Eosinophil % 1.5 % (0-6); Hematocrit 39 % (42-52); Hemoglobin 12.7 g/dl (14.0-18.0); Lymphocyte % 11.9 % (25-47); Mean Corpuscular HGB Conc 32 g/dl (31-36); Mean Corpuscular Hemoglobin 29 pg (27-31); Mean Corpuscular Volume 89 fL (80-94); Mean Platelet Volume 9.1 um3 (7.4-10.4); Nucleated Red Blood Cells % 0; Platelet Count 112 10^3/ul (150-450); Red Cell Distribution Width 18 % (10.5-15); White Blood Count 3.7 10^3/ul (3.5-10.8)
[2018-05-28 10:56] LABS: EGFR Non-African American 7.7 (>60)
[2018-05-28] MEDS ORDERED: Cyclobenzaprine TAB* 10 MG PO PRN (11:40)
[2018-05-28] MEDS ORDERED: Ondansetron INJ* 2 MG/ML VIAL IV PRN (11:40)
[2018-05-28] MEDS ORDERED: Acetaminophen TAB* 325 MG PO PRN ×2 (11:40→11:43)
[2018-05-28] MEDS ORDERED: Albuterol 2.5 MG/3 ML NEB.SOL* (0.083%) INH PRN (11:43)
[2018-05-28] MEDS ORDERED: LORazepam TAB(*) 1 MG PO PRN (11:43)
[2018-05-28] MEDS ORDERED: Docusate CAP* 100 MG PO PRN (11:43)
[2018-05-28] MEDS ORDERED: Zolpidem TAB* 10 MG PO PRN (11:43)
[2018-05-28] MEDS ORDERED: oxyCODONE TAB* 5 MG TAB PO ONE (11:53)
[2018-05-28 12:03] LABS: INR 3.2 (0.77-1.02)
--- NOTE | 2018-05-28 12:08 | RAD ---
INDICATION: Chest pain COMPARISON: 2017 TECHNIQUE: An AP portable view obtained at 1150 hours is submitted. FINDINGS: Bones/Soft Tissues: There are no acute bony findings. There is sternotomy. There is a cardiac pacemaker/defibrillator. There is valvular surgery. Dual lumen left central venous catheter Cardiomediastinal: The cardiac silhouette is prominent with central and peripheral interstitial prominence consistent with vascular congestion. Lungs: There are mild alveolar changes consistent with alveolar edema. Pleura: Small moderate-sized bilateral pleural effusions, unchanged. Other: None IMPRESSION: MODERATE VASCULAR CONGESTIVE CHANGES. FINDINGS ARE STABLE IN THE SHORT INTERVAL.
[2018-05-28] MEDS: hydrALAZINE TAB* 25 MG PO SCH ×3 (14:05→20:17)
[2018-05-28] MEDS: amLODIPine TAB* 5 MG PO SCH (14:05)
[2018-05-28] MEDS: Lidocaine PATCH 5%* 1 PATCH TRANSDERM SCH (14:05)
[2018-05-28] MEDS: Isosorbide Mononitrate ER TAB* 60 MG PO SCH (14:06)
[2018-05-28] MEDS: Gabapentin CAP(*) 300 MG PO SCH ×3 (14:08→20:17)
[2018-05-28] MEDS: Lisinopril TAB* 10 MG PO SCH (14:08)
[2018-05-28] MEDS: Furosemide TAB* 20 MG PO SCH (14:09)
[2018-05-28] MEDS: Carvedilol TAB* 25 MG PO SCH ×2 (14:09→20:16)
[2018-05-28] MEDS: oxyCODONE TAB* 5 MG TAB PO PRN (14:11)
--- NOTE | 2018-05-28 14:40 | HP ---
CC: Dr. Vargas; Dr. Dalal; Dr. Navarro* HISTORY AND PHYSICAL: DATE OF ADMISSION: 05/28/2018. PRIMARY CARE PROVIDER: Marielena Vargas MD ATTENDING PHYSICIAN WHILE IN THE HOSPITAL: Natalia Martin MD* (report dictated by Rigoberto Rader NP). CHIEF COMPLAINT: 1. Chest pain. 2. Not feeling well. HISTORY OF PRESENTING ILLNESS: Mr. Templeton is a 67-year-old male patient with multiple medical problems well known to our hospitalist service from previous admission coming into the ER today again for the third time this week after dialysis with complaints of chest pain. He has been doing this for several weeks now after dialysis. His dialysis is usually stopped, he complaints of chest pain, sometimes he goes home, sometimes he comes in the ER requesting pain medications. He says that over the last couple of weeks, he has been feeling worse. He says he has been having some more dyspnea on exertion. He does admit to having again chest pain particularly worse after having dialysis. He says that he has been losing weight. He says that he is having epigastric discomfort. He denies having any fevers, but he does admit to having some chills in the morning. He denies any nausea, vomiting or diarrhea. He admits to sharp stabbing epigastric pain and chest discomfort that radiates into his back. He says that he had to quit dialysis an hour early today because the pain was too much to bear, so he decided to come in. He admits to smoking marijuana every other day almost. He also does admit to taking all of his medication he has been taking them faithfully. He says he typically takes oxycodone for his pain, which had typically helped his chronic chest pain. He says his appetite has been down and he says he just has not been feeling well, he is very vague in his symptomatology. When I asked him when he has chest pain he says he has it all the time. He says that he has just been feeling more dyspnea on exertion. He denies any orthopnea. Today, he has been having some swelling and he says he has been losing weight when I asked him if he has gained weight. He came in to the ED today it was noted which is typical for his blood pressure was not well controlled. His troponin was mildly elevated. We were asked to evaluate for admission. PAST MEDICAL HISTORY: Significant for: 1. End-stage renal disease, on hemodialysis. 2. Thrombus in his IJ and right upper extremity DVT. 3. CAD. 4. Cardiomyopathy, last EF 45 to 50%. 5. AFib. 6. PVD. 7. Hepatitis C. 8. GERD. 9. Depression. 10. Chronic pain. 11. Hypertension. 12. Hyperlipidemia. PAST SURGICAL HISTORY: He has had a CABG. He has had a mitral valve and tricuspid repairs. He has had appendectomy. He has had an ICD placement. MEDICATIONS: Home meds that was provided include; 1. Tylenol 650 mg p.o. every 4 hours as needed. 2. Velphoro 1000 mg p.o. t.i.d. with meals, 1000 mg p.o. with snacks. 3. Lasix 20 mg p.o. daily. 4. Colace 100 mg p.o. b.i.d. as needed. 5. Trazodone 100 mg p.o. daily. 6. Norvasc 10 mg daily. 7. Prilosec 40 mg p.o. b.i.d. 8. Nitro 0.4 mg sublingual q.5 minutes p.r.n. chest pain. 9. Nitro patch 1 patch transdermally daily. 10. Ibuprofen 600 mg p.o. t.i.d. as needed. 11. Ambien 10 mg at bedtime as needed. 12. Coumadin 5 mg daily. 13. Ativan 0.5 mg at bedtime as needed. 14. Zofran 4 mg every 6 hours as needed. 15. Imdur 60 mg p.o. daily. 16. Kayexalate 15 g p.o. take as directed. 17. Zocor 5 mg at bedtime. 18. Hydralazine 25 mg p.o. t.i.d. 19. Neurontin 300 mg p.o. t.i.d. 20. Zantac 150 mg p.o. daily. 21. Lexapro 10 mg p.o. daily. 22. Sensipar 60 mg daily. 23. Creon 12,000 units p.o. t.i.d. with meals 24. Oxycodone 50 mg every 6 hours as needed. 25. Nephro-Dameon 1 mg p.o. daily. 26. Carvedilol 25 mg p.o. b.i.d. 27. Amitiza 24 mcg p.o. b.i.d. 28. Lisinopril 10 mg daily. 29. Ventolin 2 puff inhaled every 4 hours as needed. ALLERGIES: ASPIRIN and DILAUDID. FAMILY HISTORY: Mother, he said had a brain tumor. He says his father of a broken heart after his mother about 6 months later. SOCIAL HISTORY: He does smoke marijuana every other day. He does not smoke cigarettes. He denies alcohol abuse. His surrogate decision maker is girlfriend, Vonnie. REVIEW OF SYSTEMS: There is no documented fever. He does admit to losing weight, but he does not quantify how much. He denies having any double vision. He denies having any ear discharge. He denies having any rhinorrhea. He denies having any sore throat. He did admit to having chest pain from my HPI. There is no orthopnea. There is no dyspnea on exertion. There is no nocturnal dyspnea. There is no abdominal pain. No nausea, no vomiting, no dysuria, no frequency. No seizure. No loss of consciousness. No pruritus. No skin ulcerations. Review of 14 systems completed and otherwise negative. PHYSICAL EXAMINATION GENERAL: At this time, Mr. Templeton is a 67-year-old male patient. He is chronically ill appearing. He is sitting in the ED stretcher. He does not appear to be in acute distress. VITAL SIGNS: Blood pressure 196/133, pulse 72, respirations 18, O2 sat 100%, temperature 98.1. HEENT: Head: Atraumatic. Normocephalic. Eyes: EOMs are intact. Sclerae anicteric, not pale. NECK: Supple. Throat: Oral mucosa appears to be moist. No oropharyngeal erythema. LUNGS: No wheezes, rales, or rhonchi. HEART: Sounds S1, S2. He had a regular rate and rhythm. No murmur, rubs or gallops. ABDOMEN: Soft. There was tenderness in the right upper quadrant. It was nondistended. Bowel sounds are present. EXTREMITIES: Pulses were 2+ throughout. He has 2+ pitting edema in the lower extremity. He had 5/5 strength. NEUROLOGICAL: He is awake, alert, and oriented x3. Tongue midline. Sustainability Director equal. No gross focal deficit. SKIN: Intact. DIAGNOSTIC STUDIES/LAB DATA: WBC of 3.7, RBC of 4.40, hemoglobin of 12.7, hematocrit of 39, and platelet count of 112. His PTT was 51.4. INR pending. Sodium 138, potassium is pending, chloride 91, bicarb 36, BUN 24, creatinine 7.15, glucose of 101, lactic 1.2, calcium 10.1, mag 2.5, total bili 1.0, ALT 21 , alk phos 66, CK 256, CK-MB 4.1, troponin 0.06, repeat troponin 0.06, BNP was 8357, albumin of 4.7, TSH is 6.78. He had an EKG obtained today, which does show a normal sinus rhythm, rate of 62. He had T-wave inversions in lead II and aVL along with V5 and V6. He had LVH when we looked at previous EKG, it appears to be similar. Chest x-ray is pending. Old medical records are reviewed. Last EF 45 to 50%. ASSESSMENT AND PLAN: Mr. Templeton is a complex 67-year-old male patient coming into the ED with complaints of chest, this is the third time this week. Looking back he has had since October 21 of this year he has had 27 visits to our facility with complaints of mostly chest pain. We were asked to evaluate for admission. He will be admitted under observation status for: 1. Chest pain. Again, I suspect this is probably exacerbation of his chronic pain. I do not believe he has had an acute myocardial infarction, his troponins are at his baseline. I will cycle that one more. We will follow him on telemetry. I will continue his oxycodone. I will not escalate his pain management at this point. 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 I am checking an echo to make sure there has not been any changes and we will continue to follow. He does not take aspirin. He is on a beta chris and statin already. 2. End-stage renal disease. Follow with Dr. Dalal. Potassium is pending. He had dialysis today. He will be due again on Thursday. 3. History of deep vein thrombosis. INR is pending. Continue warfarin. 4. Coronary artery disease. Continue statin, beta-chris therapy. He is allergic to ASPIRIN. 5. Cardiomyopathy. Repeating the echo, does not appear to be in failure. 6. Right upper quadrant pain. I did order ultrasound of the gallbladder. 7. Atrial fibrillation. Again, he is in sinus rhythm at this point. Continue with meds as prescribed. 8. Peripheral vascular disease, on statin therapy. Continue. 9. Hepatitis C. Follow up with PCP. 10. Hypertension. Again, not well controlled. This is the main reason why I am bringing him in today to get this better controlled, I am going to give him his meds right now that he did not take this morning and then if I need to, I will adjust medications or add p.r.n. 11. Gastroesophageal reflux disease. Continue PPI therapy. 12. Anemia. H and H stable. 13. Chronic pain. I will continue his oxycodone. 14. DVT prophylaxis, awaiting INR, but we will continue warfarin. 15. Code status. He is a full code. 16. Fluids, electrolytes, and nutrition: He can have a renal diet. TIME SPENT: On this admission was 60 minutes, greater than half the time was spent [id number] with the patient obtaining my history and physical, other half of the time was spent going over the plan of care with the patient and implementing the plan of care. I did discuss the plan of care with my attending, Dr. Martin. RIGOBERTO RADER, ALISSON [id number]/CPS #: [id number] STEPHANIE
[2018-05-28] MEDS: PTO:Pancrelipase (NF) 12,000 UNITS CAP.DR PO SCH ×2 (15:15→18:10)
[2018-05-28] MEDS: SUCROFERRIC OXYHYDROXIDE 500 MG PO SCH ×2 (15:15→18:10)
[2018-05-28] MEDS ORDERED: MinoXIDil TAB* 2.5 MG TAB PO ONE (15:32)
[2018-05-28] MEDS ORDERED: Enalaprilat IV* 1.25 MG/ML 1 ML VIAL (1.25 MG) IV ONE (15:33)
--- NOTE | 2018-05-28 16:14 | ECHO ---
Patient: MARILYN GRANADOS [facility] Rec#: [id number] : 1950 Date: 05/28/2018 Age: 67y Height: 170 cm / 66.9 in Weight: 74 kg / 163.1 lbs Sex: M BSA: 1.85 Room#: [facility] Admit Date#: 05/28/2018 Type: Inpatient Referring: Rigoberto Rader NP Reading: Brien Messer MD Stitcher Special Machine: Bety Fountain RDCS CC: Marielena Vargas MD Transthoracic Echocardiogram Indication: Dyspnea, chest pain. BP: 200/100 HR: 65 Rhythm: Paced Findings History: CAD s/p CABG, MV and TV repair, s/p pacer/AICD, HTN, PVD, anemia, former smoker, ETOH, ESRD, dialysis, Hepatitis C. Technical Comments: The study quality is good. Completed at 1430. Left Ventricle: The left ventricular chamber size is normal. Moderate concentric left ventricular hypertrophy is observed. There is global hypokinesis of the left ventricle with minor regional variation.More pronounced inferior and posterolateral hypokinesis. There is moderately decreased left ventricular systolic function. The estimated ejection fraction is 35-40%. There is septal flattening of the interventricular septum consistent with right ventricular volume or pressure overload. There is abnormal ventricular septal wall motion consistent with right ventricular pacemaker. The assessment of diastolic function is non-diagnostic. Left Atrium: The left atrium is severely dilated. Right Ventricle: The right ventricle wall thickness is mildly increased.6 mm The right ventricle is moderately dilated. The right ventricular global systolic function is moderately reduced. A pacemaker wire is visualized in the right ventricle. Right Atrium: The right atrial cavity size is severely dilated. A pacemaker wire is visualized in the right atrium. Aortic Valve: The aortic valve is trileaflet. The aortic valve leaflets are mildly thickened. There is moderate thickening of the non coronary cusp. Systolic excursion of the non coronary cusp is reduced. There is mild aortic regurgitation. There is mild aortic stenosis. Mitral Valve: There is moderate mitral regurgitation. The mitral regurgitant jet is eccentric.which begins centrally and deviates toward the interatrial septum as systole progresses. There is no evidence of mitral stenosis. Mitral valve repair functioning abnormally. Tricuspid Valve: There is moderate tricuspid regurgitation. The right ventricular systolic pressure is estimated at 59 mmHg. There is evidence of moderate pulmonary hypertension. There is no tricuspid stenosis. Tricuspid valve repair is functioning abnormally. Pulmonic Valve: The pulmonic valve appears normal. There is mild pulmonic regurgitation. There is no pulmonic stenosis. Pericardium: There is no significant pericardial effusion. Aorta: There is mild dilatation of the ascending aorta. There is no dilatation of the aortic arch. There is mild dilatation of the aortic root. Pulmonary Artery: The main pulmonary artery appears normal. Venous: The inferior vena cava is dilated. There is less than 50% respiratory change in the inferior vena cava dimension. Hepatic vein systolic flow is reversed. Conclusions Moderate concentric left ventricular hypertrophy is observed. There is global hypokinesis of the left ventricle with minor regional variation. More pronounced inferior and posterolateral hypokinesis. There is moderately decreased left ventricular systolic function. The estimated ejection fraction is 35-40%. There is septal flattening of the interventricular septum consistent with right ventricular volume or pressure overload. There is abnormal ventricular septal wall motion consistent with right ventricular pacemaker. The left atrium is severely dilated. The right ventricle is moderately dilated. The right ventricle wall thickness is mildly increased. The right ventricular global systolic function is moderately reduced. The right atrial cavity size is severely dilated. There is mild aortic stenosis by 2d. There is mild aortic regurgitation. There is moderate mitral regurgitation. The mitral regurgitant jet is eccentric which begins centrally and deviates toward the interatrial septum as systole progresses. Mitral valve repair functioning abnormally. There is possible moderate tricuspid regurgitation ( not well seen). Appearance of the valve c/w tricuspid repair. The right ventricular systolic pressure is estimated at 59 mmHg. There is evidence of moderate pulmonary hypertension. There is mild pulmonic regurgitation. There is mild dilatation of the ascending aorta. Decrease in EF from 45-50% in 12/2017 to 35-40% now. Measurements Name Value Normal Range RVIDd (AP) 2D 4.2 cm (0.9 - 2.6) RVDdMajor (2D) 6.2 cm (2.2 - 4.4) RAd ISD 4CH 6.7 cm (3.4 - 4.9) RA (A4C)W 6.2 cm (2.9 - 4.6) IVSd (2D) 1.7 cm (0.6 - 1) LVPWd (2D) 1.4 cm (0.6 - 1) LVIDd (2D) 4.8 cm (3.6 - 5.4) LVIDs (2D) 4 cm - LV FS (2D) 17 % (25 - 45) Aortic Annulus 2.1 cm (1.4 - 2.6) Ao root diameter (2D) 3.7 cm (2.1 - 3.5) Ascending Ao 3.8 cm (2.1 - 3.4) Aortic arch 2.9 cm (1.8 - 3.4) LA dimension (AP) 2D 5.1 cm (2.3 - 3.8) LAd ISD 4CH 7.1 cm (2.9 - 5.3) LA ISD 4CH W 4.8 cm (2.5 - 4.5) Name Value Normal Range LA ESV BP (A/L) index 48 ml/m2 - Name Value Normal Range MV E-wave Vmax 1.1 m/sec - MV deceleration time 187 msec - MV A-wave Vmax 0.6 m/sec - MV E:A ratio 1.8 ratio - LV septal e' Vmax 0.03 m/sec - LV lateral e' Vmax 0.05 m/sec - LV E:e' septal ratio 36.67 ratio - LV E:e' lateral ratio 22 ratio - Name Value Normal Range AV Vmax 1.1 m/sec - AV VTI 19.8 cm - AV peak gradient 5 mmHg - AV mean gradient 3 mmHg - LVOT diameter 2 cm - LVOT Vmax 0.8 m/sec - LVOT VTI 11.1 cm - LVOT peak gradient 2 mmHg - LVOT mean gradient 1 mmHg - PRADEEP Vmax 0.6 m/sec - Name Value Normal Range MR Vmax 5.6 m/sec - MR VTI 195 cm - MR flow (PISA) 59 ml/sec - MR ERO 0.11 cm2 - MR PISA radius 0.6 cm - MR alias Vmax 37.6 cm/sec - Name Value Normal Range TR Vmax 3.3 m/sec - TR peak gradient 44 mmHg - RAP 15 mmHg - RVSP 59 mmHg - IVC diameter 2.4 cm - Name Value Normal Range PV Vmax 0.8 m/sec - PV peak gradient 3 mmHg -
--- NOTE | 2018-05-28 16:18 | RAD ---
INDICATION: Epigastric pain COMPARISON: Gallbladder sonogram January 08, 2016 TECHNIQUE: Longitudinal and transverse scans of the right upper quadrant were obtained. Doppler interrogation of the hepatic and portal venous system was performed. FINDINGS: Liver: The liver is mildly enlarged. The echogenicity is normal. There are no focal masses. The liver measures 18.6 cm in cephalocaudal dimension. Vessels: There is normal hepatic and portal venous flow. Bile ducts: There is no evidence of intrahepatic or extrahepatic ductal dilatation. The common duct measures 0.6 cm. Gallbladder: The sonographic appearance of the gallbladder is normal. There is no evidence of cholelithiasis, significant thickening of the gallbladder wall, or pericholecystic fluid. Pancreas: The visualized pancreas appears normal Right kidney: The kidney is hyperechoic and is diminutive consistent with renal failure. There are multiple small cysts. The dominant cyst is in the upper pole and measures 1.3 cm. There is no evidence of hydronephrosis. The right kidney measures 9.2 x 2.8 x 3.9 cm. IVC and aorta: The aorta and superior vena cava appear normal. Fluid: There is no ascites. Other: There is a right-sided effusion. IMPRESSION: MILD HEPATOMEGALY. GROSSLY NORMAL GALLBLADDER. MEDICAL RENAL DISEASE. RIGHT-SIDED EFFUSION.
[2018-05-28] MEDS ORDERED: Warfarin TAB(*) 2 MG PO SCH (17:00)
[2018-05-28] MEDS: Lubiprostone 24 MCG CAP (NF) PO SCH (20:15)
[2018-05-28] MEDS: traZODone TAB* 100 MG PO SCH (20:16)
[2018-05-28] MEDS: CMCS:Simvastatin TAB(NF) 10 MG TAB PO SCH (20:19)
[2018-05-28] MEDS: Omeprazole CAP* 20 MG PO SCH (20:24)
[2018-05-28] MEDS: Lidocaine Patch REMOVE* 1 NOTE MISC SCH (20:24)
[2018-05-29] MEDS ORDERED: FOLIC ACID PO SCH (09:00)
[2018-05-29] MEDS ORDERED: VIT B COMPLEX AND C PO SCH (09:00)
[2018-05-29] MEDS: Vitamin B Complex TAB PO SCH (09:00)
[2018-05-29 09:04] LABS: ABS Basophils 0.1 10^3/ul (0-0.2); ABS Eosinophils 0.1 10^3/ul (0-0.6); ABS Lymphocytes 0.9 10^3/ul (1.0-4.8); ABS Monocytes 0.8 10^3/ul (0-0.8); ABS Neutrophils 2.7 10^3/ul (1.5-7.7); ABS Nucleated RBC 0 10^3/ul; Eosinophil % 1.5 % (0-6); Hematocrit 35 % (42-52); Hemoglobin 11.3 g/dl (14.0-18.0); Lymphocyte % 19.8 % (25-47); Mean Corpuscular HGB Conc 33 g/dl (31-36); Mean Corpuscular Hemoglobin 29 pg (27-31); Mean Corpuscular Volume 89 fL (80-94); Mean Platelet Volume 8.6 um3 (7.4-10.4); Nucleated Red Blood Cells % 0.2; Platelet Count 107 10^3/ul (150-450); Red Blood Count 3.87 10^6/ul (4.00-5.40); Red Cell Distribution Width 18 % (10.5-15); White Blood Count 4.5 10^3/ul (3.5-10.8)
[2018-05-29] MEDS: oxyCODONE TAB* 5 MG TAB PO PRN (09:06)
[2018-05-29] MEDS: Carvedilol TAB* 25 MG PO SCH (09:06)
[2018-05-29] MEDS: Cinacalcet TAB* 30 MG PO SCH (09:07)
[2018-05-29] MEDS: Omeprazole CAP* 20 MG PO SCH (09:07)
[2018-05-29] MEDS: Folic Acid TAB* 1 MG PO SCH (09:07)
[2018-05-29] MEDS: Gabapentin CAP(*) 300 MG PO SCH ×2 (09:07→14:48)
[2018-05-29] MEDS: Furosemide TAB* 20 MG PO SCH (09:07)
[2018-05-29] MEDS: Famotidine TAB* 20 MG PO SCH (09:07)
[2018-05-29] MEDS: Lubiprostone 24 MCG CAP (NF) PO SCH (09:08)
[2018-05-29] MEDS: Nitroglycerin 0.2 MG/HR PATCH* (5 MG) TRANSDERM SCH (09:08)
[2018-05-29] MEDS: amLODIPine TAB* 5 MG PO SCH (09:08)
[2018-05-29] MEDS: SUCROFERRIC OXYHYDROXIDE 500 MG PO SCH ×3 (09:09→17:20)
[2018-05-29] MEDS: PTO:Pancrelipase (NF) 12,000 UNITS CAP.DR PO SCH ×3 (09:09→17:20)
[2018-05-29] MEDS: Lidocaine PATCH 5%* 1 PATCH TRANSDERM SCH (09:13)
[2018-05-29 09:21] LABS: EGFR Non-African American 5.8 (>60)
[2018-05-29] MEDS: Citalopram TAB* 20 MG PO SCH (09:35)
[2018-05-29] MEDS: Lisinopril TAB* 10 MG PO SCH (10:46)
[2018-05-29] MEDS: Isosorbide Mononitrate ER TAB* 60 MG PO SCH (10:46)
[2018-05-29] MEDS: hydrALAZINE TAB* 25 MG PO SCH ×2 (10:46→14:43)
[2018-05-29] MEDS: Gabapentin CAP(*) 100 MG PO SCH (14:53)
--- NOTE | 2018-05-29 16:59 | PN ---
Subjective Date of Service: 05/29/18 Interval History: Patient continues to have severe pain in his chest. Patient states that it is only mildly improved from when he was admitted. Patient states that the pain has been severe since his previous open-heart surgery. Patient states the pain in burning and in his upper chest radiating to his shoulders and that his pain medication helps but that the pain has been getting worse recently and is exacerbated by dialysis. Patient denies dizziness, SOB, palpitations, diarrhea, F/C. Patient has occasional nausea without vomiting. Family History: Unchanged from Admission Social History: Unchanged from Admission Past Medical History: Unchanged from Admission Objective Active Medications: Acetaminophen (Tylenol Tab*) 650 mg PO Q4H PRN PRN Reason: FEVER/PAIN Last Admin: 05/28/18 20:18 Dose: 650 mg Albuterol (Ventolin 2.5 Mg/3 Ml Neb.Joanna*) 2.5 mg INH Q2H PRN PRN Reason: SOB/WHEEZING Amlodipine Besylate (Norvasc Tab*) 10 mg PO DAILY [facility] Last Admin: 05/29/18 09:08 Dose: 10 mg Carvedilol (Coreg Tab*) 25 mg PO BID [facility] Last Admin: 05/29/18 09:06 Dose: Not Given Cinacalcet (Sensipar Tab*) 60 mg PO DAILY [facility] Last Admin: 05/29/18 09:07 Dose: 60 mg Citalopram Hydrobromide (Celexa Tab*) 10 mg PO DAILY [facility] Last Admin: 05/29/18 09:35 Dose: Not Given Cyclobenzaprine HCl (Flexeril Tab*) 10 mg PO TID PRN PRN Reason: SPASMS Docusate Sodium (Colace Cap*) 100 mg PO BID PRN PRN Reason: CONSTIPATION Famotidine (Pepcid Tab*) 20 mg PO DAILY [facility]; Protocol Last Admin: 05/29/18 09:07 Dose: 20 mg Folic Acid (Folvite Tab*) 1 mg PO DAILY [facility] Last Admin: 05/29/18 09:07 Dose: 1 mg Furosemide (Lasix Tab*) 20 mg PO QAM [facility] Last Admin: 05/29/18 09:07 Dose: 20 mg Gabapentin (Neurontin Cap(*)) 100 mg PO TID [facility] Last Admin: 05/29/18 14:53 Dose: Not Given Hydralazine HCl (Apresoline Tab*) 50 mg PO TID [facility] Last Admin: 05/29/18 14:43 Dose: 50 mg Isosorbide Mononitrate (Imdur Er Tab*) 60 mg PO DAILY [facility] Last Admin: 05/29/18 10:46 Dose: 60 mg Lidocaine (Lidoderm 5% Patch*) 1 patch TRANSDERM DAILY [facility] Last Admin: 05/29/18 09:13 Dose: 1 patch Lisinopril (Prinivil Tab*) 10 mg PO DAILY [facility] Last Admin: 05/29/18 10:46 Dose: 10 mg Lorazepam (Ativan Tab(*)) 0.5 mg PO BEDTIME PRN PRN Reason: ANXIETY Lubiprostone (Amitiza (Nf)) 24 mcg PO BID [facility] Last Admin: 05/29/18 09:08 Dose: Not Given Nitroglycerin (Nitroglycerin 5 Mg Patch*) 1 patch TRANSDERM DAILY [facility] Last Admin: 05/29/18 09:08 Dose: 1 patch Pto (Sucroferric Oxyhydroxide [ Velphoro] 500 Mg) 1,000 mg PO TID WITH MEALS [facility] Last Admin: 05/29/18 12:32 Dose: 1,000 mg Omeprazole (Prilosec Cap*) 40 mg PO BID [facility] Last Admin: 05/29/18 09:07 Dose: Not Given Ondansetron HCl (Zofran Inj*) 4 mg IV Q6H PRN PRN Reason: NAUSEA Oxycodone HCl (Roxycodone Tab*) 15 mg PO Q6H PRN PRN Reason: PAIN Last Admin: 05/29/18 09:06 Dose: 15 mg Pancrelipase (Creon (Nf)) 12,000 units PO TID WITH MEALS [facility] Last Admin: 05/29/18 12:31 Dose: 12,000 units Pharmacy Profile Note (Lidocaine Patch Remove*) 1 note N/A 2100 [facility] Last Admin: 05/28/18 20:24 Dose: 1 note Simvastatin (Zocor(Nf)) 5 mg PO BEDTIME [facility] Last Admin: 05/28/18 20:19 Dose: 5 mg Trazodone HCl (Desyrel Tab*) 100 mg PO BEDTIME [facility] Last Admin: 05/28/18 20:16 Dose: 100 mg Vitamin B Complex/Vitamin E (B Complex-50*) 1 tab PO DAILY [facility] Last Admin: 05/29/18 09:00 Dose: Not Given Warfarin Sodium (Coumadin Tab(*)) 5 mg PO 1700 [facility]; Protocol Zolpidem Tartrate (Ambien Tab*) 10 mg PO BEDTIME PRN PRN Reason: SLEEP Vital Signs - 8 hr 05/29/18 05/29/18 05/29/18 09:02 09:06 09:07 Temperature Pulse Rate 63 Respiratory 16 16 16 Rate Blood Pressure (mmHg) O2 Sat by Pulse 100 Oximetry 05/29/18 05/29/18 10:53 11:36 Temperature 98.5 F Pulse Rate 66 Respiratory 16 18 Rate Blood Pressure 145/79 (mmHg) O2 Sat by Pulse 96 Oximetry Oxygen Devices in Use Now: Nasal Cannula Appearance: Patient is a 67yo male who appears stated age and is walking around the room with occasional grimacing from pain. Eyes: No Scleral Icterus, PERRLA Ears/Nose/Mouth/Throat: NL Teeth, Lips, Gums, Clear Oropharnyx, Mucous Membranes Moist Neck: NL Appearance and Movements; NL JVP, Trachea Midline Respiratory: Symmetrical Chest Expansion and Respiratory Effort, Clear to Auscultation Cardiovascular: NL Sounds; No Murmurs; No JVD, RRR, - - Trace B/L LE edema. Pulses 2+. Abdominal: NL Sounds; No Tenderness; No Distention, No Hepatosplenomegaly, - - Upper abdominal distention stable from previous exam. Lymphatic: No Cervical Adenopathy Extremities: No Clubbing, Cyanosis Skin: No Nodules or Sclerosis, - - Previous thoracotomy scar. Neurological: Alert and Oriented x 3, NL Sensation, NL Muscle Strength and Tone , - - CN II-XII intact. Result Diagrams: 05/29/18 08:50 05/29/18 08:49 Assess/Plan/Problems-Billing Assessment: Patient is a 67yo male with PMH for ESRD, on dialysis, CHF, CAD, Multiple Cardiac surgeries, who has been coming to the Emergency Department after every dialysis session for severe chest pain which he states is never controlled and has been getting worse. Patient has hypertensive urgency on admission and is admitted for blood pressure control and pain control with the goal to help with his need to return to the ED multiple times a week. - Patient Problems (1) Chest pain Current Visit: No Status: Acute Code(s): R07.9 - CHEST PAIN, UNSPECIFIED SNOMED Code(s): 44928393 Comment: Stable EKG changes. Is exacerbated by dialysis and has been getting worse prompting numerous visits to the emergency department. Not being adequately controlled with oxycodone, Gabapentin and Flexeril. Patient also feels that these meds are overly sedating when he takes them. Pain managment consulted to discuss adjuntive and non-pharmacologic therapy and possible follow-up in pain clinic. 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 (2) Anemia Current Visit: No Status: Acute Code(s): D64.9 - ANEMIA, UNSPECIFIED SNOMED Code(s): 087502825 Comment: H/H near baseline. Continue to monitor. Likely related to renal disease. (3) Bright red blood per rectum Current Visit: No Status: Acute Code(s): K62.5 - HEMORRHAGE OF ANUS AND RECTUM SNOMED Code(s): 914728552 Comment: Small amount, chronic problem. Related to hemorrhoids. Follow up with surgeon outpatient. (4) Chronic pancreatitis Current Visit: No Status: Acute Code(s): K86.1 - OTHER CHRONIC PANCREATITIS SNOMED Code(s): 458634557 Comment: Continue Pancreaticolipase. (5) ESRF (end stage renal failure) Current Visit: No Status: Acute Code(s): N18.6 - END STAGE RENAL DISEASE SNOMED Code(s): 14218749 Comment: Continue HD MWF, cinacalcet. (6) Hypertensive urgency Current Visit: No Status: Acute Code(s): I16.0 - HYPERTENSIVE URGENCY SNOMED Code(s): 900081611 Comment: Continue home medications of Coreg 25mg BID, Nitro Patch, Imdur 60mg, Amlodipine 10mg, Lasix 20mg, Lisinopril 10 mg daily Increased Hydralazine to 50mg TID. Currently Normotensive. (7) Opioid abuse Current Visit: No Status: Acute Code(s): F11.10 - OPIOID ABUSE, UNCOMPLICATED SNOMED Code(s): 2376813 Comment: Reports of drugs in house making unsafe for home services. Reports of diversion of narcotic therapies. (8) Cardiomyopathy Current Visit: No Status: Chronic Code(s): I42.9 - CARDIOMYOPATHY, UNSPECIFIED SNOMED Code(s): 63110546 Comment: LVEF 35-40% on TTE Continue lisinopril, carvedilol, hydralazine, nitrate. Slightly decreased possibly due to severely increased BP. (9) ICD (implantable cardioverter-defibrillator) in place Current Visit: No Status: Chronic Code(s): Z95.810 - PRESENCE OF AUTOMATIC ( IMPLANTABLE) CARDIAC DEFIBRILLATOR SNOMED Code(s): 235072665 Comment: (10) DVT prophylaxis Current Visit: No Status: Acute Onset Date: 10/22/14 Code(s): EHY1484 - SNOMED Code(s): 406075599 Comment: Warfarin, monitor INR, slightly supratherapeutic.
[2018-05-29] MEDS ORDERED: Warfarin TAB(*) 2 MG PO SCH (17:00)
[2018-05-29] MEDS: Lidocaine Patch REMOVE* 1 NOTE MISC SCH (21:23)
[2018-05-30] MEDS: Carvedilol TAB* 25 MG PO SCH ×2 (00:34→08:43)
[2018-05-30] MEDS: CMCS:Simvastatin TAB(NF) 10 MG TAB PO SCH (00:34)
[2018-05-30] MEDS: hydrALAZINE TAB* 25 MG PO SCH ×3 (00:35→14:26)
[2018-05-30] MEDS: Lubiprostone 24 MCG CAP (NF) PO SCH ×2 (00:41→08:44)
[2018-05-30] MEDS: Omeprazole CAP* 20 MG PO SCH ×2 (00:41→08:45)
[2018-05-30] MEDS: traZODone TAB* 100 MG PO SCH (00:42)
[2018-05-30] MEDS: Gabapentin CAP(*) 100 MG PO SCH ×3 (03:59→14:25)
[2018-05-30 07:23] LABS: ABS Basophils 0 10^3/ul (0-0.2); ABS Eosinophils 0 10^3/ul (0-0.6); ABS Lymphocytes 0.8 10^3/ul (1.0-4.8); ABS Monocytes 0.6 10^3/ul (0-0.8); ABS Neutrophils 1.9 10^3/ul (1.5-7.7); ABS Nucleated RBC 0 10^3/ul; Eosinophil % 1.3 % (0-6); Hematocrit 34 % (42-52); Lymphocyte % 24.3 % (25-47); Mean Corpuscular HGB Conc 33 g/dl (31-36); Mean Corpuscular Hemoglobin 29 pg (27-31); Mean Corpuscular Volume 89 fL (80-94); Nucleated Red Blood Cells % 0.2; Platelet Count 115 10^3/ul (150-450); Red Cell Distribution Width 18 % (10.5-15); White Blood Count 3.4 10^3/ul (3.5-10.8)
[2018-05-30 07:31] LABS: INR 2.83 (0.77-1.02)
[2018-05-30 07:39] LABS: EGFR Non-African American 4.9 (>60)
[2018-05-30] MEDS: SUCROFERRIC OXYHYDROXIDE 500 MG PO SCH ×2 (08:42→14:25)
[2018-05-30] MEDS: Vitamin B Complex TAB PO SCH (08:42)
[2018-05-30] MEDS: PTO:Pancrelipase (NF) 12,000 UNITS CAP.DR PO SCH ×3 (08:42→14:25)
[2018-05-30] MEDS: Lidocaine PATCH 5%* 1 PATCH TRANSDERM SCH (08:43)
[2018-05-30] MEDS: Folic Acid TAB* 1 MG PO SCH (08:43)
[2018-05-30] MEDS: Lisinopril TAB* 10 MG PO SCH (08:43)
[2018-05-30] MEDS: amLODIPine TAB* 5 MG PO SCH (08:43)
[2018-05-30] MEDS: Cinacalcet TAB* 30 MG PO SCH (08:44)
[2018-05-30] MEDS: Citalopram TAB* 20 MG PO SCH (08:44)
[2018-05-30] MEDS: Famotidine TAB* 20 MG PO SCH (08:44)
[2018-05-30] MEDS: Furosemide TAB* 20 MG PO SCH (08:44)
[2018-05-30] MEDS: Isosorbide Mononitrate ER TAB* 60 MG PO SCH (08:44)
[2018-05-30] MEDS: Nitroglycerin 0.2 MG/HR PATCH* (5 MG) TRANSDERM SCH (08:59)
[2018-05-30 12:12] VITALS: BP 140/93
--- NOTE | 2018-05-30 16:28 | CONSULT ---
Consult Consult: INPATIENT PAIN CONSULTATION Pato Templeton is a 67 yo male with a medical history significant for ESRD. He is on hemodialysis 3 times a week. He also has a history of low back pain and was seen in the pain clinic for that several years ago. 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 He has come to the ER on multiple occasions for chest and belly pain after dialysis. This often gets better after a shot in the ER, but he has been admitted several times. It is not clear what the source of the pain is. He tells me he used to see Dr. Pratt for the pain and was on oxycodone 15 mg 6 times a day. There was apparently misuse of his medications leading to his dismissal. He now sees Dr. Vargas and is on Oxycodone 15 mg three times a day. He was hospitalized on Thursday after dialysis after he developed chest pain with hypertension. I was asked to evaluate his pain. The patient describes it to me as being in his abdomen, can go up to the chest. He has no warning when it will come on. The oxycodone does not keep it away. PAST MEDICAL HISTORY: ESRD, PUD, Hep C, Pancreatitis, Low back pain, Cardiomyopathy ALLERGIES: ASA, dilaudid Current Medications Acetaminophen (Tylenol Tab*) 650 mg PO Q4H PRN PRN Reason: FEVER/PAIN Last Admin: 05/28/18 20:18 Dose: 650 mg Albuterol (Ventolin 2.5 Mg/3 Ml Neb.Joanna*) 2.5 mg INH Q2H PRN PRN Reason: SOB/WHEEZING Amlodipine Besylate (Norvasc Tab*) 10 mg PO DAILY [facility] Last Admin: 05/30/18 08:43 Dose: 10 mg Carvedilol (Coreg Tab*) 25 mg PO BID [facility] Last Admin: 05/30/18 08:43 Dose: 25 mg Cinacalcet (Sensipar Tab*) 60 mg PO DAILY [facility] Last Admin: 05/30/18 08:44 Dose: Not Given Citalopram Hydrobromide (Celexa Tab*) 10 mg PO DAILY [facility] Last Admin: 05/30/18 08:44 Dose: Not Given Cyclobenzaprine HCl (Flexeril Tab*) 10 mg PO TID PRN PRN Reason: SPASMS Docusate Sodium (Colace Cap*) 100 mg PO BID PRN PRN Reason: CONSTIPATION Famotidine (Pepcid Tab*) 20 mg PO DAILY [facility]; Protocol Last Admin: 05/30/18 08:44 Dose: Not Given Folic Acid (Folvite Tab*) 1 mg PO DAILY [facility] Last Admin: 05/30/18 08:43 Dose: 1 mg Furosemide (Lasix Tab*) 20 mg PO QAM [facility] Last Admin: 05/30/18 08:44 Dose: Not Given Gabapentin (Neurontin Cap(*)) 100 mg PO TID [facility] Last Admin: 05/30/18 14:25 Dose: Not Given Hydralazine HCl (Apresoline Tab*) 50 mg PO TID [facility] Last Admin: 05/30/18 14:26 Dose: Not Given Isosorbide Mononitrate (Imdur Er Tab*) 60 mg PO DAILY [facility] Last Admin: 05/30/18 08:44 Dose: Not Given Lidocaine (Lidoderm 5% Patch*) 1 patch TRANSDERM DAILY [facility] Last Admin: 05/30/18 08:43 Dose: 1 patch Lisinopril (Prinivil Tab*) 10 mg PO DAILY [facility] Last Admin: 05/30/18 08:43 Dose: 10 mg Lorazepam (Ativan Tab(*)) 0.5 mg PO BEDTIME PRN PRN Reason: ANXIETY Lubiprostone (Amitiza (Nf)) 24 mcg PO BID [facility] Last Admin: 05/30/18 08:44 Dose: Not Given Nitroglycerin (Nitroglycerin 5 Mg Patch*) 1 patch TRANSDERM DAILY [facility] Last Admin: 05/30/18 08:59 Dose: 1 patch Pto (Sucroferric Oxyhydroxide [ Velphoro] 500 Mg) 1,000 mg PO TID WITH MEALS [facility] Last Admin: 05/30/18 14:25 Dose: Not Given Omeprazole (Prilosec Cap*) 40 mg PO BID [facility] Last Admin: 05/30/18 08:45 Dose: Not Given Ondansetron HCl (Zofran Inj*) 4 mg IV Q6H PRN PRN Reason: NAUSEA Oxycodone HCl (Roxycodone Tab*) 15 mg PO Q6H PRN PRN Reason: PAIN Last Admin: 05/29/18 09:06 Dose: 15 mg Pancrelipase (Creon (Nf)) 12,000 units PO TID WITH MEALS [facility] Last Admin: 05/30/18 14:25 Dose: Not Given Pharmacy Profile Note (Lidocaine Patch Remove*) 1 note N/A 2100 [facility] Last Admin: 05/29/18 21:23 Dose: 1 note Simvastatin (Zocor(Nf)) 5 mg PO BEDTIME [facility] Last Admin: 05/30/18 00:34 Dose: 5 mg Trazodone HCl (Desyrel Tab*) 100 mg PO BEDTIME [facility] Last Admin: 05/30/18 00:42 Dose: Not Given Vitamin B Complex/Vitamin E (B Complex-50*) 1 tab PO DAILY [facility] Last Admin: 05/30/18 08:42 Dose: 1 tab Warfarin Sodium (Coumadin Tab(*)) 5 mg PO 1700 [facility]; Protocol Last Admin: 05/29/18 17:20 Dose: 5 mg Zolpidem Tartrate (Ambien Tab*) 10 mg PO BEDTIME PRN PRN Reason: SLEEP SOCIAL HISTORY: non smoker, rare alcohol. Drank more in the past. Smokes 1 joint a day. Lives with his SO in [facility] Vital Signs Temp Pulse Resp BP Pulse Ox 99.0 F 72 18 140/93 93 05/30/18 11:22 05/30/18 11:22 05/30/18 11:26 05/30/18 11:22 05/30/18 11:22 EXAM: LUNGS: Clear bilat HEART: reg rhythm ABDOMEN: Soft, NT EXTREMITIES: Normal tone NEUROLOGIC: A & O. Muscle strength 5/5. DTR 2+ in PT, BC, TC GAIT: Uses rollator walker ASSESSMENT: 1. Chronic Abdominal Pain 2. Atypical Chest Pain PLAN: It is not clear what is driving his pain. I do think the current meds are not working for him. I would likely switch him to Methadone, 10 mg TID and see if this will work better for him. As he is being discharged, he can follow up with me in the Pain Clinic if he would like to follow this plan.
--- NOTE | 2018-05-31 01:47 | DS ---
CC: Marielena Vargas MD; Max Ca MD; Javi Ng MD* DISCHARGE SUMMARY: DATE OF ADMISSION: 05/28/18 DATE OF DISCHARGE: 05/30/18 PRIMARY CARE PROVIDER: Marielena Vargas MD MY ATTENDING WHILE IN THE HOSPITAL: Max Ca MD* (dictated by ELEAZAR Joe). CONSULTING PAIN MANAGEMENT DOCTOR: Javi Ng MD PRIMARY DISCHARGE DIAGNOSES: 1. Chest pain. 2. Abdominal pain. 3. Back pain. 4. Hypertensive urgency. SECONDARY DISCHARGE DIAGNOSES: 1. End-stage renal disease, on hemodialysis. 2. History of upper extremity deep venous thrombosis. 3. Coronary artery disease. 4. Cardiomyopathy, most recent EF 35% to 40%. 5. Atrial fibrillation, on Coumadin. 6. Peripheral vascular disease. 7. Hepatitis C. 8. Gastroesophageal reflux disease. 9. Depression. 10. Hypertension. 11. Hyperlipidemia. 12. History of mitral and tricuspid valve repairs and ICD placement. 13. Chronic pancreatitis. STUDIES DONE WHILE IN THE HOSPITAL: Electrocardiogram from 05/28/18 shows normal sinus rhythm, T-wave inversions in V5 and V6, left axis deviation, QTc of 488, rate of 62, probable left atrial enlargement and left ventricular hypertrophy, T-wave inversions in I and aVL. Transthoracic echocardiogram from 05/28/18 read as mild concentric left ventricular hypertrophy. There is global hypokinesis of the left ventricle with regional variation more pronounced in the inferior and posterior, posterolateral hypokinesis. There is mildly decreased left ventricular systolic function, estimated ejection fraction of 35% to 40%, septal flattening of the interventricular septum consistent with right ventricular volume pressure overload. There is abnormal ventricular septal wall motion consistent with right ventricular pacemaker. Left atrium is severely dilated. Right ventricle is mildly dilated. Right ventricular wall thickness is mildly increased. Right ventricular global systolic function is mildly reduced. Right atrial cavity size is severely dilated. Mild aortic stenosis, mild aortic regurgitation, moderate mitral regurgitation, but mitral regurgitation jet is eccentric which begins centrally and deviates towards to the interatrial septum , mitral valve repair functioning abnormally, possible moderate tricuspid regurgitation not well seen. Appearance of the valve is consistent with tricuspid repair. Right ventricular systolic pressure is estimated at 59 mmHg. There is evidence of moderate pulmonary hypertension. There is mild pulmonary regurgitation. There is mild dilatation of the ascending aorta. Decrease in EF from 45% to 50% on 01/05/18 to 35% to 40% now. Gallbladder ultrasound read as mild hepatomegaly, grossly normal gallbladder, medical renal disease, right-sided effusion. MEDICATIONS AT DISCHARGE: 1. Zofran 4 mg p.o. q.6 hours as needed. 2. Nitroglycerin 0.4 mg sublingually q.5 minutes as needed. 3. Zolpidem 5 mg p.o. at bedtime as needed. 4. Lorazepam 0.5 mg at bedtime as needed. 5. Lisinopril 10 mg p.o. daily. 6. Ranitidine 150 mg p.o. daily. 7. Simvastatin 5 mg p.o. at bedtime. 8. Oxycodone 15 mg p.o. q.6 hours as needed. 9. Trazodone 100 mg p.o. at bedtime. 10. Omeprazole 40 mg p.o. b.i.d. 11. Nitroglycerin 2 mg an hour 1 patch transdermal daily. 12. Ibuprofen 600 mg p.o. t.i.d. as needed. 13. Warfarin 5 mg p.o. nightly. 14. Amlodipine 10 mg p.o. daily. 15. Docusate 100 mg p.o. b.i.d. as needed. 16. Furosemide 20 mg p.o. q.a.m. 17. Lexapro 10 mg p.o. daily. 18. Gabapentin 100 mg p.o. t.i.d. 19. Velphoro 1000 mg p.o. with snacks. 20. Velphoro 1000 mg p.o. t.i.d. with meals. 21. Imdur 60 mg p.o. daily. 22. Kayexalate 15 g p.o. as needed for hyperkalemia. 23. Sensipar 60 mg p.o. daily. 24. Creon 12,000 units p.o. t.i.d. with meals. 25. Folic acid (vitamin B complex) 1 mg p.o. daily. 26. Carvedilol 25 mg p.o. b.i.d. 27. Amitiza 24 mcg p.o. b.i.d. 28. Ventolin inhaler 2 puffs inhalation q.4 hours as needed. 29. Tylenol 650 mg p.o. q.4 hours as needed. 30. Cyclobenzaprine 10 mg p.o. t.i.d. as needed. 31. Lidocaine patch 1 patch transdermal daily. 32. Hydralazine 50 mg p.o. t.i.d. New medications at discharge: 1. Cyclobenzaprine. 2. Lidocaine. 3. Hydralazine. HOSPITAL COURSE: This is a brief summary of the patient's presentation. For more details, please see the history and physical from Rigoberto Rader NP, on 08/05. In brief, the patient is a 67-year-old male with a very complex past medical history as above, who has been hospitalized at this institution numerous times and has been seen in the emergency department numerous times as well. The patient most recently has been coming to the emergency department on 05/10/18, 05/14/18, 05/19/18 twice, 05/21/18, 05/23/18, 05/26/18 and then , all for issues related to chronic pain. The patient complains of pain his chest, back and abdomen mainly, which is exacerbated by dialysis, slightly improved with his home oxycodone. The patient has not been taking his gabapentin. The patient uses marijuana daily, which does not help with his pain. The patient denies any other medication nonadherence. The patient states he has been following routinely with medical care. The patient went to dialysis on the day of admission and per his recent routine, came into the emergency department. The patient in the emergency department was not treated with IV pain medication. The patient's blood pressure was elevated initially to a manual blood pressure of 196/133. The patient was given labetalol. The patient declined aspirin. The patient's BNP and troponin were at his baseline. The patient was admitted to the hospital for hypertensive urgency as well as concerns for his very frequent visits to the emergency department for intractable pain. The patient had his hydralazine increased from 25 mg t.i.d. to 50 mg t.i.d. and was given a one-time dose of enalapril with good response in his blood pressure. The patient was normotensive to slightly hypertensive for the remainder of his hospitalization. The patient's INR was initially 3.2, repeat was 2.86. The patient had laboratory data consistent with his baseline with low chloride, elevated carbon dioxide, elevated creatinine which trended up throughout his last hospitalization, normal lactic acid; elevated troponin at 0.06, 0.06 and 0.05. The patient has never had a normal troponin. The patient's BNP was 8357, which is decreased from his most recent evaluation on when it was over 10,000. The patient's TSH was high which has been the case in the past, the patient's TSH fluctuates. The patient stated that his pain improved somewhat on the second day of his admission; however, he states he does not feel ready to go home and wanted further evaluation of his pain. The patient had studies as above. The patient has no obvious medical issue for his pain. The patient states that his pain may have started after his thoracotomy for his valve replacements. The patient also has chronic abdominal distention and chronic pancreatitis as well as degenerative disk disease contributing to back pain. The patient was previously seen per his report in the [facility] and was given consideration for a back spinal injection , but he states that because of administrative issues he was unable to follow through with this and has not returned there since then. The patient has never been seen per records by a pain process control operator. Dr. Ng was consulted and saw the patient on 05/30/18, though recommended no acute medication changes as the patient was going to be discharged on the evening of 05/30/18 due to the unavailability of inpatient hemodialysis and the early start time of his dialysis on Thursday; however, Dr. Ng recommended the patient follow up in the pain clinic with him and recommended methadone therapy as a possible alternative treatment for his chronic pain to his oxycodone therapy. While in the hospital, the patient had his gabapentin dose decreased from 300 to 100 due to concerns about over sedation; however, the patient still refused the lower dose. The patient was offered cyclobenzaprine, which he refused. The patient wears a lidocaine patch on his back for chronic shoulder blade pain. The patient was maintained on his home dose of warfarin while in the hospital. Due to the unavailability of inpatient hemodialysis as well as the fact that the patient was stable, was admitted with hypertensive urgency which resolved quickly and was seemingly unwilling to try alternative therapies for his chronic pain, the patient was stable and amenable for discharge on 05/30/18. PHYSICAL EXAMINATION ON DAY OF DISCHARGE: General: The patient is a 67-year- old male, who appears stated age and sitting comfortably in the bed, in no acute distress. Vital Signs: At the time of discharge, temperature 98.0, pulse rate 72, respiratory rate 14, oxygen saturation 93% on room air. HEENT: Head normocephalic, atraumatic. Sclerae anicteric. No conjunctival injection. Nasal mucosa moist. Oral mucosa moist. No pharyngeal erythema, discharge, or exudate. Neck: Supple, nontender. No lymphadenopathy. No carotid bruit auscultated. No JVD. Cardiac: Regular rate and rhythm. No clicks, murmurs, gallops, or rubs. Pulses 2+ in bilateral dorsalis pedis, posterior tibialis, and radial areas. 1+ edema in bilateral lower extremities. No calf tenderness noted bilaterally. Scar on chest consistent with a previous thoracotomy. Allodynia with palpation of the chest. Respiratory: Clear to auscultation bilaterally. No wheezes, rales, or rhonchi. Good air exchange bilaterally. Abdomen: Tender to palpation in the upper quadrants, distended consistent with previous exams. Normoactive bowel sounds present in all 4 quadrants. No hepatosplenomegaly. No abdominal bruits auscultated. No hepatojugular reflux. Genitourinary: No suprapubic or CVA tenderness. Skin: Scars consistent with surgeries as above. Dialysis fistula present in right forearm. No other rashes or ulcers. LABORATORY DATA: On day of discharge, white blood cell count 3.4, hemoglobin 11.0, platelet count 115,000. INR 2.83. Sodium 137, potassium 4.3, chloride 94 , carbon dioxide 34, anion gap 9, BUN 35, creatinine of 10.6, glucose 89, calcium 9.2, magnesium of 2.5. DISCHARGE PLAN: The patient will be discharged to home. The patient has close followup with his primary care provider on Thursday, which he states he will go to. The patient will be continued on his current pain regimen of oxycodone 15 mg q.6 hours as needed. The patient states he does not need any medication refills. The patient will continue with his INR checks as above. The patient will have his hydralazine increased, which seemed to control his hypertension. The patient should continue with dialysis Thursday, Thursday, Thursday. The patient has been referred to interim followup with pain clinic. Consideration should be given to methadone therapy or other alternative or adjunctive pain control medications including spinal facet injections, acupuncture massage, or other non-opioid therapies to attempt to help the patient control the chronic pain particularly exacerbated by his dialysis. The patient had a decreased ejection fraction on his echocardiogram, though not significantly so and this was in the setting of hypertensive urgency. The patient's mitral valve is functioning abnormally; however, this was noted on previous exam. The patient should follow up with his computer technical specialist to discuss these findings. The patient should return to the hospital for alarming symptoms such as syncope, severe shortness of breath, intractable pain, severe diarrhea, new-onset weakness, or severely elevated blood pressure. TIME SPENT: Approximately 60 minutes were spent on this discharge, 30 of which was spent [id number] with the patient obtaining history and physical and discussing treatment plan. ELEAZAR JOE [id number]/[facility] #: [id number] STEPHANIE
== END 2018-05-30 16:35 | disposition home or self-care (01) ==
LOC: ED 08:12 → MEDTELE 11:38
PROVIDERS: ADMIT Hospitalist; ATTEND Student in an Organized Health Care Education/Training Program
DX: R07.9 Chest pain, unspecified (principal); N18.6 End stage renal disease; Z99.2 Dependence on renal dialysis; I82.890 Acute embolism and thrombosis of other specified veins; I82.601 Acute embolism and thrombosis of unspecified veins of right upper extremity; I25.10 Atherosclerotic heart disease of native coronary artery without angina pectoris; I42.9 Cardiomyopathy, unspecified; I48.91 Unspecified atrial fibrillation; R06.02 Shortness of breath; Z87.891 Personal history of nicotine dependence; I50.9 Heart failure, unspecified; Z79.01 Long term (current) use of anticoagulants; F32.9 Major depressive disorder, single episode, unspecified; E78.5 Hyperlipidemia, unspecified; Z95.4 Presence of other heart-valve replacement; K85.90 Acute pancreatitis without necrosis or infection, unspecified; B19.20 Unspecified viral hepatitis C without hepatic coma
CPT/HCPCS: 36415; 71045; 76705; 80048; 80053; 82550; 82553; 83605; 83735; 83880; 84443; 84484; 85025; 85610; 85730; 93005; 93306; 96374; 96375; 99284; A9270-GY; G0378

== ENCOUNTER 2018-06-09 19:25 | Emergency (ER) | payer MEDICARE, MEDICAID ==
[2018-06-09 21:52] LABS: Hematocrit 36 % (42-52); Hemoglobin 11.6 g/dl (14.0-18.0); Mean Corpuscular HGB Conc 33 g/dl (31-36); Mean Corpuscular Hemoglobin 29 pg (27-31); Mean Corpuscular Volume 89 fL (80-94); Red Blood Count 4.01 10^6/ul (4.00-5.40); Red Cell Distribution Width 18 % (10.5-15); White Blood Count 2.7 10^3/ul (3.5-10.8)
[2018-06-09 22:02] LABS: EGFR Non-African American 11.2 (>60)
[2018-06-09] MEDS ORDERED: Ondansetron ODT TAB* 4 MG PO ONE (22:07)
[2018-06-09] MEDS ORDERED: Morphine VIAL* 10 MG/ML 1 ML VIAL IV ONE (22:07)
[2018-06-09 22:41] LABS: ABS Basophils 0.1 10^3/ul (0-0.2); ABS Eosinophils 0 10^3/ul (0-0.6); ABS Lymphocytes 0.6 10^3/ul (1.0-4.8); ABS Monocytes 0.6 10^3/ul (0-0.8); ABS Neutrophils 1.4 10^3/ul (1.5-7.7); ABS Nucleated RBC 0 10^3/ul; Eosinophil % 1.2 % (0-6); Lymphocyte % 22.3 % (25-47); Nucleated Red Blood Cells % 0; Platelet Count 83 10^3/ul (150-450)
--- NOTE | 2018-06-09 22:41 | ED ---
Abdominal Pain/Male - HPI Summary HPI Summary: Patient complains of diffuse abdominal pain starting today at 7 PM. Abdominal pain described as constant, diffuse, sharp. Patient states she has history of same with chronic pancreatitis. States he it is his pancreas. First denies N/V , then admits to N/V mild. Denies fever, cough, sore throat, CP, SOB, change in urine, change in BM. Medical history is chronic pancreatitis, A. fib, HTN, cardiac bypass, dialysis, pacemaker, hep C, GERD. Abdominal/pelvic surgical history is appendectomy. States nonsmoker, denies EtOH. Patient on Coumadin. - History of Current Complaint Chief Complaint: EDAbdPain Stated Complaint: ABD PAIN Time Seen by Provider: 06/09/18 20:53 Pain Intensity: 10 - Allergies/Home Medications Allergies/Adverse Reactions: Allergies Allergy/AdvReac Type Severity Reaction Status Date / Time aspirin Allergy "Ever Verified 06/09/18 19:37 since i was a boy i was told not to take aspirin" hydromorphone AdvReac Pt states Verified 06/09/18 19:37 "he feels like a junky" PMH/Surg Hx/FS Hx/Imm Hx Endocrine/Hematology History: Reports: Hx Blood Transfusions, Hx Sickle Cell Disease - Was told had sickle cell at one point but denies, Hx Anemia Denies: Hx Anticoagulant Therapy, Hx Bone Marrow Disease, Hx Diabetes, Hx Thyroid Disease Cardiovascular History: Reports: Hx Angina, Hx Auto Implanted Cardiovert Defib, Hx Congestive Heart Failure, Hx Coronary Artery Disease, Hx Deep Vein Thrombosis , Hx Hypertension, Hx Pacemaker/ICD, Hx Peripheral Vascular Disease, Hx Syncope , Other Cardiovascular Problems/Disorders - cardiomegaly, mitral valve and tricuspid valve repair Denies: Hx Cardiomegaly, Hx Hypercholesterolemia, Hx Myocardial Infarction, Hx Rheumatic Fever, Hx Valvular Heart Disease Respiratory History: Reports: Hx Asthma, Hx Chronic Obstructive Pulmonary Disease (COPD), Hx Pleural Effusion, Hx Pneumonia, Other Respiratory Problems/ Disorders Denies: Hx Pulmonary Edema, Hx Pulmonary Embolism, Hx Sleep Apnea GI History: Reports: Hx Cirrhosis, Hx Gastroesophageal Reflux Disease, Hx Ulcer - peptic ulcer, Other GI Disorders - hep C Denies: Hx Crohn's Disease, Hx Hiatal Hernia, Hx Irritable Bowel, Hx Jaundice History: Reports: Hx Acute Renal Failure, Hx Chronic Renal Failure, Hx Dialysis, Hx Renal Disease, Other Problems/Disorders - end stage renal disease, on dialysis Denies: Hx Kidney Infection, Hx Kidney Stones Musculoskeletal History: Reports: Hx Arthritis, Hx Back Problems - chronic pain , Hx Orthopedic Injury Denies: Hx Rheumatoid Arthritis, Hx Bursitis, Hx Tendonitis, Other Musculoskeletal History Sensory History: Reports: Hx Contacts or Glasses - did not bring however, Hx Glaucoma, Hx Vision Problem Denies: Hx Cataracts, Hx Hearing Aid, Hx Hearing Problem, Other Sensory Impairments Opthamlomology History: Reports: Hx Contacts or Glasses - did not bring however , Hx Glaucoma, Hx Vision Problem Denies: Hx Cataracts, Other Sensory Impairments Neurological History: Reports: Hx Headaches, Hx Migraine, Other Neuro Impairments/Disorders - depression Denies: Hx Dementia, Hx Seizures Psychiatric History: Reports: Hx Anxiety, Hx Depression, Hx Substance Abuse - ETOH Denies: Hx Eating Disorder, Hx Panic Disorder, Hx Suicide Attempt, Hx of Violent Episodes Against Others - Cancer History Hx Chemotherapy: No Hx Radiation Therapy: No Hx Palliative Cancer Treatment: No - Surgical History Surgery Procedure, Year, and Place: HERNIA REPAIR 2012. APPENDECTOMY 2000. LEFT ARM AV FISTULA/CAD - REMOVED. CABG 1 vessel, mitral & tricuspid valve repair March 02, 2014 AT [facility] CONDITIONAL 5 UPTO 3T. POWER PORT. Mitral and tricuspid valve repair Hx Anesthesia Reactions: No - Immunization History Date of Tetanus Vaccine: 2014 Date of Influenza Vaccine: Fall 2015 Infectious Disease History: No Infectious Disease History: Reports: Hx Hepatitis - Hep C, Hx of Known/ Suspected MRSA, History Other Infectious Disease - Hepatitis C Denies: Hx Clostridium Difficile, Hx Human Immunodeficiency Virus (HIV), Hx Shingles, Hx Tuberculosis, Hx Known/Suspected VRE, Hx Known/Suspected VRSA, Traveled Outside the in Last 30 Days - Family History Known Family History: Positive: Cardiac Disease, Hypertension, Other - CVA Family History: R & N/C - Social History Alcohol Use: None Alcohol Amount: former EtOH abuse Hx Substance Use: Yes Substance Use Type: Reports: Marijuana, Prescribed Substance Use Comment - Amount & Last Used: for pain Hx Tobacco Use: Yes Smoking Status (MU): Former Smoker Type: Cigarettes Amount Used/How Often: 1/2 ppd Length of Time of Smoking/Using Tobacco: 10 years Have You Smoked in the Last Year: No Review of Systems Constitutional: Negative Eyes: Negative ENT: Negative Cardiovascular: Negative Respiratory: Negative Positive: Abdominal Pain, Vomiting, Nausea Genitourinary: Negative Musculoskeletal: Negative Skin: Negative Neurological: Negative Psychological: Normal All Other Systems Reviewed And Are Negative: Yes Physical Exam - Summary Physical Exam Summary: Patient indicates tenderness no matter where you touch him on abdomen. Less so when you are palpating and he is distracted while talking. Triage Information Reviewed: Yes Vital Signs On Initial Exam: Initial Vitals Temp Pulse Resp BP Pulse Ox 98.9 F 67 18 181/122 98 06/09/18 19:33 06/09/18 19:33 06/09/18 19:33 06/09/18 19:33 06/09/18 19:33 Vital Signs Reviewed: Yes Appearance: Positive: Well-Appearing Skin: Positive: Warm Head/Face: Positive: Normal Head/Face Inspection Eyes: Positive: Normal Neck: Positive: Supple Respiratory/Lung Sounds: Positive: Clear to Auscultation Cardiovascular: Positive: Normal Abdomen Description: Positive: Other: Musculoskeletal: Positive: Normal Neurological: Positive: Normal Psychiatric: Positive: Normal AVPU Assessment: Alert - Kian Coma Scale Best Eye Response: 4 - Spontaneous Best Motor Response: 6 - Obeys Commands Best Verbal Response: 5 - Oriented Coma Scale Total: 15 Diagnostics - Vital Signs Vital Signs Temp Pulse Resp BP Pulse Ox 06/09/18 22:31 19 06/09/18 19:33 98.9 F 67 18 181/122 98 - Laboratory Lab Results: Lab Results 06/09/18 06/09/18 Range/Units 21:33 21:33 WBC 2.7 L (3.5-10.8) 10^3/ul RBC 4.01 (4.00-5.40) 10^6/ul Hgb 11.6 L (14.0-18.0) g/dl Hct 36 L (42-52) % MCV 89 (80-94) fL MCH 29 (27-31) pg MCHC 33 (31-36) g/dl RDW 18 H (10.5-15) % Plt Count Pending MPV Pending Neut % (Auto) Pending Lymph % (Auto) Pending Gilchrist % (Auto) Pending Eos % (Auto) Pending Baso % (Auto) Pending Absolute Neuts (auto) Pending Absolute Lymphs (auto) Pending Absolute Monos (auto) Pending Absolute Eos (auto) Pending Absolute Basos (auto) Pending Absolute Nucleated RBC Pending Nucleated RBC % Pending Sodium 137 (135-145) mmol/L Potassium 4.4 (3.5-5.0) mmol/L Chloride 95 L (101-111) mmol/L Carbon Dioxide 35 H (22-32) mmol/L Anion Gap 7 (2-11) mmol/L BUN 21 (6-24) mg/dL Creatinine 5.19 H (0.67-1.17) mg/dL Est GFR ( Amer) 13.6 (>60) Est GFR (Non-Af Amer) 11.2 (>60) BUN/Creatinine Ratio 4.0 L (8-20) Glucose 92 (70-100) mg/dL Calcium 9.6 (8.6-10.3) mg/dL Total Bilirubin 0.90 (0.2-1.0) mg/dL AST 51 H (13-39) U/L ALT 29 (7-52) U/L Alkaline Phosphatase 70 (34-104) U/L Total Protein 7.9 (6.4-8.9) g/dL Albumin 4.2 (3.2-5.2) g/dL Globulin 3.7 (2-4) g/dL Albumin/Globulin Ratio 1.1 (1-3) Lipase 29 (11.0-82.0) U/L Result Diagrams: 06/09/18 21:33 06/09/18 21:33 Lab Statement: Any lab studies that have been ordered have been reviewed, and results considered in the medical decision making process. Abdominal Pain Fem Course/Dx - Course Course Of Treatment: Patient complains of diffuse abdominal pain starting today at 7 PM. Abdominal pain described as constant, diffuse, sharp. Patient states she has history of same with chronic pancreatitis. States he it is his pancreas. First denies N/V, then admits to N/V mild. Denies fever, cough, sore throat, CP, SOB, change in urine, change in BM. Medical history is chronic pancreatitis, A. fib, HTN, cardiac bypass, dialysis, pacemaker, hep C, GERD. Abdominal/pelvic surgical history is appendectomy. States nonsmoker, denies EtOH. Patient on Coumadin. Physical exam:Patient indicates tenderness no matter where you touch him on abdomen. Less so when you are palpating and he is distracted while talking. Ultrasound gallbladder 05/28/[address] abdomen/pelvis 04/20/18 negative. Lipase is almost always normal on this patient. Today vital signs are normal other than elevated BP. BP from prior visits suggest patient SBP baseline around 140. Possible elevation due to pain. Discharge SBP 163 after morphine administration. Labs at patient baseline. Patient well known to this ED for recurrent visits for pain medication. Discussed patient with Dr. Luther who recommends discharge home. - Diagnoses Provider Diagnoses: Abdominal pain Discharge - Sign-Out/Discharge Documenting (check all that apply): Patient Departure - Discharge Plan Condition: Stable Disposition: HOME Patient Education Materials: Acute Abdominal Pain (ED) Referrals: Marielena Vargas MD [Primary Care Provider] - Additional Instructions: Follow-up with primary care. Return to the ED for any new or worsening symptoms - Billing Disposition and Condition Condition: STABLE Disposition: Home
[2018-06-09 22:56] VITALS: BP 163/121
== END 2018-06-09 22:51 | disposition home or self-care (01) ==
LOC: ED 19:25
DX: R10.9 Unspecified abdominal pain (principal); Z87.891 Personal history of nicotine dependence; K86.1 Other chronic pancreatitis; I48.91 Unspecified atrial fibrillation; I10 Essential (primary) hypertension; K21.9 Gastro-esophageal reflux disease without esophagitis; Z95.0 Presence of cardiac pacemaker; Z99.2 Dependence on renal dialysis; Z79.01 Long term (current) use of anticoagulants
CPT/HCPCS: 36415; 80053; 83690; 85025; 96374; 99282; A9270-GY; J2270

== ENCOUNTER 2018-06-11 20:47 | Emergency (ER) | payer MEDICARE, MEDICAID ==
[2018-06-12] MEDS ORDERED: traMADol TAB* 50 MG PO ONE
[2018-06-12 00:56] VITALS: BP 200/100
--- NOTE | 2018-06-12 01:31 | ED ---
Abdominal Pain/Male - HPI Summary HPI Summary: Patient is a 67-year-old male who is a frequent visitor to the ED presenting with mid upper abdominal pain which is been present times several weeks. He says he has a "pancreatic problem." He states it is likely secondary to pancreatitis from his excess alcohol use, however he denies any alcohol use recently. He was seen for the same 2 days ago. He has a complicated history and is currently on dialysis. He is requesting morphine on arrival, however he appears well. - History of Current Complaint Chief Complaint: EDAbdPain Stated Complaint: ABD PAIN Time Seen by Provider: 06/11/18 22:35 Hx Obtained From: Patient Onset/Duration: Gradual Onset Timing: Constant Severity Initially: Moderate Severity Currently: Moderate Pain Intensity: 3 Pain Scale Used: 0-10 Numeric Location: Epigastric Radiates: No Character: Cramping Aggravating Factor(s): Nothing Alleviating Factor(s): Nothing Associated Signs And Symptoms: Positive: Negative - Risk Factors Testicular Torsion: Negative Cardiac Risk Factors: Negative - Allergies/Home Medications Allergies/Adverse Reactions: Allergies Allergy/AdvReac Type Severity Reaction Status Date / Time aspirin Allergy "Ever Verified 06/12/18 14:01 since i was a boy i was told not to take aspirin" hydromorphone AdvReac Pt states Verified 06/12/18 14:01 "he feels like a junky" PMH/Surg Hx/FS Hx/Imm Hx Previously Healthy: No Endocrine/Hematology History: Reports: Hx Blood Transfusions, Hx Sickle Cell Disease - Was told had sickle cell at one point but denies, Hx Anemia Denies: Hx Anticoagulant Therapy, Hx Bone Marrow Disease, Hx Diabetes, Hx Thyroid Disease Cardiovascular History: Reports: Hx Angina, Hx Auto Implanted Cardiovert Defib, Hx Congestive Heart Failure, Hx Coronary Artery Disease, Hx Deep Vein Thrombosis , Hx Hypertension, Hx Pacemaker/ICD, Hx Peripheral Vascular Disease, Hx Syncope , Other Cardiovascular Problems/Disorders - cardiomegaly, mitral valve and tricuspid valve repair Denies: Hx Cardiomegaly, Hx Hypercholesterolemia, Hx Myocardial Infarction, Hx Rheumatic Fever, Hx Valvular Heart Disease Respiratory History: Reports: Hx Asthma, Hx Chronic Obstructive Pulmonary Disease (COPD), Hx Pleural Effusion, Hx Pneumonia, Other Respiratory Problems/ Disorders Denies: Hx Pulmonary Edema, Hx Pulmonary Embolism, Hx Sleep Apnea GI History: Reports: Hx Cirrhosis, Hx Gastroesophageal Reflux Disease, Hx Ulcer - peptic ulcer, Other GI Disorders - hep C Denies: Hx Crohn's Disease, Hx Hiatal Hernia, Hx Irritable Bowel, Hx Jaundice History: Reports: Hx Acute Renal Failure, Hx Chronic Renal Failure, Hx Dialysis, Hx Renal Disease, Other Problems/Disorders - end stage renal disease, on dialysis Denies: Hx Kidney Infection, Hx Kidney Stones Musculoskeletal History: Reports: Hx Arthritis, Hx Back Problems - chronic pain , Hx Orthopedic Injury Denies: Hx Rheumatoid Arthritis, Hx Bursitis, Hx Tendonitis, Other Musculoskeletal History Sensory History: Reports: Hx Contacts or Glasses - did not bring however, Hx Glaucoma, Hx Vision Problem Denies: Hx Cataracts, Hx Hearing Aid, Hx Hearing Problem, Other Sensory Impairments Opthamlomology History: Reports: Hx Contacts or Glasses - did not bring however , Hx Glaucoma, Hx Vision Problem Denies: Hx Cataracts, Other Sensory Impairments Neurological History: Reports: Hx Headaches, Hx Migraine, Other Neuro Impairments/Disorders - depression Denies: Hx Dementia, Hx Seizures Psychiatric History: Reports: Hx Anxiety, Hx Depression, Hx Substance Abuse - ETOH Denies: Hx Eating Disorder, Hx Panic Disorder, Hx Suicide Attempt, Hx of Violent Episodes Against Others - Cancer History Hx Chemotherapy: No Hx Radiation Therapy: No Hx Palliative Cancer Treatment: No - Surgical History Surgery Procedure, Year, and Place: HERNIA REPAIR 2012. APPENDECTOMY 2000. LEFT ARM AV FISTULA/CAD - REMOVED. CABG 1 vessel, mitral & tricuspid valve repair March 02, 2014 AT [facility] CONDITIONAL 5 UPTO 3T. POWER PORT. Mitral and tricuspid valve repair Hx Anesthesia Reactions: No - Immunization History Date of Tetanus Vaccine: 2014 Date of Influenza Vaccine: Fall 2015 Hx Pertussis Vaccination: No Immunizations Up to Date: Unable to Obtain/Confirm Infectious Disease History: No Infectious Disease History: Reports: Hx Hepatitis - Hep C, Hx of Known/ Suspected MRSA, History Other Infectious Disease - Hepatitis C Denies: Hx Clostridium Difficile, Hx Human Immunodeficiency Virus (HIV), Hx Shingles, Hx Tuberculosis, Hx Known/Suspected VRE, Hx Known/Suspected VRSA, Traveled Outside the in Last 30 Days - Family History Known Family History: Positive: Cardiac Disease, Hypertension, Other - CVA Family History: R & N/C - Social History Occupation: Employed Full-time Lives: Alone Alcohol Use: None Alcohol Amount: former EtOH abuse Hx Substance Use: Yes Substance Use Type: Reports: Marijuana, Prescribed Substance Use Comment - Amount & Last Used: for pain Hx Tobacco Use: Yes Smoking Status (MU): Former Smoker Type: Cigarettes Amount Used/How Often: 1/2 ppd Length of Time of Smoking/Using Tobacco: 10 years Have You Smoked in the Last Year: No Review of Systems Constitutional: Negative Negative: Fever, Chills, Skin Diaphoresis Negative: Palpitations, Chest Pain Negative: Shortness Of Breath, Cough Positive: Abdominal Pain Genitourinary: Negative Positive: no symptoms reported, see HPI Musculoskeletal: Negative Skin: Negative All Other Systems Reviewed And Are Negative: Yes Physical Exam Triage Information Reviewed: Yes Vital Signs On Initial Exam: Initial Vitals Temp Pulse Resp BP Pulse Ox 98.5 F 77 20 203/144 98 06/11/18 20:49 06/11/18 20:49 06/11/18 20:49 06/11/18 20:49 06/11/18 20:49 Vital Signs Reviewed: Yes Appearance: Positive: Well-Appearing, Well-Nourished Skin: Positive: Warm, Skin Color Reflects Adequate Perfusion Head/Face: Positive: Normal Head/Face Inspection Eyes: Positive: EOMI, KINGS, Conjunctiva Clear Neck: Positive: Supple, No Lymphadenopathy Respiratory/Lung Sounds: Positive: Clear to Auscultation, Breath Sounds Present Cardiovascular: Positive: Normal. Negative: Pulses are Symmetrical in both Upper and Lower Extremities, Leg Edema Left, Leg Edema Right Abdomen Description: Positive: Other: - tenderness to the epigastric pain Musculoskeletal: Positive: Strength/ROM Intact Neurological: Positive: Sensory/Motor Intact, Speech Normal Psychiatric: Positive: Normal, Affect/Mood Appropriate AVPU Assessment: Alert Diagnostics - Vital Signs Vital Signs Temp Pulse Resp BP Pulse Ox 06/12/18 00:54 98 F 81 16 200/100 97 06/12/18 00:10 200/137 06/12/18 00:00 81 98 06/11/18 23:42 78 100 06/11/18 23:40 81 215/166 99 06/11/18 23:10 185/149 06/11/18 23:00 77 100 06/11/18 22:40 77 217/148 100 06/11/18 22:11 81 212/171 97 06/11/18 22:10 81 95 06/11/18 20:49 98.5 F 77 20 203/144 98 - Laboratory Lab Statement: Any lab studies that have been ordered have been reviewed, and results considered in the medical decision making process. Abdominal Pain Fem Course/Dx - Course Course Of Treatment: Patient appears well on arrival, however he is requesting morphine for his upper mid abdominal pain. His BP is elevated, however this is normal for him and states he has not taken his evening medications at this time. Pain is been present times several weeks and has not improved. Currently he has had several workups for abdominal pain as well as chest pain in the very recent past with no findings. He is likely medication seeking. I have offered tramadol and he accepts. He is requesting discharge immediately after distention or medication. - Diagnoses Differential Diagnosis/HQI/PQRI: Pancreatitis, Peptic Ulcer Disease Provider Diagnoses: Abdominal pain, chronic, epigastric Discharge - Sign-Out/Discharge Documenting (check all that apply): Patient Departure - Discharge Plan Condition: Stable Disposition: HOME Referrals: Marielena Vargas MD [Primary Care Provider] - - Billing Disposition and Condition Condition: STABLE Disposition: Home
== END 2018-06-12 00:54 | disposition home or self-care (01) ==
LOC: ED 20:47
DX: R10.13 Epigastric pain (principal); Z87.891 Personal history of nicotine dependence; Z88.6 Allergy status to analgesic agent; Z88.5 Allergy status to narcotic agent
CPT/HCPCS: 99282; A9270-GY

== ENCOUNTER 2018-06-12 13:37 | Emergency (ER) | payer MEDICARE, MEDICAID ==
--- NOTE | 2018-06-12 14:04 | ED ---
Abdominal Pain/Male - HPI Summary HPI Summary: This patient is a 67 year old male BIBA to [facility] with a chief complaint of abd pain since 1 hour HOST AND HOSTESS. The pain is located in the epigastric area. The pain is rated 10/10 in severity. Symptoms aggravated by nothing. Symptoms alleviated by nothing. Patient states the area bulges when laying flat and states he thinks it is a hernia. The patient treated the pain with Neurontin and oxycodone HOST AND HOSTESS to mild relief. Patient additionally reports a lack of appetite and vomiting when eating. - History of Current Complaint Stated Complaint: ABD PAIN Time Seen by Provider: 06/12/18 13:59 Hx Obtained From: Patient Onset/Duration: Still Present Timing: Constant Severity Currently: Severe Pain Intensity: 10 Pain Scale Used: 0-10 Numeric Location: Epigastric Aggravating Factor(s): Nothing Alleviating Factor(s): Nothing Associated Signs And Symptoms: Positive: Decreased Appetite, Vomiting - Allergies/Home Medications Allergies/Adverse Reactions: Allergies Allergy/AdvReac Type Severity Reaction Status Date / Time aspirin Allergy "Ever Verified 06/12/18 14:01 since i was a boy i was told not to take aspirin" hydromorphone AdvReac Pt states Verified 06/12/18 14:01 "he feels like a junky" PMH/Surg Hx/FS Hx/Imm Hx Previously Healthy: No Endocrine/Hematology History: Reports: Hx Blood Transfusions, Hx Sickle Cell Disease - Was told had sickle cell at one point but denies, Hx Anemia Denies: Hx Anticoagulant Therapy, Hx Bone Marrow Disease, Hx Diabetes, Hx Thyroid Disease Cardiovascular History: Reports: Hx Angina, Hx Auto Implanted Cardiovert Defib, Hx Congestive Heart Failure, Hx Coronary Artery Disease, Hx Deep Vein Thrombosis , Hx Hypertension, Hx Pacemaker/ICD, Hx Peripheral Vascular Disease, Hx Syncope , Other Cardiovascular Problems/Disorders - cardiomegaly, mitral valve and tricuspid valve repair Denies: Hx Cardiomegaly, Hx Hypercholesterolemia, Hx Myocardial Infarction, Hx Rheumatic Fever, Hx Valvular Heart Disease Respiratory History: Reports: Hx Asthma, Hx Chronic Obstructive Pulmonary Disease (COPD), Hx Pleural Effusion, Hx Pneumonia, Other Respiratory Problems/ Disorders Denies: Hx Pulmonary Edema, Hx Pulmonary Embolism, Hx Sleep Apnea GI History: Reports: Hx Cirrhosis, Hx Gastroesophageal Reflux Disease, Hx Ulcer - peptic ulcer, Other GI Disorders - hep C Denies: Hx Crohn's Disease, Hx Hiatal Hernia, Hx Irritable Bowel, Hx Jaundice History: Reports: Hx Acute Renal Failure, Hx Chronic Renal Failure, Hx Dialysis, Hx Renal Disease, Other Problems/Disorders - end stage renal disease, on dialysis Denies: Hx Kidney Infection, Hx Kidney Stones Musculoskeletal History: Reports: Hx Arthritis, Hx Back Problems - chronic pain , Hx Orthopedic Injury Denies: Hx Rheumatoid Arthritis, Hx Bursitis, Hx Tendonitis, Other Musculoskeletal History Sensory History: Reports: Hx Contacts or Glasses - did not bring however, Hx Glaucoma, Hx Vision Problem Denies: Hx Cataracts, Other Sensory Impairments Opthamlomology History: Reports: Hx Contacts or Glasses - did not bring however , Hx Glaucoma, Hx Vision Problem Denies: Hx Cataracts, Other Sensory Impairments Neurological History: Reports: Hx Headaches, Hx Migraine, Other Neuro Impairments/Disorders - depression Denies: Hx Dementia, Hx Seizures Psychiatric History: Reports: Hx Anxiety, Hx Depression, Hx Substance Abuse - ETOH Denies: Hx Eating Disorder, Hx Panic Disorder, Hx Suicide Attempt, Hx of Violent Episodes Against Others - Cancer History Hx Chemotherapy: No Hx Radiation Therapy: No Hx Palliative Cancer Treatment: No - Surgical History Surgery Procedure, Year, and Place: HERNIA REPAIR 2012. APPENDECTOMY 2000. LEFT ARM AV FISTULA/CAD - REMOVED. CABG 1 vessel, mitral & tricuspid valve repair March 02, 2014 AT [facility] CONDITIONAL 5 UPTO 3T. POWER PORT. Mitral and tricuspid valve repair Hx Anesthesia Reactions: No - Immunization History Date of Tetanus Vaccine: 2014 Date of Influenza Vaccine: Fall 2015 Infectious Disease History: Reports: Hx Hepatitis - Hep C, Hx of Known/ Suspected MRSA, History Other Infectious Disease - Hepatitis C Denies: Hx Clostridium Difficile, Hx Human Immunodeficiency Virus (HIV), Hx Shingles, Hx Tuberculosis, Hx Known/Suspected VRE, Hx Known/Suspected VRSA - Family History Known Family History: Positive: Cardiac Disease, Hypertension, Other - CVA Family History: R & N/C - Social History Alcohol Use: None Alcohol Amount: former EtOH abuse Hx Substance Use: Yes Substance Use Type: Reports: Marijuana, Prescribed Substance Use Comment - Amount & Last Used: for pain Hx Tobacco Use: Yes Smoking Status (MU): Former Smoker Type: Cigarettes Amount Used/How Often: 1/2 ppd Length of Time of Smoking/Using Tobacco: 10 years Have You Smoked in the Last Year: No Review of Systems Negative: Fever Gastrointestinal: Other - lack of appetite Positive: Abdominal Pain, Vomiting All Other Systems Reviewed And Are Negative: Yes Physical Exam - Summary Physical Exam Summary: General: well-appearing, mild pain distress Skin: warm, color reflects adequate perfusion, dry Head: normal Eyes: EOMI, KINGS ENT: normal Neck: supple, nontender Respiratory: CTA, breath sounds present Cardiovascular: RRR Abdomen: Tender in epigastrium Bowel: hypoactive bowel sounds Musculoskeletal: normal, strength/ROM intact Neurological: sensory/motor intact, A&O x3 Psychological: affect/mood appropriate Triage Information Reviewed: Yes Vital Signs Reviewed: Yes Diagnostics - Laboratory Result Diagrams: 06/12/18 15:20 06/12/18 15:20 Lab Statement: Any lab studies that have been ordered have been reviewed, and results considered in the medical decision making process. - Radiology CXR Xray Interpretation: Positive (See Comments) - CXR reveals, per radiologist, Pulmonary vascular congestion and interstitial edema with associated small pleural effusions without significant interval change. ED physician has reviewed this radiology report. Radiology Interpretation Completed By: Radiologist - CT CT Abd/Pel CT Interpretation: Positive (See Comments) - CT Abd/Pel reveals, per radiologist , IMPRESSION: Chronic bibasilar atelectasis and LEFT lower lobe bronchiectasis. Trace pleural effusions. Unchanged mild splenomegaly. No pathologic process of the alimentary tract evident. Advanced atrophy of the kidneys without change. Negative for hydronephrosis. Atherosclerotic disease. Negative for aortoiliac aneurysm. Renal osteodystrophy. ED physician has reviewed this radiology report. CT Interpretation Completed By: Radiologist - EKG 1419 Cardiac Rate: NL EKG Rhythm: Sinus Rhythm - 79 BPM EKG Interpretation: NSR (79 BPM), incomplete RBBB, LVH, no ectopy Abdominal Pain Fem Course/Dx - Course Course Of Treatment: This patient is a 67 year old male BIBA to [facility] with a chief complaint of abd pain since 1 hour HOST AND HOSTESS. The pain is located in the epigastric area. The pain is rated 10/10 in severity. EKG, CXR, CT Abd/Pel ordered and reviewed. Bloodwork Obtained. Urinalysis Obtained. Medications reviewed. Allergies noted. Test results with no significant abnormalities except for elevated Troponin 0.04. PAIN IMPROVED IN ED. - Diagnoses Provider Diagnoses: Epigastric pain, Umbilical hernia Discharge - Sign-Out/Discharge Documenting (check all that apply): Patient Departure - Discharge Plan Condition: Stable Disposition: HOME Patient Education Materials: Umbilical Hernia (ED), Epigastric Pain (ED) Referrals: Luis Fernando Finch MD [Medical Doctor] - Marielena Vargas MD [Primary Care Provider] - Additional Instructions: FOLLOW UP WITH DR ALARCON, NEPHROLOGY. FOLLOW UP WITH SURGERY FOR FURTHER EVALUATION OF YOU UMBILICAL HERNIA AND EPIGASTRIC PAIN RETURN TO THE EMERGENCY DEPARTMENT FOR ANY WORSENING OF YOUR CONDITION OR QUESTIONS OR CONCERNS. - Billing Disposition and Condition Condition: STABLE Disposition: Home - Attestation Statements Document Initiated by Scribe: Yes Documenting Scribe: Antoine Ricardo Provider For Whom Irvin is Documenting (Include Credential): Rafa Reddy MD Scribe Attestation: Antoine Briones scribed for Rafa Reddy MD on 06/12/18 at 2131. Scribe Documentation Reviewed: Yes Provider Attestation: The documentation as recorded by the Antoine casey accurately reflects the service I personally performed and the decisions made by Rafa washington MD
[2018-06-12] MEDS ORDERED: Morphine VIAL* 4 MG/ML VIAL (1 ml vial) IV ONE (14:09)
[2018-06-12] MEDS ORDERED: Ondansetron INJ* 2 MG/ML VIAL IV ONE ×2 (14:09→18:58)
[2018-06-12] MEDS ORDERED: Morphine INJ* 2 MG/ML 1 ML SYRINGE (TWO MG - NEW SYRINGE VERSION) ONE (14:17)
--- NOTE | 2018-06-12 15:03 | RAD ---
Indication: Epigastric pain. Comparison: May 28, 2018 Technique: Upright AP 1431 hours Report: Moderate prominence of interstitial markings at the mid and lower lung zone similar to the prior exam. Rarefaction of upper lung zone interstitial markings. Small bilateral pleural effusions with proportional basilar atelectasis. Negative for pneumothorax. Median sternotomy wires. RIGHT ventricular level pacemaker lead. Prosthetic AV valves. Mediastinal vascular clips. Cardiomegaly. Prominent ill-defined central pulmonary vasculature. Tip of tunneled LEFT chest wall dual lumen central venous catheter at level of the RIGHT atrium. Negative for free air beneath the diaphragm. IMPRESSION: #. Pulmonary vascular congestion and interstitial edema with associated small pleural effusions without significant interval change.
[2018-06-12] MEDS ORDERED: Morphine INJ* 2 MG/ML 1 ML SYRINGE (TWO MG - NEW SYRINGE VERSION) IV ONE ×3 (15:13→18:17)
[2018-06-12 15:30] LABS: ABS Basophils 0 10^3/ul (0-0.2); ABS Eosinophils 0 10^3/ul (0-0.6); ABS Lymphocytes 0.5 10^3/ul (1.0-4.8); ABS Monocytes 0.5 10^3/ul (0-0.8); ABS Neutrophils 1.8 10^3/ul (1.5-7.7); ABS Nucleated RBC 0 10^3/ul; Eosinophil % 0.8 % (0-6); Hematocrit 39 % (42-52); Hemoglobin 12.6 g/dl (14.0-18.0); Lymphocyte % 16.4 % (25-47); Mean Corpuscular HGB Conc 33 g/dl (31-36); Mean Corpuscular Hemoglobin 29 pg (27-31); Mean Corpuscular Volume 89 fL (80-94); Mean Platelet Volume 9.3 um3 (7.4-10.4); Nucleated Red Blood Cells % 0.1; Platelet Count 88 10^3/ul (150-450); Red Blood Count 4.34 10^6/ul (4.00-5.40); Red Cell Distribution Width 18 % (10.5-15); White Blood Count 2.8 10^3/ul (3.5-10.8)
[2018-06-12 15:42] LABS: INR 1.97 (0.77-1.02)
[2018-06-12 15:47] LABS: EGFR Non-African American 9.6 (>60)
--- NOTE | 2018-06-12 16:20 | RAD ---
INDICATION: Abdominal pain. Previous appendectomy and hernia repair. COMPARISON: April 20, 2018 TECHNIQUE: Multidetector CT images were obtained from the lung bases to the ischial tuberosities. Small volume of enteric contrast. Assessment of the visceral limited without IV contrast. Multiplanar reformation. REPORT: VISUALIZED INFERIOR THORAX: Chronic bibasilar atelectasis and LEFT lower lobe bronchiectasis. Trace pleural effusions. LIVER / GALLBLADDER / PANCREAS / SPLEEN: 16.8 cm cephalocaudal liver. No conspicuous focal liver lesions. No CT abnormality of the gallbladder. The pancreas is poorly visualized without IV contrast limiting assessment without gross abnormality. Mildly enlarged 14.4 cm spleen without change. ALIMENTARY TRACT: Small volume of enteric contrast visualized at the ileum and RIGHT colon. No CT abnormality of the upper GI or small bowel loops evident. Moderate volume of stool at the rectum. No pathologic process of the colon evident. Negative for ascites, free air, or significant hernias. Probable small fat-containing umbilical hernia without compelling inflammatory change. MESENTERIC: Mild diffuse edema. ADRENAL / GENITOURINARY: No adrenal lesions evident. Advanced atrophy of the kidneys without change. Negative for hydronephrosis. Negative for ureteral dilatation. Decompressed urinary bladder limiting assessment without gross abnormality. Symmetric seminal vesicles. RETROPERITONEAL: Negative for lymphadenopathy. VASCULAR: Atherosclerotic plaque of normal diameter abdominal aorta and iliac arteries. Physiologic distention of the IVC. BONES: Diffuse increased density of the visualized osseous structures most consistent with renal osteodystrophy given the clinical context. No suspicious focal osseous lesions evident. SOFT TISSUE: Diffuse subcutaneous edema. IMPRESSION: #. Chronic bibasilar atelectasis and LEFT lower lobe bronchiectasis. Trace pleural effusions. #. Unchanged mild splenomegaly. #. No pathologic process of the alimentary tract evident. #. Advanced atrophy of the kidneys without change. Negative for hydronephrosis. #. Atherosclerotic disease. Negative for aortoiliac aneurysm. #. Renal osteodystrophy.
[2018-06-12 16:43] VITALS: BP 207/139
[2018-06-12] MEDS ORDERED: Ondansetron INJ* 2 MG/ML VIAL ONE (18:51)
== END 2018-06-12 19:31 | disposition home or self-care (01) ==
LOC: ED 13:37
DX: R10.13 Epigastric pain (principal); K42.9 Umbilical hernia without obstruction or gangrene; I45.10 Unspecified right bundle-branch block; R09.89 Other specified symptoms and signs involving the circulatory and respiratory systems; J90 Pleural effusion, not elsewhere classified; J98.11 Atelectasis; J47.9 Bronchiectasis, uncomplicated; N25.0 Renal osteodystrophy; R16.1 Splenomegaly, not elsewhere classified; Z88.6 Allergy status to analgesic agent; Z88.5 Allergy status to narcotic agent; Z87.891 Personal history of nicotine dependence
CPT/HCPCS: 36415; 71045; 74176; 80053; 82550; 82553; 83605; 83690; 83735; 84100; 84484; 85025; 85610; 85730; 86140; 93005; 96374; 96375; 96376; 99282; J2270; J2405

== ENCOUNTER 2018-06-18 01:37 | Emergency (ER) | payer MEDICARE, MEDICAID ==
[2018-06-18] MEDS ORDERED: Albuterol 2.5 MG/3 ML NEB.SOL* (0.083%) INH ONE ×2 (01:56→02:25)
[2018-06-18] MEDS ORDERED: Nitroglycerin 2% OINT* 1 GM PAK TOPICAL ONE (02:28)
--- NOTE | 2018-06-18 02:29 | ED ---
Shortness of Breath - HPI Summary HPI Summary: This patient is a 67 year old M presenting to [facility] with a chief complaint of SOB that began at approximately 0100. The patient rates the pain 8/10 in severity. Symptoms aggravated by exertion. Symptoms alleviated by nothing. Patient reports CP and cough. Patient reports having similar symptoms previously. - History of Current Complaint Chief Complaint: EDShortnessOfBreath Time Seen by Provider: 06/18/18 01:55 Hx Obtained From: Patient Onset/Duration: Sudden Onset, Lasting Hours, Still Present Timing: Constant Current Severity: Severe Dyspnea At: Rest Aggrevating Factors: Other - Exertion Alleviating Factors: Nothing Associated Signs & Symptoms: Cough (Nonproductive), Chest Pain w/Cough - Allergy/Home Medications Allergies/Adverse Reactions: Allergies Allergy/AdvReac Type Severity Reaction Status Date / Time aspirin Allergy "Ever Verified 06/18/18 21:35 since i was a boy i was told not to take aspirin" hydromorphone AdvReac Pt states Verified 06/18/18 21:35 "he feels like a junky" PMH/Surg Hx/FS Hx/Imm Hx Previously Healthy: No Endocrine/Hematology History: Reports: Hx Blood Transfusions, Hx Sickle Cell Disease - Was told had sickle cell at one point but denies, Hx Anemia Denies: Hx Anticoagulant Therapy, Hx Bone Marrow Disease, Hx Diabetes, Hx Thyroid Disease Cardiovascular History: Reports: Hx Angina, Hx Auto Implanted Cardiovert Defib, Hx Congestive Heart Failure, Hx Coronary Artery Disease, Hx Deep Vein Thrombosis , Hx Hypertension, Hx Pacemaker/ICD, Hx Peripheral Vascular Disease, Hx Syncope , Other Cardiovascular Problems/Disorders - cardiomegaly, mitral valve and tricuspid valve repair Denies: Hx Cardiomegaly, Hx Hypercholesterolemia, Hx Myocardial Infarction, Hx Rheumatic Fever, Hx Valvular Heart Disease Respiratory History: Reports: Hx Asthma, Hx Chronic Obstructive Pulmonary Disease (COPD), Hx Pleural Effusion, Hx Pneumonia, Other Respiratory Problems/ Disorders Denies: Hx Pulmonary Edema, Hx Pulmonary Embolism, Hx Sleep Apnea GI History: Reports: Hx Cirrhosis, Hx Gastroesophageal Reflux Disease, Hx Ulcer - peptic ulcer, Other GI Disorders - hep C Denies: Hx Crohn's Disease, Hx Hiatal Hernia, Hx Irritable Bowel, Hx Jaundice History: Reports: Hx Acute Renal Failure, Hx Chronic Renal Failure, Hx Dialysis, Hx Renal Disease, Other Problems/Disorders - end stage renal disease, on dialysis Denies: Hx Kidney Infection, Hx Kidney Stones Musculoskeletal History: Reports: Hx Arthritis, Hx Back Problems - chronic pain , Hx Orthopedic Injury Denies: Hx Rheumatoid Arthritis, Hx Bursitis, Hx Tendonitis, Other Musculoskeletal History Sensory History: Reports: Hx Contacts or Glasses - did not bring however, Hx Glaucoma, Hx Vision Problem Denies: Hx Cataracts, Other Sensory Impairments Opthamlomology History: Reports: Hx Contacts or Glasses - did not bring however , Hx Glaucoma, Hx Vision Problem Denies: Hx Cataracts, Other Sensory Impairments Neurological History: Reports: Hx Headaches, Hx Migraine, Other Neuro Impairments/Disorders - depression Denies: Hx Dementia, Hx Seizures Psychiatric History: Reports: Hx Anxiety, Hx Depression, Hx Substance Abuse - ETOH Denies: Hx Eating Disorder, Hx Panic Disorder, Hx Suicide Attempt, Hx of Violent Episodes Against Others - Cancer History Hx Chemotherapy: No Hx Radiation Therapy: No Hx Palliative Cancer Treatment: No - Surgical History Surgery Procedure, Year, and Place: HERNIA REPAIR 2012. APPENDECTOMY 2000. LEFT ARM AV FISTULA/CAD - REMOVED. CABG 1 vessel, mitral & tricuspid valve repair March 02, 2014 AT [facility] CONDITIONAL 5 UPTO 3T. POWER PORT. Mitral and tricuspid valve repair Hx Anesthesia Reactions: No - Immunization History Date of Tetanus Vaccine: 2014 Date of Influenza Vaccine: Fall 2015 Infectious Disease History: No Infectious Disease History: Reports: Hx Hepatitis - Hep C, Hx of Known/ Suspected MRSA, History Other Infectious Disease - Hepatitis C Denies: Hx Clostridium Difficile, Hx Human Immunodeficiency Virus (HIV), Hx Shingles, Hx Tuberculosis, Hx Known/Suspected VRE, Hx Known/Suspected VRSA, Traveled Outside the in Last 30 Days - Family History Known Family History: Positive: Cardiac Disease, Hypertension, Other - CVA Family History: R & N/C - Social History Occupation: Unemployed Lives: With Family Alcohol Use: None Alcohol Amount: former EtOH abuse Hx Substance Use: Yes Substance Use Type: Reports: Marijuana, Prescribed Substance Use Comment - Amount & Last Used: for pain Hx Tobacco Use: Yes Smoking Status (MU): Former Smoker Type: Cigarettes Amount Used/How Often: 1/2 ppd Length of Time of Smoking/Using Tobacco: 10 years Have You Smoked in the Last Year: No Review of Systems Positive: Chest Pain Positive: Shortness Of Breath, Cough All Other Systems Reviewed And Are Negative: Yes Physical Exam - Summary Physical Exam Summary: Appearance: Well-appearing, Well-nourished, lying in bed comfortably Skin: Warm, dry, no obvious rash Eyes: sclera anicteric, no conjunctival pallor ENT: mucous membranes moist, pharynx appears normal Neck: Supple, nontender, jugular vein distension Respiratory: Clear to auscultation, mild respiratory distress Cardiovascular: Normal S1, S2. No murmurs. Normal distal pulses in tibial and radial bilaterally. Abdomen: Soft, nontender, normal active bowel sounds present Musculoskeletal: Normal, Strength/ROM Intact Neurological: A&Ox3, awake and alert, mentation is normal, speech is fluent and appropriate Psychiatric: affect is normal, does not appear anxious or depressed Triage Information Reviewed: Yes Vital Signs On Initial Exam: Initial Vitals Temp Pulse Resp BP Pulse Ox 98.0 F 84 16 0/0 99 06/18/18 01:40 06/18/18 01:40 06/18/18 01:40 06/18/18 01:40 06/18/18 01:40 Vital Signs Reviewed: Yes Diagnostics - Vital Signs Vital Signs Temp Pulse Resp BP Pulse Ox 06/18/18 02:12 82 20 99 06/18/18 01:40 98.0 F 84 16 0/0 99 - Laboratory Result Diagrams: 06/18/18 02:33 06/18/18 02:33 Lab Statement: Any lab studies that have been ordered have been reviewed, and results considered in the medical decision making process. - Radiology CXR Radiology Interpretation Completed By: ED Physician - CXR reveals, per ED physician, chronic interstitial changes consistent with CHF. - Additional Comments Diagnostic Additional Comments: An EKG taken at 0158 reveals NSR at 83BPM, P waves, QRS complex, and T waves are within normal limits, T waves and intervals are normal, no ischemic changes. This is a normal EKG Course/Dx - Course Course Of Treatment: This is a 67-year-old patient on hemodialysis presents with dyspnea and chest pain. EKG is nonischemic and troponin is normal for the patient. He does not appear to be significantly dyspneic. His chest x-ray possibly shows some increased vascularity compared to a prior film from earlier this month. He is due for dialysis early this morning, and at this point appears to be clinically stable to go to dialysis. - Diagnoses Provider Diagnoses: Dyspnea Discharge - Sign-Out/Discharge Documenting (check all that apply): Patient Departure - Discharge Plan Condition: Good Disposition: HOME Patient Education Materials: Dyspnea (ED) Referrals: Marielena Vargas MD [Primary Care Provider] - Jose Eduardo Dalal MD [Medical Doctor] - - Billing Disposition and Condition Condition: GOOD Disposition: Home - Attestation Statements Document Initiated by Scribe: Yes Documenting Scribe: Ev Bowens Provider For Whom Scribe is Documenting (Include Credential): Zain Ramirez MD Scribe Attestation: Ev Briones, scribed for Zain Ramirez MD on 06/19/18 at 0049. Scribe Documentation Reviewed: Yes Provider Attestation: The documentation as recorded by the Ev casey accurately reflects the service I personally performed and the decisions made by me, Zain Ramirez MD
[2018-06-18 02:50] LABS: ABS Basophils 0 10^3/ul (0-0.2); ABS Eosinophils 0 10^3/ul (0-0.6); ABS Lymphocytes 0.6 10^3/ul (1.0-4.8); ABS Monocytes 0.6 10^3/ul (0-0.8); ABS Neutrophils 1.6 10^3/ul (1.5-7.7); ABS Nucleated RBC 0 10^3/ul; Eosinophil % 1.6 % (0-6); Hematocrit 36 % (42-52); Hemoglobin 11.6 g/dl (14.0-18.0); Lymphocyte % 21.6 % (25-47); Mean Corpuscular HGB Conc 33 g/dl (31-36); Mean Corpuscular Hemoglobin 29 pg (27-31); Mean Corpuscular Volume 89 fL (80-94); Mean Platelet Volume 8.6 um3 (7.4-10.4); Nucleated Red Blood Cells % 0.2; Platelet Count 75 10^3/ul (150-450); Red Blood Count 3.99 10^6/ul (4.00-5.40); Red Cell Distribution Width 18 % (10.5-15); White Blood Count 2.9 10^3/ul (3.5-10.8)
[2018-06-18 03:00] LABS: EGFR Non-African American 7.3 (>60)
[2018-06-18 04:43] VITALS: BP 215/100
--- NOTE | 2018-06-18 07:50 | RAD ---
INDICATION: Dyspnea COMPARISON: June 12, 2018 TECHNIQUE: An AP portable view obtained at 0247 hours is submitted. FINDINGS: Bones/Soft Tissues: There are no acute bony findings. Postoperative changes, tubes, and catheters are unchanged Cardiomediastinal: The cardiac silhouette is enlarged. There is worsening vascular congestion with interstitial and alveolar edema. Lungs: Interstitial and alveolar edema. Pleura: Bilateral pleural effusions with worsening. Other: None IMPRESSION: POST SURGICAL CHANGES. VASCULAR CONGESTION WITH WORSENING.
== END 2018-06-18 04:42 | disposition home or self-care (01) ==
LOC: ED 01:37
DX: R06.00 Dyspnea, unspecified (principal); R07.9 Chest pain, unspecified; Z79.82 Long term (current) use of aspirin; R06.02 Shortness of breath
CPT/HCPCS: 36415; 71045; 80053; 83690; 84484; 85025; 93005; 99282; A9270-GY

== ENCOUNTER 2018-06-18 13:20 | Emergency (ER) | payer MEDICARE, MEDICAID ==
[2018-06-18 18:19] VITALS: BP 127/100
== END 2018-06-18 16:30 | disposition left against medical advice (07) ==
LOC: ED 13:20
DX: M79.1 Myalgia (principal); Z53.21 Procedure and treatment not carried out due to patient leaving prior to being seen by health care provider

== ENCOUNTER 2018-06-18 21:25 | Emergency (ER) | payer MEDICARE, MEDICAID ==
[2018-06-18] MEDS ORDERED: Albuterol 2.5 MG/3 ML NEB.SOL* (0.083%) INH ONE (23:53)
[2018-06-19 00:49] LABS: ABS Basophils 0 10^3/ul (0-0.2); ABS Eosinophils 0 10^3/ul (0-0.6); ABS Lymphocytes 0.6 10^3/ul (1.0-4.8); ABS Monocytes 0.6 10^3/ul (0-0.8); ABS Neutrophils 2.2 10^3/ul (1.5-7.7); ABS Nucleated RBC 0 10^3/ul; Eosinophil % 1.4 % (0-6); Hematocrit 37 % (42-52); Hemoglobin 12.2 g/dl (14.0-18.0); Lymphocyte % 17.6 % (25-47); Mean Corpuscular HGB Conc 33 g/dl (31-36); Mean Corpuscular Hemoglobin 29 pg (27-31); Mean Corpuscular Volume 89 fL (80-94); Mean Platelet Volume 9.6 um3 (7.4-10.4); Nucleated Red Blood Cells % 0.1; Platelet Count 86 10^3/ul (150-450); Red Blood Count 4.16 10^6/ul (4.00-5.40); Red Cell Distribution Width 19 % (10.5-15); White Blood Count 3.5 10^3/ul (3.5-10.8)
[2018-06-19] MEDS ORDERED: hydrALAZINE TAB* 25 MG PO ONE (00:52)
--- NOTE | 2018-06-19 00:55 | ED ---
HPI Chest Pain - HPI Summary HPI Summary: 67-year-old male presents with chest pain for the past 24 hours. He states he had this chest pain when we was evaluated this morning. He states that he went to dialysis. He states the chest pain did not change with dialysis. He states he was given a nitroglycerin patch here which seemed to cause all over body aches. He states that he feels like his muscles are tight. He admits to shortness of breath and feels like he needs a breathing treatment. No bowel pain. No nausea and no vomiting. No fevers. He gets dialysis Thursday, Thursday, Thursday. He states he did take his blood pressure medications before coming here. He has history of ESRD and HTN. - History of Current Complaint Chief Complaint: EDGeneral Time Seen by Provider: 06/18/18 23:35 Pain Intensity: 10 - Additional Pertinent History Primary Care Physician: YARIEL - Allergy/Home Medications Allergies/Adverse Reactions: Allergies Allergy/AdvReac Type Severity Reaction Status Date / Time aspirin Allergy "Ever Verified 06/18/18 21:35 since i was a boy i was told not to take aspirin" hydromorphone AdvReac Pt states Verified 06/18/18 21:35 "he feels like a junky" PMH/Surg Hx/FS Hx/Imm Hx Endocrine/Hematology History: Reports: Hx Blood Transfusions, Hx Sickle Cell Disease - Was told had sickle cell at one point but denies, Hx Anemia Denies: Hx Anticoagulant Therapy, Hx Bone Marrow Disease, Hx Diabetes, Hx Thyroid Disease Cardiovascular History: Reports: Hx Angina, Hx Auto Implanted Cardiovert Defib, Hx Congestive Heart Failure, Hx Coronary Artery Disease, Hx Deep Vein Thrombosis , Hx Hypertension, Hx Pacemaker/ICD, Hx Peripheral Vascular Disease, Hx Syncope , Other Cardiovascular Problems/Disorders - cardiomegaly, mitral valve and tricuspid valve repair Denies: Hx Cardiomegaly, Hx Hypercholesterolemia, Hx Myocardial Infarction, Hx Rheumatic Fever, Hx Valvular Heart Disease Respiratory History: Reports: Hx Asthma, Hx Chronic Obstructive Pulmonary Disease (COPD), Hx Pleural Effusion, Hx Pneumonia, Other Respiratory Problems/ Disorders Denies: Hx Pulmonary Edema, Hx Pulmonary Embolism, Hx Sleep Apnea GI History: Reports: Hx Cirrhosis, Hx Gastroesophageal Reflux Disease, Hx Ulcer - peptic ulcer, Other GI Disorders - hep C Denies: Hx Crohn's Disease, Hx Hiatal Hernia, Hx Irritable Bowel, Hx Jaundice History: Reports: Hx Acute Renal Failure, Hx Chronic Renal Failure, Hx Dialysis, Hx Renal Disease, Other Problems/Disorders - end stage renal disease, on dialysis Denies: Hx Kidney Infection, Hx Kidney Stones Musculoskeletal History: Reports: Hx Arthritis, Hx Back Problems - chronic pain , Hx Orthopedic Injury Denies: Hx Rheumatoid Arthritis, Hx Bursitis, Hx Tendonitis, Other Musculoskeletal History Sensory History: Reports: Hx Contacts or Glasses - did not bring however, Hx Glaucoma, Hx Vision Problem Denies: Hx Cataracts, Other Sensory Impairments Opthamlomology History: Reports: Hx Contacts or Glasses - did not bring however , Hx Glaucoma, Hx Vision Problem Denies: Hx Cataracts, Other Sensory Impairments Neurological History: Reports: Hx Headaches, Hx Migraine, Other Neuro Impairments/Disorders - depression Denies: Hx Dementia, Hx Seizures Psychiatric History: Reports: Hx Anxiety, Hx Depression, Hx Substance Abuse - ETOH Denies: Hx Eating Disorder, Hx Panic Disorder, Hx Suicide Attempt, Hx of Violent Episodes Against Others - Cancer History Hx Chemotherapy: No Hx Radiation Therapy: No Hx Palliative Cancer Treatment: No - Surgical History Surgery Procedure, Year, and Place: HERNIA REPAIR 2012. APPENDECTOMY 2000. LEFT ARM AV FISTULA/CAD - REMOVED. CABG 1 vessel, mitral & tricuspid valve repair March 02, 2014 AT [facility] CONDITIONAL 5 UPTO 3T. POWER PORT. Mitral and tricuspid valve repair Hx Anesthesia Reactions: No - Immunization History Date of Tetanus Vaccine: 2014 Date of Influenza Vaccine: Fall 2015 Infectious Disease History: No Infectious Disease History: Reports: Hx Hepatitis - Hep C, Hx of Known/ Suspected MRSA, History Other Infectious Disease - Hepatitis C Denies: Hx Clostridium Difficile, Hx Human Immunodeficiency Virus (HIV), Hx Shingles, Hx Tuberculosis, Hx Known/Suspected VRE, Hx Known/Suspected VRSA, Traveled Outside the [place] in Last 30 Days - Family History Known Family History: Positive: Cardiac Disease, Hypertension, Other - CVA Family History: R & N/C - Social History Alcohol Use: None Alcohol Amount: former EtOH abuse Hx Substance Use: Yes Substance Use Type: Reports: Marijuana, Prescribed Substance Use Comment - Amount & Last Used: for pain Hx Tobacco Use: Yes Smoking Status (MU): Former Smoker Type: Cigarettes Amount Used/How Often: 1/2 ppd Length of Time of Smoking/Using Tobacco: 10 years Have You Smoked in the Last Year: No Review of Systems Negative: Fever Positive: Chest Pain Positive: Shortness Of Breath. Negative: Cough Negative: Abdominal Pain Positive: Myalgia - generalized body aches All Other Systems Reviewed And Are Negative: Yes Physical Exam Triage Information Reviewed: Yes Vital Signs On Initial Exam: Initial Vitals Temp Pulse Resp BP Pulse Ox 98.2 F 79 20 174/131 99 06/18/18 21:32 06/18/18 21:32 06/18/18 21:32 06/18/18 21:32 06/18/18 21:32 Vital Signs Reviewed: Yes Appearance: Positive: Well-Appearing Skin: Positive: Warm, Dry Head/Face: Positive: Normal Head/Face Inspection Eyes: Positive: Normal, Conjunctiva Clear ENT: Positive: Pharynx normal Respiratory/Lung Sounds: Positive: Clear to Auscultation, Breath Sounds Present , Other - reproducible chest pain Cardiovascular: Positive: Normal, RRR Musculoskeletal: Positive: Normal Neurological: Positive: Normal Psychiatric: Positive: Normal Diagnostics - Vital Signs Vital Signs Temp Pulse Resp BP Pulse Ox 06/19/18 00:36 78 100 06/19/18 00:13 81 199/136 97 06/19/18 00:12 83 97 06/19/18 00:10 195/131 06/18/18 23:43 77 195/142 98 06/18/18 23:38 76 96 06/18/18 23:13 77 192/137 98 06/18/18 23:00 78 99 06/18/18 22:43 80 207/143 99 06/18/18 21:32 98.2 F 79 20 174/131 99 - Laboratory Lab Results: Lab Results 06/19/18 06/19/18 Range/Units 00:19 00:19 WBC 3.5 (3.5-10.8) 10^3/ul RBC 4.16 (4.00-5.40) 10^6/ul Hgb 12.2 L (14.0-18.0) g/dl Hct 37 L (42-52) % MCV 89 (80-94) fL MCH 29 (27-31) pg MCHC 33 (31-36) g/dl RDW 19 H (10.5-15) % Plt Count 86 L (150-450) 10^3/ul MPV 9.6 (7.4-10.4) um3 Neut % (Auto) 62.0 (38-83) % Lymph % (Auto) 17.6 L (25-47) % Stone % (Auto) 17.8 H (0-7) % Eos % (Auto) 1.4 (0-6) % Baso % (Auto) 1.2 (0-2) % Absolute Neuts (auto) 2.2 (1.5-7.7) 10^3/ul Absolute Lymphs (auto) 0.6 L (1.0-4.8) 10^3/ul Absolute Monos (auto) 0.6 (0-0.8) 10^3/ul Absolute Eos (auto) 0 (0-0.6) 10^3/ul Absolute Basos (auto) 0 (0-0.2) 10^3/ul Absolute Nucleated RBC 0 10^3/ul Nucleated RBC % 0.1 Sodium 136 (135-145) mmol/L Potassium 4.4 (3.5-5.0) mmol/L Chloride 93 L (101-111) mmol/L Carbon Dioxide 36 H (22-32) mmol/L Anion Gap 7 (2-11) mmol/L BUN 15 (6-24) mg/dL Creatinine 5.29 H (0.67-1.17) mg/dL Est GFR ( Amer) 13.3 (>60) Est GFR (Non-Af Amer) 11.0 (>60) BUN/Creatinine Ratio 2.8 L (8-20) Glucose 99 (70-100) mg/dL Calcium 9.9 (8.6-10.3) mg/dL Total Bilirubin 1.40 H (0.2-1.0) mg/dL AST 34 (13-39) U/L ALT 19 (7-52) U/L Alkaline Phosphatase 62 (34-104) U/L Troponin I 0.06 H* (<0.04) ng/mL Total Protein 7.9 (6.4-8.9) g/dL Albumin 4.3 (3.2-5.2) g/dL Globulin 3.6 (2-4) g/dL Albumin/Globulin Ratio 1.2 (1-3) Result Diagrams: 06/19/18 00:19 06/19/18 00:19 Lab Statement: Any lab studies that have been ordered have been reviewed, and results considered in the medical decision making process. - EKG No standard instances Cardiac Rate: NL EKG Rhythm: Sinus Rhythm EKG Interpretation: sinus rhythm with lvh criteria EKG Comparison: No Significant Change Re-Evaluation - Re-Evaluation First Eval Re-Evaluation Time: 01:25 Change: Improved Comment: feeling better after treatment Chest Pain Course/Dx - Course Course Of Treatment: 67-year-old male presents with chest pain for the past 24 hours. He states he had this chest pain when we was evaluated this morning. He states that he went to dialysis. He states the chest pain did not change with dialysis. He states he was given a nitroglycerin patch here which seemed to cause all over body aches. He states that he feels like his muscles are tight. He admits to shortness of breath and feels like he needs a breathing treatment. No bowel pain. No nausea and no vomiting. No fevers. He gets dialysis Thursday, Thursday, Thursday. He states he did take his blood pressure medications before coming here. patient is a frequent visitor here for similiar compliants. labs wbc normal. chest xray earlier today normal. ekg same as previous. troponin at .06 which is where it has been. since has had similiar labs as earlier will discharge. gave hydrazaline for blood pressure. told to follow up with primary as blood pressure continues to be elevated everytime is here. when went to discharge patient states did have one episode of diarrhea here. patient denied any blood in stool and abd soft nontender and wbc normal so do not think anything acute occuring at thsi time. patient understand and agrees with plan. - Chest Pain Differential Diagnosis/HQI/PQRI: Acute OK, Chest Wall, Lower Respiratory Infection - Diagnoses Provider Diagnoses: Chest pain, Hypertension Discharge - Sign-Out/Discharge Documenting (check all that apply): Patient Departure - Discharge Plan Condition: Good Disposition: HOME Patient Education Materials: Hypertension (ED) Referrals: Marielena Vargas MD [Primary Care Provider] - Additional Instructions: Follow up with primary within 5 days about blood pressure Take blood pressure medication as prescribed do not miss a dose Take tyenlol every 6 hours as needed for pain Return to ED if develop any new or worsening symptoms - Billing Disposition and Condition Condition: GOOD Disposition: Home
[2018-06-19 01:24] VITALS: BP 204/143
== END 2018-06-19 01:00 | disposition home or self-care (01) ==
LOC: ED 21:25
DX: R07.9 Chest pain, unspecified (principal); I10 Essential (primary) hypertension; N18.6 End stage renal disease; Z79.82 Long term (current) use of aspirin; Z87.891 Personal history of nicotine dependence; R06.00 Dyspnea, unspecified; R06.02 Shortness of breath; G89.29 Other chronic pain; R10.9 Unspecified abdominal pain
CPT/HCPCS: 36415; 80053; 84484; 85025; 93005; 99283; A9270-GY

== ENCOUNTER 2018-06-19 21:07 | Emergency (ER) | payer MEDICARE, MEDICAID ==
--- NOTE | 2018-06-19 21:50 | ED ---
Abdominal Pain/Male - HPI Summary HPI Summary: Pt is a 67 year old male presenting to the ED with a chief complaint of recurrent pain in the left side of his abd, which he thinks is due to pancreatitis. The pt has been here numerous times with the same complaint, has been evaluated for pancreatitis, and has not had pancreatitis. - History of Current Complaint Chief Complaint: EDAbdPain Stated Complaint: RIB PAIN Time Seen by Provider: 06/19/18 21:24 Hx Obtained From: Patient Onset/Duration: Sudden Onset, Still Present Timing: Constant Severity Initially: Moderate Severity Currently: Moderate Pain Intensity: 10 Pain Scale Used: 0-10 Numeric Location: Other - L side abd Radiates: No Aggravating Factor(s): Nothing Alleviating Factor(s): Nothing - Allergies/Home Medications Allergies/Adverse Reactions: Allergies Allergy/AdvReac Type Severity Reaction Status Date / Time aspirin Allergy "Ever Verified 06/19/18 21:17 since i was a boy i was told not to take aspirin" hydromorphone AdvReac Pt states Verified 06/19/18 21:17 "he feels like a junky" PMH/Surg Hx/FS Hx/Imm Hx Previously Healthy: No Endocrine/Hematology History: Reports: Hx Blood Transfusions, Hx Sickle Cell Disease - Was told had sickle cell at one point but denies, Hx Anemia Denies: Hx Anticoagulant Therapy, Hx Bone Marrow Disease, Hx Diabetes, Hx Thyroid Disease Cardiovascular History: Reports: Hx Angina, Hx Auto Implanted Cardiovert Defib, Hx Congestive Heart Failure, Hx Coronary Artery Disease, Hx Deep Vein Thrombosis , Hx Hypertension, Hx Pacemaker/ICD, Hx Peripheral Vascular Disease, Hx Syncope , Other Cardiovascular Problems/Disorders - cardiomegaly, mitral valve and tricuspid valve repair Denies: Hx Cardiomegaly, Hx Hypercholesterolemia, Hx Myocardial Infarction, Hx Rheumatic Fever, Hx Valvular Heart Disease Respiratory History: Reports: Hx Asthma, Hx Chronic Obstructive Pulmonary Disease (COPD), Hx Pleural Effusion, Hx Pneumonia, Other Respiratory Problems/ Disorders Denies: Hx Pulmonary Edema, Hx Pulmonary Embolism, Hx Sleep Apnea GI History: Reports: Hx Cirrhosis, Hx Gastroesophageal Reflux Disease, Hx Ulcer - peptic ulcer, Other GI Disorders - hep C Denies: Hx Crohn's Disease, Hx Hiatal Hernia, Hx Irritable Bowel, Hx Jaundice History: Reports: Hx Acute Renal Failure, Hx Chronic Renal Failure, Hx Dialysis, Hx Renal Disease, Other Problems/Disorders - end stage renal disease, on dialysis Denies: Hx Kidney Infection, Hx Kidney Stones Musculoskeletal History: Reports: Hx Arthritis, Hx Back Problems - chronic pain , Hx Orthopedic Injury Denies: Hx Rheumatoid Arthritis, Hx Bursitis, Hx Tendonitis, Other Musculoskeletal History Sensory History: Reports: Hx Contacts or Glasses - did not bring however, Hx Glaucoma, Hx Vision Problem Denies: Hx Cataracts, Other Sensory Impairments Opthamlomology History: Reports: Hx Contacts or Glasses - did not bring however , Hx Glaucoma, Hx Vision Problem Denies: Hx Cataracts, Other Sensory Impairments Neurological History: Reports: Hx Headaches, Hx Migraine, Other Neuro Impairments/Disorders - depression Denies: Hx Dementia, Hx Seizures Psychiatric History: Reports: Hx Anxiety, Hx Depression, Hx Substance Abuse - ETOH Denies: Hx Eating Disorder, Hx Panic Disorder, Hx Suicide Attempt, Hx of Violent Episodes Against Others - Cancer History Hx Chemotherapy: No Hx Radiation Therapy: No Hx Palliative Cancer Treatment: No - Surgical History Surgery Procedure, Year, and Place: HERNIA REPAIR 2012. APPENDECTOMY 2000. LEFT ARM AV FISTULA/CAD - REMOVED. CABG 1 vessel, mitral & tricuspid valve repair March 02, 2014 AT [facility] CONDITIONAL 5 UPTO 3T. POWER PORT. Mitral and tricuspid valve repair Hx Anesthesia Reactions: No - Immunization History Date of Tetanus Vaccine: unk Date of Influenza Vaccine: unk Infectious Disease History: No Infectious Disease History: Reports: Hx Hepatitis - Hep C, Hx of Known/ Suspected MRSA, History Other Infectious Disease - Hepatitis C Denies: Hx Clostridium Difficile, Hx Human Immunodeficiency Virus (HIV), Hx Shingles, Hx Tuberculosis, Hx Known/Suspected VRE, Hx Known/Suspected VRSA, Traveled Outside the in Last 30 Days - Family History Known Family History: Positive: Cardiac Disease, Hypertension, Other - CVA Family History: R & N/C - Social History Alcohol Use: None Alcohol Amount: former EtOH abuse Hx Substance Use: Yes Substance Use Type: Reports: Marijuana, Prescribed Substance Use Comment - Amount & Last Used: for pain Hx Tobacco Use: Yes Smoking Status (MU): Former Smoker Type: Cigarettes Amount Used/How Often: 1/2 ppd Length of Time of Smoking/Using Tobacco: 10 years Have You Smoked in the Last Year: No Review of Systems Negative: Fever Positive: Abdominal Pain All Other Systems Reviewed And Are Negative: Yes Physical Exam - Summary Physical Exam Summary: Appearance: Well-appearing, Well-nourished, lying in bed comfortable Skin: Warm, dry, no obvious rash Eyes: sclera anicteric, no conjunctival pallor ENT: mucous membranes moist Neck: deferred Respiratory: No signs of respiratory distress Cardiovascular: Appears well perfused, pulses are nml Abdomen: deferred Musculoskeletal: Moving all 4 extremities without obvious discomfort Neurological: Awake and alert, mentation is normal, speech is fluent and appropriate Psychiatric: affect is normal, does not appear anxious or depressed Triage Information Reviewed: Yes Vital Signs On Initial Exam: Initial Vitals Temp Pulse Resp BP Pulse Ox 98.1 F 82 20 206/161 100 06/19/18 21:16 06/19/18 21:16 06/19/18 21:16 06/19/18 21:16 06/19/18 21:16 Vital Signs Reviewed: Yes Diagnostics - Vital Signs Vital Signs Temp Pulse Resp BP Pulse Ox 06/19/18 21:16 98.1 F 82 20 206/161 100 - Laboratory Lab Statement: Any lab studies that have been ordered have been reviewed, and results considered in the medical decision making process. Abdominal Pain Fem Course/Dx - Course Course Of Treatment: This is an unfortunate chronically ill man who has been coming to the emergency room quite frequently with somatic pain complaints generally in the chest or abdomen and occasionally headache. While he thinks he has pancreatitis, his lipase level is normal, and on review of his prior visits CT scans and blood analysis have failed to demonstrate any evidence of this. 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 - Diagnoses Provider Diagnoses: Chronic abdominal pain Discharge - Sign-Out/Discharge Documenting (check all that apply): Patient Departure - Discharge Plan Condition: Stable Disposition: HOME Patient Education Materials: Chronic Pain (ED) Referrals: Marielena Vargas MD [Primary Care Provider] - Additional Instructions: I would encourage you to discuss your problem with chronic pain with your PCP. Unfortunately there is very little we can do for this problem in the Emergency Department. - Attestation Statements Document Initiated by Scribe: Yes Documenting Scribe: Bernarda Arteaga Provider For Whom Irvin is Documenting (Include Credential): Zain Ramirez MD. Scribe Attestation: I, isabella Salcedoibed for Zain Ramirez MD. on 06/19/18 at 225.
[2018-06-19 23:09] VITALS: BP 180/99
== END 2018-06-19 23:08 | disposition home or self-care (01) ==
LOC: ED 21:07
DX: G89.29 Other chronic pain (principal); R10.9 Unspecified abdominal pain; Z87.891 Personal history of nicotine dependence
CPT/HCPCS: 36415; 83690; 99282

== ENCOUNTER 2018-06-23 09:55 | Emergency (ER) | payer MEDICARE, MEDICAID ==
[2018-06-23 13:02] VITALS: BP 201/139
--- NOTE | 2018-06-23 14:27 | ED ---
Lower Extremity - HPI Summary HPI Summary: Patient is a 67-year-old male who is a frequent visitor to the ED presenting with bilateral leg pain which began this morning prior to dialysis. He states he has never had this type of pain before and rates it 10/10, constant and throbbing. He denies any chest pain or shortness of breath on this date. He states he does not have pain medications at home and is currently trying to work with his primary and Dr. Ng. He denies any specific area of pain, just says the pain is diffuse all over. He also endorses swelling, but denies any difference in weight over the past several days. - History of Current Complaint Chief Complaint: EDExtremityLower Stated Complaint: LEG PAIN Time Seen by Provider: 06/23/18 10:01 Hx Obtained From: Patient Onset of Pain: Hours Onset/Duration: Hours Severity Initially: Severe Severity Currently: Severe Pain Intensity: 6 Pain Scale Used: 0-10 Numeric Timing: Constant Location: Is Discrete @ - bilateral lower extremities Associated Signs And Symptoms: Negative: Swelling, Redness, Bruising, Weakness Aggravating Factor(s): Standing, Ambulation Alleviating Factor(s): Nothing Able to Bear Weight: Yes - Allergies/Home Medications Allergies/Adverse Reactions: Allergies Allergy/AdvReac Type Severity Reaction Status Date / Time aspirin Allergy "Ever Verified 06/19/18 21:17 since i was a boy i was told not to take aspirin" hydromorphone AdvReac Pt states Verified 06/19/18 21:17 "he feels like a junky" PMH/Surg Hx/FS Hx/Imm Hx Previously Healthy: No Endocrine/Hematology History: Reports: Hx Blood Transfusions, Hx Sickle Cell Disease - Was told had sickle cell at one point but denies, Hx Anemia Denies: Hx Anticoagulant Therapy, Hx Bone Marrow Disease, Hx Diabetes, Hx Thyroid Disease Cardiovascular History: Reports: Hx Angina, Hx Auto Implanted Cardiovert Defib, Hx Congestive Heart Failure, Hx Coronary Artery Disease, Hx Deep Vein Thrombosis , Hx Hypertension, Hx Pacemaker/ICD, Hx Peripheral Vascular Disease, Hx Syncope , Other Cardiovascular Problems/Disorders - cardiomegaly, mitral valve and tricuspid valve repair Denies: Hx Cardiomegaly, Hx Hypercholesterolemia, Hx Myocardial Infarction, Hx Rheumatic Fever, Hx Valvular Heart Disease Respiratory History: Reports: Hx Asthma, Hx Chronic Obstructive Pulmonary Disease (COPD), Hx Pleural Effusion, Hx Pneumonia, Other Respiratory Problems/ Disorders Denies: Hx Pulmonary Edema, Hx Pulmonary Embolism, Hx Sleep Apnea GI History: Reports: Hx Cirrhosis, Hx Gastroesophageal Reflux Disease, Hx Ulcer - peptic ulcer, Other GI Disorders - hep C Denies: Hx Crohn's Disease, Hx Hiatal Hernia, Hx Irritable Bowel, Hx Jaundice History: Reports: Hx Acute Renal Failure, Hx Chronic Renal Failure, Hx Dialysis, Hx Renal Disease, Other Problems/Disorders - end stage renal disease, on dialysis Denies: Hx Kidney Infection, Hx Kidney Stones Musculoskeletal History: Reports: Hx Arthritis, Hx Back Problems - chronic pain , Hx Orthopedic Injury Denies: Hx Rheumatoid Arthritis, Hx Bursitis, Hx Tendonitis, Other Musculoskeletal History Sensory History: Reports: Hx Contacts or Glasses - did not bring however, Hx Glaucoma, Hx Vision Problem Denies: Hx Cataracts, Other Sensory Impairments Opthamlomology History: Reports: Hx Contacts or Glasses - did not bring however , Hx Glaucoma, Hx Vision Problem Denies: Hx Cataracts, Other Sensory Impairments Neurological History: Reports: Hx Headaches, Hx Migraine, Other Neuro Impairments/Disorders - depression Denies: Hx Dementia, Hx Seizures Psychiatric History: Reports: Hx Anxiety, Hx Depression, Hx Substance Abuse - ETOH Denies: Hx Eating Disorder, Hx Panic Disorder, Hx Suicide Attempt, Hx of Violent Episodes Against Others - Cancer History Hx Chemotherapy: No Hx Radiation Therapy: No Hx Palliative Cancer Treatment: No - Surgical History Surgery Procedure, Year, and Place: HERNIA REPAIR 2012. APPENDECTOMY 2000. LEFT ARM AV FISTULA/CAD - REMOVED. CABG 1 vessel, mitral & tricuspid valve repair March 02, 2014 AT [facility] CONDITIONAL 5 UPTO 3T. POWER PORT. Mitral and tricuspid valve repair Hx Anesthesia Reactions: No - Immunization History Date of Tetanus Vaccine: unk Date of Influenza Vaccine: unk Hx Pertussis Vaccination: No Immunizations Up to Date: Yes Infectious Disease History: No Infectious Disease History: Reports: Hx Hepatitis - Hep C, Hx of Known/ Suspected MRSA, History Other Infectious Disease - Hepatitis C Denies: Hx Clostridium Difficile, Hx Human Immunodeficiency Virus (HIV), Hx Shingles, Hx Tuberculosis, Hx Known/Suspected VRE, Hx Known/Suspected VRSA, Traveled Outside the in Last 30 Days - Family History Known Family History: Positive: Cardiac Disease, Hypertension, Other - CVA Family History: R & N/C - Social History Occupation: Unemployed Lives: Alone Alcohol Use: None Alcohol Amount: former EtOH abuse Hx Substance Use: Yes Substance Use Type: Reports: Marijuana, Prescribed Substance Use Comment - Amount & Last Used: for pain Hx Tobacco Use: Yes Smoking Status (MU): Former Smoker Type: Cigarettes Amount Used/How Often: 1/2 ppd Length of Time of Smoking/Using Tobacco: 10 years Have You Smoked in the Last Year: No Review of Systems Negative: Fever, Chills, Fatigue, Skin Diaphoresis Negative: Palpitations, Chest Pain Negative: Shortness Of Breath, Cough Negative: Abdominal Pain, Vomiting, Diarrhea, Nausea Genitourinary: Negative Positive: no symptoms reported, see HPI Positive: Other - bilateral lower extremity pain Negative: Rash, Bruising Neurological: Negative All Other Systems Reviewed And Are Negative: Yes Physical Exam Triage Information Reviewed: Yes Vital Signs On Initial Exam: Initial Vitals Temp Pulse Resp BP Pulse Ox 98.9 F 87 16 190/121 95 06/23/18 09:59 06/23/18 09:59 06/23/18 09:59 06/23/18 09:59 06/23/18 09:59 Vital Signs Reviewed: Yes Appearance: Positive: Pain Distress Skin: Positive: Skin Color Reflects Adequate Perfusion Head/Face: Positive: Normal Head/Face Inspection Eyes: Positive: EOMI, KINGS, Conjunctiva Clear Neck: Positive: Supple, No Lymphadenopathy Respiratory/Lung Sounds: Positive: Clear to Auscultation, Breath Sounds Present Cardiovascular: Positive: RRR, Pulses are Symmetrical in both Upper and Lower Extremities. Negative: Leg Edema Left, Leg Edema Right Musculoskeletal: Positive: Pain @ - bilateral lower extremities just inferior to the hip joints extending through the legs - worse to the feet Neurological: Positive: Speech Normal Psychiatric: Positive: Normal, Affect/Mood Appropriate AVPU Assessment: Alert Diagnostics - Vital Signs Vital Signs Temp Pulse Resp BP Pulse Ox 06/23/18 13:01 97.4 F 110 20 201/139 96 06/23/18 09:59 98.9 F 87 16 190/121 95 - Laboratory Lab Statement: Any lab studies that have been ordered have been reviewed, and results considered in the medical decision making process. Lower Extremity Course/Dx - Course Course Of Treatment: During the course of treatment, this patient is evaluated for bilateral lower extremity pain and edema. On physical examination, there is very little edema noted and appears to be at baseline for this patient. Recently from dialysis on this date. He is requesting morphine 4 mg on arrival. On physical examination, he has diffuse tenderness to the bilateral lower extremities, which is worse in the feet and ankles. Denies any trauma. Remains ambulatory with his walker at baseline. 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 Although, he states he has never had this before. I have discussed this case with Dr. Mccracken who also agrees to see patient. I believe he needs to have a specialiazed patient care protocol in place as in the previous visits after receiving 4mg morphine, he tends to request discharge. This appears to be his chief concern in all his visits rather than another ailment. I have discussed with patient at length how we will need to discuss this case further with Dr. Ng as well as his PCP Marielena Vargas. With more parameters in place, I feel he will be better cared for as an outpatient than his frequent requests for morphine and presentations to the ED. He is upset as he is not getting morphine, although the RNLuis Fernando and I have observed him acting comfortable when RN or provider is not in room. He is discharged without medications given. - Diagnoses Provider Diagnoses: Bilateral lower extremity pain Discharge - Sign-Out/Discharge Documenting (check all that apply): Patient Departure - Discharge Plan Condition: Stable Disposition: HOME Referrals: Marielena Vargas MD [Primary Care Provider] - - Billing Disposition and Condition Condition: STABLE Disposition: Home
== END 2018-06-23 13:01 | disposition home or self-care (01) ==
LOC: ED 09:55
DX: M79.605 Pain in left leg (principal); M79.604 Pain in right leg
CPT/HCPCS: 99282

== ENCOUNTER 2018-06-28 10:03 | Emergency (ER) | payer MEDICARE, MEDICAID ==
[2018-06-28] MEDS ORDERED: Albuterol/Ipratropium NEB.SOL* Albuterol 2.5 MG/Ipratropium 0.5 MG 3 ML INH ONE (11:05)
[2018-06-28 11:55] VITALS: BP 184/142
--- NOTE | 2018-06-28 12:23 | ED ---
Lower Extremity - HPI Summary HPI Summary: Patient is a 67-year-old male who is a frequent visitor to the ED with a complicated chronic list of complaints. Today he arrives from dialysis with bilateral foot swelling and pain. He states this has been happening for many years, but intermittently will cause pain. He was seen for same twice in the last week. He was told this was peripheral neuropathy and edema. He states his at home medication of oxycodone does not improve the pain. Denies any chest pain or shortness of breath on this date. He states he would like a breathing treatment while in the ED. - History of Current Complaint Chief Complaint: EDExtremityLower Stated Complaint: PAIN IN LEGS Time Seen by Provider: 06/28/18 10:15 Hx Obtained From: Patient Onset of Pain: Minutes Onset/Duration: Minutes Severity Initially: Moderate Severity Currently: Moderate Pain Intensity: 6 Pain Scale Used: 0-10 Numeric Timing: Constant Location: Is Discrete @ - bilateral lower exremity Associated Signs And Symptoms: Positive: Swelling. Negative: Redness, Bruising , Fever, Weakness Aggravating Factor(s): Standing, Ambulation Alleviating Factor(s): Rest Able to Bear Weight: Yes - Risk Factors Gout Risk Factors: Male, Diabetes, Hypertension, Renal Disease, Hyperlipidemia, Alcohol Abuse, Psoriasis, Peripherial Vascular Disease Septic Arthritis Risk Factor: Extremes of Age - Allergies/Home Medications Allergies/Adverse Reactions: Allergies Allergy/AdvReac Type Severity Reaction Status Date / Time aspirin Allergy "Ever Verified 06/28/18 10:10 since i was a boy i was told not to take aspirin" hydromorphone AdvReac Pt states Verified 06/28/18 10:10 "he feels like a junky" PMH/Surg Hx/FS Hx/Imm Hx Previously Healthy: No Endocrine/Hematology History: Reports: Hx Blood Transfusions, Hx Sickle Cell Disease - Was told had sickle cell at one point but denies, Hx Anemia Denies: Hx Anticoagulant Therapy, Hx Bone Marrow Disease, Hx Diabetes, Hx Thyroid Disease Cardiovascular History: Reports: Hx Angina, Hx Auto Implanted Cardiovert Defib, Hx Congestive Heart Failure, Hx Coronary Artery Disease, Hx Deep Vein Thrombosis , Hx Hypertension, Hx Pacemaker/ICD, Hx Peripheral Vascular Disease, Hx Syncope , Other Cardiovascular Problems/Disorders - cardiomegaly, mitral valve and tricuspid valve repair Denies: Hx Cardiomegaly, Hx Hypercholesterolemia, Hx Myocardial Infarction, Hx Rheumatic Fever, Hx Valvular Heart Disease Respiratory History: Reports: Hx Asthma, Hx Chronic Obstructive Pulmonary Disease (COPD), Hx Pleural Effusion, Hx Pneumonia, Other Respiratory Problems/ Disorders Denies: Hx Pulmonary Edema, Hx Pulmonary Embolism, Hx Sleep Apnea GI History: Reports: Hx Cirrhosis, Hx Gastroesophageal Reflux Disease, Hx Ulcer - peptic ulcer, Other GI Disorders - hep C Denies: Hx Crohn's Disease, Hx Hiatal Hernia, Hx Irritable Bowel, Hx Jaundice History: Reports: Hx Acute Renal Failure, Hx Chronic Renal Failure, Hx Dialysis, Hx Renal Disease, Other Problems/Disorders - end stage renal disease, on dialysis Denies: Hx Kidney Infection, Hx Kidney Stones Musculoskeletal History: Reports: Hx Arthritis, Hx Back Problems - chronic pain , Hx Orthopedic Injury Denies: Hx Rheumatoid Arthritis, Hx Bursitis, Hx Tendonitis, Other Musculoskeletal History Sensory History: Reports: Hx Contacts or Glasses - did not bring however, Hx Glaucoma, Hx Vision Problem Denies: Hx Cataracts, Other Sensory Impairments Opthamlomology History: Reports: Hx Contacts or Glasses - did not bring however , Hx Glaucoma, Hx Vision Problem Denies: Hx Cataracts, Other Sensory Impairments Neurological History: Reports: Hx Headaches, Hx Migraine, Other Neuro Impairments/Disorders - depression Denies: Hx Dementia, Hx Seizures Psychiatric History: Reports: Hx Anxiety, Hx Depression, Hx Substance Abuse - ETOH Denies: Hx Eating Disorder, Hx Panic Disorder, Hx Suicide Attempt, Hx of Violent Episodes Against Others - Cancer History Hx Chemotherapy: No Hx Radiation Therapy: No Hx Palliative Cancer Treatment: No - Surgical History Surgery Procedure, Year, and Place: HERNIA REPAIR 2012. APPENDECTOMY 2000. LEFT ARM AV FISTULA/CAD - REMOVED. CABG 1 vessel, mitral & tricuspid valve repair March 02, 2014 AT [facility] CONDITIONAL 5 UPTO 3T. POWER PORT. Mitral and tricuspid valve repair Hx Anesthesia Reactions: No - Immunization History Date of Tetanus Vaccine: unk Date of Influenza Vaccine: unk Hx Pertussis Vaccination: No Immunizations Up to Date: Yes Infectious Disease History: No Infectious Disease History: Reports: Hx Hepatitis - Hep C, Hx of Known/ Suspected MRSA, History Other Infectious Disease - Hepatitis C Denies: Hx Clostridium Difficile, Hx Human Immunodeficiency Virus (HIV), Hx Shingles, Hx Tuberculosis, Hx Known/Suspected VRE, Hx Known/Suspected VRSA, Traveled Outside the [place] in Last 30 Days - Family History Known Family History: Positive: Cardiac Disease, Hypertension, Other - CVA Family History: R & N/C - Social History Occupation: Unemployed Lives: Alone Alcohol Use: None Alcohol Amount: former EtOH abuse Hx Substance Use: Yes Substance Use Type: Reports: Prescribed Substance Use Comment - Amount & Last Used: for pain, no longer takes marijuana Hx Tobacco Use: Yes Smoking Status (MU): Former Smoker Type: Cigarettes Amount Used/How Often: 1/2 ppd Length of Time of Smoking/Using Tobacco: 10 years Have You Smoked in the Last Year: No Review of Systems Constitutional: Negative Negative: Fever, Fatigue, Skin Diaphoresis Negative: Palpitations Negative: Shortness Of Breath, Cough Negative: Abdominal Pain, Vomiting, Diarrhea, Nausea Genitourinary: Negative Positive: no symptoms reported, see HPI Positive: Arthralgia, Myalgia Skin: Negative Neurological: Negative All Other Systems Reviewed And Are Negative: Yes Physical Exam Triage Information Reviewed: Yes Vital Signs On Initial Exam: Initial Vitals Temp Pulse Resp BP Pulse Ox 97.9 F 74 18 151/120 96 06/28/18 10:06 06/28/18 10:06 06/28/18 10:06 06/28/18 10:06 06/28/18 10:06 Vital Signs Reviewed: Yes Appearance: Positive: Ill-Appearing, Pain Distress Skin: Positive: Skin Color Reflects Adequate Perfusion, Other - peripheral edema bilaterally Head/Face: Positive: Normal Head/Face Inspection Eyes: Positive: EOMI Neck: Positive: Supple Respiratory/Lung Sounds: Positive: Clear to Auscultation, Breath Sounds Present Cardiovascular: Positive: Pulses are Symmetrical in both Upper and Lower Extremities, Leg Edema Left, Leg Edema Right Musculoskeletal: Positive: Pain @ - bilateral lower extremities Neurological: Positive: Speech Normal Psychiatric: Positive: Normal, Affect/Mood Appropriate Diagnostics - Vital Signs Vital Signs Temp Pulse Resp BP Pulse Ox 06/28/18 12:13 98.4 F 71 17 184/142 06/28/18 12:00 72 20 06/28/18 11:53 71 19 184/142 06/28/18 11:23 70 17 162/132 06/28/18 11:15 72 17 06/28/18 11:00 74 16 06/28/18 10:53 72 20 178/127 06/28/18 10:23 74 18 176/131 100 06/28/18 10:22 74 21 100 06/28/18 10:06 97.9 F 74 18 151/120 96 - Laboratory Lab Statement: Any lab studies that have been ordered have been reviewed, and results considered in the medical decision making process. Lower Extremity Course/Dx - Course Course Of Treatment: Patient recently came from dialysis with chief complaint of bilateral peripheral edema which has been present intermittently over the past several weeks to months. He states his at home dose of medication oxycodone does not improve the symptoms. I have discussed Pato wraps for the legs as he is unable to place stockings independently. Also discussed elevating the legs as much as possible. As this is a chronic issue, or imaging is necessary at this time. - Diagnoses Provider Diagnoses: Peripheral edema, Peripheral neuropathic pain Discharge - Sign-Out/Discharge Documenting (check all that apply): Patient Departure - Discharge Plan Condition: Stable Disposition: HOME Referrals: Marielena Vargas MD [Primary Care Provider] - Additional Instructions: Keep pato wraps applied today - take off at bedtime Keep the legs elevated as much as possible above the heart - Billing Disposition and Condition Condition: STABLE Disposition: Home
== END 2018-06-28 12:13 | disposition home or self-care (01) ==
LOC: ED 10:03
DX: R07.89 Other chest pain (principal); R06.02 Shortness of breath
CPT/HCPCS: 99283; A9270-GY

== ENCOUNTER → 2018-06-29 21:00 | Emergency (ER) | payer MEDICARE, MEDICAID ==
[~2018-06-29 21:00] MED LIST changes: +Albuterol 2.5 MG/3 ML NEB.SOL* (0.083%) INH ONE; +Albuterol/Ipratropium NEB.SOL* Albuterol 2.5 MG/Ipratropium 0.5 MG 3 ML INH ONE; +Calcium Gluconate INJ* 1 GM in NS 0.9% 100 ML* 100 ML IVPB ONE; +Dextrose 50% Syringe 50 ML* 25 GM/50 ML SYRINGE IV PUSH PRN; +Insulin REGULAR(*) 1 UNITS UNIT IV PUSH ONE; +Labetalol IV* 5 MG/ML 20 ML VIAL IV PUSH ONE; +Metoclopramide IV* 5 MG/ML 2 ML VIAL IV SLOW PU ONE; +Morphine INJ* 2 MG/ML 1 ML SYRINGE (TWO MG - NEW SYRINGE VERSION) IV ONE; -Morphine INJ* 4 MG/ML 1 ML CARPUJECT IM ONE; +NS 0.9% 100 ML* 100 ML ONE; +Sodium Bicarbonate 8.4%* 50 ML SYRINGE IV ONE; +nitroGLYCERIN DRIP* 25,000 MCG/250 ML BTL IV ONE
[2018-06-29 21:57] LABS: ABS Basophils 0.1 10^3/ul (0-0.2); ABS Eosinophils 0 10^3/ul (0-0.6); ABS Lymphocytes 0.8 10^3/ul (1.0-4.8); ABS Monocytes 0.6 10^3/ul (0-0.8); ABS Nucleated RBC 0 10^3/ul; Eosinophil % 0.5 % (0-6); Hematocrit 36 % (42-52); Hemoglobin 11.7 g/dl (14.0-18.0); Lymphocyte % 16.9 % (25-47); Mean Corpuscular HGB Conc 33 g/dl (31-36); Mean Corpuscular Hemoglobin 29 pg (27-31); Mean Corpuscular Volume 89 fL (80-94); Mean Platelet Volume 8.8 um3 (7.4-10.4); Nucleated Red Blood Cells % 0.1; Platelet Count 103 10^3/ul (150-450); Red Blood Count 3.97 10^6/ul (4.00-5.40); Red Cell Distribution Width 19 % (10.5-15); White Blood Count 4.5 10^3/ul (3.5-10.8)
[2018-06-29 22:08] LABS: EGFR Non-African American 7.8 (>60); INR 2.11 (0.77-1.02)
--- NOTE | 2018-06-29 22:16 | ED ---
Shortness of Breath - HPI Summary HPI Summary: This patient is a 67 year old M BIBA to [facility] with a chief complaint of SOB since this morning saw Dr. Vargas and was told to come here but he declined at that time. Pt has renal failure and his last dialysis was 06-28-18. The patient rates the pain 0/10 in severity. Patient reports throat pain and CP. Patient denies cough and ABD pain.Pt is well known to me and has chronic COPD. - History of Current Complaint Chief Complaint: EDShortnessOfBreath Time Seen by Provider: 06/29/18 21:21 Hx Obtained From: Patient Onset/Duration: Still Present Timing: Constant Current Severity: Severe Dyspnea At: Rest Associated Signs & Symptoms: Chest Pain Unrelated to Cough - Allergy/Home Medications Allergies/Adverse Reactions: Allergies Allergy/AdvReac Type Severity Reaction Status Date / Time aspirin Allergy "Ever Verified 06/28/18 10:10 since i was a boy i was told not to take aspirin" hydromorphone AdvReac Pt states Verified 06/28/18 10:10 "he feels like a junky" PMH/Surg Hx/FS Hx/Imm Hx Endocrine/Hematology History: Reports: Hx Blood Transfusions, Hx Sickle Cell Disease - Was told had sickle cell at one point but denies, Hx Anemia Denies: Hx Anticoagulant Therapy, Hx Bone Marrow Disease, Hx Diabetes, Hx Thyroid Disease Cardiovascular History: Reports: Hx Angina, Hx Auto Implanted Cardiovert Defib, Hx Congestive Heart Failure, Hx Coronary Artery Disease, Hx Deep Vein Thrombosis , Hx Hypertension, Hx Pacemaker/ICD, Hx Peripheral Vascular Disease, Hx Syncope , Other Cardiovascular Problems/Disorders - cardiomegaly, mitral valve and tricuspid valve repair Denies: Hx Cardiomegaly, Hx Hypercholesterolemia, Hx Myocardial Infarction, Hx Rheumatic Fever, Hx Valvular Heart Disease Respiratory History: Reports: Hx Asthma - 3L Home O2, Hx Chronic Obstructive Pulmonary Disease (COPD), Hx Pleural Effusion, Hx Pneumonia, Other Respiratory Problems/Disorders Denies: Hx Pulmonary Edema, Hx Pulmonary Embolism, Hx Sleep Apnea GI History: Reports: Hx Cirrhosis, Hx Gastroesophageal Reflux Disease, Hx Ulcer - peptic ulcer, Other GI Disorders - hep C Denies: Hx Crohn's Disease, Hx Hiatal Hernia, Hx Irritable Bowel, Hx Jaundice History: Reports: Hx Acute Renal Failure, Hx Chronic Renal Failure, Hx Dialysis, Hx Renal Disease, Other Problems/Disorders - end stage renal disease, on dialysis Denies: Hx Kidney Infection, Hx Kidney Stones Musculoskeletal History: Reports: Hx Arthritis, Hx Back Problems - chronic pain , Hx Orthopedic Injury Denies: Hx Rheumatoid Arthritis, Hx Bursitis, Hx Tendonitis, Other Musculoskeletal History Sensory History: Reports: Hx Contacts or Glasses - did not bring however, Hx Glaucoma, Hx Vision Problem Denies: Hx Cataracts, Other Sensory Impairments Opthamlomology History: Reports: Hx Contacts or Glasses - did not bring however , Hx Glaucoma, Hx Vision Problem Denies: Hx Cataracts, Other Sensory Impairments Neurological History: Reports: Hx Headaches, Hx Migraine, Other Neuro Impairments/Disorders - depression Denies: Hx Dementia, Hx Seizures Psychiatric History: Reports: Hx Anxiety, Hx Depression, Hx Substance Abuse - ETOH Denies: Hx Eating Disorder, Hx Panic Disorder, Hx Suicide Attempt, Hx of Violent Episodes Against Others - Cancer History Hx Chemotherapy: No Hx Radiation Therapy: No Hx Palliative Cancer Treatment: No - Surgical History Surgery Procedure, Year, and Place: HERNIA REPAIR 2012. APPENDECTOMY 2000. LEFT ARM AV FISTULA/CAD - REMOVED. CABG 1 vessel, mitral & tricuspid valve repair March 02, 2014 AT [facility] CONDITIONAL 5 UPTO 3T. POWER PORT. Mitral and tricuspid valve repair Hx Anesthesia Reactions: No - Immunization History Date of Tetanus Vaccine: unk Date of Influenza Vaccine: unk Immunizations Up to Date: Yes Infectious Disease History: No Infectious Disease History: Reports: Hx Hepatitis - Hep C, Hx of Known/ Suspected MRSA, History Other Infectious Disease - Hepatitis C Denies: Hx Clostridium Difficile, Hx Human Immunodeficiency Virus (HIV), Hx Shingles, Hx Tuberculosis, Hx Known/Suspected VRE, Hx Known/Suspected VRSA, Traveled Outside the in Last 30 Days - Family History Known Family History: Positive: Cardiac Disease, Hypertension, Other - CVA Family History: R & N/C - Social History Alcohol Use: None Alcohol Amount: former EtOH abuse Hx Substance Use: Yes Substance Use Type: Reports: Prescribed Substance Use Comment - Amount & Last Used: for pain, no longer takes marijuana Hx Tobacco Use: Yes Smoking Status (MU): Former Smoker Type: Cigarettes Amount Used/How Often: 1/2 ppd Length of Time of Smoking/Using Tobacco: 10 years Have You Smoked in the Last Year: No Review of Systems Positive: Other - throat pain Positive: Chest Pain Positive: Shortness Of Breath All Other Systems Reviewed And Are Negative: Yes Physical Exam - Summary Physical Exam Summary: VITAL SIGNS: Reviewed. GENERAL: Patient is a well-developed and nourished male who is lying comfortable in the stretcher. Patient is not in any acute respiratory distress. HEAD AND FACE: No signs of trauma. No ecchymosis, hematomas or skull depressions. No sinus tenderness. EYES: PERRLA, EOMI x 2, No injected conjunctiva, no nystagmus. EARS: Hearing grossly intact. Ear canals and tympanic membranes are within normal limits. MOUTH: Oropharynx within normal limits. NECK: Supple, trachea is midline, no adenopathy, there is JVD, no carotid bruit , no c-spine tenderness, neck with full ROM. CHEST: there is a dialysis catheter in the left chest wall LUNGS: there are rales bilaterally CVS: Regular rate and rhythm, S1 and S2 present, no murmurs or gallops appreciated. ABDOMEN: Soft, non-tender. Belly is distended. No rebound no guarding, and no masses palpated. Bowel sounds are normal. EXTREMITIES: FROM in all major joints, no cyanosis or clubbing. There is 3+ bilateral pitting edema NEURO: Alert and oriented x 3. No acute neurological deficits. Speech is normal and follows commands. SKIN: Dry and warm Triage Information Reviewed: Yes Vital Signs On Initial Exam: Initial Vitals Temp Pulse Resp BP Pulse Ox 98.1 F 90 24 201/144 98 06/29/18 21:02 06/29/18 21:02 06/29/18 21:02 06/29/18 21:02 06/29/18 21:02 Vital Signs Reviewed: Yes Diagnostics - Vital Signs Vital Signs Temp Pulse Resp BP Pulse Ox 06/29/18 21:53 24 06/29/18 21:48 80 22 99 06/29/18 21:02 98.1 F 90 24 201/144 98 - Laboratory Lab Results: Lab Results 06/29/18 06/29/18 06/29/18 Range/Units 21:40 21:40 21:40 WBC 4.5 (3.5-10.8) 10^3/ul RBC 3.97 L (4.00-5.40) 10^6/ul Hgb 11.7 L (14.0-18.0) g/dl Hct 36 L (42-52) % MCV 89 (80-94) fL MCH 29 (27-31) pg MCHC 33 (31-36) g/dl RDW 19 H (10.5-15) % Plt Count 103 L (150-450) 10^3/ul MPV 8.8 (7.4-10.4) um3 Neut % (Auto) 66.9 (38-83) % Lymph % (Auto) 16.9 L (25-47) % Sully % (Auto) 14.1 H (0-7) % Eos % (Auto) 0.5 (0-6) % Baso % (Auto) 1.6 (0-2) % Absolute Neuts (auto) 3.0 (1.5-7.7) 10^3/ul Absolute Lymphs (auto) 0.8 L (1.0-4.8) 10^3/ul Absolute Monos (auto) 0.6 (0-0.8) 10^3/ul Absolute Eos (auto) 0 (0-0.6) 10^3/ul Absolute Basos (auto) 0.1 (0-0.2) 10^3/ul Absolute Nucleated RBC 0 10^3/ul Nucleated RBC % 0.1 INR (Anticoag Therapy) 2.11 H (0.77-1.02) APTT 43.1 H (26.0-36.3) seconds Sodium 138 (135-145) mmol/L Potassium Pending Chloride 100 L (101-111) mmol/L Carbon Dioxide 30 (22-32) mmol/L Anion Gap Pending BUN 51 H (6-24) mg/dL Creatinine 7.07 H (0.67-1.17) mg/dL Est GFR ( Amer) 9.5 (>60) Est GFR (Non-Af Amer) 7.8 (>60) BUN/Creatinine Ratio 7.2 L (8-20) Glucose 89 (70-100) mg/dL Calcium 10.1 (8.6-10.3) mg/dL Total Bilirubin 0.70 (0.2-1.0) mg/dL AST 36 (13-39) U/L ALT 22 (7-52) U/L Alkaline Phosphatase 87 (34-104) U/L Troponin I Pending Total Protein 8.4 (6.4-8.9) g/dL Albumin 4.4 (3.2-5.2) g/dL Globulin 4.0 (2-4) g/dL Albumin/Globulin Ratio 1.1 (1-3) Result Diagrams: 06/29/18 21:40 06/29/18 21:40 Lab Statement: Any lab studies that have been ordered have been reviewed, and results considered in the medical decision making process. - Radiology CXR Radiology Interpretation Completed By: ED Physician - volume overload. Pending official report. - EKG 22:12 Cardiac Rate: NL EKG Rhythm: Sinus Rhythm - at 79 BPM EKG Interpretation: LVH Course/Dx - Course Assessment/Plan: This patient is a 67 year old M BIBA to [facility] with a chief complaint of SOB since this morning saw Dr. Vargas and was told to come here but he declined at that time. Pt has renal failure and his last dialysis was 08-05. The patient rates the pain 0/10 in severity. Patient reports throat pain and CP. Patient denies cough and ABD pain.Pt is well known to me and has chronic COPD. An EKG reveals sinus 79 LVH. CXR reveals, volume overload. Pending official report. Pt is feeling better BP is down and he is breathing good. He has dialysis at 530 tomorrow. I gave him the option to stay until then but he would like to go home. Return instructions given. Blood work obtained. Patient will be discharged. The patient is agreeable with this plan. - Diagnoses Provider Diagnoses: Volume overload, Renal insufficiency, HTN (hypertension) Discharge - Sign-Out/Discharge Documenting (check all that apply): Patient Departure - Discharge Plan Condition: Stable Disposition: HOME Patient Education Materials: Chronic Hypertension (ED), Dialysis Diet (DC), End Stage Kidney Disease (ED) Referrals: Marielena Vargas MD [Primary Care Provider] - 2 Days Additional Instructions: RETURN TO THE EMERGENCY DEPARTMENT FOR CHANGING OR WORSENING SYMPTOMS. FOLLOW UP WITH PCP IN 1-2 DAYS. Please kep your dialysis appointment. - Attestation Statements Document Initiated by Scribe: Yes Documenting Scribe: Jay Anderson Provider For Whom Scribe is Documenting (Include Credential): Yuly Ponce MD Scribe Attestation: Jay Briones , scribed for Yuly Ponce MD on 06/30/18 at 0040.
[2018-06-30 01:05] VITALS: BP 177/101
--- NOTE | 2018-06-30 07:49 | RAD ---
HISTORY: SOB COMPARISONS: June 18, 2018 VIEWS: 1: frontal portable view of the chest at 9:50 PM FINDINGS: LINES AND TUBES: A left-sided pacemaker is noted. Central venous catheter is noted with tip overlying the cavoatrial junction. CARDIOMEDIASTINAL SILHOUETTE: The cardiac silhouette is enlarged. The cardiomediastinal silhouette is otherwise normal for portable technique. PLEURA: There is blunting of the costophrenic angles bilaterally, greater on the right than on the left LUNG PARENCHYMA: There is a diffuse reticular pattern with indistinct pulmonary vessels. There is patchy alveolar opacification of the lower lung gruber bilaterally. There is somewhat improved aeration compared to the previous examination. ABDOMEN: The upper abdomen is clear. There is no subphrenic gas. BONES AND SOFT TISSUES: The patient is status post median sternotomy. IMPRESSION: 1. CARDIOMEGALY. 2. PULMONARY INTERSTITIAL EDEMA. 3. SMALL BILATERAL PLEURAL EFFUSIONS. 4. PATCHY AIRSPACE DISEASE OF THE LOWER LUNGS BILATERALLY, SOMEWHAT IMPROVED FROM THE JUNE 18, 2018 EXAMINATION. R2
== END | disposition home or self-care (01) ==
LOC: ED 21:00
DX: E87.70 Fluid overload, unspecified (principal); N18.6 End stage renal disease; Z99.2 Dependence on renal dialysis; I10 Essential (primary) hypertension; I51.7 Cardiomegaly; J81.1 Chronic pulmonary edema; J90 Pleural effusion, not elsewhere classified; J44.9 Chronic obstructive pulmonary disease, unspecified; Z99.81 Dependence on supplemental oxygen; Z95.1 Presence of aortocoronary bypass graft; Z88.6 Allergy status to analgesic agent; Z88.5 Allergy status to narcotic agent; Z87.891 Personal history of nicotine dependence
CPT/HCPCS: 36415; 71045; 80053; 83880; 84484; 85025; 85610; 85730; 93005; 96374; 96375; 99284; A9270-GY; J0610; J2270; J2765

== ENCOUNTER 2018-06-30 07:08 | Inpatient (IN) | payer MEDICARE, MEDICAID ==
[2018-06-30] MEDS ORDERED: Nitroglycerin TAB 0.4 MG* 0.4 MG TAB SL ONE (07:44)
--- NOTE | 2018-06-30 07:53 | RAD ---
HISTORY: CP SOB COMPARISONS: June 29, 2018 VIEWS: 1: frontal portable view of the chest at 7:34 AM FINDINGS: LINES AND TUBES: A left-sided AICD pacemaker is noted. A central venous catheter is noted with the tip overlying the cavoatrial junction. CARDIOMEDIASTINAL SILHOUETTE: The cardiac silhouette is enlarged. The cardiomediastinal silhouette is otherwise normal for portable technique. Prosthetic heart valves are noted. PLEURA: There is blunting of the costophrenic angles bilaterally. LUNG PARENCHYMA: There is a diffuse reticular pattern with indistinct pulmonary vessels. There is patchy alveolar opacification of the lung bases bilaterally. The appearance is similar to the previous examination. ABDOMEN: The upper abdomen is clear. There is no subphrenic gas. BONES AND SOFT TISSUES: The patient is status post median sternotomy. IMPRESSION: 1. CARDIOMEGALY. 2. PULMONARY INTERSTITIAL EDEMA. 3. BILATERAL PLEURAL EFFUSIONS. 4. PATCHY AIRSPACE DISEASE OF THE LOWER LUNGS BILATERALLY. 5. THE APPEARANCE IS SIMILAR TO THE PREVIOUS EXAMINATION.
--- NOTE | 2018-06-30 08:00 | ED ---
Shortness of Breath - HPI Summary HPI Summary: This patient is a 67 year old M BIBA to [facility] with a chief complaint of SOB since yesterday morning. Patient was seen in the ED yesterday for similar symptoms yesterday and was discharged. SOB continued this morning after dialysis. Patient reports right lateral chest pain with cough. Pain is rated 9/ 10 in severity. He reports a sensation of throat blockage and fluid in his lungs. He describes his cough as non-productive, but feels the need to "get stuff up". Dialysis was completed on 06/28, but was not finished today due to symptoms. Patient reports sleeping in a recliner or with 8 pillows. Patients Soumya Vargas NP. - History of Current Complaint Chief Complaint: EDShortnessOfBreath Time Seen by Provider: 06/30/18 07:18 Hx Obtained From: Patient Onset/Duration: Lasting Days Timing: Constant Current Severity: Severe Dyspnea At: Rest Aggrevating Factors: Deep Breaths, Recumbent Position Alleviating Factors: Upright Position Associated Signs & Symptoms: Cough (Nonproductive), Chest Pain w/Cough Related History: Similar Episode - Allergy/Home Medications Allergies/Adverse Reactions: Allergies Allergy/AdvReac Type Severity Reaction Status Date / Time aspirin Allergy "Ever Verified 06/28/18 10:10 since i was a boy i was told not to take aspirin" hydromorphone AdvReac Pt states Verified 06/28/18 10:10 "he feels like a junky" Home Medications: Home Medications Cinacalcet HCl [Sensipar] 60 mg PO DAILY 06/30/18 [History Confirmed 06/30/18] Folic Acid/Vit B Complex and C [Nephro-Dameon] 1 tab PO DAILY 06/30/18 [History Confirmed 06/30/18] Hydralazine HCl 25 mg PO TID 06/30/18 [History Confirmed 06/30/18] Lubiprostone [Amitiza] 24 mcg PO BID 06/30/18 [History Confirmed 06/30/18] Pancrelipase (NF) [Creon (NF)] 1 cap PO DAILY 06/30/18 [History Confirmed ] PMH/Surg Hx/FS Hx/Imm Hx Endocrine/Hematology History: Reports: Hx Blood Transfusions, Hx Sickle Cell Disease - Was told had sickle cell at one point but denies, Hx Anemia Denies: Hx Anticoagulant Therapy, Hx Bone Marrow Disease, Hx Diabetes, Hx Thyroid Disease Cardiovascular History: Reports: Hx Angina, Hx Auto Implanted Cardiovert Defib, Hx Congestive Heart Failure, Hx Coronary Artery Disease, Hx Deep Vein Thrombosis , Hx Hypertension, Hx Pacemaker/ICD, Hx Peripheral Vascular Disease, Hx Syncope , Other Cardiovascular Problems/Disorders - cardiomegaly, mitral valve and tricuspid valve repair Denies: Hx Cardiomegaly, Hx Hypercholesterolemia, Hx Myocardial Infarction, Hx Rheumatic Fever, Hx Valvular Heart Disease Respiratory History: Reports: Hx Asthma - 3L Home O2, Hx Chronic Obstructive Pulmonary Disease (COPD), Hx Pleural Effusion, Hx Pneumonia, Other Respiratory Problems/Disorders Denies: Hx Pulmonary Edema, Hx Pulmonary Embolism, Hx Sleep Apnea GI History: Reports: Hx Cirrhosis, Hx Gastroesophageal Reflux Disease, Hx Ulcer - peptic ulcer, Other GI Disorders - hep C Denies: Hx Crohn's Disease, Hx Hiatal Hernia, Hx Irritable Bowel, Hx Jaundice History: Reports: Hx Acute Renal Failure, Hx Chronic Renal Failure, Hx Dialysis, Hx Renal Disease, Other Problems/Disorders - end stage renal disease, on dialysis Denies: Hx Kidney Infection, Hx Kidney Stones Musculoskeletal History: Reports: Hx Arthritis, Hx Back Problems - chronic pain , Hx Orthopedic Injury Denies: Hx Rheumatoid Arthritis, Hx Bursitis, Hx Tendonitis, Other Musculoskeletal History Sensory History: Reports: Hx Contacts or Glasses - did not bring however, Hx Glaucoma, Hx Vision Problem Denies: Hx Cataracts, Other Sensory Impairments Opthamlomology History: Reports: Hx Contacts or Glasses - did not bring however , Hx Glaucoma, Hx Vision Problem Denies: Hx Cataracts, Other Sensory Impairments Neurological History: Reports: Hx Headaches, Hx Migraine, Other Neuro Impairments/Disorders - depression Denies: Hx Dementia, Hx Seizures Psychiatric History: Reports: Hx Anxiety, Hx Depression, Hx Substance Abuse - ETOH Denies: Hx Eating Disorder, Hx Panic Disorder, Hx Suicide Attempt, Hx of Violent Episodes Against Others - Cancer History Hx Chemotherapy: No Hx Radiation Therapy: No Hx Palliative Cancer Treatment: No - Surgical History Surgery Procedure, Year, and Place: HERNIA REPAIR 2012. APPENDECTOMY 2000. LEFT ARM AV FISTULA/CAD - REMOVED. CABG 1 vessel, mitral & tricuspid valve repair March 02, 2014 AT [facility] CONDITIONAL 5 UPTO 3T. POWER PORT. Mitral and tricuspid valve repair Hx Anesthesia Reactions: No - Immunization History Date of Tetanus Vaccine: unk Date of Influenza Vaccine: unk Infectious Disease History: Yes Infectious Disease History: Reports: Hx Hepatitis - Hep C, Hx of Known/ Suspected MRSA, History Other Infectious Disease - Hepatitis C Denies: Hx Clostridium Difficile, Hx Human Immunodeficiency Virus (HIV), Hx Shingles, Hx Tuberculosis, Hx Known/Suspected VRE, Hx Known/Suspected VRSA, Traveled Outside the [place] in Last 30 Days - Family History Known Family History: Positive: Cardiac Disease, Hypertension, Other - CVA Family History: R & N/C - Social History Alcohol Use: None Alcohol Amount: former EtOH abuse Hx Substance Use: Yes Substance Use Type: Reports: Prescribed Substance Use Comment - Amount & Last Used: for pain, no longer takes marijuana Hx Tobacco Use: Yes Smoking Status (MU): Former Smoker Type: Cigarettes Amount Used/How Often: 1/2 ppd Length of Time of Smoking/Using Tobacco: 10 years Have You Smoked in the Last Year: No Review of Systems Negative: Fever, Chills Negative: Erythema Positive: Sore Throat Positive: Chest Pain Positive: Shortness Of Breath, Cough Negative: Abdominal Pain, Vomiting, Nausea Negative: dysuria, hematuria Negative: Myalgia, Edema Negative: Rash Neurological: Negative - dizziness All Other Systems Reviewed And Are Negative: Yes Physical Exam - Summary Physical Exam Summary: Constitutional: Well-developed, Well-nourished, Alert. Moderate respiratory distress Skin: Warm, Dry HENT: Normocephalic; Atraumatic Eyes: Conjunctiva normal Neck: Musculoskeletal ROM normal neck. (-) JVD, (-) Stridor, (-) Tracheal deviation Cardio: Rhythm regular, rate normal, Heart sounds normal; Intact distal pulses; The pedal pulses are 2+ and symmetric. Radial pulses are 2+ and symmetric. (-) Murmur Pulmonary/Chest wall:Tachypneic. Moderate Respiratory distress, Diminished breath sounds, bibasilar wheezes Abd: Soft, (-) epigastric tenderness, (-) Distension, (-) Guarding, (-) Rebound Musculoskeletal: (-) Edema Lymph: (-) Cervical adenopathy Neuro: Alert, Oriented x3 Psych: Mood and affect Normal Triage Information Reviewed: Yes Vital Signs On Initial Exam: Initial Vitals Temp Pulse Resp BP Pulse Ox 98.0 F 70 19 194/119 99 06/30/18 07:09 06/30/18 07:09 06/30/18 07:09 06/30/18 07:09 06/30/18 07:09 Vital Signs Reviewed: Yes Diagnostics - Vital Signs Vital Signs Temp Pulse Resp BP Pulse Ox 06/30/18 07:23 100 06/30/18 07:09 98.0 F 70 19 194/119 99 - Laboratory Result Diagrams: 06/30/18 07:53 06/30/18 07:53 Lab Statement: Any lab studies that have been ordered have been reviewed, and results considered in the medical decision making process. - Radiology CXR Radiology Interpretation Completed By: Radiologist - 1. CARDIOMEGALY. 2. PULMONARY INTERSTITIAL EDEMA. 3. BILATERAL PLEURAL EFFUSIONS. 4. PATCHY AIRSPACE DISEASE OF THE LOWER LUNGS BILATERALLY. 5. THE APPEARANCE IS SIMILAR TO THE PREVIOUS EXAMINATION. ED Physician has reviewed this report. - EKG 0729 Cardiac Rate: NL - 68 BPM EKG Rhythm: Sinus Rhythm EKG Interpretation: TWI V5, V6 Course/Dx - Course Course Of Treatment: 67 year old M BIBA to [facility] with a chief complaint of SOB since yesterday morning. Patient was seen in the ED yesterday for similar symptoms yesterday and was discharged. SOB continued this morning after dialysis. Patient reports right lateral chest pain with cough. An EKG is performed. A CXR reveals, "1. CARDIOMEGALY. 2. PULMONARY INTERSTITIAL EDEMA. 3. BILATERAL PLEURAL EFFUSIONS. 4. PATCHY AIRSPACE DISEASE OF THE LOWER LUNGS BILATERALLY. 5. THE APPEARANCE IS SIMILAR TO THE PREVIOUS EXAMINATION." Patient is given 2gm of Maxipime and placed on a Nitroglycerin drip. Bloodwork reveals troponin of 0.05, which is chronically elevated. Patient is hypertensive while in ED with an elevated BP of 268/197 at its worst. It is unknown if patient's weight has increased or decreased. Dr. Dalal is contacted and informed of patient and plan. Patient is in need of emergenct dialysis. Dr. Dalal states a dialysis nurse could be in at 1400. I spoke with Dr. Allen, fusing machine tender, who agrees to admit. - Diagnoses Provider Diagnoses: End stage renal disease, Fluid overload, Mild bibasilar atelectasis, Elevated troponin, Hypertensive emergency - Physician Notifications Discussed Care of Patient With: Jose Eduardo Hesson Time Discussed With Above Provider: 08:31 Instructed by Provider To: Other - Dr. Dalal is aware of patient and plan. He is aware of plan for Bipap as needed. A dialysis nurse will come at 1400. - Critical Care Time Critical Care Time: 30-74 min - 60 minutes Discharge - Sign-Out/Discharge Documenting (check all that apply): Patient Departure - admit - Discharge Plan Condition: Stable Disposition: ADMITTED TO [facility] Referrals: Marielena Vargas MD [Primary Care Provider] - - Attestation Statements Document Initiated by Scribe: Yes Documenting Scribe: Makayla Shell Provider For Whom Scribe is Documenting (Include Credential): Steven Kowalski MD Scribe Attestation: Makayla Briones, scribed for Steven Kowalski MD on 06/30/18 at 0909.
[2018-06-30 08:01] LABS: ABS Basophils 0.1 10^3/ul (0-0.2); ABS Eosinophils 0 10^3/ul (0-0.6); ABS Lymphocytes 0.7 10^3/ul (1.0-4.8); ABS Monocytes 0.6 10^3/ul (0-0.8); ABS Neutrophils 3.5 10^3/ul (1.5-7.7); ABS Nucleated RBC 0 10^3/ul; Eosinophil % 0.4 % (0-6); Hematocrit 34 % (42-52); Hemoglobin 11.1 g/dl (14.0-18.0); Lymphocyte % 14.4 % (25-47); Mean Corpuscular HGB Conc 33 g/dl (31-36); Mean Corpuscular Hemoglobin 29 pg (27-31); Mean Corpuscular Volume 89 fL (80-94); Mean Platelet Volume 9.9 um3 (7.4-10.4); Nucleated Red Blood Cells % 0.1; Platelet Count 105 10^3/ul (150-450); Red Blood Count 3.81 10^6/ul (4.00-5.40); Red Cell Distribution Width 19 % (10.5-15); White Blood Count 4.9 10^3/ul (3.5-10.8)
[2018-06-30] MEDS ORDERED: Cefepime 2 GM in Dextrose(*) 2 GM/50 ML BAG IV ONE (08:03)
[2018-06-30] MEDS ORDERED: Ciprofloxacin 400MG IVPREMIX(* 400 MG/200 ML BAG IVPB ONE (08:03)
[2018-06-30 08:24] LABS: EGFR Non-African American 8.4 (>60)
[2018-06-30] MEDS ORDERED: oxyCODONE TAB* 5 MG TAB PO ONE (08:59)
[2018-06-30] MEDS ORDERED: nitroGLYCERIN DRIP* 25,000 MCG/250 ML BTL IV SCH (09:00)
[2018-06-30] MEDS ORDERED: Furosemide IV* 10 MG/ML VIAL (40 MG) IV SLOW PU ONE (09:07)
[2018-06-30] MEDS: hydrALAZINE TAB* 25 MG PO SCH ×4 (09:08→20:35)
[2018-06-30] MEDS: amLODIPine TAB* 5 MG PO SCH ×2 (09:08→09:38)
[2018-06-30] MEDS ORDERED: Albuterol HFA INHALER* 8 gm MDI INH PRN (09:12)
[2018-06-30] MEDS ORDERED: Acetaminophen TAB* 325 MG PO PRN (09:12)
[2018-06-30] MEDS ORDERED: Docusate CAP* 100 MG PO PRN (09:12)
[2018-06-30] MEDS ORDERED: Ondansetron TAB* 4 MG PO PRN (09:12)
[2018-06-30] MEDS ORDERED: Cyclobenzaprine TAB* 10 MG PO PRN (09:12)
[2018-06-30] MEDS ORDERED: oxyCODONE TAB* 5 MG TAB PO PRN (09:12)
[2018-06-30] MEDS ORDERED: Albuterol 2.5 MG/3 ML NEB.SOL* (0.083%) INH ONE (09:17)
[2018-06-30] MEDS ORDERED: Sodium Polystyrene ORAL.SOL* 15 GM/60 ML BTL PO ONE (09:20)
--- NOTE | 2018-06-30 09:44 | HP ---
H&P (Free Text) History and Physical: [facility] History & Physical CC: Shortness of breath HPI: 67M with htn, hld, depression, gerd, hcv, h/o dvt, chronic pancreatitits, AFib, cad s/p cabg, chf (ef 35%), esrd on hd presents with shortness of breath. The patient was at HD today but he requested that the session be stopped and he be transferred to the hospital. The patient states he has been feeling short of breath for the past several days. He also has some chest tightness. He denies any fever or chills. No cough. He states that he cannot lay flat. The denies any worsening edema. In the ER he was found to have sbp > 250. CXR was consistent with volume overload. The patient was started on a nitro gtt and admitted for urgent HD. ROS - as per HPI PMHx - htn, hld, depression, gerd, hcv, chronic pancreatitits, AFib on AC, cad, chf (ef 35%), esrd on hd, h/o dvt PSHx - AVR repair, s/p MVR repair All - asa, hydromorphone FamHx - brain tumor SocHx - +marajuana, denies tobacco, no etoh PE Vital Signs: Temp Pulse Resp BP Pulse Ox 98.0 F 68 18 203/143 100 06/30/18 07:09 06/30/18 09:31 06/30/18 09:31 06/30/18 09:11 06/30/18 09:31 Gen - chronically ill HEENT - ncat, eomi, perrl Neck - + JVD CV - s1/s2, +murmur, +HD catheter in left chest Pulm - CTA, +dec bs at bases Abd - soft, nt Ext - no cce, +av fistula on b/l upper extremities Neuro - non-focal Labs Laboratory Results - last 24 hr 06/30/18 06/30/18 06/30/18 07:53 07:53 08:06 WBC 4.9 RBC 3.81 L Hgb 11.1 L Hct 34 L MCV 89 MCH 29 MCHC 33 RDW 19 H Plt Count 105 L MPV 9.9 Neut % (Auto) 71.3 Lymph % (Auto) 14.4 L [place] % (Auto) 12.8 H Eos % (Auto) 0.4 Baso % (Auto) 1.1 Absolute Neuts (auto) 3.5 Absolute Lymphs (auto) 0.7 L Absolute Monos (auto) 0.6 Absolute Eos (auto) 0 Absolute Basos (auto) 0.1 Absolute Nucleated RBC 0 Nucleated RBC % 0.1 Patient Temperature ABG pH ABG pH (Temp Correct) ABG pCO2 ABG pCO2 (Temp Corrct ABG pO2 ABG pO2 (Temp Correct ABG HCO3 ABG O2 Saturation ABG Base Excess Respiration Rate O2 Delivery Device Ventilator Type Vent Mode FiO2 Inspiratory Time PEEP Pressure Support Pressure Control EPAP IPAP BiPAP Sodium 134 L Potassium 6.3 H* Chloride 99 L Carbon Dioxide 28 Anion Gap 7 BUN 52 H Creatinine 6.68 H Est GFR ( Amer) 10.1 Est GFR (Non-Af Amer) 8.4 BUN/Creatinine Ratio 7.8 L Glucose 89 Lactic Acid 0.8 Calcium 9.7 Total Bilirubin 0.70 AST 37 ALT 24 Alkaline Phosphatase 71 Troponin I 0.05 H* Total Protein 8.8 Albumin 4.6 Globulin 4.2 H Albumin/Globulin Ratio 1.1 06/30/18 08:30 WBC RBC Hgb Hct MCV MCH MCHC RDW Plt Count MPV Neut % (Auto) Lymph % (Auto) [place] % (Auto) Eos % (Auto) Baso % (Auto) Absolute Neuts (auto) Absolute Lymphs (auto) Absolute Monos (auto) Absolute Eos (auto) Absolute Basos (auto) Absolute Nucleated RBC Nucleated RBC % Patient Temperature Not Reportable ABG pH 7.52 H ABG pH (Temp Correct) Not Reportable ABG pCO2 38 ABG pCO2 (Temp Corrct Not Reportable ABG pO2 133 H ABG pO2 (Temp Correct Not Reportable ABG HCO3 30.8 ABG O2 Saturation 99.5 H ABG Base Excess 7.6 H Respiration Rate Not Reportable O2 Delivery Device nasal cannula 4lpm Ventilator Type Not Reportable Vent Mode Not Reportable FiO2 Not Reportable Inspiratory Time Not Reportable PEEP Not Reportable Pressure Support Not Reportable Pressure Control Not Reportable EPAP Not Reportable IPAP Not Reportable BiPAP Not Reportable Sodium Potassium Chloride Carbon Dioxide Anion Gap BUN Creatinine Est GFR ( Amer) Est GFR (Non-Af Amer) BUN/Creatinine Ratio Glucose Lactic Acid Calcium Total Bilirubin AST ALT Alkaline Phosphatase Troponin I Total Protein Albumin Globulin Albumin/Globulin Ratio Imaging CXR 06/30/18 IMPRESSION: 1. CARDIOMEGALY. 2. PULMONARY INTERSTITIAL EDEMA. 3. BILATERAL PLEURAL EFFUSIONS. 4. PATCHY AIRSPACE DISEASE OF THE LOWER LUNGS BILATERALLY. 5. THE APPEARANCE IS SIMILAR TO THE PREVIOUS EXAMINATION. Impression 67M with htn, hld, depression, gerd, hcv, h/o dvt, chronic pancreatitits, AFib, cad s/p cabg, chf (ef 35%), esrd on hd presents with shortness of breath 2/2 volume overload, hyperkalemia, hypertensive urgency Plan Neuro - neuropathy - c/w gabapentin prn - pain control CV - htn, hld, cad, chf, afib, hypertensive urgency 1. hypertensive urgency - restart home bp meds - nitro gtt 2. afib - rate control with coreg - ac with coumadin 3. acute chf exacerbation - volume removal with hd - strict i/o, daily weights - bipap as needed 4. hld/CAD - c/w asa/statin Pulm - dypnea - multifactorial - supplemental o2 prn - bipap prn ID - given abx in ER - wbc normal - afebrile - hold off on further abx GI - gerd, pancreatitis - c/w creon - c/w h2 chris Renal - esrd on hd, hyperkalemia - HD per renal - patient refuses kayexelate, r/b/a explained Heme - anemia - c/w iron Endo - check fs, niss Lines - piv, left chest permcath PPx - gi/dvt Full Code Admit to ICU Critical Care Time: 70 mins
[2018-06-30 11:06] LABS: INR 2.16 (0.77-1.02)
[2018-06-30] MEDS ORDERED: Ondansetron ODT TAB* 4 MG PO PRN (11:09)
[2018-06-30] MEDS: Carvedilol TAB* 25 MG PO SCH ×2 (11:33→20:34)
[2018-06-30] MEDS: Isosorbide Mononitrate ER TAB* 60 MG PO SCH (11:34)
[2018-06-30] MEDS ORDERED: Heparin DIALYSIS ONLY(*) 1,000 UNITS/ML VIAL DIALYSIS ONE (13:00)
[2018-06-30] MEDS: PANCRELIPASE 3000 UNIT PO SCH ×2 (13:49→18:19)
[2018-06-30] MEDS ORDERED: Gabapentin CAP(*) 300 MG PO PRN (14:00)
[2018-06-30] MEDS: LUBIPROSTONE 24 MCG PO SCH (20:41)
[2018-06-30] MEDS: Omeprazole CAP* 20 MG PO SCH (20:42)
[2018-06-30] MEDS ORDERED: diPHENhydraMINE PO* 25 MG PO PRN (20:50)
[2018-06-30] MEDS ORDERED: Famotidine TAB* 20 MG PO SCH (21:00)
[2018-07-01 06:08] LABS: INR 3.1 (0.77-1.02)
[2018-07-01 06:10] LABS: ABS Basophils 0.1 10^3/ul (0-0.2); ABS Eosinophils 0.1 10^3/ul (0-0.6); ABS Lymphocytes 0.8 10^3/ul (1.0-4.8); ABS Monocytes 0.7 10^3/ul (0-0.8); ABS Neutrophils 2.3 10^3/ul (1.5-7.7); ABS Nucleated RBC 0 10^3/ul; Eosinophil % 1.8 % (0-6); Hematocrit 30 % (42-52); Hemoglobin 9.8 g/dl (14.0-18.0); Lymphocyte % 20.5 % (25-47); Mean Corpuscular HGB Conc 32 g/dl (31-36); Mean Corpuscular Hemoglobin 29 pg (27-31); Mean Corpuscular Volume 89 fL (80-94); Mean Platelet Volume 8.6 um3 (7.4-10.4); Nucleated Red Blood Cells % 0.1; Platelet Count 104 10^3/ul (150-450); Red Blood Count 3.38 10^6/ul (4.00-5.40); Red Cell Distribution Width 18 % (10.5-15)
[2018-07-01 06:16] LABS: EGFR Non-African American 9.7 (>60)
--- NOTE | 2018-07-01 08:38 | PN ---
Date of Service: 07/01/18 Critical Care Services: 67M with htn, hld, depression, gerd, hcv, h/o dvt, chronic pancreatitits, AFib, cad s/p cabg, chf (ef 35%), esrd on hd presents with shortness of breath 2/2 volume overload, hyperkalemia, hypertensive urgency 07/01: s/p HD with 3L removed. Dyspnea improved. BP improved off nitro gtt. Vital Signs: Temp Pulse Resp BP SpO2 FiO2 99 F 76 17 152/99 96 07/01/18 07:45 07/01/18 08:00 07/01/18 08:00 07/01/18 08:00 07/01/18 08:00 Physical Exam: Gen - chronically ill HEENT - ncat, eomi, perrl Neck - + JVD CV - s1/s2, +murmur, +HD catheter in left chest Pulm - CTA, +dec bs at bases Abd - soft, nt Ext - no cce, +av fistula on b/l upper extremities Neuro - non-focal Fluid Balance (Past 24 Hours): I= O= Net Intake & Output 06/29/18 06/30/18 07/01/18 07/02/18 06:59 06:59 06:59 06:59 Intake Total 378.5 Balance 378.5 Weight 73.1 kg Intake: IV Fluids 100 Medicated IV 203.5 Nitroglycerin 203.5 Oral 75 Labs: Laboratory Results - last 24 hr 06/30/18 06/30/18 06/30/18 07:53 08:08 08:30 WBC RBC Hgb Hct MCV MCH MCHC RDW Plt Count MPV Neut % (Auto) Lymph % (Auto) [place] % (Auto) Eos % (Auto) Baso % (Auto) Absolute Neuts (auto) Absolute Lymphs (auto) Absolute Monos (auto) Absolute Eos (auto) Absolute Basos (auto) Absolute Nucleated RBC Nucleated RBC % INR (Anticoag Therapy) 2.16 H APTT 46.2 H Patient Temperature Not Reportable ABG pH 7.52 H ABG pH (Temp Correct) Not Reportable ABG pCO2 38 ABG pCO2 (Temp Corrct Not Reportable ABG pO2 133 H ABG pO2 (Temp Correct Not Reportable ABG HCO3 30.8 ABG O2 Saturation 99.5 H ABG Base Excess 7.6 H Respiration Rate Not Reportable O2 Delivery Device nasal cannula 4lpm Ventilator Type Not Reportable Vent Mode Not Reportable FiO2 Not Reportable Inspiratory Time Not Reportable PEEP Not Reportable Pressure Support Not Reportable Pressure Control Not Reportable EPAP Not Reportable IPAP Not Reportable BiPAP Not Reportable Sodium Potassium 6.3 H* Chloride Carbon Dioxide Anion Gap 7 BUN Creatinine Est GFR ( Amer) Est GFR (Non-Af Amer) BUN/Creatinine Ratio Glucose Calcium Phosphorus Magnesium AST 37 Troponin I 06/30/18 06/30/18 07/01/18 10:37 17:30 05:40 WBC RBC Hgb Hct MCV MCH MCHC RDW Plt Count MPV Neut % (Auto) Lymph % (Auto) [place] % (Auto) Eos % (Auto) Baso % (Auto) Absolute Neuts (auto) Absolute Lymphs (auto) Absolute Monos (auto) Absolute Eos (auto) Absolute Basos (auto) Absolute Nucleated RBC Nucleated RBC % INR (Anticoag Therapy) APTT Patient Temperature ABG pH ABG pH (Temp Correct) ABG pCO2 ABG pCO2 (Temp Corrct ABG pO2 ABG pO2 (Temp Correct ABG HCO3 ABG O2 Saturation ABG Base Excess Respiration Rate O2 Delivery Device Ventilator Type Vent Mode FiO2 Inspiratory Time PEEP Pressure Support Pressure Control EPAP IPAP BiPAP Sodium 134 L Potassium 5.4 H Chloride 92 L Carbon Dioxide 34 H Anion Gap 8 BUN 38 H Creatinine 5.86 H Est GFR ( Amer) 11.8 Est GFR (Non-Af Amer) 9.7 BUN/Creatinine Ratio 6.5 L Glucose 79 Calcium 9.3 Phosphorus 2.4 L Magnesium 2.2 AST Troponin I 0.04 H* 0.05 H* 07/01/18 07/01/18 05:40 05:40 WBC 4.0 RBC 3.38 L Hgb 9.8 L Hct 30 L MCV 89 MCH 29 MCHC 32 RDW 18 H Plt Count 104 L MPV 8.6 Neut % (Auto) 58.1 Lymph % (Auto) 20.5 L [place] % (Auto) 18.3 H Eos % (Auto) 1.8 Baso % (Auto) 1.3 Absolute Neuts (auto) 2.3 Absolute Lymphs (auto) 0.8 L Absolute Monos (auto) 0.7 Absolute Eos (auto) 0.1 Absolute Basos (auto) 0.1 Absolute Nucleated RBC 0 Nucleated RBC % 0.1 INR (Anticoag Therapy) 3.10 H APTT Patient Temperature ABG pH ABG pH (Temp Correct) ABG pCO2 ABG pCO2 (Temp Corrct ABG pO2 ABG pO2 (Temp Correct ABG HCO3 ABG O2 Saturation ABG Base Excess Respiration Rate O2 Delivery Device Ventilator Type Vent Mode FiO2 Inspiratory Time PEEP Pressure Support Pressure Control EPAP IPAP BiPAP Sodium Potassium Chloride Carbon Dioxide Anion Gap BUN Creatinine Est GFR ( Amer) Est GFR (Non-Af Amer) BUN/Creatinine Ratio Glucose Calcium Phosphorus Magnesium AST Troponin I Studies: CXR 06/30/18 IMPRESSION: 1. CARDIOMEGALY. 2. PULMONARY INTERSTITIAL EDEMA. 3. BILATERAL PLEURAL EFFUSIONS. 4. PATCHY AIRSPACE DISEASE OF THE LOWER LUNGS BILATERALLY. 5. THE APPEARANCE IS SIMILAR TO THE PREVIOUS EXAMINATION. Impression: 67M with htn, hld, depression, gerd, hcv, h/o dvt, chronic pancreatitits, AFib, cad s/p cabg, chf (ef 35%), esrd on hd presents with shortness of breath 2/2 volume overload, hyperkalemia, hypertensive urgency Plan: Neuro - neuropathy - c/w gabapentin prn - pain control CV - htn, hld, cad, chf, afib, hypertensive urgency 1. hypertensive urgency - resolved - c/w home bp meds 2. afib - rate control with coreg - ac with coumadin - goal INR 2-3 3. acute chf exacerbation - volume removal with hd - strict i/o, daily weights - bipap as needed 4. hld/CAD - c/w asa/statin Pulm - dypnea - multifactorial - supplemental o2 prn - bipap prn ID - given abx in ER - wbc normal - afebrile - hold off on further abx GI - gerd, pancreatitis - c/w creon - c/w h2 chris Renal - esrd on hd, hyperkalemia - HD per renal - patient refuses kayexelate, r/b/a explained Heme - anemia - c/w iron Endo - check fs, niss Lines - piv, left chest permcath PPx - gi/dvt Full Code Transfer to floor. Case discussed with Dr. Brothers. Critical Care Time: 40 mins
[2018-07-01] MEDS ORDERED: CMC:Escitalopram (NF) 10 MG TAB PO SCH (09:00)
[2018-07-01] MEDS ORDERED: CMC:Simvastatin TAB(NF) 10 MG TAB PO SCH (09:00)
[2018-07-01] MEDS ORDERED: Cinacalcet TAB* 30 MG PO SCH (09:00)
[2018-07-01] MEDS ORDERED: Lisinopril TAB* 10 MG PO SCH (09:00)
[2018-07-01] MEDS ORDERED: Multivitamins/Minerals TAB PO SCH (09:00)
[2018-07-01] MEDS: PANCRELIPASE 3000 UNIT PO SCH (09:37)
[2018-07-01] MEDS: hydrALAZINE TAB* 25 MG PO SCH (09:38)
[2018-07-01] MEDS: amLODIPine TAB* 5 MG PO SCH (09:43)
[2018-07-01] MEDS: Isosorbide Mononitrate ER TAB* 60 MG PO SCH (09:44)
[2018-07-01] MEDS: LUBIPROSTONE 24 MCG PO SCH (09:51)
[2018-07-01] MEDS: Omeprazole CAP* 20 MG PO SCH (09:51)
[2018-07-01 11:45] VITALS: BP 157/102
--- NOTE | 2018-07-02 01:51 | DS ---
CC: Dr. Marielena Vargas * DISCHARGE SUMMARY: DATE OF ADMISSION: 06/30/18. DATE OF DISCHARGE AGAINST MEDICAL ADVICE: 07/01/18. PRIMARY CARE PROVIDER: Marielena Vargas MD. VP DATA: Dr. Dalal. DISCHARGE DIAGNOSES: 1. Hypertensive urgency. 2. Respiratory failure secondary to fluid overload. 3. Hyperkalemia. SECONDARY DIAGNOSES: 1. End-stage renal disease, on hemodialysis. 2. Upper extremity deep vein thrombosis. 3. Coronary artery disease. 4. Cardiomyopathy, ejection fraction of 35 to 40%. 5. Atrial fibrillation, on Coumadin. 6. Peripheral vascular disease. 7. Hepatitis C. 8. Gastroesophageal reflux disease. 9. Depression. 10. Hypertension. 11. Hyperlipidemia. 12. Status post mitral anterior and posterior valve repair. 13. Status post implantable cardioverter defibrillator. 14. Chronic pancreatitis. 15. Chronic pain. MEDICATIONS LIST: 1. Acetaminophen 650 mg p.o. q.4 hours p.r.n. pain or fever. 2. Albuterol HFA 2 puffs inhale q.4 hours p.r.n. shortness of breath. 3. Amlodipine 10 mg p.o. daily. 4. Carvedilol 25 mg p.o. b.i.d. 5. Senokot 60 mg p.o. daily. 6. Cyclobenzaprine 10 mg p.o. t.i.d. as needed for muscle spasms. 7. Colace 100 mg p.o. b.i.d. as needed for constipation. 8. Citalopram 10 mg p.o. daily. 9. Nephro-Dameon 1 tablet p.o. daily. 10. Furosemide 10 mg p.o. daily. 11. Gabapentin 300 mg p.o. t.i.d. 12. Hydralazine 25 mg p.o. t.i.d. 13. Ibuprofen 300 mg p.o. t.i.d. p.r.n. pain. 14. Imdur 60 mg p.o. daily. 15. Lisinopril 10 mg p.o. daily. 16. Lorazepam 25 mg p.o. at bedtime as needed for anxiety. 17. Amitiza 24 mcg p.o. b.i.d. 18. Nitroglycerin 0.4 mg sublingually q.5 minutes p.r.n. chest pain. 19. Omeprazole 5 mg p.o. b.i.d. 20. Ondansetron 40 mg p.o. q.6 hours p.r.n. nausea. 21. Oxycodone 15 mg p.o. q. 6 hours p.r.n. pain. 22. Pancrelipase 1 capsule p.o. daily. 23. Ranitidine 150 mg p.o. daily. 24. Simvastatin 5 mg p.o. at bedtime. 25. Kayexalate 15 g p.o. as needed on missed dialysis days. 25. Velphoro 1000 mg p.o. t.i.d. with meals. 26. Trazodone 100 mg p.o. at bedtime. 27. Warfarin 5 mg p.o. daily. 28. Zolpidem 10 mg p.o. at bedtime as needed for insomnia. HOSPITAL COURSE: Mr. Templeton is a 67-year-old male well known to the hospitalist service that presented to the emergency room with complaints of shortness of breath, found to have a hypertensive urgency, with initial blood pressure of 250 /82. The patient was admitted to the intensive care unit. He had initially presented to hemodialysis, but was not feeling well. His session was interrupted and he was transferred to the hospital. He was feeling short of breath for several days with chest tightness. As described, the patient had a sytolic blood pressure of 250. Chest x-ray was consistent with volume overload and he was admitted to the intensive care unit and started on a Nitro drip and admitted for urgent hemodialysis. For more details about his presentation, I refer you to Dr. Allen's history and physical. The patient had improvement of his blood pressure and of his shortness of breath. He was transferred out of the unit today and upon arrival to floor, when nurses went to do a four-eyed skin check, the patient became upset because they wanted to see his buttocks area. As per nursing report, the patient had prior episodes of lethargy requiring Narcan even when he did not receive opioids in the hospital and he was reportedly found to have hidden pills in his skin folds , clothes, and socks. The patient became very offended by their statements and requested to be discharged immediately. I came to the bedside and I talked to him about his condition. I told him that although he is doing better now then when he came to the emergency room, he should not be discharged yet and the plan would be to titrate his blood pressure medications further and he is scheduled to have a dialysis tomorrow. I 'm concerned he may have another blood pressure spike, complicated by chest pain , respiratory failure, as he has had many times in the past, and this could culminate with his . The patient verbalized understanding of the explantations, risks and benefits, but states that he will not stay in the hospital anymore and that he can go to his dialysis tomorrow as scheduled. He is not confused and I believe he has the mental capacity to make decisions even though I do not agree with them. The patient is extremely noncompliant and has frequent admissions and ED visits. In the first 2 weeks of June, the patient has had 5 visits already. He will be discharged from the hospital today against medical advice. He will follow up with his PCP and he's opioid use as described above should be addressed. DIET: Heart-heathy renal diet with fluid restriction 1.5 liter a day. ACTIVITIES: As tolerated. DISPOSITION: To home against medical advice. STATUS WHILE IN THE HOSPITAL: Inpatient. Please keep in mind this is a summarized version of this patient's hospital stay. If you need more information, please feel free to call me at [phone] or please obtain the full medical records. TIME SPENT: Approximately 40 minutes were spent to complete this discharge. [id number]/CPS #: [id number] STEPHANIE
== END 2018-07-01 13:15 | disposition left against medical advice (07) | DRG 304 ==
LOC: ED 07:08 → ICU 08:41 → MEDTELE 07-01 11:13
PROVIDERS: ADMIT Internal Medicine; ATTEND Internal Medicine
PROC: 5A1D70Z Performance of Urinary Filtration, Intermittent, Less than 6 Hours Per Day (ICD-10-PCS; principal; 2018-06-30)
DX: I16.0 Hypertensive urgency (principal); N18.6 End stage renal disease; J96.90 Respiratory failure, unspecified, unspecified whether with hypoxia or hypercapnia; K86.1 Other chronic pancreatitis; I42.9 Cardiomyopathy, unspecified; J81.1 Chronic pulmonary edema; J90 Pleural effusion, not elsewhere classified; I13.2 Hypertensive heart and chronic kidney disease with heart failure and with stage 5 chronic kidney disease, or end stage renal disease; E78.5 Hyperlipidemia, unspecified; F32.9 Major depressive disorder, single episode, unspecified; K21.9 Gastro-esophageal reflux disease without esophagitis; I48.91 Unspecified atrial fibrillation; I25.10 Atherosclerotic heart disease of native coronary artery without angina pectoris; I50.9 Heart failure, unspecified; E87.5 Hyperkalemia; E87.70 Fluid overload, unspecified; G62.9 Polyneuropathy, unspecified; D63.1 Anemia in chronic kidney disease; J44.9 Chronic obstructive pulmonary disease, unspecified; I73.9 Peripheral vascular disease, unspecified; K74.60 Unspecified cirrhosis of liver; M19.90 Unspecified osteoarthritis, unspecified site; H40.9 Unspecified glaucoma; G43.909 Migraine, unspecified, not intractable, without status migrainosus; F41.9 Anxiety disorder, unspecified; B19.20 Unspecified viral hepatitis C without hepatic coma; G89.29 Other chronic pain; Z53.21 Procedure and treatment not carried out due to patient leaving prior to being seen by health care provider; Z86.19 Personal history of other infectious and parasitic diseases; Z86.718 Personal history of other venous thrombosis and embolism; Z95.1 Presence of aortocoronary bypass graft; Z99.2 Dependence on renal dialysis; Z88.5 Allergy status to narcotic agent; Z88.8 Allergy status to other drugs, medicaments and biological substances; Z82.0 Family history of epilepsy and other diseases of the nervous system; Z95.810 Presence of automatic (implantable) cardiac defibrillator; Z87.01 Personal history of pneumonia (recurrent); Z99.81 Dependence on supplemental oxygen; Z82.49 Family history of ischemic heart disease and other diseases of the circulatory system; Z82.3 Family history of stroke; Z87.891 Personal history of nicotine dependence; Z79.01 Long term (current) use of anticoagulants; R07.89 Other chest pain; R06.02 Shortness of breath; I12.0 Hypertensive chronic kidney disease with stage 5 chronic kidney disease or end stage renal disease; I51.7 Cardiomegaly; Z88.6 Allergy status to analgesic agent
CPT/HCPCS: 36415; 71045; 80048; 80053; 82803; 83605; 83735; 84100; 84484; 85025; 85610; 85730; 90935; 93005; 99285; A9270-GY; G0257; J0692; J0744; J1644; J1940

== ENCOUNTER 2018-07-05 20:11 | Emergency (ER) | payer MEDICARE, MEDICAID ==
[2018-07-05] MEDS ORDERED: Morphine INJ** 4 MG/ML 1 ML CARPUJECT IV ONE (20:32)
[2018-07-05] MEDS ORDERED: Morphine INJ* 2 MG/ML 1 ML SYRINGE (TWO MG - NEW SYRINGE VERSION) ONE ×2 (20:47→20:48)
[2018-07-05] MEDS ORDERED: Ondansetron INJ* 2 MG/ML VIAL ONE (20:53)
[2018-07-05] MEDS ORDERED: Ondansetron INJ* 2 MG/ML VIAL IV ONE (20:54)
--- NOTE | 2018-07-05 21:26 | ED ---
Complex/Multi-Sys Presentation - HPI Summary HPI Summary: Pt is a 67 y/o male BIBA who presents to the ED c/o extremity pain. He also c/o SOB and chest tightness. Pt was given a Duoneb treatment and NTG by EMS, which helped his symptoms. He has ESRD and had dialysis this morning. Pt is here frequently for chronic pain. He denies smoking tobacco, but states he smokes marijuana. - History Of Current Complaint Time Seen by Provider: 07/05/18 20:22 Hx Obtained From: Patient Onset/Duration: Gradual Onset, Lasting Hours - After dialysis, Still Present Timing: Constant Associated Signs And Symptoms: Positive: SOB, Chest Pain Related History: Similar Episode/Diagnosed As: - Here frequently after dialysis - Allergies/Home Medications Allergies/Adverse Reactions: Allergies Allergy/AdvReac Type Severity Reaction Status Date / Time aspirin Allergy "Ever Verified 06/28/18 10:10 since i was a boy i was told not to take aspirin" hydromorphone AdvReac Pt states Verified 06/28/18 10:10 "he feels like a junky" PMH/Surg Hx/FS Hx/Imm Hx Endocrine/Hematology History: Reports: Hx Blood Transfusions, Hx Sickle Cell Disease - Was told had sickle cell at one point but denies, Hx Anemia Denies: Hx Anticoagulant Therapy, Hx Bone Marrow Disease, Hx Diabetes, Hx Thyroid Disease, Hx Unexplained Bleeding Cardiovascular History: Reports: Hx Angina, Hx Auto Implanted Cardiovert Defib, Hx Congestive Heart Failure, Hx Coronary Artery Disease, Hx Deep Vein Thrombosis , Hx Hypertension, Hx Pacemaker/ICD, Hx Peripheral Vascular Disease, Hx Syncope , Other Cardiovascular Problems/Disorders - cardiomegaly, mitral valve and tricuspid valve repair Denies: Hx Aneurysm, Hx Cardiomegaly, Hx Hypercholesterolemia, Hx Myocardial Infarction, Hx Rheumatic Fever, Hx Valvular Heart Disease Respiratory History: Reports: Hx Asthma - 3L Home O2, Hx Chronic Obstructive Pulmonary Disease (COPD), Hx Pleural Effusion, Hx Pneumonia, Other Respiratory Problems/Disorders Denies: Hx Pulmonary Edema, Hx Pulmonary Embolism, Hx Sleep Apnea GI History: Reports: Hx Cirrhosis, Hx Gastroesophageal Reflux Disease, Hx Ulcer - peptic ulcer, Other GI Disorders - hep C Denies: Hx Crohn's Disease, Hx Hiatal Hernia, Hx Irritable Bowel, Hx Jaundice History: Reports: Hx Acute Renal Failure, Hx Chronic Renal Failure, Hx Dialysis, Hx Renal Disease, Other Problems/Disorders - end stage renal disease, on dialysis Denies: Hx Kidney Infection, Hx Kidney Stones Musculoskeletal History: Reports: Hx Arthritis, Hx Back Problems - chronic pain , Hx Orthopedic Injury Denies: Hx Rheumatoid Arthritis, Hx Bursitis, Hx Fibromyalgia, Hx Gout, Hx Osteoporosis, Hx Scoliosis, Hx Tendonitis, Other Musculoskeletal History Sensory History: Reports: Hx Contacts or Glasses - glasses are at home, Hx Glaucoma, Hx Vision Problem Denies: Hx Cataracts, Hx Eye Injury, Hx Eye Prosthesis, Hx Legally Blind, Hx Macular Degeneration, Hx Deafness, Hx Hearing Aid, Hx Hearing Problem, Other Sensory Impairments Opthamlomology History: Reports: Hx Contacts or Glasses - glasses are at home, Hx Glaucoma, Hx Vision Problem Denies: Hx Cataracts, Hx Eye Injury, Hx Eye Prosthesis, Hx Legally Blind, Hx Macular Degeneration, Other Sensory Impairments Neurological History: Reports: Hx Headaches, Hx Migraine, Other Neuro Impairments/Disorders - depression Denies: Hx Dementia, Hx Developmental Delay, Hx Seizures, Hx Spinal Cord Injury, Hx Transient Ischemic Attacks (TIA) Psychiatric History: Reports: Hx Anxiety, Hx Depression, Hx Substance Abuse - ETOH Denies: Hx Eating Disorder, Hx Panic Disorder, Hx Post Traumatic Stress Disorder, Hx Community Mental Health Tx, Hx Schizophrenia, Hx Bipolar Disorder, Hx Suicide Attempt, Hx of Violent Episodes Against Others - Cancer History Hx Chemotherapy: No Hx Radiation Therapy: No Hx Palliative Cancer Treatment: No - Surgical History Surgery Procedure, Year, and Place: HERNIA REPAIR 2012. APPENDECTOMY 2000. LEFT ARM AV FISTULA/CAD - REMOVED. CABG 1 vessel, mitral & tricuspid valve repair March 02, 2014 AT [facility] CONDITIONAL 5 UPTO 3T. POWER PORT. Mitral and tricuspid valve repair Hx Anesthesia Reactions: No - Immunization History Date of Tetanus Vaccine: unk Date of Influenza Vaccine: unk Infectious Disease History: No Infectious Disease History: Reports: Hx Hepatitis - Hep C, Hx of Known/ Suspected MRSA, History Other Infectious Disease - Hepatitis C Denies: Hx Clostridium Difficile, Hx Human Immunodeficiency Virus (HIV), Hx Shingles, Hx Tuberculosis, Hx Known/Suspected VRE, Hx Known/Suspected VRSA, Traveled Outside the [place] in Last 30 Days - Family History Known Family History: Positive: Cardiac Disease, Hypertension, Other - CVA - Social History Alcohol Use: None Alcohol Amount: former EtOH abuse Hx Substance Use: Yes Substance Use Type: Reports: None Substance Use Comment - Amount & Last Used: for pain, no longer takes marijuana Hx Tobacco Use: Yes Smoking Status (MU): Former Smoker Type: Cigarettes Amount Used/How Often: 1/2 ppd Length of Time of Smoking/Using Tobacco: 10 years Have You Smoked in the Last Year: No Review of Systems Positive: Chest Pain Positive: Shortness Of Breath Positive: Myalgia - Extremity pain, Edema All Other Systems Reviewed And Are Negative: Yes Physical Exam - Summary Physical Exam Summary: Appearance: Well appearing, no pain distress Skin: warm, dry, reflects adequate perfusion, old fistula on RUE, dialysis catheter in left chest Head/face: normal Eyes: EOMI, KINGS ENT: normal Neck: supple, non-tender Respiratory: fine crackles to right base, breath sounds present Cardiovascular: RRR, pulses symmetrical, 1-2+ pitting edema bilaterally, mild JVD Abdomen: non-tender, soft Bowel Sounds: present Musculoskeletal: normal, strength/ROM intact Neuro: normal, sensory motor intact, A&Ox3 Triage Information Reviewed: Yes Vital Signs On Initial Exam: Initial Vitals Temp Pulse Resp BP Pulse Ox 97.8 F 82 24 211/132 96 07/05/18 20:26 07/05/18 20:26 07/05/18 20:26 07/05/18 20:26 07/05/18 20:26 Vital Signs Reviewed: Yes Diagnostics - Vital Signs Vital Signs Temp Pulse Resp BP Pulse Ox 07/05/18 20:51 21 07/05/18 20:26 97.8 F 79 25 211/132 97 - Laboratory Lab Statement: Any lab studies that have been ordered have been reviewed, and results considered in the medical decision making process. Complex Multi-Symp Course/Dx Course Of Treatment: Patient is extremely well-known to the ER and presents with exacerbation of his chronic pain. He asked for compression garments and something for his pain. This was given through IV as he had one placed prehospital. He is not due for his dialysis for another 2 days. - Diagnoses Provider Diagnoses: ESRD (end stage renal disease) on dialysis, Chronic pain syndrome Discharge - Sign-Out/Discharge Documenting (check all that apply): Patient Departure - Discharge - Discharge Plan Condition: Improved Disposition: HOME Prescriptions: Albuterol HFA INHALER* [Ventolin HFA Inhaler*] 2 puff INH Q4H PRN #1 mdi PRN Reason: Shortness Of Breath Patient Education Materials: Chronic Pain (ED) Referrals: Marielena Vargas MD [Primary Care Provider] - Additional Instructions: Return if worse, new symptoms or other concerns. Work impressions stockings to help with leg swelling. - Billing Disposition and Condition Condition: IMPROVED Disposition: Home - Attestation Statements Document Initiated by Scribe: Yes Documenting Scribe: Sharla Joyce Provider For Whom Karenibe is Documenting (Include Credential): Keagan Copeland MD Scribe Attestation: Sharla Briones, scribed for Keagan Copeland MD on 07/06/18 at 0618. Scribe Documentation Reviewed: Yes Provider Attestation: The documentation as recorded by the Sharla casey accurately reflects the service I personally performed and the decisions made by Keagan washington MD
[2018-07-05 22:38] VITALS: BP 150/105
== END 2018-07-05 22:37 | disposition home or self-care (01) ==
LOC: ED 20:11
DX: N18.6 End stage renal disease (principal); G89.4 Chronic pain syndrome; Z87.891 Personal history of nicotine dependence; Z99.2 Dependence on renal dialysis
CPT/HCPCS: 96374; 96375; 99283; J2270; J2405

== ENCOUNTER 2018-07-06 23:11 | Emergency (ER) | payer MEDICARE, MEDICAID ==
[2018-07-06] MEDS ORDERED: Albuterol/Ipratropium NEB.SOL* Albuterol 2.5 MG/Ipratropium 0.5 MG 3 ML INH ONE (23:22)
--- NOTE | 2018-07-06 23:38 | ED ---
Shortness of Breath - HPI Summary HPI Summary: Pt is a 67 y/o male BIBA who presents to the ED c/o SOB. He states that the SOB is worst when lying flat. Pt comes here frequently due to his chronic pain and ESRD. He states I cant take this anymore. He also c/o fluid overload in his LE and abdomen. Pt is due for dialysis tomorrow morning. The possibility of hospice care was discussed. Pt states he does not want to stop doing dialysis, because he wants to naturally. He requests a breathing treatment and is unsure if he wants pain medications. - History of Current Complaint Time Seen by Provider: 07/06/18 23:16 Hx Obtained From: Patient Onset/Duration: Gradual Onset, Lasting Weeks, Still Present Timing: Constant Dyspnea At: Orth[facility] Alleviating Factors: Nothing Associated Signs & Symptoms: Edema Related History: Similar Episode - Allergy/Home Medications Allergies/Adverse Reactions: Allergies Allergy/AdvReac Type Severity Reaction Status Date / Time aspirin Allergy "Ever Verified 06/28/18 10:10 since i was a boy i was told not to take aspirin" hydromorphone AdvReac Pt states Verified 06/28/18 10:10 "he feels like a junky" PMH/Surg Hx/FS Hx/Imm Hx Endocrine/Hematology History: Reports: Hx Blood Transfusions, Hx Sickle Cell Disease - Was told had sickle cell at one point but denies, Hx Anemia Denies: Hx Anticoagulant Therapy, Hx Bone Marrow Disease, Hx Diabetes, Hx Thyroid Disease, Hx Unexplained Bleeding Cardiovascular History: Reports: Hx Angina, Hx Auto Implanted Cardiovert Defib, Hx Congestive Heart Failure, Hx Coronary Artery Disease, Hx Deep Vein Thrombosis , Hx Hypertension, Hx Pacemaker/ICD, Hx Peripheral Vascular Disease, Hx Syncope , Other Cardiovascular Problems/Disorders - cardiomegaly, mitral valve and tricuspid valve repair Denies: Hx Aneurysm, Hx Cardiomegaly, Hx Hypercholesterolemia, Hx Myocardial Infarction, Hx Rheumatic Fever, Hx Valvular Heart Disease Respiratory History: Reports: Hx Asthma - 3L Home O2, Hx Chronic Obstructive Pulmonary Disease (COPD), Hx Pleural Effusion, Hx Pneumonia, Other Respiratory Problems/Disorders Denies: Hx Pulmonary Edema, Hx Pulmonary Embolism, Hx Sleep Apnea GI History: Reports: Hx Cirrhosis, Hx Gastroesophageal Reflux Disease, Hx Ulcer - peptic ulcer, Other GI Disorders - hep C Denies: Hx Crohn's Disease, Hx Hiatal Hernia, Hx Irritable Bowel, Hx Jaundice History: Reports: Hx Acute Renal Failure, Hx Chronic Renal Failure, Hx Dialysis, Hx Renal Disease, Other Problems/Disorders - end stage renal disease, on dialysis Denies: Hx Kidney Infection, Hx Kidney Stones Musculoskeletal History: Reports: Hx Arthritis, Hx Back Problems - chronic pain , Hx Orthopedic Injury Denies: Hx Rheumatoid Arthritis, Hx Bursitis, Hx Fibromyalgia, Hx Gout, Hx Osteoporosis, Hx Scoliosis, Hx Tendonitis, Other Musculoskeletal History Sensory History: Reports: Hx Contacts or Glasses - glasses are at home, Hx Glaucoma, Hx Vision Problem Denies: Hx Cataracts, Hx Eye Injury, Hx Eye Prosthesis, Hx Legally Blind, Hx Macular Degeneration, Hx Deafness, Hx Hearing Aid, Hx Hearing Problem, Other Sensory Impairments Opthamlomology History: Reports: Hx Contacts or Glasses - glasses are at home, Hx Glaucoma, Hx Vision Problem Denies: Hx Cataracts, Hx Eye Injury, Hx Eye Prosthesis, Hx Legally Blind, Hx Macular Degeneration, Other Sensory Impairments Neurological History: Reports: Hx Headaches, Hx Migraine, Other Neuro Impairments/Disorders - depression Denies: Hx Dementia, Hx Developmental Delay, Hx Seizures, Hx Spinal Cord Injury, Hx Transient Ischemic Attacks (TIA) Psychiatric History: Reports: Hx Anxiety, Hx Depression, Hx Substance Abuse - ETOH Denies: Hx Eating Disorder, Hx Panic Disorder, Hx Post Traumatic Stress Disorder, Hx Community Mental Health Tx, Hx Schizophrenia, Hx Bipolar Disorder, Hx Suicide Attempt, Hx of Violent Episodes Against Others - Cancer History Hx Chemotherapy: No Hx Radiation Therapy: No Hx Palliative Cancer Treatment: No - Surgical History Surgery Procedure, Year, and Place: HERNIA REPAIR 2012. APPENDECTOMY 2000. LEFT ARM AV FISTULA/CAD - REMOVED. CABG 1 vessel, mitral & tricuspid valve repair March 02, 2014 AT [facility] CONDITIONAL 5 UPTO 3T. POWER PORT. Mitral and tricuspid valve repair Hx Anesthesia Reactions: No - Immunization History Date of Tetanus Vaccine: unk Date of Influenza Vaccine: unk Infectious Disease History: Reports: Hx Hepatitis - Hep C, Hx of Known/ Suspected MRSA, History Other Infectious Disease - Hepatitis C Denies: Hx Clostridium Difficile, Hx Human Immunodeficiency Virus (HIV), Hx Shingles, Hx Tuberculosis, Hx Known/Suspected VRE, Hx Known/Suspected VRSA - Family History Known Family History: Positive: Cardiac Disease, Hypertension, Other - CVA - Social History Alcohol Use: None Alcohol Amount: former EtOH abuse Hx Substance Use: Yes Substance Use Type: Reports: None Substance Use Comment - Amount & Last Used: for pain, no longer takes marijuana Hx Tobacco Use: Yes Smoking Status (MU): Former Smoker Type: Cigarettes Amount Used/How Often: 1/2 ppd Length of Time of Smoking/Using Tobacco: 10 years Have You Smoked in the Last Year: No Review of Systems Positive: Shortness Of Breath Positive: Edema All Other Systems Reviewed And Are Negative: Yes Physical Exam - Summary Physical Exam Summary: Appearance: Well appearing, no pain distress Skin: warm, dry, reflects adequate perfusion, dialysis catheter in right chest, old fistula in right forearm Head/face: normal Eyes: EOMI, KINGS ENT: normal Neck: supple, non-tender Respiratory: crackles in bases, breath sounds present Cardiovascular: RRR, pulses symmetrical, 2-3+ pitting edema in LE Abdomen: non-tender, soft, mid-abdominal hernia Bowel Sounds: present Musculoskeletal: normal, strength/ROM intact Neuro: normal, sensory motor intact, A&Ox3 Triage Information Reviewed: Yes Vital Signs Reviewed: Yes Re-Evaluation - Re-Evaluation Second Eval Re-Evaluation Time: 23:30 Change: Unchanged Comment: Discussed the option of palliative care in depth. Course/Dx - Course Course Of Treatment: Mr. Templeton presents for the second time in as many days and is very well-known to me. He complains of minor shortness of breath and would like a breathing treatment and something for pain. This was given. He also shared that he is getting very frustrated with his chronic health condition. He is looking for alternatives to help him enjoy his life more. He states that he is not ready for hospice care and would like to continue with dialysis. I have recommended palliative care and have provided numbers for him. He is due for dialysis in the morning. - Diagnoses Differential Diagnosis/HQI/PQRI: Positive: Other - Chronic CHF with fluid overload, end-stage renal disease on dialysis, depression, adjustment disorder Provider Diagnoses: ESRD (end stage renal disease) on dialysis, Dyspnea, Fluid overload Discharge - Sign-Out/Discharge Documenting (check all that apply): Patient Departure - Discharge - Discharge Plan Condition: Improved Disposition: HOME Patient Education Materials: Dialysis Diet (DC) Referrals: Marielena Vargas MD [Primary Care Provider] - Additional Instructions: Contact [facility] at for palliative care. They may be able to help you gain some comfort while you continue on dialysis. Return if worse or other concerns. Have dialysis in the morning. - Billing Disposition and Condition Condition: IMPROVED Disposition: Home - Attestation Statements Document Initiated by Karenibe: Yes Documenting Scribe: Sharla Joyce Provider For Whom Scribe is Documenting (Include Credential): Keagan Copeland MD Scribe Attestation: ISharla, scribed for Keagan Copeland MD on 07/07/18 at 0048. Scribe Documentation Reviewed: Yes Provider Attestation: The documentation as recorded by the Sharla casey accurately reflects the service I personally performed and the decisions made by , Keagan Copeland MD
[2018-07-06] MEDS ORDERED: oxyCODONE/Acetamin 5/325 MG* TAB PO ONE (23:43)
[2018-07-07 03:20] VITALS: BP 174/122
== END 2018-07-07 03:10 | disposition home or self-care (01) ==
LOC: ED 23:11
DX: R06.00 Dyspnea, unspecified (principal); R60.9 Edema, unspecified; N18.6 End stage renal disease; Z99.2 Dependence on renal dialysis; Z95.810 Presence of automatic (implantable) cardiac defibrillator; Z99.81 Dependence on supplemental oxygen; Z95.1 Presence of aortocoronary bypass graft; Z88.6 Allergy status to analgesic agent; Z88.5 Allergy status to narcotic agent; Z87.891 Personal history of nicotine dependence
CPT/HCPCS: 99283; A9270-GY

== ENCOUNTER 2018-07-15 18:40 | Emergency (ER) | payer MEDICARE, MEDICAID ==
[2018-07-15] MEDS ORDERED: oxyCODONE/Acetamin 5/325 MG* TAB PO ONE (20:00)
--- NOTE | 2018-07-15 20:02 | ED ---
HPI Chest Pain - HPI Summary HPI Summary: This patient is a 67 year old M presenting to [facility] with a chief complaint of diffuse left sided chest pain since 17:00 today. He is well known to the ED Physician, as he has had multiple visits to the ED for pain complaints. The patient rates the pain 3/10 in severity. Patient reports abdominal pain, blood in my penis, sore and swollen LLE, and preexisting sore and swollen RLE. Patient denies radiating CP and difficulty breathing. Patient had dialysis yesterday and is scheduled for dialysis tomorrow. He requested for his legs to be wrapped. - History of Current Complaint Chief Complaint: EDChestWallPain Time Seen by Provider: 07/15/18 19:46 Hx Obtained From: Patient Onset/Duration: Started Hours Ago - 17:00 today Timing: Constant Initial Severity: Moderate Current Severity: Moderate Pain Intensity: 3 Pain Scale Used: 0-10 Numeric Chest Pain Location: Diffuse Chest Pain Radiates: No Associated Signs and Symptoms: Positive: Chest Pain - CP that does not radiate, Abdominal Pain, Other: - "blood in my penis," sore and swollen LLE, and preexisting sore and swollen RLE. Negative: Shortness of Breath - Additional Pertinent History Primary Care Physician: YARIEL - Allergy/Home Medications Allergies/Adverse Reactions: Allergies Allergy/AdvReac Type Severity Reaction Status Date / Time aspirin Allergy "Ever Verified 06/28/18 10:10 since i was a boy i was told not to take aspirin" hydromorphone AdvReac Pt states Verified 06/28/18 10:10 "he feels like a junky" PMH/Surg Hx/FS Hx/Imm Hx Endocrine/Hematology History: Reports: Hx Blood Transfusions, Hx Sickle Cell Disease - Was told had sickle cell at one point but denies, Hx Anemia Denies: Hx Anticoagulant Therapy, Hx Bone Marrow Disease, Hx Diabetes, Hx Thyroid Disease, Hx Unexplained Bleeding Cardiovascular History: Reports: Hx Angina, Hx Auto Implanted Cardiovert Defib, Hx Congestive Heart Failure, Hx Coronary Artery Disease, Hx Deep Vein Thrombosis , Hx Hypertension, Hx Pacemaker/ICD, Hx Peripheral Vascular Disease, Hx Syncope , Other Cardiovascular Problems/Disorders - cardiomegaly, mitral valve and tricuspid valve repair Denies: Hx Aneurysm, Hx Cardiomegaly, Hx Hypercholesterolemia, Hx Myocardial Infarction, Hx Rheumatic Fever, Hx Valvular Heart Disease Respiratory History: Reports: Hx Asthma - 3L Home O2, Hx Chronic Obstructive Pulmonary Disease (COPD), Hx Pleural Effusion, Hx Pneumonia, Other Respiratory Problems/Disorders Denies: Hx Pulmonary Edema, Hx Pulmonary Embolism, Hx Sleep Apnea GI History: Reports: Hx Cirrhosis, Hx Gastroesophageal Reflux Disease, Hx Ulcer - peptic ulcer, Other GI Disorders - hep C Denies: Hx Crohn's Disease, Hx Hiatal Hernia, Hx Irritable Bowel, Hx Jaundice History: Reports: Hx Acute Renal Failure, Hx Chronic Renal Failure, Hx Dialysis, Hx Renal Disease, Other Problems/Disorders - end stage renal disease, on dialysis Denies: Hx Kidney Infection, Hx Kidney Stones Musculoskeletal History: Reports: Hx Arthritis, Hx Back Problems - chronic pain , Hx Orthopedic Injury Denies: Hx Rheumatoid Arthritis, Hx Bursitis, Hx Fibromyalgia, Hx Gout, Hx Osteoporosis, Hx Scoliosis, Hx Tendonitis, Other Musculoskeletal History Sensory History: Reports: Hx Contacts or Glasses - glasses are at home, Hx Glaucoma, Hx Vision Problem Denies: Hx Cataracts, Hx Eye Injury, Hx Eye Prosthesis, Hx Legally Blind, Hx Macular Degeneration, Hx Deafness, Hx Hearing Aid, Hx Hearing Problem, Other Sensory Impairments Opthamlomology History: Reports: Hx Contacts or Glasses - glasses are at home, Hx Glaucoma, Hx Vision Problem Denies: Hx Cataracts, Hx Eye Injury, Hx Eye Prosthesis, Hx Legally Blind, Hx Macular Degeneration, Other Sensory Impairments Neurological History: Reports: Hx Headaches, Hx Migraine, Other Neuro Impairments/Disorders - depression Denies: Hx Dementia, Hx Developmental Delay, Hx Seizures, Hx Spinal Cord Injury, Hx Transient Ischemic Attacks (TIA) Psychiatric History: Reports: Hx Anxiety, Hx Depression, Hx Substance Abuse - ETOH Denies: Hx Eating Disorder, Hx Panic Disorder, Hx Post Traumatic Stress Disorder, Hx Community Mental Health Tx, Hx Schizophrenia, Hx Bipolar Disorder, Hx Suicide Attempt, Hx of Violent Episodes Against Others - Cancer History Hx Chemotherapy: No Hx Radiation Therapy: No Hx Palliative Cancer Treatment: No - Surgical History Surgery Procedure, Year, and Place: HERNIA REPAIR 2012. APPENDECTOMY 2000. LEFT ARM AV FISTULA/CAD - REMOVED. CABG 1 vessel, mitral & tricuspid valve repair March 02, 2014 AT [facility] CONDITIONAL 5 UPTO 3T. POWER PORT. Mitral and tricuspid valve repair Hx Anesthesia Reactions: No - Immunization History Date of Tetanus Vaccine: unk Date of Influenza Vaccine: unk Infectious Disease History: No Infectious Disease History: Reports: Hx Hepatitis - Hep C, Hx of Known/ Suspected MRSA, History Other Infectious Disease - Hepatitis C Denies: Hx Clostridium Difficile, Hx Human Immunodeficiency Virus (HIV), Hx Shingles, Hx Tuberculosis, Hx Known/Suspected VRE, Hx Known/Suspected VRSA, Traveled Outside the [place] in Last 30 Days - Family History Known Family History: Positive: Cardiac Disease, Hypertension, Other - CVA - Social History Occupation: Unemployed Lives: With Family Alcohol Use: None Alcohol Amount: former EtOH abuse Hx Substance Use: Yes Substance Use Type: Reports: None Substance Use Comment - Amount & Last Used: for pain, no longer takes marijuana Hx Tobacco Use: Yes Smoking Status (MU): Former Smoker Type: Cigarettes Amount Used/How Often: 1/2 ppd Length of Time of Smoking/Using Tobacco: 10 years Have You Smoked in the Last Year: No Review of Systems Positive: Chest Pain - CP that does not radiation Negative: Shortness Of Breath Positive: Abdominal Pain Positive: hematuria - "blood in my penis" Positive: Edema - sore and swollen LLE, preexisting sore and swollen RLE All Other Systems Reviewed And Are Negative: Yes Physical Exam - Summary Physical Exam Summary: VITAL SIGNS: Reviewed. GENERAL: Patient is a well-developed and nourished MALE who is lying comfortable in the stretcher. Patient is not in any acute respiratory distress. HEAD AND FACE: No signs of trauma. No ecchymosis, hematomas or skull depressions. No sinus tenderness. EYES: PERRLA, EOMI x 2, No injected conjunctiva, no nystagmus. EARS: Hearing grossly intact. Ear canals and tympanic membranes are within normal limits. MOUTH: Oropharynx within normal limits. NECK: Supple, trachea is midline, no adenopathy, no JVD, no carotid bruit, no c- spine tenderness, neck with full ROM. CHEST: Symmetric, no tenderness at palpation LUNGS: Clear to auscultation bilaterally. No wheezing or crackles. CVS: Regular rate and rhythm, S1 and S2 present, no murmurs or gallops appreciated. ABDOMEN: Soft, non-tender. No signs of distention. No rebound no guarding, and no masses palpated. Bowel sounds are normal. EXTREMITIES: FROM in all major joints, +1 to 2 edema bilaterally, no cyanosis or clubbing. NEURO: Alert and oriented x 3. No acute neurological deficits. Speech is normal and follows commands. SKIN: Dry and warm. GENITOURINARY EXAM: Normal. Triage Information Reviewed: Yes Vital Signs On Initial Exam: Initial Vitals Temp Pulse Resp BP Pulse Ox 98.7 F 82 22 104/73 97 07/15/18 19:03 07/15/18 19:03 07/15/18 19:03 07/15/18 19:03 07/15/18 19:03 Vital Signs Reviewed: Yes Diagnostics - Vital Signs Vital Signs Temp Pulse Resp BP Pulse Ox 07/15/18 19:03 98.7 F 82 22 104/73 97 - Laboratory Lab Statement: Any lab studies that have been ordered have been reviewed, and results considered in the medical decision making process. - Radiology Chest X-Ray Radiology Interpretation Completed By: ED Physician - Read 22:20. Right lower lobe infiltrate, which improved comparing to pervious X-Ray on 06/30/2018. Pending official report. - EKG 20:10 Cardiac Rate: NL - 82 EKG Rhythm: Sinus Rhythm EKG Interpretation: Normal axis. LVH with strain. EKG Comparison: No Significant Change - From 06/30/2018 Chest Pain Course/Dx - Course Assessment/Plan: This patient is a 67 year old M presenting to [facility] with a chief complaint of diffuse left sided chest pain since 17:00 today. He is well known to the ED Physician, as he has had multiple visits to the ED for pain complaints. The patient rates the pain 3/10 in severity. Patient reports abdominal pain, blood in my penis, sore and swollen LLE, and preexisting sore and swollen RLE. Patient denies radiating CP and difficulty breathing. Patient had dialysis yesterday and is scheduled for dialysis tomorrow. He requested for his legs to be wrapped. Chest X-Ray was ready by ED Physician at 22:20, and it showed: Right lower lobe infiltrate, which improved comparing to pervious X-Ray on 06/30/2018. EKG was normal except for LVH with strain. It was consistent with the EKG taken on 06/30/2018. Patient will be d/c home with a dx of atypical chest pain. - Diagnoses Provider Diagnoses: Atypical chest pain Discharge - Sign-Out/Discharge Documenting (check all that apply): Patient Departure - D/C - Discharge Plan Condition: Stable Disposition: HOME Patient Education Materials: Chest Pain (ED) Referrals: Marielena Vargas MD [Primary Care Provider] - 2 Days Additional Instructions: RETURN TO THE EMERGENCY DEPARTMENT FOR CHANGING OR WORSENING SYMPTOMS. FOLLOW UP WITH PCP IN 1-2 DAYS. - Attestation Statements Document Initiated by Scribe: Yes Documenting Scribe: Uriel Weems Provider For Whom Scribe is Documenting (Include Credential): Maria Guadalupe Ponce MD Scribe Attestation: Uriel Briones, scribed for Maria Guadalupe Ponce MD on 07/15/18 at 2321.
[2018-07-15] MEDS ORDERED: Al Hydrox/Mg Hydrox/Simet LIQ* 30 ML UDC PO ONE (21:14)
[2018-07-15] MEDS ORDERED: Lidocaine 2% VISCOUS* 15 ML UDC PO ONE (21:15)
[2018-07-15] MEDS ORDERED: ALPRAZolam TAB* 0.5 MG PO ONE (21:15)
[2018-07-15] MEDS ORDERED: Lidocaine 2% VISCOUS* 15 ML UDC ONE (21:16)
[2018-07-15] MEDS ORDERED: Al Hydrox/Mg Hydrox/Simet LIQ* 30 ML UDC ONE (21:16)
[2018-07-15 23:01] VITALS: BP 193/148
--- NOTE | 2018-07-16 08:21 | RAD ---
INDICATION: Chest pain. COMPARISON: Comparison is made with a prior study from June 30, 2018. TECHNIQUE: A portable view of the chest was obtained. FINDINGS: The patient is status post sternotomy and cardiac valve surgery. The heart is mildly enlarged and unchanged from the prior exam. There is a transvenous pacemaker present. There is a central venous catheter entering on the left side. The catheter tip projects over the right atrium. There is diffuse prominence of the interstitial markings and small bilateral pleural effusions most consistent with congestive heart failure. This appears slightly less prominent than on the prior study. IMPRESSION: FINDINGS MOST CONSISTENT WITH CONGESTIVE HEART FAILURE. R2
== END 2018-07-15 23:07 | disposition home or self-care (01) ==
LOC: ED 18:40
DX: R07.89 Other chest pain (principal); R10.9 Unspecified abdominal pain; R60.9 Edema, unspecified; Z87.891 Personal history of nicotine dependence
CPT/HCPCS: 71045; 93005; 99283; A9270-GY

== ENCOUNTER 2018-07-16 08:53 | Emergency (ER) | payer MEDICARE, MEDICAID ==
[2018-07-16] MEDS ORDERED: Nitroglycerin TAB 0.4 MG* 0.4 MG TAB SL PRN (09:00)
[2018-07-16] MEDS ORDERED: diPHENhydraMINE IV* 50 MG/ML 1 ml VIAL (BENADRYL) IV ONE (09:04)
[2018-07-16] MEDS ORDERED: Metoclopramide IV* 5 MG/ML 2 ML VIAL IV ONE (09:04)
[2018-07-16] MEDS ORDERED: Nitroglycerin TAB 0.4 MG* 0.4 MG TAB ONE (09:06)
--- NOTE | 2018-07-16 09:07 | ED ---
HPI Chest Pain - HPI Summary HPI Summary: Patient is a 67 y/o male NICK who presents to the ED c/o CP for 1 hour. He has ESRD and is here multiple times a week after his dialysis treatments. Patient got through 2 and a half hours of dialysis this morning, of the full 3 and a half hours. 1 L of fluid was able to be removed via dialysis. He began to develop retrosternal chest pain and a migraine during the treatment, both rated as a 9/10 in severity. The CP is sharp and non-radiating. He denies any SOB, N/V , or diaphoresis. As per EMS, his BP was 200/120. Patient has a hx of migraines which present in a similar fashion. He also c/o mild pain in his LUE due to a blood clot. Patient denies talking to Dr. Mccracken about his pain management plan , and states that he did not go to the pain clinic yet. He refuses Tylenol but accepts NTG. - History of Current Complaint Hx Obtained From: Patient, EMS Onset/Duration: Started Hours Ago - 1, Still Present Timing: Constant Current Severity: Severe Pain Intensity: 9 Pain Scale Used: 0-10 Numeric Chest Pain Location: Discrete at: - retrosternal Chest Pain Radiates: No Character: Sharp/Stabbing Aggravating Factor(s): Other: - Dialysis Alleviating Factor(s): Nothing Associated Signs and Symptoms: Positive: Chest Pain, Headaches. Negative: Shortness of Breath, Diaphoresis, Nausea, Vomiting Related History: Similar Episode/Dx as: - Here multiple times a week for pain related to dialysis - Additional Pertinent History Primary Care Physician: YARIEL - Allergy/Home Medications Allergies/Adverse Reactions: Allergies Allergy/AdvReac Type Severity Reaction Status Date / Time aspirin Allergy "Ever Verified 06/28/18 10:10 since i was a boy i was told not to take aspirin" hydromorphone AdvReac Pt states Verified 06/28/18 10:10 "he feels like a junky" PMH/Surg Hx/FS Hx/Imm Hx Endocrine/Hematology History: Reports: Hx Blood Transfusions, Hx Sickle Cell Disease - Was told had sickle cell at one point but denies, Hx Anemia Denies: Hx Anticoagulant Therapy, Hx Bone Marrow Disease, Hx Diabetes, Hx Thyroid Disease, Hx Unexplained Bleeding Cardiovascular History: Reports: Hx Angina, Hx Auto Implanted Cardiovert Defib, Hx Congestive Heart Failure, Hx Coronary Artery Disease, Hx Deep Vein Thrombosis , Hx Hypertension, Hx Pacemaker/ICD, Hx Peripheral Vascular Disease, Hx Syncope , Other Cardiovascular Problems/Disorders - cardiomegaly, mitral valve and tricuspid valve repair Denies: Hx Aneurysm, Hx Cardiomegaly, Hx Hypercholesterolemia, Hx Myocardial Infarction, Hx Rheumatic Fever, Hx Valvular Heart Disease Respiratory History: Reports: Hx Asthma - 3L Home O2, Hx Chronic Obstructive Pulmonary Disease (COPD), Hx Pleural Effusion, Hx Pneumonia, Other Respiratory Problems/Disorders Denies: Hx Pulmonary Edema, Hx Pulmonary Embolism, Hx Sleep Apnea GI History: Reports: Hx Cirrhosis, Hx Gastroesophageal Reflux Disease, Hx Ulcer - peptic ulcer, Other GI Disorders - hep C Denies: Hx Crohn's Disease, Hx Hiatal Hernia, Hx Irritable Bowel, Hx Jaundice History: Reports: Hx Acute Renal Failure, Hx Chronic Renal Failure, Hx Dialysis, Hx Renal Disease, Other Problems/Disorders - end stage renal disease, on dialysis Denies: Hx Kidney Infection, Hx Kidney Stones Musculoskeletal History: Reports: Hx Arthritis, Hx Back Problems - chronic pain , Hx Orthopedic Injury Denies: Hx Rheumatoid Arthritis, Hx Bursitis, Hx Fibromyalgia, Hx Gout, Hx Osteoporosis, Hx Scoliosis, Hx Tendonitis, Other Musculoskeletal History Sensory History: Reports: Hx Contacts or Glasses - glasses are at home, Hx Glaucoma, Hx Vision Problem Denies: Hx Cataracts, Hx Eye Injury, Hx Eye Prosthesis, Hx Legally Blind, Hx Macular Degeneration, Hx Deafness, Hx Hearing Aid, Hx Hearing Problem, Other Sensory Impairments Opthamlomology History: Reports: Hx Contacts or Glasses - glasses are at home, Hx Glaucoma, Hx Vision Problem Denies: Hx Cataracts, Hx Eye Injury, Hx Eye Prosthesis, Hx Legally Blind, Hx Macular Degeneration, Other Sensory Impairments Neurological History: Reports: Hx Headaches, Hx Migraine, Other Neuro Impairments/Disorders - depression Denies: Hx Dementia, Hx Developmental Delay, Hx Seizures, Hx Spinal Cord Injury, Hx Transient Ischemic Attacks (TIA) Psychiatric History: Reports: Hx Anxiety, Hx Depression, Hx Substance Abuse - ETOH Denies: Hx Eating Disorder, Hx Panic Disorder, Hx Post Traumatic Stress Disorder, Hx Community Mental Health Tx, Hx Schizophrenia, Hx Bipolar Disorder, Hx Suicide Attempt, Hx of Violent Episodes Against Others - Cancer History Hx Chemotherapy: No Hx Radiation Therapy: No Hx Palliative Cancer Treatment: No - Surgical History Surgery Procedure, Year, and Place: HERNIA REPAIR 2012. APPENDECTOMY 2000. LEFT ARM AV FISTULA/CAD - REMOVED. CABG 1 vessel, mitral & tricuspid valve repair March 02, 2014 AT [facility] CONDITIONAL 5 UPTO 3T. POWER PORT. Mitral and tricuspid valve repair Hx Anesthesia Reactions: No - Immunization History Date of Tetanus Vaccine: unk Date of Influenza Vaccine: unk Infectious Disease History: Reports: Hx Hepatitis - Hep C, Hx of Known/ Suspected MRSA, History Other Infectious Disease - Hepatitis C Denies: Hx Clostridium Difficile, Hx Human Immunodeficiency Virus (HIV), Hx Shingles, Hx Tuberculosis, Hx Known/Suspected VRE, Hx Known/Suspected VRSA - Family History Known Family History: Positive: Cardiac Disease, Hypertension, Other - CVA - Social History Alcohol Use: None Alcohol Amount: former EtOH abuse Hx Substance Use: Yes Substance Use Type: Reports: None Substance Use Comment - Amount & Last Used: for pain, no longer takes marijuana Hx Tobacco Use: Yes Smoking Status (MU): Former Smoker Type: Cigarettes Amount Used/How Often: 1/2 ppd Length of Time of Smoking/Using Tobacco: 10 years Have You Smoked in the Last Year: No Review of Systems Negative: Skin Diaphoresis Positive: Chest Pain Negative: Shortness Of Breath Negative: Vomiting, Nausea Positive: Myalgia - LUE pain due to blood clot Positive: Headache - Migraine All Other Systems Reviewed And Are Negative: Yes Physical Exam - Summary Physical Exam Summary: VITAL SIGNS: Reviewed. GENERAL: Patient is a well-developed and nourished MALE who is lying comfortable in the stretcher. Patient is not in any acute respiratory distress. HEAD AND FACE: No signs of trauma. No ecchymosis, hematomas or skull depressions. No sinus tenderness. EYES: PERRLA, EOMI x 2, No injected conjunctiva, no nystagmus. EARS: Hearing grossly intact. Ear canals and tympanic membranes are within normal limits. MOUTH: Oropharynx within normal limits. NECK: Supple, trachea is midline, no adenopathy, no JVD, no carotid bruit, no c- spine tenderness, neck with full ROM. CHEST: Symmetric, dialysis catheter on left side of chest, reproducible chest pain. LUNGS: Clear to auscultation bilaterally. No wheezing or crackles. CVS: Regular rate and rhythm, S1 and S2 present, no murmurs or gallops appreciated. ABDOMEN: Soft, non-tender. No signs of distention. No rebound no guarding, and no masses palpated. Bowel sounds are normal. EXTREMITIES: FROM in all major joints, no edema, no cyanosis or clubbing. Both UE have good pulses and capillary refill. NEURO: Alert and oriented x 3. No acute neurological deficits. Speech is normal and follows commands. SKIN: Dry and warm Triage Information Reviewed: Yes Vital Signs On Initial Exam: Initial Vitals Temp Pulse Resp BP Pulse Ox 98.6 F 78 18 204/136 100 07/16/18 09:01 07/16/18 09:01 07/16/18 09:01 07/16/18 09:01 07/16/18 09:01 Vital Signs Reviewed: Yes Diagnostics - Vital Signs Vital Signs Temp Pulse Resp BP Pulse Ox 07/16/18 09:01 98.6 F 78 18 204/136 100 - Laboratory Result Diagrams: 07/16/18 09:24 07/16/18 09:24 Lab Statement: Any lab studies that have been ordered have been reviewed, and results considered in the medical decision making process. - Radiology CXR Xray Interpretation: No Acute Changes - FINDINGS MOST CONSISTENT WITH CONGESTIVE HEART FAILURE, UNCHANGED. ED physician reviewed radiology report. Radiology Interpretation Completed By: Radiologist - EKG 9:23 Cardiac Rate: NL - 85 bpm EKG Rhythm: Sinus Rhythm EKG Interpretation: No ST elevation EKG Comparison: No Significant Change - Similar to previous EKGs done in the ER Chest Pain Course/Dx - Course Assessment/Plan: This patient is a 67-year-old male who is very well-known to the emergency department with past medical history significant for pancreatitis , end-stage renal disease on hemodialysis Thursday, Fridays, shortness of breath is, coronary artery disease, peptic ulcer disease, hepatitis C, V. tach, hypertension, ESRD, chronic pain, hypokalemia, anemia, migraine headaches , cardiomyopathy, syncope, opioid abuse and mitral but regurgitation. He comes today he can after hemodialysis for approximately 2 and half hours developed dizziness sharp retrosternal pain. He also developed a headache which is typical for his migraine headaches. He denies any shortness of breath, diaphoresis, palpitations or feeling that he is going to pass out. The headache is throbbing like pain, in the frontal area without any radiation. Denies any neck pain, denies any photophobia. Blood work at his baseline. The patient was found to be very hypertensive. The patient has a hypertensive urgency. The patient was given labetalol, clonidine and at this point were waiting to see if the patient improves the blood pressure. He also was given Benadryl and Reglan for migraine headache. After these medications the symptoms of the migraine headache has resolved. He also reports no chest pain. Therefore he requests to be discharged. However I expect to the patient that the patient blood pressure still very high therefore I want to admitted for control of the blood pressure. The patient refused admission. I extensively discussed with the patient the benefits and risk of leaving AMA. I also discussed the alternatives to leaving AMA, however, the patient still insist to leave the hospital AMA. The patient is clinically sober, free from distracting injury, appears to have intact insight and judgment and reason and in my opinion has the capacity to make decisions. Patient has full capacity and is cognitively intact. The patient presents with Chest pain and headache, I have explained that I am concerned with chest pain and headache and may represent and VT, CVA, PE, unstable angina. The patient verbalizes the understanding of my concerns. I have also explained the results of the labs and even though they are at his baseline. The primary nurse and the charge nurse also strongly recommended that the patient should not leave AMA. Patient understands the risk of leaving AMA, which includes but is not restricted to . Patient signed the AMA form. Patient was also advised to return to ED if he changes his mind or if the symptoms worsen or other symptoms appear. Patient understands and agrees. Again, I discussed all the findings and test results with the patient. Patient was instructed to return to the emergency room immediately if any of the symptoms return or worsens. Plan of care was discussed with the patient and understands and agrees. All questions were answered at patient satisfaction. There were no further complaints or concerns. Patient signed AMA and he was discharged AMA. - Chest Pain Differential Diagnosis/HQI/PQRI: Acute VT, ACS, Angina, CHF, Chest Wall, GI Disease, Lower Respiratory Infection - Diagnoses Provider Diagnoses: Chest pain, Hypertensive emergency, Headache, migraine - Critical Care Time Critical Care Time: 75-104 min Discharge - Sign-Out/Discharge Documenting (check all that apply): Patient Departure - AMA - Discharge Plan Condition: Stable Disposition: AGAINST MEDICAL ADVICE Referrals: Marielena Vargas MD [Primary Care Provider] - - Billing Disposition and Condition Condition: STABLE Disposition: Against Medical Advice - Attestation Statements Document Initiated by Scribe: Yes Documenting Scribe: Sharla Joyce Provider For Whom Scribe is Documenting (Include Credential): Oskar Reyes MD Scribe Attestation: Sharla Briones, scribed for Oskar Reyes MD on 07/17/18 at 0738. Scribe Documentation Reviewed: Yes Provider Attestation: The documentation as recorded by the Sharla casey accurately reflects the service I personally performed and the decisions made by me, Oskar Reyes MD
--- NOTE | 2018-07-16 09:43 | RAD ---
INDICATION: Chest pain. COMPARISON: Comparison is made with a prior study from July 15, 2018. TECHNIQUE: A portable view of the chest was obtained. FINDINGS: The patient is status post sternotomy and cardiac valve surgery. The heart is mildly enlarged and unchanged. There is a central venous catheter present. The catheter tip projects over the right atrium. There is diffuse prominence of the interstitial markings and small bilateral pleural effusions which appears similar to the prior study. IMPRESSION: FINDINGS MOST CONSISTENT WITH CONGESTIVE HEART FAILURE, UNCHANGED.
[2018-07-16 10:06] LABS: ABS Basophils 0.1 10^3/ul (0-0.2); ABS Eosinophils 0.1 10^3/ul (0-0.6); ABS Lymphocytes 0.6 10^3/ul (1.0-4.8); ABS Monocytes 0.6 10^3/ul (0-0.8); ABS Neutrophils 2.4 10^3/ul (1.5-7.7); ABS Nucleated RBC 0 10^3/ul; Eosinophil % 2.2 % (0-6); Hematocrit 33 % (42-52); Hemoglobin 10.6 g/dl (14.0-18.0); Lymphocyte % 16.6 % (25-47); Mean Corpuscular HGB Conc 32 g/dl (31-36); Mean Corpuscular Hemoglobin 29 pg (27-31); Mean Corpuscular Volume 90 fL (80-94); Mean Platelet Volume 8.6 um3 (7.4-10.4); Nucleated Red Blood Cells % 0.1; Platelet Count 119 10^3/ul (150-450); Red Blood Count 3.65 10^6/ul (4.00-5.40); Red Cell Distribution Width 19 % (10.5-15); White Blood Count 3.8 10^3/ul (3.5-10.8)
[2018-07-16] MEDS ORDERED: Labetalol IV* 5 MG/ML 20 ML VIAL IV PUSH ONE (10:10)
[2018-07-16] MEDS ORDERED: Labetalol IV* 5 MG/ML 20 ML VIAL ONE (10:13)
[2018-07-16 10:20] LABS: EGFR Non-African American 12.7 (>60)
[2018-07-16 10:21] LABS: INR 1.85 (0.77-1.02)
[2018-07-16] MEDS ORDERED: cloNIDine TAB* 0.1 MG PO ONE ×2 (11:12→12:15)
[2018-07-16 22:44] VITALS: BP 185/132
== END 2018-07-16 12:45 | disposition left against medical advice (07) ==
LOC: ED 08:53
DX: R07.9 Chest pain, unspecified (principal); I16.1 Hypertensive emergency; G43.909 Migraine, unspecified, not intractable, without status migrainosus; Z53.21 Procedure and treatment not carried out due to patient leaving prior to being seen by health care provider; I12.0 Hypertensive chronic kidney disease with stage 5 chronic kidney disease or end stage renal disease; N18.6 End stage renal disease; J45.909 Unspecified asthma, uncomplicated; Z87.891 Personal history of nicotine dependence; Z99.2 Dependence on renal dialysis
CPT/HCPCS: 36415; 71045; 80053; 82550; 82553; 83605; 83735; 84443; 84484; 85025; 85610; 85730; 86850; 86900; 86901; 93005; 96374; 96375; 99283; A9270-GY; J1200; J2765

== ENCOUNTER 2018-07-23 20:50 | Emergency (ER) | payer MEDICARE, MEDICAID ==
[2018-07-23 22:21] LABS: ABS Basophils 0 10^3/ul (0-0.2); ABS Eosinophils 0.1 10^3/ul (0-0.6); ABS Lymphocytes 1.1 10^3/ul (1.0-4.8); ABS Neutrophils 2.8 10^3/ul (1.5-7.7); ABS Nucleated RBC 0 10^3/ul; Eosinophil % 2.3 % (0-6); Hematocrit 32 % (42-52); Hemoglobin 10.7 g/dl (14.0-18.0); Lymphocyte % 21.6 % (25-47); Mean Corpuscular HGB Conc 33 g/dl (31-36); Mean Corpuscular Hemoglobin 30 pg (27-31); Mean Corpuscular Volume 90 fL (80-94); Mean Platelet Volume 8.5 um3 (7.4-10.4); Nucleated Red Blood Cells % 0.2; Platelet Count 118 10^3/ul (150-450); Red Blood Count 3.59 10^6/ul (4.00-5.40); Red Cell Distribution Width 19 % (10.5-15)
[2018-07-23 22:26] LABS: EGFR Non-African American 12.2 (>60)
[2018-07-24] MEDS ORDERED: Albuterol/Ipratropium NEB.SOL* Albuterol 2.5 MG/Ipratropium 0.5 MG 3 ML INH ONE (00:26)
--- NOTE | 2018-07-24 00:31 | ED ---
Shortness of Breath - HPI Summary HPI Summary: The patient is a 67 y/o M presenting to [facility] with a chief complaint of SOB starting today. He has been trying to use inhalers and O2 but they don't seem to be working well. He additionally c/o edema and pain in the bilateral ankles, which he usually treats with oxycodone, but he is out of medication. - History of Current Complaint Chief Complaint: EDShortnessOfBreath Time Seen by Provider: 07/24/18 00:22 Hx Obtained From: Patient Onset/Duration: Sudden Onset, Lasting Hours, Still Present Timing: Constant Current Severity: Moderate Dyspnea At: Rest Aggrevating Factors: Nothing Alleviating Factors: Other - oxygen and inhalers to little relief Associated Signs & Symptoms: Edema - bilateral ankles - Allergy/Home Medications Allergies/Adverse Reactions: Allergies Allergy/AdvReac Type Severity Reaction Status Date / Time aspirin Allergy "Ever Verified 07/23/18 21:02 since i was a boy i was told not to take aspirin" hydromorphone AdvReac Pt states Verified 07/23/18 21:02 "he feels like a junky" PMH/Surg Hx/FS Hx/Imm Hx Endocrine/Hematology History: Reports: Hx Blood Transfusions, Hx Sickle Cell Disease - Was told had sickle cell at one point but denies, Hx Anemia Denies: Hx Anticoagulant Therapy, Hx Bone Marrow Disease, Hx Diabetes, Hx Thyroid Disease, Hx Unexplained Bleeding Cardiovascular History: Reports: Hx Angina, Hx Auto Implanted Cardiovert Defib, Hx Congestive Heart Failure, Hx Coronary Artery Disease, Hx Deep Vein Thrombosis , Hx Hypertension, Hx Pacemaker/ICD, Hx Peripheral Vascular Disease, Hx Syncope , Other Cardiovascular Problems/Disorders - cardiomegaly, mitral valve and tricuspid valve repair Denies: Hx Aneurysm, Hx Cardiomegaly, Hx Hypercholesterolemia, Hx Myocardial Infarction, Hx Rheumatic Fever, Hx Valvular Heart Disease Respiratory History: Reports: Hx Asthma - 3L Home O2, Hx Chronic Obstructive Pulmonary Disease (COPD), Hx Pleural Effusion, Hx Pneumonia, Other Respiratory Problems/Disorders Denies: Hx Pulmonary Edema, Hx Pulmonary Embolism, Hx Sleep Apnea GI History: Reports: Hx Cirrhosis, Hx Gastroesophageal Reflux Disease, Hx Ulcer - peptic ulcer, Other GI Disorders - hep C Denies: Hx Crohn's Disease, Hx Hiatal Hernia, Hx Irritable Bowel, Hx Jaundice History: Reports: Hx Acute Renal Failure, Hx Chronic Renal Failure, Hx Dialysis, Hx Renal Disease, Other Problems/Disorders - end stage renal disease, on dialysis Denies: Hx Kidney Infection, Hx Kidney Stones Musculoskeletal History: Reports: Hx Arthritis, Hx Back Problems - chronic pain , Hx Orthopedic Injury Denies: Hx Rheumatoid Arthritis, Hx Bursitis, Hx Fibromyalgia, Hx Gout, Hx Osteoporosis, Hx Scoliosis, Hx Tendonitis, Other Musculoskeletal History Sensory History: Reports: Hx Contacts or Glasses - glasses are at home, Hx Glaucoma, Hx Vision Problem Denies: Hx Cataracts, Hx Eye Injury, Hx Eye Prosthesis, Hx Legally Blind, Hx Macular Degeneration, Hx Deafness, Hx Hearing Aid, Hx Hearing Problem, Other Sensory Impairments Opthamlomology History: Reports: Hx Contacts or Glasses - glasses are at home, Hx Glaucoma, Hx Vision Problem Denies: Hx Cataracts, Hx Eye Injury, Hx Eye Prosthesis, Hx Legally Blind, Hx Macular Degeneration, Other Sensory Impairments Neurological History: Reports: Hx Headaches, Hx Migraine, Other Neuro Impairments/Disorders - depression Denies: Hx Dementia, Hx Developmental Delay, Hx Seizures, Hx Spinal Cord Injury, Hx Transient Ischemic Attacks (TIA) Psychiatric History: Reports: Hx Anxiety, Hx Depression, Hx Substance Abuse - ETOH Denies: Hx Eating Disorder, Hx Panic Disorder, Hx Post Traumatic Stress Disorder, Hx Community Mental Health Tx, Hx Schizophrenia, Hx Bipolar Disorder, Hx Suicide Attempt, Hx of Violent Episodes Against Others - Cancer History Hx Chemotherapy: No Hx Radiation Therapy: No Hx Palliative Cancer Treatment: No - Surgical History Surgery Procedure, Year, and Place: HERNIA REPAIR 2012. APPENDECTOMY 2000. LEFT ARM AV FISTULA/CAD - REMOVED. CABG 1 vessel, mitral & tricuspid valve repair March 02, 2014 AT [facility] CONDITIONAL 5 UPTO 3T. POWER PORT. Mitral and tricuspid valve repair Hx Anesthesia Reactions: No - Immunization History Date of Tetanus Vaccine: unk Date of Influenza Vaccine: unk Infectious Disease History: No Infectious Disease History: Reports: Hx Hepatitis - Hep C, Hx of Known/ Suspected MRSA, History Other Infectious Disease - Hepatitis C Denies: Hx Clostridium Difficile, Hx Human Immunodeficiency Virus (HIV), Hx Shingles, Hx Tuberculosis, Hx Known/Suspected VRE, Hx Known/Suspected VRSA, Traveled Outside the [place] in Last 30 Days - Family History Known Family History: Positive: Cardiac Disease, Hypertension, Other - CVA - Social History Alcohol Use: None Alcohol Amount: former EtOH abuse Hx Substance Use: Yes Substance Use Type: Reports: None Substance Use Comment - Amount & Last Used: for pain, no longer takes marijuana Hx Tobacco Use: Yes Smoking Status (MU): Former Smoker Type: Cigarettes Amount Used/How Often: 1/2 ppd Length of Time of Smoking/Using Tobacco: 10 years Have You Smoked in the Last Year: No Review of Systems Positive: Shortness Of Breath Positive: Edema - bilateral ankles All Other Systems Reviewed And Are Negative: Yes Physical Exam - Summary Physical Exam Summary: Appearance: Well-appearing, Well-nourished, lying in bed comfortably Skin: Warm, dry, no obvious rash Eyes: sclera anicteric, no conjunctival pallor ENT: mucous membranes moist, pharynx appears normal Neck: Supple, nontender Respiratory: Clear to auscultation, no signs of respiratory distress Cardiovascular: Normal S1, S2. No murmurs. Normal distal pulses in tibial and radial bilaterally. Abdomen: Soft, nontender, normal active bowel sounds present Musculoskeletal: Normal, Strength/ROM Intact Neurological: A&Ox3, awake and alert, mentation is normal, speech is fluent and appropriate Psychiatric: affect is normal, does not appear anxious or depressed Triage Information Reviewed: Yes Vital Signs On Initial Exam: Initial Vitals Temp Pulse Resp BP Pulse Ox 98.6 F 77 16 186/126 96 07/23/18 20:58 07/23/18 20:58 07/23/18 20:58 07/23/18 20:58 07/23/18 20:58 Vital Signs Reviewed: Yes Diagnostics - Vital Signs Vital Signs Temp Pulse Resp BP Pulse Ox 07/23/18 23:24 98.0 F 78 16 175/120 100 07/23/18 20:58 98.6 F 77 16 186/126 96 - Laboratory Lab Results: Lab Results 07/23/18 07/23/18 07/23/18 Range/Units 22:02 22:02 22:02 WBC 5.0 (3.5-10.8) 10^3/ul RBC 3.59 L (4.00-5.40) 10^6/ul Hgb 10.7 L (14.0-18.0) g/dl Hct 32 L (42-52) % MCV 90 (80-94) fL MCH 30 (27-31) pg MCHC 33 (31-36) g/dl RDW 19 H (10.5-15) % Plt Count 118 L (150-450) 10^3/ul MPV 8.5 (7.4-10.4) um3 Neut % (Auto) 55.2 (38-83) % Lymph % (Auto) 21.6 L (25-47) % [place] % (Auto) 20.0 H (0-7) % Eos % (Auto) 2.3 (0-6) % Baso % (Auto) 0.9 (0-2) % Absolute Neuts (auto) 2.8 (1.5-7.7) 10^3/ul Absolute Lymphs (auto) 1.1 (1.0-4.8) 10^3/ul Absolute Monos (auto) 1.0 H (0-0.8) 10^3/ul Absolute Eos (auto) 0.1 (0-0.6) 10^3/ul Absolute Basos (auto) 0 (0-0.2) 10^3/ul Absolute Nucleated RBC 0 10^3/ul Nucleated RBC % 0.2 Sodium 136 (135-145) mmol/L Potassium 4.1 (3.5-5.0) mmol/L Chloride 92 L (101-111) mmol/L Carbon Dioxide 36 H (22-32) mmol/L Anion Gap 8 (2-11) mmol/L BUN 20 (6-24) mg/dL Creatinine 4.83 H (0.67-1.17) mg/dL Est GFR ( Amer) 14.7 (>60) Est GFR (Non-Af Amer) 12.2 (>60) BUN/Creatinine Ratio 4.1 L (8-20) Glucose 100 (70-100) mg/dL Lactic Acid 0.7 (0.5-2.0) mmol/L Calcium 9.9 (8.6-10.3) mg/dL Total Bilirubin 0.80 (0.2-1.0) mg/dL AST 48 H (13-39) U/L ALT 31 (7-52) U/L Alkaline Phosphatase 97 (34-104) U/L Troponin I 0.07 H* (<0.04) ng/mL Total Protein 8.5 (6.4-8.9) g/dL Albumin 4.5 (3.2-5.2) g/dL Globulin 4.0 (2-4) g/dL Albumin/Globulin Ratio 1.1 (1-3) Result Diagrams: 07/23/18 22:02 07/23/18 22:02 Lab Statement: Any lab studies that have been ordered have been reviewed, and results considered in the medical decision making process. - Radiology CXR Xray Interpretation: No Acute Changes - No evidence of acute disease. ED physician has reviewed this report. Radiology Interpretation Completed By: Radiologist - EKG 21:44 Cardiac Rate: NL EKG Rhythm: Sinus Rhythm - 75 BPM EKG Interpretation: No acute changes. No STEMI. Course/Dx - Diagnoses Provider Diagnoses: Chronic pain, Dyspnea Discharge - Sign-Out/Discharge Documenting (check all that apply): Patient Departure - Patient will be discharged home. - Discharge Plan Condition: Good Disposition: HOME Patient Education Materials: Chronic Pain (ED), Dyspnea (ED) Referrals: Marielena Vargas MD [Primary Care Provider] - - Billing Disposition and Condition Condition: GOOD Disposition: Home - Attestation Statements Document Initiated by Scribe: Yes Documenting Scribe: Alberta Chen Provider For Whom Irvin is Documenting (Include Credential): Dr. Zain Ramirez MD Scribe Attestation: Alberta Briones scribed for Dr. Zain Ramirez MD on 07/24/18 at 0308. Scribe Documentation Reviewed: Yes Provider Attestation: The documentation as recorded by the Alberta casey accurately reflects the service I personally performed and the decisions made by me, Dr. Zain Ramirez MD
[2018-07-24 01:16] VITALS: BP 168/118
--- NOTE | 2018-07-24 08:30 | RAD ---
INDICATION: Shortness of breath. Headache. History of COPD. Oxygen dependent. Cardiac disease. COMPARISON: July 16, 2018 TECHNIQUE: Dual energy PA and routine lateral views of the chest were obtained. REPORT: Elevated lung volumes and both diffuse mild prominence of the interstitial markings and patchy rarefaction of the mid to upper lung zone interstitial markings. Small pleural effusions without gross change. RIGHT perihilar alveolar consolidation concerning for pneumonia. Linear opacities at the LEFT lung base are most suspicious for atelectasis. Median sternotomy wires. Cardiomegaly. RIGHT ventricular level pacemaker lead. Tip of tunneled LEFT chest wall dual lumen central venous catheter at level of the RIGHT atrium. Mild prominence and ill-definition of the central pulmonary vasculature. IMPRESSION: #. Concern for RIGHT perihilar inflammatory infiltrate superimposed on advanced chronic obstructive pulmonary disease. #. Probable mild interstitial pulmonary edema with associated small pleural effusions. R1
== END 2018-07-24 00:45 | disposition home or self-care (01) ==
LOC: ED 20:50
DX: R06.09 Other forms of dyspnea (principal); M25.572 Pain in left ankle and joints of left foot; M25.571 Pain in right ankle and joints of right foot; G89.29 Other chronic pain; Z88.8 Allergy status to other drugs, medicaments and biological substances; I13.0 Hypertensive heart and chronic kidney disease with heart failure and stage 1 through stage 4 chronic kidney disease, or unspecified chronic kidney disease; N18.9 Chronic kidney disease, unspecified; I50.9 Heart failure, unspecified; I20.9 Angina pectoris, unspecified; Z95.810 Presence of automatic (implantable) cardiac defibrillator; Z86.718 Personal history of other venous thrombosis and embolism; J44.9 Chronic obstructive pulmonary disease, unspecified; F32.9 Major depressive disorder, single episode, unspecified; F41.9 Anxiety disorder, unspecified; Z87.891 Personal history of nicotine dependence; Z79.899 Other long term (current) drug therapy
CPT/HCPCS: 36415; 71046; 80053; 83605; 84484; 85025; 93005; 99282; A9270-GY

== ENCOUNTER 2018-07-25 17:14 | Emergency (ER) | payer MEDICARE, MEDICAID ==
[2018-07-25] MEDS ORDERED: Albuterol/Ipratropium NEB.SOL* Albuterol 2.5 MG/Ipratropium 0.5 MG 3 ML INH ONE (17:28)
--- NOTE | 2018-07-25 17:38 | ED ---
Shortness of Breath - HPI Summary HPI Summary: Patient is a 67 y/o M w/ c/o chills, SOB and chest pain onsetting an hour ago. He denies fever and diaphoresis. Patient reports BLE edema and pain. Pain is rated 8-9/10 in the room, chest pain is left-sided with no radiation. Patient is on dialysis M/W/F. He has an appointment for pain management tomorrow as well. He requests breathing treatment and an IM shot of morphine for his pain in the room. Home medications and allergies are reviewed. Nothing is noted to aggravate/alleviate Sx. - History of Current Complaint Chief Complaint: EDShortnessOfBreath Hx Obtained From: Patient Onset/Duration: Lasting Hours - an hour ago, Still Present Timing: Constant Current Severity: Severe - 8-9/10 Aggrevating Factors: Nothing Alleviating Factors: Nothing Associated Signs & Symptoms: Calf Pain/Swelling - BLE, Edema - BLE - Allergy/Home Medications Allergies/Adverse Reactions: Allergies Allergy/AdvReac Type Severity Reaction Status Date / Time aspirin Allergy "Ever Verified 07/23/18 21:02 since i was a boy i was told not to take aspirin" hydromorphone AdvReac Pt states Verified 07/23/18 21:02 "he feels like a junky" PMH/Surg Hx/FS Hx/Imm Hx Endocrine/Hematology History: Reports: Hx Blood Transfusions, Hx Sickle Cell Disease - Was told had sickle cell at one point but denies, Hx Anemia Denies: Hx Anticoagulant Therapy, Hx Bone Marrow Disease, Hx Diabetes, Hx Thyroid Disease, Hx Unexplained Bleeding Cardiovascular History: Reports: Hx Angina, Hx Auto Implanted Cardiovert Defib, Hx Congestive Heart Failure, Hx Coronary Artery Disease, Hx Deep Vein Thrombosis , Hx Hypertension, Hx Pacemaker/ICD, Hx Peripheral Vascular Disease, Hx Syncope , Other Cardiovascular Problems/Disorders - cardiomegaly, mitral valve and tricuspid valve repair Denies: Hx Aneurysm, Hx Cardiomegaly, Hx Hypercholesterolemia, Hx Myocardial Infarction, Hx Rheumatic Fever, Hx Valvular Heart Disease Respiratory History: Reports: Hx Asthma - 3L Home O2, Hx Chronic Obstructive Pulmonary Disease (COPD), Hx Pleural Effusion, Hx Pneumonia, Other Respiratory Problems/Disorders Denies: Hx Pulmonary Edema, Hx Pulmonary Embolism, Hx Sleep Apnea GI History: Reports: Hx Cirrhosis, Hx Gastroesophageal Reflux Disease, Hx Ulcer - peptic ulcer, Other GI Disorders - hep C Denies: Hx Crohn's Disease, Hx Hiatal Hernia, Hx Irritable Bowel, Hx Jaundice History: Reports: Hx Acute Renal Failure, Hx Chronic Renal Failure, Hx Dialysis, Hx Renal Disease, Other Problems/Disorders - end stage renal disease, on dialysis Denies: Hx Kidney Infection, Hx Kidney Stones Musculoskeletal History: Reports: Hx Arthritis, Hx Back Problems - chronic pain , Hx Orthopedic Injury Denies: Hx Rheumatoid Arthritis, Hx Bursitis, Hx Fibromyalgia, Hx Gout, Hx Osteoporosis, Hx Scoliosis, Hx Tendonitis, Other Musculoskeletal History Sensory History: Reports: Hx Contacts or Glasses - glasses are at home, Hx Glaucoma, Hx Vision Problem Denies: Hx Cataracts, Hx Eye Injury, Hx Eye Prosthesis, Hx Legally Blind, Hx Macular Degeneration, Hx Deafness, Hx Hearing Aid, Hx Hearing Problem, Other Sensory Impairments Opthamlomology History: Reports: Hx Contacts or Glasses - glasses are at home, Hx Glaucoma, Hx Vision Problem Denies: Hx Cataracts, Hx Eye Injury, Hx Eye Prosthesis, Hx Legally Blind, Hx Macular Degeneration, Other Sensory Impairments Neurological History: Reports: Hx Headaches, Hx Migraine, Other Neuro Impairments/Disorders - depression Denies: Hx Dementia, Hx Developmental Delay, Hx Seizures, Hx Spinal Cord Injury, Hx Transient Ischemic Attacks (TIA) Psychiatric History: Reports: Hx Anxiety, Hx Depression, Hx Substance Abuse - ETOH Denies: Hx Eating Disorder, Hx Panic Disorder, Hx Post Traumatic Stress Disorder, Hx Community Mental Health Tx, Hx Schizophrenia, Hx Bipolar Disorder, Hx Suicide Attempt, Hx of Violent Episodes Against Others - Cancer History Hx Chemotherapy: No Hx Radiation Therapy: No Hx Palliative Cancer Treatment: No - Surgical History Surgery Procedure, Year, and Place: HERNIA REPAIR 2012. APPENDECTOMY 2000. LEFT ARM AV FISTULA/CAD - REMOVED. CABG 1 vessel, mitral & tricuspid valve repair March 02, 2014 AT [facility] CONDITIONAL 5 UPTO 3T. POWER PORT. Mitral and tricuspid valve repair Hx Anesthesia Reactions: No - Immunization History Date of Tetanus Vaccine: unk Date of Influenza Vaccine: unk Infectious Disease History: No Infectious Disease History: Reports: Hx Hepatitis - Hep C, Hx of Known/ Suspected MRSA, History Other Infectious Disease - Hepatitis C Denies: Hx Clostridium Difficile, Hx Human Immunodeficiency Virus (HIV), Hx Shingles, Hx Tuberculosis, Hx Known/Suspected VRE, Hx Known/Suspected VRSA, Traveled Outside the [place] in Last 30 Days - Family History Known Family History: Positive: Cardiac Disease, Hypertension, Other - CVA - Social History Alcohol Use: None Alcohol Amount: former EtOH abuse Hx Substance Use: Yes Substance Use Type: Reports: None Substance Use Comment - Amount & Last Used: for pain, no longer takes marijuana Hx Tobacco Use: Yes Smoking Status (MU): Former Smoker Type: Cigarettes Amount Used/How Often: 1/2 ppd Length of Time of Smoking/Using Tobacco: 10 years Have You Smoked in the Last Year: No Review of Systems Positive: Chills. Negative: Fever, Skin Diaphoresis Positive: Chest Pain Positive: Shortness Of Breath Positive: Edema - BLE , Other - BLE pain All Other Systems Reviewed And Are Negative: Yes Physical Exam - Summary Physical Exam Summary: Appearance: Well appearing, no pain distress; dialysis cath in left chest, old fistula in both arms. Skin: warm, dry, reflects adequate perfusion Head/face: normal Eyes: EOMI, KINGS ENT: mucous membranes moist Neck: supple, non-tender Respiratory: diminished breath sounds at bases, no crackles and no wheezes Cardiovascular: RRR, pulses symmetrical Abdomen: non-tender, soft Bowel Sounds: present Musculoskeletal: strength/ROM intact, chronic BLE edema Neuro: normal, sensory motor intact, A&Ox3 Triage Information Reviewed: Yes Vital Signs On Initial Exam: Initial Vitals Temp Pulse Resp BP Pulse Ox 97.5 F 86 20 0/0 96 07/25/18 17:17 07/25/18 17:17 07/25/18 17:17 07/25/18 17:17 07/25/18 17:17 Vital Signs Reviewed: Yes Diagnostics - Vital Signs Vital Signs Temp Pulse Resp BP Pulse Ox 07/25/18 17:17 97.5 F 86 20 0/0 96 - Laboratory Lab Statement: Any lab studies that have been ordered have been reviewed, and results considered in the medical decision making process. Course/Dx - Course Course Of Treatment: Patient is very well-known to me in the ER. He presents today stating that he needs something for pain and a breathing treatment. He is due for dialysis in the morning. He does have chronically uncontrolled hypertension that is only remedied by his dialysis. The patient is perimortem and we have discussed palliative care versus hospice in the past. - Diagnoses Provider Diagnoses: Chronic hypertension, Fluid overload, ESRD on dialysis Discharge - Sign-Out/Discharge Documenting (check all that apply): Patient Departure - discharge - Discharge Plan Condition: Improved Disposition: HOME Patient Education Materials: Hemodialysis (DC) Referrals: Marielena Vargas MD [Primary Care Provider] - Additional Instructions: Go to dialysis first thing in the morning. Do not miss dialysis. Go to pain management appointment tomorrow. Return if worse, new symptoms or other concerns. - Billing Disposition and Condition Condition: IMPROVED Disposition: Home - Attestation Statements Document Initiated by Scribe: Yes Documenting Scribe: Danny Gentile Provider For Whom Irvin is Documenting (Include Credential): Keagan Copeland MD Scribe Attestation: I, Danny Gentile , scribed for Keagan Copeland MD on 07/25/18 at 1818. Scribe Documentation Reviewed: Yes Provider Attestation: The documentation as recorded by the Danny casey accurately reflects the service I personally performed and the decisions made by me, Keagan Copeland MD
[2018-07-25] MEDS ORDERED: Morphine INJ** 4 MG/ML 1 ML CARPUJECT IV ONE (17:45)
[2018-07-25] MEDS ORDERED: Morphine INJ* 4 MG/ML 1 ML SYRINGE (NEW SYRINGE VERSION) ONE (17:57)
[2018-07-25 20:28] VITALS: BP 0/0
== END 2018-07-25 20:24 | disposition home or self-care (01) ==
LOC: ED 17:14
DX: N18.6 End stage renal disease (principal); E87.70 Fluid overload, unspecified; Z99.2 Dependence on renal dialysis; I10 Essential (primary) hypertension; R06.02 Shortness of breath; R07.9 Chest pain, unspecified; Z87.891 Personal history of nicotine dependence; R60.0 Localized edema
CPT/HCPCS: 96374; 99283; A9270-GY; J2270

== ENCOUNTER 2018-07-26 08:22 | Emergency (ER) | payer MEDICARE, MEDICAID ==
[2018-07-26] MEDS ORDERED: Albuterol/Ipratropium NEB.SOL* Albuterol 2.5 MG/Ipratropium 0.5 MG 3 ML INH ONE (08:36)
[2018-07-26] MEDS ORDERED: traMADol TAB* 50 MG PO ONE (09:42)
--- NOTE | 2018-07-26 09:48 | ED ---
HPI Chest Pain - HPI Summary HPI Summary: Patient is a 67-year-old male who is well-known to the ED with a variety of complaints including chest pain, shortness of breath. He is requesting a breathing treatment on arrival. He was seen yesterday in 2 days prior to that. Labs obtained 5 days ago which was at his baseline. He is also endorses having swelling in the bilateral feet. He has recently came from dialysis and states he went to 2.5 hours of dialysis. He is requesting pain medicine as well. He would like the Percocet. - History of Current Complaint Chief Complaint: EDChestPainROMI Time Seen by Provider: 07/26/18 08:23 Hx Obtained From: Patient Onset/Duration: Started Minutes Ago Timing: Constant Initial Severity: Moderate Current Severity: Moderate Pain Intensity: 8 Pain Scale Used: 0-10 Numeric Chest Pain Location: Mid Sternal Chest Pain Radiates: No Chest Pain Radiates To:: Back Character: Dull/Aching Aggravating Factor(s): Nothing Alleviating Factor(s): Nothing Associated Signs and Symptoms: Positive: Chest Pain - Risk Factors AMI/ACS Risk Factors: Myocardial Infarction, Sedentary Lifestyle, Diabetes, Nitroglycerine Use, Hypertension, CHF, Cocaine - Additional Pertinent History Primary Care Physician: YARIEL - Allergy/Home Medications Allergies/Adverse Reactions: Allergies Allergy/AdvReac Type Severity Reaction Status Date / Time aspirin Allergy "Ever Verified 07/23/18 21:02 since i was a boy i was told not to take aspirin" hydromorphone AdvReac Pt states Verified 07/23/18 21:02 "he feels like a junky" PMH/Surg Hx/FS Hx/Imm Hx Previously Healthy: No Endocrine/Hematology History: Reports: Hx Blood Transfusions, Hx Sickle Cell Disease - Was told had sickle cell at one point but denies, Hx Anemia Denies: Hx Anticoagulant Therapy, Hx Bone Marrow Disease, Hx Diabetes, Hx Thyroid Disease, Hx Unexplained Bleeding Cardiovascular History: Reports: Hx Angina, Hx Auto Implanted Cardiovert Defib, Hx Congestive Heart Failure, Hx Coronary Artery Disease, Hx Deep Vein Thrombosis , Hx Hypertension, Hx Pacemaker/ICD, Hx Peripheral Vascular Disease, Hx Syncope , Other Cardiovascular Problems/Disorders - cardiomegaly, mitral valve and tricuspid valve repair Denies: Hx Aneurysm, Hx Cardiomegaly, Hx Hypercholesterolemia, Hx Myocardial Infarction, Hx Rheumatic Fever, Hx Valvular Heart Disease Respiratory History: Reports: Hx Asthma - 3L Home O2, Hx Chronic Obstructive Pulmonary Disease (COPD), Hx Pleural Effusion, Hx Pneumonia, Other Respiratory Problems/Disorders Denies: Hx Pulmonary Edema, Hx Pulmonary Embolism, Hx Sleep Apnea GI History: Reports: Hx Cirrhosis, Hx Gastroesophageal Reflux Disease, Hx Ulcer - peptic ulcer, Other GI Disorders - hep C Denies: Hx Crohn's Disease, Hx Hiatal Hernia, Hx Irritable Bowel, Hx Jaundice History: Reports: Hx Acute Renal Failure, Hx Chronic Renal Failure, Hx Dialysis, Hx Renal Disease, Other Problems/Disorders - end stage renal disease, on dialysis Denies: Hx Kidney Infection, Hx Kidney Stones Musculoskeletal History: Reports: Hx Arthritis, Hx Back Problems - chronic pain , Hx Orthopedic Injury Denies: Hx Rheumatoid Arthritis, Hx Bursitis, Hx Fibromyalgia, Hx Gout, Hx Osteoporosis, Hx Scoliosis, Hx Tendonitis, Other Musculoskeletal History Sensory History: Reports: Hx Contacts or Glasses - glasses are at home, Hx Glaucoma, Hx Vision Problem Denies: Hx Cataracts, Hx Eye Injury, Hx Eye Prosthesis, Hx Legally Blind, Hx Macular Degeneration, Hx Deafness, Hx Hearing Aid, Hx Hearing Problem, Other Sensory Impairments Opthamlomology History: Reports: Hx Contacts or Glasses - glasses are at home, Hx Glaucoma, Hx Vision Problem Denies: Hx Cataracts, Hx Eye Injury, Hx Eye Prosthesis, Hx Legally Blind, Hx Macular Degeneration, Other Sensory Impairments Neurological History: Reports: Hx Headaches, Hx Migraine, Other Neuro Impairments/Disorders - depression Denies: Hx Dementia, Hx Developmental Delay, Hx Seizures, Hx Spinal Cord Injury, Hx Transient Ischemic Attacks (TIA) Psychiatric History: Reports: Hx Anxiety, Hx Depression, Hx Substance Abuse - ETOH Denies: Hx Eating Disorder, Hx Panic Disorder, Hx Post Traumatic Stress Disorder, Hx Community Mental Health Tx, Hx Schizophrenia, Hx Bipolar Disorder, Hx Suicide Attempt, Hx of Violent Episodes Against Others - Cancer History Hx Chemotherapy: No Hx Radiation Therapy: No Hx Palliative Cancer Treatment: No - Surgical History Surgery Procedure, Year, and Place: HERNIA REPAIR 2012. APPENDECTOMY 2000. LEFT ARM AV FISTULA/CAD - REMOVED. CABG 1 vessel, mitral & tricuspid valve repair March 02, 2014 AT [facility] CONDITIONAL 5 UPTO 3T. POWER PORT. Mitral and tricuspid valve repair Hx Anesthesia Reactions: No - Immunization History Date of Tetanus Vaccine: unk Date of Influenza Vaccine: unk Hx Pertussis Vaccination: No Immunizations Up to Date: Yes Infectious Disease History: No Infectious Disease History: Reports: Hx Hepatitis - Hep C, Hx of Known/ Suspected MRSA, History Other Infectious Disease - Hepatitis C Denies: Hx Clostridium Difficile, Hx Human Immunodeficiency Virus (HIV), Hx Shingles, Hx Tuberculosis, Hx Known/Suspected VRE, Hx Known/Suspected VRSA, Traveled Outside the [place] in Last 30 Days - Family History Known Family History: Positive: Cardiac Disease, Hypertension, Other - CVA - Social History Occupation: Unemployed, Disabled Lives: Alone Alcohol Use: None Alcohol Amount: former EtOH abuse Hx Substance Use: Yes Substance Use Type: Reports: None Substance Use Comment - Amount & Last Used: for pain, no longer takes marijuana Hx Tobacco Use: Yes Smoking Status (MU): Former Smoker Type: Cigarettes Amount Used/How Often: 1/2 ppd Length of Time of Smoking/Using Tobacco: 10 years Have You Smoked in the Last Year: No Review of Systems Constitutional: Negative Negative: Fever, Chills, Fatigue, Skin Diaphoresis Positive: Chest Pain Positive: Shortness Of Breath. Negative: Cough Negative: Abdominal Pain, Vomiting, Diarrhea Genitourinary: Negative Positive: no symptoms reported, see HPI Positive: Myalgia, Other - bilateral lower ext swelling Negative: Rash, Bruising Negative: Headache, Weakness, Paresthesia, Numbness Psychological: Normal All Other Systems Reviewed And Are Negative: Yes Physical Exam Triage Information Reviewed: Yes Vital Signs On Initial Exam: Initial Vitals Pulse Resp Pulse Ox 74 12 98 07/26/18 08:26 07/26/18 08:26 07/26/18 08:26 Vital Signs Reviewed: Yes Appearance: Positive: Well-Appearing, Well-Nourished Skin: Positive: Warm, Skin Color Reflects Adequate Perfusion Head/Face: Positive: Normal Head/Face Inspection Eyes: Positive: Normal, KINGS, Conjunctiva Clear Neck: Positive: Supple Respiratory/Lung Sounds: Positive: Breath Sounds Present Cardiovascular: Positive: RRR Musculoskeletal: Positive: Strength/ROM Intact Neurological: Positive: Speech Normal Psychiatric: Positive: Normal, Affect/Mood Appropriate Diagnostics - Vital Signs Vital Signs Temp Pulse Resp BP Pulse Ox 07/26/18 09:01 70 20 100 07/26/18 09:00 70 17 177/129 100 07/26/18 08:58 69 16 99 07/26/18 08:30 74 19 99 07/26/18 08:27 98.2 F 74 18 178/122 98 07/26/18 08:26 74 12 98 - Laboratory Lab Statement: Any lab studies that have been ordered have been reviewed, and results considered in the medical decision making process. Chest Pain Course/Dx - Course Course Of Treatment: Vital signs are stable for this patient. He is well-known to the ED. He is given tramadol and a breathing treatment with good relief. He is requesting discharge at this time and will follow up with Dr. Ng on 07/29/18 for pain management. - Chest Pain Differential Diagnosis/HQI/PQRI: Acute PR, ACS, Angina, Chest Wall - Diagnoses Provider Diagnoses: Chest pain Discharge - Sign-Out/Discharge Documenting (check all that apply): Patient Departure - Discharge Plan Condition: Stable Disposition: HOME Referrals: Marielena Vargas MD [Primary Care Provider] - - Billing Disposition and Condition Condition: STABLE Disposition: Home
[2018-07-26 10:20] VITALS: BP 190/149
== END 2018-07-26 10:19 | disposition home or self-care (01) ==
LOC: ED 08:22
DX: R07.9 Chest pain, unspecified (principal); R06.02 Shortness of breath; Z87.891 Personal history of nicotine dependence; Z88.0 Allergy status to penicillin
CPT/HCPCS: 99282; A9270-GY

== ENCOUNTER → 2018-07-27 12:36 | Emergency (ER) | payer MEDICARE, MEDICAID ==
[~2018-07-27 12:36] MED LIST changes: -Albuterol 2.5 MG/3 ML NEB.SOL* (0.083%) INH ONE; +Albuterol/Ipratropium NEB.SOL* Albuterol 2.5 MG/Ipratropium 0.5 MG 3 ML ONE; -Calcium Gluconate INJ* 1 GM in NS 0.9% 100 ML* 100 ML IVPB ONE; +Carvedilol TAB* 25 MG PO ONE; -Dextrose 50% Syringe 50 ML* 25 GM/50 ML SYRINGE IV PUSH PRN; -Insulin REGULAR(*) 1 UNITS UNIT IV PUSH ONE; +Isosorbide Mononitrate ER TAB* 60 MG PO ONE; -Labetalol IV* 5 MG/ML 20 ML VIAL IV PUSH ONE; +Lisinopril TAB* 10 MG PO ONE; -Metoclopramide IV* 5 MG/ML 2 ML VIAL IV SLOW PU ONE; -Morphine INJ* 2 MG/ML 1 ML SYRINGE (TWO MG - NEW SYRINGE VERSION) IV ONE; +Morphine INJ* 4 MG/ML 1 ML SYRINGE (NEW SYRINGE VERSION) IV ONE; -NS 0.9% 100 ML* 100 ML ONE; +Ondansetron INJ* 2 MG/ML VIAL IV ONE; -Sodium Bicarbonate 8.4%* 50 ML SYRINGE IV ONE; +amLODIPine TAB* 5 MG PO ONE; -nitroGLYCERIN DRIP* 25,000 MCG/250 ML BTL IV ONE
--- NOTE | 2018-07-27 15:06 | ED ---
Shortness of Breath - HPI Summary HPI Summary: Patient is a 67 y/o M w/ c/o SOB and abdominal pain onsetting a few hours ago. He is a dialysis patient, had dialysis yesterday, due for dialysis tomorrow. On triage, denies nausea, vomiting and diarrhea, pain is rated 9/10, nothing is noted to aggravate/alleviate Sx. Patient notes that he normally takes oxycodone for pain or receives injections. He also reports the recent of two members of his family. In room, patient is 100 o2 sat, pulse 79, 215/165 BP. No home medications reported, however med reconciliation shows several medications , reviewed. Allergies/Adverse Reactions: Allergies Allergy/AdvReac Type Severity Reaction Status Date / Time aspirin Allergy "Ever Verified 07/27/18 12:50 since i was a boy i was told not to take aspirin" hydromorphone AdvReac Pt states Verified 07/27/18 12:50 "he feels like a junky" - History of Current Complaint Chief Complaint: EDAbdPain Time Seen by Provider: 07/27/18 13:24 Hx Obtained From: Patient Onset/Duration: Gradual Onset, Lasting Hours, Still Present Timing: Constant Current Severity: Severe - 9/10 Dyspnea At: Rest Aggrevating Factors: Nothing Alleviating Factors: Nothing Associated Signs & Symptoms: Negative Related History: Similar Episode - CHF - Allergy/Home Medications Allergies/Adverse Reactions: Allergies Allergy/AdvReac Type Severity Reaction Status Date / Time aspirin Allergy "Ever Verified 07/27/18 12:50 since i was a boy i was told not to take aspirin" hydromorphone AdvReac Pt states Verified 07/27/18 12:50 "he feels like a junky" PMH/Surg Hx/FS Hx/Imm Hx Previously Healthy: No Endocrine/Hematology History: Reports: Hx Blood Transfusions, Hx Sickle Cell Disease - Was told had sickle cell at one point but denies, Hx Anemia Denies: Hx Anticoagulant Therapy, Hx Bone Marrow Disease, Hx Diabetes, Hx Thyroid Disease, Hx Unexplained Bleeding Cardiovascular History: Reports: Hx Angina, Hx Auto Implanted Cardiovert Defib, Hx Congestive Heart Failure, Hx Coronary Artery Disease, Hx Deep Vein Thrombosis , Hx Hypertension, Hx Pacemaker/ICD, Hx Peripheral Vascular Disease, Hx Syncope , Other Cardiovascular Problems/Disorders - cardiomegaly, mitral valve and tricuspid valve repair Denies: Hx Aneurysm, Hx Cardiomegaly, Hx Hypercholesterolemia, Hx Myocardial Infarction, Hx Rheumatic Fever, Hx Valvular Heart Disease Respiratory History: Reports: Hx Asthma - 3L Home O2, Hx Chronic Obstructive Pulmonary Disease (COPD), Hx Pleural Effusion, Hx Pneumonia Denies: Hx Pulmonary Edema, Hx Pulmonary Embolism, Hx Sleep Apnea GI History: Reports: Hx Cirrhosis, Hx Gastroesophageal Reflux Disease, Hx Ulcer - peptic ulcer, Other GI Disorders - hep C Denies: Hx Crohn's Disease, Hx Hiatal Hernia, Hx Irritable Bowel, Hx Jaundice History: Reports: Hx Acute Renal Failure, Hx Chronic Renal Failure, Hx Dialysis, Hx Renal Disease Denies: Hx Kidney Infection, Hx Kidney Stones Musculoskeletal History: Reports: Hx Arthritis, Hx Back Problems - chronic pain , Hx Orthopedic Injury Denies: Hx Rheumatoid Arthritis, Hx Bursitis, Hx Fibromyalgia, Hx Gout, Hx Osteoporosis, Hx Scoliosis, Hx Tendonitis, Other Musculoskeletal History Sensory History: Reports: Hx Contacts or Glasses - glasses are at home, Hx Glaucoma, Hx Vision Problem Denies: Hx Cataracts, Hx Eye Injury, Hx Eye Prosthesis, Hx Legally Blind, Hx Macular Degeneration, Hx Deafness, Hx Hearing Aid, Hx Hearing Problem, Other Sensory Impairments Opthamlomology History: Reports: Hx Contacts or Glasses - glasses are at home, Hx Glaucoma, Hx Vision Problem Denies: Hx Cataracts, Hx Eye Injury, Hx Eye Prosthesis, Hx Legally Blind, Hx Macular Degeneration, Other Sensory Impairments Neurological History: Reports: Hx Headaches, Hx Migraine Denies: Hx Dementia, Hx Developmental Delay, Hx Seizures, Hx Spinal Cord Injury, Hx Transient Ischemic Attacks (TIA) Psychiatric History: Reports: Hx Anxiety, Hx Depression, Hx Substance Abuse - ETOH Denies: Hx Eating Disorder, Hx Panic Disorder, Hx Post Traumatic Stress Disorder, Hx Community Mental Health Tx, Hx Schizophrenia, Hx Bipolar Disorder, Hx Suicide Attempt, Hx of Violent Episodes Against Others - Cancer History Hx Chemotherapy: No Hx Radiation Therapy: No Hx Palliative Cancer Treatment: No - Surgical History Surgery Procedure, Year, and Place: HERNIA REPAIR 2012. APPENDECTOMY 2000. LEFT ARM AV FISTULA/CAD - REMOVED. CABG 1 vessel, mitral & tricuspid valve repair March 02, 2014 AT [facility] CONDITIONAL 5 UPTO 3T. POWER PORT. Mitral and tricuspid valve repair Hx Anesthesia Reactions: No - Immunization History Date of Tetanus Vaccine: unk Date of Influenza Vaccine: unk Infectious Disease History: Yes Infectious Disease History: Reports: Hx Hepatitis - Hep C, Hx of Known/ Suspected MRSA Denies: Hx Clostridium Difficile, Hx Human Immunodeficiency Virus (HIV), Hx Shingles, Hx Tuberculosis, Hx Known/Suspected VRE, Hx Known/Suspected VRSA, Traveled Outside the [place] in Last 30 Days - Family History Known Family History: Positive: Cardiac Disease, Hypertension, Other - CVA - Social History Occupation: Disabled Alcohol Use: None Alcohol Amount: former EtOH abuse Hx Substance Use: Yes - denies current, only prescribed Substance Use Type: Reports: Prescribed Substance Use Comment - Amount & Last Used: for pain, no longer takes marijuana Hx Tobacco Use: Yes Smoking Status (MU): Former Smoker Type: Cigarettes Amount Used/How Often: 1/2 ppd Length of Time of Smoking/Using Tobacco: 10 years Have You Smoked in the Last Year: No Review of Systems Constitutional: Negative Cardiovascular: Negative Positive: Shortness Of Breath Positive: Abdominal Pain, Diarrhea, Nausea Musculoskeletal: Negative Skin: Negative Neurological: Negative Positive: Anxious All Other Systems Reviewed And Are Negative: Yes Physical Exam - Summary Physical Exam Summary: Appearance: Well-appearing, no pain distress and no respiratory distress when observed from outside room. Upon entry to room, converts to rapid respirations and states severe pain; well-nourished Skin: Warm, color reflects adequate perfusion, dry, fistula right arm with good thrill and bruit Head: Normal Head/Face inspection, atraumatic Eyes: Conjunctiva clear ENT: Normal inspection Neck: Supple, no nodes, no JVD Respiratory: rales bibasalar, rapid shallow resps Cardio: RRR, 2/6 systolic murmur over the base, pulses normal, brisk capillary refill; dialysis catheter in place, left anterior chest Abdomen: Soft; complains of pain LUQ on palpation, no masses appreciated, non- distended, no guarding, no rebound Bowel sounds: Present Musculoskeletal: Strength Intact/ROM intact, no calf tenderness, no edema. Psychological: anxious Neuro: Alert, muscle tone normal, no focal deficit Triage Information Reviewed: Yes Vital Signs On Initial Exam: Initial Vitals Temp Pulse Resp BP Pulse Ox 97.8 F 82 20 184/122 90 07/27/18 12:40 07/27/18 12:40 07/27/18 12:40 07/27/18 12:40 07/27/18 12:40 Vital Signs Reviewed: Yes Diagnostics - Vital Signs Vital Signs Temp Pulse Resp BP Pulse Ox 07/27/18 12:40 97.8 F 82 20 184/122 90 - Laboratory Result Diagrams: 07/27/18 15:08 07/27/18 15:08 Lab Statement: Any lab studies that have been ordered have been reviewed, and results considered in the medical decision making process. - Radiology CXR Xray Interpretation: Positive (See Comments) Radiology Interpretation Completed By: Radiologist - #. Pulmonary vascular congestion with interstitial edema and small dependent pleural effusions. #. Persistent asymmetric RIGHT perihilar alveolar opacity which may represent asymmetric pulmonary edema or inflammatory infiltrate. THIS REPORT WAS REVIEWED BY CAMRYN MACK. - EKG 1451 Cardiac Rate: NL - rate of 79 bpm EKG Rhythm: Sinus Rhythm ST Segment: Non-Specific Ectopy: None EKG Comparison: Other - EKG today, 07/27/18 at 1451: nl AV, prolonged IVCT nonspecific (118), nl QTc, left axis (-20), LVH; compared with 08/02/18 EKG: inverted T wave, now normal in V5, V6. Re-Evaluation - Re-Evaluation First Eval Re-Evaluation Time: 16:09 Change: Improved Comment: BP is 204/152, o2 96, patient speaks full sentences and notes that he is hungry Second Eval Re-Evaluation Time: 16:28 Change: Improved Comment: Patient is agreeable with discharge, will take his BP meds. Course/Dx - Course Assessment/Plan: Patient is a 67 y/o M w/ c/o SOB and abdominal pain onsetting a few hours ago. He is a dialysis patient, had dialysis yesterday, due for dialysis tomorrow. On triage, no N,V, D, pain is rated 9/10, nothing is noted to aggravate/alleviate Sx. Patient notes that he normally takes oxycodone for pain or receives injections. He also reports the recent of two members of his family. In room, patient is 100 o2 sat, pulse 79, 215/165 BP. No home medications reported. On physical exam, it is noted that patient had no pain distress and no respiratory distress upon entry to room, converts to rapid respirations and states severe pain. 2/6 systolic murmur over base is noted. Dialysis catheter in place in left anterior chest. Abdomen was soft; complains of pain LUQ on palpation, no masses appreciated, non-distended, no guarding, no rebound. During ED course, patient was given Zofran 4 mg IV ED, morphine 4 mg IV ED, Lisinopril 10 mg PO ED, Isosorbide Mononitrate 60 mg PO, Carvedilol 25 mg PO, Norvasc 10 mg PO ONCE, albuterol nebulizer. Labs showed trop .05, CRP < 100, procalcitonin .8, Hgb 12.1, 37 Hct, creatinine 52, BUN 7.94, AST 41. CXR showed pulmonary vascular congestion with interstitial edema and small dependent pleural. effusions. #. Persistent asymmetric RIGHT perihilar alveolar opacity which may represent asymmetric. pulmonary edema or inflammatory infiltrate. EKG showed sinus rhythm and rate of 79 bpm, non- specific ST, no ectopy. EKG today, 07/27/18 at 1451 also showed nl AV, prolonged IVCT nonspecific (118), nl QTc, left axis (-20), LVH; compared with EKG: inverted T wave, now normal in V5, V6. Dr. Dalal was consulted on patients case; he is agreeable with discharging patient to home and wants him to take his BP meds. He can keep his dialysis appointment tomorrow. Dx dyspnea, pulmonary edema, hypertensive crisis. - Diagnoses Differential Diagnosis/HQI/PQRI: Positive: Asthma, CHF, COPD Exacerbation, PA, Pulmonary Edema Provider Diagnoses: Pulmonary edema, Dyspnea, Hypertensive crisis - Physician Notifications Discussed Care of Patient With: Jose Eduardo Dalal Time Discussed With Above Provider: 16:16 Instructed by Provider To: Other - Patient's case was discussed with Dr. Dalal at 1616. He is agreeable with patient being discharged and wants him on BP meds. Discharge - Sign-Out/Discharge Documenting (check all that apply): Patient Departure - discharge - Discharge Plan Condition: Stable Disposition: HOME Patient Education Materials: Pulmonary Edema (ED) Referrals: Marielena Vargas MD [Primary Care Provider] - Jose Eduardo Dalal MD [Medical Doctor] - (for dialysis in the am ) Additional Instructions: You were given morphine 4mg IV and zofran 4mg while in the ER. The chest xray continued to show interstitial edema which you have had previously, and will be improved with dialysis. We have also given you your anti-hypertensive medications, lisionpril 10mg, isosorbide 60mg, coreg 25mg and amlodipine 10mg for your elevated blood pressure. You also had a breathing treatment of a duoneb while you were here. We consulted Dr. Dalal about you and he recommended this treatment and that you keep your appointment for dialysis in the am. Return to the ER if you have new or worsening symptoms. - Billing Disposition and Condition Condition: STABLE Disposition: Home - Attestation Statements Document Initiated by Irvin: Yes Documenting Scribe: Danny Gentile Provider For Whom Irvin is Documenting (Include Credential): Soumya Mccracken MD Scribe Attestation: Danny Briones , scribed for Soumya Mccracken MD on 07/28/18 at 0001. Scribe Documentation Reviewed: Yes Provider Attestation: The documentation as recorded by the Danny casey accurately reflects the service I personally performed and the decisions made by me, Soumya Mccracken MD
[2018-07-27 15:16] LABS: ABS Basophils 0.1 10^3/ul (0-0.2); ABS Eosinophils 0.1 10^3/ul (0-0.6); ABS Lymphocytes 0.8 10^3/ul (1.0-4.8); ABS Monocytes 0.6 10^3/ul (0-0.8); ABS Neutrophils 2.5 10^3/ul (1.5-7.7); ABS Nucleated RBC 0 10^3/ul; Eosinophil % 1.3 % (0-6); Hematocrit 37 % (42-52); Hemoglobin 12.1 g/dl (14.0-18.0); Mean Corpuscular HGB Conc 33 g/dl (31-36); Mean Corpuscular Hemoglobin 30 pg (27-31); Mean Corpuscular Volume 90 fL (80-94); Mean Platelet Volume 8.9 um3 (7.4-10.4); Nucleated Red Blood Cells % 0.1; Platelet Count 122 10^3/ul (150-450); Red Blood Count 4.06 10^6/ul (4.00-5.40); Red Cell Distribution Width 20 % (10.5-15)
[2018-07-27 15:34] LABS: EGFR Non-African American 6.9 (>60)
--- NOTE | 2018-07-27 16:00 | RAD ---
INDICATION: Shortness of breath. Congestive heart failure. On dialysis. History of tobacco use. COMPARISON: July 23, 2018 TECHNIQUE: Dual energy PA and routine lateral views of the chest were obtained. REPORT: Distal tip of tunneled dual-chamber LEFT side central venous catheter is at the level of the RIGHT atrium. Median sternotomy wires and mediastinal vascular clips. RIGHT ventricular level pacemaker lead. Cardiomegaly. Prominent ill-defined central pulmonary vasculature as well as diffuse prominence of the interstitial markings. Asymmetric RIGHT perihilar alveolar opacity without significant change. Unchanged bilateral dependent pleural effusions with proportional atelectasis. IMPRESSION: #. Pulmonary vascular congestion with interstitial edema and small dependent pleural effusions. #. Persistent asymmetric RIGHT perihilar alveolar opacity which may represent asymmetric pulmonary edema or inflammatory infiltrate.
[2018-07-27 17:15] VITALS: BP 203/81
== END | disposition home or self-care (01) ==
LOC: ED 12:36
DX: J81.1 Chronic pulmonary edema (principal); R06.00 Dyspnea, unspecified; I16.9 Hypertensive crisis, unspecified; R10.12 Left upper quadrant pain; R11.0 Nausea; I50.9 Heart failure, unspecified; J44.9 Chronic obstructive pulmonary disease, unspecified; N17.9 Acute kidney failure, unspecified; Z99.81 Dependence on supplemental oxygen; Z95.810 Presence of automatic (implantable) cardiac defibrillator; Z90.89 Acquired absence of other organs; Z88.6 Allergy status to analgesic agent; Z88.5 Allergy status to narcotic agent; Z82.49 Family history of ischemic heart disease and other diseases of the circulatory system; Z82.3 Family history of stroke; Z87.891 Personal history of nicotine dependence
CPT/HCPCS: 36415; 71046; 80053; 82550; 82553; 84145; 84484; 85025; 86140; 93005; 96374; 96375; 99283; A9270-GY; J2270; J2405

== ENCOUNTER 2018-07-28 09:28 | Inpatient (IN) | payer MEDICARE, MEDICAID ==
--- NOTE | 2018-07-28 09:43 | ED ---
HPI Cardiac - HPI Summary HPI Summary: ABC ALERT overhead at 09:26 - ETA 2 minutes This pt is a 67 y/o male presenting to [facility] via EMS for unresponsiveness with active CPR. EMS reports the pt was on the toilet when he was witnessed by his girlfriend to become unresponsive. Upon EMS arriving to scene pt did not have a pulse. EMS started CPR and began bagging. Pt had 1 line placed with 500 cc NS and 1 of epi was given. EMS notes pulses returned with heart rate in the 120s, good pulses, and good waveform capnography. On their way to the ED, EMS states pt lost pulses again and noticed waveform capnography dropped down, and restarted CPR and bagging. No Narcan was administered per EMS. EMS reports pt was seen in the ED during the past 3 days, last discharge from the ED was yesterday 07/27/18. Pt is not DNR according to EMS. - History of Current Complaint Stated Complaint: ABC ALERT Hx Obtained From: EMS Hx From Patient Unobtainable Due To: Extremis Onset/Duration: Started Minutes Ago, Still Present Timing: Lasting Minutes Current Severity: Severe Aggravating Factor(s): Other: - unknown Alleviating Factor(s): Other: - unknown Associated Signs and Symptoms: Positive: Other: - unresponsive - Additional Pertinent History Primary Care Physician: YARIEL - Allergy/Home Medications Allergies/Adverse Reactions: Allergies Allergy/AdvReac Type Severity Reaction Status Date / Time aspirin Allergy "Ever Verified 07/27/18 12:50 since i was a boy i was told not to take aspirin" hydromorphone AdvReac Pt states Verified 07/27/18 12:50 "he feels like a junky" PMH/Surg Hx/FS Hx/Imm Hx Endocrine/Hematology History: Reports: Hx Blood Transfusions, Hx Sickle Cell Disease - Was told had sickle cell at one point but denies, Hx Anemia Denies: Hx Anticoagulant Therapy, Hx Bone Marrow Disease, Hx Diabetes, Hx Thyroid Disease, Hx Unexplained Bleeding Cardiovascular History: Reports: Hx Angina, Hx Auto Implanted Cardiovert Defib, Hx Congestive Heart Failure, Hx Coronary Artery Disease, Hx Deep Vein Thrombosis , Hx Hypertension, Hx Pacemaker/ICD, Hx Peripheral Vascular Disease, Hx Syncope , Other Cardiovascular Problems/Disorders - cardiomegaly, mitral valve and tricuspid valve repair Denies: Hx Aneurysm, Hx Cardiomegaly, Hx Hypercholesterolemia, Hx Myocardial Infarction, Hx Rheumatic Fever, Hx Valvular Heart Disease Respiratory History: Reports: Hx Asthma - 3L Home O2, Hx Chronic Obstructive Pulmonary Disease (COPD), Hx Pleural Effusion, Hx Pneumonia, Other Respiratory Problems/Disorders Denies: Hx Pulmonary Edema, Hx Pulmonary Embolism, Hx Sleep Apnea GI History: Reports: Hx Cirrhosis, Hx Gastroesophageal Reflux Disease, Hx Ulcer - peptic ulcer, Other GI Disorders - hep C Denies: Hx Crohn's Disease, Hx Hiatal Hernia, Hx Irritable Bowel, Hx Jaundice History: Reports: Hx Acute Renal Failure, Hx Chronic Renal Failure, Hx Dialysis, Hx Renal Disease, Other Problems/Disorders - end stage renal disease, on dialysis Denies: Hx Kidney Infection, Hx Kidney Stones Musculoskeletal History: Reports: Hx Arthritis, Hx Back Problems - chronic pain , Hx Orthopedic Injury Denies: Hx Rheumatoid Arthritis, Hx Bursitis, Hx Fibromyalgia, Hx Gout, Hx Osteoporosis, Hx Scoliosis, Hx Tendonitis, Other Musculoskeletal History Sensory History: Reports: Hx Contacts or Glasses - glasses are at home, Hx Glaucoma, Hx Vision Problem Denies: Hx Cataracts, Hx Eye Injury, Hx Eye Prosthesis, Hx Legally Blind, Hx Macular Degeneration, Hx Deafness, Hx Hearing Aid, Hx Hearing Problem, Other Sensory Impairments Opthamlomology History: Reports: Hx Contacts or Glasses - glasses are at home, Hx Glaucoma, Hx Vision Problem Denies: Hx Cataracts, Hx Eye Injury, Hx Eye Prosthesis, Hx Legally Blind, Hx Macular Degeneration, Other Sensory Impairments Neurological History: Reports: Hx Headaches, Hx Migraine, Other Neuro Impairments/Disorders - depression Denies: Hx Dementia, Hx Developmental Delay, Hx Seizures, Hx Spinal Cord Injury, Hx Transient Ischemic Attacks (TIA) Psychiatric History: Reports: Hx Anxiety, Hx Depression, Hx Substance Abuse - ETOH Denies: Hx Eating Disorder, Hx Panic Disorder, Hx Post Traumatic Stress Disorder, Hx Community Mental Health Tx, Hx Schizophrenia, Hx Bipolar Disorder, Hx Suicide Attempt, Hx of Violent Episodes Against Others - Cancer History Hx Chemotherapy: No Hx Radiation Therapy: No Hx Palliative Cancer Treatment: No - Surgical History Surgery Procedure, Year, and Place: HERNIA REPAIR 2012. APPENDECTOMY 2000. LEFT ARM AV FISTULA/CAD - REMOVED. CABG 1 vessel, mitral & tricuspid valve repair March 02, 2014 AT [facility] CONDITIONAL 5 UPTO 3T. POWER PORT. Mitral and tricuspid valve repair Hx Anesthesia Reactions: No - Immunization History Date of Tetanus Vaccine: unk Date of Influenza Vaccine: unk Infectious Disease History: Reports: Hx Hepatitis - Hep C, Hx of Known/ Suspected MRSA, History Other Infectious Disease - Hepatitis C Denies: Hx Clostridium Difficile, Hx Human Immunodeficiency Virus (HIV), Hx Shingles, Hx Tuberculosis, Hx Known/Suspected VRE, Hx Known/Suspected VRSA - Family History Known Family History: Positive: Cardiac Disease, Hypertension, Other - CVA - Social History Alcohol Use: None Alcohol Amount: former EtOH abuse Hx Substance Use: Yes - denies current, only prescribed Substance Use Type: Reports: Prescribed Substance Use Comment - Amount & Last Used: for pain, no longer takes marijuana Hx Tobacco Use: Yes Smoking Status (MU): Former Smoker Type: Cigarettes Amount Used/How Often: 1/2 ppd Length of Time of Smoking/Using Tobacco: 10 years Have You Smoked in the Last Year: No Review of Systems - ROS Summary Review of Systems Summary: ROS IS LIMITED DUE TO LEVEL 5 CAVEAT - extremis Negative: Fever Neurological: Other - Unresponsive All Other Systems Reviewed And Are Negative: No Physical Exam - Summary Physical Exam Summary: VITAL SIGNS: Reviewed. GENERAL: Patient was in active CPR and BVM bagged by EMS. HEAD AND FACE: No signs of trauma. No ecchymosis, hematomas or skull depressions. EYES: Dilated pupils, nonreactive. EARS: Ear canals and tympanic membranes are within normal limits. MOUTH: Oropharynx within normal limits. NECK: Supple CHEST: Symmetric, dialysis port on chest LUNGS: breath sounds only with active bagging CVS: normal sinus rhythm with weak pulses ABDOMEN: Soft and decreased bowel sounds EXTREMITIES: No lower extremity edema noted NEURO: Unresponsive SKIN: Dry Triage Information Reviewed: Yes Vital Signs Reviewed: Yes Completion Of Physical Exam Limited Due To: Extremis Diagnostics - Laboratory Result Diagrams: 07/28/18 09:43 07/28/18 09:43 Lab Statement: Any lab studies that have been ordered have been reviewed, and results considered in the medical decision making process. - Radiology Chest XR Xray Interpretation: Positive (See Comments) - IMPRESSION: 1. Lines and tubes as above. 2. Cardiomegaly. 3. Small bilateral effusions with bibasilar atelectasis versus early consolidation. 4. Pulmonary vessel congestion. Dr. Reyes has reviewed this report. Radiology Interpretation Completed By: Radiologist - CT Brain CT CT Interpretation: Positive (See Comments) - IMPRESSION: 1. There has been interval development of an approximately 6 cm intraparenchymal hemorrhage centered within the right cerebellum with intraventricular distention of hemorrhage. 2. There is effacement of the basal cisterns and foramen magnum with subfalcine shift to the left posteriorly. 3. There is ventriculomegaly consistent with obstructive hydrocephalus. 4. Findings were discussed with Dr. Reyes in the emergency department at approximately 10:30 AM on July 28, 2018. CT Interpretation Completed By: Radiologist - EKG 09:42 Cardiac Rate: NL - at 86 bpm EKG Rhythm: Sinus Rhythm EKG Interpretation: No ST elevations. T wave inversion in leads I, V5, V6. LVH. EKG Comparison: No Significant Change - Similar to previous on 07/27/18. Re-Evaluation - Re-Evaluation First Eval Re-Evaluation Time: 09:55 Comment: Dr. White, flavor maker, in to see pt. Disposition - Course Assessment/Plan: Endotracheal Intubation Procedure Note. Procedure - Endotracheal Intubation. Permit was implied secondary to emergent situation. An LMA and bougie were placed within arm's reach. A Glidescope blade was inserted into the oropharynx at which time the vocal cords were visualized. A 7.5 Cameroonian endotracheal tube was inserted and visualized going through the vocal cords. The stylet was removed. Colorimetric change was visualized on the CO2 meter. Breath sounds were heard in both lung gruber equally. The endotracheal tube was placed at 24 cm, measured at the teeth. Portable chest x- ray ordered for confirmation of tube level. Post intubation sedation ordered. Intubation was made at the first attempt. No complications were encountered. Assessment and plan: On arrival to the emergency department the patient was being bagged and with active CPR by EMS. The patient was placed on the stretcher, IV access was obtained. Femoral pulses are faint. The patient was placed in a ekg monitor and it shows a sinus bradycardia. Continued with ACLS resuscitation the patient was given IV fluids and he was also given calcium chloride prophylactically since the patient is on hemodialysis. The patient continues to have pulses and I proceeded to intubate the patient. Please see the intubation procedure note. There were no complications. On re- examination the patient continues to have dilated pupils, nonreactive, he is in a sinus rhythm, and he is intubated. The patient is critical but more stable. Dr. White from ICU came and examined the patient and after his assessment he accepted the patient for the ICU. Blood work shows an slight chronic anemia, INR is 2.78, potassium is 5.6, anion gap is 13, BUN 60, creatinine is 9.01, glucose 180, phosphorus 5.7, magnesium is 2.8, troponin 0.06. Head CT IMPRESSION: 1. THERE HAS BEEN INTERVAL DEVELOPMENT OF AN APPROXIMATELY 6 CM INTRAPARENCHYMAL HEMORRHAGE CENTERED WITHIN THE RIGHT CEREBELLUM WITH INTRAVENTRICULAR DISTENTION OF. HEMORRHAGE. 2. THERE IS EFFACEMENT OF THE BASAL CISTERNS AND FORAMEN MAGNUM WITH SUBFALCINE SHIFT TO THE LEFT POSTERIORLY. 3. THERE IS VENTRICULOMEGALY CONSISTENT WITH OBSTRUCTIVE HYDROCEPHALUS. CXR impression: Positive cardiomegaly and congestion. Head CT results and chest x-ray results discussed with Dr. White. - Diagnoses Provider Diagnoses: Cardiorespiratory failure, Hemorrhagic cerebrovascular accident (CVA) During the Visit The Following Alert/Code Occurred: ABC Alert - overhead at 09: 26, ETA 2 minutes - Physician Notifications Discussed Care Of Patient With: Parveen White - flavor maker Time Discussed With Above Provider: 11:00 Instructed by Provider To: Other - I discussed the brain CT and chest XR results with Dr. White. - Critical Care Time Critical Care Time: 30-74 min Discharge - Sign-Out/Discharge Documenting (check all that apply): Patient Departure - [place] [facility] [place] imaging exams completed and their final reports reviewed: Yes - Discharge Plan Condition: Critical Disposition: ADMITTED TO [facility] - Billing Disposition and Condition Condition: CRITICAL Disposition: Admitted to [facility] - Attestation Statements Document Initiated by Karenibe: Yes Documenting Scribe: Lily Paniagua Provider For Whom Irvin is Documenting (Include Credential): Oskar Reyes MD Scribe Attestation: Lily Briones, scribed for Oskar Ryees MD on 07/29/18 at 0736. Scribe Documentation Reviewed: Yes Provider Attestation: The documentation as recorded by the Lily casey accurately reflects the service I personally performed and the decisions made by me, Oskar Reyes MD
[2018-07-28] MEDS ORDERED: Calcium CHLORIDE 10% SYRINGE* 1 GM/10 ML ONE (09:44)
[2018-07-28] MEDS ORDERED: NS 0.9% 1000 ML* 1,000 ML IV ONE (09:49)
[2018-07-28] MEDS ORDERED: Calcium Gluconate INJ* 1 GM in NS 0.9% 100 ML* 100 ML IVPB ONE (09:49)
[2018-07-28 09:56] LABS: ABS Basophils 0.1 10^3/ul (0-0.2); ABS Eosinophils 0 10^3/ul (0-0.6); ABS Lymphocytes 1.3 10^3/ul (1.0-4.8); ABS Monocytes 0.7 10^3/ul (0-0.8); ABS Neutrophils 5.9 10^3/ul (1.5-7.7); ABS Nucleated RBC 0 10^3/ul; Eosinophil % 0.1 % (0-6); Hematocrit 34 % (42-52); Hemoglobin 10.7 g/dl (14.0-18.0); Mean Corpuscular HGB Conc 32 g/dl (31-36); Mean Corpuscular Hemoglobin 30 pg (27-31); Mean Corpuscular Volume 94 fL (80-94); Mean Platelet Volume 8.9 um3 (7.4-10.4); Nucleated Red Blood Cells % 0.2; Platelet Count 144 10^3/ul (150-450); Red Cell Distribution Width 20 % (10.5-15); White Blood Count 7.9 10^3/ul (3.5-10.8)
[2018-07-28] MEDS ORDERED: LORazepam INJ* 2 MG/ML 1 ML VIAL IV PUSH PRN (09:56)
[2018-07-28 10:00] LABS: INR 2.78 (0.77-1.02)
[2018-07-28] MEDS ORDERED: fentaNYL PCA* 20 ML PCA SCH (10:00)
[2018-07-28 10:14] LABS: EGFR Non-African American 5.9 (>60)
--- NOTE | 2018-07-28 10:32 | RAD ---
HISTORY: Unresponsive COMPARISONS: November 26, 2017 TECHNIQUE: Multiple contiguous axial CT scans were obtained of the head without intravenous contrast. FINDINGS: HEMORRHAGE/INFARCT: There is high attenuation material consistent with intraparenchymal hemorrhage centered within the right cerebellum measuring 5.3 x 5.9 cm transversely, and extending 4 3.5 cm in cranial caudal dimension. There is intraventricular extension of hemorrhage. Elsewhere, there is no hemorrhage or acute infarct. MASSES/SHIFT: There is effacement of the basal cisterns and of the foramen magnum. There is subfalcine shift to the left posteriorly of approximately 1.1 cm. EXTRA-AXIAL SPACES: There are no extra-axial fluid collections. SULCI AND VENTRICLES: As noted above, there is intraventricular extension of hemorrhage. There is moderate ventriculomegaly. CEREBRUM: There are no focal parenchymal abnormalities. BRAINSTEM: There are no focal parenchymal abnormalities. CEREBELLUM: As noted above, there is a large intraparenchymal hematoma centered within the right cerebellum with intraventricular extension of hemorrhage, mass effect upon the fourth ventricle, and effacement of the basal cisterns and foramen magnum with subfalcine shift to the left posteriorly. VESSELS: The vessels are grossly normal. PARANASAL SINUSES: The paranasal sinuses are clear. ORBITS: The orbits are unremarkable. BONES AND SOFT TISSUE: No bone or soft tissue abnormalities are noted. OTHER: None IMPRESSION: 1. THERE HAS BEEN INTERVAL DEVELOPMENT OF AN APPROXIMATELY 6 CM INTRAPARENCHYMAL HEMORRHAGE CENTERED WITHIN THE RIGHT CEREBELLUM WITH INTRAVENTRICULAR DISTENTION OF HEMORRHAGE. 2. THERE IS EFFACEMENT OF THE BASAL CISTERNS AND FORAMEN MAGNUM WITH SUBFALCINE SHIFT TO THE LEFT POSTERIORLY. 3. THERE IS VENTRICULOMEGALY CONSISTENT WITH OBSTRUCTIVE HYDROCEPHALUS. 4. FINDINGS WERE DISCUSSED WITH DR. HOPPER IN THE EMERGENCY DEPARTMENT AT APPROXIMATELY 10:30 AM ON JULY 28, 2018
[2018-07-28] MEDS ORDERED: Phytonadione IV (Adult)* 10 MG/ML 1 ML AMP IV ONE (10:42)
--- NOTE | 2018-07-28 10:53 | HP ---
H&P (Free Text) History and Physical: [facility] History and Physical CC: cardiac arrest HPI: 67M with htn, hld, gerd, hcv, h/o dvt, afib on ac, chronic pancreatitis, cad s/p cabg, chf (EF 35%), esrd on hd presents after cardiac arrest. The patient was at home on the toilet when he became unresponsive. EMS was called who could not find a pulse. He was given cpr and had ROSC. He was brought to the ER where he was intubated. He went to the ct scan and he was found to have a catastrophic intracerebral hemorrhage with obstructive hydrocephalus. The patient was admitted to the ICU. ROS - unable 2/2 critical illness PMHx - htn, hld, gerd, hcv, h/o dvt, afib on ac, chronic pancreatitis, cad s/p cabg, chf (EF 35%), esrd on hd PSHx - perm cath, av fistula, mitral valve respain, tricuspic valve repair, appendectomy All - aspirin, dilaudid SocHx - no drugs, no etoh, no tobacco FamHx - unable PE Vital Signs: Temp Pulse Resp BP Pulse Ox 92.7 F 57 16 90/47 100 07/28/18 11:00 07/28/18 11:00 07/28/18 10:47 07/28/18 11:00 07/28/18 11:00 Gen - intubated, unresponsive heent - ncat, pupils fixed and dilated neck - no jvd, +perm cath cv - s1/s2, +murmur lungs - +ronchi abd - soft, nt ext - +edema neuro - unresponsive, pupils fixed and dilated, no corneal reflex, no gag Labs Laboratory Results - last 24 hr 07/28/18 07/28/18 07/28/18 09:43 09:43 09:43 WBC 7.9 RBC 3.60 L Hgb 10.7 L Hct 34 L MCV 94 MCH 30 MCHC 32 RDW 20 H Plt Count 144 L MPV 8.9 Neut % (Auto) 74.9 Lymph % (Auto) 16.0 L [place] % (Auto) 8.2 H Eos % (Auto) 0.1 Baso % (Auto) 0.8 Absolute Neuts (auto) 5.9 Absolute Lymphs (auto) 1.3 Absolute Monos (auto) 0.7 Absolute Eos (auto) 0 Absolute Basos (auto) 0.1 Absolute Nucleated RBC 0 Nucleated RBC % 0.2 INR (Anticoag Therapy) 2.78 H ABG pH ABG pCO2 ABG pO2 ABG HCO3 ABG O2 Saturation ABG Base Excess Sodium 136 Potassium 5.6 H Chloride 95 L Carbon Dioxide 28 Anion Gap 13 H BUN 60 H Creatinine 9.01 H Est GFR ( Amer) 7.2 Est GFR (Non-Af Amer) 5.9 BUN/Creatinine Ratio 6.7 L Glucose 180 H Lactic Acid Calcium 9.1 Phosphorus 5.7 H Magnesium 2.8 H Total Bilirubin 1.00 AST 34 ALT 23 Alkaline Phosphatase 74 Ammonia Total Creatine Kinase 102 Troponin I 0.06 H* Total Protein 7.7 Albumin 4.2 Globulin 3.5 Albumin/Globulin Ratio 1.2 TSH 9.92 H Acetaminophen < 15 Serum Alcohol < 10 07/28/18 07/28/18 07/28/18 09:43 09:43 09:50 WBC RBC Hgb Hct MCV MCH MCHC RDW Plt Count MPV Neut % (Auto) Lymph % (Auto) [place] % (Auto) Eos % (Auto) Baso % (Auto) Absolute Neuts (auto) Absolute Lymphs (auto) Absolute Monos (auto) Absolute Eos (auto) Absolute Basos (auto) Absolute Nucleated RBC Nucleated RBC % INR (Anticoag Therapy) ABG pH 7.11 L* ABG pCO2 83 H* ABG pO2 272 H ABG HCO3 21.6 ABG O2 Saturation 100.3 H ABG Base Excess -4.3 L Sodium Potassium Chloride Carbon Dioxide Anion Gap BUN Creatinine Est GFR ( Amer) Est GFR (Non-Af Amer) BUN/Creatinine Ratio Glucose Lactic Acid 5.1 H* Calcium Phosphorus Magnesium Total Bilirubin AST ALT Alkaline Phosphatase Ammonia TNP Total Creatine Kinase Troponin I Total Protein Albumin Globulin Albumin/Globulin Ratio TSH Acetaminophen Serum Alcohol Imaging CXR 07/[address] Head 07/28 IMPRESSION: 1. THERE HAS BEEN INTERVAL DEVELOPMENT OF AN APPROXIMATELY 6 CM INTRAPARENCHYMAL HEMORRHAGE CENTERED WITHIN THE RIGHT CEREBELLUM WITH INTRAVENTRICULAR DISTENTION OF HEMORRHAGE. 2. THERE IS EFFACEMENT OF THE BASAL CISTERNS AND FORAMEN MAGNUM WITH SUBFALCINE SHIFT TO THE LEFT POSTERIORLY. 3. THERE IS VENTRICULOMEGALY CONSISTENT WITH OBSTRUCTIVE HYDROCEPHALUS. 4. FINDINGS WERE DISCUSSED WITH DR. HOPPER IN THE EMERGENCY DEPARTMENT AT APPROXIMATELY 10:30 AM ON JULY 28, 2018 Impression 67M with htn, hld, gerd, hcv, h/o dvt, afib on ac, chronic pancreatitis, cad s/ p cabg, chf (EF 35%), esrd on hd presents after cardiac arrest and found to have catastrophic intracerebral hemorrhage with obstructive hydrocephalus Plan Neuro - catastrophic intracerebral hemorrhage with obstructive hydrocephalus - reverse inr - neurochecks - neurosurgery consult - keep Na+ > 145 - likely fatal bleed - exam consistent with brain but unable to assess at this time due to hypothermia CV - hypotension, cardiac arret - levophed for bp support - check tte - not a candidate for hypothermia given ICH - hold ac Pulm - acute respiratory failure - 2/2 inability to protect airway - wean vent as tolerated GI - npo Renal - esrd on HD - given severity of ICH no further HD warranted Heme - monitor CBC Endo - check fs, niss Lines - Permcath PPx - gi/dvt DNR Discussed with family at bedside. Explained poor prognosis. Patient DNR. Brain exam when body temp corrected. Critical Care Time: 90 mins
[2018-07-28] MEDS ORDERED: Norepinephrine 16MCG/ML IVPRE* 4,000 MCG/250 ML BAG IV ONE (10:54)
[2018-07-28] MEDS ORDERED: Norepinephrine 16MCG/ML IVPRE* 4,000 MCG/250 ML BAG IV SCH (11:00)
[2018-07-28] MEDS ORDERED: Phytonadione 10 mg in 50 mL NS over 30 min IV ONE (11:15)
--- NOTE | 2018-07-28 11:35 | RAD ---
HISTORY: unresponsive COMPARISONS: July 27, 2018 VIEWS: 1: frontal AP view of the chest at 10:30 AM FINDINGS: LINES AND TUBES: An endotracheal tube is noted with the tip overlying the trachea between the clavicles and the rosa. A gastric tube is noted, with the tip at the level of the GE junction. A prosthetic heart valve is noted. Left-sided pacemaker is noted. A left central venous catheter is noted with the tip overlying the right atrium... CARDIOMEDIASTINAL SILHOUETTE: The cardiac silhouette is enlarged. The cardiomediastinal silhouette is otherwise normal for portable technique. PLEURA: There are small bilateral pleural effusions. LUNG PARENCHYMA: There is patchy alveolar opacification of the lung bases bilaterally. There is enlargement of the pulmonary vasculature. ABDOMEN: The upper abdomen is clear. There is no subphrenic gas. BONES AND SOFT TISSUES: No bone or soft tissue abnormalities are noted. IMPRESSION: 1. LINES AND TUBES ABOVE. 2. CARDIOMEGALY. 3. SMALL BILATERAL EFFUSIONS WITH BIBASILAR ATELECTASIS VERSUS EARLY CONSOLIDATION. 4. PULMONARY VESSEL CONGESTION.
[2018-07-28] MEDS: Chlorhexidine MOUTHWASH 0.12%* 15 ML UDC TOPICAL SCH ×3 (16:21→23:21)
--- NOTE | 2018-07-28 22:48 | CONS ---
CONSULTATION NOTE: DATE OF CONSULT: 07/28/18 HISTORY OF PRESENT ILLNESS: The patient is a very pleasant 67-year-old gentleman with history of end-stage renal disease, on hemodialysis; hypertension ; hyperlipidemia; GERD; hepatitis C; DVT; AFib, on anticoagulation; chronic pancreatitis; coronary artery disease, status post CABG with congestive heart failure; who was reported to have sustained an episode of syncope and cardiac arrest. The patient was reported to be at home on the toilet when he became unresponsive. The patient was resuscitated by EMS, was brought to the emergency room and he was intubated. CT scan of the head revealed a large right posterior fossa cerebellar hemorrhage with extension to the brain stem, brain stem compression, and extension to the intraventricular space and hydrocephalus. The patient was admitted to the ICU and I was requested to see the patient because of the significant findings. The patient's clinical examination was extremely poor at the presentation with pupils fixed and dilated without corneal or gag reflex or any motor movement. History was obtained by the patient's chart as well as the patient's family. PAST MEDICAL HISTORY: Hypertension; hyperlipidemia; GERD; hepatitis C; DVT; atrial fibrillation, on anticoagulation medication; chronic pancreatitis; coronary artery disease, status post CABG; congestive heart failure; end-stage renal disease, on hemodialysis. PAST SURGICAL HISTORY: AV fistula, mitral valve repair, tricuspid valve repair , appendectomy. ALLERGIES: ASPIRIN and DILAUDID. FAMILY HISTORY: Not available. SOCIAL HISTORY: Tobacco negative, alcohol negative, recreational drug use negative. Of note, the patient is reported to have several admission in the ICU in the past with intractable hypertension. PHYSICAL EXAM: The patient is intubated. Has received no sedation recently. He does not open eyes. Apparently, he has no motor response to painful stimuli. His pupils are fixed and dilated. He has no cornea and no gag reflex. He has no cough reflex. Deep tendon reflexes +2 in upper extremities. Lower extremities not listed. DIAGNOSTIC STUDIES/LAB DATA: INR 2.75, creatinine 9.01, and lactic acid 5.1. CT scan of the brain that revealed a very large ICH with extension into the brain with brain stem compression as well as extension in the ventricular space as well as hydrocephalus. ASSESSMENT: The patient is a very pleasant 67-year-old gentleman who sustained a syncopal episode and cardiac arrest with significant findings consistent with large posterior fossa hemorrhage with involvement of the brain stem, hydrocephalus, and intraventricular hemorrhage. PLAN: The patient at this point has a catastrophic intracranial hemorrhage. His ICH score is 5, which carries a mortality rate of 100% while he has no brain stem reflexes in his clinical exam. Discussed in extent with the patient' s family regarding the patient's condition, clinical findings, as well as imaging findings. The patient's family understood that this most likely might be a terminal event. His prognosis is extremely poor. At this point, agreed with conservative treatment without surgical intervention. The patient was placed on DNR status earlier by his brother and will be considered as a candidate for formal brain exam once his temperature has normalized. Thank your for allowing us to participate in the care of this patient. Please do not hesitate to contact our office in case you have any further questions or concerns regarding the care of this patient. [id number]/CPS #: [id number] STEPHANIE
[2018-07-29] MEDS: Chlorhexidine MOUTHWASH 0.12%* 15 ML UDC TOPICAL SCH ×3 (02:59→11:52)
--- NOTE | 2018-07-29 08:59 | PN ---
Progress Note - Progress Note Date of Service: 07/29/18 Note: Brain Exam Date: 07/29/18 Time: 8:30 AM Vital Signs: Temp Pulse Resp BP Pulse Ox 97.5 F 65 24 101/61 97 07/29/18 06:25 07/29/18 06:25 07/29/18 05:35 07/29/18 06:25 07/29/18 07:25 PE Gen - intubated, unresponsive HEENT - NCAT, pupils fixed and dilated CV - s1/s2, +murmur Lungs - cta, +ronchi Abd - soft Ext - +edema Neuro - unresponsive Etiology of Irreversible Coma Intracerebral hemorrhage with obstructive hydrocephalus Responsiveness/Movement Unresponsive - Yes Absent movement (no spontaneous movement, no response to painful stimuli, no posturing) - Yes Evidence of absent brainstem function Absent pupillary light reflex - yes Absent corneal/gag/cough reflex - Yes Absent oculovestibular reflex - yes Apnea Test ABG Pre-Apnea Test - pH 7.5 pCO2 40 pO2 140 HCO3 30.7 O2 Sat 99.7% ABG Post-Apnea Test - pH 7.33 pCO2 65 pO2 260 HCO3 30.2 O2 Sat 99.9% Exam consistent with brain . Nuclear Medicine Brain flow ordered as confirmatory test.
[2018-07-29] MEDS ORDERED: Lansoprazole susp Kit 3 MG/ML (30 MG = 10 ML) PO SCH (09:00)
--- NOTE | 2018-07-29 10:49 | DS ---
Patient Name: Pato Templeton Admission Date: 07/28/18 Discharge Date: 07/29/18 Attending Physician: Parveen White Primary Care Physician: Marielena Vargas Referring Physician: Oskar Reyes Consulting Physician(s): Keshav Sam (Neuro Surgery) Condition on Discharge: Final Diagnosis: Intracerebral hemorrhage (Acute) I61.4 Obstructive hydrocephalus (Acute) G91.1 Coronary artery disease (Chronic) I25.10 End stage renal failure on dialysis (Chronic) N18.6, Z99.2 Acute respiratory failure (acute) J96.01 Procedures: NM Brain Flow 07/29 IMPRESSION: ABSENCE OF CEREBRAL PERFUSION ON FLOW AND DELAYED SCINTIGRAPHIC IMAGES CONSISTENT WITH THE IMAGING FINDINGS OF BRAIN . CT Head 07/28 IMPRESSION: 1. THERE HAS BEEN INTERVAL DEVELOPMENT OF AN APPROXIMATELY 6 CM INTRAPARENCHYMAL HEMORRHAGE CENTERED WITHIN THE RIGHT CEREBELLUM WITH INTRAVENTRICULAR DISTENTION OF HEMORRHAGE. 2. THERE IS EFFACEMENT OF THE BASAL CISTERNS AND FORAMEN MAGNUM WITH SUBFALCINE SHIFT TO THE LEFT POSTERIORLY. 3. THERE IS VENTRICULOMEGALY CONSISTENT WITH OBSTRUCTIVE HYDROCEPHALUS. 4. FINDINGS WERE DISCUSSED WITH DR. REYES IN THE EMERGENCY DEPARTMENT AT APPROXIMATELY 10:30 AM ON JULY 28, 2018 CXR 07/28 IMPRESSION: 1. LINES AND TUBES ABOVE. 2. CARDIOMEGALY. 3. SMALL BILATERAL EFFUSIONS WITH BIBASILAR ATELECTASIS VERSUS EARLY CONSOLIDATION. 4. PULMONARY VESSEL CONGESTION. History of Present Illness 67M with htn, hld, gerd, hcv, h/o dvt, afib on ac, chronic pancreatitis, cad s/ p cabg, chf (EF 35%), esrd on hd presents after cardiac arrest. The patient was at home on the toilet when he became unresponsive. EMS was called who could not find a pulse. He was given cpr and had ROSC. He was brought to the ER where he was intubated. He went to the ct scan and he was found to have a catastrophic intracerebral hemorrhage with obstructive hydrocephalus. The patient was admitted to the ICU. Laboratory/Data Laboratory Results - last 24 hr 07/28/18 07/29/18 07/29/18 09:43 04:30 04:30 Patient Temperature ABG pH ABG pH (Temp Correct) ABG pCO2 ABG pCO2 (Temp Corrct ABG pO2 ABG pO2 (Temp Correct ABG HCO3 ABG O2 Saturation ABG Base Excess Respiration Rate O2 Delivery Device Ventilator Type Vent Mode FiO2 Inspiratory Time PEEP Pressure Support Pressure Control EPAP IPAP BiPAP Ammonia 39 B-Natriuretic Peptide 5459 H TSH 9.92 H 07/29/18 07/29/18 09:10 10:10 Patient Temperature 36.6 Not Reportable ABG pH 7.50 H 7.33 L ABG pH (Temp Correct) Not Reportable Not Reportable ABG pCO2 40 65 H ABG pCO2 (Temp Corrct Not Reportable Not Reportable ABG pO2 140 H 260 H ABG pO2 (Temp Correct Not Reportable Not Reportable ABG HCO3 30.7 30.2 ABG O2 Saturation 99.7 H 99.9 H ABG Base Excess 7.4 H 6.8 H Respiration Rate 12 Not Reportable O2 Delivery Device vent 6lpm nc Ventilator Type 450 Not Reportable Vent Mode cmv Not Reportable FiO2 50 Not Reportable Inspiratory Time 1.0 Not Reportable PEEP 5 Not Reportable Pressure Support Not Reportable Not Reportable Pressure Control Not Reportable Not Reportable EPAP Not Reportable Not Reportable IPAP Not Reportable Not Reportable BiPAP Not Reportable Not Reportable Ammonia B-Natriuretic Peptide TSH Hospital Course The patient was admitted to the ICU. His physical exam was consistent with brain . An apnea test was performed which supported the diagnosis. A nuclear medicine brain flow study was done showing absence of cerebral perfusion. Brain was confirmed on 07/29/18 at 1139am. The patients family was updated and the patient was terminally extubated. Discharge Medications None Discharge Instructions None Follow up Appointments None Code Status
--- NOTE | 2018-07-29 11:42 | RAD ---
HISTORY: Evaluate for brain following cardiac arrest COMPARISONS: PET/CT dated July 28, 2018 TECHNIQUE: Frontal and lateral images were obtained with delayed images in the frontal and lateral projections of the head after the administration of 20.2 mCi of technetium 99m DTPA. FINDINGS: There is absence of cerebral perfusion. There is increased external carotid artery perfusion. IMPRESSION: ABSENCE OF CEREBRAL PERFUSION ON FLOW AND DELAYED SCINTIGRAPHIC IMAGES CONSISTENT WITH THE IMAGING FINDINGS OF BRAIN .
[2018-07-29 16:58] VITALS: BP 119/62
== END 2018-07-29 11:39 | disposition expired | DRG 64 ==
LOC: ED 09:28 → ICU 09:52
PROVIDERS: ADMIT Internal Medicine; ATTEND Internal Medicine
PROC: 0BH17EZ Insertion of Endotracheal Airway into Trachea, Via Natural or Artificial Opening (ICD-10-PCS; principal; 2018-07-28)
PROC: 5A1935Z Respiratory Ventilation, Less than 24 Consecutive Hours (ICD-10-PCS; 2018-07-28)
PROC: 0BP1XDZ Removal of Intraluminal Device from Trachea, External Approach (ICD-10-PCS; 2018-07-29)
DX: I61.9 Nontraumatic intracerebral hemorrhage, unspecified (principal); N18.6 End stage renal disease; J96.01 Acute respiratory failure with hypoxia; G91.1 Obstructive hydrocephalus; I13.2 Hypertensive heart and chronic kidney disease with heart failure and with stage 5 chronic kidney disease, or end stage renal disease; K86.1 Other chronic pancreatitis; I25.10 Atherosclerotic heart disease of native coronary artery without angina pectoris; I50.9 Heart failure, unspecified; I73.9 Peripheral vascular disease, unspecified; J44.9 Chronic obstructive pulmonary disease, unspecified; K74.60 Unspecified cirrhosis of liver; K21.9 Gastro-esophageal reflux disease without esophagitis; I48.91 Unspecified atrial fibrillation; B19.20 Unspecified viral hepatitis C without hepatic coma; R68.0 Hypothermia, not associated with low environmental temperature; Z66 Do not resuscitate; M19.90 Unspecified osteoarthritis, unspecified site; E78.5 Hyperlipidemia, unspecified; G43.909 Migraine, unspecified, not intractable, without status migrainosus; F41.9 Anxiety disorder, unspecified; F32.9 Major depressive disorder, single episode, unspecified; G89.29 Other chronic pain; H40.9 Unspecified glaucoma; Z87.11 Personal history of peptic ulcer disease; Z88.6 Allergy status to analgesic agent; Z88.8 Allergy status to other drugs, medicaments and biological substances; Z86.718 Personal history of other venous thrombosis and embolism; Z95.810 Presence of automatic (implantable) cardiac defibrillator; Z87.01 Personal history of pneumonia (recurrent); Z99.2 Dependence on renal dialysis; Z86.14 Personal history of Methicillin resistant Staphylococcus aureus infection; Z87.891 Personal history of nicotine dependence; Z82.49 Family history of ischemic heart disease and other diseases of the circulatory system; Z82.3 Family history of stroke; Z95.1 Presence of aortocoronary bypass graft
CPT/HCPCS: 36415; 36600; 70450; 71045; 71046; 78606; 80053; 80320; 80329; 82140; 82550; 82553; 82803; 83605; 83735; 83880; 84100; 84145; 84443; 84484; 85025; 85610; 86140; 87040; 93005; 94003; 96374; 96375; 99282; 99283; 99285; A9270-GY; A9539; G0480; J0610; J2270; J2405; J3430